=== PATIENT | female | born 1985 | race Hispanic/Latino ===

== ENCOUNTER 2017-07-26 15:32 | Emergency (ER) | payer OTHER ==
[2017-07-26 17:04] LABS: Urine Blood NEGATIVE (NEG); Urine Glucose NEGATIVE (NEG); Urine Protein NEGATIVE (NEG); Urine Specific Gravity 1.025 (1.005-1.030)
--- NOTE | 2017-07-26 18:16 | RAD REPORT ---
EXAM DESCRIPTION: US - Transvaginal OB - 07/26/2017 6:09 pm CLINICAL HISTORY: Pelvic pain, cramping. COMPARISON: 07/23/2017 FINDINGS: A single gestational sac is seen within the uterus. Within the sac is a single pole with crown-rump length measuring 4 mm corresponding to 6 weeks 1 day gestational age. GLORIA 03/20/2018 Cardiac activity is normal measuring 96 BPM. No unexpected findings. Normal Doppler flow is seen to both ovaries. IMPRESSION: Single live early intrauterine gestation as detailed above.
[2017-07-26 18:27] LABS: Absolute Lymphocytes (CBC) 2.6 K/uL (0.7-4.9); Absolute Monocytes 0.7 K/uL (0.1-1.3); Absolute Neutrophil 8.4 K/uL (1.8-8.0); Basophils % 0.3 % (0-1.3); Eosinophils % 1.4 % (0-4.4); Hematocrit 41.3 % (36.0-45.0); Lymphocytes % 21.8 % (15.3-44.8); MCV 91.1 fL (80-100); MPV 10.5 fL (7.6-11.3); Monocytes % 6.1 % (3.3-12.3); RBC Red Blood Cell Count 4.53 M/uL (3.86-4.86)
[2017-07-26 18:40] LABS: Bicarbonate 24 mEq/L (21-31); Glucose Level 96 mg/dL (65-120); Potassium 3.5 mEq/L (3.6-5.0); Sodium Level 132 mEq/L (135-145)
[2017-07-26 18:41] LABS: BUN Blood Urea Nitrogen 8 mg/dL (6-20)
--- NOTE | 2017-07-26 18:59 | EDPHYS ---
Physician Documentation [facility] Name: Snow Argueta Age: 31 yrs Sex: Female : 1985 Arrival Date: 07/26/2017 Time: 15:33 Bed 16 Private MD: Martín Crane B ED Physician Matthew Ramirez HPI: 07/26 20:14 This 31 yrs old Female presents to ER via Ambulatory with complaints of Pelvic snw Pain - 6 Wks Preg, Nausea/Vomiting. 20:14 The patient presents with + , + lower abdominal cramping. Onset: The snw symptoms/episode began/occurred gradually, 2 day(s) ago, and became persistent. Modifying factors: the symptoms are aggravated by nausea. Associated signs and symptoms: Pertinent positives: cramping, nausea. Severity of symptoms: At their worst the symptoms were moderate, severe. The patient has experienced a previous episode. The patient has been recently seen by a physician: Dr. Crane with different complaint(s). 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 - Social history:: Smoking status: Patient/guardian denies using tobacco. ROS: 20:13 Constitutional: Negative for fever, chills, and weight loss, Eyes: Negative for injury, snw pain, redness, and discharge, ENT: Negative for injury, pain, and discharge, Neck: Negative for injury, pain, and swelling, Cardiovascular: Negative for chest pain, palpitations, and edema, Respiratory: Negative for shortness of breath, cough, wheezing, and pleuritic chest pain, Back: Negative for injury and pain, : Negative for injury, bleeding, discharge, and swelling, MS/Extremity: Negative for injury and deformity, Skin: Negative for injury, rash, and discoloration, Neuro: Negative for headache, weakness, numbness, tingling, and seizure. 20:13 Abdomen/GI: Positive for nausea, abdominal cramps. Exam: 20:13 Constitutional: This is a well developed, well nourished patient who is awake, alert, snw and in no acute distress. Head/Face: Normocephalic, atraumatic. Eyes: Pupils equal round and reactive to light, extra-ocular motions intact. Lids and lashes normal. Conjunctiva and sclera are non-icteric and not injected. Cornea within normal limits. Periorbital areas with no swelling, redness, or edema. ENT: Nares patent. No nasal discharge, no septal abnormalities noted. Tympanic membranes are normal and external auditory canals are clear. Oropharynx with no redness, swelling, or masses, exudates, or evidence of obstruction, uvula midline. Mucous membranes moist. Neck: Trachea midline, no thyromegaly or masses palpated, and no cervical lymphadenopathy. Supple, full range of motion without nuchal rigidity, or vertebral point tenderness. No Meningismus. Chest/axilla: Normal chest wall appearance and motion. Nontender with no deformity. No lesions are appreciated. Cardiovascular: Regular rate and rhythm with a normal S1 and S2. No gallops, murmurs, or rubs. Normal PMI, no JVD. No pulse deficits. Respiratory: Lungs have equal breath sounds bilaterally, clear to auscultation and percussion. No rales, rhonchi or wheezes noted. No increased work of breathing, no retractions or nasal flaring. 20:13 Back: No spinal tenderness. No costovertebral tenderness. Full range of motion. Skin: Warm, dry with normal turgor. Normal color with no rashes, no lesions, and no evidence of cellulitis. MS/ Extremity: Pulses equal, no cyanosis. Neurovascular intact. Full, normal range of motion. Neuro: Awake and alert, GCS 15, oriented to person, place, time, and situation. Cranial nerves II-XII grossly intact. Motor strength 5/5 in all extremities. Sensory grossly intact. Cerebellar exam normal. Normal gait. 20:13 Abdomen/GI: Inspection: abdomen appears normal, Bowel sounds: normal, Palpation: abdomen is soft and non-tender. Vital Signs: 15:55 BP 154 / 87; Pulse 90; Resp 16; Temp 98.1; Pulse Ox 100% on R/A; Weight 96.16 kg; hb Height 5 ft. 6 in. (167.64 cm); Pain 7/10; 17:27 BP 138 / 82; Pulse 86; Resp 16; Pulse Ox 99% on R/A; rb1 18:53 BP 119 / 61; Pulse 83; Resp 17; Pulse Ox 100% ; rb1 15:55 Body Mass Index 34.22 (96.16 kg, 167.64 cm) hb MDM: 16:30 Patient medically screened. snw 17:35 ED course: to US via w/c. snw 20:13 Data reviewed: vital signs, nurses notes. Data interpreted: Pulse oximetry: on room air snw is 100 %. Interpretation: normal. 07/26 16:00 Order name: Urine Culture snw 07/26 16:00 Order name: Urine Microscopic Only; Complete Time: 19:19 snw 07/26 16:53 Order name: Urine Dipstick--Ancillary (enter results); Complete Time: 17:06 bd 07/26 16:53 Order name: Urine --Ancillary (enter results); Complete Time: 17:06 bd 07/26 17:13 Order name: Quantitative Hcg; Complete Time: 19:19 snw 07/26 17:13 Order name: Abo/rh Typing; Complete Time: 19:02 snw 07/26 16:00 Order name: Urine Test (obtain specimen); Complete Time: 16:53 snw 07/26 16:00 Order name: Urine Dipstick-Ancillary (obtain specimen); Complete Time: 16:53 snw 07/26 17:13 Order name: Basic Metabolic Panel; Complete Time: 19:19 snw 07/26 17:13 Order name: CBC with Diff; Complete Time: 18:35 snw 07/26 17:13 Order name: IV Saline Lock; Complete Time: 18:39 snw 07/26 17:13 Order name: US Transvaginal Ob; Complete Time: 18:21 snw 07/26 17:13 Order name: Labs collected and sent; Complete Time: 18:39 snw 07/26 17:13 Order name: NPO; Complete Time: 17:33 snw Administered Medications: 18:52 Drug: Phenergan 12.5 mg Route: IVP; Site: left antecubital; rb1 19:24 Follow up: Response: No adverse reaction; Medication administered at discharge. tl2 18:52 Drug: NS 0.9% 250 ml Route: IV; Rate: bolus; Site: left antecubital; rb1 19:24 Follow up: IV Status: Completed infusion tl2 Disposition: 07/27 07:04 Co-signature as Attending Physician, Matthew Ramirez MD. rn Disposition: 07/26/17 18:59 Discharged to Home. Impression: Nausea and vomiting, related conditions, unspecified. - Condition is Stable. - Discharge Instructions: Nausea and Vomiting, First Trimester of . - Prescriptions for promethazine 25 mg Oral Tablet - take 1 tablet by ORAL route every 6 hours As needed; 20 tablet. - Medication Reconciliation Form, Thank You Letter, Antibiotic Education, Prescription Opioid Use form. - Follow up: Martín Crane MD; When: 5 - 6 days; Reason: Recheck today's complaints, Continuance of care, Re-evaluation by your physician. Follow up: Emergency Department; When: As needed; Reason: Worsening of condition. Signatures: Dispatcher [employer] EDMO Carolina Farnsworth, DENTAL INSURANCE BILLER-C DENTAL INSURANCE BILLER-Csnw Matthew Ramirez MD MD rn Barber, Rebecca, RN RN rb1 Cyndi Ritchie RN RN Kathy Wilson RN RN tl2
--- NOTE | 2017-07-26 18:59 | ER ---
Nurse's Notes [facility] Name: Snow Argueta Age: 31 yrs Sex: Female : 1985 Arrival Date: 07/26/2017 Time: 15:33 Bed 16 Private MD: Martín Crane B Diagnosis: Nausea and vomiting; related conditions, unspecified Presentation: 07/26 15:51 Presenting complaint: Patient states: Lower abdominal cramping and N/V since yesterday. hb Denies vaginal bleeding/fever. Pt reports she is 6 weeks , had US done last week, possible miscarriage, due to have HCG level rechecked Friday. Transition of care: patient was not received from another setting of care. Onset of symptoms was July 25, 2017. Care prior to arrival: None. 15:51 Method Of Arrival: Ambulatory hb 15:51 Acuity: LEONEL 3 hb Triage Assessment: 16:30 GI: Reports cramping. 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 - Social history:: Smoking status: Patient/guardian denies using tobacco. Screenin:30 Abuse screen: Denies threats or abuse. Nutritional screening: No deficits noted. rb1 Tuberculosis screening: No symptoms or risk factors identified. Fall Risk None identified. Assessment: 16:30 General: Appears in no apparent distress. comfortable, Behavior is calm, cooperative, rb1 Denies fever. Pain: Complains of pain in suprapubic area Pain currently is 5 out of 10 on a pain scale. Quality of pain is described as crampy, Pain began 1 day ago. Neuro: Level of Consciousness is awake, alert, obeys commands, Oriented to person, place, time, situation. Cardiovascular: Capillary refill < 3 seconds is brisk in bilateral fingers. Respiratory: Airway is patent Respiratory effort is even, unlabored, Respiratory pattern is regular, symmetrical. GI: Abdomen is non-distended. : No signs and/or symptoms were reported regarding the genitourinary system. Derm: Skin is pink, warm \T\ dry. Musculoskeletal: Range of motion: intact in all extremities. 17:25 Reassessment: Patient appears in no apparent distress at this time. No changes from rb1 previously documented assessment. Pt. went to US. 19:09 Reassessment: Patient appears in no apparent distress at this time. Patient and/or tl2 family updated on plan of care and expected duration. Pain level reassessed. Patient is alert, oriented x 3, equal unlabored respirations, skin warm/dry/pink. Awaiting phenergan infusion to complete before discharge. Pt verbalized understanding of discharge instructions, need for follow up and prescription usage. Vital Signs: 15:55 BP 154 / 87; Pulse 90; Resp 16; Temp 98.1; Pulse Ox 100% on R/A; Weight 96.16 kg; hb Height 5 ft. 6 in. (167.64 cm); Pain 7/10; 17:27 BP 138 / 82; Pulse 86; Resp 16; Pulse Ox 99% on R/A; rb1 18:53 BP 119 / 61; Pulse 83; Resp 17; Pulse Ox 100% ; rb1 15:55 Body Mass Index 34.22 (96.16 kg, 167.64 cm) hb ED Course: 15:33 Patient arrived in ED. as 15:33 Martín Crane MD is Private Physician. as 15:51 Arm band placed on right wrist. hb 15:54 Triage completed. hb 16:30 Carolina Farnsworth FNP-C [facility]. snw 16:30 Matthew Ramirez MD is Attending Physician. snw 16:30 Patient has correct armband on for positive identification. Bed in low position. Call rb1 light in reach. Side rails up X 1. Pulse ox on. NIBP on. 16:42 Irlanda Canchola, RN is Primary Nurse. rb1 17:49 Ultrasound completed. Patient tolerated well. Notified PROCESS TECH/GERARD conley. sg3 17:54 Urine Microscopic Only Sent. rb1 17:57 Urine Culture Sent. rb1 18:58 Martín Crane MD is Referral Physician. snw 19:09 No provider procedures requiring assistance completed. IV is patent, is intact, with tl2 fluids infusing freely, 22 g L AC placed during previous shift. 19:24 IV discontinued, intact, bleeding controlled, No redness/swelling at site. Pressure tl2 dressing applied. Administered Medications: 18:52 Drug: Phenergan 12.5 mg Route: IVP; Site: left antecubital; rb1 19:24 Follow up: Response: No adverse reaction; Medication administered at discharge. tl2 18:52 Drug: NS 0.9% 250 ml Route: IV; Rate: bolus; Site: left antecubital; rb1 19:24 Follow up: IV Status: Completed infusion tl2 Outcome: 18:59 Discharge ordered by MD. szymanski 19:09 Discharged to home ambulatory, with family. tl2 19:09 Condition: stable 19:09 Discharge instructions given to patient, family, Instructed on discharge instructions, follow up and referral plans. medication usage, Demonstrated understanding of instructions, follow-up care, medications, Prescriptions given X 1. 19:24 Patient left the ED. tl2 Signatures: Dispatcher [employer] EDTX Carolina Farnsworth, PAYMENT ANALYST-C PAYMENT ANALYST-CsnDee Dee Sánchez Rebecca, RN RN rb1 Cyndi Ritchie, EBONIE RN Kathy Wilson RN RN tl2 Sabrina Tyler sg3 Corrections: (The following items were deleted from the chart) 18:25 18:09 In radiology for Transvaginal Ob+US.EMELI. PRANAYTX sg3
[2017-07-26 19:05] LABS: Urine Bacteria <20 /HPF (<20); Urine Culture Reflex Order NOT NEEDED; Urine Mucus NS /HPF (NONE SEEN); Urine RBC <5 /HPF (NONE SEEN)
[2017-07-26] MEDS ORDERED: PROMETHAZINE 25 MG/ML VIAL ONE (19:05)
[2017-07-26] MEDS ORDERED: NA CHLORIDE 0.9% 250 ML ONE (19:05)
[2017-07-26 19:28] VITALS: TEMP 98.1
[2017-07-26 19:30] VITALS: BP 119/61; O2SAT 100
== END 2017-07-26 19:24 | disposition home or self-care (01) ==
LOC: ER 15:32
DX: O21.9 Vomiting of pregnancy, unspecified (principal); Z3A.01 Less than 8 weeks gestation of pregnancy; Z88.1 Allergy status to other antibiotic agents; Z91.040 Latex allergy status; Z91.041 Radiographic dye allergy status; Z91.048 Other nonmedicinal substance allergy status
CPT/HCPCS: 36415; 76817; 80048; 81003; 81015; 81025; 84702; 85025; 86900; 86901; 87086; 87088; 96361; 96365; 96374; 96375; 99284; J2550

== ENCOUNTER 2017-08-17 22:36 | Emergency (ER) | payer OTHER ==
[2017-08-17] MEDS ORDERED: ACETAMINOPHEN 325 MG TABLET ONE (23:01)
[2017-08-17] MEDS ORDERED: NA CHLORIDE 0.9% 1,000 ML ONE (23:01)
[2017-08-17 23:18] LABS: Urine Blood NEGATIVE (NEG); Urine Glucose NEGATIVE (NEG); Urine Protein NEGATIVE (NEG); Urine Specific Gravity 1.015 (1.005-1.030)
[2017-08-17 23:41] LABS: Absolute Lymphocytes (CBC) 2.5 K/uL (0.7-4.9); Absolute Monocytes 0.7 K/uL (0.1-1.3); Basophils % 0.2 % (0-1.3); Hematocrit 38.5 % (36.0-45.0); MCH 30.6 pg (27.0-35.0); MCV 90.4 fL (80-100); MPV 10.9 fL (7.6-11.3); Monocytes % 5.9 % (3.3-12.3); RBC Red Blood Cell Count 4.26 M/uL (3.86-4.86)
[2017-08-17 23:52] LABS: Bicarbonate 23 mEq/L (21-31); Glucose Level 106 mg/dL (65-120); Potassium 3.4 mEq/L (3.6-5.0); Sodium Level 134 mEq/L (135-145)
[2017-08-17 23:53] LABS: BUN Blood Urea Nitrogen 11 mg/dL (6-20)
[2017-08-18] MEDS ORDERED: PROMETHAZINE 25 MG/ML VIAL ONE (00:29)
[2017-08-18] MEDS ORDERED: NA CHLORIDE 0.9% 500 ML ONE (00:29)
--- NOTE | 2017-08-18 01:10 | EDPHYS ---
Physician Documentation [facility] Name: Snow Argueta Age: 31 yrs Sex: Female : 1985 Arrival Date: 08/17/2017 Time: 22:36 Bed 14 Private MD: ED Physician Matthew Ramirez HPI: 08/18 01:06 This 31 yrs old Female presents to ER via Ambulatory with complaints of snw Headache. 01:06 The patient complains of pain to the left side of the back of head and left occipital snw area. The patient describes the headache as unrelenting, sudden. Onset: The symptoms/episode began/occurred suddenly. Associated signs and symptoms: Pertinent positives: dizziness. Severity of symptoms: At its worst the pain was severe, 2100. Headache History: The patient has had previous headaches and this one is different than previous episodes. The symptoms are alleviated by nothing. The patient has not experienced similar symptoms in the past. The patient has been recently seen by a physician: with different complaint(s), In November pt's Leukemia will be in remission for 5 yrs. Had oncology check up last week. 9 wks , N/V for 1 month. 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 Crane Historical: - Allergies: 22:51 Cephalexin; ak1 22:51 CONTRAST DYE; ak1 22:51 Latex, Natural Rubber; ak1 - Home Meds: 22:51 Nexium Oral [Active]; ak1 - PMHx: 22:51 GERD; Leukemia; Endometrosis; ak1 - PSHx: 22:51 laproscopic surgery for endometriosis; D \T\ C; Appendectomy; ak1 - Immunization history:: Adult Immunizations unknown. - Social history:: Smoking status: Patient/guardian denies using tobacco. ROS: 08/18 01:06 Constitutional: Negative for fever, chills, and weight loss, Eyes: Negative for injury, snw pain, redness, and discharge, ENT: Negative for injury, pain, and discharge, Neck: Negative for injury, pain, and swelling, Cardiovascular: Negative for chest pain, palpitations, and edema, Respiratory: Negative for shortness of breath, cough, wheezing, and pleuritic chest pain, Abdomen/GI: Negative for abdominal pain, nausea, vomiting, diarrhea, and constipation, Back: Negative for injury and pain, : Negative for injury, bleeding, discharge, and swelling, MS/Extremity: Negative for injury and deformity, Skin: Negative for injury, rash, and discoloration. Neuro: Positive for headache. Exam: 01:06 Constitutional: This is a well developed, well nourished patient who is awake, alert, snw and in no acute distress. Head/Face: Normocephalic, atraumatic. Eyes: Pupils equal round and reactive to light, extra-ocular motions intact. Lids and lashes normal. Conjunctiva and sclera are non-icteric and not injected. Cornea within normal limits. Periorbital areas with no swelling, redness, or edema. ENT: Nares patent. No nasal discharge, no septal abnormalities noted. Tympanic membranes are normal and external auditory canals are clear. Oropharynx with no redness, swelling, or masses, exudates, or evidence of obstruction, uvula midline. Mucous membranes moist. Neck: Trachea midline, no thyromegaly or masses palpated, and no cervical lymphadenopathy. Supple, full range of motion without nuchal rigidity, or vertebral point tenderness. No Meningismus. Chest/axilla: Normal chest wall appearance and motion. Nontender with no deformity. No lesions are appreciated. Cardiovascular: Regular rate and rhythm with a normal S1 and S2. No gallops, murmurs, or rubs. Normal PMI, no JVD. No pulse deficits. Respiratory: Lungs have equal breath sounds bilaterally, clear to auscultation and percussion. No rales, rhonchi or wheezes noted. No increased work of breathing, no retractions or nasal flaring. Abdomen/GI: Soft, non-tender, with normal bowel sounds. No distension or tympany. No guarding or rebound. No evidence of tenderness throughout. Back: No spinal tenderness. No costovertebral tenderness. Full range of motion. Skin: Warm, dry with normal turgor. Normal color with no rashes, no lesions, and no evidence of cellulitis. MS/ Extremity: Pulses equal, no cyanosis. Neurovascular intact. Full, normal range of motion. Neuro: Awake and alert, GCS 15, oriented to person, place, time, and situation. Cranial nerves II-XII grossly intact. Motor strength 5/5 in all extremities. Sensory grossly intact. Cerebellar exam normal. Normal gait. Vital Signs: 08/17 22:47 BP 131 / 75; Pulse 84; Resp 18; Temp 98.3(O); Pulse Ox 100% on R/A; Weight 97.52 kg ak1 (R); Height 5 ft. 6 in. (167.64 cm) (R); Pain 9/10; 23:51 BP 124 / 72; Pulse 82; Resp 16; Temp 98.3(O); Pulse Ox 100% on R/A; Pain 7/10; ak1 22:47 Body Mass Index 34.70 (97.52 kg, 167.64 cm) ak1 Kameron Coma Score: 08/18 01:06 Eye Response: spontaneous(4). Verbal Response: oriented(5). Motor Response: obeys snw commands(6). Total: 15. MDM: 08/17 22:43 Patient medically screened. snw 08/18 01:06 Data reviewed: vital signs, nurses notes. Data interpreted: Pulse oximetry: on room air snw is 100 %. Interpretation: normal. Counseling: I had a detailed discussion with the patient and/or guardian regarding: the historical points, exam findings, and any diagnostic results supporting the discharge/admit diagnosis, lab results, the need for outpatient follow up, to return to the emergency department if symptoms worsen or persist or if there are any questions or concerns that arise at home. Response to treatment: the patient's symptoms have resolved after treatment, the patient's blood pressure is in an acceptable range, the patient's pain is gone. Special discussion: Based on the history and exam findings, there is no indication for further emergent testing or inpatient evaluation. I discussed with the patient/guardian the need to see the OB Gyne specialist for further evaluation of the symptoms. I discussed with the patient/guardian the need to see the primary care provider for further evaluation of the symptoms. 08/17 22:58 Order name: CBC with Diff; Complete Time: 23:59 snw 08/17 22:58 Order name: Chem 7; Complete Time: 23:59 snw 08/17 22:59 Order name: Urine Dipstick--Ancillary (enter results) rg2 08/17 22:59 Order name: Urine --Ancillary (enter results) rg2 Administered Medications: 08/17 23:12 Drug: NS 0.9% 1000 ml Route: IV; Rate: 1 bolus; Site: right antecubital; ak1 08/18 00:09 Follow up: IV Status: Completed infusion ak1 08/17 23:12 Drug: Tylenol 650 mg Route: PO; ak1 08/18 00:09 Follow up: Response: No adverse reaction; Pain is decreased ak1 00:35 Drug: NS 0.9% 500 ml Route: IV; Rate: bolus; Site: right antecubital; ak1 01:04 Follow up: IV Status: Completed infusion ak1 00:35 Drug: Phenergan 25 mg {Note: placed in 500NS bolus per verbal orders.} Route: IVP; ak1 Site: right antecubital; 01:04 Follow up: Response: No adverse reaction; Pain is decreased ak1 Disposition: 02:39 Co-signature as Attending Physician, Matthew Ramirez MD. rn Disposition: 08/18/17 01:10 Discharged to Home. Impression: Headache. - Condition is Stable. - Discharge Instructions: General Headache Without Cause, Rehydration, Adult. - Prescriptions for promethazine 25 mg Oral Tablet - take 1 tablet by ORAL route every 6 hours As needed; 8 tablet. - Medication Reconciliation Form, Thank You Letter, Antibiotic Education, Prescription Opioid Use form. - Follow up: Private Physician; When: 2 - 3 days; Reason: Recheck today's complaints, Continuance of care, Re-evaluation by your physician. Follow up: Emergency Department; When: As needed; Reason: Worsening of condition. Signatures: Dispatcher [employer] EDCarolina Lim, TIFFANIE-C CRUDE TESTER-Csnw Matthew Ramirez MD MD rn Krenek, Amber, RN RN ak1
--- NOTE | 2017-08-18 01:10 | ER ---
Nurse's Notes [facility] Name: Snow Argueta Age: 31 yrs Sex: Female : 1985 Arrival Date: 08/17/2017 Time: 22:36 Bed 14 Private MD: Diagnosis: Headache Presentation: 08/17 22:48 Presenting complaint: Patient states: headache to back of head since 2100 tonight. pt ak1 c/o increased urination. pt c/o N/V the last month due to being 9 weeks . Transition of care: patient was not received from another setting of care. Onset of symptoms was August 17, 2017. Initial Sepsis Screen: Does the patient meet any 2 criteria? No. Patient's initial sepsis screen is negative. Does the patient have a suspected source of infection? No. Patient's initial sepsis screen is negative. Care prior to arrival: None. 22:48 Method Of Arrival: Ambulatory ak1 22:48 Acuity: LEONEL 4 ak1 Triage Assessment: 22:51 Headache History: Denies prior headaches. General: Appears in no apparent distress. ak1 Behavior is calm, cooperative. Pain: Complains of pain in occipital area Pain currently is 9 out of 10 on a pain scale. Pain began 2 hours ago. Also complains of no other associated symptoms. EENT: No signs and/or symptoms were reported regarding the EENT system. Neuro: Level of Consciousness is awake, alert, obeys commands, Oriented to person, place, time, situation, Inventory Specialist Manager are equal bilaterally Moves all extremities. Gait is steady, Speech is normal, Facial symmetry appears normal. Cardiovascular: No deficits noted. Respiratory: No deficits noted. GI: No signs and/or symptoms were reported involving the gastrointestinal system. : Reports urinary frequency. Derm: No signs and/or symptoms reported regarding the dermatologic system. Musculoskeletal: No signs and/or symptoms reported regarding the musculoskeletal system. 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 Crane Historical: - Allergies: 22:51 Cephalexin; ak1 22:51 CONTRAST DYE; ak1 22:51 Latex, Natural Rubber; ak1 - Home Meds: 22:51 Nexium Oral [Active]; ak1 - PMHx: 22:51 GERD; Leukemia; Endometrosis; ak1 - PSHx: 22:51 laproscopic surgery for endometriosis; D \T\ C; Appendectomy; ak1 - Immunization history:: Adult Immunizations unknown. - Social history:: Smoking status: Patient/guardian denies using tobacco. Screenin:52 Abuse screen: Denies threats or abuse. Denies injuries from another. Nutritional ak1 screening: No deficits noted. Tuberculosis screening: No symptoms or risk factors identified. Fall Risk None identified. Assessment: 23:13 Reassessment: Patient appears in no apparent distress at this time. No changes from ak1 previously documented assessment. Patient is alert, oriented x 3, equal unlabored respirations, skin warm/dry/pink. see triage assessment. 08/18 00:09 Reassessment: Patient appears in no apparent distress at this time. No changes from ak1 previously documented assessment. Patient is alert, oriented x 3, equal unlabored respirations, skin warm/dry/pink. Patient states symptoms have improved. 01:05 Reassessment: Patient appears in no apparent distress at this time. Patient is alert, ak1 oriented x 3, equal unlabored respirations, skin warm/dry/pink. ERP notified pt stated pain has resolved. Patient denies pain at this time. Patient states symptoms have improved. Vital Signs: 08/17 22:47 BP 131 / 75; Pulse 84; Resp 18; Temp 98.3(O); Pulse Ox 100% on R/A; Weight 97.52 kg ak1 (R); Height 5 ft. 6 in. (167.64 cm) (R); Pain 9/10; 23:51 BP 124 / 72; Pulse 82; Resp 16; Temp 98.3(O); Pulse Ox 100% on R/A; Pain 7/10; ak1 22:47 Body Mass Index 34.70 (97.52 kg, 167.64 cm) ak1 Dumas Coma Score: 08/18 01:06 Eye Response: spontaneous(4). Verbal Response: oriented(5). Motor Response: obeys snw commands(6). Total: 15. ED Course: 08/17 22:36 Patient arrived in ED. ds1 22:43 Carolina Farnsworth FNP-C [facility]. snw 22:43 Matthew Ramirez MD is Attending Physician. snw 22:47 Luz Chopra, RN is Primary Nurse. ak1 22:49 Triage completed. ak1 22:52 Patient has correct armband on for positive identification. Bed in low position. Call ak1 light in reach. Side rails up X 1. Pulse ox on. NIBP on. 22:53 Arm band placed on Patient placed in an exam room, on a stretcher, on pulse oximetry, ak1 Patient notified of wait time. 23:13 Inserted saline lock: 20 gauge in right antecubital area, using aseptic technique. ak1 Blood collected. 08/18 00:11 No provider procedures requiring assistance completed. ak1 01:18 IV discontinued, intact, bleeding controlled, No redness/swelling at site. Pressure ak1 dressing applied. Administered Medications: 08/17 23:12 Drug: NS 0.9% 1000 ml Route: IV; Rate: 1 bolus; Site: right antecubital; ak1 08/18 00:09 Follow up: IV Status: Completed infusion ak1 08/17 23:12 Drug: Tylenol 650 mg Route: PO; ak1 08/18 00:09 Follow up: Response: No adverse reaction; Pain is decreased ak1 00:35 Drug: NS 0.9% 500 ml Route: IV; Rate: bolus; Site: right antecubital; ak1 01:04 Follow up: IV Status: Completed infusion ak1 00:35 Drug: Phenergan 25 mg {Note: placed in 500NS bolus per verbal orders.} Route: IVP; ak1 Site: right antecubital; 01:04 Follow up: Response: No adverse reaction; Pain is decreased ak1 Outcome: 01:04 Condition: improved ak1 01:10 Discharge ordered by . snw 01:18 Discharged to home ambulatory, with family. ak1 01:18 Discharge instructions given to patient, family, Instructed on discharge instructions, follow up and referral plans. no drinking with medication, no driving heavy equipment, medication usage, Demonstrated understanding of instructions, follow-up care, medications, Prescriptions given X 1. 01:19 Patient left the ED. ak1 Signatures: Carolina Farnsworth, TELECOMMUNICATIONS CONSULTANT-C TELECOMMUNICATIONS CONSULTANT-Csnw Toya Powers ds1 Luz Chopra, RN RN ak1
[2017-08-18 01:32] VITALS: TEMP 98.3; O2SAT 100
[2017-08-18 01:34] VITALS: BP 124/72
== END 2017-08-18 01:19 | disposition home or self-care (01) ==
LOC: ER 22:36
DX: R51 Headache (principal); Z33.1 Pregnant state, incidental
CPT/HCPCS: 36415; 80048; 81003; 81025; 85025; 96361; 96374; 99284; J2550; J7030

== ENCOUNTER 2017-12-05 20:51 | Emergency (ER) | payer OTHER ==
[2017-12-05 21:47] LABS: Absolute Lymphocytes (CBC) 1.7 K/uL (0.7-4.9); Absolute Monocytes 0.8 K/uL (0.1-1.3); Absolute Neutrophil 9.3 K/uL (1.8-8.0); Basophils % 0.2 % (0-1.3); Eosinophils % 2.1 % (0-4.4); Hematocrit 33.5 % (36.0-45.0); Lymphocytes % 13.7 % (15.3-44.8); MCH 31.6 pg (27.0-35.0); MCV 90.6 fL (80-100); MPV 10.2 fL (7.6-11.3); Monocytes % 6.5 % (3.3-12.3); RBC Red Blood Cell Count 3.69 M/uL (3.86-4.86)
[2017-12-05 21:57] LABS: Urine Blood NEGATIVE (NEG); Urine Glucose NEGATIVE (NEG); Urine Protein NEGATIVE (NEG); Urine pH 6.5 (5.0-7.0)
[2017-12-05 22:10] LABS: ALT/SGPT 15 U/L (12-78); AST/SGOT 12 U/L (15-37); Albumin 2.7 g/dL (3.4-5.0); Alkaline Phosphatase 89 U/L (45-117); BUN Blood Urea Nitrogen 4 mg/dL (7-18); Bicarbonate 25 mmol/L (21-32); Bilirubin Total 0.3 mg/dL (0.2-1.0); Glucose Level 112 mg/dL (74-106); Potassium 3.5 mmol/L (3.5-5.1); Protein, Total 6.3 g/dL (6.4-8.2); Sodium Level 138 mmol/L (136-145)
[2017-12-05] MEDS ORDERED: NA CHLORIDE 0.9% 1,000 ML ONE (22:12)
--- NOTE | 2017-12-05 22:41 | RAD REPORT ---
EXAM DESCRIPTION: RAD - Chest Single View - 12/05/2017 9:42 pm CLINICAL HISTORY: Cough COMPARISON: October 2016 TECHNIQUE: AP portable chest image was obtained 2135 hours . FINDINGS: Lungs are clear. Heart and vasculature are normal. No measurable pleural effusion and no p neumothorax. No gross bony abnormality seen. No acute aortic findings suspected. IMPRESSION: No acute cardiopulmonary process. No significant interval change.
--- NOTE | 2017-12-05 23:03 | ER ---
Nurse's Notes [facility] Name: Snow Argueta Age: 32 yrs Sex: Female : 1985 Arrival Date: 12/05/2017 Time: 20:53 Bed 7 Private MD: Diagnosis: Acute upper respiratory infection, unspecified;Cough; related conditions, unspecified, second trimester; related conditions, unspecified, third trimester Presentation: 12/05 21:00 Presenting complaint: Patient states: fever, cough, congestion since Friday, feeling la1 SOB today. 25 wks , cleared by OB OB SCRUB TECH. Transition of care: patient was not received from another setting of care. Onset of symptoms was December 05, 2017. Risk Assessment: Do you want to hurt yourself or someone else? Patient reports no desire to harm self or others. Initial Sepsis Screen: Does the patient meet any 2 criteria? No. Patient's initial sepsis screen is negative. Does the patient have a suspected source of infection? No. Patient's initial sepsis screen is negative. Care prior to arrival: None. 21:00 Method Of Arrival: Ambulatory la1 21:00 Acuity: LEONEL 3 la1 Historical: - Allergies: 21:01 Cephalexin; la1 21:01 CONTRAST DYE; la1 21:01 Latex, Natural Rubber; la1 - PMHx: 21:01 Endometrosis; GERD; Leukemia; la1 - Immunization history:: Adult Immunizations up to date. - Social history:: Smoking status: Patient/guardian denies using tobacco. - Ebola Screening: : No symptoms or risks identified at this time. - Family history:: pertinent for. Screenin:28 Abuse screen: Denies threats or abuse. Nutritional screening: No deficits noted. tl2 Tuberculosis screening: No symptoms or risk factors identified. Fall Risk None identified. Assessment: 21:15 General: Appears in no apparent distress. uncomfortable, Behavior is calm, cooperative, tl2 appropriate for age. General: Pt reports starting to feel sick 1 hour after glucose test 3 days ago. OB gave her medicine for nausea and vomiting but cough and congestion has continued and she feels like she has the flu. Pain: Denies pain. Neuro: Level of Consciousness is awake, alert, obeys commands, Oriented to person, place, time, situation. Cardiovascular: Denies chest pain, Heart tones S1 S2 present. Respiratory: Reports shortness of breath cough that is hacking, Airway is patent Respiratory effort is even, unlabored, Respiratory pattern is regular, symmetrical, Breath sounds are clear bilaterally. GI: Reports nausea, vomiting. : Denies vaginal bleeding. Derm: Skin is pink, warm \T\ dry. 22:28 Reassessment: Patient appears in no apparent distress at this time. Patient and/or tl2 family updated on plan of care and expected duration. Pain level reassessed. Patient is alert, oriented x 3, equal unlabored respirations, skin warm/dry/pink. Awaiting results. 23:30 Reassessment: Patient appears in no apparent distress at this time. Patient is alert, aa1 oriented x 3, equal unlabored respirations, skin warm/dry/pink. Discussed d/c \T\ f/u instructions with pt; denies questions or concerns at this time. Vital Signs: 21:01 BP 121 / 70; Pulse 93; Resp 16; Temp 97.6(TE); Pulse Ox 99% on R/A; Weight 91.63 kg; la1 Height 5 ft. 6 in. (167.64 cm); 22:24 BP 109 / 59; Pulse 91; Resp 18; Pulse Ox 97% on R/A; tl2 23:30 BP 112 / 72; Pulse 93; Resp 16; Pulse Ox 100% on R/A; aa1 21:01 Body Mass Index 32.60 (91.63 kg, 167.64 cm) la1 Vitals: 22:24 Heart Tones 145. tl2 ED Course: 20:53 Patient arrived in ED. ds1 21:01 Triage completed. la1 21:02 Arm band placed on left wrist. la1 21:15 Rustam Aguirre MD is Attending Physician. lisandra 21:36 Inserted saline lock: 20 gauge in left antecubital area, using aseptic technique. Blood tl2 collected. 21:41 X-ray completed. Portable x-ray completed in exam room. Patient tolerated procedure bb2 well. 21:42 Chest Single View XRAY In Process Unspecified. EDMS 22:24 Kathy Wilson RN is Primary Nurse. tl2 22:28 Patient has correct armband on for positive identification. Bed in low position. Call tl2 light in reach. Side rails up X 1. 23:30 No provider procedures requiring assistance completed. IV discontinued, intact, aa1 bleeding controlled, No redness/swelling at site. Pressure dressing applied. Administered Medications: 22:25 Drug: NS 0.9% 1000 ml Route: IV; Rate: 1 bolus; Site: left antecubital; tl2 23:29 Follow up: IV Status: Completed infusion aa1 23:28 Drug: Zithromax 500 mg Route: PO; aa1 23:28 Follow up: Response: No adverse reaction; Medication administered at discharge. aa1 Outcome: 23:03 Discharge ordered by . lisandra 23:30 Discharged to home ambulatory. aa1 23:30 Condition: good 23:30 Discharge instructions given to patient, Instructed on discharge instructions, follow up and referral plans. medication usage, Demonstrated understanding of instructions, follow-up care, medications, Prescriptions given X 2. 23:32 Patient left the ED. aa1 Signatures: Dispatcher [employer] EDMS Olivia Leon RN RN aa1 Rustam Aguirre MD MD cha Sanford, Demi ds1 Tung Ngo RN RN la1 Kathy Wilson RN RN tl2 Shelley Benavides2
--- NOTE | 2017-12-05 23:04 | EDPHYS ---
Physician Documentation [facility] Name: Snow Argueta Age: 32 yrs Sex: Female : 1985 Arrival Date: 12/05/2017 Time: 20:53 Bed 7 Private MD: ED Physician Rustam Aguirre HPI: 12/05 22:58 This 32 yrs old Female presents to ER via Ambulatory with complaints of Flu lisandra Symptoms - 25 Wks Preg. 22:58 The patient or guardian reports cough. Onset: The symptoms/episode began/occurred 3 lisandra day(s) ago. Modifying factors: The symptoms are alleviated by nothing. the symptoms are aggravated by activity, lying flat. The patient or guardian reports airway noise, flu symptoms, arthralgias, low-grade fever. Onset: The symptoms/episode began/occurred yesterday. Severity of symptoms: At their worst the symptoms were mild, in the emergency department the symptoms are unchanged. Associated signs and symptoms: Pertinent positives: chest pain, sore throat. Modifying factors: The symptoms are alleviated by nothing, the symptoms are aggravated by nothing. Severity of symptoms: At their worst the symptoms were mild in the emergency department the symptoms are unchanged. Associated signs and symptoms: The patient has no apparent associated signs or symptoms. Historical: - Allergies: 21:01 Cephalexin; la1 21:01 CONTRAST DYE; la1 21:01 Latex, Natural Rubber; la1 - PMHx: 21:01 Endometrosis; GERD; Leukemia; la1 - Immunization history:: Adult Immunizations up to date. - Social history:: Smoking status: Patient/guardian denies using tobacco. - Ebola Screening: : No symptoms or risks identified at this time. - Family history:: pertinent for. ROS: 22:58 Constitutional: Negative for fever, chills, and weight loss, Eyes: Negative for injury, lisandra pain, redness, and discharge, ENT: Negative for injury, pain, and discharge, Neck: Negative for injury, pain, and swelling, Cardiovascular: Negative for chest pain, palpitations, and edema, Back: Negative for injury and pain, : Negative for injury, bleeding, discharge, and swelling, MS/Extremity: Negative for injury and deformity, Skin: Negative for injury, rash, and discoloration, Neuro: Negative for headache, weakness, numbness, tingling, and seizure. 22:58 Respiratory: Positive for cough. 22:58 Abdomen/GI: Positive for abdominal distension. Exam: 22:58 Constitutional: This is a well developed, well nourished patient who is awake, alert, lisandra and in no acute distress. Head/Face: Normocephalic, atraumatic. Eyes: Pupils equal round and reactive to light, extra-ocular motions intact. Lids and lashes normal. Conjunctiva and sclera are non-icteric and not injected. Cornea within normal limits. Periorbital areas with no swelling, redness, or edema. ENT: Nares patent. No nasal discharge, no septal abnormalities noted. Tympanic membranes are normal and external auditory canals are clear. Oropharynx with no redness, swelling, or masses, exudates, or evidence of obstruction, uvula midline. Mucous membranes moist. Neck: Trachea midline, no thyromegaly or masses palpated, and no cervical lymphadenopathy. Supple, full range of motion without nuchal rigidity, or vertebral point tenderness. No Meningismus. Chest/axilla: Normal chest wall appearance and motion. Nontender with no deformity. No lesions are appreciated. Cardiovascular: Regular rate and rhythm with a normal S1 and S2. No gallops, murmurs, or rubs. Normal PMI, no JVD. No pulse deficits. Respiratory: Lungs have equal breath sounds bilaterally, clear to auscultation and percussion. No rales, rhonchi or wheezes noted. No increased work of breathing, no retractions or nasal flaring. Back: No spinal tenderness. No costovertebral tenderness. Full range of motion. Skin: Warm, dry with normal turgor. Normal color with no rashes, no lesions, and no evidence of cellulitis. MS/ Extremity: Pulses equal, no cyanosis. Neurovascular intact. Full, normal range of motion. Neuro: Awake and alert, GCS 15, oriented to person, place, time, and situation. Cranial nerves II-XII grossly intact. Motor strength 5/5 in all extremities. Sensory grossly intact. Cerebellar exam normal. Normal gait. Psych: Awake, alert, with orientation to person, place and time. Behavior, mood, and affect are within normal limits. 22:58 Abdomen/GI: Inspection: gravid appearance, is noted, Bowel sounds: normal, Palpation: abdomen is soft and non-tender, Liver: no appreciated palpable abnormalities, Hernia: not appreciated. Vital Signs: 21:01 BP 121 / 70; Pulse 93; Resp 16; Temp 97.6(TE); Pulse Ox 99% on R/A; Weight 91.63 kg; la1 Height 5 ft. 6 in. (167.64 cm); 22:24 BP 109 / 59; Pulse 91; Resp 18; Pulse Ox 97% on R/A; tl2 23:30 BP 112 / 72; Pulse 93; Resp 16; Pulse Ox 100% on R/A; aa1 21:01 Body Mass Index 32.60 (91.63 kg, 167.64 cm) la1 MDM: 21:15 Patient medically screened. [facility] 22:58 Data reviewed: vital signs, nurses notes, lab test result(s), radiologic studies, plain lisandra films. 12/05 21:18 Order name: CBC with Diff; Complete Time: 22:56 [facility] 12/05 21:18 Order name: Comprehensive Metabolic Panel; Complete Time: 22:56 [facility] 12/05 21:18 Order name: Blood Culture Adult (2) [facility] 12/05 21:18 Order name: Urine Culture [facility] 12/05 21:18 Order name: Flu; Complete Time: 22:56 [facility] 12/05 21:43 Order name: Urine Dipstick--Ancillary (enter results); Complete Time: 22:56 rg2 12/05 21:18 Order name: Urine Dipstick-Ancillary (obtain specimen); Complete Time: 21:36 [facility] 12/05 21:18 Order name: Chest Single View XRAY; Complete Time: 22:56 [facility] 12/05 21:18 Order name: FHT's; Complete Time: 22:25 [facility] 12/05 21:43 Order name: Urine --Ancillary (enter results); Complete Time: 22:56 rg2 Administered Medications: 22:25 Drug: NS 0.9% 1000 ml Route: IV; Rate: 1 bolus; Site: left antecubital; tl2 23:29 Follow up: IV Status: Completed infusion aa1 23:28 Drug: Zithromax 500 mg Route: PO; aa1 23:28 Follow up: Response: No adverse reaction; Medication administered at discharge. aa1 Disposition: 12/05/17 23:03 Discharged to Home. Impression: Acute upper respiratory infection, unspecified, Cough, related conditions, unspecified, second trimester, related conditions, unspecified, third trimester. - Condition is Stable. - Discharge Instructions: Upper Respiratory Infection, Adult, Cool Mist Vaporizer, Upper Respiratory Infection, Adult, Kbyg-in-Tesh, Cough, Adult, Jqaa-wm-Oegi, Cough, Adult, Second Trimester of , Qreb-re-Hcqv. - Prescriptions for Zithromax Z- Joby 250 mg Oral Tablet - take 1 tablet by ORAL route as directed for 5 days Day 1 - take two (2) tablets one time. Day 2, 3, 4 , 5 take one (1) tablet once daily.; 6 tablet. - Medication Reconciliation Form, Thank You Letter, Antibiotic Education, Prescription Opioid Use form. - Follow up: Private Physician; When: 2 - 3 days; Reason: Recheck today's complaints, Continuance of care, Re-evaluation by your physician. - Problem is new. - Symptoms have improved. Signatures: Dispatcher [employer] EDMS Olivia Leon RN RN aa1 Rustam Aguirre MD MD cha Attema, Lee RN RN la1 Kathy Wilson RN RN tl2 Corrections: (The following items were deleted from the chart) 23:32 23:03 12/05/2017 23:03 Discharged to Home. Impression: Acute upper respiratory aa1 infection, unspecified; Cough; related conditions, unspecified, second trimester; related conditions, unspecified, third trimester. Condition is Stable. Forms are Medication Reconciliation Form, Thank You Letter, Antibiotic Education, Prescription Opioid Use. Follow up: Private Physician; When: 2 - 3 days; Reason: Recheck today's complaints, Continuance of care, Re-evaluation by your physician. Problem is new. Symptoms have improved. lisandra
[2017-12-05] MEDS ORDERED: AZITHROMYCIN 250 MG TAB ONE (23:25)
[2017-12-05 23:58] VITALS: TEMP 97.6
[2017-12-06 00:16] VITALS: BP 112/72; O2SAT 100
== END 2017-12-05 23:32 | disposition home or self-care (01) ==
LOC: ER 20:51
DX: J06.9 Acute upper respiratory infection, unspecified (principal); Z3A.25 25 weeks gestation of pregnancy; Z85.6 Personal history of leukemia; Z88.1 Allergy status to other antibiotic agents; Z91.040 Latex allergy status; Z91.041 Radiographic dye allergy status; Z91.048 Other nonmedicinal substance allergy status
CPT/HCPCS: 36415; 71045; 80053; 81003; 81025; 85025; 87040; 87086; 87088; 87804; 96360; 99284; J7030

== ENCOUNTER 2018-03-11 04:40 | Inpatient (IN) | payer OTHER ==
[2018-03-11] MEDS ORDERED: METHYLERGONOVINE 0.2MG/ML AMP IM PRN (04:43)
[2018-03-11] MEDS ORDERED: MEPERIDINE HCL 25 MG/0.5 ML IV PRN (04:43)
[2018-03-11] MEDS ORDERED: BUTORPHANOL 1 MG/ML INJ IV PRN (04:43)
[2018-03-11] MEDS ORDERED: Ringers Lactate 1,000 ML IV PRN (04:43)
[2018-03-11] MEDS ORDERED: PENICILLIN 5 MU in NA CHLORIDE 0.9% 100 ML IV ONE (04:43)
[2018-03-11] MEDS ORDERED: PROMETHAZINE 25 MG/ML VIAL IM PRN (04:43)
[2018-03-11] MEDS ORDERED: CARBOPROST TROME 250 MCG/ML IM PRN (04:43)
[2018-03-11] MEDS ORDERED: OXYTOCIN/LR 20 UNIT/1,000 ML BAG IV SCH (05:00)
[2018-03-11] MEDS ORDERED: Ringers Lactate 1,000 ML IV SCH (05:00)
[2018-03-11 05:13] LABS: RPR Titer ND
[2018-03-11 05:17] LABS: Urine Appearance CLOUDY; Urine Blood 2+ (NEG); Urine Color DK YELLOW; Urine Glucose NEGATIVE (NEG); Urine Protein TRACE (NEG)
[2018-03-11 05:18] LABS: Absolute Monocytes 0.8 K/uL (0.1-1.3); Absolute Neutrophil 6.8 K/uL (1.8-8.0); Basophils % 0.2 % (0-1.3); Eosinophils % 0.6 % (0-4.4); Hematocrit 28.8 % (36.0-45.0); Lymphocytes % 20.8 % (15.3-44.8); MCH 27.3 pg (27.0-35.0); MCV 80.8 fL (80-100); MPV 9.6 fL (7.6-11.3); Monocytes % 7.9 % (3.3-12.3); RBC Red Blood Cell Count 3.56 M/uL (3.86-4.86)
[2018-03-11] MEDS ORDERED: PENICILLIN G POT 5 MU/100 ML BAG IV ONE ×2 (05:18→17:27)
[2018-03-11 05:22] LABS: Urine Microscopic Reflex ORDER UMIC
[2018-03-11 05:27] LABS: Urine Bilirubin NEGATIVE (NEG)
[2018-03-11 05:44] VITALS: BMI 34.5
[2018-03-11 06:30] LABS: Calcium Oxalate Crystals- Ur MODERATE (NONE SEEN); Urine Bacteria >50 /HPF (<20); Urine Culture Reflex Order REFLEXED; Urine Mucus 2+ /HPF (NONE SEEN); Urine RBC <5 /HPF (NONE SEEN)
[2018-03-11] MEDS ORDERED: PENICILLIN 2.5 MU in NA CHLORIDE 0.9% 100 ML IV SCH (09:00)
[2018-03-11] MEDS ORDERED: FENTANYL CITR 100 MCG/2 ML IV ONE (09:15)
[2018-03-11] MEDS ORDERED: ROPIVACAINE HCL 100 ML IV PRN (09:15)
[2018-03-11] MEDS ORDERED: ROPIVACAINE HCL 2 MG/ML 100ML IV ONE (09:16)
[2018-03-11] MEDS ORDERED: ROPIVACAINE HCL 20 ML ONE (09:35)
[2018-03-11] MEDS ORDERED: LIDOCAINE 1% MPF 30 ML VIAL ONE (11:16)
--- NOTE | 2018-03-11 11:16 | PREOPHP ---
Date of Admission: 03/11/2018 A 32-year-old, 6, para 3, history of leukemia, now in remission. The patient is by best dipti mates 40 weeks today. She has had numerous ultrasounds, not sure of her dates, but we are estimating that she is at 40 weeks. The patient is 2.5 to 3 cm, vertex, well applied, ivan regularly, r upture of membranes, clear fluid. She has a history of beta strep in the first baby, therefore, peni cillin prophylaxis has already been started. She is Rh positive and immune to Rubella. Full labor t alk given. If the patient delivers expeditiously, we will try to do her tubal today; if not, then to trent morning. The patient will be requesting epidural anesthesia, but we try to get her little bit further along in the labor before that is instituted. Full discussion with the patient. MARISSA/JOSE ELIAS Voice ID: [id number]
[2018-03-11] MEDS ORDERED: LIDOCAINE 2% W/EPI 1:200,000 MPF 20 ML VIAL IM ONE (12:19)
[2018-03-11] MEDS ORDERED: MIDAZOLAM HCL 2 MG/2 ML INJ ONE ×2 (12:46→12:53)
[2018-03-11] MEDS: KETOROLAC 30 MG/ML INJ IV PRN ×2 (15:03→22:58)
--- NOTE | 2018-03-11 18:52 | RAD REPORT ---
EXAM DESCRIPTION: US - Extremity Venous Uni Ltd - 03/11/2018 6:32 pm CLINICAL HISTORY: rule out DVT Leg swelling and edema. COMPARISON: EXT VENOUS UNI LTD dated 10/26/2013 FINDINGS: Left lower extremity venous system was interrogated with Doppler technique. Normal flow, c ompressibility and augmentation was noted. There is no DVT present. IMPRESSION: No evidence of left lower extremity deep venous thrombosis.
[2018-03-11] MEDS ORDERED: ACETAMINOPHEN 500 MG TAB PO PRN (20:50)
[2018-03-11] MEDS ORDERED: IBUPROFEN 200 MG TAB PO PRN (20:50)
[2018-03-11] MEDS ORDERED: DOCUSATE NA/SENNA CONC 1 TAB PO PRN (20:50)
[2018-03-11] MEDS: Oxycodone HCl/Acetaminophen 1 TAB TAB PO PRN (21:06)
--- NOTE | 2018-03-11 22:34 | OP ---
Surgeon: Martín Crane MD This 32-year-old, 6, para 3, 40 weeks' gestation, history of leukemia, now in remission, Rh p ositive, immune to Rubella, positive strep baby with the first , 2.5 to 3 cm on admission, c ontracting regularly, rupture of membranes, clear fluid. The patient received 2 penicillin doses dur ing the labor. After receiving her epidural at 3.5 to 4, went rapidly to complete, second stage of 5 minutes or less. Spontaneous vaginal delivery of an estimated 9-pound male , Apgars 9 and 10. Very loose nuchal cord x1. No episiotomies. No lacerations worthy of suturing. Schultze delivery of the placenta, which was inspected and noted to be intact and normal. Less than 300 cc blood loss . Rh positive and immune to Rubella. Tolerated all procedures well. She is cleared for a tubal. W e will keep her n.p.o. The epidural is working extremely well, and we will use that for anesthetic. Final Diagnoses: Term intrauterine 40 weeks, labor induction, vaginal delivery, beta strep prophylaxis, epidural anesthesia, loose nuchal cord. Sterilization pending. MARISSA/JOSE ELIAS Voice ID: [id number] Report ID: [id number]
[2018-03-11 23:07] LABS: RPR (Rapid Plasma Reagin) NON-REACT (NON-REACT)
--- NOTE | 2018-03-12 00:10 | OP ---
Surgeon: Martín Crane MD A 32-year-old female, now para 4, cleared for tubal sterilization. Full preoperative coun seling concerning procedure and possible complications including infection, blood loss, anesthetic co mplications, injury to bladder, bowel, ureter, postoperative complications, clots in legs, pneumonia, tubal failure, tubal ectopic , difficulty in tubal reversal, and essentially permanence of the procedure. The patient knows fully well these do not constitute all the possible problems that c ould occur during or following surgery. Epidural anesthesia plus supplemented with 3 mg of Versed IV . Description Of Procedure: After prepping and draping and timeout, skin incision was made over the pr evious skin incision site. The incision was carried to the fascia. The fascia was incised and perit oneum entered bluntly. Sutures 0 Vicryl was placed in the anterior and inferior portions of the inci tom and tagged. The left tube was grasped in the midportion, traced out to the fimbriated portion. A knuckle of tube was produced in the midportion of the tube and a freehand tied x3 with 2-0 plain w as placed. Segment of tube was removed. The tubal lumen which were exposed were fulgurated. No fur ther bleeding was seen. The tube was allowed to fall away. A similar procedure was then carried out on the contralateral side without difficulty. At this time, the fascial stay sutures were tied toge ther to reapproximate the fascia and a single [id number] stitch with 0 Vicryl was also placed to reapproximate the fascia. Two sutures of [id number]-[id number] with 2-0 plain were used to close subcutan eous tissue, 4-0 Vicryl was used to close the skin, and then Dermabond. The patient tolerated all pr ocedures well, transferred back to her room in good condition. Final Diagnoses: tubal sterilization, modified [place], epidural anesthesia. MARISSA/JOSE ELIAS Voice ID: [id number] Report ID: [id number]
[2018-03-12] MEDS: Oxycodone HCl/Acetaminophen 1 TAB TAB PO PRN (04:12)
[2018-03-12 15:23] VITALS: BP 137/77; TEMP 97.4
[2018-03-15 03:36] LABS: HBsAG Nonreactive (Nonreactive)
--- NOTE | 2018-03-16 08:36 | DS ---
Date of Discharge: 03/12/2018 Hospital Course: Snow Argueta, 32-year-old, 6, para 3, fourth term at 40 weeks, del ivered an estimated 9-pound male infant, Apgars 9 and 10. Epidural anesthesia. No episiotomy. No l aceration. Schultze delivery of the placenta was inspected and noted to be intact and normal. Less than 300 cc blood loss. Penicillin prophylaxis x2 during the labor. The patient has a history of le ukemia, now in remission. She has had clearance for tubal sterilization. This was performed 2 hours or so post delivery under epidural anesthesia with IV sedation. Minimal blood loss. Went quite wel l. Postoperatively, the patient has done well. She is afebrile. She is ambulating, voiding. Lochi a is normal. No post epidural problems. She has had her Tdap immunizations. She is dismissed with tramadol for analgesia. She is to see me in the office in 6 weeks, sooner if any problems, fever, se joey pain, heavy bleeding, or any other problems. Final Diagnoses: Intrauterine gestation, 40 weeks, vaginal delivery, epidural anesthesia. Penicilli n prophylaxis. Tubal sterilization. History of leukemia, now in remission. MARISSA/REJIL Voice ID: [id number] Report ID: [id number]
== END 2018-03-12 14:00 | disposition home or self-care (01) | DRG 797 ==
LOC: 2ND-WC 04:40
PROVIDERS: ADMIT Specialist; ATTEND Specialist
PROC: 10907ZC Drainage of Amniotic Fluid, Therapeutic from Products of Conception, Via Natural or Artificial Opening (ICD-10-PCS; principal; 2018-03-11)
PROC: 0U570ZZ Destruction of Bilateral Fallopian Tubes, Open Approach (ICD-10-PCS; 2018-03-11)
PROC: 10E0XZZ Delivery of Products of Conception, External Approach (ICD-10-PCS; 2018-03-11)
DX: O69.81X0 Labor and delivery complicated by cord around neck, without compression, not applicable or unspecified (principal); C95.91 Leukemia, unspecified, in remission; Z37.0 Single live birth; O99.824 Streptococcus B carrier state complicating childbirth; Z3A.40 40 weeks gestation of pregnancy; O75.89 Other specified complications of labor and delivery; Z91.040 Latex allergy status
CPT/HCPCS: 36415; 76805; 81003; 81015; 85025; 86592; 86850; 86900; 86901; 87086; 87088; 87340; 88302; 93971; 99218; J0595; J2175; J2210; J2250; J2550; J2590; J2795; J3010

== ENCOUNTER 2018-08-30 23:38 | Emergency (ER) | payer BC, OTHER ==
--- OUTSIDE RECORDS SUMMARY | 2018-08-30 23:41 | XMS REPORT ---
:1985 Author Organization eClinicalWorks Care Team Providers Name Role Phone Savage, Na Provider Role Unavailable Allergies, Adverse Reactions, Alerts Substance Reaction Event Type Cephalexin Info Not Available Drug Allergy Problems Problem Type Condition Code Onset Dates Condition Status Assessment Seasonal allergic rhinitis, J30.2 Active unspecified trigger Problem Hyperlipidemia E78.5 Active Assessment Stressful life events affecting Z63.79 Active family and household Problem 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 Active Assessment Attention deficit hyperactivity F90.2 Active disorder (ADHD), combined type Problem Attention deficit hyperactivity F90.2 Active disorder (ADHD), combined type Problem Incontinence R32 Active Problem Tinnitus H93.19 Active Problem Stressful life events affecting Z63.79 Active family and household Problem Seasonal allergic rhinitis, J30.2 Active unspecified trigger Assessment Depression with anxiety F41.8 Active Problem Right anterior knee pain M25.561 Active Assessment Right anterior knee pain M25.561 Active Problem Depression with anxiety F41.8 Active Problem Rectal bleeding K62.5 Active Problem Stress incontinence N39.3 Active Problem 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 Problem GERD (gastroesophageal reflux K21.9 Active disease) Problem Benign essential HTN I10 Active Problem Hiatal hernia K44.9 Active Problem Gastritis K29.70 Active Problem Palpitations R00.2 Active Problem Allergic rhinitis J30.9 Active Problem Dizziness R42 Active Problem Anxiety F41.9 Active Medications Medication Code Code Instructions Start End Status Dosage System Date Date Nexium [facility] 78125984436 20 MG Orally Active 1 capsule Once a day Singulair [facility] 14446828757 10 MG Orally Active 1 tablet Once a day in the evening Vyvanse [facility] 10030294192 50 MG Orally Active 1 capsule Once a day in the morning Diclofenac ND 28360295903 75 MG Orally June 22, Active 1 tablet Sodium Twice a day prn 2019 with food pain or milk Loestrin [facility] 72763160458 1.5-30 MG-MCG Active 1 tablet .5 () Orally Once a day Biotin [facility] 18462226333 5000 MCG Orally Active 1 tablet Once a day Effexor XR [facility] 59841701859 37.5 MG Orally Active 1 capsule Once a day with food Xanax [facility] 08827936620 0.5 MG Orally Active 1 tablet once a day prn anxiety Flonase [facility] 61383886418 50 MCG/ACT Active 1 spray in Nasally Once a each day nostril ProAir [facility] 55385158093 108 (90 Base) Active 2 puffs as RespiClick MCG/ACT needed Inhalation every 6 hrs Results No Known Results Summary Purpose eClinicalWorks Submission
--- OUTSIDE RECORDS SUMMARY | 2018-08-30 23:41 | XMS REPORT ---
:1985 Author Organization eClinicalWorks Care Team Providers Name Role Phone Savage, Na Provider Role Unavailable Allergies No Known Allergies Problems Problem Type Condition Code Onset Dates Condition Status Problem Attention deficit hyperactivity F90.2 Active disorder (ADHD), combined type Problem Incontinence R32 Active Problem Tinnitus H93.19 Active Problem Stressful life events affecting Z63.79 Active family and household Problem Seasonal allergic rhinitis, J30.2 Active unspecified trigger Problem Right anterior knee pain M25.561 Active Problem Depression with anxiety F41.8 Active Problem Rectal bleeding K62.5 Active Problem Stress incontinence N39.3 Active Problem 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
--- OUTSIDE RECORDS SUMMARY | 2018-08-30 23:41 | XMS REPORT ---
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 Assessment Costochondritis, acute M94.0 Active Problem Depression with anxiety F41.8 Active Assessment Stressful life events affecting Z63.79 Active family and household Assessment Seasonal allergic rhinitis, J30.2 Active unspecified trigger Problem Stress incontinence N39.3 Active Problem Tinnitus H93.19 Active Problem Attention deficit hyperactivity F90.2 Active disorder (ADHD), combined type Problem Rectal bleeding K62.5 Active Problem Incontinence R32 Active Problem Hiatal hernia K44.9 Active Assessment Attention deficit hyperactivity F90.2 Active disorder (ADHD), combined type Assessment Depression with anxiety F41.8 Active Problem Benign essential HTN I10 Active Problem Dizziness R42 Active Problem Gastritis K29.70 Active Problem Anxiety F41.9 Active Problem GERD (gastroesophageal reflux K21.9 Active disease) Problem Palpitations R00.2 Active Medications Medication Code Code Instructions Start End Status Dosage System Date Date Xanax [facility] 02502426699 0.5 MG Orally May 04, Active 1 tablet once a day prn 2019 anxiety Flonase [facility] 22759314709 50 MCG/ACT Active 1 spray in Nasally Once a each day nostril Nexium [facility] 87886227407 20 MG Orally Active 1 capsule Once a day Singulair ND 87555450202 10 MG Orally Active 1 tablet Once a day in the evening Biotin [facility] 93062626095 5000 MCG Orally Active 1 tablet Once a day Effexor XR [facility] 73841748076 37.5 MG Orally Active 1 capsule Once a day with food Vyvanse [facility] 32885018855 50 MG Orally Active 1 capsule Once a day in the morning ProAir [facility] 41556802293 108 (90 Base) Active 2 puffs as RespiClick MCG/ACT needed Inhalation every 6 hrs Loestrin [facility] 97283158898 1.5-30 MG-MCG Active 1 tablet 1.5/30 (21) Orally Once a day Results No Known Results Summary Purpose eClinicalWorks Submission
--- OUTSIDE RECORDS SUMMARY | 2018-08-30 23:41 | XMS REPORT ---
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 Assessment Attention deficit hyperactivity F90.2 Active disorder (ADHD), combined type Problem Depression with anxiety F41.8 Active Problem Stress incontinence N39.3 Active Problem Tinnitus H93.19 Active Problem Attention deficit hyperactivity F90.2 Active disorder (ADHD), combined type Problem Rectal bleeding K62.5 Active Problem Incontinence R32 Active Problem Hiatal hernia K44.9 Active Assessment Seasonal allergic rhinitis, J30.2 Active unspecified trigger Assessment Depression with anxiety F41.8 Active Problem Benign essential HTN I10 Active Problem Dizziness R42 Active Problem Gastritis K29.70 Active Problem Anxiety F41.9 Active Problem GERD (gastroesophageal reflux K21.9 Active disease) Problem Palpitations R00.2 Active Medications Medication Code Code Instructions Start End Status Dosage System Date Date Nexium [facility] 40040370699 20 MG Orally Active 1 capsule Once a day Effexor XR [facility] 14575212790 37.5 MG Orally Active 1 capsule Once a day with food Biotin [facility] 19283382687 5000 MCG Orally Active 1 tablet Once a day Loestrin [facility] 16861886214 1.5-30 MG-MCG Active 1 tablet 1.5/30 (21) Orally Once a day Singulair [facility] 54064544291 10 MG Orally Active 1 tablet Once a day in the evening Vyvanse [facility] 45948984969 50 MG Orally Active 1 capsule Once a day in the morning ProAir [facility] 17618336577 108 (90 Base) Active 2 puffs as RespiClick MCG/ACT needed Inhalation every 6 hrs Flonase [facility] 20385386387 50 MCG/ACT Active 1 spray in Nasally Once a each day nostril Results No Known Results Summary Purpose eClinicalWorks Submission
--- OUTSIDE RECORDS SUMMARY | 2018-08-30 23:41 | XMS REPORT ---
[...] allergic rhinitis, J30.2 Active unspecified trigger Assessment Attention deficit hyperactivity F90.2 Active disorder (ADHD), combined type Problem Right anterior knee pain M25.561 Active [...] F41.9 Active Problem 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 Active Medications Medication Code Code Instructions Start End Status Dosage System Date Date Xanax [facility] 62391425766 0.5 MG Orally Active 1 tablet once a day prn anxiety Singulair [facility] 85797262151 10 MG Orally Active 1 tablet Once a day in the evening Loestrin [facility] 15353595637 1.5-30 MG-MCG Active 1 tablet .5 (21) Orally Once a day Vyvanse [facility] 65126420665 50 MG Orally July 23, Active 1 capsule Once a day 2018 in the morning Flonase [facility] 46345660457 50 MCG/ACT Active 1 spray in Nasally Once a each day nostril Effexor XR [facility] 36314468027 37.5 MG Orally Active 1 capsule Once a day with food Nexium [facility] 89458519716 20 MG Orally Active 1 capsule Once a day Biotin [facility] 29083230811 5000 MCG Orally Active 1 tablet Once a day ProAir [facility] 05042517422 108 (90 Base) Active 2 puffs as RespiClick MCG/ACT needed Inhalation every 6 hrs Diclofenac [facility] 61697193400 75 MG Orally June 22, Active 1 tablet Sodium Twice a day prn 2018 with food pain or milk Results No Known Results Summary Purpose eClinicalWorks Submission
[2018-08-31 00:41] LABS: Urine Blood 2+ (NEG); Urine Glucose NEGATIVE (NEG); Urine Protein NEGATIVE (NEG); Urine Specific Gravity 1.025 (1.005-1.030)
[2018-08-31 00:41] LABS: Urine Bacteria <20 /HPF (<20); Urine Culture Reflex Order NOT NEEDED; Urine Mucus 2+ /HPF (NONE SEEN)
[2018-08-31] MEDS ORDERED: KETOROLAC 30 MG/ML INJ ONE (00:47)
[2018-08-31] MEDS ORDERED: PROMETHAZINE 25 MG/ML VIAL ONE (00:47)
[2018-08-31] MEDS ORDERED: NA CHLORIDE 0.9% 1,000 ML ONE (00:47)
[2018-08-31] MEDS ORDERED: FAMOTIDINE 20 MG/2 ML VIAL IV ONE (00:48)
[2018-08-31 00:50] LABS: Absolute Lymphocytes (CBC) 0.8 K/uL (0.7-4.9); Absolute Monocytes 0.6 K/uL (0.1-1.3); Absolute Neutrophil 8.8 K/uL (1.8-8.0); Basophils % 0.1 % (0-1.3); Eosinophils % 1.5 % (0-4.4); Hematocrit 41.8 % (36.0-45.0); Lymphocytes % 7.5 % (15.3-44.8); MPV 10.9 fL (7.6-11.3)
[2018-08-31 01:13] LABS: Bilirubin Direct 0.1 mg/dL (0-0.2); Bilirubin Total 0.5 mg/dL (0.2-1.0); Potassium 4.1 mmol/L (3.5-5.1); Protein, Total 7.5 g/dL (6.4-8.2)
--- NOTE | 2018-08-31 02:24 | EDPHYS ---
Physician Documentation [facility] Name: Snow Argueta Age: 32 yrs Sex: Female : 1985 Arrival Date: 08/30/2018 Time: 23:40 Bed 13 Private MD: Soco Savage ED Physician Juanito Ralph HPI: 08/31 00:30 This 32 yrs old Female presents to ER via Ambulatory with complaints of cp Nausea/Vomiting, Chest Pain, Back Pain. 00:30 The patient presents to the emergency department with nausea, with "dry heaves", cp vomiting, that is intermittent, abdominal pain, of the epigastric area and right upper quadrant, and radiates to the back. Onset: The symptoms/episode began/occurred today, at 13:00. Possible causes: unknown. Associated signs and symptoms: Pertinent negatives: constipation, diarrhea, dysuria, fever, GI bleeding. Severity of symptoms: in the emergency department the symptoms are unchanged despite home interventions. 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 - Social history:: Smoking status: Patient/guardian denies using tobacco. - Ebola Screening: : No symptoms or risks identified at this time. ROS: 08/31 00:31 Constitutional: Positive for poor PO intake, Negative for body aches, chills, fever. cp ENT: Negative for drainage from ear(s), ear pain, sore throat, difficulty swallowing, difficulty handling secretions. Cardiovascular: Negative for chest pain, palpitations. Respiratory: Negative for cough, shortness of breath, wheezing. Abdomen/GI: Positive for abdominal pain, nausea and vomiting, Negative for diarrhea, constipation, dysphagia, hematemesis, black/tarry stool, rectal bleeding. Back: Positive for radiated pain. MS/extremity: Negative for paresthesias. Skin: Negative for cellulitis, rash. Neuro: Negative for altered mental status, headache, weakness. All other systems are negative. Exam: 00:33 Head/Face: Normocephalic, atraumatic. cp 00:33 Constitutional: The patient appears in no acute distress, alert, awake, non-diaphoretic, non-toxic, well developed, well nourished. 00:33 Eyes: Periorbital structures: appear normal, Conjunctiva: normal, no exudate, no injection, Sclera: no appreciated abnormality, Lids and lashes: appear normal, bilaterally. 00:33 ENT: External ear(s): are unremarkable, Nose: is normal, Mouth: is normal, Posterior pharynx: Airway: no evidence of obstruction, patent. 00:33 Chest/axilla: Inspection: normal, Palpation: is normal, no crepitus, no tenderness. 00:33 Cardiovascular: Rate: tachycardic, Rhythm: regular. 00:33 Respiratory: the patient does not display signs of respiratory distress, Respirations: normal, no use of accessory muscles, no retractions, no splinting, no tachypnea, labored breathing, is not present, Breath sounds: are clear throughout, no decreased breath sounds, no stridor, no wheezing. 00:33 Abdomen/GI: Inspection: abdomen appears normal, Bowel sounds: active, all quadrants, Palpation: soft, in all quadrants, moderate abdominal tenderness, in the epigastric area and right upper quadrant, rebound tenderness, is not appreciated, voluntary guarding, is elicited in the epigastric area and right upper quadrant, involuntary guarding, is not appreciated. 00:33 Back: pain, that is mild, ROM is normal. Vital Signs: 08/30 23:45 BP 150 / 90; Pulse 106; Resp 16; Temp 99.5; Pulse Ox 98% on R/A; Weight 86.18 kg; la1 Height 5 ft. 6 in. (167.64 cm); Pain 9/10; 08/31 01:00 BP 134 / 87; Pulse 88; Resp 16; Pulse Ox 97% on R/A; jb4 02:39 BP 136 / 77; Pulse 88; Resp 16; Pulse Ox 98% on R/A; jb4 08/30 23:45 Body Mass Index 30.67 (86.18 kg, 167.64 cm) la1 MDM: 08/30 23:58 Patient medically screened. 08/31 02:20 Differential diagnosis: Nonspecific abd pain, gastritis, cholecystitis, pancreatitis, cp viral gastroenteritis, gastroenteritis. Data reviewed: vital signs, nurses notes, lab test result(s), radiologic studies, CT scan, I have discussed the patient's presentation/case with the attending Emergency Department Physician; and as a result, I will discharge patient. ED course: Nausea and pain markedly improved, vomiting resolved. Will discharge to home for continued monitoring. 08/31 00:19 Order name: Basic Metabolic Panel; Complete Time: 01:24 08/31 01:24 Interpretation: Normal except: CL 108; GFR 76; CA 7.7. 08/31 00:19 Order name: CBC with Diff; Complete Time: 00:58 08/31 01:25 Interpretation: Normal except: MCV 87.0; HENRRY% 84.9; LYM% 7.5; NEUT A 8.8. 08/31 00:19 Order name: Creatinine for Radiology; Complete Time: 01:24 08/31 00:19 Order name: Hepatic Function; Complete Time: 01:24 08/31 00:19 Order name: Lipase; Complete Time: 01:24 08/31 01:57 Interpretation: LIP 154; Reviewed. 08/31 00:19 Order name: Urine Microscopic Only; Complete Time: 00:58 08/31 00:34 Order name: Urine Dipstick--Ancillary (enter results); Complete Time: 00:58 la 08/31 00:34 Order name: Urine --Ancillary (enter results); Complete Time: 00:58 la 08/31 00:37 Order name: CT Abd/Pelvis - Without Cont: give oral contrast 08/31 00:19 Order name: IV Saline Lock; Complete Time: 00:37 08/31 00:19 Order name: Labs collected and sent; Complete Time: 00:37 08/31 00:19 Order name: Urine Dipstick-Ancillary (obtain specimen); Complete Time: 00:37 08/31 00:19 Order name: Urine Test (obtain specimen); Complete Time: 00:37 08/31 01:58 Order name: PO challenge; Complete Time: 02:14 cp Administered Medications: 00:30 Drug: TORadol - Ketorolac 15 mg Route: IVP; Site: right antecubital; jb4 01:00 Follow up: Response: No adverse reaction; Pain is decreased jb4 00:32 Drug: Pepcid 20 mg Route: IVP; Site: right antecubital; jb4 02:43 Follow up: Response: No adverse reaction jb4 00:36 Not Given (Other Intervention Used): Zofran 4 mg IVP once; over 2 minutes jb4 01:00 Drug: NS 0.9% 1000 ml Route: IV; Rate: 1 bolus; Site: right antecubital; jb4 02:00 Follow up: Response: No adverse reaction; IV Status: Completed infusion; IV Intake: jb4 1000ml 01:00 Drug: Phenergan 25 mg Route: IVP; Site: right antecubital; jb4 01:30 Follow up: Response: No adverse reaction; Nausea is decreased jb4 Disposition: 05:55 Co-signature as Attending Physician, Juanito Ralph MD I agree with the assessment and tw4 plan of care. Disposition: 08/31/18 02:23 Discharged to Home. Impression: Nausea and vomiting, Upper abdominal pain, unspecified. - Condition is Stable. - Discharge Instructions: Abdominal Pain, Adult, Nausea and Vomiting, Adult. - Prescriptions for Protonix 40 mg Oral Tablet, Delayed Release (E.C.) - take 1 tablet by ORAL route once daily As needed; 20 tablet. Phenergan 25 mg Rectal Suppository - insert 1 suppository by RECTAL route every 6 hours As needed; 12 suppository. promethazine 25 mg Oral Tablet - take 1 tablet by ORAL route every 6 hours As needed; 20 tablet. - Medication Reconciliation Form, Thank You Letter, Antibiotic Education, Prescription Opioid Use form. - Follow up: Soco Savage MD; When: 1 - 2 days; Reason: Recheck today's complaints. - Problem is new. - Symptoms have improved. Signatures: Dispatcher [employer] EDMS Tung Ngo RN RN la1 Rustam Eden PA PA cp Bryson, James, RN RN jb4 Juanito Ralph MD MD tw4 Corrections: (The following items were deleted from the chart) 01:24 01:24 Normal except: CL 108; GFR 76. cp cp 02:45 02:23 08/31/2018 02:23 Discharged to Home. Impression: Nausea and vomiting; Upper jb4 abdominal pain, unspecified. Condition is Stable. Forms are Medication Reconciliation Form, Thank You Letter, Antibiotic Education, Prescription Opioid Use. Follow up: Soco Savage; When: 1 - 2 days; Reason: Recheck today's complaints. Problem is new. Symptoms have improved. cp
--- NOTE | 2018-08-31 02:24 | ER ---
Nurse's Notes [facility] Name: Snow Argueta Age: 32 yrs Sex: Female : 1985 Arrival Date: 08/30/2018 Time: 23:40 Bed 13 Private MD: Soco Savage Diagnosis: Nausea and vomiting;Upper abdominal pain, unspecified Presentation: 08/30 23:42 Presenting complaint: Patient states: At about 1300 I started having a lot of nausea, la1 vomiting, pain in the right side and back. Transition of care: patient was not received from another setting of care. Onset of symptoms was August 30, 2018. Risk Assessment: Do you want to hurt yourself or someone else? Patient reports no desire to harm self or others. Initial Sepsis Screen: Does the patient meet any 2 criteria? No. Patient's initial sepsis screen is negative. Does the patient have a suspected source of infection? No. Patient's initial sepsis screen is negative. Care prior to arrival: None. 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 - Social history:: Smoking status: Patient/guardian denies using tobacco. - Ebola Screening: : No symptoms or risks identified at this time. Screenin/13 00:00 Abuse screen: Denies threats or abuse. Nutritional screening: No deficits noted. jb4 Tuberculosis screening: No symptoms or risk factors identified. Fall Risk None identified. Assessment: 00:00 General: Appears in no apparent distress. uncomfortable, Behavior is calm, cooperative, jb4 appropriate for age. Pain: Complains of pain in epigastric area, anterior aspect of right lateral abdomen and right upper quadrant Pain radiates to posterior aspect of right lateral abdomen Pain currently is 8 out of 10 on a pain scale. Quality of pain is described as aching. Neuro: Level of Consciousness is awake, alert, obeys commands, Oriented to person, place, time, situation. Cardiovascular: Patient's skin is warm and dry. Respiratory: Airway is patent Respiratory effort is even, unlabored, Respiratory pattern is regular, symmetrical. GI: Abdomen is non-distended, obese, Reports diarrhea, nausea, vomiting. : No signs and/or symptoms were reported regarding the genitourinary system. EENT: No signs and/or symptoms were reported regarding the EENT system. Derm: Skin is intact, Skin is pink, warm \T\ dry. Musculoskeletal: Circulation, motion, and sensation intact. 01:00 Reassessment: Patient appears in no apparent distress at this time. Patient and/or jb4 family updated on plan of care and expected duration. Pain level reassessed. Patient is alert, oriented x 3, equal unlabored respirations, skin warm/dry/pink. 01:39 Reassessment: Patient appears in no apparent distress at this time. Patient and/or jb4 family updated on plan of care and expected duration. Pain level reassessed. Patient is alert, oriented x 3, equal unlabored respirations, skin warm/dry/pink. Patient states feeling better. 02:39 Reassessment: Patient appears in no apparent distress at this time. Patient and/or jb4 family updated on plan of care and expected duration. Pain level reassessed. Patient is alert, oriented x 3, equal unlabored respirations, skin warm/dry/pink. Patient states feeling better. Vital Signs: 08/30 23:45 BP 150 / 90; Pulse 106; Resp 16; Temp 99.5; Pulse Ox 98% on R/A; Weight 86.18 kg; la1 Height 5 ft. 6 in. (167.64 cm); Pain 12/29; 08/31 01:00 BP 134 / 87; Pulse 88; Resp 16; Pulse Ox 97% on R/A; jb4 02:39 BP 136 / 77; Pulse 88; Resp 16; Pulse Ox 98% on R/A; jb4 08/30 23:45 Body Mass Index 30.67 (86.18 kg, 167.64 cm) la1 ED Course: 08/30 23:40 Patient arrived in ED. do 23:40 Soco Savage MD is Private Physician. do 23:43 Triage completed. la1 23:45 Arm band placed on left wrist. la1 23:51 Bienvenido Delarosa RN is Primary Nurse. jb4 23:58 Rustam Eden PA is PHCP. cp 23:58 Juanito Ralph MD is Attending Physician. cp 08/31 00:00 Patient has correct armband on for positive identification. Placed in gown. Bed in low jb4 position. Call light in reach. Side rails up X 1. Pulse ox on. NIBP on. 00:35 Inserted saline lock: 20 gauge in right antecubital area, using aseptic technique. ag4 Blood collected. 01:18 CT Abd/Pelvis - Without Cont: give oral contrast In Process Unspecified. EDMS 02:22 Soco Savage MD is Referral Physician. cp 02:41 No provider procedures requiring assistance completed. IV discontinued, intact, jb4 bleeding controlled. Administered Medications: 00:30 Drug: TORadol - Ketorolac 15 mg Route: IVP; Site: right antecubital; jb4 01:00 Follow up: Response: No adverse reaction; Pain is decreased jb4 00:32 Drug: Pepcid 20 mg Route: IVP; Site: right antecubital; jb4 02:43 Follow up: Response: No adverse reaction jb4 00:36 Not Given (Other Intervention Used): Zofran 4 mg IVP once; over 2 minutes jb4 01:00 Drug: NS 0.9% 1000 ml Route: IV; Rate: 1 bolus; Site: right antecubital; jb4 02:00 Follow up: Response: No adverse reaction; IV Status: Completed infusion; IV Intake: jb4 1000ml 01:00 Drug: Phenergan 25 mg Route: IVP; Site: right antecubital; jb4 01:30 Follow up: Response: No adverse reaction; Nausea is decreased jb4 Intake: 02:00 IV: 1000ml; Total: 1000ml. jb4 Outcome: 02:23 Discharge ordered by . cp 02:41 Discharged to home ambulatory. jb4 02:41 Condition: stable 02:41 Discharge instructions given to patient, Instructed on discharge instructions, follow up and referral plans. no driving heavy equipment, Demonstrated understanding of instructions, follow-up care, medications, Prescriptions given X 3. 02:45 Patient left the ED. jb4 Signatures: Dispatcher [employer] EDTung Fernandez RN RN la1 Rustam Eden PA PA cp Ogletree, Danielle do Bryson, James, RN RN jb4 Ramírez Conti ag4
[2018-08-31 03:57] VITALS: TEMP 99.5
[2018-08-31 03:58] VITALS: BP 136/77; O2SAT 98
--- NOTE | 2018-08-31 10:01 | RAD REPORT ---
EXAM DESCRIPTION: CT - Abdomen Pelvis Wo Contrast - 08/31/2018 1:18 am CLINICAL HISTORY: The patient is 32 years old and is Female; Abd pain;Nausea / vomiting TECHNIQUE: Axial computed tomography images of the abdomen and pelvis without intravenous contrast. Sagittal and coronal reformatted images were created and reviewed. This CT exam was performed usi ng one or more of the following dose reduction techniques: automated exposure control, adjustment o f the mA and/or kV according to patient size, and/or use of iterative reconstruction technique. COMPARISON: Comparison: CT of the abdomen and pelvis April 08, 2016. FINDINGS: LUNG BASES: Unremarkable. No mass. No consolidation. ABDOMEN: LIVER: Homogeneous without focal mass. GALLBLADDER AND BILE DUCTS: No calcified stones. No ductal dilation. PANCREAS: Suggestion of fullness of the pancreas with mild peripancreatic edema is noted. No d uctal dilation. SPLEEN: Unremarkable. ADRENALS: Unremarkable. No mass. KIDNEYS AND URETERS: No obstructing stones. No hydronephrosis. STOMACH AND BOWEL: The stomach is distended with food contents. The small bowel is normal in conrad iber. Stool is present throughout the colon. There is no mucosal thickening or evidence of bowel obst ruction. PELVIS: APPENDIX: The appendix is surgically absent. BLADDER: Unremarkable. No stones. REPRODUCTIVE: Unremarkable as visualized. ABDOMEN and PELVIS: INTRAPERITONEAL SPACE: Unremarkable. No free air. No significant fluid collection. BONES/JOINTS: No acute fracture. SOFT TISSUES: The soft tissues are normal. VASCULATURE: Unremarkable. No abdominal aortic aneurysm. LYMPH NODES: Unremarkable. No enlarged lymph nodes. IMPRESSION: Findings suggestive of mild acute pancreatitis. Correlation with laboratory values is re commended. Electronically signed by: Pastora Guzman MD 08/31/2018 1:30 AM CDT Due to temporary technical issues with the PACS/Fluency reporting system, reports are being signed by the in house radiologist as a courtesy to ensure prompt reporting. The interpreting radiologist is f fantasmaly responsible for the content of the report.
== END 2018-08-31 02:45 | disposition home or self-care (01) ==
LOC: ER 23:38
DX: R11.2 Nausea with vomiting, unspecified (principal); R10.13 Epigastric pain; R07.9 Chest pain, unspecified; K21.9 Gastro-esophageal reflux disease without esophagitis; C95.90 Leukemia, unspecified not having achieved remission; Z88.1 Allergy status to other antibiotic agents; Z91.041 Radiographic dye allergy status; Z91.040 Latex allergy status
CPT/HCPCS: 36415; 74176; 80048; 80076; 81003; 81015; 81025; 83690; 85025; 96361; 96374; 96375; 99284; J2550; J7030

== ENCOUNTER 2018-08-31 11:26 | Inpatient (IN) | payer BC ==
--- OUTSIDE RECORDS SUMMARY | 2018-08-31 11:28 | XMS REPORT ---
[...] End Status Dosage System Date Date Xanax [facility] 58914740117 0.5 MG Orally May 04, Active 1 tablet once a day prn 2019 anxiety Flonase [facility] 09225900577 50 MCG/ACT Active 1 spray in Nasally Once a each day nostril Nexium [facility] 39830339556 20 MG Orally Active 1 capsule Once a day Singulair ND 04907726237 10 MG Orally Active 1 tablet Once a day in the evening Biotin [facility] 62573745233 5000 MCG Orally Active 1 tablet Once a day Effexor XR [facility] 76688475476 37.5 MG Orally Active 1 capsule Once a day with food Vyvanse [facility] 10538891780 50 MG Orally Active 1 capsule Once a day in the morning ProAir [facility] 31674258578 108 (90 Base) Active 2 puffs as RespiClick MCG/ACT needed Inhalation every 6 hrs Loestrin [facility] 47097417182 1.5-30 MG-MCG Active 1 tablet 1.5/30 (21) Orally Once a day Results No Known Results Summary Purpose eClinicalWorks Submission
--- OUTSIDE RECORDS SUMMARY | 2018-08-31 11:28 | XMS REPORT ---
[...] End Status Dosage System Date Date Nexium [facility] 59372563889 20 MG Orally Active 1 capsule Once a day Effexor XR [facility] 89759513758 37.5 MG Orally Active 1 capsule Once a day with food Biotin [facility] 63378721372 5000 MCG Orally Active 1 tablet Once a day Loestrin [facility] 55164002733 1.5-30 MG-MCG Active 1 tablet 1.5/30 (21) Orally Once a day Singulair [facility] 13598789914 10 MG Orally Active 1 tablet Once a day in the evening Vyvanse [facility] 79144973119 50 MG Orally Active 1 capsule Once a day in the morning ProAir [facility] 55451165598 108 (90 Base) Active 2 puffs as RespiClick MCG/ACT needed Inhalation every 6 hrs Flonase [facility] 24289439226 50 MCG/ACT Active 1 spray in Nasally Once a each day nostril Results No Known Results Summary Purpose eClinicalWorks Submission
--- OUTSIDE RECORDS SUMMARY | 2018-08-31 11:28 | XMS REPORT ---
[...] End Status Dosage System Date Date Nexium [facility] 62593190854 20 MG Orally Active 1 capsule Once a day Singulair [facility] 43457217160 10 MG Orally Active 1 tablet Once a day in the evening Vyvanse [facility] 88049539570 50 MG Orally Active 1 capsule Once a day in the morning Diclofenac ND 84797378390 75 MG Orally June 22, Active 1 tablet Sodium Twice a day prn 2019 with food pain or milk Loestrin [facility] 81077229901 1.5-30 MG-MCG Active 1 tablet .5 () Orally Once a day Biotin [facility] 92294946749 5000 MCG Orally Active 1 tablet Once a day Effexor XR [facility] 35255798939 37.5 MG Orally Active 1 capsule Once a day with food Xanax [facility] 66446939662 0.5 MG Orally Active 1 tablet once a day prn anxiety Flonase [facility] 87338101884 50 MCG/ACT Active 1 spray in Nasally Once a each day nostril ProAir [facility] 21463385847 108 (90 Base) Active 2 puffs as RespiClick MCG/ACT needed Inhalation every 6 hrs Results No Known Results Summary Purpose eClinicalWorks Submission
--- OUTSIDE RECORDS SUMMARY | 2018-08-31 11:29 | XMS REPORT ---
[...] End Status Dosage System Date Date Xanax [facility] 66453490615 0.5 MG Orally Active 1 tablet once a day prn anxiety Singulair [facility] 97220084781 10 MG Orally Active 1 tablet Once a day in the evening Loestrin [facility] 28262354525 1.5-30 MG-MCG Active 1 tablet .5 (21) Orally Once a day Vyvanse [facility] 88556009940 50 MG Orally July 23, Active 1 capsule Once a day 2018 in the morning Flonase [facility] 24096707300 50 MCG/ACT Active 1 spray in Nasally Once a each day nostril Effexor XR [facility] 04895078907 37.5 MG Orally Active 1 capsule Once a day with food Nexium [facility] 36046062434 20 MG Orally Active 1 capsule Once a day Biotin [facility] 69427203107 5000 MCG Orally Active 1 tablet Once a day ProAir [facility] 05689333724 108 (90 Base) Active 2 puffs as RespiClick MCG/ACT needed Inhalation every 6 hrs Diclofenac [facility] 85921955235 75 MG Orally June 22, Active 1 tablet Sodium Twice a day prn 2018 with food pain or milk Results No Known Results Summary Purpose eClinicalWorks Submission
[2018-08-31] MEDS ORDERED: MORPHINE 4 MG/ML SYR ONE ×2 (12:16→14:47)
[2018-08-31] MEDS ORDERED: ONDANSETRON 4 MG/2 ML VIAL ONE (12:16)
[2018-08-31] MEDS ORDERED: NA CHLORIDE 0.9% 1,000 ML ONE (12:16)
[2018-08-31 12:31] LABS: Absolute Lymphocytes (CBC) 0.5 K/uL (0.7-4.9); Absolute Monocytes 0.5 K/uL (0.1-1.3); Basophils % 0.3 % (0-1.3); Eosinophils % 0.3 % (0-4.4); Hematocrit 38.7 % (36.0-45.0); Lymphocytes % 6.6 % (15.3-44.8); MPV 10.4 fL (7.6-11.3); Monocytes % 5.7 % (3.3-12.3); RBC Red Blood Cell Count 4.47 M/uL (3.86-4.86)
[2018-08-31 12:47] LABS: ALT/SGPT 24 U/L (12-78); AST/SGOT 13 U/L (15-37); Albumin 3.6 g/dL (3.4-5.0); Alkaline Phosphatase 71 U/L (45-117); BUN Blood Urea Nitrogen 16 mg/dL (7-18); Bicarbonate 23 mmol/L (21-32); Bilirubin Direct 0.1 mg/dL (0-0.2); Bilirubin Total 0.6 mg/dL (0.2-1.0); Glucose Level 101 mg/dL (74-106); Lipase 113 U/L (73-393); Potassium 3.3 mmol/L (3.5-5.1); Protein, Total 6.7 g/dL (6.4-8.2); Sodium Level 140 mmol/L (136-145)
[2018-08-31 13:09] LABS: Urine Blood 2+ (NEG); Urine Glucose NEGATIVE (NEG); Urine Protein TRACE (NEG); Urine Specific Gravity 1.015 (1.005-1.030); Urine pH 5.5 (5.0-7.0)
[2018-08-31] MEDS ORDERED: PROMETHAZINE 25 MG/ML VIAL ONE (13:15)
--- NOTE | 2018-08-31 13:54 | ER ---
Nurse's Notes [facility] Name: Snow Argueta Age: 32 yrs Sex: Female : 1985 Arrival Date: 08/31/2018 Time: 11:29 Bed 2 Private MD: Soco Savage Diagnosis: Acute pancreatitis, unspecified;Intractable vomiting Presentation: 08/31 11:47 Presenting complaint: Patient states: sent by Dr Savage for admission. Was seen here last sv night for pancreatitis and discharged. c/o RUQ pain, n/v/d/fever Tmax 100.5. Transition of care: patient was not received from another setting of care. Onset of symptoms was August 30, 2018. Initial Sepsis Screen: Does the patient meet any 2 criteria? HR > 90 bpm. No. Patient's initial sepsis screen is negative. Does the patient have a suspected source of infection? No. Patient's initial sepsis screen is negative. Care prior to arrival: None. 11:47 Method Of Arrival: Ambulatory sv 11:47 Acuity: LEONEL 2 sv 13:15 Risk Assessment: Do you want to hurt yourself or someone else? Patient reports no iw desire to harm self or others. Triage Assessment: 13:30 Pain: Complains of pain in abdomen. iw 15:51 General: Appears in no apparent distress. Behavior is calm. GI: Reports nausea, iw vomiting. 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 - Social history:: Smoking status: unknown. - Family history:: not pertinent. - Ebola Screening: : Patient negative for fever greater than or equal to 101.5 degrees Fahrenheit, and additional compatible Ebola Virus Disease symptoms Patient denies exposure to infectious person Patient denies travel to an Ebola-affected area in the 21 days before illness onset No symptoms or risks identified at this time. - Hospitalizations: : No recent hospitalization is reported. Screenin:17 Abuse screen: Denies threats or abuse. Denies injuries from another. Nutritional iw screening: No deficits noted. Tuberculosis screening: No symptoms or risk factors identified. Fall Risk IV access (20 points). Assessment: 13:14 Reassessment: Patient appears in no apparent distress at this time. Patient and/or iw family updated on plan of care and expected duration. Pain level reassessed. Patient is alert, oriented x 3, equal unlabored respirations, skin warm/dry/pink. pain decreased to 7/10, feels like she needs more pain medicine. 13:15 GI: Bowel sounds present X 4 quads. Abd is soft and non tender X 4 quads. iw 14:15 Reassessment: Patient appears in no apparent distress at this time. Patient and/or hb family updated on plan of care and expected duration. Pain level reassessed. Patient is alert, oriented x 3, equal unlabored respirations, skin warm/dry/pink. 15:19 Reassessment: Patient appears in no apparent distress at this time. Patient and/or iw family updated on plan of care and expected duration. Pain level reassessed. Patient is alert, oriented x 3, equal unlabored respirations, skin warm/dry/pink. denies nausea, pain has decreased from 10/10, 7/10, ice chips given per pt request. Vital Signs: 11:48 BP 116 / 91; Pulse 126; Resp 20; Temp 99.5(O); Pulse Ox 97% on R/A; Weight 91.17 kg; sv Height 5 ft. 6 in. (167.64 cm); Pain 10/10; 13:16 Pulse 110; Resp 16; Pulse Ox 98% on R/A; Pain 7/10; iw 13:49 BP 128 / 74; Pulse 105; Resp 16; Pulse Ox 100% on R/A; iw 14:26 BP 138 / 89; Pulse 108; Resp 15; Pulse Ox 100% on R/A; hb 11:48 Body Mass Index 32.44 (91.17 kg, 167.64 cm) sv ED Course: 11:29 Patient arrived in ED. mr 11:29 Soco Savage MD is Private Physician. mr 11:48 Triage completed. sv 11:49 Arm band placed on. sv 11:51 Matthew Ramirez MD is Attending Physician. rn 12:00 Clara Black RN is Primary Nurse. iw 12:25 Initial lab(s) drawn, by ED staff, sent to lab. Inserted saline lock: 20 gauge in left iw antecubital area, using aseptic technique. Blood collected. 13:15 Patient has correct armband on for positive identification. iw 13:53 Eduar Gray DO is Hospitalizing Provider. rn 15:50 No provider procedures requiring assistance completed. Patient admitted, IV remains in iw place. Administered Medications: 12:19 Drug: morphine 4 mg Route: IVP; Site: left antecubital; iw 12:20 Drug: NS 0.9% 1000 ml Route: IV; Rate: 1000 ml; Site: left antecubital; iw 12:30 Not Given (Duplicate Order): Zofran 4 mg IVP once; over 2 minutes rn 13:11 Drug: Phenergan 12.5 mg Route: IVP; Site: left antecubital; iw 14:41 Drug: morphine 4 mg Route: IVP; Site: left antecubital; iw Outcome: 13:53 Decision to Hospitalize by Provider. rn 15:50 Admitted to Med/surg accompanied by tech, family with patient, via stretcher, room 221, iw with chart, Report called to EBONIE Lovell 15:50 Condition: good 15:50 Discharge instructions given to patient, Instructed on the need for admit, Demonstrated understanding of instructions. 15:53 Patient left the ED. iw Signatures: Rebecca Interiano, Love Wasserman RN, EBONIE Elizabeth RN iw Matthew Ramirez MD MD rn Baxter, Heather, RN RN hb
--- NOTE | 2018-08-31 13:55 | EDPHYS ---
Physician Documentation [facility] Name: Snow Argueta Age: 32 yrs Sex: Female : 1985 Arrival Date: 08/31/2018 Time: 11:29 Bed 2 Private MD: Soco Savage ED Physician Matthew Ramirez HPI: 08/31 12:03 This 32 yrs old Female presents to ER via Ambulatory with complaints of rn Abdominal Pain, Fever, Vomiting. 12:03 The patient reports fever, not measured (subjective). Onset: The symptoms/episode rn began/occurred yesterday. Modifying factors: there are no obvious modifying factors. Associated signs and symptoms: Pertinent positives: abdominal pain, nausea, vomiting. Severity of symptoms: At their worst the symptoms were moderate in the emergency department the symptoms are unchanged. The patient has experienced a previous episode. The patient has been recently seen by a physician: The patient has been recently seen at the [facility] Emergency Department. Seen here late last night, diagnosed with pancreatitis, sent home, unable to fill meds, seen by pcp today, febrile and worsening abd pain/vomiting so sent back for admission. Reports has happened 1 other time before but ultimately ruled out pancreatitis, unclear diagnosis afterwards. Reports pain epigastric and radiates to back.. 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 - Social history:: Smoking status: unknown. - Family history:: not pertinent. - Ebola Screening: : Patient negative for fever greater than or equal to 101.5 degrees Fahrenheit, and additional compatible Ebola Virus Disease symptoms Patient denies exposure to infectious person Patient denies travel to an Ebola-affected area in the 21 days before illness onset No symptoms or risks identified at this time. - Hospitalizations: : No recent hospitalization is reported. ROS: 12:03 Constitutional: + fever Eyes: Negative for injury, pain, redness, and discharge, Neck: rn Negative for injury, pain, and swelling, Cardiovascular: Negative for chest pain, palpitations, and edema, Respiratory: Negative for shortness of breath, cough, wheezing, and pleuritic chest pain, Abdomen/GI: + abd pain/nausea/vomiting MS/Extremity: Negative for injury and deformity, Skin: Negative for injury, rash, and discoloration, Neuro: Negative for headache, numbness, tingling, and seizure. 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 Head/Face: Normocephalic, atraumatic. ENT: dry MM Respiratory: mild tachypnea, no retractions Abdomen/GI: sof,t mild epigastric tenderness Skin: Warm, dry MS/ Extremity: Pulses equal, no cyanosis. Neurovascular intact. Full, normal range of motion. Equal circumference. Neuro: Awake and alert, GCS 15, oriented to person, place, time, and situation. Cranial nerves II-XII grossly intact. Motor strength 5/5 in all extremities. Sensory grossly intact. Cerebellar exam normal. Normal gait. 12:30 ECG was reviewed by the Attending Physician. rn Vital Signs: 11:48 BP 116 / 91; Pulse 126; Resp 20; Temp 99.5(O); Pulse Ox 97% on R/A; Weight 91.17 kg; sv Height 5 ft. 6 in. (167.64 cm); Pain 10/10; 13:16 Pulse 110; Resp 16; Pulse Ox 98% on R/A; Pain 7/10; iw 13:49 BP 128 / 74; Pulse 105; Resp 16; Pulse Ox 100% on R/A; iw 14:26 BP 138 / 89; Pulse 108; Resp 15; Pulse Ox 100% on R/A; hb 11:48 Body Mass Index 32.44 (91.17 kg, 167.64 cm) sv MDM: 11:51 Patient medically screened. rn 13:51 Differential diagnosis: viral Infection, bacterial infection, UTI, pancreatitis, rn gastritis. Data reviewed: vital signs, nurses notes. 13:52 Counseling: I had a detailed discussion with the patient and/or guardian regarding: the rn historical points, exam findings, and any diagnostic results supporting the discharge/admit diagnosis, lab results, radiology results, the need for further work-up and treatment in the hospital. Response to treatment: the patient's symptoms have mildly improved after treatment, and as a result, I will admit patient. Admission orders: after a detailed discussion of the patient's condition and case, the admit orders are written by me. ED course: Will admit for milly-pancreatic inflammation and failure outpt therapy. . 08/31 12:00 Order name: Basic Metabolic Panel; Complete Time: 13:13 rn 08/31 12:00 Order name: CBC with Diff rn 08/31 12:00 Order name: Hepatic Function; Complete Time: 13:13 rn 08/31 12:00 Order name: Lipase; Complete Time: 13:13 rn 08/31 12:34 Order name: CBC Smear Scan EDMS 08/31 13:04 Order name: Urine Dipstick--Ancillary (enter results); Complete Time: 13:13 bd 08/31 12:00 Order name: IV Saline Lock; Complete Time: 13:12 rn 08/31 12:00 Order name: Labs collected and sent; Complete Time: 13:12 rn 08/31 13:04 Order name: Urine --Ancillary (enter results); Complete Time: 13:13 bd EC:30 Rate is 66 beats/min. Rhythm is regular. QRS [place] is Normal. IN interval is normal. QRS rn interval is normal. QT interval is normal. No Q waves. T waves are Normal. No ST changes noted. Clinical impression: No evidence of ischemia. Interpreted by me. Reviewed by me. Administered Medications: 12:19 Drug: morphine 4 mg Route: IVP; Site: left antecubital; iw 12:20 Drug: NS 0.9% 1000 ml Route: IV; Rate: 1000 ml; Site: left antecubital; iw 12:30 Not Given (Duplicate Order): Zofran 4 mg IVP once; over 2 minutes rn 13:11 Drug: Phenergan 12.5 mg Route: IVP; Site: left antecubital; iw 14:41 Drug: morphine 4 mg Route: IVP; Site: left antecubital; iw Disposition: 08/31/18 13:53 Hospitalization ordered by Eduar Gray for Observation. Preliminary diagnosis are Acute pancreatitis, unspecified, Intractable vomiting. - Bed requested for Telemetry/MedSurg (observation). - Status is Observation. iw - Condition is Stable. - Problem is new. - Symptoms are unchanged. UTI on Admission? No Signatures: Dispatcher [employer] EDMS Alexandria Dudley Rebecca Schmitz, RN EBONIE sv Clara Black RN RN iw Matthew Ramirez MD MD environmental engineering intern: (The following items were deleted from the chart) 15:18 13:53 Hospitalization Ordered by Eduar Gray DO for Observation. Preliminary bd diagnosis is Acute pancreatitis, unspecified; Intractable vomiting. Bed requested for Telemetry/MedSurg (observation). Status is Observation. Condition is Stable. Problem is new. Symptoms are unchanged. UTI on Admission? No. rn 15:53 15:18 08/31/2018 13:53 Hospitalization Ordered by Eduar Marina HAYNES for Observation. Preliminary diagnosis is Acute pancreatitis, unspecified; Intractable vomiting. Bed requested for Telemetry/MedSurg (observation). Status is Observation. Condition is Stable. Problem is new. Symptoms are unchanged. UTI on Admission? No. bd
--- NOTE | 2018-08-31 15:05 | P.HP ---
Certification for Inpatient Patient admitted to: Inpatient With expected LOS: >2 Midnights Patient will require the following post-hospital care: None Practitioner: I am a practitioner with admitting privileges, knowledge of patient current condition, hospital course, and medical plan of care. Services: Services provided to patient in accordance with Admission requirements found in Title 42 Section 412.3 of the Code of Federal Regulations Patient History Date of Service: 08/31/18 Primary Care Provider: Dr. Savage; GI-Dr. Rhoades Reason for admission: Epigastric abdominal pain History of Present Illness: 32-year-old female presented to the emergency room with epigastric abdominal pain. Patient presented with epigastric abdominal pain. It started yesterday. She rated the pain as intense. She has not been able to eat since yesterday at noontime. She reports increased nausea and vomiting along with fever with this. Patient reports a history of pancreatitis in the distant past. She has seen GI in the past as well. In the ER patient was evaluated. CT showed mild pancreatitis. White count 8.0 , hemoglobin 13. Lipase within normal range. LFTs unremarkable. Sodium 140, potassium 3.3. Patient was sent home. She saw her PCP as the pain worsened. She was sent back for further evaluation. The patient was reassessed and admitted for further treatment. When I saw the patient the ER, pain had improved with medication. Patient currently stable this time. Patient with history of leukemia and GERD. Allergies Latex, Natural Rubber Allergy (Severe, Verified 04/08/16 07:45) Unknown cephalexin Allergy (Mild, Verified 10/15/13 22:41) Hives gadobutrol [From Gadavist] Adverse Reaction (Verified 04/08/16 07:45) Nausea/Vomiting ondansetron [From Zofran (as hydrochloride)] Adverse Reaction (Verified 07:45) Nausea/Vomiting contrast dye Allergy (Uncoded 10/23/16 13:28) Unknown Home medications list reviewed: Yes Home Medications: Pnv Cmb#95/Ferrous Fumarate/FA [ Tablet] 1 tab PO DAILY 10/19/13 Tramadol HCl [Ultram] 50 mg PO Q4HR #35 tablet 03/12/18 - Past Medical/Surgical History Diabetic: No -: Leukemia - Remission -: GERD -: Endometriosis -: Laparotomy for endometriosis -: D and C for molar -: Appendectomy -: Tubal ligation Psychosocial/ Personal History: Patient is single. She has 4 children. 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 - Family History Father -: Hypertension - Social History Smoking Status: Never smoker Alcohol use: Yes CD- Drugs: No Caffeine use: No Place of Residence: Home Review of Systems General: Fever, As per HPI Eyes: Unremarkable ENT: Unremarkable Respiratory: Unremarkable Cardiovascular: Unremarkable Gastrointestinal: Nausea, Vomiting, Abdominal Pain, Diarrhea, Constipation, As per HPI Genitourinary: Unremarkable Musculoskeletal: Back Pain, As per HPI Integumentary: Unremarkable Neurological: Unremarkable Lymphatics: Unremarkable Physical Examination - Physical Exam General: Alert, In no apparent distress, Oriented x3, Cooperative HEENT: Atraumatic, Normocephalic, Other (Dry mucous membranes), EOMI Neck: Supple, No Thyromegaly Respiratory: Clear to auscultation bilaterally, Normal air movement Cardiovascular: Normal pulses, Regular rate/rhythm Gastrointestinal: Normal bowel sounds, Soft and benign, Non-distended, No ascites, No masses, No rebound, Tenderness (Pain to the epigastric region) Musculoskeletal: No erythema, No tenderness, No warmth Integumentary: No tenderness/swelling, No erythema, No warmth, No cyanosis Neurological: Normal speech, Normal strength at 5/5 x4 extr, Normal tone - Studies Laboratory Data (last 24 hrs) 08/31/18 12:05: WBC 8.0 D, Hgb 13.2, Hct 38.7, Plt Count 225 08/31/18 12:05: Sodium 140, Potassium 3.3 L, BUN 16, Creatinine 0.71, Glucose 101, Total Bilirubin 0.6, AST 13 L, ALT 24, Alkaline Phosphatase 71, Lipase 113 Assessment and Plan - Plan Impression: Abdominal pain, nausea and vomiting secondary to Acute mild pancreatitis etiology unknown likely viral GERD History of leukemia, currently in remission Plan: Abdominal pain, nausea and vomiting secondary to Acute mild pancreatitis etiology unknown likely viral: Will continue with aggressive IV fluids. Will keep the patient NPO. Patient with history of pancreatitis in the distant past. Will obtain abdominal ultrasound and monitor electrolytes closely. Will consult GI for further evaluation and recommendation. Will obtain blood cultures. Will continue to reassess. Once pain better controlled will it advance diet. Will continue with DVT prophylaxis-Lovenox. Will provide medication for pain and nausea. Will discuss with GI. GERD: Continue with medication IV. History of leukemia, currently in remission: Overall stable. She follows up at [facility] as an outpatient. Discharge Plan: Home Plan to discharge in: 72 Hours - Advance Directives Does patient have a Living Will: No Does patient have a Durable POA for Healthcare: No - Code Status/Comfort Care Code Status Assessed: Yes (Patient is full code.) Time Spent Managing Pts Care (In Minutes): 55
[2018-08-31 16:18] VITALS: BMI 32.3
[2018-08-31] MEDS: NA CHLORIDE 0.9% 1,000 ML IV SCH ×2 (16:37→23:48)
[2018-08-31] MEDS: HYDROMORPHONE HCL 0.5 MG/0.5 ML INJ IV PRN ×2 (16:39→21:06)
[2018-08-31 18:45] LABS: Blood Morphology Comment NOT SEEN (NOT SEEN); Platelet Estimate ADEQ; Urine White Blood Cell Casts OK
--- NOTE | 2018-08-31 19:05 | RAD REPORT ---
EXAM DESCRIPTION: US - Abdomen Exam Complete - 08/31/2018 6:43 pm CLINICAL HISTORY: Abdominal pain. acute pancreatitis COMPARISON: No comparisons FINDINGS: The liver is normal in size, shape and echotexture. No focal liver lesions or intrahepatic biliary dilatation is seen. Several small stones are present in the gallbladder. Common bile duct is normal in caliber measuring 3 mm. Both kidneys are normal in size, shape and echotexture. No hydronephrosis, focal lesion of concern or perinephric fluid. The spleen is normal in size measuring 11 cm. The pancreas and aorta are obscured by bowel gas. The visualized aspects of the IVC are grossly normal. IMPRESSION: Cholelithiasis.
[2018-08-31 20:10] LABS: Urine Appearance CLEAR; Urine Bilirubin NEGATIVE (NEG); Urine Blood TRACE (NEG); Urine Color YELLOW; Urine Glucose NEGATIVE (NEG); Urine Protein NEGATIVE (NEG); Urine Specific Gravity 1.015 (1.005-1.030); Urine Urobilinogen 0.2 mg/dL (0.2-1.0); Urine pH 5.5 (5.0-7.0)
[2018-08-31 20:24] LABS: Barbiturates NEGATIVE (NEGATIVE); Benzodiazepines NEGATIVE (NEGATIVE); Cocaine NEGATIVE (NEGATIVE); METHAMPHETAM NEGATIVE (NEGATIVE); Methadone NEGATIVE (NEGATIVE); Opiates POSITIVE (NEGATIVE); Phencyclidine NEGATIVE (NEGATIVE); THC Cannibis NEGATIVE (NEGATIVE)
--- NOTE | 2018-08-31 20:26 | RAD REPORT ---
EXAM DESCRIPTION: MRI - Cholangiogram - 08/31/2018 8:17 pm CLINICAL HISTORY: Pancreatitis, Cholelithiasis COMPARISON: Abdomen Exam Complete dated 08/31/2018; Abdomen Pelvis Wo Contrast dated 08/31/2018 FINDINGS: Three-dimensional MRCP was performed using maximum intensity projection reconstruction on the same work station. No intrahepatic biliary tree dilatation is seen. The common bile duct is normal caliber without evide nce of retained stone, stricture or mass. The pancreatic duct is not pathologically dilated. The gallbladder is unremarkable. Gallstones can be occult on MRCP imaging. Limited T2 sequences through the abdomen demonstrates no bulky adenopathy, significant free fluid or abscess. IMPRESSION: Negative MR cholangiogram.
[2018-08-31 20:37] LABS: Urine Microscopic Reflex ORDER UMIC
[2018-08-31] MEDS: Ringers Lactate 1,000 ML IV SCH (21:07)
[2018-08-31 21:14] LABS: Urine Bacteria <20 /HPF (<20); Urine Culture Reflex Order NOT NEEDED; Urine Mucus 1+ /HPF (NONE SEEN); Urine RBC <5 /HPF (NONE SEEN)
[2018-08-31] MEDS: FAMOTIDINE 20 MG/2 ML VIAL IV SCH (21:45)
[2018-08-31] MEDS: PROMETHAZINE 25 MG/ML VIAL IV PRN (21:49)
[2018-09-01] MEDS: Ringers Lactate 1,000 ML IV SCH ×4 (05:30→23:34)
[2018-09-01] MEDS: HYDROMORPHONE HCL 0.5 MG/0.5 ML INJ IV PRN ×4 (05:30→21:40)
[2018-09-01 06:00] LABS: Absolute Monocytes 0.5 K/uL (0.1-1.3); Absolute Neutrophil 2.9 K/uL (1.8-8.0); Basophils % 0.3 % (0-1.3); Eosinophils % 1.7 % (0-4.4); Hematocrit 32.9 % (36.0-45.0); Lymphocytes % 22.1 % (15.3-44.8); MPV 9.7 fL (7.6-11.3); Monocytes % 10.7 % (3.3-12.3); RBC Red Blood Cell Count 3.74 M/uL (3.86-4.86)
[2018-09-01 06:15] LABS: ALT/SGPT 22 U/L (12-78); AST/SGOT 15 U/L (15-37); Alkaline Phosphatase 56 U/L (45-117); BUN Blood Urea Nitrogen 10 mg/dL (7-18); Bicarbonate 23 mmol/L (21-32); Bilirubin Total 0.5 mg/dL (0.2-1.0); Glucose Level 85 mg/dL (74-106); Lipase 104 U/L (73-393); Magnesium 1.8 mg/dL (1.8-2.4); Phosphorus 2.2 mg/dL (2.5-4.9); Potassium 3.1 mmol/L (3.5-5.1); Protein, Total 5.5 g/dL (6.4-8.2); Sodium Level 141 mmol/L (136-145)
[2018-09-01] MEDS: ACETAMINOPHEN 500 MG TAB PO PRN ×3 (06:40→23:37)
[2018-09-01] MEDS ORDERED: MAGNESIUM SULFATE 1 gm IVPB 1 GM/100 ML BAG IV ONE (06:46)
[2018-09-01] MEDS: ENOXAPARIN 40 MG/0.4 ML SQ SCH (09:30)
[2018-09-01] MEDS: FAMOTIDINE 20 MG/2 ML VIAL IV SCH ×2 (09:30→21:37)
[2018-09-01] MEDS: KCL 20 MEQ/100 mL IVPB 20 MEQ/100 ML BAG IV SCH ×2 (09:31→09:34)
--- NOTE | 2018-09-01 11:19 | P.PN ---
Subjective Date of Service: 09/01/18 Primary Care Provider: Dr. Savage; GI-Dr. Rhoades Chief Complaint: Epigastric abdominal pain Subjective: Other (Pain slightly improved. Some nausea this morning) Physical Examination - Vital Signs Temperature: 97.1 F Blood Pressure: 117/71 Pulse: 82 Respirations: 15 Pulse Ox (%): 97 - Physical Exam General: Alert, Cooperative HEENT: Atraumatic Neck: Supple Respiratory: Clear to auscultation bilaterally Cardiovascular: Normal pulses, Regular rate/rhythm Gastrointestinal: Normal bowel sounds, Soft and benign, Non-distended, No masses , No rebound, No guarding, Tenderness (Pain to the epigastric region improved) Musculoskeletal: No erythema, No tenderness, No warmth Integumentary: No tenderness/swelling, No erythema, No warmth, No cyanosis Neurological: Normal speech, Normal strength at 5/5 x4 extr, Normal tone, Normal affect - Studies Laboratory Data (last 24 hrs) 08/31/18 12:05: WBC 8.0 D, Hgb 13.2, Hct 38.7, Plt Count 225 08/31/18 12:05: Sodium 140, Potassium 3.3 L, BUN 16, Creatinine 0.71, Glucose 101, Total Bilirubin 0.6, AST 13 L, ALT 24, Alkaline Phosphatase 71, Lipase 113 Medications List Reviewed: Yes Assessment & Plan Discharge Plan: Home Plan to discharge in: 72 Hours Physician Review Additional Text: Impression: Abdominal pain, nausea and vomiting secondary to Acute mild pancreatitis etiology unknown likely viral GERD History of leukemia, currently in remission Plan: Abdominal pain, nausea and vomiting secondary to Acute mild pancreatitis etiology unknown likely viral: Continue with aggressive IV fluids. Encourage ambulation. Once pain is better controlled then will consider advancement of diet. Will discuss with GI for further recommendation. Lipase within normal range. Will monitor and replace electrolytes. MRCP unremarkable. Abdominal ultrasound shows cholelithiasis without cholecystitis. Will also provide incentive spirometer. Likely discharge within the next 72 hr. GERD: Continue with medication IV. History of leukemia, currently in remission: Overall stable. She follows up at [facility] as an outpatient. Time Spent Managing Pts Care (In Minutes): 55
--- NOTE | 2018-09-02 01:11 | CON ---
Date of Consultation: 09/01/2018 Brief History Of Present Illness: The patient is a 32-year-old female with a history of deuce kemia in current remission, who presents to the hospital with a recurrent episode of pancreatitis. S he states that she has had an episode of epigastric abdominal pain beginning on Friday. She came to the emergency room, had a CT scan, which confirmed a very mild case of pancreatitis. She was dischar gechris from the ER and came back with worsening abdominal pain. She was admitted at that time for pain control and management of her pancreatitis. She was made n.p.o. and given IV fluids. She states abiodun t she has had episodes of pancreatitis in the past. Her last episode was related to chemotherapy. S he is uncertain if it was the causative agent, but it was temporally correlated with this initiation of chemotherapy years ago. She has not had an episode since then. She has a diet very low in fresh fruits and vegetables and eats a greasy diet as her mainstay. She states that she has predominantly epigastric pain with radiation through to her back. It does not localize to the right or left upper quadrants. It is predominantly in the epigastric region. It was associated with nausea and vomiting . She had some light-colored stool as well, similar to previous episodes in the past, but she states that the pain on this occasion is similar to that occasion. Since her admission, it has been signif icantly improved, but still remains evident in the epigastric region. She starts to have resumption of appetite, but is not terribly hungry at this time. Past Medical History: Significant for leukemia, GERD, endometriosis. Past Surgical History: Includes a laparotomy for endometriosis, D and C for molar , appende ctomy, and tubal ligation. Home Medications: Include tramadol and ferrous fumarate/ tablet. Allergies: TO LATEX, CEPHALEXIN, GADAVIST, ZOFRAN, AND IV CONTRAST DYE. Family History: Father had hypertension. 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 She denies smoking. She drinks very rarely and denies recreational drug use. Review of Systems: A 10-point review of systems other than HPI, she currently denies. Physical Examination: Vital Signs: At the time of examination, her BMI is 32.3, her blood pressure 114/67, pulse is 70, re spiratory rate 14, temperature 97.3. General: She is awake, alert, and oriented. Psychiatric: She is appropriate and conversive. HEENT: She is normocephalic. Sclerae anicteric. Mucous membranes moist. Oropharynx clear. Neck: Supple. No JVD. Chest: Normal expansion and excursion. Cardiovascular: Regular rate and rhythm. Pulmonary: Clear to auscultation bilaterally. Abdomen: Soft with mild epigastric tenderness to palpation. Negative Vasques sign. Negative psoas s ign. Negative Reyes Smith and Hansford signs. No rebound. No guarding. Laboratory Data: White blood count of 4.5, hemoglobin 11.2, her hematocrit of 32.9, platelet count i s 164. Her neutrophils are normal at 65%. Her sodium 141, potassium 3.1, chloride 111, carbon dioxi de 23, BUN 10, creatinine 0.6, glucose is 85. Her phosphorus is 2.2, magnesium is 1.8. Total biliru bin 0.5, her direct component was 0.1 on admission. AST is 15, ALT 22, alkaline phosphatase is 56. Her lipase is 104. Her urine test was negative. Her UA showed trace blood only. She had imaging performed. Her life was also checked and was 104 on admission. She additionally had imaging performed, which included an MRCP officially read as negative MR cholangiogram specifically. No int rahepatic biliary ductal dilatation seen. Common bile duct is normal caliber without evidence of ret ained stone, stricture, or mass. Pancreatic duct is not pathologically dilated. Gallbladder is unre markable. Gallstones could be occult. No bulky adenopathy, significant free fluid or abscesses. Chip poon additionally had a CT abdomen and pelvis, officially read as findings suggestive of mild acute panc reatitis, specifically pancreas suggestion of fullness in the pancreas with mild milly pancreatic hien a is noted. The gallbladder and bile ducts, no calcified stones, no ductal dilatation. She had an a bdominal ultrasound performed as well, which is officially read as cholelithiasis. Several small sto preethi are present in the gallbladder. Common bile duct is normal caliber measuring 3 mm. The liver is normal size, shape, echotexture. No focal lesions or intrahepatic biliary ductal dilatation is seen . Assessment And Plan: This is a 32-year-old female who presents with pancreatitis, uncertain etiology . A gallstone pancreatitis is a possibility. We will send lipid panel and continue serial abdominal exams. I recommend continued IV fluid hydration. No need for antibiotic coverage at this time. I will follow along with you. I have discussed the risks, benefits, and alternatives of laparoscopic, possible open cholecystectomy. If indeed this is confirmed as a likely etiology. The risks include, but are not limited to bleeding, infection, damage to surrounding tissues, need for further operatio n, procedure, injury to bile ducts, intestines. The patient agrees to proceed as indicated. Thank you for this interesting consult. I will follow along with you. KAREEM/JOSE ELIAS Voice ID: [id number] Report ID: [id number]
[2018-09-02 03:35] LABS: Absolute Lymphocytes (CBC) 1.4 K/uL (0.7-4.9); Absolute Monocytes 0.5 K/uL (0.1-1.3); Absolute Neutrophil 2.2 K/uL (1.8-8.0); Basophils % 2.2 % (0-1.3); Eosinophils % 4.2 % (0-4.4); Hematocrit 33.5 % (36.0-45.0); Lymphocytes % 31.7 % (15.3-44.8); MPV 9.9 fL (7.6-11.3); Monocytes % 11.4 % (3.3-12.3); RBC Red Blood Cell Count 3.82 M/uL (3.86-4.86)
[2018-09-02 03:54] LABS: ALT/SGPT 23 U/L (12-78); AST/SGOT 15 U/L (15-37); Albumin 3.1 g/dL (3.4-5.0); Alkaline Phosphatase 56 U/L (45-117); BUN Blood Urea Nitrogen 7 mg/dL (7-18); Bicarbonate 26 mmol/L (21-32); Bilirubin Total 0.4 mg/dL (0.2-1.0); Glucose Level 83 mg/dL (74-106); Lipase 112 U/L (73-393); Magnesium 2.1 mg/dL (1.8-2.4); Potassium 3.6 mmol/L (3.5-5.1); Protein, Total 5.9 g/dL (6.4-8.2); Sodium Level 141 mmol/L (136-145)
[2018-09-02] MEDS ORDERED: KCL 20 MEQ/100 mL IVPB 20 MEQ/100 ML BAG IV SCH (06:00)
[2018-09-02] MEDS: Ringers Lactate 1,000 ML IV SCH ×4 (06:25→21:24)
[2018-09-02] MEDS: ENOXAPARIN 40 MG/0.4 ML SQ SCH (09:15)
[2018-09-02] MEDS: ACETAMINOPHEN 500 MG TAB PO PRN (09:15)
[2018-09-02] MEDS: FAMOTIDINE 20 MG/2 ML VIAL IV SCH ×2 (09:16→21:24)
[2018-09-02] MEDS ORDERED: Ringers Lactate 1,000 ML IV ONE ×2 (10:26→12:35)
[2018-09-02] MEDS ORDERED: PIPER/TAZO/NS 3.375gm 3.375 GM/100 ML BAG IVPB ONE (10:27)
[2018-09-02] MEDS ORDERED: BUPIVACA 0.25%/EPI 0.0005%/PF 30 ML VIAL ONE (10:28)
[2018-09-02] MEDS ORDERED: MIDAZOLAM HCL 2 MG/2 ML INJ ONE (10:44)
[2018-09-02] MEDS ORDERED: PROPOFOL 200 MG/20 ML VIAL IV ONE (10:48)
[2018-09-02] MEDS ORDERED: FENTANYL CITR 100 MCG/2 ML ONE (10:48)
[2018-09-02] MEDS ORDERED: LIDOCAINE 2% MPF 5 ML VIAL ONE (10:49)
[2018-09-02] MEDS ORDERED: ONDANSETRON 4 MG/2 ML VIAL ONE (10:50)
[2018-09-02] MEDS ORDERED: ROCURONIUM 50 MG/5 ML VIAL IV ONE (10:50)
[2018-09-02] MEDS ORDERED: DEXAMETHASONE 10 MG/ML VIAL ONE (11:06)
--- NOTE | 2018-09-02 11:43 | P.OP ---
Preoperative diagnosis: Gallstone Pancreatitis Postoperative diagnosis: Gallstone Pancreatitis Primary procedure: Laparoscopic Cholecystectomy Anesthesia: GETA + Local Estimated blood loss: <5cc Specimen: Gallbladder Findings: Distended Gallbladder Complications: None Transferred to: Recovery Room Condition: Good
[2018-09-02] MEDS ORDERED: GLYCOPYRROLATE 0.2 MG/ML SYR ONE (11:44)
[2018-09-02] MEDS ORDERED: NEOSTIGMINE 1 MG/ML -10 ML VIAL ONE (11:45)
[2018-09-02] MEDS: HYDROMORPHONE HCL 1 MG/ML INJ ONE ×4 (12:05→12:34)
--- NOTE | 2018-09-02 12:15 | P.PN ---
Subjective Date of Service: 09/02/18 Primary Care Provider: Dr. Savage; GI-Dr. Rhoades Chief Complaint: Epigastric abdominal pain Subjective: Other (Patient is slightly improved but still with pain.) Physical Examination - Vital Signs Temperature: 97.8 F Blood Pressure: 129/77 Pulse: 79 Respirations: 16 Pulse Ox (%): 97 - Physical Exam General: Alert, In no apparent distress, Oriented x3, Cooperative HEENT: Atraumatic Neck: Supple Respiratory: Clear to auscultation bilaterally, Normal air movement Cardiovascular: Normal pulses, Regular rate/rhythm Gastrointestinal: Tenderness (Improved) Neurological: Normal speech, Normal strength at 5/5 x4 extr, Normal tone, Normal affect - Studies Medications List Reviewed: Yes Assessment & Plan Discharge Plan: Home Plan to discharge in: 24 Hours Physician Review Additional Text: Impression: Abdominal pain, nausea and vomiting secondary to Acute mild pancreatitis likely gallstone related with noted cholelithiasis GERD History of leukemia, currently in remission Plan: Abdominal pain, nausea and vomiting secondary to Acute mild pancreatitis likely gallstone related with noted cholelithiasis: Case discussed with surgery. Laparoscopic cholecystectomy planned for today. Anticipate improvement. Likely discharge in the next 24 hr. GERD: Continue with medication IV. History of leukemia, currently in remission: Overall stable. She follows up at [facility] as an outpatient. Time Spent Managing Pts Care (In Minutes): 55
[2018-09-02] MEDS ORDERED: KETOROLAC 30 MG/ML INJ ONE (12:38)
[2018-09-02] MEDS: PROMETHAZINE 25 MG/ML VIAL IV PRN (15:16)
[2018-09-02] MEDS: HYDROCODONE/APAP 5/325 MG TAB PO PRN ×2 (15:52→22:17)
[2018-09-02] MEDS: HYDROMORPHONE HCL 0.5 MG/0.5 ML INJ IV PRN ×2 (18:15→21:24)
--- NOTE | 2018-09-02 18:23 | EKG ---
Test Date: 2018-09-02 Test Time: 15:29:21 Instructor Hairspring: ASHOK MEASUREMENT RESULTS: Intervals: Rate: 98 MD: 158 QRSD: 80 QT: 378 QTc: 482 [place]: P: 59 MD: 158 QRS: 80 T: 28 INTERPRETIVE STATEMENTS: Normal sinus rhythm Prolonged QT Abnormal ECG Compared to ECG 03/31/2015 09:52:22 Prolonged QT interval now present Electronically Signed On 09-02-18 18:22:44 CDT by Yeison Bowie
--- NOTE | 2018-09-02 20:50 | OP ---
Date of Procedure: 09/02/2018 Surgeon: Jorge L Pruitt MD, Preoperative Diagnosis: Gallstone pancreatitis. Postoperative Diagnosis: Gallstone pancreatitis. Procedure Performed: Laparoscopic cholecystectomy. Anesthesia: General endotracheal plus local with 0.25% Marcaine. Estimated Fluid Loss: 5 cc. Specimen: Gallbladder. Findings: Distended gallbladder. Complications: None. Disposition: Transferred to recovery room in good condition. Procedure In Detail: After informed consent was obtained, the patient was brought to the operating r oom, prepped and draped in the usual sterile fashion after adequate anesthesia was achieved, a suprau mbilical area was anesthetized with 0.25% Marcaine, sharply incised. A 5-mm trocar was introduced in to the abdomen without evidence of complication. Insufflation was obtained to 15 mmHg at this time. There was no injury to vital structures upon entry the abdomen. Additional trocar sites chosen in t he right upper quadrant and epigastrium. These were both similarly anesthetized, sharply incised, an d 5 mm trocars were introduced in the abdomen without evidence of complication. The umbilical trocar was then upsized to a 12 mm under direct visualization without evidence of complication. The hilda t was then positioned head up right-side up position. Ratcheted grasper was used to grasp the hilda saucedo's gallbladder, dissect down to the triangle of Calot. The cystic duct and cystic artery were both encircled and skeletonized to obtain the critical view of safety, which was obtained at this time by clearing the posterior tissues well. After this was obtained, titanium Endo clips were placed, doubl y on the proximal side and singly on the distal side of both the cystic duct and cystic artery, ensur ing only 2 structures were entering the gallbladder. These were both ligated with the Endo Shashank wi thout any leakage from either structure. The gallbladder was then removed from the hepatic fossa wit hout evidence of complication using electrocautery, placed in EndoCatch bag, removed through umbilica l trocar. Re-insufflation was obtained at this time. The area was copiously irrigated multiple time s and suctioned completely dry. There was no additional hemostatic maneuvers required. Inspection o f the gallbladder fossa showed the clips to be in good anatomic position at the end of the procedure. The patient was then positioned in neutral position. Additional suction was performed at this time to clear out the remaining fluid. The umbilical trocar was then removed, and the umbilical trocar s ite was closed using a Morales-Litzy suture passer and 0 Vicryl in interrupted fashion with good ap proximation of tissues. The remaining trocars were then removed after completely desufflating the ab domen without evidence of complication under direct visualization. All skin incisions were copiously irrigated and closed with a 4-0 Monocryl in a running fashion. Dermabond placed over top. The lorrie ent tolerated the procedure well without evidence of complications, transferred to the PACU in good c ondition. All counts were correct at the end of the case. KAREEM/JOSE ELIAS Voice ID: [id number] Report ID: [id number]
[2018-09-02 21:03] VITALS: O2SAT 97
[2018-09-03] MEDS: HYDROMORPHONE HCL 0.5 MG/0.5 ML INJ IV PRN ×2 (03:17→09:31)
[2018-09-03] MEDS: Ringers Lactate 1,000 ML IV SCH (04:52)
[2018-09-03] MEDS: HYDROCODONE/APAP 5/325 MG TAB PO PRN (04:52)
[2018-09-03 05:15] LABS: Absolute Lymphocytes (CBC) 1.1 K/uL (0.7-4.9); Absolute Monocytes 0.7 K/uL (0.1-1.3); Absolute Neutrophil 6.7 K/uL (1.8-8.0); Basophils % 0.2 % (0-1.3); Hematocrit 34.5 % (36.0-45.0); Lymphocytes % 13.2 % (15.3-44.8); MPV 9.5 fL (7.6-11.3); Monocytes % 8.7 % (3.3-12.3); RBC Red Blood Cell Count 4.06 M/uL (3.86-4.86)
[2018-09-03 05:26] LABS: ALT/SGPT 41 U/L (12-78); AST/SGOT 26 U/L (15-37); Albumin 3.5 g/dL (3.4-5.0); Alkaline Phosphatase 58 U/L (45-117); BUN Blood Urea Nitrogen 6 mg/dL (7-18); Bicarbonate 28 mmol/L (21-32); Bilirubin Total 0.4 mg/dL (0.2-1.0); Glucose Level 116 mg/dL (74-106); Lipase 73 U/L (73-393); Magnesium 2.2 mg/dL (1.8-2.4); Protein, Total 6.4 g/dL (6.4-8.2); Sodium Level 139 mmol/L (136-145)
[2018-09-03] MEDS: ENOXAPARIN 40 MG/0.4 ML SQ SCH (07:52)
[2018-09-03] MEDS: FAMOTIDINE 20 MG/2 ML VIAL IV SCH (07:52)
[2018-09-03 08:43] VITALS: BP 116/77; TEMP 97
--- NOTE | 2018-09-03 09:09 | P.DS ---
Admission Date: 08/31/18 Discharge Date: 09/03/18 Primary Care Provider: Dr. Savage; GI-Dr. Rhoades Disposition: ROUTINE DISCHARGE Discharge Condition: GOOD Reason for Admission: Epigastric abdominal pain Consultations: GI-Dr. Rhoades Surgery-Dr. Pruitt Procedures: MRCP: FINDINGS: Three-dimensional MRCP was performed using maximum intensity projection reconstruction on the same work station. No intrahepatic biliary tree dilatation is seen. The common bile duct is normal caliber without evidence of retained stone, stricture or mass. The pancreatic duct is not pathologically dilated. The gallbladder is unremarkable. Gallstones can be occult on MRCP imaging. Limited T2 sequences through the abdomen demonstrates no bulky adenopathy, significant free fluid or abscess. IMPRESSION: Negative MR cholangiogram. ABUS: FINDINGS: The liver is normal in size, shape and echotexture. No focal liver lesions or intrahepatic biliary dilatation is seen. Several small stones are present in the gallbladder. Common bile duct is normal in caliber measuring 3 mm. Both kidneys are normal in size, shape and echotexture. No hydronephrosis, focal lesion of concern or perinephric fluid. The spleen is normal in size measuring 11 cm. The pancreas and aorta are obscured by bowel gas. The visualized aspects of the IVC are grossly normal. IMPRESSION: Cholelithiasis. Surgery: Surgeon-Dr. Pruitt Date: 09.02.18 Preop diagnosis: Gallstone pancreatitis Postop diagnosis: Gallstone pancreatitis Procedure: Lap. Paula Medical Problem List: Abdominal pain, nausea and vomiting secondary to Acute gallstone pancreatitis status post Lap. cholecystectomy GERD History of leukemia, currently in remission Brief History of Present Illness: 32-year-old female presented to the emergency room with epigastric abdominal pain. Patient presented with epigastric abdominal pain. It started yesterday. She rated the pain as intense. She has not been able to eat since yesterday at noontime. She reports increased nausea and vomiting along with fever with this. Patient reports a history of pancreatitis in the distant past. She has seen GI in the past as well. In the ER patient was evaluated. CT showed mild pancreatitis. White count 8.0 , hemoglobin 13. Lipase within normal range. LFTs unremarkable. Sodium 140, potassium 3.3. Patient was sent home. She saw her PCP as the pain worsened. She was sent back for further evaluation. The patient was reassessed and admitted for further treatment. When I saw the patient the ER, pain had improved with medication. Patient currently stable this time. Patient with history of leukemia and GERD. Hospital Course: Patient presented with abdominal pain, nausea and vomiting. Patient found have acute pancreatitis. Abdominal ultrasound showed cholelithiasis. MRCP unremarkable. Gallstone pancreatitis was suspected. Patient seen and evaluated by GI and surgery. Surgery recommended intervention. Patient had laparoscopic cholecystectomy. Patient tolerated procedure well. At discharge patient will continue with bland, soft GI diet. A limited supply of medication- tramadol 50 mg 1 pill twice daily as needed for pain will be provided. Recommendation also includes: No heavy lifting, pushing or pulling. 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 Recommend to follow up with surgery in 1 week to follow up this hospitalization. Patient may follow up with GI in 2-4 weeks to follow up this hospitalization. Patient with history of GERD. At discharge she may continue with Pepcid 20 mg 1 pill twice daily. Recommend to follow up with GI as an outpatient to further address. Lifestyle modification education will be provided. Vital Signs/Physical Exam: Temp Pulse Resp BP Pulse Ox 97 F 77 18 116/77 98 09/03/18 07:50 09/03/18 07:50 09/03/18 07:50 09/03/18 07:50 09/03/18 07:50 General: Alert, In no apparent distress, Oriented x3, Cooperative HEENT: Atraumatic Neck: Supple Respiratory: Clear to auscultation bilaterally, Normal air movement Cardiovascular: Normal pulses, Regular rate/rhythm Gastrointestinal: Normal bowel sounds, Soft and benign, Non-distended, No tenderness, No masses, No rebound, No guarding Musculoskeletal: No erythema, No tenderness, No warmth Integumentary: No tenderness/swelling, No erythema, No warmth, No cyanosis Neurological: Normal speech, Normal strength at 5/5 x4 extr, Normal tone, Normal affect Laboratory Data at Discharge: WBC 8.6 K/uL (4.3-10.9) D 09/03/18 04:46 Hgb 12.1 g/dL (12.0-15.0) 09/03/18 04:46 Hct 34.5 % (36.0-45.0) L 09/03/18 04:46 Plt Count 246 K/uL (152-406) D 09/03/18 04:46 Sodium 139 mmol/L (136-145) 09/03/18 04:46 Potassium 4.0 mmol/L (3.5-5.1) 09/03/18 04:46 BUN 6 mg/dL (7-18) L 09/03/18 04:46 Creatinine 0.63 mg/dL (0.55-1.3) 09/03/18 04:46 Glucose 116 mg/dL (74-106) H 09/03/18 04:46 Phosphorus 2.2 mg/dL (2.5-4.9) L 09/01/18 05:29 Magnesium 2.2 mg/dL (1.8-2.4) 09/03/18 04:46 Total Bilirubin 0.4 mg/dL (0.2-1.0) 09/03/18 04:46 AST 26 U/L (15-37) 09/03/18 04:46 ALT 41 U/L (12-78) 09/03/18 04:46 Alkaline Phosphatase 58 U/L (45-117) 09/03/18 04:46 Triglycerides 67 mg/dL (<150) 09/02/18 03:03 Cholesterol 125 mg/dL (<200) 09/02/18 03:03 HDL Cholesterol 52 mg/dL (40-60) 09/02/18 03:03 Cholesterol/HDL Ratio 2.40 09/02/18 03:03 Lipase 73 U/L (73-393) 09/03/18 04:46 Home Medications: Cetirizine HCl [Zyrtec] 10 mg PO DAILY 08/31/18 Lisdexamfetamine Dimesylate [Vyvanse] 50 mg PO DAILY 08/31/18 Famotidine [Pepcid] 20 mg PO BID #60 tab 09/03/18 Tramadol HCl [Ultram] 50 mg PO BID PRN #10 tablet 09/03/18 New Medications: Famotidine [Pepcid] 20 mg PO BID #60 tab Tramadol HCl [Ultram] 50 mg PO BID PRN #10 tablet PRN Reason: Pain Scale 2-4 (Mild) Patient Discharge Instructions: 1. Recommend a follow up with her PCP in 1 week to follow up hospitalization. 2. Patient presented with abdominal pain, nausea and vomiting. Patient found have acute pancreatitis. Abdominal ultrasound showed cholelithiasis. MRCP unremarkable. Gallstone pancreatitis was suspected. Patient seen and evaluated by GI and surgery. Surgery recommended intervention. Patient had laparoscopic cholecystectomy. Patient tolerated procedure well. At discharge patient will continue with bland, soft GI diet. A limited supply of medication-tramadol 50 mg 1 pill twice daily as needed for pain will be provided. Recommendation also includes: No heavy lifting, pushing or pulling. 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 Recommend to follow up with surgery in 1 week to follow up this hospitalization. Patient may follow up with GI in 2-4 weeks to follow up this hospitalization. 3. Patient with history of GERD. At discharge she may continue with Pepcid 20 mg 1 pill twice daily. Recommend to follow up with GI as an outpatient to further address. Lifestyle modification education will be provided. Diet: [place] Activity: No lifting more than 10 lbs Followup: Jorge L Pruitt MD [ACTIVE - CAN ADMIT] - Time spent managing pt's care (in minutes): 55
[2018-09-03] MEDS: PROMETHAZINE 25 MG/ML VIAL IV PRN (09:37)
== END 2018-09-03 11:40 | disposition home or self-care (01) | DRG 418 ==
LOC: ER 11:26 → ERHOLD 14:37 → 2ND 15:45
PROVIDERS: ADMIT Family Medicine; ATTEND Family Medicine
PROC: 0FT44ZZ Resection of Gallbladder, Percutaneous Endoscopic Approach (ICD-10-PCS; principal; 2018-09-02 11:30)
DX: K85.10 Biliary acute pancreatitis without necrosis or infection (principal); C95.91 Leukemia, unspecified, in remission; K21.9 Gastro-esophageal reflux disease without esophagitis
CPT/HCPCS: 36415; 74176; 74181; 76700; 80048; 80053; 80061; 80076; 80307; 81003; 81015; 81025; 83690; 83735; 84100; 85025; 87040; 87493; 88304; 93005; 96361; 96365; 96367; 96374; 96375; 99284; 99285; J1100; J1170; J1650; J2250; J2405; J2543; J2550; J2704; J2710; J3010; J3475; J7030

== ENCOUNTER 2018-09-26 04:26 | Emergency (ER) | payer BC ==
--- OUTSIDE RECORDS SUMMARY | 2018-09-26 04:29 | XMS REPORT ---
[...] End Status Dosage System Date Date Xanax [facility] 04411371300 0.5 MG Orally Active 1 tablet once a day prn anxiety Singulair [facility] 52746711749 10 MG Orally Active 1 tablet Once a day in the evening Loestrin [facility] 85212694839 1.5-30 MG-MCG Active 1 tablet .5 (21) Orally Once a day Vyvanse [facility] 44613240323 50 MG Orally July 23, Active 1 capsule Once a day 2018 in the morning Flonase [facility] 09137426136 50 MCG/ACT Active 1 spray in Nasally Once a each day nostril Effexor XR [facility] 54697778241 37.5 MG Orally Active 1 capsule Once a day with food Nexium [facility] 45703013694 20 MG Orally Active 1 capsule Once a day Biotin [facility] 46637869037 5000 MCG Orally Active 1 tablet Once a day ProAir [facility] 81543492289 108 (90 Base) Active 2 puffs as RespiClick MCG/ACT needed Inhalation every 6 hrs Diclofenac [facility] 70212294960 75 MG Orally June 22, Active 1 tablet Sodium Twice a day prn 2018 with food pain or milk Results No Known Results Summary Purpose eClinicalWorks Submission
--- OUTSIDE RECORDS SUMMARY | 2018-09-26 04:29 | XMS REPORT ---
[...] End Status Dosage System Date Date Nexium [facility] 59480209697 20 MG Orally Active 1 capsule Once a day Effexor XR [facility] 26385277006 37.5 MG Orally Active 1 capsule Once a day with food Biotin [facility] 65061769593 5000 MCG Orally Active 1 tablet Once a day Loestrin [facility] 60218330337 1.5-30 MG-MCG Active 1 tablet 1.5/30 (21) Orally Once a day Singulair [facility] 01990116237 10 MG Orally Active 1 tablet Once a day in the evening Vyvanse [facility] 41020758248 50 MG Orally Active 1 capsule Once a day in the morning ProAir [facility] 37856534696 108 (90 Base) Active 2 puffs as RespiClick MCG/ACT needed Inhalation every 6 hrs Flonase [facility] 62778731223 50 MCG/ACT Active 1 spray in Nasally Once a each day nostril Results No Known Results Summary Purpose eClinicalWorks Submission
--- OUTSIDE RECORDS SUMMARY | 2018-09-26 04:29 | XMS REPORT ---
[...] Status Dosage System Date Date Nexium [facility] 32699631438 20 MG Orally Active 1 capsule Once a day Singulair [facility] 68687050352 10 MG Orally Active 1 tablet Once a day in the evening Vyvanse [facility] 74906762365 50 MG Orally Active 1 capsule Once a day in the morning Diclofenac [place] 75641326844 75 MG Orally June 22, Active 1 tablet Sodium Twice a day prn 2019 with food pain or milk Loestrin [facility] 06532838224 1.5-30 MG-MCG Active 1 tablet .5 () Orally Once a day Biotin [facility] 30834671428 5000 MCG Orally Active 1 tablet Once a day Effexor XR [facility] 88930171038 37.5 MG Orally Active 1 capsule Once a day with food Xanax [facility] 78869624333 0.5 MG Orally Active 1 tablet once a day prn anxiety Flonase [facility] 85210714240 50 MCG/ACT Active 1 spray in Nasally Once a each day nostril ProAir [facility] 92369998945 108 (90 Base) Active 2 puffs as RespiClick MCG/ACT needed Inhalation every 6 hrs Results No Known Results Summary Purpose eClinicalWorks Submission
--- OUTSIDE RECORDS SUMMARY | 2018-09-26 04:29 | XMS REPORT ---
[...] End Status Dosage System Date Date Xanax [facility] 86233021802 0.5 MG Orally May 04, Active 1 tablet once a day prn [address] [facility] 46454512261 50 MCG/ACT Active 1 spray in Nasally Once a each day nostril Nexium [facility] 21989100915 20 MG Orally Active 1 capsule Once a day Singulair ND 53587325080 10 MG Orally Active 1 tablet Once a day in the evening Biotin [facility] 78899485809 5000 MCG Orally Active 1 tablet Once a day Effexor XR [facility] 27934855041 37.5 MG Orally Active 1 capsule Once a day with food Vyvanse [facility] 74972026167 50 MG Orally Active 1 capsule Once a day in the morning ProAir [facility] 37787961292 108 (90 Base) Active 2 puffs as RespiClick MCG/ACT needed Inhalation every [address] [facility] 65725443980 1.5-30 MG-MCG Active 1 tablet 1.5/30 (21) Orally Once a day Results No Known Results Summary Purpose eClinicalWorks Submission
--- OUTSIDE RECORDS SUMMARY | 2018-09-26 04:29 | XMS REPORT ---
:1985 Author Organization eClinicalWorks Care Team Providers Name Role Phone Savage, Na Provider Role Unavailable Allergies, Adverse Reactions, Alerts Substance Reaction Event Type Cephalexin Info Not Available Drug Allergy Problems Problem Type Condition Code Onset Dates Condition Status Assessment Fever, unspecified fever cause R50.9 Active Problem Hyperlipidemia E78.5 Active Assessment Nausea with vomiting, unspecified R11.2 Active Problem 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 Active Assessment Diarrhea, unspecified R19.7 Active Problem Attention deficit hyperactivity F90.2 Active disorder (ADHD), combined type Problem Incontinence R32 Active Problem Tinnitus H93.19 Active Problem Stressful life events affecting Z63.79 Active family and household Problem Seasonal allergic rhinitis, J30.2 Active unspecified trigger Assessment Acute pancreatitis, unspecified K85.90 Active complication status, unspecified pancreatitis type Problem Right anterior knee pain M25.[address] of the abdomen R93.5 Active Problem Depression with anxiety F41.8 Active [...] Start End Status Dosage System Date Date Loestrin [facility]NOTE 2] 47469016016 1.5-30 MG-MCG Active 1 tablet .530 (21) Orally Once a day Flonase [facility] [place]NOTE 2] 04336024080 50 MCG/ACT Active 1 spray in Nasally Once a each day nostril Xanax [facility]NOTE 2] 35565944078 0.5 MG Orally Active 1 tablet once a day prn anxiety Vyvanse [facility] [place]NOTE 2] 80106270458 50 MG Orally July 23, Active 1 capsule Once a day 2019 in the morning Nexium [facility]NOTE 2] 87572783603 20 MG Orally Active 1 capsule Once a day Singulair [facility] [place]NOTE 2] 93874165007 10 MG Orally Active 1 tablet Once a day in the evening Biotin [facility] [place]NOTE 2] 88248105573 5000 MCG Orally Active 1 tablet Once a day Diclofenac [facility] [place]NOTE 2] 30226839093 75 MG Orally June 22, Active 1 tablet Sodium Twice a day prn 2018 with food pain or milk ProAir [facility] [place]NOTE 2] 08669515993 108 (90 Base) Active 2 puffs as RespiClick MCG/ACT needed Inhalation every 6 hrs Results No Known Results Summary Purpose eClinicalWorks Submission
[2018-09-26 05:31] LABS: MPV 10.4 fL (7.6-11.3)
[2018-09-26] MEDS ORDERED: NA CHLORIDE 0.9% 1,000 ML ONE (05:31)
[2018-09-26] MEDS ORDERED: KETOROLAC 30 MG/ML INJ ONE (05:36)
[2018-09-26 05:39] LABS: Absolute Lymphocytes (CBC) 2.7 K/uL (0.7-4.9); Absolute Monocytes 0.5 K/uL (0.1-1.3); Absolute Neutrophil 4.2 K/uL (1.8-8.0); Basophils % 0.2 % (0-1.3); Eosinophils % 2.9 % (0-4.4); Hematocrit 38.1 % (36.0-45.0); Lymphocytes % 34.8 % (15.3-44.8); Monocytes % 7.2 % (3.3-12.3); RBC Red Blood Cell Count 4.31 M/uL (3.86-4.86)
[2018-09-26 05:46] LABS: Barbiturates NEGATIVE (NEGATIVE); Benzodiazepines NEGATIVE (NEGATIVE); Cocaine NEGATIVE (NEGATIVE); METHAMPHETAM POSITIVE (NEGATIVE); Methadone NEGATIVE (NEGATIVE); Opiates NEGATIVE (NEGATIVE); Phencyclidine NEGATIVE (NEGATIVE); THC Cannibis NEGATIVE (NEGATIVE)
[2018-09-26 05:47] LABS: ALT/SGPT 22 U/L (12-78); AST/SGOT 11 U/L (15-37); Albumin 3.9 g/dL (3.4-5.0); Alkaline Phosphatase 76 U/L (45-117); BUN Blood Urea Nitrogen 17 mg/dL (7-18); Bicarbonate 26 mmol/L (21-32); Bilirubin Direct 0.2 mg/dL (0-0.2); Bilirubin Total 0.7 mg/dL (0.2-1.0); CKMB Creatine Kinase MB < 1.0 ng/mL (0.3-3.6); Creatine Phosphokinase 185 U/L (26-192); Glucose Level 107 mg/dL (74-106); Lipase 114 U/L (73-393); Magnesium 2.2 mg/dL (1.8-2.4); Potassium 3.5 mmol/L (3.5-5.1); Protein, Total 7.1 g/dL (6.4-8.2); Sodium Level 142 mmol/L (136-145); Troponin (Emerg Dept Use Only) < 0.02 ng/mL (0.0-0.045)
[2018-09-26 05:48] LABS: Protime INR 1.02
[2018-09-26 06:24] LABS: Urine Blood 2+ (NEG); Urine Glucose NEGATIVE (NEG); Urine Protein 1+ (NEG); Urine Specific Gravity >1.030 (1.005-1.030); Urine pH 5.5 (5.0-7.0)
--- NOTE | 2018-09-26 06:38 | ER ---
Nurse's Notes [facility] Name: Snow Argueta Age: 32 yrs Sex: Female : 1985 Arrival Date: 09/26/2018 Time: 04:31 Bed 14 Private MD: Diagnosis: Epileptic seizures related to external causes, not intractable, without status epilepticus;Concussion without loss of consciousness Presentation: 09/26 04:52 Presenting complaint: Patient states: that she woke up at 0500 09/25/18 with multiple ak1 bruising and body aches. pt with a hx seizures with her chemo treatments. pt does not take medications for seizures. pt came to ER this morning due to increased body aches and "feeling off". Transition of care: patient was not received from another setting of care. Onset of symptoms was September 25, 2018. Risk Assessment: Do you want to hurt yourself or someone else? Patient reports no desire to harm self or others. Initial Sepsis Screen: Does the patient meet any 2 criteria? No. Patient's initial sepsis screen is negative. Does the patient have a suspected source of infection? No. Patient's initial sepsis screen is negative. Care prior to arrival: None. 04:52 Method Of Arrival: Ambulatory ak1 04:52 Acuity: LEONEL 3 ak1 Triage Assessment: 04:50 General: Appears in no apparent distress. Behavior is calm, cooperative. Pain: ak1 Complains of pain in neck, body aches. EENT: Lesions noted. Neuro: Level of Consciousness is awake, alert, obeys commands, Oriented to person, place, time, situation, Appropriate for age Manager Oracle are equal bilaterally Moves all extremities. Gait is steady, Speech is normal, Facial symmetry appears normal. Cardiovascular: No deficits noted. Respiratory: No deficits noted. GI: No signs and/or symptoms were reported involving the gastrointestinal system. : No signs and/or symptoms were reported regarding the genitourinary system. Derm: Reports bruising to left eye, nasal bridge. right knee, left elbow. Musculoskeletal: Reports body aches and neck pain. MEDICAL DRIVER: 04:48 LMP 09/25/2018 ak1 Historical: - Allergies: 04:50 Cephalexin; ak1 04:50 Gadavist; ak1 04:50 Latex, Natural Rubber; ak1 04:50 Zofran; ak1 - Home Meds: 04:50 Vyvanse 40 mg Oral cap 1 cap once daily [Active]; Nexium Oral [Active]; ak1 - PMHx: 04:50 Endometrosis; GERD; Leukemia; ADD/ADHD; ak1 - PSHx: 04:50 Appendectomy; laproscopic sx for endometriosis; Tubal ligation; Cholecystectomy; ak1 - Immunization history:: Adult Immunizations up to date. - Social history:: Smoking status: Patient/guardian denies using tobacco. - Ebola Screening: : No symptoms or risks identified at this time. Screenin:54 Abuse screen: Denies threats or abuse. Denies injuries from another. Nutritional ak1 screening: No deficits noted. Tuberculosis screening: No symptoms or risk factors identified. Fall Risk None identified. Assessment: 05:18 Reassessment: Patient appears in no apparent distress at this time. No changes from ak1 previously documented assessment. Patient and/or family updated on plan of care and expected duration. Pain level reassessed. Patient is alert, oriented x 3, equal unlabored respirations, skin warm/dry/pink. see triage assessment. 06:25 Reassessment: Patient appears in no apparent distress at this time. No changes from ak1 previously documented assessment. Patient and/or family updated on plan of care and expected duration. Pain level reassessed. Patient is alert, oriented x 3, equal unlabored respirations, skin warm/dry/pink. 06:57 Reassessment: Patient appears in no apparent distress at this time. Patient and/or jd3 family updated on plan of care and expected duration. Pain level reassessed. Patient is alert, oriented x 3, equal unlabored respirations, skin warm/dry/pink. pt reported understanding of discharge instructions. Vital Signs: 04:48 BP 133 / 92; Pulse 87; Resp 18; Temp 97.7(O); Pulse Ox 99% on R/A; Weight 86.18 kg (R); ak1 Height 5 ft. 6 in. (167.64 cm) (R); Pain 7/10; 06:07 BP 121 / 83; Pulse 58; Resp 14; Temp 97.9; Pulse Ox 100% ; ak1 04:48 Body Mass Index 30.67 (86.18 kg, 167.64 cm) ak1 Kameron Coma Score: 04:50 Eye Response: spontaneous(4). Verbal Response: oriented(5). Motor Response: obeys ak1 commands(6). Total: 15. ED Course: 04:31 Patient arrived in ED. ag3 04:48 Luz Chopra RN is Primary Nurse. ak1 04:50 Arm band placed on Patient placed in an exam room, on a stretcher, on pulse oximetry, ak1 Patient notified of wait time. 04:54 Triage completed. ak1 04:54 Patient has correct armband on for positive identification. Bed in low position. Call ak1 light in reach. Side rails up X 1. Pulse ox on. NIBP on. 04:55 Seizure precautions initiated. ak1 05:07 Juanito Ralph MD is Attending Physician. tw4 05:42 CT Head Brain wo Cont In Process Unspecified. EDMS 05:42 Inserted saline lock: 22 gauge in right antecubital area, using aseptic technique. cm6 06:07 No provider procedures requiring assistance completed. ak1 06:35 Mil Jane MD is Referral Physician. tw4 06:57 IV discontinued, intact, bleeding controlled, No redness/swelling at site. Pressure jd3 dressing applied. Administered Medications: 05:36 Drug: TORadol 30 mg Route: IVP; Site: right antecubital; ak1 05:58 Follow up: Response: No adverse reaction ak1 05:37 Drug: NS 0.9% 1000 ml Route: IV; Rate: 1 bolus; Site: right antecubital; ak1 06:56 Follow up: Response: No adverse reaction; IV Status: Completed infusion; IV Intake: jd3 1000ml 06:55 Drug: Dilantin 300 mg Route: PO; jd3 06:56 Follow up: Response: Medication administered at discharge. jd3 Intake: 06:56 IV: 1000ml; Total: 1000ml. jd3 Outcome: 06:25 Condition: stable ak1 06:37 Discharge ordered by . tw4 06:57 Discharged to home ambulatory, with family. jd3 06:57 Discharge instructions given to patient, family, Instructed on discharge instructions, follow up and referral plans. medication usage, Demonstrated understanding of instructions, follow-up care, medications, Prescriptions given X 1. 06:58 Patient left the ED. jd3 Signatures: [facility] Luz Chopra RN RN ak1 Rosas Platt RN RN jd3 Juanito Ralph MD MD tw4 Yuli Bowen ag3 Paloma Krueger cm6
--- NOTE | 2018-09-26 06:38 | EDPHYS ---
Physician Documentation [facility] [place] Name: Snow Argueta Age: 32 yrs Sex: Female : 1985 Arrival Date: 09/26/2018 Time: 04:31 Bed 14 Private MD: ED Physician Juanito Ralph HPI: 09/26 05:42 This 32 yrs old Female presents to ER via Ambulatory with complaints of tw4 Probable Seizure. 05:42 The patient presents after having a possible seizure episode, sore all over and feels tw4 the same when she had seizure previously. Context: occurred at home. Seizure Hx: Cause: unknown. Associated injury: Head/face:. The patient has not experienced similar symptoms in the past. 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 - Social history:: Smoking status: Patient/guardian denies using tobacco. - Ebola Screening: : No symptoms or risks identified at this time. ROS: 05:42 Constitutional: Negative for fever, chills, and weight loss, Eyes: Negative for injury, tw4 pain, redness, and discharge, Cardiovascular: Negative for chest pain, palpitations, and edema, Respiratory: Negative for shortness of breath, cough, wheezing, and pleuritic chest pain, Abdomen/GI: Negative for abdominal pain, nausea, vomiting, diarrhea, and constipation, Back: Negative for injury and pain, MS/Extremity: Negative for injury and deformity. 05:42 Neuro: Positive for seizure activity. Exam: 05:42 Constitutional: This is a well developed, well nourished patient who is awake, alert, tw4 and in no acute distress. Head/Face: Normocephalic, atraumatic. Chest/axilla: Normal chest wall appearance and motion. Nontender with no deformity. No lesions are appreciated. Cardiovascular: Regular rate and rhythm with a normal S1 and S2. No gallops, murmurs, or rubs. Normal PMI, no JVD. No pulse deficits. Respiratory: Lungs have equal breath sounds bilaterally, clear to auscultation and percussion. No rales, rhonchi or wheezes noted. No increased work of breathing, no retractions or nasal flaring. Abdomen/GI: Soft, non-tender, with normal bowel sounds. No distension or tympany. No guarding or rebound. No evidence of tenderness throughout. Vital Signs: 04:48 BP 133 / 92; Pulse 87; Resp 18; Temp 97.7(O); Pulse Ox 99% on R/A; Weight 86.18 kg (R); ak1 Height 5 ft. 6 in. (167.64 cm) (R); Pain 7/10; 06:07 BP 121 / 83; Pulse 58; Resp 14; Temp 97.9; Pulse Ox 100% ; ak1 04:48 Body Mass Index 30.67 (86.18 kg, 167.64 cm) ak1 [place] Coma Score: 04:50 Eye Response: spontaneous(4). Verbal Response: oriented(5). Motor Response: obeys ak1 commands(6). Total: 15. MDM: 05:07 Patient medically screened. tw4 05:42 Data reviewed: vital signs, nurses notes. Counseling: I had a detailed discussion with tw4 the patient and/or guardian regarding: the historical points, exam findings, and any diagnostic results supporting the discharge/admit diagnosis. 06:35 Differential diagnosis: drug overdose, seizure. Data interpreted: Pulse oximetry: tw4 Interpretation: normal. Special discussion: Based on the patient's history, exam and DX evaluation, there is no indication for emergent intervention or inpatient TX. It is understood by the patient/guardian that if the SXs persist or worsen they need to return immediately for re-evaluation. I discussed with the patient/guardian in detail that at this point there is no indication for admission to the hospital. It is understood, however, that if the symptoms persist or worsen the patient needs to return immediately for re-evaluation. 06:41 ED course: CT head negative for acute changes. tw4 09/26 05:00 Order name: UDS; Complete Time: 06:33 09/26 06:33 Interpretation: Normal except: METHAMPHETAMINE POSITIVE. 09/26 05:00 Order name: Basic Metabolic Panel; Complete Time: 06:33 4 09/26 06:33 Interpretation: Normal except: CL 109; GLUC 107; GFR 84. 09/26 05:00 Order name: CBC with Diff; Complete Time: 06:34 09/26 06:34 Interpretation: Normal except: MCV 88.2. 09/26 05:00 Order name: Ckmb; Complete Time: 06:34 4 09/26 06:34 Interpretation: Within normal limits: CKMB < 1.0. 09/26 05:00 Order name: CPK; Complete Time: 06:34 09/26 06:34 Interpretation: Within normal limits: CPK 185. 09/26 05:00 Order name: Hepatic Function; Complete Time: 06:34 09/26 06:34 Interpretation: Within normal limits: AST 11. 09/26 05:00 Order name: CT Head Brain wo Cont 09/26 05:00 Order name: Lipase; Complete Time: 06:34 09/26 06:34 Interpretation: Within normal limits: LIP 114. 09/26 05:00 Order name: Magnesium 09/26 05:00 Order name: Protime (+inr) 09/26 05:00 Order name: Ptt, Activated 09/26 05:00 Order name: Troponin (emerg Dept Use Only) 09/26 05:29 Order name: Urine Dipstick--Ancillary (enter results); Complete Time: 06:34 09/26 06:34 Interpretation: Normal except: UBLD 2+; UPROT 1+. 09/26 05:29 Order name: Urine --Ancillary (enter results) 09/26 05:00 Order name: EKG; Complete Time: 05:02 09/26 05:00 Order name: Cardiac monitoring; Complete Time: 06:07 09/26 05:00 Order name: EKG - Nurse/Tech; Complete Time: 05:36 09/26 05:00 Order name: IV Saline Lock; Complete Time: 05:18 tw4 09/26 05:00 Order name: Labs collected and sent; Complete Time: 05:18 tw4 09/26 05:00 Order name: NPO; Complete Time: 05:17 4 09/26 05:00 Order name: O2 Per Protocol; Complete Time: 05:17 4 09/26 05:00 Order name: O2 Sat Monitoring; Complete Time: 05:18 tw4 09/26 05:00 Order name: Urine Dipstick-Ancillary (obtain specimen); Complete Time: 05:33 tw4 EC:41 Rate is 63 beats/min. Rhythm is regular. QRS [place] is Normal. [place] interval is normal. QRS tw4 interval is normal. QT interval is normal. T waves are Normal. No ST changes noted. Clinical impression: Normal ECG. Interpreted by me. Reviewed by me. Administered Medications: 05:36 Drug: TORadol 30 mg Route: IVP; Site: right antecubital; ak1 05:58 Follow up: Response: No adverse reaction ak1 05:37 Drug: NS 0.9% 1000 ml Route: IV; Rate: 1 bolus; Site: right antecubital; ak1 06:56 Follow up: Response: No adverse reaction; IV Status: Completed infusion; IV Intake: jd3 1000ml 06:55 Drug: Dilantin 300 mg Route: PO; jd3 06:56 Follow up: Response: Medication administered at discharge. jd3 Disposition: 09/26/18 06:37 Discharged to Home. Impression: Epileptic seizures related to external causes, not intractable, without status epilepticus, Concussion without loss of consciousness. - Condition is Stable. - Discharge Instructions: Contusion, Epilepsy, Head Injury, Adult. - Prescriptions for Dilantin K[place] 100 mg Oral Capsule - take 1 capsule by ORAL route every 8 hours; 30 capsule. - Medication Reconciliation Form, Thank You Letter, Antibiotic Education, Prescription Opioid Use form. - Follow up: Mil Jane MD; When: Upon discharge from the Emergency Department; Reason: If symptoms return, Recheck today's complaints, Continuance of care. - Problem is new. - Symptoms have improved. Signatures: Dispatcher [employer] EDMS Luz Chopra RN RN ak1 Rosas Platt RN RN jd3 Juanito Ralph MD MD tw4 Corrections: (The following items were deleted from the chart) 06:58 06:37 09/26/2018 06:37 Discharged to Home. Impression: Epileptic seizures related to jd3 external causes, not intractable, without status epilepticus; Concussion without loss of consciousness. Condition is Stable. Forms are Medication Reconciliation Form, Thank You Letter, Antibiotic Education, Prescription Opioid Use. Follow up: Mil Jane; When: Upon discharge from the Emergency Department; Reason: If symptoms return, Recheck today's complaints, Continuance of care. Problem is new. Symptoms have improved. tw4
[2018-09-26] MEDS ORDERED: PHENYTOIN ER 100 MG CAP PO ONE (06:59)
[2018-09-26 07:13] VITALS: BP 121/83; TEMP 97.9; O2SAT 100
--- NOTE | 2018-09-27 07:57 | EKG ---
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
--- NOTE | 2018-09-28 11:10 | RAD REPORT ---
EXAM DESCRIPTION: CT - Head Brain Wo Cont - 09/26/2018 5:52 am CLINICAL HISTORY: The patient is 32 years old and is Female; SYNCOPE TECHNIQUE: Axial computed tomography images of the head/brain without intravenous contrast. Sagitt al and coronal reformatted images were created and reviewed. This CT exam was performed using one o r more of the following dose reduction techniques: automated exposure control, adjustment of the mA and/or kV according to patient size, and/or use of iterative reconstruction technique. COMPARISON: No relevant prior studies available. FINDINGS: BRAIN: Unremarkable. The chun-white matter differentiation is preserved . No hemorrhag e. No significant white matter disease. No edema. No extra-axial fluid collections. VENTRICLES: Unremarkable. No ventriculomegaly. BONES/JOINTS: No acute fracture. SOFT TISSUES: Unremarkable. SINUSES: Unremarkable as visualized. No acute sinusitis. MASTOID AIR CELLS: Unremarkable as visualized. No mastoid effusion. IMPRESSION: No acute intracranial findings. Electronically signed by: Pastora Guzman MD 09/26/2018 5:47 AM CDT Due to temporary technical issues with the PACS/Fluency reporting system, reports are being signed by the in house radiologist as a courtesy to ensure prompt reporting. The interpreting radiologist is f ully responsible for the content of the report.
== END 2018-09-26 06:58 | disposition home or self-care (01) ==
LOC: ER 04:26
DX: G40.509 Epileptic seizures related to external causes, not intractable, without status epilepticus (principal); S06.0X0A Concussion without loss of consciousness, initial encounter; F90.9 Attention-deficit hyperactivity disorder, unspecified type; K21.9 Gastro-esophageal reflux disease without esophagitis; W18.30XA Fall on same level, unspecified, initial encounter; Y93.9 Activity, unspecified; Y92.9 Unspecified place or not applicable
CPT/HCPCS: 36415; 70450; 80048; 80076; 80307; 81003; 81025; 82550; 82553; 83690; 83735; 84484; 85025; 85610; 85730; 93005; 96361; 96374; 99284; J7030

== ENCOUNTER 2018-09-28 11:42 | Emergency (ER) | payer BC ==
--- OUTSIDE RECORDS SUMMARY | 2018-09-28 11:49 | XMS REPORT ---
[...] End Status Dosage System Date Date Xanax [facility] 99938881406 0.5 MG Orally Active 1 tablet once a day prn anxiety Singulair [facility] 05280469710 10 MG Orally Active 1 tablet Once a day in the evening Loestrin [facility] 24148615351 1.5-30 MG-MCG Active 1 tablet .5 (21) Orally Once a day Vyvanse [facility] 97917710087 50 MG Orally July 23, Active 1 capsule Once a day 2018 in the morning Flonase [facility] 24800459918 50 MCG/ACT Active 1 spray in Nasally Once a each day nostril Effexor XR [facility] 05824333344 37.5 MG Orally Active 1 capsule Once a day with food Nexium [facility] 29199177803 20 MG Orally Active 1 capsule Once a day Biotin [facility] 93422085398 5000 MCG Orally Active 1 tablet Once a day ProAir [facility] 32034612974 108 (90 Base) Active 2 puffs as RespiClick MCG/ACT needed Inhalation every 6 hrs Diclofenac [facility] 08953882566 75 MG Orally June 22, Active 1 tablet Sodium Twice a day prn 2018 with food pain or milk Results No Known Results Summary Purpose eClinicalWorks Submission
--- OUTSIDE RECORDS SUMMARY | 2018-09-28 11:49 | XMS REPORT ---
[...] End Status Dosage System Date Date Xanax [facility] 87907252605 0.5 MG Orally May 04, Active 1 tablet once a day prn 2019 anxiety Flonase [facility] 57625229189 50 MCG/ACT Active 1 spray in Nasally Once a each day nostril Nexium [facility] 83420401298 20 MG Orally Active 1 capsule Once a day Singulair [place] 15902404610 10 MG Orally Active 1 tablet Once a day in the evening Biotin [facility] 61021183731 5000 MCG Orally Active 1 tablet Once a day Effexor XR [facility] 68911886767 37.5 MG Orally Active 1 capsule Once a day with food Vyvanse [facility] 27522604578 50 MG Orally Active 1 capsule Once a day in the morning ProAir [facility] 85607617872 108 (90 Base) Active 2 puffs as RespiClick MCG/ACT needed Inhalation every 6 hrs Loestrin [facility] 05875948100 1.5-30 MG-MCG Active 1 tablet 1.5/30 (21) Orally Once a day Results No Known Results Summary Purpose eClinicalWorks Submission
--- OUTSIDE RECORDS SUMMARY | 2018-09-28 11:49 | XMS REPORT ---
[...] Status Dosage System Date Date Nexium [facility] 62270493042 20 MG Orally Active 1 capsule Once a day Singulair [facility] 32723298856 10 MG Orally Active 1 tablet Once a day in the evening Vyvanse [facility] 54756975812 50 MG Orally Active 1 capsule Once a day in the morning Diclofenac ND 21213713839 75 MG Orally June 22, Active 1 tablet Sodium Twice a day prn 2019 with food pain or milk Loestrin [facility] 01909901409 1.5-30 MG-MCG Active 1 tablet .5 () Orally Once a day Biotin [facility] 44841546761 5000 MCG Orally Active 1 tablet Once a day Effexor XR [facility] 40252556308 37.5 MG Orally Active 1 capsule Once a day with food Xanax [facility] 84538411213 0.5 MG Orally Active 1 tablet once a day prn anxiety Flonase [facility] 78385995863 50 MCG/ACT Active 1 spray in Nasally Once a each day nostril ProAir [facility] 89589361401 108 (90 Base) Active 2 puffs as RespiClick MCG/ACT needed Inhalation every 6 hrs Results No Known Results Summary Purpose eClinicalWorks Submission
--- OUTSIDE RECORDS SUMMARY | 2018-09-28 11:49 | XMS REPORT ---
[...] End Status Dosage System Date Date Nexium [facility] 57617029213 20 MG Orally Active 1 capsule Once a day Effexor XR [facility] 34335324536 37.5 MG Orally Active 1 capsule Once a day with food Biotin [facility] 26885921303 5000 MCG Orally Active 1 tablet Once a day Loestrin [facility] 54965942661 1.5-30 MG-MCG Active 1 tablet 1.5/30 (21) Orally Once a day Singulair [facility] 15085470998 10 MG Orally Active 1 tablet Once a day in the evening Vyvanse [facility] 91916165836 50 MG Orally Active 1 capsule Once a day in the morning ProAir [facility] 37625587103 108 (90 Base) Active 2 puffs as RespiClick MCG/ACT needed Inhalation every 6 hrs Flonase [facility] 78430558647 50 MCG/ACT Active 1 spray in Nasally Once a each day nostril Results No Known Results Summary Purpose eClinicalWorks Submission
--- OUTSIDE RECORDS SUMMARY | 2018-09-28 11:50 | XMS REPORT ---
[...] End Status Dosage System Date Date Loestrin [facility] 57550590574 1.5-30 MG-MCG Active 1 tablet .530 (21) Orally Once a day Flonase [facility] 79500190294 50 MCG/ACT Active 1 spray in Nasally Once a each day nostril Xanax [facility] 44692781309 0.5 MG Orally Active 1 tablet once a day prn anxiety Vyvanse [facility] 23193028210 50 MG Orally July 23, Active 1 capsule Once a day 2019 in the morning Nexium [facility] 02865255382 20 MG Orally Active 1 capsule Once a day Singulair [facility] 04953438019 10 MG Orally Active 1 tablet Once a day in the evening Biotin [facility] 88445768939 5000 MCG Orally Active 1 tablet Once a day Diclofenac [facility] 06608964116 75 MG Orally June 22, Active 1 tablet Sodium Twice a day prn 2018 with food pain or milk ProAir [facility] 87168959372 108 (90 Base) Active 2 puffs as RespiClick MCG/ACT needed Inhalation every 6 hrs Results No Known Results Summary Purpose eClinicalWorks Submission
--- NOTE | 2018-09-28 12:38 | RAD REPORT ---
EXAM DESCRIPTION: CT - Orbits Wo Con W/ Mpr - 09/28/2018 12:16 pm CLINICAL HISTORY: Blurred vision, left eye trauma COMPARISON: CT head September TECHNIQUE: Axial 2 millimeter thick noncontrast images of the orbits and surrounding facial bones ob tained. Sagittal and coronal reformatted images were generated and reviewed. The CT scan was performed using dose optimization techniques as appropriate to a performed exam incl uding one or more of the following: Automated exposure control, adjustment of the mA and/or kV accord ing to patient size (this includes techniques or standardized protocols for targeted exams where dose is matched to indication/reason for exam) and use of iterative reconstruction technique. FINDINGS: Mastoid air cells are clear. No skullbase fracture identified. No air-fluid level in the p aranasal sinuses. Patchy mucosal thickening seen in the left-side frontal sinus. Ethmoid air cells an d sphenoid sinus are clear. Large areas of mucosal thickening or retention cyst formation fills the m ajority of each maxillary sinus. No evidence for an acute or active sinus process. There is evidence for nondisplaced right-sided nasal bone fracture. Correlation is needed with any hi story of nasal bone trauma. No other evidence for facial bone fracture. There is significant left dev iation of the nasal septum likely predating any current event. No globe abnormality identified. Soft tissues overlying the left or but are fractionally more promine nt than the right. No air or foreign body seen. The optic nerve, extraocular muscles and orbital fat have a normal appearance on the left and there is no asymmetry right versus left. No postseptal injur y evident. IMPRESSION: No left globe or orbital content abnormality identifiable. Soft tissues overlying the left orbit are fractionally more prominent than the right but no air or fo reign body seen. Questionable nondisplaced nasal bone fracture. Correlation is needed with any nasal bone trauma.
[2018-09-28] MEDS ORDERED: TETRACAINE HCL 0.5% 4ML OPTH ONE (13:35)
[2018-09-28] MEDS ORDERED: ACETAMINOPHEN 500 MG TAB ONE (13:57)
--- NOTE | 2018-09-28 14:10 | ER ---
Nurse's Notes 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 Care prior to arrival: None. Mechanism of Injury: unknown. Trauma event details: Injury occurred in the [facility], Injury occurred: in a public building. Injury occurred: September 25, 2018. 11:56 Acuity: LEONEL 3 aj 11:56 Method Of Arrival: Ambulatory aj 12:00 Transition of care: patient was not received from another setting of care. Onset of ae4 symptoms was September 25, 2018 at 08:00. Risk Assessment: Do you want to hurt yourself or someone else? Patient reports no desire to harm self or others. Initial Sepsis Screen: Does the patient meet any 2 criteria? No. Patient's initial sepsis screen is negative. Does the patient have a suspected source of infection? No. Patient's initial sepsis screen is negative. 17:28 Onset of symptoms was September 25, 2018 at 08:00. ae4 Trauma Activation: Not Applicable Physician: ED Physician; Name: ; Notified At: ; Arrived At: Physician: General Surgeon; Name: ; Notified At: ; Arrived At: Physician: Radiology; Name: ; Notified At: ; Arrived At: Physician: Respiratory; Name: ; Notified At: ; Arrived At: Physician: Lab; Name: ; Notified At: ; Arrived At: Historical: - Allergies: 17:26 Cephalexin; ae4 17:26 Gadavist; ae4 17:26 Latex, Natural Rubber; ae4 17:26 Zofran; ae4 - Home Meds: 17:26 Nexium Oral [Active]; Vyvanse 40 mg Oral cap 1 cap once daily [Active]; ae4 - PMHx: 17:26 ADD/ADHD; Endometrosis; GERD; Leukemia; ae4 - PSHx: 17:26 None; ae4 - Immunization history: Last tetanus immunization: - up to date. - Social history:: Smoking status: Patient/guardian denies using tobacco. - Ebola Screening: : Patient negative for fever greater than or equal to 101.5 degrees Fahrenheit, and additional compatible Ebola Virus Disease symptoms Patient denies exposure to infectious person Patient denies travel to an Ebola-affected area in the 21 days before illness onset No symptoms or risks identified at this time. Screenin:00 Abuse screen: Denies threats or abuse. Nutritional screening: No deficits noted. ae4 Tuberculosis screening: No symptoms or risk factors identified. Fall Risk None identified. Assessment: 11:56 General: Appears in no apparent distress. comfortable, Behavior is calm, cooperative, aj appropriate for age. Pain: Complains of pain in face and scalp. Neuro: Level of Consciousness is awake, alert, obeys commands, Oriented to person, place, time, situation, Appropriate for age Reports blurred vision in iris of left eye headache. Respiratory: Airway is patent Trachea midline Respiratory effort is even, unlabored, Respiratory pattern is regular, symmetrical. Derm: Skin is intact, is healthy with good turgor, Skin is pink, warm \T\ dry. normal. 14:32 Reassessment: Patient appears in no apparent distress at this time. Patient is alert, ca1 oriented x 3, equal unlabored respirations, skin warm/dry/pink. Vital Signs: 11:56 BP 149 / 82; Pulse 84; Resp 19; Temp 97.9; Pulse Ox 100% on R/A; Weight 86.18 kg; aj Height 5 ft. 6 in. (167.64 cm); 12:37 BP 123 / 85; Pulse 82; Resp 16; Temp 98.5; Pulse Ox 98% ; lt1 13:35 BP 120 / 79; Pulse 72; Resp 18 S; Pulse Ox 99% on R/A; ca1 14:32 BP 145 / 82; Pulse 69; Resp 18 S; Pulse Ox 98% on R/A; ca1 11:56 Body Mass Index 30.67 (86.18 kg, 167.64 cm) aj [place] Coma Score: 11:56 Eye Response: spontaneous(4). Verbal Response: oriented(5). Motor Response: obeys aj commands(6). Total: 15. Trauma Score (Adult): 11:56 Eye Response: spontaneous(1); Verbal Response: oriented(1); Motor Response: obeys aj commands(2); Systolic BP: > 89 mm Hg(4); Respiratory Rate: 10 to 29 per min(4); [place] Score: 15; Trauma Score: 12 ED Course: 11:47 Patient arrived in ED. tw3 11:57 Triage completed. aj 11:59 Arm band placed on right wrist. Patient placed in waiting room. aj 12:00 Call light in reach. Side rails up X 1. Adult w/ patient. Pulse ox on. NIBP on. ae4 12:33 Jag Yoo, RN is Primary Nurse. ae4 12:39 Mich Carrion PA is PHCP. [facility] 12:39 Vincent Beard MD is Attending Physician. [facility] 13:10 Orbits Wo Con W/ Mpr In Process Unspecified. EDMS 13:34 Rustam Aguirre MD is Attending Physician. jmm 14:09 Champ Chahal MD is Referral Physician. [facility] 14:34 No provider procedures requiring assistance completed. Patient did not have IV access ca1 during this emergency room visit. Administered Medications: 13:30 Drug: Tetracaine Solution (0.5 %) 1 application {Note: Administered by Murali Epps ae4 PA.} Route: Topical; Site: affected area; 13:44 Drug: Tylenol 1000 mg Route: PO; ae4 Outcome: 14:09 Discharge ordered by . [facility] 14:34 Discharged to home ambulatory, with family. ca1 14:34 Condition: stable 14:34 Discharge instructions given to patient, Instructed on discharge instructions, follow up and referral plans. Demonstrated understanding of instructions, follow-up care. 14:35 Patient left the ED. ca1 Signatures: Dispatcher [employer] EDMS Maddy Stock, RN Mich Pierre PA PA jmm Wade, Tia tw3 Poornima Zamora RN RN ca1 Childress, Frances lt1 Jag Yoo, EBONIE RN ae4
--- NOTE | 2018-09-28 14:10 | EDPHYS ---
Physician Documentation [facility] Name: Snow Argueta Age: 32 yrs Sex: Female : 1985 Arrival Date: 09/28/2018 Time: 11:47 Bed 26 Private MD: ED Physician Rustam Aguirre HPI: 09/28 12:42 This 32 yrs old Female presents to ER via Ambulatory with complaints of [facility] Blurred Vision. 12:42 The patient is experiencing pain. Onset: The symptoms/episode began/occurred this [facility] morning. Duration: the symptoms are continuous. Aggravated by nothing. Alleviated by nothing. This is a 32 year old female with a history of seizures that presents to the ED with complaints of of blurred vision to her left eye beginning this morning. patient was evaluated by crna whom had concerns of intracranial bleeding. Patient was evaluated this past Friday with negative ct brain after the patient had a presumed seizure. patient is currently taking dilantin. . Historical: - Allergies: 17:26 Cephalexin; ae4 17:26 Gadavist; ae4 17:26 Latex, Natural Rubber; ae4 17:26 Zofran; ae4 - Home Meds: 17:26 Nexium Oral [Active]; Vyvanse 40 mg Oral cap 1 cap once daily [Active]; ae4 - PMHx: 17:26 ADD/ADHD; Endometrosis; GERD; Leukemia; ae4 - PSHx: 17:26 None; ae4 - Immunization history: Last tetanus immunization: - up to date. - Social history:: Smoking status: Patient/guardian denies using tobacco. - Ebola Screening: : Patient negative for fever greater than or equal to 101.5 degrees Fahrenheit, and additional compatible Ebola Virus Disease symptoms Patient denies exposure to infectious person Patient denies travel to an Ebola-affected area in the 21 days before illness onset No symptoms or risks identified at this time. ROS: 12:42 Constitutional: Negative for fever, chills, and weight loss. jmm 12:42 Cardiovascular: Negative for chest pain, palpitations, and edema, Respiratory: Negative for shortness of breath, cough, wheezing, and pleuritic chest pain, Abdomen/GI: Negative for abdominal pain, nausea, vomiting, diarrhea, and constipation. 12:42 Eyes: Positive for blurry vision. 12:42 Neuro: Positive for headache. 12:42 All other systems are negative. Exam: 12:42 Constitutional: This is a well developed, well nourished patient who is awake, alert, jmm and in no acute distress. Head/Face: atraumatic. 12:42 ENT: Moist Mucus Membranes Neck: Trachea midline, Supple Chest/axilla: Normal chest wall appearance and motion. Cardiovascular: Regular rate and rhythm. No edema appreciated Respiratory: Normal respirations, no respiratory distress appreciated Abdomen/GI: Non distended, soft Back: Normal ROM Skin: General appearance color normal MS/ Extremity: Moves all extremities, no obvious deformities appreciated, no edema noted to the lower extremities 12:42 Eyes: Extraocular movements: intact throughout, Conjunctiva: normal, Visual good: are intact, Intraocular pressure: right eye = 19mmHg, left eye = 21mmHg. 12:42 Neuro: Orientation: is normal, Mentation: is normal, Memory: is normal, Motor: is normal, Gait: is steady. 12:42 Psych: Behavior/mood is pleasant, cooperative. Vital Signs: 11:56 BP 149 / 82; Pulse 84; Resp 19; Temp 97.9; Pulse Ox 100% on R/A; Weight 86.18 kg; aj Height 5 ft. 6 in. (167.64 cm); 12:37 BP 123 / 85; Pulse 82; Resp 16; Temp 98.5; Pulse Ox 98% ; lt1 13:35 BP 120 / 79; Pulse 72; Resp 18 S; Pulse Ox 99% on R/A; ca1 14:32 BP 145 / 82; Pulse 69; Resp 18 S; Pulse Ox 98% on R/A; ca1 11:56 Body Mass Index 30.67 (86.18 kg, 167.64 cm) Kameron Coma Score: 11:56 Eye Response: spontaneous(4). Verbal Response: oriented(5). Motor Response: obeys aj commands(6). Total: 15. Trauma Score (Adult): 11:56 Eye Response: spontaneous(1); Verbal Response: oriented(1); Motor Response: obeys aj commands(2); Systolic BP: > 89 mm Hg(4); Respiratory Rate: 10 to 29 per min(4); Kameron Score: 15; Trauma Score: 12 MDM: 12:42 Patient medically screened. [facility] 14:08 Data reviewed: vital signs, nurses notes. Counseling: I had a detailed discussion with [facility] the patient and/or guardian regarding: the historical points, exam findings, and any diagnostic results supporting the discharge/admit diagnosis, radiology results, the need for outpatient follow up, to return to the emergency department if symptoms worsen or persist or if there are any questions or concerns that arise at home. 14:08 ED course: CT orbit negative for an acute process. Patient is advised to follow up with [facility] ophthalmology for further evaluation. patient understood and agrees with the plan of care. . 09/28 12:50 Order name: CT Head Brain wo Cont [facility] 09/28 13:09 Order name: Orbits Wo Con W/ Mpr; Complete Time: 13:21 EDMS Administered Medications: 13:30 Drug: Tetracaine Solution (0.5 %) 1 application {Note: Administered by Murali Epps ae4 PA.} Route: Topical; Site: affected area; 13:44 Drug: Tylenol 1000 mg Route: PO; ae4 Disposition: 09/28/18 14:09 Discharged to Home. Impression: Fracture of nasal bones. - Condition is Stable. - Discharge Instructions: Nasal Fracture. - Medication Reconciliation Form, Thank You Letter, Antibiotic Education, Prescription Opioid Use form. - Follow up: Champ Chahal MD; When: 2 - 3 days; Reason: Recheck today's complaints, Continuance of care, Re-evaluation by your physician. Addendum: 10/05/2018 12:36 Co-signature as Attending Physician, Rustam Aguirre MD I agree with the assessment and c olson plan of care. Signatures: Dispatcher [employer] [facility] Maddy Stock RN RN aj Anderson, Corey, MD MD cha Mickail, Joel, PA PA [facility] Poornima Zamora RN RN ca1 Elliott, Andrea, RN RN ae4 Corrections: (The following items were deleted from the chart) 09/28 13:09 13:09 Orbit Face Wo Cont ordered. [facility] 14:35 14:09 09/28/2018 14:09 Discharged to Home. Impression: Fracture of nasal bones. ca1 Condition is Stable. Forms are Medication Reconciliation Form, Thank You Letter, Antibiotic Education, Prescription Opioid Use. Follow up: Champ Chahal; When: 2 - 3 days; Reason: Recheck today's complaints, Continuance of care, Re-evaluation by your physician. romy
[2018-09-28 20:12] VITALS: TEMP 98.5
[2018-09-28 20:17] VITALS: BP 145/82; O2SAT 98
== END 2018-09-28 14:35 | disposition home or self-care (01) ==
LOC: ER 11:42
DX: S02.2XXA Fracture of nasal bones, initial encounter for closed fracture (principal); K21.9 Gastro-esophageal reflux disease without esophagitis; F90.9 Attention-deficit hyperactivity disorder, unspecified type; X58.XXXA Exposure to other specified factors, initial encounter; Z88.1 Allergy status to other antibiotic agents; Z91.040 Latex allergy status
CPT/HCPCS: 70480; 76377; 99284

== ENCOUNTER 2019-02-04 08:29 | Emergency (ER) | payer OTHER, SELFPAY ==
[2019-02-04] MEDS ORDERED: ALBUTEROL 2.5 MG/3 ML NEB SOL ONE (08:55)
[2019-02-04] MEDS ORDERED: IPRATROPIUM BROM 0.5MG/2.5ML ONE (08:55)
--- NOTE | 2019-02-04 09:40 | RAD REPORT ---
EXAM DESCRIPTION: RAD - Chest Pa And Lat (2 Views) - 02/04/2019 9:27 am CLINICAL HISTORY: Cough;Congestion COMPARISON: November 2017 TECHNIQUE: PA and lateral views of the chest were obtained. FINDINGS: The lungs are clear. Heart size is normal and central vasculature is within normal limit s. No pleural effusion or pneumothorax seen. No acute bony finding noted. No aortic abnormality. IMPRESSION: No acute cardiopulmonary process.
--- NOTE | 2019-02-04 09:47 | ER ---
Nurse's Notes [facility] Name: Snow Argueta Age: 33 yrs Sex: Female : 1985 Arrival Date: 02/04/2019 Time: 08:32 Bed 13 Private MD: Soco Savage Diagnosis: Acute upper respiratory infection, unspecified Presentation: 02/04 08:39 Presenting complaint: Patient states: Productive cough, SOB, sore throat x approx 1 ph week, seen previously at urgent care and given steroid shot and Z pack w/ no improvement, denies fever, N/V/D. Transition of care: patient was not received from another setting of care. Resp Distress? No respiratory distress is noted at this time. Onset of symptoms was February 04, 2019. Risk Assessment: Do you want to hurt yourself or someone else? Patient reports no desire to harm self or others. Initial Sepsis Screen: Does the patient meet any 2 criteria? No. Patient's initial sepsis screen is negative. Does the patient have a suspected source of infection? No. Patient's initial sepsis screen is negative. Care prior to arrival: None. 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 - Social history:: Smoking status: Patient/guardian denies using tobacco. - Ebola Screening: : No symptoms or risks identified at this time. Screenin:44 Abuse screen: Denies threats or abuse. Denies injuries from another. Nutritional ph screening: No deficits noted. Tuberculosis screening: No symptoms or risk factors identified. Fall Risk None identified. Assessment: 09:13 General: Appears in no apparent distress. uncomfortable, well groomed, Behavior is ph calm, cooperative, appropriate for age. Pain: Complains of pain in back and chest. Neuro: Level of Consciousness is awake, alert, obeys commands, Oriented to person, place, time, situation. Cardiovascular: Capillary refill < 3 seconds in bilateral fingers Patient's skin is warm and dry. Respiratory: Reports shortness of breath at rest cough that is productive, pain with cough pain with movement Airway is patent Respiratory effort is even, unlabored, Respiratory pattern is regular, symmetrical, Breath sounds with wheezes in mediastinum. GI: No signs and/or symptoms were reported involving the gastrointestinal system. EENT: Reports pain when swallowing. Derm: Skin is intact, is healthy with good turgor, Skin is pink, warm \T\ dry. Musculoskeletal: Circulation, motion, and sensation intact. Range of motion: intact in all extremities. 09:53 Reassessment: Patient appears in no apparent distress at this time. Patient and/or ph family updated on plan of care and expected duration. Pain level reassessed. Patient is alert, oriented x 3, equal unlabored respirations, skin warm/dry/pink. Pt d/c home. Vital Signs: 08:41 BP 122 / 85; Pulse 80; Resp 18; Temp 97.4; Pulse Ox 99% on R/A; Weight 83.91 kg; Height ph 5 ft. 6 in. (167.64 cm); 09:54 BP 118 / 78; Pulse 76; Resp 18; Temp 97.9; Pulse Ox 99% on R/A; ph 08:41 Body Mass Index 29.86 (83.91 kg, 167.64 cm) ph ED Course: 08:32 Patient arrived in ED. mr 08:32 Soco Savage MD is Private Physician. mr 08:34 [facility]inkle [facility]C [facility] kb 08:34 Jairo Perdomo MD is Attending Physician. kb 08:38 Sierra Hernandez, EBONIE is Primary Nurse. ph 08:41 Triage completed. ph 08:42 Arm band placed on Patient placed in an exam room, on a stretcher. ph 08:44 Patient has correct armband on for positive identification. Bed in low position. Call ph light in reach. Side rails up X 1. Pulse ox on. NIBP on. Door closed. Noise minimized. Warm blanket given. 09:22 X-ray completed. Patient tolerated procedure well. jb2 09:25 Chest Pa And Lat (2 Views) XRAY In Process Unspecified. EDMS 09:53 No provider procedures requiring assistance completed. Patient did not have IV access ph during this emergency room visit. Administered Medications: 09:05 Drug: Albuterol 2.5 mg Route: Inhalation; ph 09:17 Follow up: Response: No adverse reaction ph 09:05 Drug: AtroVENT Aerosol 0.5 mg Route: Inhalation; ph 09:17 Follow up: Response: No adverse reaction ph Outcome: 09:46 Discharge ordered by . alejandra 09:54 Discharged to home ambulatory. ph 09:54 Condition: good 09:54 Discharge instructions given to patient, Instructed on discharge instructions, follow up and referral plans. medication usage, Demonstrated understanding of instructions, follow-up care, medications, Prescriptions given X 1. 09:55 Patient left the ED. ph Signatures: Dispatcher [employer] EDMS Sudha Hinkle, LIVIER GUYP-Love Luz Jesse jb2 Sierra Hernandez, RN RN ph
--- NOTE | 2019-02-04 09:48 | EDPHYS ---
Physician Documentation [facility] Name: Snow Argueta Age: 33 yrs Sex: Female : 1985 Arrival Date: 02/04/2019 Time: 08:32 Bed 13 Private MD: Soco Savage ED Physician Jairo Perdomo HPI: 02/04 09:44 This 33 yrs old Female presents to ER via Ambulatory with complaints of Cough, kb Congestion, Breathing Difficulty. 09:44 The patient or guardian reports cough, that is intermittent, described as mild, with no kb sputum, difficulty breathing, flu symptoms. Onset: The symptoms/episode began/occurred 1 week(s) ago. Severity of symptoms: At their worst the symptoms were moderate, in the emergency department the symptoms are unchanged. Modifying factors: The symptoms are alleviated by nothing, the symptoms are aggravated by nothing. Associated signs and symptoms: Pertinent positives: rhinorrhea, sore throat. The patient has not experienced similar symptoms in the past. The patient has been recently seen by a physician:. Pt reports cough, sore throat, congestion, lost voice and shortness of breath that started a week ago. Reports she was seen at an , tested negative for flu and strep so they gave her steroids and a z-pack. Reports she completed both medications without relief. . 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 - Social history:: Smoking status: Patient/guardian denies using tobacco. - Ebola Screening: : No symptoms or risks identified at this time. ROS: 09:43 Constitutional: Negative for fever, chills, and weight loss, Neck: Negative for injury, kb pain, and swelling, Cardiovascular: Negative for chest pain, palpitations, and edema, Abdomen/GI: Negative for abdominal pain, nausea, vomiting, diarrhea, and constipation, Back: Negative for injury and pain, : Negative for injury, bleeding, discharge, and swelling, MS/Extremity: Negative for injury and deformity, Skin: Negative for injury, rash, and discoloration, Neuro: Negative for headache, weakness, numbness, tingling, and seizure. 09:43 ENT: Positive for hoarseness, rhinorrhea, sinus congestion. 09:43 Respiratory: Positive for cough, shortness of breath. Exam: 09:43 Constitutional: This is a well developed, well nourished patient who is awake, alert, kb and in no acute distress. Head/Face: Normocephalic, atraumatic. ENT: Nares patent. No nasal discharge, no septal abnormalities noted. Tympanic membranes are normal and external auditory canals are clear. Oropharynx with no redness, swelling, or masses, exudates, or evidence of obstruction, uvula midline. Mucous membranes moist. Neck: Trachea midline, no thyromegaly or masses palpated, and no cervical lymphadenopathy. Supple, full range of motion without nuchal rigidity, or vertebral point tenderness. No Meningismus. Chest/axilla: Normal chest wall appearance and motion. Nontender with no deformity. No lesions are appreciated. Cardiovascular: Regular rate and rhythm with a normal S1 and S2. No gallops, murmurs, or rubs. Normal PMI, no JVD. No pulse deficits. Respiratory: Lungs have equal breath sounds bilaterally, clear to auscultation and percussion. No rales, rhonchi or wheezes noted. No increased work of breathing, no retractions or nasal flaring. Abdomen/GI: Soft, non-tender, with normal bowel sounds. No distension or tympany. No guarding or rebound. No evidence of tenderness throughout. Skin: Warm, dry with normal turgor. Normal color with no rashes, no lesions, and no evidence of cellulitis. MS/ Extremity: Pulses equal, no cyanosis. Neurovascular intact. Full, normal range of motion. Neuro: Awake and alert, GCS 15, oriented to person, place, time, and situation. Cranial nerves II-XII grossly intact. Motor strength 5/5 in all extremities. Sensory grossly intact. Cerebellar exam normal. Normal gait. 09:43 ENT: Voice: is hoarse. Vital Signs: 08:41 BP 122 / 85; Pulse 80; Resp 18; Temp 97.4; Pulse Ox 99% on R/A; Weight 83.91 kg; Height ph 5 ft. 6 in. (167.64 cm); 09:54 BP 118 / 78; Pulse 76; Resp 18; Temp 97.9; Pulse Ox 99% on R/A; ph 08:41 Body Mass Index 29.86 (83.91 kg, 167.64 cm) ph MDM: 08:35 Patient medically screened. kb 09:43 Data reviewed: vital signs, nurses notes. Data interpreted: Pulse oximetry: on room air kb is 99 %. Interpretation: normal. Counseling: I had a detailed discussion with the patient and/or guardian regarding: the historical points, exam findings, and any diagnostic results supporting the discharge/admit diagnosis, lab results, radiology results, the need for outpatient follow up, a family practitioner, to return to the emergency department if symptoms worsen or persist or if there are any questions or concerns that arise at home. 02/04 08:50 Order name: Flu; Complete Time: 09:42 kb 02/04 08:50 Order name: Strep; Complete Time: 09:42 kb 02/04 08:50 Order name: [place] Screen Profile; Complete Time: 09:42 kb 02/04 08:50 Order name: Chest Pa And Lat (2 Views) XRAY; Complete Time: 09:42 kb 02/04 09:31 Order name: Throat Culture EDMS Administered Medications: 09:05 Drug: Albuterol 2.5 mg Route: Inhalation; ph 09:17 Follow up: Response: No adverse reaction ph 09:05 Drug: AtroVENT Aerosol 0.5 mg Route: Inhalation; ph 09:17 Follow up: Response: No adverse reaction ph Disposition: 02/04/19 09:46 Discharged to Home. Impression: Acute upper respiratory infection, unspecified. - Condition is Stable. - Discharge Instructions: Upper Respiratory Infection, Adult, [id number], Viral Respiratory Infection, [id number]. - Prescriptions for Albuterol Sulfate 90 mcg/actuation - inhale 1-2 puff by INHALATION route every 4-6 hours; 1 Inhaler. - Medication Reconciliation Form, Thank You Letter, Antibiotic Education, Prescription Opioid Use, Work release form form. - Follow up: Private Physician; When: 2 - 3 days; Reason: Recheck today's complaints, Continuance of care, Re-evaluation by your physician. Follow up: Emergency Department; When: As needed; Reason: Worsening of condition. Addendum: 02/05/2019 15:30 Co-signature as Attending Physician, Jairo Perdomo MD. g s Signatures: Dispatcher [employer] EDMS Sudha Hinkle, TIFFANIE-C TIFFANIE-Sierra Hay RN RN Jairo Perdomo MD MD Corrections: (The following items were deleted from the chart) 02/04 09:55 09:46 02/04/2019 09:46 Discharged to Home. Impression: Acute upper respiratory ph infection, unspecified. Condition is Stable. Forms are Medication Reconciliation Form, Thank You Letter, Antibiotic Education, Prescription Opioid Use. Follow up: Private Physician; When: 2 - 3 days; Reason: Recheck today's complaints, Continuance of care, Re-evaluation by your physician. Follow up: Emergency Department; When: As needed; Reason: Worsening of condition. kb
[2019-02-04 10:15] VITALS: O2SAT 99
[2019-02-04 10:16] VITALS: BP 118/78; TEMP 97.9
== END 2019-02-04 09:55 | disposition home or self-care (01) ==
LOC: ER 08:29
DX: J06.9 Acute upper respiratory infection, unspecified (principal); F90.9 Attention-deficit hyperactivity disorder, unspecified type; Z85.6 Personal history of leukemia; Z88.1 Allergy status to other antibiotic agents; Z88.8 Allergy status to other drugs, medicaments and biological substances; Z91.040 Latex allergy status
CPT/HCPCS: 36415; 71046; 86308; 87070; 87081; 87804; 99284

== ENCOUNTER 2019-02-05 09:19 | Emergency (ER) | payer SELFPAY ==
--- NOTE | 2019-02-05 10:30 | ER ---
Nurse's Notes [facility] Name: Snow Argueta Age: 33 yrs Sex: Female : 1985 Arrival Date: 02/05/2019 Time: 09:21 Bed 7 Private MD: Soco Savage Diagnosis: Acute upper respiratory infection, unspecified Presentation: 02/05 09:30 Presenting complaint: Patient states: Generalized headache, cough, congestion, ss dizziness, R ear pain s 1 week and now sensation that R side of face is swollen. Patient reports that she was given a steroid shot and a Z-pack that she finished Friday, but symptoms did not improve. Patient was seen in ER yesterday and tested for flu, strep and mono which were all negative. Patient is concerned because her symptoms have worsened since yesterday. Transition of care: patient was not received from another setting of care. Onset of symptoms was January 29, 2019. Risk Assessment: Do you want to hurt yourself or someone else? Patient reports no desire to harm self or others. Initial Sepsis Screen: Does the patient meet any 2 criteria? No. Patient's initial sepsis screen is negative. Does the patient have a suspected source of infection? No. Patient's initial sepsis screen is negative. Care prior to arrival: None. 09:30 Acuity: LEONEL 3 ss 09:30 Method Of Arrival: Ambulatory ss Historical: - Allergies: 09:33 Cephalexin; ss 09:33 Gadavist; ss 09:33 Latex, Natural Rubber; ss 09:33 Zofran; ss - PMHx: 09:33 ADD/ADHD; Endometrosis; GERD; Leukemia; epilepsy; ss - PSHx: 09:33 Appendectomy; Cholecystectomy; Tubal ligation; D \\T\\ C; ss - Immunization history:: Adult Immunizations up to date. - Social history:: Smoking status: Patient/guardian denies using tobacco. - Ebola Screening: : Patient denies exposure to infectious person Patient denies travel to an Ebola-affected area in the 21 days before illness onset. Screenin:03 Abuse screen: Denies threats or abuse. Denies injuries from another. Nutritional hb screening: No deficits noted. Tuberculosis screening: No symptoms or risk factors identified. Fall Risk None identified. Assessment: 10:04 General: Appears in no apparent distress. Behavior is calm, cooperative. Pain: Pain hb currently is 10 out of 10 on a pain scale. Neuro: Level of Consciousness is awake, alert, obeys commands, Oriented to person, place, time, situation. Cardiovascular: Capillary refill < 3 seconds Patient's skin is warm and dry. Respiratory: Airway is patent Respiratory effort is even, unlabored, Respiratory pattern is regular, symmetrical, Breath sounds are clear bilaterally. GI: No signs and/or symptoms were reported involving the gastrointestinal system. : No signs and/or symptoms were reported regarding the genitourinary system. EENT: Reports sinus congestion, headache. Derm: Skin is pink, warm \\T\\ dry. Musculoskeletal: No signs and/or symptoms reported regarding the musculoskeletal system. Vital Signs: 09:33 BP 133 / 91; Pulse 96; Resp 16; Pulse Ox 100% on R/A; Weight 88.45 kg; Height 5 ft. 6 ss in. (167.64 cm); Pain 10/10; 10:30 BP 126 / 82; Pulse 88; Resp 15; Pulse Ox 100% on R/A; hb 09:33 Body Mass Index 31.47 (88.45 kg, 167.64 cm) ED Course: 09:21 Patient arrived in ED. as 09:22 Soco Savage MD is Private Physician. as 09:25 Jairo Perdomo MD is Attending Physician. 09:32 Triage completed. ss 09:33 Arm band placed on right wrist. ss 10:03 Patient has correct armband on for positive identification. Bed in low position. Call hb light in reach. Side rails up X 1. 10:06 Sierra Hernandez RN is Primary Nurse. ph 10:42 Cyndi Ritchie RN is Primary Nurse. hb 10:42 No provider procedures requiring assistance completed. Patient did not have IV access hb during this emergency room visit. Administered Medications: No medications were administered Outcome: 10:29 Discharge ordered by MD. gs 10:42 Discharged to home ambulatory, with family. hb 10:42 Condition: stable 10:42 Discharge instructions given to patient, Instructed on discharge instructions, follow up and referral plans. medication usage, Demonstrated understanding of instructions, follow-up care, medications. 10:43 Patient left the ED. hb Signatures: Dee Dee Dodson Shelby, RN RN Sierra Hernandez RN Cyndi Santos ph, RN RN Jairo Montgomery MD MD gs Corrections: (The following items were deleted from the chart) 09:34 09:30 Presenting complaint: Patient states: Generalizes headache, cough, congestion, ss dizziness, R ear pain s 1 week and now sensation that R side of face is swollen. Patient reports that she was put on a Z pack and given a "steroid shot" that she finished Friday, but symptoms did not improve. Patient was seen in ER yesterday and tested for flu, strep and mono which were all negative. Patient is concerned because her symptoms have worsened since yesterday. ss 09:35 09:30 Presenting complaint: Patient states: Generalized headache, cough, congestion, ss dizziness, R ear pain s 1 week and now sensation that R side of face is swollen. Patient reports that she was put on a Z pack and given a "steroid shot" that she finished Friday, but symptoms did not improve. Patient was seen in ER yesterday and tested for flu, strep and mono which were all negative. Patient is concerned because her symptoms have worsened since yesterday. ss
--- NOTE | 2019-02-05 10:30 | EDPHYS ---
Physician Documentation [facility] Name: Snow Argueat Age: 33 yrs Sex: Female : 1985 Arrival Date: 02/05/2019 Time: 09:21 Bed 7 Private MD: Soco Savage ED Physician Jairo Perdomo HPI: 02/05 10:17 This 33 yrs old Female presents to ER via Ambulatory with complaints of Facial gs Swelling, Headache, Ear Pain, Dizziness. 10:17 The patient or guardian reports cough, described as moderate, flu symptoms, gs arthralgias, low-grade fever, myalgias, no appetite. Onset: The symptoms/episode began/occurred gradually. Onset: The symptoms/episode began/occurred 5 day(s) ago. Severity of symptoms: At their worst the symptoms were moderate, in the emergency department the symptoms are unchanged. Modifying factors: The symptoms are alleviated by nothing, the symptoms are aggravated by coughing. Associated signs and symptoms: Pertinent positives: earache. The patient has not experienced similar symptoms in the past. The patient has been recently seen at the [facility], yesterday. Historical: - Allergies: 09:33 Cephalexin; ss 09:33 Gadavist; ss 09:33 Latex, Natural Rubber; ss 09:33 Zofran; ss - PMHx: 09:33 ADD/ADHD; Endometrosis; GERD; Leukemia; epilepsy; ss - PSHx: 09:33 Appendectomy; Cholecystectomy; Tubal ligation; D \T\ C; ss - Immunization history:: Adult Immunizations up to date. - Social history:: Smoking status: Patient/guardian denies using tobacco. - Ebola Screening: : Patient denies exposure to infectious person Patient denies travel to an Ebola-affected area in the 21 days before illness onset. ROS: 10:17 All other systems are negative. gs Exam: 10:17 Head/Face: Normocephalic, atraumatic. Eyes: Pupils equal round and reactive to light, gs extra-ocular motions intact. Lids and lashes normal. Conjunctiva and sclera are non-icteric and not injected. Cornea within normal limits. Periorbital areas with no swelling, redness, or edema. Chest/axilla: Normal chest wall appearance and motion. Nontender with no deformity. No lesions are appreciated. Cardiovascular: Regular rate and rhythm with a normal S1 and S2. No gallops, murmurs, or rubs. Normal PMI, no JVD. No pulse deficits. Respiratory: Lungs have equal breath sounds bilaterally, clear to auscultation and percussion. No rales, rhonchi or wheezes noted. No increased work of breathing, no retractions or nasal flaring. Abdomen/GI: Soft, non-tender, with normal bowel sounds. No distension or tympany. No guarding or rebound. No evidence of tenderness throughout. Back: No spinal tenderness. No costovertebral tenderness. Full range of motion. Skin: Warm, dry with normal turgor. Normal color with no rashes, no lesions, and no evidence of cellulitis. MS/ Extremity: Pulses equal, no cyanosis. Neurovascular intact. Full, normal range of motion. Neuro: Awake and alert, GCS 15, oriented to person, place, time, and situation. Cranial nerves II-XII grossly intact. Motor strength 5/5 in all extremities. Sensory grossly intact. Cerebellar exam normal. Normal gait. 10:17 Constitutional: The patient appears alert, awake. 10:17 Head/face: Exam is negative for deformity, tenderness. 10:17 ENT: TM's: no acute changes, erythema, is not appreciated. 10:17 Neck: External neck: no acute changes, ROM/movement: is normal, is supple, no meningismus. Vital Signs: 09:33 BP 133 / 91; Pulse 96; Resp 16; Pulse Ox 100% on R/A; Weight 88.45 kg; Height 5 ft. 6 ss in. (167.64 cm); Pain 10/10; 10:30 BP 126 / 82; Pulse 88; Resp 15; Pulse Ox 100% on R/A; hb 09:33 Body Mass Index 31.47 (88.45 kg, 167.64 cm) ss MDM: 09:52 Patient medically screened. gs 10:17 Differential Diagnosis: Upper Respiratory Infection Sinusitis Otitis Media. Data gs reviewed: vital signs, nurses notes, old medical records. Counseling: I had a detailed discussion with the patient and/or guardian regarding: the historical points, exam findings, and any diagnostic results supporting the discharge/admit diagnosis, the need for outpatient follow up. Response to treatment: There is no appreciated change of the patient's symptoms at this time. Administered Medications: No medications were administered Disposition: 02/05/19 10:29 Discharged to Home. Impression: Acute upper respiratory infection, unspecified. - Condition is Stable. - Discharge Instructions: Upper Respiratory Infection, Adult. - Work release form, Medication Reconciliation Form, Thank You Letter, Antibiotic Education, Prescription Opioid Use form. - Follow up: Private Physician; When: 2 - 3 days; Reason: Re-evaluation by your physician. Signatures: Ivonne Cai RN RN Cyndi Ritchie RN RN Jairo Perdomo MD MD Corrections: (The following items were deleted from the chart) 10:43 10:29 02/05/2019 10:29 Discharged to Home. Impression: Acute upper respiratory hb infection, unspecified. Condition is Stable. Forms are Medication Reconciliation Form, Thank You Letter, Antibiotic Education, Prescription Opioid Use. Follow up: Private Physician; When: 2 - 3 days; Reason: Re-evaluation by your physician. gs
[2019-02-05 10:47] VITALS: O2SAT 100
[2019-02-05 10:49] VITALS: BP 126/82
== END 2019-02-05 10:43 | disposition home or self-care (01) ==
LOC: ER 09:19
DX: J06.9 Acute upper respiratory infection, unspecified (principal); Z91.040 Latex allergy status; Z88.1 Allergy status to other antibiotic agents
CPT/HCPCS: 99281

== ENCOUNTER 2019-06-13 12:41 | Emergency (ER) | payer SELFPAY ==
--- OUTSIDE RECORDS SUMMARY | 2019-06-13 12:42 | XMS REPORT ---
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 Problem Elevated blood pressure reading R03.0 Active without diagnosis of hypertension Problem Nonintractable epilepsy without G40.909 Active status epilepticus, unspecified epilepsy type Problem Dizziness R42 Active Problem Benign essential HTN I10 Active Problem Complex partial seizures with G40.201 Active impaired consciousness at onset Problem GERD (gastroesophageal reflux K21.9 Active disease) Problem Right anterior knee pain M25.561 Active Problem Stressful life events affecting Z63.79 Active family and household Problem Intractable epilepsy without status G40.919 Active epilepticus, unspecified epilepsy type Problem History of colonic polyps Z86.010 Active Problem Allergic rhinitis J30.9 Active Problem Hyperlipidemia E78.5 Active Problem Anxiety F41.9 Active Problem Palpitations R00.2 Active Problem Tinnitus H93.19 Active Problem Incontinence R32 Active Problem 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 Active Problem Attention deficit hyperactivity F90.2 Active disorder (ADHD), combined type Medications Medication Code System Code Instructions Start End Date Status Dosage Date Singulair [facility] 95108658114 10 MG Orally Active 1 tablet in Once a day the evening Vyvanse [facility] 50694768641 20 MG Orally Dec 31, Active 1 capsule daily 2019 in the morning and 1 capsule at noon Results No Known Results Summary Purpose eClinicalWorks Submission
--- OUTSIDE RECORDS SUMMARY | 2019-06-13 12:43 | XMS REPORT ---
:1985 Author Organization [employer] Care Team Providers Name Role Phone Gaye Aburto Provider Role Unavailable Allergies, Adverse Reactions, Alerts Substance Reaction Event Type Zofran Info Not Available Drug Allergy Cephalexin Info Not Available Drug Allergy Problems Problem Type Condition Code Onset Dates Condition Status Assessment Cough R05 Active Assessment Mild reactive airways disease, J45.909 Active unspecified whether persistent Assessment Viral illness B34.9 Active Problem GERD (gastroesophageal reflux K21.9 Active disease) Problem Benign essential HTN I10 Active Problem Dizziness R42 Active Problem Anxiety F41.9 Active Problem Palpitations R00.2 Active Problem Allergic rhinitis J30.9 Active Problem Seasonal allergic rhinitis, J30.2 Active unspecified trigger Problem Stressful life events affecting Z63.79 Active family and household Problem Hyperlipidemia E78.5 Active Problem History of colonic polyps Z86.010 Active Problem Nonintractable epilepsy without G40.909 Active status epilepticus, unspecified epilepsy type Problem Intractable epilepsy without status G40.919 Active epilepticus, unspecified epilepsy type Problem Laryngitis J04.0 Active Problem Viral illness B34.9 Active Problem Attention deficit hyperactivity F90.2 Active disorder (ADHD), combined type Problem 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 Active Problem Cough R05 Active Problem Gastritis K29.70 Active Problem Complex partial seizures with G40.201 Active impaired consciousness at onset Problem Elevated blood pressure reading R03.0 Active without diagnosis of hypertension Problem Seizure disorder G40.909 Active Problem Adult general medical exam Z00.00 Active Problem Rectal bleeding K62.5 Active Assessment Laryngitis J04.0 Active Problem Depression with anxiety F41.8 Active Problem Tinnitus H93.19 Active Problem Incontinence R32 Active Problem Stress incontinence N39.3 Active Problem Right anterior knee pain M25.561 Active Problem Hiatal hernia K44.9 Active Problem 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 Medications Medication Code Code Instructions Start End Status Dosage System Date Date Trileptal [facility] 71720535451 300 MG Orally Active 1 tablet Twice a day Singulair [facility] 20674696922 10 MG Orally Active 1 tablet Once a day in the evening Trokendi XR NDC 0 100mg By Mouth Active 1 capsule once a day Loestrin [facility] 59952849696 1.5-30 MG-MCG Active 1 tablet 1.5/30 (21) Orally Once a day Flonase [facility] 71192402206 50 MCG/ACT Active 1 spray in Nasally Once a each day nostril Xanax [facility] 91957139566 0.5 MG Orally Active 1 tablet once a day prn anxiety Vyvanse [facility] 38022888064 40 MG Orally Jun 03, Active 1 capsule Once a day 2019 in the morning ProAir [facility] 05125751861 108 (90 Base) Active 2 puffs as RespiClick MCG/ACT needed Inhalation every 6 hrs Amphetamine-De [facility] 17069959509 20 MG Orally Nov 30, Active 1 capsule xtroamphet ER Once a day 2019 in the morning Results Name Result Date Reference Range Unit Abnormality Flag STREP A RAPID ----Result Negative [id number] FLU TEST A/B ----B Negative [id number] ----A Negative [id number] Summary Purpose eClinicalWorks Submission
--- OUTSIDE RECORDS SUMMARY | 2019-06-13 12:43 | XMS REPORT ---
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 Problem Stress incontinence N39.3 Active Problem Dizziness R42 Active Problem Right anterior knee pain M25.561 Active Problem Stressful life events affecting Z63.79 Active family and household Problem Seasonal allergic rhinitis, J30.2 Active unspecified trigger Problem Seizure disorder G40.909 Active Problem Complex partial seizures with G40.201 Active impaired consciousness at onset Problem Allergic rhinitis J30.9 Active Problem Palpitations R00.2 Active Problem Adult general medical exam Z00.00 Active Problem Anxiety F41.9 Active Problem Intractable epilepsy without status G40.919 Active epilepticus, unspecified epilepsy type Problem History of colonic polyps Z86.010 Active Problem Elevated blood pressure reading R03.0 Active without diagnosis of hypertension Problem Nonintractable epilepsy without G40.909 Active status epilepticus, unspecified epilepsy type Problem Attention deficit hyperactivity F90.2 Active disorder (ADHD), combined type Problem Tinnitus H93.19 Active Problem Hyperlipidemia E78.5 Active Problem 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 Active Problem Depression with anxiety F41.8 Active Problem Hiatal hernia K44.9 Active Problem Incontinence R32 Active Problem Rectal bleeding K62.5 Active Medications Medication Code Code Instructions Start End Date Status Dosage System Date Vyvanse NDC 19487258015 20 MG Orally May 28, Inactive 1 capsule 2020 in am and 1 cap at noon Vyvanse NDC 44396022785 40 MG Orally Jun 03, Active 1 capsule Once a day 2020 in the morning Results No Known Results Summary Purpose eClinicalWorks Submission
[2019-06-13] MEDS ORDERED: NA CHLORIDE 0.9% 1,000 ML ONE ×2 (13:20→15:10)
[2019-06-13 13:22] LABS: Absolute Lymphocytes (CBC) 0.8 K/uL (0.7-4.9); Basophils % 0.3 % (0-1.3); Hematocrit 41.2 % (36.0-45.0); Lymphocytes % 13.2 % (15.3-44.8); MPV 10.2 fL (7.6-11.3); RBC Red Blood Cell Count 4.63 M/uL (3.86-4.86)
[2019-06-13 13:36] LABS: Potassium 3.7 mmol/L (3.5-5.1)
--- NOTE | 2019-06-13 13:41 | RAD REPORT ---
EXAM DESCRIPTION: Mariusz Flower (2 Views)06/13/2019 1:30 pm CLINICAL HISTORY: Cough COMPARISON: 2019 FINDINGS: The lungs appear clear of acute infiltrate. The heart is normal size IMPRESSION: No acute abnormalities displayed
--- NOTE | 2019-06-13 14:45 | EDPHYS ---
Physician Documentation [facility] Name: Snow Argueta Age: 33 yrs Sex: Female : 1985 Arrival Date: 06/13/2019 Time: 12:42 Bed 17 Private MD: ED Physician Matthew Ramirez HPI: 06/13 14:39 This 33 yrs old Female presents to ER via Ambulatory with complaints of Chest rn Pain, Dizziness, cough. 14:40 The patient or guardian reports cough, flu symptoms. Onset: The symptoms/episode rn began/occurred 5 day(s) ago. Severity of symptoms: At their worst the symptoms were mild, in the emergency department the symptoms are unchanged. Modifying factors: The symptoms are alleviated by nothing, the symptoms are aggravated by nothing. The patient has not experienced similar symptoms in the past. Reports children diagnosed with flu, then she started with symptoms earlier in week, swabbed but neg for flu, reports feels worse, still coughing and having sharp pains with deep breath and cough. Still having intermittent fever. . 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 - Coronavirus screen:: The patient has NOT traveled to [place] in the past 14 days. The patient has NOT had contact with known/suspected case of Coronavirus?. - Social history:: Smoking status: Patient denies any tobacco usage or history of. - Family history:: not pertinent. - Ebola Screening: : Patient negative for fever greater than or equal to 101.5 degrees Fahrenheit, and additional compatible Ebola Virus Disease symptoms Patient denies exposure to infectious person Patient denies travel to an Ebola-affected area in the 21 days before illness onset No symptoms or risks identified at this time. - Hospitalizations: : No recent hospitalization is reported. ROS: 14:40 Constitutional: + fever Eyes: Negative for injury, pain, redness, and discharge, ENT: + rn congestion Neck: Negative for injury, pain, and swelling, Cardiovascular: + sharp chest pain with cough Respiratory: + cough and pleuritic chest pain Abdomen/GI: Negative for abdominal pain, nausea, vomiting, diarrhea, and constipation, MS/Extremity: Negative for injury and deformity, Skin: Negative for injury, rash, and discoloration, Neuro: Negative for numbness, tingling, and seizure. Exam: 14:40 Constitutional: This is a well developed, well nourished patient who is awake, alert, rn and in no acute distress. Head/Face: Normocephalic, atraumatic. Eyes: Pupils equal round and reactive to light, extra-ocular motions intact. Lids and lashes normal. Conjunctiva and sclera are non-icteric and not injected. Cornea within normal limits. Periorbital areas with no swelling, redness, or edema. ENT: dry MM Cardiovascular: Tachycardic, regular Respiratory: Clear bilateral breath sounds, no wheezing, no retractions Skin: Warm, dry MS/ Extremity: Pulses equal, no cyanosis. Neuro: Awake and alert, GCS 15 Vital Signs: 12:58 Pulse 119; Resp 19 S; Temp 98.8(O); Pulse Ox 100% on R/A; Weight 85.28 kg (M); Height 5 ca1 ft. 0 in. (152.40 cm) (R); 13:03 BP 128 / 76; lt1 12:58 Body Mass Index 36.72 (85.28 kg, 152.40 cm) ca1 MDM: 12:48 Patient medically screened. rn 14:40 Differential Diagnosis: Bronchitis Influenza Upper Respiratory Infection Viral Syndrome rn Pneumonia. Data reviewed: vital signs, nurses notes, lab test result(s), radiologic studies, plain films, and as a result, I will discharge patient. Counseling: I had a detailed discussion with the patient and/or guardian regarding: the historical points, exam findings, and any diagnostic results supporting the discharge/admit diagnosis, lab results, radiology results, the need for outpatient follow up, to return to the emergency department if symptoms worsen or persist or if there are any questions or concerns that arise at home. Special discussion: I discussed with the patient/guardian in detail that at this point there is no indication for admission to the hospital. It is understood, however, that if the symptoms persist or worsen the patient needs to return immediately for re-evaluation. 14:40 ED course: Too late for tamiflu, no oxygen requirement, no evidence of pneumonia. rn 06/13 13:00 Order name: Flu; Complete Time: 14:39 rn 06/13 13:00 Order name: CBC with Diff; Complete Time: 14:39 rn 06/13 13:00 Order name: Basic Metabolic Panel; Complete Time: 14:39 rn 06/13 13:00 Order name: XRAY Chest Pa And Lat (2 Views); Complete Time: 14:39 rn 06/13 13:00 Order name: IV Start; Complete Time: 13:15 rn Administered Medications: 13:18 Drug: NS 0.9% 1000 ml Route: IV; Rate: 1000 ml; Site: right antecubital; rb1 15:05 Drug: NS 0.9% 1000 ml Route: IV; Rate: 1000 ml; Site: right antecubital; ls4 Disposition: 06/13/19 14:44 Discharged to Home. Impression: Pleurisy, Influenza due to other identified influenza virus. - Condition is Stable. - Discharge Instructions: Influenza, Adult, Pleurisy. - Medication Reconciliation Form, Thank You Letter, Antibiotic Education, Prescription Opioid Use, Work release form form. - Follow up: Private Physician; When: As needed; Reason: Recheck today's complaints, Re-evaluation by your physician. - Problem is an ongoing problem. - Symptoms have improved. Signatures: Dispatcher [employer] EDMS Matthew Ramirez MD MD rn Barber, Rebecca, RN RN rb1 Nelly Banks RN RN ls4 Poornima Zamora RN RN ca1 Corrections: (The following items were deleted from the chart) 16:47 14:44 06/13/2019 14:44 Discharged to Home. Impression: Pleurisy; Influenza due to other ls4 identified influenza virus. Condition is Stable. Forms are Medication Reconciliation Form, Thank You Letter, Antibiotic Education, Prescription Opioid Use. Follow up: Private Physician; When: As needed; Reason: Recheck today's complaints, Re-evaluation by your physician. Problem is an ongoing problem. Symptoms have improved. rn
--- NOTE | 2019-06-13 14:45 | ER ---
Nurse's Notes [facility] Name: Snow Argueta Age: 33 yrs Sex: Female : 1985 Arrival Date: 06/13/2019 Time: 12:42 Bed 17 Private MD: Diagnosis: Pleurisy;Influenza due to other identified influenza virus Presentation: 06/13 12:54 Presenting complaint: Patient states: Chest pains since this morning worst when ca1 coughing and deep breathing. Went to the doctor Friday and diagnosed with Laryngitis and was given a steroid shot. Negative for Flu and Strep Friday. 2 kids positive of Flu Friday and . Reports fever since last night. 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 Transition of care: patient was not received from another setting of care. Onset of symptoms was June 13, 2019. Risk Assessment: Do you want to hurt yourself or someone else? Patient reports no desire to harm self or others. Initial Sepsis Screen: Does the patient meet any 2 criteria? No. Patient's initial sepsis screen is negative. Does the patient have a suspected source of infection? No. Patient's initial sepsis screen is negative. Care prior to arrival: None. 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 - Coronavirus screen:: The patient has NOT traveled to [place] in the past 14 days. The patient has NOT had contact with known/suspected case of Coronavirus?. - Social history:: Smoking status: Patient denies any tobacco usage or history of. - Family history:: not pertinent. - Ebola Screening: : Patient negative for fever greater than or equal to 101.5 degrees Fahrenheit, and additional compatible Ebola Virus Disease symptoms Patient denies exposure to infectious person Patient denies travel to an Ebola-affected area in the 21 days before illness onset No symptoms or risks identified at this time. - Hospitalizations: : No recent hospitalization is reported. Screenin:50 Abuse screen: Denies threats or abuse. Nutritional screening: No deficits noted. rb1 Tuberculosis screening: No symptoms or risk factors identified. Fall Risk None identified. Assessment: 12:50 General: Appears in no apparent distress. comfortable, Behavior is calm, cooperative, rb1 Reports fever for since last night Max temp. 101.3. Pain: Complains of pain in chest and ribs Pain does not radiate. Pain currently is 9 out of 10 on a pain scale. Pain began Friday Aggravated by coughing and deep breathing. Neuro: Level of Consciousness is awake, alert, obeys commands, Oriented to person, place, time, situation. Cardiovascular: Capillary refill < 3 seconds is brisk in bilateral fingers. Respiratory: Reports cough that is productive, green sputum Airway is patent Respiratory effort is even, unlabored, Respiratory pattern is regular, symmetrical. GI: Reports nausea. : No signs and/or symptoms were reported regarding the genitourinary system. Derm: Skin is pink, warm \T\ dry. 13:25 Reassessment: Pt. went to X-ray. rb1 15:16 Reassessment: Patient and/or family updated on plan of care and expected duration. Pain ls4 level reassessed. Patient is alert, oriented x 3, equal unlabored respirations, skin warm/dry/pink. IV FLUIDS ORDERED AFTER DISCHARGE INFUSING. DISCHARGE DELAYED. Vital Signs: 12:58 Pulse 119; Resp 19 S; Temp 98.8(O); Pulse Ox 100% on R/A; Weight 85.28 kg (M); Height 5 ca1 ft. 0 in. (152.40 cm) (R); 13:03 BP 128 / 76; lt1 12:58 Body Mass Index 36.72 (85.28 kg, 152.40 cm) ca1 ED Course: 12:42 Patient arrived in ED. as 12:48 Matthew Ramirez MD is Attending Physician. rn 12:50 Patient has correct armband on for positive identification. Placed in gown. Bed in low rb1 position. Call light in reach. Side rails up X 1. beauty consultant on. Pulse ox on. NIBP on. Warm blanket given. 12:50 Patient maintains SpO2 saturation greater than 95% on room air. rb1 12:56 Triage completed. ca1 12:59 Arm band placed on right wrist. ca1 13:11 Initial lab(s) drawn, by me, sent to lab. Flu and/or RSV swab sent to lab. Inserted dh3 saline lock: 20 gauge in right antecubital area, using aseptic technique. Blood collected. 13:13 Irlanda Canchola, RN is Primary Nurse. rb1 13:29 XRAY Chest Pa And Lat (2 Views) In Process Unspecified. EDMS Administered Medications: 13:18 Drug: NS 0.9% 1000 ml Route: IV; Rate: 1000 ml; Site: right antecubital; rb1 15:05 Drug: NS 0.9% 1000 ml Route: IV; Rate: 1000 ml; Site: right antecubital; ls4 Outcome: 14:44 Discharge ordered by . rn 16:47 Patient left the ED. ls4 Signatures: Dispatcher [employer] EDMS Dee Dee Dodson Roman, MD MD rn Barber, Rebecca, RN RN rb1 Kitty Vee 3 Nelly Banks RN RN ls4 Poornima Zamora RN RN ca1 Frances Childress [facility]
[2019-06-13 17:01] VITALS: BP 128/76; TEMP 98.8; O2SAT 100
--- NOTE | 2019-06-14 08:54 | EKG ---
Test Date: 2019-06-13 Test Time: 12:53:04 Fondant Puff Maker: JAYDEN MEASUREMENT RESULTS: Intervals: Rate: 111 VT: 140 QRSD: 80 QT: 336 QTc: 456 [place]: P: 48 VT: 140 QRS: 25 T: 54 INTERPRETIVE STATEMENTS: Sinus tachycardia Otherwise normal ECG Compared to ECG 09/26/2018 05:37:09 Sinus rhythm no longer present Electronically Signed On 06-14-19 08:53:27 IT SENIOR ANALYST by Yeison Bowie
== END 2019-06-13 16:47 | disposition home or self-care (01) ==
LOC: ER 12:41
DX: J10.1 Influenza due to other identified influenza virus with other respiratory manifestations (principal); G40.909 Epilepsy, unspecified, not intractable, without status epilepticus; F90.9 Attention-deficit hyperactivity disorder, unspecified type; Z88.8 Allergy status to other drugs, medicaments and biological substances; Z91.040 Latex allergy status; Z91.048 Other nonmedicinal substance allergy status
CPT/HCPCS: 36415; 71046; 80048; 85025; 87804; 93005; 99285; J7030

== ENCOUNTER 2019-09-07 12:34 | Emergency (ER) | payer BC ==
--- OUTSIDE RECORDS SUMMARY | 2019-09-07 12:36 | XMS REPORT | Continuity of Care Document ---
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[facility] r * leukemia Neuro (context-depe ndent category) Headache Active Problem 05/25/2019 [facility] (finding) Neuro Simple Active Problem 05/25/2019 [facility] obesity Neuro (disorder) Backache Active Problem 05/25/2019 [facility] (finding) Neuro Medications Medication Details Route Status Patient Ordering Order Source Instructions Provider Date oxcarbazepine 300 300 mg = 1 Active Mis doreen MG Oral Tablet tab, PO, 019 Neuro [Trileptal] BID, # 180 tab, 3 Refill(s), Pharmacy: [facility] #[id number] 24 HR topiramate 100 mg = 1 Active Misc her 100 MG Extended cap, PO, 019 Neuro Release Capsule Daily, # 90 [Trokendi] cap, 3 Refill(s), Pharmacy: [facility] #[id number] 24 HR topiramate 100 mg = 1 No Longer Mi matt 100 MG Extended cap, PO, Active 019 Neuro Release Capsule Daily, X 30 [Trokendi] day, # 30 cap, 3 Refill(s), Pharmacy: [facility] [place] oxcarbazepine 300 300 mg = 1 No Longer M ischer MG Oral Tablet tab, PO, Active 019 Neuro [Trileptal] BID, X 30 day, # 60 tab, 3 Refill(s), Pharmacy: [facility] lisdexamfetamine 30 mg = 1 Active Misch er dimesylate 30 MG cap, PO, 019 Neuro Oral Capsule QAM, # 30 [Vyvanse] cap, 0 Refill(s) omeprazole 20 mg 20 mg = 1 Active Misch er oral delayed cap, PO, 019 Neuro release capsule Daily, # 30 cap, 2 Refill(s), Pharmacy: [facility] oxcarbazepine 300 300 mg = 1 Active Mis doreen MG Oral Tablet tab, PO, 019 Neuro [Trileptal] BID, # 60 tab, 2 Refill(s), Pharmacy: [facility] 24 HR topiramate 100 mg = 1 Active Misc her 100 MG Extended cap, PO, 019 Neuro Release Capsule Daily, # 30 [Trokendi] cap, 3 Refill(s), Pharmacy: [facility] topiramate 25 MG 25 mg = 1 Active Misch er Oral Tablet tab, PO, 019 Neuro [Topamax] BID, # 60 tab, 2 Refill(s), Pharmacy: [facility] Phenytoin sodium 200 mg = 2 Active Misc her 100 MG Extended cap, PO, 019 Neuro Release Capsule BID, # 120 [Dilantin] cap, 3 Refill(s), Pharmacy: [facility] Alprazolam 0.5 MG 0.5 mg = 1 Active Mis doreen Oral Tablet tab, PO, 019 Neuro [Xanax] TID, 0 Refill(s) Zyrtec Daily, 0 Active [facility]ischer Refill(s) 019 Neuro Phenytoin sodium 100 mg = 1 Inactive Mis doreen 100 MG Extended cap, PO, 019 Neuro Release Capsule TID, # 90 [Dilantin] cap, 1 Refill(s) Allergies, Adverse Reactions, Alerts Substance Category Reaction Severity Reaction Status Date Comments S ource type Reported cephalexin Assertion Drug Active Mis doreen allergy Neuro Latex Assertion Allergy to Active Mis doreen substance Neuro Gadavist Assertion Drug Active Misch er allergy Neuro Immunizations No Data Provided for This Section Results No Data Provided for This Section Pathology Reports No Data Provided for This Section Diagnostic Reports No Data Provided for This Section Consultation Notes No Data Provided for This Section Discharge Summaries No Data Provided for This Section History and Physicals No Data Provided for This Section Vital Signs Vital Sign Value Date Comments Source Systolic (mm Hg) 120 12/23/2018 [facility] Adrian ro Diastolic (mm Hg) 85 12/23/2018 [facility] 75 [facility] 16 12/23/2018 [facility] Height 167.64 cm 12/23/2018 [facility] Weight 90 12/23/2018 [facility] BMI Calculated 32.02 12/23/2018 [facility] BMI Calculated 32.02 11/27/2018 [facility] Weight 90 11/27/2018 [facility] Height 167.64 cm 11/27/2018 [facility] Heart Rate 74 11/27/2018 [facility] Respitory Rate 16 11/27/2018 [facility] Systolic (mm Hg) 106 11/27/2018 [facility] Adrian ro Diastolic (mm Hg) 79 11/27/2018 [facility] BMI Calculated 33 10/16/2018 [facility] Weight 92.727 10/16/2018 [facility] Height 167.64 cm 10/16/2018 [facility] Heart Rate 78 10/16/2018 [facility] Respitory Rate 16 10/16/2018 [facility] Systolic (mm Hg) 129 10/16/2018 [facility] Adrian ro Diastolic (mm Hg) 87 10/16/2018 [facility] BMI Calculated 32.67 10/01/2018 [facility] Weight 91.818 10[facility]01/2018 [facility] Height 167.64 cm 10/01/2018 [facility] Respitory Rate 16 10/01/2018 [facility] Neuro Heart Rate 83 10/01/2018 [facility] Systolic (mm Hg) 109 10/01/2018 [facility] Adrian ro Diastolic (mm Hg) 80 10/01/2018 [facility] Encounters Location Location Encounter Encounter Reason Attending ADM LA Stat us Source Details Type Number For Provider Date Date Visit Outpatient [id number] David 10/01 Active [facility] Outpatient [id number] David 10/01 10/02 [facility] Neurology [facility] [place] Outpatient [id number] David 10/02 Active [facility] Outpatient [id number] David 10/02 10/03 [facility] Neurology [facility] [place] Outpatient [id number] David 10/16 [facility] Outpatient [id number] David 10/16 10/17 [facility] Neurology [facility] [place] Outpatient [id number] David 11/27 Active [facility] [place] [facility] Outpatient [id number] David 11/27 11/28 [facility] Neurology [facility] [place] Outpatient [id number] David 12/23 Active [facility] Outpatient [id number] David 12/23 12/24 [facility] Neurology [facility] [place] Outpatient [id number] David 04/28 Active [facility] [place] [facility] Ambulatory [id number] David 04/28 04/28 [facility] Neurology Pre-Reg Kre /2019 [facility] [place] [facility] Outside [id number] 05/21 05/23 [facility] Neurology Medical /2019 [facility] [place] Records Procedures Procedure Code Date Perfomer Comments Source Tubal ligation [id number] [facility] Ne u[facility] Assessment and Plan No Data Provided for This Section Plan of Care No Data Provided for This Section Social History Social History Date Source Social History TypeResponse 10/01/2018 [facility] Neur o Employment/School Status: Employed. Smoking Status Never smoker; Exposure to Tobacco Smoke None; Cigarette Smoking Last 365 Days No; Reg Smoking Cessation Counseling No entered on: 12/23/18 Family History No Data Provided for This Section Advance Directives No Data Provided for This Section Functional Status No Data Provided for This Section
--- OUTSIDE RECORDS SUMMARY | 2019-09-07 12:36 | XMS REPORT | Summary of Care ---
:1985 Author Organization [facility] [place] Address [address] [place] [address]- Encounter HQ Alfonso_madelyn(TENISHA) [id number] Date(s): 10/16/18 - 10/16/18 [facility] [address] [place] [address]- [phone] Discharge Disposition: Home or Self Care Attending Physician: David Chung MD Referring Physician: Marck Carlson MD Vital Signs Most recent to oldest [Reference Range]: 1 Height 167.64 cm (10/16/18 9:19 AM) Blood Pressure [90-140/60-90 mmHg] 129/87 mmHg (10/16/18 9:19 AM) Respiratory Rate [14-20 BRMIN] 16 BRMIN (10/16/18 9:19 AM) Peripheral Pulse Rate [60-100 bpm] 78 bpm (10/16/18 9:19 AM) Weight 92.727 kg (10/16/18 9:19 AM) Body Mass Index 33 m2 (10/16/18 9:19 AM) Problem List Condition Effective Dates Status Health Status Informant Complex partial seizures(Confirmed) Active History of leukemia(Confirmed) Active Headache(Confirmed) Active Simple obesity(Confirmed) Active Allergies, Adverse Reactions, Alerts Substance Reaction Severity Status cephalexin Active Latex Active Gadavist Active Medications Trokendi XR 100 mg oral capsule, extended release 100 mg = 1 cap, PO, Daily, # 30 cap, 3 Refill(s), Pharmacy: [facility] [place] Start Date: 10/16/18 Stop Date: 02/13/19 Status: Ordered Results No data available for this section Immunizations No data available for this section Procedures Procedure Date Related Diagnosis Body Site Status Tubal ligation Completed Social History Social History Type Response Employment/School Status: Employed. Smoking Status Never smoker; Exposure to To bacco Smoke None; Cigarette Smoking Last 365 Days No; Reg Smoking Cessation Counseling No entered on: 10/16/18 Assessment and Plan No data available for this section
--- OUTSIDE RECORDS SUMMARY | 2019-09-07 12:36 | XMS REPORT | Summary of Care ---
:1985 Author Organization [facility] Neurology [place] Address [address] [place] [address]- Encounter HQ Encntr_alias(FIN) [id number] Date(s): 04/28/19 - 04/28/19 [facility] [address] [place] [address]- [phone] Attending Physician: David Chung MD Referring Physician: Marck Carlson MD Vital Signs No data available for this section Problem List Condition Effective Dates Status Health Status Informant Back pain(Confirmed) Active Complex partial seizures(Confirmed) Active History of leukemia(Confirmed) Active Headache(Confirmed) Active Simple obesity(Confirmed) Active Allergies, Adverse Reactions, Alerts Substance Reaction Severity Status cephalexin Active Latex Active Gadavist Active Medications Trileptal 300 mg oral tablet 300 mg = 1 tab, PO, BID, # 180 tab, 3 Refill(s), Pharmacy: [facility] #[id number] Start Date: 12/25/18 Stop Date: 12/20/19 Status: OrderedTrokendi XR 100 mg oral capsule, extended release 100 mg = 1 cap, PO, Daily, # 90 cap, 3 Refill(s), Pharmacy: [facility] #[id number] Start Date: 12/25/18 Stop Date: 12/20/19 Status: Ordered Results No data available for this section Immunizations No data available for this section Procedures Procedure Date Related Diagnosis Body Site Status Tubal ligation Completed Social History Social History Type Response Employment/School Status: Employed. Smoking Status Never smoker; Exposure to To bacco Smoke None; Cigarette Smoking Last 365 Days No; Reg Smoking Cessation Counseling No entered on: 12/23/18 Assessment and Plan No data available for this section
--- OUTSIDE RECORDS SUMMARY | 2019-09-07 12:36 | XMS REPORT | Summary of Care ---
:1985 Author Organization [facility] Neurology [place] Address [address] [place] [address]- Encounter HQ Gui(TENISHA) [id number] Date(s): 11/27/18 - 11/27/18 [facility] [address] [place] [address]- [phone] Discharge Disposition: Home or Self Care Attending Physician: David Chung MD Referring Physician: Marck Carlson MD Vital Signs Most recent to oldest [Reference Range]: 1 Height 167.64 cm (11/27/18 10:59 AM) Blood Pressure [90-140/60-90 mmHg] 106/79 mmHg (11/27/18 10:59 AM) Respiratory Rate [14-20 BRMIN] 16 BRMIN (11/27/18 10:59 AM) Peripheral Pulse Rate [60-100 bpm] 74 bpm (11/27/18 10:59 AM) Weight 90 kg (11/27/18 10:59 AM) Body Mass Index 32.02 m2 (11/27/18 10:59 AM) Problem List Condition Effective Dates Status Health Status Informant Back pain(Confirmed) Active Complex partial seizures(Confirmed) Active History of leukemia(Confirmed) Active Headache(Confirmed) Active Simple obesity(Confirmed) Active Allergies, Adverse Reactions, Alerts Substance Reaction Severity Status cephalexin Active Latex Active Gadavist Active Medications omeprazole 20 mg oral delayed release capsule 20 mg = 1 cap, PO, Daily, # 30 cap, 2 Refill(s), Pharmacy: [facility] [place] Start Date: 11/03/18 Stop Date: 02/01/19 Status: OrderedTrileptal 300 mg oral tablet 300 mg = 1 tab, PO, BID, # 60 tab, 2 Refill(s), Pharmacy: [facility] Start Date: 10/21/18 Stop Date: 01/19/19 Status: OrderedVyvanse 30 mg oral capsule 30 mg = 1 cap, PO, QAM, # 30 cap, 0 Refill(s) Start Date: 11/27/18 Status: Ordered Results No data available for this section Immunizations No data available for this section Procedures Procedure Date Related Diagnosis Body Site Status Tubal ligation Completed Social History Social History Type Response Employment/School Status: Employed. Smoking Status Never smoker; Exposure to To bacco Smoke None; Cigarette Smoking Last 365 Days No; Reg Smoking Cessation Counseling No entered on: 11/27/18 Assessment and Plan No data available for this section
--- OUTSIDE RECORDS SUMMARY | 2019-09-07 12:36 | XMS REPORT | Summary of Care ---
:1985 Author Organization [facility] Neurology [place] Address [address] [place] [address]- Encounter HQ Gui(TENISHA) [id number] Date(s): 12/23/18 - 12/23/18 [facility] [address] [place] [address]- [phone] Discharge Disposition: Home or Self Care Attending Physician: David Chung MD Referring Physician: Marck Carlson MD Vital Signs Most recent to oldest [Reference Range]: 1 Height 167.64 cm (12/23/18 1:03 PM) Blood Pressure [90-140/60-90 mmHg] 120/85 mmHg (12/23/18 1:03 PM) Respiratory Rate [14-20 BRMIN] 16 BRMIN (12/23/18 1:03 PM) Peripheral Pulse Rate [60-100 bpm] 75 bpm (12/23/18 1:03 PM) Weight 90 kg (12/23/18 1:03 PM) Body Mass Index 32.02 m2 (12/23/18 1:03 PM) Problem List Condition Effective Dates Status Health Status Informant Back pain(Confirmed) Active Complex partial seizures(Confirmed) Active History of leukemia(Confirmed) Active Headache(Confirmed) Active Simple obesity(Confirmed) Active Allergies, Adverse Reactions, Alerts Substance Reaction Severity Status cephalexin Active Latex Active Gadavist Active Medications Trileptal 300 mg oral tablet 300 mg = 1 tab, PO, BID, X 30 day, # 60 tab, 3 Refill(s), Pharmacy: [facility] [place] Start Date: 12/23/18 Stop Date: 12/25/18 Status: CompletedTrokendi XR 100 mg oral capsule, extended release 100 mg = 1 cap, PO, Daily, X 30 day, # 30 cap, 3 Refill(s), Pharmacy: [facility] [place] Start Date: 12/23/18 Stop Date: 12/25/18 Status: Completed Results No data available for this section [...]
--- OUTSIDE RECORDS SUMMARY | 2019-09-07 12:36 | XMS REPORT | Summary of Care ---
:1985 Author Organization [facility] Neurology [place] Address [address] [place] [address]- phone Encounter HQ Encntr_alias(FIN) [id number] Date(s): 05/21/19 - 05/22/19 [facility] [address] [place] [address]- [phone] Vital Signs No data available for this section Problem List Condition Effective Dates Status Health Status Informant Back pain(Confirmed) Active Complex partial seizures(Confirmed) Active History of leukemia(Confirmed) Active Headache(Confirmed) Active Simple obesity(Confirmed) Active Allergies, Adverse Reactions, Alerts Substance Reaction Severity Status cephalexin Active Latex Active Gadavist Active Medications No data available for this section Results No data available for this section [...]
--- OUTSIDE RECORDS SUMMARY | 2019-09-07 12:37 | XMS REPORT ---
:1985 Author Organization [facility] t Address [address] [place] [address] Care Team Providers Name Role Phone Marck Chung Attending Clinician Problems Condition Condition Condition Status Onset Resolution Last Treating Co mments Source Name Details Category Date Date Treatment Clinician Date Allergic Allergic Problem [facility] Leukemia Leukemia Problem [facility] Hyperlipid Hyperlipid Problem Active [facility] emia emia [facility] Urgency-fr Urgency-fr Problem Active [facility] equency equency [facility] - syndrome syndrome [facility] a l [facility] Attention Attention Problem Active [facility] deficit deficit [facility] 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 Outpat i (ADHD), (ADHD), ent combined combined Clinic s type type Depression Depression Problem Active [facility] with with [facility] anxiety anxiety [facility] Stress Stress Problem Active [facility] incontinen incontinen Ann Marie kes - ce ce [facility] Tinnitus Tinnitus Problem [facility] Rectal Rectal Problem Active [facility] bleeding bleeding [facility] Incontinen Incontinen Problem Active [facility] ce ce [facility] Hiatal Hiatal Problem Active [facility] hernia hernia [facility] Seasonal Seasonal Problem Active [facility] allergic allergic [facility] - rhinitis, rhinitis, Unruly kieran unspecifie unspecifie l d trigger d trigger Outp ati ent Clinics Benign Benign Problem Active [facility] essential essential [facility] s - HTN HTN [facility] Dizziness Dizziness Problem Active [facility] Gastritis Gastritis Problem Active [facility] Anxiety Anxiety Problem Active [facility] GERD GERD Problem Active [facility] (gastroeso (gastroeso Ann Marie kes - phageal phageal Memoria reflux reflux l disease) disease) Outpat i ent Clinics Palpitatio Palpitatio Problem Active [facility] ns ns [facility] Stressful Stressful Problem Active [facility] life life [facility] events events Memoria affecting affecting l family and family and Ou tpati household household ent Clinics Right Right Problem Active [facility] anterior anterior [facility] - knee pain knee pain Unruly kieran l [facility] History of History of Problem Active [facility] colonic colonic [facility] - polyps polyps Memoria l [facility] Elevated Elevated Problem Active [facility] blood blood [facility] - pressure pressure Memori a reading reading l without without Outpati diagnosis diagnosis ent of of Clinics hypertensi hypertensi on on Seizure Seizure Problem Active [facility] disorder disorder [facility] Intractabl Intractabl Problem Active [facility] e epilepsy e epilepsy Ann Marie kes - without without Memoria status status l epilepticu epilepticu Ou tpati s, s, ent unspecifie unspecifie Cl inics d epilepsy d epilepsy type type Complex Complex Problem Active [facility] partial partial [facility] - seizures seizures Memori a with with l impaired impaired Outpat i consciousn consciousn en t ess at ess at Clinics onset onset Adult Adult Problem Active [facility] general general [facility] - medical medical [facility] exam exam l [facility] Cough Cough Problem Active [facility] Viral Viral Problem Active [facility] illness illness [facility] Laryngitis Laryngitis Problem Active [facility] Allergies, Adverse Reactions, Alerts Allergy Allergy Status Severity Reaction(s) Onset Inactive Treating Comm ents Source Name Type Date Date Clinician Cephalex Adverse Active Info Not [facility] in Reaction Available kes - [facility] Zofran Adverse Active Info Not [facility] Reaction Available [facility] - [facility] Medications Ordered Filled Start Stop Current Ordering Indication Dosage Frequency Signature Comments Components Source Medication Medication Date Date Medication? Clinician (SIG) Name Name Azelastine Azelastine Yes Na Savage [address] [facility] [address] HCl HCl 4-24 into [facility] - 00:00: affected Mem[facility] 00 eye l Outpati ent Clinics [facility] Angelconore Yes Na Savage [address] [facility] 4-24 in the [facility] - 00:00: morning [facility] 00 l Outpati ent Clinics Vyvanse yvanse Yes Na Savage [address] [facility] 2-13 in the [facility] - 00:00: morning [facility]oria 00 l Outpati ent Clinics Trileptal Trileptal Yes Na Savage [address] [facility] Clinics Singulair Singulair Yes Na Savage [address] [address] in the [facility] - evening [facility] l Outpati ent Clinics Loestrin Loestrin Yes Na Savage [address] 1.530 (21) 1.530 (21) [facility] - [facility] l Outpati ent Clinics Flonase Flonase Yes Na Savage [address] [facility] [address] [facility] - nostril [facility] l Outpati ent Clinics Xanax Xanax Yes Na Savage [address] [facility] - [facility] l Outpati ent Clinics Trokendi XR Trokendi XR Yes Na Savage not [facility] defined [facility] l Outpati ent Clinics Procedures This patient has no known procedures. Encounters Start End Encounter Admission Attending Care Care Encounter Source Date/Time Date/Time Type Type Clinicians Facility Department ID 2019-08-13 2019-08-13 [facility] [id number] [facility] 10:20:00 10:20:00 [place] [facility] Medicine Outpati ent Clinics 2019-08-12 2019-08-12 [facility] [id number] [address] 09:49:00 09:49:00 [place] [facility] Medicine l Medicine Outpati ent Clinics 2019-06-15 2019-06-15 [facility] [id number] [address] 15:24:00 15:24:00 [place] [facility] Medicine Outpati ent Clinics 2019-06-09 2019-06-09 [facility] [id number] [address] 08:40:00 08:40:[address] [facility] [address] [facility] Medicine Outpati ent Clinics 2019-06-03 2019-06-03 [facility] [id number] [address] 10:52:00 10:52:00 [place] [employer] [facility] - [facility] Medicine Outpati ent Clinics 2019-05-28 2019-05-28 [facility] [id number] 16:20:00 16:20:00 t [place] [email or web address] - [facility] Medicine Outpati ent Clinics 2019-05-21 2019-05-22 Outpatient MHMISCHER MHMISCHER [id number] 14:44:00 23:59:59 00 [facility] 2019-04-28 2019-04-28 Outpatient FAYE ChungMISCHER MHMISCHER [id number] 13:00:00 13:00:00 David 05 [facility] [place] [facility] 2019-01-01 2019-01-01 [facility] [id number] [address] 15:32:00 15:32:00 t [place] [email or web address] - [facility] Medicine Outpati ent Clinics 2018-12-31 2018-12-31 [facility] [id number] 09:55:00 09:55:00 t [place] [email or web address] - [facility] Medicine Outpati ent Clinics 2018-12-30 2018-12-30 [facility] [id number] 13:25:00 13:25:00 t [place] [email or web address] - Drive [facility] Medicine Outpati ent Clinics 2018-12-30 2018-12-30 [facility] [id number] 08:00:00 08:00:00 [place] [email or web address] - [facility] Medicine Outpati ent Clinics 2018-12-29 2018-12-29 [facility] [id number] 09:42:00 09:42:00 [place] [email or web address] - Drive [facility] Medicine Outpati ent Clinics 2018-12-23 2018-12-23 Outpatient FAYE ChungMISCHER MHMISCHER [id number] 13:15:00 23:59:59 David 04 Mislucien alcides [facility] 2018-12-04 2018-12-04 [facility] [id number] 16:20:00 16:20:00 t [place] [facility] 2018-11-30 2018-11-30 [facility] [id number] 10:08:00 10:08:00 t [facility] 2018-11-27 2018-11-27 Outpatient FAYE ChungMISCHER MHMISCHER [id number] 10:45:00 23:59:59 David 03 Mislucien alcides [facility] 2018-11-27 2018-11-27 [facility] [id number] 13:00:00 13:00:00 [place] [facility] 2018-10-29 2018-10-29 [facility] [id number] 10:40:00 10:40:00 t [place] [facility] 2018-10-16 2018-10-16 Outpatient DEDE ChungSCHBINU MHMISCHER [id number] 09:00:00 23:59:59 David 02 Chad [facility] 2018-10-02 2018-10-02 Outpatient DEDE ChungSCHBINU MHMISCHER [id number] 15:00:00 23:59:59 David 01 Chad [facility] 2018-10-01 2018-10-01 Outpatient FAYE ChungMISCHER MHMISCHER [id number] 08:15:00 23:59:59 David 00 Chad [facility] 2018-09-30 2018-09-30 [facility] [id number] 13:00:00 13:00:00 [place] [facility] 2018-08-31 2018-08-31 [facility] [id number] 11:00:00 11:00:00 [place] [email or web address] - [facility] Medicine Outpati ent Clinics 2018-07-27 2018-07-27 [facility] [id number] 13:54:00 13:54:00 [place] [email or web address] - Drive [facility] Medicine Outpati ent Clinics 2018-07-23 2018-07-23 [facility] [id number] 08:53:00 08:53:00 [place] [employer] s - Drive [facility] Medicine Outpati ent Clinics 2018-07-23 2018-07-23 [facility] [id number] 08:15:00 08:15:00 [place] [employer] s - Drive [facility] Medicine Outpati ent Clinics 2018-06-22 2018-06-22 [facility] [id number] 10:30:00 10:30:00 [place] [employer] s - Drive [facility] Medicine Outpati ent Clinics 2018-05-04 2018-05-04 [facility] [id number] 12:00:00 12:00:00 [place] [employer] - [employer] [facility] Medicine Outpati ent Clinics 2018-04-02 2018-04-02 [facility] [id number] 09:00:00 09:00:00 t [place] [employer] - Drive [facility] Medicine Outpati ent Clinics Results This patient has no known results.
--- OUTSIDE RECORDS SUMMARY | 2019-09-07 12:37 | XMS REPORT ---
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919 Active epilepticus, unspecified epilepsy type Problem History of colonic polyps Z86.010 Ac tive Problem Elevated blood pressure reading R03.0 Active without diagnosis of hypertension Problem Nonintractable epilepsy without G40.909 Active status epilepticus, unspecified epilepsy type Problem Attention deficit hyperactivity F90.2 Active disorder (ADHD), combined type Problem Tinnitus H93.19 Active Problem Hyperlipidemia E78.5 Active Problem 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 Active Problem Depression with anxiety F41.8 Acti ve Problem Hiatal hernia K44.9 Active Problem Incontinence R32 Active Problem Rectal bleeding K62.5 Active Medications Medication Code Code Instructions Start End Date Status Dosage System Date Vyvanse NDC 62857980327 20 MG Orally May 28, Inactive 1 caps ule 2020 in am and 1 cap at noon Vyvanse NDC 81752943663 40 MG Orally Jun 03, Active 1 capsu le Once a day 2020 in the morning Results No Known Results Summary Purpose eClinicalWorks Submission
--- OUTSIDE RECORDS SUMMARY | 2019-09-07 12:37 | XMS REPORT ---
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 A ctive Problem Elevated blood pressure reading R03.0 Active without diagnosis of hypertension Problem Nonintractable epilepsy without G40.909 Active status epilepticus, unspecified epilepsy type Problem Dizziness R42 Active Problem Benign essential HTN I10 Active Problem Complex partial seizures with G40.201 Active impaired consciousness at onset Problem GERD (gastroesophageal reflux K21.9 Active disease) Problem Right anterior knee pain M25.561 Act ingris Problem Stressful life events affecting Z63.79 Active family and household Problem Intractable epilepsy without status G40.919 Active epilepticus, unspecified epilepsy type Problem History of colonic polyps Z86.010 Ac tive Problem Allergic rhinitis J30.9 Active Problem Hyperlipidemia E78.5 Active Problem Anxiety F41.9 Active Problem Palpitations R00.2 Active Problem Tinnitus H93.19 Active Problem Incontinence R32 Active Problem 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 Active Problem Attention deficit hyperactivity F90.2 Active disorder (ADHD), combined type Medications Medication Code System Code Instructions Start End Date Status Dos age Date Singulair [facility] 18850480335 10 MG Orally Active 1 tab let in Once a day the evening Vyvanse [facility] 30371907965 20 MG Orally Dec 31, Active 1 caps ule daily 2019 in the morning and 1 capsule at noon Results No Known Results Summary Purpose eClinicalWorks Submission
--- OUTSIDE RECORDS SUMMARY | 2019-09-07 12:38 | XMS REPORT ---
:1985 Author Organization [employer] Care Team Providers Name Role Phone Gaye Aburto Provider Role Unavailable Allergies, Adverse Reactions, Alerts Substance Reaction Event Type Zofran Info Not Available Drug Allergy Cephalexin Info Not Available Drug Allergy Problems Problem Type Condition Code Onset Dates Condition Statu s Assessment Cough R05 Active Assessment Mild reactive [...] Active Problem History of colonic polyps Z86.010 Ac tive Problem Nonintractable epilepsy without G40.909 Active status [...] general medical exam Z00.00 A ctive Problem Rectal bleeding K62.5 Active Assessment Laryngitis J04.0 Active Problem Depression with anxiety F41.8 Acti ve Problem Tinnitus H93.19 Active Problem Incontinence R32 Active Problem Stress incontinence N39.3 Active Problem Right anterior knee pain M25.561 Act ingris Problem Hiatal hernia K44.9 Active Problem 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 A ctive Medications Medication Code Code Instructions Start End Status Dosage System Date Date Trileptal [facility] 15015479011 300 MG Orally Active 1 ta blet Twice a day Singulair [facility] 67480149776 10 MG Orally Active 1 tab let Once a day in the evening Trokendi XR NDC 0 100mg By Mouth Active 1 cap vincent once a day Loestrin [facility] 30434491165 1.5-30 MG-MCG Active 1 tab let 1.09/17 (21) Orally Once a day Flonase [facility] 04879788804 50 MCG/ACT Active 1 spray i n Nasally Once a each day nostril Xanax [facility] 55409820916 0.5 MG Orally Active 1 tabl et once a day prn anxiety Vyvanse [facility] 06660161825 40 MG Orally Jun 03, Active 1 capsu le Once a day 2019 in the morning ProAir [facility] 74773719684 108 (90 Base) Active 2 puff s as RespiClick MCG/ACT needed Inhalation every 6 hrs Amphetamine-De [facility] 67764409248 20 MG Orally Nov 30, Active 1 capsule xtroamphet ER Once a day 2018 in the morning Results Name Result Date Reference Range Unit Abnormali ty Flag STREP A RAPID ----Result Negative [id number] FLU TEST A/B ----B Negative [id number] ----A Negative [id number] Summary Purpose eClinicalWorks Submission
--- OUTSIDE RECORDS SUMMARY | 2019-09-07 12:38 | XMS REPORT ---
:1985 Author Organization eClinicalWorks Care Team Providers Name Role Phone Savage, Na Provider Role Unavailable Allergies, Adverse Reactions, Alerts Substance Reaction Event Type Zofran Info Not Available Drug Allergy Cephalexin Info Not Available Drug Allergy Problems Problem Type Condition Code Onset Dates Condition Statu s Assessment Acute allergic rhinitis J30.9 Acti ve Assessment Seizure disorder G40.909 Active Assessment Attention deficit hyperactivity F90.2 Active disorder (ADHD), combined type Problem GERD (gastroesophageal reflux K21.9 Active disease) [...] A ctive Problem Rectal bleeding K62.5 Active Problem Depression with anxiety F41.8 Acti ve Problem Tinnitus H93.19 Active Problem Incontinence R32 Active Problem Stress incontinence N39.3 Active Problem Right anterior knee pain M25.561 Act nigris Problem Hiatal hernia K44.9 Active Problem 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 A ctive Medications Medication Code Code Instructions Start End Status Dosage System Date Date Flonase [facility] 59317274914 50 MCG/ACT Active 1 spray i n Nasally Once a each day nostril Trokendi XR [facility] 78629846155 100mg By Mouth Active n ot defined Trileptal ND 77524007613 300 MG Orally Active 1 ta blet Twice a day Loestrin [facility] 48472245030 1.5-30 MG-MCG Active 1 tab let .09/17 () Orally Once a day Azelastine HCl [facility] 99417717668 0.05 % July Active 1 kristi p into Ophthalmic twice 2019 affect ed a day prn itchy eye eyes Xanax [facility] 50791839596 0.5 MG Orally Active 1 tabl et once a day prn anxiety Singulair ND 72876013743 10 MG Orally Active 1 tab let in Once a day the evening Vyvanse [facility] 00742857311 40 MG Orally Jun 03, Active 1 capsu le Once a day 2019 in the morning Vyvanse [facility] 69490086198 50 MG Orally July Active 1 capsu le Once a day 2019 in the morning Results No Known Results Summary Purpose eClinicalWorks Submission
--- OUTSIDE RECORDS SUMMARY | 2019-09-07 12:38 | XMS REPORT ---
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
--- OUTSIDE RECORDS SUMMARY | 2019-09-07 12:38 | XMS REPORT ---
:1985 Author Organization eClinicalWorks Care Team Providers Name Role Phone Savage, Na Provider Role Unavailable Allergies, Adverse Reactions, Alerts Substance Reaction Event Type Cephalexin Info Not Available Drug Allergy Problems Problem Type Condition Code Onset Dates Condition Statu s Assessment Attention deficit hyperactivity F90.2 Active disorder (ADHD), combined type Assessment Acute allergic rhinitis J30.9 Acti ve Assessment Adult general medical exam Z00.00 A ctive Problem GERD (gastroesophageal reflux K21.9 Active disease) [...] Adult general medical exam Z00.00 A ctive Assessment Leukemia in remission C95.91 Active Problem Rectal bleeding K62.5 Active Assessment Depression with anxiety F41.8 Acti ve Problem Depression with anxiety F41.8 Acti ve Assessment Seizure disorder G40.909 Active Problem Tinnitus H93.19 Active Assessment History of colonic polyps Z86.010 Ac tive Problem Incontinence R32 Active Problem Stress incontinence N39.3 Active Assessment Therapeutic drug monitoring Z51.81 Active Problem Right anterior knee pain M25.561 Act ingris Problem Hiatal hernia K44.9 Active Problem 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 A ctive Medications Medication Code Code Instructions Start End Status Dosage System Date Date Trokendi XR [facility] 99613906974 100mg By Mouth Active n ot defined Vyvanse [facility] 02608109040 20 MG Orally May 28, Active 1 capsu le 2019 in am and 1 cap at noon Flonase [facility] 18948633707 50 MCG/ACT Active 1 spray i n Nasally Once a each day nostril Trileptal [facility] 88302486051 300 MG Orally Active 1 ta blet Twice a day Amphetamine-De [facility] 91238124507 20 MG Orally Nov 30, Active 1 capsule xtroamphet ER Once a day 2018 in the morning Loestrin [facility] 16773910105 1.5-30 MG-MCG Active 1 tab let 1.5/30 (21) Orally Once a day ProAir [facility] 85297468456 108 (90 Base) Active 2 puff s as RespiClick MCG/ACT needed Inhalation every 6 hrs Xanax [facility] 89211409781 0.5 MG Orally Active 1 tabl et once a day prn anxiety Singulair [facility] 66190800663 10 MG Orally Active 1 tab let Once a day in the evening Results No Known Results Summary Purpose eClinicalWorks Submission
[2019-09-07 13:48] LABS: Absolute Lymphocytes (CBC) 2.4 K/uL (0.7-4.9); Basophils % 0.4 % (0-1.3); Hematocrit 40.7 % (36.0-45.0); Lymphocytes % 23.1 % (15.3-44.8); MPV 10.6 fL (7.6-11.3)
[2019-09-07 13:55] LABS: Protime INR 0.91
[2019-09-07] MEDS ORDERED: LIDOCAINE 1% MPF 5 ML VIAL ONE (14:03)
[2019-09-07] MEDS ORDERED: propofoL 200 MG/20 ML VIAL IV ONE (14:03)
[2019-09-07 14:18] LABS: ALT/SGPT 22 U/L (12-78); AST/SGOT 11 U/L (15-37); Albumin 3.9 g/dL (3.4-5.0); Alkaline Phosphatase 57 U/L (45-117); BUN Blood Urea Nitrogen 16 mg/dL (7-18); Bicarbonate 27 mmol/L (21-32); Bilirubin Direct 0.1 mg/dL (0-0.2); Bilirubin Total 0.3 mg/dL (0.2-1.0); Glucose Level 103 mg/dL (74-106); Magnesium 2.3 mg/dL (1.8-2.4); NT PRO-BNP 26 pg/mL (<125); Potassium 3.9 mmol/L (3.5-5.1); Protein, Total 7.5 g/dL (6.4-8.2); Sodium Level 141 mmol/L (136-145); Troponin (Emerg Dept Use Only) < 0.02 ng/mL (0.0-0.045)
--- NOTE | 2019-09-07 14:28 | RAD REPORT ---
EXAM DESCRIPTION: RAD - Chest Single View - 09/07/2019 2:13 pm CLINICAL HISTORY: CHEST PAIN Chest pain. COMPARISON: Chest Pa And Lat (2 Views) dated 06/13/2019; Chest Pa And Lat (2 Views) dated 02/04/2019; Chest Single View dated 12/05/2017; Chest Pa And Lat (2 Views) dated 10/23/2016 FINDINGS: Portable technique limits examination quality. The lungs are grossly clear. The heart is normal in size. No displaced fractures. IMPRESSION: No acute intrathoracic process suspected.
--- NOTE | 2019-09-07 14:33 | RAD REPORT ---
EXAM DESCRIPTION: CT - Head Brain Wo Cont - 09/07/2019 2:26 pm CLINICAL HISTORY: HEADACHE Headache, drowsiness COMPARISON: Head Brain Wo Cont dated 09/26/2018; HEAD BRAIN W O CONTRAST dated 10/20/2013 TECHNIQUE: All CT scans are performed using dose optimization technique as appropriate and may inclu de automated exposure control or mA/KV adjustment according to patient size. FINDINGS: No intracranial hemorrhage, hydrocephalus or extra-axial fluid collection.No areas of brai n edema or evidence of midline shift. The paranasal sinuses and mastoids are clear. The calvarium is intact. IMPRESSION: No acute intracranial abnormality.
[2019-09-07] MEDS ORDERED: NA CHLORIDE 0.9% 500 ML ONE (14:37)
--- NOTE | 2019-09-07 16:41 | EDPHYS ---
Physician Documentation [facility] Name: Snow Argueta Age: 33 yrs Sex: Female : 1985 Arrival Date: 09/07/2019 Time: 12:35 Bed 13 Private MD: Soco Savage ED Physician Zach Shahid HPI: 09/07 07:37 This 33 yrs old Female presents to ER via Wheelchair with complaints of High kdr Blood Pressure, Chest Tightness. 07:37 The patient has had multiple vague symptoms since Friday including chest pain, kdr occiptal CROFT and rigors. She denies fever or productive cough. She took her BP this morning with a wrist band and it indicated that her BP was significantly elevated. (257 SBP). At triage, her BP is normal. Onset: The symptoms/episode began/occurred gradually, Friday. Severity of symptoms: At their worst the symptoms were very mild mild just prior to arrival, in the emergency department the symptoms are unchanged. Not specifically this constellation - states she feels somewhat panicky. The patient has not recently seen a physician. Historical: - Allergies: 09/06 12:46 Cephalexin; ph 12:46 Gadavist; ph 12:46 Latex, Natural Rubber; ph 12:46 Zofran; ph - Home Meds: 12:46 Trokendi XR Oral [Active]; Trileptal Oral [Active]; ph - PMHx: 12:46 ADD/ADHD; Endometrosis; epilepsy; GERD; Leukemia; ph - PSHx: 12:46 Appendectomy; Cholecystectomy; Tubal ligation; D \T\ C; ph - Immunization history:: Adult Immunizations unknown. - Social history:: Smoking status: Patient denies any tobacco usage or history of. ROS: 09/07 07:37 Constitutional: Negative for fever, chills, and weight loss, Eyes: Negative for injury, kdr pain, redness, and discharge, ENT: Negative for injury, pain, and discharge, Neck: Negative for injury, pain, and swelling, Respiratory: Negative for shortness of breath, cough, wheezing, and pleuritic chest pain, Abdomen/GI: Negative for abdominal pain, nausea, vomiting, diarrhea, and constipation, Back: Negative for injury and pain, : Negative for injury, bleeding, discharge, and swelling, MS/Extremity: Negative for injury and deformity, Skin: Negative for injury, rash, and discoloration, Psych: Negative for depression, anxiety, suicide ideation, homicidal ideation, and hallucinations, Allergy/Immunology: Negative for hives, rash, and allergies, Endocrine: Negative for neck swelling, polydipsia, polyuria, polyphagia, and marked weight changes, Hematologic/Lymphatic: Negative for swollen nodes, abnormal bleeding, and unusual bruising. Cardiovascular: Positive for chest pain, Negative for edema, orthopnea, palpitations, paroxysmal nocturnal dyspnea, acute changes. Neuro: Positive for headache, minor vision changes which were not present at the time of exam. Exam: 07:37 Constitutional: This is a well developed, well nourished patient who is awake, alert, kdr and in no acute distress. Head/Face: Normocephalic, atraumatic. Eyes: Pupils equal round and reactive to light, extra-ocular motions intact. Lids and lashes normal. Conjunctiva and sclera are non-icteric and not injected. Cornea within normal limits. Periorbital areas with no swelling, redness, or edema. Neck: Trachea midline, no thyromegaly or masses palpated, and no cervical lymphadenopathy. Supple, full range of motion without nuchal rigidity, or vertebral point tenderness. No Meningismus. Chest/axilla: Normal chest wall appearance and motion. Nontender with no deformity. No lesions are appreciated. Cardiovascular: Regular rate and rhythm with a normal S1 and S2. No gallops, murmurs, or rubs. Normal PMI, no JVD. No pulse deficits. Respiratory: Lungs have equal breath sounds bilaterally, clear to auscultation and percussion. No rales, rhonchi or wheezes noted. No increased work of breathing, no retractions or nasal flaring. Abdomen/GI: Soft, non-tender, with normal bowel sounds. No distension or tympany. No guarding or rebound. No evidence of tenderness throughout. Back: No spinal tenderness. No costovertebral tenderness. Full range of motion. Skin: Warm, dry with normal turgor. Normal color with no rashes, no lesions, and no evidence of cellulitis. MS/ Extremity: Pulses equal, no cyanosis. Neurovascular intact. Full, normal range of motion. Neuro: Awake and alert, GCS 15, oriented to person, place, time, and situation. Cranial nerves II-XII grossly intact. Motor strength 5/5 in all extremities. Sensory grossly intact. Cerebellar exam normal. Normal gait. Psych: Awake, alert, with orientation to person, place and time. Behavior, mood, and affect are within normal limits. Vital Signs: 09/06 12:41 BP 143 / 83; Pulse 103; Resp 18; Temp 97.8; Pulse Ox 100% on R/A; Weight 88.45 kg; ph Height 5 ft. 6 in. (167.64 cm); 13:53 BP 120 / 76; Pulse 92; Resp 16; Pulse Ox 99% ; ah 14:30 BP 115 / 76; Pulse 92; Resp 18; Pulse Ox 99% ; ah 15:50 BP 125 / 80 LA Supine; ah 15:50 BP 125 / 83 LA Sitting; ah 15:57 BP 130 / 85 LA Standing; ah 12:41 Body Mass Index 31.47 (88.45 kg, 167.64 cm) ph MDM: 16:41 Patient medically screened. kdr 09/07 07:37 Data reviewed: vital signs, nurses notes, lab test result(s), radiologic studies, CT kdr scan. Counseling: I had a detailed discussion with the patient and/or guardian regarding: the historical points, exam findings, and any diagnostic results supporting the discharge/admit diagnosis, lab results, radiology results, the need for outpatient follow up. Special discussion: Based on the patient's history, exam, and Dx evaluation, there is no indication for emergent intervention or inpatient Tx. It is understood by the patient/guardian that if the Sx's persist or worsen they need to return immediately for re-evaluation. I have referred the patient to see his PCP for further evaluation of high blood pressure. I discussed with the patient/guardian in detail that at this point there is no indication for admission to the hospital. It is understood, however, that if the symptoms persist or worsen the patient needs to return immediately for re-evaluation. 09/06 13:10 Order name: Basic Metabolic Panel; Complete Time: 15: kdr 09/06 13:10 Order name: CBC with Diff; Complete Time: : kdr 09/06 13:10 Order name: LFT's; Complete Time: 15: kdr 09/06 13:10 Order name: Magnesium; Complete Time: 15: [facility] 09/06 13:10 Order name: NT PRO-BNP; Complete Time: 15: [facility] 09/06 13:10 Order name: PT-INR; Complete Time: 15: [facility] 09/06 13:10 Order name: Troponin (emerg Dept Use Only); Complete Time: 15: [facility] 09/06 13:10 Order name: XRAY Chest (1 view); Complete Time: 15: [facility] 09/06 13:10 Order name: EKG; Complete Time: 13: [facility] 09/06 13:10 Order name: Cardiac monitoring; Complete Time: 59 [facility] 09/06 13:10 Order name: EKG - Nurse/Tech; Complete Time: 15:58 [facility] 09/06 14:15 Order name: CT Head Brain wo Cont; Complete Time: : [facility] 09/06 13:10 Order name: IV Saline Lock; Complete Time: 59 [facility] 09/06 13:10 Order name: Labs collected and sent; Complete Time: [facility] 09/06 13:10 Order name: O2 Per Protocol; Complete Time: [facility] 09/06 13:10 Order name: O2 Sat Monitoring; Complete Time: [facility] 09/06 14:15 Order name: Orthostatic Blood Pressure; Complete Time: 15:58 [facility] Administered Medications: 09/06 14:25 Drug: NS 0.9% 500 ml Route: IV; Rate: bolus; Site: right antecubital; tw2 17:14 Drug: traMADol 50 mg Route: PO; 22:33 Follow up: Response: Medication administered at discharge. Disposition: 09/07/19 16:41 Discharged to Home. Impression: Chest pain, unspecified, Headache. - Condition is Stable. - Discharge Instructions: General Headache Without Cause, Nonspecific Chest Pain, [id number]. - Medication Reconciliation Form, Thank You Letter form. - Follow up: Soco Savage MD; When: 2 - 3 days; Reason: If symptoms return, Further diagnostic work-up, Recheck today's complaints, Continuance of care, Re-evaluation by your physician. - Problem is new. - Symptoms have improved. Signatures: Dispatcher [employer] EDOR Zach Shahid MD MD [facility] Sierra Hernandez RN RN Ericka Gates RN RN [facility] Kailee Bowie RN RN Corrections: (The following items were deleted from the chart) 17:41 16:41 09/07/2019 16:41 Discharged to Home. Impression: Chest pain, unspecified; ph Headache. Condition is Stable. Forms are Medication Reconciliation Form, Thank You Letter, Antibiotic Education, Prescription Opioid Use. Follow up: Soco Savage; When: 2 - 3 days; Reason: If symptoms return, Further diagnostic work-up, Recheck today's complaints, Continuance of care, Re-evaluation by your physician. Problem is new. Symptoms have improved. kdr
--- NOTE | 2019-09-07 16:41 | ER ---
Nurse's Notes [facility] Name: Snow Argueta Age: 33 yrs Sex: Female : 1985 Arrival Date: 09/07/2019 Time: 12:35 Bed 13 Private MD: Soco Savage Diagnosis: Chest pain, unspecified;Headache Presentation: 09/06 12:41 Chief complaint: Patient states: Pressure ion back of head that started Friday ph thought it was a migraine, worse today so checked BP, was 245/157, called PCP who told pt to come to ED to be evaluated , c/o headache, visual disturbance, and R sided chest pressure , denies fever, cough, SOB, BP in triage normal. Coronavirus screen: Patient denies a cough. Patient denies shortness of breath or difficulty breathing. Patient denies measured and/or subjective temperature greater than 100.4F prior to today's visit. Patient denies travel on a cruise ship or to a country the [facility] currently lists as an affected area. Patient denies contact with known and/or suspected case of COVID-19. Ebola Screen: No symptoms or risks identified at this time. Initial Sepsis Screen: Does the patient meet any 2 criteria? No. Patient's initial sepsis screen is negative. Does the patient have a suspected source of infection? No. Patient's initial sepsis screen is negative. Risk Assessment: Do you want to hurt yourself or someone else? Patient reports no desire to harm self or others. Onset of symptoms was September 07, 2019. 12:41 Method Of Arrival: Wheelchair ph 12:41 Acuity: LEONEL 3 ph Historical: - Allergies: 12:46 Cephalexin; ph 12:46 Gadavist; ph 12:46 Latex, Natural Rubber; ph 12:46 Zofran; ph - Home Meds: 12:46 Trokendi XR Oral [Active]; Trileptal Oral [Active]; ph - PMHx: 12:46 ADD/ADHD; Endometrosis; epilepsy; GERD; Leukemia; ph - PSHx: 12:46 Appendectomy; Cholecystectomy; Tubal ligation; D \T\ C; ph - Immunization history:: Adult Immunizations unknown. - Social history:: Smoking status: Patient denies any tobacco usage or history of. Screenin:00 Abuse screen: Denies threats or abuse. Nutritional screening: No deficits noted. Tuberculosis screening: No symptoms or risk factors identified. Fall Risk None identified. Assessment: 12:58 General: Appears in no apparent distress. Behavior is calm, cooperative. Pain: Denies pain. Neuro: Level of Consciousness is awake, alert, Oriented to person, place, time, situation, Nursing Teacher are equal bilaterally. Cardiovascular: Reports chest tightness Denies chest pain, Heart tones S1 S2 present Capillary refill < 3 seconds Patient's skin is warm and dry. Respiratory: Airway is patent Respiratory effort is even, unlabored, Respiratory pattern is regular, symmetrical. GI: No signs and/or symptoms were reported involving the gastrointestinal system. : No signs and/or symptoms were reported regarding the genitourinary system. EENT: No signs and/or symptoms were reported regarding the EENT system. Derm: No signs and/or symptoms reported regarding the dermatologic system. Musculoskeletal: No signs and/or symptoms reported regarding the musculoskeletal system. 14:26 Reassessment: Pt to radiology for CT scan. 15:45 Reassessment: Orthostatics completed at this time. Pt states that he dizziness is ah better but she still has a headache. No other needs voiced at this time. 17:10 Reassessment: Discharge instructions given and voiced understanding. Vital Signs: 12:41 BP 143 / 83; Pulse 103; Resp 18; Temp 97.8; Pulse Ox 100% on R/A; Weight 88.45 kg; ph Height 5 ft. 6 in. (167.64 cm); 13:53 BP 120 / 76; Pulse 92; Resp 16; Pulse Ox 99% ; ah 14:30 BP 115 / 76; Pulse 92; Resp 18; Pulse Ox 99% ; ah 15:50 BP 125 / 80 LA Supine; ah 15:50 BP 125 / 83 LA Sitting; ah 15:57 BP 130 / 85 LA Standing; ah 12:41 Body Mass Index 31.47 (88.45 kg, 167.64 cm) ED Course: 12:35 Patient arrived in ED. mr 12:36 Zach Shahid MD is Attending Physician. kdr 12:37 Soco Savage MD is Private Physician. mr 12:45 Triage completed. ph 12:46 Arm band placed on Patient placed in an exam room, on a stretcher. ph 12:48 Kailee Bowie, RN is Primary Nurse. 13:01 Patient has correct armband on for positive identification. Bed in low position. Call light in reach. Side rails up X 1. Pulse ox on. NIBP on. 13:38 Initial lab(s) drawn, by nm, sent to lab. X-ray(s) taken. Inserted saline lock: 20 jp3 gauge in right antecubital area, using aseptic technique. Blood collected. 13:56 Placed in gown. Warm blanket given. Verbal reassurance given. jp3 13:56 Patient maintains SpO2 saturation greater than 95% on room air. jp3 14:01 stock order lister on. jp3 14:14 XRAY Chest (1 view) In Process Unspecified. EDMS 14:26 CT Head Brain wo Cont In Process Unspecified. EDKS 16:40 Soco Savage MD is Referral Physician. [facility] 17:15 No provider procedures requiring assistance completed. IV discontinued, intact, bleeding controlled, No redness/swelling at site. Pressure dressing applied. Administered Medications: 14:25 Drug: NS 0.9% 500 ml Route: IV; Rate: bolus; Site: right antecubital; tw2 17:14 Drug: traMADol 50 mg Route: PO; 22:33 Follow up: Response: Medication administered at discharge. Outcome: 16:41 Discharge ordered by . [facility] 17:14 Discharged to home ambulatory. 17:14 Condition: good 17:14 Discharge instructions given to patient, Instructed on discharge instructions, follow up and referral plans. Demonstrated understanding of instructions, follow-up care. 17:41 Patient left the ED. ph Signatures: Dispatcher [employer] EDKS Zach Shahid MD MD kdr Rivera, Mary mr Sierra Hernandez RN RN Ericka Gates RN RN 2 Jair Pate jp3 Kailee Bowie, RN RN
[2019-09-07] MEDS ORDERED: TRAMADOL HCL 50 MG TAB ONE (17:14)
[2019-09-07 18:04] VITALS: TEMP 98
[2019-09-07 18:05] VITALS: O2SAT 100
[2019-09-07 18:07] VITALS: BP 190/77
--- NOTE | 2019-09-07 18:56 | EKG ---
Test Date: 2019-09-07 Test Time: 14:48:56 [employer] Teacher: TONY MEASUREMENT RESULTS: Intervals: Rate: 84 DE: 152 QRSD: 82 QT: 360 QTc: 425 [place]: P: 58 DE: 152 QRS: 62 T: 49 INTERPRETIVE STATEMENTS: Normal sinus rhythm Normal ECG Compared to ECG 06/13/2019 12:53:04 Sinus tachycardia no longer present Electronically Signed On 09-07-19 18:56:06 CDT by Bryant Dickerson
== END 2019-09-07 17:41 | disposition home or self-care (01) ==
LOC: ER 12:34
DX: R51 Headache (principal); G40.909 Epilepsy, unspecified, not intractable, without status epilepticus; F90.9 Attention-deficit hyperactivity disorder, unspecified type; Z88.1 Allergy status to other antibiotic agents; Z88.8 Allergy status to other drugs, medicaments and biological substances; Z91.040 Latex allergy status
CPT/HCPCS: 93005; 85025; 80048; 36415; 83735; 85610; 80076; 84484; 83880; 70450; 71045; 99285; J7040; J2704

== ENCOUNTER 2020-02-09 11:16 | Emergency (ER) | payer BC ==
--- OUTSIDE RECORDS SUMMARY | 2020-02-09 11:25 | XMS REPORT | Clinical Summary ---
:1985 Author Organization [facility] Address [address] [place] [address] Care Team Providers Name Role Phone Asked, No Pcp Primary Care Provider Unavailable Allergies Active Allergy Reactions Severity Noted Date Comments Cephalexin Hives High 02/04/2020 Gadobutrol Other (See Comments) High 02/03/2020 Vomitin g 02/03/20 8:30pm - Per patient denied shortnes s of breath, hives, itchines s. Only nauseous/vomiti ng as a side effect after ad ministration of Gadavist. Latex Hives High 02/04/2020 Ondansetron Hcl Headache High 02/04/2020 Medications Medication Sig Dispensed Refills Start End Status Date Date lisdexamfetamine Take 40 mg by 0 Active (VYVANSE) 40 MG mouth daily. capsule (per patient, stopped taking it last week - unknown reason); (per [place] Prescription Drug Monitoring Program, last filled 12/18/19, quantity: 30, day supply: 30) metoclopramide Take 1 tablet (5 15 tablet 0 Active (Reglan) 5 MG tablet mg total) by 0 020 mouth 3 (three) times a day as needed (nausea, vomiting) for up to 5 days. topiramate (Trokendi Take 1 capsule 0 10/2 0/2 Discontinued XR) 100 mg by mouth daily. 020 (St op Taking at capsule,extended (Patient stopped Discharge) release 24hr taking this medication in the summer because she ran out of it) OXCARBAZEPINE ORAL (Patient stopped 0 2 0/2 Discontinued taking this 020 (Stop Ta neena at medication in Discha rge) the summer because she ran out of it) atropine 1 % Administer 1 0 Disc ontinued ophthalmic solution drop to the 020 (Stop Taking at right eye 2 Discharg e) (two) times a day. (start date: ~3 weeks ago - per patient) Active Problems Problem Noted Date Optic neuritis 02/03/2020 Encounters Date Type Specialty Care Team Description 02/07/2020 Telephone Ophthalmology Gabby García MA 02/03/2020 - Hospital Encounter Neurology Filippochris Kim Optic neuritis (Primary Dx); 02/08/2020 MD Janice Acute intractable headache, unspecified headache type; Aldo Pineda Intractabl e headache, unspecified chronicity pattern, unspecified headache type; Leukocytosis, unspecified type; Maisha Maddox Blurry vision; MD Jamarcus Paresthesia; Weakness 02/03/2020 Telephone Ophthalmology Gabby García MA after 02/08/2019 Immunizations Name Administration Dates Next Due FLUCELVAX QUAD PF 02/06/2020 Surgical History Surgery Date Site/Laterality Comments TUBAL LIGATION Medical History Medical History Date Comments Cancer (HCC) 2013 Epilepsy (HCC) 2019 Optic neuritis Social History Tobacco Use Types Packs/Day Years Used Date Never Smoker Smokeless Tobacco: Never Used Alcohol Use Drinks/Week oz/Week Comments Yes occ drinker Sex Assigned at Date Recorded Not on file Last Filed Vital Signs Vital Sign Reading Time Taken Comments Blood Pressure 130/61 02/08/2020 3:49 PM CDT Pulse 77 02/08/2020 3:49 PM CDT Temperature 36.7 C (98.1 F) 02/08/2020 3:49 PM CDT Respiratory Rate 17 02/08/2020 3:49 PM CDT Oxygen Saturation 95% 02/08/2020 3:49 PM CDT Inhaled Oxygen Concentration - - Weight 99.8 kg (220 lb 1.6 oz) 02/08/2020 4:47 AM CDT Height 167.6 cm (5' 6") 02/04/2020 1:01 AM CDT Body Mass Index 35.53 02/04/2020 1:01 AM CDT Plan of Treatment Health Maintenance Due Date Last Done Comments CERVICAL CANCER SCREENING 02/02/2023 02/03/2020 INFLUENZA VACCINE Completed 02/06/2020, Procedures Procedure Name Priority Date/Time Associated Comments Diagnosis VENIPUNC NEED PHYS Routine 02/08/2020 10:39 Resul ts for this SKILL,DX OR RX AM CDT procedure are in the results section. US DUPLEX VENOUS UPPER STAT 02/07/2020 5:26 R esults for this EXTREMITY RIGHT PM CDT procedure ar e in the results section. VENIPUNC NEED PHYS Routine 02/07/2020 9:18 Resul ts for this SKILL,DX OR RX AM CDT procedure are in the results section. ESTIMATED GFR Routine 02/07/2020 5:00 Results fo r this AM CDT procedure are i n the results section. BASIC METABOLIC PANEL Routine 02/07/2020 5:00 Re sults for this AM CDT procedure are i n the results section. HC COMPLETE BLD COUNT Routine 02/07/2020 5:00 Re sults for this W/AUTO DIFF AM CDT procedure are i n the results section. ESTIMATED GFR Routine 02/06/2020 6:18 Results fo r this AM CDT procedure are i n the results section. BASIC METABOLIC PANEL Routine 02/06/2020 6:18 Re sults for this AM CDT procedure are i n the results section. HC COMPLETE BLD COUNT Routine 02/06/2020 6:18 Re sults for this W/AUTO DIFF AM CDT procedure are i n the results section. XR CHEST 1 VW PORTABLE Routine 02/05/2020 9:27 R esults for this PM CDT procedure are i n the results section. ECG 12-LEAD Routine 02/05/2020 9:12 Results for this PM CDT procedure are i n the results section. HC COMPLETE BLD COUNT Routine 02/05/2020 6:00 Re sults for this W/AUTO DIFF AM CDT procedure are i n the results section. ESTIMATED GFR Routine 02/05/2020 4:00 Results fo r this AM CDT procedure are i n the results section. BASIC METABOLIC PANEL Routine 02/05/2020 4:00 Re sults for this AM CDT procedure are i n the results section. IGG SYNTHESIS RATE Routine 02/04/2020 11:00 Resul ts for this STUDY AM CDT procedure are i n the results section. IR LUMBAR PUNCTURE STAT 02/04/2020 10:00 Resul ts for this AM CDT procedure are i n the results section. MISCELLANEOUS REFERRAL Routine 02/04/2020 9:56 R esults for this TEST AM CDT procedure are i n the results section. OLIGOCLONAL BANDING, Routine 02/04/2020 9:56 Res ults for this CSF AM CDT procedure are i n the results section. FLOW CYTOMETRY Routine 02/04/2020 9:56 Results f or this EVALUATION AM CDT procedure are i n the results section. VARICELLA ZOSTER BY Routine 02/04/2020 9:56 Resu lts for this PCR AM CDT procedure are i n the results section. HERPES SIMPLEX VIRUS Routine 02/04/2020 9:56 Res ults for this BY PCR AM CDT procedure are i n the results section. ENTEROVIRUS BY PCR Routine 02/04/2020 9:56 Resul ts for this AM CDT procedure are i n the results section. ALBERT NOBLE VIRUS Routine 02/04/2020 9:56 Resul ts for this (EBV) BY PCR AM CDT procedure are i n the results section. LYME DISEASE REFLEXIVE Routine 02/04/2020 9:56 R esults for this PANEL, CSF AM CDT procedure are i n the results section. VDRL, CSF SCREEN Routine 02/04/2020 9:56 Results for this AM CDT procedure are i n the results section. IGG SYNTHESIS RATE Routine 02/04/2020 9:56 Resul ts for this STUDY AM CDT procedure are i n the results section. GLUCOSE LEVEL, CSF Routine 02/04/2020 9:56 Resul ts for this AM CDT procedure are i n the results section. CSF CELL COUNT WITH Routine 02/04/2020 9:56 Resu lts for this DIFFERENTIAL AM CDT procedure are i n the results section. GRAM STAIN Routine 02/04/2020 9:56 Results for this AM CDT procedure are i n the results section. CRYPTOCOCCAL ANTIGEN Routine 02/04/2020 9:56 Res ults for this SCREEN AM CDT procedure are i n the results section. AFB CULTURE Routine 02/04/2020 9:56 AM CDT FUNGUS CULTURE Routine 02/04/2020 9:56 AM CDT CSF CULTURE Routine 02/04/2020 9:56 Results for this AM CDT procedure are i n the results section. EEG AWAKE/ASLEEP LESS Routine 02/04/2020 7:19 Re sults for this THAN 41 MIN AM CDT procedure are i n the results section. ECG 12-LEAD STAT 02/04/2020 4:50 Results for this AM CDT procedure are i n the results section. BLOOD CULTURE, AEROBIC Routine 02/04/2020 1:50 R esults for this & ANAEROBIC AM CDT procedure are i n the results section. ESTIMATED GFR Routine 02/04/2020 1:40 Results fo r this AM CDT procedure are i n the results section. BASIC METABOLIC PANEL Routine 02/04/2020 1:40 Re sults for this AM CDT procedure are i n the results section. HC COMPLETE BLD COUNT Routine 02/04/2020 1:40 Re sults for this W/AUTO DIFF AM CDT procedure are i n the results section. BLOOD CULTURE, AEROBIC Routine 02/04/2020 1:40 R esults for this & ANAEROBIC AM CDT procedure are i n the results section. URINE DRUGS OF ABUSE STAT 02/04/2020 12:56 Res ults for this SCREEN AM CDT procedure are i n the results section. URINALYSIS SCREEN AND Routine 02/04/2020 12:56 Re sults for this MICROSCOPY, WITH AM CDT procedure a re in REFLEX TO CULTURE the result s section. URINE CULTURE Routine 02/04/2020 12:56 Results fo r this AM CDT procedure are i n the results section. COVID-19 QUALITATIVE STAT 02/03/2020 11:41 Res ults for this PCR PM CDT procedure are i n the results section. MRI THORACIC SPINE W STAT 02/03/2020 10:12 Res ults for this CONTRAST PM CDT procedure are i n the results section. MRI CERVICAL SPINE W STAT 02/03/2020 10:12 Res ults for this CONTRAST PM CDT procedure are i n the results section. MRI BRAIN & ORBIT W WO STAT 02/03/2020 10:12 R esults for this CONTRAST PM CDT procedure are i n the results section. CYTOLOGY Routine 02/03/2020 8:17 Results for this (NON-GYNECOLOGICAL) PM CDT procedur e are in REQUEST the results section. ESTIMATED GFR STAT 02/03/2020 6:35 Results fo r this PM CDT procedure are i n the results section. COMPREHENSIVE STAT 02/03/2020 6:35 Results fo r this METABOLIC PANEL PM CDT procedure ar e in the results section. B. BURGDORFERI ABS STAT 02/03/2020 6:25 Resul ts for this TOTAL, SERUM PM CDT procedure are i n the results section. VITAMIN D 25 HYDROXY STAT 02/03/2020 6:25 Res ults for this LEVEL PM CDT procedure are i n the results section. HIV AG/AB COMBINATION STAT 02/03/2020 6:25 Re sults for this PM CDT procedure are i n the results section. SYPHILIS TOTAL STAT 02/03/2020 6:25 Results f or this ANTIBODY PM CDT procedure are i n the results section. T3 STAT 02/03/2020 6:25 Results for this PM CDT procedure are i n the results section. T4, FREE STAT 02/03/2020 6:25 Results for this PM CDT procedure are i n the results section. THYROID STIMULATING STAT 02/03/2020 6:25 Resu lts for this HORMONE PM CDT procedure are i n the results section. RHEUMATOID FACTOR STAT 02/03/2020 6:25 Result s for this PM CDT procedure are i n the results section. SEDIMENTATION RATE STAT 02/03/2020 6:25 Resul ts for this PM CDT procedure are i n the results section. CORTISOL LEVEL, RANDOM STAT 02/03/2020 6:25 R esults for this PM CDT procedure are i n the results section. HOMOCYSTINE, PLASMA STAT 02/03/2020 6:25 Resu lts for this PM CDT procedure are i n the results section. C-REACTIVE PROTEIN STAT 02/03/2020 6:25 Resul ts for this PM CDT procedure are i n the results section. VITAMIN B12 LEVEL STAT 02/03/2020 6:25 Result s for this PM CDT procedure are i n the results section. FOLATE LEVEL STAT 02/03/2020 6:25 Results for this PM CDT procedure are i n the results section. ELMER STAT 02/03/2020 6:25 Results for this PM CDT procedure are i n the results section. HC COMPLETE BLD COUNT STAT 02/03/2020 6:25 Re sults for this W/AUTO DIFF PM CDT procedure are i n the results section. CT HEAD WO CONTRAST STAT 02/03/2020 4:14 Resu lts for this PM CDT procedure are i n the results section. HCG QUANTITATIVE, STAT 02/03/2020 2:27 Result s for this SERUM PM CDT procedure are i n the results section. after 02/08/2019 Results VENIPUNC NEED PHYS SKILL,DX OR RX (02/08/2020 10:39 AM CDT) Narrative Performed At Familia Colon RN 02/08/2020 10:40 A M Midline Date/Time: 02/08/2020 10:39 AM Performed by: Familia Colon RN Authorized by: Maisha Maddox MD Consent: Consent obtained: Verbal Consent given by: Patient Risks discussed: Arterial puncture, incorrect shiva cement, nerve damage, infection, bleeding, superficial thrombu s and deep vein thrombus Alternatives discussed: Delayed addie atment and alternative treatment Sanger protocol: Procedure explained and questions ans wered to patient or proxy's satisfaction: yes Relevant documents present and verifi ed: yes Test results available and properly l abeled: yes Imaging studies available: yes Required blood products, implants, de vices, and special equipment available: yes Site/side marked: yes Immediately prior to procedure, a rhonda e out was called: yes Patient identity confirmed: Verbally with patient , hospital-assigned identification number and arm band Pre-procedure details: Hand hygiene: Hand hygiene performed prior to insertion Sterile barrier technique: All elemen ts of maximal sterile technique followed Skin preparation: ChloraPrep Skin preparation agent: Dried prior t o procedure Anesthesia (see MAR for exact dosages): Anesthesia method: Local infiltrati on Local anesthetic: Lidocaine 1% w/o epi Route administered: Subcutaneous MidLine Placement Details (Will create a n LDA): Patient position: Flat Vessel Size (mm): 5 Indication: Known fci IV ther apy Location: Left basilic Device Type: Non-valved Catheter Lumen(s): Single lumen Catheter size: 3 Fr Catheter to vein ratio: 24% MidLine Characteristics: Catheter Brand: SL PROVENA MIDLINE Internal Catheter Length (cm): 12 Total Catheter Length (cm): 12 Catheter Lot Number: [id number] Catheter Expiration Date: 05/21/2021 Procedure details: Landmarks identified: yes Ultrasound guidance: yes Sterile ultrasound techniques: Sterile gel and ster ile probe covers were used Number of attempts: 1 Number of MidLine kits used during pr ocedure: 2 Extra guide wire required?: Yes Purpose of procedure: Midline Place ment Patency/Placement: Flushes without difficulty, flushed with 10 mL normal saline, positive blood return, injection cap pl aced and ultrasound MidLine placed utilizing ultrasound-guided Modified Seldinger Technique: Yes Dressing/Securement: Antimicrobial dressing dry and intact, antimicrobial dressing applied and chato ter securement device Blood Loss Amount: Less than 20 mL Post-procedure details: Post-procedure: Dressing applied Patient tolerance of procedure: Massimo erated well, no immediate complications Us duplex venous upper extremity (02/07/2020 5:26 PM CDT) Specimen Narrative Performed At [facility] Vascular U ltrasound Laboratory Upper Extr emity Venous Report [id number] [facility], [address], [place] [address] Pat.Name: SAPNA ARGUETA.ID: [id number] .Date: 02/07/2020 Refer.MD: MAISHA MADDOX MD Exam Time: 4:33:00 PM Study Type:U E Venous Height: 66in Weight: 220lb BSA: 2.08 m2 Ag e: 1985,34Y Sex: FEMALE Sonogrp hr: Davis Vi, RVT Pat. Stat.:Inpatient Room: [address] Tape Vol: HV, CPT - 4: 59802 Echo Event ID:[id number] Order ID: [id number] Reason for Study:Right arm pain and swel ling. S/P midline removal on 02/07/2020. Procedures: Colorflow, Grayscale/2D, Pul sed wave Doppler Race: D SUMMARY: DUPLEX SCAN OBSERVATIONS Right Left IJ Normal Subclavian Normal Normal Axillary Normal Brachial Normal Basilic Obstructed Cephalic(FA) Normal RIGHT: The upper arm basilic vein is non -compressible with mixed echogenic material within the lumen. Col orflow and Doppler signals are absent. All other remaining veins are pa tetnt. LEFT: There is normal compressibility an d no evidence of echogenic material noted within the lumen of the s ubclavian vein. Colorflow and Doppler signals are normal. PRELIMINARY FINDINGS 1. Obstructed superficial venous thrombo sis of right upper arm basilic vein. 2. No evidence of deep venous thrombosis of the visualized veins. Result given to EBONIE Husain at 17:30 PM on 02/07/2020. PHYSICIAN INTERPRETATION Venous examination of the right upper ex tremity and neck demonstrated no evidence of deep venous thrombosis. Obstructed superficial venous thrombosis of right upper arm basilic vein. FINDINGS: Signed 02/07/2020 10:03 PM Chaz Obrien MD, RPVI Procedure Note Interface, Radiology Results In - 2019 10:03 PM CDT Vascular Ultrasound Laboratory Upper Extremity Veno us Report [id number] [place] [address] Pat.Name: SAPNA ARGUETA Pat.I D: [id number] St.Date: 02/07/2020 Refer .MD: MAISHA MADDOX MD Exam Time: 4:33:00 PM Study Type:UE Venous Height: 66in Weigh t: 220lb BSA: 2.08 m2 Age: 8 1985,34Y Sex: FEMALE Sonog rphr: Ryan Torres RVT Pat. Stat.:Inpatient Room: [address] Tape Vol: , CPT - 4: 32288 Echo Event ID:[id number] Order ID: [id number] Reason for Study:Right arm pain and swel ling. S/P midline removal on 02/07/2020. Procedures: Colorflow, Grayscale/2D, Pul sed wave Doppler Race: D SUMMARY: DUPLEX SCAN OBSERVATIONS Right Left IJ Normal Subclavian Normal Normal Axillary Normal Brachial Normal Basilic Obstructed Cephalic(FA) Normal RIGHT: The upper arm basilic vein is non -compressible with mixed echogenic material within the lumen. Col orflow and Doppler signals are absent. All other remaining veins are pa tetnt. LEFT: There is normal compressibility an d no evidence of echogenic material noted within the lumen of the s ubclavian vein. Colorflow and Doppler signals are normal. PRELIMINARY FINDINGS 1. Obstructed superficial venous thrombo sis of right upper arm basilic vein. 2. No evidence of deep venous thrombosis of the visualized veins. Result given to EBONIE Husain at 17:30 PM on 02/07/2020. PHYSICIAN INTERPRETATION Venous examination of the right upper ex tremity and neck demonstrated no evidence of deep venous thrombosis. Obstructed superficial venous thrombosis of right upper arm basilic vein. FINDINGS: Signed 02/07/2020 10:03 PM Chaz Obrien MD, RPVI Performing Organization Address City/State/ZIP Code [facility] e Number [facility] [address] [place] [address] VENIPUNC NEED PHYS SKILL,DX OR RX (02/07/2020 9:18 AM CDT) Narrative Performed At Javier Kolb RN 02/07/20 9:21 AM Midline Date/Time: 02/07/2020 9:18 AM Performed by: Javier Kolb RN Authorized by: Maisha Maddox MD Consent: Consent obtained: Verbal Consent given by: Patient Risks discussed: Arterial puncture, incorrect shiva cement, nerve damage, bleeding, infection, pneumothorax, super ficial thrombus and deep vein thrombus Alternatives discussed: No treatment, delayed addie atment, alternative treatment, observation and referral [facility] protocol: Procedure explained and questions ans wered to patient or proxy's satisfaction: yes Relevant documents present and verifi ed: yes Test results available and properly l abeled: yes Imaging studies available: yes Required blood products, implants, de vices, and special equipment available: yes Site/side marked: yes Immediately prior to procedure, a rhonda poon out was called: yes Patient identity confirmed: Preston perez and hospital-assigned identification number Pre-procedure details: Hand hygiene: Hand hygiene performed prior to insertion Sterile barrier technique: All elemen ts of maximal sterile technique followed Skin preparation: ChloraPrep Skin preparation agent: Dried prior t o procedure Anesthesia (see MAR for exact dosages): Anesthesia method: Local infiltrati on Local anesthetic: Lidocaine 1% w/o epi Route administered: Subcutaneous MidLine Placement Details (Will create a n LDA): Patient position: Flat Vessel Size (mm): 4 Indication: Poor venous access Location: Right basilic Device Type: Non-valved Catheter Lumen(s): Double lumen Catheter size: 5 Fr Catheter to vein ratio: 41% MidLine Characteristics: Catheter Brand: ANGIODYNAMICS External Catheter Length (cm): 0 Internal Catheter Length (cm): 12 Total Catheter Length (cm): 12 Catheter Lot Number: [id number] Catheter Expiration Date: 01/18/2021 Procedure details: Landmarks identified: yes Ultrasound guidance: yes Sterile ultrasound techniques: Sterile gel and ster ile probe covers were used Number of attempts: 1 Number of MidLine kits used during pr ocedure: 1 Extra guide wire required?: No Purpose of procedure: Midline Place ment Patency/Placement: Flushes without difficulty, flushed with 10 mL normal saline, injection cap placed and positive blood return MidLine placed utilizing ultrasound-guided Modified Seldinger Technique: Yes Dressing/Securement: Dressing dry and intact, ant imicrobial dressing dry and intact, antimicrobial dressing a pplied and catheter securement device Blood Loss Amount: Less than 20 mL Post-procedure details: Post-procedure: Dressing applied Patient tolerance of procedure: Massimo erated well, no immediate complications Estimated GFR (02/07/2020 5:00 AM CDT)Only the most recent of5 resultswithin the time period is included. [facility] Estimated GFR >=90 mL/min/1.73 [facility] Comment: HOSPITAL Catergory Units Interpretation G1 >=90 Normal or high G2 60-89 Mildly decreased G3a 45-59 Mildly to moderately decreas ed G3b 30-44 Moderately to severely decre ased G4 15-29 Severely decreased G5 <15 Kidney failure The eGFR was calculated using the Chronic Kidney Disea se Epidemiology Collaboration (CKD-EPI) equation. Interpretation is based on recommendations of the National Kidney Foundation-Kidney Disease Outcomes Twan lity Initiative (NKF-KDOQI) published in 2014. Specimen Performing Organization Address City/State/ZIP Code Phon e Number [facility] DEPARTMENT OF PATHOLOGY AND [address] [place], [place] [address] GENOMIC MEDICINE [address] [address] CBC with platelet and differential (02/07/2020 5:00 AM CDT)Only the most recent of5 resultswithin the time period is included. Pathologist [facility] WBC 16.70 (H) 4.50 - 11.00 [facility] k/uL HOSPITAL RBC 4.30 4.20 - 5.50 [facility] m/uL HOSPITAL HGB 12.8 12.0 - 16.0 [facility] g/dL HOSPITAL HCT 38.2 37.0 - 47.0 % [facility] MCV 88.8 82.0 - 100.0 [facility] MCH 29.8 27.0 - 34.0 pg [facility] MCHC 33.5 31.0 - 37.0 [facility] g/dL [facility] RDW - SD 40.9 37.0 - 55.0 fL [facility] MPV 12.3 8.8 - 13.2 fL [facility] Platelet count 197 150 - 400 k/uL [facility] Nucleated RBC 0.00 /100 WBC [facility] Neutrophils 74.7 (H) 39.0 - 69.0 % [facility] Lymphocytes 15.6 (L) 25.0 - 45.0 % [facility] Monocytes 6.6 0.0 - 10.0 % [facility] Eosinophils 0.0 0.0 - 5.0 % [facility] Basophils 0.3 0.0 - 1.0 % [facility] Immature granulocytes 2.8 0.0 - 1.0 % [facility] (H)Comment: HOSPITAL "Immature granulocytes" (promyelocytes , myelocytes, metamyelocytes ) Specimen Blood Performing Organization Address City/State/ZIP Code Phon e Number [facility] DEPARTMENT OF PATHOLOGY AND [address] [place] [phone] GENOMIC MEDICINE [address] [address] Basic metabolic panel (02/07/2020 5:00 AM CDT)Only the most recent of4 results within the time period is included. Pathologist Sig nature Sodium 138 135 - 148 mEq/L [facility] L Potassium 3.9 3.5 - 5.0 mEq/L [facility] Chloride 101 98 - 112 mEq/L [facility] CO2 24 24 - 31 mEq/L [facility] Anion gap 13@ANIO 7 - 15 mEq/L [facility] BUN 18 6 - 20 mg/dL [facility] Creatinine 0.70 0.50 - 0.90 mg/dL [facility] AJ Glucose 103 (H) 65 - 99 mg/dL [facility] Calcium 8.4 8.3 - 10.2 mg/dL [facility] AL Specimen Blood Performing Organization Address City/[facility]/ZIP Code Phon e Number [facility] DEPARTMENT OF PATHOLOGY AND [address] [place], [place] [address] GENOMIC MEDICINE [facility] [address] [place] [address] XR Chest 1 Vw Portable (02/05/2020 9:27 PM CDT) Specimen Narrative Performed At EXAMINATION: XR CHEST 1 VW PORTABLE [facility] CLINICAL HISTORY: 34 years Female ches t pressure on exertion COMPARISON: None. IMPRESSION: No acute cardiopulmonary disease. FINDINGS: The cardiomediastinal silhouette, lungs, and regional skeletal structures are within normal limits for age. [id number] Procedure Note Hm Interface, Radiology Results Incoming - 02/05/2020 10:12 PM CDT EXAMINATION: XR CHEST 1 VW PORTABLE CLINICAL HISTORY: 34 years Female chest pressure on exertion COMPARISON: None. IMPRESSION: No acute cardiopulmonary disease. FINDINGS: The cardiomediastinal silhouette, lungs, and regional skeletal structures are within normal limits for age. [id number] Performing Organization Address [facility] Phon e Number [facility] [address] [place] [address] ECG 12 lead (02/05/2020 9:12 PM CDT)Only the most recent of2 resultswithin the time period is included. Pathologist Sig nature Ventricular rate 78 [facility] Atrial rate 78 [facility] MN interval 144 [facility] QRSD interval 84 [facility] QT interval 382 [facility] QTC interval 435 [facility] P axis 1 52 [facility] QRS axis 1 52 [facility] T wave axis 40 [facility] EKG impression Normal sinus [facility] MUSE rhythm-Normal ECG-In automated comparison with ECG of 04-FEB-2020 04:50,-No significant change was found- Specimen Narrative Performed At This result has an attachment that is no t available. Performing Organization Address [facility] Phon e Number [facility] MUSE [address] [place] [address] IgG synthesis rate study (02/04/2020 11:00 AM CDT)Only the most recent of2 resultswithin the time period is included. IgG albumin ratio, SEE 0.00 - 0.23 [facility] CSF COMMENTComment: HOSPITAL Footnote--------- IgG index, CSF SEE 0.01 - 0.63 [facility] COMMENTComment: HOSPITAL Footnote--------- IgG synthetic rate SEE -9.90 - 3.30 [facility] COMMENTComment: mg/day HOSPITAL Footnote--------- Q-albumin ratio, SEE 2.00 - 7.50 [facility] CSF COMMENTComment: HOSPITAL Footnote--------- IgG, CSF SEE 1.00 - 3.00 [facility] COMMENTComment: mg/dL HOSPITAL Footnote--------- Albumin, CSF SEE 10.00 - 30.00 [facility] COMMENTComment: mg/dL HOSPITAL Footnote--------- IgG SEE COMMENT 700 - 1600 [facility] Comment: mg/dL HOSPITAL Footnote--------- Corrected result; previously reported as 852 on 2019 at 12:58 by I/AUT Albumin, S SEE COMMENT 3640.0 - [facility] Comment: 5304.0 mg/dL [facility] Footnote--------- DUPLICATE ORDER. Corrected result; previously reported as 3700.0 on at 12:58 by I/AUT Specimen Serum Performing Organization Address City/State/ZIP Code Phon e Number [facility] DEPARTMENT OF PATHOLOGY AND [address] [place] [phone] GENOMIC MEDICINE [address] [address] IR Lumbar Puncture by Radiology (02/04/2020 10:00 AM CDT) Specimen Narrative Performed At EXAMINATION: IR LUMBAR PUNCTURE [facility] CLINICAL HISTORY: meningitis versus le ukemia versus demyelination COMPARISON: None. Findings: Informed consent was obtained. Lower back was prepped and draped in usual sterile fashion. 1% lidocaine was used for local anesthesia. A 22-gauge 5 inch needle was advanced into spinal rubén l at the L2-3 level under intermittent fluoroscopic gu idance. Opening pressure was 21 cm of water. 12 cc of clear CSF fluid was withdrawn. Patient compla ined of radiculopathy after 12 cc of fluid was w ithdrawn. No complications. Total fluoroscopic time was 0.2 minutes. Total air kerma was 5 mGy. IMPRESSION: Successful fluoroscopic guided lumbar pu ncture. Opening pressure was 21 cm of water. [facility]-[id number] Procedure Note Hm Interface, Radiology Results Incoming - 02/04/2020 10:26 AM CDT EXAMINATION: IR LUMBAR PUNCTURE CLINICAL HISTORY: meningitis versus deuce kemia versus demyelination COMPARISON: None. Findings: Informed consent was obtained. Lower allison k was prepped and draped in usual sterile fashion. 1% lidocaine was used for local anesthesia. A 22-gauge 5 inch needle was advanced in to spinal canal at the L2-3 level under intermittent fluoroscopic guidance. Opening pressure was 21 cm of water. 12 cc of clear CSF fluid was withdrawn. Patient complained of radiculopathy after 12 cc of fluid was withdrawn. No complications. Total fluoroscopic time was 0.2 minutes. Total air kerma was 5 mGy. IMPRESSION: Successful fluoroscopic guided lumbar pu ncture. Opening pressure was 21 cm of water. [facility]-[id number] Performing Organization Address City/[facility]/ZIP Code Phon e Number [facility] [address] [place] [address] Varicella zoster by PCR (02/04/2020 9:56 AM CDT) VZV result Not-Detected Not-Detected [facility] copies/mL [facility] Varicella zoster, See link below [facility] pcr for PDF Lab HOSPITAL ReportComment: Specimen Performing Organization Address City/[facility]/ZIP Code Phon e Number [facility] DEPARTMENT OF PATHOLOGY AND [address] [place] [phone] GENOMIC MEDICINE [address] [address] [facility] Miscellaneous referral test (02/04/2020 9:56 AM CDT) Misc test name JCV QUANT PCR SHOWN ABOVE Misc test result see note SHOWN ABOVE Comment: JCV qPCR (CSF) TEST RESULT UNIT REF RANGE JCV qPCR Not Detected copies/mL Not Detected Assay Range: 72 copies/mL to 1.00E+08 copies/mL The limit of quantitation (LOQ) is 72 copies/mL. BETH vi kosta DNA detected below the LOQ will be reported as Detected:<72 copies/mL. This test was developed and its performance characteri stics determined by [employer]. It has not been cleared or approved by the U.S. Food and Drug Administration. Results should be used in conjunc tion with clinical findings, and should not form the sole basis for a socorro gnosis or treatment decision. Performed at: [employer] [facility] [address] [place], [place] Specimen Performing Organization Address City/[facility] Phon e Number [facility] DEPARTMENT OF PATHOLOGY AND [address] [place] [address] 0 [facility] MEDICINE SHOWN ABOVE Herpes simplex virus by PCR (02/04/2020 9:56 AM CDT) Pathologist [facility] Herpes virus, PCR Not-Detected Not-Detected [facility] Herpes virus, PCR See link below [facility] for PDF Lab HOSPITAL ReportComment: Specimen Performing Organization Address City/[facility] Phon e Number [facility] DEPARTMENT OF PATHOLOGY AND [address] [place] [address] Flow cytometry evaluation (02/04/2020 9:56 AM CDT) [facility] Flow cytometry See link below [facility] evaluation for PDF Lab HOSPITAL Report Specimen Performing Organization Address City/[facility] Phon e Number [facility] DEPARTMENT OF PATHOLOGY AND [address] [place] [address] 0 [facility] Albert Noble Virus (EBV) by PCR (02/04/2020 9:56 AM CDT) Albert Noble virus, Not-Detected Not-Detected [facility] PCR copies/mL [facility] Albert Noble virus, See link below [facility] PCR for PDF Lab HOSPITAL ReportComment: Specimen Performing Organization Address City/[facility] Phon e Number [facility] DEPARTMENT OF PATHOLOGY AND [address] [place], [place] [phone] [address] Lyme disease reflexive panel, CSF (02/04/2020 9:56 AM CDT) B. burgdorferi Abs 0.08 <=0.99 [facility] DARSHANA, CSF Comment: When the Borrelia burgdorferi Abs, Total by DARSHANA resu lt is negative, no further testing is done. INTERPRETIVE INFORMATION: Borrelia burgdorferi Abs, [place], CSF 0.99 REJI or less: ......... Negative - Antibody to B. burgdo rferi not detected. 1.00 - 1.20 REJI ........... Equivocal - Repeat test ing in 10-14 days may be helpful. 1.21 REJI or greater: ...... Positive - Probable pre sence of antibo dy to B. burgdorferi detected. The detection of antibodies to B. burgdorferi in cereb rospinal fluid may indicate central nervous system infection. However, consideration must be given to possible contamination by blood or transfer of serum antibodies across the blood-brain ba rrier. Current CDC recommendations for the serologic diagnosi s of Lyme disease are to screen with a polyvalent DARSHANA test and confirm equivocal and positive results with immunoblot. Both IgM and IgG immunoblots should be performed on samples less than 4 weeks after appearance of erythema migrans. Only IgG immunoblot should be performed on samples greater than 4 weeks after the di sease onset. IgM immunoblot in the chronic stage is not recommende d and does not aid in the diagnosis of neuroborreliosis or chroni c Lyme disease. Please submit requests for appropriate immu noblot testing within 10 days. Test developed and characteristics determined by [facility]. See Compliance Statement B: [employer]/ CS Performed By: [facility] [address] [place] [address] Warm In: Nai Rushing MD Specimen Cerebrospinal fluid Performing Organization Address City/State/ZIP Code Phon e Number [facility] [address] [place] [address] [facility] [address] [place] [address] Cryptococcal antigen, screen (02/04/2020 9:56 AM CDT) Cryptococcal Ag Negative - No Cryptococcus antigen detected. [facility] Comment: HOSPITAL Specimen Information Specimen Source: CSF (Spinal Fluid) Specimen Site: CSF (spinal fluid) Specimen Cerebrospinal fluid - CSF (spinal fluid) Performing Organization Address City/[facility] Phon e Number [facility] DEPARTMENT OF PATHOLOGY AND [address] [place] [address] [phone] [address] Oligoclonal banding, CSF (02/04/2020 9:56 AM CDT) Protein, CSF 24 15 - 45 [place] mg/dL [facility] Prealbumin, CSF 6.4 3.5 - 11.1 % [facility] Albumin, CSF 66.1 40.8 - 66.2 [place] % [facility] Alpha 1, CSF 2.4 2.3 - 6.4 % [facility] Alpha 2, CSF 6.1 6.1 - 12.6 % [facility] Beta, CSF 13.1 11.7 - 24.1 [facility] Gamma, CSF 5.9 5.6 - 12.2 % [facility] CSF extended See [place] interpretation CommentComment: An [facility] normal [facility] CSF protein study. No oligoclonal bands seen. CSF interpretation See [place] CommentComment: [facility] Miguel Boyd, PhD; [facility] Fam Calderón MD Specimen Cerebrospinal fluid Performing Organization Address [facility] Phon e Number [facility] DEPARTMENT OF PATHOLOGY AND [address] [place] [address] [phone] [address] Enterovirus by PCR (02/04/2020 9:56 AM CDT) Pathologist Sig nature Enterovirus PCR Not-Detected Not-Detected [facility] Enterovirus PCR See link below [facility] for PDF Lab HOSPITAL ReportComment: Specimen Performing Organization Address City/[facility] Phon e Number [facility] DEPARTMENT OF PATHOLOGY AND [address] [place] [address] [phone] [address] [facility] Gram stain (02/04/2020 9:56 AM CDT) Gram stain isolate No WBC's or organisms seen. [facility] Comment: HOSPITAL Specimen Information Specimen Source: CSF (Spinal Fluid) Specimen Site: CSF (spinal fluid) Specimen Cerebrospinal fluid - CSF (spinal fluid) Performing Organization Address City/[facility] Phon e Number [facility] DEPARTMENT OF PATHOLOGY AND [address] [place] [address] [phone] [address] CSF culture (02/04/2020 9:56 AM CDT) Pathologist Donald CSF culture No growth after 3 days. [facility] isolate Comment: HOSPITAL Specimen Information Specimen Source: CSF (Spinal Fluid) Specimen Site: CSF (spinal fluid) Specimen Cerebrospinal fluid - CSF (spinal fluid) Performing Organization Address [facility] Phon e Number [facility] DEPARTMENT OF PATHOLOGY AND [address] [place] [address] [phone] [address] CSF cell count with differential (02/04/2020 9:56 AM CDT) Pathologist Donald Color, CSF Colorless [facility] Appearance, CSF Clear [facility] Comment: HOSPITAL Corrected result called to Juan Daniel Mallory/WT18 13:21 Corrected result; previously reported as Slightl y hazy on 02/04/2020 at 11:19 by 2 RBC, CSF 33 (H) 0 - 1 /CMM [facility] WBC, CSF 1 0 - 5 /CMM [facility] CSF mononuclear cell 1/CMM [facility] Specimen Cerebrospinal fluid Performing Organization Address City/[facility] Phon e Number [facility] DEPARTMENT OF PATHOLOGY AND [address] [place] [address] [phone] [address] VDRL, CSF screen (02/04/2020 9:56 AM CDT) Pathologist Sig nature VDRL, CSF screen Non-reactive Non-reactive [facility] Specimen Cerebrospinal fluid Performing Organization Address City/[facility] Phon e Number [facility] DEPARTMENT OF PATHOLOGY AND [address] [place] [address] [phone] [address] Glucose level, CSF (02/04/2020 9:56 AM CDT) Pathologist Sig mary Glucose, CSF 90 (H) 40 - 70 mg/dL [facility] Specimen Cerebrospinal fluid Performing Organization Address City/[facility] Phon e Number [facility] DEPARTMENT OF PATHOLOGY AND [address] [place] [address] [phone] [place] [address] EEG (routine) (02/04/2020 7:19 AM CDT) Narrative Performed At This result has an attachment that is no t available. EEG AWAKE AND ASLEEP Date of Service: 02/04/2020 Awake Recording: The occipital dominant rhythm is 10-1 1 Hz. 18-22 Hz activity is present in all regions. Sleep Recording: No epileptiform activity was record ed. Hyperventilation: No abnormality elicited. Photic Stimulation: No abnormality elicited. Impression The background activity is within the range of normal variation. No lateralized or epileptiform activity was recorded. ICD-10 Code: R569 Blood culture, aerobic & anaerobic (02/04/2020 1:50 AM CDT)Only the most recent of2 resultswithin the time period is included. Blood culture No growth after 5 days of incubation. [facility] isolate Comment: HOSPITAL Specimen Information Specimen Source: Blood Specimen Site: Antecubital, right Specimen Blood - Antecubital, right Performing Organization Address City/State/ZIP Code Phon e Number [facility] DEPARTMENT OF PATHOLOGY AND [address] [place] [phone] [facility] [address] [place] [address] Urinalysis screen and microscopy, with reflex to culture (02/04/2020 12:56 AM CDT) Specimen site Clean catch [facility] Color, UA Yellow [facility] Appearance, UA Clear [facility] Specific gravity, UA 1.036 (H) 1.001 - 1.035 [facility] pH, UA 5.0 5.0 - 8.5 [facility] Protein, UA 1+ (A) Negative [facility] Glucose, UA 1+ (A) Negative [facility] Ketones, UA Negative Negative [facility] Bilirubin, UA Negative Negative [facility] Blood, UA Negative Negative [facility] Nitrite, UA Negative Negative [facility] Urobilinogen, UA <2.0 <2.0 [facility] Leukocyte esterase, Negative Negative [facility] Epithelial cells, UA 2 /HPF [facility] WBC, UA <1 0 - 4 /HPF [facility] RBC, UA None seen 0 - 5 /HPF [facility] Bacteria, UA None seen None seen [facility] Yeast, UA Few (A) [facility] Yeast with None seen [facility] pseudohyphae, UA HOSPITAL Hyaline casts, UA 4 /LPF [facility] Specimen Urine Performing Organization Address City/State/ZIP Code Phon e Number [facility] DEPARTMENT OF PATHOLOGY AND [address] [place] [address] [phone] [address] Urine drugs of abuse screen (02/04/2020 12:56 AM CDT) Amphetamine screen, Negative [place] urine [facility] Barbiturate screen, Negative [place] urine [facility] Benzodiazepine Negative [place] screen, urine [facility] Cocaine screen, urine Negative [facility] Methadone metabolite Negative [place] (EDDP), urine [facility] Opiates screen, urine Positive (A) [facility] Oxycodone screen, Negative [place] urine [facility] Phencyclidine screen, Negative [place] urine [facility] Tricyclic screen, Negative [place] urine [facility] Cannabinoid screen, Negative [place] urine Comment: [facility] Drug screen minimum concentration of detectability HOSPITAL Amphetamines 1000 ng/mL Barbiturates 200 ng/mL Benzodiazepines 300 ng/mL Cocaine 300 ng/mL Methadone 300 ng/mL Opiates 300 ng/mL Oxycodone 300 ng/mL Phencyclidine 25 ng/mL Cannabinoids 50 ng/mL Tricyclics 1000 ng/mL Results are from screening tests and should only be used for medical evaluation. Drug testing for legal purposes requires definitive (or confirmatory) testing methods, which are available upon request. Contact the laboratory if definitive testing is requir ed. Specimen Urine Performing Organization Address City/[facility]/ZIP Code Phon e Number [facility] DEPARTMENT OF PATHOLOGY AND [address] [place] [address] [phone] [address] Urine culture (02/04/2020 12:56 AM CDT) Pathologist Sig nature Urine culture SEE COMMENTComment: [facility] Bacteriuria screen HOSPITAL negative. Specimen Performing Organization Address City/[facility] Phon e Number [facility] DEPARTMENT OF PATHOLOGY AND [address] [place] [address] [phone] [address] COVID-19 qualitative PCR (02/03/2020 11:41 PM CDT) Interpretation Negative results do not prec lude 2019-nCoV infection and should not be used as the sole basis for treatment or other patient management decisions. Negative results must be combined with clinical observations, patient history, and epidemiological [place] information. [facility] COVID-19 qualitative Not-Detected Not-Detecte [place] PCR result d [facility] COVID-19 qualitative See link below for [place] PCR PDF Lab [facility] ReportComment: Case HOSPITAL Number: [id number] Specimen Nasal swab Performing Organization Address [facility] Phon e Number [facility] DEPARTMENT OF PATHOLOGY AND [address] [place], [place] [phone] GENOMIC MEDICINE [facility] [address] [place] [address] [facility] MRI Brain & Orbit W Wo Contrast (02/03/2020 10:12 PM CDT) Specimen Narrative Performed At This result has an attachment that is no t available. EXAMINATION: MRI BRAIN & ORBIT W WO CONTRAST [facility] CLINICAL HISTORY: Vision loss COMPARISON: CT brain dated 02/03/2020. FINDINGS: Pre and postcontrast MRI of the brain and orbits is in terpreted. The optic nerves, optic chiasm, and opti c tracts are normal in size and signal intensity. There is no abnormal enhancement. The brain is normal in morphology and in signal intens ity. There is no abnormal restricted diffusion. No extra-axial collection or mass effect is seen. The major vascular flow-voids are preserved. IMPRESSION: Unremarkable MRI of the brain and orbits. [facility]-[id number] Procedure Note Interface, Radiology Results Incoming - 02/03/2020 10:39 PM CDT EXAMINATION: MRI BRAIN & ORBIT W WO CONTRAST CLINICAL HISTORY: Vision loss COMPARISON: CT brain dated 02/03/2020. FINDINGS: Pre and postcontrast MRI of the brain an d orbits is interpreted. The optic nerves, optic chiasm, and opti c tracts are normal in size and signal intensity. There is no abnormal enhancement. The brain is normal in morphology and in signal intensity. There is no abnormal restricted diffusio n. No extra-axial collection or mass effect is seen. The major vascular flow-voids are preser dago. IMPRESSION: Unremarkable MRI of the brain and orbits . [id number] Performing Organization Address City/[facility] Phon e Number [facility] [address] [facility] [place] [address] MRI Thoracic Spine W Contrast (02/03/2020 10:12 PM CDT) Specimen Narrative Performed At EXAMINATION: MRI THORACIC SPINE W CONTRA ST [facility] CLINICAL HISTORY: demyelinating lesions COMPARISON: None TECHNIQUE: Multiplanar multisequence pre and post cont rast enhanced examination was performed of the thoraci c spine. FINDINGS: ALIGNMENT: Normal. VERTEBRAE: No vertebral fracture. No degenerative krysta ow signal abnormality is present. No suspicious en hancement. PERIVERTEBRAL SOFT TISSUES: Normal. SPINAL CORD : Normal signal. No abnormal enhancement. Mild left paracentral disc protrusion at T8-T9 with no spinal canal or foraminal stenosis. Otherwise no significant posterior disc disease, spinal canal, subarticular zone or neural foraminal st enosis throughout the thoracic spine. There is no mass, adenopathy or aneurysm of the visual ized soft tissues. IMPRESSION: 1. No evidence of thoracic cord abnormal signal to sug gest demyelinating lesions. 2. Small left paracentral disc protrusio n at T8-T9 with no stenosis. [id number] Procedure Note Interface, Radiology Results Incoming - 02/03/2020 10:41 PM CDT EXAMINATION: MRI THORACIC SPINE W CONTRAST CLINICAL HISTORY: demyelinating lesions COMPARISON: None TECHNIQUE: Multiplanar multisequence pre and post contrast enhanced examination was performed of the thoracic spine. FINDINGS: ALIGNMENT: Normal. VERTEBRAE: No vertebral fracture. No deg enerative marrow signal abnormality is present. No suspicious enhancement. PERIVERTEBRAL SOFT TISSUES: Normal. SPINAL CORD : Normal signal. No abnormal enhancement. Mild left paracentral disc protrusion at T8-T9 with no spinal canal or foraminal stenosis. Otherwise no significant posterior disc disease, spinal canal, subarticular zone or neural foraminal stenosis throughout the thoracic spine. There is no mass, adenopathy or aneurysm of the visualized soft tissues. IMPRESSION: 1. No evidence of thoracic cord abnormal signal to suggest demyelinating lesions. 2. Small left paracentral disc protrusio n at T8-T9 with no stenosis. [id number] Performing Organization Address [facility] Phon e Number [facility] [address] [facility] [place] [address] MRI Cervical Spine W Contrast (02/03/2020 10:12 PM CDT) Specimen Narrative Performed At EXAMINATION: MRI CERVICAL SPINE W CONT RAST HM [facility] CLINICAL HISTORY: demyelinating lesion s COMPARISON: None. FINDINGS: Postcontrast MRI of the cervic al spine is interpreted. The cervical cord is normal in volume an d signal intensity. There is no abnormal cervical cord enhan cement. Bone marrow signal is normal. C2-3: Unremarkable. C3-4: Unremarkable. C4-5: Minimal disc degenerative changes. C5-6: Minimal disc degenerative changes. C6-7: Minimal disc degenerative changes. C7-T1: Unremarkable. The paraspinous soft tissues are unremar kable. IMPRESSION: No evidence of cervical cord demyelinati on. [id number] Procedure Note Interface, Radiology Results Incoming - 02/03/2020 10:36 PM CDT EXAMINATION: MRI CERVICAL SPINE W CONTRAST CLINICAL HISTORY: demyelinating lesions COMPARISON: None. FINDINGS: Postcontrast MRI of the cervic al spine is interpreted. The cervical cord is normal in volume an d signal intensity. There is no abnormal cervical cord enhan cement. Bone marrow signal is normal. C2-3: Unremarkable. C3-4: Unremarkable. C4-5: Minimal disc degenerative changes. C5-6: Minimal disc degenerative changes. C6-7: Minimal disc degenerative changes. C7-T1: Unremarkable. The paraspinous soft tissues are unremar kable. IMPRESSION: No evidence of cervical cord demyelinati on. [facility]-[id number] Performing Organization Address City/[facility]/ZIP Code Phon e Number [facility] [address] [place] [phone] Cytology (non-gynecological) request (02/03/2020 8:17 PM CDT) [facility] DEPARTMENT OF PATHOLOGY AND GENOMIC MEDICINE Cytology See link below [facility] DEPARTMENT OF (non-gynecological) for PDF Lab PATHOLOGY AND report Report GENOMIC MEDICINE Result status This is Final [facility] DEPARTMENT OF Report for PATHOLOGY AND [id number] GENOMIC MEDICINE Specimen Performing Organization Address City/[facility]/ZIP Code Phon e Number [facility] DEPARTMENT OF PATHOLOGY AND [address] [place] [phone] GENOMIC MEDICINE Comprehensive metabolic panel (02/03/2020 6:35 PM CDT) Sodium 140 135 - 148 [facility] mEq/L [facility] Potassium 3.8 3.5 - 5.0 [facility] mEq/L [facility] Chloride 104 98 - 112 [facility] mEq/L [facility] CO2 18 (L) 24 - 31 mEq/L [facility] Anion gap 18@ANIO (H) 7 - 15 mEq/L [facility] BUN 16 6 - 20 mg/dL [facility] Creatinine 0.62 0.50 - 0.90 [facility] mg/dL [facility] Glucose 137 (H) 65 - 99 mg/dL [facility] Calcium 9.0 8.3 - 10.2 [facility] mg/dL [facility] Protein 7.2 6.3 - 8.3 [facility] Comment: g/dL HOSPITAL - 4.6-7.0 g/dL 1 week 4.4-7.6 g/dL 7 months-1year 5.1-7.3 g/dL 1-2 years 5.6-7.5 g/dL >3 years 6.0-8.0 g/dL 18-150 6.3-8.3 g/dL Albumin 3.9 3.5 - 5.0 [facility] g/dL HOSPITAL A/G ratio 1.2 0.7 - 3.8 [facility] Alkaline phosphatase 57 35 - 104 U/L [facility] AST 15 10 - 35 U/L [facility] ALT 25 5 - 50 U/L [facility] Total bilirubin 0.3 0.0 - 1.2 [facility] mg/dL HOSPITAL Specimen Blood Performing Organization Address City/[facility]/ZIP [facility] Phon e Number [facility] DEPARTMENT OF PATHOLOGY AND [address] [place] [address] [address] Syphilis total antibody (02/03/2020 6:25 PM CDT) Syphilis total Non-reactiveComment Non-reactive [facility] antibody : No serological HOSPITAL evidence of syphilis infection. Specimen Serum Performing Organization Address City/State/ZIP [facility] Phon e Number [facility] DEPARTMENT OF PATHOLOGY AND [address] [place], [place] [phone] [address] [address] HIV Ag/Ab combination (02/03/2020 6:25 PM CDT) HIV Ag/Ab combination Non-reactive Non-reactive [facility] Specimen Blood Performing Organization Address City/[facility]/ZIP Code Phon e Number [facility] DEPARTMENT OF PATHOLOGY AND [address] [place] [address] [phone] [address] Homocystine, plasma (02/03/2020 6:25 PM CDT) [facility] Homocysteine 6.4 0.0 - 15.0 [facility] Comment: umol/L HOSPITAL The risk for coronary vascular disease increases progr essively with homocysteine concentration. A 3.4 times greater risk is associated with a homocysteine concentration of greate r than 15.8 umol/L as compared to a concentration below 14.1 umol/L. Specimen Blood Performing Organization Address [facility] Phon e Number [facility] DEPARTMENT OF PATHOLOGY AND [address] [place] [address] [address] B. burgdorferi Abs total, serum (02/03/2020 6:25 PM CDT) [facility] B. burgdorferi 0.98 0.00 - 1.20 [facility] antibodies Comment: INTERPRETIVE INFORMATION: Borrelia Burgdorferi Abs,Tot al by DARSHANA 0.99 REJI or Less: ...... Negative: Antibody to B. burgdorferi no t detected. 1.00 - 1.20 REJI......... Equivocal: Repeat testing in 10-14 days may be helpful. 1.21 REJI or Greater: ... Positive: Probable presenc e of antibody to B. burgdorferi detected. Performed By: [facility] [address] [place] [address] Warm In: Nai Rushing MD Specimen Serum Performing Organization Address City/[facility] Code Phon e Number [facility] [address] [place] [address] [facility] [address] [place] [address] Vitamin D 25 hydroxy level (02/03/2020 6:25 PM CDT) [facility] Vitamin D, 48.7 30.0 - 150.0 [facility] 25-hydroxy Comment: ng/mL HOSPITAL This assay reports the sum of 25-hydroxy vitamin D3 an d 25-hydroxy vitamin D2. Reference range: 0-17 years: Deficiency: less than 20ng/mL Optimum level: greater than or equal to 20 ng/mL. 18 years and older: Deficiency: less than 20ng/mL Insufficiency: 20-29 ng/mL Optimum Level: 30-80 ng/mL The assay reportable range is 3.4 155.9 ng/mL. Level s higher than 150 ng/mL may be associated with toxicity. If toxicity is clinically suspected and the reported r esult is >155.9 ng/mL,contact lab for alternative methods to obtain a definitive level. If separate quantitation of 25-hydroxy vitamin D3 and 25-hydroxy vitamin D2 is needed, please contact lab for alternative methods. Specimen Blood Performing Organization Address City/[facility] Phon e Number [facility] DEPARTMENT OF PATHOLOGY AND [address] [place] [address] Sedimentation rate (02/03/2020 6:25 PM CDT) Pathologist Sig nature Sedimentation rate 7 0 - 20 mm/hr [facility] Specimen Blood Performing Organization Address [facility] Phon e Number [facility] DEPARTMENT OF PATHOLOGY AND [address] [place] [address] [address] Rheumatoid factor (02/03/2020 6:25 PM CDT) Pathologist Sig nature Rheumatoid factor <10 0 - 13 IU/mL [facility] Specimen Blood Performing Organization Address [facility] Phon e Number [facility] DEPARTMENT OF PATHOLOGY AND [address] [place] [address] [phone] [address] C-reactive protein (02/03/2020 6:25 PM CDT) Pathologist Sig nature CRP <0.30 0.00 - 0.50 mg/dL [facility] Specimen Blood Performing Organization Address [facility] Phon e Number [facility] DEPARTMENT OF PATHOLOGY AND [address] [place] [address] ELMER (02/03/2020 6:25 PM CDT) ELMER screen Negative Negative [facility] Comment: HOSPITAL Test performed using [employer] RageTanke DAPI ELMER kit (Indirect Immunofluorescence Assay) for Anti-Nuclear Antibody on [employer] QUANTA-Lyser 160 Analyzer. Specimen Blood Performing Organization Address City/[facility]/ZIP Code Phon e Number [facility] DEPARTMENT OF PATHOLOGY AND [address] [place] [address] [phone] [address] T3 (02/03/2020 6:25 PM CDT) Pathologist Sig nature T3 70 (L) 80 - 200 ng/dL [facility] Specimen Blood Performing Organization Address City/[facility]/ZIP Code Phon e Number [facility] DEPARTMENT OF PATHOLOGY AND [address] [place] [address] [phone] [address] Thyroid stimulating hormone (02/03/2020 6:25 PM CDT) Pathologist Sig nature TSH 1.12 0.27 - 4.20 uIU/mL [facility] Specimen Blood Performing Organization Address City/[facility]/ZIP [facility] Phon e Number [facility] DEPARTMENT OF PATHOLOGY AND [address] [place] [address] [phone] [address] T4, free (02/03/2020 6:25 PM CDT) Pathologist Sig nature T4, free 1.0 0.9 - 1.7 ng/dL [facility] Specimen Blood Performing Organization Address [facility] Phon e Number [facility] DEPARTMENT OF PATHOLOGY AND [address] [place] [address] [phone] [address] Folate level (02/03/2020 6:25 PM CDT) Pathologist Sig nature Folate 8.0 4.8 - 24.2 ng/mL [facility] Specimen Serum Performing Organization Address City/[facility]/ZIP Code Phon e Number [facility] DEPARTMENT OF PATHOLOGY AND [address] [place] [phone] [place] [address] Vitamin B12 level (02/03/2020 6:25 PM CDT) Vitamin B12 541 211 - 946 [facility] Comment: pg/mL HOSPITAL Significant overlap exists between normal and deficien cy states. However, most patients with deficiencies will have Ser um B12 <200 pg/mL. Specimen Serum Performing Organization Address City/[facility] Phon e Number [facility] DEPARTMENT OF PATHOLOGY AND [address] [place] [address] [phone] [address] Cortisol level, random (02/03/2020 6:25 PM CDT) Cortisol, random 2 ug/dL [facility] Comment: HOSPITAL Reference Ranges are not established for non-timed Cor tisol levels. Reference Range for Timed Cortisol: 6 - 10 AM 6 - 18 ug/d l 4 - 8 PM 3 - 11 ug/ dl Specimen Blood Performing Organization Address [facility] Phon e Number [facility] DEPARTMENT OF PATHOLOGY AND [address] [place] [address] [address] Head Wo Contrast (02/03/2020 4:14 PM CDT) Specimen Narrative Performed At EXAM: CT HEAD WO CONTRAST [facility] CLINICAL HISTORY: headache loss of vis ion concern for ICP TECHNIQUE: Noncontrast enhanced images of the brain we re obtained from the skull base to the vertex. Both soft tissue and bon e reconstruction algorithms were performed. CT scans are performed using radiation dose reduction techniques (iterative reconstruction and/or automated exposure co ntrol). Technical factors are evaluated and adjusted to ensure appropria te moderation of exposure. Automated dose timber management technician nology is applied to adjust radiation exposure while achievi ng a diagnostic quality image. COMPARISON: None. FINDINGS: The chun-white matter differentiation is preserved and without evidence of acute territorial infarction. There is no evidence for acute intracranial hemorrhage , mass, mass effect, hydrocephalus, or extra-axial fl uid collection. Crowding of the foramen magnum secondary to mild cereb ellar tonsillar ectopia. Orbits are unremarkable. Mild mucosal thickening ident ified in fairly within the right maxillary sinus. Remaining paranasal sinuses are clear. Mastoid air cells are normally pneumatized. Osseou s structures are intact. IMPRESSION: No CT evidence for acute intracranial ab normality. [id number] Procedure Note Hm Interface, Radiology Results Incoming - 02/03/2020 4:20 PM CDT EXAM: CT HEAD WO CONTRAST CLINICAL HISTORY: headache loss of visi on concern for ICP TECHNIQUE: Noncontrast enhanced images o f the brain were obtained from the skull base to the vertex. Both soft tissue and bone reconstruction algorithms were performed. CT scans are performed using radiation d ose reduction techniques (iterative reconstruction and/or automated exposure control). Technical factors are evaluated and adjusted to ensure appropriate moderation of exposure. Automated dose timber management technician nology is applied to adjust radiation exposure while achieving a diagnostic quality image. COMPARISON: None. FINDINGS: The chun-white matter differentiation is preserved and without evidence of acute territorial infarction. There is no evidence for acute intracran ial hemorrhage, mass, mass effect, hydrocephalus, or extra-axial fluid collection. Crowding of the foramen magnum secondary to mild cerebellar tonsillar ectopia. Orbits are unremarkable. Mild mucosal th ickening identified in fairly within the right maxillary sinus. Remaining paranasal sinuses are clear. Mastoid air cells are normally pneumatized. Osseous structures are intact. IMPRESSION: No CT evidence for acute intracranial ab normality. [id number] Performing Organization Address City/[facility] Phon e Number [facility] [address] [place] [address] hCG quantitative, serum (02/03/2020 2:27 PM CDT) hCG quantitative, <1 0 - 5 mIU/mL [facility] serum Comment: HOSPITAL Reference range for HCG Quant applies to males and non - females. Post Menopausal 0.0 - 8.1 mIU/mL Specimen Blood Performing Organization Address 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
--- OUTSIDE RECORDS SUMMARY | 2020-02-09 11:26 | XMS REPORT | Continuity of Care Document ---
:1985 Author Organization [employer] Care Team Providers Name Role Phone [facility] Unavailable Un available Problems Problem Status Onset [...] BID, # 180 tab, 3 Refill(s), Pharmacy: [facility] #[id number] 24 HR topiramate 100 mg = 1 Active Misc her 100 MG Extended cap, PO, 019 Neuro Release Capsule Daily, # 90 [Trokendi] cap, 3 Refill(s), Pharmacy: [facility] #[id number] 24 HR topiramate 100 mg = 1 No Longer Mi matt 100 MG Extended cap, PO, Active 019 Neuro Release Capsule Daily, X 30 [Trokendi] day, # 30 cap, 3 Refill(s), Pharmacy: [facility] oxcarbazepine 300 300 mg = 1 No Longer M ischer MG Oral Tablet tab, PO, Active 019 Neuro [Trileptal] BID, X 30 day, # 60 tab, 3 Refill(s), Pharmacy: [facility] lisdexamfetamine 30 mg = 1 Active Misch er dimesylate 30 MG cap, PO, 019 Neuro Oral Capsule QAM, # 30 [Vyvanse] cap, 0 Refill(s) omeprazole 20 mg 20 mg = 1 Active Misch er oral delayed cap, PO, 019 Neuro release capsule Daily, # 30 cap, 2 Refill(s), Pharmacy: [facility] oxcarbazepine 300 300 mg = 1 Active Mis doreen MG Oral Tablet tab, PO, 019 Neuro [Trileptal] BID, # 60 tab, 2 Refill(s), Pharmacy: [facility] 24 HR topiramate 100 mg = 1 Active Misc her 100 MG Extended cap, PO, 019 Neuro Release Capsule Daily, # 30 [Trokendi] cap, 3 Refill(s), Pharmacy: [facility] topiramate 25 MG 25 mg = 1 Active Misch er Oral Tablet tab, PO, 019 Neuro [Topamax] BID, # 60 tab, 2 Refill(s), Pharmacy: [facility] Phenytoin sodium 200 mg = 2 Active Misc her 100 MG Extended cap, PO, 019 Neuro Release Capsule BID, # 120 [Dilantin] cap, 3 Refill(s), Pharmacy: [facility] Alprazolam 0.5 MG 0.5 mg = 1 [...] [facility] Resp[facility] 16 12/23/2018 [...] [facility] BMI Calculated 32.67 10/01/2018 [facility] Weight 91.818 10/01/2018 [facility] Height 167.64 cm 10/01/2018 [facility] Respitory Rate 16 10/01/2018 [facility] Neuro Heart Rate 83 10/01/2018 [facility] Systolic (mm Hg) 109 10/01/2018 [facility] Diastolic (mm Hg) 80 10/01/2018 [facility] Encounters Location Location Encounter Encounter Reason Attending ADM LA Stat us Source Details Type Number For Provider Date Date Visit Outpatient [id number] David 10/01 Active [facility] [place] [facility] Outpatient [id number] David 10/01 10/02 [facility] [place] [facility] [id number] David 10/02 Active [facility] [place] [facility] Outpatient [id number] David 10/02 10/03 [facility] Neurology [facility] [place] Outpatient [id number] David 10/16 Active [facility] [place] [facility] Outpatient [id number] David 10/16 10/17 [facility] Neurology [facility] [place] Outpatient [id number] David 11/27 Active [facility] MNA Outpatient [id number] David 11/27 11/28 [facility] Neurology [facility] [place] Outpatient [id number] David 12/23 Active [facility] [place] [facility] Outpatient [id number] David 12/23 12/24 [facility] Neurology [facility] [place] Outpatient [id number] David 04/28 Active [facility] [place] [facility] Ambulatory [id number] David 04/28 04/28 [facility] Neurology Pre-Reg Kre /2019 [facility] [place] [facility] Outside [id number] 05/21 05/23 [facility] Neurology Medical /2019 [facility] [place] Records Procedures Procedure Code Date Perfomer Comments Source Tubal ligation [id number] [facility] Ne uro Assessment and Plan No Data Provided for This Section Plan of Care No Data Provided for This Section Social History Social History Date Source Social History TypeResponse 10/01/2018 [facility] Neur o Employment/School Status: Employed. Smoking Status Never smoker; Exposure to Tobacco Smoke None; Cigarette Smoking Last 365 Days No; Reg Smoking Cessation Counseling No entered on: 12/23/18 Family History No Data Provided for This Section Advance Directives No Data Provided for This Section Functional Status No Data Provided for This Section
--- OUTSIDE RECORDS SUMMARY | 2020-02-09 11:28 | XMS REPORT ---
:1985 Author Organization [employer] Care Team Providers Name Role Phone Eulalio Doug Provider Role Unavailable Allergies, Adverse Reactions, Alerts Substance Reaction Event Type Zofran Info Not Available Drug Allergy Cephalexin Info Not Available Drug Allergy Problems Problem Type Condition Code Onset Dates Condition Statu s Assessment Sorethroat J02.9 Active Assessment Chills R68.83 Active Assessment Contact with and (suspected) Z20.818 Active exposure to other bacterial communicable diseases Problem GERD (gastroesophageal reflux K21.9 Active disease) [...] ctive Problem Rectal bleeding K62.5 Active Assessment Cough R05 Active Problem Depression with anxiety F41.8 Acti ve Problem Tinnitus H93.19 Active Problem Incontinence R32 Active Problem Stress incontinence N39.3 Active Problem Right anterior knee pain M25.561 Act ingris Problem Hiatal hernia K44.9 Active Problem 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 A ctive Medications Medication Code Code Instructions Start End Status Dosage System Date Date Trokendi XR NDC 12357605751 100mg By Mouth Active n ot defined Loestrin [facility] 75782216939 1.5-30 MG-MCG Active 1 tab let 1.530 () Orally Once a day Vyvanse [facility] 32972280907 40 MG Orally Jun 03, Active 1 capsu le Once a day 2019 in the morning Singulair [facility] 92957364849 10 MG Orally Active 1 tab let in Once a day the evening Xanax [facility] 36070124293 0.5 MG Orally Active 1 tabl et once a day prn anxiety Flonase [facility] 09743676865 50 MCG/ACT Active 1 spray i n Nasally Once a each day nostril Azelastine HCl [facility] 98324962048 0.05 % July Active 1 kristi p into Ophthalmic twice 2019 affect ed a day prn itchy eye eyes Vyvanse [facility] 64509015574 50 MG Orally October 15, Active 1 caps ule Once a day 2019 in the morning Trileptal [facility] 95974283322 300 MG Orally Active 1 ta blet Twice a day Results No Known Results Summary Purpose [employer]ClinicalWorks Submission
--- OUTSIDE RECORDS SUMMARY | 2020-02-09 11:28 | XMS REPORT | Continuity of Care Document ---
:1985 Author Organization [facility] t Address [address] [place] [address] [place] [address] Care Team Providers Name Role Phone Yari HAMILTON Primary Care Physician Janice Guevara MD Attending Clinician Edwin HAMILTON Attending Clinician Varsha HAMILTON, [facility] Attending Clinician Ricky HOBSON Attending Clinician Unavailable Marck Chung Attending Clinician EDWIN Admitting Clinician Unavailable Payers Payer Name Policy Type Policy Effective Date Expiration Date Sour ce Number [id number] CHOICE [id number] 2019 [place] PPO/FEDERAL 00:00:00 [facility] EMPL [id number] 2019Mary Ann ntPPO Problems Condition Condition Condition Status Onset Resolution Last Treating Co mments Source Name Details Category Date Date Treatment Clinician Date 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 0-15 Method i 00:00: st 00 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, leukemia, 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 (disorder) Active Problem 05/25/2019 [facility] History of Problem Active 2019-05-25 M emoria - * 00:23:15 l leukemia History Rupal nn (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) (context-d ependent category) Active Problem 05/25/2019 [facility] Headache Problem Active 2019-05-25 Mem oria (finding) 00:23:15 l Headache Murray n (finding) Active Problem 05/25/2019 [facility] Simple Problem Active 2019-05-25 Memor ia obesity 00:23:15 l (disorder) Simple Herm zay obesity (disorder) Active Problem 05/25/2019 [facility] Backache Problem Active 2019-05-25 Mem oria (finding) 00:23:15 l Backache Murray n (finding) Active Problem 05/25/2019 [facility] Allergies, Adverse Reactions, Alerts Allergy Allergy Status Severity Reaction(s) Onset Inactive Treating Comm ents Source Name Type Date Date Clinician Cephalex Propensi Active Hives 2019-04 [place] in ty to 0-16 Methodi adverse 00:00: st reaction 00 s to drug Latex Propensi Active Hives 2019-04 [place] ty to 0-16 Methodi adverse 00:00: st reaction 00 s to drug Ondanset Propensi Active Headache 2019-04 [place] mikey Hcl ty to 0-16 Methodi adverse 00:00: st reaction 00 s to drug Gadobutr Propensi Active Other (See 2019-04 Vomiting1 Lynco ol ty to Comments) 0-15 01520 Method i adverse 00:00: 8:30pm- st reaction 00 Per s to patient drug denied shortness of breath, hives, itchiness . Only nauseous/ vomiting as a side effect after administr ation of Gadavist. Cephalex Adverse [facility] Zofran Adverse Active Info Not [facility] Reaction Available [facility] cephalex cephalex Active Memori a in in l Riacrdo Latex Latex Active Memoria l Ricardo Gadavist Gadavist Active Memori a l [place] Family History Family Member Diagnosis Comments Start Date Stop Date Source Paternal grandfather Kidney cancer Victor Manuel Aguirre Social History Social Habit Start Date Stop Date Quantity Comments Source Sex Assigned At [facility] ethodist Tobacco use and 2020-02-05 2020-02-05 Never used [facility] ethodist exposure 00:00:00 00:00:00 Alcohol intake 2020-02-05 2020-02-05 Current drinker Houssheryl on [facility] 00:00:00 00:00:00 of alcohol (finding) Alcohol Comment 2020-02-03 2020-02-03 occ drinker Tompikns [facility] 00:00:00 00:00:00 Social History 2018-10-01 2018-10-01 [facility] 13:53:53 13:53:53 Smoking Status Start Date Stop Date Source Never smoker Lynco Methodis t Medications Ordered Filled Start Stop Current Ordering Indication Dosage Frequency Signature Comments Components Source Medication Medication Date Date Medication? Clinician (SIG) Name Name topiramate 2019-04 2020- No 1{capsu QD Take 1 [place] (Trokendi 0-20 10-20 le} capsule by Met hodi XR) 100 mg 18:40: 00:[address] capsule,ext 28 :00 daily. ended (Patient release stopped 24hr taking this medication in the summer because she ran out of it) OXCARBAZEPI 2019-04- No (Patient [place] NE ORAL 0-20 10-20 stopped Methodi 18:40: 00:[address] 28 :00 this medication in the summer because she ran out of it) atropine 1 2019-04 2020- No 1[drp] Q.5D Administer [place] % 0-20 10-20 1 drop to Methodi ophthalmic 18:40: 00:00 the right s t solution 28 :00 eye 2 (two) times a day. (start date: ~3 weeks ago - per patient) lisdexamfet 2019-04 Yes 40mg QD Take 40 mg [place] amine 0-20 by mouth Methodi (VYVANSE) 18:40: daily. st 40 MG 24 (per capsule patient, stopped taking it last week - unknown reason); (per [place] Prescript[facility] on Drug Monitoring Program, last filled 12/18/19, quantity: 30, day supply: 30) metoclopram 2019-04 2020- Yes 5mg [id number] Take 1 [place] dung 0-20 10-25 [id number] tablet (5 Met hodi (Reglan) 5 00:00: 23:59 3D mg total) s t MG tablet 00 :00 by mouth 3 (three) times a day as needed (nausea, vomiting) for up to 5 days. Vyvanse Vyvanse Yes Na Savage [address] [facility]25 [facility] oxcar[facility] Yes 300 mg = 1 Memoria ne 300 MG 9-06 tab, PO, l Oral Tablet 16:04: BID, # 180 [place] [Trileptal] 19 tab, 3 Refill(s), Pharmacy: [id number] HR Yes 100 mg = 1 Memori a topiramate 9-06 cap, PO, l 100 MG 16:04: Daily, # [place] Extended 10 90 cap, 3 Release Refill(s), Capsule Pharmacy: [[facility]] [id number] HR No 100 mg = 1 Memori a topiramate 9-04 cap, PO, l 100 MG 18:31: Daily, X [place] Extended 05 30 day, # Release 30 cap, 3 Capsule Refill(s), [Troken] Pharmacy: [facility] oxcarbazepi No 300 mg = 1 Memoria ne 300 MG 9-04 tab, PO, l Oral Tablet 18:31: BID, X 30 H ermann [Trileptal] 02 day, # 60 tab, 3 Refill(s), Pharmacy: [facility] lisdexamfet Yes 30 mg = 1 M emoria amine 8-09 cap, PO, l dimesylate 16:20: QAM, # 30 He rmann 30 MG Oral 00 cap, 0 Capsule Refill(s) [Vyvanse] omeprazole Yes 20 mg = 1 Me moria 20 mg oral 7-17 cap, PO, l delayed 00:27: Daily, # Murray n release 00 30 cap, 2 capsule Refill(s), Pharmacy: [facility] oxcarbazepi Yes 300 mg = 1 Memoria ne 300 MG 7-03 tab, PO, l Oral Tablet 18:01: BID, # 60 H ermann [Trileptal] 00 tab, 2 Refill(s), Pharmacy: [facility] 24 HR Yes 100 mg = 1 Memori a topiramate 6-28 cap, PO, l 100 MG 14:50: Daily, # [place] Extended 00 30 cap, 3 Release Refill(s), Capsule Pharmacy: [[facility]] [facility] topiramate Yes 25 mg = 1 Me moria 25 MG Oral 6-14 tab, PO, l Tablet 23:33: BID, # 60 Murray n [Topamax] 00 tab, 2 Refill(s), Pharmacy: [facility] Phenytoin Yes 200 mg = 2 Me moria sodium 100 6-13 cap, PO, l MG Extended 13:57: BID, # 120 Ricardo Release 00 cap, 3 Capsule Refill(s), [Dilantin] Pharmacy: [facility] Alprazolam Yes 0.5 mg = 1 M emoria 0.5 MG Oral 6-13 tab, PO, l Tablet 13:28: TID, 0 [place] [Xanax] 00 Refill(s) Zyrtec 2019 Yes Daily, 0 Memoria 6-13 Refill(s) l 13:28: Ricardo 00 Phenytoin No 100 mg = 1 Me moria sodium 100 6-13 cap, PO, l MG Extended 13:26: TID, # 90 H ermann Release 00 cap, 1 Capsule Refill(s) [Dilantin] VYVANSE 40 Yes 1{tbl} Take 1 MD mg capsule 9-19 tablet by Andrea rosario 00:00: mouth n 00 daily. Immunizations Ordered Immunization Filled Immunization Date Status Commen ts Source Name Name FLUCELVAX QUAD PF 2020-02-06 Completed Lynco 00:00:00 [facility] Influenza Split Completed MD Charles on 00:00:00 Vital Signs Vital Name Observation Time Observation Value Comments Source Systolic blood 2020-02-08 15:49:49 130 mm[Hg] Murray mitchell [facility] pressure Diastolic blood 2020-02-08 15:49:49 61 mm[Hg] Kaylen garcia [facility] pressure Heart rate 2020-02-08 15:49:49 77 /min [place] [facility] Body temperature 2020-02-08 15:49:49 36.72 Staci [place] [facility] Respiratory rate 2020-02-08 15:49:49 17 /min [place] [facility] Oxygen saturation in 2020-02-08 15:49:49 95 /min [place] [facility] Arterial blood by Pulse oximetry Body weight 2020-02-08 04:47:48 99.837 kg Turner [facility] BMI 2020-02-08 04:47:48 35.53 kg/m2 Turner [facility] Body height 2020-02-04 01:01:00 167.6 cm [place] [facility] Systolic (mm Hg) 2018-12-23 18:03:00 Unruly rial [place] Diastolic (mm Hg) 2018-12-23 18:03:00 Mem orial [place] Heart Rate 2018-12-23 18:03:00 Memorial Ricardo Respitory Rate 2018-12-23 18:03:00 Memori al Ricardo Height 2018-12-23 18:03:00 167.64 cm Memorial [place] Weight 2018-12-23 18:03:00 Memorial Ricardo BMI Calculated 2018-12-23 18:03:00 Memori al [place] BMI Calculated 2018-11-27 15:59:00 Memori al [place] Weight 2018-11-27 15:59:00 Memorial Ricardo Height 2018-11-27 15:59:00 167.64 cm Memorial [place] Heart Rate 2018-11-27 15:59:00 Memorial [place] Respitory Rate 2018-11-27 15:59:00 Memori al Ricardo Systolic (mm Hg) 2018-11-27 15:59:00 Unruly rial [place] Diastolic (mm Hg) 2018-11-27 15:59:00 Mem orial [place] BMI Calculated 2018-10-16 14:19:00 Memori al Ricardo Weight 2018-10-16 14:19:00 Memorial Ricardo Height 2018-10-16 14:19:00 167.64 cm Memorial Ricardo Heart Rate 2018-10-16 14:19:00 Memorial Ricardo Respitory Rate 2018-10-16 14:19:00 Memori al [place] Systolic (mm Hg) 2018-10-16 14:19:00 Unruly rial [place] Diastolic (mm Hg) 2018-10-16 14:19:00 Mem orial [place] BMI Calculated 2018-10-01 13:18:00 Avery Garza Weight 2018-10-01 13:18:00 Cassie Ricardo Height 2018-10-01 13:18:00 167.64 cm Memorial Ricardo Respitory Rate 2018-10-01 13:18:00 Avery Garza Heart Rate 2018-10-01 13:18:00 Cassie Lrann Systolic (mm Hg) 2018-10-01 13:18:00 Unruly vang Ricardo Diastolic (mm Hg) 2018-10-01 13:18:00 Mem orial [place] Procedures Procedure Date / Time Performed Performing Clinician Sourc e VENIPUNC NEED PHYS 2020-02-08 10:39:11 Familia Colon ethodist SKILL,DX OR RX US DUPLEX VENOUS UPPER 2020-02-07 17:26:50 Michael Maddox EXTREMITY RIGHT VENIPUNC NEED PHYS 2020-02-07 09:18:07 Javier Kolb SKILL,DX OR RX HC COMPLETE BLD COUNT 2020-02-07 05:00:00 Michael Maddox W/AUTO DIFF BASIC METABOLIC PANEL 2020-02-07 05:00:00 Michael Maddox ESTIMATED GFR 2020-02-07 05:00:00 Michael Maddox HC COMPLETE BLD COUNT 2020-02-06 06:18:00 Michael Maddox W/AUTO DIFF BASIC METABOLIC PANEL 2020-02-06 06:18:00 Michael Maddox ESTIMATED GFR 2020-02-06 06:18:00 Mcihael Maddox XR CHEST 1 VW PORTABLE 2020-02-05 21:27:51 Michael Maddox ECG 12-LEAD 2020-02-05 21:12:53 Michael Maddox HC COMPLETE BLD COUNT 2020-02-05 06:00:00 Michael Maddox W/AUTO DIFF BASIC METABOLIC PANEL 2020-02-05 04:00:00 Michael Maddox ESTIMATED GFR 2020-02-05 04:00:00 Michael Maddxo IGG SYNTHESIS RATE STUDY 2020-02-04 11:00:00 Michael Maddox IR LUMBAR PUNCTURE 2020-02-04 10:00:00 Andressa Givens CSF CULTURE 2020-02-04 09:56:00 Andressa Givens Me thodist FUNGUS CULTURE 2020-02-04 09:56:00 Andressa Givens Me thodist AFB CULTURE 2020-02-04 09:56:00 Andressa Givens Me thodist CRYPTOCOCCAL ANTIGEN 2020-02-04 09:56:00 Andressa Givens [facility] SCREEN GRAM STAIN 2020-02-04 09:56:00 Kim Guevara CSF CELL COUNT WITH 2020-02-04 09:56:00 Andressa Givens n [facility] DIFFERENTIAL GLUCOSE LEVEL, CSF 2020-02-04 09:56:00 Andressa Givens IGG SYNTHESIS RATE STUDY 2020-02-04 09:56:00 Andressa Givens VDRL, CSF SCREEN 2020-02-04 09:56:00 Andressa Givens M ethodist LYME DISEASE REFLEXIVE 2020-02-04 09:56:00 Andressa Givens [facility] PANEL, CSF ENTEROVIRUS BY PCR 2020-02-04 09:56:00 Andressa Givens HERPES SIMPLEX VIRUS BY 2020-02-04 09:56:00 Andressa Givens PCR VARICELLA ZOSTER BY PCR 2020-02-04 09:56:00 Andressa Givens FLOW CYTOMETRY EVALUATION 2020-02-04 09:56:00 Andressa Givens OLIGOCLONAL BANDING, CSF 2020-02-04 09:56:00 Kim Guevara MISCELLANEOUS REFERRAL 2020-02-04 09:56:00 Kim Guevara TEST EEG AWAKE/ASLEEP LESS 2020-02-04 07:19:32 ToshaSunnyruizangela Sheryl murphy [facility] THAN 41 MIN ECG 12-LEAD 2020-02-04 04:50:41 Manan Hernández BLOOD CULTURE, AEROBIC & 2020-02-04 01:50:00 Aldo Pineda ANAEROBIC BLOOD CULTURE, AEROBIC & 2020-02-04 01:40:00 Aldo Pineda ANAEROBIC HC COMPLETE BLD COUNT 2020-02-04 01:40:00 Aldo Pineda on [facility] W/AUTO DIFF BASIC METABOLIC PANEL 2020-02-04 01:40:00 Aldo Pineda on [facility] ESTIMATED GFR 2020-02-04 01:40:00 Kim Guevara URINE CULTURE 2020-02-04 00:56:00 Kim Guevara URINALYSIS SCREEN AND 2020-02-04 00:56:00 Manan Hernández MICROSCOPY, WITH REFLEX TO CULTURE URINE DRUGS OF ABUSE 2020-02-04 00:56:00 Manan Hernández SCREEN COVID-19 QUALITATIVE PCR 2020-02-03 23:41:00 Kim Guevara MRI BRAIN & ORBIT W WO 2020-02-03 22:12:00 Manan Hernández CONTRAST MRI CERVICAL SPINE W 2020-02-03 22:12:00 Manan Hernández CONTRAST MRI THORACIC SPINE W 2020-02-03 22:12:00 Manan Hernández CONTRAST CYTOLOGY 2020-02-03 20:17:00 Michael Maddox (NON-GYNECOLOGICAL) REQUEST COMPREHENSIVE METABOLIC 2020-02-03 18:35:00 Manan Hernández PANEL ESTIMATED GFR 2020-02-03 18:35:00 Kim Guevara HC COMPLETE BLD COUNT 2020-02-03 18:25:00 Manan Hernández W/AUTO DIFF ELMER 2020-02-03 18:25:00 Manan Hernández FOLATE LEVEL 2020-02-03 18:25:00 Manan Hernández VITAMIN B12 LEVEL 2020-02-03 18:25:00 Manan Hernández C-REACTIVE PROTEIN 2020-02-03 18:25:00 Manan Hernández [facility] HOMOCYSTINE, PLASMA 2020-02-03 18:25:00 Manan Hernández [facility] CORTISOL LEVEL, RANDOM 2020-02-03 18:25:00 Manan Hernández SEDIMENTATION RATE 2020-02-03 18:25:00 Manan Hernández [facility] RHEUMATOID FACTOR 2020-02-03 18:25:00 Manan Hernández THYROID STIMULATING 2020-02-03 18:25:00 Manan Hernánedz HORMONE T4, FREE 2020-02-03 18:25:00 Manan Hernández T3 2020-02-03 18:25:00 Manan Hernández SYPHILIS TOTAL ANTIBODY 2020-02-03 18:25:00 Manan Hernández HIV AG/AB COMBINATION 2020-02-03 18:25:00 Manan Hernández VITAMIN D 25 HYDROXY 2020-02-03 18:25:00 Manan Hernández LEVEL B. BURGDORFERI ABS TOTAL, 2020-02-03 18:25:00 Manan Hernández SERUM CT HEAD WO CONTRAST 2020-02-03 16:14:55 Manan Hernández HCG QUANTITATIVE, SERUM 2020-02-03 14:27:00 Manan Hernández Tubal ligation [facility] Plan of Care Planned Activity Planned Date Details Comments Source Future Scheduled 2023-02-02 Screening for [place] Me [facility]odist Test 00:00:00 malignant neoplasm of cervix (procedure) [code = 218798297] Encounters Start End Encounter Admission Attending Care Care Encounter Source Date/Time Date/Time Type Type Clinicians Facility Department ID 2020-02-03 2020-02-08 Inpatient [place], [facility] [id number] [place] 00:00:00 00:00:00 MICHAEL [address] 2020-01-17 2020-01-17 Outpatient STLMLC STLMLC [id number] [facility]00 [facility] Outpat[facility] ent Clinics 2019-12-14 2019-12-14 [facility] [id number] [facility] 10:48:00 10:48:00 t [employer] [facility] l Medicine Outpati ent Clinics 2019-11-23 2019-11-23 [facility] [id number] [facility] 09:00:00 09:00:00 t [employer] [facility] Medicine Outpati ent Clinics 2019-11-23 2019-11-23 [facility] [id number] 08:05:00 08:05:00 t [facility] [employer] [facility] Medicine Outpati ent Clinics 2019-10-15 2019-10-15 [facility] [id number] 08:44:00 08:44:00 t [employer] [facility] Medicine Outpati ent Clinics 2019-09-07 2019-09-07 [facility] [id number] 11:56:00 11:56:00 t [facility] [employer] [place] [employer] [facility] Medicine Outpati ent Clinics 2019-08-13 2019-08-13 [facility] [id number] 10:20:00 10:20:00 t [employer] [facility] Medicine Outpati ent Clinics 2019-08-12 2019-08-12 [facility] [id number] 09:49:00 09:49:00 t [employer] [facility] Medicine Outpati ent Clinics 2019-06-15 2019-06-15 [facility] [id number] 15:24:00 15:24:00 t [employer] [facility] Medicine Outpati ent Clinics 2019-06-09 2019-06-09 [facility] [id number] 08:40:00 08:40:00 t [facility] [employer] [place] [employer] [facility] Medicine Outpati ent Clinics 2019-06-03 2019-06-03 [facility] [id number] 10:52:00 10:52:[address] Luke s - Drive [facility] Medicine Outpati ent Clinics 2019-05-28 2019-05-28 [facility] [id number] 16:20:00 16:20:[address] Luke s - Drive [facility] Medicine Outpati ent Clinics 2019-05-21 2019-05-22 Outpatient MISCHER MISCHER [id number] 14:44:00 23:59:59 00 2019-04-28 2019-04-28 [facility] [id number] 13:00:00 13:00:00 David Rick Marck 2019-01-01 2019-01-01 [facility] [id number] 15:32:00 15:32:[address] Luke s - Drive [facility] Medicine Outpati ent Clinics 2018-12-31 2018-12-31 [facility] [id number] [facility] 09:55:00 09:55:[address] Luke s - Drive [facility] Medicine Outpati ent Clinics 2018-12-30 2018-12-30 [facility] [id number] 13:25:00 13:25:[address] Luke s - Drive [facility] Medicine Outpati ent Clinics 2018-12-30 2018-12-30 [facility] [id number] 08:00:00 08:00:[address] Luke s - Drive [facility] Medicine Outpati ent Clinics 2018-12-29 2018-12-29 [facility] [id number] 09:42:00 09:42:[address] Luke s - Drive [facility] Medicine Outpati ent Clinics 2018-12-23 2018-12-23 Outpatient FAYE ChungMISCHER MISCHER [id number] 13:15:00 23:59:59 David Catrina Marck 2018-12-04 2018-12-04 [facility] [id number] 16:20:00 16:20:[address] Luke s - [facility] Medicine Outpati ent Clinics 2018-11-30 2018-11-30 [facility] [id number] 10:08:00 10:08:00 t [facility]gent [facility] L [facility] - Care [facility] Outpati ent Clinics 2018-11-27 2018-11-27 Outpatient DEDE ChungSCHER MISCHER [id number] 10:45:00 23:59:59 David 03 [facility] 2018-11-27 2018-11-27 [facility] [id number] 13:00:00 13:00:00 t [employer] s - [facility] Outpati ent Clinics 2018-10-29 2018-10-29 [facility] [id number] 10:40:00 10:40:00 t [employer] [facility] - [facility] Outpati ent Clinics 2018-10-16 2018-10-16 Outpatient DEDE ChungSCHER MISCHER [id number] 09:00:00 23:59:59 David 02 [facility] 2018-10-02 2018-10-02 Outpatient FAYE ChungMISCHER MISCHER [id number] 15:00:00 23:59:59 David 01 [facility] 2018-10-01 2018-10-01 Outpatient FAYE ChungMISCHER MHMISCHER [id number] 08:15:00 23:59:59 David 00 [facility] 2018-09-30 2018-09-30 [facility] [id number] 13:00:00 13:00:00 t [employer] [facility] - [facility] Outpati ent Clinics 2018-08-31 2018-08-31 [facility] [id number] 11:00:00 11:00:00 t [place] [facility] - [facility] Medicine Outpati ent Clinics 2018-07-27 2018-07-27 [facility] [id number] 13:54:00 13:54:00 t [employer] s - [facility] Outpati ent Clinics 2018-07-23 2018-07-23 [facility] [id number] 08:53:00 08:53:00 [facility] 2018-07-23 2018-07-23 [facility] [id number] 08:15:00 08:15:00 [facility] 2018-06-22 2018-06-22 [facility] [id number] 10:30:00 10:30:00 [facility] Outpati ent Clinics 2018-05-04 2018-05-04 [facility] [id number] 12:00:00 12:00:00 [facility] 2018-04-02 2018-04-02 [facility] [id number] 09:00:00 09:00:00 [facility] ent [facility] Results Test Description Test Time Test Comments Results Result Comments Source Miscellaneous referral test 2020-02-09 08:48:03 Test Item Value Reference Range Interpretation Comme nts [facility] test name (test code = JCV QUANT PCR 2566) [facility] test result (test code = see note JCV qPCR (CSF) TEST RESULT 1730) UNIT REF RANGE JCV qPCR Not Detecte d copies/mL Not Detected Assay Range: 72 copies/mL to 1.00E+08 copies /mL The limit of quantitation (L OQ) is 72 copies/mL. BETH virus DNA detec leon below the LOQ will be reported as Detected:<72 copies/mL. This test was developed and its performance lisandra racteristics determined by [employer]. It has not been cleared or appr glenn by the U.S. Food and Drug Admini stration. Results should be used in conjunction with clinical findin gs, and should not form the sole basis for a diagnosis or treatment decis ion. Performed at: [employer] [facility] [address] [facility], KATERIN Tompkins [facility] culture, aerobic & [id number] 05:33:06 Test Item Value Reference Range Interpretation Comments Blood culture No growth Specimen isolate (test after 5 days InformationSpe cimen code = 600-7) of Source: BloodS pecimen incubation. Site: [facility], right Lynco MethodistLyme disease reflexive panel, [id number] 23:48:04 Test Item Value Reference Range Interpretation Comments B. burgdorferi Abs 0.08 <=0.99 When the Borrelia DARSHANA, CSF (test code burgdo rferi Abs, Total by = 69545-5) DARSHANA result is negative, no further test ing is done.INTERPRETI VE INFORMATION: Lalit rrelia burgdorferi Abs , DARSHANA, CSF 0.99 REJI or les s: ......... Negat ingris - Antibody to B . burgdorferi not detected. 1.00 - 1.20 REJI ........... Equ ivocal - Repeat testing in 10-14 days may be hel pful. 1.21 REJI or greater: ...... Positive - Prob able presence of a ntibody to B. burgdorferi detected.The de tection of antibodies to B . burgdorferi in cerebrospinal f luid may indicate centra l nervous system infectio n. However, consid eration must be given t o possible contamination b y blood or transfer of ser um antibodies acro ss the blood-brain barrier.Current CDC recommendations for the serologic diagn osis of Lyme disease ar e to screen with a polyvale nt DARSHANA test and confir m equivocal and positive re sults with immunoblot. Lalit th IgM and IgG immunoblots should be performed on sa mples less than [address] appearance of e rythema migrans. Only IgG immunoblot shou ld be performed on sa mples greater than 4 weeks after the disease ons et. IgM immunoblot in t he chronic stage is not re commended and does not ai d in the diagnosis of neuroborreliosi s or chronic Lyme di sease. Please submit r equests for appropriate imm unoblot testing within 10 days. Test developed and characteristics determined by BENITA stone. See Compliance Stat ement B: [employer] erformed By: BENITA khal[address] [place] [id number] or Director: Nai Rushing MD [facility],DX OR [id number] 10:39:11CFamilia hickey RN 02/08/2020 10:40 AMMidline Date/Time: 02/08/2020 10:39 AMPerformed by: Familia Colon, RNAuthorized by: Michael Maddox MD Consent: Consent obtained: Verbal Consent given by: Patient Risks discussed: Arterial puncture, incorrect placement, nerve damage, infection, bleeding, superficial thrombus and deep vein thrombus Alternatives discussed: Delayed treatment and alternative treatmentUniversal protocol: Procedure explained and questions answered to patient or proxy's satisfaction: yes Relevant documents present and verified: yes Test results available and properly labeled: yes Imaging studies available: yes Required blood products, implants, devices, and special equipment available: yes Site/side marked: yes Immediately prior to procedure, a time out was called: yes Patient identity confirmed: Verbally with patient, hospital-assigned identification number and arm bandPre- procedure details: Hand hygiene: Hand hygiene performed prior to insertion Sterile barrier technique: All elements of maximal sterile technique followed Skin preparation: ChloraPrep Skin preparation agent: Dried prior to procedure Anesthesia (see MAR for exactdosages): Anesthesia method: Local infiltration Local anesthetic: Lidocaine 1% w/o epi Route administered: SubcutaneousMidLine Placement Details (Will create an LDA): Patient position: Flat Vessel Size (mm): 5 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 IV therapy Location: Left basilic Device Type:Non-valved Catheter Lumen(s): Single lumen Catheter size: 3 Fr Catheter to vein ratio: 24%MidLine Characteristics: Catheter Brand: SL PROVENA MIDLINE Internal Catheter Length (cm): 12 TotalCatheter Length (cm): 12 Catheter Lot Number: [id number] Catheter Expiration Date: 2Procedure details: Landmarks identified: yes Ultrasound guidance: yes Sterile ultrasound techniques: Sterile gel and sterile probe covers were used Number of attempts: 1 Number of MidLine kits used during procedure: 2 Extra guide wire required?: Yes Purpose of procedure: Midline Placement Patency/Placement: Flushes without difficulty, flushed with 10 mL normal saline, positive blood return, injection cap placed and ultrasound MidLine placed utilizing ultrasound-guided Modified Seldinger Technique: Yes Dressing/Securement: Antimicrobial dressing dry and intact, antimicrobial dress ing applied and catheter securement device Blood Loss Amount: Less than 20 mLPost-procedure details: Post-procedure: Dressing applied Patient tolerance of procedure: Tolerated well, no immediatecomplicationsLynco MethodistVDRL, CSF [id number] 02:23:37 Test Item Value Reference Range Interpretation Comments VDRL, CSF screen (test code = Non-reactive Non-reactive 3046) Lynco Elpidio duplex venous upper [id number] 22:03:00Interface, Radiology Results In - 02/07/2020 10:03 PM CDT Vascular Ultrasound Laboratory Upper Extremity Venous [address] [place] [address] Pat.Name: SAPNA PARRA Pat.ID: [id number] St.Date: 02/07/2020 Refer.MD: MICHAEL MADDOX MD Exam Time: 4:33:00 PM Study Type:UE Venous Height: 66in Weight: 220lb BSA: 2.08 m2 Age: 7 1985,34Y Sex: FEMALE Sonogrphr: Ryan Torres RVT Pat. Stat.:Inpatient Room: [address] Tape Vol: HV, CPT - 4: 33587 Echo Event ID:[id number] Order ID: [id number] Reason for Study:Right arm pain and swelling. S/P midline removal on02/07/2020.Procedures: Colorflow, Grayscale/2D, Pulsed wave DopplerRace: D SUMMARY: DUPLEX SCAN OBSERVATIONS Right LeftIJ NormalSubclavian Normal NormalAxillary Normal Brachial Normal Basilic Obstructed Cephalic(FA) Normal RIGHT: The upper arm basilic vein is non-compressible with mixedechogenic material within the lumen. Colorflow and Doppler signals areabsent. All other remaining veins are patetnt. LEFT: There is normal compressibility and no evidence of echogenicmaterial noted within the lumen of the subclavian vein. Colorflow andDoppler signals are normal. PRELIMINARY FINDINGS1. Obstructed superficial venous thrombosis of right upper arm basilicvein.2. No evidence of deep venous thrombosis of the visualized veins.Result given to EBONIE Husain at 17:30 PM on 02/07/2020.PHYSICIAN INTERPRETATION Venous examination of the right upper extremity and neck demonstratedno evidence of deep venous thrombosis.Obstructed superficial venous thrombosis of right upper arm basilicvein. FINDINGS:-- Signed 02/07/2020 10:03 PMChaz Obrien MD, [facility] MethodistOligoclonal banding, [id number] 15:44:13 Test Item Value Reference Range Interpretation Comments Protein, CSF (test code 24 mg/dL 15-45 = 2880-3) Prealbumin, CSF (test 6.4 % 3.5-11.1 code = 51948-7) Albumin, CSF (test code 66.1 % 40.8-66.2 = 93706-7) Alpha 1, CSF (test code 2.4 % 2.3-6.4 = 44404-8) Alpha 2, CSF (test code 6.1 % 6.1-12.6 = 63860-7) Beta, CSF (test code = 13.1 % 11.7-24.1 50665-7) Gamma, CSF (test code = 5.9 % 5.6-12.2 58714-6) CSF extended See Comment An essentially interpretation (test normal CSF protein code = 61387-2) study. No oligoclonal ban ds seen. CSF interpretation See Comment Miguel Boyd, PhD; (test code = 1163) MD Turner Tafoya MethodistEnterovirus by [id number] 15:38:15 Test Item Value Reference Range Interpretation Comments Enterovirus PCR (test See link below Not-Detected Case Number: code = 22250-3) for PDF Lab [id number] Report Turner WorleyEpstein Bates Virus (EBV) by [id number] 15:13:17 Test Item Value Reference Range Interpretation Comments Albert Bates Not-Detected Not-Detected virus, PCR (test copies/mL code = 5005-4) Albert Bates See link below Case Number: virus, PCR (test for PDF Lab [id number] code = 1340) Report Turner WorleyVaricella zoster by [id number] 14:54:16 Test Item Value Reference Range Interpretation Comments VZV result (test Not-Detected Not-Detected code = 59449-1) copies/mL Varicella zoster, See link below Case Num rupal: pcr (test code = for PDF Lab [id number] 2 124) Report Turner WorleyCSF [id number] 14:08:32 Test Item Value Reference Range Interpretation Comments CSF culture No growth Specimen isolate (test after 3 days. InformationSp ecimen code = 606-4) Source: CSF (S naseem Fluid)Specimen Site: CSF (spinal fluid) Turner WorleyFlow cytometry [id number] 09:52:18 Test Item Value Reference Range Interpretation Comments Case number (test code = [id number]) Flow cytometry evaluation See link below for (test code = 0019678) PDF Lab Report Turner WorleyVENIPUNC NEED PHYS SKILL,DX OR [id number] 09:18:07Javier Kolb RN 02/07/2020 9:21 AMMidline Date/Time: 02/07/2020 9:18 AMPerformed by: Javier Kolb, RNAuthorized by: Michael Maddox MD Consent: Consent obtained: Verbal Consent given by: Patient Risks discussed: Arterial puncture, incorrect placement, nerve damage, bleeding, infection, pneumothorax, superficial thrombus and deep vein thrombus Alternatives discussed: No treatment, delayed treatment, alternative treatment, observation and referralUniversal protocol: Procedure explained and questions answered to patient or proxy's satisfaction: yes Relevantdocuments present and verified: yes Test results available and properly labeled: yes Imaging studies available: yes Required blood products, implants, devices, and special equipment available:yes Site/side marked: yes Immediately prior to procedure, a time out was called: yes Patient identity confirmed: Arm band and hospital-assigned identification numberPre-procedure details: Hand hygiene: Hand hygiene performed prior to insertion Sterile barrier technique: All elements of maximal sterile technique followed Skin preparation: ChloraPrep Skin preparation agent: Dried prior to procedure Anesthesia (see MAR for exact dosages): Anesthesia method: Local infiltration Local anesthetic: Lidocaine 1% w/o epi Route administered: SubcutaneousMidLine Placement Details (Will create an LDA): Patient position: Flat Vessel Size (mm): 4 Indication: Poor venous accessLocation: Right basilic Device Type: Non-valved Catheter Lumen(s): Double lumen Catheter size: 5 Fr Catheter to vein ratio: 41%MidLine Characteristics: Catheter Brand: [employer] External Catheter Length (cm): 0 Internal Catheter Length (cm): 12 Total Catheter Length (cm): 12 Catheter Lot Number: [id number] Catheter Expiration Date: 1Procedure details: Landmarks identified: yes Ultrasound guidance: yes Sterile ultrasound techniques: Sterile gel and sterile probe covers were used Number of attempts: 1 Number of MidLine kits used during procedure: 1 Extra guide wire required?: No Purpose of procedure: Midline Placement Patency/Placement: Flushes without difficulty, flushed with 10 mL normal saline, injection cap placed and positive blood return MidLine placed utilizing ultrasound-guided Modified Seldinger Technique: Yes Dressing/Securement: Dressing dry and intact, antimicrobial dressing dry and intact, antimicrobial dressing applied and catheter securement device Blood Loss Amount: Less than 20 mLPost-procedure details: Post-procedure: Dressing applied Patient tolerance of procedure: Tolerated well, no immediate complicationsLynco MethodistBasic metabolic [id number] 08:30:51 Test Item Value Reference Range Interpretation Comments Sodium (test code = 2951-2) 138 135- 148 mEq/L Potassium (test code = 2823-3) 3.9 3.5- 5.0 mEq/L Chloride (test code = 2075-0) 101 98- 112 mEq/L CO2 (test code = 2027-9) 24 24- 31 mEq/L Anion gap (test code = 59850-7) 13@ANIO 7- 15 mEq/L BUN (test code = 3094-0) 18 mg/dL 6-20 Creatinine (test code = 2160-0) 0.70 mg/dL 0.5-0.9 Glucose (test code = 2345-7) 103 mg/dL 65-99 H Calcium (test code = 79740-0) 8.4 mg/dL 8.3-10.2 Lab Interpretation (test code = Abnormal 86193-7) Turner MethodistEstimated [id number] 08:30:51 Test Item Value Reference Range Interpretation Comments Estimated GFR (test >=90 mL/min/1.73 m2 Hal pulliam Units code = 5488) InterpretationG 1 >=90 Normal or highG2 60-89 Mildly zdtwgycseL0i 45-59 Mildly to mode rately czbqdbcigH5m 30-44 Moderately to severely decreasedG4 15-29 Severely decre asedG5 <15 Kidn ey failureThe eGFR was calculated morena dover the Chronic Kidney Disease Epidemiology Co llaboration (CKD-EPI) equat ion. Interpretation is based on recommendations of the National Kidney Foundation-Kidn ey Disease Outcomes Qualit y Initiative (NKF-KDOQI) pub lished in 2013. [place] MethodistB. burgdorferi Abs total, [id number] 08:01:42 Test Item Value Reference Range Interpretation Comments B. burgdorferi 0.98 0.00-1.20 INTERPRETIVE antibodies (test code = INFO RMATION: Borrelia 5060-9) Burgdorferi Abs ,Total by DARSHANA 0.99 REJI or Less: ...... Negative : Antibody to B. burgdorferi not detected. 1.00 - 1.20 REJI......... Eq uivocal: Repeat testing in 10-14 days may be hel pful. 1.21 REJI or Gre ater: ... Positive: Proba ble presence of an tibody to B. burgdorferi detected.Perfor med By: [facility] [address] [place], [place] [address]Z aboratory Director: Nai Rushing MD [facility]LEX[facility] with platelet and dmmdrqxbeqgs5710-74-52 07:57:58 Test Item Value Reference Range Interpretation Comments WBC (test code = 10385-9) 16.70 4.50- 11.00 k/uL H RBC (test code = 11840-0) 4.30 m/uL 4.2-5.5 HGB (test code = 718-7) 12.8 g/dL 12-16 HCT (test code = 4544-3) 38.2 % 37-47 MCV (test code = 787-2) 88.8 fL 82-100 MCH (test code = 785-6) 29.8 pg 27-34 MCHC (test code = 786-4) 33.5 g/dL 31-37 RDW - SD (test code = 40.9 fL 37-55 53064-8) MPV (test code = 42952-6) 12.3 fL 8.8-13.2 Platelet count (test code 197 150- 400 k/uL = 39382-6) Nucleated RBC (test code 0.00 /100 WBC = 10341-6) Neutrophils (test code = 74.7 % 39-69 H 79094-4) Lymphocytes (test code = 15.6 % 25-45 L 48488-8) Monocytes (test code = 6.6 % 0-10 51401-7) Eosinophils (test code = 0.0 % 0-5 36629-5) Basophils (test code = 0.3 % 0-1 35622-2) Immature granulocytes 2.8 % 0-1 H "Immat ure (test code = 90011-7) granul ocytes" (promyelocytes, myelocytes, metamyelocytes) Lab Interpretation (test Abnormal code = 46667-3) Turner MethodistECG 12 [id number] 12:49:19 Test Item Value Reference Range Interpretation Comments Ventricular rate (test 78 code = 253) Atrial rate (test code 78 = 255) WA interval (test code 144 = 266) QRSD interval (test 84 code = 260) QT interval (test code 382 = 264) QTC interval (test code 435 = 265) P axis 1 (test code = 52 267) QRS axis 1 (test code = 52 268) T wave axis (test code 40 = 270) EKG impression (test Normal sinus code = 273) rhythm-Normal ECG-In automated comparison with ECG of 04-FEB-2020 04:50,-No significant change was found- Lynco MethodistXR Chest 1 [id number] 22:09:52Hm Interface, Radiology Results Incoming - 02/05/2020 10:12 PM CDTEXAMINATION: XR CHEST 1 PORTABLECLINICAL HISTORY: 34 years Female chest pressure on exertionCOMPARISON: None.IMPRESSION:No acute cardiopulmonary disease.FINDINGS:The cardiomediastinal silhouette, lungs, and regional skeletal structures are within normal limits for age. [facility]-[id number] MethodistHerpes simplex virus by [id number] 20:12:15 Test Item Value Reference Range Interpretation Comments Herpes virus, PCR Not-Detected Not-Detected (test code = 01881-8) Herpes virus, PCR See link below Case Num rupal: (test code = 1523) for PDF Lab [id number] Report [place] MethodistCytology (non-gynecological) [id number] 18:15:16 Test Item Value Reference Range Interpretation Comments Case number (test code = [id number]) Cytology See link below for (non-gynecological) PDF Lab Report report (test code = 1178) Result status (test code This is Final Report = [id number]) for [id number] [place] MethodistCryptococcal antigen, [id number] 17:47:33 Test Item Value Reference Interpretation Comments Range Cryptococcal Ag Negative - No Specimen (test code = Cryptococcus InformationSpec imen 9820-2) antigen detected. Source: CS F (Spinal Fluid)Specimen Site: CSF (spinal flu id) Turner WhatleyCoibfjwqsYZW5604-28-04 13:52:17 Test Item Value Reference Range Interpretation Comments ELMER screen (test Negative Negative Test perfor med using NOVA code = 550) Lite DAPI ELMER k it (Indirect Immunofluoresce nce Assay) for Anti-Nuclea r Antibody on [employer] QUANTA-Ly ser 160 Analyzer. [facility] cell count with aayfjlzesupg3715-42-91 13:21:52 Test Item Value Reference Range Interpretation Comments Color, CSF (test code = Colorless 26490-2) Appearance, CSF (test Clear Correc leon result code = 72365-9) called to Maximiliano Mallory/Stefano T18 02/04/2020 13: 21 Corrected resul t; previously repo rted as Slightly haz y on 02/04/2020 at 1 1:19 by DH2 RBC, CSF (test code = 33 0- 1 /CMM H 30316-0) WBC, CSF (test code = 1 0- 5 /CMM 81888-0) CSF mononuclear cell 1/CMM (test code = 99929-9) Lab Interpretation (test Abnormal code = 03205-1) Turner WorleyIgG synthesis rate [id number] 13:09:21 Test Item Value Reference Range Interpretation Comments IgG albumin ratio, SEE COMMENT 0.00-0.23 Footnote- -------- CSF (test code = 1588) IgG index, CSF SEE COMMENT 0.01-0.63 Footnote----- ---- (test code = 83733-1) IgG synthetic rate SEE COMMENT -9.90 - 3.30 mg-day Fo otnote--------- (test code = 45824-9) Q-albumin ratio, SEE COMMENT 2.00-7.50 Footnote--- ------ CSF (test code = 1756-6) IgG, CSF (test code SEE COMMENT 1-3 Footnote --------- = 2464-6) Albumin, CSF (test SEE COMMENT 02-17 Footnote- -------- code = 18091-3) IgG (test code = SEE COMMENT 700-1600 Footnote--- ------Cor 2465-3) rected result; previously repo rted as 852 on 02/03 at 12:58 by I/A CT Albumin, S (test SEE COMMENT [id number] Footnote--- ------DUP code = 54114-3) LICATE ORDER.Corrected result; previou sly reported as 370 0.0 on 02/04/2020 a t 12:58 by I/AUT Turner MethodistGram [id number] 12:47:25 Test Item Value Reference Range Interpretation Comments Gram stain No WBC's or Specimen isolate (test organisms seen. Information Specimen code = 1469) Source: CSF (Sp inal Fluid)Specimen Site: CSF (spinal fluid) Turner WorleyGlucose level, [id number] 11:17:32 Test Item Value Reference Range Interpretation Comments Glucose, CSF (test code = 2342-4) 90 mg/dL 40-70 H Lab Interpretation (test code = Abnormal 01196-0) Turner MethodistEEG (routine)2020-02-04 10:51:25EEG AWAKE AND ASLEEP Date of Service: 02/04/2020 Awake Recording: The occipital dominant rhythm is 10-11 Hz. 18-22 Hz activity is present in all regions. Sleep Recording: No epileptiform activity was recorded. Hyperventilation: No abnormality elicited. Photic Stimulation: No abnormality elicited. Impression The background activity is within the range of normal variation. No lateralized or epileptiform activity was recorded. ICD-10 Code: [id number] MethodistIR Lumbar Puncture by Radiology 2020-02-04 10:23:15Hm Interface, Radiology Results 02/04/2020 10:26 AM CDTEXAMINATION: IR LUMBAR PUNCTURECLINICAL HISTORY: meningitis versus leukemia versus demyelinationCOMPARISON: None.Findings:Informed consent was obtained. Lower back was prepped and draped in usual sterile fashion. 1% lidocaine was used for local anesthesia. A 22-gauge 5 inch needle was advanced into spinal canal at the L2-3 level under intermittent fluoroscopic guidance. Opening pressure was 21 cm of water.12 cc of clear CSF fluid was withdrawn. Patient complained of radiculopathy after 12 cc of fluid was withdrawn.No complications.Total fluoroscopic time was 0.2 minutes. Total air kerma was 5 mGy.IMPRESSION:Successful fluoroscopic guided lumbar puncture.Opening pressure was 21 cm of water.[facility]-[id number] MethodistCOVID-19 qualitative PCR 2020-02-04 05:24:14 Test Item Value Reference Range Interpretation Comments Interpretation (test Negative results do code = 6354814) not preclude 2019-nCoV infection and should not be used as the sole basis for treatment or other patient management decisions. Negative results must be combined with clinical observations, patient history, and epidemiological information. COVID-19 qualitative Not-Detected Not-Detected PCR result (test code = 35782-7) COVID-19 qualitative See link below for C ase Number: PCR (test code = PDF Lab Report [id number]) Lynco MethodistUrinalysis screen and microscopy, with reflex to culture 2020-02-04 05:13:36 Test Item Value Reference Range Interpretation Comments Specimen site (test code = Clean catch 8551429) Color, UA (test code = 5778-6) Yellow Appearance, UA (test code = Clear 5767-9) Specific gravity, UA (test code = 1.036 1.001-1.035 H 5811-5) pH, UA (test code = 5803-2) 5.0 5.0-8.5 Protein, UA (test code = 31622-5) 1+ Negative A Glucose, UA (test code = 10980-1) 1+ Negative A Ketones, UA (test code = 2514-8) Negative Negative Bilirubin, UA (test code = Negative Negative 5770-3) Blood, UA (test code = 5794-3) Negative Negative Nitrite, UA (test code = 5802-4) Negative Negative Urobilinogen, UA (test code = <2.0 <2.0 02214-9) Leukocyte esterase, UA (test code Negative Negative = 5799-2) Epithelial cells, UA (test code = 2 /HPF 5787-7) WBC, UA (test code = 5821-4) <1 0- 4 /HPF RBC, UA (test code = 78726-2) None seen 0- 5 /HPF Bacteria, UA (test code = None seen None seen 93576-2) Yeast, UA (test code = 54245-9) Few A Yeast with pseudohyphae, UA (test None seen code = 40054-1) Hyaline casts, UA (test code = 4 /LPF 5796-8) Lab Interpretation (test code = Abnormal 56701-3) Lyn[facility]ortaJer[facility] drugs of abuse [id number] 03:10:50 Test Item Value Reference Interpretation Comments Range Amphetamine screen, Negative urine (test code = 3349-8) Barbiturate screen, Negative urine (test code = 3377-9) Benzodiazepine Negative screen, urine (test code = 3390-2) Cocaine screen, Negative urine (test code = 3397-7) Methadone Negative metabolite (EDDP), urine (test code = 26379-3) Opiates screen, Positive A urine (test code = 7489-4) Oxycodone screen, Negative urine (test code = 94764-3) Phencyclidine Negative screen, urine (test code = 3936-2) Tricyclic screen, Negative urine (test code = 30491-5) Cannabinoid screen, Negative Drug scr een minimum urine (test code = concentra tion of 3427-2) detectabilityAm phetamines 1000 ng/mLBarbiturat es 200 ng/mLBe nzodiazepines 300 ng/mLCocaine 300 ng/mLMethadone 300 ng/mLOp iates 300 ng/mLOxycodone 300 ng/mLPh encyclidine 25 ng/mLCannabinoi ds 50 ng/mLTr icyclics 1000 ng/mLResults are from screen ing tests and should only be used for medical evaluat ion. Drug testing for leg al purposes requires defini tive (or confirmatory) t esting methods, which are available upon request. C ontact the laboratory if d efinitive testing is requ ired. Lab Interpretation Abnormal (test code = 22119-1) Lynco MoravianUrine [id number] 02:50:08 Test Item Value Reference Range Interpretation Comments Urine culture (test SEE COMMENT Bacteriu kieran screen code = 7262208) negative. [facility] Thoracic Spine W [id number] 22:38:25Hm Interface, Radiology Results 02/03/2020 10:41 PM CDTEXAMINATION: MRI THORACIC SPINE W CONTRASTCLINICAL HISTORY: demyelinating lesionsCOMPARISON: NoneTECHNIQUE: Multiplanar multisequence pre and post contrast enhanced examination was performed of the thoracic spine.FINDINGS:ALIGNMENT: Nor mal.VERTEBRAE: No vertebral fracture. No degenerative marrow signal abnormality is present. No suspicious enhancement. PERIVERTEBRAL SOFT TISSUES: Normal.SPINAL CORD : Normal signal. No abnormal enhancement. Mild left paracentral disc protrusion at T8-T9 with no spinal canal or foraminal stenosis. Otherwise no significant posterior disc disease, spinal canal, subarticular zone or neural foraminal stenosis throughout the thoracic spine.There is no mass, adenopathy or aneurysm of the visualized softtissues. IMPRESSION: 1. No evidence of thoracic cord abnormal signal to suggest demyelinating lesions.2. Small left paracentral disc protrusion at T8-T9 with no stenosis.[id number] Brain & Orbit W Wo [id number] 22:36:27Hm Interface, Radiology Results 02/03/2020 10:39 PM CDTEXAMINATION: MRI BRAIN & ORBIT W WO CONTRASTCLINICAL HISTORY: Vision lossCOMPARISON: CT brain dated 02/03/2020.FINDINGS:Pre and postcontrast MRI of the brain and orbits is interpreted.The optic nerves, optic chiasm, and optic tracts are normal in size and signal intensity. There is no abnormal enhancement.The brain is normal in mo rphology and in signal intensity.There is no abnormal restricted diffusion.No extra-axial collectionor mass effect is seen.The major vascular flow-voids are preserved.IMPRESSION:Unremarkable MRI of the brain and orbits.[facility]-[id number] [facility]BR[facility] Cervical Spine W [id number] 22:33:20Hm Interface, Radiology Results 02/03/2020 10:36 PM CDTEXAMINATION: MRI CERVICAL SPINE WCONTRASTCLINICAL HISTORY: demyelinating lesionsCOMPARISON: None.FINDINGS: Postcontrast MRI of the cervical spine is interpreted.The cervical cord is normal in volume and signal intensity.There is no abnormal cervical cord enhancement.Bone marrow signal is normal.C2-3: Unremarkable.C3-4: Unremarkable.C4-5: Minimal disc degenerative changes.C5-6: Minimal disc degenerative changes.C6-7: Minimal disc degenerative changes.C7-T1: Unremarkable.The paraspinous soft tissues are unremarkable.IMPRESSION:No keagan dence of cervical cord demyelination.[facility]-[id number] MethodistVitamin D 25 hydroxy [id number] 20:37:03 Test Item Value Reference Range Interpretation Comments Vitamin D, 48.7 ng/mL 30-150 This assay repo rts the 25-hydroxy (test sum of 25-h ydroxy code = 1989-) vitamin D3 an d 25-hydroxy gokul min D2. Reference range :0-17 years:Deficienc y: less than 20ng/mLOpt imum level: greater than or equal to 20 ng/ mL.18 years and older:Deficienc y: less than 20ng/mLInsuffic iency: 20-29 ng/mLOpti mum Level: 30-80 ng /mLThe assay reportabl e range is 3.4 155.9 n g/mL. Levels higher t moreno 150 ng/mL may be as sociated with toxicity.I f toxicity is cli nically suspected and t he reported result is >155.9 ng/mL,co ntact lab for alternative methods to obtain a def initive level.If separa te quantitation of 25-hydroxy gokul min D3 and 25-hydroxy vitamin D2 is needed, p alfredito contact lab for alternative met hods. Turner WhatleyistSyphilis total [id number] 20:32:43 Test Item Value Reference Range Interpretation Comments Syphilis total Non-reactive Non-reactive No serologica l antibody (test code evidence of syphilis = 6194) infection. [facility] MethodginetteHIV Ag/Ab [id number] 20:28:37 Test Item Value Reference Range Interpretation Comments HIV Ag/Ab combination (test code Non-reactive Non-reactive = 5299) [facility] MethodginetteVitamin B12 [id number] 19:35:13 Test Item Value Reference Range Interpretation Comments Vitamin B12 (test 541 pg/mL 211-946 Significan t overlap code = 2132-9) exists betwee n normal and deficiency states.However, most patients with deficiencies wi ll have Serum B12 <2 00 pg/mL. [facility] MethodistFolate [id number] 19:35:13 Test Item Value Reference Range Interpretation Comments Folate (test code = 2284-8) 8.0 ng/mL 4.8-24.2 Turner Verdugoedimentation [id number] 19:34:55 Test Item Value Reference Range Interpretation Comments Sedimentation rate (test code = 7 0- 20 mm/hr 09864-7) [facility] ChacortaistT4, [id number] 19:25:51 Test Item Value Reference Range Interpretation Comments T4, free (test code = 3024-7) 1.0 ng/dL 0.9-1.7 [facility] [id number] 19:25:51 Test Item Value Reference Range Interpretation Comments T3 (test code = 3053-6) 70 ng/dL 80-200 L Lab Interpretation (test code = Abnormal 85551-2) [facility] MoravianCortisol level, [id number] 19:25:00 Test Item Value Reference Range Interpretation Comments Cortisol, random 2 ug/dL Reference R anges are not (test code = 2143-6) establi shed for non-timed Cortisol levels .Reference Range for Timed Cortisol: 6 - 10 AM 6 - 18 ug/dl 4 - 8 PM 3 - 11 ug/ dl Turner WorleyThyroid stimulating [id number] 19:25:00 Test Item Value Reference Range Interpretation Comments TSH (test code = 3016-3) 1.12 0.27- 4.20 uIU/mL Turner WorleyComprehensive metabolic [id number] 19:24:36 Test Item Value Reference Range Interpretation Comments Sodium (test code = 140 135- 148 mEq/L 2951-2) Potassium (test code = 3.8 3.5- 5.0 mEq/L 2823-3) Chloride (test code = 104 98- 112 mEq/L 2074-0) CO2 (test code = 2027-) 18 24- 31 mEq/L L Anion gap (test code = 18@ANIO 7- 15 mEq/L H 71439-2) BUN (test code = 3094-0) 16 mg/dL 6-20 Creatinine (test code = 0.62 mg/dL 0.5-0.9 0-0) Glucose (test code = 137 mg/dL 65-99 H 2345-7) Calcium (test code = 9.0 mg/dL 8.3-10.2 31616-8) Protein (test code = 7.2 g/dL 6.3-8.3 -[place] n 2885-2) 4.6-7.0 g/dL1 week 4.4-7 .6 g/dL7 months-1y ear 5.1-7 .3 g/dL1-2 years 5.6-7 .5 g/dL>3 years 6.0-8 .0 g/tE64-409 6.3-8 .3 g/dL Albumin (test code = 3.9 g/dL 3.5-5 1750-7) A/G ratio (test code = 1.2 0.7-3.8 1758-0) Alkaline phosphatase 57 U/L 35-104 (test code = 6768-6) AST (test code = 1920-8) 15 U/L 10-35 ALT (test code = 1742-6) 25 U/L 5-50 Total bilirubin (test 0.3 mg/dL 0-1.2 code = 1974-) Lab Interpretation (test Abnormal code = 94628-7) Turner MethodistC-reactive [id number] 19:21:52 Test Item Value Reference Range Interpretation Comments CRP (test code = 1987-) <0.30 0-0.5 Turner MethodisthCG quantitative, [id number] 19:20:00 Test Item Value Reference Range Interpretation Comments hCG quantitative, <1 0- 5 mIU/mL Reference range for HCG serum (test code = Quant ashutosh lies to males and 31717-0) non-fem ales.Post Menopausal 0.0 - 8.1 mIU/mL [facility] MethodistRheumatoid [id number] 19:14:45 Test Item Value Reference Range Interpretation Comments Rheumatoid factor (test code = 62322-0) <10 0- 13 IU/mL Lynco MethodistHomocystine, [id number] 19:14:45 Test Item Value Reference Range Interpretation Comments Homocysteine (test 6.4 umol/L 0-15 The risk for coronary code = 04101-8) vascular dis ease increases progressively w ith homocysteine concentration. A 3.4 times greater r isk is associated with a homocysteine concentration o f greater than 15.8 umol/L as jt red to a concentration below 14.1 umol/L. Lynco MethodistCT Head Wo [id number] 16:17:18Hm Interface, Radiology Results - 02/03/2020 4:20 PM CDTEXAM: CT HEAD WO CONTRASTCLINICAL H ISTORY: headache loss of vision concern for ICPTECHNIQUE: Noncontrast enhanced images of the brainwere obtained from the skull base to the vertex. Both soft tissue and bone reconstruction algorithmswere performed. CT scans are performed using radiation dose reduction techniques (iterative reconstruction and/or automated exposure control). Technical factors are evaluated and adjusted to ensure appropriate moderation of exposure. Automated dose management technology is applied to adjust radiationexposure while achieving a diagnostic quality image.COMPARISON: None.FINDINGS:The chun-white matterdifferentiation is preserved and without evidence of acute territorial infarction. There is no evidence for acute intracranial hemorrhage, mass, mass effect, hydrocephalus, or extra-axial fluid collection.Crowding of the foramen magnum secondary to mild cerebellar tonsillar ectopia.Orbits are unremarkable. Mild mucosal thickening identified in fairly within the right maxillary sinus. Remaining paranasal sinuses are clear. Mastoid air cells are normally pneumatized. Osseous structures are intact.IMPRESSION:No CT evidence for acute intracranial abnormality.[id number] Worley
--- OUTSIDE RECORDS SUMMARY | 2020-02-09 11:28 | XMS REPORT ---
:[address] [facility] Address [address] [place] [place] [address] Care Team Providers Name Role Phone Savage Unavailable [phone] PROBLEMS Type Condition ICD9-CM BFT22-BN Onset Condition SNOMED Code Notes Code Code Dates Status Problem Benign essential I10 Active 15602329 HTN Problem Anxiety F41.9 Active 44346694 Problem Dizziness R42 Active 919438815 Problem Allergic rhinitis J30.9 Active 43443870 Problem Palpitations R00.2 Active 31057109 Problem Gastritis K29.70 Active 5735328 Problem Hyperlipidemia E78.5 Active 79747999 Problem History of colonic Z86.010 Active 358355977 polyps Problem Stressful life Z63.79 Active events affecting family and household Problem GERD K21.9 Active 838702292 (gastroesophageal reflux disease) Problem Rectal bleeding K62.5 Active 81286649 Problem Incontinence R32 Active 33656474 Problem Hiatal hernia K44.9 Active 10295049 Problem Depression with F41.8 Active 667820827 anxiety Problem Stress N39.3 Active 51236497 incontinence Problem Urgency-frequency N32.81 Active 11753755 syndrome Problem Seasonal allergic J30.2 Active 835878241 rhinitis, unspecified trigger Problem Right anterior M25.561 Active 632821761 knee pain Problem 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 682949359 epilepsy without status epilepticus, unspecified epilepsy type Problem Nonintractable G40.909 Active 66826455 epilepsy without status epilepticus, unspecified epilepsy type Problem Elevated blood R03.0 Active 160499483 pressure reading without diagnosis of hypertension Problem Laryngitis J04.0 Active 61351293 Problem Attention deficit F90.2 Active 24539255 hyperactivity disorder (ADHD), combined type Problem Cough R05 Active 24344483 Problem 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 Active 43950388 Problem Tinnitus H93.19 Active 19569868 Problem 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 Problem Adult general Z00.00 Active 749013880 medical exam Problem Seizure disorder G40.909 Active 680466121 Problem Viral illness B34.9 Active 55013004 ALLERGIES Allergen (clinical drug Drug/Non Drug Allergy Reaction Allergy Type Onset Date Status ingredient) documented on EMR cephalexin Cephalexin([facility] Unknown Drug Allergy Active Code:[address]-94) ondansetron Zofran([facility] Unknown Drug Allergy Active Code:[address]-47) ENCOUNTERS from 1985 to 2020-01-19 Encounter Location Date Provider Diagnosis [facility] [address] [facility] Dec, [place] rry vision, right eye [facility] [address], [address] ; [place] [address] of right eye H 10.021 and Acute conjuncti vitis of right eye, unsp ecified acute conjuncti vitis type H10.31 IMMUNIZATIONS Vaccine Route Administration Date Status Kenalog (Triamcinolone) IM Intramuscular Jun 09, 2019 Adminis tered SOCIAL HISTORY Tobacco Use: Social History Observation Description Date Details (start date - stop date) Never Smoker Sex Assigned At : Social History Observation Description Sex Assigned At Unknown PHQ9 Question Answer Notes Little interest or pleasure in doing things Not at all Feeling down, depressed, or hopeless Several days Trouble falling or staying asleep or sleeping too much Sever al days Feeling tired or having little energy Not at all Poor appetite or overeating Not at all Feeling bad about yourself, or that you are a failure, or No t at all have let yourself or your family down Trouble concentrating on things, such as reading the Several days newspaper or watching television Moving or speaking so slowly that other people could have Se veral days noticed; or the opposite, being so fidgety or restless that you have been moving around a lot more than usual Total Score 4 Interpretation Minimal Depression Thoughts that you would be better off or of hurting Not at all yourself in some way Alcohol Screen Question Answer Notes Did you have a drink containing alcohol in the past Yes year? Points 1 Interpretation Negative How often did you have a drink containing alcohol in Monthly or less (1 point) the past year? Tobacco Use/Smoking Question Answer Notes Are you a never smoker REASON FOR REFERRAL No Information VITAL SIGNS No information MEDICATIONS Medication SIG (Take, Route, Start Date End Date Status Frequency, Duration) Trokendi XR 100mg By Mouth Active Flonase 50 MCG/ACT 1 spray in each nostril Active Nasally Once a day for 90 days Vyvanse 50 MG 1 capsule in the morning Sep, Ac tive Orally Once a day for 30 days Azelastine HCl 0.05 % 1 drop into affected eye Jul, Active Ophthalmic twice a day prn itchy eyes for 30 days Loestrin 1.5/30 (21) 1 tablet Orally Once a day Not-Taking 1.5-30 MG-MCG Singulair 10 MG 1 tablet in the evening A ctive Orally Once a day for 90 days Trileptal 300 MG 1 tablet Orally Twice a Active day Xanax 0.5 MG 1 tablet Orally once a day A ctive prn anxiety for 30 days Vyvanse 40 MG 1 capsule in the morning Nov, Ac tive Orally Once a day for 30 days PROCEDURES No Information RESULTS No Results REASON FOR VISIT possible pink eye, cloudy vision [phone] MEDICAL (GENERAL) HISTORY Type Description Date Medical History Dizziness Medical History Tinnitus Medical History Palpitations Medical History Anxiety Medical History Incontinence Medical History Hyperlipidemia Medical History Benign essential HTN Medical History Allergic rhinitis Medical History Leukemia Medical History Rectal bleeding Medical History Gastritis Medical History GERD (gastroesophageal reflux disease) Medical History Hiatal hernia Surgical History Lap Paula 09/02/2018 Surgical History Lap Appendectomy Surgical History EGD/Colonoscopy Surgical History Tubal Ligation Goals Section No Information Health Concerns No Information MEDICAL EQUIPMENT No Information MENTAL STATUS No Information FUNCTIONAL STATUS No Information ASSESSMENTS Encounter Date Diagnosis Notes Dec, [place] eye disease of right eye (ICD-10 - H10.021) Dec, Blurry vision, right eye (ICD-10 - H53.8 ) Dec, Acute conjunctivitis of right eye, unspe cified acute conjunctivitis type (ICD-10 - H10.31) PLAN OF TREATMENT Treatment Notes Assessment Notes Clinical Notes Blurry vision, right eye Advised to see eye doctor solo, pt will get in to see eye doctor as soon as possible.Recommend to have pressures in eyes checked to make sure no glaucoma or eye disesase. [place] eye disease of right eye could possilby be viral vs bacterial but due to change in vision blury and cloudy recommend to see eye doctor for eye exam. Acute conjunctivitis of right eye, =Patient complains of amandeep n of left unspecified acute conjunctivitis eye that began today 2 days type symptoms pink eye and blurry vision but denies any crustiness, sticking of eye lids, and pain of left eye mostly-Patient allergies do bother patient with nasal drainage, sneezing and watery eyes. Taking antihistamine and nasal spray. Has sinus drainage and allergies daily especially with this season. Next Appt Details prn Reason: Insurance Providers Payer Name Payer Payer Insured Name Patient Coverage Covera ge End Address Phone Relationship to Start Date Henrik e Insured [employer] [phone] Snow Argueta self 2018 and Jere [id number] [address] [place] [phone]
--- OUTSIDE RECORDS SUMMARY | 2020-02-09 11:28 | XMS REPORT ---
[...] syndrome N32.81 A ctive Medications Medication Code System Code Instructions Start End Date Status Dos age Date Linda [facility] [id number] 40 MG Orally Dec 13, Active 1 capsu le Once a day 2019 in the morning Results No Known Results Summary Purpose eClinicalWorks Submission
--- OUTSIDE RECORDS SUMMARY | 2020-02-09 11:28 | XMS REPORT ---
[...] Start End Date Status Dos age Date Azithromycin [facility] [id number] 500 MG Orally Nov 24, Dec 01, Active 1 tablet Once a day 2019 2019 Results No Known Results Summary Purpose eClinicalWorks Submission
[2020-02-09] MEDS ORDERED: KETOROLAC 30 MG/ML INJ ONE (11:55)
--- NOTE | 2020-02-09 12:28 | RAD REPORT ---
EXAM DESCRIPTION: RAD - Chest Single View - 02/09/2020 12:13 pm CLINICAL HISTORY: Chest pain;SOB COMPARISON: AP chest September 07, 2019 TECHNIQUE: AP portable chest image was obtained 02/09/2020 12:13 pm . FINDINGS: Lungs are clear. Heart and vasculature are normal. No measurable pleural effusion and no p neumothorax. No acute bony abnormality seen. No acute aortic findings suspected. IMPRESSION: No acute cardiopulmonary process. No suspicious change from comparison.
[2020-02-09 13:12] LABS: Absolute Lymphocytes (CBC) 3.5 K/uL (0.7-4.9); Basophils % 0.5 % (0-1.3); Hematocrit 41.9 % (36.0-45.0); Lymphocytes % 25.5 % (15.3-44.8); MPV 9.8 fL (7.6-11.3)
--- NOTE | 2020-02-09 13:16 | RAD REPORT ---
EXAM DESCRIPTION: US - UPPER EXTREMITY VENOUS UNILATE - 02/09/2020 12:41 pm CLINICAL HISTORY: Right arm pain and swelling, history of recent right arm thrombus COMPARISON: None available, history indicates recent diagnosis of right basilic vein thrombus. Patie nt is on blood thinners TECHNIQUE: Real-time sonographic evaluation of the right upper extremity deep venous systems was per formed. FINDINGS: Normal compressibility, flow augmentation, phasic flow and spontaneous flow are identified in the right upper extremity deep venous system. No intraluminal filling defect identifiable in the basilic vein OR any the other veins of the right upper extremity superficial and deep venous systems. Internal jugular and subclavian veins are normal as well. IMPRESSION: No DVT in the right upper extremity. No remnant thrombus identified in the right basilic vein.
[2020-02-09] MEDS ORDERED: PANTOPRAZOLE 40 MG INJ ONE (13:17)
[2020-02-09] MEDS ORDERED: PROMETHAZINE INJ 25 MG/ML AMP ONE (13:17)
[2020-02-09 13:22] LABS: Protime INR 0.91
[2020-02-09 13:27] LABS: ALT/SGPT 41 U/L (12-78); AST/SGOT 12 U/L (15-37); Albumin 3.5 g/dL (3.4-5.0); Alkaline Phosphatase 53 U/L (45-117); BUN Blood Urea Nitrogen 16 mg/dL (7-18); Bicarbonate 30 mmol/L (21-32); Bilirubin Direct 0.1 mg/dL (0-0.2); Bilirubin Total 0.4 mg/dL (0.2-1.0); Glucose Level 87 mg/dL (74-106); Magnesium 2.4 mg/dL (1.8-2.4); NT PRO-BNP 11 pg/mL (<125); Potassium 3.9 mmol/L (3.5-5.1); Protein, Total 6.9 g/dL (6.4-8.2); Sodium Level 136 mmol/L (136-145); Troponin (Emerg Dept Use Only) < 0.02 ng/mL (0.0-0.045)
[2020-02-09 13:54] LABS: Blood Morphology Comment NOT SEEN (NOT SEEN); Platelet Estimate ADEQ; White Blood Cell Scan OK (OK)
--- NOTE | 2020-02-09 14:57 | ER ---
Nurse's Notes [facility] Name: Snow Argueta Age: 34 yrs Sex: Female : 1985 Arrival Date: 02/09/2020 Time: 11:17 Bed 16 Private MD: Diagnosis: Other chest pain;Shortness of breath Presentation: 02/08 11:23 Chief complaint: Patient states: Discharged from [facility] last night. They ca1 were suspecting an Autoimmune disease. They found out I have a blood clot on my R arm. Was on blood thinning shots while at hospital but was not prescribed for at discharge. Since yesterday, has a R sided chest pain and R arm pain with SOB. Chest pain radiating to the R arm, dull and achy, constant. Has pain with breathing and dizziness with standing. Denies cough. Denies fever. Coronavirus screen: Client denies travel out of the [place] in the last 14 days. shortness of breath, Client presents with at least one sign or symptom that may indicate coronavirus-19. Standard/surgical mask placed on the client. Provider contacted for isolation considerations. The client reports previous COVID testing was negative. Date of collection: February 03, 2020. Ebola Screen: Patient negative for fever greater than or equal to 101.5 degrees Fahrenheit, and additional compatible Ebola Virus Disease symptoms Patient denies exposure to infectious person. Patient denies travel to an Ebola-affected area in the 21 days before illness onset. No symptoms or risks identified at this time. Initial Sepsis Screen: Does the patient meet any 2 criteria? No. Patient's initial sepsis screen is negative. Does the patient have a suspected source of infection? No. Patient's initial sepsis screen is negative. Risk Assessment: Do you want to hurt yourself or someone else? Patient reports no desire to harm self or others. Onset of symptoms was February 08, 2020. 11:23 Method Of Arrival: Wheelchair ca1 11:23 Acuity: LEONEL 3 ca1 Triage Assessment: 11:38 General: Appears in no apparent distress. comfortable, Behavior is calm, cooperative, ca1 appropriate for age. Pain: Complains of pain in anterior aspect of right upper chest and right arm Pain radiates to right arm Pain currently is 10 out of 10 on a pain scale. Quality of pain is described as aching, dull, Pain began 1 day ago. Is continuous, Also complains of shortness of breath. EENT: No signs and/or symptoms were reported regarding the EENT system. Neuro: Level of Consciousness is awake, alert, obeys commands, Oriented to person, place, time, situation. Cardiovascular: Heart tones S1 S2 present Capillary refill < 3 seconds Patient's skin is warm and dry. Respiratory: Reports shortness of breath Airway is patent Respiratory effort is even, unlabored, Respiratory pattern is regular, symmetrical, Breath sounds are clear bilaterally. Onset: The symptoms/episode began/occurred yesterday, GI: Abdomen is round non-distended, Bowel sounds present X 4 quads. Abd is soft and non tender X 4 quads. : No signs and/or symptoms were reported regarding the genitourinary system. Derm: Skin is intact, is healthy with good turgor, Skin is pink, warm \T\ dry. Musculoskeletal: Circulation, motion, and sensation intact. Capillary refill < 3 seconds. 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 - Social history:: Smoking status: Patient denies any tobacco usage or history of. Screenin:39 Abuse screen: Denies threats or abuse. Denies injuries from another. Nutritional ca1 screening: No deficits noted. Tuberculosis screening: No symptoms or risk factors identified. Fall Risk IV access (20 points). Assessment: 11:39 Reassessment: See triage notes. Cardiovascular: Rhythm is sinus rhythm. ca1 12:45 General: Appears in no apparent distress. uncomfortable, Behavior is calm, cooperative, jd3 appropriate for age. Pain: Complains of pain in chest and right arm Quality of pain is described as aching. Neuro: Level of Consciousness is awake, alert, obeys commands, Oriented to person, place, time, situation. Cardiovascular: Reports chest pain, Capillary refill < 3 seconds Patient's skin is warm and dry. Respiratory: Reports shortness of breath on exertion Airway is patent Respiratory effort is even, unlabored, Respiratory pattern is regular, symmetrical. GI: Reports nausea. : No signs and/or symptoms were reported regarding the genitourinary system. EENT: No signs and/or symptoms were reported regarding the EENT system. Derm: Skin is intact, Skin is dry, Skin is normal, Skin temperature is warm. Musculoskeletal: Circulation, motion, and sensation intact. Range of motion: intact in all extremities. 13:40 Reassessment: Patient appears in no apparent distress at this time. No changes from jd3 previously documented assessment. Patient and/or family updated on plan of care and expected duration. Pain level reassessed. Patient is alert, oriented x 3, equal unlabored respirations, skin warm/dry/pink. 14:30 Reassessment: Patient appears in no apparent distress at this time. Patient and/or jd3 family updated on plan of care and expected duration. Pain level reassessed. Patient is alert, oriented x 3, equal unlabored respirations, skin warm/dry/pink. Patient states feeling better. 15:24 Reassessment: Patient appears in no apparent distress at this time. Patient and/or jd3 family updated on plan of care and expected duration. Pain level reassessed. Patient is alert, oriented x 3, equal unlabored respirations, skin warm/dry/pink. Patient states feeling better. Vital Signs: 11:23 BP 130 / 80; Pulse 88; Resp 16 S; Temp 98.7(O); Pulse Ox 98% on R/A; Weight 99.79 kg ca1 (R); Height 5 ft. 6 in. (167.64 cm) (R); Pain 10/10; 13:23 Pulse 75; Resp 16 S; Pulse Ox 98% on R/A; jd3 13:28 BP 126 / 79 Supine; Pulse 79; jd3 13:28 BP 127 / 79 Sitting; Pulse 87; jd3 13:28 BP 135 / 95 Standing; Pulse 94; jd3 15:24 BP 134 / 89; Pulse 88; Resp 16 S; Pulse Ox 98% on R/A; jd3 11:23 Body Mass Index 35.51 (99.79 kg, 167.64 cm) ca1 ED Course: 11:17 Patient arrived in ED. as 11:24 Poornima Zamora, RN is Primary Nurse. ca1 11:24 Rustam Eden PA is PHCP. cp 11:24 Rustam Aguirre MD is Attending Physician. cp 11:36 Triage completed. ca1 11:38 Arm band placed on right wrist. ca1 11:39 Patient has correct armband on for positive identification. Placed in gown. Bed in low ca1 position. Call light in reach. Side rails up X 1. conveyor monitor on. Pulse ox on. NIBP on. Warm blanket given. 12:13 XRAY Chest (1 view) In Process Unspecified. EDMS 12:41 UPPER EXTREMITY VENOUS UNILATE In Process Unspecified. EDMS 13:00 Inserted saline lock: 20 gauge in left antecubital area, using aseptic technique. Blood jd3 collected. 15:25 No provider procedures requiring assistance completed. IV discontinued, intact, jd3 bleeding controlled, No redness/swelling at site. Pressure dressing applied. Administered Medications: 13:12 Drug: TORadol - Ketorolac 15 mg Route: IVP; Site: left antecubital; jd3 14:10 Follow up: Response: No adverse reaction jd3 13:12 Drug: Phenergan 12.5 mg Route: IVP; Site: left antecubital; jd3 14:10 Follow up: Response: No adverse reaction jd3 13:12 Drug: ProTONIX 40 mg Route: IVP; Site: left antecubital; jd3 14:10 Follow up: Response: No adverse reaction jd3 Outcome: 14:56 Discharge ordered by MD. cp 15:25 Discharged to home via wheelchair, with family. jd3 15:25 Condition: stable 15:25 Discharge instructions given to patient, family, Instructed on discharge instructions, follow up and referral plans. medication usage, Demonstrated understanding of instructions, follow-up care, medications, Prescriptions given X 3. 15:27 Patient left the ED. jd3 Signatures: Dispatcher [employer] EDMS Dee Dee Dodson as Rustam Eden PA PA cp Davies, Jonathon, RN RN jd3 Poornima Zamora RN RN ca1 Corrections: (The following items were deleted from the chart) 15:25 12:50 Inserted saline lock: 20 gauge in left antecubital area, using aseptic technique. jd3 Blood collected. jd3
--- NOTE | 2020-02-09 14:57 | EDPHYS ---
Physician Documentation [facility] Name: Snow Argueta Age: 34 yrs Sex: Female : 1985 Arrival Date: 02/09/2020 Time: 11:17 Bed 16 Private MD: PRANAY Physician Rustam Aguirre HPI: 02/08 11:45 This 34 yrs old Female presents to ER via Wheelchair with complaints of cp Shortness Of Breath, Chest Pain, Dizziness. 11:45 The patient has shortness of breath at rest. cp 11:45 Onset: The symptoms/episode began/occurred gradually, and became worse today. cp 11:45 Duration: The symptoms are continuous, and are steadily getting worse. Associated signs cp and symptoms: Pertinent positives: chest pain, SOB, Pertinent negatives: diaphoresis, fever. Patient reports being discharged from [facility] yesterday after being hospitalized last week with concern for possible stroke. Patient experienced vision loss right eye and weakness of right side that has continued. Patient is in process of being evaluated for autoimmune disorder. Patient reports increasing SOB, that is worse today. MANAGER DIESEL: 15:26 LMP N/A - Irregular menses jd3 Historical: - Allergies: 11:38 Cephalexin; ca1 11:38 Gadavist; ca1 11:38 Latex, Natural Rubber; ca1 11:38 Zofran; ca1 - Home Meds: 11:38 Reglan Oral [Active]; ca1 - PMHx: 11:38 ADD/ADHD; Endometrosis; epilepsy; GERD; Leukemia; Pancreatitis; Blood Clot on R arm; ca1 - PSHx: 11:38 Appendectomy; Cholecystectomy; Tubal ligation; Endometriosis Removal; ca1 - Immunization history:: Adult Immunizations up to date. - Social history:: Smoking status: Patient denies any tobacco usage or history of. ROS: 12:00 Constitutional: Negative for body aches, chills, fever, poor PO intake. cp 12:00 Cardiovascular: Positive for chest pain, swelling of right arm, Negative for cp palpitations. 12:00 Eyes: Negative for injury, pain, redness, and discharge. cp 12:00 Eyes: Positive for visual disturbance, of the right eye. cp 12:00 Respiratory: Positive for dyspnea on exertion, shortness of breath, at rest. 12:00 Abdomen/GI: Negative for abdominal pain, nausea, vomiting, and diarrhea. 12:00 Back: Positive for radiated pain. 12:00 Skin: Negative for cellulitis, rash. 12:00 Neuro: Positive for weakness, of the right leg, Negative for altered mental status, syncope. 12:00 All other systems are negative. Exam: 12:04 Constitutional: The patient appears in no acute distress, alert, awake, cp non-diaphoretic, non-toxic, well developed, well nourished, obese. 12:04 Head/Face: Normocephalic, atraumatic. cp 12:04 Eyes: Periorbital structures: appear normal, Conjunctiva: normal, Sclera: no appreciated abnormality, Lids and lashes: appear normal, bilaterally. 12:04 ENT: External ear(s): are unremarkable, Nose: is normal, Mouth: Lips: moist, Oral mucosa: moist, Posterior pharynx: Airway: no evidence of obstruction, patent. 12:04 Neck: ROM/movement: is normal, no meningismus, no nuchal rigidity. 12:04 Chest/axilla: Inspection: normal, Palpation: is normal, no crepitus, no tenderness. 12:04 Cardiovascular: Rate: normal, Rhythm: regular, Heart sounds: murmur, not appreciated, rub, not appreciated, gallop, not appreciated, Edema: is not appreciated. 12:04 Respiratory: the patient does not display signs of respiratory distress, Respirations: labored breathing, is not present, shallow respirations, that is mild, Breath sounds: are clear throughout, no decreased breath sounds, no stridor, no wheezing. 12:04 Abdomen/GI: Inspection: abdomen appears normal, Palpation: abdomen is soft and non-tender, in all quadrants. 12:04 Back: ROM is normal. 12:04 Skin: no rash present. 12:04 Neuro: Orientation: to person, place \T\ time. Mentation: is normal, Motor: moves all fours. 12:06 ECG was reviewed by the Attending Physician. cp Vital Signs: 11:23 BP 130 / 80; Pulse 88; Resp 16 S; Temp 98.7(O); Pulse Ox 98% on R/A; Weight 99.79 kg ca1 (R); Height 5 ft. 6 in. (167.64 cm) (R); Pain 10/10; 13:23 Pulse 75; Resp 16 S; Pulse Ox 98% on R/A; jd3 13:28 BP 126 / 79 Supine; Pulse 79; jd3 13:28 BP 127 / 79 Sitting; Pulse 87; jd3 13:28 BP 135 / 95 Standing; Pulse 94; jd3 15:24 BP 134 / 89; Pulse 88; Resp 16 S; Pulse Ox 98% on R/A; jd3 11:23 Body Mass Index 35.51 (99.79 kg, 167.64 cm) ca1 MDM: 11:27 Patient medically screened. cp 12:00 Differential diagnosis: asthma, pneumonia, Pulmonary Embolism pleurisy, bronchitis. cp 14:55 Data reviewed: vital signs, nurses notes, lab test result(s), EKG, radiologic studies, cp plain films, and as a result, I will discharge patient. 14:55 Test interpretation: by ED physician or midlevel provider: ECG, chest xray negative for cp infiltrates. Counseling: I had a detailed discussion with the patient and/or guardian regarding: the historical points, exam findings, and any diagnostic results supporting the discharge/admit diagnosis, lab results, radiology results, the need for outpatient follow up, a family practitioner, to return to the emergency department if symptoms worsen or persist or if there are any questions or concerns that arise at home. Special discussion: Based on the patient's history, exam, and Dx evaluation, there is no indication for emergent intervention or inpatient Tx. It is understood by the patient/guardian that if the Sx's persist or worsen they need to return immediately for re-evaluation. 02/08 11:39 Order name: Basic Metabolic Panel; Complete Time: 14:00 cp 02/08 14:01 Interpretation: Normal except: GFR 84; CA 8.2. cp 02/08 11:39 Order name: CBC with Diff; Complete Time: 14:00 cp 02/08 14:00 Interpretation: Normal except: WBC 13.8; MCV 87.4; NEUT A 9.0. cp 02/08 11:39 Order name: LFT's; Complete Time: 14:00 cp 02/08 11:39 Order name: Magnesium; Complete Time: 14:00 cp 02/08 11:39 Order name: NT PRO-BNP; Complete Time: 14:00 cp 02/08 11:39 Order name: PT-INR; Complete Time: 14:00 cp 02/08 11:39 Order name: Troponin (emerg Dept Use Only); Complete Time: 14:00 cp 02/08 11:39 Order name: XRAY Chest (1 view); Complete Time: 14:00 cp 02/08 14:01 Interpretation: Report review. cp 02/08 11:39 Order name: D-Dimer; Complete Time: 14:00 cp 02/08 14:01 Interpretation: D-DIMER 436; Reviewed. cp 02/08 11:43 Order name: UPPER EXTREMITY VENOUS UNILATE; Complete Time: 14:00 EDMS 02/08 13:20 Order name: CBC Smear Scan; Complete Time: 14:00 EDMS 02/08 14:47 Order name: Urine Dipstick--Ancillary (enter results) bd 02/08 14:47 Order name: Urine --Ancillary (enter results) bd 02/08 11:39 Order name: Orthostatics; Complete Time: 13:01 cp 02/08 11:39 Order name: EKG; Complete Time: 11:40 cp 02/08 11:39 Order name: Cardiac monitoring; Complete Time: 12:05 cp 02/08 11:39 Order name: EKG - Nurse/Tech; Complete Time: 12:05 cp 02/08 11:39 Order name: IV Saline Lock; Complete Time: 13:01 cp 02/08 11:39 Order name: Labs collected and sent; Complete Time: 13:01 cp 02/08 11:39 Order name: O2 Per Protocol; Complete Time: 12:05 cp 02/08 11:39 Order name: O2 Sat Monitoring; Complete Time: 12:05 cp 02/08 14:02 Order name: Urine Dipstick-Ancillary (obtain specimen); Complete Time: 15:11 cp 02/08 14:02 Order name: Urine Test (obtain specimen); Complete Time: 15:11 cp EC:06 Rate is 74 beats/min. Rhythm is regular. ID interval is normal. QRS interval is normal. cp QT interval is normal. T waves are Inverted in leads III, aVR. Interpreted by me. Reviewed by me. Administered Medications: 13:12 Drug: TORadol - Ketorolac 15 mg Route: IVP; Site: left antecubital; jd3 14:10 Follow up: Response: No adverse reaction jd3 13:12 Drug: Phenergan 12.5 mg Route: IVP; Site: left antecubital; jd3 14:10 Follow up: Response: No adverse reaction jd3 13:12 Drug: ProTONIX 40 mg Route: IVP; Site: left antecubital; jd3 14:10 Follow up: Response: No adverse reaction jd3 Disposition: 18:20 Co-signature as Attending Physician, Rustam Aguirre MD I agree with the assessment and lisandra plan of care. Disposition: 02/09/20 14:56 Discharged to Home. Impression: Other chest pain, Shortness of breath. - Condition is Stable. - Discharge Instructions: Nonspecific Chest Pain, Pleurisy, Shortness of Breath. - Prescriptions for ketorolac 10 mg Oral tablet - take 1 tablet by ORAL route every 6 hours As needed not to exceed 40 mg in 24hrs; 20 tablet. Albuterol Sulfate 2.5 mg /3 mL (0.083 %) Inhalation Solution for Nebulization - inhale 1 unit by NEBULIZATION route every 8 hours As needed; 1 box. Albuterol Sulfate 90 mcg/actuation - inhale 1-2 puff by INHALATION route every 4-6 hours; 1 Inhaler. - Medication Reconciliation Form, Thank You Letter, Antibiotic Education, Prescription Opioid Use form. - Follow up: Private Physician; When: 2 - 3 days; Reason: Recheck today's complaints. - Problem is new. - Symptoms have improved. Signatures: Dispatcher [employer] Rustam Chew MD MD cha Page, Corey, PA PA cp Davies, Jonathon, RN RN jd3 Acob, Cheryl, RN RN ca1 Corrections: (The following items were deleted from the chart) 11:43 11:40 Extremity Venous Uni Ltd+[id number] ordered. [facility] EDDC 14:00 14:00 Normal except: WBC 13.8; MCV 87.4. cp cp 14:01 14:00 Normal except: GFR 84. cp cp 15:27 14:56 02/09/2020 14:56 Discharged to Home. Impression: Other chest pain; Shortness of jd3 breath. Condition is Stable. Forms are Medication Reconciliation Form, Thank You Letter, Antibiotic Education, Prescription Opioid Use. Follow up: Private Physician; When: 2 - 3 days; Reason: Recheck today's complaints. Problem is new. Symptoms have improved. cp
[2020-02-09 15:41] LABS: Urine Blood NEGATIVE (NEG); Urine Glucose NEGATIVE (NEG); Urine Protein NEGATIVE (NEG); Urine pH 6.5 (5.0-7.0)
[2020-02-09 15:46] VITALS: TEMP 98.7; O2SAT 98
[2020-02-09 15:51] VITALS: BP 134/89
== END 2020-02-09 15:27 | disposition home or self-care (01) ==
LOC: ER 11:16
DX: R07.89 Other chest pain (principal); Z85.6 Personal history of leukemia; Z88.1 Allergy status to other antibiotic agents; Z88.8 Allergy status to other drugs, medicaments and biological substances; Z91.040 Latex allergy status
CPT/HCPCS: 93005; 85025; 80048; 36415; 83735; 81025; 85610; 85379; 80076; 81003; 84484; 83880; 71045; 93971; 96375; 96374; 99284; J2550; C9113

== ENCOUNTER 2020-02-12 00:05 | Emergency (ER) | payer BC ==
--- OUTSIDE RECORDS SUMMARY | 2020-02-12 00:11 | XMS REPORT | Clinical Summary ---
:1985 Author Organization [facility] Address [address] [place] [address] Care Team Providers Name Role Phone Asked, [...] it last week - unknown reason); (per [place] [employer]cription Drug Monitoring Program, last filled 12/18/19, [...] Encounters Date Type Specialty Care Team Description 02/11/2020 Telephone Ophthalmology Isidro Ruby MD 02/07/2020 Telephone Ophthalmology Gabby García MA 02/03/2020 - Hospital Encounter Neurology Kim Guevara Optic neuritis (Primary Dx); 02/08/2020 MD Janice Acute intractable headache, unspecified headache type; Aldo Pineda Intractabl e headache, unspecified chronicity pattern, unspecified headache type; Leukocytosis, unspecified type; Maisha Maddox Blurry vision; MD Jamarcus Paresthesia; Weakness 02/03/2020 Telephone Ophthalmology Gabby García MA after 02/11/2019 Immunizations Name Administration Dates Next Due FLUCELVAX [...] n the results section. IGG SYNTHESIS RATE STUDY Routine 02/04/2020 11:00 Results for this AM CDT procedure are [...] i n the results section. OLIGOCLONAL BANDING, CSF Routine 02/04/2020 9:56 Results for this AM CDT procedure are i n the results section. ANGIOTENSIN CONVERTING Routine 02/04/2020 9:56 R esults for this ENZYME, CSF AM CDT procedure are i n the results section. WEST NILE VIRUS ANTIBODY Routine 02/04/2020 9:56 Results for this PANEL, CSF AM CDT procedure are i n the results section. FLOW CYTOMETRY Routine 02/04/2020 9:56 Results f or this EVALUATION AM CDT procedure are i n the results section. VARICELLA ZOSTER BY PCR Routine 02/04/2020 9:56 Results for this AM CDT procedure are i n the results section. HERPES SIMPLEX VIRUS BY Routine 02/04/2020 9:56 Results for this PCR AM CDT procedure are i n the results section. ENTEROVIRUS BY PCR Routine 02/04/2020 9:56 Resul ts for this AM CDT procedure are i n the results section. ALBERT NOBLE VIRUS (EBV) Routine 02/04/2020 9:56 Results for this BY PCR AM CDT procedure are i n the results section. CYTOMEGALOVIRUS BY PCR Routine 02/04/2020 9:56 R esults for this AM CDT procedure are i n the results section. LYME DISEASE REFLEXIVE Routine 02/04/2020 9:56 R esults for this PANEL, CSF AM CDT procedure are i n the results section. VDRL, CSF SCREEN Routine 02/04/2020 9:56 Results for this AM CDT procedure are i n the results section. IGG SYNTHESIS RATE STUDY Routine 02/04/2020 9:56 Results for this AM [...] n the results section. BLOOD CULTURE, AEROBIC & Routine 02/04/2020 1:50 Results for this ANAEROBIC AM CDT procedure are i n [...] the results section. MISCELLANEOUS REFERRAL Routine 02/04/2020 1:40 R esults for this TEST AM CDT procedure are i n the results section. BLOOD CULTURE, AEROBIC & Routine 02/04/2020 1:40 Results for this ANAEROBIC AM CDT procedure are i n the results section. URINE DRUGS OF ABUSE STAT 02/04/2020 12:56 Res ults for this SCREEN AM CDT procedure are i n the results section. URINALYSIS SCREEN AND Routine 02/04/2020 12:56 Re sults for this MICROSCOPY, WITH REFLEX AM CDT proc edure are in TO CULTURE the results section. URINE CULTURE Routine 02/04/2020 12:56 Results fo r this AM CDT procedure are i n the results section. COVID-19 QUALITATIVE PCR STAT 02/03/2020 11:41 Results for this PM CDT procedure are [...] are i n the results section. COMPREHENSIVE METABOLIC STAT 02/03/2020 6:35 Results for this PANEL PM CDT procedure are i n the results section. B. BURGDORFERI ABS STAT [...] i n the results section. SYPHILIS TOTAL ANTIBODY STAT 02/03/2020 6:25 Results for this PM [...] i n the results section. HCG QUANTITATIVE, SERUM STAT 02/03/2020 2:27 Results for this PM CDT procedure are i n the results section. 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 Location: Left basilic Device Type: Non-valved Catheter Lumen(s): Single lumen Catheter size: 3 Fr Catheter to vein ratio: 24% MidLine Characteristics: Catheter Brand: SL PROVENA MIDLINE Internal Catheter Length (cm): 12 Total Catheter Length (cm): 12 Catheter Lot Number: [id number] Catheter Expiration Date: 05/21/2021 Procedure details: Landmarks [...] 5:26 PM CDT) Specimen Narrative Performed At [facility] Vascular U ltrasound Laboratory Upper Extr emity Venous Report [address] [place] [address] Pat.Name: SAPNA ARGUETA.ID: [id number] St.Date: 02/07/2020 Refer.MD: MAISHA MADDOX MD Exam Time: 4:33:00 PM Study Type:U E Venous Height: 66in Weight: 220lb BSA: 2.08 m2 Ag e: 1985,34Y Sex: FEMALE Sonogrp hr: Davis Vi, RVT Pat. Stat.:Inpatient Room: [address] Tape Vol: HV, CPT - 4: 89998 Echo Event ID:[id number] Order ID: [id number] Reason for Study:Right arm pain and swel [...] Ultrasound Laboratory Upper Extremity Veno us Report [address] [place] [address] Pat.Name: SAPNA ARGUETA Pat.I D: [id number] .Date: 02/07/2020 Refer .MD: MAISHA MADDOX MD Exam Time: 4:33:00 PM Study Type:UE Venous Height: 66in Weigh t: 220lb BSA: 2.08 m2 Age: 8 1985,34Y Sex: FEMALE Sonog rphr: Ryan Torres RVT Pat. Stat.:Inpatient Room: [address] Tape Vol: , CPT - 4: 39396 Echo Event ID:[id number] Order ID: [id number] Reason for Study:Right arm pain and swel [...] the visualized veins. Result given to EBONIE Husani at 17:30 PM on 02/07/2020. PHYSICIAN INTERPRETATION Venous examination of the right upper ex tremity and neck demonstrated no evidence of deep venous thrombosis. Obstructed superficial venous thrombosis of right upper arm basilic vein. FINDINGS: Signed 02/07/2020 10:03 PM Chaz Obrien MD, RPVI Performing Organization Address City/State/ZIP Code [facility] e Number [facility] [address] [place] [address] [facility] NEED PHYS SKILL,DX OR RX (02/07/2020 [...] addie atment, alternative treatment, observation and referral [place] protocol: Procedure explained and questions ans wered [...] vein ratio: 41% MidLine Characteristics: Catheter Brand: [employer] MatchMaker External Catheter Length (cm): 0 Internal Catheter Length (cm): 12 Total Catheter Length (cm): 12 Catheter Lot Number: [id number] Catheter Expiration Date: 01/18/2021 Procedure details: Landmarks [...] of5 resultswithin the time period is included. Estimated GFR >=90 mL/min/1.73 NEUMANN PENTECOSTAL Comment: m2 HOSPITAL Catergory Units Interpretation G1 >=90 Normal [...] published in 2014. Specimen Performing Organization Address [facility] Phon e Number [facility] DEPARTMENT OF PATHOLOGY AND [address] [place], [place] [address] [address] CBC with platelet and differential (02/07/2020 5:00 AM CDT)Only the most recent of5 resultswithin the time period is included. WBC 16.70 (H) 4.50 - 11.00 [facility] k/uL HOSPITAL RBC 4.30 4.20 - 5.50 [facility] m/uL [facility] HGB 12.8 12.0 - 16.0 [facility]/dL [facility] HCT 38.2 37.0 - 47.0 % [facility] MCV 88.8 82.0 - 100.0 [facility] MCH 29.8 27.0 - 34.0 pg [facility] MCHC 33.5 31.0 - 37.0 [facility] RDW - SD 40.9 37.0 - 55.0 fL [facility] MPV 12.3 8.8 - 13.2 fL [facility] Platelet count 197 150 - 400 k/uL [facility] Nucleated RBC 0.00 /100 WBC [facility] Neutrophils 74.7 (H) 39.0 - 69.0 % [facility] Lymphocytes 15.6 (L) 25.0 - 45.0 % [facility] Monocytes 6.6 0.0 - 10.0 % [facility] Eosinophils 0.0 0.0 - 5.0 % [facility] Basophils 0.3 0.0 - 1.0 % [facility] Immature granulocytes 2.8 0.0 - 1.0 % [facility] (H)Comment: HOSPITAL "Immature granulocytes" (promyelocytes , myelocytes, metamyelocytes ) Specimen Blood Performing Organization Address City/[facility] Phon e Number [facility] DEPARTMENT OF PATHOLOGY AND [address] [place], [place] [address] [place] [address] Basic metabolic panel (02/07/2020 5:00 AM CDT)Only the most recent of4 results within the time period is included. Pathologist Sig nature Sodium 138 135 - 148 mEq/L [facility] Potassium 3.9 3.5 - 5.0 mEq/L [facility] Chloride 101 98 - 112 mEq/L [facility] CO2 24 24 - 31 mEq/L [facility] Anion gap 13@ANIO 7 - 15 mEq/L [facility] BUN 18 6 - 20 mg/dL [facility] Creatinine 0.70 0.50 - 0.90 mg/dL [facility] AJ Glucose 103 (H) 65 - 99 mg/dL [facility] Calcium 8.4 8.3 - 10.2 mg/dL [facility] AL Specimen Blood Performing Organization Address [facility]/ZIP Code Phon e Number [facility] DEPARTMENT OF PATHOLOGY AND [address] [place] [phone] [facility] [address]INE [address] [address] XR Chest 1 Vw Portable (02/05/2020 9:27 PM CDT) Specimen Narrative Performed At EXAMINATION: XR CHEST 1 VW PORTABLE [facility] CLINICAL HISTORY: 34 years Female ches t pressure on exertion COMPARISON: None. IMPRESSION: No acute cardiopulmonary disease. FINDINGS: The cardiomediastinal silhouette, lungs, and regional skeletal structures are within normal limits for age. [facility]-[id number] Procedure Note Hm Interface, Radiology Results Incoming - 02/05/2020 10:12 PM CDT EXAMINATION: XR CHEST 1 VW PORTABLE CLINICAL HISTORY: 34 years Female chest pressure on exertion COMPARISON: None. IMPRESSION: No acute cardiopulmonary disease. FINDINGS: The cardiomediastinal silhouette, lungs, and regional skeletal structures are within normal limits for age. [facility]-[id number] Performing Organization Address City/[facility]/ZIP Code Phon e Number [facility] [address] [place] [address] ECG 12 lead (02/05/2020 9:12 PM CDT)Only the most recent of2 resultswithin the time period is included. Pathologist Sig nature Ventricular rate 78 [facility] Atrial rate 78 [facility] OR interval 144 [facility] QRSD interval 84 [facility] QT interval 382 [facility] QTC interval 435 [facility] P axis 1 52 [facility] QRS axis 1 52 [facility] MUSE T wave axis 40 [facility] MUSE EKG impression Normal sinus [facility] MUSE rhythm-Normal ECG-In automated comparison with ECG of 04-FEB-2020 04:50,-No significant change was found- Specimen Narrative Performed At This result has an attachment that is no t available. Performing Organization Address City/[facility] Phon e Number [facility] MUSE [address] [place] [address] IgG synthesis rate study (02/04/2020 11:00 AM CDT)Only the most recent of2 resultswithin the time period is included. IgG albumin ratio, SEE 0.00 - 0.23 N[facility] CSF COMMENTComment: HOSPITAL Footnote--------- IgG index, CSF SEE 0.01 - 0.63 NEL PENTECOSTAL COMMENTComment: HOSPITAL Footnote--------- IgG synthetic rate SEE -9.90 - 3.30 NEL PENT[facility] COMMENTComment: mg/day HOSPITAL Footnote--------- Q-albumin ratio, SEE 2.00 - 7.50 NEUMNAN PENTECOSTAL CSF COMMENTComment: HOSPITAL Footnote--------- IgG, CSF SEE 1.00 - 3.00 NEL PENTECOSTAL COMMENTComment: mg/dL HOSPITAL Footnote--------- Albumin, CSF SEE 10.00 - 30.00 NEL PENTECOSTAL COMMENTComment: mg/dL HOSPITAL Footnote--------- IgG SEE COMMENT 700 - 1600 NEL PENT[facility]OSTAL Comment: mg/dL HOSPITAL Footnote--------- Corrected result; previously reported as 852 on 2019 at 12:58 by I/AUT Albumin, S SEE COMMENT 3640.0 - NEL [facility]Z Comment: 5304.0 mg/dL HOSPITAL Footnote--------- DUPLICATE ORDER. Corrected result; previously reported as 3700.0 on at 12:58 by I/AUT Specimen Serum Performing Organization Address City/State/[facility] Phon e Number [facility] DEPARTMENT OF PATHOLOGY AND [address] [place], [place] [address] GENOMIC MEDICINE [facility] [address] [place] [address] IR Lumbar Puncture by Radiology (02/04/2020 10:00 [...] Opening pressure was 21 cm of water. [facility]-[id number] Procedure Note Interface, Radiology Results Incoming - 02/04/2020 10:26 [...] Opening pressure was 21 cm of water. [facility]-[id number] Performing Organization Address City/State/ZIP Code Phon e Number [facility] [address] [place] [address] West Nile virus antibody panel, CSF (02/04/2020 9:56 AM CDT) West Nile IgG, 0.09 <=1.29 IV [facility] CSF Comment: INTERPRETIVE INFORMATION: West Nile Virus Ab IgG by EL [facility], CSF 1.29 IV or less ....... Negative: No significant level of [place] N ile virus IgG antibody de tected. 1.30 - 1.49 IV ........ Equivocal: Questionable presence of Dale t Nile virus IgG antib chu detected. Repeat testing in 10-14 days may be helpful. 1.50 IV or greater .... Positive: Presence of IgG antibody to Dale t Nile virus detected, sugge stive of current or past infection. This test is intended to be used as a semi-quantitativ e means of detecting West Nile virus-specific IgG in CSF samples in which there is a clinical suspicion of West Nile Virus infec tion. This test should not be used solely for quantitative purpos es, nor should the results be used without correlation to clin ical history or other data. Because other members of the Flavivirid ae family, such as [place] encephalitis virus, show extensive cross-reactivity with West Nile virus, serologic testi ng specific for these species should be considered. The detection of antibodies to West Nile virus in cere brospinal fluid may indicate central nervous system infection. H owever, consideration must be given to possible contamination by blood or transfer of serum antibodies across the blood-brain ba rrier. Test developed and characteristics determined by [facility]. See Compliance Statement B: [email or web address]/ [employer] West Nile IgM, 0.02 <=0.89 IV HM [facility] REF [facility] CSF Comment: INTERPRETIVE INFORMATION: West Nile Virus Ab IgM by EL [facility], CSF 0.89 IV or less ...... Negative - No significant level of West Nile virus I gM antibody detected. 0.90-1.10 IV ......... Equivocal - Questionable presen ce of West Nile virus I gM antibody detected. Repeat nicole ting in 10-14 days may be he lpful. 1.11 IV or greater ... Positive - Presence of IgM antibody to West Nil e virus detected, suggestive of current or recent infection. This test is intended to be used as a semi-quantitativ e means of detecting West Nile virus-specific IgM in CSF samples in which there is a clinical suspicion of West Nile virus infec tion. This test should not be used solely for quantitative purpos es, nor should the results be used without correlation to clin ical history or other data. Because other members of the Flavivirid ae family, such as [place] encephalitis virus, show extensive cross-reactivity with West Nile virus, serologic testi ng specific for these species should be considered. The detection of antibodies to West Nile virus in cere brospinal fluid may indicate central nervous system infection. H owever, consideration must be given to possible contamination by blood or transfer of serum antibodies across the blood-brain ba rrier. Test developed and characteristics determined by [facility]. See Compliance Statement B: [employer]/ CS Performed By: [facility] [address] [place] [address] Charge Machine Operator: Nai Rushing MD Specimen Cerebrospinal fluid Performing Organization Address [facility] Phon e Number [facility] [address] [place] [address] [facility] [address] [place] [address] Cytomegalovirus by PCR (02/04/2020 9:56 AM CDT) [facility] Cytomegalovirus by PCR Not-Detected Not-Detected [facility] IU/mL HOSPITAL Cytomegalovirus by PCR See link [facility] for [facility] HOSPITAL Lab ReportComment : Specimen Performing Organization Address [facility] Phon e Number [facility] DEPARTMENT OF PATHOLOGY AND [address] [place] [address] Varicella zoster by PCR (02/04/2020 9:56 AM CDT) [facility] VZV result Not-Detected Not-Detected [facility] copies/mL [facility] Varicella zoster, See link below [facility] pcr for [facility] Lab HOSPITAL ReportComment: Specimen Performing Organization Address [facility] Phon e Number [facility] DEPARTMENT OF PATHOLOGY AND [address] [place] [address] [phone] Miscellaneous referral test (02/04/2020 9:56 AM CDT)Only the most recent of3 resultswithin the time period is included. [facility] test name JCV QUANT PCR SHOWN ABOVE [...] and its performance characteri stics determined by [employer]. It has not been cleared or approved by the U.S. Food and Drug Administration. Results should be used in conjunc tion with clinical findings, and should not form the sole basis for a socorro gnosis or treatment decision. Performed at: [facility] - [address] [place], [place] Specimen Performing Organization Address City/[facility] Phon e Number [facility] DEPARTMENT OF PATHOLOGY AND [address] [place] [address] 0 [facility] SHOWN ABOVE Herpes simplex virus by PCR (02/04/2020 9:56 AM CDT) Pathologist [facility] Herpes virus, PCR Not-Detected Not-Detected [facility] Herpes virus, PCR See link below [facility] for PDF Lab HOSPITAL ReportComment: Specimen Performing Organization Address City/[facility] Phon e Number [facility] DEPARTMENT OF PATHOLOGY AND [address] [place] [address] [phone] [address] [facility] Flow cytometry evaluation (02/04/2020 9:56 AM CDT) [facility] Flow cytometry See link below [facility] evaluation for PDF Lab HOSPITAL Report Specimen Performing Organization Address City/[facility] Phon e Number [facility] DEPARTMENT OF PATHOLOGY AND [address] [place] [phone] [facility] Albert Noble Virus (EBV) by PCR (02/04/2020 9:56 AM CDT) Albert Noble virus, Not-Detected Not-Detected [facility] PCR copies/mL [facility] Albert Noble virus, See link below [facility] PCR for PDF Lab HOSPITAL ReportComment: Specimen Performing Organization Address City/[facility] Phon e Number [facility] DEPARTMENT OF PATHOLOGY AND [address] [place] [phone] GENOMIC MEDICINE [address] [place] [address] [facility] Lyme disease reflexive panel, CSF (02/04/2020 9:56 AM CDT) B. burgdorferi Abs 0.08 <=0.99 [facility] DARSHANA, CSF Comment: When the [...] days. Test developed and characteristics determined by [facility]. See Compliance Statement B: [email or web address]/ CS Performed By: [facility] [address] [place] [address] Charge Machine Operator: Nai Rushing MD Specimen Cerebrospinal fluid Performing Organization Address City/State/ZIP Code Phon e Number [facility] [address] [place] [address] [facility] RE[facility] [address] [place] [address] Cryptococcal antigen, screen (02/04/2020 9:56 AM CDT) Cryptococcal Ag Negative - No Cryptococcus antigen detected. [facility] Comment: HOSPITAL Specimen Information Specimen Source: CSF (Spinal Fluid) Specimen Site: CSF (spinal fluid) Specimen Cerebrospinal fluid - CSF (spinal fluid) Performing Organization Address City/[facility] Phon e Number [facility] DEPARTMENT OF PATHOLOGY AND [address] [place] [address] [address] Oligoclonal banding, CSF (02/04/2020 9:56 AM CDT) Protein, CSF 24 15 - 45 [place] mg/dL [facility] Prealbumin, CSF (%) 6.4 3.5 - 11.1 % [facility] Albumin, CSF 66.1 40.8 - 66.2 [facility] Alpha 1, CSF (%) 2.4 2.3 - 6.4 % [facility] Alpha 2, CSF (%) 6.1 6.1 - 12.6 % [facility] Beta, CSF (%) 13.1 11.7 - 24.1 [facility] Gamma, CSF (%) 5.9 5.6 - 12.2 % [facility] CSF extended See [place] interpretation CommentComment: An [facility] normal [facility] CSF protein study. No oligoclonal bands seen. CSF interpretation See [place] CommentComment: [facility] Miguel Boyd, PhD; [facility] Fam Calderón MD Specimen Cerebrospinal fluid Performing Organization Address City/[facility] Phon e Number [facility] DEPARTMENT OF PATHOLOGY AND [address] [place] [address] [address] Enterovirus by PCR (02/04/2020 9:56 AM CDT) Pathologist Sig nature Enterovirus PCR Not-Detected Not-Detected [facility] Enterovirus PCR See link below [facility] for PDF Lab HOSPITAL ReportComment: Specimen Performing Organization Address City/[facility] Phon e Number [facility] DEPARTMENT OF PATHOLOGY AND [address] [place] [address] [address] [facility] Gram stain (02/04/2020 9:56 AM CDT) Gram stain isolate No WBC's or organisms seen. [facility] Comment: HOSPITAL Specimen Information Specimen Source: CSF (Spinal Fluid) Specimen Site: CSF (spinal fluid) Specimen Cerebrospinal fluid - CSF (spinal fluid) Performing Organization Address City/[facility] Phon e Number [facility] DEPARTMENT OF PATHOLOGY AND [address] [place] [address] [phone] [address] CSF culture (02/04/2020 9:56 AM CDT) CSF culture No growth after 3 days. [facility] isolate Comment: HOSPITAL Specimen Information Specimen Source: CSF (Spinal Fluid) Specimen Site: CSF (spinal fluid) Specimen Cerebrospinal fluid - CSF (spinal fluid) Performing Organization Address [facility] Phon e Number [facility] DEPARTMENT OF PATHOLOGY AND [address] [place] [address] [phone] [address] CSF cell count with differential (02/04/2020 9:56 AM CDT) Color, CSF Colorless [facility] Appearance, CSF Clear [facility] Comment: HOSPITAL Corrected result called to Juan Daniel Mallory/WT18 13:21 Corrected result; previously reported as Slightl y hazy on 02/04/2020 at 11:19 by DH2 RBC, CSF 33 (H) 0 - 1 /CMM [facility] WBC, CSF 1 0 - 5 /CMM [facility] CSF mononuclear cell 1/CMM [facility] Specimen Cerebrospinal fluid Performing Organization Address [facility] Phon e Number [facility] DEPARTMENT OF PATHOLOGY AND [address] [place] [address] [phone] [address] VDRL, CSF screen (02/04/2020 9:56 AM CDT) Pathologist Sig nature VDRL, CSF screen Non-reactive Non-reactive [facility] Specimen Cerebrospinal fluid Performing Organization Address City/[facility] Phon e Number [facility] DEPARTMENT OF PATHOLOGY AND [address] [place] [address] [phone] [address] Glucose level, CSF (02/04/2020 9:56 AM CDT) Pathologist Sig nature Glucose, CSF 90 (H) 40 - 70 mg/dL [facility] Specimen Cerebrospinal fluid Performing Organization Address [facility] Phon e Number [facility] DEPARTMENT OF PATHOLOGY AND [address] [place] [address] [phone] [address] Angiotensin converting enzyme, CSF (02/04/2020 9:56 AM CDT) Angiotensin 0.6 0.0 - 2.5 [facility] converting enzyme, Comment: U/L CSF This test was developed and its performance characteri stics determined by [facility]. The U.S. Food and Isma g Administration has not approved or cleared this test; however, FDA clearance or approval is not currently required for cl inical use. The results are not intended to be used as the sole me ans for clinical diagnosis or patient management decisions. Performed By: [facility] [address] [place] [address] Charge Machine Operator: Nai Rushing MD Specimen Cerebrospinal fluid Performing Organization Address [facility] Phon e Number [facility] [address] [place] [address] [facility] [address] [place] [phone] EEG (routine) (02/04/2020 7:19 AM CDT) Narrative [...] of2 resultswithin the time period is included. [facility] Blood culture No growth after 5 days of incubation. MALKA CHAVEZ isolate Comment: HOSPITAL Specimen Information Specimen Source: Blood Specimen Site: Antecubital, right Specimen Blood - Antecubital, right Performing Organization Address [facility] Phon e Number [facility] DEPARTMENT OF PATHOLOGY AND [address] [place] [address] [phone] [address] Urinalysis screen and microscopy, with reflex to culture (02/04/2020 12:56 AM CDT) Specimen site Clean catch [facility] Color, UA Yellow [facility] Appearance, UA Clear [facility] Specific gravity, UA 1.036 (H) 1.001 - 1.035 [facility] pH, UA 5.0 5.0 - 8.5 [facility] Protein, UA 1+ (A) Negative [facility] Glucose, UA 1+ (A) Negative [facility] Ketones, UA Negative Negative [facility] Bilirubin, UA Negative Negative [facility] Blood, UA Negative Negative [facility] Nitrite, UA Negative Negative [facility] Urobilinogen, UA <2.0 <2.0 [facility] Leukocyte esterase, Negative Negative [facility] Epithelial cells, UA 2 /HPF [facility] WBC, UA <1 0 - 4 /HPF [facility] RBC, UA None seen 0 - 5 /HPF [facility] Bacteria, UA None seen None seen [facility] Yeast, UA Few (A) [facility] Yeast with None seen [facility] pseudohyphae, [facility] Hyaline casts, UA 4 /LPF [facility] Specimen Urine Performing Organization Address City/State/ZIP Code Phon e Number [facility] DEPARTMENT OF PATHOLOGY AND [address] [place] [phone] [facility] [address] [address] Urine drugs of abuse screen (02/04/2020 12:56 AM CDT) Amphetamine screen, Negative [place] urine [facility] Barbiturate screen, Negative [place] urine [facility] Benzodiazepine Negative [place] screen, urine [facility] Cocaine screen, urine Negative [facility] Methadone metabolite Negative [place] (EDDP), urine [facility] Opiates screen, urine Positive (A) [facility] Oxycodone screen, Negative [place] urine [facility] Phencyclidine screen, Negative [place] urine [facility] Tricyclic screen, Negative [place] urine [facility] Cannabinoid screen, Negative [place] urine Comment: [facility] Drug screen minimum concentration of detectability HOSPITAL [...] requir ed. Specimen Urine Performing Organization Address [facility] Phon e Number [facility] DEPARTMENT OF PATHOLOGY AND [address] [place] [address] Urine culture (02/04/2020 12:56 AM CDT) Pathologist Sig nature Urine culture SEE COMMENTComment: [facility] Bacteriuria screen HOSPITAL negative. Specimen Performing Organization Address [facility] Phon e Number [facility] DEPARTMENT OF PATHOLOGY AND [address] [place] [address] COVID-19 qualitative PCR (02/03/2020 11:41 PM CDT) Interpretation Negative results do not prec lude 2019-nCoV infection and should not be used as the sole basis for treatment or other patient management decisions. Negative results must be combined with clinical observations, patient history, and epidemiological NEUMANN information. [facility] COVID-19 qualitative Not-Detected Not-Detecte [place] PCR result d [facility] qualitative See link below for [place] PCR PDF Lab [facility] ReportComment: Case HOSPITAL Number: [id number] Specimen Nasal swab Performing Organization Address [facility] Phon e Number [facility] DEPARTMENT OF PATHOLOGY AND [address] [place] [address] MRI Brain & Orbit W Wo Contrast (02/03/2020 10:12 PM CDT) Specimen Narrative Performed At This [facility] has an attachment that is no t [...] Unremarkable MRI of the brain and orbits. [facility]-[id number] Procedure Note Interface, Radiology Results - 02/03/2020 10:39 PM CDT EXAMINATION: MRI [...] MRI of the brain and orbits . [facility]-[id number] Performing Organization Address City/State/ZIP Code Phon e Number [facility] [address] [place] [address] MRI Thoracic Spine W Contrast (02/03/2020 10:12 [...] stenosis. [id number] Procedure Note Interface, Radiology Results 02/03/2020 10:41 PM CDT EXAMINATION: MRI THORACIC [...] with no stenosis. [id number] Performing Organization Address City/State/ZIP Code Phon e Number [facility] [address] [place] [address] MRI Cervical Spine W Contrast (02/03/2020 10:12 PM CDT) Specimen Narrative Performed At EXAMINATION: MRI CERVICAL SPINE W CONT [facility] CLINICAL H[facility]: demyelinating lesion s COMPARISON: None. [...] No evidence of cervical cord demyelinati on. [facility]-[id number] Procedure Note Interface, Radiology Results Incoming - [...] No evidence of cervical cord demyelinati on. [facility]-[id number] Performing Organization Address City/[facility]/ZIP Code Phon e Number [facility] [address] [place] [address] Cytology (non-gynecological) request (02/03/2020 8:17 PM CDT) [facility] DEPARTMENT OF PATHOLOGY AND GENOMIC MEDICINE Cytology See link below [facility] DEPARTMENT OF (non-gynecological) for PDF Lab PATHOLOGY AND report Report GENOMIC MEDICINE Result status This is Final [facility] DEPARTMENT OF Report for PATHOLOGY AND [id number] [facility]ICINE Specimen Performing Organization Address City/[facility] Code Phon e Number [facility] DEPARTMENT OF PATHOLOGY AND [address] [place] [phone] GENOMIC MEDICINE Comprehensive metabolic panel (02/03/2020 6:35 PM CDT) Sodium 140 135 - 148 [facility] mEq/L [facility] Potassium 3.8 3.5 - 5.0 [facility] mEq/L [facility] Chloride 104 98 - 112 [facility] mEq/L [facility] CO2 18 (L) 24 - 31 mEq/L [facility] Anion gap 18@ANIO (H) 7 - 15 mEq/L [facility] BUN 16 6 - 20 mg/dL [facility] Creatinine 0.62 0.50 - 0.90 [facility] mg/dL [facility] Glucose 137 (H) 65 - 99 mg/dL [facility] Calcium 9.0 8.3 - 10.2 [facility] mg/dL [facility] Protein 7.2 6.3 - 8.3 [facility] Comment: g/dL [facility] [place] 4.6-7.0 g/dL 1 week 4.4-7.6 g/dL 7 months-1year 5.1-7.3 g/dL 1-2 years 5.6-7.5 g/dL >3 years 6.0-8.0 g/dL 18-150 6.3-8.3 g/dL Albumin 3.9 3.5 - 5.0 [facility] g/dL [facility] A/G ratio 1.2 0.7 - 3.8 [facility] Alkaline phosphatase 57 35 - 104 U/L [facility] AST 15 10 - 35 U/L [facility] ALT 25 5 - 50 U/L [facility] Total bilirubin 0.3 0.0 - 1.2 [facility] mg/dL HOSPITAL Specimen Blood Performing Organization Address City/[facility]/ZIP Code Phon e Number [facility] DEPARTMENT OF PATHOLOGY AND [address] [place] [address] [phone] [address] Syphilis total antibody (02/03/2020 6:25 PM CDT) Pathologist [facility] Syphilis total Non-reactiveComment Non-reactive [facility] antibody : No serological HOSPITAL evidence of syphilis infection. Specimen Serum Performing Organization Address City/[facility] Phon e Number [facility] DEPARTMENT OF PATHOLOGY AND [address] [place] [address] [phone] [address] HIV Ag/Ab combination (02/03/2020 6:25 PM CDT) [facility] HIV Ag/Ab combination Non-reactive Non-reactive [facility] Specimen Blood Performing Organization Address City/[facility] Phon e Number [facility] DEPARTMENT OF PATHOLOGY AND [address] [place] [address] [phone] [address] Homocystine, plasma (02/03/2020 6:25 PM CDT) [facility] Homocysteine 6.4 0.0 - 15.0 [facility] Comment: umol/L HOSPITAL The risk for coronary vascular disease increases progr essively with homocysteine concentration. A 3.4 times greater risk is associated with a homocysteine concentration of greate r than 15.8 umol/L as compared to a concentration below 14.1 umol/L. Specimen Blood Performing Organization Address City/[facility]/ZIP [facility] Phon e Number [facility] DEPARTMENT OF PATHOLOGY AND [address] [place] [address] [phone] [address] B. burgdorferi Abs total, serum (02/03/2020 6:25 PM CDT) [facility] B. burgdorferi 0.98 0.00 - 1.20 [facility] antibodies Comment: INTERPRETIVE INFORMATION: Borrelia Burgdorferi Abs,Tot al by DARSHANA 0.99 REJI or Less: ...... Negative: Antibody to B. burgdorferi no t detected. 1.00 - 1.20 REJI......... Equivocal: Repeat testing in 10-14 days may be helpful. 1.21 REJI or Greater: ... Positive: Probable presenc e of antibody to B. burgdorferi detected. Performed By: [facility] [address] [place] [address] Charge Machine Operator: Nai Rushing MD Specimen Serum Performing Organization Address City/[facility] Phon e Number [facility] [address] [place] [address] [facility] [address] [place] [address] Vitamin D 25 hydroxy level (02/03/2020 6:25 PM CDT) Pathologist Donald Vitamin D, 48.7 30.0 - 150.0 [facility] 25-hydroxy Comment: ng/mL HOSPITAL This assay reports [...] alternative methods. Specimen Blood Performing Organization Address City/[facility]/ZIP Code Phon e Number [facility] DEPARTMENT OF PATHOLOGY AND [address] [place] [address] [phone] [address] Sedimentation rate (02/03/2020 6:25 PM CDT) Pathologist Sig nature Sedimentation rate 7 0 - 20 mm/hr [facility] Specimen Blood Performing Organization Address City/[facility]/ZIP [facility] Phon e Number [facility] DEPARTMENT OF PATHOLOGY AND [address] [place] [address] [phone] [address] Rheumatoid factor (02/03/2020 6:25 PM CDT) Pathologist Sig [facility] Rheumatoid factor <10 0 - 13 IU/mL [facility] Specimen Blood Performing Organization Address City/[facility]/ZIP [facility] Phon e Number [facility] DEPARTMENT OF PATHOLOGY AND [address] [place] [address] [phone] [address] C-reactive protein (02/03/2020 6:25 PM CDT) Pathologist [facility] CRP <0.30 0.00 - 0.50 mg/dL [facility] Specimen Blood Performing Organization Address City/[facility] Phon e Number [facility] DEPARTMENT OF PATHOLOGY AND [address] [place] [address] [place] [phone] ELMER (02/03/2020 6:25 PM CDT) Pathologist [facility] ELMER screen Negative Negative [facility] Comment: HOSPITAL Test performed using [employer] DAPI ELMER kit (Indirect Immunofluorescence Assay) for Anti-Nuclear Antibody on [employer] Media[employer]agge 160 Analyzer. Specimen Blood Performing Organization Address City/[facility] Phon e Number [facility] DEPARTMENT OF PATHOLOGY AND [address] [place] [address] [phone] [address] T3 (02/03/2020 6:25 PM CDT) Pathologist [facility] T3 70 (L) 80 - 200 ng/dL [facility] Specimen Blood Performing Organization Address City/[facility]/ZIP [facility] Phon e Number [facility] DEPARTMENT OF PATHOLOGY AND [address] [place] [address] [phone] [address] Thyroid stimulating hormone (02/03/2020 6:25 PM CDT) Pathologist Sig [facility] TSH 1.12 0.27 - 4.20 uIU/mL [facility] Specimen Blood Performing Organization Address City/[facility] Phon e Number [facility] DEPARTMENT OF PATHOLOGY AND [address] [place] [address] [phone] [address] T4, free (02/03/2020 6:25 PM CDT) Pathologist [facility] T4, free 1.0 0.9 - 1.7 ng/dL [facility] Specimen Blood Performing Organization Address City/[facility] Phon e Number [facility] DEPARTMENT OF PATHOLOGY AND [address] [place] [address] [phone] [address] Folate level (02/03/2020 6:25 PM CDT) Pathologist Sig nature Folate 8.0 4.8 - 24.2 ng/mL [facility] Specimen Serum Performing Organization Address [facility] Phon e Number [facility] DEPARTMENT OF PATHOLOGY AND [address] [place] [address] [phone] [address] Vitamin B12 level (02/03/2020 6:25 PM CDT) Vitamin B12 541 211 - 946 [facility] Comment: pg/mL HOSPITAL Significant overlap exists between normal and deficien cy states. However, most patients with deficiencies will have Ser um B12 <200 pg/mL. Specimen Serum Performing Organization Address [facility] Phon e Number [facility] DEPARTMENT OF PATHOLOGY AND [address] [place] [address] [phone] [address] Cortisol level, random (02/03/2020 6:25 PM CDT) Pathologist Donald Cortisol, random 2 ug/dL [facility] Comment: HOSPITAL Reference Ranges are not established for non-timed Cor tisol levels. Reference Range for Timed Cortisol: 6 - 10 AM 6 - 18 ug/d l 4 - 8 PM 3 - 11 ug/ dl Specimen Blood Performing Organization Address [facility] Phon e Number [facility] DEPARTMENT OF PATHOLOGY AND [address] [place] [phone] [place] [address] [address] Head Wo Contrast (02/03/2020 4:14 PM CDT) Specimen Narrative Performed At EXAM: CT HEAD WO CONTRAST [facility] CLINICAL HISTORY: headache loss of vis [...] appropria te moderation of exposure. Automated dose retail management trainee nology is applied to adjust radiation exposure [...] acute intracranial ab normality. [id number] Procedure Note Interface, Radiology Results Incoming - 02/03/2020 4:20 [...] ensure appropriate moderation of exposure. Automated dose retail management trainee nology is applied to adjust radiation exposure [...] intracranial ab normality. [id number] Performing Organization Address City/State/ZIP Code Phon e Number [facility] [address] [place] [address] hCG quantitative, serum (02/03/2020 2:27 PM CDT) hCG quantitative, <1 0 - 5 mIU/mL [place] [facility] serum Comment: HOSPITAL Reference range for HCG Quant applies to males and non - females. Post Menopausal 0.0 - 8.1 mIU/mL Specimen Blood Performing Organization Address City/State/ZIP Code Phon e Number [facility] DEPARTMENT OF PATHOLOGY AND [address] [place] [phone] GENOMIC MEDICINE [facility] [address] [place] [address] after 02/11/2019 Advance Directives For more information, please contact: [phone] Type Date Recorded Patient International Project Manager Explanati on Advance Directives, Living Will and Medical Power of Cotton Breeder
--- OUTSIDE RECORDS SUMMARY | 2020-02-12 00:12 | XMS REPORT | Continuity of Care Document ---
:1985 Author Organization [employer] Care Team Providers Name Role Phone Edvivo Information SourceLair Unavailable Un available Problems Problem Status Onset [...] BID, # 180 tab, 3 Refill(s), Pharmacy: [email or web address][id number] 24 HR topiramate 100 mg = 1 Active Misc her 100 MG Extended cap, PO, 019 Neuro Release Capsule Daily, # 90 [Trokendi] cap, 3 Refill(s), Pharmacy: [facility] #[id number] 24 HR topiramate 100 mg = 1 No Longer Mi matt 100 MG Extended cap, PO, Active 019 Neuro Release Capsule Daily, X 30 [Trokendi] day, # 30 cap, 3 Refill(s), Pharmacy: [facility] [place] oxcarbazepine 300 300 mg = 1 No Longer M ischer MG Oral Tablet tab, PO, Active 019 Neuro [Trileptal] BID, X 30 day, # 60 tab, 3 Refill(s), Pharmacy: [facility] [place] lisdexamfetamine 30 mg = 1 Active Misch er dimesylate 30 MG cap, PO, 019 Neuro Oral Capsule QAM, # 30 [Vyvanse] cap, 0 Refill(s) omeprazole 20 mg 20 mg = 1 Active Misch er oral delayed cap, PO, 019 Neuro release capsule Daily, # 30 cap, 2 Refill(s), Pharmacy: [facility] oxcarbazepine 300 300 mg = 1 Active Mis doreen MG Oral Tablet tab, PO, 019 Neuro [Trileptal] BID, # 60 tab, 2 Refill(s), Pharmacy: [facility] 24 HR topiramate 100 mg = 1 Active Misc her 100 MG Extended cap, PO, 019 Neuro Release Capsule Daily, # 30 [Trokendi] cap, 3 Refill(s), Pharmacy: [facility] topiramate 25 MG 25 mg = 1 Active Misch er Oral Tablet tab, PO, 019 Neuro [Topamax] BID, # 60 tab, 2 Refill(s), Pharmacy: [facility] Phenytoin sodium 200 mg = 2 Active Misc her 100 MG Extended cap, PO, 019 Neuro Release Capsule BID, # 120 [Dilantin] cap, 3 Refill(s), Pharmacy: [facility] Alprazolam 0.5 MG 0.5 mg [...] uro [facility] Resp[facility] 16 12/23/2018 [facility] Height 167.64 cm 12/23/2018 [facility] Weight 90 12/23/2018 [facility] BMI Calculated 32.02 12/23/2018 [facility] BMI Calculated 32.02 11/27/2018 [facility] Weight 90 11/27/2018 [facility] Height 167.64 cm 11/27/2018 [facility] Heart Rate 74 11/27/2018 [facility] Respitory Rate 16 11/27/2018 [facility] Systolic (mm Hg) 106 11/27/2018 [facility] Diastolic (mm Hg) 79 11/27/2018 [facility] BMI Calculated 33 [facility]/16/2018 [facility] Weight 92.727 10/16/2018 [facility] Height 167.64 cm 10/16/2018 [facility] Heart Rate 78 10/16/2018 [facility] Respitory Rate 16 10/16/2018 [facility] Systolic (mm Hg) 129 10/16/2018 [facility] Diastolic (mm Hg) 87 10/16/2018 [facility] BMI Calculated 32.67 10/01/2018 [facility] Neuro Weight 91.818 10/01/2018 [facility] Height 167.64 cm 10/01/2018 [facility] Neuro Respitory Rate 16 10/01/2018 [facility] Neuro Heart Rate 83 10/01/2018 [facility] Neuro Systolic (mm Hg) 109 10/01/2018 [facility] Diastolic (mm Hg) 80 10/01/2018 [facility] Encounters Location Location Encounter Encounter Reason Attending ADM [place] Stat Source Details Type Number For Provider Date Date Visit Outpatient [id number] David 10/01 Active [facility] Outpatient [id number] David 10/01 10/02 [facility] Neurology [facility] [place] Outpatient [id number] David 10/02 Active [facility] Outpatient [id number] David 10/02 10/03 [facility] Neurology [facility] [place] Outpatient [id number] David 10/16 Active [facility] Outpatient [id number] David 10/16 10/17 [facility] Neurology [facility] [place] Outpatient [id number] David 11/27 Active [facility]NA Outpatient [id number] David 11/27 11/28 [facility] Neurology [facility] [place] Outpatient [id number] David 12/23 Active [facility] Outpatient [id number] David 12/23 12/24 [facility] Neurology [facility] [place] Outpatient [id number] David 04/28 Active [facility] MNA Ambulatory [id number] David 04/28 04/28 [facility] Neurology Pre-Reg Kre /2019 [facility] [place] MNA Outside [id number] 05/21 05/23 [facility] Neurology Medical /2019 Neuro [place] Records Outpatient [id number] David 02/14 [facility] Procedures Procedure Code Date Perfomer Comments Source Tubal ligation [id number] [facility] Ne uro Assessment and Plan No Data Provided for This Section Plan of Care No Data Provided for This Section Social History Social History Date Source Social History TypeResponse 10/01/2018 [facility] Neur o Employment/School Status: Employed. Smoking Status Never smoker; Exposure to Tobacco Smoke None; Cigarette Smoking Last 365 Days No; Reg Smoking Cessation Counseling No entered on: 12/23/18 Family History No Data Provided for This Section Advance Directives No Data Provided for This Section Functional Status No Data Provided for This Section
--- OUTSIDE RECORDS SUMMARY | 2020-02-12 00:16 | XMS REPORT ---
[...] End Date Status Dos age Date Azithromycin [facility] [id number] 500 MG Orally Nov 24, Dec 01, Active 1 tablet Once a day 2019 2019 Results No Known Results Summary Purpose eClinicalWorks Submission
--- OUTSIDE RECORDS SUMMARY | 2020-02-12 00:16 | XMS REPORT | Continuity of Care Document ---
:1985 Author Organization [facility] t Address [address] [place] [address] Care Team Providers Name Role Phone Marck Greenberg MD Primary Care Physician Tung HAMILTON, Isidro Rowe Attending Clinician Janice Guevara MD Attending Clinician Edwin HAMILTON [facility] Ricky HOBSON Attending Clinician Unavailable Marck Chung Attending Clinician EDWIN Admitting Clinician Unavailable Payers Payer Name Policy Type Policy Effective Date Expiration Date Sour ce Number BCBSBCBS CHOICE [id number] 2019 [place] PPO/FEDERAL 00:00:00 Yarsanism EMPL [id number] 2019-Rell ntPPO Problems Condition Condition Condition Status Onset Resolution Last Treating Co mments Source Name Details Category Date Date Treatment Clinician Date 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 [facility] neuritis neuritis 0-15 Method i 00:00: st 00 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 derso tic tic [...] to drug Latex Propensi Active Hives 2019-04 [facility] ty to 0-16 Methodi adverse 00:00: st reaction 00 s to drug Ondanset Propensi Active Headache 2019-04 [place] mikey Hcl ty to 0-16 Methodi adverse 00:00: st reaction 00 s to drug Gadobutr Propensi Active Other (See 2019-04 Vomiting1 [facility] ol ty to Comments) 0-15 020 Method i adverse 00:00: 8:30pm- st reaction [...] cephalex Active Memori a in in [place] Latex Latex Active Memrosa Silva Gadavist Gadavist Active Avery Silva Family History Family Member Diagnosis Comments Start Date Stop Date Source Paternal grandfather Kidney cancer Victor Manuel Shah Timothy Social History Social Habit Start Date Stop Date Quantity Comments Source Sex Assigned At [facility] ethodist Tobacco use and 2020-02-05 2020-02-05 Never used [facility] ethodist exposure 00:00:00 00:00:00 Alcohol intake 2020-02-05 2020-02-05 Current drinker [place] Yarsanism 00:00:00 00:00:00 of alcohol (finding) Alcohol Comment 2020-02-03 2020-02-03 occ drinker [place] Yarsanism 00:00:00 00:00:00 Social History 2018-10-01 2018-10-01 [facility] crystal 13:53:53 13:53:53 Smoking Status Start Date Stop Date Source Never smoker [place] Methodis t Medications Ordered Filled Start Stop Current Ordering Indication Dosage Frequency Signature Comments Components Source Medication Medication Date Date Medication? Clinician (SIG) Name Name topiramate 2019-04- 1{capsu QD Take 1 [place] (Trokendi [...] she ran out of it) atropine 1 2019-04- No 1[drp] Q.5D Administer Tom[place]kins % 0-20 [...] it last week - unknown reason); (per [place] Prescripti on Drug Monitoring Program, last filled 12/18/19, quantity: 30, day supply: 30) metoclopram 2020-1 2020- Yes 5mg Q.[id number] Take 1 [place]kins dung 0-20 - [id number] tablet (5 Met hodi (Reglan) 5 00:00: 23:59 3D mg total) s t MG tablet 00 :00 by mouth 3 (three) times a day as needed (nausea, vomiting) for up to 5 days. Vyvanse Vyvanse Yes Na Savage [address] [facility] = 1 Memoria ne 300 MG 9-06 tab, PO, l Oral Tablet 16:04: BID, # 180 Ricardo [Trileptal] 19 tab, 3 Refill(s), Pharmacy: [id number] HR Yes 100 mg = 1 Memori a topiramate 9-06 cap, PO, l 100 MG 16:04: Daily, # [place] Extended 10 90 cap, 3 Release Refill(s), Capsule Pharmacy: [Trokendi] [facility] #[id number] HR No 100 mg = 1 Memori a topiramate 9-04 cap, PO, l 100 MG 18:31: Daily, X Ricardo Extended 05 30 day, # Release 30 cap, 3 Capsule Refill(s), [[facility]] Pharmacy: [facility] No 300 mg = 1 Memoria ne 300 MG 9-04 tab, PO, l Oral Tablet 18:31: BID, X 30 H ermann [Trileptal] 02 day, # 60 tab, 3 Refill(s), Pharmacy: [facility] lisdexamfet Yes 30 mg = 1 M emoria amine 8-09 cap, PO, l dimesylate 16:20: QAM, # 30 He rmann 30 MG Oral 00 cap, 0 Capsule Refill(s) [Vyvanse] omeprazole Yes 20 mg = 1 Me moria 20 mg oral 7-17 cap, PO, l delayed 00:27: Daily, # Murray n release 00 30 cap, 2 capsule Refill(s), Pharmacy: [facility] Pharmacy [facility] Yes 300 mg = 1 Memoria ne 300 MG 7-03 tab, PO, l Oral Tablet 18:01: BID, # 60 H ermann [Trileptal] 00 tab, 2 Refill(s), Pharmacy: [facility] 24 HR Yes 100 mg = 1 Memori a topiramate 6-28 cap, PO, l 100 MG 14:50: Daily, # [place] Extended 00 30 cap, 3 Release Refill(s), Capsule Pharmacy: [Trokendi] [facility] topiramate Yes 25 mg = 1 Me moria 25 MG Oral 6-14 tab, PO, l Tablet 23:33: BID, # 60 Murray n [Topamax] 00 tab, 2 Refill(s), Pharmacy: [facility] Phenytoin Yes 200 mg = 2 Me moria sodium 100 6-13 cap, PO, l MG Extended 13:57: BID, # 120 Ricardo Release 00 cap, 3 Capsule Refill(s), [Dilantin] Pharmacy: [facility] Alprazolam Yes 0.5 mg = 1 M emoria 0.5 MG Oral 6-13 tab, PO, l Tablet 13:28: TID, 0 [place] [Xanax] 00 Refill(s) Zyrtec Yes Daily, 0 Memoria 6-13 Refill(s) l 13:28: [place] 00 Phenytoin No 100 mg = 1 [...] Name Name FLUCELVAX QUAD PF 2020-02-06 Completed [place] 00:00:00 Yarsanism Influenza Split Completed MD Charles on 00:00:00 Vital Signs Vital Name Observation Time Observation Value Comments Source Systolic blood 2020-02-08 15:49:49 130 mm[Hg] Murray mitchell Yarsanism pressure Diastolic blood 2020-02-08 15:49:49 61 mm[Hg] [place] on Yarsanism pressure Heart rate 2020-02-08 15:49:49 77 /min Turner Yarsanism Body temperature 2020-02-08 15:49:49 36.72 Staci [place] Yarsanism Respiratory rate 2020-02-08 15:49:49 17 /min [place] Yarsanism Oxygen saturation in 2020-02-08 15:49:49 95 /min [place] Yarsanism Arterial blood by Pulse oximetry Body weight 2020-02-08 04:47:48 99.837 kg [place] Yarsanism BMI 2020-02-08 04:47:48 35.53 kg/m2 [place] Yarsanism Body height 2020-02-04 01:01:00 167.6 cm [place] Yarsanism Systolic (mm Hg) 2018-12-23 18:03:00 Unruly rial [place] Diastolic (mm Hg) 2018-12-23 18:03:00 Mem orial [place]ardo Heart Rate 2018-12-23 18:03:00 Memorial [place] Respitory Rate 2018-12-23 18:03:00 Memori al [place] Height 2018-12-23 18:03:00 167.64 cm Memorial [place] Weight 2018-12-23 18:03:00 [facility] [place] BMI Calculated 2018-12-23 18:03:00 Memori al [place] BMI Calculated 2018-11-27 15:59:00 Memori al [place] Weight 2018-11-27 15:59:00 Memorial [place] Height 2018-11-27 15:59:00 167.64 cm Memorial [place] Heart Rate 2018-11-27 15:59:00 Memorial [place] Respitory Rate 2018-11-27 15:59:00 Memori al [place] Systolic (mm Hg) 2018-11-27 15:59:00 Unruly rial [place]ardo Diastolic (mm Hg) 2018-11-27 15:59:00 Mem orial [place] BMI Calculated 2018-10-16 14:19:00 Memori al [place] Weight 2018-10-16 14:19:00 Memorial [place] Height 2018-10-16 14:19:00 167.64 cm [facility] [place] Heart Rate 2018-10-16 14:19:00 Memorial [place] Respitory Rate 2018-10-16 14:19:00 Memori al [place] Systolic (mm Hg) 2018-10-16 14:19:00 Unruly rial [place] Diastolic (mm Hg) 2018-10-16 14:19:00 Mem orial [place] BMI Calculated 2018-10-01 13:18:00 Avery Garza Weight 2018-10-01 13:18:00 Cassie Silva Height 2018-10-01 13:18:00 167.64 cm Cassie Lrann Respitory Rate 2018-10-01 13:18:00 Avery Garza Heart Rate 2018-10-01 13:18:00 Cassie [place] Systolic (mm Hg) 2018-10-01 13:18:00 Unruly vang Ricardo Diastolic (mm Hg) 2018-10-01 13:18:00 Jc orial [place]ardo Procedures Procedure Date / Time Performing Clinician Source Performed VENIPUNC NEED PHYS 2020-02-08 10:39:11 Familia Colon [...] 06:18:00 Michael Maddox ESTIMATED GFR 2020-02-06 06:18:00 Michael Maddox XR CHEST 1 VW PORTABLE 2020-02-05 21:27:51 Michael Maddox ECG 12-LEAD 2020-02-05 21:12:53 Michael Maddox HC COMPLETE BLD COUNT 2020-02-05 06:00:00 Michael Maddoxist W/AUTO DIFF BASIC METABOLIC PANEL 2020-02-05 04:00:00 Michael Maddox ESTIMATED GFR 2020-02-05 04:00:00 Michael Maddox IGG SYNTHESIS RATE STUDY 2020-02-04 11:00:00 Varsha Michael Worley IR LUMBAR PUNCTURE 2020-02-04 10:00:00 Andressa Givens CSF CULTURE 2020-02-04 09:56:00 Andressa Givens Me thodist FUNGUS CULTURE 2020-02-04 09:56:00 Andressa Givens Me thodist AFB CULTURE 2020-02-04 09:56:00 Andressa Givens Me thodist CRYPTOCOCCAL ANTIGEN 2020-02-04 09:56:00 Andressa Givens on Yarsanism SCREEN GRAM STAIN 2020-02-04 09:56:00 Kim Guevara CSF CELL COUNT WITH 2020-02-04 09:56:00 Andressa Givens n Yarsanism DIFFERENTIAL GLUCOSE LEVEL, CSF 2020-02-04 09:56:00 Andressa Givens IGG SYNTHESIS RATE STUDY 2020-02-04 09:56:00 Andressa Givens VDRL, CSF SCREEN 2020-02-04 09:56:00 Andressa Givens ethodist LYME DISEASE REFLEXIVE 2020-02-04 09:56:00 Andressa Givens Yarsanism PANEL, CSF CYTOMEGALOVIRUS BY PCR 2020-02-04 09:56:00 Andressa Givens ENTEROVIRUS BY PCR 2020-02-04 09:56:00 Andressa Givens HERPES SIMPLEX VIRUS BY 2020-02-04 09:56:00 Andressa Givens PCR VARICELLA ZOSTER BY PCR 2020-02-04 09:56:00 Andressa Givens FLOW CYTOMETRY EVALUATION 2020-02-04 09:56:00 Andressa Givens [place] VIRUS ANTIBODY 2020-02-04 09:56:00 Andressa iGvens PANEL, CSF ANGIOTENSIN CONVERTING 2020-02-04 09:56:00 Andressa Givens ENZYME, CSF OLIGOCLONAL BANDING, CSF 2020-02-04 09:56:00 Kim Guevara MISCELLANEOUS REFERRAL 2020-02-04 09:56:00 Kim Guevara TEST EEG AWAKE/ASLEEP LESS THAN 2020-02-04 07:19:32 Andressa Givens 41 MIN ECG 12-LEAD 2020-02-04 04:50:41 Manan Hernández BLOOD CULTURE, AEROBIC & 2020-02-04 01:50:00 Aldo Pineda ANAEROBIC BLOOD CULTURE, AEROBIC & 2020-02-04 01:40:00 Aldo Pineda ANAEROBIC MISCELLANEOUS REFERRAL 2020-02-04 01:40:00 Manan Hernández TEST HC COMPLETE BLD COUNT 2020-02-04 01:40:00 Aldo Pineda on Yarsanism W/AUTO DIFF BASIC METABOLIC PANEL 2020-02-04 01:40:00 Aldo Pineda on Yarsanism ESTIMATED GFR 2020-02-04 01:40:00 Kim Guevara URINE [...] Hernández CONTRAST CYTOLOGY 2020-02-03 20:17:00 Michael Maddox LevyMattyMorris Turner Worley (NON-GYNECOLOGICAL) REQUEST COMPREHENSIVE METABOLIC 2020-02-03 18:35:00 Manan Hernández PANEL ESTIMATED GFR 2020-02-03 18:35:00 Kim Guevara Turner Worley HC COMPLETE BLD COUNT 2020-02-03 18:25:00 Manan Hernández W/AUTO DIFF ELMER 2020-02-03 18:25:00 Manan Hernández FOLATE LEVEL 2020-02-03 18:25:00 Manan Hernández VITAMIN B12 LEVEL 2020-02-03 18:25:00 Manan Hernández C-REACTIVE PROTEIN 2020-02-03 18:25:00 Manan Hernández Yarsanism HOMOCYSTINE, PLASMA 2020-02-03 18:25:00 Manan Hernández Yarsanism CORTISOL LEVEL, RANDOM 2020-02-03 18:25:00 Manan Hernández SEDIMENTATION RATE 2020-02-03 18:25:00 Manan Hernández RHEUMATOID FACTOR 2020-02-03 18:25:00 Manan Hernández THYROID STIMULATING 2020-02-03 18:25:00 Manan Hernández Yarsanism HORMONE T4, FREE 2020-02-03 18:25:00 Manan Hernández T3 2020-02-03 18:25:00 Manan Hernández SYPHILIS TOTAL ANTIBODY 2020-02-03 18:25:00 Manan Hernández HIV AG/AB COMBINATION 2020-02-03 18:25:00 Manan Hernández VITAMIN D 25 HYDROXY LEVEL 2020-02-03 18:25:00 Manan Hernández B. BURGDORFERI ABS TOTAL, 2020-02-03 18:25:00 Manan Hernández SERUM CT HEAD WO CONTRAST 2020-02-03 16:14:55 Manan Hernández Yarsanism HCG QUANTITATIVE, SERUM 2020-02-03 14:27:00 Manan Hernández Yarsanism Tubal ligation [facility] Plan of Care Planned Activity Planned Date Details Comments Source Future Scheduled 2023-02-02 Screening for Turner Me thodist Test 00:00:00 malignant neoplasm of cervix (procedure) [code = 895092211] Encounters Start End Encounter Admission Attending Care Care Encounter Source Date/Time Date/Time Type Type Clinicians Facility Department ID 2020-02-03 2020-02-08 Inpatient [facility], [facility] [id number] [place] 00:00:00 00:00:00 MICHAEL [address] 2020-01-17 2020-01-17 Outpatient [facility] [id number] [facility]00 [facility] Outpat[facility] ent Clinics 2019-12-14 2019-12-14 [facility] [id number] 10:48:00 10:48:00 [employer] Pie[email or web address] [facility] Medicine l Medicine Outpati ent Clinics 2019-11-23 2019-11-23 [facility] [id number] 09:00:00 09:00:00 [email or web address] [facility] Medicine l Medicine Outpati ent Clinics 2019-11-23 2019-11-23 [facility] [id number] 08:05:00 08:05:00 [facility] Medicine Medicine Outpati ent Clinics 2019-10-15 2019-10-15 [facility] [id number] 08:44:00 08:44:00 [employer] [facility] Medicine l Medicine Outpati ent Clinics 2019-09-07 2019-09-07 [facility] [id number] 11:56[facility]00 11[facility]56[facility] Medicine l Medicine Outpati ent Clinics 2019-08-13 2019-08-13 [facility] [id number] 10:20:00 10:20:00 [email or web address] [facility] Medicine l Medicine Outpati ent Clinics 2019-08-12 2019-08-12 [facility] [id number] 09:49:00 09:49:00 t Squires [employer] s - Drive [facility] Medicine Medicine Outpati ent Clinics 2019-06-15 2019-06-15 [facility] [id number] 15:24:00 15:24:00 t Squires [employer]on[employer] s - Drive [facility] Medicine Outpati ent Clinics 2019-06-09 2019-06-09 [facility] [id number] 08:40:00 08:40:[address] [facility] [address] Cupple s - Road [facility] l Medicine Outpati ent Clinics 2019-06-03 2019-06-03 [facility] [id number] 10:52:00 10:52:00 t Ylopo s - Drive [facility] Medicine Outpati ent Clinics 2019-05-28 2019-05-28 [facility] [id number] 16:20:00 16:20:00 t Ylopo s - [email or web address] [facility] Medicine Outpati ent Clinics 2019-05-21 2019-05-22 Outpatient MHMISCHER MHMISCHER [id number] 14:44:00 23:59:59 00 2019-04-28 2019-04-28 Outpatient Juliet [email or web address]SCHER MISCHER [id number] 13:00:00 13:00:00 David Acharya 2019-01-01 2019-01-01 [facility] [id number] 15:32:00 15:32:00 t Squires [employer] s - Drive [facility] Medicine Outpati ent Clinics 2018-12-31 2018-12-31 [facility] [id number] 09:55:00 09:55:00 t Squires [employer] s - Drive [facility] Medicine Outpati ent Clinics 2018-12-30 2018-12-30 [facility] [id number] 13:25:00 13:25:00 t Squires [employer] s - Drive [facility] Medicine Outpati ent Clinics 2018-12-30 2018-12-30 [facility] [id number] 08:00:00 08:00:00 t Squires [employer] s - Drive [facility] Outpati ent Clinics 2018-12-29 2018-12-29 [facility] [id number] 09:42:00 09:42:00 t Squires Squires [email or web address] s - Drive [facility] Outpati ent Clinics 2018-12-23 2018-12-23 Outpatient ASIF ChungSCHBINU [id number] 13:15:00 23:59:59 David 04 [facility] 2018-12-04 2018-12-04 [facility] [id number] 16:20:00 16:20:00 t Squires [employer] s - Drive [facility] Outpati ent Clinics 2018-11-30 2018-11-30 [facility] [id number] 10:08:00 10:08:00 t [facility] Outpati ent Clinics 2018-11-27 2018-11-27 Outpatient ASIF Chung MALISSASCHBINU [id number] 10:45:00 23:59:59 David 03 [facility] 2018-11-27 2018-11-27 [facility] [id number] 13:00:00 13:00:00 t Squires [employer] s - [email or web address] [facility] Outpati ent Clinics 2018-10-29 2018-10-29 [facility] [id number] 10:40:00 10:40:00 t Squires [employer] s - Drive [facility] Outpati ent Clinics 2018-10-16 2018-10-16 Outpatient ASIF Chung MALISSASCHBINU [id number] 09:00:00 23:59:59 David 02 [facility] 2018-10-02 2018-10-02 Outpatient ASIF Chung MALISSASCHBINU [id number] 15:00:00 23:59:59 David 01 [facility] 2018-10-01 2018-10-01 Outpatient DEDE ChungSCHBINU AGUAYOSCHBINU [id number] 08:15:00 23:59:59 David 00 [facility] 2018-09-30 2018-09-30 [facility] [id number] 13:00:00 13:00:00 t Squires Squires [email or web address] Luke s - Drive [facility] Medicine Outpati ent Clinics 2018-08-31 2018-08-31 [facility] [id number] 11:00:00 11:00:00 t Squires Squires [employer] s - Drive [facility] Medicine Outpati ent Clinics 2018-07-27 2018-07-27 [facility] [id number] 13:54:00 13:54:00 t Squires Squires [employer] Luke s - Drive [facility] Medicine Outpati ent Clinics 2018-07-23 2018-07-23 [facility] [id number] 08:53:00 08:53:00 t Squires [employer] s - Drive [facility] Medicine Outpati ent Clinics 2018-07-23 2018-07-23 [facility] [id number] 08:15:00 08:15:00 t Squires [employer] s - Drive [facility] Medicine Outpati ent Clinics 2018-06-22 2018-06-22 [facility] [id number] 10:30:00 10:30:00 t Squires [employer] s - [email or web address] [facility] Medicine Outpati ent Clinics 2018-05-04 2018-05-04 [facility] [id number] 12:00:00 12:00:00 t Squires [employer] s - Drive [facility] Medicine Outpati ent Clinics 2018-04-02 2018-04-02 [facility] [id number] 09:00:00 09:00:00 t Squires [employer]onwriter s - Drive [facility] Medicine Outpati ent Clinics Results Test Description Test Time Test Comments Results Result Comments Source Cytomegalovirus by PCR 2020-02-11 15:29:57 Test Item Value Reference Range Interpretation Comme nts Cytomegalovirus by PCR Not-Detected Not-Detected IU/mL (test code = 5000-5) Cytomegalovirus by PCR See link below for PDF Case Number: (test code = 1089) Lab Report [id number] [place] MethodistAngiotensin converting enzyme, [id number] 19:56:01 Test Item Value Reference Range Interpretation Comments Angiotensin 0.6 U/L 0-2.5 This test was d eveloped converting enzyme, and its p erformance CSF (test code = [facility] 45245-6) determined by A [facility] Meeps. T he U.S. Food and Drug Administration has not approved or kole ared this test; however, FDA clearance or ap proval is not currently r equired for clinical us e. The results are not intended to be used as t he sole means for clini conrad diagnosis or pa tient management decisions.Perfo rmed By: BENITA [address] [place], [place] [address]D aboratory Director: Nai Rushing MD [facility] virus antibody panel, [id number] 17:17:47 Test Item Value Reference Range Interpretation Comments West Nile IgG, CSF 0.09 <=1.29 IV INTERPRET YOLANDA INFORMATION: (test code = [place] [address]-2) DARSHANA, CSF 1.2 9 IV or less ....... Negativ e: No significant level of West Nile virus IgG antibody d etected. 1.30 - 1.49 IV ..... ... Equivocal: Questionable presenc e of West Nile virus IgG antib chu detected. Repeat testing in 10-14 days may be helpful. 1. 50 IV or greater .... Po sitive: Presence of IgG anti body to West Nile virus detected, suggestive of current or past infection.This test is intended to be used as a semi-quantitati ve means of detecting West Nile virus-specific IgG in CSF samples in ic h there is a clinical suspic ion of West Nile Virus infe ction. This test should not be used solely for heladio titative purposes, nor s hould the results be used without correlation to clinical history or othe r data. Because other m embers of the Flaviviridae fa priscila, such as Maribel encep halitis virus, show extensive cross-reactivit y with West Nile virus, ser ologic testing specific for th jean carlos species should be consi dered.The detection of an tibodies to West Nile virus in cerebrospinal f luid may indicate centra l nervous system infectio n. However, consideration m ust be given to possible con tamination by blood or transf er of serum antibodies acro ss the blood-brain bar rier.Test developed and c haracteristics determined by A [facility]. S ee Compliance Statement B: Vigme/ West Nile IgM, CSF 0.02 <=0.89 IV INTERPRET YOLANDA INFORMATION: (test code = [place] [address]-5) DARSHANA, CSF0.89 IV or less ...... Negative - No significant lev el of W est Nile virus IgM antibody detected. 0.90-1.10 IV ......... Equiv ocal - Questionable pr esence of West Nile virus IgM antib chu det ected. Repeat testing in 10-14 days may be helpful.1.11 IV or greater ... Positive - Presence of IgM antibody to Dale t Nile virus detected, suggestive of c urrent o r recent infection.This test is intended to be used as a semi-quantitati ve means of detecting West Nile virus-specific IgM in CSF samples in ic h there is a clinical suspic ion of West Nile virus infe ction. This test should not be used solely for heladio titative purposes, nor s hould the results be used without correlation to clinical history or othe r data. Because other m embers of the Flaviviridae fa [facility], such as Maribel encep halitis virus, show extensive cross-reactivit y with West Nile virus, ser ologic testing specific for th jean carlos species should be consi dered.The detection of an tibodies to West Nile virus in cerebrospinal f luid may indicate centra l nervous system infectio n. However, consideration m ust be given to possible con tamination by blood or transf er of serum antibodies acro ss the blood-brain bar rier.Test developed and c haracteristics determined by A [facility]. S ee Compliance Statement B: Advisity.[employer]/[facility] erformed By: [employer] [address] [place], [place] [address]Uvbeoovsjj Director: MD Turner Milian MethodistMiscellaneous referral [id number] 08:48:03 Test Item Value Reference Range Interpretation Comments [facility] test name JCV QUANT PCR (test code = 2566) Mis test result see note JCV qPCR (C SF) TEST (test code = RESULT UNIT 1743) REF RA NGE JCV qPCR Not De tected copies/mL Not Detected Assay Range: 72 copies/mL to 1.00E+08 copies/mL The limit of quantitation (L OQ) is 72 copies/mL. BETH v irus DNA detected below the LOQ will be reporte d as Detected:<72 co pies/mL. This test was d eveloped and its perform ance characteristics determined by [facility]. It olson s not been cleared or approved by the U.S. Marni d and Drug Administra tion. Results should be used in conjunction with clinical findin gs, and should not form the sole basis for a socorro gnosis or treatment decis ion. Performed at: [facility] - [address] [facility] culture, aerobic & [id number] 05:33:06 Test Item Value Reference Range Interpretation Comments Blood culture No growth Specimen isolate (test after 5 days InformationSpe cimen code = 600-7) of Source: BloodS pecimen incubation. [facility] MethodistLyme disease reflexive panel, [id number] 23:48:04 Test Item Value Reference Range Interpretation Comments B. burgdorferi Abs 0.08 <=0.99 When the Borrelia DARSHANA, CSF (test code burgdo rferi Abs, Total by = [id number]) DARSHANA result is negative, no further test ing is done.INTERPRETI VE INFORMATION: Lalit rrelia burgdorferi Abs , DARSHANA, CSF 0.99 REJI or les s: ......... Negat yolanda - Antibody to B . burgdorferi not [...] BENITA stone. See Compliance Stat ement B: Advisity.Veotag/CSP erformed By: BENITA Wh[email or web address] [place], [place] [address]Wdqbymi ory Director: Nai Rushing MD [facility] NEED PHYS SKILL,DX OR [id number] 10:39:11CFamilia hickey RN 02/08/2020 10:40 AMMidline Date/Time: 02/08/2020 10:39 AMPerformed by: Familia Colon RNAuthorized by: Michael Maddox MD Consent: Consent [...] Flat Vessel Size (mm): 5 Indication: Known alf IV therapy Location: Left basilic Device Type:Non-valved Catheter Lumen(s): Single lumen Catheter size: 3 Fr Catheter to vein ratio: 24%MidLine Characteristics: Catheter Brand: SL PROVENA MIDLINE Internal Catheter Length (cm): 12 TotalCatheter Length (cm): 12 Catheter Lot Number: [id number] Catheter Expiration Date: 2Procedure details: Landmarks identified: [...] Patient tolerance of procedure: Tolerated well, no immediatecomplicationsHaskell MethodistVDRL, CSF eclwnb3942-62-56 02:23:37 Test Item Value Reference Range Interpretation Comments VDRL, CSF screen (test code = Non-reactive Non-reactive 3046) [facility] duplex venous upper tolxtuqgu1018-26-34 22:03:00Interface, Radiology Results In - 02/07/2020 10:03 PM CDT Vascular Ultrasound Laboratory Upper Extremity Venous [address] [place] [address] Pat.Name: SNOW ARGUETA Pat.ID: [id number] .Date: 02/07/2020 Refer.MD: MICHAEL MADDOX MD Exam Time: 4:33:00 PM Study Type:UE Venous Height: 66in Weight: 220lb BSA: 2.08 m2 Age: 7 1985,34Y Sex: FEMALE Sonogrphr: Ryan Torres RVT Pat. Stat.:Inpatient Room: VE61-3064-A Tape Vol: HV, CPT - 4: 99304 Echo Event ID:[id number] Order ID: [id number] Reason for Study:Right arm pain and swelling. [...] upper arm basilicvein. FINDINGS:-- Signed 02/07/2020 10:03 Yessi Obrien MD, [facility] MethodistOligoclonal banding, PJQ3324-27-00 15:44:13 Test Item Value Reference Range Interpretation Comments Protein, CSF (test code 24 mg/dL = 2880-3) Prealbumin, CSF (%) 6.4 % 3.5-11.1 (test code = 96160-8) Albumin, CSF (test code 66.1 % 40.8-66.2 = 74136-6) Alpha 1, CSF (%) (test 2.4 % 2.3-6.4 code = 01844-5) Alpha 2, CSF (%) (test 6.1 % 6.1-12.6 code = 67549-5) Beta, CSF (%) (test 13.1 % 11.7-24.1 code = 35619-8) Gamma, CSF (%) (test 5.9 % 5.6-12.2 code = 78461-7) CSF extended See Comment An essentially interpretation (test normal CSF protein code = 39586-5) study. No oligoclonal ban ds seen. CSF interpretation See Comment Miguel Boyd, PhD; (test code = 1163) Fam nettles MD [facility] MethodistEnterovirus by KDS0677-91-60 15:38:15 Test Item Value Reference Range Interpretation Comments Enterovirus PCR (test See link below Not-Detected Case Number: code = 70875-6) for PDF Lab [id number] Report Turner WorleyEpstein Bates Virus (EBV) by [id number] 15:13:17 Test Item Value Reference Range Interpretation Comments Ablert Bates Not-Detected Not-Detected virus, PCR (test copies/mL code = 5005-4) Albert Bates See link below Case Number: virus, PCR (test for PDF Lab [id number] code = 1340) Report Turner WorleyVaricella zoster by QOQ5487-07-49 14:54:16 Test Item Value Reference Range Interpretation Comments VZV result (test Not-Detected Not-Detected code = 26900-9) copies/mL Varicella zoster, See link below Case Num rupal: pcr (test code = for PDF Lab [id number] 2 124) Report Turner WhatleyistCSF eepeibp8147-71-99 14:08:32 Test Item Value Reference Range Interpretation Comments CSF culture No growth Specimen isolate (test after 3 days. InformationSp ecimen code = 606-4) Source: CSF (S naseem Fluid)Specimen Site: CSF (spinal fluid) Turner MethodistFlow cytometry vlfafjssmu2923-32-41 09:52:18 Test Item Value Reference Range Interpretation Comments Case number (test code = [id number]) Flow cytometry evaluation See link below for (test code = 6680759) PDF Lab Report Turner WorleyVENIPUNC NEED PHYS SKILL,DX OR [id number] 09:18:07Javier Kolb RN 02/07/2020 9:21 AMMidline Date/Time: [...] to vein ratio: 41%MidLine Characteristics: Catheter Brand: ANGIODYNAMICS External Catheter Length (cm): 0 Internal Catheter Length (cm): 12 Total Catheter Length (cm): 12 Catheter Lot Number: [id number] Catheter Expiration Date: 1Procedure details: Landmarks identified: [...] tolerance of procedure: Tolerated well, no immediate complicationsHouston MethodistBasic metabolic dcgoe7350-59-60 08:30:51 Test Item Value Reference Range Interpretation Comments Sodium (test code = 2951-2) 138 135- 148 mEq/L Potassium (test code = 2823-3) 3.9 3.5- 5.0 mEq/L Chloride (test code = 2075-0) 101 98- 112 mEq/L CO2 (test code = 8-9) 24 24- 31 mEq/L Anion gap (test code = 64388-3) 13@ANIO 7- 15 mEq/L BUN (test code = 3094-0) 18 mg/dL 6-20 Creatinine (test code = 2160-0) 0.70 mg/dL 0.5-0.9 Glucose (test code = 2345-7) 103 mg/dL 65-99 H Calcium (test code = 97348-4) 8.4 mg/dL 8.3-10.2 Lab Interpretation (test code = Abnormal 02820-3) [facility] MethodistEstimated [id number] 08:30:51 Test Item Value Reference Range Interpretation Comments Estimated GFR (test >=90 mL/min/1.73 m2 [facility] code = 5488) InterpretationG 1 >=90 Normal or highG2 60-89 Mildly earjnrtquR8g 45-59 Mildly to mode rately yntbcjuepE1q 30-44 Moderately to severely decreasedG4 15-29 Severely decre asedG5 <15 Kidn ey failureThe eGFR was calculated morena g the Chronic Kidney Disease Epidemiology Co llaboration (CKD-EPI) equat ion. Interpretation is based on recommendations of the National Kidney Foundation-Kidn ey Disease Outcomes Qualit y Initiative (NKF-KDOQI) pub lished in 2014. Turner WorleyB. burgdorferi Abs total, cvrwd3811-59-85 08:01:42 Test Item Value Reference Range Interpretation [...] burgdorferi detected.Perfor med By: [facility] [address] [place], [place] [address]R aboratory Director: Nai Rushing MD [facility] with platelet and irevwzrnsvmo0619-74-75 07:57:58 Test Item Value Reference Range Interpretation Comments WBC (test code = 30428-4) 16.70 4.50- 11.00 k/uL H RBC (test code = 67130-1) 4.30 m/uL 4.2-5.5 HGB (test code = 718-7) 12.8 g/dL 12-16 HCT (test code = 4544-3) 38.2 % 37-47 MCV (test code = 787-2) 88.8 fL 82-100 MCH (test code = 785-6) 29.8 pg 27-34 MCHC (test code = 786-4) 33.5 g/dL 31-37 RDW - SD (test code = 40.9 fL 37-55 13710-9) MPV (test code = 42496-0) 12.3 fL 8.8-13.2 Platelet count (test code 197 150- 400 k/uL = 36404-1) Nucleated RBC (test code 0.00 /100 WBC = 44624-1) Neutrophils (test code = 74.7 % 39-69 H 32324-5) Lymphocytes (test code = 15.6 % 25-45 L 35139-7) Monocytes (test code = 6.6 % 0-10 73020-2) Eosinophils (test code = 0.0 % 0-5 91568-8) Basophils (test code = 0.3 % 0-1 24593-6) Immature granulocytes 2.8 % 0-1 H "Immat ure (test code = 26507-0) granul ocytes" (promyelocytes, myelocytes, metamyelocytes) Lab Interpretation (test Abnormal code = 63164-0) [facility] 12 kvog5500-85-53 12:49:19 Test Item Value Reference Range Interpretation Comments Ventricular rate (test 78 code = 253) Atrial rate (test code 78 = 255) MO interval (test code 144 = 266) QRSD [...] of 04-FEB-2020 04:50,-No significant change was found- [facility] MethodistXR Chest 1 Vw Excddely5790-38-08 22:09:52Hm Interface, Radiology Results Incoming - 02/05/2020 10:12 PM CDTEXAMINATION: XR CHEST 1 VW PORTABLECLINICAL HISTORY: 34 years Female chest pressure on exertionCOMPARISON: None.IMPRESSION:No acute cardiopulmonary disease.FINDINGS:The cardiomediastinal silhouette, lungs, and regional skeletal structures are within normal limits for age. [facility]-JK70TZSSDklhqmy MethodistHerpes simplex virus by [id number] 20:12:15 Test Item Value Reference Range Interpretation Comments Herpes virus, PCR Not-Detected Not-Detected (test code = 24747-6) Herpes virus, PCR See link below Case Num rupal: (test code = 1523) for PDF Lab [id number] Report [place] MethodistCytology (non-gynecological) njaqgmv4614-88-76 18:15:16 Test Item Value Reference Range Interpretation Comments Case number (test code = [id number]) Cytology See link below for (non-gynecological) PDF Lab Report report (test code = 1178) Result status (test code This is Final Report = [id number]) for [id number] Turner MethodistCryptococcal antigen, uzcbtk1095-02-05 17:47:33 Test Item Value Reference Interpretation Comments Range Cryptococcal Ag Negative - No Specimen (test code = Cryptococcus InformationSpec imen 9820-2) antigen detected. Source: CS F (Spinal Fluid)Specimen Site: CSF (spinal flu id) Turner MdscxwtjxDPA7461-33-17 13:52:17 Test Item Value Reference Range Interpretation Comments ELMER screen (test Negative Negative Test perfor med using NOVA code = 550) Lite DAPI ELMER k it (Indirect Immunofluoresce nce Assay) for Anti-Nuclea r Antibody on INOVA QUANTA-Ly ser 160 Analyzer. [facility] MethodginettePROMISE [facility] cell count with emejwtcakcic0513-43-91 13:21:52 Test Item Value Reference Range Interpretation Comments Color, CSF (test code = Colorless 50227-3) Appearance, CSF (test Clear Correc leon result code = 83545-1) called to Maximiliano Mallory/Stefano T18 02/04/2020 13: 21 Corrected resul t; previously repo rted as Slightly haz y on 02/04/2020 at 1 1:19 by DH2 RBC, CSF (test code = 33 0- 1 /CMM H 09729-7) WBC, CSF (test code = 1 0- 5 /CMM 06956-2) CSF mononuclear cell 1/CMM (test code = 29504-1) Lab Interpretation (test Abnormal code = 76528-5) Haskell MethodistG synthesis rate kyjmi7600-21-45 13:09:21 Test Item Value Reference Range Interpretation Comments IgG albumin ratio, SEE COMMENT 0.00-0.23 Footnote- -------- CSF (test code = 1588) IgG index, CSF SEE COMMENT 0.01-0.63 Footnote----- ---- (test code = 48955-0) IgG synthetic rate SEE COMMENT -9.90 - 3.30 mg-day Fo otnote--------- (test code = 91793-8) Q-albumin ratio, SEE COMMENT 2.00-7.50 Footnote--- ------ CSF (test code = 1756-6) IgG, CSF (test code SEE COMMENT 1-3 Footnote --------- = 2464-6) Albumin, CSF (test SEE COMMENT 10-30 Footnote- -------- code = 34596-0) IgG (test code = SEE COMMENT 700-1600 Footnote--- ------Cor 2465-3) rected result; previously repo rted as 852 on 02/03 at 12:58 by I/A [place] Albumin, S (test SEE COMMENT 6944-0252 Footnote--- ------DUP code = 09616-8) LICATE ORDER.Corrected result; previou sly reported as 370 0.0 on 02/04/2020 a t 12:58 by I/AUT [facility] MethodistGram llyjo8373-59-41 12:47:25 Test Item Value Reference Range Interpretation Comments Gram stain No WBC's or Specimen isolate (test organisms seen. Information Specimen code = 1469) Source: CSF (Sp inal Fluid)Specimen Site: CSF (spinal fluid) [facility] MethodistGlucose level, SCY2837-97-60 11:17:32 Test Item Value Reference Range Interpretation Comments Glucose, CSF (test code = 2342-4) 90 mg/dL 40-70 H Lab Interpretation (test code = Abnormal 06558-5) [facility] MethodistEEG (routine)2020-02-04 10:51:25EEG AWAKE AND ASLEEP Date of Service: 02/04/2020 Awake Recording: The occipital dominant rhythm is 10-11 Hz. 18-22 Hz activity is present in all regions. Sleep Recording: No epileptiform activity was recorded. Hyperventilation: No abnormality elicited. Photic Stimulation: No abnormality elicited. Impression The background activity is within the range of normal variation. No lateralized or epileptiform activity was recorded. ICD-10 Code: V692Lpmigvu MethodistIR Lumbar Puncture by Radiology 2020-02-04 10:23:15Hm Interface, Radiology Results - 02/04/2020 10:26 AM CDTEXAMINATION: IR LUMBAR PUNCTURECLINICAL [...] lumbar puncture.Opening pressure was 21 cm of water.[facility]-[id number] ChacortaistCOVID-19 qualitative PCR 2020-02-04 05:24:14 Test Item Value Reference Range Interpretation Comments Interpretation (test Negative results do code = 7241835) not preclude 2019-nCoV infection and should not be used as the sole basis for treatment or other patient management decisions. Negative results must be combined with clinical observations, patient history, and epidemiological information. COVID-19 qualitative Not-Detected Not-Detected PCR result (test code = 10518-6) COVID-19 qualitative See link below for C ase Number: PCR (test code = PDF Lab Report [id number]) Haskell MethodistUrinalysis screen and microscopy, with reflex to culture 2020-02-04 05:13:36 Test Item Value Reference Range Interpretation Comments Specimen site (test code = Clean catch 6969759) Color, UA (test code = 5778-6) Yellow Appearance, UA (test code = Clear 5767-9) Specific gravity, UA (test code = 1.036 1.001-1.035 H 5811-5) pH, UA (test code = 5803-2) 5.0 5.0-8.5 Protein, UA (test code = 64601-2) 1+ Negative A Glucose, UA (test code = 05502-2) 1+ Negative A Ketones, UA (test code = 2514-8) Negative Negative Bilirubin, UA (test code = Negative Negative 5770-3) Blood, UA (test code = 5794-3) Negative Negative Nitrite, UA (test code = 5802-4) Negative Negative Urobilinogen, UA (test code = <2.0 <2.0 12333-0) Leukocyte esterase, UA (test code Negative Negative = 5799-2) Epithelial cells, UA (test code = 2 /HPF 5787-7) WBC, UA (test code = 5821-4) <1 0- 4 /HPF RBC, UA (test code = 09069-5) None seen 0- 5 /HPF Bacteria, UA (test code = None seen None seen 35199-6) Yeast, UA (test code = 41801-2) Few A Yeast with pseudohyphae, UA (test None seen code = 99195-4) Hyaline casts, UA (test code = 4 /LPF 5796-8) Lab Interpretation (test code = Abnormal 24053-7) Haskell MethodistUrine drugs of abuse wwempo7496-39-32 03:10:50 Test Item Value Reference Interpretation Comments Range Amphetamine screen, Negative urine (test code = 3349-8) Barbiturate screen, Negative urine (test code = 3377-9) Benzodiazepine Negative screen, urine (test code = 3390-2) Cocaine screen, Negative urine (test code = 3397-7) Methadone Negative metabolite (EDDP), urine (test code = 79430-3) Opiates screen, Positive A urine (test code = 3879-4) Oxycodone screen, Negative urine (test code = 74998-1) Phencyclidine Negative screen, urine (test code = 3936-2) Tricyclic screen, Negative urine (test code = 22589-0) Cannabinoid screen, Negative Drug scr een minimum [...] ired. Lab Interpretation Abnormal (test code = 42506-4) Turner Hinton xrbliyk9904-07-11 02:50:08 Test Item Value Reference Range Interpretation Comments Urine culture (test SEE COMMENT Bacteriu kieran screen code = 3270631) negative. [facility] YarsanismHAWTHORN CENTER Thoracic Spine W Zshxthsi7838-07-43 22:38:25Hm Interface, Radiology Results 02/03/2020 10:41 PM [...] paracentral disc protrusion at T8-T9 with no stenosis.[id number] Brain & Orbit W Wo Ykkcmrbn2990-85-10 22:36:27Hm Interface, Radiology Results 02/03/2020 10:39 PM [...] are preserved.IMPRESSION:Unremarkable MRI of the brain and orbits.[facility]-[id number] [facility] Cervical Spine W Xlvaqbol0966-26-59 22:33:20Hm Interface, Radiology Results 02/03/2020 10:36 PM [...] are unremarkable.IMPRESSION:No keagan dence of cervical cord demyelination.[facility]-[id number] MethodistVitamin D 25 hydroxy mwuux7443-62-42 20:37:03 Test Item Value Reference Range Interpretation Comments Vitamin D, 48.7 ng/mL 30-150 This assay repo rts the 25-hydroxy (test sum of 25-h ydroxy code = 1988-06) vitamin D3 an d 25-hydroxy gokul min [...] contact lab for alternative met hods. Turner Verdugoyphilis total ietdjjfw4782-28-51 20:32:43 Test Item Value Reference Range Interpretation Comments Syphilis total Non-reactive Non-reactive No serologica l antibody (test code evidence of syphilis = 6194) infection. Turner WorleyHIV Ag/Ab uahcxefaykz7340-06-43 20:28:37 Test Item Value Reference Range Interpretation Comments HIV Ag/Ab combination (test code Non-reactive Non-reactive = 5299) Turner WorleyVitamin B12 ppatx3395-49-25 19:35:13 Test Item Value Reference Range Interpretation Comments Vitamin B12 (test 541 pg/mL 211-946 Significan t overlap code = 2132-9) exists betwee n normal and deficiency states.However, most patients with deficiencies wi ll have Serum B12 <2 00 pg/mL. Turner WorleyFolate vftju8731-82-63 19:35:13 Test Item Value Reference Range Interpretation Comments Folate (test code = 2284-8) 8.0 ng/mL 4.8-24.2 Turner Verdugoedimentation bwrs4587-05-04 19:34:55 Test Item Value Reference Range Interpretation Comments Sedimentation rate (test code = 7 0- 20 mm/hr 36026-1) Turner WhatleyistT4, spzz3259-73-40 19:25:51 Test Item Value Reference Range Interpretation Comments T4, free (test code = 3024-7) 1.0 ng/dL 0.9-1.7 Turner WorleyLieqmkqaoP61386-45-17 19:25:51 Test Item Value Reference Range Interpretation Comments T3 (test code = 3053-6) 70 ng/dL 80-200 L Lab Interpretation (test code = Abnormal 70180-2) [facility] MethodistCortisol level, jfeuzl3180-63-27 19:25:00 Test Item Value Reference Range Interpretation Comments Cortisol, random 2 ug/dL Reference R anges are not (test code = 2143-6) establi shed for non-timed Cortisol levels .Reference Range for Timed Cortisol: 6 - 10 AM 6 - 18 ug/dl 4 - 8 PM 3 - 11 ug/ dl Haskell MethodistThyroid stimulating deybhse4428-63-11 19:25:00 Test Item Value Reference Range Interpretation Comments TSH (test code = 3016-3) 1.12 0.27- 4.20 uIU/mL Haskell MethodistComprehensive metabolic qyyft5021-03-59 19:24:36 Test Item Value Reference Range Interpretation Comments Sodium (test code = 140 135- 148 mEq/L 2951-2) Potassium (test code = 3.8 3.5- 5.0 mEq/L 2823-3) Chloride (test code = 104 98- 112 mEq/L 5-0) CO2 (test code = 2027-9) 18 24- 31 mEq/L L Anion gap (test code = 18@ANIO 7- 15 mEq/L H 66596-0) BUN (test code = 3094-0) 16 mg/dL 6-20 Creatinine (test code = 0.62 mg/dL 0.5-0.9 2160-0) Glucose (test code = 137 mg/dL 65-99 H 2345-7) Calcium (test code = 9.0 mg/dL 8.3-10.2 25242-4) Protein (test code = 7.2 g/dL 6.3-8.3 -[place] n 2885-2) 4.6-7.0 g/dL1 week 4.4-7 .6 g/dL7 months-1y ear 5.1-7 .3 g/dL1-2 years 5.6-7 .5 g/dL>3 years 6.0-8 .0 g/jS09-626 6.3-8 .3 g/dL Albumin (test code = 3.9 g/dL 3.5-5 1751-7) A/G ratio (test code = 1.2 0.7-3.8 1759-0) Alkaline phosphatase 57 U/L 35-104 (test code = 6768-6) AST (test code = 1920-8) 15 U/L 10-35 ALT (test code = 1742-6) 25 U/L 5-50 Total bilirubin (test 0.3 mg/dL 0-1.2 code = 1974-2) Lab Interpretation (test Abnormal code = 74629-4) Haskell MethodistC-reactive qozjuzo1834-27-28 19:21:52 Test Item Value Reference Range Interpretation Comments CRP (test code = 1987-) <0.30 0-0.5 [facility] MethodisthCG quantitative, effyy4074-07-60 19:20:00 Test Item Value Reference Range Interpretation Comments hCG quantitative, <1 0- 5 mIU/mL Reference range for HCG serum (test code = Quant ashutosh lies to males and 38691-7) non-fem ales.Post Menopausal 0.0 - 8.1 mIU/mL [facility] MethodistRheumatoid fdkoxn7265-29-12 19:14:45 Test Item Value Reference Range Interpretation Comments Rheumatoid factor (test code = 47718-8) <10 0- 13 IU/mL [facility] MethodistHomocystine, hobolm6178-11-23 19:14:45 Test Item Value Reference Range Interpretation Comments Homocysteine (test 6.4 umol/L 0-15 The risk for coronary code = 13502-0) vascular dis ease increases progressively w ith homocysteine concentration. A 3.4 times greater r isk is associated with a homocysteine concentration o f greater than 15.8 umol/L as jt red to a concentration below 14.1 umol/L. Haskell MethodistCT Head Wo Hwxuutgx4376-05-09 16:17:18Hm Interface, Radiology Results 02/03/2020 4:20 PM CDTEXAM: CT HEAD WO [...] are intact.IMPRESSION:No CT evidence for acute intracranial abnormality.[id number] Yarsanism
--- OUTSIDE RECORDS SUMMARY | 2020-02-12 00:16 | XMS REPORT ---
[...] Dosage System Date Date Trokendi XR NDC [id number] 100mg By Mouth Active n ot defined Loestrin [facility] 53647675819 1.5-30 MG-MCG Active 1 tab let 1.530 () Orally Once a day Vyvanse [facility] 36367311312 40 MG Orally Jun 03, Active 1 capsu le Once a day 2019 in the morning Singulair [facility] 31312335510 10 MG Orally Active 1 tab let in Once a day the evening Xanax [facility] 85443426233 0.5 MG Orally Active 1 tabl et once a day prn anxiety Flonase [facility] 71498258683 50 MCG/ACT Active 1 spray i n Nasally Once a each day nostril Azelastine HCl [facility] 54771691343 0.05 % July Active 1 kristi p into Ophthalmic twice 2019 affect ed a day prn itchy eye eyes Vyvanse [facility] 54278199954 50 MG Orally October 15, Active 1 caps ule Once a day 2019 in the morning Trileptal [facility] 82113007245 300 MG Orally Active 1 ta blet Twice a day Results No Known Results Summary Purpose eClinicalWorks Submission
--- OUTSIDE RECORDS SUMMARY | 2020-02-12 00:17 | XMS REPORT ---
[...] End Date Status Dos age Date [facility] 2001 85360090724 40 MG Orally Dec 13, Active 1 capsu le Once a day 2019 in the morning Results No Known Results Summary Purpose eClinicalWorks Submission
--- OUTSIDE RECORDS SUMMARY | 2020-02-12 00:17 | XMS REPORT ---
:[address] [facility] Address [address] [place] [place] [address] Care Team Providers Name Role Phone Savage Unavailable [phone] PROBLEMS Type Condition ICD9-CM YVU43-MI Onset Condition SNOMED Code Notes Code Code Dates Status Problem Benign essential I10 Active 46530837 HTN Problem Anxiety F41.9 Active 40262893 Problem Dizziness R42 Active 387737701 Problem Allergic rhinitis J30.9 Active 09134667 Problem Palpitations R00.2 Active 65783575 Problem Gastritis K29.70 Active 5971097 Problem Hyperlipidemia E78.5 Active 62935685 Problem History of colonic Z86.010 Active 752406162 polyps Problem Stressful life Z63.79 Active events affecting family and household Problem GERD K21.9 Active 815368535 (gastroesophageal reflux disease) Problem Rectal bleeding K62.5 Active 66264014 Problem Incontinence R32 Active 30305297 Problem Hiatal hernia K44.9 Active 79786539 Problem Depression with F41.8 Active 930536190 anxiety Problem Stress N39.3 Active 80449604 incontinence Problem Urgency-frequency N32.81 Active 14027455 syndrome Problem Seasonal allergic J30.2 Active 381207347 rhinitis, unspecified trigger Problem Right anterior M25.561 Active 026528298 knee pain Problem 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 951151103 epilepsy without status epilepticus, unspecified epilepsy type Problem Nonintractable G40.909 Active 33132388 epilepsy without status epilepticus, unspecified epilepsy type Problem Elevated blood R03.0 Active 790855676 pressure reading without diagnosis of hypertension Problem Laryngitis J04.0 Active 68093127 Problem Attention deficit F90.2 Active 70127240 hyperactivity disorder (ADHD), combined type Problem Cough R05 Active 17312613 Problem 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 Active 21700772 Problem Tinnitus H93.19 Active 79557266 Problem 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 Problem Adult general Z00.00 Active 561840431 medical exam Problem Seizure disorder G40.909 Active 656303255 Problem Viral illness B34.9 Active 36080668 ALLERGIES Allergen (clinical drug Drug/Non Drug Allergy Reaction Allergy Type Onset Date Status ingredient) documented on EMR cephalexin Cephalexin([facility] Unknown Drug Allergy Active Code:[address]-16) ondansetron Zofran([facility] Unknown Drug Allergy Active Code:[address]-89) ENCOUNTERS from 1985 to 2020-01-19 Encounter Location Date Provider Diagnosis [facility] [address] [facility] Dec, [place] rry vision, right eye [facility] [address], [address] ; [place] [address] of right eye H 10.021 and Acute [...] FOR VISIT possible pink eye, cloudy vision [phone] MEDICAL (GENERAL) HISTORY Type Description Date Medical [...] Information ASSESSMENTS Encounter Date Diagnosis Notes Dec, [place] eye disease of right eye (ICD-10 - [...] make sure no glaucoma or eye disesase. [place] eye disease of right eye could possilby [...] [phone] Snow Argueta self 2019 and Jere [id number] [address] [place] [phone]
[2020-02-12] MEDS ORDERED: NA CHLORIDE 0.9% 1,000 ML ONE (01:11)
[2020-02-12] MEDS ORDERED: NA CHLORIDE 0.9% 50 ML IV ONE (01:13)
[2020-02-12] MEDS ORDERED: FOLIC ACID 5 MG/ML VIAL ONE (01:13)
[2020-02-12 01:19] LABS: Absolute Lymphocytes (CBC) 3.3 K/uL (0.7-4.9); Basophils % 0.5 % (0-1.3); Hematocrit 40.9 % (36.0-45.0); Lymphocytes % 29.4 % (15.3-44.8); MPV 10.2 fL (7.6-11.3); RBC Red Blood Cell Count 4.64 M/uL (3.86-4.86)
[2020-02-12 01:22] LABS: Protime INR 0.89
[2020-02-12 01:39] LABS: Urine Blood NEGATIVE (NEG); Urine Glucose NEGATIVE (NEG); Urine Protein NEGATIVE (NEG); Urine Specific Gravity >1.030 (1.005-1.030); Urine pH 5.5 (5.0-7.0)
[2020-02-12] MEDS ORDERED: METOCLOPRAMIDE 10 MG/2mL INJ ONE (01:50)
[2020-02-12 01:53] LABS: ALT/SGPT 32 U/L (12-78); AST/SGOT 7 U/L (15-37); Albumin 3.6 g/dL (3.4-5.0); Alkaline Phosphatase 63 U/L (45-117); BUN Blood Urea Nitrogen 16 mg/dL (7-18); Bicarbonate 27 mmol/L (21-32); Bilirubin Direct < 0.1 mg/dL (0-0.2); Bilirubin Total 0.2 mg/dL (0.2-1.0); C-Reactive Protein 6.69 mg/L (<3.00); Magnesium 2.2 mg/dL (1.8-2.4); NT PRO-BNP 7 pg/mL (<125); Potassium 3.8 mmol/L (3.5-5.1); Protein, Total 7.1 g/dL (6.4-8.2); Sodium Level 137 mmol/L (136-145); Troponin (Emerg Dept Use Only) < 0.02 ng/mL (0.0-0.045)
[2020-02-12 02:07] LABS: Glucose Level 110 mg/dL (74-106)
--- NOTE | 2020-02-12 02:14 | ER ---
Nurse's Notes [facility] Name: Snow Argueta Age: 34 yrs Sex: Female : 1985 Arrival Date: 02/12/2020 Time: 00:07 Bed 5 Private MD: Diagnosis: Weakness;Paresthesia of skin;Cerebral infarction-right side weakness Presentation: 02/11 00:16 Chief complaint: Patient states: i was dc from [facility] last 02/03/2020 and they said I mg2 have autoimmune disease. we are still waiting for the result of lumbar puncture. 3 days ago I was here for Shortness of breath/pleurisy and blood clot in my right arm. today, I'm here because of numbness in my right knee down to my foot. it feels cool. yesterday lunch time i was feeling this sharp pain in my leg. Coronavirus screen: Client denies travel out of the [place] in the last 14 days. At this time, the client does not indicate any symptoms associated with coronavirus-19. Ebola Screen: No symptoms or risks identified at this time. Initial Sepsis Screen: Does the patient meet any 2 criteria? No. Patient's initial sepsis screen is negative. Does the patient have a suspected source of infection? No. Patient's initial sepsis screen is negative. Risk Assessment: Do you want to hurt yourself or someone else? Patient reports no desire to harm self or others. Onset of symptoms was February 11, 2020 at 22:30. 00:16 Method Of Arrival: Wheelchair mg2 00:16 Acuity: LEONEL 3 mg2 Triage Assessment: 00:22 General: Appears in no apparent distress. comfortable, Behavior is calm, cooperative. mg2 Pain: Denies pain. EENT: No signs and/or symptoms were reported regarding the EENT system. Neuro: Level of Consciousness is awake, alert, obeys commands, Oriented to person, place, time, situation. Cardiovascular: Capillary refill < 3 seconds Patient's skin is warm and dry. Respiratory: Airway is patent Respiratory effort is even, unlabored, Respiratory pattern is regular, symmetrical. GI: No signs and/or symptoms were reported involving the gastrointestinal system. : No signs and/or symptoms were reported regarding the genitourinary system. Musculoskeletal: Circulation, motion, and sensation intact. Capillary refill < 3 seconds, Reports numbness in right leg. 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 - Social history:: Smoking status: Patient denies any tobacco usage or history of. Patient uses alcohol, occasionally. Patient/guardian denies using street drugs, IV drugs. - Family history:: not pertinent. Screenin:23 Abuse screen: Denies threats or abuse. Denies injuries from another. Nutritional mg2 screening: No deficits noted. Tuberculosis screening: No symptoms or risk factors identified. Fall Risk Ambulatory Aid- None/Bed Rest/Nurse Assist (0 pts). 02:50 Patient has been NPO before screening. The patient is alert, able to follow commands. mg2 The patient does not exhibit slurred or garbled speech The patient is not exhibiting difficulty speaking. The patient does not exhibit difficulty understanding words. The patient is able to swallow own secretions with no drooling or need for suction. Patient tolerated one teaspoon of water. No drooling, immediate coughing, gurgling, or clearing of the throat was noted. The patient tolerated 90mL of water. No drooling, immediate coughing, gurgling, or clearing of the throat was noted. The patient passed the bedside swallow screening. Oral medications may be given as ordered. Contact Physician for further diet orders. Provider notified of bedside swallow screening results: Rustam Aguirre MD. Assessment: 00:23 General: see triage note. mg2 01:44 Reassessment: sent to CT via stretcher. mg2 02:52 Reassessment: patient informed about the plan for transfer. mg2 03:54 Reassessment: provider informed the patient about the transfer. mg2 04:26 Reassessment: Patient appears in no apparent distress at this time. Patient and/or mg2 family updated on plan of care and expected duration. Pain level reassessed. Patient is alert, oriented x 3, equal unlabored respirations, skin warm/dry/pink. 05:26 Reassessment: report given to EBONIE Sanchez of [address] mg2 06:24 Reassessment: report given to EMS. patient in good condition. IV intact. mg2 Vital Signs: 00:16 BP 119 / 77; Pulse 88; Resp 18; Temp 98; Pulse Ox 98% on R/A; Weight 99.79 kg; Height 5 mg2 ft. 6 in. (167.64 cm); 02:53 BP 126 / 66; Pulse 88; Resp 18; Pulse Ox 98% on R/A; mg2 03:53 BP 115 / 68; Pulse 83; Resp 18; Temp 98; Pulse Ox 96% on R/A; mg2 04:27 BP 117 / 72; Pulse 78; Resp 18; Temp 98; Pulse Ox 100% on R/A; mg2 05:30 BP 125 / 78; Pulse 80; Resp 18; Temp 98; Pulse Ox 100% on R/A; mg2 06:20 BP 118 / 70; Pulse 79; Resp 18; Temp 98.1; Pulse Ox 100% on R/A; mg2 00:16 Body Mass Index 35.51 (99.79 kg, 167.64 cm) mg2 NIH Stroke Scale Scores: 00:53 NIHSS Score: 6 lisandra 02:50 NIHSS Score: 7 mg2 ED Course: 00:07 Patient arrived in ED. bg2 00:09 Solomon Smith, RN is Primary Nurse. mg2 00:21 Triage completed. mg2 00:22 Arm band placed on. mg2 00:23 Patient has correct armband on for positive identification. mg2 00:23 No provider procedures requiring assistance completed. mg2 00:28 Rustam Aguirre MD is Attending Physician. lisandra 01:00 Inserted saline lock: 20 gauge in left antecubital area, using aseptic technique. Blood mg2 collected. 01:08 XRAY Chest (1 view) In Process Unspecified. EDMS 02:04 CT Head Brain wo Cont In Process Unspecified. EDMS 02:04 CT Chest For PE Angio In Process Unspecified. EDMS 02:31 Initiated transfer at [facility] with Alcira Birch. Informed her on pt's recent dc. Alcira burris3 said she would work on the case and call back. 02:42 Alcira called back with Dr. Tsai to speak with Dr. Aguirre. tt3 03:58 Followed up with Alcira at [facility]. She stated they are still working on trying to get tt3 in touch with the pts previous physicians from when admitted at [facility]. Stated that is all we are waiting on at this point in the transfer process. 04:47 Alcira called back to speak with Dr. Aguirre. tt3 04:55 Alcira Birch gave admin approval at [phone]. The accepting physician is Rani Blair Face tt3 sheet faxed to . Alcira stated once she received face sheet she would call back with the number for nurse report and to give bed assignment. The pt is going to [facility]. 05:07 Alcira called back with the bed assignment. The pt is going to [facility]. tt3 Nurse to call report to [phone]. 05:18 [facility] will transfer the pt. tt3 06:24 Patient transferred, IV remains in place. mg2 Administered Medications: 01:12 Drug: foLIC Acid 1 mg Route: IVPB; Site: left antecubital; mg2 03:01 Follow up: Response: No adverse reaction; IV Status: Completed infusion mg2 01:12 Drug: NS 0.9% 1000 ml Route: IV; Rate: 1 bolus; Site: left antecubital; mg2 02:52 Follow up: Response: No adverse reaction; IV Status: Completed infusion; IV Intake: mg2 1000ml 01:38 Drug: Reglan 10 mg Route: IVP; Site: left antecubital; mg2 02:49 Follow up: Response: No adverse reaction mg2 02:52 Drug: Aspirin 162 mg Route: PO; mg2 03:01 Follow up: Response: No adverse reaction mg2 Intake: 02:52 IV: 1000ml; Total: 1000ml. mg2 Outcome: 02:13 ER care complete, transfer ordered by . lisandra 06:24 Transferred by ground EMS to [facility], Transfer form completed. mg2 06:24 Condition: stable 06:24 Instructed on the need for transfer, Demonstrated understanding of instructions. 06:25 Patient left the ED. mg2 NIH Stroke Scale - NIH Stroke Score Date: 02/12/2020 Time: 00:53 Total Score = 6 1a. Level of Consciousness (LOC) - 0(Alert) 1b. Level of Consciousness (LOC) (Year \T\ Age) - 0(Both) 1c. LOC Commands (Open \T\ Closes Eyes/Community Health Advocate) - 0(Both) 2. Best Gaze (Lateral Gaze Paresis) - 0(Normal) 3. Visual Field Loss - 0(No visual loss) 4. Facial Palsy - 0(Normal) 5a. Left Arm: Motor (10-second hold) - 0(No drift) 5b. Right Arm: Motor (10-second hold) - 1(Drift) 6a. Left Leg: Motor (5-second hold - always test supine) - 0(No drift) 6b. Right Leg: Motor (5-second hold - always test supine) - 1(Drift) 7. Limb Ataxia (finger/nose \T\ heel/bajwa - test with eyes open) - 2(Present in two limbs) 8. Sensory Loss (pinprick arms/legs/face) - 1(Mild to moderate loss) 9. Best Language: Aphasia (description/naming/reading) - 0(No aphasia) 10. Dysarthria (speech clarity - read or repeat words) - 0(Normal) 11. Extinction and Inattention (visual/tactile/auditory/spatial/personal) - 1(Present) Initials: [facility] NIH Stroke Scale - NIH Stroke Score Date: 02/12/2020 Time: 02:50 Total Score = 7 1a. Level of Consciousness (LOC) - 0(Alert) 1b. Level of Consciousness (LOC) (Year \T\ Age) - 0(Both) 1c. LOC Commands (Open \T\ Closes Eyes/Community Health Advocate) - 0(Both) 2. Best Gaze (Lateral Gaze Paresis) - 0(Normal) 3. Visual Field Loss - 2(Complete hemianopia) 4. Facial Palsy - 0(Normal) 5a. Left Arm: Motor (10-second hold) - 0(No drift) 5b. Right Arm: Motor (10-second hold) - 0(No drift) 6a. Left Leg: Motor (5-second hold - always test supine) - 0(No drift) 6b. Right Leg: Motor (5-second hold - always test supine) - 3(No effort against gravity) 7. Limb Ataxia (finger/nose \T\ heel/bajwa - test with eyes open) - 1(Present in one limb) 8. Sensory Loss (pinprick arms/legs/face) - 1(Mild to moderate loss) 9. Best Language: Aphasia (description/naming/reading) - 0(No aphasia) 10. Dysarthria (speech clarity - read or repeat words) - 0(Normal) 11. Extinction and Inattention (visual/tactile/auditory/spatial/personal) - 0(No abnormality) Initials: mg2 Signatures: Dispatcher [employer] EDRustam Chew MD MD cha Glass, Brittany bg2 Solomon Smith, EBONIE RN mg2 Michael Jo tt3
--- NOTE | 2020-02-12 02:14 | EDPHYS ---
Physician Documentation [facility] Name: Snow Argueta Age: 34 yrs Sex: Female : 1985 Arrival Date: 02/12/2020 Time: 00:07 Bed 5 Private MD: PRANAY Physician Rustam Aguirre HPI: 02/11 00:53 This 34 yrs old Female presents to ER via Wheelchair with complaints of right lisandra leg weak, numb, chest pain and sob. 00:53 The patient has shortness of breath at rest, with light activity. Onset: The lisandra symptoms/episode began/occurred 2 day(s) ago. Duration: The symptoms are continuous, and are steadily getting worse. The patient's shortness of breath is aggravated by nothing, is alleviated by nothing. The patient or guardian reports chest pain that is located primarily in the anterior chest wall, right. The patient's problem is reported as paresthesias, in right upper extremity, in right lower extremity. Onset: The symptoms/episode began/occurred yesterday. The symptoms are alleviated by nothing. The symptoms are aggravated by nothing. 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 - Social history:: Smoking status: Patient denies any tobacco usage or history of. Patient uses alcohol, occasionally. Patient/guardian denies using street drugs, IV drugs. - Family history:: not pertinent. ROS: 00:53 Constitutional: Negative for fever, chills, and weight loss, ENT: Negative for injury, lisandra pain, and discharge, Neck: Negative for injury, pain, and swelling, Abdomen/GI: Negative for abdominal pain, nausea, vomiting, diarrhea, and constipation, Back: Negative for injury and pain, : Negative for injury, bleeding, discharge, and swelling, MS/Extremity: Negative for injury and deformity, Skin: Negative for injury, rash, and discoloration, Psych: Negative for depression, anxiety, suicide ideation, homicidal ideation, and hallucinations, Allergy/Immunology: Negative for hives, rash, and allergies, Endocrine: Negative for neck swelling, polydipsia, polyuria, polyphagia, and marked weight changes. 00:53 Eyes: Positive for vision loss, of the iris of right eye. 00:53 Respiratory: Positive for shortness of breath, at rest. 00:53 MS/extremity: Positive for decreased range of motion, paresthesias, of the right arm and right leg. Exam: 00:53 Constitutional: This is a well developed, well nourished patient who is awake, alert, lisandra and in no acute distress. Head/Face: Normocephalic, atraumatic. Eyes: Pupils equal round and reactive to light, extra-ocular motions intact. Lids and lashes normal. Conjunctiva and sclera are non-icteric and not injected. Cornea within normal limits. Periorbital areas with no swelling, redness, or edema. ENT: Nares patent. No nasal discharge, no septal abnormalities noted. Tympanic membranes are normal and external auditory canals are clear. Oropharynx with no redness, swelling, or masses, exudates, or evidence of obstruction, uvula midline. Mucous membranes moist. Neck: Trachea midline, no thyromegaly or masses palpated, and no cervical lymphadenopathy. Supple, full range of motion without nuchal rigidity, or vertebral point tenderness. No Meningismus. Chest/axilla: Normal chest wall appearance and motion. Nontender with no deformity. No lesions are appreciated. Cardiovascular: Regular rate and rhythm with a normal S1 and S2. No gallops, murmurs, or rubs. Normal PMI, no JVD. No pulse deficits. Respiratory: Lungs have equal breath sounds bilaterally, clear to auscultation and percussion. No rales, rhonchi or wheezes noted. No increased work of breathing, no retractions or nasal flaring. Abdomen/GI: Soft, non-tender, with normal bowel sounds. No distension or tympany. No guarding or rebound. No evidence of tenderness throughout. Back: No spinal tenderness. No costovertebral tenderness. Full range of motion. Female : Normal external genitalia. Skin: Warm, dry with normal turgor. Normal color with no rashes, no lesions, and no evidence of cellulitis. MS/ Extremity: Pulses equal, no cyanosis. Neurovascular intact. Full, normal range of motion. Psych: Awake, alert, with orientation to person, place and time. Behavior, mood, and affect are within normal limits. 00:53 Neuro: Orientation: is normal, appropriate for stated age, no acute changes, Mentation: is normal, appropriate for stated age, no acute changes, Memory: is normal, appropriate for stated age, no acute changes, Cranial nerves: grossly normal, is grossly normal based on the patient's age, no acute changes, Cerebellar function: is grossly normal, is grossly normal based on the patient's age, no acute changes, Motor: moves all fours, strength is 4/5 in the right arm and right leg, Sensation: numbness, that is mild, of the right arm and right leg, Gait: not tested. Deep tendon reflexes are 1 (trace) + in the right patellar and left patellar, seizure activity, is not displayed by the patient, Abnormal movements: there are no abnormal movements. 01:04 Radiologist reports: negative [facility] 01:05 ECG was reviewed by the Attending Physician. [facility] Vital Signs: 00:16 BP 119 / 77; Pulse 88; Resp 18; Temp 98; Pulse Ox 98% on R/A; Weight 99.79 kg; Height 5 mg2 ft. 6 in. (167.64 cm); 02:53 BP 126 / 66; Pulse 88; Resp 18; Pulse Ox 98% on R/A; mg2 03:53 BP 115 / 68; Pulse 83; Resp 18; Temp 98; Pulse Ox 96% on R/A; mg2 04:27 BP 117 / 72; Pulse 78; Resp 18; Temp 98; Pulse Ox 100% on R/A; mg2 05:30 BP 125 / 78; Pulse 80; Resp 18; Temp 98; Pulse Ox 100% on R/A; mg2 06:20 BP 118 / 70; Pulse 79; Resp 18; Temp 98.1; Pulse Ox 100% on R/A; mg2 00:16 Body Mass Index 35.51 (99.79 kg, 167.64 cm) mg2 NIH Stroke Scale Scores: 00:53 NIHSS Score: 6 lisandra 02:50 NIHSS Score: 7 mg2 MDM: 00:28 Patient medically screened. lisandra 01:02 Differential diagnosis: Anxiety Reaction abnormal EKG, anxiety, CVA, TIA, paralysis, lisandra unstable angina, Psychogenic pulmonary edema, Pulmonary Embolism. Antibiotic administration: Not indicated. HEART Score: History: Slightly Suspicious (0), ECG: Normal (0), Age: < or = 45 years (0), Risk Factors: No Risk Factors Known (0), Troponin: < or = 1 x Normal Limit (0), Total Score = 0. The patient's Wells Deep Vein Thrombosis Score was calculated as follows: Total Score: 0. This patient was found to be at low risk for a deep vein thrombosis by using the Well's assessment criteria Total Score: 0-2 Pts- Low Risk. The patient's pulmonary embolism risk score was calculated as follows: Total Score: 0-2 points. This patient was found to be at low risk for a pulmonary embolism by using the Well's assessment criteria Total Score: 0-2 points. This patient was found to be at low risk for a pulmonary embolism by using the Well's assessment criteria. ANUPAMA Risk Score: TOTAL SCORE = 0. Immunization status:. Data reviewed: vital signs, nurses notes, lab test result(s), EKG, radiologic studies, CT scan, plain films. Data interpreted: vehicle monitor technician: rate is 88 beats/min, rhythm is regular, Pulse oximetry: on room air is 98 %. Test interpretation: by ED physician or midlevel provider: ECG, plain radiologic studies. 04:55 ED course: not a tpa candidate, ongoing problem over 1 week, autoimmune driven, lisandra numbness is bandlike, not following any neurologic pathway. 02/11 00:52 Order name: Basic Metabolic Panel; Complete Time: 02: [facility] 02/11 00:52 Order name: CBC with Diff; Complete Time: 02: [facility] 02/11 00:52 Order name: LFT's; Complete Time: 02: lisandra 02/11 00:52 Order name: Magnesium; Complete Time: 02: [facility] 02/11 00:52 Order name: NT PRO-BNP; Complete Time: 02: [facility] 02/11 00:52 Order name: PT-INR; Complete Time: 02: [facility] 02/11 00:52 Order name: Troponin (emerg Dept Use Only); Complete Time: 02: [facility] 02/11 00:52 Order name: XRAY Chest (1 view) [facility] 02/11 00:52 Order name: Sed Rate; Complete Time: 02:02 [facility] 02/11 00:52 Order name: CRP; Complete Time: 02:11 [facility] 02/11 00:52 Order name: CT Head Brain wo Cont lisandra 02/11 01:29 Order name: Urine --Ancillary (enter results); Complete Time: 02:02 tt3 02/11 01:29 Order name: Urine Dipstick--Ancillary (enter results); Complete Time: 02:02 tt3 02/11 01:39 Order name: CREATININE WHOLE BLOOD; Complete Time: 02:02 EDMS 02/11 00:52 Order name: EKG; Complete Time: 00:54 [facility] 02/11 00:52 Order name: Cardiac monitoring; Complete Time: 01: [facility] 02/11 00:52 Order name: EKG - Nurse/Tech; Complete Time: 01: [facility] 02/11 00:52 Order name: IV Saline Lock; Complete Time: 01: [facility] 02/11 00:52 Order name: Labs collected and sent; Complete Time: 01: [facility] 02/11 00:52 Order name: O2 Per Protocol; Complete Time: 01: [facility] 02/11 00:52 Order name: O2 Sat Monitoring; Complete Time: 01: [facility] 02/11 00:52 Order name: Urine Test (obtain specimen); Complete Time: 01: [facility] 02/11 00:52 Order name: Urine Dipstick-Ancillary (obtain specimen); Complete Time: 01: [facility] 02/11 00:52 Order name: CT Chest For PE Angio [facility] EC:05 Rate is 88 beats/min. Rhythm is regular. QRS [place] is Normal. CO interval is normal. QRS lisandra interval is normal. QT interval is normal. No Q waves. T waves are Normal. No ST changes noted. Clinical impression: Normal ECG and No evidence of ischemia. Interpreted by me. Reviewed by me. Administered Medications: 01:12 Drug: foLIC Acid 1 mg Route: IVPB; Site: left antecubital; mg2 03:01 Follow up: Response: No adverse reaction; IV Status: Completed infusion mg2 01:12 Drug: NS 0.9% 1000 ml Route: IV; Rate: 1 bolus; Site: left antecubital; mg2 02:52 Follow up: Response: No adverse reaction; IV Status: Completed infusion; IV Intake: mg2 1000ml 01:38 Drug: Reglan 10 mg Route: IVP; Site: left antecubital; mg2 02:49 Follow up: Response: No adverse reaction mg2 02:52 Drug: Aspirin 162 mg Route: PO; mg2 03:01 Follow up: Response: No adverse reaction mg2 Disposition: 02/12/20 02:13 Transfer ordered to [facility]. Diagnosis are Weakness, Paresthesia of skin, Cerebral infarction - right side weakness. - Reason for transfer: Higher level of care. - Accepting physician is to gnosticism. - Condition is Stable. - Problem is new. - Symptoms have improved. NIH Stroke Scale - NIH Stroke Score Date: 02/12/2020 Time: 00:53 Total Score = 6 1a. Level of Consciousness (LOC) - 0(Alert) 1b. Level of Consciousness (LOC) (Year \T\ Age) - 0(Both) 1c. LOC Commands (Open \T\ Closes Eyes/Ink Printer) - 0(Both) 2. Best Gaze (Lateral Gaze Paresis) - 0(Normal) 3. Visual Field Loss - 0(No visual loss) 4. Facial Palsy - 0(Normal) 5a. Left Arm: Motor (10-second hold) - 0(No drift) 5b. Right Arm: Motor (10-second hold) - 1(Drift) 6a. Left Leg: Motor (5-second hold - always test supine) - 0(No drift) 6b. Right Leg: Motor (5-second hold - always test supine) - 1(Drift) 7. Limb Ataxia (finger/nose \T\ heel/bajwa - test with eyes open) - 2(Present in two limbs) 8. Sensory Loss (pinprick arms/legs/face) - 1(Mild to moderate loss) 9. Best Language: Aphasia (description/naming/reading) - 0(No aphasia) 10. Dysarthria (speech clarity - read or repeat words) - 0(Normal) 11. Extinction and Inattention (visual/tactile/auditory/spatial/personal) - 1(Present) Initials: lisandra NIH Stroke Scale - NIH Stroke Score Date: 02/12/2020 Time: 02:50 Total Score = 7 1a. Level of Consciousness (LOC) - 0(Alert) 1b. Level of Consciousness (LOC) (Year \T\ Age) - 0(Both) 1c. LOC Commands (Open \T\ Closes Eyes/Ink Printer) - 0(Both) 2. Best Gaze (Lateral Gaze Paresis) - 0(Normal) 3. Visual Field Loss - 2(Complete hemianopia) 4. Facial Palsy - 0(Normal) 5a. Left Arm: Motor (10-second hold) - 0(No drift) 5b. Right Arm: Motor (10-second hold) - 0(No drift) 6a. Left Leg: Motor (5-second hold - always test supine) - 0(No drift) 6b. Right Leg: Motor (5-second hold - always test supine) - 3(No effort against gravity) 7. Limb Ataxia (finger/nose \T\ heel/bajwa - test with eyes open) - 1(Present in one limb) 8. Sensory Loss (pinprick arms/legs/face) - 1(Mild to moderate loss) 9. Best Language: Aphasia (description/naming/reading) - 0(No aphasia) 10. Dysarthria (speech clarity - read or repeat words) - 0(Normal) 11. Extinction and Inattention (visual/tactile/auditory/spatial/personal) - 0(No abnormality) Initials: mg2 Signatures: Dispatcher [employer] EDMS Rustam Aguirre MD MD cha Gardose, Michele, RN RN mg2 Corrections: (The following items were deleted from the chart) 04:57 04:51 ED course: noGrazyna fry cha 06:25 02:13 02/12/2020 02:13 Transfer ordered to [facility]. Diagnosis is mg2 Weakness; Paresthesia of skin; Cerebral infarction - right side weakness. Reason for transfer: Higher level of care. Accepting physician is to gnosticism. Condition is Stable. Problem is new. Symptoms have improved. lisandra
[2020-02-12] MEDS ORDERED: ASPIRIN EC 81 MG TAB PO ONE (03:03)
[2020-02-12 06:39] VITALS: O2SAT 100
[2020-02-12 06:42] VITALS: BP 118/70; TEMP 98.1
--- NOTE | 2020-02-12 09:31 | EKG ---
Test Date: 2020-02-12 Test Time: 01:02:39 [employer]: LILLIE MEASUREMENT RESULTS: Intervals: Rate: 88 DC: 138 QRSD: 80 QT: 368 QTc: 445 [place]: P: 47 DC: 138 QRS: 35 T: 39 INTERPRETIVE STATEMENTS: Normal sinus rhythm Normal ECG Compared to ECG 02/09/2020 12:05:11 No significant changes Electronically Signed On 02-12-20 09:30:49 CDT by Bryant Dickerson
--- NOTE | 2020-02-12 11:47 | RAD REPORT ---
EXAM DESCRIPTION: RAD - Chest Single View - 02/12/2020 1:09 am CLINICAL HISTORY: COUGH Chest pain. COMPARISON: Chest Single View dated 02/09/2020; Chest Single View dated 09/07/2019; Chest Pa And Lat (2 Views) dated 06/13/2019; Chest Pa And Lat (2 Views) dated 02/04/2019 FINDINGS: Portable technique limits examination quality. The lungs are grossly clear. The heart is normal in size. No displaced fractures. IMPRESSION: No acute intrathoracic process suspected.
--- NOTE | 2020-02-14 12:00 | RAD REPORT ---
EXAM DESCRIPTION: CT Head Without Intravenous Contrast CLINICAL HISTORY: The patient is 34 years old and is Female; Dizziness;Numbness;TIA TECHNIQUE: Axial computed tomography images of the head/brain without intravenous contrast. Sagitt al and coronal reformatted images were created and reviewed. This CT exam was performed using one o r more of the following dose reduction techniques: automated exposure control, adjustment of the mA and/or kV according to patient size, and/or use of iterative reconstruction technique. COMPARISON: CT of the head September 07, 2019 FINDINGS: BRAIN: Unremarkable. The chun-white matter differentiation is preserved . No hemorrhag e. No significant white matter disease. No edema. No extra-axial fluid collections. VENTRICLES: Unremarkable. No ventriculomegaly. BONES/JOINTS: No acute fracture. SOFT TISSUES: Unremarkable. SINUSES: Unremarkable as visualized. No acute sinusitis. MASTOID AIR CELLS: Unremarkable as visualized. No mastoid effusion. ORBITS: Unremarkable as visualized. IMPRESSION: No acute intracranial findings. Electronically signed by: Pastora Guzman MD 02/12/2020 2:11 AM CDT Due to temporary technical issues with the PACS/Fluency reporting system, reports are being signed by the in house radiologist without review as a courtesy to ensure prompt reporting. The interpreting r adiologist is fully responsible for the content of the report.
--- NOTE | 2020-02-14 12:03 | RAD REPORT ---
EXAM DESCRIPTION: CT Angiography Chest With Intravenous Contrast CLINICAL HISTORY: The patient is 34 years old and is Female; Dyspnea;Chest pain TECHNIQUE: Axial computed tomographic angiography images of the chest with intravenous contrast. S agittal and coronal reformatted images were created and reviewed. This CT exam was performed using one or more of the following dose reduction techniques: automated exposure control, adjustment of t he mA and/or kV according to patient size, and/or use of iterative reconstruction technique. MIP reconstructed images were created and reviewed. COMPARISON: No relevant prior studies available. FINDINGS: PULMONARY ARTERIES: There are no obvious filling defects identified within the pulmonary arteries to suggest pulmonary embolism. AORTA: No acute findings. No thoracic aortic aneurysm. LUNGS: Unremarkable. No mass. No consolidation. PLEURAL SPACE: Unremarkable. No significant effusion. No pneumothorax. HEART: Unremarkable. No cardiomegaly. No significant pericardial effusion. No evidence of RV dysfunction. BONES/JOINTS: No acute fracture. No dislocation. SOFT TISSUES: Unremarkable. LYMPH NODES: Unremarkable. No enlarged lymph nodes. LIVER: The liver is mildly fatty. IMPRESSION: No evidence of pulmonary embolism. Electronically signed by: Pastora Guzman MD 02/12/2020 2:15 AM CDT Due to temporary technical issues with the PACS/Fluency reporting system, reports are being signed by the in house radiologist without review as a courtesy to ensure prompt reporting. The interpreting r adiologist is fully responsible for the content of the report.
== END 2020-02-12 06:25 | disposition short-term general hospital (02) ==
LOC: ER 00:05
DX: I63.9 Cerebral infarction, unspecified (principal); G81.91 Hemiplegia, unspecified affecting right dominant side; R29.707 NIHSS score 7; R53.1 Weakness; Z85.6 Personal history of leukemia; Z88.3 Allergy status to other anti-infective agents; Z88.8 Allergy status to other drugs, medicaments and biological substances; Z91.040 Latex allergy status; Z91.048 Other nonmedicinal substance allergy status
CPT/HCPCS: 96365; 93005; 85025; 80048; 36415; 83735; 81025; 85610; 82565; 80076; 85652; 81003; 84484; 83880; 86140; 70450; 71275; 71045; 96375; 99285; 96366; Q9967; J2765; J7030

== ENCOUNTER 2020-03-20 06:45 | Emergency (ER) | payer BC ==
--- OUTSIDE RECORDS SUMMARY | 2020-03-20 06:48 | XMS REPORT | Clinical Summary ---
:1985 Author Organization [facility] Address [address] [place] [address] Care Team Providers Name Role Phone Soco Savage Primary Care Provider Allergies Active Allergy Reactions Severity Noted Date [...] Dispensed Refills Start End Status Date Date metoclopramide HCl Take 1 tablet by 0 Active (REGLAN ORAL) mouth as needed. 0 acetaminophen Take 500 mg by 0 A ctive (Tylenol Extra mouth every 6 Strength) 500 MG (six) hours as tablet needed for mild pain. lisdexamfetamine Take 40 mg by 0 Discontinued (VYVANSE) 40 MG mouth daily. 020 ( Med List capsule (per patient, Bobu p) stopped taking it last week - unknown reason); (per [place] Prescription Drug Monitoring Program, last filled 12/18/19, quantity: 30, day supply: 30) topiramate (Trokendi Take 1 capsule 0 10/2 0/2 Discontinued XR) 100 mg by mouth daily. 020 (St op Taking at capsule,extended (Patient stopped Discharge) release 24hr taking this medication in the summer because she ran out of it) OXCARBAZEPINE ORAL (Patient stopped 0 10/2 0/2 Discontinued taking this 020 (Stop Ta neena at medication in Discha rge) the summer because she ran out of it) atropine 1 % Administer 1 0 Disc ontinued ophthalmic solution drop to the 020 (Stop Taking at right eye 2 Discharg e) (two) times a day. (start date: ~3 weeks ago - per patient) metoclopramide Take 1 tablet (5 15 tablet 0 Discontinued (Reglan) 5 MG tablet mg total) by 0 020 mouth 3 (three) times a day as needed (nausea, vomiting) for up to 5 days. metoclopramide Take 1 tablet (5 15 tablet 0 (Reglan) 5 MG tablet mg total) by 0 020 mouth 3 (three) times a day as needed (nausea, vomiting) for up to 5 days. omeprazole OTC Take 1 tablet 30 tablet 0 E xpired (PriLOSEC OTC) 20 MG (20 mg total) by 0 02 0 EC tablet mouth daily for 30 days. Active Problems Problem Noted Date Lower extremity weakness 02/16/2020 Debility 02/14/2020 Weakness 02/12/2020 Neurological dysfunction 02/12/2020 Optic neuritis 02/03/2020 Encounters Date Type Specialty Care Team Description 03/08/2020 Office Visit Ophthalmology Isidro Ruby MD Function al vision problem (Primary Dx); Unspecified vis ual field defects 03/08/2020 Travel 02/15/2020 Telephone Ophthalmology Isidro Ruby MD 02/13/2020 Orders Only Radiology Diogo Blandon 02/12/2020 - Hospital Encounter Neurosurgery America Benedict MD Weakness (Primary Dx); 02/16/2020 Yesi Maldonado Debility MD Toni 02/11/2020 Telephone Ophthalmology Isidro Ruby MD 02/07/2020 Telephone Ophthalmology Gabby García MA 02/03/2020 - Hospital Encounter Neurology Kim Guevara Optic neuritis (Primary Dx); 02/08/2020 MD Janice Acute intractable headache, unspecified headache type; Aldo Pineda, Ricardotabl e headache, unspecified chronicity pattern, unspecified headache type; Leukocytosis, unspecified type; Maisha Maddox Blurry vision; MD Jamarcus Paresthesia; Weakness 02/03/2020 Telephone Ophthalmology Gabby García MA after 03/20/2019 Immunizations Name Administration Dates Next Due FLUCELVAX QUAD PF 02/06/2020 Surgical History Surgery Date Site/Laterality Comments TUBAL LIGATION Medical History Medical History Date Comments Cancer (HCC) 2013 Epilepsy (HCC) 2019 Optic neuritis Social History Tobacco Use Types Packs/Day Years Used Date Never Smoker Smokeless Tobacco: Never Used Alcohol Use Drinks/Week oz/Week Comments Yes occ drinker Sex Assigned at Date Recorded Not on file COVID-19 Exposure Response Date Recorded In the last month, have you been in contact with No / Unsure 03/08/2020 12:31 PM [employer] someone who was confirmed or suspected to have Coronavirus / COVID-19? Last Filed Vital Signs Vital Sign Reading Time Taken Comments Blood Pressure 128/72 02/16/2020 8:37 AM CDT Pulse 87 02/16/2020 8:37 AM CDT Temperature 36.8 C (98.2 F) 02/16/2020 8:37 AM CDT Respiratory Rate 18 02/16/2020 8:37 AM CDT Oxygen Saturation 95% 02/16/2020 8:37 AM CDT Inhaled Oxygen Concentration - - Weight 99.8 kg (220 lb) 03/08/2020 12:47 PM [employer] Height 167.6 cm (5' 6") 03/08/2020 12:47 PM [employer] Body Mass Index 35.51 03/08/2020 12:47 PM [employer] Plan of Treatment Health Maintenance Due Date Last Done Comments CERVICAL CANCER SCREENING 02/02/2023 02/03/2020 INFLUENZA VACCINE Completed 02/06/2020, Procedures Procedure Name Priority Date/Time Associated Comments Diagnosis DURABLE MEDICAL Routine 02/16/2020 10:31 Results for this EQUIPMENT AM CDT procedure are i n the results section. ESTIMATED GFR Routine 02/16/2020 5:10 Results fo r this AM CDT procedure are i n the results section. BASIC METABOLIC PANEL Routine 02/16/2020 5:10 Re sults for this AM CDT procedure are i n the results section. DURABLE MEDICAL Routine 02/15/2020 3:56 Results for this EQUIPMENT PM CDT procedure are i n the results section. EMG Routine 02/15/2020 12:46 Results for this PM CDT procedure are i n the results section. ESTIMATED GFR Routine 02/15/2020 5:00 Results fo r this AM CDT procedure are i n the results section. BASIC METABOLIC PANEL Routine 02/15/2020 5:00 Re sults for this AM CDT procedure are i n the results section. HC COMPLETE BLD COUNT Routine 02/15/2020 5:00 Re sults for this W/AUTO DIFF AM CDT procedure are i n the results section. VISUAL EVOKED POTENTIALS Routine 02/14/2020 11:52 Results for this (VEP) AM CDT procedure are i n the results section. ESTIMATED GFR Routine 02/14/2020 4:15 Results fo r this AM CDT procedure are i n the results section. BASIC METABOLIC PANEL Routine 02/14/2020 4:15 Re sults for this AM CDT procedure are i n the results section. HC COMPLETE BLD COUNT Routine 02/14/2020 4:15 Re sults for this W/AUTO DIFF AM CDT procedure are i n the results section. MRI LUMBAR SPINE W WO Routine 02/13/2020 10:28 Re sults for this CONTRAST AM CDT procedure are i n the results section. MRI BRAIN VENOGRAM Routine 02/13/2020 9:47 Resul ts for this AM CDT procedure are i n the results section. HC COMPLETE BLD COUNT Routine 02/13/2020 4:05 Re sults for this W/AUTO DIFF AM CDT procedure are i n the results section. ESTIMATED GFR Routine 02/13/2020 4:00 Results fo r this AM CDT procedure are i n the results section. BASIC METABOLIC PANEL Routine 02/13/2020 4:00 Re sults for this AM CDT procedure are i n the results section. HC COMPLETE BLD COUNT Routine 02/12/2020 10:18 Re sults for this W/AUTO DIFF AM CDT procedure are i n the results section. ESTIMATED GFR Routine 02/12/2020 8:00 Results fo r this AM CDT procedure are i n the results section. BASIC METABOLIC PANEL Routine 02/12/2020 8:00 Re sults for this AM CDT procedure are i n the results section. VENIPUNC NEED PHYS Routine 02/08/2020 10:39 Resul [...] the results section. AFB CULTURE Routine 02/04/2020 10:56 Results for this AM CDT procedure are i n the results section. FUNGUS CULTURE Routine 02/04/2020 10:56 Results f or this AM CDT procedure are i n [...] are i n the results section. CSF CULTURE Routine 02/04/2020 9:56 Results for [...] are i n the results section. after 03/20/2019 Results 3 in 1 Commode (02/16/2020 10:31 AM CDT)Only the most recent of2 resultswithin the time period is included. SUPPLIER NAME [employer] and [facility] Medical HEALTH SUPPLIER PHONE [phone] [facility] ORDER STATUS Delivery Successful [facility] DELIVERY NOTE [facility] REQUESTED DELIVEY 02/16/2020 [place] DATE HEALTH ITEM DESCRIPTION 3 in 1 [facility] CommodeComment: HEALTH Qty: 1 ACTUAL DELIVERY DATE 02/16/2020 [facility] ITEM DESCRIPTION 3 in 1 [facility] CommodeComment: HEALTH Qty: 1 Specimen Performing Organization Address City/[facility]/ZIP [facility] Phon e Number [facility] Estimated GFR (02/16/2020 5:10 AM CDT)Only the most recent of10 resultswithin the time period is included. Estimated GFR >=90 mL/min/1.73 [facility] Comment: m2 HOSPITAL Catergory Units Interpretation G1 [...] lity Initiative (NKF-KDOQI) published in 2014. Specimen Plasma Performing Organization Address City/State/ZIP Code Phon e Number [facility] DEPARTMENT OF PATHOLOGY AND [address], [place] [address] GENOMIC MEDICINE [address] [address] Basic metabolic panel (02/16/2020 5:10 AM CDT)Only the most recent of9 results within the time period is included. Pathologist Sig nature Sodium 138 135 - 148 mEq/L [facility] L Potassium 4.1 3.5 - 5.0 mEq/L [facility] L Chloride 103 98 - 112 mEq/L [facility] CO2 21 (L) 24 - 31 mEq/L [facility] Anion gap 14@ANIO 7 - 15 mEq/L [facility] BUN 14 6 - 20 mg/dL [facility] Creatinine 0.81 0.50 - 0.90 mg/dL [facility] AJ Glucose 110 (H) 65 - 99 mg/dL [facility] Calcium 8.6 8.3 - 10.2 mg/dL [facility] AL Specimen Plasma Performing Organization Address City/State/ZIP Code Phon e Number [facility] DEPARTMENT OF PATHOLOGY AND [address], [place] [address] GENOMIC MEDICINE [facility] [address] [place] [address] EMG General Request (02/15/2020 12:46 PM CDT) Narrative Performed At This result has an attachment that is no t available. Electromyogram and NCS Report [facility] Neurological [place] [address],[place], [place] T: F: Patient: Sapna Argueta Physician: Nicolasa Walters MD Age: 34 Test Date: 02/15/20 Sex: Female Height: 66 inches Weight: 220 lbs Ref. M.D.: Fior Batista MD : 86 History/Comments: The patient is a 34 YO female who was referred to the EMG lab for right arm and leg numbness and weakness. Temp- RLE: 28.2 LLE: 30.1 RUE: 35.4 Motor Nerve Study Right Median Nerve Rec Site: APB Lat (ms) Amp (mV) Area (mVms) Dist (mm ) C.V. (m/s) Stim Site Wrist 3.6 10.4 30.1 Elbow 7.5 9.7 29.1 213 54.4 Motor Nerve Study Right Ulnar Nerve Rec Site: ADM Lat (ms) Amp (mV) Area (mVms) Dist (mm ) C.V. (m/s) Stim Site Wrist 2.3 9.3 17.5 B.Elbow 4.7 8.1 19.4 140 60.0 A.Elbow 7.3 7.8 18.7 138 51.8 Motor Nerve Study Left Peroneal Nerve Rec Site: EDB Lat (ms) Amp (mV) Area (mVms) Dist (mm ) C.V. (m/s) Stim Site Ankle 3.8 5.3 14.1 Fib.Head 11.8 5.0 14.4 354 44.3 Pop.Fos. 13.7 4.9 14.1 80 41.7 Motor Nerve Study Right Peroneal Nerve Rec Site: EDB Lat (ms) Amp (mV) Area (mVms) Dist (mm ) C.V. (m/s) Stim Site Ankle 5.2 5.7 18.1 Fib.Head 13.8 5.2 17.3 355 41.4 Pop.Fos. 15.3 5.2 16.9 70 46.7 Motor Nerve Study Left Tibial Nerve Rec Site: AH Lat (ms) Amp (mV) Area (mVms) Dist (mm) C.V. (m/s) Stim Site Ankle 4.4 13.8 31.1 Pop.Fos. 13.5 11.5 30.8 370 40.7 Motor Nerve Study Right Tibial Nerve Rec Site: AH Lat (ms) Amp (mV) Area (mVms) Dist (mm) C.V. (m/s) Stim Site Ankle 5.1 8.6 30.7 Pop.Fos. 14.9 7.7 31.9 375 41.2 Sensory Nerve Study Right Median Nerve Rec Site: Wrist Pk Lat (ms) Amp (uV) Stim Site Thumb 2.8 26.0 Sensory Nerve Study Right Ulnar Nerve Rec Site: Wrist Pk Lat (ms) Amp (uV) Stim Site 5th dig 2.5 21.0 Sensory Nerve Study Right Radial Nerve Rec Site: Wrist Pk Lat (ms) Amp (uV) Stim Site Index 2.1 24.0 Sensory Nerve Study Left Sural Nerve Rec Site: Ankle Pk Lat (ms) Amp (uV) Stim Site mid calf 5.0 12.3 Sensory Nerve Study Right Sural Nerve Rec Site: Ankle Pk Lat (ms) Amp (uV) Stim Site mid calf 5.3 5.2 Sensory Nerve Study Right Superperon Nerve Rec Site: Pk Lat (ms) Amp (uV) Stim Site 4.3 7.3 F-Wave Study Right Median Nerve Rec Site: APB Latency Stim Site: Wrist ms F wave 27.83 F-M NR F-Wave Study Right Ulnar Nerve Rec Site: ADM Latency Stim Site: Wrist ms F wave 27.33 F-M NR F-Wave Study Left Peroneal Nerve Rec Site: EDB Latency Stim Site: Ankle ms F wave 49.50 F-M NR F-Wave Study Right Peroneal Nerve Rec Site: EDB Latency Stim Site: Ankle ms F wave NR F-M NR F-Wave Study Left Tibial Nerve Rec Site: AH Latency Stim Site: Ankle ms F wave 50.17 F-M NR F-Wave Study Right Tibial Nerve Rec Site: AH Latency Stim Site: Ankle ms F wave 55.67 F-M NR H Reflex Study Left Tibial Nerve Rec Site: Soleus Latency Stim Site: Pop.Fos. ms M wave 6.83 H wave 31.00 H Reflex Study Right Tibial Nerve Rec Site: Soleus Latency Stim Site: Pop.Fos. ms M wave 7.33 H wave 33.83 EMG Study Significantly limited due to patient's poor-none effor ts in muscle activation. Name Ins Act Fibs PSW Fascics Polyph MU Amp MU Dur Config Pattern Recruit R. Tibialis Ant. norm none none no ne Notes: POOR EFFORTS R. Gastroc.Med.H. norm none none None Notes: N O EFFORTS R. Vastus Med. norm none none none Notes: NO EFFORTS R. Dors.Int.1 norm none none none none norm norm norm norm norm R. Biceps Brachi. norm none none none none norm norm n orm norm norm R. Triceps norm non e none none none norm norm norm norm norm R. Pronator Ter. norm none none none Notes: NO EFFORTS R. Deltoid norm none none none No nicole: POOR EFFORTS R. Gluteus Med. norm none none none none norm norm nor m norm norm R. Peroneus Ln. norm none none none Notes: NO EFFORTS Conclusion: There is no electrophysiologic evidence of neuropathy or myopathy. Right Median Nerve Right Ulnar Nerve Left Peroneal Nerve Right Peroneal Nerve Left Tibial Nerve Right Tibial Nerve Right Median Nerve Right Ulnar Nerve Right Radial Nerve Left Sural Nerve Right Sural Nerve Right Superperon Nerve Right Median Nerve Right Ulnar Nerve Left Peroneal Nerve Right Peroneal Nerve Left Tibial Nerve Right Tibial Nerve Left Tibial Nerve Right Tibial Nerve CBC with platelet and differential (02/15/2020 5:00 AM CDT)Only the most recent of9 resultswithin the time period is included. WBC 8.53 4.50 - 11.00 [facility] k/uL HOSPITAL RBC 4.05 (L) 4.20 - 5.50 [facility] m/uL HOSPITAL HGB 12.0 12.0 - 16.0 [facility] g/dL [facility] HCT 36.1 (L) 37.0 - 47.0 % [facility] MCV 89.1 82.0 - 100.0 [facility] MCH 29.6 27.0 - 34.0 pg [facility] MCHC 33.2 31.0 - 37.0 [facility] g/dL [facility] RDW - SD 40.5 37.0 - 55.0 fL [facility] MPV 11.9 8.8 - 13.2 fL [facility] Platelet count 171 150 - 400 k/uL [facility] Nucleated RBC 0.00 /100 WBC [facility] Neutrophils 64.6 39.0 - 69.0 % [facility] Lymphocytes 26.0 25.0 - 45.0 % [facility] Monocytes 6.1 0.0 - 10.0 % [facility] Eosinophils 1.8 0.0 - 5.0 % [facility] Basophils 0.4 0.0 - 1.0 % [facility] Immature granulocytes 1.1 0.0 - 1.0 % [facility] (H)Comment: HOSPITAL "Immature granulocytes" (promyelocytes , myelocytes, metamyelocytes ) Specimen Plasma Performing Organization Address City/State/ZIP Code Phon e Number [facility] DEPARTMENT OF PATHOLOGY AND [address], [place] [address] GENOMIC MEDICINE [facility] [address] [place] [phone] Visual evoked potentials (02/14/2020 11:52 AM CDT) Narrative Performed At This result has an attachment that is no t available. PATTERN REVERSAL VISUAL EVOKED POTENTIAL REPORT Patient Name: Sapna Argueta Date of : 1985 Gender: female Date of Procedure: 02/14/2020 Indication Vision loss Findings Pattern reversal visual evoked potentials were obtaine d following independent left and right full field monocular stimul ation. [id number] absolute latencies were 99.8 msec and 102.6 msec follo wing independent left and right eye stimulation. All interpeak latencie s and waveform morphologies were normal. Impression This is a normal study. ICD10 Code/Diagnosis: G35 MRI Lumbar Spine W Wo Contrast (02/13/2020 10:28 AM CDT) Specimen Narrative Performed At EXAMINATION: MRI LUMBAR SPINE W WO CONTR AST HM [facility] CLINICAL HISTORY: New lower extremity we akness COMPARISON: None TECHNIQUE: Multiplanar multisequence nonenhanced and c ontrast enhanced MRI examination was performed of the lum bar spine. FINDINGS: There are 5 non-rib bearing lumbar type vertebrae, the lowest labeled L5 in this report as identified by the lumbosacral angle and iliolumbar ligaments. The alignment of the lumbar spine is within normal limits. No subluxation. No abnormal marrow edema or enhancement identified. No suspicious osseous lesio ns. No degenerative marrow signal abnormality is present. Eyad tebral body and intervertebral disc heights are preserve d. Conus medullaris terminates appropriately at the level level. No abnormal T2 hyperintense intramedullary signal or enha ncement identified. The cauda equina nerve roots are symmetric and normal in appearance. No abnormal thickening, clum ping or enhancement identified. Evaluation of the visualized soft tissues demonstrates no mass, adenopathy or aneurysm. Axial images through the disc spaces dem onstrate the following: L1-L2: No significant posterior disc disease, spinal c anal, subarticular zone, or neural foraminal stenosis. L2-L3: No significant posterior disc disease, spinal c anal, subarticular zone, or neural foraminal stenosis. L3-L4: No significant posterior disc disease, spinal c anal, subarticular zone, or neural foraminal stenosis. Mild facet arthros is is noted bilaterally. L4-L5: Mild right neural foraminal stenosis secondary to foraminal disc protrusion measuring 3 x 9 mm in axial dimensions. The re is questionable contact of the exiting L4 nerve root on the right, cuauhtemoc ge 11 of series 6. No significant posterior disc disease, spinal canal, subarticular zone, or left neur al foraminal stenosis. Mild to moderate facet arthros is is noted bilaterally. L5-S1: No significant posterior disc disease, spinal c anal, subarticular zone, or neural foraminal stenosis. Moderate facet art hrosis is noted bilaterally. Evaluation of other visualized levels demonstrates no significant posterior disc disease, spinal canal, subarticular zon e, or neural foraminal stenosis. IMPRESSION: Mild right neural foraminal stenosis at L4-L5 secondar y to foraminal disc protrusion, including questionable contact of the exiting L4 nerve root on the right. Recommend correlation to radiculopathy distribution. [facility]-[id number] Procedure Note Hm Interface, Radiology Results 02/13/2020 11:20 AM CDT EXAMINATION: MRI LUMBAR SPINE W WO CONTRAST CLINICAL HISTORY: New lower extremity we akness COMPARISON: None TECHNIQUE: Multiplanar multisequence non enhanced and contrast enhanced MRI examination was performed of the lumbar spine. FINDINGS: There are 5 non-rib bearing lumbar type vertebrae, the lowest labeled L5 in this report as identified by the lumbosacral angle and iliolumbar ligaments. The alignment of the lumbar spine is within normal limits. No subluxation. No abnormal marrow edema or enhancement identified. No suspicious osseous lesions. No degenerative marrow signal abnormality is present. Vertebral body and intervertebral disc heights are preserved. Conus medullaris terminates appropriatel y at the level level. No abnormal T2 hyperintense intramedullary signal or enhancement identified. The cauda equina nerve roots are symmetric and normal in appearance. No abnormal thickening, clumping or enhancement identified. Evaluation of the visualized soft tissue s demonstrates no mass, adenopathy or aneurysm. Axial images through the disc spaces dem onstrate the following: L1-L2: No significant posterior disc dis ease, spinal canal, subarticular zone, or neural foraminal stenosis. L2-L3: No significant posterior disc dis ease, spinal canal, subarticular zone, or neural foraminal stenosis. L3-L4: No significant posterior disc dis ease, spinal canal, subarticular zone, or neural foraminal stenosis. Mild facet arthrosis is noted bilaterally. L4-L5: Mild right neural foraminal steno sis secondary to foraminal disc protrusion measuring 3 x 9 mm in axial dimensions. There is questionable contact of the exiting L4 nerve root on the right, image 11 of series 6. No significant posterior disc disease, spinal canal, subarticular zone , or left neural foraminal stenosis. Mild to moderate facet arthrosis is noted bilaterally. L5-S1: No significant posterior disc dis ease, spinal canal, subarticular zone, or neural foraminal stenosis. Moderate facet arthrosis is noted bilaterally. Evaluation of other visualized levels de monstrates no significant posterior disc disease, spinal canal, subarticular zone, or neural foraminal stenosis. IMPRESSION: Mild right neural foraminal stenosis at L4-L5 secondary to foraminal disc protrusion, including questionable contact of the exiting L4 nerve root on the right. Recommend correlation to radiculopathy distribution. [facility]-[id number] Performing Organization Address [facility] Phon e Number [facility] [address] [place] [address] MRI Brain Venogram (02/13/2020 9:47 AM CDT) Specimen Narrative Performed At This result has an attachment that is no t available. EXAM: [facility] CL[facility]: Headache chronic normal neuro exam TECHNIQUE: Head MR venogram using 2D rhonda e-of-flight technique with multi-planar MIP and 3D reconstruction. COMPARISON: MRI brain, 02/03/2020 FINDINGS: The superior sagittal sinus, transverse and sigmoid sinuses as well as the straight sinus are all patent with no evidence of dural venous sinus thrombosis. The visualized internal cerebral veins, basal veins of Harmeet and the vein of [place] are all patent. The major cortical veins are patent. IMPRESSION: 1.Unremarkable head MR venogram with no definite evidence of dural sinus venous thrombosis. [id number] Procedure Note Interface, Radiology Results Incoming - 02/13/2020 10:00 AM CDT EXAM: MRI BRAIN VENOGRAM CLINICAL HISTORY: Headache chronic no rmal neuro exam TECHNIQUE: Head MR venogram using 2D rhonda e-of-flight technique with multi-planar MIP and 3D reconstruction. COMPARISON: MRI brain, 02/03/2020 FINDINGS: The superior sagittal sinus, transverse and sigmoid sinuses as well as the straight sinus are all patent with no evidence of dural venous sinus thrombosis. The visualized internal cerebral veins, basal veins of Harmeet and the vein of [place] are all patent. The major cortical veins are pat ent. IMPRESSION: 1.Unremarkable head MR venogram with no definite evidence of dural sinus venous thrombosis. [id number] Performing Organization Address [facility] Phon e Number [facility] [address] [place] [address] VENIPUNC NEED PHYS SKILL,DX OR RX (02/08/2020 [...] discussed: Delayed addie atment and alternative treatment [place] protocol: Procedure explained and questions ans wered [...] Flat Vessel Size (mm): 5 Indication: Known group home IV ther apy Location: Left basilic Device Type: Non-valved Catheter Lumen(s): Single lumen Catheter size: 3 Fr Catheter to vein ratio: 24% MidLine Characteristics: Catheter Brand: SL PROVENA MIDLINE Internal Catheter Length (cm): 12 Total Catheter Length (cm): 12 Catheter Lot Number: [id number] Catheter Expiration Date: 05/21/2021 Procedure details: Landmarks [...] 5:26 PM CDT) Specimen Narrative Performed At [facility] Vascular U ltrasound Laboratory Upper Extr emity Venous Report [id number] [address] Pat.Name: SAPNA ARGUETA Pat.ID: [id number] .Date: 02/07/2020 Refer.MD: MAISHA MADDOX MD Exam Time: 4:33:00 PM Study Type:U E Venous Height: 66in Weight: 220lb BSA: 2.08 m2 Ag e: 1985,34Y Sex: FEMALE Sonogrp hr: Davis Vi, RVT Pat. Stat.:Inpatient Room: [address] Tape Vol: HV, CPT - 4: 86372 Echo Event ID:[id number] Order ID: [id number] Reason for Study:Right arm pain and swel [...] Ultrasound Laboratory Upper Extremity Veno us Report [id number] [address] Pat.Name: SAPNA ARGUETA Pat.I D: [id number] .Date: 02/07/2020 Refer .MD: MAISHA MADDOX MD Exam Time: 4:33:00 PM Study Type:UE Venous Height: 66in Weigh t: 220lb BSA: 2.08 m2 Age: 7 1985,34Y Sex: FEMALE Sonog rphr: Ryan Torres RVT Pat. Stat.:Inpatient Room: [address] Tape Vol: HV, CPT - 4: 84746 Echo Event ID:[id number] Order ID: [id number] Reason for Study:Right arm pain and swel [...] MD, RPVI Performing Organization Address City/State/ZIP Code Phon e Number CUPID [address] [place] [address] [facility] NEED PHYS SKILL,DX OR RX (02/07/2020 [...] addie atment, alternative treatment, observation and referral [place] protocol: Procedure explained and questions ans wered [...] Catheter Length (cm): 12 Catheter Lot Number: [id number] Catheter Expiration Date: 01/18/2021 Procedure details: Landmarks [...] procedure: Massimo erated well, no immediate complications XR Chest 1 Vw Portable (02/05/2020 9:27 PM CDT) Specimen Narrative Performed At EXAMINATION: XR CHEST 1 VW PORTABLE [facility] CLINICAL HISTORY: 34 years Female ches t pressure on exertion COMPARISON: None. IMPRESSION: No acute cardiopulmonary disease. FINDINGS: The cardiomediastinal silhouette, lungs, and regional skeletal structures are within normal limits for age. [facility]-[id number] Procedure Note Hm Interface, Radiology Results Incoming - 02/05/2020 10:12 PM CDT EXAMINATION: XR CHEST 1 VW PORTABLE CLINICAL HISTORY: 34 years Female chest pressure on exertion COMPARISON: None. IMPRESSION: No acute cardiopulmonary disease. FINDINGS: The cardiomediastinal silhouette, lungs, and regional skeletal structures are within normal limits for age. [facility]-[id number] Performing Organization Address City/State/ZIP Code Phon e Number [facility] [address] [place] [address] ECG 12 lead (02/05/2020 9:12 PM CDT)Only the most recent of2 resultswithin the time period is included. Pathologist Sig nature Ventricular rate 78 [facility] Atrial rate 78 [facility] SD interval 144 [facility] QRSD interval 84 [facility] QT interval 382 [facility] QTC interval 435 [facility] P axis 1 52 [facility] QRS axis 1 52 [facility] MUSE T wave axis 40 [facility] MUSE EKG impression Normal sinus [facility] MUSE rhythm-Normal ECG-In automated comparison with ECG of 04-FEB-2020 04:50,-No significant change was found- Specimen Narrative Performed At This result has an attachment that is no t available. Performing Organization Address [facility] Phon e Number [facility] MUSE [address] [place] [address] IgG synthesis rate study (02/04/2020 11:00 AM CDT)Only the most recent of2 resultswithin the time period is included. IgG albumin ratio, SEE 0.00 - 0.23 NEL [facility] CSF COMMENTComment: HOSPITAL Footnote--------- IgG index, CSF SEE 0.01 - 0.63 [facility] COMMENTComment: HOSPITAL Footnote--------- IgG synthetic rate SEE -9.90 - 3.30 [facility] COMMENTComment: mg/day HOSPITAL Footnote--------- Q-albumin ratio, SEE 2.00 - 7.50 TOMPKINS [facility] CSF COMMENTComment: HOSPITAL Footnote--------- IgG, CSF SEE 1.00 - 3.00 [facility] COMMENTComment: mg/dL HOSPITAL Footnote--------- Albumin, CSF SEE 10.00 - 30.00 [facility] COMMENTComment: mg/dL HOSPITAL Footnote--------- IgG SEE COMMENT 700 - 1600 N[facility] Comment: mg/dL HOSPITAL Footnote--------- Corrected result; previously reported as 852 on 2019 at 12:58 by I/AUT Albumin, S SEE COMMENT 3640.0 - NEL [facility] Comment: 5304.0 mg/dL [facility] Footnote--------- DUPLICATE ORDER. Corrected result; previously reported as 3700.0 on at 12:58 by I/AUT Specimen Serum Performing Organization Address City/[facility] Phon e Number [facility] DEPARTMENT OF PATHOLOGY AND [phone] [address] AFB culture (02/04/2020 10:56 AM CDT) AFB culture No growth after 6 weeks of incubation. MALKA CHAVEZ isolate Comment: HOSPITAL Specimen Information Specimen Source: CSF (Spinal Fluid) Specimen Site: CSF (spinal fluid) Specimen Cerebrospinal fluid - CSF (spinal fluid) Performing Organization Address [facility] Phon e Number [facility] DEPARTMENT OF PATHOLOGY AND [address] [place] [address] Fungus culture (02/04/2020 10:56 AM CDT) Fungus culture No growth after 4 weeks of incubation. [facility] isolate Comment: HOSPITAL Specimen Information Specimen Source: CSF (Spinal Fluid) Specimen Site: CSF (spinal fluid) Specimen Cerebrospinal fluid - CSF (spinal fluid) Performing Organization Address [facility] Phon e Number [facility] DEPARTMENT OF PATHOLOGY AND [address] [place] [address] IR Lumbar Puncture by Radiology (02/04/2020 10:00 AM CDT) Specimen Narrative Performed At EXAMINATION: IR LUMBAR PUNCTURE HM [facility] CLINICAL HISTORY: meningitis versus le ukemia [...] Opening pressure was 21 cm of water. [facility]-[id number] Procedure Note Hm Interface, Radiology Results Incoming [...] Opening pressure was 21 cm of water. [facility]-[id number] Performing Organization Address City/State/ZIP Code Phon e Number [facility] [address] [place] [address] West Nile virus antibody panel, CSF (02/04/2020 9:56 AM CDT) West Nile IgG, 0.09 <=1.29 IV [facility] REF LAB CSF Comment: INTERPRETIVE INFORMATION: West Nile Virus Ab IgG by JEANNIE MCKENNA, CSF 1.29 IV or less ....... Negative: [...] of the Flavivirid ae family, such as Anderson encephalitis virus, show extensive cross-reactivity with West [...] rrier. Test developed and characteristics determined by [employer]. See Compliance Statement B: [facility]/ CS West Nile IgM, 0.02 <=0.89 IV [facility] REF LAB CSF Comment: INTERPRETIVE INFORMATION: West Nile Virus Ab IgM by JEANNIE MCKENNA, CSF 0.89 IV or less ...... Negative [...] of the Flavivirid ae family, such as Anderson encephalitis virus, show extensive cross-reactivity with West [...] rrier. Test developed and characteristics determined by [employer]. See Compliance Statement B: [facility]/ CS Performed By: [facility] [address] [place] [address] Travel Cota: Nai Rushing MD Specimen Cerebrospinal fluid Performing Organization Address City/[facility] Phon e Number [facility] [address] [place] [address] [facility] REF LAB [address] [place] [address] Cytomegalovirus by PCR (02/04/2020 9:56 AM CDT) Cytomegalovirus by PCR Not-Detected Not-Detected NEL [facility]Z IU/mL HOSPITAL Cytomegalovirus by PCR See link NEL CHAVEZ below for PDF HOSPITAL Lab ReportComment : Specimen Performing Organization Address City/[facility]/ZIP [facility] Phon e Number [facility] DEPARTMENT OF PATHOLOGY AND [address] [place] [address] [id number] [place] [address] Varicella zoster by PCR (02/04/2020 9:56 AM CDT) Pathologist [facility] VZV result Not-Detected Not-Detected [facility] copies/mL HOSPITAL Varicella zoster, See link below [facility] pcr for PDF Lab HOSPITAL ReportComment: Specimen Performing Organization Address City/[facility] Phon e Number [facility] DEPARTMENT OF PATHOLOGY AND [address] [place] [address] Miscellaneous referral test (02/04/2020 9:56 AM CDT)Only the most recent of3 resultswithin the time period is included. Pathologist [facility] Misc test name JCV QUANT PCR SHOWN [...] and its performance characteri stics determined by [employer]. It has not been cleared or approved by the U.S. Food and Drug Administration. Results should be used in conjunc tion with clinical findings, and should not form the sole basis for a socorro gnosis or treatment decision. Performed at: [facility] [address] [place], [place] Specimen Performing Organization Address City/[facility] Phon e Number [facility] DEPARTMENT OF PATHOLOGY AND [address] [place] [address] 0 [facility] SHOWN ABOVE Herpes simplex virus by PCR (02/04/2020 9:56 AM CDT) Pathologist [facility] Herpes virus, PCR Not-Detected Not-Detected [facility] Herpes virus, PCR See link below [facility] for PDF Lab HOSPITAL ReportComment: Specimen Performing Organization Address City/[facility] Phon e Number [facility] DEPARTMENT OF PATHOLOGY AND [address] [place] Flow cytometry evaluation (02/04/2020 9:56 AM CDT) [facility] Flow cytometry See link below [facility] evaluation for PDF Lab HOSPITAL Report Specimen Performing Organization Address City/[facility] Phon e Number [facility] DEPARTMENT OF PATHOLOGY AND [address] [place] [address] Albert Noble Virus (EBV) by PCR (02/04/2020 9:56 AM CDT) Albert Noble virus, Not-Detected Not-Detected [facility] PCR copies/mL [facility] Albert Noble virus, See link below [facility] PCR for PDF Lab HOSPITAL ReportComment: Specimen Performing Organization Address City/[facility] Phon e Number [facility] DEPARTMENT OF PATHOLOGY AND [address] [place] [address] Lyme disease reflexive panel, CSF (02/04/2020 9:56 AM CDT) B. burgdorferi Abs 0.08 <=0.99 [facility] DARSHANA, CSF Comment: When the [...] days. Test developed and characteristics determined by [employer]. See Compliance Statement B: [facility]/ CS Performed By: [facility] [address] [place] [address] Travel Cota: Nai Rushing MD Specimen Cerebrospinal fluid Performing Organization Address [facility] Phon e Number [facility] [address] [place] [address] [facility] REF [facility] [address] [place] [address] Cryptococcal antigen, screen (02/04/2020 9:56 AM CDT) [facility] Cryptococcal Ag Negative - No Cryptococcus antigen detected. [facility] Comment: HOSPITAL Specimen Information Specimen Source: CSF (Spinal Fluid) Specimen Site: CSF (spinal fluid) Specimen Cerebrospinal fluid - CSF (spinal fluid) Performing Organization Address [facility] Phon e Number [facility] DEPARTMENT OF PATHOLOGY AND [address] [place] [phone] GENOMIC MEDICINE [address] [address] Oligoclonal banding, CSF (02/04/2020 9:56 AM CDT) [facility] Protein, CSF 24 15 - 45 [facility] mg/dL [facility] Prealbumin, CSF (%) 6.4 3.5 - 11.1 % [facility] Albumin, CSF 66.1 40.8 - 66.2 [facility] Alpha 1, CSF (%) 2.4 2.3 - 6.4 % [facility] Alpha 2, CSF (%) 6.1 6.1 - 12.6 % [facility] Beta, CSF (%) 13.1 11.7 - 24.1 [facility] Gamma, CSF (%) 5.9 5.6 - 12.2 % [facility] CSF extended See [facility] interpretation CommentComment: An [facility] normal [facility] CSF protein study. No oligoclonal bands seen. CSF interpretation See [facility] CommentComment: [facility] Miguel Boyd, PhD; HOSPITAL Fam Calderón MD Specimen Cerebrospinal fluid Performing Organization Address [facility] Phon e Number [facility] DEPARTMENT OF PATHOLOGY AND [address] [place] [address] [phone] [address] Enterovirus by PCR (02/04/2020 9:56 AM CDT) Pathologist Sig nature Enterovirus PCR Not-Detected Not-Detected [facility] Enterovirus PCR See link below [facility] for PDF Lab HOSPITAL ReportComment: Specimen Performing Organization Address [facility] Phon e Number [facility] DEPARTMENT OF PATHOLOGY AND [address] [place] [address] [phone] [address] [facility] Gram stain (02/04/2020 9:56 AM CDT) Pathologist [facility] Gram stain isolate No WBC's or organisms seen. [facility] Comment: HOSPITAL Specimen Information Specimen Source: CSF (Spinal Fluid) Specimen Site: CSF (spinal fluid) Specimen Cerebrospinal fluid - CSF (spinal fluid) Performing Organization Address [facility] Phon e Number [facility] DEPARTMENT OF PATHOLOGY AND [address] [place] [address] [phone] [address] CSF culture (02/04/2020 9:56 AM CDT) Pathologist [facility] CSF culture No growth after 3 days. [facility] isolate Comment: HOSPITAL Specimen Information Specimen Source: CSF (Spinal Fluid) Specimen Site: CSF (spinal fluid) Specimen Cerebrospinal fluid - CSF (spinal fluid) Performing Organization Address [facility] Phon e Number [facility] DEPARTMENT OF PATHOLOGY AND [address] [place] [address] [phone] [address] CSF cell count with differential (02/04/2020 9:56 AM CDT) Color, CSF Colorless [facility] Appearance, CSF Clear [facility] Comment: HOSPITAL Corrected result called to Juan Daniel Mallory/WT18 13:21 Corrected result; previously reported as Slightl y hazy on 02/04/2020 at 11:19 by DH2 RBC, CSF 33 (H) 0 - 1 /CMM [facility] WBC, CSF 1 0 - 5 /CMM [facility] CSF mononuclear cell 1/CMM [facility] Specimen Cerebrospinal fluid Performing Organization Address City/[facility] Phon e Number [facility] DEPARTMENT OF PATHOLOGY AND [address] [place] [address] [phone] [address] VDRL, CSF screen (02/04/2020 9:56 AM CDT) Pathologist Sig nature VDRL, CSF screen Non-reactive Non-reactive [facility] Specimen Cerebrospinal fluid Performing Organization Address City/[facility] Phon e Number [facility] DEPARTMENT OF PATHOLOGY AND [address] [place] [address] [phone] [address] Glucose level, CSF (02/04/2020 9:56 AM CDT) Pathologist Sig nature Glucose, CSF 90 (H) 40 - 70 mg/dL [facility] Specimen Cerebrospinal fluid Performing Organization Address [facility] Phon e Number [facility] DEPARTMENT OF PATHOLOGY AND [address] [place] [address] [phone] [address] Angiotensin converting enzyme, CSF (02/04/2020 9:56 AM CDT) Angiotensin 0.6 0.0 - 2.5 [facility] converting enzyme, Comment: U/L CSF This test was developed and its performance characteri stics determined by [employer]. The U.S. Food and Isma g Administration has not approved or cleared this test; however, FDA clearance or approval is not currently required for cl inical use. The results are not intended to be used as the sole me ans for clinical diagnosis or patient management decisions. Performed By: [facility] [address] [place] [address] Travel Cota: Nai Rushing MD Specimen Cerebrospinal fluid Performing Organization Address City/[facility] Phon e Number [facility] [address] [place] [address] [facility] [address] [place] [address] EEG (routine) (02/04/2020 7:19 AM CDT) Narrative [...] No growth after 5 days of incubation. HO ADDISON [facility] isolate Comment: HOSPITAL Specimen Information Specimen Source: Blood Specimen Site: Antecubital, right Specimen Blood - Antecubital, right Performing Organization Address City/State/ZIP Code Phon e Number [facility] DEPARTMENT OF PATHOLOGY AND [address] [place], [place] [address] GENOMIC MEDICINE [facility] [address] [place] [address] Urinalysis screen and microscopy, with reflex to culture (02/04/2020 12:56 AM CDT) Specimen site Clean catch [facility] Color, UA Yellow [facility] Appearance, UA Clear [facility] Specific gravity, UA 1.036 (H) 1.001 - 1.035 [facility] pH, UA 5.0 5.0 - 8.5 [facility] Protein, UA 1+ (A) Negative [facility] Glucose, UA 1+ (A) Negative [facility] Ketones, UA Negative Negative [facility] Bilirubin, UA Negative Negative [facility] Blood, UA Negative Negative [facility] Nitrite, UA Negative Negative [facility] Urobilinogen, UA <2.0 <2.0 [facility] Leukocyte esterase, Negative Negative [facility] Epithelial cells, UA 2 /HPF [facility] WBC, UA <1 0 - 4 /HPF [facility] RBC, UA None seen 0 - 5 /HPF [facility] Bacteria, UA None seen None seen [facility] Yeast, UA Few (A) [facility] Yeast with None seen [facility] pseudohyphae, [facility] Hyaline casts, UA 4 /LPF [facility] Specimen Urine Performing Organization Address City/[facility] Phon e Number [facility] DEPARTMENT OF PATHOLOGY AND [address] [place] [address] [phone] [address] Urine drugs of abuse screen (02/04/2020 12:56 AM CDT) Amphetamine screen, Negative [facility] urine [facility] Barbiturate screen, Negative [facility] urine [facility] Benzodiazepine Negative [facility] screen, urine [facility] Cocaine screen, urine Negative [facility] Methadone metabolite Negative [facility] (EDDP), urine [facility] Opiates screen, urine Positive (A) [facility] Oxycodone screen, Negative [facility] urine [facility] Phencyclidine screen, Negative [facility] urine [facility] Tricyclic screen, Negative [facility] urine [facility] Cannabinoid screen, Negative [facility] urine Comment: [facility] Drug screen minimum concentration of detectability [facility] Amphetamines 1000 ng/mL Barbiturates 200 ng/mL Benzodiazepines [...] requir ed. Specimen Urine Performing Organization Address [facility] Phon e Number [facility] DEPARTMENT OF PATHOLOGY AND [address] [place] [address] [phone] [address] Urine culture (02/04/2020 12:56 AM CDT) Pathologist Sig nature Urine culture SEE COMMENTComment: [facility] Bacteriuria screen HOSPITAL negative. Specimen Performing Organization Address City/[facility] Phon e Number [facility] DEPARTMENT OF PATHOLOGY AND [address] [place] [address] [phone] [address] COVID-19 qualitative PCR (02/03/2020 11:41 PM CDT) Interpretation Negative results do not prec lude 2019-nCoV infection and should not be used as the sole basis for treatment or other patient management decisions. Negative results must be combined with clinical observations, patient history, and epidemiological [facility] information. [facility] COVID-19 qualitative Not-Detected Not-Detecte [facility] PCR result d [facility] COVID-19 qualitative See link below for [facility] PCR PDF Lab [facility] ReportComment: Case HOSPITAL Number: [id number] Specimen Nasal swab Performing Organization Address [facility] Phon e Number [facility] DEPARTMENT OF PATHOLOGY AND [address] [place], [place] [address] GENOMIC MEDICINE [facility] [address] [place] [address] [facility] MRI Brain & Orbit W Wo Contrast [...] Unremarkable MRI of the brain and orbits. [facility]-[id number] Procedure Note Interface, Radiology Results Incoming - [...] MRI of the brain and orbits . [facility]-[id number] Performing Organization Address [facility] Phon e Number [facility] [address] [place] [address] MRI Thoracic Spine W Contrast (02/03/2020 10:12 PM CDT) Specimen Narrative Performed At EXAMINATION: MRI THORACIC SPINE W CONTRA ST [facility] CLINICAL HISTORY: demyelinating lesions COMPARISON: None [...] City/State/ZIP Code Phon e Number [facility] [address] [place] [address] MRI Cervical Spine W Contrast (02/03/2020 10:12 PM CDT) Specimen Narrative Performed At EXAMINATION: MRI CERVICAL SPINE W CONT RAST [facility] CLINICAL HISTORY: demyelinating lesion s COMPARISON: [...] No evidence of cervical cord demyelinati on. [facility]-[id number] Procedure Note Hm Interface, Radiology Results 02/03/2020 10:36 PM CDT EXAMINATION: MRI CERVICAL [...] No evidence of cervical cord demyelinati on. [facility]-[id number] Performing Organization Address City/[facility]/ZIP [facility] Phon e Number [facility] [address] [place] [address] Cytology (non-gynecological) request (02/03/2020 8:17 PM CDT) [facility] DEPARTMENT OF PATHOLOGY AND GENOMIC MEDICINE Cytology See link below [facility] DEPARTMENT OF (non-gynecological) for PDF Lab PATHOLOGY AND report Report GENOMIC MEDICINE Result status This is Final [facility] DEPARTMENT OF Report for PATHOLOGY AND [id number] GENOMIC MEDICINE Specimen Performing Organization Address City/[facility]/ZIP [facility] Phon e Number [facility] DEPARTMENT OF PATHOLOGY AND [address] [place] [phone] GENOMIC MEDICINE Comprehensive metabolic panel (02/03/2020 6:35 PM CDT) Sodium 140 135 - 148 [facility] mEq/L [facility] Potassium 3.8 3.5 - 5.0 [facility] mEq/L [facility] Chloride 104 98 - 112 [facility] mEq/L [facility] CO2 18 (L) 24 - 31 mEq/L [facility] Anion gap 18@ANIO (H) 7 - 15 mEq/L [facility] BUN 16 6 - 20 mg/dL [facility] Creatinine 0.62 0.50 - 0.90 [facility] mg/dL HOSPITAL Glucose 137 (H) 65 - 99 mg/dL [facility] Calcium 9.0 8.3 - 10.2 [facility] mg/dL [facility] Protein 7.2 6.3 - 8.3 [facility] Comment: g/dL [facility] [place] 4.6-7.0 g/dL 1 week 4.4-7.6 g/dL 7 months-1year 5.1-7.3 g/dL 1-2 years 5.6-7.5 g/dL >3 years 6.0-8.0 g/dL 18-150 6.3-8.3 g/dL Albumin 3.9 3.5 - 5.0 [facility] g/dL [facility] A/G ratio 1.2 0.7 - 3.8 [facility] Alkaline phosphatase 57 35 - 104 U/L [facility] AST 15 10 - 35 U/L [facility] ALT 25 5 - 50 U/L [facility] Total bilirubin 0.3 0.0 - 1.2 [facility] mg/dL HOSPITAL Specimen Blood Performing Organization Address City/[facility] Phon e Number [facility] DEPARTMENT OF PATHOLOGY AND [address] [place] [address] [address] Syphilis total antibody (02/03/2020 6:25 PM CDT) Syphilis total Non-reactiveComment Non-reactive [facility] antibody : No serological HOSPITAL evidence of syphilis infection. Specimen Serum Performing Organization Address City/[facility]/ZIP [facility] Phon e Number [facility] DEPARTMENT OF PATHOLOGY AND [address] [place] [address] [phone] [address] HIV Ag/Ab combination (02/03/2020 6:25 PM CDT) HIV Ag/Ab combination Non-reactive Non-reactive [facility] Specimen Blood Performing Organization Address City/[facility]/ZIP [facility] Phon e Number [facility] DEPARTMENT OF PATHOLOGY AND [address] [place] [address] [phone] [address] Homocystine, plasma (02/03/2020 6:25 PM CDT) [facility] Homocysteine 6.4 0.0 - 15.0 [facility] Comment: umol/L HOSPITAL The risk for coronary vascular disease increases progr essively with homocysteine concentration. A 3.4 times greater risk is associated with a homocysteine concentration of greate r than 15.8 umol/L as compared to a concentration below 14.1 umol/L. Specimen Blood Performing Organization Address [facility] Phon e Number [facility] DEPARTMENT OF PATHOLOGY AND [address] [place], [place] [phone] GENOMIC MEDICINE [facility] [address] [place] [address] B. burgdorferi Abs total, serum (02/03/2020 6:25 PM CDT) [facility] B. burgdorferi 0.98 0.00 - 1.20 [facility] antibodies Comment: INTERPRETIVE INFORMATION: Borrelia Burgdorferi Abs,Tot al by DARSHANA 0.99 REJI or Less: ...... Negative: Antibody to B. burgdorferi no t detected. 1.00 - 1.20 REJI......... Equivocal: Repeat testing in 10-14 days may be helpful. 1.21 REJI or Greater: ... Positive: Probable presenc e of antibody to B. burgdorferi detected. Performed By: [facility] [address] [place] [address] [employer]: Nai Rushing MD Specimen Serum Performing Organization Address City/[facility] Phon e Number [facility] [address] [place] [address] [facility] [address] [place] [address] Vitamin D 25 hydroxy level (02/03/2020 6:25 PM CDT) [facility] Vitamin D, 48.7 30.0 - 150.0 [facility] 25-hydroxy Comment: ng/mL [facility] This assay reports the sum of 25-hydroxy [...] alternative methods. Specimen Blood Performing Organization Address City/[facility] Phon e Number [facility] DEPARTMENT OF PATHOLOGY AND [address] [place] [address] [address] Sedimentation rate (02/03/2020 6:25 PM CDT) Pathologist Sig nature Sedimentation rate 7 0 - 20 mm/hr [facility] Specimen Blood Performing Organization Address [facility] Phon e Number [facility] DEPARTMENT OF PATHOLOGY AND [address] [place] [address] Rheumatoid factor (02/03/2020 6:25 PM CDT) Pathologist Sig nature Rheumatoid factor <10 0 - 13 IU/mL [facility] Specimen Blood Performing Organization Address [facility] Phon e Number [facility] DEPARTMENT OF PATHOLOGY AND [address] [place] [address] [address] C-reactive protein (02/03/2020 6:25 PM CDT) Pathologist Sig nature CRP <0.30 0.00 - 0.50 mg/dL [facility] Specimen Blood Performing Organization Address [facility] Phon e Number [facility] DEPARTMENT OF PATHOLOGY AND [address] [place] [address] [address] ELMER (02/03/2020 6:25 PM CDT) [place] screen Negative Negative [facility] Comment: HOSPITAL Test performed using NOVA Lite DAPI ELMER kit (Indirect Immunofluorescence Assay) for Anti-Nuclear Antibody on ApseA-Lyser 160 Analyzer. Specimen Blood Performing Organization Address [facility] Phon e Number [facility] DEPARTMENT OF PATHOLOGY AND [address] [place] [address] [place] [address] T3 (02/03/2020 6:25 PM CDT) Pathologist Sig nature T3 70 (L) 80 - 200 ng/dL [facility] Specimen Blood Performing Organization Address City/[facility]/ZIP [facility] Phon e Number [facility] DEPARTMENT OF PATHOLOGY AND [address] [place] [address] [phone] [address] Thyroid stimulating hormone (02/03/2020 6:25 PM CDT) Pathologist Sig nature TSH 1.12 0.27 - 4.20 uIU/mL [facility] ITAL Specimen Blood Performing Organization Address City/[facility]/ZIP [facility] Phon e Number [facility] DEPARTMENT OF PATHOLOGY AND [address] [place] [address] [phone] [address] T4, free (02/03/2020 6:25 PM CDT) Pathologist Sig [facility] T4, free 1.0 0.9 - 1.7 ng/dL [facility] Specimen Blood Performing Organization Address [facility] Phon e Number [facility] DEPARTMENT OF PATHOLOGY AND [address] [place] [address] [phone] [address] Folate level (02/03/2020 6:25 PM CDT) Pathologist Sig [facility] Folate 8.0 4.8 - 24.2 ng/mL [facility] Specimen Serum Performing Organization Address City/[facility]/ZIP [facility] Phon e Number [facility] DEPARTMENT OF PATHOLOGY AND [address] [place] [address] [phone] [address] Vitamin B12 level (02/03/2020 6:25 PM CDT) Vitamin B12 [phone] [facility] Comment: pg/mL HOSPITAL Significant overlap exists between normal and deficien cy states. However, most patients with deficiencies will have Ser um B12 <200 pg/mL. Specimen Serum Performing Organization Address City/[facility]/ZIP Code Phon e Number [facility] DEPARTMENT OF PATHOLOGY AND [address] [place] [address] [phone] [address] Cortisol level, random (02/03/2020 6:25 PM CDT) Cortisol, random 2 ug/dL [facility] Comment: HOSPITAL Reference Ranges are not established for non-timed Cor tisol levels. Reference Range for Timed Cortisol: 6 - 10 AM 6 - 18 ug/d l 4 - 8 PM 3 - 11 ug/ dl Specimen Blood Performing Organization Address City/State/ZIP Code Phon e Number [facility] DEPARTMENT OF PATHOLOGY AND [address] [place], [place] [address] GENOMIC MEDICINE [facility] [address] [place] [address] CT Head Wo Contrast (02/03/2020 4:14 PM [...] appropria te moderation of exposure. Automated dose professor of sport management nology is applied to adjust radiation exposure [...] ensure appropriate moderation of exposure. Automated dose professor of sport management nology is applied to adjust radiation exposure [...] intracranial ab normality. [id number] Performing Organization Address [facility] Phon e Number [facility] [address] [place] [address] hCG quantitative, serum (02/03/2020 2:27 PM CDT) hCG quantitative, <1 0 - 5 mIU/mL [facility] serum Comment: HOSPITAL Reference range for HCG Quant applies to males and non - females. 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
--- OUTSIDE RECORDS SUMMARY | 2020-03-20 06:48 | XMS REPORT | Continuity of Care Document ---
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) Headache Active Problem 03/03/2020 [facility] (finding) Neuro Simple obesity Active Problem 03/03/2020 Misc her (disorder) Neuro Backache Active Problem 03/03/2020 [facility] (finding) Neuro Hemiplegia Active Problem 03/03/2020 [facility] (disorder) Neuro Visual Active Problem 03/03/2020 [facility] disturbance Neuro (disorder) Medications Medication Details Route Status Patient Ordering Order Source Instructions Provider Date Reglan 0 Refill(s) Active [facility] 020 Neuro oxcarbazepine 300 300 mg = 1 Active Mis doreen MG Oral Tablet tab, PO, 019 Neuro [Trileptal] BID, # 180 tab, 3 Refill(s), [id number] 24 HR topiramate 100 mg = 1 Active Misc her 100 MG Extended cap, PO, 019 Neuro Release Capsule Daily, # 90 [Trokendi] cap, 3 Refill(s), Pharmacy: [facility] Command Information #[id number] 24 HR topiramate 100 mg = 1 No Longer Mi matt 100 MG Extended cap, PO, Active 019 Neuro Release Capsule Daily, X 30 [Trokendi] day, # 30 cap, 3 Refill(s), Pharmacy: [facility] oxcarbazepine 300 300 mg = 1 No Longer M ischer MG Oral Tablet tab, PO, Active 019 Neuro [Trileptal] BID, X 30 day, # 60 tab, 3 Refill(s), Pharmacy: [facility] lisdexamfetamine 30 mg = 1 Active Misch er dimesylate 30 MG cap, PO, 019 Neuro Oral Capsule QAM, # 30 [Vyvanse] cap, 0 Refill(s) omeprazole 20 mg 20 mg = 1 Active Misch er oral delayed cap, PO, 019 Neuro release capsule Daily, # 30 cap, 2 Refill(s), Pharmacy: [facility] oxcarbazepine 300 300 mg = 1 Active Mis doreen MG Oral Tablet tab, PO, 019 Neuro [Trileptal] BID, # 60 tab, 2 Refill(s), Pharmacy: [facility] 24 HR topiramate 100 mg = 1 Active Misc her 100 MG Extended cap, PO, 019 Neuro Release Capsule Daily, # 30 [Trokendi] cap, 3 Refill(s), Pharmacy: [facility] topiramate 25 MG 25 mg = 1 Active Misch er Oral Tablet tab, PO, 019 Neuro [Topamax] BID, # 60 tab, 2 Refill(s), Pharmacy: [facility] Phenytoin sodium 200 mg = 2 Active Misc her 100 MG Extended cap, PO, 019 Neuro Release Capsule BID, # 120 [Dilantin] cap, 3 Refill(s), Pharmacy: [facility] Alprazolam 0.5 MG 0.5 mg = 1 [...] Value Date Comments Source Systolic (mm Hg) 112 02/29/2020 [facility] ro Diastolic (mm Hg) 72 02/29/2020 [facility] Heart Rate 88 02/29/2020 [facility] Respitory Rate 16 02/29/2020 [facility] Height 167.64 cm 02/29/2020 [facility] Weight 100 02/29/2020 [facility] BMI Calculated 35.58 02/29/2020 [facility] Systolic (mm Hg) 120 12/23/2018 [facility] Adrian ro Diastolic (mm Hg) 85 12/23/2018 [facility] 75 [facility] 16 12/23/2018 [facility] Height 167.64 cm 12/23/2018 [facility] Weight 90 12/23/2018 [facility] BMI Calculated 32.02 12/23/2018 [facility] BMI Calculated 32.02 11/27/2018 [facility] Weight 90 11/27/2018 [facility] Height 167.64 cm 11/27/2018 [facility] Heart Rate 74 11/27/2018 [facility] Respitory Rate 16 11/27/2018 [facility] Systolic (mm Hg) 106 11/27/2018 [facility] Adrian ro Diastolic (mm Hg) 79 11/27/2018 [facility] BMI Calculated 33 10/16/2018 [facility] Weight 92.727 10/16/2018 [facility] Height 167.64 cm 10/16/2018 [facility] Heart Rate 78 10/16/2018 [facility] Respitory Rate 16 10/16/2018 [facility] Systolic (mm Hg) 129 10/16/2018 [facility] Adrian ro Diastolic (mm Hg) 87 10/16/2018 [facility] BMI Calculated 32.67 10/01/2018 [facility] Weight 91.818 10/01/2018 [facility] Height 167.64 cm 10/01/2018 [facility] Respitory Rate 16 10/01/2018 [facility] Heart Rate 83 10/01/2018 [facility] Systolic (mm Hg) 109 10/01/2018 [facility] Adrian ro Diastolic (mm Hg) 80 10/01/2018 [facility] Encounters Location Location Encounter Encounter Reason Attending ADM DC Stat us Source Details Type Number For Provider Date Date Visit Outpatient [id number] David 10/01 [facility] Ricardo MNA Outpatient [id number] David 10/01 10/02 [facility] [place] Out[facility] [id number] David 10/02 Active [facility] Ricardo MNA Outpatient [id number] David 10/02 10/03 [facility] [place] Outpatient [id number] David 10/16 Active [facility] [place] MNA Outpatient [id number] David 10/16 10/17 [facility] /2018 [facility] [place] Outpatient [id number] David 11/27 Active [facility] [place] MNA Outpatient [id number] David 11/27 11[facility]28 [facility] [place] [facility] [id number] David 12/23 Active [facility] Ric[place] MNA Outpatient [id number] David 12/23 12/24 [facility] [place] [facility] [id number] David 04/28 Active [facility] [place] MNA Ambulatory [id number] David 04/28 04/28 [facility] [place] /2019 [facility] [place] MNA Outside [id number] 05/21 05/23 Mis doreen Neurology Medical /2019 [facility] [place] Records Outpatient [id number] David 02/14 Active [facility] [place] MNA Ambulatory [id number] Marck 02/14 02/14 [facility] /2019 [facility] [place] Outpatient [id number] David 02/28 Active [facility] Ric[place] MNA Outpatient [id number] David 02/28 03/01 [facility] [facility]2019 [facility] [place] Outpatient [id number] David 04/11 Active [facility] Ricardo Procedures Procedure Code Date Perfomer Comments Source [place]al [place] [id number] [facility] [place] and Plan No Data Provided for This Section Plan of Care No Data Provided for This Section Social History Social History Date Source Social History TypeResponse 10/01/2018 [facility] Employment/School Status: Employed. Smoking Status Never smoker; Exposure to Tobacco Smoke None; Cigarette Smoking Last 365 Days No; Reg Smoking Cessation Counseling No entered on: 02/29/20 Family History No Data Provided for This Section Advance Directives No Data Provided for This Section Functional Status No Data Provided for This Section
--- OUTSIDE RECORDS SUMMARY | 2020-03-20 06:51 | XMS REPORT | Continuity of Care Document ---
:1985 Author Organization [facility] t Address [address] [place] [address] Care Team Providers Name Role Phone Yari HAMILTON Primary Care Physician Tung HAMILTON, Jae Attending Clinician Marck Chung Attending Clinician Marichuy HAMILTON Attending Clinician Toni Maldonado MD Attending Clinician Barber Attending Clinician Unavailable Janice Guevara MD Attending Clinician Edwin HAMILTON Attending Clinician Varsha HAMILTON, [facility] Attending Clinician Ricky HOBSON Attending Clinician Unavailable MARICHUY Admitting Clinician Unavailable EDWIN Admitting Clinician Unavailable Payers Payer Name Policy Type Policy Effective Date Expiration Date Sour ce Number BCBSBCBS CHOICE [id number] 2019 [place] PPO/FEDERAL 00:00:00 Alevism EMPL [id number] 2019Mary Ann ntPPO Problems Condition Condition Condition Status Onset Resolution Last Treating Co mments Source Name Details Category Date Date Treatment Clinician Date Lower Lower Disease Active 2019-04 [place] extremity extremity 0-28 Meth tanvi weakness weakness 00:00: st 00 Debility Debility Disease Active 2019-04 [place] 0-26 Methodi 00:00: st 00 Weakness Weakness Disease Active 2019-04 [place] 0-24 Methodi 00:00: st 00 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 [place] al 0-24 [facility]i dysfunctio dysfunctio 00:00: st n n 00 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 [place] neuritis neuritis 0-15 Method i 00:00: st 00 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, leukemia, 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 (disorder) Active Problem 03/03/2020 [facility] History of Problem Active 2020-03-03 M emoria - * 02:01:09 l leukemia History Rupal nn (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) (context-d ependent category) Active Problem 03/03/2020 [facility] Headache Problem Active 2020-03-03 Mem oria (finding) 02:01:09 l Headache Murray n (finding) Active Problem 03/03/2020 [facility] Simple Problem Active 2020-03-03 Memor ia obesity 02:01:09 l (disorder) Simple Herm zay obesity (disorder) Active Problem 03/03/2020 [facility] Backache Problem Active 2020-03-03 Mem oria (finding) 02:01:09 l Backache Murray n (finding) Active Problem 03/03/2020 [facility] Hemiplegia Problem Active 2020-03-03 M emoria (disorder) 02:01:09 l [place] Hemiplegia (disorder) Active Problem 03/03/2020 [facility] Visual Problem Active 2020-03-03 Memor ia disturbanc 02:01:09 l e Visual [place] (disorder) disturbanc e (disorder) Active Problem 03/03/2020 [facility] Allergies, Adverse Reactions, Alerts Allergy Allergy Status Severity Reaction(s) Onset Inactive Treating Comm ents Source Name Type Date Date Clinician Cephalex Propensi Active Hives 2019-04 [place] in ty to 0-16 Methodi adverse 00:00: st reaction 00 s to drug Latex Propensi Active Hives 2019-04 [place] ty to 0-16 Methodi adverse 00:00: st reaction 00 s to drug Ondanset Propensi Active Headache 2019-04 [place] mikey Hcl ty to 0-16 Methodi adverse 00:00: st reaction 00 s to drug Gadobutr Propensi Active Other (See 2019-04 Vomiting1 [place] ol ty to Comments) 0-15 Method i adverse 00:00: 8:30pm- st reaction 00 Per s to patient drug denied shortness of breath, hives, itchiness . Only nauseous/ vomiting as a side effect after administr ation of Gadavist. Cephalex Adverse [facility] Not [facility] Reaction Available [facility] Zofran Adverse Active Info Not [facility] Reaction Available [facility] cephalex cephalex Active Memori a in in l [place] Latex Latex Active Memoria matt Silva Gadavist Gadavist Active Memori a l Ricardo Family History Family Member Diagnosis Comments Start Date Stop Date Source Paternal grandfather Kidney cancer M [facility] Social History Social Habit Start Date Stop Date Quantity Comments Source Sex Assigned At [facility] ethodist Exposure to Not sure [place] Metho dist SARS-CoV-2 (event) Tobacco use and 2020-03-08 2020-03-[address] [facility] ethodist exposure 00:00:00 00:00:00 Alcohol intake 2020-03-08 2020-03-08 Current drinker Kaylen Alevism 00:00:00 00:00:00 of alcohol (finding) Alcohol Comment 2020-02-03 2020-02-03 occ drinker [facility] 00:00:00 00:00:00 Social History 2018-10-01 2018-10-01 [facility] 13:53:53 13:53:53 Smoking Status Start Date Stop Date Source Never smoker [facility] Medications Ordered Filled Start Stop Current Ordering Indication Dosage Frequency Signature Comments Components Source Medication Medication Date Date Medication? Clinician (SIG) Name Name acetaminoph 2019-04 Yes 500mg Q6H Take 500 [place] (Tylenol 1-18 mg by Methodi Extra 12:47: mouth st Strength) 43 every 6 500 MG (six) tablet hours as needed for mild pain. Reglan 2019-04 Yes 0 Memoria 1-10 Refill(s) l 18:04: Ricardo 00 metoclopram 2019-04 Yes 1{tbl} Take 1 [place] dung HCl 1-10 tablet by Methodi (REGLAN 00:00: mouth as st ORAL) 00 needed. omeprazole 2019-04- No 20mg QD Take 1 [place] OTC 0-28 11-27 tablet (20 Methodi (PriLOSEC 00:00: 23:59 mg total) st OTC) 20 MG 00 :00 by mouth EC tablet daily for 30 days. metoclopram 2019-04- No 5mg [id number] Take 1 [place] dung 0-28 11-02 [id number] tablet (5 Met hodi (Reglan) 5 00:00: 23:59 3D mg total) s t MG tablet 00 :00 by mouth 3 (three) times a day as needed (nausea, vomiting) for up to 5 days. lisdexamfet 2019-04 No 40mg QD Take 40 mg [place] amine 0-26 10-26 by mouth Methodi (VYVANSE) 13:16: 00:[address] 40 MG 29 :00 (per capsule patient, stopped taking it last week - unknown reason); (per [facility] on Drug Monitoring Program, last filled 12/18/19, quantity: 30, day supply: 30) topiramate 2019-04- No 1{capsu QD Take 1 [place] [...] date: ~3 weeks ago - per patient) metoclopram 2019-04 2020- No 5mg Q.[id number] Take 1 [place] dung 0-20 - [id number] tablet (5 Met hodi (Reglan) 5 00:00: 00:00 3D mg total) s t MG tablet 00 :00 by mouth 3 (three) times a day as needed (nausea, vomiting) for up to 5 days. Vyvanse Vyvanse Yes Na Savage [address] [facility] 00[facility]: morning Memoria 00 l [facility] oxcarbazepi Yes 300 mg = 1 Memoria ne 300 MG 9-06 tab, PO, l Oral Tablet 16:04: BID, # 180 Ricardo [Trileptal] 19 tab, 3 Refill(s), Pharmacy: [id number] 24 HR Yes 100 mg = 1 Memori a topiramate 9-06 cap, PO, l 100 MG 16:04: Daily, # [place] Extended 10 90 cap, 3 Release Refill(s), Capsule Pharmacy: [Trokendi] [id number] 24 HR No 100 mg = 1 Memori a topiramate 9-04 cap, PO, l 100 MG 18:31: Daily, X Ricardo Extended 05 30 day, # Release 30 cap, 3 Capsule Refill(s), [Troken] Pharmacy: [facility] [place] oxcarbazepi No 300 mg = 1 Memoria ne 300 MG 9-04 tab, PO, l Oral Tablet 18:31: BID, X 30 H [place] [Trileptal] 02 day, # 60 tab, 3 Refill(s), Pharmacy: [facility] lisdexamfet 2018- Yes 30 mg = 1 M emoria amine 8-09 cap, PO, l dimesylate 16:20: QAM, # 30 He rmann 30 MG Oral 00 cap, 0 Capsule Refill(s) [Vyvanse] omeprazole Yes 20 mg = 1 Me moria 20 mg oral 7-17 cap, PO, l delayed 00:27: Daily, # Murray n release 00 30 cap, 2 capsule Refill(s), Pharmacy: [facility] oxcarbazepi Yes 300 mg = 1 Memoria ne 300 MG 7-03 tab, PO, l Oral Tablet 18:01: BID, # 60 H ermann [Trileptal] 00 tab, 2 Refill(s), Pharmacy: [facility] 24 HR Yes 100 mg = 1 Memori a topiramate 6-28 cap, PO, l 100 MG 14:50: Daily, # Ricardo Extended 00 30 cap, 3 Release Refill(s), Capsule Pharmacy: [Trokendi] [facility] topiramate Yes 25 mg = 1 Me moria 25 MG Oral 6-14 tab, PO, l Tablet 23:33: BID, # 60 Murray n [Topamax] 00 tab, 2 Refill(s), Pharmacy: [facility] Phenytoin Yes 200 mg = 2 Me moria sodium 100 6-13 cap, PO, l MG Extended 13:57: BID, # 120 [place] Release 00 cap, 3 Capsule Refill(s), [Dilantin] Pharmacy: [facility] Alprazolam Yes 0.5 mg = 1 M emoria 0.5 MG Oral 6-13 tab, PO, l Tablet 13:28: TID, 0 Ricardo [Xanax] 00 Refill(s) Zyrtec 0 Yes Daily, 0 Memoria 6-13 Refill(s) l [...] Date Status Commen ts Source Name Name FLUCSNEHA EVERETT PF 2020-02-06 Armando [place] 00:00:00 Alevism Influenza Split Completed MD Charles on 00:00:00 Vital Signs Vital Name Observation Time Observation Value Comments Source Body height 2020-03-08 12:47:00 167.6 cm [place] Alevism Body weight 2020-03-08 12:47:00 99.791 kg [place] Alevism BMI 2020-03-08 12:47:00 35.51 kg/m2 [place] Alevism Systolic (mm Hg) 2020-02-29 17:31:00 Unruly vang [place] Diastolic (mm Hg) 2020-02-29 17:31:00 Mem orial [place] Heart Rate 2020-02-29 17:31:00 Memorial Ricardo Respitory Rate 2020-02-29 17:31:00 Memori al Ricardo Height 2020-02-29 17:31:00 167.64 cm [facility] [place] Weight 2020-02-29 17:31:00 Memorial Ricardo BMI Calculated 2020-02-29 17:31:00 Memori al Ricardo Systolic blood 2020-02-16 08:37:35 128 mm[Hg] Yurito n Alevism pressure Diastolic blood 2020-02-16 08:37:35 72 mm[Hg] Kaylen on Alevism pressure Heart rate 2020-02-16 08:37:35 87 /min [place] Alevism Body temperature 2020-02-16 08:37:35 36.78 Staci [place] Alevism Respiratory rate 2020-02-16 08:37:35 18 /min [place] Alevism Oxygen saturation in 2020-02-16 08:37:35 95 /min [place] Alevism Arterial blood by Pulse oximetry Systolic (mm Hg) 2018-12-23 18:03:00 Unruly rial [place] Diastolic (mm Hg) 2018-12-23 18:03:00 Mem orial [place] Heart Rate 2018-12-23 18:03:00 Memorial Ricardo Respitory Rate 2018-12-23 18:03:00 Memori al Ricardo Height 2018-12-23 18:03:00 167.64 cm Memorial Ricardo Weight 2018-12-23 18:03:00 [facility] [place] BMI Calculated 2018-12-23 18:03:00 Memori al Ricardo BMI Calculated 2018-11-27 15:59:00 Memori al Ricardo Weight 2018-11-27 15:59:00 Memorial [place] Height 2018-11-27 15:59:00 167.64 cm Memorial [place] Heart Rate 2018-11-27 15:59:00 Memorial Ricardo Respitory Rate 2018-11-27 15:59:00 Memori al Ricardo Systolic (mm Hg) 2018-11-27 15:59:00 Unruly rial Ricardo Diastolic (mm Hg) 2018-11-27 15:59:00 Mem orial [place] BMI Calculated 2018-10-16 14:19:00 Memori al Ricardo Weight 2018-10-16 14:19:00 Memorial Ricardo Height 2018-10-16 14:19:00 167.64 cm Memorial [place] Heart Rate 2018-10-16 14:19:00 Memorial Ricardo Respitory Rate 2018-10-16 14:19:00 Memori al Ricardo Systolic (mm Hg) 2018-10-16 14:19:00 Unruly rial [place] Diastolic (mm Hg) 2018-10-16 14:19:00 Mem orial [place] BMI Calculated 2018-10-01 13:18:00 Memori al Ricardo Weight 2018-10-01 13:18:00 Memorial [place] Height 2018-10-01 13:18:00 167.64 cm Memorial Ricardo Respitory Rate 2018-10-01 13:18:00 Memori al [place] Heart Rate 2018-10-01 13:18:00 Memorial Ricardo Systolic (mm Hg) 2018-10-01 13:18:00 Unruly rial Ricardo Diastolic (mm Hg) 2018-10-01 13:18:00 Mem orial Ricardo Procedures Procedure Date / Time Performing Clinician Source Performed DURABLE MEDICAL EQUIPMENT 2020-02-16 10:31:42 Blessing Maldonado Toni BASIC METABOLIC PANEL 2020-02-16 05:10:00 Sharlene Julian on Alevismginette Laurent ESTIMATED GFR 2020-02-16 05:10:00 Blessing Maldonado Ga thodist Toni DURABLE MEDICAL EQUIPMENT 2020-02-15 15:56:49 Caleb Roque Alevism EMG 2020-02-15 12:46:48 [facility] 2020-02-15 05:00:00 Eber Castro W/AUTO DIFF BASIC METABOLIC PANEL 2020-02-15 05:00:00 Eber Castro ESTIMATED GFR 2020-02-15 05:00:00 Shira Benedict Meth odist VISUAL EVOKED POTENTIALS 2020-02-14 11:52:23 Dora Montalvo (VEP) HC COMPLETE BLD COUNT 2020-02-14 04:15:00 Eber Castro W/AUTO DIFF BASIC METABOLIC PANEL 2020-02-14 04:15:00 Eber Castro ESTIMATED GFR 2020-02-14 04:15:00 Shira Benedict Meth odist MRI LUMBAR SPINE W WO 2020-02-13 10:28:12 Eber Castro CONTRAST MRI BRAIN VENOGRAM 2020-02-13 09:47:24 Eber Castro HC COMPLETE BLD COUNT 2020-02-13 04:05:00 Eber Castro W/AUTO DIFF BASIC METABOLIC PANEL 2020-02-13 04:00:00 Eber Castro ESTIMATED GFR 2020-02-13 04:00:00 Shira Benedict Meth odist HC COMPLETE BLD COUNT 2020-02-12 10:18:00 Eber Castro W/AUTO DIFF BASIC METABOLIC PANEL 2020-02-12 08:00:00 Eber Castro ESTIMATED GFR 2020-02-12 08:00:00 Shira Benedict Meth odist VENIPUNC NEED PHYS 2020-02-08 10:39:11 Familia Colon [...] W/AUTO DIFF BASIC METABOLIC PANEL 2020-02-06 06:18:00 Varsha Michael Worley ESTIMATED GFR 2020-02-06 06:18:00 Varsha Michael Worley XR CHEST 1 VW PORTABLE 2020-02-05 21:27:51 Varsha Michael Worley ECG 12-LEAD 2020-02-05 21:12:53 Varsha Michael Worley HC COMPLETE BLD COUNT 2020-02-05 06:00:00 Varsha Michael Worley W/AUTO DIFF BASIC METABOLIC PANEL 2020-02-05 04:00:00 Varsha Michael Worley ESTIMATED GFR 2020-02-05 04:00:00 Michael Maddox IGG SYNTHESIS RATE STUDY 2020-02-04 11:00:00 Michael Maddox FUNGUS CULTURE 2020-02-04 10:56:00 Andressa Givens Me thodist AFB CULTURE 2020-02-04 10:56:00 Andressa Givens Me thodist IR LUMBAR PUNCTURE 2020-02-04 10:00:00 Andressa Givens CSF CULTURE 2020-02-04 09:56:00 Andressa Givens Me thodist CRYPTOCOCCAL ANTIGEN 2020-02-04 09:56:00 Andressa Givens on Alevism SCREEN GRAM STAIN 2020-02-04 09:56:00 Kim Guevara CSF CELL COUNT WITH 2020-02-04 09:56:00 Andressa Givens n Alevism DIFFERENTIAL GLUCOSE LEVEL, CSF 2020-02-04 09:56:00 Andressa Givens IGG SYNTHESIS RATE STUDY 2020-02-04 09:56:00 Andressa Givens VDRL, CSF SCREEN 2020-02-04 09:56:00 Andressa Givens M ethodist LYME DISEASE REFLEXIVE 2020-02-04 09:56:00 Andressa Givens PANEL, CSF CYTOMEGALOVIRUS BY PCR 2020-02-04 09:56:00 Andressa Givens ENTEROVIRUS BY PCR 2020-02-04 09:56:00 Andressa Givens HERPES SIMPLEX VIRUS BY 2020-02-04 09:56:00 Andressa Givens PCR FLOW CYTOMETRY EVALUATION 2020-02-04 09:56:00 Andressa Givens [place] VIRUS ANTIBODY 2020-02-04 09:56:00 Andressa Givens PANEL, CSF ANGIOTENSIN CONVERTING 2020-02-04 09:56:00 Andressa Givens ENZYME, CSF OLIGOCLONAL BANDING, CSF 2020-02-04 09:56:00 Kim Guevara MISCELLANEOUS REFERRAL 2020-02-04 09:56:00 Kim Guevara TEST MISCELLANEOUS REFERRAL 2020-02-04 09:56:00 Kim Guevara TEST EEG AWAKE/ASLEEP LESS THAN 2020-02-04 07:19:32 Andressa Givens 41 MIN ECG 12-LEAD 2020-02-04 04:50:41 Manan Hernández BLOOD CULTURE, AEROBIC & 2020-02-04 01:50:00 Aldo Pineda ANAEROBIC BLOOD CULTURE, AEROBIC & 2020-02-04 01:40:00 Aldo Pineda ANAEROBIC MISCELLANEOUS REFERRAL 2020-02-04 01:40:00 Manan Hernández TEST HC COMPLETE BLD COUNT 2020-02-04 01:40:00 Aldo Pineda on Alevism W/AUTO DIFF BASIC METABOLIC PANEL 2020-02-04 01:40:00 Aldo Pineda on Alevism ESTIMATED GFR 2020-02-04 01:40:00 Kim Guevara URINE [...] Hernández C-REACTIVE PROTEIN 2020-02-03 18:25:00 Manan Hernández HOMOCYSTINE, PLASMA 2020-02-03 18:25:00 Manan Hernández CORTISOL LEVEL, RANDOM 2020-02-03 18:25:00 Manan Hernández SEDIMENTATION RATE 2020-02-03 18:25:00 Manan Hernández RHEUMATOID FACTOR 2020-02-03 18:25:00 Manan Hernández THYROID STIMULATING 2020-02-03 18:25:00 Manan Hernández HORMONE T4, FREE 2020-02-03 18:25:00 Manan Hernández T3 2020-02-03 18:25:00 Manan Hernández SYPHILIS TOTAL ANTIBODY 2020-02-03 18:25:00 Manan Hernández HIV AG/AB COMBINATION 2020-02-03 18:25:00 Manan Hernández VITAMIN D 25 HYDROXY LEVEL 2020-02-03 18:25:00 Manan Hernández B. BURGDORFERI ABS TOTAL, 2020-02-03 18:25:00 Manan Hernández SERUM CT HEAD WO CONTRAST 2020-02-03 16:14:55 Manan Hernández katherine Alevism HCG QUANTITATIVE, SERUM 2020-02-03 14:27:00 Manan Hernández Tubal ligation [facility] Plan of Care Planned Activity Planned Date Details Comments Source Future Scheduled 2023-02-02 Screening for [place] Me thodist Test 00:00:00 malignant neoplasm of cervix (procedure) [code = [id number]] Encounters Start End Encounter Admission Attending Care Care Encounter Source Date/Time Date/Time Type Type Clinicians Facility Department ID 2020-03-08 2020-03-08 Outpatient TUNG CHAVO [facility] [id number] [place] 00:00:00 00:00:[address] 2020-03-07 2020-03-07 [id number] 2020-02-29 2020-02-29 Outpatient ASIF ChungSCHBINU [id number] 11:15:00 23:59:59 David Acharya 2020-02-21 2020-02-21 Outpatient [facility] [id number] [facility] 2020-02-17 2020-02-17 [facility] [id number] [facility] 2020-02-12 2020-02-16 Inpatient [facility] [id number] [place] 00:00:00 00:00:00 BLESSING [address] 2020-02-15 2020-02-15 Outpatient ASIF Chung [facility] [id number] 09:15:00 09:15:00 David Acharya 2020-02-09 2020-02-09 [facility] [id number] [facility] 2020-02-03 2020-02-08 Inpatient [place] [id number] [place] 00:00:00 00:00:00 MICHAEL Santacruz [facility] 2020-01-17 2020-01-17 [facility] [id number] [facility] 2019-12-14 2019-12-14 [facility] [id number] 10:48:00 10:48:00 t [employer] [facility] Medicine Outpati ent Clinics 2019-11-23 2019-11-23 [facility] [id number] [facility] 09:00:00 09:00:00 t [employer] [facility] Medicine Outpati ent Clinics 2019-11-23 2019-11-23 [facility] [id number] 08:05:00 08:05:00 t [facility] Medicine Outpati ent Clinics 2019-10-15 2019-10-15 [facility] [id number] 08:44:00 08:44:00 t [employer] [facility] Medicine Medicine Outpati ent Clinics 2019-09-07 2019-09-07 [facility] [id number] 11:56:00 11:56:00 t [facility] [employer] That{img} [employer] [facility] Medicine Outpati ent Clinics 2019-08-13 2019-08-13 [facility] [id number] 10:20:00 10:20:00 t [employer] [facility] Medicine Outpati ent Clinics 2019-08-12 2019-08-12 [facility] [id number] 09:49:00 09:49:00 t [employer] [facility] Medicine Outpati ent Clinics 2019-06-15 2019-06-15 [facility] [id number] 15:24:00 15:24:00 [address] [place] [address] [place] [address] [place] [address] - Drive [facility] Medicine Medicine Outpati ent Clinics 2019-06-09 2019-06-09 [facility] [id number] 08:40:00 08:40:00 t [facility] [address] Luke s - Road [facility] Medicine Outpati ent Clinics 2019-06-03 2019-06-03 [facility] [id number] 10:52:00 10:52:00 t [place] [employer] - Drive [facility] Medicine Outpati ent Clinics 2019-05-28 2019-05-28 [facility] [id number] 16:20:00 16:20:00 t [place] [employer] - Drive [facility] Medicine Outpati ent Clinics 2019-05-21 2019-05-22 Outpatient MHMISCHER MHMISCHER [id number] 14:44:00 23:59:59 00 2019-04-28 2019-04-28 [id number] 13:00:00 13:00:00 David Acharya 2019-01-01 2019-01-01 [facility] [id number] 15:32:00 15:32:00 t [place] [employer] - Drive [facility] Medicine Outpati ent Clinics 2018-12-31 2018-12-31 [facility] [id number] 09:55:00 09:55:00 t [place] [employer] - Drive [facility] Medicine Outpati ent Clinics 2018-12-30 2018-12-30 [facility] [id number] 13:25:00 13:25:00 t [place] [employer] - Drive [facility] Medicine Outpati ent Clinics 2018-12-30 2018-12-30 [facility] [id number] 08:00:00 08:00:00 t [place] [employer] - Drive [facility] Medicine Outpati ent Clinics 2018-12-29 2018-12-29 [facility] [id number] 09:42:00 09:42:00 t [employer] [facility] Outpati ent Clinics 2018-12-23 2018-12-23 Outpatient DEDE ChungSCHBINU MALISS[facility]CH[facility] [id number] 13:15:00 23:59:59 David 04 [facility] 2018-12-04 2018-12-04 [facility] [id number] 16:20:00 16:20:00 t [employer] [facility] Outpati ent Clinics 2018-11-30 2018-11-30 [facility] [id number] 10:08:00 10:08:00 t Urgent Ur[facility] 2018-11-27 2018-11-27 Outpatient DEDE ChungSCHBINU [facility]ER [id number] 10:45:00 23:59:59 David 03 [facility] 2018-11-27 2018-11-27 [facility] [id number] 13:00:00 13:00:00 t [employer] [facility] Outpati ent Clinics 2018-10-29 2018-10-29 [facility] [id number] 10:40:00 10:40:00 t [employer] [facility] Outpati ent Clinics 2018-10-16 2018-10-16 Outpatient DEDE ChungSCHBINU MALISSASCHBINU [id number] 09:00:00 23:59:59 David 02 [facility] 2018-10-02 2018-10-02 Outpatient DEDE ChungSCHBINU [facility] [id number] 15:00:00 23:59:59 David [facility] 2018-10-01 2018-10-01 Outpatient [facility]BIN[id number] 08:15:00 23:59:59 David 00 [facility] 2018-09-30 2018-09-30 [facility] [id number] 13:00:00 13:00:00 t [employer] [facility] Outpati ent Clinics 2018-08-31 2018-08-31 [facility] [id number] 11:00:00 11:00:00 t [employer] [facility] Medicine Outpati ent Clinics 2018-07-27 2018-07-27 [facility] [id number] 13:54:00 13:54:00 t [employer] [facility] Medicine Outpati ent Clinics 2018-07-23 2018-07-23 [facility] [id number] 08:53:00 08:53:00 t [employer] [facility] Medicine Outpati ent Clinics 2018-07-23 2018-07-23 [facility] [id number] 08:15:00 08:15:00 t [employer] [facility] Medicine Outpati ent Clinics 2018-06-22 2018-06-22 [facility] [id number] 10:30:00 10:30:00 [employer] [facility] Medicine Outpati ent Clinics 2018-05-04 2018-05-04 [facility] [id number] 12:00:00 12:00:00 [employer] [facility] Medicine Outpati ent Clinics 2018-04-02 2018-04-02 [facility] [id number] 09:00:00 09:00:00 [employer] [facility] Outpati ent Clinics Results Test Description Test Time Test Comments Results Result Comments Source AFB culture 2020-03-17 12:13:05 Test Item Value Reference Range Interpretation Comme nts AFB culture isolate No growth after 6 weeks of Specimen InformationSpecimen (test code = 543-9) incubation. Source: CSF (Spinal Fluid)Specimen Site: CSF (spinal fluid) Turner WorleyFungus [id number] 12:15:08 Test Item Value Reference Range Interpretation Comments Fungus culture No growth Specimen isolate (test after 4 weeks InformationSp ecimen code = 1441) of Source: CSF (Sp inal incubation. Fluid)Specimen Site: CSF (spinal fluid) Turner Worley3 in 1 [id number] 11:07:52 Test Item Value Reference Range Interpretation Comments SUPPLIER NAME (test XMED Oxygen and code = 6415) Medical SUPPLIER PHONE (test [phone] code = 6416) ORDER STATUS (test code Delivery Successful = 6417) DELIVERY NOTE (test code = 6419) REQUESTED DELIVEY DATE 02/16/2020 (test code = 6420) ITEM DESCRIPTION (test 3 in 1 Commode Qty : 1 code = 6423) ACTUAL DELIVERY DATE 02/16/2020 (test code = 6422) [facility] MethodistBasic metabolic [id number] 06:42:23 Test Item Value Reference Range Interpretation Comments Sodium (test code = 2951-2) 138 135- 148 mEq/L Potassium (test code = 2823-3) 4.1 3.5- 5.0 mEq/L Chloride (test code = 2075-0) 103 98- 112 mEq/L CO2 (test code = 2027-9) 21 24- 31 mEq/L L Anion gap (test code = 77811-8) 14@ANIO 7- 15 mEq/L BUN (test code = 3094-0) 14 mg/dL 6-20 Creatinine (test code = 2160-0) 0.81 mg/dL 0.5-0.9 Glucose (test code = 2345-7) 110 mg/dL 65-99 H Calcium (test code = 15128-9) 8.6 mg/dL 8.3-10.2 Lab Interpretation (test code = Abnormal 69251-8) [facility] MethodistEstimated [id number] 06:42:23 Test Item Value Reference Range Interpretation Comments Estimated GFR (test >=90 mL/min/1.73 m2 Caterg ory Units code = 5488) InterpretationG 1 >=90 Normal or highG2 60-89 Mildly sgcbpqivsS5s 45-59 Mildly to mode rately efspnkolmX0o 30-44 Moderately to severely decreasedG4 15-29 Severely decre asedG5 <15 Kidn ey failureThe eGFR was calculated morena dover the Chronic Kidney Disease Epidemiology Co llaboration (CKD-EPI) equat ion. Interpretation is based on recommendations of the National Kidney Foundation-Kidn ey Disease Outcomes Qualit y Initiative (NKF-KDOQI) pub lished in 2013. [facility] MethodistEMG General Dljhtie3414-64-11 13:23:11Electromyogram and NCS ReportCRITICAL ACCESS [facility]PITAL Neurological Nuyhcycsr4598Bcqw,WP11,[place],OB57965G: F : Patient: ArguetaSnow box Physician: Nicolasa Walters MDAge: 34 Test Date: 02/15/20ex: FemaleHeight: 66 inchesWeight: 220 lbsRef. M.D.: Fior Batista, MDDob: 86 History/Comments:Thepatient is a 34 YO female who was referred to the EMG lab for right arm and leg numbness and weakness. Temp-RLE: 28.2 LLE: 30.1RUE: 35.4Motor Nerve Study Right Median NerveRec Site: APB Lat (ms) Amp(mV) Area (mVms) Dist (mm) C.V. (m/s)Stim SiteWrist 3.6 10.4 30.1 Elbow 7.5 9.7 29.1 213 54.4 Motor Nerve Study Right Ulnar NerveRec Site: ADM Lat (ms) Amp (mV) Area (mVms) Dist (mm) C.V.(m/s)Stim SiteWrist 2.3 9.3 17.5 B.Elbow 4.7 8.1 19.4 140 60.0 A.Elbow 7.3 7.8 18.7 138 51.8 Motor Nerve Study Left Peroneal NerveRec Site: EDB Lat (ms) Amp (mV) Area (mVms) Dist (mm) C.V. (m/s)Stim SiteAnkle 3.8 5.3 14.1 Fib.Head 11.8 5.0 14.4 354 44.3 Pop.Fos. 13.7 4.9 14.1 80 41.7 Motor Nerve Study Right Peroneal NerveRec Site: EDB Lat (ms) Amp (mV) Area (mVms) Dist (mm) C.V. (m/s)Stim SiteAnkle 5.2 5.7 18.1 Fib.Head 13.8 5.2 17.3 355 41.4 Pop.Fos. 15.3 5.2 16.9 70 46.7 Motor Nerve Study Left Tibial NerveRec Site: AH Lat (ms) Amp (mV) Area (mVms) Dist (mm) C.V. (m/s)Stim SiteAnkle 4.4 13.8 31.1 Pop.Fos. 13.5 11.5 30.8 370 40.7 Motor Nerve Study Right Tibial NerveRec Site: AH Lat (ms) Amp (mV) Area (mVms) Dist (mm) C.V. (m/s)Stim Si teAnkle 5.1 8.6 30.7 Pop.Fos. 14.9 7.7 31.9 375 41.2 Sensory Nerve Study Right Median NerveRec Site: Wrist Pk Lat (ms) Amp (uV)Stim SiteThumb 2.8 26.0 Sensory Nerve Study Right Ulnar NerveRec Site: Wrist Pk Lat (ms) Amp (uV)Stim Bvat2me dig 2.5 21.0 Sensory Nerve Study Right Radial NerveRec Site: Wrist Pk Lat (ms) Amp (uV)Stim SiteIndex 2.1 24.0 Sensory Nerve Study Left Sural NerveRec Site: Ankle Pk Lat (ms) Amp (uV)Stim Sitemid calf 5.0 12.3 Sensory Nerve Study Right Sural NerveRec Site: Ankle Pk Lat (ms) Amp (uV)Stim Sitemid calf 5.3 5.2 Sensory Nerve Study Right Superperon NerveRec Site: Pk Lat (ms) Amp (uV)Stim Site 4.3 7.3 F-Wave Study Right Median NerveRec Site: APB LatencyStim Site: Wrist ms F wave 27.83F-M NRF-Wave Study Right Ulnar NerveRec Site: ADM LatencyStim Site: Wrist ms F wave 27.33F-M NRF-Wave Study Left Peroneal NerveRec Site: EDB LatencyStim Site: Ankle ms F wave 49.50F-M NRF- Wave Study Right Peroneal NerveRec Site: EDB LatencyStim Site: Ankle ms F wave NRF-M NRF-Wave Study Left Tibial NerveRec Site: AH LatencyStim Site: Ankle ms F wave 50.17F-M NRF-Wave Study Right Tibial NerveRec Site: AH LatencyStim Site: Ankle ms F wave 55.67F-M NRH Reflex Study Left Tibial NerveRec Site: Soleus LatencyStim Site: Pop.Fos. ms M wave 6.83H wave 31.00 H Reflex Study Right Tibial NerveRec Site: Soleus LatencyStim Site: Pop.Fos. ms M wave 7.33H wave 3 3.83 EMG StudySignificantly limited due to patient's poor-none efforts in muscle activation. NameIns Act Fibs PSW Fascics Polyph MU Amp MU Dur Config Pattern RecruitR. Tibialis Ant. norm none none none Notes: POOR EFFORTSR. Gastroc.Med.H. norm none none None Notes: NO EFFORTSR. Vastus Med. norm none none none Notes: NO EFFORTSR. Dors.Int.1 norm none none none none norm norm norm norm normR. Biceps Brachi. norm none none none none norm norm norm norm normR. Triceps norm none none none none norm norm norm norm normR. Pronator Ter. norm none none none Notes: NO EFFORTSR. Deltoid norm none none none Notes: POOR EFFORTSR. Gluteus Med. norm none none none none norm norm norm norm normR. Peroneus Ln. norm none none none Notes: NO EFFORTS Conclusion:There is no electrophysiologic evidence of neuropathy or myopathy. Right Median NerveRight Ulnar Nerve Left Peroneal Nerve Right Peroneal Nerve Left Tibial Nerve Right Tibial NerveRight Median Nerve Right Ulnar Nerve Right Radial Nerve Left Sural Nerve Right Sural Nerve Right Superperon Nerve Right Median Nerve Right Ulnar Nerve Left Peroneal Nerve Right Peroneal Nerve Left Tibial Nerve Right Tibial Nerve Left Tibial Nerve Right Tibial NervePayson MethodistVisual evoked potentials 2020-02-15 10:07:24 PATTERN REVERSAL VISUAL EVOKED POTENTIAL REPORT Patient Name: Snow Argueta Date of : 1985 Gender: female Date of Procedure: 02/14/2020 IndicationVision loss FindingsPattern reversal visual evoked potentials were obtained following independent left and right full field monocularstimulation. QctA396 absolute latencies were 99.8 msec and 102.6 msec following independent left andright eye stimulation. All interpeak latencies and waveform morphologies were normal. ImpressionThisis a normal study. ICD10 Code/Diagnosis: P71Imcbuvl MethodistCBC with platelet and rlhsbievicgy0465-66-55 05:36:22 Test Item Value Reference Range Interpretation Comments WBC (test code = 91253-8) 8.53 4.50- 11.00 k/uL RBC (test code = 79488-1) 4.05 m/uL 4.2-5.5 L HGB (test code = 718-7) 12.0 g/dL 12-16 HCT (test code = 4544-3) 36.1 % 37-47 L MCV (test code = 787-2) 89.1 fL 82-100 MCH (test code = 785-6) 29.6 pg 27-34 MCHC (test code = 786-4) 33.2 g/dL 31-37 RDW - SD (test code = 40.5 fL 37-55 49342-0) MPV (test code = 20888-8) 11.9 fL 8.8-13.2 Platelet count (test code 171 150- 400 k/uL = 99379-3) Nucleated RBC (test code 0.00 /100 WBC = 32944-3) Neutrophils (test code = 64.6 % 39-69 17313-2) Lymphocytes (test code = 26.0 % 25-45 14794-4) Monocytes (test code = 6.1 % 0-10 24501-9) Eosinophils (test code = 1.8 % 0-5 67096-8) Basophils (test code = 0.4 % 0-1 55144-5) Immature granulocytes 1.1 % 0-1 H "Immat ure (test code = 15574-0) granul ocytes" (promyelocytes, myelocytes, metamyelocytes) Lab Interpretation (test Abnormal code = 39770-8) [facility] Lumbar Spine W Wo Jkdxrnfr1441-92-95 11:16:59Hm Interface, Radiology Results 02/13/2020 11:20 AM CDTEXAMINATION: MRI LUMBAR SPINE W WOCONTRASTCLINICAL HISTORY: New lower extremity weaknessCOMPARISON: NoneTECHNIQUE: Multiplanar multisequence nonenhanced and contrast enhanced MRI examination was performed of the lumbar spine.FINDINGS:There are 5 non-rib bearing lumbar type vertebrae, the lowest labeled L5 in this report as identifiedby the lumbosacral angle and iliolumbar ligaments. The alignment of the lumbar spine is within normal limits. No subluxation. No abnormal marrow edema or enhancement identified. No suspicious osseous lesions. No degenerative marrow signal abnormality is present. Vertebral body and intervertebral disc h eights are preserved.Conus medullaris terminates appropriately at the level level. No abnormal T2 hyperintense intramedullary signal or enhancement identified. The cauda equina nerve roots are symmetric and normal in appearance. No abnormal thickening, clumping or enhancement identified.Evaluation of the visualized soft tissues demonstrates no mass, adenopathy or aneurysm. Axial images through the disc spaces demonstrate the following:L1-L2: No significant posterior disc disease, spinal canal, subarticular zone, or neural foraminal stenosis.L2-L3: No significant posterior disc disease, spinal canal, subarticular zone, or neural foraminal stenosis.L3-L4: No significant posterior disc disease, spinal canal, subarticular zone, or neural foraminal stenosis. Mild facet arthrosis is noted bilaterally.L4-L5: Mild right neural foraminal stenosis secondary to foraminal disc protrusion measuring 3 x 9 mm in axial dimensions. There is questionable contact of the exiting L4 nerve root on the right, image 11 of series 6. No significant posterior disc disease, spinal canal, subarticular zone, or left neuralforaminal stenosis. Mild to moderate facet arthrosis is noted bilaterally.L5-S1: No significant posterior disc disease, spinal canal, subarticular zone, or neural foraminal stenosis. Moderate facet arthrosis is noted bilaterally.Evaluation of other visualized levels demonstrates no significant posterior disc disease, spinal canal, subarticular zone, or neural foraminal stenosis.IMPRESSION: Mild rightneural foraminal stenosis at L4-L5 secondary to foraminal disc protrusion, including questionable contact of the exiting L4 nerve root on the right. Recommend correlation to radiculopathy distribution.[facility]-[id number] MethodMesilla Valley HospitalI Brain Venogram 2020-02-13 09:57:03Hm Interface, Radiology Results 02/13/2020 10:00 AM CDTEXAM: MRI BRAIN VENOGRAMCLINICAL HISTORY: Headache chronic normal neuro examTECHNIQUE: Head MR venogram using 2D vrrw-ht-jvbmum technique with multi-planar MIP and 3D reconstruction.COMPARISON: MRI brain, 02/03/2020FINDINGS:The superior sagittal sinus, transverse and sigmoid sinuses as well as the straight sinus are all patent with no evidence of dural venous sinus thrombosis. The visualized internal cerebral veins, basal veins of Harmeet and the vein of [place]illy are all patent. The major cortical veins are patent.IMPRESSION:1.Unremarkable head MR venogram with no definite evidence of dural sinus venous thrombosis.[id number] MethodistCytomegalovirus by PCR 2020-02-11 15:29:57 Test Item Value Reference Range Interpretation Comments Cytomegalovirus by PCR Not-Detected Not-Detected (test code = 5000-5) IU/mL Cytomegalovirus by PCR See link below Delta e Number: (test code = 1089) for PDF Lab [id number] Report Turner MethodistAngiotensin converting enzyme, [id number] 19:56:01 Test Item Value Reference Range Interpretation Comments Angiotensin 0.6 U/L 0-2.5 This test was d eveloped converting enzyme, and its p erformance CSF (test code = characteris tics 03524-1) determined by A [facility] [employer]. T he U.S. Food and Drug Administration has not approved or kole ared this test; however, FDA clearance or ap proval is not currently r equired for clinical us e. The results are not intended to be used as t he sole means for clini conrad diagnosis or pa tient management decisions.Perfo rmed By: BENITA [facility] [address] [place] [id number] aboratory Director: Nai Rushing MD [place] AlevismWest Nile virus antibody panel, [id number] 17:17:47 Test Item Value Reference Range Interpretation Comments West Nile IgG, CSF 0.09 <=1.29 IV INTERPRET YOLANDA INFORMATION: (test code = [place] [address]-0) DARSHANA, CSF 1.2 9 IV or less [...] Nile virus-specific IgG in CSF samples in [facility] h there is a clinical suspic ion of West Nile Virus infe ction. This test should not be used solely for heladio titative purposes, nor s hould the results be used without correlation to clinical history or othe r data. Because other m embers of the Flaviviridae fa priscila, such as [place] encep halitis virus, show extensive cross-reactivit y [...] developed and c haracteristics determined by A [facility]. S ee Compliance Statement B: [employer]/ West Nile IgM, CSF 0.02 <=0.89 IV INTERPRET YOLANDA INFORMATION: (test code = [place] [address]-8) DARSHANA, CSF0.89 IV or less ...... Negative [...] of the Flaviviridae fa priscila, such as [place] encep halitis virus, show extensive cross-reactivit y [...] developed and c haracteristics determined by A [facility]. S ee Compliance Statement B: [employer]/[facility] erformed By: [facility] [address] [place], [place] [address]Lazyecyamn Director: Nai Rushing MD [place] MethodistMiscellaneous referral [id number] 08:48:03 Test Item Value Reference Range Interpretation Comments [facility] test name JCV QUANT PCR (test code = 2566) [facility] test result see note JCV qPCR (C SF) TEST (test code = RESULT UNIT 1730) REF RA NGE JCV qPCR Not De tected copies/mL Not Detected Assay Range: 72 copies/mL to 1.00E+08 copies/mL The limit of quantitation (L OQ) is 72 copies/mL. BETH v irus DNA detected below the LOQ will be reporte d as Detected:<72 co pies/mL. This test was d eveloped and its perform ance characteristics determined by [facility]. It olson s not been cleared or approved by the U.S. Marni d and Drug Administra tion. Results should be used in conjunction with clinical findin gs, and should not form the sole basis for a socorro gnosis or treatment decis ion. Performed at: [facility] - [address] [facility] culture, aerobic & alxjuclit2380-61-04 05:33:06 Test Item Value Reference Range Interpretation Comments Blood culture No growth Specimen isolate (test after 5 days InformationSpe cimen code = 600-7) of Source: BloodS pecimen incubation. Site: [facility], right [place] MethodistLyme disease reflexive panel, [id number] 23:48:04 Test Item Value Reference Range Interpretation Comments B. burgdorferi Abs 0.08 <=0.99 When the Borrelia DARSHANA, CSF (test code burgdo rferi Abs, Total by = 51575-2) DARSHANA result is negative, no further test [...] BENITA stone. 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 Location: Left basilic Device Type:Non-valved Catheter Lumen(s): Single lumen Catheter size: 3 Fr Catheter to vein ratio: 24%MidLine Characteristics: Catheter Brand: SL PROVENA MIDLINE Internal Catheter Length (cm): 12 TotalCatheter Length (cm): 12 Catheter Lot Number: [id number] Catheter Expiration Date: 2Procedure details: Landmarks identified: [...] Patient tolerance of procedure: Tolerated well, no immediatecomplicationsPayson MethodistVDRL, CSF zyjmvx0314-45-29 02:23:37 Test Item Value Reference Range Interpretation Comments VDRL, CSF screen (test code = Non-reactive Non-reactive 3046) [facility] duplex venous upper svncyrlqz3747-23-30 22:03:00Interface, Radiology Results In - 02/07/2020 10:03 PM CDT Vascular Ultrasound Laboratory Upper Extremity Venous [address] [place] [address] Pat.Name: SNOW ARGUETA Namrata.ID: [id number] .Date: 02/07/2020 Refer.MD: MICHAEL MADDOX MD Exam Time: 4:33:00 PM Study Type:UE Venous Height: 66in Weight: 220lb BSA: 2.08 m2 Age: 7 1985,34Y Sex: FEMALE Sonogrphr: Ryan Torres, RVT Pat. Stat.:Inpatient Room: YQ28-7846-X Tape Vol: , [facility] - 4: 26810 Echo Event ID:[id number] Order ID: [id number] Reason for Study:Right arm pain and swelling. [...] FINDINGS:-- Signed 02/07/2020 10:03 Yessi Obrien MD, [facility] MethodistOligoclonal banding, [id number] 15:44:13 Test Item Value Reference Range Interpretation Comments Protein, CSF (test code 24 mg/dL = 2880-3) Prealbumin, CSF (%) 6.4 % 3.5-11.1 (test code = 31717-5) Albumin, CSF (test code 66.1 % 40.8-66.2 = 36683-1) Alpha 1, CSF (%) (test 2.4 % 2.3-6.4 code = 73883-7) Alpha 2, CSF (%) (test 6.1 % 6.1-12.6 code = 53042-2) Beta, CSF (%) (test 13.1 % 11.7-24.1 code = 03969-4) Gamma, CSF (%) (test 5.9 % 5.6-12.2 code = 54980-7) CSF extended See Comment An essentially interpretation (test normal CSF protein code = 11669-5) study. No oligoclonal ban ds seen. CSF interpretation See Comment Miguel Boyd, PhD; (test code = 1163) MD Turner Tafoya MethodistEnterovirus by [id number] 15:38:15 Test Item Value Reference Range Interpretation Comments Enterovirus PCR (test See link below Not-Detected Case Number: code = 94737-4) for PDF Lab [id number] Report Turner MethodistEpstein Bates Virus (EBV) by [id number] 15:13:17 Test Item Value Reference Range Interpretation Comments Albert Bates Not-Detected Not-Detected virus, PCR (test copies/mL code = 5005-4) Albert Bates See link below Case Number: virus, PCR (test for PDF Lab [id number] code = 1340) Report Turner MethodistVaricella zoster by [id number] 14:54:16 Test Item Value Reference Range Interpretation Comments VZV result (test Not-Detected Not-Detected code = 53330-9) copies/mL Varicella zoster, See link below Case Num rupal: pcr (test code = for PDF Lab [id number] 2 124) Report Turner WhatleyistCSF [id number] 14:08:32 Test Item Value Reference Range Interpretation Comments CSF culture No growth Specimen isolate (test after 3 days. InformationSp ecimen code = 606-4) Source: CSF (S naseem Fluid)Specimen Site: CSF (spinal fluid) [place] MethodistFlow cytometry hlwwbpxbyz9830-94-40 09:52:18 Test Item Value Reference Range Interpretation Comments Case number (test code = [id number]) Flow cytometry evaluation See link below for (test code = 5929039) PDF Lab Report Turner Irving NEED PHYS SKILL,DX OR [id number] 09:18:07Javier Kolb RN 02/07/2020 9:21 AMMidline Date/Time: [...] to vein ratio: 41%MidLine Characteristics: Catheter Brand: ANGI[employer] External Catheter Length (cm): 0 Internal Catheter Length (cm): 12 Total Catheter Length (cm): 12 Catheter Lot Number: [id number] Catheter Expiration Date: 1Procedure details: Landmarks identified: [...] tolerance of procedure: Tolerated well, no immediate complicationsPayson ChacortaistB. burgdorferi Abs total, wlyij8663-19-30 08:01:42 Test Item Value Reference Range Interpretation [...] tibody to B. burgdorferi detected.Perfor med By: [facility] [address] [place], [place] [address]L aboratory Director: Nai Rushing MD [place] MethodistEC 12 oifr5490-06-78 12:49:19 Test Item Value Reference Range Interpretation Comments Ventricular rate (test 78 code = 253) Atrial rate (test code 78 = 255) MD interval (test code 144 = 266) QRSD [...] of 04-FEB-2020 04:50,-No significant change was found- [place] MethodistXR Chest 1 Vw Vtdbfnfp4258-16-59 22:09:52Hm Interface, Radiology Results Incoming - 02/05/2020 10:12 PM CDTEXAMINATION: XR CHEST 1 VW PORTABLECLINICAL HISTORY: 34 years Female chest pressure on exertionCOMPARISON: None.IMPRESSION:No acute cardiopulmonary disease.FINDINGS:The cardiomediastinal silhouette, lungs, and regional skeletal structures are within normal limits for age. [facility]-[id number] MethodistHerpes simplex virus by [id number] 20:12:15 Test Item Value Reference Range Interpretation Comments Herpes virus, PCR Not-Detected Not-Detected (test code = 17983-5) Herpes virus, PCR See link below Case Num rupal: (test code = 1523) for PDF Lab [id number] Report [place] MethodistCytology (non-gynecological) ohwozri1149-12-46 18:15:16 Test Item Value Reference Range Interpretation Comments Case number (test code = [id number]) Cytology See link below for (non-gynecological) PDF Lab Report report (test code = 1178) Result status (test code This is Final Report = [id number]) for [id number] [place] MethodistCryptococcal antigen, [id number] 17:47:33 Test Item Value Reference Interpretation Comments Range Cryptococcal Ag Negative - No Specimen (test code = Cryptococcus InformationSpec imen 9820-2) antigen detected. Source: CS F (Spinal Fluid)Specimen Site: CSF (spinal flu id) Turner WhatleyDhiouosnwEIQ0429-85-50 13:52:17 Test Item Value Reference Range Interpretation Comments ELMER screen (test Negative Negative Test perfor med using NOVA code = 550) Lite DAPI ELMER k it (Indirect Immunofluoresce nce Assay) for Anti-Nuclea r Antibody on [employer] QUANTA-Ly ser 160 Analyzer. [facility] count with jtfhrskerhcy2976-30-92 13:21:52 Test Item Value Reference Range Interpretation Comments Color, CSF (test code = Colorless 10159-5) Appearance, CSF (test Clear Correc leon result code = 32301-6) called to Maximiliano Mallory/Stefano T18 02/04/2020 13: 21 Corrected resul t; previously repo rted as Slightly haz y on 02/04/2020 at 1 1:19 by DH2 RBC, CSF (test code = 33 0- 1 /CMM H 32792-1) WBC, CSF (test code = 1 0- 5 /CMM 08713-2) CSF mononuclear cell 1/CMM (test code = 65599-7) Lab Interpretation (test Abnormal code = 30984-4) Turner Toscano synthesis rate [id number] 13:09:21 Test Item Value Reference Range Interpretation Comments IgG albumin ratio, SEE COMMENT 0.00-0.23 Footnote- -------- CSF (test code = 1588) IgG index, CSF SEE COMMENT 0.01-0.63 Footnote----- ---- (test code = 18614-2) IgG synthetic rate SEE COMMENT -9.90 - 3.30 mg-day Fo otnote--------- (test code = 82885-4) Q-albumin ratio, SEE COMMENT 2.00-7.50 Footnote--- ------ CSF (test code = 1756-6) IgG, CSF (test code SEE COMMENT 1-3 Footnote --------- = 2464-6) Albumin, CSF (test SEE COMMENT 10-30 Footnote- -------- code = 79274-5) IgG (test code = SEE COMMENT 700-1600 Footnote--- ------Cor 2465-3) rected result; previously repo rted as 852 on 02/03 at 12:58 by I/A TX Albumin, S (test SEE COMMENT 2639-1851 Footnote--- ------DUP code = 10240-1) LICATE ORDER.Corrected result; previou sly reported as 370 0.0 on 02/04/2020 a t 12:58 by I/AUT Turner MethodistGram [id number] 12:47:25 Test Item Value Reference Range Interpretation Comments Gram stain No WBC's or Specimen isolate (test organisms seen. Information Specimen code = 1469) Source: CSF (Sp inal Fluid)Specimen Site: CSF (spinal fluid) Turner WorleyGlucose level, [id number] 11:17:32 Test Item Value Reference Range Interpretation Comments Glucose, CSF (test code = 2342-4) 90 mg/dL 40-70 H Lab Interpretation (test code = Abnormal 31065-7) Turner Diaz (routine)2020-02-04 10:51:25EEG AWAKE AND ASLEEP Date of Service: 02/04/2020 Awake Recording: The occipital dominant rhythm is 10-11 Hz. 18-22 Hz activity is present in all regions. Sleep Recording: No epileptiform activity was recorded. Hyperventilation: No abnormality elicited. Photic Stimulation: No abnormality elicited. Impression The background activity is within the range of normal variation. No lateralized or epileptiform activity was recorded. ICD-10 Code: L385Trmkpwv MethodistIR Lumbar Puncture by Radiology 2020-02-04 10:23:15Hm [...] lumbar puncture.Opening pressure was 21 cm of water.[facility]-[id number] MethodistCOVID-19 qualitative PCR 2020-02-04 05:24:14 Test Item Value Reference Range Interpretation Comments Interpretation (test Negative results do code = 7864387) not preclude 2019-nCoV infection and should not be used as the sole basis for treatment or other patient management decisions. Negative results must be combined with clinical observations, patient history, and epidemiological information. COVID-19 qualitative Not-Detected Not-Detected PCR result (test code = 96882-9) COVID-19 qualitative See link below for C ase Number: PCR (test code = PDF Lab Report [id number]) [place] MethodistUrinalysis screen and microscopy, with reflex to culture 2020-02-04 05:13:36 Test Item Value Reference Range Interpretation Comments Specimen site (test code = Clean catch 2462298) Color, UA (test code = 5778-6) Yellow Appearance, UA (test code = Clear 5767-9) Specific gravity, UA (test code = 1.036 1.001-1.035 H 5811-5) pH, UA (test code = 5803-2) 5.0 5.0-8.5 Protein, UA (test code = 33006-9) 1+ Negative A Glucose, UA (test code = 18634-6) 1+ Negative A Ketones, UA (test code = 2514-8) Negative Negative Bilirubin, UA (test code = Negative Negative 5770-3) Blood, UA (test code = 5794-3) Negative Negative Nitrite, UA (test code = 5802-4) Negative Negative Urobilinogen, UA (test code = <2.0 <2.0 88586-5) Leukocyte esterase, UA (test code Negative Negative = 5799-2) Epithelial cells, UA (test code = 2 /HPF 5787-7) WBC, UA (test code = 5821-4) <1 0- 4 /HPF RBC, UA (test code = 49560-3) None seen 0- 5 /HPF Bacteria, UA (test code = None seen None seen 00513-0) Yeast, UA (test code = 63916-1) Few A Yeast with pseudohyphae, UA (test None seen code = 67986-3) Hyaline casts, UA (test code = 4 /LPF 5796-8) Lab Interpretation (test code = Abnormal 79716-1) [facility] drugs of abuse [id number] 03:10:50 Test Item Value Reference Interpretation Comments Range Amphetamine screen, Negative urine (test code = 3349-8) Barbiturate screen, Negative urine (test code = 3377-9) Benzodiazepine Negative screen, urine (test code = 3390-2) Cocaine screen, Negative urine (test code = 3397-7) Methadone Negative metabolite (EDDP), urine (test code = 30173-8) Opiates screen, Positive A urine (test code = 7079-4) Oxycodone screen, Negative urine (test code = 44259-1) Phencyclidine Negative screen, urine (test code = 1306-2) Tricyclic screen, Negative urine (test code = 93868-7) Cannabinoid screen, Negative Drug scr een minimum [...] ired. Lab Interpretation Abnormal (test code = 74120-3) [place] AlevismUrine [id number] 02:50:08 Test Item Value Reference Range Interpretation Comments Urine culture (test SEE COMMENT Bacteriu kieran screen code = 7778209) negative. [facility] Thoracic Spine W [id number] 22:38:25Hm Interface, Radiology Results 02/03/2020 10:41 PM [...] disc protrusion at T8-T9 with no stenosis.[id number] Brain & Orbit W Wo [id number] 22:36:27Hm Interface, Radiology Results 02/03/2020 10:39 PM [...] are preserved.IMPRESSION:Unremarkable MRI of the brain and orbits.[facility]-[id number] [facility] Cervical Spine W [id number] 22:33:20Hm Interface, Radiology Results 02/03/2020 10:36 PM [...] are unremarkable.IMPRESSION:No keagan dence of cervical cord demyelination.[facility]-[id number] MethodistVitamin D 25 hydroxy [id number] 20:37:03 Test Item Value Reference Range Interpretation Comments Vitamin D, 48.7 ng/mL 30-150 This assay repo rts the 25-hydroxy (test sum of 25-h ydroxy code = 1989-3) vitamin D3 an d 25-hydroxy gokul min [...] alfredito contact lab for alternative met hods. [facility] MethodistSyphilis total [id number] 20:32:43 Test Item Value Reference Range Interpretation Comments Syphilis total Non-reactive Non-reactive No serologica l antibody (test code evidence of syphilis = 6194) infection. [place] MethodginetteHIV Ag/Ab [id number] 20:28:37 Test Item Value Reference Range Interpretation Comments HIV Ag/Ab combination (test code Non-reactive Non-reactive = 5299) [facility] MethodistVitamin B12 [id number] 19:35:13 Test Item Value Reference Range Interpretation Comments Vitamin B12 (test 541 pg/mL 211-946 Significan t overlap code = 2132-9) exists betwee n normal and deficiency states.However, most patients with deficiencies wi ll have Serum B12 <2 00 pg/mL. [facility] MethodistFolate [id number] 19:35:13 Test Item Value Reference Range Interpretation Comments Folate (test code = 2284-8) 8.0 ng/mL 4.8-24.2 [place] MethodistSedimentation [id number] 19:34:55 Test Item Value Reference Range Interpretation Comments Sedimentation rate (test code = 7 0- 20 mm/hr 68540-0) [facility] MethodistT4, [id number] 19:25:51 Test Item Value Reference Range Interpretation Comments T4, free (test code = 3024-7) 1.0 ng/dL 0.9-1.7 [facility] [id number] 19:25:51 Test Item Value Reference Range Interpretation Comments T3 (test code = 3053-6) 70 ng/dL 80-200 L Lab Interpretation (test code = Abnormal 62703-6) [place] AlevismCortisol level, [id number] 19:25:00 Test Item Value Reference Range Interpretation Comments Cortisol, random 2 ug/dL Reference R anges are not (test code = 2143-6) establi shed for non-timed Cortisol levels .Reference Range for Timed Cortisol: 6 - 10 AM 6 - 18 ug/dl 4 - 8 PM 3 - 11 ug/ dl [facility] MethodistThyroid stimulating [id number] 19:25:00 Test Item Value Reference Range Interpretation Comments TSH (test code = 3016-3) 1.12 0.27- 4.20 uIU/mL [facility] MethodistComprehensive metabolic [id number] 19:24:36 Test Item Value Reference Range Interpretation Comments Sodium (test code = 140 135- 148 mEq/L 2951-2) Potassium (test code = 3.8 3.5- 5.0 mEq/L 2823-3) Chloride (test code = 104 98- 112 mEq/L 2074-0) CO2 (test code = 2027-9) 18 24- 31 mEq/L L Anion gap (test code = 18@ANIO 7- 15 mEq/L H 79829-1) BUN (test code = 3094-0) 16 mg/dL 6-20 Creatinine (test code = 0.62 mg/dL 0.5-0.9 0-0) Glucose (test code = 137 mg/dL 65-99 H 2345-7) Calcium (test code = 9.0 mg/dL 8.3-10.2 96166-9) Protein (test code = 7.2 g/dL 6.3-8.3 -[place] n 2885-2) 4.6-7.0 g/dL1 week 4.4-7 .6 g/dL7 months-1y ear 5.1-7 .3 g/dL1-2 years 5.6-7 .5 g/dL>3 years 6.0-8 .0 g/pU43-900 6.3-8 .3 g/dL Albumin (test code = 3.9 g/dL 3.5-5 175-7) A/G ratio (test code = 1.2 0.7-3.8 1759-0) Alkaline phosphatase 57 U/L 35-104 (test code = 6768-6) AST (test code = 1920-8) 15 U/L 10-35 ALT (test code = 1742-6) 25 U/L 5-50 Total bilirubin (test 0.3 mg/dL 0-1.2 code = 1974-) Lab Interpretation (test Abnormal code = 51691-5) [facility] MethodistC-reactive [id number] 19:21:52 Test Item Value Reference Range Interpretation Comments CRP (test code = 1987-) <0.30 0-0.5 [facility] MethodisthCG quantitative, [id number] 19:20:00 Test Item Value Reference Range Interpretation Comments hCG quantitative, <1 0- 5 mIU/mL Reference range for HCG serum (test code = Quant ashutosh lies to males and 86512-8) non-fem ales.Post Menopausal 0.0 - 8.1 mIU/mL [facility] MethodistRheumatoid [id number] 19:14:45 Test Item Value Reference Range Interpretation Comments Rheumatoid factor (test code = 61013-0) <10 0- 13 IU/mL [place] MethodistHomocystine, [id number] 19:14:45 Test Item Value Reference Range Interpretation Comments Homocysteine (test 6.4 umol/L 0-15 The risk for coronary code = 39645-1) vascular dis ease increases progressively w ith homocysteine concentration. A 3.4 times greater r isk is associated with a homocysteine concentration o f greater than 15.8 umol/L as jt red to a concentration below 14.1 umol/L. [facility] MethodistCT Head Wo [id number] 16:17:18Hm Interface, Radiology Results Incoming - 02/03/2020 4:20 PM CDTEXAM: CT HEAD [...] are intact.IMPRESSION:No CT evidence for acute intracranial abnormality.[id number] Alevism
[2020-03-20] MEDS ORDERED: PROMETHAZINE INJ 25 MG/ML AMP ONE (07:40)
[2020-03-20] MEDS ORDERED: MEPERIDINE HCL 25 MG/ML SYR ONE (07:41)
[2020-03-20] MEDS ORDERED: NA CHLORIDE 0.9% 500 ML ONE (07:41)
[2020-03-20 07:56] LABS: Absolute Lymphocytes (CBC) 1.8 K/uL (0.7-4.9); Basophils % 0.3 % (0-1.3); Hematocrit 39.7 % (36.0-45.0); Lymphocytes % 20.6 % (15.3-44.8); MPV 10.2 fL (7.6-11.3); RBC Red Blood Cell Count 4.52 M/uL (3.86-4.86)
[2020-03-20 08:16] LABS: ALT/SGPT 47 U/L (12-78); AST/SGOT 26 U/L (15-37); Albumin 3.7 g/dL (3.4-5.0); Alkaline Phosphatase 60 U/L (45-117); BUN Blood Urea Nitrogen 13 mg/dL (7-18); Bicarbonate 26 mmol/L (21-32); Bilirubin Direct < 0.1 mg/dL (0-0.2); Bilirubin Total 0.5 mg/dL (0.2-1.0); Glucose Level 108 mg/dL (74-106); Lipase 113 U/L (73-393); Potassium 4.1 mmol/L (3.5-5.1); Sodium Level 138 mmol/L (136-145)
--- NOTE | 2020-03-20 08:46 | RAD REPORT ---
EXAM DESCRIPTION: CT - Abdomen Pelvis W Contrast - 03/20/2020 8:29 am CLINICAL HISTORY: ABD PAIN COMPARISON: Abdomen Pelvis W Contrast dated 04/08/2016; Chest For Pe Angio dated 02/12/2020 TECHNIQUE: Biphasic, helical CT imaging of the abdomen and pelvis was performed following 100 ml non -ionic IV contrast. No oral contrast administered. All CT scans are performed using dose optimization technique as appropriate and may include automated exposure control or mA/KV adjustment according to patient size. FINDINGS: No suspicious findings in the lung bases. Normal size liver shows mild fatty infiltration pattern with no focal lesion. No portal vein abnormal ity. Spleen and pancreas show no suspicious findings. Cholecystectomy clips are present. No biliary t ree abnormality. Symmetric renal function is seen with no hydronephrosis or suspicious renal mass. No pyelonephritis o r acute parenchymal process. A small sub centimeter cyst is present anterior lower pole left kidney. No adrenal abnormalities. Partially contracted urinary bladder shows no gross abnormality. Bulky uterus is seen with some heter ogeneity of the myometrium. Patient likely has 1 or more small fibroids. Uterus is not clearly differ ent from 2016 and the uterine finding is not of acute clinical significance. Left ovary contains a 14 millimeter cyst or follicle. No suspicious ovarian or adnexal process. No dilated bowel loops or bowel wall thickening. Appendectomy clips are present. No acute GI process evident. Phelan of the proximal stomach are accentuated due to absence of intraluminal content. Appear ance is not grossly different from 2016. No free air, free fluid or inflammatory stranding. No herni a, mass or bulky lymphadenopathy. No suspicious bony findings. IMPRESSION: Contrast enhanced CT abdomen and pelvis showing no acute or emergent finding. Phelan of the proximal stomach appears thickened. This is believed to be artifact of lack of intralumi nal content. True gastric wall abnormality is unlikely. Mild fatty infiltration of a normal size liver. No focal liver lesion. No acute pancreatic process.
[2020-03-20] MEDS ORDERED: FAMOTIDINE 20 MG/2 ML VIAL IV ONE (09:13)
[2020-03-20] MEDS ORDERED: MAGNES/ALUMIN/SIMET 30ML UCUP ONE (09:15)
--- NOTE | 2020-03-20 09:19 | EDPHYS ---
Physician Documentation [facility] Name: Snow Argueta Age: 34 yrs Sex: Female : 1985 Arrival Date: 03/20/2020 Time: 06:48 Bed 6 Private MD: ED Physician Matthew Ramirez HPI: 03/20 07:48 This 34 yrs old Female presents to ER via Ambulatory with complaints of rn Abdominal Pain. 07:48 The patient presents with abdominal pain in the epigastric area. Onset: The rn symptoms/episode began/occurred yesterday. The symptoms radiate to back. Associated signs and symptoms: Pertinent positives: nausea, Pertinent negatives: blood in stools, constipation, diarrhea, dysuria, fever, shortness of breath. The symptoms are described as achy, crampy, sharp. Modifying factors: The symptoms are alleviated by nothing, the symptoms are aggravated by touching the area. Severity of pain: At its worst the pain was moderate in the emergency department the pain is unchanged. The patient has experienced a previous episode. The patient has been recently seen by a physician:. Reports prolonged admission recently at [facility], told might have early MS, given a lot of steroids, no current medication other than antacid, reports pain similar to previous pancreatitis in past. + nausea, no vomiting. No blood in stool. Has had gallbladder and appendix removed. . 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 - Social history:: Smoking status: Patient denies any tobacco usage or history of. - Family history:: not pertinent. - Hospitalizations: : Patient was recently seen at. ROS: 07:48 Constitutional: Negative for fever, chills, and weight loss, Eyes: Negative for injury, rn pain, redness, and discharge, Neck: Negative for injury, pain, and swelling, Cardiovascular: Negative for chest pain, palpitations, and edema, Respiratory: Negative for shortness of breath, cough, wheezing, and pleuritic chest pain, Abdomen/GI: + abd pain, + nausea Back: + mid back pain MS/Extremity: Negative for injury and deformity, Skin: Negative for injury, rash, and discoloration, Neuro: Negative for headache, weakness, numbness, tingling, and seizure. Exam: 07:48 Constitutional: This is a well developed, well nourished patient who is awake, alert, rn and in no acute distress. Head/Face: Normocephalic, atraumatic. Cardiovascular: Regular rate and rhythm. No pulse deficits. Respiratory: No increased work of breathing, no retractions or nasal flaring. Abdomen/GI: soft, + epigastric tenderness, no rebound, no peritoneal signs Skin: Warm, dry MS/ Extremity: Pulses equal, no cyanosis. Neurovascular intact. Full, normal range of motion. Equal circumference. Neuro: Awake and alert, GCS 15 Vital Signs: 07:01 BP 117 / 81; Pulse 78; Resp 15; Temp 97.2(TE); Pulse Ox 97% on R/A; Weight 99.79 kg; ss Height 5 ft. 6 in. (167.64 cm); Pain 10/10; 08:00 BP 120 / 81; Pulse 72; Resp 16; Pulse Ox 98% on R/A; sv 09:31 BP 114 / 71; Pulse 65; Resp 16; Pulse Ox 100% ; sv 07:01 Body Mass Index 35.51 (99.79 kg, 167.64 cm) ss MDM: 07:12 Patient medically screened. rn 09:16 Differential diagnosis: gastritis, gastroesophageal reflux disease, non-specific abd rn pain, pancreatitis, Peptic Ulcer Disease. Data reviewed: vital signs, nurses notes, lab test result(s), radiologic studies, CT scan, and as a result, I will discharge patient. Counseling: I had a detailed discussion with the patient and/or guardian regarding: the historical points, exam findings, and any diagnostic results supporting the discharge/admit diagnosis, lab results, radiology results, the need for outpatient follow up, to return to the emergency department if symptoms worsen or persist or if there are any questions or concerns that arise at home. Response to treatment: the patient's symptoms have markedly improved after treatment, and as a result, I will discharge patient. Special discussion: Based on the patient's Hx, exam, and Dx evaluation, there is no indication for emergent surgery or inpatient Tx. It is understood by the patient/guardian that if the Sx's persist or worsen they need to return immediately for re-evaluation. I discussed with the patient/guardian in detail that at this point there is no indication for admission to the hospital. It is understood, however, that if the symptoms persist or worsen the patient needs to return immediately for re-evaluation. ED course: CT no acute findings, story and imaging consistent with gastritis, likely from recent admission and high-dose steroids, will dc home as feels better, to continue antacids and return precautions given. . 03/20 07:23 Order name: Basic Metabolic Panel; Complete Time: 08:23 rn 03/20 07:23 Order name: CBC with Diff; Complete Time: 08:23 rn 03/20 07:23 Order name: Hepatic Function; Complete Time: 08:23 rn 03/20 07:23 Order name: Lipase; Complete Time: 08:23 rn 03/20 07:23 Order name: CT Abd/Pelvis - IV Contrast Only; Complete Time: 08:53 rn 03/20 07:23 Order name: IV Saline Lock; Complete Time: 07:48 rn 03/20 07:23 Order name: Labs collected and sent; Complete Time: 07:48 rn Administered Medications: 07:41 Drug: Phenergan 12.5 mg Route: IVP; Site: left antecubital; sv 08:30 Follow up: Response: No adverse reaction sv 07:41 Drug: NS 0.9% 500 ml Route: IV; Rate: bolus; Site: left antecubital; sv 08:30 Follow up: Response: No adverse reaction; IV Status: Completed infusion; IV Intake: sv 500ml 07:43 Drug: Demerol 25 mg {Note: rass1.} Route: IVP; Site: left antecubital; sv 08:30 Follow up: Response: No adverse reaction; RASS: Alert and Calm (0) sv 09:06 Drug: Pepcid 20 mg Route: IVP; Site: left antecubital; sv 09:39 Follow up: Response: No adverse reaction sv 09:06 Drug: GI Cocktail without - (Maalox Suspension 30 ml, Lidocaine Liquid 2 % 15 sv ml) Route: PO; 09:39 Follow up: Response: No adverse reaction sv Disposition: 03/20/20 09:18 Discharged to Home. Impression: Gastritis, unspecified. - Condition is Stable. - Discharge Instructions: Gastritis, Adult. - Medication Reconciliation Form, Thank You Letter, Antibiotic Education, Prescription Opioid Use form. - Follow up: Private Physician; When: As needed; Reason: Recheck today's complaints, Re-evaluation by your physician. - Problem is new. - Symptoms have improved. Signatures: Dispatcher [employer] EDOH Rebecca Interiano RN RN Matthew Hicks MD MD rn Smirch, Shelby, RN RN ss Corrections: (The following items were deleted from the chart) 09:39 09:18 03/20/2020 09:18 Discharged to Home. Impression: Gastritis, unspecified. sv Condition is Stable. Forms are Medication Reconciliation Form, Thank You Letter, Antibiotic Education, Prescription Opioid Use. Follow up: Private Physician; When: As needed; Reason: Recheck today's complaints, Re-evaluation by your physician. Problem is new. Symptoms have improved. rn
--- NOTE | 2020-03-20 09:19 | ER ---
Nurse's Notes [facility] Name: Snow Argueta Age: 34 yrs Sex: Female : 1985 Arrival Date: 03/20/2020 Time: 06:48 Bed 6 Private MD: Diagnosis: Gastritis, unspecified Presentation: 03/20 07:01 Chief complaint: Patient states: bloating x a few days and epigastric pain that ss radiates towards back that began yesterday. Pt reports it feels similar to when she had pancreatitis. Coronavirus screen: Client denies travel out of the [place] in the last 14 days. Ebola Screen: Patient denies exposure to infectious person. Patient denies travel to an Ebola-affected area in the 21 days before illness onset. Initial Sepsis Screen: Does the patient meet any 2 criteria? No. Patient's initial sepsis screen is negative. Does the patient have a suspected source of infection? No. Patient's initial sepsis screen is negative. Risk Assessment: Do you want to hurt yourself or someone else? Patient reports no desire to harm self or others. Onset of symptoms was February 2020. 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 - Social history:: Smoking status: Patient denies any tobacco usage or history of. - Family history:: not pertinent. - Hospitalizations: : Patient was recently seen at. Screenin:18 Abuse screen: Denies threats or abuse. Denies injuries from another. Nutritional sv screening: No deficits noted. Tuberculosis screening: No symptoms or risk factors identified. Fall Risk None identified. Assessment: 07:35 General: Appears in no apparent distress. uncomfortable, well developed, Behavior is sv calm, cooperative, appropriate for age. Pain: Complains of pain in epigastric area Pain currently is 10 out of 10 on a pain scale. Quality of pain is described as bloating Is intermittent. Neuro: Level of Consciousness is awake, alert, obeys commands, Oriented to person, place, time, situation, Moves all extremities. Full function. Respiratory: Airway is patent Respiratory effort is even, unlabored, Respiratory pattern is regular, symmetrical. GI: Abdomen is flat, Abd is soft X 4 quads Abdomen is tender to palpation in epigastric area Reports epigastric pain. Derm: Skin is intact, Skin is pink, warm \T\ dry. 08:34 Reassessment: Patient appears in no apparent distress at this time. No changes from previously documented assessment. Patient and/or family updated on plan of care and expected duration. Pain level reassessed. Patient is alert, oriented x 3, equal unlabored respirations, skin warm/dry/pink. 09:38 Reassessment: Patient appears in no apparent distress at this time. Patient and/or sv family updated on plan of care and expected duration. Pain level reassessed. Patient is alert, oriented x 3, equal unlabored respirations, skin warm/dry/pink. Patient states symptoms have improved. Vital Signs: 07:01 BP 117 / 81; Pulse 78; Resp 15; Temp 97.2(TE); Pulse Ox 97% on R/A; Weight 99.79 kg; ss Height 5 ft. 6 in. (167.64 cm); Pain 10/10; 08:00 BP 120 / 81; Pulse 72; Resp 16; Pulse Ox 98% on R/A; sv 09:31 BP 114 / 71; Pulse 65; Resp 16; Pulse Ox 100% ; sv 07:01 Body Mass Index 35.51 (99.79 kg, 167.64 cm) ED Course: 06:48 Patient arrived in ED. bp1 07:03 Triage completed. ss 07:04 Arm band placed on right wrist. ss 07:12 Matthew Ramirez MD is Attending Physician. rn 07:14 Rebecca Interiano RN is Primary Nurse. sv 07:18 ED physician to see patient. sv 07:18 Patient has correct armband on for positive identification. Placed in gown. Bed in low sv position. Call light in reach. Pulse ox on. NIBP on. Door closed. Head of bed elevated. 07:40 Inserted saline lock: 20 gauge in left antecubital area, using aseptic technique. Blood sv collected. Flushed left antecubital with 5 ml normal saline. 07:[address] Scan. sv 08:[address] Scan. sv 08:29 CT Abd/Pelvis - IV Contrast Only In Process Unspecified. EDMS 08:[address] from [address]. sv 09:38 No provider procedures requiring assistance completed. IV discontinued, intact, sv bleeding controlled, No redness/swelling at site. Pressure dressing applied. Administered Medications: 07:41 Drug: Phenergan 12.5 mg Route: IVP; Site: left antecubital; sv 08:30 Follow up: Response: No adverse reaction sv 07:41 Drug: NS 0.9% 500 ml Route: IV; Rate: bolus; Site: left antecubital; sv 08:30 Follow up: Response: No adverse reaction; IV Status: Completed infusion; IV Intake: sv 500ml 07:43 Drug: Demerol 25 mg {Note: rass1.} Route: IVP; Site: left antecubital; sv 08:30 Follow up: Response: No adverse reaction; RASS: Alert and Calm (0) sv 09:06 Drug: Pepcid 20 mg Route: IVP; Site: left antecubital; sv 09:39 Follow up: Response: No adverse reaction sv 09:06 Drug: GI Cocktail without - (Maalox Suspension 30 ml, Lidocaine Liquid 2 % 15 sv ml) Route: PO; 09:39 Follow up: Response: No adverse reaction sv Intake: 08:30 IV: 500ml; Total: 500ml. sv Outcome: 09:18 Discharge ordered by . rn 09:38 Discharged to home ambulatory. sv 09:38 Condition: stable 09:38 Discharge instructions given to patient, Instructed on discharge instructions, follow up and referral plans. food and drinks to avoid Demonstrated understanding of instructions, follow-up care. 09:39 Patient left the ED. sv Signatures: Dispatcher [employer] EDRebecca Williamson, RN RN Matthew Hicks MD MD rn Smirch, Shelby, RN RN Shelley Villaseñor
[2020-03-20 09:59] VITALS: TEMP 97.2
[2020-03-20 10:02] VITALS: BP 114/71; O2SAT 100
== END 2020-03-20 09:39 | disposition home or self-care (01) ==
LOC: ER 06:45
DX: K29.70 Gastritis, unspecified, without bleeding (principal); K21.9 Gastro-esophageal reflux disease without esophagitis; Z85.6 Personal history of leukemia; Z88.1 Allergy status to other antibiotic agents; Z91.040 Latex allergy status; Z91.048 Other nonmedicinal substance allergy status
CPT/HCPCS: 96361; 85025; 80048; 36415; 80076; 83690; 74177; 96375; 96374; 99284; Q9967; J2550; J2175; J7040

== ENCOUNTER 2020-04-18 10:21 | Emergency (ER) | payer BC ==
--- OUTSIDE RECORDS SUMMARY | 2020-04-18 10:28 | XMS REPORT | Clinical Summary ---
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 ELEMR STAT 02/03/2020 6:25 Results for this PM [...] are i n the results section. after 04/18/2019 Results 3 in 1 [employer] (02/16/2020 10:31 AM CDT)Only the most recent of2 resultswithin the time period is included. SUPPLIER NAME [employer] and [facility] HEALTH SUPPLIER PHONE [phone] [facility] ORDER STATUS Delivery Successful [facility] DELIVERY NOTE [facility] REQUESTED DELIVEY 02/16/2020 [place] DATE HEALTH ITEM DESCRIPTION 3 in 1 [facility] CommodeComment: HEALTH Qty: 1 ACTUAL DELIVERY DATE 02/16/2020 [facility] ITEM DESCRIPTION 3 in 1 [facility] CommodeComment: HEALTH Qty: 1 Specimen Performing Organization Address City/[facility] Phon e Number [facility] Estimated GFR (02/16/2020 5:10 AM CDT)Only the most recent of10 resultswithin the time period is included. Estimated GFR >=90 mL/min/1.73 [facility] Comment: m2 HOSPITAL Catergory Units Interpretation G1 [...] 2014. Specimen Plasma Performing Organization Address City/State/ZIP [facility] Phon e Number [facility] DEPARTMENT OF PATHOLOGY AND [address] [place], [place] [address] GEN[address] [address] Basic metabolic panel (02/16/2020 5:10 AM CDT)Only the most recent of9 results within the time period is included. Pathologist Sig nature Sodium 138 135 - 148 mEq/L [facility] L Potassium 4.1 3.5 - 5.0 mEq/L [facility] Chloride 103 98 - 112 mEq/L [facility] CO2 21 (L) 24 - 31 mEq/L [facility] Anion gap 14@ANIO 7 - 15 mEq/L [facility] BUN 14 6 - 20 mg/dL [facility] Creatinine 0.81 0.50 - 0.90 mg/dL [facility] AJ Glucose 110 (H) 65 - 99 mg/dL [facility] Calcium 8.6 8.3 - 10.2 mg/dL [facility] AL Specimen Plasma Performing Organization Address City/State/ZIP Code Phon e Number [facility] DEPARTMENT OF PATHOLOGY AND [address] [place], [place] [address] GENOMIC MEDICINE [facility] [address] [place] [address] EMG General Request (02/15/2020 12:46 PM CDT) Narrative Performed At This result has an attachment that is no t available. Electromyogram and NCS Report [facility] Neurological [employer] [address],[place], [place] T: F: Patient: Sapna Argueta Physician: [...] is included. WBC 8.53 4.50 - 11.00 [facility] RBC 4.05 (L) 4.20 - 5.50 [facility] m/uL HOSPITAL HGB 12.0 12.0 - 16.0 [facility] g/dL [facility] HCT 36.1 (L) 37.0 - 47.0 % [facility] MCV 89.1 82.0 - 100.0 [facility] MCH 29.6 27.0 - 34.0 pg [facility] MCHC 33.2 31.0 - 37.0 [facility] g/dL [facility] RDW - SD 40.5 37.0 - 55.0 [facility] MPV 11.9 8.8 - 13.2 [facility] Platelet count 171 150 - 400 k/uL [facility] Nucleated RBC 0.00 /100 WBC [facility] Neutrophils 64.6 39.0 - 69.0 % [facility] Lymphocytes 26.0 25.0 - 45.0 % [facility] Monocytes 6.1 0.0 - 10.0 % [facility] Eosinophils 1.8 0.0 - 5.0 % [facility] Basophils 0.4 0.0 - 1.0 % [facility] Immature granulocytes 1.1 0.0 - 1.0 % [facility] (H)Comment: HOSPITAL "Immature granulocytes" (promyelocytes , myelocytes, metamyelocytes ) Specimen Plasma Performing Organization Address City/State/ZIP Code Phon e Number [facility] DEPARTMENT OF PATHOLOGY AND [address] [place] [phone] GENOMIC MED[address] [address] Visual evoked potentials (02/14/2020 11:52 AM CDT) Narrative Performed At This result has an attachment that is no t available. PATTERN REVERSAL VISUAL EVOKED POTENTIAL REPORT Patient Name: Sapna Argueta Date of : 1985 Gender: female Date of Procedure: 02/14/2020 Indication Vision loss Findings Pattern reversal visual evoked potentials were obtaine d following independent left and right full field monocular stimul ation. [id number] absolute latencies were 99.8 msec and 102.6 [...] the right. Recommend correlation to radiculopathy distribution. [facility]-[id number] Procedure Note Hm Interface, Radiology Results 02/12/2020 11:20 AM CDT EXAMINATION: MRI LUMBAR SPINE [...] the right. Recommend correlation to radiculopathy distribution. [facility]-[id number] Performing Organization Address City/State/[facility] Phon e Number [facility] [address] [place] [address] MRI Brain Venogram (02/13/2020 9:47 AM CDT) Specimen Narrative Performed At This result has an attachment that is no t available. EXAM: MRI BRAIN VENOGRAM [facility] CLINICAL HISTORY: Headache chronic normal neuro exam [...] sinus venous thrombosis. 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 Location: Left basilic Device Type: Non-valved Catheter Lumen(s): Single lumen Catheter size: 3 Fr Catheter to vein ratio: 24% MidLine Characteristics: Catheter Brand: InferX MIDLINE Internal Catheter Length (cm): 12 Total Catheter Length (cm): 12 Catheter Lot Number: [id number] Catheter Expiration Date: 05/21/2021 Procedure details: Landmarks [...] 5:26 PM CDT) Specimen Narrative Performed At [facility] Vascular U ltrasound Laboratory Upper Extr emity Venous Report [address] [facility], [address] [address] Pat.Name: AIDA SAPNAKRISTAL Ott.ID: [id number] .Date: 02/07/2020 Refer.MD: MAISHA MADDOX MD Exam Time: 4:33:00 PM Study Type:U E Venous Height: 66in Weight: 220lb BSA: 2.08 m2 Ag e: 1985,34Y Sex: FEMALE Sonogrp hr: Ryan Torres, RVT Pat. Stat.:Inpatient Room: [address] Tape Vol: HV, CPT - 4: 94238 Echo Event ID:[id number] Order ID: [id number] Reason for Study:Right arm pain and swel [...] Ultrasound Laboratory Upper Extremity Veno us Report [address] [address] Pat.Name: SAPNA ARGUETA D: [id number] St.Date: 02/07/2020 Refer .MD: MAISHA MADDOX MD Exam Time: 4:33:00 PM Study Type:UE Venous Height: 66in Weigh t: 220lb BSA: 2.08 m2 Age: 8 1985,34Y Sex: FEMALE Sonog rphr: Davis Vi, RVT Pat. Stat.:Inpatient Room: [address] Vol: , CPT - 4: 03115 Echo Event ID:[id number] Order ID: [id number] Reason for Study:Right arm pain and swel [...] MD, RPVI Performing Organization Address City/State/ZIP Code [facility] e Number [facility] [address] [place] [address] [facility] NEED PHYS SKILL,DX OR RX (02/07/2020 [...] addie atment, alternative treatment, observation and referral [place] protocol: Procedure explained and questions ans wered [...] Catheter Length (cm): 12 Catheter Lot Number: [id number] Catheter Expiration Date: 01/18/2021 Procedure details: Landmarks [...] At EXAMINATION: XR CHEST 1 [facility] CLINICAL HISTORY: 34 years Female ches t pressure on exertion COMPARISON: None. IMPRESSION: No acute cardiopulmonary disease. FINDINGS: The cardiomediastinal silhouette, lungs, and regional skeletal structures are within normal limits for age. [facility]-[id number] Procedure Note Hm Interface, Radiology Results Incoming - 02/05/2020 10:12 PM CDT EXAMINATION: XR CHEST 1 VW PORTABLE CLINICAL HISTORY: 34 years Female chest pressure on exertion COMPARISON: None. IMPRESSION: No acute cardiopulmonary disease. FINDINGS: The cardiomediastinal silhouette, lungs, and regional skeletal structures are within normal limits for age. [id number] Performing Organization Address City/State/ZIP Code Phon e Number [facility] [address] [place] [address] ECG 12 lead (02/05/2020 9:12 PM CDT)Only the most recent of2 resultswithin the time period is included. Pathologist Sig nature Ventricular rate 78 [facility]USE Atrial rate 78 [facility] GA interval 144 [facility] QRSD interval 84 [facility] QT interval 382 [facility] QTC interval 435 [facility] P axis 1 52 [facility] QRS axis 1 52 [facility] T wave axis 40 [facility] EKG impression Normal sinus HM MUSE rhythm-Normal ECG-In automated comparison with ECG of 16-OCT-2020 04:50,-No significant change was found- Specimen Narrative Performed At This result has an attachment that is no t available. Performing Organization Address City/[facility] Phon e Number [facility] [address] [place] [address] IgG synthesis rate study (02/04/2020 11:00 AM CDT)Only the most recent of2 resultswithin the time period is included. IgG albumin ratio, SEE 0.00 - 0.23 [facility] CSF COMMENTComment: HOSPITAL Footnote--------- IgG index, CSF SEE 0.01 - 0.63 [facility] COMMENTComment: HOSPITAL Footnote--------- IgG synthetic rate SEE -9.90 - 3.30 [facility] COMMENTComment: mg/day HOSPITAL Footnote--------- Q-albumin ratio, SEE 2.00 - 7.50 [facility] CSF COMMENTComment: HOSPITAL Footnote--------- IgG, CSF SEE 1.00 - 3.00 [facility] COMMENTComment: mg/dL HOSPITAL Footnote--------- Albumin, CSF SEE 10.00 - 30.00 [facility] COMMENTComment: mg/dL HOSPITAL Footnote--------- IgG SEE COMMENT 700 - 1600 [facility] Comment: mg/dL HOSPITAL Footnote--------- Corrected result; previously reported as 852 on 2019 at 12:58 by I/AUT Albumin, S SEE COMMENT 3640.0 - [facility] Comment: 5304.0 mg/dL [facility] Footnote--------- DUPLICATE ORDER. Corrected result; previously reported as 3700.0 on at 12:58 by I/AUT Specimen Serum Performing Organization Address [facility] Phon e Number [facility] DEPARTMENT OF PATHOLOGY AND [address] [place], [place] [address] GENOMIC MEDICINE [place] [id number] [place] [address] AFB culture (02/04/2020 10:56 AM CDT) AFB culture No growth after 6 weeks of incubation. [facility] isolate Comment: HOSPITAL Specimen Information Specimen Source: CSF (Spinal Fluid) Specimen Site: CSF (spinal fluid) Specimen Cerebrospinal fluid - CSF (spinal fluid) Performing Organization Address [facility] Phon e Number [facility] DEPARTMENT OF PATHOLOGY AND [address] [place] [address] [address] Fungus culture (02/04/2020 10:56 AM CDT) Fungus culture No growth after 4 weeks of incubation. [facility] isolate Comment: HOSPITAL Specimen Information Specimen Source: CSF (Spinal Fluid) Specimen Site: CSF (spinal fluid) Specimen Cerebrospinal fluid - CSF (spinal fluid) Performing Organization Address [facility] Phon e Number [facility] DEPARTMENT OF PATHOLOGY AND [address] [place] [address] [address] IR Lumbar Puncture by Radiology (02/04/2020 10:00 [...] Opening pressure was 21 cm of water. [facility]-[id number] Procedure Note Interface, Radiology Results Incoming - [...] Opening pressure was 21 cm of water. [facility]-[id number] Performing Organization Address City/State/ZIP Code Phon e Number [facility] [address] [place] [address] West Nile virus antibody panel, CSF (02/04/2020 9:56 AM CDT) West Nile IgG, 0.09 <=1.29 IV [facility] RE[facility] LAB CSF Comment: INTERPRETIVE [...] of the Flavivirid ae family, such as [place] encephalitis virus, show extensive cross-reactivity with West [...] rrier. Test developed and characteristics determined by [facility]. See Compliance Statement B: [employer]/ [employer] West Nile IgM, 0.02 <=0.89 IV AR REF LAB CSF Comment: INTERPRETIVE INFORMATION: West Nile Virus Ab IgM by JEANNIE BALA, CSF 0.89 IV or less ...... [...] of the Flavivirid ae family, such as [place] encephalitis virus, show extensive cross-reactivity with West [...] rrier. Test developed and characteristics determined by [facility]. See Compliance Statement B: [employer]/ CS Performed By: [facility] [address] [place] [id number] [employer] Machine Operator: Nai Rushing MD Specimen Cerebrospinal fluid Performing Organization Address City/[facility]/ZIP Code Phon e Number [facility] [address] [place] [address] [facility] [address] [place] [address] Cytomegalovirus by PCR (02/04/2020 9:56 AM CDT) Cytomegalovirus by PCR Not-Detected Not-Detected [facility] IU/mL HOSPITAL Cytomegalovirus by PCR See link [facility] below for PDF HOSPITAL Lab ReportComment : Specimen Performing Organization Address City/[facility] Phon e Number [facility] DEPARTMENT OF PATHOLOGY AND [address] [place], [place] [address] GENOMIC MEDICINE [facility] [address] [place] [address] [facility] Varicella zoster by PCR (02/04/2020 9:56 AM CDT) VZV result Not-Detected Not-Detected [facility] copies/mL HOSPITAL Varicella zoster, See link below [facility] pcr for PDF Lab HOSPITAL ReportComment: Specimen Performing Organization Address City/[facility] Phon e Number [facility] DEPARTMENT OF PATHOLOGY AND [address] [place] [phone] GEN[phone] [place] [address] Miscellaneous referral test (02/04/2020 9:56 AM CDT)Only the most recent of3 resultswithin the time period is included. Pathologist [facility] Misc test name JCV QUANT PCR SHOWN [...] and its performance characteri stics determined by [facility]. It has not been cleared or approved by the U.S. Food and Drug Administration. Results should be used in conjunc tion with clinical findings, and should not form the sole basis for a socorro gnosis or treatment decision. Performed at: [facility] [address] [place], [place] Specimen Performing Organization Address City/[facility] Phon e Number [facility] DEPARTMENT OF PATHOLOGY AND [address] [place] [phone] [facility] MEDICINE SHOWN ABOVE Herpes simplex virus by PCR (02/04/2020 9:56 AM CDT) [facility] Herpes virus, PCR Not-Detected Not-Detected [facility] Herpes virus, PCR See link below [facility] for PDF Lab HOSPITAL ReportComment: Specimen Performing Organization Address City/[facility] Phon e Number [facility] DEPARTMENT OF PATHOLOGY AND [address] [place] [phone] GENOMIC MEDICINE [address] [address] [facility] Flow cytometry evaluation (02/04/2020 9:56 AM CDT) [facility] Flow cytometry See link below [facility] evaluation for PDF Lab HOSPITAL Report Specimen Performing Organization Address City/[facility] Phon e Number [facility] DEPARTMENT OF PATHOLOGY AND [address] [place] [address] Albert Noble Virus (EBV) by PCR (02/04/2020 9:56 AM CDT) Pathologist [facility] Albert Noble virus, Not-Detected Not-Detected [facility] PCR copies/mL HOSPITAL Albert Noble virus, See link below [facility] PCR for PDF Lab HOSPITAL ReportComment: Specimen Performing Organization Address City/[facility] Phon e Number [facility] DEPARTMENT OF PATHOLOGY AND [address] [place] [phone] [place] [address] Lyme disease reflexive panel, CSF (02/04/2020 9:56 AM CDT) Pathologist [facility] B. burgdorferi Abs 0.08 <=0.99 [facility] RE[facility] [...] days. Test developed and characteristics determined by [facility]. See Compliance Statement B: [employer]/ CS Performed By: [facility] [address] [place] [address] [employer] Machine Operator: Nai Rushing MD Specimen Cerebrospinal fluid Performing Organization Address [facility] Phon e Number [facility] [address] [place] [address] [facility] [address] [place] [address] Cryptococcal antigen, screen (02/04/2020 9:56 AM CDT) Cryptococcal Ag Negative - No Cryptococcus antigen detected. [facility] Comment: HOSPITAL Specimen Information Specimen Source: CSF (Spinal Fluid) Specimen Site: CSF (spinal fluid) Specimen Cerebrospinal fluid - CSF (spinal fluid) Performing Organization Address [facility] Phon e Number [facility] DEPARTMENT OF PATHOLOGY AND [address] [place] [phone] GENOM[address] [address] Oligoclonal banding, CSF (02/04/2020 9:56 AM CDT) Protein, CSF 24 15 - 45 [facility] mg/dL [facility] Prealbumin, CSF (%) 6.4 3.5 - 11.1 % [facility] Albumin, CSF 66.1 40.8 - 66.2 [facility] Alpha 1, CSF (%) 2.4 2.3 - 6.4 % [facility] Alpha 2, CSF (%) 6.1 6.1 - 12.6 % [facility] Beta, CSF (%) 13.1 11.7 - 24.1 [facility] Gamma, CSF (%) 5.9 5.6 - 12.2 % [facility] CSF extended See [facility] interpretation CommentComment: An [facility] normal [facility] CSF protein study. No oligoclonal bands seen. CSF interpretation See [facility] CommentComment: FAITH Miguel Boyd, PhD; [facility] Fam Calderón MD Specimen Cerebrospinal fluid Performing Organization Address [facility] Phon e Number [facility] DEPARTMENT OF PATHOLOGY AND [address] [place] [address] [phone] [address] Enterovirus by PCR (02/04/2020 9:56 AM CDT) Pathologist Sig nature Enterovirus PCR Not-Detected Not-Detected [facility] Enterovirus PCR See link below [facility] for PDF Lab HOSPITAL ReportComment: Specimen Performing Organization Address [facility] Phon e Number [facility] DEPARTMENT OF PATHOLOGY AND [address] [place] [address] [address] [facility] Gram stain (02/04/2020 9:56 AM CDT) Gram stain isolate No WBC's or organisms seen. [facility] Comment: HOSPITAL Specimen Information Specimen Source: CSF (Spinal Fluid) Specimen Site: CSF (spinal fluid) Specimen Cerebrospinal fluid - CSF (spinal fluid) Performing Organization Address [facility] Phon e Number [facility] DEPARTMENT OF PATHOLOGY AND [address] [place] [address] [address] CSF culture (02/04/2020 9:56 AM CDT) CSF culture No growth after 3 days. [facility] isolate Comment: HOSPITAL Specimen Information Specimen Source: CSF (Spinal Fluid) Specimen Site: CSF (spinal fluid) Specimen Cerebrospinal fluid - CSF (spinal fluid) Performing Organization Address [facility] Phon e Number [facility] DEPARTMENT OF PATHOLOGY AND [address] [place] [address] [address] CSF cell count with differential (02/04/2020 9:56 AM CDT) Color, CSF Colorless [facility] Appearance, CSF Clear [facility] Comment: HOSPITAL Corrected result called to Juan Daniel Mallory/WT18 13:21 Corrected result; previously reported as Slightl y hazy on 02/04/2020 at 11:19 by DH2 RBC, CSF 33 (H) 0 - 1 /CMM [facility] WBC, CSF 1 0 - 5 /CMM [facility] CSF mononuclear cell 1/CMM [facility] Specimen Cerebrospinal fluid Performing Organization Address City/[facility] Phon e Number [facility] DEPARTMENT OF PATHOLOGY AND [address] [place] [address] [phone] [address] VDRL, CSF screen (02/04/2020 9:56 AM CDT) Pathologist Sig nature VDRL, CSF screen Non-reactive Non-reactive [facility] Specimen Cerebrospinal fluid Performing Organization Address City/[facility] Phon e Number [facility] DEPARTMENT OF PATHOLOGY AND [address] [place] [address] [phone] [address] Glucose level, CSF (02/04/2020 9:56 AM CDT) Pathologist Sig nature Glucose, CSF 90 (H) 40 - 70 mg/dL [facility] Specimen Cerebrospinal fluid Performing Organization Address [facility] Phon e Number [facility] DEPARTMENT OF PATHOLOGY AND [address] [place] [address] [phone] [address] Angiotensin converting enzyme, CSF (02/04/2020 9:56 AM CDT) Angiotensin 0.6 0.0 - 2.5 [facility] converting enzyme, Comment: U/L CSF This test was developed and its performance characteri stics determined by [facility]. The U.S. Food and Isma g Administration has not approved or cleared this test; however, FDA clearance or approval is not currently required for cl inical use. The results are not intended to be used as the sole me ans for clinical diagnosis or patient management decisions. Performed By: [facility] [address] [place] [address] [employer] Operator: Nai Rushing MD Specimen Cerebrospinal fluid Performing Organization Address [facility] Phon e Number [facility] [address] [place] [address] [facility] [address] [place] [address] EEG (routine) (02/04/2020 7:19 AM CDT) Narrative [...] after 5 days of incubation. [facility] isolate Comment: HOSPITAL Specimen Information Specimen Source: Blood Specimen Site: Antecubital, right Specimen Blood - Antecubital, right Performing Organization Address [facility] Phon e Number [facility] DEPARTMENT OF PATHOLOGY AND [address] [place], [place] [phone] [address] [address] Urinalysis screen and microscopy, with reflex to culture (02/04/2020 12:56 AM CDT) Specimen site Clean catch [facility] Color, UA Yellow [facility] Appearance, UA Clear [facility] Specific gravity, UA 1.036 (H) 1.001 - 1.035 [facility] pH, UA 5.0 5.0 - 8.5 [facility] Protein, UA 1+ (A) Negative [facility] Glucose, UA 1+ (A) Negative [facility] Ketones, UA Negative Negative [facility] Bilirubin, UA Negative Negative [facility] Blood, UA Negative Negative [facility] Nitrite, UA Negative Negative [facility] Urobilinogen, UA <2.0 <2.0 [facility] Leukocyte esterase, Negative Negative [facility] Epithelial cells, UA 2 /HPF [facility] WBC, UA <1 0 - 4 /HPF [facility] RBC, UA None seen 0 - 5 /HPF [facility] Bacteria, UA None seen None seen [facility] Yeast, UA Few (A) [facility] Yeast with None seen [facility] pseudohyphae, HOSPITAL Hyaline casts, UA 4 /LPF [facility] Specimen Urine Performing Organization Address City/[facility] Phon e Number [facility] DEPARTMENT OF PATHOLOGY AND [address] [place] [address] [phone] [address] Urine drugs of abuse screen (02/04/2020 12:56 AM CDT) Amphetamine screen, Negative [place] urine [facility] Barbiturate screen, Negative [place] urine [facility] Benzodiazepine Negative [place] screen, urine [facility] Cocaine screen, urine Negative [facility] Methadone metabolite Negative [place] (EDDP), urine [facility] Opiates screen, urine Positive (A) [facility] Oxycodone screen, Negative [place] urine [facility] Phencyclidine screen, Negative [place] urine [facility] Tricyclic screen, Negative [place] urine [facility] Cannabinoid screen, Negative [place] urine Comment: [facility] Drug screen minimum concentration of detectability HOSPITAL [...] requir ed. Specimen Urine Performing Organization Address City/[facility] Phon e Number [facility] DEPARTMENT OF PATHOLOGY AND [address] [place] [phone] Urine culture (02/04/2020 12:56 AM CDT) Pathologist Sig nature Urine culture SEE COMMENTComment: [facility] Bacteriuria screen HOSPITAL negative. Specimen Performing Organization Address City/[facility] Phon e Number [facility] DEPARTMENT OF PATHOLOGY AND [address] [place] [address] [address] COVID-19 qualitative PCR (02/03/2020 11:41 PM CDT) Interpretation Negative results do not prec lude 2019-nCoV infection and should not be used as the sole basis for treatment or other patient management decisions. Negative results must be combined with clinical observations, patient history, and epidemiological NEUMANN information. [facility] COVID-19 qualitative Not-Detected Not-Detecte [place] PCR result d [facility] COVID-19 qualitative See link below for [place] PCR PDF Lab [facility] ReportComment: Case HOSPITAL Number: [id number] Specimen Nasal swab Performing Organization Address City/[facility]/ZIP Code Phon e Number [facility] DEPARTMENT OF PATHOLOGY AND [address] [place], [place] [address] GENOMIC MEDICINE [facility] [address] [place] [address] [facility] MRI Brain & Orbit W Wo Contrast [...] Unremarkable MRI of the brain and orbits. [id number] Procedure Note Interface, Radiology Results Incoming - [...] MRI of the brain and orbits . [facility]-[id number] Performing Organization Address City/[facility]/ZIP Code Phon e Number [facility] [address] [place] [address] MRI Thoracic Spine W Contrast (02/03/2020 10:12 [...] City/State/ZIP Code Phon e Number [facility] [address] [place] [address] MRI Cervical Spine W Contrast (02/03/2020 10:12 [...] No evidence of cervical cord demyelinati on. [facility]-[id number] Procedure Note Hm Interface, Radiology Results Incoming - 02/03/2020 10:36 [...] No evidence of cervical cord demyelinati on. [facility]-[id number] Performing Organization Address City/[facility] Code Phon e Number [facility] [address] [place] [address] Cytology (non-gynecological) request (02/03/2020 8:17 PM CDT) [facility] DEPARTMENT OF PATHOLOGY AND GENOMIC MEDICINE Cytology See link below [facility] DEPARTMENT OF (non-gynecological) for PDF Lab PATHOLOGY AND report Report GENOMIC MEDICINE Result status This is Final [facility] DEPARTMENT OF Report for PATHOLOGY AND [id number] GENOMIC MEDICINE Specimen Performing Organization Address [facility] Phon e Number [facility] DEPARTMENT OF PATHOLOGY AND [address] [place] [phone] GENOMIC MEDICINE Comprehensive metabolic panel (02/03/2020 6:35 PM CDT) Sodium 140 135 - 148 [facility] mEq/L [facility] Potassium 3.8 3.5 - 5.0 [facility] mEq/L [facility] Chloride 104 98 - 112 [facility] mEq/L [facility] CO2 18 (L) 24 - 31 mEq/L [facility] Anion gap 18@ANIO (H) 7 - 15 mEq/L [facility] BUN 16 6 - 20 mg/dL [facility] Creatinine 0.62 0.50 - 0.90 [facility] mg/dL HOSPITAL Glucose 137 (H) 65 - 99 mg/dL [facility] Calcium 9.0 8.3 - 10.2 [facility] mg/dL [facility] Protein 7.2 6.3 - 8.3 [facility] Comment: g/dL [facility] [place] 4.6-7.0 g/dL 1 week 4.4-7.6 g/dL 7 months-1year 5.1-7.3 g/dL 1-2 years 5.6-7.5 g/dL >3 years 6.0-8.0 g/dL 18-150 6.3-8.3 g/dL Albumin 3.9 3.5 - 5.0 [facility] g/dL [facility] A/G ratio 1.2 0.7 - 3.8 [facility] Alkaline phosphatase 57 35 - 104 U/L [facility] AST 15 10 - 35 U/L [facility] ALT 25 5 - 50 U/L [facility] Total bilirubin 0.3 0.0 - 1.2 [facility] mg/dL HOSPITAL Specimen Blood Performing Organization Address City/[facility] Phon e Number [facility] DEPARTMENT OF PATHOLOGY AND [address] [place] [phone] Syphilis total antibody (02/03/2020 6:25 PM CDT) [facility] Syphilis total Non-reactiveComment Non-reactive [facility] antibody : No serological HOSPITAL evidence of syphilis infection. Specimen Serum Performing Organization Address City/[facility]/ZIP [facility] Phon e Number [facility] DEPARTMENT OF PATHOLOGY AND [address] [place] [address] [address] HIV Ag/Ab combination (02/03/2020 6:25 PM CDT) [facility] HIV Ag/Ab combination Non-reactive Non-reactive [facility] Specimen Blood Performing Organization Address City/[facility]/ZIP [facility] Phon e Number [facility] DEPARTMENT OF PATHOLOGY AND [address] [place] [address] [address] Homocystine, plasma (02/03/2020 6:25 PM CDT) Pathologist [facility] Homocysteine 6.4 0.0 - 15.0 [facility] Comment: umol/L HOSPITAL The risk for coronary vascular disease increases progr essively with homocysteine concentration. A 3.4 times greater risk is associated with a homocysteine concentration of greate r than 15.8 umol/L as compared to a concentration below 14.1 umol/L. Specimen Blood Performing Organization Address City/[facility]/ZIP Code Phon e Number [facility] DEPARTMENT OF PATHOLOGY AND [address] [place], [place] [address] GENOMIC MEDICINE [facility] [address] [place] [address] B. burgdorferi Abs total, serum (02/03/2020 6:25 PM CDT) Pathologist [facility] B. burgdorferi 0.98 0.00 - 1.20 [facility] antibodies Comment: INTERPRETIVE INFORMATION: Borrelia Burgdorferi Abs,Tot al by DARSHANA 0.99 REJI or Less: ...... Negative: Antibody to B. burgdorferi no t detected. 1.00 - 1.20 REJI......... Equivocal: Repeat testing in 10-14 days may be helpful. 1.21 REJI or Greater: ... Positive: Probable presenc e of antibody to B. burgdorferi detected. Performed By: [facility] [address] [place] [address] Notch Machine Operator: Nai Rushing MD Specimen Serum Performing Organization Address City/[facility] Code Phon e Number [facility] [address] [place] [address] [facility] [address] [place] [address] Vitamin D 25 hydroxy level (02/03/2020 6:25 PM CDT) Pathologist [facility] Vitamin D, 48.7 30.0 - 150.0 [facility] 25-hydroxy Comment: ng/mL HOSPITAL This [...] alternative methods. Specimen Blood Performing Organization Address City/[facility]/ZIP Code Phon e Number [facility] DEPARTMENT OF PATHOLOGY AND [address] [place] [address] Sedimentation rate (02/03/2020 6:25 PM CDT) Pathologist Sig nature Sedimentation rate 7 0 - 20 mm/hr [facility] Specimen Blood Performing Organization Address [facility] Phon e Number [facility] DEPARTMENT OF PATHOLOGY AND [address] [place] [address] Rheumatoid factor (02/03/2020 6:25 PM CDT) Pathologist [facility] Rheumatoid factor <10 0 - 13 IU/mL [facility] Specimen Blood Performing Organization Address [facility] Phon e Number [facility] DEPARTMENT OF PATHOLOGY AND [address] [place] [address] C-reactive protein (02/03/2020 6:25 PM CDT) Pathologist [facility] CRP <0.30 0.00 - 0.50 mg/dL [facility] Specimen Blood Performing Organization Address [facility] Phon e Number [facility] DEPARTMENT OF PATHOLOGY AND [address] [place] [address] EL[place] (02/03/2020 6:25 PM CDT) [place] screen Negative Negative [facility] Comment: HOSPITAL Test performed using [employer] Signaturee DAPI ELMER kit (Indirect Immunofluorescence Assay) for Anti-Nuclear Antibody on [employer] 160 Analyzer. Specimen Blood Performing Organization Address City/[facility]/ZIP [facility] Phon e Number [facility] DEPARTMENT OF PATHOLOGY AND [address] [place] [address] T3 (02/03/2020 6:25 PM CDT) Pathologist Sig nature T3 70 (L) 80 - 200 ng/dL [facility] Specimen Blood Performing Organization Address [facility] Phon e Number [facility] DEPARTMENT OF PATHOLOGY AND [address] [place] [address] [place] [address] Thyroid stimulating hormone (02/03/2020 6:25 PM CDT) Pathologist Sig nature TSH 1.12 0.27 - 4.20 uIU/mL [facility] ITAL Specimen Blood Performing Organization Address City/[facility] Phon e Number [facility] DEPARTMENT OF PATHOLOGY AND [address] [place] [address] [phone] [address] T4, free (02/03/2020 6:25 PM CDT) Pathologist Sig nature T4, free 1.0 0.9 - 1.7 ng/dL [facility] Specimen Blood Performing Organization Address [facility] Phon e Number [facility] DEPARTMENT OF PATHOLOGY AND [address] [place] [phone] Folate level (02/03/2020 6:25 PM CDT) Pathologist Sig [facility] Folate 8.0 4.8 - 24.2 ng/mL [facility] [place] Specimen Serum Performing Organization Address [facility] Phon e Number [facility] DEPARTMENT OF PATHOLOGY AND [address] [place] [phone] [place] [address] Vitamin B12 level (02/03/2020 6:25 PM CDT) Vitamin B12 [phone] [facility] Comment: pg/mL HOSPITAL Significant overlap exists between normal and deficien cy states. However, most patients with deficiencies will have Ser um B12 <200 pg/mL. Specimen Serum Performing Organization Address [facility] Phon e Number [facility] DEPARTMENT OF PATHOLOGY AND [address] [place] [address] Cortisol level, random (02/03/2020 6:25 PM CDT) Cortisol, random 2 ug/dL [facility] Comment: HOSPITAL Reference Ranges are not established for non-timed Cor tisol levels. Reference Range for Timed Cortisol: 6 - 10 AM 6 - 18 ug/d l 4 - 8 PM 3 - 11 ug/ dl Specimen Blood Performing Organization Address City/State/ZIP Code Phon e Number [facility] DEPARTMENT OF PATHOLOGY AND [address] [place], [place] [address] GENOMIC MEDICINE [facility] [address] [place] [address] CT Head Wo Contrast (02/03/2020 4:14 PM [...] appropria te moderation of exposure. Automated dose vendor management consultant nology is applied to adjust radiation exposure [...] ensure appropriate moderation of exposure. Automated dose vendor management consultant nology is applied to adjust radiation exposure [...] intracranial ab normality. [id number] Performing Organization Address [facility] [address] [place] [address] hCG quantitative, serum (02/03/2020 2:27 PM CDT) hCG quantitative, <1 0 - 5 mIU/mL [facility] serum Comment: HOSPITAL Reference range for HCG Quant applies to males and non - females. 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
--- OUTSIDE RECORDS SUMMARY | 2020-04-18 10:29 | XMS REPORT | Summary of Care ---
:1985 Author Organization [facility] [place] Address [address] [place] [address]- phone Encounter HQ Encntr_madelyn(FIN) [id number] Date(s): 04/11/20 - 04/11/20 [facility] [address] [place] [address]- [phone] Discharge Disposition: Home or Self Care Attending Physician: David Chung MD Referring Physician: David Chung MD Vital Signs No data available for this section Problem List Condition Effective Dates Status Health Status Informant Back pain(Confirmed) Active Complex partial seizures(Confirmed) Active Disorientation(Confirmed) Active History of leukemia(Confirmed) Active Headache(Confirmed) Active Hemiplegia(Confirmed) Active Generalized seizure Active disorder(Confirmed) Simple obesity(Confirmed) Active Visual disturbance(Confirmed) Active Allergies, Adverse Reactions, Alerts Substance Reaction [...] Reg Smoking Cessation Counseling No entered on: 03/29/20 Assessment and Plan No data available for this section
--- OUTSIDE RECORDS SUMMARY | 2020-04-18 10:29 | XMS REPORT | Continuity of Care Document ---
:1985 Author Organization [employer] Care Team Providers Name Role Phone [employer] Unavailable Un available Problems Problem Status Onset Classification Date Comments Sourc e Date Reported Complex partial Active Problem 04/14/2020 Mis doreen epileptic seizure Ne uro (disorder) History of - * Active Problem 04/14/2020 M[facility] her leukemia Neuro (context-dependen t category) Headache Active Problem 04/14/2020 [facility] (finding) Neuro Simple obesity Active Problem 04/14/2020 [facility] her (disorder) Neuro Backache Active Problem 04/14/2020 [facility] (finding) Neuro Hemiplegia Active Problem 04/14/2020 [facility] (disorder) Neuro Visual Active Problem 04/14/2020 [facility] disturbance Neuro (disorder) Disorientated Active Problem 04/14/2020 [facility] (finding) Neuro Seizure disorder Active Problem 04/14/2020 Mi matt (disorder) Neuro Medications Medication Details Route Status Patient Ordering Order Source Instructions Provider Date Reglan 0 Refill(s) Active [facility] 020 Neuro oxcarbazepine 300 300 mg = 1 Active Mis doreen MG Oral Tablet tab, PO, 019 Neuro [Trileptal] BID, # 180 tab, 3 Refill(s), [facility]acy: [facility] #[id number] 24 HR topiramate 100 mg = 1 Active Misc her 100 MG Extended cap, PO, 019 Neuro Release Capsule Daily, # 90 [Trokendi] cap, 3 Refill(s), Pharmacy: [facility] #[id number] 24 HR topiramate 100 mg = 1 No Longer Mi matt 100 MG Extended cap, PO, Active 019 Neuro Release Capsule Daily, X 30 [Trokendi] day, # 30 cap, 3 Refill(s), Pharmacy: [facility] oxcarbazepine 300 300 mg = 1 No Longer M ischer MG Oral Tablet tab, PO, Active 019 Neuro [Trileptal] BID, X 30 day, # 60 tab, 3 Refill(s), Pharmacy: [facility] lisdexamfetamine 30 mg = 1 Active Misch er dimesylate 30 MG cap, PO, 019 Neuro Oral Capsule QAM, # 30 [Vyvanse] cap, 0 Refill(s) omeprazole 20 mg 20 mg = 1 Active Misch er oral delayed cap, PO, 019 Neuro release capsule Daily, # 30 cap, 2 Refill(s), Pharmacy: [facility] oxcarbazepine 300 300 mg = 1 Active Mis doreen MG Oral Tablet tab, PO, 019 Neuro [Trileptal] BID, # 60 tab, 2 Refill(s), Pharmacy: [facility] 24 HR topiramate 100 mg = 1 Active Misc her 100 MG Extended cap, PO, 019 Neuro Release Capsule Daily, # 30 [Trokendi] cap, 3 Refill(s), Pharmacy: [facility] topiramate 25 MG 25 mg = 1 Active Misch er Oral Tablet tab, PO, 019 Neuro [Topamax] BID, # 60 tab, 2 Refill(s), Pharmacy: [facility] Phenytoin sodium 200 mg = 2 Active Misc her 100 MG Extended cap, PO, 019 Neuro Release Capsule BID, # 120 [Dilantin] cap, 3 Refill(s), Pharmacy: [facility] Alprazolam 0.5 MG 0.5 mg = 1 [...] Value Date Comments Source Systolic (mm Hg) 125 03/29/2020 [facility] [place] ro Diastolic (mm Hg) 84 03/29/2020 [facility] Ne u[facility] Heart Rate 88 03/29/2020 [facility] Respitory Rate 16 03/29/2020 [facility] Height 167.64 cm 03/29/2020 [facility] Weight 106.364 03/29/2020 [facility] BMI Calculated 37.85 03/29/2020 [facility] Systolic (mm Hg) 112 02/29/2020 [facility] [place] ro Diastolic (mm Hg) 72 02/29/2020 [facility] Heart Rate 88 02/29/2020 [facility] Respitory Rate 16 02/29/2020 [facility] Neuro Height 167.64 cm 02/29/2020 [facility] Neuro Weight 100 02/29/2020 [facility] BMI Calculated 35.58 02/29/2020 [facility] Systolic (mm Hg) 120 12/23/2018 [facility] [place] ro Diastolic (mm Hg) 85 12/23/2018 [facility] Ne uro Heart Rate 75 12/23/2018 [facility] Neuro Respitory Rate 16 12/23/2018 [facility] Neuro Height 167.64 cm 12/23/2018 [facility] Neuro Weight 90 12/23/2018 [facility] BMI Calculated 32.02 12/23/2018 [facility] Neuro BMI Calculated 32.02 11/27/2018 [facility] Neuro Weight 90 11/27/2018 [facility] Neuro Height 167.64 cm 11/27/2018 [facility] [...] [facility] Ne uro BMI Calculated 32.67 10/01/2018 [facility] Neuro Weight 91.818 10/01/2018 [facility] Neuro Height 167.64 cm 10/01/2018 [facility] Neuro Respitory Rate 16 10/01/2018 [facility] Neuro Heart Rate 83 10/01/2018 [facility] Neuro Systolic (mm Hg) 109 10/01/2018 [facility] Adrian ro Diastolic (mm Hg) 80 10/01/2018 [facility] Ne uro Encounters Location Location Encounter Encounter Reason Attending ADM DC Stat us Source Details Type Number For Provider Date Date Visit Outpatient [id number] David 10/01 [facility] [place] [facility] Outpatient [id number] David 10/01 10/02 [facility] Neurology [facility] [place] Outpatient [id number] David 10/02 [facility] [place] MNA Outpatient [id number] David 10/02 10/03 [facility] Neurology [facility] Neuro [place] Outpatient [id number] David 10/16 [facility] [place] [facility] Outpatient [id number] David 10/16 10/17 [facility] Neurology [facility] Neuro [place] Outpatient [id number] David 11/27 [facility] [place] M[place] Outpatient [id number] David 11/27 11/28 [facility] Neurology [facility] Neuro [place] Outpatient [id number] David 12/23 [facility] [place] MNA Outpatient [id number] David 12/23 12/24 [facility] Neurology [facility] Neuro [place] Outpatient [id number] David 04/28 Active [facility] [place] MNA Ambulatory [id number] David 04/28 04/28 [facility] Neurology Pre-Reg Krell /2019 Neuro [place] MNA Outside [id number] 05/21 05/23 [facility] Neurology Medical /2019 Neuro [place] Records Outpatient [id number] David 02/14 Active [facility] [place] MNA Ambulatory [id number] Marck 02/14 02/14 [facility] Neurology Pre-Reg Robyn /2019 Neuro [place] Outpatient [id number] David 02/28 Active [facility] [place] M[place] Outpatient [id number] David 02/28 03/01 [facility] Neurology Kre /2019 Neuro [place] Outpatient [id number] David 03/29 Active [facility] [place] [facility] Outpatient [id number] David 03/29 03/30 [facility] Kre /2019 Neuro [place] Outpatient [id number] David 04/11 Active [facility] /2019 [place] MNA Outpatient [id number] David 04/11 04/12 [facility] Neurology Kre /2019 Neuro [place] Outpatient [id number] David 04/19 Active [facility] /2019 [place] Procedures Procedure Code Date Perfomer Comments Source Tubal ligation [id number] [facility] Assessment and Plan No Data Provided for This Section Plan of Care No Data Provided for This Section Social History Social History Date Source Social History TypeResponse 10/01/2018 [facility] Ne[facility] Employment/School Status: Employed. Smoking Status Never smoker; Exposure to Tobacco Smoke None; Cigarette Smoking Last 365 Days No; Reg Smoking Cessation Counseling No entered on: 03/29/20 Family History No Data Provided for This Section Advance Directives No Data Provided for This Section Functional Status No Data Provided for This Section
--- OUTSIDE RECORDS SUMMARY | 2020-04-18 10:31 | XMS REPORT | Continuity of Care Document ---
:1985 Author Organization [facility] t Address [address] [place] [address] Care Team Providers Name Role Phone Yari HAMILTON Primary Care Physician Marck Chung Attending Clinician Tung HAMILTON, Jae Attending Clinician Marichuy HAMILTON Attending Clinician Toni Maldonado MD Attending Clinician Barber Attending Clinician Unavailable Janice Guevara MD Attending Clinician Edwin HAMILTON Attending Clinician Varsha HAMILTON, [facility] Attending Clinician Ricky HOBSON Attending Clinician Unavailable MARICHUY Admitting Clinician Unavailable EDWIN Admitting Clinician Unavailable Payers Payer Name Policy Type Policy Effective Date Expiration Date Sour ce Number BCBSBCBS CHOICE [id number] 2019 [place] PPO/FEDERAL 00:00:00 Rastafarian EMPL [id number] 2019Mary Ann ntPPO Problems Condition Condition Condition Status Onset Resolution Last Treating Co mments Source Name Details Category Date Date Treatment Clinician Date Lower Lower Disease Active 2019-04 [place] extremity extremity 0-28 Meth tanvi weakness weakness 00:00: st 00 Debility Debility Disease Active 2019-04 [place] 0-26 Methodi 00:00: st 00 Weakness Weakness Disease Active 2019-04 [place] 0-24 Methodi 00:00: st 00 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 [place] al al 0-24 Methodi dysfunctio dysfunctio 00:00: st n n 00 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 [place] neuritis neuritis 0-15 Method i 00:00: st 00 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, leukemia, 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 (disorder) Active Problem 04/14/2020 [facility] History of Problem Active 2020-04-14 M emoria - * 01:39:45 l leukemia History Rupal nn (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) (context-d ependent category) Active Problem 04/14/2020 [facility] Headache Problem Active 2020-04-14 Mem oria (finding) 01:39:45 l Headache Murray n (finding) Active Problem 04/14/2020 [facility] Simple Problem Active 2020-04-14 Memor ia obesity 01:39:45 l (disorder) Simple Herm zay obesity (disorder) Active Problem 04/14/2020 [facility] Backache Problem Active 2020-04-14 Mem oria (finding) 01:39:45 l Backache Murray n (finding) Active Problem 04/14/2020 [facility] Hemiplegia Problem Active 2020-04-14 M emoria (disorder) 01:39:45 l [place] Hemiplegia (disorder) Active Problem 04/14/2020 [facility] Visual Problem Active 2020-04-14 Memor ia disturbanc 01:39:45 l e Visual [place] (disorder) disturbanc e (disorder) Active Problem 04/14/2020 [facility] Disorienta Problem Active 2020-04-14 M emoria leon 01:39:45 l (finding) Ricardo Disorienta leon (finding) Active Problem 04/14/2020 [facility] Seizure Problem Active 2020-04-14 Unruly kieran disorder 01:39:45 l (disorder) Seizure Her sesay disorder (disorder) Active Problem 04/14/2020 [facility] Allergies, Adverse Reactions, Alerts Allergy Allergy Status Severity Reaction(s) Onset Inactive Treating Comm ents Source Name Type Date Date Clinician Cephalex [place]i Active Hives 2019-04 [place] in ty to 0-16 Methodi adverse 00:00: st reaction 00 s to drug Latex Propensi Active Hives 2019-04 [place] ty to 0-16 Methodi adverse 00:00: st reaction 00 s to drug Ondanset [place] Active Headache 2019-04 [place] mikey Hcl ty to 0-16 Methodi adverse 00:00: st reaction 00 s to drug Gadobutr Propensi Active Other (See 2019-04 Vomiting1 [place] ol ty to Comments) 0-15 Method i adverse 00:00: 8:30pm- st reaction 00 Per s to patient drug denied shortness of breath, hives, itchiness . Only nauseous/ vomiting as a side effect after administr ation of Gadavist. Cephalex Adverse Active Info Not [facility] Reaction [facility] Zofran Adverse Active Info Not [facility] Reaction Available [facility] cephalex cephalex Active Memori a in in l [place] Latex Latex Active Memoria l [place] Gadavist Gadavist Active Memori a l Ricardo Family History Family Member Diagnosis Comments Start Date Stop Date Source Paternal grandfather Kidney cancer Victor Manuel Shah Timothy Social History Social Habit Start Date Stop Date Quantity Comments Source Sex Assigned At [facility] ethodist Tobacco use and 2020-03-08 2020-03-08 Never used [facility] ethodist exposure 00:00:00 00:00:00 Alcohol intake 2020-03-08 2020-03-08 Current drinker Kaylen Rastafarian 00:00:00 00:00:00 of alcohol (finding) Alcohol Comment 2020-02-03 2020-02-03 occ drinker [facility] 00:00:00 00:00:00 Social History 2018-10-01 2018-10-01 [facility] 13:53:53 13:53:53 Smoking Status Start Date Stop Date Source [facility] Ordered Filled Start Stop Current [...] Yes 0 Memoria 1-10 Refill(s) l 18:04: [place] 00 metoclopram 2019-04 Yes 1{tbl} Take 1 [place] dung HCl 1-10 tablet by Methodi (REGLAN 00:00: mouth as st ORAL) 00 needed. omeprazole 2019-04- No 20mg QD Take 1 [place] OTC 0-28 11-27 tablet (20 Methodi (PriLOSEC 00:00: 23:59 mg total) st OTC) 20 MG 00 :00 by mouth EC tablet daily for 30 days. metoclopram 2019-04- No 5mg [id number] Take 1 [place] dung 0-28 11-02 [id number] tablet (5 Met hodi (Reglan) 5 00:00: [...] it last week - unknown reason); [facility] 12[facility]18/19, [...] ~3 weeks ago - per patient) metoclopram 2019-04- No 5mg [id number] Take 1 [place] dung 0-20 - [id number] tablet (5 Met hodi (Reglan) 5 00:00: 00:00 3D mg total) s t MG tablet 00 :00 by mouth 3 (three) times a day as needed (nausea, vomiting) for up to 5 days. Vyvanse Vyvanse Yes Na Savage [address] [facility] [facility] 12[facility] 00:[facility]: morning Memoria 00 l [facility] oxcarbazepi Yes 300 mg = 1 Memoria ne 300 MG 9-06 tab, PO, l Oral Tablet 16:04: BID, # 180 [place] [Trileptal] 19 tab, 3 Refill(s), Pharmacy: [facility] #[id number] Yes 100 mg = 1 Memori a topiramate 9-06 cap, PO, l 100 MG 16:04: Daily, # Ricardo Extended 10 90 cap, 3 Release Refill(s), Capsule Pharmacy: [Trokendi] [facility] #[id number] 24 HR No 100 mg = 1 Memori a topiramate 9-04 cap, PO, l 100 MG 18:31: Daily, X [place] Extended 05 30 day, # Release 30 cap, 3 Capsule Refill(s), [Trokendi] Pharmacy: [facility] oxcarbazepi No 300 mg = 1 Memoria ne 300 MG 9-04 tab, PO, l Oral Tablet 18:31: BID, X 30 H ermann [Trileptal] 02 day, # 60 tab, 3 Refill(s), Pharmacy: [facility] lisdexamfet Yes 30 mg = 1 M emoria amine 8-09 cap, PO, l dimesylate 16:20: QAM, # 30 He rmann 30 MG Oral 00 cap, 0 Capsule Refill(s) [Vyvanse] omeprazole Yes 20 mg = 1 Me moria 20 mg oral 7-17 cap, PO, l delayed 00:27: Daily, # Murray n release 00 30 cap, 2 capsule Refill(s), Pharmacy: [facility] oxcarbazepi Yes 300 mg = 1 Memoria ne 300 MG 7-03 tab, PO, l Oral Tablet 18:01: BID, # 60 H ermann [Trileptal] 00 tab, 2 Refill(s), Pharmacy: [facility] 24 HR Yes 100 mg = 1 Memori a topiramate 6-28 cap, PO, l 100 MG 14:50: Daily, # [place] Extended 00 30 cap, 3 Release Refill(s), Capsule Pharmacy: [Trokendi] [facility] topiramate Yes 25 mg = 1 Me moria 25 MG Oral 6-14 tab, PO, l Tablet 23:33: BID, # 60 Murray n [Topamax] 00 tab, 2 Refill(s), Pharmacy: [facility] Phenytoin Yes 200 mg = 2 Me moria sodium 100 6-13 cap, PO, l MG Extended 13:57: BID, # 120 Ricardo Release 00 cap, 3 Capsule Refill(s), [Dilantin] Pharmacy: [facility] Alprazolam Yes 0.5 mg = 1 M emoria 0.5 MG Oral 6-13 tab, PO, l Tablet 13:28: TID, 0 [place] [Xanax] 00 Refill(s) Zyrtec Yes Daily, 0 Memoria 6-13 Refill(s) l 13:28: [place] 00 Phenytoin No 100 mg = 1 Me moria sodium 100 6-13 cap, PO, l MG Extended 13:26: TID, # 90 H ermann Release 00 cap, 1 Capsule Refill(s) [Dilantin] VYVANSE 40 Yes 1{tbl} Take 1 MD mg capsule 9-19 tablet by Andrea rso 00:00: mouth n 00 daily. Immunizations Ordered Immunization Filled Immunization Date Status Commen ts Source Name Name FLUCELVAX QUAD PF 2020-02-06 Completed [place] 00:00:00 Rastafarian Influenza Split Completed MD Charles on 00:00:00 Vital Signs Vital Name Observation Time Observation Value Comments Source Systolic (mm Hg) 2020-03-29 20:19:00 Unruly rial [place] Diastolic (mm Hg) 2020-03-29 20:19:00 Mem orial Ricardo Heart Rate 2020-03-29 20:19:00 Memorial Ricardo Respitory Rate 2020-03-29 20:19:00 Memori al Ricardo Height 2020-03-29 20:19:00 167.64 cm Memorial Ricardo Weight 2020-03-29 20:19:00 [facility] [place] BMI Calculated 2020-03-29 20:19:00 Memori al Ricardo Body height 2020-03-08 12:47:00 167.6 cm [place] Rastafarian Body weight 2020-03-08 12:47:00 99.791 kg [place] Rastafarian BMI 2020-03-08 12:47:00 35.51 kg/m2 [place] Rastafarian Systolic (mm Hg) 2020-02-29 17:31:00 Unruly rial Ricardo Diastolic (mm Hg) 2020-02-29 17:31:00 Mem orial Ricardo Heart Rate 2020-02-29 17:31:00 Memorial Ricardo Respitory Rate 2020-02-29 17:31:00 Memori al Ricardo Height 2020-02-29 17:31:00 167.64 cm Memorial Ricardo Weight 2020-02-29 17:31:00 [facility] [place] BMI Calculated 2020-02-29 17:31:00 Memori al Ricardo Systolic blood 2020-02-16 08:37:35 128 mm[Hg] [place] Rastafarian pressure Diastolic blood 2020-02-16 08:37:35 72 mm[Hg] Yurit on Rastafarian pressure Heart rate 2020-02-16 08:37:35 87 /min [place] Rastafarian Body temperature 2020-02-16 08:37:35 36.78 Staci [place] Rastafarian Respiratory rate 2020-02-16 08:37:35 18 /min [place] Rastafarian Oxygen saturation in 2020-02-16 08:37:35 95 /min [place] Rastafarian Arterial blood by Pulse oximetry Systolic (mm Hg) 2018-12-23 18:03:00 Unruly rial [place] Diastolic (mm Hg) 2018-12-23 18:03:00 Mem orial [place] Heart Rate 2018-12-23 18:03:00 [facility] [place] Respitory Rate 2018-12-23 18:03:00 Memori al Ricardo Height 2018-12-23 18:03:00 167.64 cm Memorial Ricardo Weight 2018-12-23 18:03:00 Memorial Ricardo BMI Calculated 2018-12-23 18:03:00 Memori al [place] BMI Calculated 2018-11-27 15:59:00 Memori al [place] Weight 2018-11-27 15:59:00 [facility] [place] Height 2018-11-27 15:59:00 167.64 cm Memorial Ricardo Heart Rate 2018-11-27 15:59:00 [facility] [place] Respitory Rate 2018-11-27 15:59:00 Memori al Ricardo Systolic (mm Hg) 2018-11-27 15:59:00 Unruly rial Ricardo Diastolic (mm Hg) 2018-11-27 15:59:00 Mem orial Ricardo BMI Calculated 2018-10-16 14:19:00 Memori al [place] Weight 2018-10-16 14:19:00 [facility] [place] Height 2018-10-16 14:19:00 167.64 cm [facility] [place] Heart Rate 2018-10-16 14:19:00 Memorial Ricardo Respitory Rate 2018-10-16 14:19:00 Memori al Ricardo Systolic (mm Hg) 2018-10-16 14:19:00 Unruly rial [place] Diastolic (mm Hg) 2018-10-16 14:19:00 Mem orial Ricardo BMI Calculated 2018-10-01 13:18:00 Memori al [place] Weight 2018-10-01 13:18:00 Memorial Ricardo Height 2018-10-01 13:18:00 167.64 cm Memorial Ricardo Respitory Rate 2018-10-01 13:18:00 Memori al Ricardo Heart Rate 2018-10-01 13:18:00 Memorial Ricardo Systolic (mm Hg) 2018-10-01 13:18:00 Unruly rial Ricardo Diastolic (mm Hg) 2018-10-01 13:18:00 Mem orial Ricardo Procedures Procedure Date / Time Performing Clinician Source Performed DURABLE MEDICAL EQUIPMENT 2020-02-16 10:31:42 Blessing Maldonado METABOLIC PANEL 2020-02-16 05:10:00 Sharlene Julian on Rastafarian Mehran ESTIMATED GFR 2020-02-16 05:10:00 [facility]QUIP[facility] 2020-02-15 15:56:49 Jude Caleb FrancesGrazyna buchanan Rastafarian EMG 2020-02-15 12:46:48 Fior Batista Dc thodist [place] [facility] COMPLETE BLD COUNT 2020-02-15 05:00:00 Eber Castro [...] 04:00:00 Eber Castro ESTIMATED GFR 2020-02-13 04:00:00 OnvarunuShira Meth odist HC COMPLETE BLD COUNT 2020-02-12 10:18:00 Eber Castro W/AUTO DIFF BASIC METABOLIC PANEL 2020-02-12 08:00:00 Eber Castro ESTIMATED GFR 2020-02-12 08:00:00 OnvarunuShira Meth odist VENIPUNC NEED PHYS 2020-02-08 10:39:11 Familia Colon SKILL,DX OR RX US DUPLEX VENOUS UPPER [...] Givens CSF CULTURE 2020-02-04 09:56:00 Andressa Givens thodist CRYPTOCOCCAL ANTIGEN 2020-02-04 09:56:00 Andressa Givens on Rastafarian SCREEN GRAM STAIN 2020-02-04 09:56:00 Kim Guevara CSF CELL COUNT WITH 2020-02-04 09:56:00 Andressa Givens n Rastafarian DIFFERENTIAL GLUCOSE LEVEL, CSF 2020-02-04 09:56:00 Andressa Givens IGG SYNTHESIS RATE STUDY 2020-02-04 09:56:00 Andressa Givens VDRL, CSF SCREEN 2020-02-04 09:56:00 Andressa Givens ethodi LYME DISEASE REFLEXIVE 2020-02-04 09:56:00 Andressa Givens Rastafarian PANEL, CSF CYTOMEGALOVIRUS BY PCR 2020-02-04 09:56:00 [...] BLD COUNT 2020-02-04 01:40:00 Aldo Pineda on Rastafarian W/AUTO DIFF BASIC METABOLIC PANEL 2020-02-04 01:40:00 Aldo Pineda Rastafarian ESTIMATED GFR 2020-02-04 01:40:00 Kim Guevara URINE [...] CORTISOL LEVEL, RANDOM 2020-02-03 18:25:00 Manan Hernández [place] Rastafarian SEDIMENTATION RATE 2020-02-03 18:25:00 Manan Hernández RHEUMATOID FACTOR 2020-02-03 18:25:00 Manan Hernández THYROID STIMULATING 2020-02-03 18:25:00 Manan Hernández HORMONE T4, FREE 2020-02-03 18:25:00 Manan Hernández T3 2020-02-03 18:25:00 Manan Hernández SYPHILIS TOTAL ANTIBODY 2020-02-03 18:25:00 Manan Hernández HIV AG/AB COMBINATION 2020-02-03 18:25:00 Manan Hernández [place] Rastafarian VITAMIN D 25 HYDROXY LEVEL 2020-02-03 18:25:00 Manan Hernández B. BURGDORFERI ABS TOTAL, 2020-02-03 18:25:00 Manan Hernández SERUM CT HEAD WO CONTRAST 2020-02-03 16:14:55 Manan Hernández HCG QUANTITATIVE, SERUM 2020-02-03 14:27:00 Manan Hernández Tubal ligation [facility] Plan of Care Planned Activity Planned Date Details Comments Source Future Scheduled 2023-02-02 Screening for [facility] Dc thodist Test 00:00:00 malignant neoplasm of cervix (procedure) [code = 284066590] Future Scheduled 2002 COVID-19 VACCINE [facility]kins Rastafarian Test 00:00:00 (#1) [code = COVID-19 VACCINE (#1)] Encounters Start End Encounter Admission Attending Care Care Encounter Source Date/Time Date/Time Type Type Clinicians Facility Department ID 2020-04-11 2020-04-11 Outpatient ASIF Chung MABEL [id number] 10:00:00 23:59:59 David Acharya 2020-03-29 2020-03-29 Outpatient Juliet, FAYEMISCHER MISCHER [id number] 14:00:00 23:59:59 David 08 Marck 2020-03-22 2020-03-22 Outpatient [facility]LMLC [facility] [id number] [facility] 2020-03-16 2020-03-16 Outpatient STLMLC STLMLC [id number] [facility] 2020-03-08 2020-03-08 Outpatient CHAVO BULL [facility] [id number] [place] 00:00:00 00:00:[address] 2020-03-07 2020-03-07 Outpatient STLMLC STLMLC [id number] [facility] 2020-02-29 2020-02-29 [id number] 11:15:00 23:59:59 David 07 Marck 2020-02-21 2020-02-21 Outpatient STLMLC STLMLC [id number] [facility] 2020-02-17 2020-02-17 Outpatient STLMLC [facility]LMLC [id number] [facility] 2020-02-12 2020-02-16 Inpatient KEVIN [facility] [id number] [place] 00:00:00 00:00:00 BLESSING [address] 2020-02-15 2020-02-15 Outpatient Juliet, MISCHER MISCHER [id number] 09:15:00 09:15:00 David 06 [facility] 2020-02-09 2020-02-09 Outpatient STLMLC STLMLC [id number] [facility] 2020-02-03 2020-02-08 Inpatient VARSHA, [facility] [id number] [place] 00:00:00 00:00:00 MICHAEL [address] 2020-01-17 2020-01-17 Outpatient STLMLC STLMLC [id number] [facility]00 [facility] 2019-12-14 2019-12-14 [facility] [id number] [facility] 10:48:00 10:48:00 t [facility] 2019-11-23 2019-11-23 [facility] [id number] 09:00:00 09:00:00 t [facility] 2019-11-23 2019-11-23 [facility] [id number] 08:05:00 08:05:00 t [facility] [employer] [facility] 2019-10-15 2019-10-15 [facility] [id number] 08:44:00 08:44:00 t [facility] 2019-09-07 2019-09-07 [facility] [id number] 11:56:00 11:56:00 t [facility] 80/20 [employer] Bagel Nash [facility] 2019-08-13 2019-08-13 [facility] [id number] 10:20:00 10:20:00 t [facility] 2019-08-12 2019-08-12 [facility] [id number] 09:49:00 09:49:00 t [facility] 2019-06-15 2019-06-15 [facility] [id number] 15:24:00 15:24:00 t [facility] 2019-06-09 2019-06-09 [facility] [id number] 08:40:00 08:40:00 t [facility] Bagel Nash mGaadi Bagel Nash [facility] 2019-06-03 2019-06-03 [facility] [id number] 10:52:00 10:52:[address] Luke s - Drive [facility] 2019-05-28 2019-05-28 [facility] [id number] 16:20:00 16:20:[address] Luke s - Drive [facility] 2019-05-21 2019-05-22 Outpatient MISCHER MISCHER [id number] 14:44:00 23:59:59 00 2019-04-28 2019-04-28 [id number] 13:00:00 13:00:00 David Rick Marck 2019-01-01 2019-01-01 [facility] [id number] 15:32:00 15:32:00 t [place] [employer] Luke s - Drive [facility] 2018-12-31 2018-12-31 [facility] [id number] 09:55:00 09:55:00 [address] [place] [address] Luke s - Drive [facility] 2018-12-30 2018-12-30 [facility] [id number] 13:25:00 13:25:00 t [place] [employer] Luke s - Drive [facility] 2018-12-30 2018-12-30 [facility] [id number] 08:00:00 08:00:00 [address] [place] [address] Luke s - Drive [facility] 2018-12-29 2018-12-29 [facility] [id number] 09:42:00 09:42:00 [address] Luke s - Drive [facility] 2018-12-23 2018-12-23 Outpatient DEDE ChungSCHBINU MISCHER [id number] 13:15:00 23:59:59 David Catrnia Acharya 2018-12-04 2018-12-04 [facility] [id number] 16:20:00 16:20:[address] Luke s - Drive [facility] Out[facility] ent Clinics 2018-11-30 2018-11-30 [facility] [id number] 10:08:00 10:08:00 t [facility] Outpati ent Clinics 2018-11-27 2018-11-27 Outpatient DEDE ChungSCHER MISCHER [id number] 10:45:00 23:59:59 David 03 [facility] 2018-11-27 2018-11-27 [facility] [id number] 13:00:00 13:00:00 t [facility] Out[facility] ent Clinics 2018-10-29 2018-10-29 [facility] [id number] 10:40:00 10:40:00 t [facility] Clin[facility] 2018-10-16 2018-10-16 Outpatient DEDE ChungSCHER MISCHER [id number] 09:00:00 23:59:59 David 02 [facility] 2018-10-02 2018-10-02 Outpatient DEDE ChungSCHER MISCHER [id number] 15:00:00 23:59:59 David 01 [facility] 2018-10-01 2018-10-01 Outpatient DEDE ChungSCHER MISCHER [id number] 08:15:00 23:59:59 David 00 Marck 2018-09-30 2018-09-30 [facility] [id number] 13:00:00 13:00:00 t [facility] Outpat[facility] ent Clinics 2018-08-31 2018-08-31 [facility] [id number] 11:00:00 11:00:00 t [facility] 2018-07-27 2018-07-27 [facility] [id number] 13:54:00 13:54:00 t [facility] 2018-07-23 2018-07-23 [facility] [id number] 08:53:00 08:53:00 [facility] Outpat[facility] Clinics 2018-07-23 2018-07-23 [facility] [id number] [facility] 08:15:00 08:15:00 [facility] Clinics 2018-06-22 2018-06-22 [facility] [id number] [facility] 10:30:00 10:30:00 [facility] Out[facility] Clinics 2018-05-04 2018-05-04 [facility] [id number] 12:00:00 12:00:00 [facility] 2018-04-02 2018-04-02 [facility] [id number] [facility] 09:00:00 09:00:00 [facility] Results Test Description Test Time Test Comments Results Result Comments Source AFB culture 2020-03-17 12:13:05 Test Item Value Reference Range Interpretation Comme nts AFB culture isolate No growth after 6 weeks of Specimen InformationSpecimen (test code = 543-9) incubation. Source: CSF (Spinal Fluid)Specimen Site: CSF (spinal fluid) Turner Hurtngus [id number] 12:15:08 Test Item Value Reference Range Interpretation Comments Fungus culture No growth Specimen isolate (test after 4 weeks InformationSp ecimen code = 1441) of Source: CSF (Sp inal incubation. Fluid)Specimen Site: CSF (spinal fluid) Turner Whatleyist3 in 1 [id number] 11:07:52 Test Item Value Reference Range Interpretation Comments SUPPLIER NAME (test XMED Oxygen and code = 6415) Medical SUPPLIER PHONE (test [phone] code = 6416) ORDER STATUS (test code Delivery Successful = 6417) DELIVERY NOTE (test code = 6419) REQUESTED DELIVEY DATE 02/16/2020 (test code = 6420) ITEM DESCRIPTION (test 3 in 1 Commode Qty : 1 code = 6423) ACTUAL DELIVERY DATE 02/16/2020 (test code = 6422) [place] [facility] [id number] 06:42:23 Test Item Value Reference Range Interpretation Comments Sodium (test code = 2951-2) 138 135- 148 mEq/L Potassium (test code = 2823-3) 4.1 3.5- 5.0 mEq/L Chloride (test code = 2075-0) 103 98- 112 mEq/L CO2 (test code = 8-9) 21 24- 31 mEq/L L Anion gap (test code = 59256-7) 14@ANIO 7- 15 mEq/L BUN (test code = 3094-0) 14 mg/dL 6-20 Creatinine (test code = 2160-0) 0.81 mg/dL 0.5-0.9 Glucose (test code = 2345-7) 110 mg/dL 65-99 H Calcium (test code = 76102-1) 8.6 mg/dL 8.3-10.2 Lab Interpretation (test code = Abnormal 99888-0) [facility] MethodistEstimated [id number] 06:42:23 Test Item Value Reference Range Interpretation Comments Estimated GFR (test >=90 mL/min/1.73 m2 Caterg ory Units code = 5488) InterpretationG 1 >=90 Normal or highG2 60-89 Mildly iqawffmvyM5s 45-59 Mildly to mode rately olraauidbB9g 30-44 Moderately to severely decreasedG4 15-29 Severely decre asedG5 <15 Kidn ey failureThe eGFR was calculated usin g the Chronic Kidney Disease Epidemiology Co llaboration (CKD-EPI) equat ion. Interpretation is based on recommendations of the National Kidney Foundation-Kidn ey Disease Outcomes Qualit y Initiative (NKF-KDOQI) pub lished in 2014. [facility] MethodistEMG General Vytgtxu3693-42-43 13:23:11Electromyogram and NCS ReportN[facility] Neurological Xzqqsajyk4726Kupk,WP11,Turner,[id number]: F : Patient: Snow Argueta Physician: Nicolasa Walters MDAge: 34 Test Date: [...] Site: Wrist Pk Lat (ms) Amp (uV)Stim Lhzy3yi dig 2.5 21.0 Sensory Nerve Study Right [...] Tibial Nerve Left Tibial Nerve Right Tibial NerveHouston MethodistVisual evoked potentials 2020-02-15 10:07:24 PATTERN REVERSAL VISUAL EVOKED POTENTIAL REPORT Patient Name: Snow Argueta Date of : 1985 Gender: female Date of Procedure: 02/14/2020 IndicationVision loss FindingsPattern reversal visual evoked potentials were obtained following independent left and right full field monocularstimulation. XseH699 absolute latencies were 99.8 msec and 102.6 msec following independent left andright eye stimulation. All interpeak latencies and waveform morphologies were normal. ImpressionThisis a normal study. ICD10 Code/Diagnosis: N98Qeujgdy MethodistCBC with platelet and cvlbukovgoua9131-17-58 05:36:22 Test Item Value Reference Range Interpretation Comments WBC (test code = 12014-5) 8.53 4.50- 11.00 k/uL RBC (test code = 21223-5) 4.05 m/uL 4.2-5.5 L HGB (test code = 718-7) 12.0 g/dL 12-16 HCT (test code = 4544-3) 36.1 % 37-47 L MCV (test code = 787-2) 89.1 fL 82-100 MCH (test code = 785-6) 29.6 pg 27-34 MCHC (test code = 786-4) 33.2 g/dL 31-37 RDW - SD (test code = 40.5 fL 37-55 91053-1) MPV (test code = 19432-0) 11.9 fL 8.8-13.2 Platelet count (test code 171 150- 400 k/uL = 02710-5) Nucleated RBC (test code 0.00 /100 WBC = 44137-6) Neutrophils (test code = 64.6 % 39-69 62420-5) Lymphocytes (test code = 26.0 % 25-45 23360-2) Monocytes (test code = 6.1 % 0-10 26494-8) Eosinophils (test code = 1.8 % 0-5 08152-2) Basophils (test code = 0.4 % 0-1 76627-3) Immature granulocytes 1.1 % 0-1 H "Immat ure (test code = 69788-8) granul ocytes" (promyelocytes, myelocytes, metamyelocytes) Lab Interpretation (test Abnormal code = 24293-3) [facility] Lumbar Spine W Wo Reggkuag3231-44-32 11:16:59Hm Interface, Radiology Results 02/13/2020 11:20 AM [...] on the right. Recommend correlation to radiculopathy distribution.[facility]-[id number] MethodistMRI Brain Venogram 2020-02-13 09:57:03Hm Interface, Radiology Results - 02/13/2020 10:00 AM CDTEXAM: MRI BRAIN VENOGRAMCLINICAL HISTORY: Headache chronic normal neuro examTECHNIQUE: Head MR venogram using 2D pwyz-dr-kzdxpf technique with multi-planar MIP and 3D reconstruction.COMPARISON: [...] no definite evidence of dural sinus venous thrombosis.[id number] MethodistCytomegalovirus by PCR 2020-02-11 15:29:57 Test Item Value Reference Range Interpretation Comments Cytomegalovirus by PCR Not-Detected Not-Detected (test code = 5000-5) IU/mL Cytomegalovirus by PCR See link below Delta e Number: (test code = 1089) for [facility] Lab [id number] Report Argyle MethodistAngiotensin converting enzyme, [id number] 19:56:01 Test Item Value Reference Range Interpretation Comments Angiotensin 0.6 U/L 0-2.5 This test was d eveloped converting enzyme, and its p erformance CSF (test code = characteris tics 94723-5) determined by [facility]. T he U.S. Food and Drug Administration has not approved or kole ared this test; however, FDA clearance or ap proval is not currently r equired for clinical us e. The results are not intended to be used as t he sole means for clini conrad diagnosis or pa tient management decisions.Perfo rmed By: BENITA [address] [place] [id number] aboratory Director: Nai Rushing MD [facility]landWest Nile virus antibody panel, [id number] 17:17:47 Test Item Value Reference Range Interpretation Comments West Nile IgG, CSF 0.09 <=1.29 IV INTERPRET YOLANDA INFORMATION: (test code = [place] [address]-0) DARSHANA, CSF 1.2 9 IV or less [...] of the Flaviviridae fa priscila, such as [place] encep halitis virus, show extensive cross-reactivit y [...] developed and c haracteristics determined by [facility]. S ee Compliance Statement B: ResiModel/ West Nile IgM, CSF 0.02 <=0.89 IV INTERPRET YOLANDA INFORMATION: (test code = [place] [address]-3) DARSHANA, CSF0.89 IV or less ...... Negative [...] of the Flaviviridae fa priscila, such as [place] encep halitis virus, show extensive cross-reactivit y [...] developed and c haracteristics determined by A [facility]. S ee Compliance Statement B: [employer] erformed By: [facility] [address] [place], [place] [address]Dirqbmkxqi Director: Nai Rushing MD [facility] MethodistPrscellaneous referral iuij3188-98-45 08:48:03 Test Item Value Reference Range Interpretation Comments [facility] test name JCV QUANT PCR (test code = 2566) [facility] test result see note JCV qPCR (C SF) TEST (test code = RESULT UNIT 2336) REF RA NGE JCV qPCR Not De tected copies/mL Not Detected Assay Range: 72 copies/mL to 1.00E+08 copies/mL The limit of quantitation (L OQ) is 72 copies/mL. BETH jamin bernardo DNA detected below the LOQ will be reporte d as Detected:<72 co pies/mL. This test was d camryn and its perform ance characteristics determined by [employer] [facility]. It olson s not been cleared or approved by the U.S. Marni d and Drug Administra tion. Results should be used in conjunction with clinical findin gs, and should not form the sole basis for a socorro gnosis or treatment decis ion. Performed at: [facility] - [address] [place], [facility], aerobic & yvbojfojg8750-09-05 05:33:06 Test Item Value Reference Range Interpretation Comments Blood culture No growth Specimen isolate (test after 5 days InformationSpe cimen code = 600-7) of Source: BloodS pecimen incubation. Site: Antecubit al, right Argyle MethodistLyme disease reflexive panel, [id number] 23:48:04 Test Item Value Reference Range Interpretation Comments B. burgdorferi Abs 0.08 <=0.99 When the Borrelia DARSHANA, CSF (test code burgdo rferi Abs, Total by = 33533-7) DARSHANA result is negative, no further test [...] days. Test developed and characteristics determined by [employer]ARETT zulilyalen stone. See Compliance Stat ement B: [employer]/[facility] erformed By: BENITA [address] [place], [place] [address]Goftmpu ory Director: Nai Rushing MD [place] MethodistVENIPUNC NEED PHYS SKILL,DX OR [id number] 10:39:11CFamilia hickey RN 02/08/2020 10:40 AMMidline Date/Time: [...] (mm): 5 Indication: Known group home IV therapy Location: Left basilic Device Type:Non-valved Catheter Lumen(s): Single lumen Catheter size: 3 Fr Catheter to vein ratio: 24%MidLine Characteristics: Catheter Brand: SL PROVENA MIDLINE Internal Catheter Length (cm): 12 TotalCatheter Length (cm): 12 Catheter Lot Number: [id number] Catheter Expiration Date: 2Procedure details: Landmarks identified: [...] Patient tolerance of procedure: Tolerated well, no immediatecomplicationsArgyle MethodistVDRL, CSF qllcvj0968-79-04 02:23:37 Test Item Value Reference Range Interpretation Comments VDRL, CSF screen (test code = Non-reactive Non-reactive 3046) [facility] duplex venous upper yzdenqreg4509-35-28 22:03:00Interface, Radiology Results In - 02/07/2020 10:03 PM CDT Vascular Ultrasound Laboratory Upper Extremity Venous [address] [place] [address] Pat.Name: SNOW ARGUETA Pat.ID: [id number] St.Date: 02/07/2020 Refer.MD: MICHAEL MADDOX MD Exam Time: 4:33:00 PM Study Type:UE Venous Height: 66in Weight: 220lb BSA: 2.08 m2 Age: 7 1985,34Y Sex: FEMALE Sonogrphr: Olson Vi, RVT Pat. Stat.:Inpatient Room: [address] Tape Vol: HV, CPT - 4: 75852 Echo Event ID:[id number] Order ID: [id number] Reason for Study:Right arm pain and swelling. [...] FINDINGS:-- Signed 02/07/2020 10:03 Yessi Obrien MD, [facility] MethodistOligoclonal banding, [id number] 15:44:13 Test Item Value Reference Range Interpretation Comments Protein, CSF (test code 24 mg/dL = 2880-3) Prealbumin, CSF (%) 6.4 % 3.5-11.1 (test code = 42246-1) Albumin, CSF (test code 66.1 % 40.8-66.2 = 59906-4) Alpha 1, CSF (%) (test 2.4 % 2.3-6.4 code = 43518-0) Alpha 2, CSF (%) (test 6.1 % 6.1-12.6 code = 43716-6) Beta, CSF (%) (test 13.1 % 11.7-24.1 code = 74991-6) Gamma, CSF (%) (test 5.9 % 5.6-12.2 code = 26488-3) CSF extended See Comment An essentially interpretation (test normal CSF protein code = 29134-1) study. No oligoclonal ban ds seen. CSF interpretation See Comment Miguel Boyd, PhD; (test code = 1163) Fam nettles MD [facility] MethodistEnterovirus by [id number] 15:38:15 Test Item Value Reference Range Interpretation Comments Enterovirus PCR (test See link below Not-Detected Case Number: code = 68764-0) for PDF Lab [id number] Report Turner WorleyEpstein Bates Virus (EBV) by [id number] 15:13:17 Test Item Value Reference Range Interpretation Comments Albert Bates Not-Detected Not-Detected virus, PCR (test copies/mL code = 5005-4) Albert Bates See link below Case Number: virus, PCR (test for PDF Lab [id number] code = 1340) Report Turner WhatleyistVaricella zoster by [id number] 14:54:16 Test Item Value Reference Range Interpretation Comments VZV result (test Not-Detected Not-Detected code = 90410-8) copies/mL Varicella zoster, See link below Case Num rupal: pcr (test code = for PDF Lab [id number] 2 124) Report Turner WhatleyistCSF gfchvvt7541-26-59 14:08:32 Test Item Value Reference Range Interpretation Comments CSF culture No growth Specimen isolate (test after 3 days. InformationSp ecimen code = 606-4) Source: CSF (S naseem Fluid)Specimen Site: CSF (spinal fluid) Turner MethodistFlow cytometry lodzftegok9752-79-62 09:52:18 Test Item Value Reference Range Interpretation Comments Case number (test code = [id number]) Flow cytometry evaluation See link below for (test code = 5301990) PDF Lab Report Turner MethodginetteVENIPUNC NEED PHYS SKILL,DX OR [id number] 09:18:07Javier Kolb RN 02/07/2020 9:21 AMMidline Date/Time: [...] to vein ratio: 41%MidLine Characteristics: Catheter Brand: ANGIOTillster External Catheter Length (cm): 0 Internal Catheter Length (cm): 12 Total Catheter Length (cm): 12 Catheter Lot Number: [id number] Catheter Expiration Date: 01/18/2021rocedure details: Landmarks identified: yes Ultrasound guidance: yes [...] tolerance of procedure: Tolerated well, no immediate complicationsHouwestborough state hospital MethodistB. burgdorferi Abs total, puzlb5511-29-19 08:01:42 Test Item Value Reference Range Interpretation [...] tibody to B. burgdorferi detected.Perfor med By: [facility] [address] [place], [place] [address]U aboratory Director: MD Turner Milian MethodistECG 12 djgq8758-66-65 12:49:19 Test Item Value Reference Range Interpretation Comments Ventricular rate (test 78 code = 253) Atrial rate (test code 78 = 255) AK interval (test code 144 = 266) QRSD [...] of 04-FEB-2020 04:50,-No significant change was found- [facility] MethodistXR Chest 1 Vw Luzarmse9092-84-64 22:09:52Hm Interface, Radiology Results Incoming - 02/05/2020 10:12 PM CDTEXAMINATION: XR CHEST 1 VW PORTABLECLINICAL HISTORY: 34 years Female chest pressure on exertionCOMPARISON: None.IMPRESSION:No acute cardiopulmonary disease.FINDINGS:The cardiomediastinal silhouette, lungs, and regional skeletal structures are within normal limits for age. [facility]-RX58EGOAFvzehrx MethodistHerpes simplex virus by [id number] 20:12:15 Test Item Value Reference Range Interpretation Comments Herpes virus, PCR Not-Detected Not-Detected (test code = 96759-9) Herpes virus, PCR See link below Case Num rupal: (test code = 1523) for PDF Lab [id number] Report [place] MethodistCytology (non-gynecological) xfbpayp5903-29-44 18:15:16 Test Item Value Reference Range Interpretation Comments Case number (test code = [id number]) Cytology See link below for (non-gynecological) PDF Lab Report report (test code = 1178) Result status (test code This is Final Report = [id number]) for [id number] [place] MethodistCryptococcal antigen, wsyfhh5575-12-14 17:47:33 Test Item Value Reference Interpretation Comments Range Cryptococcal Ag Negative - No Specimen (test code = Cryptococcus InformationSpec imen 9820-2) antigen detected. Source: CS F (Spinal Fluid)Specimen Site: CSF (spinal flu id) [place] VbugcrvusMBA0988-11-60 13:52:17 Test Item Value Reference Range Interpretation Comments ELMER screen (test Negative Negative Test perfor med using NOVA code = 550) Lite DAPI ELMER k it (Indirect Immunofluoresce nce Assay) for Anti-Nuclea r Antibody on [employer] QUANTA-Ly ser 160 Analyzer. [place] MethodginetteCSF cell count with firqdyudixeu9508-70-84 13:21:52 Test Item Value Reference Range Interpretation Comments Color, CSF (test code = Colorless 66008-3) Appearance, CSF (test Clear Correc leon result code = 80703-7) called to Maximiliano Mallory/Stefano T18 02/04/2020 13: 21 Corrected resul t; previously repo rted as Slightly haz y on 02/04/2020 at 1 1:19 by DH2 RBC, CSF (test code = 33 0- 1 /CMM H 19995-7) WBC, CSF (test code = 1 0- 5 /CMM 07267-4) CSF mononuclear cell 1/CMM (test code = 54635-2) Lab Interpretation (test Abnormal code = 82466-8) Turner WorleyIgG synthesis rate mjgzc3121-88-30 13:09:21 Test Item Value Reference Range Interpretation Comments IgG albumin ratio, SEE COMMENT 0.00-0.23 Footnote- -------- CSF (test code = 1588) IgG index, CSF SEE COMMENT 0.01-0.63 Footnote----- ---- (test code = 72731-0) IgG synthetic rate SEE COMMENT -9.90 - 3.30 mg-day Fo otnote--------- (test code = 21707-8) Q-albumin ratio, SEE COMMENT 2.00-7.50 Footnote--- ------ CSF (test code = 1756-6) IgG, CSF (test code SEE COMMENT 1-3 Footnote --------- = 2464-6) Albumin, CSF (test SEE COMMENT 10 Footnote- -------- code = 96784-3) IgG (test code = SEE COMMENT 700-1600 Footnote--- ------Cor 2465-3) rected result; previously repo rted as 852 on 02/03 at 12:58 by I/A PR Albumin, S (test SEE COMMENT 2202-5591 Footnote--- ------DUP code = 50598-9) LICATE ORDER.Corrected result; previou sly reported as 370 0.0 on 02/04/2020 a t 12:58 by I/AUT Turner MethodistGram nskpr7269-98-20 12:47:25 Test Item Value Reference Range Interpretation Comments Gram stain No WBC's or Specimen isolate (test organisms seen. Information Specimen code = 1469) Source: CSF (Sp inal Fluid)Specimen Site: CSF (spinal fluid) Argyle ChacortaistGlucose level, IPR9542-66-30 11:17:32 Test Item Value Reference Range Interpretation Comments Glucose, CSF (test code = 2342-4) 90 mg/dL 40-70 H Lab Interpretation (test code = Abnormal 74259-6) [facility] MethodistEEG (routine)2020-02-04 10:51:25EEG AWAKE AND ASLEEP Date of Service: 02/04/2020 Awake Recording: The occipital dominant rhythm is 10-11 Hz. 18-22 Hz activity is present in all regions. Sleep Recording: No epileptiform activity was recorded. Hyperventilation: No abnormality elicited. Photic Stimulation: No abnormality elicited. Impression The background activity is within the range of normal variation. No lateralized or epileptiform activity was recorded. ICD-10 Code: X951Gppvncx MethodistIR Lumbar Puncture by Radiology 2020-02-04 10:23:15Hm [...] lumbar puncture.Opening pressure was 21 cm of water.[facility]-[id number] MethodistCOVID-19 qualitative PCR 2020-02-04 05:24:14 Test Item Value Reference Range Interpretation Comments Interpretation (test Negative results do code = 8498143) not preclude 2019-nCoV infection and should not be used as the sole basis for treatment or other patient management decisions. Negative results must be combined with clinical observations, patient history, and epidemiological information. COVID-19 qualitative Not-Detected Not-Detected PCR result (test code = 20379-9) COVID-19 qualitative See link below for C ase Number: PCR (test code = PDF Lab Report [id number] 7070) [facility] MethodistUrinalysis screen and microscopy, with reflex to culture 2020-02-04 05:13:36 Test Item Value Reference Range Interpretation Comments Specimen site (test code = Clean catch 2721819) Color, UA (test code = 5778-6) Yellow Appearance, UA (test code = Clear 5767-9) Specific gravity, UA (test code = 1.036 1.001-1.035 H 5811-5) pH, UA (test code = 5803-2) 5.0 5.0-8.5 Protein, UA (test code = 32025-8) 1+ Negative A Glucose, UA (test code = 94236-6) 1+ Negative A Ketones, UA (test code = 2514-8) Negative Negative Bilirubin, UA (test code = Negative Negative 5770-3) Blood, UA (test code = 5794-3) Negative Negative Nitrite, UA (test code = 5802-4) Negative Negative Urobilinogen, UA (test code = <2.0 <2.0 00067-3) Leukocyte esterase, UA (test code Negative Negative = 5799-2) Epithelial cells, UA (test code = 2 /HPF 5787-7) WBC, UA (test code = 5821-4) <1 0- 4 /HPF RBC, UA (test code = 52452-0) None seen 0- 5 /HPF Bacteria, UA (test code = None seen None seen 84770-4) Yeast, UA (test code = 29975-9) Few A Yeast with pseudohyphae, UA (test None seen code = 48967-9) Hyaline casts, UA (test code = 4 /LPF 5796-8) Lab Interpretation (test code = Abnormal 23009-1) Turner Hinton drugs of abuse dvcild7809-07-31 03:10:50 Test Item Value Reference Interpretation Comments Range Amphetamine screen, Negative urine (test code = 3349-8) Barbiturate screen, Negative urine (test code = 3377-9) Benzodiazepine Negative screen, urine (test code = 3390-2) Cocaine screen, Negative urine (test code = 3397-7) Methadone Negative metabolite (EDDP), urine (test code = 28326-3) Opiates screen, Positive A urine (test code = 3879-4) Oxycodone screen, Negative urine (test code = 34014-4) Phencyclidine Negative screen, urine (test code = 3936-2) Tricyclic screen, Negative urine (test code = 25388-8) Cannabinoid screen, Negative Drug scr een minimum [...] ired. Lab Interpretation Abnormal (test code = 94304-9) Turner Hinton kpamnvr8099-01-46 02:50:08 Test Item Value Reference Range Interpretation Comments Urine culture (test SEE COMMENT Bacteriu kieran screen code = 0066275) negative. [facility] Thoracic Spine W Rjatehqr8430-79-29 22:38:25Hm Interface, Radiology Results 02/03/2020 10:41 PM [...] paracentral disc protrusion at T8-T9 with no stenosis.[id number]_PS01[facility] Brain & Orbit W Wo Hstoejyc7622-29-85 22:36:27Hm Interface, Radiology Results 02/03/2020 10:39 PM [...] are preserved.IMPRESSION:Unremarkable MRI of the brain and orbits.[facility]-[id number] [facility] Cervical Spine W Qqybbohl5505-89-82 22:33:20Hm Interface, Radiology Results 02/03/2020 10:36 PM [...] are unremarkable.IMPRESSION:No keagan dence of cervical cord demyelination.[facility]-[id number] MethodistVitamin D 25 hydroxy zmokc5413-44-18 20:37:03 Test Item Value Reference Range Interpretation [...] contact lab for alternative met hods. Turner MethodistSyphilis total ezzxdvfj1948-86-03 20:32:43 Test Item Value Reference Range Interpretation Comments Syphilis total Non-reactive Non-reactive No serologica l antibody (test code evidence of syphilis = 6194) infection. Turner WorleyHIV Ag/Ab smsntzxumdh6857-77-63 20:28:37 Test Item Value Reference Range Interpretation Comments HIV Ag/Ab combination (test code Non-reactive Non-reactive = 5299) [place] MethodginetteVitamin B12 lfxfd3263-84-20 19:35:13 Test Item Value Reference Range Interpretation Comments Vitamin B12 (test 541 pg/mL 211-946 Significan t overlap code = 2132-9) exists betwee n normal and deficiency states.However, most patients with deficiencies wi ll have Serum B12 <2 00 pg/mL. [place] MethodistFolate hyzte6882-19-75 19:35:13 Test Item Value Reference Range Interpretation Comments Folate (test code = 2284-8) 8.0 ng/mL 4.8-24.2 [place] MethodistSedimentation gfwa5499-89-00 19:34:55 Test Item Value Reference Range Interpretation Comments Sedimentation rate (test code = 7 0- 20 mm/hr 37826-2) [place] MethodistT4, nyxb2245-05-10 19:25:51 Test Item Value Reference Range Interpretation Comments T4, free (test code = 3024-7) 1.0 ng/dL 0.9-1.7 [place] FrowwloeyE36406-25-79 19:25:51 Test Item Value Reference Range Interpretation Comments T3 (test code = 3053-6) 70 ng/dL 80-200 L Lab Interpretation (test code = Abnormal 98114-4) [place] RastafarianCortisol level, clzfvf8536-17-38 19:25:00 Test Item Value Reference Range Interpretation Comments Cortisol, random 2 ug/dL Reference R anges are not (test code = 2143-6) establi shed for non-timed Cortisol levels .Reference Range for Timed Cortisol: 6 - 10 AM 6 - 18 ug/dl 4 - 8 PM 3 - 11 ug/ dl [place] RastafarianThyroid stimulating tkvwqlb7914-31-55 19:25:00 Test Item Value Reference Range Interpretation Comments TSH (test code = 3016-3) 1.12 0.27- 4.20 uIU/mL [place] RastafarianComprehensive metabolic jwiew2885-19-48 19:24:36 Test Item Value Reference Range Interpretation Comments Sodium (test code = 140 135- 148 mEq/L 2951-2) Potassium (test code = 3.8 3.5- 5.0 mEq/L 3-3) Chloride (test code = 104 98- 112 mEq/L 2074-0) CO2 (test code = 2027-9) 18 24- 31 mEq/L L Anion gap (test code = 18@ANIO 7- 15 mEq/L H 86529-5) BUN (test code = 3094-0) 16 mg/dL 6-20 Creatinine (test code = 0.62 mg/dL 0.5-0.9 2160-0) Glucose (test code = 137 mg/dL 65-99 H 2345-7) Calcium (test code = 9.0 mg/dL 8.3-10.2 26643-1) Protein (test code = 7.2 g/dL 6.3-8.3 -[place] n 2885-2) 4.6-7.0 g/dL1 week 4.4-7 .6 g/dL7 months-1y ear 5.1-7 .3 g/dL1-2 years 5.6-7 .5 g/dL>3 years 6.0-8 .0 g/yG03-924 6.3-8 .3 g/dL Albumin (test code = 3.9 g/dL 3.5-5 175-7) A/G ratio (test code = 1.2 0.7-3.8 175-0) Alkaline phosphatase 57 U/L 35-104 (test code = 6768-6) AST (test code = 1919-8) 15 U/L 10-35 ALT (test code = 1742-6) 25 U/L 5-50 Total bilirubin (test 0.3 mg/dL 0-1.2 code = 1974-) Lab Interpretation (test Abnormal code = 74466-6) Turner MethodistC-reactive msgdomh5479-78-62 19:21:52 Test Item Value Reference Range Interpretation Comments CRP (test code = 1987-08) <0.30 0-0.5 Turner MethodisthCG quantitative, goxhq5757-64-09 19:20:00 Test Item Value Reference Range Interpretation Comments hCG quantitative, <1 0- 5 mIU/mL Reference range for HCG serum (test code = Quant ashutosh lies to males and 88272-8) non-fem ales.Post Menopausal 0.0 - 8.1 mIU/mL Turner MethodistRheumatoid vhhtif3462-38-83 19:14:45 Test Item Value Reference Range Interpretation Comments Rheumatoid factor (test code = 77288-7) <10 0- 13 IU/mL Turner MethodistHomocystine, lxadkw5646-36-53 19:14:45 Test Item Value Reference Range Interpretation Comments Homocysteine (test 6.4 umol/L 0-15 The risk for coronary code = 31073-4) vascular dis ease increases progressively w ith homocysteine concentration. A 3.4 times greater r isk is associated with a homocysteine concentration o f greater than 15.8 umol/L as jt red to a concentration below 14.1 umol/L. [facility] MethodistCT Head Wo Domjdqbo3443-56-55 16:17:18Hm Interface, Radiology Results - 02/03/2020 4:20 [...] are intact.IMPRESSION:No CT evidence for acute intracranial abnormality.[id number]_PS01[facility] Rastafarian
--- NOTE | 2020-04-18 11:33 | RAD REPORT ---
EXAM DESCRIPTION: US - UPPER EXTREMITY VENOUS UNILATE - 04/18/2020 11:20 am CLINICAL HISTORY: Right arm pain and swelling COMPARISON: None. TECHNIQUE: Real-time sonographic evaluation of the right upper extremity deep venous systems was per formed. FINDINGS: Normal compressibility, flow augmentation, phasic flow and spontaneous flow are identified in the right upper extremity deep venous system. No intraluminal filling defects seen. Internal jugu lar and subclavian veins are normal as well. IMPRESSION: No DVT in the right upper extremity.
--- NOTE | 2020-04-18 11:43 | ER ---
Nurse's Notes [facility] Name: Snow Argueta Age: 34 yrs Sex: Female : 1985 Arrival Date: 04/18/2020 Time: 10:23 Bed 16 Private MD: Diagnosis: Radiculopathy, cervical region Presentation: 04/18 10:31 Chief complaint: Patient states: Awoke today with R arm pain, tingling to hand area. ll1 States it feels similar to when she had a clot to that arm. Coronavirus screen: Client denies travel out of the [place] in the last 14 days. At this time, the client does not indicate any symptoms associated with coronavirus-19. Ebola Screen: Patient denies travel to an Ebola-affected area in the 21 days before illness onset. Initial Sepsis Screen: Does the patient meet any 2 criteria? No. Patient's initial sepsis screen is negative. Does the patient have a suspected source of infection? No. Patient's initial sepsis screen is negative. Risk Assessment: Do you want to hurt yourself or someone else? Patient reports no desire to harm self or others. Onset of symptoms was April 18, 2020. 10:31 Method Of Arrival: Ambulatory ll1 10:31 Acuity: LEONEL 3 ll1 Historical: - Allergies: 10:31 Cephalexin; ll1 10:31 Gadavist; ll1 10:31 Latex, Natural Rubber; ll1 10:31 Zofran; ll1 - PMHx: 10:31 ADD/ADHD; Blood Clot on R arm; Endometrosis; epilepsy; GERD; Leukemia; Pancreatitis; ll1 - PSHx: 10:31 Appendectomy; Cholecystectomy; Tubal ligation; D\T\C; ll1 - Immunization history:: Adult Immunizations up to date. - Social history:: Smoking status: Patient denies any tobacco usage or history of. Screenin:32 Abuse screen: Denies threats or abuse. Nutritional screening: No deficits noted. ll1 Tuberculosis screening: No symptoms or risk factors identified. 11:00 Fall Risk None identified. jl7 Assessment: 11:00 General: Appears in no apparent distress. uncomfortable, Behavior is calm, cooperative, jl7 appropriate for age. Neuro: Level of Consciousness is awake, alert, obeys commands, Oriented to person, place, time, situation. Cardiovascular: Patient's skin is warm and dry. Respiratory: Airway is patent Respiratory effort is even, unlabored, Respiratory pattern is regular, symmetrical. Derm: Skin is pink, warm \T\ dry. Vital Signs: 10:31 BP 148 / 87; Pulse 88; Resp 17; Temp 98.4; Pulse Ox 97% on R/A; ll1 11:00 BP 138 / 80; Pulse 81; Resp 17; Pulse Ox 97% ; jl7 ED Course: 10:23 Patient arrived in ED. rg4 10:24 Mich Carrion PA is PHCP. romy 10:24 Matthew Ramirez MD is Attending Physician. romy 10:29 Mehran Ramsey, RN is Primary Nurse. jl7 10:31 Arm band placed on Patient placed in an exam room, on a stretcher. ll1 10:32 Triage completed. ll1 10:32 Patient has correct armband on for positive identification. Bed in low position. Call ll1 light in reach. Side rails up X 1. Pulse ox on. NIBP on. 11:20 UPPER EXTREMITY VENOUS UNILATE In Process Unspecified. EDMS 12:07 No provider procedures requiring assistance completed. Patient did not have IV access jl7 during this emergency room visit. Administered Medications: No medications were administered Outcome: 11:41 Discharge ordered by MD. bruce 12:07 Discharged to home ambulatory. jl7 12:07 Condition: stable 12:07 Discharge instructions given to patient, Instructed on discharge instructions, follow up and referral plans. medication usage, Demonstrated understanding of instructions, follow-up care, medications, Prescriptions given X 1. 12:08 Patient left the ED. jl7 Signatures: Dispatcher [employer] EDMS Mich Carrion PA PA jmm Garcia, Rubi rg4 Mehran Ramsey, RN RN jl7 Duy Bautista RN RN ll1
--- NOTE | 2020-04-18 11:43 | EDPHYS ---
Physician Documentation [facility] Name: Snow Argueta Age: 34 yrs Sex: Female : 1985 Arrival Date: 04/18/2020 Time: 10:23 Bed 16 Private MD: ED Physician Matthew Ramirez HPI: 04/18 10:37 This 34 yrs old Female presents to ER via Ambulatory with complaints of Arm jmm Pain, Numbness Of Arm. 10:37 The patient or guardian complains of pain. Onset: The symptoms/episode began/occurred jmm gradually, 1 day(s) ago. Modifying factors: The symptoms are alleviated by nothing. the symptoms are aggravated by nothing. This is a 34 year old female with a history of epilepsy that presents to the ED with complaints of right arm pain. Patient had a similar episode of pain when previously diagnosed with a clot in the basilic vein. Patient is not on anticoagulants. . Historical: - Allergies: 10:31 Cephalexin; ll1 10:31 Gadavist; ll1 10:31 Latex, Natural Rubber; ll1 10:31 Zofran; ll1 - PMHx: 10:31 ADD/ADHD; Blood Clot on R arm; Endometrosis; epilepsy; GERD; Leukemia; Pancreatitis; ll1 - PSHx: 10:31 Appendectomy; Cholecystectomy; Tubal ligation; D\T\C; ll1 - Immunization history:: Adult Immunizations up to date. - Social history:: Smoking status: Patient denies any tobacco usage or history of. ROS: 10:37 Constitutional: Negative for fever, chills, and weight loss, Cardiovascular: Negative jmm for chest pain, palpitations, and edema, Respiratory: Negative for shortness of breath, cough, wheezing, and pleuritic chest pain. 10:37 MS/extremity: Positive for pain. 10:37 All other systems are negative. Exam: 10:37 Constitutional: This is a well developed, well nourished patient who is awake, alert, jmm and in no acute distress. Head/Face: atraumatic. Eyes: EOMI, no conjunctival erythema appreciated ENT: Moist Mucus Membranes Neck: Trachea midline, Supple Chest/axilla: Normal chest wall appearance and motion. Cardiovascular: Regular rate and rhythm. No edema appreciated Respiratory: Normal respirations, no respiratory distress appreciated Abdomen/GI: Non distended, soft Back: Normal ROM Skin: General appearance color normal 10:37 Neuro: Awake and alert, normal gait Psych: Behavior is normal, Mood is normal, Patient is cooperative and pleasant 10:37 Musculoskeletal/extremity: full pot tender strength, full radial pulse, compartments are soft, negative tinnels, NVI. Vital Signs: 10:31 BP 148 / 87; Pulse 88; Resp 17; Temp 98.4; Pulse Ox 97% on R/A; ll1 11:00 BP 138 / 80; Pulse 81; Resp 17; Pulse Ox 97% ; jl7 MDM: 10:[address] [facility] 11:36 Data reviewed: vital signs, nurses notes. Counseling: I had a detailed discussion with juan the patient and/or guardian regarding: the historical points, exam findings, and any diagnostic results supporting the discharge/admit diagnosis, the need for outpatient follow up, to return to the emergency department if symptoms worsen or persist or if there are any questions or concerns that arise at home. ED course: Patient is alert and non toxic in the ED. Advised to follow up with pcp and otherwise given strict return precautions. PE findings consistent with radicular pain. Patient will follow up with neuro for further evaluation. Patient understood and agrees with the plan of care. . 04/18 11:20 Order name: UPPER EXTREMITY VENOUS UNILATE; Complete Time: 11:34 EDMS Administered Medications: No medications were administered Disposition: 12:10 Co-signature as Attending Physician, Matthew Ramirez MD. rn Disposition: 04/18/20 11:41 Discharged to Home. Impression: Radiculopathy, cervical region. - Condition is Stable. - Discharge Instructions: Cervical Radiculopathy. - Prescriptions for Tylenol- Codeine #3 300-30 mg Oral Tablet - take 1 tablet by ORAL route every 6 hours As needed; 12 tablet. - Medication Reconciliation Form, Thank You Letter, Antibiotic Education, Prescription Opioid Use form. - Follow up: Private Physician; When: 2 - 3 days; Reason: Recheck today's complaints, Continuance of care, Re-evaluation by your physician. Signatures: Dispatcher [employer] EDMS Mich Carrion PA PA Matthew Wheatley MD MD rn Leal, Jahala, RN RN jl7 Duy Bautista RN RN ll1 Corrections: (The following items were deleted from the chart) 11:20 10:35 Extremity Venous Uni [id number] ordered. EDAL EDMS 12:08 11:41 04/18/2020 11:41 Discharged to Home. Impression: Radiculopathy, cervical region. jl7 Condition is Stable. Forms are Medication Reconciliation Form, Thank You Letter, Antibiotic Education, Prescription Opioid Use. Follow up: Private Physician; When: 2 - 3 days; Reason: Recheck today's complaints, Continuance of care, Re-evaluation by your physician. romy
[2020-04-18 12:15] VITALS: TEMP 98.4; O2SAT 97
[2020-04-18 12:21] VITALS: BP 138/80
== END 2020-04-18 12:08 | disposition home or self-care (01) ==
LOC: ER 10:21
DX: M54.12 Radiculopathy, cervical region (principal); Z88.1 Allergy status to other antibiotic agents; Z88.5 Allergy status to narcotic agent; Z88.8 Allergy status to other drugs, medicaments and biological substances; Z91.040 Latex allergy status; Z91.048 Other nonmedicinal substance allergy status
CPT/HCPCS: 93971; 99283

== ENCOUNTER 2020-06-03 19:34 | Emergency (ER) | payer BC, OTHER ==
--- NOTE | 2020-06-03 19:58 | RAD REPORT ---
EXAM DESCRIPTION: CT - Ct Stroke Brain Wo Cont - 06/03/2020 7:52 pm CLINICAL HISTORY: HEADACHE CVA symptomology COMPARISON: Head Brain Wo Cont dated 02/12/2020; Head Brain Wo Cont dated 09/07/2019 TECHNIQUE: All CT scans are performed using dose optimization technique as appropriate and may inclu de automated exposure control or mA/KV adjustment according to patient size. FINDINGS: No intracranial hemorrhage, hydrocephalus or extra-axial fluid collection.No areas of brai n edema or evidence of midline shift. The paranasal sinuses and mastoids are clear. The calvarium is intact. IMPRESSION: No acute intracranial abnormality. The findings were discussed with Dr. Aguirre in the ER On 06-03-20 at 7:41 pm by telephone.
--- NOTE | 2020-06-03 20:08 | RAD REPORT ---
EXAM DESCRIPTION: RAD - Chest Single View - 06/03/2020 8:01 pm CLINICAL HISTORY: stroke protocol Chest pain. COMPARISON: Chest Single View dated 02/12/2020; Chest Single View dated 02/09/2020; Chest Single Vie w dated 09/07/2019; Chest Pa And Lat (2 Views) dated 06/13/2019 FINDINGS: Portable technique limits examination quality. The lungs are grossly clear. The heart is normal in size. No displaced fractures. IMPRESSION: No acute intrathoracic process suspected.
[2020-06-03 20:13] LABS: Absolute Lymphocytes (CBC) 1.7 K/uL (0.7-4.9); Basophils % 0.3 % (0-1.3); Lymphocytes % 31.9 % (15.3-44.8); MPV 10.1 fL (7.6-11.3); RBC Red Blood Cell Count 4.55 M/uL (3.86-4.86)
[2020-06-03 20:16] LABS: Protime INR 0.95
[2020-06-03 20:27] LABS: BUN Blood Urea Nitrogen 11 mg/dL (7-18); Bicarbonate 25 mmol/L (21-32); Glucose Level 97 mg/dL (74-106); Magnesium 2.3 mg/dL (1.8-2.4); Potassium 3.5 mmol/L (3.5-5.1); Sodium Level 143 mmol/L (136-145)
[2020-06-03 20:31] LABS: Troponin (Emerg Dept Use Only) < 0.02 ng/mL (0.0-0.045)
[2020-06-03] MEDS ORDERED: ACETAMINOPHEN 500 MG TAB ONE (20:56)
--- NOTE | 2020-06-03 21:15 | RAD REPORT ---
EXAM DESCRIPTION: CT - Head angio - 06/03/2020 9:00 pm CLINICAL HISTORY: WEAKNESS Headache, drowsiness, CVA symptomology COMPARISON: Ct Stroke Brain Wo Cont dated 06/03/2020; Head Brain Wo Cont dated 02/12/2020 TECHNIQUE: CT angiography of the head was performed with MIPs. All CT scans are performed using dose optimization technique as appropriate and may include automated exposure control or mA/KV adjustment according to patient size. FINDINGS: No evidence of aneurysm is detected. No flow-limiting stenosis or vascular malformation id entified. Antegrade flow is seen in the vertebral arteries. The vertebral arteries are codominant. The visualized dural venous sinuses are patent. IMPRESSION: No significant flow abnormality is detected.
--- NOTE | 2020-06-03 21:18 | RAD REPORT ---
EXAM DESCRIPTION: CT - Neck Angio - 06/03/2020 9:05 pm CLINICAL HISTORY: weakness Headache, drowsiness, CVA symptomology COMPARISON: [id number] dated 03/15/2012 TECHNIQUE: CT angiography of the neck vessels was performed with MIPs. All CT scans are performed using dose optimization technique as appropriate and may include automated exposure control or mA/KV adjustment according to patient size. FINDINGS: A left aortic arch is identified with normal three vessel configuration of the great vesse ls. No significant flow abnormality is seen of the common carotid bilaterally. No significant stenosis is identified involving the cervical segments of both internal carotid arteri es. Normal flow is seen within both vertebral arteries. IMPRESSION: No significant flow abnormality of the neck vessels is identified.
[2020-06-03 22:05] LABS: Urine Blood NEGATIVE (NEG); Urine Glucose NEGATIVE (NEG); Urine Protein NEGATIVE (NEG); Urine Specific Gravity 1.025 (1.005-1.030)
--- NOTE | 2020-06-03 22:14 | ER ---
Nurse's Notes [facility] Name: Snow Argueta Age: 34 yrs Sex: Female : 1985 Arrival Date: 06/03/2020 Time: 19:38 Bed 3 Private MD: Diagnosis: Right Sided Weakness;Paresthesia Presentation: 06/03 19:35 Chief complaint: EMS states: was toned for right sided weakness and numbness. Pt states wh Hx of same symptoms last January but was negative for stroke. Pt stated she felt same symptom yesterday but went away. Stared feeling weakness and tingling around 6:30 pm while shopping at [employer] and was having headache around 1:00 pm. Coronavirus screen: Client denies travel out of the [place] in the last 14 days. At this time, the client does not indicate any symptoms associated with coronavirus-19. Ebola Screen: Patient negative for fever greater than or equal to 101.5 degrees Fahrenheit, and additional compatible Ebola Virus Disease symptoms Patient denies exposure to infectious person. Risk Assessment: Do you want to hurt yourself or someone else? Patient reports no desire to harm self or others. Onset of symptoms was June 03, 2020. 19:35 Method Of Arrival: EMS: [facility] 19:35 Acuity: LEONEL 2 20:05 Initial Sepsis Screen: Does the patient meet any 2 criteria? No. Patient's initial sepsis screen is negative. Does the patient have a suspected source of infection? No. Patient's initial sepsis screen is negative. 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 - Social history:: Smoking status: Patient/guardian denies using. Screenin:30 Abuse screen: Denies threats or abuse. Denies injuries from another. Nutritional wh screening: No deficits noted. Tuberculosis screening: No symptoms or risk factors identified. VAN Screening: Arm Drift: Minor drift. Visual Disturbance: No visual disturbance noted. Aphasia: No aphasia noted. Neglect: No neglect noted. Fall Risk Secondary diagnosis (15 points) seizures, impaired mobility. 20:21 Patient has been NPO before screening. The patient is alert, able to follow commands. wh The patient does not exhibit slurred or garbled speech The patient is not exhibiting difficulty speaking. The patient does not exhibit difficulty understanding words. The patient is able to swallow own secretions with no drooling or need for suction. Patient tolerated one teaspoon of water. No drooling, immediate coughing, gurgling, or clearing of the throat was noted. The patient tolerated 90mL of water. No drooling, immediate coughing, gurgling, or clearing of the throat was noted. The patient passed the bedside swallow screening. Oral medications may be given as ordered. Contact Physician for further diet orders. Assessment: 19:30 Reassessment: Pt was assessed and moved to CT for imaging. 19:45 General: Appears in no apparent distress. Behavior is calm, cooperative, appropriate wh for age. Pain: Complains of pain in headache. Neuro: Level of Consciousness is awake, alert, obeys commands, Oriented to person, place, time, situation, Appropriate for age [employer] are weak on right Weakness in right arm(s) leg(s) Speech is normal, Facial droop on left, Pupils are PERRLA, Reports headache occipital area. Cardiovascular: Heart tones S1 S2. Respiratory: Airway is patent Respiratory effort is even, unlabored, Respiratory pattern is regular, symmetrical, Breath sounds are clear bilaterally. GI: Abdomen is round non-distended. : No signs and/or symptoms were reported regarding the genitourinary system. EENT: No signs and/or symptoms were reported regarding the EENT system. Derm: Skin is intact, is healthy with good turgor, Skin is pink, warm \\T\\ dry. normal. Musculoskeletal: Range of motion: limited in right arm and right leg. 21:00 Reassessment: Patient appears in no apparent distress at this time. No changes from wh previously documented assessment. Patient and/or family updated on plan of care and expected duration. Pain level reassessed. Patient is alert, oriented x 3, equal unlabored respirations, skin warm/dry/pink. 22:00 Reassessment: Patient appears in no apparent distress at this time. Patient and/or wh family updated on plan of care and expected duration. Pain level reassessed. Patient is alert, oriented x 3, equal unlabored respirations, skin warm/dry/pink. Updated on POC need for transfer. 23:00 Reassessment: Patient appears in no apparent distress at this time. Patient and/or wh family updated on plan of care and expected duration. Pain level reassessed. Patient is alert, oriented x 3, equal unlabored respirations, skin warm/dry/pink. Report given to Alicia Burdick RN. Vital Signs: 20:05 BP 141 / 91; Pulse 75; Resp 18; Temp 97.8; Pulse Ox 98% ; Weight 95.71 kg; Height 5 ft. wh 6 in. (167.64 cm); Pain 9/10; 21:00 BP 129 / 83; Pulse 93; Resp 18; Pulse Ox 99% on R/A; wh 22:13 BP 138 / 89; Pulse 94; Resp 18; Pulse Ox 98% on R/A; mg2 23:30 BP 130 / 81; Pulse 85; Resp 18; Pulse Ox 100% on R/A; wh 20:05 Body Mass Index 34.06 (95.71 kg, 167.64 cm) NIH Stroke Scale Scores: 19:30 NIHSS Score: 7 wh 20:11 NIHSS Score: 8 7 ED Course: 19:38 Patient arrived in ED. mw2 19:43 Darion Anthony MD is Attending Physician. 7 19:45 Katelyn Jimenez, EBONIE is Primary Nurse. 19:45 Maintain EMS IV. Dressing intact. Good blood return noted. Site clean \\T\\ dry. wh 19:51 CT Stroke Brain w/o Contrast In Process Unspecified. EDMS 19:56 Triage completed. wh 19:59 Stroke CXR 1 View In Process Unspecified. EDMS 20:13 Patient has correct armband on for positive identification. Placed in gown. Bed in low wh position. Call light in reach. Side rails up X 1. phototypesetting equipment monitor on. Pulse ox on. NIBP on. 20:13 Arm band placed on right wrist. 20:37 initiated a transfer with Mary Grace from [facility]. She stated "we are mw2 going to need the covid results before continuing, and I'll call back with a bed status.". 20:59 CT Head Angio In Process Unspecified. EDMS 21:05 CT Neck Angio In Process Unspecified. EDMS 22:08 administrative approval given by Mary Grace Benito/ patient has been accepted to [address] pending bed assignment/ Dr. Umana has accepted the patient in transfer. 22:32 bed assignment at [address] bed 827A/ report to be called to [phone]. [facility] 23:55 No provider procedures requiring assistance completed. IV discontinued, intact, bleeding controlled, No redness/swelling at site. Administered Medications: 20:42 Drug: Tylenol 1000 mg Route: PO; 22:12 Follow up: Response: No adverse reaction [facility] 21:45 Drug: morphine 2 mg {Note: RASS 0.} Route: IVP; Site: right antecubital; 23:55 Follow up: Response: No adverse reaction; Pain is decreased; RASS: Alert and Calm (0) 22:13 Drug: Aspirin Chewable Tablet 162 mg Route: PO; 23:55 Follow up: Response: No adverse reaction Outcome: 22:14 ER care complete, transfer ordered by MD. malloy 23:56 Transferred by ground EMS to [facility], Transfer form completed. X-rays sent w/ patient. Note: Report given to [facility] 23:56 Condition: stable 23:56 Instructed on the need for transfer. 23:56 Patient left the ED. NIH Stroke Scale - NIH Stroke Score Date: 06/03/2020 Time: 19:30 Total Score = 7 1a. Level of Consciousness (LOC) - 0(Alert) 1b. Level of Consciousness (LOC) (Year \\T\\ Age) - 0(Both) 1c. LOC Commands (Open \\T\\ Closes Eyes/Tandem Operator) - 0(Both) 2. Best Gaze (Lateral Gaze Paresis) - 0(Normal) 3. Visual Field Loss - 0(No visual loss) 4. Facial Palsy - 1(Minor Paralysis) 5a. Left Arm: Motor (10-second hold) - 0(No drift) 5b. Right Arm: Motor (10-second hold) - 2(Drift, some effort against gravity) 6a. Left Leg: Motor (5-second hold - always test supine) - 0(No drift) 6b. Right Leg: Motor (5-second hold - always test supine) - 2(Drift, some effort against gravity) 7. Limb Ataxia (finger/nose \\T\\ heel/bajwa - test with eyes open) - 1(Present in one limb) 8. Sensory Loss (pinprick arms/legs/face) - 1(Mild to moderate loss) 9. Best Language: Aphasia (description/naming/reading) - 0(No aphasia) 10. Dysarthria (speech clarity - read or repeat words) - 0(Normal) 11. Extinction and Inattention (visual/tactile/auditory/spatial/personal) - 0(No abnormality) Initials: NIH Stroke Scale - NIH Stroke Score Date: 06/03/2020 Time: 20:11 Total Score = 8 1a. Level of Consciousness (LOC) - 0(Alert) 1b. Level of Consciousness (LOC) (Year \\T\\ Age) - 0(Both) 1c. LOC Commands (Open \\T\\ Closes Eyes/Tandem Operator) - 0(Both) 2. Best Gaze (Lateral Gaze Paresis) - 0(Normal) 3. Visual Field Loss - 0(No visual loss) 4. Facial Palsy - 1(Minor Paralysis) 5a. Left Arm: Motor (10-second hold) - 0(No drift) 5b. Right Arm: Motor (10-second hold) - 2(Drift, some effort against gravity) 6a. Left Leg: Motor (5-second hold - always test supine) - 0(No drift) 6b. Right Leg: Motor (5-second hold - always test supine) - 2(Drift, some effort against gravity) 7. Limb Ataxia (finger/nose \\T\\ heel/bajwa - test with eyes open) - 2(Present in two limbs) 8. Sensory Loss (pinprick arms/legs/face) - 1(Mild to moderate loss) 9. Best Language: Aphasia (description/naming/reading) - 0(No aphasia) 10. Dysarthria (speech clarity - read or repeat words) - 0(Normal) 11. Extinction and Inattention (visual/tactile/auditory/spatial/personal) - 0(No abnormality) Initials: [facility] Signatures: Dispatcher [employer] EDMS Katelyn Jimneez RN RN Joni Alanis [facility] Solomon Smith RN RN [facility] Darion Anthony MD MD 7 Corrections: (The following items were deleted from the chart) 20:06 19:35 Chief complaint: EMS states: was toned for right sided weakness and wh numbness. Pt states Hx of same symptoms last January but was negative for stroke. Pt stated she felt same symptom yesterday but went away. Stared feeling weakness and tingling around 6:30 pm while shopping at [employer] 22:33 22:08 administrative approval given by Mary Grace Benito/ patient has been mw2 accepted to [facility] pending bed assignment/ Dr. Umana has accepted the patient in transfer. mw2
--- NOTE | 2020-06-03 22:15 | EDPHYS ---
Physician Documentation [facility] Name: Snow Argueta Age: 34 yrs Sex: Female : 1985 Arrival Date: 06/03/2020 Time: 19:38 Bed 3 Private MD: ED Physician Darion Anthony HPI: 06/03 20:11 This 34 yrs old Female presents to ER via EMS with complaints of Right Sided mh7 Weakness. Numbness.. 20:11 The patient presents to the emergency department with weakness of the right upper mh7 extremity, that is moderate, right lower extremity, that is moderate, left side of the face, that is mild. Onset: The symptoms/episode began/occurred today, at 18:00, Reports dizziness and numbness of extremities that started yesterday then resolved.. Context: occurred at a store, occurred while the patient was standing. Associated signs and symptoms: Pertinent positives: altered mental status, dizziness, headache, paresthesias, weakness, Pertinent negatives: chills, fever, nausea, neck stiffness, seizure, syncope, near-syncope, blurred vision, double vision, visual field changes, loss of vision. Severity of symptoms: At their worst the symptoms were moderate today, in the emergency department the symptoms are unchanged. Patient's baseline: Neuro: alert and fully oriented, Motor: no deficits, Ambulation: walks without assistance, Speech: normal, The patient has a previous history of seizure disorder, possible MS, Leukemia. Current symptoms: paralysis or paresis, of the right arm and right leg, that is moderate. The patient has experienced similar episodes in the past, a few times. The patient has been recently seen by a physician: Dr. Chung-Neurology. 22:14 Patient reports having similar symptoms yesterday except for weakness and laid down for mh7 several hors with symptom resolution. She also reports having similar symptoms including extremity weakness about 4 months ago and had multiple tests done at [facility]. She states that she was told symptoms may be due to multiple sclerosis and was put on steroids and eventually regained normal function.. 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 - Social history:: Smoking status: Patient/guardian denies using. ROS: 20:11 Constitutional: Negative for fever, chills, and weight loss, Eyes: Negative for injury, mh7 pain, redness, and discharge. 20:11 Neck: Negative for injury, pain, and swelling, Cardiovascular: Negative for chest pain, palpitations, and edema, Respiratory: Negative for shortness of breath, cough, wheezing, and pleuritic chest pain, Abdomen/GI: Negative for abdominal pain, nausea, vomiting, diarrhea, and constipation, Back: Negative for injury and pain, : Negative for injury, bleeding, discharge, and swelling, Skin: Negative for injury, rash, and discoloration, Psych: Negative for depression, anxiety, suicide ideation, homicidal ideation, and hallucinations, Allergy/Immunology: Negative for hives, rash, and allergies, Endocrine: Negative for neck swelling, polydipsia, polyuria, polyphagia, and marked weight changes, Hematologic/Lymphatic: Negative for swollen nodes, abnormal bleeding, and unusual bruising. 20:11 ENT: Positive for sinus congestion. Exam: 20:11 Constitutional: This is a well developed, well nourished patient who is awake, alert, mh7 and in no acute distress. 20:11 Head/Face: Normocephalic, atraumatic. Eyes: Pupils equal round and reactive to light, extra-ocular motions intact. Lids and lashes normal. Conjunctiva and sclera are non-icteric and not injected. Cornea within normal limits. Periorbital areas with no swelling, redness, or edema. Neck: Trachea midline, no thyromegaly or masses palpated, and no cervical lymphadenopathy. Supple, full range of motion without nuchal rigidity, or vertebral point tenderness. No Meningismus. Chest/axilla: Normal chest wall appearance and motion. Nontender with no deformity. No lesions are appreciated. Cardiovascular: Regular rate and rhythm with a normal S1 and S2. No gallops, murmurs, or rubs. Normal PMI, no JVD. No pulse deficits. Respiratory: Lungs have equal breath sounds bilaterally, clear to auscultation and percussion. No rales, rhonchi or wheezes noted. No increased work of breathing, no retractions or nasal flaring. Abdomen/GI: Soft, non-tender, with normal bowel sounds. No distension or tympany. No guarding or rebound. No evidence of tenderness throughout. Back: No spinal tenderness. No costovertebral tenderness. Full range of motion. Skin: Warm, dry with normal turgor. Normal color with no rashes, no lesions, and no evidence of cellulitis. 20:11 Psych: Awake, alert, with orientation to person, place and time. Behavior, mood, and affect are within normal limits. 20:11 Head/face: 20:11 Musculoskeletal/extremity: Extremities: noted in the right arm and right leg: decreased ROM, ROM: limited active range of motion, in the right arm, no ROM right lower extremity, Circulation is intact in all extremities. Pulses: are normal with no appreciated deficits, Perfusion: the patient is normally perfused throughout, Perfusion: the extremity is normally perfused throughout, Calf tenderness, is absent, Edema, is not appreciated, Tingling of extremity. numbness, decreased sensation, right face, right upper extremity, right lower extremity Weight bearing: is unable to bear weight, DVT Exam: no pain, no swelling, no tenderness, negative Homans' sign noted on exam, no appreciated bluish discoloration, no erythema, no increased warmth, Calves: are non-tender, have equal circumference. 20:11 Neuro: Orientation: is normal, Mentation: is normal, Memory: is normal, immediate memory is intact, recent memory is intact, remote memory is intact, Cranial nerves: facial droop noted on left, with forehead involved. Cerebellar function: Romberg testing dysmetria is noted on the right, the patient is unable to track right heel to left bajwa, unable to perform alternating rapid hand movements with right hand, Motor: strength is 5/5 in the left arm and left leg, Strength is 3/5 in the right arm, Strength is 2/5 in the right leg, Sensation: numbness, that is moderate, of the right arm and right leg and right face, Gait: not tested. seizure activity, is not displayed by the patient, Abnormal movements: there are no abnormal movements. Vital Signs: 20:05 BP 141 / 91; Pulse 75; Resp 18; Temp 97.8; Pulse Ox 98% ; Weight 95.71 kg; Height 5 ft. wh 6 in. (167.64 cm); Pain 9/10; 21:00 BP 129 / 83; Pulse 93; Resp 18; Pulse Ox 99% on R/A; wh 22:13 BP 138 / 89; Pulse 94; Resp 18; Pulse Ox 98% on R/A; mg2 23:30 BP 130 / 81; Pulse 85; Resp 18; Pulse Ox 100% on R/A; wh 20:05 Body Mass Index 34.06 (95.71 kg, 167.64 cm) NIH Stroke Scale Scores: 19:30 NIHSS Score: 7 wh 20:11 NIHSS Score: 8 7 MDM: 22:08 Data reviewed: vital signs, nurses notes, EMS record, old medical records, lab test [facility] result(s), CBC, electrolytes, urinalysis, EKG, radiologic studies, CT scan, plain films. Data interpreted: Pulse oximetry: on room air is 98 %. Interpretation: normal. Counseling: I had a detailed discussion with the patient and/or guardian regarding: the historical points, exam findings, and any diagnostic results supporting the discharge/admit diagnosis, the presence of at least one elevated blood pressure reading (>120/80) during this emergency department visit, lab results, radiology results, the need to transfer to another facility, for higher level of care, Prior work up done at outside facility, not able to get MRI done on weekend.. 22:11 Response to treatment: There is no appreciated change of the patient's symptoms at this [facility] time. Physician consultation: Mil aJne MD was contacted at 20:20, regarding patient's condition, after a discussion of the case, a recommendation for transfer for higher level of care is made. 22:14 Patient medically screened. 7 06/04 04:17 ED course: Discussed with Dr. Jane for neurology consultation after no response mh from Dr. Chung. Patient not a candidate for thrombolytics due to symptoms starting one day prior to coming to the ED with waxing and waning nature. He recommended transfer possibly to [facility] given recent work up there for similar episode and inability to get MRI Brain here for next 2 days.. 06/03 19:42 Order name: UDS 2 06/03 19:42 Order name: Magnesium [facility] 06/03 19:42 Order name: Troponin (emerg Dept Use Only) [facility] 06/03 19:42 Order name: Basic Metabolic Panel [facility] 06/03 19:42 Order name: CBC with Diff; Complete Time: 20:24 [facility] 06/03 19:42 Order name: Protime (+inr); Complete Time: 20:24 [facility] 06/03 19:42 Order name: Ptt, Activated; Complete Time: 20:24 [facility] 06/03 19:43 Order name: Magnesium; Complete Time: 20:34 EDMS 06/03 19:43 Order name: Troponin (Emerg Dept Use Only); Complete Time: 20:34 EDMS 06/03 19:43 Order name: Basic Metabolic Panel; Complete Time: 20:34 EDMS 06/03 20:03 Order name: Glucose, Ancillary Testing; Complete Time: 20:10 [facility] 06/03 20:39 Order name: COVID-19 : Document "Date of Symptom Onset" if Symptomatic. [facility] 06/03 19:42 Order name: CT Stroke Brain w/o Contrast; Complete Time: 20:10 [facility] 06/03 19:42 Order name: Stroke CXR 1 View; Complete Time: 20:10 [facility] 06/03 19:42 Order name: EKG; Complete Time: 19:43 [facility] 06/03 19:42 Order name: Accucheck; Complete Time: 20:16 [facility] 06/03 19:42 Order name: Cardiac monitoring; Complete Time: 20:16 [facility] 06/03 19:42 Order name: EKG - Nurse/Tech; Complete Time: 20:16 [facility] 06/03 19:42 Order name: IV Saline Lock; Complete Time: 20:16 [facility] 06/03 19:42 Order name: Labs collected and sent; Complete Time: 20:16 [facility] 06/03 20:31 Order name: CT Head Angio; Complete Time: 21:25 7 06/03 20:31 Order name: CT Neck Angio; Complete Time: 21:25 [facility] 06/03 21:56 Order name: SARS-COV-2 RT PCR; Complete Time: 21:57 EDMS 06/03 21:56 Order name: Urine Dipstick--Ancillary (enter results); Complete Time: 22:08 [facility] 06/03 21:56 Order name: Urine --Ancillary (enter results); Complete Time: 22:08 mw2 06/03 19:42 Order name: NPO; Complete Time: 20:16 mw2 06/03 19:42 Order name: O2 Per Protocol; Complete Time: 20:16 mw2 06/03 19:42 Order name: O2 Sat Monitoring; Complete Time: 20:16 mw2 06/03 19:42 Order name: Stroke Swallow Screen; Complete Time: 20:16 mw2 06/03 19:43 Order name: Urine Dipstick-Ancillary (obtain specimen); Complete Time: 22:08 mw2 06/03 19:43 Order name: Urine Test (obtain specimen); Complete Time: 22:07 mw2 Administered Medications: 06/03 20:42 Drug: Tylenol 1000 mg Route: PO; 22:12 Follow up: Response: [place] adverse [place] [facility] [place] Drug: morphine 2 mg {Note: RASS 0.} Route: IVP; Site: right antecubital; 23:55 Follow up: Response: No adverse reaction; Pain is decreased; RASS: Alert and Calm (0) 22:13 Drug: Aspirin Chewable Tablet 162 mg Route: PO; 23:55 Follow up: Response: No adverse reaction Disposition: 06/03/20 22:14 Transfer ordered to [facility]. Diagnosis are Right Sided Weakness, Paresthesia. - Reason for transfer: Higher level of care. - Accepting physician is Dr. Sequeira. - Condition is Stable. - Problem is an acute exacerbation. - Symptoms are unchanged. NIH Stroke Scale - NIH Stroke Score Date: 06/03/2020 Time: 19:30 Total Score = 7 1a. Level of Consciousness (LOC) - 0(Alert) 1b. Level of Consciousness (LOC) (Year \\T\\ Age) - 0(Both) 1c. LOC Commands (Open \\T\\ Closes Eyes/Flux Tube Attendant) - 0(Both) 2. Best Gaze (Lateral Gaze Paresis) - 0(Normal) 3. Visual Field Loss - 0(No visual loss) 4. Facial Palsy - 1(Minor Paralysis) 5a. Left Arm: Motor (10-second hold) - 0(No drift) 5b. Right Arm: Motor (10-second hold) - 2(Drift, some effort against gravity) 6a. Left Leg: Motor (5-second hold - always test supine) - 0(No drift) 6b. Right Leg: Motor (5-second hold - always test supine) - 2(Drift, some effort against gravity) 7. Limb Ataxia (finger/nose \\T\\ heel/bajwa - test with eyes open) - 1(Present in one limb) 8. Sensory Loss (pinprick arms/legs/face) - 1(Mild to moderate loss) 9. Best Language: Aphasia (description/naming/reading) - 0(No aphasia) 10. Dysarthria (speech clarity - read or repeat words) - 0(Normal) 11. Extinction and Inattention (visual/tactile/auditory/spatial/personal) - 0(No abnormality) Initials: NIH Stroke Scale - NIH Stroke Score Date: 06/03/2020 Time: 20:11 Total Score = 8 1a. Level of Consciousness (LOC) - 0(Alert) 1b. Level of Consciousness (LOC) (Year \\T\\ Age) - 0(Both) 1c. LOC Commands (Open \\T\\ Closes Eyes/Flux Tube Attendant) - 0(Both) 2. Best Gaze (Lateral Gaze Paresis) - 0(Normal) 3. Visual Field Loss - 0(No visual loss) 4. Facial Palsy - 1(Minor Paralysis) 5a. Left Arm: Motor (10-second hold) - 0(No drift) 5b. Right Arm: Motor (10-second hold) - 2(Drift, some effort against gravity) 6a. Left Leg: Motor (5-second hold - always test supine) - 0(No drift) 6b. Right Leg: Motor (5-second hold - always test supine) - 2(Drift, some effort against gravity) 7. Limb Ataxia (finger/nose \\T\\ heel/bajwa - test with eyes open) - 2(Present in two limbs) 8. Sensory Loss (pinprick arms/legs/face) - 1(Mild to moderate loss) 9. Best Language: Aphasia (description/naming/reading) - 0(No aphasia) 10. Dysarthria (speech clarity - read or repeat words) - 0(Normal) 11. Extinction and Inattention (visual/tactile/auditory/spatial/personal) - 0(No abnormality) Initials: 7 Signatures: Dispatcher [employer] EDKatelyn Wheeler RN RN Joni Alanis 2 Darion Anthony MD MD 7 Solomon Smith RN mg2 Corrections: (The following items were deleted from the chart) 20:56 20:40 CORONAVIRUS ordered. EDMS EDMS 23:56 22:14 06/03/2020 22:14 Transfer ordered to [facility]. Diagnosis is Right wh Sided Weakness; Paresthesia. Reason for transfer: Higher level of care. Accepting physician is Dr. Sequeira. Condition is Stable. Problem is an acute exacerbation. Symptoms are unchanged. mh7
[2020-06-03] MEDS ORDERED: ASPIRIN 81 MG CHEWABLE TABLET ONE (22:26)
[2020-06-03] MEDS ORDERED: MORPHINE 2 MG/ML SYR ONE (23:50)
[2020-06-03] MEDS ORDERED: ONDANSETRON 4 MG/2 ML VIAL ONE (23:50)
[2020-06-04 00:23] VITALS: TEMP 97.8
[2020-06-04 00:26] VITALS: BP 130/81; O2SAT 100
--- NOTE | 2020-06-05 13:16 | EKG ---
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
== END 2020-06-03 23:56 | disposition short-term general hospital (02) ==
LOC: ER 19:34
DX: U07.1 COVID-19 (principal); R53.1 Weakness; R20.2 Paresthesia of skin; R29.708 NIHSS score 8; Z88.1 Allergy status to other antibiotic agents; Z88.8 Allergy status to other drugs, medicaments and biological substances; Z91.040 Latex allergy status; Z91.048 Other nonmedicinal substance allergy status
CPT/HCPCS: 93005; 85025; 80048; 36415; 83735; 81025; 85610; 82947; 85730; 81003; 84484; 70496; 70498; 70450; 71045; 96374; 99285; U0003; Q9967; J2270; J2405

== ENCOUNTER 2020-06-09 17:33 | Emergency (ER) | payer BC, OTHER ==
--- OUTSIDE RECORDS SUMMARY | 2020-06-09 17:37 | XMS REPORT | Continuity of Care Document ---
:1985 Author Organization [facility] Care Team Providers Name Role Phone [facility] Unavailable Un available Problems Problem Status Onset Classification Date Comments Sourc e Date Reported Complex partial Active Problem 06/03/2020 Mis doreen epileptic seizure Ne uro (disorder) History of - * Active Problem 06/03/2020 Misc her leukemia Neuro (context-dependen t category) Headache Active Problem 06/03/2020 [facility] (finding) Neuro Simple obesity Active Problem 06/03/2020 Misc her (disorder) Neuro Backache Active Problem 06/03/2020 [facility] (finding) Neuro Hemiplegia Active Problem 06/03/2020 [facility] (disorder) Neuro Visual Active Problem 06/03/2020 [facility] disturbance Neuro (disorder) Disorientated Active Problem 06/03/2020 Misch er (finding) Neuro Seizure disorder Active Problem 06/03/2020 Mi matt (disorder) Neuro Cervical Active Problem 06/03/2020 [facility] radiculopathy Neuro (disorder) Medications Medication Details Route Status Patient Ordering Order Source Instructions Provider Date 24 HR topiramate 100 mg = 1 Active Misc her 100 MG Extended cap, PO, 020 Neuro Release Capsule Bedtime, # [Trokendi] 90 cap, 2 Refill(s), Pharmacy: [facility] #[id number], 167.64, cm, 04/19/20 14:37:00 [employer], Height, 104.545, kg, 04/19/20 14:37:00 [employer], Weight Famotidine 40 mg, PO, Active Mischer Daily, # 60 020 Neuro tab, 0 Refill(s) Nulev 0.125 mg, Active Mischer PO, QID, 0 020 Neuro Refill(s) Reglan 0 Refill(s) Active [facility]ischer 020 Neuro oxcarbazepine 300 300 mg = 1 Active Mis doreen MG Oral Tablet tab, PO, 019 Neuro [Trileptal] BID, # 180 tab, 3 Refill(s), Pharmacy: [id number] 24 HR topiramate 100 mg = 1 Active Misc her 100 MG Extended cap, PO, 019 Neuro Release Capsule Daily, # 90 [Trokendi] cap, 3 Refill(s), Pharmacy: [id number] 24 HR topiramate 100 mg = 1 No Longer Mi matt 100 MG Extended cap, PO, Active 019 Neuro Release Capsule Daily, X 30 [Trokendi] day, # 30 cap, 3 Refill(s), Pharmacy: [facility] oxcarbazepine 300 300 mg = 1 No Longer M ischer MG Oral Tablet tab, PO, Active 019 Neuro [Trileptal] BID, X 30 day, # 60 tab, 3 Refill(s), Pharmacy: [facility] lisdexamfetamine 30 mg = 1 Active Misch er dimesylate 30 MG cap, PO, 019 Neuro Oral Capsule QAM, # 30 [Vyvanse] cap, 0 Refill(s) omeprazole 20 mg 20 mg = 1 Active Misch er oral delayed cap, PO, 019 Neuro release capsule Daily, # 30 cap, 2 Refill(s), Pharmacy: [facility] oxcarbazepine 300 300 mg = 1 Active Mis doreen MG Oral Tablet tab, PO, 019 Neuro [Trileptal] BID, # 60 tab, 2 Refill(s), Pharmacy: [facility] 24 HR topiramate 100 mg = 1 Active Misc her 100 MG Extended cap, PO, 019 Neuro Release Capsule Daily, # 30 [Trokendi] cap, 3 Refill(s), Pharmacy: [facility] topiramate 25 MG 25 mg = 1 Active Misch er Oral Tablet tab, PO, 019 Neuro [Topamax] BID, # 60 tab, 2 Refill(s), Pharmacy: [facility] Phenytoin sodium 200 mg = 2 Active Misc her 100 MG Extended cap, PO, 019 Neuro Release Capsule BID, # 120 [Dilantin] cap, 3 Refill(s), Pharmacy: [facility] Pharm[facility] [place] Alprazolam 0.5 MG 0.5 mg = 1 Active Mis doreen Oral Tablet tab, PO, 019 Neuro [Xanax] TID, 0 Refill(s) [facility], [facility] Phenytoin sodium 100 mg [...] Value Date Comments Source Systolic (mm Hg) 110 04/19/2020 [facility] Adrian ro Diastolic (mm Hg) 83 04/19/2020 [facility] Ne uro Heart Rate 84 04/19/2020 [facility] Respitory Rate 16 04/19/2020 [facility] Height 167.64 cm 04/19/2020 [facility] Weight 104.545 04/19/2020 [facility] BMI Calculated 37.2 04/19/2020 [facility] Systolic (mm Hg) 125 03/29/2020 [facility] Adrian ro Diastolic (mm Hg) 84 03/29/2020 [facility] Heart Rate 88 03/29/2020 [facility] Respitory Rate 16 03/29/2020 [facility] Height 167.64 cm 03/29/2020 [facility] Weight 106.364 03/29/2020 [facility] Neuro BMI Calculated 37.85 03/29/2020 [facility] Neuro Systolic (mm Hg) 112 02/29/2020 [facility] Adrian ro Diastolic (mm Hg) 72 02/29/2020 [facility] Ne uro Heart Rate 88 02/29/2020 [facility] Respitory Rate 16 02/29/2020 [facility] Height 167.64 cm 02/29/2020 [facility] Neuro Weight 100 02/29/2020 [facility] Neuro BMI Calculated 35.58 02/29/2020 [facility] Neuro Systolic (mm Hg) 120 12/23/2018 [facility] Adrian ro Diastolic (mm Hg) 85 12/23/2018 [facility] Ne uro Heart Rate 75 12/23/2018 [facility] Respitory Rate 16 12/23/2018 [facility] Neuro Height 167.64 cm 12/23/2018 [facility] Neuro Weight 90 12/23/2018 [facility] Neuro BMI Calculated 32.02 12/23/2018 [facility] Neuro BMI Calculated 32.02 11/27/2018 [facility] Neuro Weight 90 11/27/2018 [facility] Neuro Height 167.64 cm 11/27/2018 [facility] Heart Rate 74 11/27/2018 [facility] Respitory Rate 16 11/27/2018 [facility] Neuro Systolic (mm Hg) 106 11/27/2018 [facility] Adrian ro Diastolic (mm Hg) 79 11/27/2018 [facility] Ne [facility]ro BMI Calculated 33 10/16/2018 [facility] Weight 92.727 10/16/2018 [facility] Height 167.64 cm 10/16/2018 [facility] Neuro Heart Rate 78 10/16/2018 [facility] Respitory Rate 16 10/16/2018 [facility] Neuro Systolic (mm Hg) 129 10/16/2018 [facility] Adrian ro Diastolic (mm Hg) 87 10/16/2018 [facility] Ne uro BMI Calculated 32.67 10/01/2018 [facility] [place] [facility] Neuro Weight 91.818 10/01/2018 [facility] Height 167.64 cm 10/01/2018 [facility] Respitory Rate 16 10/01/2018 [facility] Neuro Heart Rate 83 10/01/2018 [facility] Systolic (mm Hg) 109 10/01/2018 [facility] Adrian ro Diastolic (mm Hg) 80 10/01/2018 [facility] Ne uro Encounters Location Location Encounter Encounter Reason Attending ADM DC Stat us Source Details Type Number For Provider Date Date Visit Outpatient [id number] David 10/01 [facility] MNA Outpatient [id number] David 10/01 10/02 [facility] [place] Neurology [facility] [place] Outpatient [id number] David 10/02 Active [facility] MNA Outpatient [id number] David 10/02 10/03 [facility] Neurology [facility] [place] Outpatient [id number] David 10/16 [facility] M[facility] [id number] David 10/16 10/17 [facility] [place] /2018 [facility] [place] Outpatient [id number] David 11/27 [facility] [place] M[facility] Outpatient [id number] David 11/27 11/28 [facility] [place] /2018 [facility] [place] Outpatient [id number] David 12/23 [facility] Outpatient [id number] David 12/23 12/24 [facility] [place] /2018 [facility] [place] Outpatient [id number] David 04/28 [facility] [place] [facility] [id number] David 04/28 04/28 [facility] Pre-Reg [place] /2019 [facility] [place] MNA Outside [id number] 05/21 05/23 Mis doreen Neurology Medical /2019 [facility] [place] Records Outpatient [id number] David 02/14 [facility] [place] [facility] Amb[facility] [id number] Marck 02/14 02/14 [facility] Pre-Reg [place] /2019 [facility] [place] Outpatient [id number] David 02/28 [facility] [place] [facility] Outpatient [id number] David 02/28 03/01 [facility] [place] /2019 [facility] [place] Outpatient [id number] David 03/29 [facility] Outpatient [id number] David 03/29 03/30 [facility] [place] /2019 [facility] [place] Outpatient [id number] David 04/11 [facility] [place] [facility] Outpatient [id number] David 04/11 04/12 [facility] [place] /2019 [facility] [place] Outpatient [id number] David 04/19 [facility] [place] [facility] Outpatient [id number] David 04/19 04/20 [facility] [place] /2019 [facility] [place] Outpatient [id number] David 05/31 [facility] [place] Outpatient [id number] David 05/31 [facility] [place] [facility] Outpatient [id number] David 05/31 06/01 [facility] [place] /2021 /2021 [facility] [place] MNA Ambulatory [id number] David 05/31 05/31 [facility] [place] Outpatient [id number] David 08/29 Active [facility] Ricardo Procedures Procedure Code Date Perfomer Comments Source Tubal ligation [id number] Natalia Ne uro Assessment and Plan No Data Provided for This Section Plan of Care No Data Provided for This Section Social History Social History Date Source Social History TypeResponse 10/01/2018 [facility] Employment/School Status: Employed. Smoking Status Never smoker; Exposure to Tobacco Smoke None; Cigarette Smoking Last 365 Days No; Reg Smoking Cessation Counseling No entered on: 05/31/20 Family History No Data Provided for This Section Advance Directives No Data Provided for This Section Functional Status No Data Provided for This Section
--- OUTSIDE RECORDS SUMMARY | 2020-06-09 17:37 | XMS REPORT | Clinical Summary ---
:1985 Author Organization [facility] Address [address] [place] [address] Care Team Providers Name Role Phone Soco Savage DO Primary Care Provider Allergies Active Allergy Reactions Severity Noted Date Comments Cephalexin Hives High 02/04/2020 Gadobutrol Other (See Comments) High 02/03/2020 Vomitin g 02/03/20 8:30pm - Per patient denied shortnes s of breath, hives, itchines s. Only nauseous/vomiti ng as a side effect after ad ministration of Gadavist. 06/06/20: Patien t Premedicated wi th IV Promethazine fo r Nausea prior to MRI. Patient reporte d Nausea but no Vomiting not ed after MRI Contrast given. Latex Hives High 02/04/2020 Ondansetron Hcl Headache High 02/04/2020 Medications Medication Sig Dispensed Refills Start End Status Date Date acetaminophen Take 500 mg by 0 A ctive (Tylenol Extra mouth every 6 Strength) 500 MG (six) hours as tablet needed for mild pain. topiramate (Trokendi Take 100 mg by 0 Active XR) 100 mg mouth nightly. capsule,extended release 24hr lisdexamfetamine Take 50 mg by 0 Active (Vyvanse) 50 MG mouth every capsule morning. famotidine (PEPCID) Take 20 mg by 0 Active 20 MG tablet mouth daily. montelukast Take 10 mg by 0 Acti ve (SINGULAIR) 10 mg mouth daily. tablet lisdexamfetamine Take 40 mg by 0 Discontinued (VYVANSE) 40 MG mouth daily. 020 ( Med List capsule (per patient, Cleanu p) stopped taking it last week - unknown reason); (per [place] [employer]cription [facility] Monitoring Program, last filled 12/18/19, quantity: 30, day supply: 30) topiramate (Trokendi Take 1 capsule 0 01/20 0 Discontinued XR) 100 mg by mouth daily. 020 (St op Taking at capsule,extended (Patient stopped Discharge) release 24hr taking this medication in the summer because she ran out of it) OXCARBAZEPINE ORAL (Patient stopped 0 01/20 0/ Discontinued taking this 020 (Stop Ta neena [...] EC tablet mouth daily for 30 days. metoclopramide HCl Take 1 tablet by 0 05/22 Discontinued (REGLAN ORAL) mouth as needed. 0 021 (Med List Cleanup) Active Problems Problem Noted Date Weakness of right arm 06/04/2020 COVID-19 virus detected 06/04/2020 Lower extremity weakness 02/16/2020 Debility 02/14/2020 Weakness 02/12/2020 Neurological dysfunction 02/12/2020 Optic neuritis 02/03/2020 Encounters Date Type Specialty Care Team Description 06/04/2020 - Hospital General Internal Lyndsay, Caleb, Weakness of right 06/07/2020 Encounter Medicine arm (Primary Dx) Kanchan Downey MD Patel, Amitkumar Natvarlal, MD 03/08/2020 Office Visit Ophthalmology Isidro Ruby, Functional vision problem (Primary Dx); Unspecified vis ual field defects 03/08/2020 Travel 02/15/2020 Telephone Ophthalmology Isidro Ruby MD 02/13/2020 Orders Only Radiology Lion Blandono 02/12/2020 - Hospital Neurosurgery Onaiwu, Silva, Weakness (Pr imary Dx); 02/16/2020 Encounter Yesi Bergeron MD 02/11/2020 Telephone Ophthalmology Isidro Ruby MD 02/07/2020 Telephone Ophthalmology Gabby García MA 02/03/2020 - Hospital Neurology Kim Guevara Optic neurit is (Primary Dx); 02/08/2020 Encounter MD Janice Acute intractable headache, unspecified headache type; Aldo Pineda, Intractabl e headache, unspecified chronicity pattern, unspecified headache type; Leukocytosis, unspecified type; Maisha Maddox Blurry vision; MD Jamarcus Paresthesia; Weakness 02/03/2020 Telephone Ophthalmology Gabby García MA after 06/09/2019 Immunizations Name Administration Dates Next Due FLUCELVAX QUAD PF 02/06/2020 Surgical History Surgery Date Site/Laterality Comments TUBAL LIGATION APPENDECTOMY CHOLECYSTECTOMY Medical History Medical History Date Comments Cancer (HCC) 2013 Epilepsy (HCC) 2019 Optic neuritis Cholelithiasis Depression Social History Tobacco Use Types Packs/Day Years Used Date Never Smoker Smokeless Tobacco: Never Used Alcohol Use Drinks/Week oz/Week Comments Yes occ drinker Sex Assigned at Date Recorded Not on file Last Filed Vital Signs Vital Sign Reading Time Taken Comments Blood Pressure 116/69 06/07/2020 11:18 AM LAUNCH OPERATOR Pulse 77 06/07/2020 11:18 AM LAUNCH OPERATOR Temperature 36.1 C (97 F) 06/07/2020 11:18 AM LAUNCH OPERATOR Respiratory Rate 18 06/07/2020 11:18 AM LAUNCH OPERATOR Oxygen Saturation 96% 06/07/2020 11:18 AM LAUNCH OPERATOR Inhaled Oxygen Concentration - - Weight 95.3 kg (210 lb) 06/06/2020 2:36 PM LAUNCH OPERATOR Height 167.6 cm (5' 6") 03/08/2020 12:47 PM LAUNCH OPERATOR Body Mass Index 33.89 03/08/2020 12:47 PM LAUNCH OPERATOR Plan of Treatment Health Maintenance Due Date Last Done Comments COVID-19 VACCINE (1 of 2) 2002 HEPATITIS C SCREENING 2004 CERVICAL CANCER SCREENING 02/02/2023 02/03/2020 INFLUENZA VACCINE Completed 02/06/2020, Procedures Procedure Name Priority Date/Time Associated Comments Diagnosis MRI CERVICAL SPINE W Routine 06/06/2020 4:01 Res ults for this CONTRAST PM LAUNCH OPERATOR procedure are i n the results section. MRI THORACIC SPINE W Routine 06/06/2020 4:01 Res ults for this CONTRAST PM LAUNCH OPERATOR procedure are i n the results section. MRI BRAIN W WO Routine 06/06/2020 4:00 Results f or this CONTRAST PM LAUNCH OPERATOR procedure are i n the results section. FIBRINOGEN Routine 06/06/2020 12:12 Results for this PM LAUNCH OPERATOR procedure are i n the results section. LDH Routine 06/06/2020 12:12 Results for this PM LAUNCH OPERATOR procedure are i n the results section. D-DIMER Routine 06/06/2020 12:12 Results for this PM LAUNCH OPERATOR procedure are i n the results section. FERRITIN LEVEL Routine 06/06/2020 12:12 Results f or this PM LAUNCH OPERATOR procedure are i n the results section. INTERLEUKIN 6 Routine 06/06/2020 12:12 Results fo r this PM LAUNCH OPERATOR procedure are i n the results section. C-REACTIVE PROTEIN Routine 06/06/2020 12:12 Resul ts for this PM LAUNCH OPERATOR procedure are i n the results section. CT CHEST WO CONTRAST Routine 06/06/2020 12:03 Res ults for this PM LAUNCH OPERATOR procedure are i n the results section. HCG QUALITATIVE, URINE STAT 06/04/2020 7:58 R esults for this SCREEN AM LAUNCH OPERATOR procedure are i n the results section. URINALYSIS SCREEN AND Routine 06/04/2020 7:58 Re sults for this MICROSCOPY, WITH AM LAUNCH OPERATOR procedure a re in REFLEX TO CULTURE the result s section. URINE CULTURE Routine 06/04/2020 7:58 Results fo r this AM LAUNCH OPERATOR procedure are i n the results section. COVID-19 QUALITATIVE Routine 06/04/2020 7:45 Res ults for this PCR AM LAUNCH OPERATOR procedure are i n the results section. HC COMPLETE BLD COUNT Routine 06/04/2020 2:45 Re sults for this W/AUTO DIFF AM LAUNCH OPERATOR procedure are i n the results section. ESTIMATED GFR Routine 06/04/2020 1:56 Results fo r this AM LAUNCH OPERATOR procedure are i n the results section. COMPREHENSIVE Routine 06/04/2020 1:56 Results fo r this METABOLIC PANEL AM LAUNCH OPERATOR procedure ar e in the results section. OCT, OPTIC NERVE - OU Routine 03/08/2020 1:34 Unspecified vis ual - BOTH EYES PM LAUNCH OPERATOR field defects Procedure Note - Isidro Ruby MD - 05/24/2020 5:54 PM LAUNCH OPERATOR AUTOMATED VISUAL FIELD, Routine 03/08/2020 1:34 PM LAUNCH OPERATOR Unspecified visual field EXTENDED - OU - BOTH EYES defects Procedure Note - Isidro Ruby MD - 05/24/2020 5:54 PM LAUNCH OPERATOR DURABLE MEDICAL EQUIPMENT Routine 02/16/2020 10:31 AM CDT Results for this procedure are i n the results section . ESTIMATED GFR Routine 02/16/2020 5:10 AM CDT Res ults for this procedure are i n the results section . BASIC METABOLIC PANEL Routine 02/16/2020 5:10 AM CDT Results for this procedure are i n the results section . DURABLE MEDICAL EQUIPMENT Routine 02/15/2020 3:56 PM CDT Results for this procedure are i n the results section . EMG Routine 02/15/2020 12:46 PM CDT Resu lts for this procedure are i n the results section . ESTIMATED GFR Routine 02/15/2020 5:00 AM CDT Res ults for this procedure are i n the results section . BASIC METABOLIC PANEL Routine 02/15/2020 5:00 AM CDT Results for this procedure are i n the results section . HC COMPLETE BLD COUNT W/AUTO Routine 02/15/2020 5:00 AM CDT Results for this DIFF procedure are i n the results section . VISUAL EVOKED POTENTIALS Routine 02/14/2020 11:52 AM CDT Results for this (VEP) procedure are i n the results section . ESTIMATED GFR Routine 02/14/2020 4:15 AM CDT Res ults for this procedure are i n the results section . BASIC METABOLIC PANEL Routine 02/14/2020 4:15 AM CDT Results for this procedure are i n the results section . HC COMPLETE BLD COUNT W/AUTO Routine 02/14/2020 4:15 AM CDT Results for this DIFF procedure are i n the results section . MRI LUMBAR SPINE W WO Routine 02/13/2020 10:28 AM CDT Results for this CONTRAST procedure are i n the results section . MRI BRAIN VENOGRAM Routine 02/13/2020 9:47 AM CDT Results for this procedure are i n the results section . HC COMPLETE BLD COUNT W/AUTO Routine 02/13/2020 4:05 AM CDT Results for this DIFF procedure are i n the results section . ESTIMATED GFR Routine 02/13/2020 4:00 AM CDT Res ults for this procedure are i n the results section . BASIC METABOLIC PANEL Routine 02/13/2020 4:00 AM CDT Results for this procedure are i n the results section . HC COMPLETE BLD COUNT W/AUTO Routine 02/12/2020 10:18 AM CDT Results for this DIFF procedure are i n the results section . ESTIMATED GFR Routine 02/12/2020 8:00 AM CDT Res ults for this procedure are i n the results section . BASIC METABOLIC PANEL Routine 02/12/2020 8:00 AM CDT Results for this procedure are i n the results section . VENIPUNC NEED PHYS SKILL,DX Routine 02/08/2020 10:39 AM CDT Results for this OR RX procedure are i n the results section . MISCELLANEOUS REFERRAL TEST Routine 02/08/2020 9:00 AM CDT Results for this procedure are i n the results section . US DUPLEX VENOUS UPPER STAT 02/07/2020 5:26 PM CDT Results for this EXTREMITY RIGHT procedure ar e in the results section . VENIPUNC NEED PHYS SKILL,DX Routine 02/07/2020 9:18 AM CDT Results for this OR RX procedure are i n the results section . ESTIMATED GFR Routine 02/07/2020 5:00 AM CDT Res ults for this procedure are i n the results section . BASIC METABOLIC PANEL Routine 02/07/2020 5:00 AM CDT Results for this procedure are i n the results section . HC COMPLETE BLD COUNT W/AUTO Routine 02/07/2020 5:00 AM CDT Results for this DIFF procedure are i n the results section . ESTIMATED GFR Routine 02/06/2020 6:18 AM CDT Res ults for this procedure are i n the results section . BASIC METABOLIC PANEL Routine 02/06/2020 6:18 AM CDT Results for this procedure are i n the results section . HC COMPLETE BLD COUNT W/AUTO Routine 02/06/2020 6:18 AM CDT Results for this DIFF procedure are i n the results section . XR CHEST 1 VW PORTABLE Routine 02/05/2020 9:27 PM CDT Results for this procedure are i n the results section . ECG 12-LEAD Routine 02/05/2020 9:12 PM CDT Resu lts for this procedure are i n the results section . HC COMPLETE BLD COUNT W/AUTO Routine 02/05/2020 6:00 AM CDT Results for this DIFF procedure are i n the results section . ESTIMATED GFR Routine 02/05/2020 4:00 AM CDT Res ults for this procedure are i n the results section . BASIC METABOLIC PANEL Routine 02/05/2020 4:00 AM CDT Results for this procedure are i n the results section . IGG SYNTHESIS RATE STUDY Routine 02/04/2020 11:00 AM CDT Results for this procedure are i n the results section . AFB CULTURE Routine 02/04/2020 10:56 AM CDT Resu lts for this procedure are i n the results section . FUNGUS CULTURE Routine 02/04/2020 10:56 AM CDT Re sults for this procedure are i n the results section . IR LUMBAR PUNCTURE STAT 02/04/2020 10:00 AM CDT Results for this procedure are i n the results section . MISCELLANEOUS REFERRAL TEST Routine 02/04/2020 9:56 AM CDT Results for this procedure are i n the results section . MISCELLANEOUS REFERRAL TEST Routine 02/04/2020 9:56 AM CDT Results for this procedure are i n the results section . OLIGOCLONAL BANDING, CSF Routine 02/04/2020 9:56 AM CDT Results for this procedure are i n the results section . ANGIOTENSIN CONVERTING Routine 02/04/2020 9:56 AM CDT Results for this ENZYME, CSF procedure are i n the results section . WEST NILE VIRUS ANTIBODY Routine 02/04/2020 9:56 AM CDT Results for this PANEL, CSF procedure are i n the results section . FLOW CYTOMETRY EVALUATION Routine 02/04/2020 9:56 AM CDT Results for this procedure are i n the results section . VARICELLA ZOSTER BY PCR Routine 02/04/2020 9:56 AM CDT Results for this procedure are i n the results section . HERPES SIMPLEX VIRUS BY PCR Routine 02/04/2020 9:56 AM CDT Results for this procedure are i n the results section . ENTEROVIRUS BY PCR Routine 02/04/2020 9:56 AM CDT Results for this procedure are i n the results section . ALBERT NOBLE VIRUS (EBV) BY Routine 02/04/2020 9:56 AM CDT Results for this PCR procedure are i n the results section . CYTOMEGALOVIRUS BY PCR Routine 02/04/2020 9:56 AM CDT Results for this procedure are i n the results section . LYME DISEASE REFLEXIVE PANEL, Routine 02/04/2020 9:56 AM CDT Results for this CSF procedure are i n the results section . VDRL, CSF SCREEN Routine 02/04/2020 9:56 AM CDT Results for this procedure are i n the results section . IGG SYNTHESIS RATE STUDY Routine 02/04/2020 9:56 AM CDT Results for this procedure are i n the results section . GLUCOSE LEVEL, CSF Routine 02/04/2020 9:56 AM CDT Results for this procedure are i n the results section . CSF CELL COUNT WITH Routine 02/04/2020 9:56 AM CDT Results for this DIFFERENTIAL procedure are i n the results section . GRAM STAIN Routine 02/04/2020 9:56 AM CDT Resu lts for this procedure are i n the results section . CRYPTOCOCCAL ANTIGEN SCREEN Routine 02/04/2020 9:56 AM CDT Results for this procedure are i n the results section . CSF CULTURE Routine 02/04/2020 9:56 AM CDT Resu lts for this procedure are i n the results section . EEG AWAKE/ASLEEP LESS THAN 41 Routine 02/04/2020 7:19 AM CDT Results for this MIN procedure are i n the results section . ECG 12-LEAD STAT 02/04/2020 4:50 AM CDT Resu lts for this procedure are i n the results section . BLOOD CULTURE, AEROBIC & Routine 02/04/2020 1:50 AM CDT Results for this ANAEROBIC procedure are i n the results section . ESTIMATED GFR Routine 02/04/2020 1:40 AM CDT Res ults for this procedure are i n the results section . BASIC METABOLIC PANEL Routine 02/04/2020 1:40 AM CDT Results for this procedure are i n the results section . HC COMPLETE BLD COUNT W/AUTO Routine 02/04/2020 1:40 AM CDT Results for this DIFF procedure are i n the results section . MISCELLANEOUS REFERRAL TEST Routine 02/04/2020 1:40 AM CDT Results for this procedure are i n the results section . BLOOD CULTURE, AEROBIC & Routine 02/04/2020 1:40 AM CDT Results for this ANAEROBIC procedure are i n the results section . URINE DRUGS OF ABUSE SCREEN STAT 02/04/2020 12:56 AM CDT Results for this procedure are i n the results section . URINALYSIS SCREEN AND Routine 02/04/2020 12:56 AM CDT Results for this MICROSCOPY, WITH REFLEX TO p rocedure are in the CULTURE results section . URINE CULTURE Routine 02/04/2020 12:56 AM CDT Res ults for this procedure are i n the results section . COVID-19 QUALITATIVE PCR STAT 02/03/2020 11:41 PM CDT Results for this procedure are i n the results section . MRI THORACIC SPINE W CONTRAST STAT 02/03/2020 10:12 PM CDT Results for this procedure are i n the results section . MRI CERVICAL SPINE W CONTRAST STAT 02/03/2020 10:12 PM CDT Results for this procedure are i n the results section . MRI BRAIN & ORBIT W WO STAT 02/03/2020 10:12 PM CDT Results for this CONTRAST procedure are i n the results section . CYTOLOGY (NON-GYNECOLOGICAL) Routine 02/03/2020 8:17 PM CDT Results for this REQUEST procedure are i n the results section . ESTIMATED GFR STAT 02/03/2020 6:35 PM CDT Res ults for this procedure are i n the results section . COMPREHENSIVE METABOLIC PANEL STAT 02/03/2020 6:35 PM CDT Results for this procedure are i n the results section . B. BURGDORFERI ABS TOTAL, STAT 02/03/2020 6:25 PM CDT Results for this SERUM procedure are i n the results section . VITAMIN D 25 HYDROXY LEVEL STAT 02/03/2020 6:25 PM CDT Results for this procedure are i n the results section . HIV AG/AB COMBINATION STAT 02/03/2020 6:25 PM CDT Results for this procedure are i n the results section . SYPHILIS TOTAL ANTIBODY STAT 02/03/2020 6:25 PM CDT Results for this procedure are i n the results section . T3 STAT 02/03/2020 6:25 PM CDT Resu lts for this procedure are i n the results section . T4, FREE STAT 02/03/2020 6:25 PM CDT Resu lts for this procedure are i n the results section . THYROID STIMULATING HORMONE STAT 02/03/2020 6:25 PM CDT Results for this procedure are i n the results section . RHEUMATOID FACTOR STAT 02/03/2020 6:25 PM CDT Results for this procedure are i n the results section . SEDIMENTATION RATE STAT 02/03/2020 6:25 PM CDT Results for this procedure are i n the results section . CORTISOL LEVEL, RANDOM STAT 02/03/2020 6:25 PM CDT Results for this procedure are i n the results section . HOMOCYSTINE, PLASMA STAT 02/03/2020 6:25 PM CDT Results for this procedure are i n the results section . C-REACTIVE PROTEIN STAT 02/03/2020 6:25 PM CDT Results for this procedure are i n the results section . VITAMIN B12 LEVEL STAT 02/03/2020 6:25 PM CDT Results for this procedure are i n the results section . FOLATE LEVEL STAT 02/03/2020 6:25 PM CDT Resu lts for this procedure are i n the results section . ELMER STAT 02/03/2020 6:25 PM CDT Resu lts for this procedure are i n the results section . HC COMPLETE BLD COUNT W/AUTO STAT 02/03/2020 6:25 PM CDT Results for this DIFF procedure are i n the results section . CT HEAD WO CONTRAST STAT 02/03/2020 4:14 PM CDT Results for this procedure are i n the results section . HCG QUANTITATIVE, SERUM STAT 02/03/2020 2:27 PM CDT Results for this procedure are i n the results section . after 06/09/2019 Results MRI Thoracic Spine W Contrast (06/06/2020 4:01 PM LAUNCH OPERATOR)Only the most recent of2 resultswithin the time period is included. Specimen Narrative Performed At EXAMINATION: MRI THORACIC SPINE W CONT RAST [facility] CLINICAL HISTORY: Evaluation of right sided hemipare sis hemisensory loss COMPARISON: Thoracic spinal MRI on 02/03/2020, concu rrent cervical and lumbar spinal MRIs on 06/06/2020. TECHNIQUE: Postcontrast thoracic spine MRI after intra venous contrast administration, MS protocol. FINDINGS: The spinal cord is normal in signal with no abnormal enhancement. Normal thoracic kyphosis and alignment. Vertebral body heights are preserved. Bone marrow sign al is unremarkable with no evidence of acute fracture or suspicious marro w-replacing lesion. T8-9: Again noted is chronic Schmorl's node along T8 i nferior endplate, moderate disc height loss, and shallow broad-based lef t paracentral disc protrusion without significant spinal ca nal stenosis. No significant neural foraminal stenosis . Visualized paraspinal soft tissues are u nremarkable. IMPRESSION: Stable thoracic spinal MRI with unremarkable spinal co rd, no evidence of demyelinating lesion. Stable mild spondylosis at T8-9 without significant spinal canal or neural jad inal stenosis. [id number] Procedure Note Hm Interface, Radiology Results Incoming - 06/06/2020 5:16 PM LAUNCH OPERATOR EXAMINATION: MRI THORACIC SPINE W CONTRAST CLINICAL HISTORY: Evaluation of right s ided hemiparesis hemisensory loss COMPARISON: Thoracic spinal MRI on 01/19, concurrent cervical and lumbar spinal MRIs on 06/06/2020. TECHNIQUE: Postcontrast thoracic spine M RI after intravenous contrast administration, MS protocol. FINDINGS: The spinal cord is normal in signal with no abnormal enhancement. Normal thoracic kyphosis and alignment. Vertebral body heights are preserved. Lalit ne marrow signal is unremarkable with no evidence of acute fracture or suspicious marrow-replacing lesion. T8-9: Again noted is chronic Schmorl's n ode along T8 inferior endplate, moderate disc height loss, and shallow broad-based left paracentral disc protrusion without significant spinal canal stenosis. No significant neural foraminal stenosis . Visualized paraspinal soft tissues are u nremarkable. IMPRESSION: Stable thoracic spinal MRI with unremark able spinal cord, no evidence of demyelinating lesion. Stable mild spondylosis at T8-9 without significant spinal canal or neural foraminal stenosis. [id number] Performing Organization Address City/State/ZIP Code Phon e Number [facility] [id number] [place] [address] MRI Cervical Spine W Contrast (06/06/2020 4:01 PM LAUNCH OPERATOR)Only the most recent of2 resultswithin the time period is included. Specimen Narrative Performed At EXAMINATION: MRI CERVICAL SPINE W CONTRA [facility] CLINICAL HISTORY: Right sided hemiparesi s hemisensory loss COMPARISON: None TECHNIQUE: Multiplanar multisequence pre and post cont rast enhanced examination was performed of the cervica l spine. FINDINGS: Vertebral body heights are maintained. The cervicomed ullary junction is unremarkable. No cord signal abnormality identified. N o focal marrow lesions. No masses are present in the visualized preve rtebral soft tissues. No enhancing lesion identified on the postcontrast images. Cervical alignment is preserved with normal lordosis. There is no significant spondylolisthesis. Axial images through the disc spaces dem onstrate the following: C1-C2: The atlantoaxial interval is intact with no sig nificant disease or stenosis. C2-C3: No significant posterior disc disease, spinal c anal or neural foraminal stenosis. C3-C4: No significant posterior disc disease, spinal c anal or neural foraminal stenosis. C4-C5: No significant posterior disc disease, spinal c anal or neural foraminal stenosis. C5-C6: No significant posterior disc disease, spinal c anal or neural foraminal stenosis. C6-C7: No significant posterior disc disease, spinal c anal or neural foraminal stenosis. C7-T1: No significant posterior disc disease, spinal c anal or neural foraminal stenosis. No significant posterior disc disease, spinal canal or neural foraminal stenosis at other visualized levels. IMPRESSION: No significant cervical spine abnormality identified. No enhancing lesion identified. [id number] Procedure Note Hm Interface, Radiology Results Incoming - 06/06/2020 5:11 PM LAUNCH OPERATOR EXAMINATION: MRI CERVICAL SPINE W CONTRAST CLINICAL HISTORY: Right sided hemiparesi s hemisensory loss COMPARISON: None TECHNIQUE: Multiplanar multisequence pre and post contrast enhanced examination was performed of the cervical spine. FINDINGS: Vertebral body heights are maintained. The cervicomedullary junction is unremarkable. No cord signal abnormality identified. No focal marrow lesions. No masses are present in the visualized prevertebral soft tissues. No enhancing lesion identified on the postcontrast images. Cervical alignment is preserved with nor mal lordosis. There is no significant spondylolisthesis. Axial images through the disc spaces dem onstrate the following: C1-C2: The atlantoaxial interval is inta ct with no significant disease or stenosis. C2-C3: No significant posterior disc dis ease, spinal canal or neural foraminal stenosis. C3-C4: No significant posterior disc dis ease, spinal canal or neural foraminal stenosis. C4-C5: No significant posterior disc dis ease, spinal canal or neural foraminal stenosis. C5-C6: No significant posterior disc dis ease, spinal canal or neural foraminal stenosis. C6-C7: No significant posterior disc dis ease, spinal canal or neural foraminal stenosis. C7-T1: No significant posterior disc dis ease, spinal canal or neural foraminal stenosis. No significant posterior disc disease, s naseem canal or neural foraminal stenosis at other visualized levels. IMPRESSION: No significant cervical spine abnormalit y identified. No enhancing lesion identified. [id number] Performing Organization Address City/State/ZIP Code Phon e Number [facility] [id number] [place] [address] MRI Brain W Wo Contrast (06/06/2020 4:00 PM LAUNCH OPERATOR) Specimen Narrative Performed At This result has an attachment that is no t available. EXAMINATION: MRI BRAIN W WO [facility]AST [facility] CLINICAL H[facility]: RIght sided hemiparesis hemisens ory loss COMPARISON: Orbit and brain MRI on 02/03/2020. TECHNIQUE: Brain MRI without and with in travenous gadolinium contrast, MS protocol. FINDINGS: The brain appears stable, normal in sign al and configuration with no evidence of acute infarction, hemorrhage, mass lesion, or abnormal enhancement. Ventricles, sulci, and cisterns are stab le and normal in size and configuration. No extra-axial fluid collection. Flow voids of the major intracranial vessels are intact. Mucous retention cysts are again noted a long the floor of the right maxillary sinus. Mastoid air cells are clear. Bones, orbits, and soft tissues are unremarkable. IMPRESSION: Unremarkable brain MRI with no evidence of demyelinating lesion or other acute intracranial abnormality. 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 TECHNIQUE: Brain MRI without and with in travenous gadolinium contrast, MS protocol. FINDINGS: The brain appears stable, normal in sign al and configuration with no evidence of acute infarction, hemorrhage, mass lesion, or abnormal enhancement. Ventricles, sulci, and cisterns are stab le and normal in size and configuration. No extra-axial fluid collection. Flow voids of the major intracranial vessels are intact. Mucous retention cysts are again noted a long the floor of the right maxillary sinus. Mastoid air cells are clear. Bones, orbits, and soft tissues are unremarkable. IMPRESSION: Unremarkable brain MRI with no evidence of demyelinating lesion or other acute intracranial abnormality. [id number] Performing Organization Address City/State/ZIP Code Phon e Number RADIANT [address] [place] [address] Interleukin 6 (06/06/2020 12:12 PM LAUNCH OPERATOR) [facility] Interleukin 6 <2.5 0.0 - 10.5 NEL CHAVEZ Comment: pg/mL HOSPITAL This test has not been FDA cleared or approved. This test has been authorized by FDA under an EUA for use by authorized laboratories. This test has been authorized only to assist in identi fying severe inflammatory response, when used as an aid in determin ing the risk of intubation with mechanical ventilation in confirmed CO VID-19 patients. This test is only authorized for the duration of the d eclaration that circumstances exist justifying the authorization of em ergency use of medical devices under Sectio n 564(b)(1) of the Act, 21 U.S.C. 360bbb-3(b)(1), unless the authorization is terminated or revoked sooner. Specimen Blood Performing Organization Address City/[facility]/ZIP Code Phon e Number [facility] DEPARTMENT OF PATHOLOGY AND [address] [place] [address] [phone] [address] Fibrinogen (06/06/2020 12:12 PM LAUNCH OPERATOR) [facility] Fibrinogen 293 200 - 450 mg/dL [facility] L Specimen Blood Performing Organization Address City/[facility]/ZIP [facility] Phon e Number [facility] DEPARTMENT OF PATHOLOGY AND [address] [place] [address] [phone] [address] D-dimer (06/06/2020 12:12 PM LAUNCH OPERATOR) Pathologist [facility] [place] D-dimer 0.35 0.00 - 0.40 NEL CHAVEZ Comment: ug/mL FEU HOSPITAL Units are ug/ml Fibrinogen Equivalent Unit. When combined with low clinical probability, D-dimer r esults of less than 0.5 ug/ml FEU have a good negative pred ictive value in excluding PE or DVT. For D-dimer results greater than 0.5 ug/ml FEU furth er testing is indicated if PE or DVT is suspected clini abdulaziz. Elevated D-dimer results have been reported in DVT, PE , and DIC cases and may indicate the presence of a clot. D-dimer results may be elevated due to old age, pregna ncy, inflammatory diseases, trauma, post-operative states, sepsis, and malignancies. Specimen Blood Performing Organization Address City/[facility]/ZIP [facility] Phon e Number [facility] DEPARTMENT OF PATHOLOGY AND [address] [place] [phone] C-reactive protein (06/06/2020 12:12 PM LAUNCH OPERATOR)Only the most recent of2 results within the time period is included. Pathologist Sig nature CRP <0.30 0.00 - 0.50 mg/dL [facility] Specimen Blood Performing Organization Address [facility] Phon e Number [facility] DEPARTMENT OF PATHOLOGY AND [address] [place] [phone] LDH (06/06/2020 12:12 PM LAUNCH OPERATOR) Pathologist [facility] LDH 136 87 - 225 U/L [facility] Specimen Blood Performing Organization Address City/[facility] Phon e Number [facility] DEPARTMENT OF PATHOLOGY AND [address] [place] [address] Ferritin level (06/06/2020 12:12 PM LAUNCH OPERATOR) Pathologist Sig [facility] Ferritin level <13 (A) 13 - 150 ng/mL [facility] Specimen Blood Performing Organization Address [facility] Phon e Number [facility] DEPARTMENT OF PATHOLOGY AND [address] [place] [address] Chest Wo Contrast (06/06/2020 12:03 PM LAUNCH OPERATOR) Specimen Narrative Performed At EXAMINATION: CT CHEST WO CONTRAST HM [facility] HISTORY: COVID-19 positive with chest ti ghtness TECHNIQUE: CT examination of the chest was performed w ithout intravenous contrast. Radiation dose-reduction techniques were use d, whereby technical factors are evaluated and adjusted to ensure appropriate moderation of exposure. Automated dose m anagement technology is applied to adjust radiation exposure wh ile achieving a diagnostic quality image. COMPARISON: No prior CT available. FINDINGS: Devices: None. Pulmonary: Minimal nodular groundglass opacity along t he periphery of the right upper lobe, as well as base. No consolidativ e pulmonary opacity. No suspicious pulmonary nodule. Pleural: No effusion or pneumothorax. Cardiovascular: Heart size normal. No pericardial effu tom. No appreciable calcific coronary artery dis ease. Mediastinum/Nodes: No thoracic lymphaden opathy. Musculoskeletal: No acute or aggressive- appearing osseous lesion. Upper abdomen: Cholecystectomy clips. Up per limit of normal-size spleen. IMPRESSION: 1.Few faint peripheral groundglass opacities in both l ower lobes. Together with the positive lab findings, this is jt tible with mild Covid pneumonia. [facility]-[id number] Procedure Note Interface, Radiology Results Incoming - 06/06/2020 12:11 PM LAUNCH OPERATOR EXAMINATION: CT CHEST WO CONTRAST HISTORY: COVID-19 positive with chest ti ghtness TECHNIQUE: CT examination of the chest w as performed without intravenous contrast. Radiation dose-reduction techniques were used, whereby technical factors are evaluated and adjusted to ensure appropriate moderation of exposure. Automated dose management technology is applied to adjust radiati on exposure while achieving a diagnostic quality image. COMPARISON: No prior CT available. FINDINGS: Devices: None. Pulmonary: Minimal nodular groundglass o pacity along the periphery of the right upper lobe, as well as base. No consolidative pulmonary opacity. No suspicious pulmonary nodule. Pleural: No effusion or pneumothorax. Cardiovascular: Heart size normal. No pe ricardial effusion. No appreciable calcific coronary artery disease. Mediastinum/Nodes: No thoracic lymphaden opathy. Musculoskeletal: No acute or aggressive- appearing osseous lesion. Upper abdomen: Cholecystectomy clips. Up per limit of normal-size spleen. IMPRESSION: 1.Few faint peripheral groundglass opaci ties in both lower lobes. Together with the positive lab findings, this is compatible with mild Covid pneumonia. [facility]-[id number] Performing Organization Address City/State/ZIP Code Phon e Number [facility] [address] [place] [address] Urinalysis screen and microscopy, with reflex to culture (06/04/2020 7:58 AM LAUNCH OPERATOR)Only the most recent of2 resultswithin the time period is included. Specimen site Clean catch [facility] Color, UA Yellow [facility] Appearance, UA Clear [facility] Specific gravity, >1.060 1.001 - 1.035 [facility] UA (H)Comment: HOSPITAL Results double checked. pH, UA 6.0 5.0 - 8.5 [facility] Protein, UA Negative Negative [facility] Glucose, UA Negative Negative [facility] Ketones, UA Negative Negative [facility] Bilirubin, UA Negative Negative [facility] Blood, UA Negative Negative [facility] Nitrite, UA Negative Negative [facility] Urobilinogen, UA <2.0 <2.0 [facility] Leukocyte esterase, Negative Negative [facility] Epithelial cells, 10 /HPF [facility] WBC, UA 2 0 - 4 /HPF [facility] RBC, UA 2 0 - 5 /HPF [facility] Bacteria, UA None seen None seen [facility] Yeast, UA None seen [facility] Yeast with None seen [facility] pseudohyphae, [facility] Specimen Urine Performing Organization Address City/[facility] Phon e Number [facility] DEPARTMENT OF PATHOLOGY AND [address] [place] [phone] hCG qualitative, urine screen (06/04/2020 7:58 AM LAUNCH OPERATOR) Pathologist [facility] [place] hCG qualitative, NegativeComment: [facility] urine Sensitivity of [facility] test: 25 mIU/mL Specimen Urine Performing Organization Address City/[facility] Phon e Number [facility] DEPARTMENT OF PATHOLOGY AND [address] [place] [address] [address] Urine culture (06/04/2020 7:58 AM LAUNCH OPERATOR)Only the most recent of2 resultswithin the time period is included. Pathologist Sig nature Urine culture SEE COMMENTComment: [facility] Bacteriuria screen HOSPITAL negative. Specimen Performing Organization Address City/[facility] Phon e Number [facility] DEPARTMENT OF PATHOLOGY AND [address] [place] [address] 0 [place] [phone] COVID-19 qualitative PCR (06/04/2020 7:45 AM LAUNCH OPERATOR)Only the most recent of2 resultswithin the time period is included. Interpretation Positive results [facility] are indicative of EPISCOPALIAN active infection HOSPITAL with 2019-nCoV but do not rule out bacterial infection or coinfection with other viruses. The agent detected may not be the definite cause of disease. COVID-19 qualitative Detected (A) Not-Detected [facility] PCR result [facility] COVID-19 qualitative See link below for [facility] PCR PDF Lab EPISCOPALIAN ReportComment: HOSPITAL Specimen Nasopharyngeal swab Performing Organization Address [facility] Phon e Number [facility] DEPARTMENT OF PATHOLOGY AND [address] [place] [address] [phone] CBC with platelet and differential (06/04/2020 2:45 AM LAUNCH OPERATOR)Only the most recent of10 resultswithin the time period is included. WBC 4.53 4.50 - 11.00 [facility]/uL [facility] RBC 4.45 4.20 - 5.50 [facility] HGB 12.6 12.0 - 16.0 [facility] HCT 38.5 37.0 - 47.0 % [facility] MCV 86.5 82.0 - 100.0 [facility] MCH 28.3 27.0 - 34.0 pg [facility] MCHC 32.7 31.0 - 37.0 [facility] RDW - SD 39.6 37.0 - 55.0 fL [facility] MPV 11.8 8.8 - 13.2 fL [facility] Platelet count 194 150 - 400 k/uL [facility] Nucleated RBC 0.00 /100 WBC [facility] Neutrophils 49.9 39.0 - 69.0 % [facility] Lymphocytes 39.1 25.0 - 45.0 % [facility] Monocytes 9.9 0.0 - 10.0 % [facility] Eosinophils 0.7 0.0 - 5.0 % [facility] Basophils 0.2 0.0 - 1.0 % [facility] Immature granulocytes 0.2Comment: 0.0 - 1.0 % [facility] "Immature [facility] granulocytes" (promyelocytes , myelocytes, metamyelocytes ) Specimen Blood Performing Organization Address [facility] Phon e Number [facility] DEPARTMENT OF PATHOLOGY AND [address] [place] [address] [phone] [address] Estimated GFR (06/04/2020 1:56 AM LAUNCH OPERATOR)Only the most recent of11 resultswithin the time period is included. Pathologist [facility] [place] Estimated GFR 88 mL/min/1.73 [facility] Comment: m2 HOSPITAL Catergory Units Interpretation G1 [...] Organization Address City/State/ZIP Code Phon e Number [facility] DEPARTMENT OF PATHOLOGY AND [address] [place], [place] [address] GENOMIC MEDICINE [facility] [address] [place] [address] Comprehensive metabolic panel (06/04/2020 1:56 AM LAUNCH OPERATOR)Only the most recent of2 resultswithin the time period is included. Pathologist [facility] [place] Sodium 137 135 - 148 [facility] mEq/L [facility] Potassium 3.3 (L) 3.5 - 5.0 [facility] mEq/L [facility] Chloride 106 98 - 112 [facility] mEq/L HOSPITAL CO2 21 (L) 24 - 31 mEq/L [facility] Anion gap 10@ANIO 7 - 15 mEq/L [facility] BUN 11 6 - 20 mg/dL [facility] Creatinine 0.86 0.50 - 0.90 [facility] mg/dL HOSPITAL Glucose 113 (H) 65 - 99 mg/dL [facility] Calcium 8.1 (L) 8.3 - 10.2 [facility] mg/dL HOSPITAL Protein 6.7 6.3 - 8.3 [facility] Comment: g/dL [facility] [place] 4.6-7.0 g/dL 1 week 4.4-7.6 g/dL 7 months-1year 5.1-7.3 g/dL 1-2 years 5.6-7.5 g/dL >3 years 6.0-8.0 g/dL 18-150 6.3-8.3 g/dL Albumin 3.9 3.5 - 5.0 [facility] g/dL HOSPITAL A/G ratio 1.4 0.7 - 3.8 [facility] Alkaline phosphatase 69 35 - 104 U/L [facility] AST 21 10 - 35 U/L [facility] ALT 35 5 - 50 U/L [facility] Total bilirubin 0.3 0.0 - 1.2 [facility] mg/dL HOSPITAL Specimen Blood Performing Organization Address [facility]/ZIP Code Phon e Number [facility] DEPARTMENT OF PATHOLOGY AND [address] [place] [phone] GENOMIC MEDICINE [facility] [address] [place] [phone] OCT, Optic Nerve - OU (03/08/2020 1:34 PM LAUNCH OPERATOR) Specimen Procedure Note Isidro Ruby MD - 05/24/2020 5:54 PM LAUNCH OPERATOR Automated Visual Field, Extended - OU (03/08/2020 1:34 PM LAUNCH OPERATOR) Specimen Procedure Note Isidro Ruby MD - 05/24/2020 5:54 PM LAUNCH OPERATOR 3 in 1 [employer] (02/16/2020 10:31 AM CDT)Only the most recent of2 resultswithin the time period is included. SUPPLIER NAME [employer] HEALTH SUPPLIER PHONE [phone] [facility] HEALTH ORDER STATUS Delivery Successful [facility] HEALTH DELIVERY NOTE [facility] HEALTH REQUESTED DELIVEY 02/16/2020 [place] DATE HEALTH ITEM DESCRIPTION 3 in 1 [facility] CommodeComment: HEALTH Qty: 1 ACTUAL DELIVERY DATE 02/16/2020 [facility] HEALTH ITEM DESCRIPTION 3 in 1 [facility] CommodeComment: HEALTH Qty: 1 Specimen Performing Organization Address City/[facility] Phon e Number [facility] Exaptive Basic metabolic panel (02/16/2020 5:10 AM CDT)Only the most recent of9 results within the time period is included. Pathologist Sig nature Sodium 138 135 - 148 mEq/L [facility] L Potassium 4.1 3.5 - 5.0 mEq/L [facility] Chloride 103 98 - 112 mEq/L [facility] CO2 21 (L) 24 - 31 mEq/L [facility] Anion gap 14@ANIO 7 - 15 mEq/L [facility] BUN 14 6 - 20 mg/dL [facility] Creatinine 0.81 0.50 - 0.90 mg/dL [facility] HOSPI AJ Glucose 110 (H) 65 - 99 mg/dL [facility] Calcium 8.6 8.3 - 10.2 mg/dL [facility] Specimen Plasma Performing Organization Address City/State/ZIP Code Phon e Number [facility] DEPARTMENT OF PATHOLOGY AND [address] [place], [place] [address] GENOMIC MEDICINE [facility] [address] [place] [address] EMG General Request (02/15/2020 12:46 PM CDT) Narrative Performed At This result has an attachment that is no t available. Electromyogram and NCS Report [facility] [place] [address],[place], [place] T: F: Patient: ArguetaJovanni boxley Physician: Nicolasa Walters MD Age: 34 Test [...] Nerve Left Tibial Nerve Right Tibial Nerve Visual evoked potentials (02/14/2020 11:52 AM CDT) Narrative Performed At This result has an attachment that is no t available. PATTERN REVERSAL VISUAL EVOKED POTENTIAL REPORT Patient Name: Sapna Argueta Date of : 1985 Gender: female Date of Procedure: 02/14/2020 Indication Vision loss Findings Pattern reversal visual evoked potentials were obtaine d following independent left and right full field monocular stimul ation. [id number] absolute latencies were 99.8 msec and 102.6 [...] the right. Recommend correlation to radiculopathy distribution. [facility]-[id number] Procedure Note Hm Interface, Radiology Results 02/13/2020 [...] the right. Recommend correlation to radiculopathy distribution. [facility]-[id number] Performing Organization Address [facility] Phon e Number RADIANT [address] [place] [address] MRI Brain Venogram (02/13/2020 9:47 AM CDT) [...] sinus venous thrombosis. [id number] Performing Organization Address [facility] Phon e Number RADI[facility] [address] [place] [address] [facility] NEED PHYS SKILL,DX OR RX (02/08/2020 [...] discussed: Delayed addie atment and alternative treatment [place] protocol: Procedure explained and questions ans wered [...] Flat Vessel Size (mm): 5 Indication: Known intermediate IV ther apy Location: Left basilic Device Type: Non-valved Catheter Lumen(s): Single lumen Catheter size: 3 Fr Catheter to vein ratio: 24% MidLine Characteristics: Catheter Brand: SL PROVENA MIDLINE Internal Catheter Length (cm): 12 Total Catheter Length (cm): 12 Catheter Lot Number: [id number] Catheter Expiration Date: 05/21/2021 Procedure details: Landmarks [...] procedure: Massimo erated well, no immediate complications Miscellaneous referral test (02/08/2020 9:00 AM CDT)Only the most recent of4 resultswithin the time period is included. Misc test name ?NMO IgG SHOWN ABOVE Misc test result see note SHOWN ABOVE Comment: Report Status: FINAL ====== NMO/AQP4 FACS, S ====== Negative Reference Value: Negative Recommend repeat testing in 6 months if clinical suspi cion is high. Negative result can occur in the setting of immunosuppression. - - - - - - - - - - - - - - - - - - - - - - - - - - - - - - Laboratory Notes: This test was developed and its performance characteristics determined by [facility] in a manner consistent with CLIA requirements. This test has not b een cleared or approved by the U.S. Food and Drug Administration. + -----+ : PERFORMING S ITE LEGEND : + -----+ : : [facility] [place] : : : [address] [place] [address] : + -----+ Specimen Performing Organization Address City/State/ZIP Code Phon e Number [facility] DEPARTMENT OF PATHOLOGY AND [address] [facility]. [place] [phone] GENOMIC MEDICINE SHOWN ABOVE Us duplex venous upper extremity (02/07/2020 5:26 PM CDT) Specimen Narrative Performed At [facility] l[facility] Upper Extr emity Venous Report [address] [facility], [place] [address] Pat.Name: SAPNA ARGUETA Pat.ID: [id number] St.Date: 02/07/2020 Refer.MD: MAISHA MADDOX MD Exam Time: 4:33:00 PM Study Type:U E Venous Height: 66in Weight: 220lb BSA: 2.08 m2 Ag e: 1985,34Y Sex: FEMALE Sonogrp hr: Davis Vi, RVT Pat. Stat.:Inpatient Room: [address] Tape Vol: HV, CPT - 4: 62176 Echo Event ID:[id number] Order ID: [id number] Reason for Study:Right arm pain and swel [...] Ultrasound Laboratory Upper Extremity Veno us Report [address] [place] [address] Pat.Name: SAPNA ARGUETA Pat.I D: [id number] St.Date: 02/07/2020 Refer .MD: MAISHA MADDOX MD Exam Time: 4:33:00 PM Study Type:UE Venous Height: 66in Weigh t: 220lb BSA: 2.08 m2 Age: 8 1985,34Y Sex: FEMALE Sonog rphr: Ryan Torres RVT Pat. Stat.:Inpatient Room: [address] Tape Vol: , CPT - 4: 14491 Echo Event ID:[id number] Order ID: [id number] Reason for Study:Right arm pain and swel [...] MD, RPVI Performing Organization Address City/State/ZIP Code [facility] e Number [facility] [address] [place] [address] [facility] NEED PHYS SKILL,DX OR RX (02/07/2020 [...] addie atment, alternative treatment, observation and referral [place] protocol: Procedure explained and questions ans wered [...] vein ratio: 41% MidLine Characteristics: Catheter Brand: ANGIOEqalix External Catheter Length (cm): 0 Internal Catheter Length (cm): 12 Total Catheter Length (cm): 12 Catheter Lot Number: [id number] Catheter Expiration Date: 01/18/2021 Procedure details: Landmarks [...] structures are within normal limits for age. [facility]-[id number] Procedure Note Hm Interface, Radiology Results Incoming - 02/05/2020 10:12 PM CDT EXAMINATION: XR CHEST 1 VW PORTABLE CLINICAL HISTORY: 34 years Female chest pressure on exertion COMPARISON: None. IMPRESSION: No acute cardiopulmonary disease. FINDINGS: The cardiomediastinal silhouette, lungs, and regional skeletal structures are within normal limits for age. [facility]-[id number] Performing Organization Address City/State/[facility] Phon e Number [facility] [address] [place] [address] ECG 12 lead (02/05/2020 9:12 PM CDT)Only the most recent of2 resultswithin the time period is included. Pathologist Sig nature Ventricular rate 78 [facility] Atrial rate 78 [facility] NM interval 144 [facility] QRSD interval 84 [facility] QT interval 382 [facility] QTC interval 435 [facility] P axis 1 52 [facility] QRS axis 1 52 [facility] T wave axis 40 [facility] EKG impression Normal sinus [facility] rhythm-Normal ECG-In automated comparison with ECG of 04-FEB-2020 04:50,-No significant change was found- Specimen Narrative Performed At This result has an attachment that is no t available. Performing Organization Address [facility] Phon e Number [facility] MUSE [address] [place] [address] IgG synthesis rate study (02/04/2020 11:00 AM CDT)Only the most recent of2 resultswithin the time period is included. IgG albumin ratio, SEE 0.00 - 0.23 NEUMANN EPISCOPALIAN CSF COMMENTComment: HOSPITAL Footnote--------- IgG index, CSF SEE 0.01 - 0.63 NEUMANN EPISCOPALIAN COMMENTComment: HOSPITAL Footnote--------- IgG synthetic rate SEE -9.90 - 3.30 NEUMANN EPISCOPALIAN COMMENTComment: mg/day HOSPITAL Footnote--------- Q-albumin ratio, SEE 2.00 - 7.50 NEUMANN EPISCOPALIAN CSF COMMENTComment: HOSPITAL Footnote--------- IgG, CSF SEE 1.00 - 3.00 NEUMANN EPISCOPALIAN COMMENTComment: mg/dL HOSPITAL Footnote--------- Albumin, CSF SEE 10.00 - 30.00 NEUMANN EPISCOPALIAN COMMENTComment: mg/dL HOSPITAL Footnote--------- IgG SEE COMMENT 700 - 1600 NEUMANN EPISCOPALIAN Comment: mg/dL HOSPITAL Footnote--------- Corrected result; previously reported as 852 on 2019 at 12:58 by I/AUT Albumin, S SEE COMMENT 3640.0 - [facility] Comment: 5304.0 mg/dL HOSPITAL Footnote--------- DUPLICATE ORDER. Corrected result; previously reported as 3700.0 on at 12:58 by I/AUT Specimen Serum Performing Organization Address [facility] Phon e Number [facility] DEPARTMENT OF PATHOLOGY AND [address] [place] [address] [address] AFB culture (02/04/2020 10:56 AM CDT) AFB culture No growth after 6 weeks of incubation. MALKA JAIME EPISCOPALIAN isolate Comment: HOSPITAL Specimen Information Specimen Source: CSF (Spinal Fluid) Specimen Site: CSF (spinal fluid) Specimen Cerebrospinal fluid - CSF (spinal fluid) Performing Organization Address [facility] Phon e Number [facility] DEPARTMENT OF PATHOLOGY AND [address] [place], [place] [phone] [address] [address] Fungus culture (02/04/2020 10:56 AM CDT) Fungus culture No growth after 4 weeks of incubation. [facility] isolate Comment: HOSPITAL Specimen Information Specimen Source: CSF (Spinal Fluid) Specimen Site: CSF (spinal fluid) Specimen Cerebrospinal fluid - CSF (spinal fluid) Performing Organization Address [facility] Phon e Number [facility] DEPARTMENT OF PATHOLOGY AND [address] [place], [place] [phone] [address] [address] IR Lumbar Puncture by Radiology (02/04/2020 10:00 [...] Opening pressure was 21 cm of water. [facility]-[id number] Procedure Note Interface, Radiology Results Incoming - 02/04/2020 10:26 AM CDT EXAMINATION: IR LUMBAR PUNCTURE CLINICAL HISTORY: meningitis versus deuce kemia versus demyelination COMPARISON: None. Findings: Informed consent was obtained. [facility] k was prepped and draped in usual [...] Opening pressure was 21 cm of water. [facility]-[id number] Performing Organization Address City/State/ZIP Code Phon e Number [facility] [address] [place] [address] West Nile virus antibody panel, CSF (02/04/2020 9:56 AM CDT) West Nile IgG, 0.09 <=1.29 IV [facility] CSF Comment: INTERPRETIVE INFORMATION: [...] of the Flavivirid ae family, such as Hobart encephalitis virus, show extensive cross-reactivity with West [...] rrier. Test developed and characteristics determined by [facility]. See Compliance Statement B: Divide/ CS West Nile IgM, 0.02 <=0.89 IV [facility] CSF Comment: INTERPRETIVE INFORMATION: West Nile Virus Ab IgM by JEANNIE BALA, CSF 0.89 IV or less ...... Negative - No significant level of West Nile virus I gM antibody detected. 0.90-1.10 IV ......... Equivocal - Questionable presen ce of West Nile virus I gM antibody detected. Repeat nicloe ting in 10-14 days may be he [...] of the Flavivirid ae family, such as Hobart encephalitis virus, show extensive cross-reactivity with West [...] rrier. Test developed and characteristics determined by [facility]. See Compliance Statement B: Divide/ Performed By: [facility] [address] [place] [address] Black Topper: Nai Rushing MD Specimen Cerebrospinal fluid Performing Organization Address City/State/ZIP Code Phon e Number [facility] [address] [place] [address] [facility] [address] [place] [address] Cytomegalovirus by PCR (02/04/2020 9:56 AM CDT) Cytomegalovirus by PCR Not-Detected Not-Detected [facility] IU/mL [facility] Cytomegalovirus by PCR See link [facility] below for PDF HOSPITAL Lab ReportComment : Specimen Performing Organization Address City/[facility] Phon e Number [facility] DEPARTMENT OF PATHOLOGY AND [address] [place] [address] Varicella zoster by PCR (02/04/2020 9:56 AM CDT) VZV result Not-Detected Not-Detected [facility] copies/mL [facility] Varicella zoster, See link below [facility] pcr for PDF Lab HOSPITAL ReportComment: Specimen Performing Organization Address City/[facility] Phon e Number [facility] DEPARTMENT OF PATHOLOGY AND [address] [place] [address] Herpes simplex virus by PCR (02/04/2020 9:56 AM CDT) Pathologist [facility] Herpes virus, PCR Not-Detected Not-Detected [facility] Herpes virus, PCR See link below [facility] for PDF Lab HOSPITAL ReportComment: Specimen Performing Organization Address City/[facility] Phon e Number [facility] DEPARTMENT OF PATHOLOGY AND [address] [place] [address] Flow cytometry evaluation (02/04/2020 9:56 AM CDT) [facility] Flow cytometry See link below [facility] evaluation for PDF Lab HOSPITAL Report Specimen Performing Organization Address City/[facility] Phon e Number [facility] DEPARTMENT OF PATHOLOGY AND [address] [place] [address] Albert Noble Virus (EBV) by PCR (02/04/2020 9:56 AM CDT) Albert Noble virus, Not-Detected Not-Detected [facility] PCR copies/mL [facility] Albert Noble virus, See link below [facility] PCR for PDF Lab HOSPITAL ReportComment: Specimen Performing Organization Address City/[facility] Code Phon e Number [facility] DEPARTMENT OF PATHOLOGY AND [address] [place] [address] GENOMIC MEDICINE [facility] [address] [place] [address] [facility] Lyme disease reflexive panel, CSF (02/04/2020 9:56 [...] days. Test developed and characteristics determined by [facility]. See Compliance Statement B: Calix[employer]/ CS Performed By: [facility] [address] [place] [address] Black Topper: Nai Rushing MD Specimen Cerebrospinal fluid Performing Organization Address City/[facility]/ZIP Code Phon e Number [facility] [address] [place] [address] [facility] [address] [place] [address] Cryptococcal antigen, screen (02/04/2020 9:56 AM CDT) Pathologist [facility] [place] Cryptococcal Ag Negative - No Cryptococcus antigen detected. NEL CHAVEZ Comment: HOSPITAL Specimen Information Specimen Source: CSF (Spinal Fluid) Specimen Site: CSF (spinal fluid) Specimen Cerebrospinal fluid - CSF (spinal fluid) Performing Organization Address City/[facility] Phon e Number [facility] DEPARTMENT OF PATHOLOGY AND [address] [place] [address] [phone] [address] Oligoclonal banding, CSF (02/04/2020 9:56 AM CDT) Pathologist [facility] [place] Protein, CSF 24 15 - 45 [facility] mg/dL [facility] Prealbumin, CSF (%) 6.4 3.5 - 11.1 % [facility] Albumin, CSF 66.1 40.8 - 66.2 [facility] [place] 1, CSF (%) 2.4 2.3 - 6.4 % [facility] Alpha 2, CSF (%) 6.1 6.1 - 12.6 % [facility] Beta, CSF (%) 13.1 11.7 - 24.1 [facility] Gamma, CSF (%) 5.9 5.6 - 12.2 % [facility] CSF extended See [facility] interpretation CommentComment: An [facility] normal [facility] CSF protein study. No oligoclonal bands seen. CSF interpretation See [facility] CommentComment: EPISCOPALIAN Miguel Boyd, PhD; HOSPITAL Fam Calderón MD Specimen Cerebrospinal fluid Performing Organization Address City/[facility] Phon e Number [facility] DEPARTMENT OF PATHOLOGY AND [address] [place] [address] [address] [address] Enterovirus by PCR (02/04/2020 9:56 AM CDT) Pathologist Sig nature Enterovirus PCR Not-Detected Not-Detected [facility] Enterovirus PCR See link below [facility] for PDF Lab HOSPITAL ReportComment: Specimen Performing Organization Address City/[facility] Phon e Number [facility] DEPARTMENT OF PATHOLOGY AND [address] [place] [address] [address] [address] [facility] Gram stain (02/04/2020 9:56 AM CDT) Gram stain isolate No WBC's or organisms seen. [facility] Comment: HOSPITAL Specimen Information Specimen Source: CSF (Spinal Fluid) Specimen Site: CSF (spinal fluid) Specimen Cerebrospinal fluid - CSF (spinal fluid) Performing Organization Address [facility] Phon e Number [facility] DEPARTMENT OF PATHOLOGY AND [address] [place] [address] [phone] [address] CSF culture (02/04/2020 9:56 AM CDT) CSF culture No growth after 3 days. [facility] isolate Comment: HOSPITAL Specimen Information Specimen Source: CSF (Spinal Fluid) Specimen Site: CSF (spinal fluid) Specimen Cerebrospinal fluid - CSF (spinal fluid) Performing Organization Address [facility] Phon e Number [facility] DEPARTMENT OF PATHOLOGY AND [address] [place] [address] [phone] [address] CSF cell count with differential (02/04/2020 9:56 AM CDT) Pathologist Donald Color, CSF Colorless [facility] Appearance, CSF Clear [facility] Comment: HOSPITAL Corrected result called to Juan Daniel Mallory/WT18 13:21 Corrected result; previously reported as Slightl y hazy on 02/04/2020 at 11:19 by DH2 RBC, CSF 33 (H) 0 - 1 /CMM [facility] WBC, CSF 1 0 - 5 /CMM [facility] CSF mononuclear cell 1/CMM [facility] Specimen Cerebrospinal fluid Performing Organization Address City/[facility] Phon e Number [facility] DEPARTMENT OF PATHOLOGY AND [address] [place] [address] [phone] [address] VDRL, CSF screen (02/04/2020 9:56 AM CDT) Pathologist Sig nature VDRL, CSF screen Non-reactive Non-reactive [facility] Specimen Cerebrospinal fluid Performing Organization Address City/[facility] Phon e Number [facility] DEPARTMENT OF PATHOLOGY AND [address] [place] [phone] [facility] [address] [place] [address] Glucose level, CSF (02/04/2020 9:56 AM CDT) Pathologist Rick hernandez Glucose, CSF 90 (H) 40 - 70 mg/dL [facility] Specimen Cerebrospinal fluid Performing Organization Address City/[facility] Phon e Number [facility] DEPARTMENT OF PATHOLOGY AND [address] [place] [phone] [facility] [address] [place] [address] Angiotensin converting enzyme, CSF (02/04/2020 9:56 AM CDT) Pathologist [facility] [place] Angiotensin 0.6 0.0 - 2.5 [facility] converting enzyme, Comment: U/L CSF This test was developed and its performance characteri stics determined by [facility]. The U.S. Food and Isma g Administration has not approved or cleared this test; however, FDA clearance or approval is not currently required for cl inical use. The results are not intended to be used as the sole me ans for clinical diagnosis or patient management decisions. Performed By: [facility] [address] [place] [address] Black Topper: Nai Rushing MD Specimen Cerebrospinal fluid Performing Organization Address City/[facility] Phon e Number [facility] [address] [place] [address] [facility] RE[facility] LAB [address] [place] [address] EEG (routine) (02/04/2020 7:19 AM CDT) Narrative [...] resultswithin the time period is included. Pathologist Donald Blood culture No growth after 5 days of incubation. MALKA CHAVEZ isolate Comment: HOSPITAL Specimen Information Specimen Source: Blood Specimen Site: Antecubital, right Specimen Blood - Antecubital, right Performing Organization Address [facility]/ZIP [facility] Phon e Number [facility] DEPARTMENT OF PATHOLOGY AND [address] [place] [address] [phone] [address] Urine drugs of abuse screen (02/04/2020 12:56 AM CDT) Pathologist [facility] [place] Amphetamine screen, Negative [facility] urine [facility] Barbiturate screen, Negative [facility] urine [facility] Benzodiazepine Negative [facility] screen, urine [facility] Cocaine screen, urine Negative [facility] Methadone metabolite Negative [facility] (EDDP), urine [facility] Opiates screen, urine Positive (A) [facility] Oxycodone screen, Negative [facility] urine [facility] Phencyclidine screen, Negative [facility] urine [facility] Tricyclic screen, Negative [facility] urine [facility] Cannabinoid screen, Negative [facility] urine Comment: EPISCOPALIAN Drug screen minimum concentration of detectability HOSPITAL [...] requir ed. Specimen Urine Performing Organization Address [facility] Phon e Number [facility] DEPARTMENT OF PATHOLOGY AND [address] [place] [address] [phone] [address] MRI Brain & Orbit W Wo Contrast [...] Unremarkable MRI of the brain and orbits. [facility]-[id number] Procedure Note Interface, Radiology Results Incoming - [...] MRI of the brain and orbits . [facility]-[id number] Performing Organization Address [facility] Phon e Number [facility] [address] [place], [place] [phone] Cytology (non-gynecological) request (02/03/2020 8:17 PM CDT) [facility] DEPARTMENT OF PATHOLOGY AND GENOMIC MEDICINE Cytology See link below [facility] DEPARTMENT OF (non-gynecological) for PDF Lab PATHOLOGY AND report Report GENOMIC MEDICINE Result status This is Final [facility] DEPARTMENT OF Report for PATHOLOGY AND [id number] GENOMIC MEDICINE Specimen Performing Organization Address [facility] Phon e Number [facility] DEPARTMENT OF PATHOLOGY AND [address] [place] [phone] [facility] Syphilis total antibody (02/03/2020 6:25 PM CDT) Syphilis total Non-reactiveComment Non-reactive [facility] antibody : No serological HOSPITAL evidence of syphilis infection. Specimen Serum Performing Organization Address City/[facility]/ZIP [facility] Phon e Number [facility] DEPARTMENT OF PATHOLOGY AND [address] [place] [address] [phone] [address] HIV Ag/Ab combination (02/03/2020 6:25 PM CDT) HIV Ag/Ab combination Non-reactive Non-reactive [facility] Specimen Blood Performing Organization Address City/[facility]/ZIP Code Phon e Number [facility] DEPARTMENT OF PATHOLOGY AND [address] [place] [address] [facility] [address] [place] [address] Homocystine, plasma (02/03/2020 6:25 PM CDT) [facility] Homocysteine 6.4 0.0 - 15.0 [facility] Comment: umol/L HOSPITAL The risk for coronary vascular disease increases progr essively with homocysteine concentration. A 3.4 times greater risk is associated with a homocysteine concentration of greate r than 15.8 umol/L as compared to a concentration below 14.1 umol/L. Specimen Blood Performing Organization Address [facility] Phon e Number [facility] DEPARTMENT OF PATHOLOGY AND [address] [place] [address] [address] B. burgdorferi Abs total, serum (02/03/2020 6:25 PM CDT) [facility] B. burgdorferi 0.98 0.00 - 1.20 [facility] antibodies Comment: INTERPRETIVE INFORMATION: Borrelia Burgdorferi Abs,Tot al by DARSHANA 0.99 REJI or Less: ...... Negative: Antibody to B. burgdorferi no t detected. 1.00 - 1.20 REJI......... Equivocal: Repeat testing in 10-14 days may be helpful. 1.21 REJI or Greater: ... Positive: Probable presenc e of antibody to B. burgdorferi detected. Performed By: [facility] [address] [place] [address] Black Topper: Nai Rushing MD Specimen Serum Performing Organization Address City/[facility] Phon e Number [facility] [address] [place] [address] [facility] [address] [place] [address] Vitamin D 25 hydroxy level (02/03/2020 6:25 PM CDT) [facility] Vitamin D, 48.7 30.0 - 150.0 [facility] 25-hydroxy Comment: ng/mL [facility] This assay reports the sum of 25-hydroxy [...] alternative methods. Specimen Blood Performing Organization Address City/[facility] Phon e Number [facility] DEPARTMENT OF PATHOLOGY AND [address] [place] [address] [address] Sedimentation rate (02/03/2020 6:25 PM CDT) Pathologist Sig nature Sedimentation rate 7 0 - 20 mm/hr [facility] Specimen Blood Performing Organization Address [facility] Phon e Number [facility] DEPARTMENT OF PATHOLOGY AND [address] [place] [address] Rheumatoid factor (02/03/2020 6:25 PM CDT) Pathologist [facility] nature Rheumatoid factor <10 0 - 13 IU/mL [facility] Specimen Blood Performing Organization Address [facility] Phon e Number [facility] DEPARTMENT OF PATHOLOGY AND [address] [place] [address] ELMER (02/03/2020 6:25 PM CDT) ELMER screen Negative Negative [facility] Comment: HOSPITAL Test performed using NOVA Lite DAPI ELMER kit (Indirect Immunofluorescence Assay) for Anti-Nuclear Antibody on [employer] 160 Analyzer. Specimen Blood Performing Organization Address [facility] Phon e Number [facility] DEPARTMENT OF PATHOLOGY AND [address] [place] [address] T3 (02/03/2020 6:25 PM CDT) Pathologist Sig nature T3 70 (L) 80 - 200 ng/dL [facility] Specimen Blood Performing Organization Address City/State/ZIP Code Phon e Number [facility] DEPARTMENT OF PATHOLOGY AND [address] [place] [address] [address] [address] Thyroid stimulating hormone (02/03/2020 6:25 PM CDT) Pathologist Sig nature TSH 1.12 0.27 - 4.20 uIU/mL [facility] ITAL Specimen Blood Performing Organization Address City/[facility]/ZIP [facility] Phon e Number [facility] DEPARTMENT OF PATHOLOGY AND [address] [place] [address] [phone] [address] T4, free (02/03/2020 6:25 PM CDT) Pathologist Sig nature T4, free 1.0 0.9 - 1.7 ng/dL [facility] L Specimen Blood Performing Organization Address City/[facility] Phon e Number [facility] DEPARTMENT OF PATHOLOGY AND [address] [place] [address] [phone] [address] Folate level (02/03/2020 6:25 PM CDT) Pathologist Sig nature Folate 8.0 4.8 - 24.2 ng/mL [facility] AL Specimen Serum Performing Organization Address City/[facility]/ZIP [facility] Phon e Number [facility] DEPARTMENT OF PATHOLOGY AND [address] [place] [address] [address] [address] Vitamin B12 level (02/03/2020 6:25 PM CDT) Vitamin B12 [phone] [facility] Comment: pg/mL HOSPITAL Significant overlap exists between normal and deficien cy states. However, most patients with deficiencies will have Ser um B12 <200 pg/mL. Specimen Serum Performing Organization Address City/[facility]/ZIP [facility] Phon e Number [facility] DEPARTMENT OF PATHOLOGY AND [address] [place] [address] Cortisol level, random (02/03/2020 6:25 PM CDT) Cortisol, random 2 ug/dL [facility] Comment: HOSPITAL Reference Ranges are not established for non-timed Cor tisol levels. Reference Range for Timed Cortisol: 6 - 10 AM 6 - 18 ug/d l 4 - 8 PM 3 - 11 ug/ dl Specimen Blood Performing Organization Address City/State/ZIP Code Phon e Number [facility] DEPARTMENT OF PATHOLOGY AND [address] [place] [address] GENOMIC MEDICINE [facility] [address] [place] [address] CT Head Wo Contrast (02/03/2020 4:14 PM [...] appropria te moderation of exposure. Automated dose risk management analyst nology is applied to adjust radiation exposure [...] ensure appropriate moderation of exposure. Automated dose risk management analyst nology is applied to adjust radiation exposure [...] intracranial ab normality. [id number] Performing Organization Address City/[facility]/ZIP Code Phon e Number [facility] [address] [place] [address] hCG quantitative, serum (02/03/2020 2:27 PM CDT) hCG quantitative, <1 0 - 5 mIU/mL [facility] serum Comment: HOSPITAL Reference range for HCG Quant applies to males and non - females. 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
--- OUTSIDE RECORDS SUMMARY | 2020-06-09 17:40 | XMS REPORT | Continuity of Care Document ---
:1985 Author Organization [facility] t Address [address] [place] [address] Care Team Providers Name Role Phone Yari HAMILTON Primary Care Physician Lyndsay HAMILTON Attending Clinician Nasreen HAMILTON Attending Clinician Ashok Tsai MD Attending Clinician Marck Chung Attending Clinician Tung HAMILTON, Jae Attending Clinician Marichuy HAMILTON Attending Clinician Toni Maldonado MD Attending Clinician Barber Attending Clinician Unavailable Janice Guevara MD Attending Clinician Edwin HAMILTON Attending Clinician Varsha HAMILTON, [facility] Attending Clinician Ricky HOBSON Attending Clinician Unavailable NASREEN Admitting Clinician Unavailable MARICHUY Admitting Clinician Unavailable EDWIN Admitting Clinician Unavailable Payers Payer Name Policy Type Policy Effective Date Expiration Date Sour ce Number CIGNACIGNA OPEN [id number] 2020 [place] ACCESS/NETWORKxx 00:00:00 Methodis t [id number] Problems Condition Condition Condition Status Onset Resolution Last Treating Co mments Source Name Details Category Date Date Treatment Clinician Date Weakness Weakness Disease Active [place] of right of right 2-14 Method i arm arm 00:00: st 00 COVID-19 COVID-19 Disease Active [place] virus virus 2-14 Method[facility] detected detected 00:00: st 00 Lower Lower Disease Active 2019-04 [place] extremity extremity 0-28 Meth tanvi weakness weakness 00:00: st 00 Debility Debility Disease Active 2019-04 [place] 0-26 Methodi 00:00: st 00 Weakness Weakness Disease Active 2019-04 [place] 0-24 Methodi 00:00: st 00 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 [place] al al 0-24 Method[facility] dysfunctio dysfunctio 00:00: st n n 00 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 0-15 Method i 00:00: st 00 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, leukemia, 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 seizure (disorder) Active Problem 06/03/2020 [facility] History of Problem Active 2020-06-03 M emoria - * 01:44:50 l leukemia History Rupal nn (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) (context-d ependent category) Active Problem 06/03/2020 [facility] Headache Problem Active 2020-06-03 Mem oria (finding) 01:44:50 l Headache Murray n (finding) Active Problem 06/03/2020 [facility] Simple Problem Active 2020-06-03 Memor ia obesity 01:44:50 l (disorder) Simple Herm zay obesity (disorder) Active Problem 06/03/2020 [facility] Backache Problem Active 2020-06-03 Mem oria (finding) 01:44:50 l Backache Murray n (finding) Active Problem 06/03/2020 [facility] Hemiplegia Problem Active 2020-06-03 M emoria (disorder) 01:44:50 l Ricardo Hemiplegia (disorder) Active Problem 06/03/2020 [facility] Visual Problem Active 2020-06-03 Memor ia disturbanc 01:44:50 l e Visual [place] (disorder) disturbanc e (disorder) Active Problem 06/03/2020 [facility] Disorienta Problem Active 2020-06-03 M emoria leon 01:44:50 l (finding) [place] Disorienta leon (finding) Active Problem 06/03/2020 [facility] Seizure Problem Active 2020-06-03 Unruly kieran disorder 01:44:50 l (disorder) Seizure Her sesay disorder (disorder) Active Problem 06/03/2020 [facility] Cervical Problem Active 2020-06-03 Mem oria radiculopa 01:44:50 l thy Cervical Murray n (disorder) radiculopa thy (disorder) Active Problem 06/03/2020 [facility] Allergies, Adverse Reactions, Alerts Allergy Allergy Status Severity Reaction(s) Onset Inactive Treating Comm ents Source Name Type Date Date Clinician Cephalex Propensi Active Hives 2019-04 [place] in ty to 0-16 Methodi adverse 00:00: st reaction 00 s to drug Latex Propensi Active Hives 2019-04 [place] ty to 0-16 Methodi adverse 00:00: st reaction 00 s to drug Ondanset Propensi Active Headache 2019-04 [place] mikey Hcl ty to 0-16 Methodi adverse 00:00: st reaction 00 s to drug Gadobutr Propensi Active Other (See 2019-04 Vomiting [facility] ty to Comments) 0-15 Method i adverse 00:00: 8:30pm- st reaction 00 Per s to patient drug denied shortness of breath, hives, itchiness . Only nauseous/ vomiting as a side effect after administr ation of Gadavist. 06/06/20: Patient Premedica leon with IV Promethaz ine for Nausea prior to MRI.Patie nt reported Nausea but no Vomiting noted after MRI Contrast given. cephalex cephalex Active Memori a in in l [place] Latex Latex Active Memoria l [place] Gadavist Gadavist Active Memori a l [place]ardo Cephalex Adverse [facility] Reaction Available [facility] Zofran Adverse Active Info Not [facility] Reaction Available [facility] Family History Family Member Diagnosis Comments Start Date Stop Date Source Paternal grandfather Kidney cancer Victor Manuel Aguirre Social History Social Habit Start Date Stop Date Quantity Comments Source Sex Assigned At MD [place] Tobacco use and 2020-06-06 2020-06-06 Never used [facility] ethodist exposure 00:00:00 00:00:00 Alcohol intake 2020-06-06 2020-06-06 Current drinker [place] 00:00:00 00:00:00 of alcohol (finding) Alcohol Comment 2020-02-03 2020-02-03 occ drinker [place] 00:00:00 00:00:00 Social History 2018-10-01 2018-10-01 Cassie rojas 13:53:53 13:53:53 Smoking Status Start Date Stop Date Source Never smoker [place] Methodis t Medications Ordered Filled Start Stop Current Ordering Indication Dosage Frequency Signature Comments Components Source Medication Medication Date Date Medication? Clinician (SIG) Name Name acetaminoph Yes 500mg Q6H Take 500 [place] (Tylenol 2-17 mg by Methodi Extra 14:31: mouth st Strength) 03 every 6 500 MG (six) tablet hours as needed for mild pain. topiramate Yes 100mg QD Take 100 [place] (Trokendi 2-17 mg by Methodi XR) 100 mg 14:31: mouth st capsule,ext 03 nightly. ended release 24hr lisdexamfet Yes 50mg QD Take 50 mg [place] amine 2-17 by mouth Methodi (Vyvanse) 14:31: every st 50 MG 03 morning. capsule famotidine Yes 20mg QD Take 20 mg [place] (PEPCID) 20 2-17 by mouth Meth tanvi MG tablet 14:31: daily. st 03 montelukast Yes 10mg QD Take 10 mg [place] (SINGULAIR) 2-17 by mouth Meth tanvi 10 mg 14:31: daily. st tablet 03 24 HR 2019-04 Yes 100 mg = 1 Memori a topiramate 2-30 cap, PO, l 100 MG 21:09: Bedtime, # Rupal nn Extended 00 90 cap, 2 Release Refill(s), Capsule Pharmacy: [[facility]] [id number], 167.64, cm, 04/19/20 14:37:00 AVAYA ENGINEER, Height, 104.545, kg, 04/19/20 14:37:00 AVAYA ENGINEER, Weight Famotidine 2019-04 Yes 40 mg, PO, M emoria 2-30 Daily, # l 20:40: 60 tab, 0 Refill(s) Nulev 2019-04 Yes 0.125 mg, Memoria 2-30 PO, QID, 0 l 20:40: Refill(s) Reglan 2019-04 Yes 0 Memoria 1-10 Refill(s) l 18:04: metoclopram 2019-04 No 1{tbl} Take 1 [place] dung HCl 1-10 02-14 tablet by Method i (REGLAN 00:00: 00:[address] ORAL) 00 :00 needed. omeprazole 2019-04 No 20mg QD Take 1 [place] OTC 0-28 11-27 tablet (20 Methodi (PriLOSEC 00:00: 23:59 mg total) st OTC) 20 MG 00 :00 by mouth EC tablet daily for 30 days. metoclopram 2019-04 No 5mg [id number] Take 1 [place] dung 0-28 11-02 [id number] tablet (5 Met hodi (Reglan) 5 00:00: [...] it last week - unknown reason); ([facility], last filled 12/18/19, quantity: 30, day supply: 30) topiramate 2019-04- No 1{capsu QD Take 1 [place] (Trokendi 0-20 10-20 le} capsule by Met hodi XR) 100 mg 18:40: 00:[address] capsule,ext 28 :00 daily. ended (Patient release stopped 24hr taking this medication in the summer because she ran out of it) OXCARBAZEPI 2019-04 (Patient Andres GLASGOW ORAL 0-20 10-20 stopped Methodi 18:40: 00:[address] 28 :00 this medication in the summer because she ran out of it) atropine 1 2019-04- 1[drp] Q.5D Administer Tom[place]kins % 0-20 10-20 1 drop to Methodi ophthalmic 18:40: 00:00 the right s t solution 28 :00 eye 2 (two) times a day. (start date: ~3 weeks ago - per patient) metoclopram 2019-04 5mg Q.[id number] Take 1 [place] dung 0-20 - [id number] tablet (5 Met hodi (Reglan) 5 00:00: 00:00 3D mg total) s t MG tablet 00 :00 by mouth 3 (three) times a day as needed (nausea, vomiting) for up to 5 days. Vyvanse Vyvanse Yes Na Savage [address] [facility] [facility] 00[facility] Memoria 00 l [facility] oxcarbazepi Yes 300 mg = 1 Memoria ne 300 MG 9-06 tab, PO, l Oral Tablet 16:04: BID, # 180 Ricardo [Trileptal] 19 tab, 3 Refill(s), Pharmacy: [facility] #[id number] HR Yes 100 mg = 1 Memori a topiramate 9-06 cap, PO, l 100 MG 16:04: Daily, # Ricardo Extended 10 90 cap, 3 Release Refill(s), Capsule Pharmacy: [[facility]] [facility] #[id number] 24 HR No 100 mg = 1 Memori a topiramate 9-04 cap, PO, l 100 MG 18:31: Daily, X Ricardo Extended 05 30 day, # Release 30 cap, 3 Capsule Refill(s), [Trokendi] Pharmacy: [facility] [place] oxcarbazepi No 300 mg = 1 Memoria ne 300 MG 9-04 tab, PO, l Oral Tablet 18:31: BID, X 30 H [place] [Trileptal] 02 day, # 60 tab, 3 Refill(s), Pharmacy: [facility] lisdexamfet Yes 30 mg = 1 M emoria amine 8-09 cap, PO, l dimesylate 16:20: QAM, # 30 He rmann 30 MG Oral 00 cap, 0 Capsule Refill(s) [Vyvanse] omeprazole Yes 20 mg = 1 Me moria 20 mg oral 7-17 cap, PO, l delayed 00:27: Daily, # Murray n release 00 30 cap, 2 capsule Refill(s), Pharmacy: [facility] oxcarbazepi Yes 300 mg = 1 Memoria ne 300 MG 7-03 tab, PO, l Oral Tablet 18:01: BID, # 60 H [place] [Trileptal] 00 tab, 2 Refill(s), Pharmacy: [facility] 24 HR Yes 100 mg = 1 Memori a topiramate 6-28 cap, PO, l 100 MG 14:50: Daily, # Ricardo Extended 00 30 cap, 3 Release Refill(s), Capsule Pharmacy: [[facility]] [facility] topiramate Yes 25 mg = 1 Me moria 25 MG Oral 6-14 tab, PO, l Tablet 23:33: BID, # 60 Murray n [Topamax] 00 tab, 2 Refill(s), Pharmacy: [facility] Phenytoin Yes 200 mg = 2 Me moria sodium 100 6-13 cap, PO, l MG Extended 13:57: BID, # 120 [place] Release 00 cap, 3 Capsule Refill(s), [Dilantin] Pharmacy: [facility] Alprazolam Yes 0.5 mg = 1 M emoria 0.5 MG Oral 6-13 tab, PO, l Tablet 13:28: TID, 0 Ricardo [Xanax] 00 Refill(s) Zyrtec 2018-0 Yes Daily, 0 Memoria 6-13 Refill(s) l 13:28: Ricardo 00 Phenytoin No 100 mg = 1 Me moria sodium 100 6-13 cap, PO, l MG Extended 13:26: TID, # 90 H [place] Release 00 cap, 1 Capsule Refill(s) [Dilantin] VYVANSE 40 2017-0 Yes 1{tbl} Take 1 MD mg capsule 9-19 tablet by Andreacleve rosario 00:00: mouth n 00 daily. Immunizations Ordered Immunization Filled Immunization Date Status Commen ts Source Name Name FLUCELVAX QUAD PF 2020-02-06 Completed [place] 00:00:00 [place] Influenza Split Completed MD [place] on 00:00:00 Vital Signs Vital Name Observation Time Observation Value Comments Source Systolic blood 2020-06-07 11:18:00 116 mm[Hg] Yurito n [place] pressure Diastolic blood 2020-06-07 11:18:00 69 mm[Hg] Kaylen on [place] pressure Heart rate 2020-06-07 11:18:00 77 /min [facility] Body temperature 2020-06-07 11:18:00 36.11 Staci [facility] ton [place] Respiratory rate 2020-06-07 11:18:00 18 /min [facility] ton [place] Oxygen saturation in 2020-06-07 11:18:00 96 /min [facility] Arterial blood by Pulse oximetry Body weight 2020-06-06 14:36:00 95.255 kg [facility] BMI 2020-06-06 14:36:00 33.89 kg/m2 [facility] Systolic (mm Hg) 2020-04-19 20:08:00 Unruly vang Ricardo Diastolic (mm Hg) 2020-04-19 20:08:00 [facility] orial Ricardo Heart Rate 2020-04-19 20:08:00 [facility] [place] Respitory Rate 2020-04-19 20:08:00 Avery al Ricardo Height 2020-04-19 20:08:00 167.64 cm [facility] Weight 2020-04-19 20:08:00 [facility] BMI Calculated 2020-04-19 20:08:00 Memaviva al [place] Systolic (mm Hg) 2020-03-29 20:19:00 Unruly rial Ricardo Diastolic (mm Hg) 2020-03-29 20:19:00 [facility] orial [place] Heart Rate 2020-03-29 20:19:00 [facility] [place] Respitory Rate 2020-03-29 20:19:00 Memori al Ricardo Height 2020-03-29 20:19:00 167.64 cm [facility] Ricardo Weight 2020-03-29 20:19:00 [facility] [place] BMI Calculated 2020-03-29 20:19:00 Memori al [place] Body height 2020-03-08 12:47:00 167.6 cm [place] Systolic (mm Hg) 2020-02-29 17:31:00 Unruly rial Ricardo Diastolic (mm Hg) 2020-02-29 17:31:00 Mem orial [place] Heart Rate 2020-02-29 17:31:00 [facility] [place]ardo Respitory Rate 2020-02-29 17:31:00 Memori al Ricardo Height 2020-02-29 17:31:00 167.64 cm [facility] [place] Weight 2020-02-29 17:31:00 [facility] Ricardo BMI Calculated 2020-02-29 17:31:00 Memori al Ricardo Systolic (mm Hg) 2018-12-23 18:03:00 Unruly rial [place] Diastolic (mm Hg) 2018-12-23 18:03:00 Mem orial Ricardo Heart Rate 2018-12-23 18:03:00 [facility] [place] Respitory Rate 2018-12-23 18:03:00 Memori al Ricardo Height 2018-12-23 18:03:00 167.64 cm [facility] Ricardo Weight 2018-12-23 18:03:00 [facility] Ricardo BMI Calculated 2018-12-23 18:03:00 Memori al [place] BMI Calculated 2018-11-27 15:59:00 Memori al [place] Weight 2018-11-27 15:59:00 [facility] Ricardo Height 2018-11-27 15:59:00 167.64 cm [facility] Ricardo Heart Rate 2018-11-27 15:59:00 [facility] [place] Respitory Rate 2018-11-27 15:59:00 Memori al [place] Systolic (mm Hg) 2018-11-27 15:59:00 Unruly rial Ricardo Diastolic (mm Hg) 2018-11-27 15:59:00 Mem orial [place] Respitory Rate 2018-10-16 14:19:00 Memori al Ricardo Systolic (mm Hg) 2018-10-16 14:19:00 Unruly rial [place] Diastolic (mm Hg) 2018-10-16 14:19:00 Mem orial Ricardo BMI Calculated 2018-10-16 14:19:00 Memori al [place] Weight 2018-10-16 14:19:00 [facility] Ricardo Height 2018-10-16 14:19:00 167.64 cm [facility] Ricardo Heart Rate 2018-10-16 14:19:00 [facility] Ricardo BMI Calculated 2018-10-01 13:18:00 Memori al Ricardo Weight 2018-10-01 13:18:00 [facility] Ricardo Height 2018-10-01 13:18:00 167.64 cm [facility] [place] Respitory Rate 2018-10-01 13:18:00 Memori al Ricardo Heart Rate 2018-10-01 13:18:00 [facility] Ricardo Systolic (mm Hg) 2018-10-01 13:18:00 Unruly riamatt [place] Diastolic (mm Hg) 2018-10-01 13:18:00 Mem orial [place] Procedures Procedure Date / Time Performing Clinician Source Performed MRI THORACIC SPINE W 2020-06-06 16:01:00 Caleb Kent [place] CONTRAST MRI CERVICAL SPINE W 2020-06-06 16:01:00 Caleb Kent [place] CONTRAST MRI BRAIN W WO CONTRAST 2020-06-06 16:00:00 Caleb Kent ton [place] C-REACTIVE PROTEIN 2020-06-06 12:12:00 Jen Tsai [place] Natvarlal INTERLEUKIN 6 2020-06-06 12:12:00 Jen Tsai Met hodist Natvarlal FERRITIN LEVEL 2020-06-06 12:12:00 Jen Tsai [facility] Natvarlal D-DIMER 2020-06-06 12:12:00 Jen Tsai [facility] Natvarlal LDH 2020-06-06 12:12:00 Jen Tsai [facility] Natvarlal FIBRINOGEN 2020-06-06 12:12:00 Jen Tsai Met hodist Natvarlal CT CHEST WO CONTRAST 2020-06-06 12:03:12 Eloise Dorsey on [place] URINE CULTURE 2020-06-04 07:58:00 Kanchan Downey Meth odist URINALYSIS SCREEN AND 2020-06-04 07:58:00 Eloise Dorsey MICROSCOPY, WITH REFLEX TO CULTURE HCG QUALITATIVE, URINE 2020-06-04 07:58:00 Eloise Dorsey SCREEN COVID-19 QUALITATIVE PCR 2020-06-04 07:45:00 Eloise Dorsey HC COMPLETE BLD COUNT 2020-06-04 02:45:00 Jose Gomez W/AUTO DIFF Imarendenewe COMPREHENSIVE METABOLIC 2020-06-04 01:56:00 Jose Gomez PANEL Imarendenewe ESTIMATED GFR 2020-06-04 01:56:00 Jose Gomez ethodist Imarendenejose e OCT, OPTIC NERVE - OU - 2020-03-08 13:34:42 Chavo Bull BOTH EYES AUTOMATED VISUAL FIELD, 2020-03-08 13:34:38 Chavo Bull EXTENDED - OU - BOTH EYES DURABLE MEDICAL EQUIPMENT 2020-02-16 10:31:42 Erica Blessing [place] Toni BASIC METABOLIC PANEL 2020-02-16 05:10:00 Sharlene Julian on [place] Mehran ESTIMATED GFR 2020-02-16 05:10:00 Blessing Maldonado Me thodist Toni DURABLE MEDICAL EQUIPMENT 2020-02-15 15:56:49 Caleb Roque [place] EMG 2020-02-15 12:46:48 Fior Batista Me thodist med HC COMPLETE BLD COUNT 2020-02-15 05:00:00 Eber Castro W/AUTO DIFF BASIC METABOLIC PANEL 2020-02-15 05:00:00 Eber Castro ESTIMATED GFR 2020-02-15 05:00:00 Shira Benedict Meth odist VISUAL EVOKED POTENTIALS 2020-02-14 11:52:23 Dora Montalvo (VEP) HC COMPLETE BLD COUNT 2020-02-14 04:15:00 Castro, Eber Jorge [place] W/AUTO DIFF BASIC METABOLIC PANEL 2020-02-14 04:15:00 Eber Castro ESTIMATED GFR 2020-02-14 04:15:00 Shira Benedict odist MRI LUMBAR SPINE W WO 2020-02-13 [...] Castro ESTIMATED GFR 2020-02-12 08:00:00 Shira Benedict odist VENIPUNC NEED PHYS 2020-02-08 10:39:11 Familia Colon ethodist SKILL,DX OR RX MISCELLANEOUS REFERRAL 2020-02-08 09:00:00 Evens Horne TEST Marck US DUPLEX VENOUS UPPER 2020-02-07 17:26:50 Michael [...] 06:18:00 Michael Maddox ESTIMATED GFR 2020-02-06 06:18:00 Varsha Michael Worley XR CHEST 1 VW PORTABLE 2020-02-05 21:27:51 Varsha Michael Worley ECG 12-LEAD 2020-02-05 21:12:53 Varsha Michael Worley HC COMPLETE BLD COUNT 2020-02-05 06:00:00 Michael [...] CRYPTOCOCCAL ANTIGEN 2020-02-04 09:56:00 Andressa Givens on [place] SCREEN GRAM STAIN 2020-02-04 09:56:00 Kim Guevara CSF CELL COUNT WITH 2020-02-04 09:56:00 Andressa Givens n [place] DIFFERENTIAL GLUCOSE LEVEL, CSF 2020-02-04 09:56:00 Andressa Givens IGG SYNTHESIS RATE STUDY 2020-02-04 09:56:00 Andressa Givens VDRL, CSF SCREEN 2020-02-04 09:56:00 Andressa Givens ethodist LYME DISEASE REFLEXIVE 2020-02-04 09:56:00 Andressa Givens [place] PANEL, CSF CYTOMEGALOVIRUS BY PCR 2020-02-04 09:56:00 Andressa Givens ALBERT NOBLE VIRUS (EBV) 2020-02-04 09:56:00 Andressa Givens BY PCR ENTEROVIRUS BY PCR 2020-02-04 09:56:00 Andressa Givens [...] BLD COUNT 2020-02-04 01:40:00 Aldo Pineda on [place] W/AUTO DIFF BASIC METABOLIC PANEL 2020-02-04 01:40:00 Aldo Pineda on [place] ESTIMATED GFR 2020-02-04 01:40:00 Kim Guevara URINE [...] HIV AG/AB COMBINATION 2020-02-03 18:25:00 Manan Hernández [place] VITAMIN D 25 HYDROXY LEVEL 2020-02-03 18:25:00 Manan Hernández B. BURGDORFERI ABS TOTAL, 2020-02-03 18:25:00 Manan Hernández SERUM CT HEAD WO CONTRAST 2020-02-03 16:14:55 Manan Hernández [place] HCG QUANTITATIVE, SERUM 2020-02-03 14:27:00 Manan Hernández Tubal ligation [facility] Plan of Care Planned Activity Planned Date Details Comments Source Future Scheduled 2023-02-02 Screening for [facility]odist Test 00:00:00 malignant neoplasm of cervix (procedure) [code = 117098362] Future Scheduled 2004 Hepatitis C [facility] Met hodist Test 00:00:00 screening (procedure) [code = 178407160] Future Scheduled 2002 COVID-19 VACCINE (1 [place] Test 00:00:00 of 2) [code = COVID-19 VACCINE (1 of 2)] Encounters Start End Encounter Admission Attending Care Care Encounter Source Date/Time Date/Time Type Type Clinicians Facility Department ID 2020-06-04 2020-06-07 Inpatient [facility] [id number] [place] 00:00:00 00:00:00 JEN [address] 2020-05-31 2020-05-31 Outpatient ASIF Chung [id number] 11:30:00 23:59:59 David 12 Marck 2020-05-31 2020-05-31 Outpatient ASIF Chung [id number] 15:30:00 15:30:00 David 11 Marck 2020-04-19 2020-04-19 Outpatient ASIF Chung [id number] 14:00:00 23:59:59 David 10 Marck 2020-04-18 2020-04-18 Outpatient STLMLC STL[facility]C [id number] [facility] 00:00:00 00:00:00 Ayanna Hernandez ent Clinics 2020-04-11 2020-04-11 Outpatient Krell, MHMISCHER MHMISCHER [id number] 10:00:00 23:59:59 David 09 Marck 2020-03-29 2020-03-29 Outpatient Juliet, FAYEMISCHER MHMISCHER [id number] 14:00:00 23:59:59 David 08 Marck 2020-03-22 2020-03-22 Outpatient [facility] [id number] [facility] 2020-03-16 2020-03-16 Outpatient [facility]MLC [facility] [id number] [facility] 2020-03-08 2020-03-08 Outpatient [facility] [id number] [place] 00:00:00 00:00:[address] 2020-03-07 2020-03-07 Outpatient [facility]MLC [facility] [id number] [facility] 2020-02-29 2020-02-29 Outpatient Juliet, FAYEMISCHER MISCHER [id number] 11:15:00 23:59:59 David 07 Marck 2020-02-21 2020-02-21 Outpatient [facility]LMLC [facility] [id number] [facility] 2020-02-17 2020-02-17 Outpatient [facility]MLC [facility] [id number] [facility] 2020-02-12 2020-02-16 Inpatient ERICA [facility] [id number] [place] 00:00:00 00:00:00 BLESSING [address] 2020-02-15 2020-02-15 Outpatient Juliet, MHMISCHER MHMISCHER [id number] 09:15:00 09:15:00 David 06 [facility] 2020-02-09 2020-02-09 Outpatient [facility]MLC [facility] [id number] [facility] 2020-02-03 2020-02-08 Inpatient VARSHA, [facility] [id number] [place] 00:00:00 00:00:00 MICHAEL [address] 2020-01-17 2020[facility]01-17 [id number] [facility] [place] [facility] 2019-12-14 2019-12-14 [facility] [id number] 10:48:00 10:48:00 t Stat s - Drive [facility] l Medicine Outpati ent Clinics 2019-11-23 2019-11-23 [facility] [id number] 09:00:00 09:00:00 t Stat s - [facility]'s [facility] Medicine Outpati ent Clinics 2019-11-23 2019-11-23 [facility] [id number] 08:05:00 08:05:00 [facility] Medicine Outpati ent Clinics 2019-10-15 2019-10-15 [facility] [id number] 08:44:00 08:44:00 t Stat s - [place]'s [facility] Medicine Outpati ent Clinics 2019-09-07 2019-09-07 [facility] [id number] 11:56:00 11:56:00 [facility] Medicine Outpati ent Clinics 2019-08-13 2019-08-13 [facility] [id number] 10:20:00 10:20:00 t Stat s - Drive [facility] Medicine Outpati ent Clinics 2019-08-12 2019-08-12 [facility] [id number] 09:49:00 09:49:00 t Stat s - Drive [facility] Medicine Outpati ent Clinics 2019-06-15 2019-06-15 [facility] [id number] 15:24:00 15:24:00 t Stat s - Drive [facility] Medicine Outpati ent Clinics 2019-06-09 2019-06-09 [facility] [id number] 08:40:00 08:40:00 [address] [facility] [address] [facility] Medicine Outpati ent Clinics 2019-06-03 2019-06-03 [facility] [id number] 10:52:00 10:52:00 t [place] [employer] Luke s - Drive [facility] Medicine Outpati ent Clinics 2019-05-28 2019-05-28 [facility] [id number] 16:20:00 16:20:00 t [place] [employer] Lumakemoji s - Drive [facility] Medicine Outpati ent Clinics 2019-05-21 2019-05-22 Outpatient MHMISCHER MISCHER [id number] 14:44:00 23:59:59 00 2019-04-28 2019-04-28 [id number] 13:00:00 13:00:00 David 05 Marck 2019-01-01 2019-01-01 [facility] [id number] [facility] 15:32:00 15:32:00 [place] makemoji s - Drive [facility] Medicine Outpati ent Clinics 2018-12-31 2018-12-31 [facility] [id number] 09:55:00 09:55:00 [place] [employer]ak[employer] s - Drive [facility] Medicine Outpati ent Clinics 2018-12-30 2018-12-30 [facility] [id number] 13:25:00 13:25:00 [place] Lumak[employer]ji s - Drive [facility] Medicine Outpati ent Clinics 2018-12-30 2018-12-30 [facility] [id number] 08:00:00 08:00:00 [place] Luke s - Drive [facility] Medicine Outpati ent Clinics 2018-12-29 2018-12-29 [facility] [id number] 09:42:00 09:42:00 [place] [employer] - Drive [facility] Out[facility] Clinics 2018-12-23 2018-12-23 Outpatient DEDE ChungSCHBINU MISCHER [id number] 13:15:00 23:59:[address] [place] [address] 2018-12-04 2018-12-04 [facility] [id number] 16:20:00 16:20:00 [place] [facility] [place] [facility] - Drive [facility] Outpati ent Clinics 2018-11-30 2018-11-30 [facility] [id number] 10:08:00 10:08:00 t Urgent [facility] L [facility] Outpati ent Clinics 2018-11-27 2018-11-27 Outpatient DEDE ChungSCHER MISCHER [id number] 10:45:00 23:59:59 David 03 [facility] 2018-11-27 2018-11-27 [facility] [id number] 13:00:00 13:00:00 t [place] [employer] - Drive [facility] Clin[facility] 2018-10-29 2018-10-29 [facility] [id number] 10:40:00 10:40:00 t [place] [employer] - Drive [facility] Outpati ent Clinics 2018-10-16 2018-10-16 Outpatient DEDE ChungSCHER MISCHER [id number] 09:00:00 23:59:59 David 02 [facility] 2018-10-02 2018-10-02 Outpatient DEDE ChungSCHBINU MCKINNEYMISCHER [id number] 15:00:00 23:59:59 David 01 [facility] 2018-10-01 2018-10-01 Outpatient DEDE ChungSCHER MHMISCHER [id number] 08:15:00 23:59:59 David 00 [facility] 2018-09-30 2018-09-30 [facility] [id number] 13:00:00 13:00:00 t [place] [employer] [place] - Drive [facility] Outpati ent Clinics 2018-08-31 2018-08-31 [facility] [id number] 11:00:00 11:00:00 t [place] [employer] - Drive [facility] Outpati ent Clinics 2018-07-27 2018-07-27 [facility] [id number] 13:54:00 13:54:00 [place] [address] Luke [place] - Drive [facility] Medicine Outpati ent Clinics 2018-07-23 2018-07-23 [facility] [id number] 08:53:00 08:53:00 t [place] xiao qu wu youke s - Drive [facility] Medicine Outpati ent Clinics 2018-07-23 2018-07-23 [facility] [id number] 08:15:00 08:15:00 t [place] [employer] [place] - Drive [facility] Medicine Outpati ent Clinics 2018-06-22 2018-06-22 [facility] [id number] 10:30:00 10:30:00 t [place] [employer] [place] [facility] - Drive [facility] Medicine Outpati ent Clinics 2018-05-04 2018-05-04 [facility] [id number] 12:00:00 12:00:00 [place] [employer] makemoji s - Drive [facility] Medicine Outpati ent Clinics 2018-04-02 2018-04-02 [facility] [id number] 09:00:00 09:00:00 [place] [employer] makemoji s Drive [facility] Clinics Results Test Description Test Time Test Comments Results Result [facility] e Comments MRI Thoracic 2020-05-22 [facility] Spine W Contrast 6 Radiology Results M ethodist 17:13:41 Incoming - 06/06/2020 5:16 PM CSTEXAMINATION: MRI THORACIC SPINE W CONTRASTCLINICAL HISTORY: Evaluation of right sided hemiparesis hemisensory lossCOMPARISON: Thoracic spinal MRI on 02/03/2020, concurrent cervical and lumbar spinal MRIs on 06/06/2020.TECHNIQUE: Postcontrast thoracic spine MRI after intravenous contrast administration, MS protocol.FINDINGS:The spinal cord is normal in signal with no abnormal enhancement.Normal thoracic kyphosis and alignment. Vertebral body heights are preserved. Bone marrow signal is unremarkable with no evidence of acute fracture or suspicious marrow-replacing lesion. T8-9: Again noted is chronic Schmorl's node along T8 inferior endplate, moderate disc height loss, and shallow broad-based left paracentral disc protrusion without significant spinal canal stenosis.No significant neural foraminal stenosis.Visualized paraspinal soft tissues are unremarkable.IMPRESSI ON:Stable thoracic spinal MRI with unremarkable spinal cord, no evidence of demyelinating lesion. Stable mild spondylosis at T8-9 without significant spinal canal or neural foraminal stenosis.[id number] MRI Cervical 2020-05-22 [facility] Spine W Contrast 6 Radiology Results M ethodist 17:08:17 Incoming - 06/06/2020 5:11 PM CSTEXAMINATION: MRI CERVICAL SPINE W CONTRASTCLINICAL HISTORY: Right sided hemiparesis hemisensory lossCOMPARISON: NoneTECHNIQUE: Multiplanar multisequence pre and post contrast enhanced examination was performed of the cervical spine.FINDINGS: Vertebral body heights are maintained. The cervicomedullary junction is unremarkable. No cord signal abnormality identified. No focal marrow lesions. No masses are present in the visualized prevertebral soft tissues. No enhancing lesion identified on the postcontrast images.Cervical alignment is preserved with normal lordosis. There is no significant spondylolisthesis. Axial images through the disc spaces demonstrate the following:C1-C2: The atlantoaxial interval is intact with no significant disease or stenosis.C2-C3: No significant posterior disc disease, spinal canal or neural foraminal stenosis.C3-C4: No significant posterior disc disease, spinal canal or neural foraminal stenosis.C4-C5: No significant posterior disc disease, spinal canal or neural foraminal stenosis.C5-C6: No significant posterior disc disease, spinal canal or neural foraminal stenosis.C6-C7: No significant posterior disc disease, spinal canal or neural foraminal stenosis.C7-T1: No significant posterior disc disease, spinal canal or neural foraminal stenosis.No significant posterior disc disease, spinal canal or neural foraminal stenosis at other visualized levels.IMPRESSION: No significant cervical spine abnormality identified. No enhancing lesion identified.[id number] MRI Brain W Wo 2020-05-22 [facility] Contrast [address] 16:41:58 - 06/06/2020 4:45 PM CSTEXAMINATION: MRI BRAIN W WO CONTRASTCLINICAL HISTORY: RIght sided hemiparesis hemisensory lossCOMPARISON: Orbit and brain MRI on 02/03/2020.TECHNIQUE: Brain MRI without and with intravenous gadolinium contrast, MS protocol.FINDINGS:The brain appears stable, normal in signal and configuration with no evidence of acute infarction, hemorrhage, mass lesion, or abnormal enhancement.Ventricle s, sulci, and cisterns are stable and normal in size and configuration. No extra-axial fluid collection. Flow voids of the major intracranial vessels are intact.Mucous retention cysts are again noted along the floor of the right maxillary sinus. Mastoid air cells are clear. Bones, orbits, and soft tissues are unremarkable.IMPRESSI ON:Unremarkable brain MRI with no evidence of demyelinating lesion or other acute intracranial abnormality.[id number]_PS 02 Ferritin level 2020-06-06 13:04:33 Test Item Value Reference Range Interpretation Comme nts Ferritin level (test code = 2276-4) <13 13-150 A Lab Interpretation (test code = 15208-3) Abnormal [place] ChacortaistInterleukin 13:04:33 Test Item Value Reference Range Interpretation Comments Interleukin 6 (test <2.5 0-10.5 This nicole t has not been code = 39438-2) FDA cleared or approved. This test has b een authorized by F DA under an EUA for use by authorized labo ratories. This test has b een authorized only to assist in identifying severe inflammatory re sponse, when used as an aid in determining the risk of intubation with mechanical vent ilation in confirmed COVID -19 patients. This test is only authorized for the duration of the declaration abiodun t circumstances e xist justifying the authorization o f emergency use o f medical devices under S ection 564(b)(1) of th e Act, 21 U.S.C. 360bbb-3(b)(1 ), unless the authorizati on is terminated or r evoked sooner. Turner WorleyC-reactive ktoxhfi2413-82-38 12:57:24 Test Item Value Reference Range Interpretation Comments CRP (test code = 1988-) <0.30 0-0.5 Turner WorleyBtugcnkgsFOW2342-32-77 12:57:23 Test Item Value Reference Range Interpretation Comments LDH (test code = 55315-5) 136 U/L 87-225 Turner WorleyOmziepuwvB-rgzzk5370-49-16 12:47:11 Test Item Value Reference Range Interpretation Comments D-dimer (test code = 0.35 See_Comment Units a re ug/ml Fibrinogen 13009-3) Equivalent Unit .When combined with l ow clinical probability, D- dimer results of less than 0. 5 ug/ml FEU have a good neg ative predictive valu e in excluding PE or DVT. For D-dimer results greater than 0.5 ug/ml FEU further testing is bess cated if PE or DVT is suspe cted clinically.Elev ated D-dimer results have be en reported in DVT, PE, and DIC cases and may indicat e the presence of a c lot. D-dimer results may be elevated due to old age, pre gnancy, inflammatory di seases, trauma, post-op erative states, sepsis, and malignancies. [Automated message] The [employer] stem which generated this result transmitted ref erence range: 0.00 - 0.40 ug/ mL FEU. The reference range was not used to interpret th is result as normal/abnormal . [place] SiewvmxunFxorrmzmyq3601-31-32 12:44:31 Test Item Value Reference Range Interpretation Comments Fibrinogen (test code = 42800-1) 293 mg/dL 200-450 [place] MethodistCT Chest Wo [id number] 12:08:03Hm Interface, Radiology Results Incoming - 06/06/2020 12:11 PM CSTEXAMINATION: CT CHEST WO CONTRASTHI STORY: COVID-19 positive with chest tightnessTECHNIQUE: CT examination of the chest was performed without intravenous contrast. Radiation dose-reduction techniques were used, whereby technical factors are evaluated and adjusted to ensure appropriate moderation of exposure. Automated dose management technology is applied to adjust radiation exposure while achieving a diagnostic quality image.COMPARISON: No prior CT available.FINDINGS: Devices: None.Pulmonary: Minimal nodular groundglass opacity along the periphery of the right upper lobe, as well as base. No consolidative pulmonary opacity. No suspicious pulmonary nodule.Pleural: No effusion or pneumothorax.Cardiovascular: Heart size normal. No pericardial effusion. No appreciable calcific coronary artery disease.Mediastinum/Nodes: No thoracic lymphadenopathy. Musculoskeletal: No acute or aggressive-appearing osseous lesion. Upper abdomen: Cholecystectomy clips. Upper limit of normal-size spleen.IMPRESSION:1.Few faint peripheral groundglass opacities in both lower lobes. Together with the positive lab findings, this is compatible with mild Covid pneumonia.[id number] MethodistCOVID-19 qualitative [id number] 18:32:38 Test Item Value Reference Range Interpretation Comments Interpretation (test Positive results code = 6098952) are indicative of active infection with 2019-nCoV but do not rule out bacterial infection or coinfection with other viruses. The agent detected may not be the definite cause of disease. COVID-19 qualitative Detected Not-Detected A PCR result (test code = 38898-6) COVID-19 qualitative See link below for C ase Number: PCR (test code = PDF Lab Report [id number]) Lab Interpretation Abnormal (test code = 41562-0) [place] MethodistUrinalysis screen and microscopy, with reflex to culture 2020-06-04 12:57:58 Test Item Value Reference Range Interpretation Comments Specimen site (test Clean catch code = 9868187) Color, UA (test code = Yellow 5778-6) Appearance, UA (test Clear code = 5767-9) Specific gravity, UA >1.060 1.001-1.035 H Results double (test code = 5811-5) checked . pH, UA (test code = 6.0 5.0-8.5 5803-2) Protein, UA (test code Negative Negative = 14016-3) Glucose, UA (test code Negative Negative = 74870-4) Ketones, UA (test code Negative Negative = 2514-8) Bilirubin, UA (test Negative Negative code = 5770-3) Blood, UA (test code = Negative Negative 5794-3) Nitrite, UA (test code Negative Negative = 5802-4) Urobilinogen, UA (test <2.0 <2.0 code = 31479-3) Leukocyte esterase, UA Negative Negative (test code = 5799-2) Epithelial cells, UA 10 See_Comment [Autom ated (test code = 5787-7) message ] The system which generated this result transmitted reference range : /HPF. The refer ence range was not u sed to interpret th is result as normal/abnormal . WBC, UA (test code = 2 See_Comment [Autom ated 5821-4) message] The sy stem which generated this result transmitted reference range : 0 - 4 /HPF. The reference range was not used to interpret this result as normal/abnormal . RBC, UA (test code = 2 See_Comment [Autom ated 12025-9) message] The sy stem which generated this result transmitted reference range : 0 - 5 /HPF. The reference range was not used to interpret this result as normal/abnormal . Bacteria, UA (test code None seen None seen = 66425-2) Yeast, UA (test code = None seen 24494-3) Yeast with None seen pseudohyphae, UA (test code = 29581-4) Lab Interpretation Abnormal (test code = 13824-2) Turner WorleyUrine jtmyxon4582-08-93 12:51:05 Test Item Value Reference Range Interpretation Comments Urine culture (test SEE COMMENT Bacteriu kieran screen code = 8501779) negative. [place] MethodginettehCG qualitative, urine fyqqbc5040-32-78 12:48:01 Test Item Value Reference Range Interpretation Comments hCG qualitative, Negative Sensitivity of HCG test: urine (test code = 25 mIU/mL 2105-3) [place] UatsdinComprehensive metabolic mhzei3815-18-22 03:34:16 Test Item Value Reference Range Interpretation Comments Sodium (test code = 137 See_Comment [Automa leon message] 2061-2) The system [employer] generated this result transmit leon reference range : 135 - 148 mEq/L. Th e reference range was not used to interpret this result as normal/abnormal . Potassium (test code = 3.3 See_Comment L [Aut omated message] 8013-3) The system [employer] generated this result transmit leon reference range : 3.5 - 5.0 mEq/L. Th e reference range was not used to interpret this result as normal/abnormal . Chloride (test code = 106 See_Comment [Auto mated message] 5-0) The system [employer] generated this result transmit leon reference range : 98 - 112 mEq/L. Th e reference range was not used to interpret this result as normal/abnormal . CO2 (test code = 21 See_Comment L [Automated message] 2027-9) The system [employer] generated this result transmit leon reference range : 24 - 31 mEq/L. The reference range was not used to interpret this result as normal/abnormal . Anion gap (test code = 10@ANIO See_Comment [Aut omated message] 85583-1) The system [employer] generated this result transmit leon reference range : 7 - 15 mEq/L. The reference range was not used to interpret this result as normal/abnormal . BUN (test code = 11 mg/dL 6-20 3094-0) Creatinine (test code = 0.86 mg/dL 0.5-0.9 2160-0) Glucose (test code = 113 mg/dL 65-99 H 2345-7) Calcium (test code = 8.1 mg/dL 8.3-10.2 L 59797-1) Protein (test code = 6.7 g/dL 6.3-8.3 -[place] n 2885-2) 4.6-7.0 g/ dL1 week 4.4-7.6 g/dL7 months-1year 5.1-7.3 g/dL1 -2 years 5.6-7.5 g/dL>3 years 6.0-8.0 g/dL18- 150 6.3-8.3 g/dL Albumin (test code = 3.9 g/dL 3.5-5 1751-7) A/G ratio (test code = 1.4 0.7-3.8 1759-0) Alkaline phosphatase 69 U/L 35-104 (test code = 6768-6) AST (test code = 21 U/L 10-35 1920-8) ALT (test code = 35 U/L 5-50 1742-6) Total bilirubin (test 0.3 mg/dL 0-1.2 code = 1974-) Lab Interpretation Abnormal (test code = 41857-2) [place] MethodistEstimated [id number] 03:34:14 Test Item Value Reference Range Interpretation Comments Estimated GFR (test 88 mL/min/1.73 m2 Caterg ory Units code = 5488) InterpretationG 1 >=90 Normal or highG2 60-89 Mildly qvcxltjynT6c 45-59 Mildly to mode rately acpfsbrvaZ5e 30-44 Moderately to severely decreasedG4 15-29 Severely decre asedG5 <15 Kidn ey failureThe eGFR was calculated morena dover the Chronic Kidney Disease Epidemiology Co llaboration (CKD-EPI) equat ion. Interpretation is based on recommendations of the National Kidney Foundation-Kidn ey Disease Outcomes Qualit y Initiative (NKF-KDOQI) pub lished in 2014. [place] MethodistCBC with platelet and speksmcdicpv7810-62-06 03:08:29 Test Item Value Reference Range Interpretation Comments WBC (test code = 4.53 See_Comment [Automated message] 98198-2) The system [employer] generated this result transmitted ref erence range: 4.50 - 1 1.00 k/uL. The refer ence range was not u sed to interpret this result as normal/abnor mal. RBC (test code = 4.45 m/uL 4.2-5.5 30649-8) HGB (test code = 718-7) 12.6 g/dL 12-16 HCT (test code = 38.5 % 37-47 4544-3) MCV (test code = 787-2) 86.5 fL 82-100 MCH (test code = 785-6) 28.3 pg 27-34 MCHC (test code = 32.7 g/dL 31-37 786-4) RDW - SD (test code = 39.6 fL 37-55 20800-2) MPV (test code = 11.8 fL 8.8-13.2 25214-3) Platelet count (test 194 See_Comment [Autom ated message] code = 77179-2) The system [employer] generated this result transmitted ref erence range: 150 - 40 0 k/uL. The refer ence range was not u sed to interpret this result as normal/abnor mal. Nucleated RBC (test 0.00 See_Comment [Automa leon message] code = 37688-4) The system [employer] generated this result transmitted ref erence range: /100 WBC . The reference range was not used to int erpret this result as normal/abnormal . Neutrophils (test code 49.9 % 39-69 = 70337-0) Lymphocytes (test code 39.1 % 25-45 = 28819-0) Monocytes (test code = 9.9 % 0-10 81164-4) Eosinophils (test code 0.7 % 0-5 = 54206-4) Basophils (test code = 0.2 % 0-1 67949-9) Immature granulocytes 0.2 % 0-1 "Immat ure (test code = 70495-6) granul ocytes" (promyelocytes, myelocytes, metamyelocytes) [facility] MethodistMiscellaneous referral dimy5972-66-59 10:53:54 Test Item Value Reference Range Interpretation Comments Misc test ?NMO IgG name (test code = 2566) Misc test see note Report Status: FINAL result (test code = 1730) NMO/ AQP4 FACS, S Negative Reference Value : Negative Recommend repea t testing in 6 months if clini conrad suspicion is high. Negative result can occur in the setting of immunosuppressi on. - - - - - - - - - - - - - - - - - - - - - - - - - - - - - - L aboratory Notes:This test was developed and its performancechar acteristics determined by [facility] in a mannerconsisten t with CLIA requirements. T his test has not beencleared or approved by the U.S. Food and DrugAdministrat ion. + +: P ERFORMING SITE LEGEND :+ +: : [facility] :: : [address], [place] [address] :+ + Turner Mckeon ilezrhm5646-15-27 12:13:05 Test Item Value Reference Range Interpretation Comments AFB culture No growth Specimen isolate (test after 6 weeks InformationSp ecimen code = 543-9) of Source: CSF (S naseem incubation. Fluid)Specimen Site: CSF (spinal fluid) Turner WorleyOCT, Optic Nerve - [id number] 13:34:42Chavo Bull MD - 05/24/2020 5:54 PM [facility] MethodistAutomated Visual Field, Extended - OU 2020-03-08 13:34:39Chavo Bull MD - 05/24/2020 5:54 PM [facility] Uatsdin Fungus yddwrqw1131-07-62 12:15:08 Test Item Value Reference Range Interpretation Comments Fungus culture No growth Specimen isolate (test after 4 weeks InformationSp ecimen code = 1441) of Source: CSF (Sp inal incubation. Fluid)Specimen Site: CSF (spinal fluid) Turner Worley3 in 1 Sejoocm0864-29-81 11:07:52 Test Item Value Reference Range Interpretation Comments SUPPLIER NAME (test XMED Oxygen and code = 6415) Medical SUPPLIER PHONE (test [phone] code = 6416) ORDER STATUS (test code Delivery Successful = 6417) DELIVERY NOTE (test code = 6419) REQUESTED DELIVEY DATE 02/16/2020 (test code = 6420) ITEM DESCRIPTION (test 3 in 1 Commode Qty : 1 code = 6423) ACTUAL DELIVERY DATE 02/16/2020 (test code = 6422) Turner WorleyBasic metabolic rymwj2330-47-13 06:42:23 Test Item Value Reference Range Interpretation Comments Sodium (test code = 138 See_Comment [Automa leon message] 0641-2) The system [employer] generated this result transmit leon reference range : 135 - 148 mEq/L. Th e reference range was not used to interpret this result as normal/abnormal . Potassium (test code = 4.1 See_Comment [Aut omated message] 2982-3) The system [employer] generated this result transmit leon reference range : 3.5 - 5.0 mEq/L. Th e reference range was not used to interpret this result as normal/abnormal . Chloride (test code = 103 See_Comment [Auto mated message] 4649-0) The system [employer] generated this result transmit leon reference range : 98 - 112 mEq/L. Th e reference range was not used to interpret this result as normal/abnormal . CO2 (test code = 21 See_Comment L [Automated message] 2027-12) The system [employer] generated this result transmit leon reference range : 24 - 31 mEq/L. The reference range was not used to interpret this result as normal/abnormal . Anion gap (test code = 14@ANIO See_Comment [Aut omated message] 09372-0) The system [employer] generated this result transmit leon reference range : 7 - 15 mEq/L. The reference range was not used to interpret this result as normal/abnormal . BUN (test code = 14 mg/dL 6-20 3094-0) Creatinine (test code = 0.81 mg/dL 0.5-0.9 2160-0) Glucose (test code = 110 mg/dL 65-99 H 2345-7) Calcium (test code = 8.6 mg/dL 8.3-10.2 44068-6) Lab Interpretation Abnormal (test code = 58181-8) [facility] General Vjydqzl0961-90-65 13:23:11Electromyogram and NCS ReportL[facility]BR[facility] Neurological Hbetoeuki6546Jfmg,WP11,[place],[id number]: F : Patient: Snow Argueta Physician: Nicolasa [...] Site: Wrist Pk Lat (ms) Amp (uV)Stim Jhjj0fo dig 2.5 21.0 Sensory Nerve Study Right [...] independent left and right full field monocularstimulation. GwqM952 absolute latencies were 99.8 msec and 102.6 msec following independent left andright eye stimulation. All interpeak latencies and waveform morphologies were normal. ImpressionThisis a normal study. ICD10 Code/Diagnosis: R99Emjtjqy MethodistMRI Lumbar Spine W Wo Vephrmur0896-43-71 11:16:59Hm Interface, Radiology Results 02/13/2020 11:20 AM [...] Vertebral body and intervertebral disc heights are preserved.Conus medullaris terminates appropriately at the level level. No abnormal T2 hyperintense intramedullary signal or enhancement identified. The cauda equina nerve roots are symmetric and normal in appearance. No abnormal thickening, clumping or enhancement identified.Evaluation of the visualized soft tissues demonstrates no mass, adenopathy or aneurysm. Axial images through the disc spaces demonstrate the following:L1-L2: No significant posterior disc disease, spinal canal, subart icular zone, or neural foraminal stenosis.L2-L3: No significant [...] on the right. Recommend correlation to radiculopathy distribution.[id number] St. [facility] Brain Ceqykztg5131-65-95 09:57:03Hm Interface, Radiology Results 02/13/2020 10:00 AM CDTEXAM: MRI BRAIN VENOGRAMCLINICAL HISTORY: Headache chronic normal neuro examTECHNIQUE: Head MR venogram using 2D kxvo-cq-julzat technique with multi-planar MIP and 3D reconstruction.COMPARISON: [...] no definite evidence of dural sinus venous thrombosis.[id number] MethodistCytomegalovirus by PCR 2020-02-11 15:29:57 Test Item Value Reference Range Interpretation Comments Cytomegalovirus by PCR Not-Detected Not-Detected (test code = 5000-5) IU/mL Cytomegalovirus by PCR See link below Delta e Number: (test code = 1089) for [facility] Lab [id number] Report [place] MethodistAngiotensin converting enzyme, [id number] 19:56:01 Test Item Value Reference Range Interpretation Comments Angiotensin 0.6 U/L 0-2.5 This test was d eveloped converting enzyme, and its p erformance CSF (test code = characteris tics 11851-0) determined by [facility]. T he U.S. Food and Drug Administration has not approved or kole ared this test; however, FDA clearance or ap proval is not currently r equired for clinical us e. The results are not intended to be used as t he sole means for clini conrad diagnosis or pa tient management decisions.Perfo rmed By: [facility] [address] [place], [place] [address]T aboratory Director: Nai Rushing MD [facility]West Nile virus antibody panel, [id number] 17:17:47 Test Item Value Reference Range Interpretation Comments West Nile IgG, CSF 0.09 See_Comment INTERPRET YOLANDA INFORMATION: (test code = [place] [address]-4) DARSHANA, CSF 1.2 9 IV or less [...] other m embers of the Flaviviridae fa [facility], such as [place] encep halitis virus, show extensive cross-reactivit y [...] developed and c haracteristics determined by [facility]. S ee Compliance Statement B: ar Hightower/Masala [Automated mess age] The system which ge nerated this result transmit leon reference range: <=1.29 I V. The reference range was not used to interpret th is result as normal/abnormal . West Nile IgM, CSF 0.02 See_Comment INTERPRET YOLANDA INFORMATION: (test code = [place] [address]-5) DARSHANA, CSF0.89 IV or less ...... Negative [...] of the Flaviviridae fa priscila, such as [place] encep halitis virus, show extensive cross-reactivit y [...] developed and c haracteristics determined by [facility]. S ee Compliance Statement B: Natera/CSP erformed By: [facility] [address] [place], [place] [address]Yvncwnhybo Director: Nai Rushing MD [Automated mess age] The system which ge nerated this result transmit leon reference range: <=0.89 I V. The reference range was not used to interpret th is result as normal/abnormal . [facility] MethodistBlood culture, aerobic & eugggpnpm1920-64-32 05:33:06 Test Item Value Reference Range Interpretation Comments Blood culture No growth Specimen isolate (test after 5 days InformationSpe [facility] hospitalen code = 600-7) of Source: BloodS pecimen incubation. Site: Antecubit al, right [facility] MethodistLyme disease reflexive panel, [id number] 23:48:04 Test Item Value Reference Range Interpretation Comments B. burgdorferi Abs 0.08 See_Comment When the Borrelia DARSHANA, CSF (test code burgdo rferi Abs, Total by = 60836-5) DARSHANA result is negative, no further test [...] BENITA stone. See Compliance Stat ement B: Sensorion.com/CSP erformed By: BENITA [address] [place], [place] [address]Eda[facility] Director: Nai Rushing MD [Automated m essage] The system which ge nerated this result tra nsmitted reference range : <=0.99. The reference r gee was not used to int erpret this result as crow l/abnormal. [place] MethodistVENIPUNC NEED PHYS SKILL,DX OR [id number] 10:39:11CFamilia hickey RN 02/08/2020 10:40 AMMidline Date/Time: [...] Flat Vessel Size (mm): 5 Indication: Known machine long goods helper IV therapy Location: Left basilic Device Type:Non-valved Catheter Lumen(s): Single lumen Catheter size: 3 Fr Catheter to vein ratio: 24%MidLine Characteristics: Catheter Brand: SL PROVENA MIDLINE Internal Catheter Length (cm): 12 TotalCatheter Length (cm): 12 Catheter Lot Number: [id number] Catheter Expiration Date: 2Procedure details: Landmarks identified: [...] Patient tolerance of procedure: Tolerated well, no immediatecomplicationsMontrose MethodistVDRL, CSF zdkaic1257-67-12 02:23:37 Test Item Value Reference Range Interpretation Comments VDRL, CSF screen (test code = Non-reactive Non-reactive 3046) [facility] duplex venous upper mdieqgvqd5858-64-61 22:03:00Interface, Radiology Results In - 02/07/2020 10:03 PM CDT Vascular Ultrasound Laboratory Upper Extremity Venous [address] [place] [address] Pat.Name: SNOW ARGUETA Pat.ID: [id number] .Date: 02/07/2020 Refer.MD: MICHAEL MADDOX MD Exam Time: 4:33:00 PM Study Type:UE Venous Height: 66in Weight: 220lb BSA: 2.08 m2 Age: 7 1985,34Y Sex: FEMALE Sonogrphr: Ryan Torres RVT Pat. Stat.:Inpatient Room: [address] Vol: HV, CPT - 4: 06681 Echo Event ID:[id number] Order ID: [id number] Reason for Study:Right arm pain and swelling. [...] of the visualized veins.Result given to EBONIE Husani at 17:30 PM on 02/07/2020.PHYSICIAN INTERPRETATION Venous examination of the right upper extremity and neck demonstratedno evidence of deep venous thrombosis.Obstructed superficial venous thrombosis of right upper arm basilicvein. FINDINGS:-- Signed 02/07/2020 10:03 PMChaz Obrien MD, RPVIMontrose MethodistOligoclonal banding, [id number] 15:44:13 Test Item Value Reference Range Interpretation Comments Protein, CSF (test code 24 mg/dL = 2880-3) Prealbumin, CSF (%) 6.4 % 3.5-11.1 (test code = 45505-7) Albumin, CSF (test code 66.1 % 40.8-66.2 = 16575-2) Alpha 1, CSF (%) (test 2.4 % 2.3-6.4 code = 62076-7) Alpha 2, CSF (%) (test 6.1 % 6.1-12.6 code = 34547-3) Beta, CSF (%) (test 13.1 % 11.7-24.1 code = 85939-9) Gamma, CSF (%) (test 5.9 % 5.6-12.2 code = 92611-1) CSF extended See Comment An essentially interpretation (test normal CSF protein code = 77816-2) study. No oligoclonal ban ds seen. CSF interpretation See Comment Miguel Boyd, PhD; (test code = 1163) MD Turner Tafoya MethodistEnterovirus by [id number] 15:38:15 Test Item Value Reference Range Interpretation Comments Enterovirus PCR (test See link below Not-Detected Case Number: code = 41698-8) for PDF Lab [id number] Report Turner WorleyEpstein Noble Virus (EBV) by [id number] 15:13:17 Test Item Value Reference Range Interpretation Comments Albert Noble Not-Detected Not-Detected virus, PCR (test copies/mL code = 5005-4) Albert Noble See link below Case Number: virus, PCR (test for PDF Lab [id number] code = 1340) Report Turner WorleyVaricella zoster by [id number] 14:54:16 Test Item Value Reference Range Interpretation Comments VZV result (test Not-Detected Not-Detected code = 46047-2) copies/mL Varicella zoster, See link below Case Num rupal: pcr (test code = for PDF Lab [id number] 124) Report Turner WorleyCSF [id number] 14:08:32 Test Item Value Reference Range Interpretation Comments CSF culture No growth Specimen isolate (test after 3 days. InformationSp ecimen code = 606-4) Source: CSF (S naseem Fluid)Specimen Site: CSF (spinal fluid) Turner MethodistFlow cytometry hmeaetomrd0753-05-99 09:52:18 Test Item Value Reference Range Interpretation Comments Case number (test code = [id number]) Flow cytometry evaluation See link below for (test code = 4686788) PDF Lab Report Turner WorleyVENIPUNC NEED PHYS SKILL,DX OR [id number] 09:18:07Javier Kolb RN 02/07/2020 9:21 AMMidline Date/Time: [...] to vein ratio: 41%MidLine Characteristics: Catheter Brand: [employer] External Catheter Length (cm): 0 Internal Catheter Length (cm): 12 Total Catheter Length (cm): 12 Catheter Lot Number: [id number] Catheter Expiration Date: 1Procedure details: Landmarks identified: [...] tolerance of procedure: Tolerated well, no immediate complicationsMontrose UatsdinB. burgdorferi Abs total, vafnz1272-97-30 08:01:42 Test Item Value Reference Range Interpretation [...] tibody to B. burgdorferi detected.Perfor med By: [facility] [address] [place], [place] [address]L aboratory Director: Nai Rushing MD [facility] MethodistECG 12 [id number] 12:49:19 Test Item Value Reference Range Interpretation Comments Ventricular rate (test 78 code = 253) Atrial rate (test code 78 = 255) GA interval (test code 144 = 266) QRSD [...] was found- [facility] MethodistXR Chest 1 Vw Gkoesrzr6997-69-37 22:09:52Hm Interface, Radiology Results Incoming - 02/05/2020 10:12 PM CDTEXAMINATION: XR CHEST 1 VW PORTABLECLINICAL HISTORY: 34 years Female chest pressure on exertionCOMPARISON: None.IMPRESSION:No acute cardiopulmonary disease.FINDINGS:The cardiomediastinal silhouette, lungs, and regional skeletal structures are within normal limits for age. [facility]-PL58BIDRMovyofe MethodistHerpes simplex virus by [id number] 20:12:15 Test Item Value Reference Range Interpretation Comments Herpes virus, PCR Not-Detected Not-Detected (test code = 37303-1) Herpes virus, PCR See link below Case Num rupal: (test code = 1523) for PDF Lab [id number] Report [facility] MethodistCytology (non-gynecological) [id number] 18:15:16 Test Item Value Reference Range Interpretation Comments Case number (test code = [id number]) Cytology See link below for (non-gynecological) PDF Lab Report report (test code = 1178) Result status (test code This is Final Report = [id number]) for [id number] [facility] MethodistCryptococcal antigen, ivyvfv8421-38-00 17:47:33 Test Item Value Reference Interpretation Comments Range Cryptococcal Ag Negative - No Specimen (test code = Cryptococcus InformationSpec en 9820-2) antigen detected. Source: CS F (Spinal Fluid)Specimen Site: CSF (spinal flu id) Turner RvgcycbagLUV4417-43-02 13:52:17 Test Item Value Reference Range Interpretation Comments ELMER screen (test Negative Negative Test perfor med using NOVA code = 550) Lite DAPI ELMER k it (Indirect Immunofluoresce nce Assay) for Anti-Nuclea r Antibody on [employer] QUANTA-Ly ser 160 Analyzer. [facility] MethodistCSF cell count with ncktriordwyz5343-91-72 13:21:52 Test Item Value Reference Range Interpretation Comments Color, CSF (test code = Colorless 84817-7) Appearance, CSF (test Clear Correc leon result code = 40002-9) called to Maximiliano Mallory/Stefano T18 02/04/2020 13: 21 Corrected resul t; previously repo rted as Slightly haz y on 02/04/2020 at 1 1:19 by DH2 RBC, CSF (test code = 33 See_Comment H [Auto mated message] 12427-3) The system [employer] generated this result transmit leon reference range : 0 - 1 /CMM. The reference range was not used to interpret this result as normal/abnormal . WBC, CSF (test code = 1 See_Comment [Auto mated message] 31984-5) The system [employer] generated this result transmit leon reference range : 0 - 5 /CMM. The reference range was not used to interpret this result as normal/abnormal . CSF mononuclear cell 1/CMM (test code = 86394-5) Lab Interpretation (test Abnormal code = 65298-2) [facility] MethodistIgG synthesis rate [id number] 13:09:21 Test Item Value Reference Range Interpretation Comments IgG albumin ratio, SEE COMMENT 0.00-0.23 Footnote- -------- CSF (test code = 1588) IgG index, CSF (test SEE COMMENT 0.01-0.63 Footnot e--------- code = 93046-4) IgG synthetic rate SEE COMMENT See_Comment Footnote- -------- (test code = [Automated mess age] 78892-9) The system [employer] generated this result transmitted ref erence range: -9.90 - 3.30 mg/day. The ref erence range was not u sed to interpret this result as normal/abnor mal. Q-albumin ratio, CSF SEE COMMENT 2.00-7.50 Footnot e--------- (test code = 1756-6) IgG, CSF (test code SEE COMMENT 1-3 Footnote --------- = 2464-6) Albumin, CSF (test SEE COMMENT 1030 Footnote- -------- code = 80233-3) IgG (test code = SEE COMMENT 700-1600 Footnote--- ------Corre 2465-3) cted result; previously repo rted as 852 on 02/04/20 20 at 12:58 by I/AUT Albumin, S (test SEE COMMENT 6784-6628 Footnote--- ------DUPLI code = 25564-2) DRU ORDER.C orrected result; previou sly reported as 370 0.0 on 02/04/2020 at 1 2:58 by I/AUT Turner MethodistGram [id number] 12:47:25 Test Item Value Reference Range Interpretation Comments Gram stain No WBC's or Specimen isolate (test organisms seen. Information Specimen code = 1469) Source: CSF (Sp inal Fluid)Specimen Site: CSF (spinal fluid) Turner WorleyGlucose level, [id number] 11:17:32 Test Item Value Reference Range Interpretation Comments Glucose, CSF (test code = 2342-4) 90 mg/dL 40-70 H Lab Interpretation (test code = Abnormal 86141-3) Turner MethodistEEG (routine)2020-02-04 10:51:25EEG AWAKE AND ASLEEP [...] or epileptiform activity was recorded. ICD-10 Code: Y539Gstoujw MethodistIR Lumbar Puncture by Radiology 2020-02-04 10:23:15Hm Interface, Radiology Results Incoming - 02/04/2020 10:26 AM CDTEXAMINATION: IR LUMBAR [...] lumbar puncture.Opening pressure was 21 cm of water.[facility]-[id number] [facility] drugs of abuse screen 2020-02-04 03:10:50 Test Item Value Reference Interpretation Comments Range Amphetamine screen, Negative urine (test code = 3349-8) Barbiturate screen, Negative urine (test code = 3377-9) Benzodiazepine Negative screen, urine (test code = 3390-2) Cocaine screen, Negative urine (test code = 3397-7) Methadone Negative metabolite (EDDP), urine (test code = 82352-1) Opiates screen, Positive A urine (test code = 3879-4) Oxycodone screen, Negative urine (test code = 09647-6) Phencyclidine Negative screen, urine (test code = 3936-2) Tricyclic screen, Negative urine (test code = 06975-8) Cannabinoid screen, Negative Drug scr een minimum [...] ired. Lab Interpretation Abnormal (test code = 93624-4) [facility] Brain & Orbit W Wo Ljtwfqed4298-91-92 22:36:27Hm Interface, Radiology Results - 02/03/2020 10:39 PM CDTEXAMINATION: MRI BRAIN & ORBIT W WO CONTRASTCLINICAL HISTORY: Vision lossCOMPARISON: CT brain dated 02/03/2020.FINDINGS:Pre and postcontrast MRI of the brain and orbits is interpreted.The optic nerves, optic chiasm, and optic tracts are normal in size and signal intensity. There is no abnormal enhancement.The brain is normal in morphology and in signal intensity.There is no abnormal restricted diffusion.No extra-axial collectionor mass effect is seen.The major vascular flow-voids are preserved.IMPRESSION:Unremarkable MRI of the brain and orbits.[facility]-[id number] MethodistVitamin D 25 hydroxy phvak1091-37-34 20:37:03 Test Item Value Reference Range Interpretation [...] for alternative met hods. Turner Verdugoyphilis total nkqfiybn1110-83-55 20:32:43 Test Item Value Reference Range Interpretation Comments Syphilis total Non-reactive Non-reactive No serologica l antibody (test code evidence of syphilis = 6194) infection. Turner WorleyHIV Ag/Ab jahalejxsav6227-36-88 20:28:37 Test Item Value Reference Range Interpretation Comments HIV Ag/Ab combination (test code Non-reactive Non-reactive = 5299) Turner WorleyVitamin B12 rrnyj8605-89-56 19:35:13 Test Item Value Reference Range Interpretation Comments Vitamin B12 (test 541 pg/mL 211-946 Significan t overlap code = 2132-9) exists betwee n normal and deficiency states.However, most patients with deficiencies wi ll have Serum B12 <2 00 pg/mL. Turner WorleyFolate wrpmu7140-88-51 19:35:13 Test Item Value Reference Range Interpretation Comments Folate (test code = 2284-8) 8.0 ng/mL 4.8-24.2 [facility] MethodistSedimentation nfwp3217-13-16 19:34:55 Test Item Value Reference Range Interpretation Comments Sedimentation rate (test 7 See_Comment [A utomated message] code = 14969-7) The system w En[employer] generated this result transmitted ref erence range: 0 - 20 m m/hr. The reference r gee was not used to int erpret this result as normal/abnormal . [facility] MethodistT4, [id number] 19:25:51 Test Item Value Reference Range Interpretation Comments T4, free (test code = 3024-7) 1.0 ng/dL 0.9-1.7 Turner RdhdscnksH16642-61-18 19:25:51 Test Item Value Reference Range Interpretation Comments T3 (test code = 3053-6) 70 ng/dL 80-200 L Lab Interpretation (test code = Abnormal 77104-3) Turner WorleyCortisol level, vqqfyx2866-69-44 19:25:00 Test Item Value Reference Range Interpretation Comments Cortisol, random 2 ug/dL Reference R anges are not (test code = 2143-6) establi shed for non-timed Cortisol levels .Reference Range for Timed Cortisol: 6 - 10 AM 6 - 18 ug/dl 4 - 8 PM 3 - 11 ug/ dl Turner WorleyThyroid stimulating ctuiotf2132-30-60 19:25:00 Test Item Value Reference Range Interpretation Comments TSH (test code = 1.12 See_Comment [Automated message] The 3016-3) system which ge nerated this result transmit leon reference range : 0.27 - 4.20 uIU/mL. Th e reference range was not u sed to interpret this result as normal/abnormal . [facility] MethodisthCG quantitative, [id number] 19:20:00 Test Item Value Reference Range Interpretation Comments hCG quantitative, <1 See_Comment Reference range for HCG serum (test code = Quant ashutosh lies to males and 58920-3) non-fem ales.Post Menopausal 0.0 - 8.1 mIU/mL [Automated mes forest] The system which ge nerated this result transmit leon reference range : 0 - 5 mIU/mL. The ref erence range was not used to interpret this result as normal/abnormal . [facility] MethodistRheumatoid [id number] 19:14:45 Test Item Value Reference Range Interpretation Comments Rheumatoid factor (test <10 See_Comment [Au tomated message] The code = 63632-7) system which generated this result tra nsmitted reference range : 0 - 13 IU/mL. The refe rence range was not u sed to interpret this result as normal/abnormal . [facility] MethodistHomocystine, ohince5808-91-45 19:14:45 Test Item Value Reference Range Interpretation Comments Homocysteine (test 6.4 umol/L 0-15 The risk for coronary code = 49868-8) vascular dis ease increases progressively w ith homocysteine concentration. A 3.4 times greater r isk is associated with a homocysteine concentration o f greater than 15.8 umol/L as jt red to a concentration below 14.1 umol/L. [facility] MethodistCT Head Wo Vfcjgdin6982-50-85 16:17:18Hm Interface, Radiology Results 02/03/2020 4:20 PM [...] are intact.IMPRESSION:No CT evidence for acute intracranial abnormality.[id number] Uatsdin
--- NOTE | 2020-06-09 20:50 | RAD REPORT ---
EXAM DESCRIPTION: Mariusz Single View06/09/2020 8:39 pm CLINICAL HISTORY: Cough COMPARISON: June 03, 2020 FINDINGS: The lungs appear clear of acute infiltrate. The heart is normal size IMPRESSION: No acute abnormalities displayed
[2020-06-09 21:05] LABS: Absolute Lymphocytes (CBC) 2.6 K/uL (0.7-4.9); Basophils % 0.5 % (0-1.3); Hematocrit 39.7 % (36.0-45.0); Lymphocytes % 30.7 % (15.3-44.8); RBC Red Blood Cell Count 4.68 M/uL (3.86-4.86)
[2020-06-09 21:18] LABS: Albumin 4.2 g/dL (3.4-5.0); Bilirubin Direct 0.1 mg/dL (0-0.2); Bilirubin Total 0.4 mg/dL (0.2-1.0); Magnesium 2.2 mg/dL (1.8-2.4); Potassium 3.2 mmol/L (3.5-5.1); Protein, Total 7.6 g/dL (6.4-8.2)
[2020-06-09] MEDS ORDERED: PROMETHAZINE INJ 25 MG/ML AMP ONE (21:19)
[2020-06-09] MEDS ORDERED: NA CHLORIDE 0.9% 1,000 ML ONE (21:20)
[2020-06-09] MEDS ORDERED: FAMOTIDINE 20 MG/2 ML VIAL IV ONE (21:20)
[2020-06-09 21:21] LABS: Urine Amorphous Sediment 2+ /HPF (NONE SEEN); Urine Bacteria >50 /HPF (<20); Urine Mucus 2+ /HPF (NONE SEEN); Urine RBC <5 /HPF (NONE SEEN); Urine Yeast FEW (NONE SEEN)
--- NOTE | 2020-06-09 21:45 | ER ---
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 Coronavirus screen: Client presents with at least one sign or symptom that may indicate coronavirus-19. Standard/surgical mask placed on the client. Provider contacted for isolation considerations. Client reports previous positive COVID test result. Ebola Screen: Patient negative for fever greater than or equal to 101.5 degrees Fahrenheit, and additional compatible Ebola Virus Disease symptoms Patient denies exposure to infectious person. Patient denies travel to an Ebola-affected area in the 21 days before illness onset. No symptoms or risks identified at this time. Initial Sepsis Screen: Does the patient meet any 2 criteria? No. Patient's initial sepsis screen is negative. Does the patient have a suspected source of infection? No. Patient's initial sepsis screen is negative. Risk Assessment: Do you want to hurt yourself or someone else? Patient reports no desire to harm self or others. Onset of symptoms was June 09, 2020. 18:13 Method Of Arrival: Ambulatory iw 18:13 Acuity: LEONEL 3 iw Historical: - Allergies: 18:16 Cephalexin; iw 18:16 Gadavist; iw 18:16 Latex, Natural Rubber; iw 18:16 Zofran; iw - Home Meds: 18:16 Vyvanse oral oral [Active]; Trokendi XR oral oral [Active]; Pepcid Oral [Active]; iw - PMHx: 18:16 ADD/ADHD; Blood Clot on R arm; Endometrosis; epilepsy; GERD; Leukemia; Pancreatitis; iw - PSHx: 18:16 Cholecystectomy; Appendectomy; iw Screenin:30 Abuse screen: Denies threats or abuse. Denies injuries from another. Nutritional sf screening: No deficits noted. Tuberculosis screening: No symptoms or risk factors identified. Never had TB. Possible symptoms: None Risk factors: None. Fall Risk None identified. No fall in past 12 months (0 pts). No secondary diagnosis (0 pts). IV access (20 points). Ambulatory Aid- None/Bed Rest/Nurse Assist (0 pts). Gait- Normal/Bed Rest/Wheelchair (0 pts) Mental Status- Oriented to own ability (0 pts). Total Ar[place]aga Fall Scale indicates No Risk (0-24 pts). Assessment: 19:28 Reassessment: PT remains in ER Lobby. Updated on current room availability. informed jb4 that she would be brought back as soon as possible. respirations are even and unlabored with no s/s of distress noted. 20:30 General: Appears in no apparent distress. comfortable, Behavior is calm, cooperative, sf appropriate for age. Pain: Denies pain. Neuro: No deficits noted. Level of Consciousness is awake, alert, obeys commands, Oriented to person, place, time, situation, Appropriate for age. Cardiovascular: No deficits noted. Patient's skin is warm and dry. Rhythm is sinus rhythm. Respiratory: No deficits noted. Airway is patent Respiratory effort is even, unlabored, Respiratory pattern is regular, symmetrical. GI: Abdomen is non-distended, Reports nausea, vomiting. Vital Signs: 18:13 BP 126 / 91; Pulse 85; Resp 16; Temp 98.7; Pulse Ox 100% on R/A; Weight 95.25 kg; iw Height 5 ft. 6 in. (167.64 cm); 19:36 BP 139 / 100; Pulse 89; Resp 18; Temp 97.6(TE); Pulse Ox 99% on R/A; jb4 20:39 BP 118 / 81; Pulse 84; Resp 16; Pulse Ox 100% ; sf 21:00 BP 124 / 86; Pulse 88; Resp 16; Pulse Ox 100% ; sf 22:00 BP 117 / 73; Pulse 64; Resp 16; Pulse Ox 99% ; sf 22:30 BP 107 / 61; Pulse 96; Resp 16; Pulse Ox 99% ; Pain 8/10; sf 18:13 Body Mass Index 33.89 (95.25 kg, 167.64 cm) iw Vitals: 22:00 Cardiac Rhythm Assessment Sinus rhythm. sf ED Course: 17:35 Patient arrived in ED. ag5 18:16 Triage completed. iw 20:03 Rustam Eden PA is PHCP. cp 20:03 Darion Anthony MD is Attending Physician. cp 20:04 Pedro Luis Deal, EBONIE is Primary Nurse. sf 20:30 Patient has correct armband on for positive identification. Placed in gown. Bed in low sf position. Call light in reach. Side rails up X2. patient monitor on. Pulse ox on. NIBP on. Door closed. Noise minimized. Lights dimmed. Warm blanket given. Verbal reassurance given. 20:31 XRAY Chest (1 view) Sent. sf 20:38 XRAY Chest (1 view) In Process Unspecified. EDMS 20:40 Urine collected: clean catch specimen, clear. sf 20:45 Initial lab(s) drawn, by az, sent to lab. Inserted saline lock: 20 gauge in left sf antecubital area, using aseptic technique. Blood collected. 21:12 Basic Metabolic Panel Sent. sf 22:44 IV discontinued, intact, bleeding controlled, No redness/swelling at site. Pressure sf dressing applied. 22:45 No provider procedures requiring assistance completed. sf Administered Medications: 21:06 Drug: Phenergan 12.5 mg Route: IVP; Site: left antecubital; sf 22:38 Follow up: Response: No adverse reaction sf 21:06 Drug: Pepcid 20 mg Route: IVP; Site: left antecubital; sf 22:38 Follow up: Response: No adverse reaction sf 21:06 Drug: NS 0.9% 1000 ml Route: IV; Rate: 1 bolus; Site: left antecubital; sf 22:38 Follow up: IV Status: Completed infusion; IV Intake: 1000ml sf 22:30 Drug: Potassium Effervescent Tablet 50 mEq Route: PO; sf 22:38 Follow up: Response: Medication administered at discharge. sf 22:30 Drug: Tylenol 1000 mg Route: PO; sf 22:38 Follow up: Response: Medication administered at discharge. sf Intake: 22:38 IV: 1000ml; Total: 1000ml. sf Outcome: 21:44 Discharge ordered by MD. cp 22:45 Discharged to home ambulatory. sf 22:45 Condition: stable 22:45 Discharge instructions given to patient, Instructed on discharge instructions, follow up and referral plans. medication usage, Demonstrated understanding of instructions, follow-up care, medications, Prescriptions given X 1. 22:45 Patient left the ED. sf Addendum: 06/12/2020 16:38 Addendum: Culture Results: Positive urine culture. Patient was not prescribed a a5 antibiotics at discharge. Report given to SAMIRA for further evaluation and then to autism motor specialist for follow up with patient. Prescription called-in to pharmacy of choice. to [facility] in [place], [place]. Called-in Bactrim DS PO BID x 10 days per Michael Whitt NP. Signatures: Dispatcher [employer] EDMS Clara Black, RN RN Laurita Rothman, RN RN aa5 Rustam Eden PA PA cp Bryson, James, RN RN jb4 Evelyne Bellamy ag5 Pedro Luis Deal RN RN sf
--- NOTE | 2020-06-09 21:46 | EDPHYS ---
Physician Documentation [facility] Name: Snow Argueta Age: 34 yrs Sex: Female : 1985 Arrival Date: 06/09/2020 Time: 17:35 Bed 25 Private MD: ED Physician Darion Anthony HPI: 06/09 20:20 This 34 yrs old Female presents to ER via Ambulatory with complaints of cp COVID+, Nausea/Vomiting/Diarrhea, Weakness. 20:20 The patient presents to the emergency department with nausea, that is moderate, cp vomiting, that is intermittent, diarrhea, that is intermittent. 20:20 Onset: The symptoms/episode began/occurred today. Possible causes: Diagnosed with cp COVID-19 last week while hospitalized at [facility] for weakness and low potassium. Associated signs and symptoms: Pertinent positives: weakness, right low back pain, Pertinent negatives: constipation, dysuria, fever. Historical: - Allergies: 18:16 Cephalexin; iw 18:16 Gadavist; iw 18:16 Latex, Natural Rubber; iw 18:16 Zofran; iw - Home Meds: 18:16 Vyvanse oral oral [Active]; Trokendi XR oral oral [Active]; Pepcid Oral [Active]; iw - PMHx: 18:16 ADD/ADHD; Blood Clot on R arm; Endometrosis; epilepsy; GERD; Leukemia; Pancreatitis; iw - PSHx: 18:16 Cholecystectomy; Appendectomy; iw ROS: 20:30 Constitutional: Negative for body aches, chills, fever. cp 20:30 Eyes: Negative for injury, pain, redness, and discharge. cp 20:30 Cardiovascular: Positive for palpitations, Negative for chest pain, edema. 20:30 Respiratory: Positive for cough, with no reported sputum, Negative for shortness of breath, wheezing. 20:30 Abdomen/GI: Positive for nausea, vomiting, and diarrhea, Negative for constipation. 20:30 Back: Positive for flank pain, on the right. 20:30 : Negative for urinary symptoms. 20:30 Neuro: Positive for headache, weakness, Negative for altered mental status, syncope. 20:30 All other systems are negative. Exam: 19:50 ECG was reviewed by the Attending Physician. cp 20:25 Constitutional: The patient appears in no acute distress, alert, awake, cp non-diaphoretic, non-toxic, well developed, well nourished. 20:25 Head/Face: Normocephalic, atraumatic. cp 20:25 Eyes: Periorbital structures: appear normal, Pupils: equal, round, and reactive to light and accomodation, Extraocular movements: intact throughout, Conjunctiva: normal, no exudate, no injection, Sclera: no appreciated abnormality, Lids and lashes: appear normal, bilaterally. 20:25 ENT: External ear(s): are unremarkable, Nose: is normal, Mouth: Lips: moist, Oral mucosa: moist, Posterior pharynx: Airway: no evidence of obstruction, patent. 20:25 Neck: ROM/movement: is normal, is supple, without pain, no range of motions limitations. 20:25 Chest/axilla: Inspection: normal, Palpation: is normal, no crepitus, no tenderness. 20:25 Cardiovascular: Rate: normal, Rhythm: regular, Edema: is not appreciated, JVD: is not appreciated. 20:25 Respiratory: the patient does not display signs of respiratory distress, Respirations: normal, no use of accessory muscles, no retractions, labored breathing, is not present, Breath sounds: are clear throughout, no decreased breath sounds, no stridor, no wheezing. 20:25 Abdomen/GI: Inspection: abdomen appears normal, Bowel sounds: active, all quadrants, Palpation: abdomen is soft and non-tender, in all quadrants, rebound tenderness, is not appreciated, voluntary guarding, is not appreciated, involuntary guarding, is not appreciated. 20:25 Back: pain, that is very mild, of the right mid back, ROM is normal. 20:25 Neuro: Orientation: to person, place \T\ time. Mentation: is normal, Motor: moves all fours, strength is normal. Vital Signs: 18:13 BP 126 / 91; Pulse 85; Resp 16; Temp 98.7; Pulse Ox 100% on R/A; Weight 95.25 kg; iw Height 5 ft. 6 in. (167.64 cm); 19:36 BP 139 / 100; Pulse 89; Resp 18; Temp 97.6(TE); Pulse Ox 99% on R/A; jb4 20:39 BP 118 / 81; Pulse 84; Resp 16; Pulse Ox 100% ; sf 21:00 BP 124 / 86; Pulse 88; Resp 16; Pulse Ox 100% ; sf 22:00 BP 117 / 73; Pulse 64; Resp 16; Pulse Ox 99% ; sf 22:30 BP 107 / 61; Pulse 96; Resp 16; Pulse Ox 99% ; Pain 8/10; sf 18:13 Body Mass Index 33.89 (95.25 kg, 167.64 cm) iw MDM: 20:17 Patient medically screened. cp 21:00 Differential diagnosis: gastritis, viral gastroenteritis, gastroenteritis, electrolyte cp abnormality, cardiac arrythmia, dehydration. 21:43 Data reviewed: vital signs, nurses notes, lab test result(s), EKG, radiologic studies, cp plain films. 21:43 Test interpretation: by ED physician or midlevel provider: ECG, plain radiologic cp studies. Counseling: I had a detailed discussion with the patient and/or guardian regarding: the historical points, exam findings, and any diagnostic results supporting the discharge/admit diagnosis, lab results, radiology results, to return to the emergency department if symptoms worsen or persist or if there are any questions or concerns that arise at home. Response to treatment: patient is well hydrated. VSS. Nausea markedly improved. No vomiting observed while monitoring patient. Will discharge to home for continued monitoring. 06/09 20:17 Order name: Basic Metabolic Panel cp 06/09 20: Order name: CBC with Diff; Complete Time: : cp 06/09 21:22 Interpretation: Normal except: WBC 8.40; PLT 240. cp 06/09 20:17 Order name: Hepatic Function; Complete Time: : cp 06/09 20:17 Order name: Lipase; Complete Time: 21:22 cp 06/09 20:17 Order name: Urine Microscopic Only; Complete Time: 21:22 cp 06/09 21:22 Interpretation: Normal except: UBACT >50; SQEPI 5-10; AMORPH 2+. cp 06/09 20:17 Order name: Magnesium; Complete Time: 21:22 cp 06/09 20: Order name: XRAY Chest (1 view); Complete Time: 21:22 cp 06/09 20:17 Order name: Basic Metabolic Panel; Complete Time: 21:22 EDMS 06/09 21:23 Interpretation: Normal except: K 3.2; CL 110; GFR 85; CA 8.3. cp 06/09 21:02 Order name: Urine --Ancillary (enter results) tt3 06/09 21:02 Order name: Urine Dipstick--Ancillary (enter results) tt3 06/09 21:21 Order name: Urine Culture EDCO 06/09 20:17 Order name: IV Saline Lock; Complete Time: 20:51 cp 06/09 20:17 Order name: Labs collected and sent; Complete Time: 20:51 cp 06/09 20:17 Order name: Urine Dipstick-Ancillary (obtain specimen); Complete Time: 20:51 cp 06/09 20:17 Order name: Urine Test (obtain specimen); Complete Time: 20:51 cp 06/09 20:17 Order name: EKG; Complete Time: 20:18 cp 06/09 20:17 Order name: EKG - Nurse/Tech; Complete Time: 20:31 cp EC:50 Rate is 83 beats/min. Rhythm is regular. ME interval is normal. QRS interval is normal. cp QT interval is normal. T waves are Inverted in lead aVR. Interpreted by me. Reviewed by me. Administered Medications: 21:06 Drug: Phenergan 12.5 mg Route: IVP; Site: left antecubital; sf 22:38 Follow up: Response: No adverse reaction sf 21:06 Drug: Pepcid 20 mg Route: IVP; Site: left antecubital; sf 22:38 Follow up: Response: No adverse reaction sf 21:06 Drug: NS 0.9% 1000 ml Route: IV; Rate: 1 bolus; Site: left antecubital; sf 22:38 Follow up: IV Status: Completed infusion; IV Intake: 1000ml sf 22:30 Drug: Potassium Effervescent Tablet 50 mEq Route: PO; sf 22:38 Follow up: Response: Medication administered at discharge. sf 22:30 Drug: Tylenol 1000 mg Route: PO; sf 22:38 Follow up: Response: Medication administered at discharge. sf Disposition: 06/10 04:15 Co-signature as Attending Physician, Darion Anthony MD. [email or web address] Disposition: 06/09/20 21:44 Discharged to Home. Impression: Nausea and vomiting, Diarrhea, unspecified, Coronavirus infection, unspecified. - Condition is Stable. - Discharge Instructions: Diarrhea, Adult, Nausea and Vomiting, Adult, Hypokalemia, COVID-19. - Prescriptions for promethazine 25 mg Oral Tablet - take 1 tablet by ORAL route every 6 hours As needed; 20 tablet. - Medication Reconciliation Form, Thank You Letter, Antibiotic Education, Prescription Opioid Use form. - Follow up: Private Physician; When: 2 - 3 days; Reason: Worsening of condition. - Problem is new. - Symptoms have improved. Signatures: Dispatcher [employer] EDClara Deleon RN RN iw Rustam Eden PA PA cp Darion Anthony MD MD 7 Pedro Luis Deal RN RN sf Corrections: (The following items were deleted from the chart) 06/09 21:23 21:23 Normal except: K 3.2; CL 110; GFR 85. cp cp 22:45 21:44 06/09/2020 21:44 Discharged to Home. Impression: Nausea and vomiting; Diarrhea, sf unspecified; Coronavirus infection, unspecified. Condition is Stable. Forms are Medication Reconciliation Form, Thank You Letter, Antibiotic Education, Prescription Opioid Use. Follow up: Private Physician; When: 2 - 3 days; Reason: Worsening of condition. Problem is new. Symptoms have improved. cp 06/10 14:21 06/09 20:20 Associated signs and symptoms: Pertinent positives: weakness, , cp cp
[2020-06-09 22:19] LABS: Urine Blood NEGATIVE (NEG); Urine Glucose NEGATIVE (NEG); Urine Protein NEGATIVE (NEG); Urine Specific Gravity >1.030 (1.005-1.030)
[2020-06-09] MEDS ORDERED: ACETAMINOPHEN 500 MG TAB ONE (22:37)
[2020-06-09] MEDS ORDERED: POTASSIUM 25 MEQ EFFERV TAB ONE (22:37)
[2020-06-09 23:11] VITALS: TEMP 97.6
[2020-06-09 23:15] VITALS: O2SAT 99
[2020-06-09 23:16] VITALS: BP 107/61
== END 2020-06-09 22:45 | disposition home or self-care (01) ==
LOC: ER 17:33
DX: U07.1 COVID-19 (principal); R19.7 Diarrhea, unspecified; R11.2 Nausea with vomiting, unspecified
CPT/HCPCS: 96361; 87088; 85025; 87086; 80048; 36415; 83735; 81025; 80076; 87077; 87186; 83690; 71045; 96375; 96374; 99284; J2550; J7030; 81003; 81015

== ENCOUNTER 2020-06-14 17:59 | Emergency (ER) | payer OTHER ==
--- OUTSIDE RECORDS SUMMARY | 2020-06-14 18:06 | XMS REPORT | Continuity of Care Document ---
:1985 Author Organization [facility] t Address [address] [place] [id number] Care Team Providers Name Role Phone Yari HAMILTON Primary Care Physician Yamil Mane MD Attending Clinician Anival [facility] Attending Clinician Unavailable Lyndsay HAMILTON Attending Clinician Nasreen HAMILTON Attending Clinician Ashok Tsai MD Attending Clinician Marck Chung Attending Clinician Jae Bull MD Attending Clinician Marichuy HAMILTON Attending Clinician Toni Maldonado MD Attending Clinician Barber Attending Clinician Unavailable Jnaice Guevara MD Attending Clinician Edwin HAMILTON Attending Clinician Varsha HAMILTON, [facility] Attending Clinician Ricky HOBSON Attending Clinician Unavailable NASREEN Admitting Clinician Unavailable MARICHUY Admitting Clinician Unavailable EDWIN Admitting Clinician Unavailable Payers Payer Name Policy Type Policy Effective Date Expiration Date Sour ce Number CIGNACIGNA OPEN [id number] 2020 [place] ACCESS/NETWORKxx 00:00:00 Methodis t [id number] Problems Condition Condition Condition Status Onset Resolution Last Treating Co mments Source Name Details Category Date Date Treatment Clinician Date Weakness Weakness Disease Active [place] of right of right 2-14 Method i arm arm 00:00: st 00 COVID-19 COVID-19 Disease Active [place] virus virus 2-14 Methodi detected detected 00:00: st 00 Lower Lower Disease Active 2019-04 [place] extremity extremity 0-28 Meth tanvi weakness weakness 00:00: st 00 Debility Debility Disease Active 2019-04 [place] 0-26 Methodi 00:00: st 00 Weakness Weakness Disease Active 2019-04 [place] 0-24 Methodi 00:00: st 00 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 [place] al al 0-24 Methodi dysfunctio dysfunctio 00:00: st n n 00 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 0-15 Method i 00:00: st [...] Active 2020-06-03 M emoria (disorder) 01:44:50 l [place] Hemiplegia (disorder) Active Problem 06/03/2020 [facility] Visual Problem Active 2020-06-03 Memor ia disturbanc 01:44:50 l e Visual [place] (disorder) disturbanc e (disorder) Active Problem 06/03/2020 [facility] Disorienta Problem Active 2020-06-03 M emoria leon 01:44:50 l (finding) [place] Disorienta leon (finding) Active Problem 06/03/2020 [facility] [...] to drug Latex Propensi Active Hives 2019-04 [place] ty to 0-16 Methodi adverse 00:00: st reaction 00 s to drug Ondanset Propensi Active Headache 2019-04 [place] mikey Hcl ty to 0-16 Methodi adverse 00:00: st reaction 00 s to drug Gadobutr Propensi Active Other (See 2019-04 Vomiting [facility] ty to Comments) 0-15 Method i [...] cephalex Active Memori a in in l [place] Latex Latex Active [facility] matt [place] Gadavist Gadavist Active Memori a l [place] Cephalex Adverse [facility] Reaction Available [facility] Zofran Adverse Active Info Not [facility] Reaction Available [facility] Family History Family Member Diagnosis Comments Start Date Stop Date Source Paternal grandfather Kidney cancer [facility] Social History Social Habit Start Date Stop Date Quantity Comments Source Sex Assigned At [facility] ethodist Exposure to Yes [place] Metho dist SARS-CoV-2 (event) Tobacco use and 2020-06-10 2020-06-10 Never used [facility] ethodist exposure 00:00:00 00:00:00 Alcohol intake 2020-06-10 2020-06-10 Current drinker [place] 00:00:00 00:00:00 of alcohol (finding) Alcohol Comment 2020-02-03 2020-02-03 occ drinker [place] 00:00:00 00:00:00 Social History 2018-10-01 2018-10-01 [facility] 13:53:53 13:53:53 Smoking Status Start Date Stop Date Source Never smoker [place] Methodis t Medications Ordered Filled Start Stop Current Ordering Indication Dosage Frequency Signature Comments Components Source Medication Medication Date Date Medication? Clinician (SIG) Name Name acetaminoph Yes 500mg Q6H Take 500 [place] (Tylenol 2-20 mg by Methodi Extra 12:53: mouth st Strength) 53 every 6 500 MG (six) tablet hours as needed for mild pain. topiramate Yes 100mg QD Take 100 [place] (Trokendi 2-20 mg by Methodi XR) 100 mg 12:53: mouth st capsule,ext 53 nightly. ended release 24hr lisdexamfet Yes 50mg QD Take 50 mg [place]kins amine 2-20 by mouth Methodi (Vyvanse) 12:53: every st 50 MG 53 morning. capsule famotidine Yes 20mg QD Take 20 mg [place] (PEPCID) 20 2-20 by mouth Meth tanvi MG tablet 12:53: daily. st 53 montelukast Yes 10mg QD Take 10 mg [place] (SINGULAIR) 2-20 by mouth Meth tanvi 10 mg 12:53: daily. 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 metoclopram 2019-04 No 5mg [id number] Take 1 [place] dung 0-28 11- [id number] tablet (5 Met hodi (Reglan) 5 00:00: [...] it last week - unknown reason); [facility] last [facility] 08/29/20, quantity: 30, day supply: 30) topiramate 2019-04- No 1{capsu QD Take 1 H oufrances (Trokendi 0-20 10-20 le} capsule by Met hodi XR) 100 mg 18:40: 00:[address] capsule,ext 28 :00 daily. ended (Patient release stopped 24hr taking this medication in the summer because she ran out of it) OXCARBAZEPI 2019-04- No (Patient H oufrances NE ORAL 0-20 10-20 stopped Methodi 18:40: [...] - per patient) metoclopram 2019-04- No 5mg [id number] Take 1 [place] dung 0-20 - [id number] tablet (5 Met hodi (Reglan) 5 00:00: 00:00 3D mg total) s t MG tablet 00 :00 by mouth 3 (three) times a day as needed (nausea, vomiting) for up to 5 days. Vyvanse Vyvanse Yes Na Savage [address] [facility] 8-25 [facility] the [facility] - 00:00: morning Memoria 00 l Outpati ent Clinics oxcarbazepi Yes 300 mg = 1 Memoria ne 300 MG 9-06 tab, PO, l Oral Tablet 16:04: BID, # 180 [place] [Trileptal] 19 tab, 3 Refill(s), Pharmacy: [facility] #[id number] 24 HR 2018- Yes 100 mg = 1 Memori a topiramate 9-06 cap, PO, l 100 MG 16:04: Daily, # [place] Extended 10 90 cap, 3 Release Refill(s), Capsule Pharmacy: [[facility]] [id number] 24 HR 2018- No 100 mg = 1 Memori a topiramate 9-04 cap, PO, l 100 MG 18:31: Daily, X Ricardo Extended 05 30 day, # Release 30 cap, 3 Capsule Refill(s), [Trokendi] Pharmacy: [facility] oxcarbazepi No 300 mg = 1 Memoria ne 300 MG 9-04 tab, PO, l Oral Tablet 18:31: BID, X 30 H [place] [Trileptal] 02 day, # 60 tab, 3 Refill(s), Pharmacy: [facility] lisdexamfet Yes 30 mg = 1 M emoria amine 8-09 cap, PO, l dimesylate 16:20: QAM, # 30 He rmann 30 MG Oral 00 cap, 0 Capsule Refill(s) [Vyvanse] omeprazole Yes 20 mg = 1 Me moria 20 mg oral 7-17 cap, PO, l delayed 00:27: Daily, # Murray n release 00 30 cap, 2 capsule Refill(s), Pharmacy: [facility] oxcarbazepi Yes 300 mg = 1 Memoria ne 300 MG 7-03 tab, PO, l Oral Tablet 18:01: BID, # 60 H [place] [Trileptal] 00 tab, 2 Refill(s), Pharmacy: [facility] 24 HR Yes 100 mg = 1 Memori a topiramate 6-28 cap, PO, l 100 MG 14:50: Daily, # [place] Extended 00 30 cap, 3 Release Refill(s), Capsule Pharmacy: [[facility]] [facility] topiramate Yes 25 mg = 1 Me moria 25 MG Oral 6-14 tab, PO, l Tablet 23:33: BID, # 60 Murray n [Topamax] 00 tab, 2 Refill(s), Pharmacy: [facility] Phenytoin Yes 200 mg = 2 Me moria sodium 100 6-13 cap, PO, l MG Extended 13:57: BID, # 120 [place] Release 00 cap, 3 Capsule Refill(s), [Dilantin] Pharmacy: [facility] Alprazolam Yes 0.5 mg = 1 M emoria 0.5 MG Oral 6-13 tab, PO, l Tablet 13:28: TID, 0 Ricardo [Xanax] 00 Refill(s) Zyrtec Yes Daily, 0 Memoria 6-13 Refill(s) l 13:28: Ricardo 00 Phenytoin 2018-0 No 100 mg = 1 Me moria sodium 100 6-13 cap, PO, l MG Extended 13:26: TID, # 90 H ermann Release 00 cap, 1 Capsule Refill(s) [Dilantin] VYVANSE 40 2016-0 Yes 1{tbl} Take 1 MD mg capsule 9-19 tablet by Andrea rso 00:00: mouth n 00 daily. Immunizations Ordered Immunization Filled Immunization Date Status Commen ts Source Name Name Bamrebeccaivimab 2020-06-10 Completed [place] 00:00:00 [place] FLUCELVAX QUAD PF 2020-02-06 Completed [place] 00:00:00 [place] Influenza Split Completed MD [place] on 00:00:00 Vital Signs Vital Name Observation Time Observation Value Comments Source Systolic blood 2020-06-10 14:17:19 128 mm[Hg] Yurito n [place] pressure Diastolic blood 2020-06-10 14:17:19 68 mm[Hg] Kaylen on [place] pressure Heart rate 2020-06-10 14:17:19 88 /min [place] Body temperature 2020-06-10 14:17:19 36.11 Staci [place] Respiratory rate 2020-06-10 14:17:19 16 /min [place] Oxygen saturation in 2020-06-10 14:17:19 98 /min [place] Arterial blood by Pulse oximetry Body height 2020-06-10 12:48:00 167.6 cm [place] Body weight 2020-06-10 12:48:00 94.802 kg [place] BMI 2020-06-10 12:48:00 33.73 kg/m2 [place] Systolic (mm Hg) 2020-04-19 20:08:00 Unruly rial [place]ardo Diastolic (mm Hg) 2020-04-19 20:08:[address] [facility] orial Ricardo Heart Rate 2020-04-19 20:08:00 [facility] Respitory Rate 2020-04-19 20:08:00 Avery al [place] Height 2020-04-19 20:08:00 167.64 cm [facility] Weight 2020-04-19 20:08:00 [facility] [place] BMI Calculated 2020-04-19 20:08:00 Memori al [place] Systolic (mm Hg) 2020-03-29 20:19:00 Unruly rial Ricardo Diastolic (mm Hg) 2020-03-29 20:19:00 Mem orial Ricardo Heart Rate 2020-03-29 20:19:00 Memorial Ricardo Respitory Rate 2020-03-29 20:19:00 Memori al Ricardo Height 2020-03-29 20:19:00 167.64 cm [facility] [place] Weight 2020-03-29 20:19:00 [facility] Ricardo BMI Calculated 2020-03-29 20:19:00 Memori al [place]ardo Systolic (mm Hg) 2020-02-29 17:31:00 Unruly rial [place] Diastolic (mm Hg) 2020-02-29 17:31:00 Mem orial [place] Heart Rate 2020-02-29 17:31:00 [facility] [place] Respitory Rate 2020-02-29 17:31:00 Memori al Ricardo Height 2020-02-29 17:31:00 167.64 cm [facility] [place] Weight 2020-02-29 17:31:00 [facility] [place] BMI Calculated 2020-02-29 17:31:00 Memori al [place] Systolic (mm Hg) 2018-12-23 18:03:00 Unruly rial [place] Diastolic (mm Hg) 2018-12-23 18:03:00 Mem orial Ricardo Heart Rate 2018-12-23 18:03:00 [facility] [place] Respitory Rate 2018-12-23 18:03:00 Memori al Ricardo Height 2018-12-23 18:03:00 167.64 cm [facility] [place] Weight 2018-12-23 18:03:00 [facility] [place]ardo BMI Calculated 2018-12-23 18:03:00 Memori al [place] BMI Calculated 2018-11-27 15:59:00 Memori al [place] Weight 2018-11-27 15:59:00 [facility] [place] Height 2018-11-27 15:59:00 167.64 cm Memorial Ricardo Heart Rate 2018-11-27 15:59:00 [facility] [place] Respitory Rate 2018-11-27 15:59:00 Memori al Ricardo Systolic (mm Hg) 2018-11-27 15:59:00 Unruly rial Ricardo Diastolic (mm Hg) 2018-11-27 15:59:00 Mem orial Ricardo Respitory Rate 2018-10-16 14:19:00 Memori al Ricardo Systolic (mm Hg) 2018-10-16 14:19:00 Unruly rial [place] Diastolic (mm Hg) 2018-10-16 14:19:00 Mem orial [place] BMI Calculated 2018-10-16 14:19:00 Memori al Ricardo Weight 2018-10-16 14:19:00 Memorial Ricardo Height 2018-10-16 14:19:00 167.64 cm Memorial Ricardo Heart Rate 2018-10-16 14:19:00 [facility] [place] BMI Calculated 2018-10-01 13:18:00 Memori al Ricardo Weight 2018-10-01 13:18:00 [facility] [place]ardo Height 2018-10-01 13:18:00 167.64 cm Memorial Ricardo Respitory Rate 2018-10-01 13:18:00 Memori al [place] Heart Rate 2018-10-01 13:18:00 [facility] [place] Systolic (mm Hg) 2018-10-01 13:18:00 Unruly rial Ricardo Diastolic (mm Hg) 2018-10-01 13:18:00 Mem orial [place] Procedures Procedure Date / Time Performing Clinician Source Performed MRI THORACIC SPINE W 2020-06-06 16:01:00 Caleb Kent [place] CONTRAST MRI CERVICAL SPINE W 2020-06-06 16:01:00 Caleb Kent [place] CONTRAST MRI BRAIN W WO CONTRAST 2020-06-06 16:00:00 Caleb Kent [facility] C-REACTIVE PROTEIN 2020-06-06 12:12:00 Jen Tsai [place] Natvarlal INTERLEUKIN 6 2020-06-06 12:12:00 Jen Tsai [facility] Natvarlal FERRITIN LEVEL 2020-06-06 12:12:00 Jen Tsai [facility] Natvarlal D-DIMER 2020-06-06 12:12:00 Jen Tsai [facility] Natvarlal LDH 2020-06-06 12:12:00 Jen Tsai [facility] Natvarlal FIBRINOGEN 2020-06-06 12:12:00 Jen Tsai [facility] Natvarlal CT CHEST WO CONTRAST 2020-06-06 12:03:12 Eloise Dorsey on [place] URINE CULTURE 2020-06-04 07:58:00 Kanchan Downey [place] Meth odist URINALYSIS SCREEN AND 2020-06-04 07:58:00 Eloise Dorsey [place] MICROSCOPY, WITH REFLEX TO CULTURE HCG QUALITATIVE, URINE 2020-06-04 07:58:00 Eloise Dorsey SCREEN COVID-19 QUALITATIVE PCR 2020-06-04 07:45:00 Eloise Dorsey HC COMPLETE BLD COUNT 2020-06-04 02:45:00 Jose Gomez W/AUTO DIFF Imarendenewe COMPREHENSIVE METABOLIC 2020-06-04 01:56:00 Jose Gomez [place] PANEL Imarendenewe ESTIMATED GFR 2020-06-04 01:56:00 Jose Gomez ethodist Imarendenejose e OCT, OPTIC NERVE - OU - 2020-03-08 13:34:42 Chavo Bull [place] BOTH EYES AUTOMATED VISUAL FIELD, 2020-03-08 13:34:38 Chavo Bull [place] EXTENDED - OU - BOTH EYES DURABLE MEDICAL EQUIPMENT 2020-02-16 10:31:42 Blessing Maldonado [place] Toni BASIC METABOLIC PANEL 2020-02-16 05:10:00 Sharlene Julian on [place] Chiazocarroll ESTIMATED GFR 2020-02-16 05:10:00 Erica Blessing Tompkins In thodist Toni DURABLE MEDICAL EQUIPMENT 2020-02-15 15:56:49 Caleb Roque [place] EMG 2020-02-15 12:46:48 Fior Batista Me thodist Fior HC COMPLETE BLD COUNT 2020-02-15 05:00:00 Eber [...] VENIPUNC NEED PHYS 2020-02-08 10:39:11 Familia Colon ethodi SKILL,DX OR RX MISCELLANEOUS REFERRAL 2020-02-08 09:00:00 Evens Horne TEST Marck US DUPLEX VENOUS UPPER 2020-02-07 17:26:50 Michael Maddox EXTREMITY RIGHT VENIPUNC NEED PHYS 2020-02-07 09:18:07 Javier Kolb SKILL,DX OR RX HC COMPLETE BLD COUNT 2020-02-07 05:00:00 Michael Maddox W/AUTO DIFF BASIC METABOLIC PANEL 2020-02-07 05:00:00 Michael Maddox ESTIMATED GFR 2020-02-07 05:00:00 Michael MaddoxMorris Turner Worley HC COMPLETE BLD COUNT 2020-02-06 06:18:00 Michael Maddox LevyHenrique Reynoso mane Whatleyist W/AUTO DIFF BASIC METABOLIC PANEL 2020-02-06 06:18:00 Michael Maddox LevyHenrique Reynoso mane Worley ESTIMATED GFR 2020-02-06 06:18:00 Michael Maddox LevyMattyMorris Worley XR CHEST 1 VW PORTABLE 2020-02-05 21:27:51 Michael Maddox Turner [place] ECG 12-LEAD 2020-02-05 21:12:53 Michael Maddox Turner [place] HC COMPLETE BLD COUNT 2020-02-05 06:00:00 Michael Maddox LevyHenrique Reynoso mane [place]ley W/AUTO DIFF BASIC METABOLIC PANEL 2020-02-05 04:00:00 Michael Maddox Andres [place] ESTIMATED GFR 2020-02-05 04:00:00 Varsha Michael JonasMorrisandres Worley IGG SYNTHESIS RATE STUDY 2020-02-04 11:00:00 Michael MaddoxBaldomero reynoso Turner [place] FUNGUS CULTURE 2020-02-04 10:56:00 Andressa Givens Me thodist AFB CULTURE 2020-02-04 10:56:00 Andressa Givens Me thodist IR LUMBAR PUNCTURE 2020-02-04 10:00:00 Andressa Givens CSF CULTURE 2020-02-04 09:56:00 Andressa Givens Me thodist CRYPTOCOCCAL ANTIGEN 2020-02-04 09:56:00 Andressa Givens on [place] SCREEN GRAM STAIN 2020-02-04 09:56:00 Kim Guevara CSF CELL COUNT WITH 2020-02-04 09:56:00 Andressa Givens n [place] DIFFERENTIAL GLUCOSE LEVEL, CSF 2020-02-04 09:56:00 Andressa Givens IGG SYNTHESIS RATE STUDY 2020-02-04 09:56:00 Andressa Givens [place] VDRL, CSF SCREEN 2020-02-04 09:56:00 Andressa Givens [...] BLD COUNT 2020-02-04 01:40:00 Aldo Pineda on [place] W/AUTO DIFF BASIC METABOLIC PANEL 2020-02-04 01:40:00 Aldo Pineda on [place] ESTIMATED GFR 2020-02-04 01:40:00 Kim Guevara URINE [...] Manan Hernández C-REACTIVE PROTEIN 2020-02-03 18:25:00 Manan Hernándezist HOMOCYSTINE, PLASMA 2020-02-03 18:25:00 Manan Hernández CORTISOL LEVEL, RANDOM 2020-02-03 18:25:00 Manan Hernández SEDIMENTATION RATE 2020-02-03 18:25:00 Manan Hernándezist RHEUMATOID FACTOR 2020-02-03 18:25:00 Manan Hernández THYROID STIMULATING 2020-02-03 18:25:00 Manan Hernández HORMONE T4, FREE 2020-02-03 18:25:00 Manan Hernández T3 2020-02-03 18:25:00 Manan Hernández SYPHILIS TOTAL ANTIBODY 2020-02-03 18:25:00 Manan Hernández HIV AG/AB COMBINATION 2020-02-03 18:25:00 Maann Hernández [place] VITAMIN D 25 HYDROXY LEVEL 2020-02-03 18:25:00 Manan Hernández B. BURGDORFERI ABS TOTAL, 2020-02-03 18:25:00 Manan Hernández SERUM CT HEAD WO CONTRAST 2020-02-03 16:14:55 Manan Hernández HCG QUANTITATIVE, SERUM 2020-02-03 14:27:00 Manan Hernández Tubal ligation [facility] Plan of Care Planned Activity Planned Date Details Comments Source Future Scheduled 2023-02-02 Screening for Turner Me thodist Test 00:00:00 malignant neoplasm of cervix (procedure) [code = 146907295] Future Scheduled 2004 Hepatitis C Turnre Met hodist Test 00:00:00 screening (procedure) [code = 427425879] Future Scheduled 2002 COVID-19 VACCINE (1 [place] Test 00:00:00 of 2) [code = COVID-19 VACCINE (1 of 2)] Encounters Start End Encounter Admission Attending Care Care Encounter Source Date/Time Date/Time Type Type Clinicians Facility Department ID 2020-06-12 2020-06-12 Outpatient [facility] [id number] 00:[facility] 2020-06-10 2020-06-10 Outpatient [facility] [id number] [place] 00:00:00 00:00:00 SHANT Bateman [facility] 2020-06-09 2020-06-09 Outpatient [facility] [id number] [facility] [facility] 00[facility]00[facility]00 00[facility]00[facility] 2020-06-09 2020-06-09 Outpatient [facility] [id number] [facility] 00[facility]00[facility]00 00[facility]00[facility] 2020-06-04 2020-06-07 [id number] [place] 00:00:00 00:00:[address] 2020-05-31 2020-05-31 Outpatient Kremaxime, MHMISCHER MHMISCHER [id number] 11:30:00 23:59:59 David 12 [place] 2020-05-31 2020-05-31 Outpatient Juliet, MHMISCHER MHMISCHER [id number] 15:30:00 15:30:00 David 11 Marck 2020-04-19 2020-04-19 Outpatient Juliet, MHMISCHER MHMISCHER [id number] 14:00:00 23:59:59 David 10 Marck 2020-04-18 2020-04-18 Outpatient [facility] [id number] [facility] 2020-04-11 2020-04-11 Outpatient Juliet, MHMISCHER MHMISCHER [id number] 10:00:00 23:59:59 David 09 [place] 2020-03-29 2020-03-29 Outpatient Juliet, MHMISCHER MHMISCHER [id number] 14:00:00 23:59:59 David 08 [facility] 2020-03-22 2020-03-22 Outpatient [facility] [id number] [facility] 2020-03-16 2020-03-16 Outpatient [facility] [id number] [facility] 2020-03-08 2020-03-08 [facility] [id number] [place] 00:00:00 00:00:[address] 2020-03-07 2020-03-07 Outpatient [facility]MLC [facility] [id number] [facility] 2020-02-29 2020-02-29 Outpatient Annettemaxime, MHMISCHER MHMISCHER [id number] 11:15:00 23:59:59 David 07 [facility] 2020-02-21 2020-02-21 Outpatient [facility]LMLC [facility] [id number] [facility] 2020-02-17 2020-02-17 Outpatient [facility]ML[facility] [id number] [facility] 2020-02-12 2020-02-16 Inpatient ERICA [facility] [id number] [place] 00:00:00 00:00:00 BLESSING [address] 2020-02-15 2020-02-15 [id number] 09:15:00 09:15:00 David Natanael Acharya 2020-02-09 2020-02-09 Outpatient [facility] [id number] [facility] 2020-02-03 2020-02-08 Inpatient VARSHA [facility] [id number] [place] 00:00:00 00:00:00 MICHAEL Santacruz [facility] 2020-01-17 2020-01-17 Outpatient [facility]MLC [facility] [id number] [facility] 2019-12-14 2019-12-14 [facility] [id number] [facility] 10:48:00 10:48:00 t [employer] s - [place] [employer] [facility] l Medicine Outpati ent Clinics 2019-11-23 2019-11-23 [facility] [id number] 09:00:00 09:00:00 t [employer] s - Drive [facility] Medicine l Medicine Outpati ent Clinics 2019-11-23 2019-11-23 [facility] [id number] 08:05:00 08:05:00 t [facility] [employer] s [address] [facility] Medicine l Medicine Outpati ent Clinics 2019-10-15 2019-10-15 [facility] [id number] 08:44:00 08:44:00 t [employer] s - Drive [facility] Medicine l Medicine Outpati ent Clinics 2019-09-07 2019-09-07 [facility] [id number] 11:56:00 11:56:00 t [facility] [employer] [facility] Medicine Outpati ent Clinics 2019-08-13 2019-08-13 [facility] [id number] 10:20:00 10:20:00 t [employer] s - [employer] [facility] Medicine Outpati ent Clinics 2019-08-12 2019-08-12 [facility] [id number] 09:49:00 09:49:00 t [employer] s - [employer] [facility] Medicine Outpati ent Clinics 2019-06-15 2019-06-15 [facility] [id number] 15:24:00 15:24:00 t [employer] s - [employer] [facility] Medicine Outpati ent Clinics 2019-06-09 2019-06-09 [facility] [id number] 08:40:00 08:40:00 [facility] [employer] [facility] Medicine Outpati ent Clinics 2019-06-03 2019-06-03 [facility] [id number] 10:52:00 10:52:00 t [employer] s - [employer] [facility] Medicine Outpati ent Clinics 2019-05-28 2019-05-28 [facility] [id number] 16:20:00 16:20:00 t [employer] s - [employer] [facility] Medicine Outpati ent Clinics 2019-05-21 2019-05-22 Outpatient MISCHER MISCHER [id number] 14:44:00 23:59:59 00 2019-04-28 2019-04-28 [id number] 13:00:00 13:00:00 David Acharya 2019-01-01 2019-01-01 [facility] [id number] 15:32:00 15:32:00 t [employer] s - [employer] [facility] Medicine Outpati ent Clinics 2018-12-31 2018-12-31 [facility] [id number] 09:55:00 09:55:[address] Luke s - Drive [facility] Medicine Outpati ent Clinics 2018-12-30 2018-12-30 [facility] [id number] 13:25:00 13:25:[address] Luke s - Drive [facility] Medicine Outpati ent Clinics 2018-12-30 2018-12-30 [facility] [id number] 08:00:00 08:00:[address] Luke s - Drive [facility] Medicine Outpati ent Clinics 2018-12-29 2018-12-29 [facility] [id number] 09:42:00 09:42:00 t [place] [employer] s - Drive [facility] Medicine Outpati ent Clinics 2018-12-23 2018-12-23 Outpatient ASIF Chung MABEL [id number] 13:15:00 23:59:59 David 04 Mar[place] 2018-12-04 2018-12-04 [facility] [id number] 16:20:00 16:20:00 t [place] [employer] Luke s - Drive [facility] Medicine Outpati ent Clinics 2018-11-30 2018-11-30 [facility] [id number] 10:08:00 10:08:00 t Urgent Urgent Care L [facility] Outpati ent Clinics 2018-11-27 2018-11-27 Outpatient ASIF Chung ANITHA [id number] 10:45:00 23:59:59 David 03 [facility] 2018-11-27 2018-11-27 [facility] [id number] 13:00:00 13:00:[address] [employer] s - Drive [facility] Medicine Outpati ent Clinics 2018-10-29 2018-10-29 [facility] [id number] 10:40:00 10:40:[address] [employer] s - Drive [facility] Medicine Outpati ent Clinics 2018-10-16 2018-10-16 Outpatient ASIF Chung [facility] [id number] 09:00:00 23:59:59 David 02 Mar[place] 2018-10-02 2018-10-02 [id number] 15:00:00 23:59:59 David 01 [place] 2018-10-01 2018-10-01 [facility] [id number] 08:15:00 23:59:59 David 00 [place] 2018-09-30 2018-09-30 [facility] [id number] 13:00:00 13:00:00 t [place] [employer] s - [employer]ray [employer] [facility] Medicine Medicine Outpati ent Clinics 2018-08-31 2018-08-31 [facility] [id number] 11:00:00 11:00:00 t [place] Cocodot [employer] s - [employer] [facility] l Medicine Outpati ent Clinics 2018-07-27 2018-07-27 [facility] [id number] 13:54:00 13:54:00 t [place] [employer]of[employer] s - [employer] [facility] Medicine Medicine Outpati ent Clinics 2018-07-23 2018-07-23 [facility] [id number] 08:53:00 08:53:00 t [place] Cocodot [employer] s - [employer] [facility] Medicine Medicine Outpati ent Clinics 2018-07-23 2018-07-23 [facility] [id number] 08:15:00 08:15:00 t [place] Cocodot [employer] s - [employer] [facility] Medicine l Medicine Outpati ent Clinics 2018-06-22 2018-06-22 [facility] [id number] 10:30:00 10:30:00 t [place] Cocodot [employer] s - [employer] [facility] Medicine Medicine Outpati ent Clinics 2018-05-04 2018-05-04 [facility] [id number] 12:00:00 12:00:00 t [place] [employer] s - [employer] [facility] Medicine Outpati ent Clinics 2018-04-02 2018-04-02 [facility] [id number] 09:00:00 09:00:00 t [place] Videoflow s - [employer] [facility] Medicine Outpati ent Clinics Results Test Description Test Time Test Comments Results Result [facility] e Comments MRI Thoracic 2020-05-22 Interface, [place] Spine W Contrast 6 Radiology Results Victor Manuel bridges 17:13:41 Incoming - 06/06/2020 5:16 PM CSTEXAMINATION: [...] or neural foraminal stenosis.[id number] MRI Cervical 2020-05-22 Interface, [place] Spine W Contrast 6 Radiology Results Victor Manuel bridges 17:08:17 Incoming - 06/06/2020 5:11 PM CSTEXAMINATION: [...] identified.[id number] 21H2W MRI Brain W Wo 2020-05-22 Interface, [place] Contrast [address] 16:41:58 Incoming - 06/06/2020 4:45 PM CSTEXAMINATION: MRI BRAIN [...] 13-150 A Lab Interpretation (test code = 78531-7) Abnormal [place] MethodistInterleukin 13:04:33 Test Item Value Reference Range Interpretation Comments Interleukin 6 (test <2.5 0-10.5 This nicole t has not been code = 91076-8) FDA cleared or approved. This test has b een authorized by Jany PEDRAZA under an EUA for use by authorized [...] medical devices under S ection 564(b)(1) of e Act, 21 U.S.C. 360bbb-3(b)(1 ), unless the authorizati on is terminated or r evoked sooner. [place] MethodistC-reactive yojkqms0788-26-65 12:57:24 Test Item Value Reference Range Interpretation Comments CRP (test code = 1988-5) <0.30 0-0.5 [place] CguollnpoQVD4951-19-45 12:57:23 Test Item Value Reference Range Interpretation Comments LDH (test code = 66362-8) 136 U/L 87-225 [place] ZajyokuxnQ-zzwsf8796-74-16 12:47:11 Test Item Value Reference Range Interpretation Comments D-dimer (test code = 0.35 See_Comment Units a re ug/ml Fibrinogen 83073-1) Equivalent Unit .When combined with l ow [...] states, sepsis, and malignancies. [Automated message] The Ikanos stem which generated this result transmitted ref erence range: 0.00 - 0.40 ug/ mL FEU. The reference range was not used to interpret is result as normal/abnormal . [place] CeidrfjdaOmhqurlcwf2581-38-21 12:44:31 Test Item Value Reference Range Interpretation Comments Fibrinogen (test code = 97994-0) 293 mg/dL 200-450 [place] MethodistCT Chest Wo Xiqfdncm0394-57-18 12:08:03Hm Interface, Radiology Results - 06/06/2020 12:11 PM CSTEXAMINATION: CT CHEST [...] findings, this is compatible with mild Covid pneumonia.[facility]-[id number] MethodistCOVID-19 qualitative [id number] 18:32:38 Test Item Value Reference Range Interpretation Comments Interpretation (test Positive results code = 6576783) are indicative of active infection with 2019-nCoV but do not rule out bacterial infection or coinfection with other viruses. The agent detected may not be the definite cause of disease. COVID-19 qualitative Detected Not-Detected A PCR result (test code = 56485-3) COVID-19 qualitative See link below for C ase Number: PCR (test code = PDF Lab Report [id number]) Lab Interpretation Abnormal (test code = 17551-4) [place] MethodistUrinalysis screen and microscopy, with reflex to culture 2020-06-04 12:57:58 Test Item Value Reference Range Interpretation Comments Specimen site (test Clean catch code = 8473962) Color, UA (test code = Yellow 5778-6) Appearance, UA (test Clear code = 5767-9) Specific gravity, UA >1.060 1.001-1.035 H Results double (test code = 5811-5) checked . pH, UA (test code = 6.0 5.0-8.5 5803-2) Protein, UA (test code Negative Negative = 59126-0) Glucose, UA (test code Negative Negative = 81193-8) Ketones, UA (test code Negative Negative = 2514-8) Bilirubin, UA (test Negative Negative code = 5770-3) Blood, UA (test code = Negative Negative 5794-3) Nitrite, UA (test code Negative Negative = 5802-4) Urobilinogen, UA (test <2.0 <2.0 code = 27724-6) Leukocyte esterase, UA Negative Negative (test code [...] (test code = 2 See_Comment [Autom ated 08402-6) message] The sy stem which generated this result transmitted reference range : 0 - 5 /HPF. The reference range was not used to interpret this result as normal/abnormal . Bacteria, UA (test code None seen None seen = 24777-7) Yeast, UA (test code = None seen 29193-4) Yeast with None seen pseudohyphae, UA (test code = 47835-1) Lab Interpretation Abnormal (test code = 80192-3) [place] WorleyUrine cgswipq2034-80-48 12:51:05 Test Item Value Reference Range Interpretation Comments Urine culture (test SEE COMMENT Bacteriu kieran screen code = 5415946) negative. [place] MethodginettehCG qualitative, urine mnamul5202-88-78 12:48:01 Test Item Value Reference Range Interpretation Comments hCG qualitative, Negative Sensitivity of HCG test: urine (test code = 25 mIU/mL 6-3) [place] WorleyComprehensive metabolic vwgxq8340-77-97 03:34:16 Test Item Value Reference Range Interpretation Comments Sodium (test code = 137 See_Comment [Automa leon message] 2951-2) The system whic h generated this result transmit leon reference range : 135 - 148 mEq/L. Th e reference range was not used to interpret this result as normal/abnormal . Potassium (test code = 3.3 See_Comment L [Aut omated message] 2823-3) The system [employer] generated this result transmit leon reference range : 3.5 - 5.0 mEq/L. Th e reference range was not used to interpret this result as normal/abnormal . Chloride (test code = 106 See_Comment [Auto mated message] 0) The system [employer] generated this result transmit leon reference range : 98 - 112 mEq/L. Th e reference range was not used to interpret this result as normal/abnormal . CO2 (test code = 21 See_Comment L [Automated message] 2027-12) The system [employer] generated this result transmit leon reference range : 24 - 31 mEq/L. The reference range was not used to interpret this result as normal/abnormal . Anion gap (test code = 10@ANIO See_Comment [Aut omated message] 04416-7) The system [employer] generated this result transmit leon reference range : 7 - 15 mEq/L. The reference range was not used to interpret this result as normal/abnormal . BUN (test code = 11 mg/dL 6-20 3094-0) Creatinine (test code = 0.86 mg/dL 0.5-0.9 0-0) Glucose (test code = 113 mg/dL 65-99 H 2345-7) Calcium (test code = 8.1 mg/dL 8.3-10.2 L 12165-7) Protein (test code = 6.7 g/dL 6.3-8.3 [...] ALT (test code = 35 U/L 5-50 2-6) Total bilirubin (test 0.3 mg/dL 0-1.2 code = 1975-2) Lab Interpretation Abnormal (test code = 91742-2) [place] MethodistEstimated [id number] 03:34:14 Test Item Value Reference Range Interpretation Comments Estimated GFR (test 88 mL/min/1.73 m2 Hal pulliam Units code = 5488) InterpretationG 1 >=90 Normal or highG2 60-89 Mildly wxccmxbdkG2i 45-59 Mildly to mode rately jiqfbidwjL2s 30-44 Moderately to severely decreasedG4 15-29 Severely decre asedG5 <15 Kidn ey failureThe eGFR was calculated morena dover the Chronic Kidney Disease Epidemiology Co llaboration (CKD-EPI) equat ion. Interpretation is based on recommendations of the National Kidney Foundation-Kidn ey Disease Outcomes Qualit y Initiative (NKF-KDOQI) pub lished in 2013. [place] MethodistCBC with platelet and gtxsvnducaqj5906-93-92 03:08:29 Test Item Value Reference Range Interpretation Comments WBC (test code = 4.53 See_Comment [Automated message] 88862-4) The system [employer] generated this result transmitted ref erence range: 4.50 - 1 1.00 k/uL. The refer ence range was not u sed to interpret this result as normal/abnor mal. RBC (test code = 4.45 m/uL 4.2-5.5 64619-9) HGB (test code = 718-7) 12.6 g/dL 12-16 HCT (test code = 38.5 % 37-47 4544-3) MCV (test code = 787-2) 86.5 fL 82-100 MCH (test code = 785-6) 28.3 pg 27-34 MCHC (test code = 32.7 g/dL 31-37 786-4) RDW - SD (test code = 39.6 fL 37-55 93308-2) MPV (test code = 11.8 fL 8.8-13.2 67960-4) Platelet count (test 194 See_Comment [Autom ated message] code = 08327-7) The system w [facility] generated this result transmitted ref erence range: 150 - 40 0 k/uL. The refer ence range was not u sed to interpret this result as normal/abnor mal. Nucleated RBC (test 0.00 See_Comment [Automa leon message] code = 68182-8) The system [employer] generated this result transmitted ref erence range: /100 WBC . The reference range was not used to int erpret this result as normal/abnormal . Neutrophils (test code 49.9 % 39-69 = 22818-1) Lymphocytes (test code 39.1 % 25-45 = 04516-3) Monocytes (test code = 9.9 % 0-10 83643-6) Eosinophils (test code 0.7 % 0-5 = 73400-6) Basophils (test code = 0.2 % 0-1 73033-4) Immature granulocytes 0.2 % 0-1 "Immat ure (test code = 76508-6) granul ocytes" (promyelocytes, myelocytes, metamyelocytes) [place] MethodistMiscellaneous referral qqgi4610-06-26 10:53:54 Test Item Value Reference Range Interpretation [...] developed and its performancechar acteristics determined by [facility] Pang in a mannerconsisten t with CLIA requirements. T his test has not beencleared or approved by the U.S. Food and DrugAdministrat ion. + +: P ERFORMING SITE LEGEND :+ +: : [facility] [place] :: : [address], [place] [address] :+ + [place] MethodistAFB sblktjc6662-29-65 12:13:05 Test Item Value Reference Range Interpretation Comments AFB culture No growth Specimen isolate (test after 6 weeks InformationSp ecimen code = 543-9) of Source: CSF (S naseem incubation. Fluid)Specimen Site: CSF (spinal fluid) [place] WorleyOCT, Optic Nerve - [id number] 13:34:42Chavo Bull MD - 05/24/2020 5:54 PM Ramiro WhatleyistAutomated Visual Field, Extended - OU 2020-03-08 13:34:39Chavo Bull MD - 05/24/2020 5:54 PM Ramiro Worley Fungus oyjuiyc8086-33-28 12:15:08 Test Item Value Reference Range Interpretation Comments Fungus culture No growth Specimen isolate (test after 4 weeks InformationSp ecimen code = 1441) of Source: CSF (Sp inal incubation. Fluid)Specimen Site: CSF (spinal fluid) [place] Worley3 in 1 Ymdikbo6357-33-71 11:07:52 Test Item Value Reference Range Interpretation Comments SUPPLIER NAME (test XMED Oxygen and code = 6415) Medical SUPPLIER PHONE (test [phone] code = 6416) ORDER STATUS (test code Delivery Successful = 6417) DELIVERY NOTE (test code = 6419) REQUESTED DELIVEY DATE 02/16/2020 (test code = 6420) ITEM DESCRIPTION (test 3 in 1 Commode Qty : 1 code = 6423) ACTUAL DELIVERY DATE 02/16/2020 (test code = 6422) [place] MethodistBasic metabolic xntwq4315-24-84 06:42:23 Test Item Value Reference Range Interpretation Comments Sodium (test code = 138 See_Comment [Automa leon message] 6901-2) The system [employer] generated this result transmit leon reference range : 135 - 148 mEq/L. Th e reference range was not used to interpret this result as normal/abnormal . Potassium (test code = 4.1 See_Comment [Aut omated message] 0213-3) The system [employer] generated this result transmit leon reference range : 3.5 - 5.0 mEq/L. Th e reference range was not used to interpret this result as normal/abnormal . Chloride (test code = 103 See_Comment [Auto mated message] 2074-0) The system [employer] generated this result transmit leon reference range : 98 - 112 mEq/L. Th e reference range was not used to interpret this result as normal/abnormal . CO2 (test code = 21 See_Comment L [Automated message] 2027-12) The system [employer] generated this result transmit leon reference range : 24 - 31 mEq/L. The reference range was not used to interpret this result as normal/abnormal . Anion gap (test code = 14@ANIO See_Comment [Aut omated message] 25456-3) The system [employer] generated this result transmit leon reference range : 7 - 15 mEq/L. The reference range was not used to interpret this result as normal/abnormal . BUN (test code = 14 mg/dL 6-20 3094-0) Creatinine (test code = 0.81 mg/dL 0.5-0.9 2160-0) Glucose (test code = 110 mg/dL 65-99 H 2345-7) Calcium (test code = 8.6 mg/dL 8.3-10.2 84561-2) Lab Interpretation Abnormal (test code = 33156-3) [place] MethodistEM General Bwanbiy7413-01-41 13:23:11Electromyogram and NCS ReportATRIUM HEALTH UNION WEST Neurological Xnitmecyp3807Camm,WP11,[place]N43471K: F : Patient: Snow Argueta Physician: Nicolasa Walters MDAge: 34 Test Date: 02/15/20ex: FemaleHeight: 66 inchesWeight: 220 lbsRef. M.D.: Lester Kolbycarolina Santana, MDDob: 86 History/Comments:Thepatient is a 34 YO [...] Site: Wrist Pk Lat (ms) Amp (uV)Stim Rxlj0ey dig 2.5 21.0 Sensory Nerve Study Right [...] independent left and right full field monocularstimulation. PvaZ502 absolute latencies were 99.8 msec and 102.6 msec following independent left andright eye stimulation. All interpeak latencies and waveform morphologies were normal. ImpressionThisis a normal study. ICD10 Code/Diagnosis: A01Vjsyrdm MethodistMRI Lumbar Spine W Wo Pxftvnqc0969-45-63 11:16:59Hm Interface, Radiology Results 02/13/2020 11:20 AM [...] on the right. Recommend correlation to radiculopathy distribution.[facility]-9QW79710O4Zezyuxs MethodK[facility] Brain Eoakcfux6140-88-87 09:57:03Hm Interface, Radiology Results - 02/13/2020 10:00 AM CDTEXAM: MRI BRAIN VENOGRAMCLINICAL HISTORY: Headache chronic normal neuro examTECHNIQUE: Head MR venogram using 2D nptp-gi-uthafs technique with multi-planar MIP and 3D reconstruction.COMPARISON: [...] no definite evidence of dural sinus venous thrombosis.[id number]_PS01[place] MethodistCytomegalovirus by PCR 2020-02-11 15:29:57 Test Item Value Reference Range Interpretation Comments Cytomegalovirus by PCR Not-Detected Not-Detected (test code = 5000-5) IU/mL Cytomegalovirus by PCR See link below Delta e Number: (test code = 1089) for PDF Lab [id number] Report [place] MethodistAngiotensin converting enzyme, [id number] 19:56:01 Test Item Value Reference Range Interpretation Comments Angiotensin 0.6 U/L 0-2.5 This test was d eveloped converting enzyme, and its p erformance CSF (test code = characteris tics 32252-5) determined by [facility]. T he U.S. Food and Drug Administration has not approved or kole ared this test; however, FDA clearance or ap proval is not currently r equired for clinical us e. The results are not intended to be used as t he sole means for clini conrad diagnosis or pa tient management decisions.Perfo rmed By: BENITA [address] [place], [place] [address]X aboratory Director: Nai Rushing MD [facility] Nile virus antibody panel, [id number] 17:17:47 Test Item Value Reference Range Interpretation Comments West Nile IgG, CSF 0.09 See_Comment INTERPRET YOLANDA INFORMATION: (test code = [place] [address]-2) DARSHANA, CSF 1.2 9 IV or less [...] Nile virus-specific IgG in CSF samples in [facility] there is a clinical suspic ion of West Nile Virus infe ction. This test should not be used solely for heladio titative purposes, nor s hould the results be used without correlation to clinical history or othe r data. Because other m embers of the Flaviviridae fa priscila, such as Mohave encep halitis virus, show extensive cross-reactivit y [...] developed and c haracteristics determined by [facility]. S ee Compliance Statement B: [employer] [Automated mess age] The system which ge nerated this result transmit leon reference range: <=1.29 I V. The reference range was not used to interpret th is result as normal/abnormal . West Nile IgM, CSF 0.02 See_Comment INTERPRET YOLANDA INFORMATION: (test code = [place] [address]-7) DARSHANA, CSF0.89 IV or less ...... Negative [...] Nile virus-specific IgM in CSF samples in [facility] there is a clinical suspic ion of West Nile virus infe ction. This test should not be used solely for heladio titative purposes, nor s hould the results be used without correlation to clinical history or othe r data. Because other m embers of the Flaviviridae fa priscila, such as Mohave encep halitis virus, show extensive cross-reactivit y [...] developed and c haracteristics determined by [facility]. S Compliance Statement B: [email or web address]/CSP erformed By: [employer] [facility] [address] [place], [place] [address]Raytkaozyt Director: Nai Rushing MD [Automated mess age] The system which ge nerated this result transmit leon reference range: <=0.89 I V. The reference range was not used to interpret th is result as normal/abnormal . [place] MethodistBlood culture, aerobic & dfoagmger6471-74-17 05:33:06 Test Item Value Reference Range Interpretation Comments Blood culture No growth Specimen isolate (test after 5 days InformationSpe cimen code = 600-7) of Source: BloodS pecimen incubation. Site: Antecubit al, right [place] MethodistLyme disease reflexive panel, [id number] 23:48:04 Test Item Value Reference Range Interpretation Comments B. burgdorferi Abs 0.08 See_Comment When the Borrelia DARSHANA, CSF (test code burgdo rferi Abs, Total by = 25521-7) DARSHANA result is negative, no further test [...] BENITA stone. See Compliance Stat ement B: [email or web address]/CSP erformed By: BENITA br[address]ies[address] [place] [id number] [facility] Director: Nai Rushing MD [Automated m essage] The system which ge nerated this result tra nsmitted reference range : <=0.99. The reference r gee was not used to int erpret this result as crow l/abnormal. [place] MethodistVENIPUNC NEED PHYS SKILL,DX OR [id number] 10:39:11CFamilia hickey RN 02/08/2020 10:40 AMMidline Date/Time: [...] Flat Vessel Size (mm): 5 Indication: Known mcc IV therapy Location: Left basilic Device Type:Non-valved Catheter Lumen(s): Single lumen Catheter size: 3 Fr Catheter to vein ratio: 24%MidLine Characteristics: Catheter Brand: SL PROVENA MIDLINE Internal Catheter Length (cm): 12 TotalCatheter Length (cm): 12 Catheter Lot Number: [id number] Catheter Expiration Date: 2Procedure details: Landmarks identified: [...] Patient tolerance of procedure: Tolerated well, no immediatecomplicationsKingston MethodistVDRL, CSF nxtycc3303-17-93 02:23:37 Test Item Value Reference Range Interpretation Comments VDRL, CSF screen (test code = Non-reactive Non-reactive 3046) [facility] duplex venous upper wzxsoszjx0542-74-06 22:03:00Interface, Radiology Results In - 02/07/2020 10:03 PM CDT Vascular Ultrasound Laboratory Upper Extremity Venous [address] [place] [address] Pat.Name: SNOW ARGUETA Pat.ID: [id number] St.Date: 02/07/2020 Refer.MD: MICHAEL MADDOX MD Exam Time: 4:33:00 PM Study Type:UE Venous Height: 66in Weight: 220lb BSA: 2.08 m2 Age: 7 1985,34Y Sex: FEMALE Sonogrphr: Ryan Torres, RVT Pat. Stat.:Inpatient Room: [address] Tape Vol: HV, CPT - 4: 34404 Echo Event ID:[id number] Order ID: [id number] Reason for Study:Right arm pain and swelling. [...] FINDINGS:-- Signed 02/07/2020 10:03 Yessi Obrien MD, [facility] MethodistOligoclonal banding, [id number] 15:44:13 Test Item Value Reference Range Interpretation Comments Protein, CSF (test code 24 mg/dL = 2880-3) Prealbumin, CSF (%) 6.4 % 3.5-11.1 (test code = 13664-9) Albumin, CSF (test code 66.1 % 40.8-66.2 = 54449-0) Alpha 1, CSF (%) (test 2.4 % 2.3-6.4 code = 24334-4) Alpha 2, CSF (%) (test 6.1 % 6.1-12.6 code = 64758-3) Beta, CSF (%) (test 13.1 % 11.7-24.1 code = 21355-6) Gamma, CSF (%) (test 5.9 % 5.6-12.2 code = 91857-5) CSF extended See Comment An essentially interpretation (test normal CSF protein code = 35298-4) study. No oligoclonal ban ds seen. CSF interpretation See Comment Miguel Boyd, PhD; (test code = 1163) Fam nettles MD [place] MethodistEnterovirus by [id number] 15:38:15 Test Item Value Reference Range Interpretation Comments Enterovirus PCR (test See link below Not-Detected Case Number: code = 07210-1) for PDF Lab [id number] Report [place] WorleyEpstein Noble Virus (EBV) by [id number] 15:13:17 Test Item Value Reference Range Interpretation Comments Albert Noble Not-Detected Not-Detected virus, PCR (test copies/mL code = 5005-4) Albert Noble See link below Case Number: virus, PCR (test for PDF Lab [id number] code = 1340) Report [place] WhatleyistVaricella zoster by [id number] 14:54:16 Test Item Value Reference Range Interpretation Comments VZV result (test Not-Detected Not-Detected code = 49556-0) copies/mL Varicella zoster, See link below Case Num rupal: pcr (test code = for PDF Lab [id number] 2 124) Report [place] MethodistCSF [id number] 14:08:32 Test Item Value Reference Range Interpretation Comments CSF culture No growth Specimen isolate (test after 3 days. InformationSp ecimen code = 606-4) Source: CSF (S naseem Fluid)Specimen Site: CSF (spinal fluid) [place] MethodistFlow cytometry [id number] 09:52:18 Test Item Value Reference Range Interpretation Comments Case number (test code = [id number]) Flow cytometry evaluation See link below for (test code = 8948847) PDF Lab Report [place] NEED PHYS SKILL,DX OR [id number] 09:18:07Javier Kolb RN 02/07/2020 9:21 AMMidline Date/Time: [...] to vein ratio: 41%MidLine Characteristics: Catheter Brand: ANGIODYMass Roots External Catheter Length (cm): 0 Internal Catheter Length (cm): 12 Total Catheter Length (cm): 12 Catheter Lot Number: [id number] Catheter Expiration Date: 1Procedure details: Landmarks identified: [...] tolerance of procedure: Tolerated well, no immediate complicationsTurner WorleyB. burgdorferi Abs total, [id number] 08:01:42 Test Item Value Reference Range Interpretation [...] burgdorferi detected.Perfor med By: BENITA [address] [place], [place] [address]C aboratory Director: MD Truner MilianistECG [id number] 12:49:19 Test Item Value Reference Range Interpretation Comments Ventricular rate (test 78 code = 253) Atrial rate (test code 78 = 255) ID interval (test code 144 = 266) QRSD [...] of 04-FEB-2020 04:50,-No significant change was found- [facility]XR Chest 1 Vw [id number] 22:09:52Hm Interface, Radiology Results Incoming - 02/05/2020 10:12 PM CDTEXAMINATION: XR CHEST 1 VW PORTABLECLINICAL HISTORY: 34 years Female chest pressure on exertionCOMPARISON: None.IMPRESSION:No acute cardiopulmonary disease.FINDINGS:The cardiomediastinal silhouette, lungs, and regional skeletal structures are within normal limits for age. [facility]-CE36WBMGPplmgcl MethodistHerpes simplex virus by [id number] 20:12:15 Test Item Value Reference Range Interpretation Comments Herpes virus, PCR Not-Detected Not-Detected (test code = 13713-9) Herpes virus, PCR See link below Case Num rupal: (test code = 1523) for PDF Lab [id number] Report [place] MethodistCytology (non-gynecological) [id number] 18:15:16 Test Item Value Reference Range Interpretation Comments Case number (test code = [id number]) Cytology See link below for (non-gynecological) PDF Lab Report report (test code = 1178) Result status (test code This is Final Report = [id number]) for [id number] [facility] MethodistCryptococcal antigen, [id number] 17:47:33 Test Item Value Reference Interpretation Comments Range Cryptococcal Ag Negative - No Specimen (test code = Cryptococcus InformationSpec en 9820-2) antigen detected. Source: CS F (Spinal Fluid)Specimen Site: CSF (spinal flu id) [place] [id number] 13:52:17 Test Item Value Reference Range Interpretation Comments ELMER screen (test Negative Negative Test perfor med using NOVA code = 550) Lite DAPI ELMER k it (Indirect Immunofluoresce nce Assay) for Anti-Nuclea r Antibody on [employer] QUANTA-Ly ser 160 Analyzer. [facility]ist[facility] cell count with secalergdtvj6604-96-23 13:21:52 Test Item Value Reference Range Interpretation Comments Color, CSF (test code = Colorless 91617-0) Appearance, CSF (test Clear Correc leon result code = 66633-4) called to Maximiliano Mallory/Stefano T18 02/04/2020 13: 21 Corrected resul t; previously repo rted as Slightly haz y on 02/04/2020 at 1 1:19 by DH2 RBC, CSF (test code = 33 See_Comment H [Auto mated message] 91253-1) The system [employer] generated this result transmit leon reference range : 0 - 1 /CMM. The reference range was not used to interpret this result as normal/abnormal . WBC, CSF (test code = 1 See_Comment [Auto mated message] 72247-9) The system [employer] generated this result transmit leon reference range : 0 - 5 /CMM. The reference range was not used to interpret this result as normal/abnormal . CSF mononuclear cell 1/CMM (test code = 57579-5) Lab Interpretation (test Abnormal code = 99648-8) [facility] MethodistIgG synthesis rate [id number] 13:09:21 Test Item Value Reference Range Interpretation Comments IgG albumin ratio, SEE COMMENT 0.00-0.23 Footnote- -------- CSF (test code = 1588) IgG index, CSF (test SEE COMMENT 0.01-0.63 Footnot e--------- code = 08967-7) IgG synthetic rate SEE COMMENT See_Comment Footnote- -------- (test code = [Automated mess age] 21354-2) The system [employer] generated this result transmitted ref erence range: -9.90 - 3.30 mg/day. The ref erence range was not u sed to interpret this result as normal/abnor mal. Q-albumin ratio, CSF SEE COMMENT 2.00-7.50 Footnot e--------- (test code = 1756-6) IgG, CSF (test code SEE COMMENT 1-3 Footnote --------- = 2464-6) Albumin, CSF (test SEE COMMENT 1030 Footnote- -------- code = 58436-3) IgG (test code = SEE COMMENT 700-1600 Footnote--- ------Corre 2465-3) cted result; previously repo rted as 852 on 02/04/20 20 at 12:58 by I/AUT Albumin, S (test SEE COMMENT 1217-8670 Footnote--- ------DUPLI code = 21139-3) DRU ORDER.C orrected result; previou sly reported as 370 0.0 on 02/04/2020 at 1 2:58 by I/AUT [facility] MethodistGram [id number] 12:47:25 Test Item Value Reference Range Interpretation Comments Gram stain No WBC's or Specimen isolate (test organisms seen. Information Specimen code = 1469) Source: CSF (Sp inal Fluid)Specimen Site: CSF (spinal fluid) [facility] WorleyGlucose level, [id number] 11:17:32 Test Item Value Reference Range Interpretation Comments Glucose, CSF (test code = 2342-4) 90 mg/dL 40-70 H Lab Interpretation (test code = Abnormal 37681-8) [facility] MethodistEEG (routine)2020-02-04 10:51:25EEG AWAKE AND ASLEEP [...] or epileptiform activity was recorded. ICD-10 Code: Z827Waibnbp MethodistIR Lumbar Puncture by Radiology 2020-02-04 10:23:15Hm [...] lumbar puncture.Opening pressure was 21 cm of water.[facility]-[id number] MethodistUrine drugs of abuse screen 2020-02-04 03:10:50 Test Item Value Reference Interpretation Comments Range Amphetamine screen, Negative urine (test code = 3349-8) Barbiturate screen, Negative urine (test code = 3377-9) Benzodiazepine Negative screen, urine (test code = 3390-2) Cocaine screen, Negative urine (test code = 3397-7) Methadone Negative metabolite (EDDP), urine (test code = 32010-4) Opiates screen, Positive A urine (test code = 3879-4) Oxycodone screen, Negative urine (test code = 89682-4) Phencyclidine Negative screen, urine (test code = 3936-2) Tricyclic screen, Negative urine (test code = 89309-0) Cannabinoid screen, Negative Drug scr een minimum [...] ired. Lab Interpretation Abnormal (test code = 13302-4) [place] [facility] Orbit W Wo [id number] 22:36:27Hm Interface, Radiology Results - 02/03/2020 10:39 [...] are preserved.IMPRESSION:Unremarkable MRI of the brain and orbits.[facility]-[id number] MethodistVitamin D 25 hydroxy [id number] 20:37:03 Test Item Value Reference Range Interpretation [...] and 25-hydroxy vitamin D2 is needed, p satishase contact lab for alternative met hods. [facility] Verdugoyphilis total djevhiyg0098-08-93 20:32:43 Test Item Value Reference Range Interpretation Comments Syphilis total Non-reactive Non-reactive No serologica l antibody (test code evidence of syphilis = 6194) infection. [facility] WorleyHIV Ag/Ab ecbtwxoceus6108-45-21 20:28:37 Test Item Value Reference Range Interpretation Comments HIV Ag/Ab combination (test code Non-reactive Non-reactive = 5299) [facility] WorleyVitamin B12 [id number] 19:35:13 Test Item Value Reference Range Interpretation Comments Vitamin B12 (test 541 pg/mL 211-946 Significan t overlap code = 2132-9) exists betwee n normal and deficiency states.However, most patients with deficiencies wi ll have Serum B12 <2 00 pg/mL. [facility] WorleyFolate brdao4272-05-07 19:35:13 Test Item Value Reference Range Interpretation Comments Folate (test code = 2284-8) 8.0 ng/mL 4.8-24.2 [facility] MethodistSedimentation [id number] 19:34:55 Test Item Value Reference Range Interpretation Comments Sedimentation rate (test 7 See_Comment [A utomated message] code = 57448-9) The system [employer] generated this result transmitted ref erence range: 0 - 20 m m/hr. The reference r gee was not used to int erpret this result as normal/abnormal . [facility] WorleyT4, [id number] 19:25:51 Test Item Value Reference Range Interpretation Comments T4, free (test code = 3024-7) 1.0 ng/dL 0.9-1.7 [facility] [id number] 19:25:51 Test Item Value Reference Range Interpretation Comments T3 (test code = 3053-6) 70 ng/dL 80-200 L Lab Interpretation (test code = Abnormal 17613-4) [facility] MethodistCortisol level, [id number] 19:25:00 Test Item Value Reference Range Interpretation Comments Cortisol, random 2 ug/dL Reference R anges are not (test code = 2143-6) establi shed for non-timed Cortisol levels .Reference Range for Timed Cortisol: 6 - 10 AM 6 - 18 ug/dl 4 - 8 PM 3 - 11 ug/ dl [place] MethodistThyroid stimulating qtwlvnk6286-05-89 19:25:00 Test Item Value Reference Range Interpretation Comments TSH (test code = 1.12 See_Comment [Automated message] The 3016-3) system which ge nerated this result transmit leon reference range : 0.27 - 4.20 uIU/mL. Th e reference range was not u sed to interpret this result as normal/abnormal . [place] MethodisthCG quantitative, [id number] 19:20:00 Test Item Value Reference Range Interpretation Comments hCG quantitative, <1 See_Comment Reference range for HCG serum (test code = Quant ashutosh lies to males and 77188-4) non-fem ales.Post Menopausal 0.0 - 8.1 mIU/mL [Automated mes forest] The system which ge nerated this result transmit leon reference range : 0 - 5 mIU/mL. The ref erence range was not used to interpret this result as normal/abnormal . [place] MethodistHomocystine, [id number] 19:14:45 Test Item Value Reference Range Interpretation Comments Homocysteine (test 6.4 umol/L 0-15 The risk for coronary code = 86251-1) vascular dis ease increases progressively w ith homocysteine concentration. A 3.4 times greater r isk is associated with a homocysteine concentration o f greater than 15.8 umol/L as jt red to a concentration below 14.1 umol/L. [place] MethodistRheumatoid [id number] 19:14:45 Test Item Value Reference Range Interpretation Comments Rheumatoid factor (test <10 See_Comment [Au tomated message] The code = 41069-4) system which generated this result tra nsmitted reference range : 0 - 13 IU/mL. The refe rence range was not u sed to interpret this result as normal/abnormal . [facility] MethodistCT Head Wo [id number] 16:17:18Hm Interface, Radiology Results - 02/03/2020 4:20 [...]
--- NOTE | 2020-06-14 20:35 | ER ---
Nurse's Notes [facility] Name: Snow Argueta Age: 34 yrs Sex: Female : 1985 Arrival Date: 06/14/2020 Time: 18:02 Bed 18 Private MD: Diagnosis: Acute embolism and thrombosis of deep veins of left upper extremity Presentation: 06/14 18:41 Chief complaint: Patient states: L arm tender to touch, swelling started yesterday. HX ca1 of blood clot on R arm. Had ultrasound done today at the [facility] urgent care and was told to come to the ER to start treatments for DVT on L arm. Coronavirus screen: Client denies travel out of the [place] in the last 14 days. At this time, the client does not indicate any symptoms associated with coronavirus-19. The client reports previous COVID testing was negative. Date of collection: June 14, 2020. Ebola Screen: Patient negative for fever greater than or equal to 101.5 degrees Fahrenheit, and additional compatible Ebola Virus Disease symptoms Patient denies exposure to infectious person. Patient denies travel to an Ebola-affected area in the 21 days before illness onset. No symptoms or risks identified at this time. Initial Sepsis Screen: Does the patient meet any 2 criteria? No. Patient's initial sepsis screen is negative. Does the patient have a suspected source of infection? No. Patient's initial sepsis screen is negative. Risk Assessment: Do you want to hurt yourself or someone else? Patient reports no desire to harm self or others. Onset of symptoms was June 14, 2020. 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 - Social history:: Smoking status: Patient denies any tobacco usage or history of. - Family history:: not pertinent. Vital Signs: 18:41 BP 123 / 81; Pulse 83; Resp 16 S; Temp 97.8(TE); Pulse Ox 100% on R/A; Weight 94.35 kg ca1 (R); Height 5 ft. 6 in. (167.64 cm) (R); Pain 8/10; 18:41 Body Mass Index 33.57 (94.35 kg, 167.64 cm) ca1 ED Course: 18:02 Patient arrived in ED. as 18:45 Triage completed. ca1 18:46 Arm band placed on right wrist. ca1 19:53 Rustam Aguirre MD is Attending Physician. lisandra 20:13 Mercy Vazquez, EBONIE is Primary Nurse. ll2 20:33 Bryant Dickerson MD is Referral Physician. lisandra Administered Medications: 20:58 Drug: Eliquis 10 mg Route: PO; ll2 20:58 Follow up: Response: Medication administered at discharge. ll2 Outcome: 20:35 Discharge ordered by . lisandra 20:58 Patient left the ED. ll2 Signatures: Rustam Aguirre MD MD cha Martinez, Amelia as Acob, Cheryl, RN RN [facility] Mercy Vazquez, EBONIE RN ll2 Corrections: (The following items were deleted from the chart) 18:46 18:41 Coronavirus screen: Client denies travel out of the [place] in the last 14 days. At ca1 this time, the client does not indicate any symptoms associated with coronavirus-19. ca1 18:46 18:41 Pulse 83bpm; Resp 16bpm; Spontaneous; Pulse Ox 100% RA; Temp 97.8F Temporal; ca1 94.35 kg Reported; Height 5 ft. 6 in. Reported; BMI: 33.5; Pain 8/10; ca1 18:47 18:41 Coronavirus screen: Client denies travel out of the [place] in the last 14 days. At ca1 this time, the client does not indicate any symptoms associated with coronavirus-19. The client reports previous COVID testing was negative. Date of collection: June 14, 2020 ca1
--- NOTE | 2020-06-14 20:36 | EDPHYS ---
Physician Documentation [facility] Name: Snow Argueta Age: 34 yrs Sex: Female : 1985 Arrival Date: 06/14/2020 Time: 18:02 Bed 18 Private MD: ED Physician Rustam Aguirre HPI: 06/14 20:28 This 34 yrs old Female presents to ER via Wheelchair with complaints of dvt. lisandra 20:28 The patient or guardian complains of pain, that is acute. The complaints affect the lisandra dorsal aspect of left forearm and palmar aspect of left forearm. Context: The problem was sustained at the hospital. Onset: The symptoms/episode began/occurred 1 week(s) ago. Treatment prior to arrival includes: no previous treatment. Modifying factors: The symptoms are alleviated by heat, remaining still, the symptoms are aggravated by movement. Associated signs and symptoms: The patient has no apparent associated signs or symptoms. The patient has experienced a previous episode, last year. 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 - Social history:: Smoking status: Patient denies any tobacco usage or history of. - Family history:: not pertinent. ROS: 20:28 Constitutional: Negative for fever, chills, and weight loss, Eyes: Negative for injury, lisandra pain, redness, and discharge, ENT: Negative for injury, pain, and discharge, Neck: Negative for injury, pain, and swelling, Cardiovascular: Negative for chest pain, palpitations, and edema, Respiratory: Negative for shortness of breath, cough, wheezing, and pleuritic chest pain, Abdomen/GI: Negative for abdominal pain, nausea, vomiting, diarrhea, and constipation, Back: Negative for injury and pain, : Negative for injury, bleeding, discharge, and swelling, Skin: Negative for injury, rash, and discoloration, Neuro: Negative for headache, weakness, numbness, tingling, and seizure, Psych: Negative for depression, anxiety, suicide ideation, homicidal ideation, and hallucinations, Allergy/Immunology: Negative for hives, rash, and allergies, Endocrine: Negative for neck swelling, polydipsia, polyuria, polyphagia, and marked weight changes, Hematologic/Lymphatic: Negative for swollen nodes, abnormal bleeding, and unusual bruising. 20:28 MS/extremity: Positive for tenderness, of the left arm. Exam: 20:28 Constitutional: This is a well developed, well nourished patient who is awake, alert, lisandra and in no acute distress. Head/Face: Normocephalic, atraumatic. Eyes: Pupils equal round and reactive to light, extra-ocular motions intact. Lids and lashes normal. Conjunctiva and sclera are non-icteric and not injected. Cornea within normal limits. Periorbital areas with no swelling, redness, or edema. ENT: Nares patent. No nasal discharge, no septal abnormalities noted. Tympanic membranes are normal and external auditory canals are clear. Oropharynx with no redness, swelling, or masses, exudates, or evidence of obstruction, uvula midline. Mucous membranes moist. Neck: Trachea midline, no thyromegaly or masses palpated, and no cervical lymphadenopathy. Supple, full range of motion without nuchal rigidity, or vertebral point tenderness. No Meningismus. Chest/axilla: Normal chest wall appearance and motion. Nontender with no deformity. No lesions are appreciated. Cardiovascular: Regular rate and rhythm with a normal S1 and S2. No gallops, murmurs, or rubs. Normal PMI, no JVD. No pulse deficits. Respiratory: Lungs have equal breath sounds bilaterally, clear to auscultation and percussion. No rales, rhonchi or wheezes noted. No increased work of breathing, no retractions or nasal flaring. Abdomen/GI: Soft, non-tender, with normal bowel sounds. No distension or tympany. No guarding or rebound. No evidence of tenderness throughout. Back: No spinal tenderness. No costovertebral tenderness. Full range of motion. Skin: Warm, dry with normal turgor. Normal color with no rashes, no lesions, and no evidence of cellulitis. Neuro: Awake and alert, GCS 15, oriented to person, place, time, and situation. Cranial nerves II-XII grossly intact. Motor strength 5/5 in all extremities. Sensory grossly intact. Cerebellar exam normal. Normal gait. Psych: Awake, alert, with orientation to person, place and time. Behavior, mood, and affect are within normal limits. 20:28 Musculoskeletal/extremity: Extremities: all appear grossly normal, with no appreciated pain with palpation, ROM: intact in all extremities, full active range of motion, Circulation is intact in all extremities. Sensation intact. Compartment Syndrome exam of affected extremity: is normal. DVT Exam: negative Homans' sign noted on exam, no appreciated bluish discoloration, no erythema, no increased warmth, pain, swelling, tenderness. Vital Signs: 18:41 BP 123 / 81; Pulse 83; Resp 16 S; Temp 97.8(TE); Pulse Ox 100% on R/A; Weight 94.35 kg ca1 (R); Height 5 ft. 6 in. (167.64 cm) (R); Pain 8/10; 18:41 Body Mass Index 33.57 (94.35 kg, 167.64 cm) ca1 MDM: 19:53 Patient medically screened. lisandra 20:31 Differential diagnosis: contusion, tendonitis. Data reviewed: vital signs, nurses lisandra notes, lab test result(s). 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 Test interpretation: by ED physician or midlevel provider: ECG, plain radiologic studies. 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 Administered Medications: 20:58 Drug: Eliquis 10 mg Route: PO; ll2 20:58 Follow up: Response: Medication administered at discharge. ll2 Disposition: 06/14/20 20:35 Discharged to Home. Impression: Acute embolism and thrombosis of deep veins of left upper extremity. - Condition is Stable. - Discharge Instructions: Deep Vein Thrombosis, Venous Thromboembolism. - Prescriptions for Eliquis 5 mg Oral tablet - take 1 tablet by ORAL route 2 times per day; 60 tablet. Eliquis 5 mg Oral tablet - take 2 tablet by ORAL route 2 times per day for 7 days take for the first week, then 5 mg po q 12 for 3 months; 26 tablet. Pepcid 20 mg Oral Tablet - take 1 tablet by ORAL route every 12 hours for 10 days; 60 tablet. - Medication Reconciliation Form, Thank You Letter, Antibiotic Education, Prescription Opioid Use form. - Follow up: Private Physician; When: 2 - 3 days; Reason: Recheck today's complaints, Continuance of care, Re-evaluation by your physician. Follow up: Bryant Dickerson MD; When: 2 - 3 days; Reason: Recheck today's complaints, Re-evaluation by your physician. - Problem is new. - Symptoms have improved. Signatures: Rustam Aguirre MD MD cha Acob, Cheryl, RN RN ca1 Mercy Vazquez RN RN ll2 Corrections: (The following items were deleted from the chart) 20:58 20:35 06/14/2020 20:35 Discharged to Home. Impression: Acute embolism and thrombosis of ll2 deep veins of left upper extremity. Condition is Stable. Forms are Medication Reconciliation Form, Thank You Letter, Antibiotic Education, Prescription Opioid Use. Follow up: Private Physician; When: 2 - 3 days; Reason: Recheck today's complaints, Continuance of care, Re-evaluation by your physician. Follow up: Bryant Dickerson; When: 2 - 3 days; Reason: Recheck today's complaints, Re-evaluation by your physician. Problem is new. Symptoms have improved. lisandra
[2020-06-14] MEDS ORDERED: APIXABAN 5 MG TABLET ONE (21:05)
[2020-06-14 22:46] VITALS: BP 123/81; TEMP 97.8; O2SAT 100
== END 2020-06-14 20:58 | disposition home or self-care (01) ==
LOC: ER 17:59
DX: I82.622 Acute embolism and thrombosis of deep veins of left upper extremity (principal); F90.9 Attention-deficit hyperactivity disorder, unspecified type; K21.9 Gastro-esophageal reflux disease without esophagitis; G40.909 Epilepsy, unspecified, not intractable, without status epilepticus; Z85.6 Personal history of leukemia; Z86.718 Personal history of other venous thrombosis and embolism
CPT/HCPCS: 99282

== ENCOUNTER 2020-06-15 13:52 | Emergency (ER) | payer OTHER ==
--- OUTSIDE RECORDS SUMMARY | 2020-06-15 13:59 | XMS REPORT | Continuity of Care Document ---
:1985 Author Organization [facility] t Address [address] [place] [address] Care Team Providers Name Role Phone Yari HAMILTON Primary Care Physician Yamil Mane MD Attending Clinician [facility] Attending Clinician Unavailable Lyndsay HAMILTON Attending Clinician Nasreen HAMILTON Attending Clinician Ashok Tsai MD Attending Clinician Marck Chung Attending Clinician Jae Bull MD Attending Clinician Marichuy HAMILTON Attending Clinician Toni Maldonado MD Attending Clinician Barber Attending Clinician Unavailable Janice Guevara MD Attending Clinician Edwin HAMILTON Attending Clinician Varsha HAMILTON, [facility] Attending Clinician Ricky HOBSON Attending Clinician Unavailable NASREEN Admitting Clinician Unavailable MARICHUY Admitting Clinician Unavailable EDWIN Admitting Clinician Unavailable Payers Payer Name Policy Type Policy Effective Date Expiration Date Sour ce Number CIGNACIGNA OPEN [id number] 2020 [place] ACCESS/NETWORKxx 00:00:00 Methodis t [id number] Problems Condition Condition Condition Status Onset Resolution Last Treating Co mments Source Name Details Category Date Date Treatment Clinician Date Weakness Weakness Disease Active [place] of right of right 2-14 Method i arm arm 00:00: st 00 COVID-19 COVID-19 Disease Active [place] virus virus 2-14 Methodi detected detected 00:00: st 00 Lower Lower Disease Active 2019-04 [place] extremity extremity 0-28 Meth tanvi weakness weakness 00:00: st 00 Debility Debility Disease Active 2019-04 [place] 0-26 Methodi 00:00: st 00 Weakness Weakness Disease Active 2019-04 [place] 0-24 Methodi 00:00: st 00 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 [place] al al 0-24 Methodi dysfunctio dysfunctio 00:00: st n n 00 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 0-15 Method i 00:00: st [...] Active 2020-06-03 M emoria (disorder) 01:44:50 l [place] Hemiplegia (disorder) Active Problem 06/03/2020 [facility] Visual Problem Active 2020-06-03 Memor ia disturbanc 01:44:50 l e Visual [place] (disorder) disturbanc e (disorder) Active Problem 06/03/2020 [facility] Disorienta Problem Active 2020-06-03 M emoria leon 01:44:50 l (finding) [place] Disorienta leon (finding) Active Problem 06/03/2020 [facility] [...] to drug Latex Propensi Active Hives 2019-04 [place] ty to 0-16 Methodi adverse 00:00: st reaction 00 s to drug Ondanset Propensi Active Headache 2019-04 [place] mikey Hcl ty to 0-16 Methodi adverse 00:00: st reaction 00 s to drug Gadobutr Propensi Active Other (See 2019-04 Vomiting [facility] ty to Comments) 0-15 Method i [...] cephalex Active Memori a in in l [place] Latex Latex Active [facility] matt [place] Gadavist Gadavist Active Memori a l Ricardo Cephalex Adverse Active [facility] Not [facility] Reaction Available [facility] Zofran Adverse Active Info Not [facility] Reaction Available [facility] Family History Family Member Diagnosis Comments Start Date Stop Date Source Paternal grandfather Kidney cancer [facility] Social History Social Habit Start Date Stop Date Quantity Comments Source Sex Assigned At [facility] ethodist Exposure to Yes [place] Metho dist SARS-CoV-2 (event) Tobacco use and 2020-06-10 2020-06-10 Never used [facility] ethodist exposure 00:00:00 00:00:00 Alcohol intake 2020-06-10 2020-06-10 Current drinker [place] Caodaism 00:00:00 00:00:00 of alcohol (finding) Alcohol Comment 2020-02-03 2020-02-03 occ drinker [place] Caodaism 00:00:00 00:00:00 Social History 2018-10-01 2018-10-01 [facility] 13:53:53 13:53:53 Smoking Status Start Date Stop Date Source Never smoker [place] Methodis t Medications Ordered Filled Start Stop [...] 90 cap, 2 Release Refill(s), Capsule Pharmacy: [[facility]] [id number], 167.64, cm, 04/19/20 14:37:00 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 metoclopram 2019-04 No 5mg [id number] Take 1 [place] dung 0-28 11- [id number] tablet (5 Met hodi (Reglan) 5 00:00: [...] it last week - unknown reason); [facility] 08/29/20, [...] - per patient) metoclopram 2019-04- No 5mg [id number] Take 1 [place] 0-20 - [id number] tablet (5 Met hodi (Reglan) 5 00:00: 00:00 3D mg total) s t MG tablet 00 :00 by mouth 3 (three) times a day as needed (nausea, vomiting) for up to 5 days. Vyvanse Vyvanse Yes Na Savage [address] [facility]-[address] [facility] - 00:00: morning Memoria 00 l Outpati ent Clinics oxcarbazepi Yes 300 mg = 1 Memoria ne 300 MG 9-06 tab, PO, l Oral Tablet 16:04: BID, # 180 [place]ardo [Trileptal] 19 tab, 3 Refill(s), Pharmacy: [facility] #[id number] 24 HR 2018- Yes 100 mg = 1 Memori a topiramate 9-06 cap, PO, l 100 MG 16:04: Daily, # Ricardo Extended 10 90 cap, 3 Release Refill(s), Capsule Pharmacy: [[facility]] [id number] 24 HR 2018- No 100 mg = 1 Memori a topiramate 9-04 cap, PO, l 100 MG 18:31: Daily, X Ricardo Extended 05 30 day, # Release 30 cap, 3 Capsule Refill(s), [[facility]] Pharmacy: [facility] oxcarbazepi No 300 mg = 1 Memoria ne 300 MG 9-04 tab, PO, l Oral Tablet 18:31: BID, X 30 H ermann [Trileptal] 02 day, # 60 tab, 3 Refill(s), Pharmacy: [facility] lisdexamfet Yes 30 mg = 1 M emoria amine 8-09 cap, PO, l dimesylate 16:20: QAM, # 30 He rmann 30 MG Oral 00 cap, 0 Capsule Refill(s) [Vyvanse] omeprazole Yes 20 mg = 1 Me moria 20 mg oral 7-17 cap, PO, l delayed 00:27: Daily, # Murray n release 00 30 cap, 2 capsule Refill(s), Pharmacy: [facility] oxcarbazepi Yes 300 mg = 1 Memoria ne 300 MG 7-03 tab, PO, l Oral Tablet 18:01: BID, # 60 H ermann [Trileptal] 00 tab, 2 Refill(s), Pharmacy: [facility] 24 HR Yes 100 mg = 1 Memori a topiramate 6-28 cap, PO, l 100 MG 14:50: Daily, # [place] Extended 00 30 cap, 3 Release Refill(s), Capsule Pharmacy: [[facility]] [facility] topiramate Yes 25 mg = 1 Me moria 25 MG Oral 6-14 tab, PO, l Tablet 23:33: BID, # 60 Murray n [Topamax] 00 tab, 2 Refill(s), Pharmacy: [facility] Phenytoin Yes 200 mg = 2 Me moria sodium 100 6-13 cap, PO, l MG Extended 13:57: BID, # 120 [place] Release 00 cap, 3 Capsule Refill(s), [Dilantin] Pharmacy: [facility] Alprazolam Yes 0.5 mg = [...] ts Source Name Name Bamrebeccaivimab 2020-06-10 Completed [place] 00:00:00 Caodaism FLUCELVAX QUAD PF 2020-02-06 Completed [place] 00:00:00 Caodaism Influenza Split Completed MD Charles on 00:00:00 Vital Signs Vital Name Observation Time Observation Value Comments Source Systolic blood 2020-06-10 14:17:19 128 mm[Hg] Yurito n Caodaism pressure Diastolic blood 2020-06-10 14:17:19 68 mm[Hg] Kaylen on Caodaism pressure Heart rate 2020-06-10 14:17:19 88 /min [place] Caodaism Body temperature 2020-06-10 14:17:19 36.11 Staci [place] Ca[facility] Respiratory rate 2020-06-10 14:17:19 16 /min [place] ton Caodaism Oxygen saturation in 2020-06-10 14:17:19 98 /min [place] Caodaism Arterial blood by Pulse oximetry Body height 2020-06-10 12:48:00 167.6 cm [place] Caodaism Body weight 2020-06-10 12:48:00 94.802 kg [place] Caodaism BMI 2020-06-10 12:48:00 33.73 kg/m2 [place] Caodaism Systolic (mm Hg) 2020-04-19 20:08:00 Unruly rial Ricardo Diastolic (mm Hg) 2020-04-19 20:08:00 [facility] orial Ricardo Heart Rate 2020-04-19 20:08:00 [facility] Respitory Rate 2020-04-19 20:08:00 Avery al Ricardo Height 2020-04-19 20:08:00 167.64 cm [facility] Weight 2020-04-19 20:08:00 [facility] Ricardo BMI Calculated 2020-04-19 20:08:00 Memori al Ricardo Systolic (mm Hg) 2020-03-29 20:19:00 Unruly rial Ricardo Diastolic (mm Hg) 2020-03-29 20:19:00 Mem orial Ricardo Heart Rate 2020-03-29 20:19:00 [facility] Ricardo Respitory Rate 2020-03-29 20:19:00 Memori al Ricardo Height 2020-03-29 20:19:00 167.64 cm [facility] [place] Weight 2020-03-29 20:19:00 [facility] Ricardo BMI Calculated 2020-03-29 20:19:00 Memori al Ricardo Systolic (mm Hg) 2020-02-29 17:31:00 Unruly rial [place] Diastolic (mm Hg) 2020-02-29 17:31:00 Mem orial [place] Heart Rate 2020-02-29 17:31:00 [facility] [place] Respitory Rate 2020-02-29 17:31:00 Memori al Ricardo Height 2020-02-29 17:31:00 167.64 cm [facility] [place] Weight 2020-02-29 17:31:00 [facility] [place] BMI Calculated 2020-02-29 17:31:00 Memori al [place] Systolic (mm Hg) 2018-12-23 18:03:00 Unruly rial [place] Diastolic (mm Hg) 2018-12-23 18:03:00 Mem orial Ricardo Heart Rate 2018-12-23 18:03:00 [facility] [place] Respitory Rate 2018-12-23 18:03:00 Memori al Ricardo Height 2018-12-23 18:03:00 167.64 cm [facility] [place] Weight 2018-12-23 18:03:00 [facility] [place]ardo BMI Calculated 2018-12-23 18:03:00 Memori al Ricardo BMI Calculated 2018-11-27 15:59:00 Memori al [place] Weight 2018-11-27 15:59:00 [facility] [place] Height 2018-11-27 15:59:00 167.64 cm [facility] Ricardo Heart Rate 2018-11-27 15:59:00 [facility] [place] Respitory Rate 2018-11-27 15:59:00 Memori al Ricardo Systolic (mm Hg) 2018-11-27 15:59:00 Unruly rial Ricardo Diastolic (mm Hg) 2018-11-27 15:59:00 Mem orial Ricardo Respitory Rate 2018-10-16 14:19:00 Memori al [place]ardo Systolic (mm Hg) 2018-10-16 14:19:00 Unruly rial [place] Diastolic (mm Hg) 2018-10-16 14:19:00 Mem orial [place] BMI Calculated 2018-10-16 14:19:00 Memori al Ricardo Weight 2018-10-16 14:19:00 [facility] [place]ardo Height 2018-10-16 14:19:00 167.64 cm [facility] [place] Heart Rate 2018-10-16 14:19:00 [facility] [place] BMI Calculated 2018-10-01 13:18:00 Memori al Ricardo Weight 2018-10-01 13:18:00 [facility] [place] Height 2018-10-01 13:18:00 167.64 cm [facility] [place] Respitory Rate 2018-10-01 13:18:00 Memori al [place] Heart Rate 2018-10-01 13:18:00 [facility] [place] Systolic (mm Hg) 2018-10-01 13:18:00 Unruly rial Ricardo Diastolic (mm Hg) 2018-10-01 13:18:00 Mem orial [place] Procedures Procedure Date / Time Performing Clinician Source Performed MRI THORACIC SPINE W 2020-06-06 16:01:00 Caleb Kent [facility] CONTRAST MRI CERVICAL SPINE W 2020-06-06 16:01:00 Caleb Kent [facility] CONTRAST MRI BRAIN W WO CONTRAST 2020-06-06 16:00:00 Caleb Kent [facility] Caodaism C-REACTIVE PROTEIN 2020-06-06 12:12:00 Jen Tsai Caodaism Natvarlal INTERLEUKIN 6 2020-06-06 12:12:00 Jen Tsai Met hodist Natvarlal FERRITIN LEVEL 2020-06-06 12:12:00 Jen Tsai [facility] hodist Natvarlal D-DIMER 2020-06-06 12:12:00 Jen Tsai [facility] hodist Natvarlal LDH 2020-06-06 12:12:00 Jen Tsai Met hodist Natvarlal FIBRINOGEN 2020-06-06 12:12:00 Jen Tsai Met hodist Natvarlal CT CHEST WO CONTRAST 2020-06-06 12:03:12 Eloise Dorsey on Caodaism URINE CULTURE 2020-06-04 07:58:00 Kanchan Downey [place] Meth odist URINALYSIS SCREEN AND 2020-06-04 07:58:00 Eloise Dorsey Caodaism MICROSCOPY, WITH REFLEX TO CULTURE HCG QUALITATIVE, URINE 2020-06-04 07:58:00 Eloise Dorsey SCREEN COVID-19 QUALITATIVE PCR 2020-06-04 07:45:00 Eloise Dorsey HC COMPLETE BLD COUNT 2020-06-04 02:45:00 Jose Gomez W/AUTO DIFF Imarendenewe COMPREHENSIVE METABOLIC 2020-06-04 01:56:00 Jose Gomez Caodaism PANEL Imarendenewe ESTIMATED GFR 2020-06-04 01:56:00 Jose Gomez ethodist Imarendenejose e OCT, OPTIC NERVE - OU - 2020-03-08 13:34:42 Chavo Bull Caodaism BOTH EYES AUTOMATED VISUAL FIELD, 2020-03-08 13:34:38 Chavo Bull Caodaism EXTENDED - OU - BOTH EYES DURABLE MEDICAL EQUIPMENT 2020-02-16 10:31:42 Blessing Maldonado Caodaism Toni BASIC METABOLIC PANEL 2020-02-16 05:10:00 Sharlene Julian on Caodaism Chiazocarroll ESTIMATED GFR 2020-02-16 05:10:00 Erica Blessing [place] Md thodist Toni DURABLE MEDICAL EQUIPMENT 2020-02-15 15:56:49 Caleb Roque Caodaism EMG 2020-02-15 12:46:48 Fior Batista Me thodist [...] CRYPTOCOCCAL ANTIGEN 2020-02-04 09:56:00 Andressa Givens on Caodaism SCREEN GRAM STAIN 2020-02-04 09:56:00 Kim Guevara CSF CELL COUNT WITH 2020-02-04 09:56:00 Andressa Givens n Caodaism DIFFERENTIAL GLUCOSE LEVEL, CSF 2020-02-04 09:56:00 Andressa Givens IGG SYNTHESIS RATE STUDY 2020-02-04 09:56:00 Andressa Givens Caodaism VDRL, CSF SCREEN 2020-02-04 09:56:00 Andressa Givens [...] BLD COUNT 2020-02-04 01:40:00 Aldo Pineda on Caodaism W/AUTO DIFF BASIC METABOLIC PANEL 2020-02-04 01:40:00 Aldo Pineda on Caodaism ESTIMATED GFR 2020-02-04 01:40:00 Kim Guevara URINE [...] AG/AB COMBINATION 2020-02-03 18:25:00 Manan Hernández uston Caodaism VITAMIN D 25 HYDROXY LEVEL 2020-02-03 18:25:00 Manan Hernández B. BURGDORFERI ABS TOTAL, 2020-02-03 18:25:00 Manan Hernández SERUM CT HEAD WO CONTRAST 2020-02-03 16:14:55 Manan Hernández HCG QUANTITATIVE, SERUM 2020-02-03 14:27:00 Manan Hernández Tubal ligation [facility] Plan of Care Planned Activity Planned Date Details Comments Source Future Scheduled 2023-02-02 Screening for Turner Me thodist Test 00:00:00 malignant neoplasm of cervix (procedure) [code = 658956896] Future Scheduled 2004 Hepatitis C Turner Met hodist Test 00:00:00 screening (procedure) [code = 302132159] Future Scheduled 2002 COVID-19 VACCINE (1 [place] Caodaism Test 00:00:00 of 2) [code = COVID-19 VACCINE (1 of 2)] Encounters Start End Encounter Admission Attending Care Care Encounter Source Date/Time Date/Time Type Type Clinicians Facility Department ID 2020-06-12 2020-06-12 [id number] [facility] 2020-06-12 2020-06-12 [facility] [id number] [facility] [facility] 00[facility]00[facility]00 00[facility]00[facility]00 [facility] 2020-06-10 2020-06-10 Outpatient FEDE [facility] [id number] [place] 00:00:00 00:00:[address] 2020-06-09 2020-06-09 [facility] [id number] [facility] 2020-06-09 2020-06-09 Outpatient [facility] [id number] [facility] 2020-06-04 2020-06-07 [id number] [place] 00:00:00 00:00:00 DAKOTATKRODRIGO [address] 2020-05-31 2020-05-31 Outpatient Krell, MHMISCHER MHMISCHER [id number] 11:30:00 23:59:59 David 12 [place] 2020-05-31 2020-05-31 Outpatient Kremaxime, MHMISCHER MHMISCHER [id number] 15:30:00 15:30:00 David 11 [facility] 2020-04-19 2020-04-19 Outpatient Kremaxime, MHMISCHER MHMISCHER [id number] 14:00:00 23:59:59 David 10 [facility] 2020-04-18 2020-04-18 Outpatient [facility] [id number] [facility] 2020-04-11 2020-04-11 Outpatient Juliet, MHMISCHER MHMISCHER [id number] 10:00:00 23:59:59 David 09 [facility] 2020-03-29 2020-03-29 Outpatient Juliet, MHMISCHER MHMISCHER [id number] 14:00:00 23:59:59 David 08 [facility] 2020-03-22 2020-03-22 Outpatient [facility] [id number] [facility] 2020-03-16 2020-03-16 Outpatient [facility] [id number] [facility] 2020-03-08 2020-03-08 Outpatient CHAVO BULL [facility] [id number] [place] 00:00:00 00:00:[address] 2020-03-07 2020-03-07 Outpatient [facility] [id number] [facility] 2020-02-29 2020-02-29 Outpatient Juliet, DEDESCHER MISCH [id number] 11:15:00 23:59:59 David Ema Acharya 2020-02-21 2020-02-21 [facility] [id number] [facility] 2020-02-17 2020-02-17 [facility] [id number] [facility] 2020-02-12 2020-02-16 Inpatient ERICA, [facility] [id number] [place] 00:00:00 00:00:00 BLESSING Ceballos[address] [facility] 2020-02-15 2020-02-15 Outpatient Juliet, FAYEMISCHER MISCHER [id number] 09:15:00 09:15:00 David Natanael Acharya 2020-02-09 2020-02-09 [facility] [id number] [facility] 2020-02-03 2020-02-08 Inpatient VARSHA, [facility] [id number] [place] 00:00:00 00:00:00 MICHAEL Santacruz [facility] 2020-01-17 2020-01-17 [facility] [id number] [facility] 2019-12-14 2019-12-14 [facility] [id number] 10:48:00 10:48:00 t [employer] s - Drive [facility] Clin[facility] 2019-11-23 2019-11-23 [facility] [id number] 09:00:00 09:00:00 t [employer] s - Drive [facility] 2019-11-23 2019-11-23 [facility] [id number] 08:05:00 08:05:[address] [facility] [address] [employer] [address] [facility] 2019-10-15 2019-10-15 [facility] [id number] 08:44:00 08:44:00 t [employer] s - [employer] [facility] Clin[facility] 2019-09-07 2019-09-07 [facility] [id number] 11:56:00 11:56:00 [facility] Outpati ent Clinics 2019-08-13 2019-08-13 [facility] [id number] 10:20:00 10:20:00 t [employer] s - [employer]Asset [facility] Clin[facility] 2019-08-12 2019-08-12 [facility] [id number] 09:49:00 09:49:00 t [employer] s - [employer] [facility] 2019-06-15 2019-06-15 [facility] [id number] 15:24:00 15:24:00 t [employer] s - [employer] [facility] 2019-06-09 2019-06-09 [facility] [id number] 08:40:00 08:40:00 [facility] Outpat[facility] ent Clinics 2019-06-03 2019-06-03 [facility] [id number] 10:52:00 10:52:00 t [employer] s - [employer] [facility] Clin[facility] 2019-05-28 2019-05-28 [facility] [id number] 16:20:00 16:20:00 t [employer] s netomat [facility] 2019-05-21 2019-05-22 Outpatient MISCHER MHMISCHER [id number] 14:44:00 23:59:59 00 2019-04-28 2019-04-28 Outpatient FAYE ChungDESCHBINU MISCHER [id number] 13:00:00 13:00:00 David Acharya 2019-01-01 2019-01-01 [facility] [id number] 15:32:00 15:32:00 [place] [employer] Luke s - Drive [facility] Outpati ent Clinics 2018-12-31 2018-12-31 [facility] [id number] 09:55:00 09:55:00 [place] [employer] Luke s - Drive [facility] Outpati ent Clinics 2018-12-30 2018-12-30 [facility] [id number] 13:25:00 13:25:00 [place] [employer] s - Drive [facility] Outpati ent Clinics 2018-12-30 2018-12-30 [facility] [id number] 08:00:00 08:00:00 [place] [employer] s - Drive [facility] Outpati ent Clinics 2018-12-29 2018-12-29 [facility] [id number] 09:42:00 09:42:00 t [place] [employer]tron[employer] s - Drive [facility] Outpati ent Clinics 2018-12-23 2018-12-23 Outpatient ASIF Chung [facility] [id number] 13:15:00 23:59:59 David 04 [place] 2018-12-04 2018-12-04 [facility] [id number] 16:20:00 16:20:00 t [place] [employer] - [employer] [facility] Outpati ent Clinics 2018-11-30 2018-11-30 [facility] [id number] 10:08:00 10:08:00 t [facility] Out[facility] ent Clinics 2018-11-27 2018-11-27 Outpatient ASIF Chung [facility] [id number] 10:45:00 23:59:59 David 03 [place] 2018-11-27 2018-11-27 [facility] [id number] 13:00:00 13:00:00 t [place] [employer] [address] [facility] Outpati ent Clinics 2018-10-29 2018-10-29 [facility] [id number] 10:40:00 10:40:00 t [place] [employer] netomat [facility] Out[facility] Clinics 2018-10-16 2018-10-16 Outpatient ASIF Chung MALISSASCHER [id number] 09:00:00 23:59:59 David 02 [place] 2018-10-02 2018-10-02 Outpatient ASIF ChungSCHER [id number] 15:00:00 23:59:59 David Marck 2018-10-01 2018-10-01 Outpatient ASIF ChungSCHER [id number] 08:15:00 23:59:59 David 00 Mar[place] 2018-09-30 2018-09-30 [facility] [id number] 13:00:00 13:00:00 t [place] [employer] s - [employer] [facility] Out[facility] Clinics 2018-08-31 2018-08-31 [facility] [id number] 11:00:00 11:00:00 t [place] [employer] s - Drive [facility] Outpat[facility] ent Clinics 2018-07-27 2018-07-27 [facility] [id number] 13:54:00 13:54:00 t [place] [employer] s - Drive [facility] Out[facility] Clinics 2018-07-23 2018-07-23 [facility] [id number] 08:53:00 08:53:00 t [place] [employer] s - Drive [facility] Out[facility] Clinics 2018-07-23 2018-07-23 [facility] [id number] 08:15:00 08:15:00 t [place] [employer] s - Drive [facility] Out[facility] Clinics 2018-06-22 2018-06-22 [facility] [id number] 10:30:00 10:30:00 t [place] [employer] s - Drive [facility] Out[facility] Clin[facility] 2018-05-04 2018-05-04 [facility] [id number] 12:00:00 12:00:00 t [place] [employer] s - Drive [facility] Clin[facility] 2018-04-02 2018-04-02 [facility] [id number] 09:00:00 09:00:00 [facility] Results Test Description Test Time Test Comments Results Result [facility] e Comments MRI Thoracic 2020-05-22 [facility] [place] Spine W Contrast 6 Radiology Results [facility] 17:13:41 Incoming - 06/06/2020 5:16 PM CSTEXAMINATION: [...] or neural foraminal stenosis.[id number] MRI Cervical 2020-05-22 [facility] [place] Spine W Contrast [address] [facility] 17:08:17 Incoming - 06/06/2020 5:11 PM CSTEXAMINATION: [...] 21H2W MRI Brain W Wo 2020-05-22 Interface, [place] Contrast [address] 16:41:58 [...] 13-150 A Lab Interpretation (test code = 98998-9) Abnormal [place] [facility] 13:04:33 Test Item Value Reference Range Interpretation Comments Interleukin 6 (test <2.5 0-10.5 This nicole t has not been code = 67677-6) FDA cleared or approved. This test has [...] on is terminated or r evoked sooner. [place] MethodistC-reactive [id number] 12:57:24 Test Item Value Reference Range Interpretation Comments CRP (test code = 1988-) <0.30 0-0.5 [place] [id number] 12:57:23 Test Item Value Reference Range Interpretation Comments LDH (test code = 00238-0) 136 U/L 87-225 [place] BuutqvjybZ-tjufa1884-47-16 12:47:11 Test Item Value Reference Range Interpretation Comments D-dimer (test code = 0.35 See_Comment Units a re ug/ml Fibrinogen 93261-8) Equivalent Unit .When combined with l ow [...] states, sepsis, and malignancies. [Automated message] The sy stem which generated this result transmitted ref erence range: 0.00 - 0.40 ug/ mL FEU. The reference range was not used to interpret is result as normal/abnormal . [place] JkgabklipAamwdlqaru4099-75-10 12:44:31 Test Item Value Reference Range Interpretation Comments Fibrinogen (test code = 60371-9) 293 mg/dL 200-450 [place] MethodistCT Chest Wo Rmmbssbk4873-12-45 12:08:03Hm Interface, Radiology Results Incoming - 06/06/2020 [...] findings, this is compatible with mild Covid pneumonia.[facility]-[id number] MethodistCOVID-19 qualitative [id number] 18:32:38 Test Item Value Reference Range Interpretation Comments Interpretation (test Positive results code = 8039586) are indicative of active infection with 2019-nCoV but do not rule out bacterial infection or coinfection with other viruses. The agent detected may not be the definite cause of disease. COVID-19 qualitative Detected Not-Detected A PCR result (test code = 81937-6) COVID-19 qualitative See link below for C ase Number: PCR (test code = PDF Lab Report [id number] 7070) Lab Interpretation Abnormal (test code = 43198-4) [place] MethodistUrinalysis screen and microscopy, with reflex to culture 2020-06-04 12:57:58 Test Item Value Reference Range Interpretation Comments Specimen site (test Clean catch code = 2930407) Color, UA (test code = Yellow 5778-6) Appearance, UA (test Clear code = 5767-9) Specific gravity, UA >1.060 1.001-1.035 H Results double (test code = 5811-5) checked . pH, UA (test code = 6.0 5.0-8.5 5803-2) Protein, UA (test code Negative Negative = 05738-0) Glucose, UA (test code Negative Negative = 34486-9) Ketones, UA (test code Negative Negative = 2514-8) Bilirubin, UA (test Negative Negative code = 5770-3) Blood, UA (test code = Negative Negative 5794-3) Nitrite, UA (test code Negative Negative = 5802-4) Urobilinogen, UA (test <2.0 <2.0 code = 54801-4) Leukocyte esterase, UA Negative Negative (test code [...] (test code = 2 See_Comment [Autom ated 86704-1) message] The sy stem which generated this result transmitted reference range : 0 - 5 /HPF. The reference range was not used to interpret this result as normal/abnormal . Bacteria, UA (test code None seen None seen = 23156-0) Yeast, UA (test code = None seen 95109-5) Yeast with None seen pseudohyphae, UA (test code = 96419-1) Lab Interpretation Abnormal (test code = 19733-8) [place] WorleyUrine wpuxfzk8193-64-15 12:51:05 Test Item Value Reference Range Interpretation Comments Urine culture (test SEE COMMENT Bacteriu kieran screen code = 0937218) negative. [place] MethodisthCG qualitative, urine ddboma2656-56-83 12:48:01 Test Item Value Reference Range Interpretation Comments hCG qualitative, Negative Sensitivity of HCG test: urine (test code = 25 mIU/mL 6-3) [facility] WorleyComprehensive metabolic zcpeb5751-14-68 03:34:16 Test Item Value Reference Range Interpretation Comments Sodium (test code = 137 See_Comment [Automa leon message] 7301-2) The system whic h generated this result transmit leon reference range : 135 - 148 mEq/L. Th e reference range was not used to interpret this result as normal/abnormal . Potassium (test code = 3.3 See_Comment L [Aut omated message] 2823-3) The system [employer] generated this result transmit leon reference range : 3.5 - 5.0 mEq/L. Th e reference range was not used to interpret this result as normal/abnormal . Chloride (test code = 106 See_Comment [Auto mated message] 2074-0) The system [employer] generated this result transmit leon reference range : 98 - 112 mEq/L. Th e reference range was not used to interpret this result as normal/abnormal . CO2 (test code = 21 See_Comment L [Automated message] 2027-12) The system [employer] generated this result transmit leon reference range : 24 - 31 mEq/L. The reference range was not used to interpret this result as normal/abnormal . Anion gap (test code = 10@ANIO See_Comment [Aut omated message] 53593-1) The system [employer] generated this result transmit leon reference range : 7 - 15 mEq/L. The reference range was not used to interpret this result as normal/abnormal . BUN (test code = 11 mg/dL 6-20 3094-0) Creatinine (test code = 0.86 mg/dL 0.5-0.9 2160-0) Glucose (test code = 113 mg/dL 65-99 H 2345-7) Calcium (test code = 8.1 mg/dL 8.3-10.2 L 66623-6) Protein (test code = 6.7 g/dL 6.3-8.3 [...] 1975-2) Lab Interpretation Abnormal (test code = 13832-3) [place] MethodistEstimated [id number] 03:34:14 Test Item Value Reference Range Interpretation Comments Estimated GFR (test 88 mL/min/1.73 m2 [facility] or Units code = 5488) InterpretationG 1 >=90 Normal or highG2 60-89 Mildly pkzicadrzO4w 45-59 Mildly to mode rately bhmryfcqpO0d 30-44 Moderately to severely decreasedG4 15-29 Severely decre asedG5 <15 Kidn ey failureThe eGFR was calculated morena dover the Chronic Kidney Disease Epidemiology Co llaboration (CKD-EPI) equat ion. Interpretation is based on recommendations of the National Kidney Foundation-Kidn ey Disease Outcomes Qualit y Initiative (NKF-KDOQI) pub lished in 2013. [place] MethodistCBC with platelet and mxljtcrauflm1832-77-01 03:08:29 Test Item Value Reference Range Interpretation Comments WBC (test code = 4.53 See_Comment [Automated message] 68675-9) The system [employer] generated this result transmitted ref erence range: 4.50 - 1 1.00 k/uL. The refer ence range was not u sed to interpret this result as normal/abnor mal. RBC (test code = 4.45 m/uL 4.2-5.5 62805-6) HGB (test code = 718-7) 12.6 g/dL 12-16 HCT (test code = 38.5 % 37-47 4544-3) MCV (test code = 787-2) 86.5 fL 82-100 MCH (test code = 785-6) 28.3 pg 27-34 MCHC (test code = 32.7 g/dL 31-37 786-4) RDW - SD (test code = 39.6 fL 37-55 52118-1) MPV (test code = 11.8 fL 8.8-13.2 32339-5) Platelet count (test 194 See_Comment [Autom ated message] code = 14666-1) The system w hich generated this result transmitted ref erence range: 150 - 40 0 k/uL. The refer ence range was not u sed to interpret this result as normal/abnor mal. Nucleated RBC (test 0.00 See_Comment [Automa leon message] code = 16928-3) The system [employer] generated this result transmitted ref erence range: /100 WBC . The reference range was not used to int erpret this result as normal/abnormal . Neutrophils (test code 49.9 % 39-69 = 81202-5) Lymphocytes (test code 39.1 % 25-45 = 24744-2) Monocytes (test code = 9.9 % 0-10 33267-6) Eosinophils (test code 0.7 % 0-5 = 97815-2) Basophils (test code = 0.2 % 0-1 38931-4) Immature granulocytes 0.2 % 0-1 "Immat ure (test code = 13773-8) granul ocytes" (promyelocytes, myelocytes, metamyelocytes) [place] MethodistMiscellaneous referral fpvd5046-31-32 10:53:54 Test Item Value Reference Range Interpretation [...] developed and its performancechar acteristics determined by [facility] in a mannerconsisten t with CLIA requirements. T his test has not beencleared or approved by the U.S. Food and DrugAdministrat ion. + +: P ERFORMING SITE LEGEND :+ +: : [facility] :: : [address] , [place] [address] :+ + [place] MethodistAFB ednwznv7863-76-38 12:13:05 Test Item Value Reference Range Interpretation Comments AFB culture No growth Specimen isolate (test after 6 weeks InformationSp ecimen code = 543-9) of Source: CSF (S naseem incubation. Fluid)Specimen Site: CSF (spinal fluid) [place] WorleyOCT, Optic Nerve - [id number] 13:34:42Chavo Bull MD - 05/24/2020 5:54 PM Ramiro MethodistAutomated Visual Field, Extended - OU 2020-03-08 13:34:39Chavo Bull MD - 05/24/2020 5:54 PM Ramiro Worley Fungus qufhgoc6546-88-01 12:15:08 Test Item Value Reference Range Interpretation Comments Fungus culture No growth Specimen isolate (test after 4 weeks InformationSp ecimen code = 1441) of Source: CSF (Sp inal incubation. Fluid)Specimen Site: CSF (spinal fluid) [place] Whatleyist3 in 1 Bjidcey2230-97-91 11:07:52 Test Item Value Reference Range Interpretation Comments SUPPLIER NAME (test XMED Oxygen and code = 6415) Medical SUPPLIER PHONE (test [phone] code = 6416) ORDER STATUS (test code Delivery Successful = 6417) DELIVERY NOTE (test code = 6419) REQUESTED DELIVEY DATE 02/16/2020 (test code = 6420) ITEM DESCRIPTION (test 3 in 1 Commode Qty : 1 code = 6423) ACTUAL DELIVERY DATE 02/16/2020 (test code = 6422) [facility] metabolic qqwsn2540-32-30 06:42:23 Test Item Value Reference Range Interpretation Comments Sodium (test code = 138 See_Comment [Automa leon message] 6511-2) The system [employer] generated this result transmit leon reference range : 135 - 148 mEq/L. Th e reference range was not used to interpret this result as normal/abnormal . Potassium (test code = 4.1 See_Comment [Aut omated message] 2063-3) The system [employer] generated this result transmit leon reference range : 3.5 - 5.0 mEq/L. Th e reference range was not used to interpret this result as normal/abnormal . Chloride (test code = 103 See_Comment [Auto mated message] 0) The system [employer] generated this result transmit leon reference range : 98 - 112 mEq/L. Th e reference range was not used to interpret this result as normal/abnormal . CO2 (test code = 21 See_Comment L [Automated message] 2027-12) The system [employer] generated this result transmit leon reference range : 24 - 31 mEq/L. The reference range was not used to interpret this result as normal/abnormal . Anion gap (test code = 14@ANIO See_Comment [Aut omated message] 68242-7) The system [employer] generated this result transmit leon reference range : 7 - 15 mEq/L. The reference range was not used to interpret this result as normal/abnormal . BUN (test code = 14 mg/dL 6-20 3094-0) Creatinine (test code = 0.81 mg/dL 0.5-0.9 2160-0) Glucose (test code = 110 mg/dL 65-99 H 2345-7) Calcium (test code = 8.6 mg/dL 8.3-10.2 00924-6) Lab Interpretation Abnormal (test code = 52556-3) [facility] Iixjhwc3803-43-99 13:23:11Electromyogram and NCS ReportNOV[facility] Neurological Vjowbrrzr9924Thkj,11,Turner,OE41836D: F : Patient: Jovanni Arguetaley Physician: Nicolasa Walters MDAge: 34 Test Date: [...] Site: Wrist Pk Lat (ms) Amp (uV)Stim Ymop9ge dig 2.5 21.0 Sensory Nerve Study Right [...] independent left and right full field monocularstimulation. LnwS153 absolute latencies were 99.8 msec and 102.6 msec following independent left andright eye stimulation. All interpeak latencies and waveform morphologies were normal. ImpressionThisis a normal study. ICD10 Code/Diagnosis: X34Mgaougj MethodistMRI Lumbar Spine W Wo Xifvgsbo8826-51-79 11:16:59Hm Interface, Radiology Results 02/13/2020 11:20 AM [...] on the right. Recommend correlation to radiculopathy distribution.[facility]-[id number] Country Memorial HospitalI Brain Mfmngvhm9344-75-05 09:57:03Hm Interface, Radiology Results 02/13/2020 10:00 AM CDTEXAM: MRI BRAIN VENOGRAMCLINICAL HISTORY: Headache chronic normal neuro examTECHNIQUE: Head MR venogram using 2D vtfc-ef-elhamn technique with multi-planar MIP and 3D reconstruction.COMPARISON: [...] (test code = 1089) for PDF Lab [id number] Report [place] MethodistAngiotensin converting enzyme, KZG5080-05-21 19:56:01 Test Item Value Reference Range Interpretation Comments Angiotensin 0.6 U/L 0-2.5 This test was d eveloped converting enzyme, and its p erformance CSF (test code = characteris tics 02253-0) determined by A [facility] Communication Science. T he U.S. Food and Drug Administration has not approved or kole ared this test; however, FDA clearance or ap proval is not currently r equired for clinical us e. The results are not intended to be used as t he sole means for clini conrad diagnosis or pa tient management decisions.Perfo rmed By: BENITA [address] [place], [place] [address]Z aboratory Director: Nai Rushing MD [place] Chacortasanta ana health centerWest Nile virus antibody panel, [id number] 17:17:47 Test Item Value Reference Range Interpretation Comments West Nile IgG, CSF 0.09 See_Comment INTERPRET YOLANDA INFORMATION: (test code = [place] [address]-4) DARSHANA, CSF 1.2 9 IV or less [...] Nile virus-specific IgG in CSF samples in [facility] there is a clinical suspic ion of West Nile Virus infe ction. This test should not be used solely for heladio titative purposes, nor la rojas the results be used without correlation to clinical history or othe r data. Because other m embers of the Flaviviridae fa priscila, such as [place] encep halitis virus, show extensive cross-reactivit y [...] developed and c haracteristics determined by A [facility]. S ee Compliance Statement B: ar E-Diversify Yourself/Zuffle [Automated mess age] The system which ge nerated this result transmit leon reference range: <=1.29 I V. The reference range was not used to interpret th is result as normal/abnormal . West Nile IgM, CSF 0.02 See_Comment INTERPRET YOLANDA INFORMATION: (test code = [place] [address]-2) DARSHANA, CSF0.89 IV or less ...... Negative [...] Nile virus-specific IgM in CSF samples in [facility] there is a clinical suspic ion of West Nile virus infe ction. This test should not be used solely for heladio titative purposes, nor s bob the results be used without correlation to clinical history or othe r data. Because other m embers of the Flaviviridae fa priscila, such as [place] encep halitis virus, show extensive cross-reactivit y [...] developed and c haracteristics determined by A [facility]. S ee Compliance Statement B: [email or web address]/Cuedd erformed By: [employer] [address] [place], [place] [address]Webspurbrt Director: Nai Rushing MD [Automated mess age] The system which ge nerated this result transmit leon reference range: <=0.89 I V. The reference range was not used to interpret th is result as normal/abnormal . [place] [facility] culture, aerobic & yfptcrxaz2852-92-70 05:33:06 Test Item Value Reference Range Interpretation Comments Blood culture No growth Specimen isolate (test after 5 days InformationSpe danvers state hospitalen code = 600-7) of Source: BloodS pecimen incubation. Site: Antecubit al, right [place] MethodistLyme disease reflexive panel, [id number] 23:48:04 Test Item Value Reference Range Interpretation Comments B. burgdorferi Abs 0.08 See_Comment When the Borrelia DARSHANA, CSF (test code burgdo rferi Abs, Total by = 78709-3) DARSHANA result is negative, no further test [...] BENITA stone. See Compliance Stat ement B: [email or web address]/CSP erformed By: BENITA Whitten [address] [place] [address]Qyuoywp ory Director: Nai Rushing MD [Automated m essage] The system which ge nerated this result tra nsmitted reference range : <=0.99. The reference r gee was not used to int erpret this result as crow l/abnormal. 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 IV therapy Location: Left basilic Device Type:Non-valved Catheter Lumen(s): Single lumen Catheter size: 3 Fr Catheter to vein ratio: 24%MidLine Characteristics: Catheter Brand: SL PROVENA MIDLINE Internal Catheter Length (cm): 12 TotalCatheter Length (cm): 12 Catheter Lot Number: [id number] Catheter Expiration Date: 2Procedure details: Landmarks identified: [...] Patient tolerance of procedure: Tolerated well, no immediatecomplicationsNew [place] MethodistVDRL, CSF axgnif4185-96-04 02:23:37 Test Item Value Reference Range Interpretation Comments VDRL, CSF screen (test code = Non-reactive Non-reactive 3046) [facility] duplex venous upper snvbplryu1881-78-83 22:03:00Interface, Radiology Results In - 02/07/2020 10:03 PM CDT Vascular Ultrasound Laboratory Upper Extremity Venous [address] [address] Pat.Name: SNOW ARGUETA.ID: [id number] .Date: 02/07/2020 Refer.MD: MICHAEL MADDOX MD Exam Time: 4:33:00 PM Study Type:UE Venous Height: 66in Weight: 220lb BSA: 2.08 m2 Age: 7 1985,34Y Sex: FEMALE Sonogrphr: Ryan TorresANGELIQUE Pat. Stat.:Inpatient Room: CA58-2882-V Tape Vol: GELY, [facility] - 4: 59790 Echo Event ID:[id number] Order ID: [id number] Reason for Study:Right arm pain and swelling. [...] FINDINGS:-- Signed 02/07/2020 10:03 PMChaz Obrien MD, [facility] MethodistOligoclonal banding, CZQ4922-68-23 15:44:13 Test Item Value Reference Range Interpretation Comments Protein, CSF (test code 24 mg/dL 15-45 = 2880-3) Prealbumin, CSF (%) 6.4 % 3.5-11.1 (test code = 21324-9) Albumin, CSF (test code 66.1 % 40.8-66.2 = 59247-6) Alpha 1, CSF (%) (test 2.4 % 2.3-6.4 code = 00459-8) Alpha 2, CSF (%) (test 6.1 % 6.1-12.6 code = 71998-7) Beta, CSF (%) (test 13.1 % 11.7-24.1 code = 14557-6) Gamma, CSF (%) (test 5.9 % 5.6-12.2 code = 21192-5) CSF extended See Comment An essentially interpretation (test normal CSF protein code = 97781-9) study. No oligoclonal ban ds seen. CSF interpretation See Comment Miguel Boyd, PhD; (test code = 1163) MD [place] Tafoya MethodistEnterovirus by IOZ0622-54-44 15:38:15 Test Item Value Reference Range Interpretation Comments Enterovirus PCR (test See link below Not-Detected Case Number: code = 62856-8) for PDF Lab [id number] Report [place] MethodistEpstein Noble Virus (EBV) by [id number] 15:13:17 Test Item Value Reference Range Interpretation Comments Albert Noble Not-Detected Not-Detected virus, PCR (test copies/mL code = 5005-4) Albert Noble See link below Case Number: virus, PCR (test for PDF Lab [id number] code = 1340) Report [place] MethodistVaricella zoster by [id number] 14:54:16 Test Item Value Reference Range Interpretation Comments VZV result (test Not-Detected Not-Detected code = 78259-5) copies/mL Varicella zoster, See link below Case Num rupal: pcr (test code = for PDF Lab [id number] 2 124) Report [place] ChacortaistCSF [id number] 14:08:32 Test Item Value Reference Range Interpretation Comments CSF culture No growth Specimen isolate (test after 3 days. InformationSp ecimen code = 606-4) Source: CSF (S naseem Fluid)Specimen Site: CSF (spinal fluid) [place] MethodistFlow cytometry datactfwze5739-52-88 09:52:18 Test Item Value Reference Range Interpretation Comments Case number (test code = [id number]) Flow cytometry evaluation See link below for (test code = 7357076) PDF Lab Report [place] NEED PHYS SKILL,DX OR [id number] 09:18:07Javier Kolb RN 02/07/2020 9:21 AMMidline Date/Time: [...] Catheter Length (cm): 12 Catheter Lot Number: [id number] Catheter Expiration Date: 1Procedure details: Landmarks identified: [...] tolerance of procedure: Tolerated well, no immediate complicationsNew [place] ChacortaistB. burgdorferi Abs total, nryhv1548-08-67 08:01:42 Test Item Value Reference Range Interpretation [...] tibody to B. burgdorferi detected.Perfor med By: [facility] [place], [place] [address]Y aboratory Director: MD [place] MilianECG 12 hdau6109-64-38 12:49:19 Test Item Value Reference Range Interpretation Comments Ventricular rate (test 78 code = 253) Atrial rate (test code 78 = 255) NC interval (test code 144 = 266) QRSD [...] of 04-FEB-2020 04:50,-No significant change was found- [place] WorleyXR Chest 1 Vw Ynvrlxtx1577-69-40 22:09:52Hm Interface, Radiology Results Incoming - 02/05/2020 10:12 PM CDTEXAMINATION: XR CHEST 1 VW PORTABLECLINICAL HISTORY: 34 years Female chest pressure on exertionCOMPARISON: None.IMPRESSION:No acute cardiopulmonary disease.FINDINGS:The cardiomediastinal silhouette, lungs, and regional skeletal structures are within normal limits for age. [facility]-ZY32IPECEjgeits MethodistHerpes simplex virus by UXW6061-11-87 20:12:15 Test Item Value Reference Range Interpretation Comments Herpes virus, PCR Not-Detected Not-Detected (test code = 78770-7) Herpes virus, PCR See link below Case Num rupal: (test code = 1523) for PDF Lab [id number] Report [place] MethodistCytology (non-gynecological) tqxvfny5738-59-81 18:15:16 Test Item Value Reference Range Interpretation Comments Case number (test code = [id number]) Cytology See link below for (non-gynecological) PDF Lab Report report (test code = 1178) Result status (test code This is Final Report = [id number]) for [id number] [place] MethodistCryptococcal antigen, qmwodb3546-54-73 17:47:33 Test Item Value Reference Interpretation Comments Range Cryptococcal Ag Negative - No Specimen (test code = Cryptococcus InformationSpec imen 9820-2) antigen detected. Source: CS F (Spinal Fluid)Specimen Site: CSF (spinal flu id) [place] WhatleyHcodosjufFRG9774-97-59 13:52:17 Test Item Value Reference Range Interpretation Comments ELMER screen (test Negative Negative Test perfor med using NOVA code = 550) Lite DAPI ELMER k it (Indirect Immunofluoresce nce Assay) for Anti-Nuclea r Antibody on [employer] QUANTA-Ly ser 160 Analyzer. [place] WhatleyginetteCSF cell count with gdfxsiccfzkb0753-64-99 13:21:52 Test Item Value Reference Range Interpretation Comments Color, CSF (test code = Colorless 87212-4) Appearance, CSF (test Clear Correc leon result code = 04267-6) called to Maximiliano Mallory/Stefano T18 02/04/2020 13: 21 Corrected resul t; previously repo rted as Slightly haz y on 02/04/2020 at 1 1:19 by DH2 RBC, CSF (test code = 33 See_Comment H [Auto mated message] 64210-3) The system [employer] generated this result transmit leon reference range : 0 - 1 /CMM. The reference range was not used to interpret this result as normal/abnormal . WBC, CSF (test code = 1 See_Comment [Auto mated message] 70788-1) The system [employer] generated this result transmit leon reference range : 0 - 5 /CMM. The reference range was not used to interpret this result as normal/abnormal . CSF mononuclear cell 1/CMM (test code = 59375-7) Lab Interpretation (test Abnormal code = 43271-7) [facility] synthesis rate vsxdi7630-13-34 13:09:21 Test Item Value Reference Range Interpretation Comments IgG albumin ratio, SEE COMMENT 0.00-0.23 Footnote- -------- CSF (test code = 1588) IgG index, CSF (test SEE COMMENT 0.01-0.63 Footnot e--------- code = 92141-9) IgG synthetic rate SEE COMMENT See_Comment Footnote- -------- (test code = [Automated mess age] 58399-0) The system [employer] generated this result transmitted ref erence range: -9.90 - 3.30 mg/day. The ref erence range was not u sed to interpret this result as normal/abnor mal. Q-albumin ratio, CSF SEE COMMENT 2.00-7.50 Footnot e--------- (test code = 1756-6) IgG, CSF (test code SEE COMMENT 1-3 Footnote --------- = 2464-6) Albumin, CSF (test SEE COMMENT 1030 Footnote- -------- code = 35398-0) IgG (test code = SEE COMMENT 700-1600 Footnote--- ------Corre 2465-3) cted result; previously repo rted as 852 on 02/04/20 20 at 12:58 by I/AUT Albumin, S (test SEE COMMENT 4869-1532 Footnote--- ------DUPLI code = 09587-1) DRU ORDER.C orrected result; previou sly reported as 370 0.0 on 02/04/2020 at 1 2:58 by I/AUT [place] MethodistGram fjryo6199-78-92 12:47:25 Test Item Value Reference Range Interpretation Comments Gram stain No WBC's or Specimen isolate (test organisms seen. Information Specimen code = 1469) Source: CSF (Sp inal Fluid)Specimen Site: CSF (spinal fluid) Turner WorleyGlucose level, [id number] 11:17:32 Test Item Value Reference Range Interpretation Comments Glucose, CSF (test code = 2342-4) 90 mg/dL 40-70 H Lab Interpretation (test code = Abnormal 22275-6) [place] MethodistEEG (routine)2020-02-04 10:51:25EEG AWAKE AND ASLEEP [...] or epileptiform activity was recorded. ICD-10 Code: V426Hlwhftn MethodistIR Lumbar Puncture by Radiology 2020-02-04 10:23:15Hm [...] lumbar puncture.Opening pressure was 21 cm of water.[facility]-[id number] MethodistUrine drugs of abuse screen 2020-02-04 03:10:50 Test Item Value Reference Interpretation Comments Range Amphetamine screen, Negative urine (test code = 3349-8) Barbiturate screen, Negative urine (test code = 3377-9) Benzodiazepine Negative screen, urine (test code = 3390-2) Cocaine screen, Negative urine (test code = 3397-7) Methadone Negative metabolite (EDDP), urine (test code = 98087-6) Opiates screen, Positive A urine (test code = 3879-4) Oxycodone screen, Negative urine (test code = 44794-4) Phencyclidine Negative screen, urine (test code = 3936-2) Tricyclic screen, Negative urine (test code = 70541-1) Cannabinoid screen, Negative Drug scr een minimum [...] ired. Lab Interpretation Abnormal (test code = 22405-0) [place] [facility] W Wo [id number] 22:36:27Hm Interface, Radiology Results - 02/03/2020 10:39 [...] are preserved.IMPRESSION:Unremarkable MRI of the brain and orbits.[facility]-[id number] CaodaismVitamin D 25 hydroxy [id number] 20:37:03 Test Item Value Reference Range Interpretation Comments Vitamin D, 48.7 ng/mL 30-150 This assay repo rts the 25-hydroxy (test sum of 25-h ydroxy code = 1988-) vitamin D3 an d 25-hydroxy gokul min [...] alfredito contact lab for alternative met hods. [place] MethodistSyphilis total [id number] 20:32:43 Test Item Value Reference Range Interpretation Comments Syphilis total Non-reactive Non-reactive No serologica l antibody (test code evidence of syphilis = 6194) infection. [place] MethodginetteHIV Ag/Ab [id number] 20:28:37 Test Item Value Reference Range Interpretation Comments HIV Ag/Ab combination (test code Non-reactive Non-reactive = 5299) [place] MethodistVitamin B12 [id number] 19:35:13 Test Item Value Reference Range Interpretation Comments Vitamin B12 (test 541 pg/mL 211-946 Significan t overlap code = 2132-9) exists betwee n normal and deficiency states.However, most patients with deficiencies wi ll have Serum B12 <2 00 pg/mL. [place] MethodistFolate [id number] 19:35:13 Test Item Value Reference Range Interpretation Comments Folate (test code = 2284-8) 8.0 ng/mL 4.8-24.2 [place] MethodistSedimentation [id number] 19:34:55 Test Item Value Reference Range Interpretation Comments Sedimentation rate (test 7 See_Comment [A utomated message] code = 68158-3) The system w [employer] generated this result transmitted ref erence range: 0 - 20 m m/hr. The reference r gee was not used to int erpret this result as normal/abnormal . [place] MethodistT4, [id number] 19:25:51 Test Item Value Reference Range Interpretation Comments T4, free (test code = 3024-7) 1.0 ng/dL 0.9-1.7 [place] [id number] 19:25:51 Test Item Value Reference Range Interpretation Comments T3 (test code = 3053-6) 70 ng/dL 80-200 L Lab Interpretation (test code = Abnormal 17318-1) [place] MethodistCortisol level, [id number] 19:25:00 Test Item Value Reference Range Interpretation Comments Cortisol, random 2 ug/dL Reference R anges are not (test code = 2143-6) establi shed for non-timed Cortisol levels .Reference Range for Timed Cortisol: 6 - 10 AM 6 - 18 ug/dl 4 - 8 PM 3 - 11 ug/ dl [facility] MethodistThyroid stimulating [id number] 19:25:00 Test Item Value Reference Range Interpretation Comments TSH (test code = 1.12 See_Comment [Automated message] The 3016-3) system which [employer] nerated this result transmit leon reference range : 0.27 - 4.20 uIU/mL. Th e reference range was not u sed to interpret this result as normal/abnormal . [place] MethodisthCG quantitative, [id number] 19:20:00 Test Item Value Reference Range Interpretation Comments hCG quantitative, <1 See_Comment Reference range for HCG serum (test code = Quant ashutosh lies to males and 50708-5) non-fem ales.Post Menopausal 0.0 - 8.1 mIU/mL [Automated mes forest] The system which [employer] nerated this result transmit leon reference range : 0 - 5 mIU/mL. The ref erence range was not used to interpret this result as normal/abnormal . [place] MethodistHomocystine, [id number] 19:14:45 Test Item Value Reference Range Interpretation Comments Homocysteine (test 6.4 umol/L 0-15 The risk for coronary code = 29060-4) vascular dis ease increases progressively w ith homocysteine concentration. A 3.4 times greater r isk is associated with a homocysteine concentration o f greater than 15.8 umol/L as jt red to a concentration below 14.1 umol/L. [place] MethodistRheumatoid [id number] 19:14:45 Test Item Value Reference Range Interpretation Comments Rheumatoid factor (test <10 See_Comment [Au tomated message] The code = 06679-1) system which generated this result tra nsmitted reference range : 0 - 13 IU/mL. The refe rence range was not u sed to interpret this result as normal/abnormal . [place] MethodistCT Head Wo [id number] 16:17:18Hm Interface, Radiology Results 02/03/2020 4:20 PM [...] are intact.IMPRESSION:No CT evidence for acute intracranial abnormality.[id number] Caodaism
[2020-06-15 15:09] LABS: Absolute Lymphocytes (CBC) 2.2 K/uL (0.7-4.9); Basophils % 0.6 % (0-1.3); Hematocrit 39.7 % (36.0-45.0); Lymphocytes % 25.9 % (15.3-44.8); MPV 10.8 fL (7.6-11.3); RBC Red Blood Cell Count 4.63 M/uL (3.86-4.86)
[2020-06-15 15:10] LABS: Protime INR 1.21
--- NOTE | 2020-06-15 15:21 | RAD REPORT ---
EXAM DESCRIPTION: CT - Chest For Pe Angio - 06/15/2020 2:55 pm CLINICAL HISTORY: Chest pain COMPARISON: 2019 TECHNIQUE: Dynamically enhanced axial 3 mm thick images of the chest were obtained during administra tion of <100> mL Isovue 370 IV contrast. Coronal and oblique reconstruction images were generated and reviewed. Exam utilizes a protocol for optimal evaluation of pulmonary arterial tree. Maximum intensity projections 3D imaging was utilized All CT scans are performed using dose optimization technique as appropriate and may include automated exposure control or mA/KV adjustment according to patient size. FINDINGS: A pulmonary embolus is not seen. A thoracic aortic aneurysm is not noted. A pleural effusion is not seen. A pericardial effusion is not seen. A lung consolidation is not present. Fatty liver IMPRESSION: Negative for a pulmonary embolism.
[2020-06-15 15:30] LABS: ALT/SGPT 45 U/L (12-78); AST/SGOT 19 U/L (15-37); Albumin 4.1 g/dL (3.4-5.0); Alkaline Phosphatase 64 U/L (45-117); BUN Blood Urea Nitrogen 14 mg/dL (7-18); Bicarbonate 21 mmol/L (21-32); Bilirubin Direct 0.1 mg/dL (0-0.2); Bilirubin Total 0.4 mg/dL (0.2-1.0); Glucose Level 93 mg/dL (74-106); Magnesium 2.3 mg/dL (1.8-2.4); NT PRO-BNP 11 pg/mL (<125); Potassium 3.7 mmol/L (3.5-5.1); Protein, Total 7.4 g/dL (6.4-8.2); Sodium Level 139 mmol/L (136-145); Troponin (Emerg Dept Use Only) < 0.02 ng/mL (0.0-0.045)
[2020-06-15] MEDS ORDERED: MORPHINE 4 MG/ML SYR ONE (15:45)
--- NOTE | 2020-06-15 15:50 | RAD REPORT ---
EXAM DESCRIPTION: Mariusz Single View06/15/2020 2:32 pm CLINICAL HISTORY: Chest pain COMPARISON: June 09, 2020 FINDINGS: The lungs appear clear of acute infiltrate. The heart is normal size IMPRESSION: No acute abnormalities displayed
--- NOTE | 2020-06-15 16:05 | ER ---
Nurse's Notes [facility] Name: Snow Argueta Age: 34 yrs Sex: Female : 1985 Arrival Date: 06/15/2020 Time: 13:59 Bed 30 Private MD: Diagnosis: Chest pain, unspecified Presentation: 06/15 13:59 Chief complaint: EMS states: pt coming from home c/o chest pain that radiates to the zb right side , shortness of breathe, and difficulty breathing x1 day. patient has history of blood clots, patient was here last night for blood clot in the right arm. currently not on blood thinners. Coronavirus screen: At this time, the client does not indicate any symptoms associated with coronavirus-19. Ebola Screen: No symptoms or risks identified at this time. Initial Sepsis Screen: Does the patient meet any 2 criteria? No. Patient's initial sepsis screen is negative. Does the patient have a suspected source of infection? No. Patient's initial sepsis screen is negative. Risk Assessment: Do you want to hurt yourself or someone else? Patient reports no desire to harm self or others. Onset of symptoms was June 14, 2020. 13:59 Acuity: LEONEL 3 zb 13:59 Method Of Arrival: EMS: [facility] zb Triage Assessment: 14:08 General: Appears in no apparent distress. uncomfortable, Behavior is cooperative, zb anxious. Pain: Complains of pain in chest Pain radiates to anterior aspect of right upper chest and right breast Pain currently is 10 out of 10 on a pain scale. Quality of pain is described as heavy, pressure, tightness Pain began 1 day ago. Is continuous, Alleviated by nothing. Also complains of nausea. EENT: No signs and/or symptoms were reported regarding the EENT system. Neuro: Level of Consciousness is awake, alert, obeys commands, Oriented to person, place, time, situation, Reports dizziness. Cardiovascular: Capillary refill is > 3 seconds in bilateral Patient's skin is warm and dry. Respiratory: Reports shortness of breath pain with respiration Airway is patent Respiratory effort is even, unlabored, Respiratory pattern is regular, symmetrical, Breath sounds are diminished bilaterally. Onset: The symptoms/episode began/occurred yesterday, the patient has mild shortness of breath. GI: Abdomen is round non-distended, Bowel sounds present X 4 quads. Abd is soft and non tender X 4 quads. Reports nausea. : No signs and/or symptoms were reported regarding the genitourinary system. Derm: Skin is intact, is healthy with good turgor, Skin is dry, Skin is normal, Skin temperature is warm. Musculoskeletal: Range of motion: intact in all extremities. Historical: - Allergies: 14:07 Cephalexin; zb 14:07 Gadavist; zb 14:07 Latex, Natural Rubber; zb 14:07 Zofran; zb - Home Meds: 14:07 Pepcid Oral [Active]; Trokendi XR Oral [Active]; Vyvanse Oral [Active]; zb - PMHx: 14:07 ADD/ADHD; Blood Clot on R arm; Endometrosis; epilepsy; GERD; Leukemia; Pancreatitis; zb - PSHx: 14:07 Cholecystectomy; Appendectomy; zb - Immunization history:: Adult Immunizations up to date. - Social history:: Smoking status: Patient denies any tobacco usage or history of. Screenin:11 Abuse screen: Denies threats or abuse. Denies injuries from another. Nutritional zb screening: No deficits noted. Tuberculosis screening: No symptoms or risk factors identified. Fall Risk None identified. Assessment: 14:07 Reassessment: See the triage note. zb 14:14 Reassessment: ECP at bedside. zb 15:00 Reassessment: Patient appears in no apparent distress at this time. Patient and/or zb family updated on plan of care and expected duration. Pain level reassessed. Patient is alert, oriented x 3, equal unlabored respirations, skin warm/dry/pink. pt c/o of right side chest pain .ECP notified. 15:56 Reassessment: ECP at bedside. zb 15:59 Reassessment: 1L of nc placed per patient request. zb Vital Signs: 13:59 BP 109 / 80; Pulse 83; Resp 16; Temp 97.6; Pulse Ox 99% on R/A; Weight 92.53 kg; Height zb 5 ft. 6 in. (167.64 cm); Pain 10/10; 14:30 BP 103 / 89; Pulse 83; Resp 18; Pulse Ox 100% on R/A; zb 15:30 BP 109 / 74; Pulse 88; Resp 20; Pulse Ox 98% on 1 lpm NC; zb 13:59 Body Mass Index 32.93 (92.53 kg, 167.64 cm) zb ED Course: 13:59 Patient arrived in ED. zb 13:59 Mich Carrion PA is PHCP. m 13:59 Zach Shahid MD is Attending Physician. jmm 14:06 Triage completed. zb 14:11 Fall risk band placed. Placed in gown. Bed in low position. Call light in reach. Side zb rails up X 1. court recording monitor on. Pulse ox on. NIBP on. Door closed. Noise minimized. 14:11 Arm band placed on. zb 14:19 Christin Birch, EBONIE is Primary Nurse. zb 14:33 XRAY Chest (1 view) In Process Unspecified. EDMS 14:46 Basic Metabolic Panel Sent. zb 14:55 CT Chest For PE Angio In Process Unspecified. EDMS 16:38 No provider procedures requiring assistance completed. IV discontinued, intact, zb bleeding controlled, No redness/swelling at site. Pressure dressing applied, IV from EMS. Administered Medications: 15:30 Drug: morphine 4 mg Route: IVP; Site: right antecubital; zb 16:25 Follow up: Response: No adverse reaction; Marked relief of symptoms; RASS: Alert and zb Calm (0) 16:21 Drug: Ketorolac 30 mg Route: IVP; Site: right antecubital; zb 16:26 Follow up: Response: No adverse reaction; Marked relief of symptoms; RASS: Alert and zb Calm (0) Outcome: 16:04 Discharge ordered by . romy 16:38 Discharged to home ambulatory. zb 16:38 Condition: stable 16:38 Discharge instructions given to patient, family, Instructed on discharge instructions, follow up and referral plans. Demonstrated understanding of instructions, follow-up care. 16:39 Patient left the ED. zb Signatures: Dispatcher [employer] EDMS Mich Carrion PA PA jmm Brown, Zipporah, RN RN zb Corrections: (The following items were deleted from the chart) 16:25 16:24 Response: No adverse reaction; Marked relief of symptoms zb zb
--- NOTE | 2020-06-15 16:06 | EDPHYS ---
Physician Documentation [facility] Name: Snow Argueta Age: 34 yrs Sex: Female : 1985 Arrival Date: 06/15/2020 Time: 13:59 Bed 30 Private MD: ED Physician Zach Shahid HPI: 06/15 14:25 This 34 yrs old Female presents to ER via EMS with complaints of chest pain. m 14:25 The patient or guardian reports chest pain that is located primarily in the substernal [facility] area. The pain radiates to the right arm. Associated signs and symptoms: Pertinent positives: shortness of breath. The chest pain is described as aching, a pressure. Duration: The patient or guardian reports a single episode, that is still ongoing. Modifying factors: The symptoms are alleviated by nothing. the symptoms are aggravated by nothing. This is a 34 year old female with a history of DVT that presents to the ED with complaints of chest pain, shortness of breath beginning today. Patient diagnosed with DVT of the left arm yesterday and prescribed eliquis. Patient states the medication is not covered by her insurance. . Historical: - Allergies: 14:07 Cephalexin; zb 14:07 Gadavist; zb 14:07 Latex, Natural Rubber; zb 14:07 Zofran; zb - Home Meds: 14:07 Pepcid Oral [Active]; Trokendi XR Oral [Active]; Vyvanse Oral [Active]; zb - PMHx: 14:07 ADD/ADHD; Blood Clot on R arm; Endometrosis; epilepsy; GERD; Leukemia; Pancreatitis; zb - PSHx: 14:07 Cholecystectomy; Appendectomy; zb - Immunization history:: Adult Immunizations up to date. - Social history:: Smoking status: Patient denies any tobacco usage or history of. ROS: 14:25 Constitutional: Negative for fever, chills, and weight loss, Respiratory: Negative for jmm shortness of breath, cough, wheezing, and pleuritic chest pain. 14:25 Cardiovascular: Positive for chest pain. 14:25 All other systems are negative. Exam: 14:25 Constitutional: This is a well developed, well nourished patient who is awake, alert, jmm and in no acute distress. Head/Face: atraumatic. Eyes: EOMI, no conjunctival erythema appreciated ENT: Moist Mucus Membranes Neck: Trachea midline, Supple Chest/axilla: Normal chest wall appearance and motion. Cardiovascular: Regular rate and rhythm. No edema appreciated Respiratory: Normal respirations, no respiratory distress appreciated Abdomen/GI: Non distended, soft Back: Normal ROM Skin: General appearance color normal MS/ Extremity: Moves all extremities, no obvious deformities appreciated, no edema noted to the lower extremities Neuro: Awake and alert, normal gait Psych: Behavior is normal, Mood is normal, Patient is cooperative and pleasant Vital Signs: 13:59 BP 109 / 80; Pulse 83; Resp 16; Temp 97.6; Pulse Ox 99% on R/A; Weight 92.53 kg; Height zb 5 ft. 6 in. (167.64 cm); Pain 10/10; 14:30 BP 103 / 89; Pulse 83; Resp 18; Pulse Ox 100% on R/A; zb 15:30 BP 109 / 74; Pulse 88; Resp 20; Pulse Ox 98% on 1 lpm NC; zb 13:59 Body Mass Index 32.93 (92.53 kg, 167.64 cm) zb MDM: 14:13 Patient medically screened. [facility] 15:58 Data reviewed: vital signs, nurses notes. Counseling: I had a detailed discussion with romy the patient and/or guardian regarding: the historical points, exam findings, and any diagnostic results supporting the discharge/admit diagnosis, lab results, radiology results, the need for outpatient follow up, to return to the emergency department if symptoms worsen or persist or if there are any questions or concerns that arise at home. ED course: Labs unremarkable. EKG NSR, CTA negative. Social work provided the patient with a voucher for [employer]. Patient is advised to follow up with pcp and otherwise given strict return precautions. Patient understood and agrees with the plan of care. . 06/15 14:19 Order name: Basic Metabolic Panel [facility] 06/15 14:19 Order name: CBC with Diff; Complete Time: 15:22 [facility] 06/15 14:19 Order name: LFT's; Complete Time: 15:31 [facility] 06/15 14:19 Order name: Magnesium; Complete Time: 15:31 [facility] 06/15 14:19 Order name: NT PRO-BNP; Complete Time: 15:31 [facility] 06/15 14:19 Order name: PT-INR; Complete Time: 15:31 [facility] 06/15 14:19 Order name: Troponin (emerg Dept Use Only); Complete Time: 15:31 [facility] 06/15 14:19 Order name: XRAY Chest (1 view); Complete Time: 15:53 [facility] 06/15 14:19 Order name: EKG; Complete Time: 14:20 [facility] 06/15 14:19 Order name: Cardiac monitoring; Complete Time: 14:23 [facility] 06/15 14:19 Order name: Basic Metabolic Panel; Complete Time: 15:31 [facility] 06/15 14:21 Order name: CT Chest For PE Angio; Complete Time: 15:22 [facility] 06/15 14:19 Order name: EKG - Nurse/Tech; Complete Time: 14:23 [facility] 06/15 14:19 Order name: IV Saline Lock; Complete Time: 14:47 [facility] 06/15 14:19 Order name: Labs collected and sent; Complete Time: 14:46 [facility] 06/15 14:19 Order name: O2 Per Protocol; Complete Time: 14:46 [facility] 06/15 14:19 Order name: O2 Sat Monitoring; Complete Time: 14:46 jm Administered Medications: 15:30 Drug: morphine 4 mg Route: IVP; Site: right antecubital; zb 16:25 Follow up: Response: No adverse reaction; Marked relief of symptoms; RASS: Alert and zb Calm (0) 16:21 Drug: Ketorolac 30 mg Route: IVP; Site: right antecubital; zb 16:26 Follow up: Response: No adverse reaction; Marked relief of symptoms; RASS: Alert and zb Calm (0) Disposition: 06/15/20 16:04 Discharged to Home. Impression: Chest pain, unspecified. - Condition is Stable. - Discharge Instructions: Nonspecific Chest Pain. - Medication Reconciliation Form, Thank You Letter, Antibiotic Education, Prescription Opioid Use form. - Follow up: Private Physician; When: 2 - 3 days; Reason: Recheck today's complaints, Continuance of care, Re-evaluation by your physician. Addendum: 06/19/2020 05:52 Co-signature as Attending Physician, Zach Shahid MD I agree with the assessment and k dr plan of care. Signatures: Dispatcher [employer] [facility] Zach Shahid MD MD kdr Mickail, Joel, PA PA [facility] Christin Birch RN RN zb Corrections: (The following items were deleted from the chart) 06/15 14:47 14:21 Chest For PE Angio+CT.RAD.BRZ ordered. [facility] 16:03 15:58 ED course: Labs unremarkable. EKG NSR, CTA negative. I discussed. [facility] 16:39 16:04 06/15/2020 16:04 Discharged to Home. Impression: Chest pain, unspecified. zb Condition is Stable. Forms are Medication Reconciliation Form, Thank You Letter, Antibiotic Education, Prescription Opioid Use. Follow up: Private Physician; When: 2 - 3 days; Reason: Recheck today's complaints, Continuance of care, Re-evaluation by your physician. romy
[2020-06-15] MEDS ORDERED: KETOROLAC 30 MG/ML INJ ONE (16:31)
[2020-06-15 17:44] VITALS: TEMP 97.6
[2020-06-15 17:46] VITALS: BP 109/74; O2SAT 98
--- NOTE | 2020-06-16 14:12 | EKG ---
Test Date: 2020-06-15 Test Time: 14:09:29 Weight Inspector: MANUEL MEASUREMENT RESULTS: Intervals: Rate: 82 MT: 146 QRSD: 78 QT: 384 QTc: 448 [place]: P: 9 MT: 146 QRS: 23 T: 20 INTERPRETIVE STATEMENTS: Normal sinus rhythm Normal ECG Compared to ECG 06/09/2020 19:43:53 No significant changes Electronically Signed On 06-16-20 14:09:12 SHIFT NURSE MANAGER by Bryant Dickerson
== END 2020-06-15 16:39 | disposition home or self-care (01) ==
LOC: ER 13:52
DX: R07.9 Chest pain, unspecified (principal); Z86.718 Personal history of other venous thrombosis and embolism; Z79.01 Long term (current) use of anticoagulants; Z85.6 Personal history of leukemia; Z88.8 Allergy status to other drugs, medicaments and biological substances; Z91.040 Latex allergy status; Z91.048 Other nonmedicinal substance allergy status
CPT/HCPCS: 93005; 85025; 80048; 36415; 83735; 85610; 80076; 84484; 83880; 71275; 71045; 96375; 96374; 99284; Q9967

== ENCOUNTER 2020-06-19 18:29 | Emergency (ER) | payer OTHER ==
--- OUTSIDE RECORDS SUMMARY | 2020-06-19 18:33 | XMS REPORT | Continuity of Care Document ---
:1985 Author Organization [facility] t Address 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, leukemia, 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) epileptic seizure (disorder) Active Problem 06/18/2020 [facility] History of Problem Active 2020-06-18 M emoria - * 01:57:48 l leukemia History Rupal nn (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) (context-d ependent category) Active Problem 06/18/2020 [facility] Headache Problem Active 2020-06-18 Mem oria (finding) 01:57:48 l Headache Murray n (finding) Active Problem 06/18/2020 [facility] Simple Problem Active 2020-06-18 Memor ia obesity 01:57:48 l (disorder) Simple Herm zay obesity (disorder) Active Problem 06/18/2020 [facility] Backache Problem Active 2020-06-18 Mem oria (finding) 01:57:48 l Backache Murray n (finding) Active Problem 06/18/2020 [facility] Hemiplegia Problem Active 2020-06-18 M emoria (disorder) 01:57:48 l [place] Hemiplegia (disorder) Active Problem 06/18/2020 [facility] Visual Problem Active 2020-06-18 Memor ia disturbanc 01:57:48 l e Visual Ricardo (disorder) disturbanc e (disorder) Active Problem 06/18/2020 [facility] Disorienta Problem Active 2020-06-18 M emoria leon 01:57:48 l (finding) Ricardo Disorienta leon (finding) Active Problem 06/18/2020 [facility] Seizure Problem Active 2020-06-18 Unruly kieran disorder 01:57:48 l (disorder) Seizure Her sesay disorder (disorder) Active Problem 06/18/2020 [facility] Cervical Problem Active 2020-06-18 Mem oria radiculopa 01:57:48 l thy Cervical Murray n (disorder) radiculopa thy (disorder) Active Problem 06/18/2020 [facility] Allergies, Adverse Reactions, Alerts Allergy Allergy Status Severity Reaction(s) Onset Inactive Treating Comm ents Source Name Type Date Date Clinician cephalex cephalex Active Memori a in in l Ricardo Latex Latex Active Memoria l Ricardo Gadavist Gadavist Active Memori a l Ricardo Cephalex Adverse Active Info [facility] Zofran Adverse Active Info Not [facility] Reaction Available [facility] Family History Family Member Diagnosis Comments Start Date Stop Date Source Paternal grandfather Kidney cancer Victor Manuel Aguirre Social History Social Habit Start Date Stop Date Quantity Comments Source Sex Assigned At MD Charles on Social History 2018-10-01 2018-10-01 Cassie rojas 13:53:53 13:53:53 Medications Ordered Filled Start Stop Current Ordering Indication Dosage Frequency Signature Comments Components Source Medication Medication Date Date Medication? Clinician (SIG) Name Name 2019-04 Yes 100 mg = 1 Memori a topiramate 2-30 cap, PO, l 100 MG 21:09: Bedtime, # Rupal nn Extended 00 90 cap, 2 Release Refill(s), [id number], 167.64, cm, 04/19/20 14:37:00 [employer], Height, 104.545, kg, 04/19/20 14:37:00 [employer], Weight Famotidine 2019-04 Yes 40 mg, PO, M emoria 2-30 Daily, # l 20:40: 60 tab, 0 Clinton 00 Refill(s) Nulev 2019-04 Yes 0.125 mg, Memoria 2-30 PO, QID, 0 l 20:40: Refill(s) Clinton 00 Reglan 2019-04 Yes 0 Memoria 1-10 Refill(s) l 18:04: Ricardo 00 Vyvanse Vyvanse Yes Na Savage [address] [facility] 00[facility] oxcarbazepi Yes 300 mg = 1 Memoria ne 300 MG 9-06 tab, PO, l Oral Tablet 16:04: BID, # 180 Clinton [Trileptal] 19 tab, 3 Refill(s), [id number] Yes 100 mg = 1 Memori a topiramate 9-06 cap, PO, l 100 MG 16:04: Daily, # Ricardo Extended 10 90 cap, 3 Release Refill(s), Capsule Pharmacy: [[facility]] [id number] No 100 mg = 1 Memori a topiramate 9-04 cap, PO, l 100 MG 18:31: Daily, X Ricardo Extended 05 30 day, # Release 30 cap, 3 Capsule Refill(s), [[facility]] Pharmacy: [facility] [place] oxcarbazepi No 300 mg = 1 Memoria ne 300 MG 9-04 tab, PO, l Oral Tablet 18:31: BID, X 30 H ermann [Trileptal] 02 day, # 60 tab, 3 Refill(s), Pharmacy: [facility] lisdexamfet Yes 30 mg = 1 M emoria amine 8-09 cap, PO, l dimesylate 16:20: QAM, # 30 He rmann 30 MG Oral 00 cap, 0 Capsule Refill(s) [Vyvanse] omeprazole Yes 20 mg = 1 Me moria 20 mg oral 7-17 cap, PO, l delayed 00:27: Daily, # Murray n release 00 30 cap, 2 capsule Refill(s), Pharmacy: [facility] oxcarbazepi Yes 300 mg = 1 Memoria ne 300 MG 7-03 tab, PO, l Oral Tablet 18:01: BID, # 60 H ermann [Trileptal] 00 tab, 2 Refill(s), Pharmacy: [facility] 24 HR Yes 100 mg = 1 Memori a topiramate 6-28 cap, PO, l 100 MG 14:50: Daily, # Ricardo Extended 00 30 cap, 3 Release Refill(s), Capsule Pharmacy: [[facility]] [facility] topiramate Yes 25 mg = 1 Me moria 25 MG Oral 6-14 tab, PO, l Tablet 23:33: BID, # 60 Murray n [Topamax] 00 tab, 2 Refill(s), Pharmacy: [facility] Phenytoin Yes 200 mg = 2 Me moria sodium 100 6-13 cap, PO, l MG Extended 13:57: BID, # 120 Clinton Release 00 cap, 3 Capsule Refill(s), [Dilantin] Pharmacy: [facility] Alprazolam Yes 0.5 mg = [...] cap, 1 Capsule Refill(s) [Dilantin] VYVANSE 40 2016- Yes 1{tbl} Take 1 MD mg capsule 9-19 tablet by Andrea rosario 00:00: mouth n 00 daily. Immunizations Ordered Immunization Filled Immunization Date Status Commen ts Source Name Name Influenza Split Completed MD Charles on 00:00:00 Vital Signs Vital Name Observation Time Observation Value Comments Source Systolic (mm Hg) 2020-04-19 20:08:00 Unruly rial Ricardo Diastolic (mm Hg) 2020-04-19 20:08:00 Mem orial Ricardo Heart Rate 2020-04-19 20:08:00 [facility] [place] Respitory Rate 2020-04-19 20:08:00 Memori al Ricardo Height 2020-04-19 20:08:00 167.64 cm [facility] Ricardo Weight 2020-04-19 20:08:00 [facility] [place] BMI Calculated 2020-04-19 20:08:00 Memori al Ricardo Systolic (mm Hg) 2020-03-29 20:19:00 Unruly rial Clinton Diastolic (mm Hg) 2020-03-29 20:19:00 Mem orial [place] Heart Rate 2020-03-29 20:19:00 [facility] Ricardo Respitory Rate 2020-03-29 20:19:00 Memori al [place] Height 2020-03-29 20:19:00 167.64 cm [facility] Ricardo Weight 2020-03-29 20:19:00 [facility] [place] BMI Calculated 2020-03-29 20:19:00 Memori al Ricardo Systolic (mm Hg) 2020-02-29 17:31:00 Unruly rial Ricardo Diastolic (mm Hg) 2020-02-29 17:31:00 Mem orial [place] Heart Rate 2020-02-29 17:31:00 [facility] Ricardo Respitory Rate 2020-02-29 17:31:00 Memori al Ricardo Height 2020-02-29 17:31:00 167.64 cm [facility] Ricardo Weight 2020-02-29 17:31:00 [facility] Ricardo BMI Calculated 2020-02-29 17:31:00 Memori al Ricardo Systolic (mm Hg) 2018-12-23 18:03:00 Unruly rial Clinton Diastolic (mm Hg) 2018-12-23 18:03:00 Mem orial [place] Heart Rate 2018-12-23 18:03:00 [facility] Ricardo Respitory Rate 2018-12-23 18:03:00 Memori al Ricardo Height 2018-12-23 18:03:00 167.64 cm [facility] [place] Weight 2018-12-23 18:03:00 [facility] [place] BMI Calculated 2018-12-23 18:03:00 Memori al [place] BMI Calculated 2018-11-27 15:59:00 Memori al Ricardo Weight 2018-11-27 15:59:00 [facility] Ricardo Height 2018-11-27 15:59:00 167.64 cm [facility] Ricardo Heart Rate 2018-11-27 15:59:00 [facility] Ricardo Respitory Rate 2018-11-27 15:59:00 Memori al [place] Systolic (mm Hg) 2018-11-27 15:59:00 Unruly rial [place] Diastolic (mm Hg) 2018-11-27 15:59:00 Mem orial Ricardo Heart Rate 2018-10-16 14:19:00 [facility] [place] Respitory Rate 2018-10-16 14:19:00 Memori al Ricardo Systolic (mm Hg) 2018-10-16 14:19:00 Unruly rial Clinton Diastolic (mm Hg) 2018-10-16 14:19:00 Mem orial Ricardo BMI Calculated 2018-10-16 14:19:00 Memori al [place] Weight 2018-10-16 14:19:00 [facility] Ricardo Height 2018-10-16 14:19:00 167.64 cm [facility] Ricardo BMI Calculated 2018-10-01 13:18:00 Memori al Ricardo Weight 2018-10-01 13:18:00 [facility] [place] Height 2018-10-01 13:18:00 167.64 cm [facility] [place] Respitory Rate 2018-10-01 13:18:00 Memori al [place] Heart Rate 2018-10-01 13:18:00 [facility] [place] Systolic (mm Hg) 2018-10-01 13:18:00 Unruly rial Ricardo Diastolic (mm Hg) 2018-10-01 13:18:00 Mem orial Ricardo Procedures Procedure Date / Time Performed Performing Clinician Sourc e Tubal ligation [facility] [place] Encounters Start End Encounter Admission Attending Care Care Encounter Source Date/Time Date/Time Type Type Clinicians Facility Department ID 2020-06-14 2020-06-15 Outpatient MHMISCHER MHMISCHER [id number] 15:54:19 23:59:59 2020-06-12 2020-06-12 Outpatient [facility] [id number] [facility] 2020-06-12 2020-06-12 Outpatient [facility] [id number] [facility] 2020-06-10 2020-06-10 Outpatient FEDE, [facility] [id number] [place] 00:00:00 00:00:00 SHANT [address] 2020-06-09 2020-06-09 Outpatient [facility] [id number] [facility] 2020-06-09 2020-06-09 Outpatient [facility] [id number] [facility] 2020-06-04 2020-06-07 Inpatient LILY, [place] [id number] [place] 00:00:00 00:00:00 AMITKUMAR [address] 2020-05-31 2020-05-31 Outpatient Juliet, MHMISCHER MHMISCHER [id number] 11:30:00 23:59:59 David 12 Marck 2020-05-31 2020-05-31 Outpatient Juliet, MHMISCHER MHMISCHER [id number] 15:30:00 15:30:00 David 11 Marck 2020-04-19 2020-04-19 Outpatient Juliet, MHMISCHER MHMISCHER [id number] 14:00:00 23:59:59 David 10 Marck 2020-04-18 2020-04-18 Outpatient [facility] [id number] [facility] 2020-04-11 2020-04-11 Outpatient Juliet, MHMISCHER MHMISCHER [id number] 10:00:00 23:59:59 David 09 Marck 2020-03-29 2020-03-29 Outpatient Juliet, MHMISCHER MISCHER [id number] 14:00:00 23:59:59 David 08 Marck 2020-03-22 2020-03-22 Outpatient [facility] [id number] [facility] 2020-03-16 2020-03-16 Outpatient [facility] [id number] [facility] 2020-03-08 2020-03-08 Outpatient CHAVO BULL [facility] [id number] [place] 00:00:00 00:00:[address] 2020-03-07 2020-03-07 Outpatient [facility] [id number] [facility] 2020-02-29 2020-02-29 [facility] [id number] 11:15:00 23:59:59 David 07 Marck 2020-02-21 2020-02-21 Outpatient [facility] [id number] [facility] 2020-02-17 2020-02-17 Outpatient [facility] [id number] [facility] 2020-02-12 2020-02-16 Inpatient KEVIN [facility] [id number] [place] 00:00:00 00:00:00 BLESSING [address] 2020-02-15 2020-02-15 Outpatient Juliet, MISCHER MISCHER [id number] 09:15:00 09:15:00 David 06 Marck 2020-02-09 2020-02-09 Outpatient [facility] [id number] [facility] 2020-02-03 2020-02-08 Inpatient JUDY, [facility] [id number] [place] 00:00:00 00:00:00 MICHAEL [address] 2020-01-17 2020-01-17 Outpatient [facility] [id number] [facility]00 [facility] Clin[facility] 2019-12-14 2019-12-14 [facility] [id number] [facility] 10:48:00 10:48:00 t Travel Desiya s - [employer] [facility] Medicine Outpati ent Clinics 2019-11-23 2019-11-23 [facility] [id number] 09:00:00 09:00:00 t Travel Desiya s [employer] [facility] Clinics 2019-11-23 2019-11-23 [facility] [id number] [facility] 08:05:00 08:05:00 t [facility] Pay with a [employer] [facility] Clin[facility] 2019-10-15 2019-10-15 [facility] [id number] 08:44:00 08:44:00 t [employer]de[employer] [facility] 2019-09-07 2019-09-07 [facility] [id number] [facility] 11:56:00 11:56:00 t [facility] Pay with a [employer] [facility] Clinics 2019-08-13 2019-08-13 [facility] [id number] [facility] 10:20:00 10:20:00 t Endeca [facility] Clinics 2019-08-12 2019-08-12 [facility] [id number] 09:49:00 09:49:00 t Travel Desiya s [employer] [facility] Clinics 2019-06-15 2019-06-15 [facility] [id number] [facility] 15:24:00 15:24:00 t Endeca [facility] Clin[facility] 2019-06-09 2019-06-09 [facility] [id number] [facility] 08:40:00 08:40:00 t [facility] Pay with a Tweet [facility] Clinics 2019-06-03 2019-06-03 [facility] [id number] [facility] 10:52:00 10:52:[address] Luke s - Drive [facility] l Medicine Outpati ent Clinics 2019-05-28 2019-05-28 [facility] [id number] [facility] 16:20:00 16:20:[address] Luke s - Drive [facility] Medicine Outpat[facility] ent Clinics 2019-05-21 2019-05-22 Outpatient MISCHER MISCH [id number] 14:44:00 23:59:59 00 2019-04-28 2019-04-28 Outpatient Juliet [facility] [id number] 13:00:00 13:00:00 David Rick Acharya 2019-01-01 2019-01-01 [facility] [id number] [facility] 15:32:00 15:32:00 t Geff [employer] Luke s - Drive [facility] Out[facility] Clinics 2018-12-31 2018-12-31 [facility] [id number] 09:55:00 09:55:[address] Luke s - Drive [facility] Medicine l Medicine Outpati ent Clinics 2018-12-30 2018-12-30 [facility] [id number] [facility] 13:25:00 13:25:[address] Luke s - Drive [facility] Medicine l Medicine Outpati ent Clinics 2018-12-30 2018-12-30 [facility] [id number] [facility] 08:00:00 08:00:[address] Luke s - Drive [facility] Outpati [facility] Clinics 2018-12-29 2018-12-29 [facility] [id number] [facility] 09:42:00 09:42:[address] Luke s - Drive [facility] Outpati ent Clinics 2018-12-23 2018-12-23 Outpatient DEDE ChungSCHER MISCHER [id number] 13:15:00 23:59:59 David Catrina Acharya 2018-12-04 2018-12-04 [facility] [id number] [facility] 16:20:00 16:20:[address] Luke s - Drive [facility] Outpati ent Clinics 2018-11-30 2018-11-30 [facility] [id number] [facility] 10:08:00 10:08:00 t [facility] Outpati ent Clinics 2018-11-27 2018-11-27 Outpatient DEDE ChungSCHER MISCHER [id number] 10:45:00 23:59:59 David 03 [facility] 2018-11-27 2018-11-27 [facility] [id number] [facility] 13:00:00 13:00:00 t Ge[employer] s - Drive [facility] Outpati ent Clinics 2018-10-29 2018-10-29 [facility] [id number] [facility] 10:40:00 10:40:00 t [employer] s - Drive [facility] Out[facility] Clinics 2018-10-16 2018-10-16 Outpatient DEDE ChungSCHER MISCHER [id number] 09:00:00 23:59:59 David 02 [facility] 2018-10-02 2018-10-02 Outpatient DEDE ChungSCHER MISCHER [id number] 15:00:00 23:59:59 David 01 [facility] 2018-10-01 2018-10-01 Outpatient DEDE ChungSCHER MISCHER [id number] 08:15:00 23:59:59 David 00 [facility] 2018-09-30 2018-09-30 [facility] [id number] [facility] 13:00:00 13:00:00 t [employer] s - Drive [facility] Outpat[facility] Clinics 2018-08-31 2018-08-31 [facility] [id number] 11:00:00 11:00:00 t Geff [employer] s - Drive [facility] Out[facility] ent Clinics 2018-07-27 2018-07-27 [facility] [id number] 13:54:00 13:54:00 t Geff [employer] s - Drive [facility] Outpati ent Clinics 2018-07-23 2018-07-23 [facility] [id number] 08:53:00 08:53:00 t Travel Desiya s - [employer] [facility] Medicine Outpati ent Clinics 2018-07-23 2018-07-23 [facility] [id number] [facility] 08:15:00 08:15:00 t Travel Desiya s [employer] [facility] Outpati ent Clinics 2018-06-22 2018-06-22 [facility] [id number] [facility] 10:30:00 10:30:00 t Endeca [facility] Outpat[facility] Clinics 2018-05-04 2018-05-04 [facility] [id number] [facility] 12:00:00 12:00:00 t Endeca [facility] Clinics 2018-04-02 2018-04-02 [facility] [id number] [facility] 09:00:00 09:00:00 t Endeca [facility] Clinics Results This patient has no known results.
[2020-06-19 19:25] LABS: Absolute Lymphocytes (CBC) 2.3 K/uL (0.7-4.9); Basophils % 0.5 % (0-1.3); Hematocrit 39.8 % (36.0-45.0); Lymphocytes % 36.5 % (15.3-44.8); MPV 10.9 fL (7.6-11.3)
[2020-06-19] MEDS ORDERED: dexAMETHasone 10 MG/ML VIAL ONE (19:27)
[2020-06-19 19:40] LABS: BUN Blood Urea Nitrogen 11 mg/dL (7-18); Bicarbonate 24 mmol/L (21-32); Glucose Level 110 mg/dL (74-106); Potassium 3.5 mmol/L (3.5-5.1); Sodium Level 140 mmol/L (136-145); Troponin (Emerg Dept Use Only) < 0.02 ng/mL (0.0-0.045)
--- NOTE | 2020-06-19 19:59 | ER ---
Nurse's Notes [facility] Name: Snow Argueta Age: 34 yrs Sex: Female : 1985 Arrival Date: 06/19/2020 Time: 18:30 Bed 25 Private MD: Diagnosis: Chest pain on breathing Presentation: 06/19 18:44 Chief complaint: Patient states: Chest pain since last week. Was here last week and did ca1 not just get better. Chest pain radiates to neck and R arm. SOB with deep breathing and exertion. Has blood clot on L arm at this time and currently on Loveox. Coronavirus screen: Client denies travel out of the [place] in the last 14 days. shortness of breath, Client presents with at least one sign or symptom that may indicate coronavirus-19. Standard/surgical mask placed on the client. Provider contacted for isolation considerations. Ebola Screen: Patient negative for fever greater than or equal to 101.5 degrees Fahrenheit, and additional compatible Ebola Virus Disease symptoms Patient denies exposure to infectious person. Patient denies travel to an Ebola-affected area in the 21 days before illness onset. No symptoms or risks identified at this time. Initial Sepsis Screen: Does the patient meet any 2 criteria? No. Patient's initial sepsis screen is negative. Does the patient have a suspected source of infection? No. Patient's initial sepsis screen is negative. Risk Assessment: Do you want to hurt yourself or someone else? Patient reports no desire to harm self or others. Onset of symptoms was June 19, 2020. 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 - Social history:: Smoking status: Patient denies any tobacco usage or history of. Screenin:22 Abuse screen: Denies threats or abuse. Denies injuries from another. Nutritional zb screening: No deficits noted. Tuberculosis screening: No symptoms or risk factors identified. Fall Risk None identified. Assessment: 18:57 Reassessment: ECP at bedside. zb 19:00 General: Appears in no apparent distress. comfortable, Behavior is calm, cooperative, zb appropriate for age. Pain: Complains of pain in anterior aspect of right upper chest Pain does not radiate. Pain began 2-3 days ago. Neuro: Level of Consciousness is awake, alert, obeys commands, Oriented to person, place, time, situation, Reports dizziness, since the weekend. Cardiovascular: Heart tones S1 S2 present Capillary refill < 3 seconds Patient's skin is warm and dry. Respiratory: Airway is patent Respiratory effort is even, unlabored, Respiratory pattern is regular, symmetrical. GI: Abdomen is round Reports nausea. : No signs and/or symptoms were reported regarding the genitourinary system. EENT: No signs and/or symptoms were reported regarding the EENT system. Derm: Skin is intact, is healthy with good turgor, is fragile, Skin is dry, Skin is normal, Skin temperature is warm. Musculoskeletal: Circulation, motion, and sensation intact. Range of motion: intact in all extremities. 19:54 Reassessment: Patient appears in no apparent distress at this time. Patient and/or zb family updated on plan of care and expected duration. Pain level reassessed. Patient is alert, oriented x 3, equal unlabored respirations, skin warm/dry/pink. ECP at bedside. Vital Signs: 18:44 BP 112 / 80; Pulse 86; Resp 18 S; Temp 97.6(TE); Pulse Ox 100% on R/A; Weight 92.99 kg ca1 (R); Height 5 ft. 6 in. (167.64 cm) (R); Pain 10/10; 19:54 BP 110 / 77; Pulse 85; Resp 16; Pulse Ox 100% on R/A; zb 20:22 BP 116 / 78; Pulse 78; Resp 16; Pulse Ox 100% on R/A; zb 18:44 Body Mass Index 33.09 (92.99 kg, 167.64 cm) ca1 ED Course: 18:30 Patient arrived in ED. as 18:47 Triage completed. ca1 18:47 Arm band placed on right wrist. ca1 18:52 Sudha Hinkle FNP-C [facility]. kb 18:52 Matthew Ramirez MD is Attending Physician. kb 18:57 Christin Birch RN is Primary Nurse. zb 19:10 Initial lab(s) drawn, by ca, sent to lab. Inserted saline lock: 20 gauge in right sf antecubital area, using aseptic technique. Blood collected. 19:17 CBC with Diff Sent. sf 19:22 Patient has correct armband on for positive identification. classroom monitor on. Pulse zb ox on. NIBP on. 19:22 Patient maintains SpO2 saturation greater than 95% on room air. zb 19:30 EKG done, by ED staff, reviewed by Sudha MAIER. zb 19:57 Chest Single View XRAY In Process Unspecified. EDMS 20:21 No provider procedures requiring assistance completed. IV discontinued, intact, zb bleeding controlled, No redness/swelling at site. Pressure dressing applied. Administered Medications: 17:15 Drug: Decadron - Dexamethasone 10 mg Route: IVP; Site: right antecubital; zb 20:04 Follow up: Response: No adverse reaction zb 20:10 Drug: morphine 2 mg Route: IVP; Site: right antecubital; zb 20:20 Follow up: Response: Medication administered at discharge.; RASS: Alert and Calm (0) zb 20:10 Drug: Phenergan 6.25 mg Route: IVP; Site: right antecubital; zb 20:20 Follow up: Response: No adverse reaction zb Outcome: 19:58 Discharge ordered by . kb 20:21 Discharged to home ambulatory. zb 20:21 Condition: stable 20:21 Discharge instructions given to patient, Instructed on discharge instructions, follow up and referral plans. medication usage, Demonstrated understanding of instructions, follow-up care, medications, Prescriptions given X 1. 20:22 Patient left the ED. zb Signatures: Dispatcher [employer] EDMS Sudha Hinkle FNP-C FNP-Ckb Martinez, Amelia as Acob, Cheryl, RN RN ca1 Christin Birch RN RN zPedro Luis Barrientos, RN RN sf
--- NOTE | 2020-06-19 19:59 | EDPHYS ---
Physician Documentation [facility] Name: Snow Argueta Age: 34 yrs Sex: Female : 1985 Arrival Date: 06/19/2020 Time: 18:30 Bed 25 Private MD: ED Physician Matthew Ramirez HPI: 06/19 19:20 This 34 yrs old Female presents to ER via Ambulatory with complaints of Chest kb Pain. 19:23 The patient or guardian reports chest pain that is located primarily in the anterior kb chest wall, right. The pain radiates to the right shoulder. Associated signs and symptoms: The patient has no apparent associated signs or symptoms. The chest pain is described as aching. Duration: The patient or guardian reports a single episode, that is still ongoing. Modifying factors: The symptoms are alleviated by nothing. the symptoms are aggravated by deep breath, palpation of area. Severity of pain: At its worst the pain was moderate in the emergency department the pain is unchanged. The patient has not experienced similar symptoms in the past. The patient has been recently seen at the [facility] Emergency Department, last week, for similar complaints labs were performed, X-rays were performed, CT scan was performed. Pt reports right sided chest pain that started last week. Pain worse with deep inspiration and palpation. Pt was seen here 5 days ago and had normal blood work, chest xray and CT PE. Pain has been the same since leaving. Pt called PCP and was advised to come back to the ER because she cannot take antiinflammatories. Pt is on lovenox for current blood clot in left arm. 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 - Social history:: Smoking status: Patient denies any tobacco usage or history of. ROS: 19:20 Constitutional: Negative for fever, chills, and weight loss, Respiratory: Negative for kb shortness of breath, cough, wheezing, and pleuritic chest pain, Abdomen/GI: Negative for abdominal pain, nausea, vomiting, diarrhea, and constipation, MS/Extremity: Negative for injury and deformity, Skin: Negative for injury, rash, and discoloration, Neuro: Negative for headache, weakness, numbness, tingling, and seizure. 19:20 Cardiovascular: Positive for chest pain, Negative for edema, orthopnea, palpitations, paroxysmal nocturnal dyspnea. Exam: 19:17 Constitutional: This is a well developed, well nourished patient who is awake, alert, kb and in no acute distress. Head/Face: Normocephalic, atraumatic. Cardiovascular: Regular rate and rhythm with a normal S1 and S2. No gallops, murmurs, or rubs. Normal PMI, no JVD. No pulse deficits. Respiratory: Lungs have equal breath sounds bilaterally, clear to auscultation and percussion. No rales, rhonchi or wheezes noted. No increased work of breathing, no retractions or nasal flaring. Abdomen/GI: Soft, non-tender, with normal bowel sounds. No distension or tympany. No guarding or rebound. No evidence of tenderness throughout. Skin: Warm, dry with normal turgor. Normal color with no rashes, no lesions, and no evidence of cellulitis. MS/ Extremity: Pulses equal, no cyanosis. Neurovascular intact. Full, normal range of motion. Neuro: Awake and alert, GCS 15, oriented to person, place, time, and situation. Cranial nerves II-XII grossly intact. Motor strength 5/5 in all extremities. Sensory grossly intact. Cerebellar exam normal. Normal gait. 19:17 Chest/axilla: Inspection: normal, Palpation: tenderness, that is mild, of the anterior aspect of right upper chest, that partially reproduces the patient's complaints. 19:17 ECG was reviewed by the Attending Physician. Vital Signs: 18:44 BP 112 / 80; Pulse 86; Resp 18 S; Temp 97.6(TE); Pulse Ox 100% on R/A; Weight 92.99 kg ca1 (R); Height 5 ft. 6 in. (167.64 cm) (R); Pain 10/10; 19:54 BP 110 / 77; Pulse 85; Resp 16; Pulse Ox 100% on R/A; zb 20:22 BP 116 / 78; Pulse 78; Resp 16; Pulse Ox 100% on R/A; zb 18:44 Body Mass Index 33.09 (92.99 kg, 167.64 cm) ca1 MDM: 18:52 Patient medically screened. kb 19:20 Data reviewed: vital signs, nurses notes. Data interpreted: Pulse oximetry: on room air kb is 100 %. Interpretation: normal. 19:57 Counseling: I had a detailed discussion with the patient and/or guardian regarding: the kb historical points, exam findings, and any diagnostic results supporting the discharge/admit diagnosis, lab results, radiology results, the need for outpatient follow up, a family practitioner, to return to the emergency department if symptoms worsen or persist or if there are any questions or concerns that arise at home. ED course: Pt has appt with care transition coordinator on . 03 19:01 Order name: CBC with Diff kb 06/19 19:01 Order name: Basic Metabolic Panel; Complete Time: 19:46 kb 03 19:01 Order name: Troponin (emerg Dept Use Only); Complete Time: 19:46 kb 06/19 19:01 Order name: Chest Single View XRAY; Complete Time: 20:24 kb 03 19:02 Order name: CBC with Automated Diff; Complete Time: 19:27 EDMS 03 19:01 Order name: IV Start; Complete Time: 19:17 kb 06/19 19: Order name: EKG; Complete Time: 19:02 kb 03 19:01 Order name: EKG - Nurse/Tech; Complete Time: 19:08 kb EC:17 Rate is 72 beats/min. Rhythm is regular. QRS Jay is Normal. [place] interval is normal at kb 140 msec. QRS interval is normal at 84 msec. QT interval is normal at 384 msec. Administered Medications: 17:15 Drug: Decadron - Dexamethasone 10 mg Route: IVP; Site: right antecubital; zb 20:04 Follow up: Response: No adverse reaction zb 20:10 Drug: morphine 2 mg Route: IVP; Site: right antecubital; zb 20:20 Follow up: Response: Medication administered at discharge.; RASS: Alert and Calm (0) zb 20:10 Drug: Phenergan 6.25 mg Route: IVP; Site: right antecubital; zb 20:20 Follow up: Response: No adverse reaction zb Disposition: 06/20 07:02 Co-signature as Attending Physician, Matthew Ramirez MD. rn Disposition: 06/19/20 19:58 Discharged to Home. Impression: Chest pain on breathing. - Condition is Stable. - Discharge Instructions: Chest Wall Pain, [id number], Pleurisy, [id number]. - Prescriptions for Medrol (Joby) 4 mg Oral Tablets, Dose Pack - take 1 tablet by ORAL route as directed - follow package instructions; 1 packet. - Medication Reconciliation Form, Thank You Letter, Antibiotic Education, Prescription Opioid Use form. - Follow up: Emergency Department; When: As needed; Reason: Worsening of condition. Follow up: Private Physician; When: 2 - 3 days; Reason: Recheck today's complaints, Continuance of care, Re-evaluation by your physician. Signatures: Dispatcher [employer] EDMS Sudha Hinkle, FLUID PUMP OPERATOR-C FLUID PUMP OPERATOR-Ckb Matthew Ramirez MD MD rn Noah, EBONIE Noguera RN, Zipporah, RN RN zb Corrections: (The following items were deleted from the chart) 06/19 20:22 19:58 06/19/2020 19:58 Discharged to Home. Impression: Chest pain on breathing. zb Condition is Stable. Forms are Medication Reconciliation Form, Thank You Letter, Antibiotic Education, Prescription Opioid Use. Follow up: Emergency Department; When: As needed; Reason: Worsening of condition. Follow up: Private Physician; When: 2 - 3 days; Reason: Recheck today's complaints, Continuance of care, Re-evaluation by your physician. kb
--- NOTE | 2020-06-19 20:04 | RAD REPORT ---
EXAM DESCRIPTION: RAD - Chest Single View - 06/19/2020 7:57 pm CLINICAL HISTORY: CHEST PAIN Chest pain. COMPARISON: Chest Single View dated 06/15/2020; Chest Single View dated 06/09/2020; Chest Single View dated 06/03/2020; Chest Single View dated 02/12/2020 FINDINGS: Portable technique limits examination quality. The lungs are grossly clear. The heart is normal in size. No displaced fractures. IMPRESSION: No acute intrathoracic process suspected.
[2020-06-19] MEDS ORDERED: PROMETHAZINE INJ 25 MG/ML AMP ONE (20:24)
[2020-06-19] MEDS ORDERED: MORPHINE 2 MG/ML SYR ONE (20:25)
[2020-06-19 21:11] VITALS: TEMP 97.6; O2SAT 100
[2020-06-19 21:13] VITALS: BP 116/78
--- NOTE | 2020-06-20 06:22 | EKG ---
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
== END 2020-06-19 20:22 | disposition home or self-care (01) ==
LOC: ER 18:29
DX: R07.1 Chest pain on breathing (principal); Z85.6 Personal history of leukemia; Z88.1 Allergy status to other antibiotic agents; Z88.8 Allergy status to other drugs, medicaments and biological substances; Z86.718 Personal history of other venous thrombosis and embolism; Z91.040 Latex allergy status; Z91.048 Other nonmedicinal substance allergy status
CPT/HCPCS: 93005; 85025; 80048; 36415; 84484; 71045; 96375; 96374; 99285; J2550; J1100; J2270

== ENCOUNTER 2020-07-05 17:42 | Emergency (ER) | payer OTHER ==
--- OUTSIDE RECORDS SUMMARY | 2020-07-05 17:47 | XMS REPORT | Continuity of Care Document ---
:1985 Author Organization [facility] t Address [address] [place] [address] Care Team Providers Name Role Phone Yari [...] kieran partial 01:57:48 l epileptic Complex Herm zay seizure partial [...] Active 2020-06-18 M emoria (disorder) 01:57:48 l Ricardo Hemiplegia (disorder) Active Problem 06/18/2020 [facility] Visual Problem Active 2020-06-18 Memor ia disturbanc 01:57:48 l e Visual [place] (disorder) disturbanc e (disorder) Active Problem 06/18/2020 [facility] Disorienta Problem Active 2020-06-18 M emoria leon 01:57:48 l (finding) [place] Disorienta leon (finding) Active Problem 06/18/2020 Mischer [...] l Ricardo Latex Latex Active Memoria l [place] Gadavist Gadavist Active Memori a l [place] Cephalex Adverse Active Info Not [facility] [...] 90 cap, 2 Release Refill(s), [id number], 167.64, cm, 04/19/20 14:37:00 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, Height, 104.545, kg, 04/19/20 14:37:00 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, Weight Famotidine 2019-04 Yes 40 mg, PO, M emoria 2-30 Daily, # l 20:40: 60 tab, 0 Ricardo 00 Refill(s) Nulev 2019-04 Yes 0.125 mg, Memoria 2-30 PO, QID, 0 l 20:40: Refill(s) [place] 00 Reglan 2019-04 Yes 0 Memoria 1-10 Refill(s) l 18:04: Ricardo 00 Vyvanse Vyvanse Yes Na Savage [address] [facility] oxcarbazepi Yes 300 mg = 1 Memoria ne 300 MG 9-06 tab, PO, l Oral Tablet 16:04: BID, # 180 Ricardo [Trileptal] 19 tab, 3 Refill(s), [id number] Yes 100 mg = 1 Memori a topiramate 9-06 cap, PO, l 100 MG 16:04: Daily, # Ricardo Extended 10 90 cap, 3 Release Refill(s), Capsule Pharmacy: [[facility]] [id number] No 100 mg = 1 Memori a topiramate 9-04 cap, PO, l 100 MG 18:31: Daily, X [place] Extended 05 30 day, # Release 30 cap, 3 Capsule Refill(s), [[facility]] Pharmacy: [facility] [place] oxcarbazepi No 300 mg = 1 Memoria ne 300 MG 9-04 tab, PO, l Oral Tablet 18:31: BID, X 30 H ermann [Trileptal] 02 day, # 60 tab, 3 Refill(s), Pharmacy: [facility] lisdexamfet Yes 30 mg = 1 M emoria amine 8-09 cap, PO, l dimesylate 16:20: QAM, # 30 He rmann 30 MG Oral 00 cap, 0 Capsule Refill(s) [Vyvanse] omeprazole Yes 20 mg = 1 Me moria 20 mg oral 7-17 cap, PO, l delayed 00:27: Daily, # Murray n release 00 30 cap, 2 capsule Refill(s), Pharmacy: [facility] oxcarbazepi Yes 300 mg = 1 Memoria ne 300 MG 7-03 tab, PO, l Oral Tablet 18:01: BID, # 60 H ermann [Trileptal] 00 tab, 2 Refill(s), Pharmacy: [facility] 24 HR Yes 100 mg = 1 Memori a topiramate 6-28 cap, PO, l 100 MG 14:50: Daily, # Ricardo Extended 00 30 cap, 3 Release Refill(s), Capsule Pharmacy: [[facility]] [facility] topiramate Yes 25 mg = 1 Me moria 25 MG Oral 6-14 tab, PO, l Tablet 23:33: BID, # 60 Murray n [Topamax] 00 tab, 2 Refill(s), Pharmacy: [facility] Phenytoin Yes 200 mg = 2 Me moria sodium 100 6-13 cap, PO, l MG Extended 13:57: BID, # 120 Ricardo Release 00 cap, 3 Capsule Refill(s), [Dilantin] Pharmacy: [facility] Alprazolam Yes 0.5 mg = 1 M emoria 0.5 MG Oral 6-13 tab, PO, l Tablet 13:28: TID, 0 [place] [Xanax] 00 Refill(s) Zyrtec 2018-0 Yes Daily, [...] Systolic (mm Hg) 2020-04-19 20:08:00 Unruly rial [place] Diastolic (mm Hg) 2020-04-19 20:08:00 Mem orial [place] Heart Rate 2020-04-19 20:08:00 [facility] [place] Respitory Rate 2020-04-19 20:08:00 Memori al [place] Height 2020-04-19 20:08:00 167.64 cm Memorial Ricardo Weight 2020-04-19 20:08:00 [facility] Ricardo BMI Calculated 2020-04-19 20:08:00 Memori al [place] Systolic (mm Hg) 2020-03-29 20:19:00 Unruly rial Ricardo Diastolic (mm Hg) 2020-03-29 20:19:00 Mem orial Ricardo Heart Rate 2020-03-29 20:19:00 [facility] Ricardo Respitory Rate 2020-03-29 20:19:00 Memori al Ricardo Height 2020-03-29 20:19:00 167.64 cm [facility] Ricardo Weight 2020-03-29 20:19:00 [facility] [place] BMI Calculated 2020-03-29 20:19:00 Memori al [place] Systolic (mm Hg) 2020-02-29 17:31:00 Unruly rial [place] Diastolic (mm Hg) 2020-02-29 17:31:00 Mem orial Ricardo Heart Rate 2020-02-29 17:31:00 [facility] Ricardo Respitory Rate 2020-02-29 17:31:00 Memori al Ricardo Height 2020-02-29 17:31:00 167.64 cm [facility] Ricardo Weight 2020-02-29 17:31:00 [facility] [place] BMI Calculated 2020-02-29 17:31:00 Memori al Ricardo Systolic (mm Hg) 2018-12-23 18:03:00 Unruly rial [place] Diastolic (mm Hg) 2018-12-23 18:03:00 Mem orial Ricardo Heart Rate 2018-12-23 18:03:00 [facility] [place] Respitory Rate 2018-12-23 18:03:00 Memori al Ricardo Height 2018-12-23 18:03:00 167.64 cm [facility] Ricardo Weight 2018-12-23 18:03:00 [facility] [place] BMI Calculated 2018-12-23 18:03:00 Memori al [place] BMI Calculated 2018-11-27 15:59:00 Memori al Ricardo Weight 2018-11-27 15:59:00 [facility] [place] Height 2018-11-27 15:59:00 167.64 cm [facility] Ricardo Heart Rate 2018-11-27 15:59:00 [facility] Ricardo Respitory Rate 2018-11-27 15:59:00 Memori al [place] Systolic (mm Hg) 2018-11-27 15:59:00 Unruly rial Ricardo Diastolic (mm Hg) 2018-11-27 15:59:00 Mem orial Ricardo Heart Rate 2018-10-16 14:19:00 [facility] [place] Respitory Rate 2018-10-16 14:19:00 Memori al [place] Systolic (mm Hg) 2018-10-16 14:19:00 Unruly rial Ricardo Diastolic (mm Hg) 2018-10-16 14:19:00 Mem orial Ricardo BMI Calculated 2018-10-16 14:19:00 Memori al [place] Weight 2018-10-16 14:19:00 [facility] Ricardo Height 2018-10-16 14:19:00 167.64 cm [facility] [place] BMI Calculated 2018-10-01 13:18:00 Memori al [place] Weight 2018-10-01 13:18:00 [facility] [place] Height 2018-10-01 13:18:00 167.64 cm [facility] [place] Respitory Rate 2018-10-01 13:18:00 Memori al Ricardo Heart Rate 2018-10-01 13:18:00 [facility] [place] Systolic (mm Hg) 2018-10-01 13:18:00 Unruly rial Ricardo Diastolic (mm Hg) 2018-10-01 13:18:00 Mem orial [place] Procedures Procedure Date / Time Performed Performing Clinician Sourc e Tubal ligation [facility] [place] Encounters Start End Encounter Admission Attending Care Care Encounter Source Date/Time Date/Time Type Type Clinicians Facility Department ID 2020-06-30 2020-06-30 Outpatient [facility] [id number] [facility] 2020-06-27 2020-06-27 Outpatient [facility]ML[facility] [id number] [facility] 2020-06-20 2020-06-20 Outpatient [facility] [id number] [facility] 2020-06-19 2020-06-19 Outpatient [facility] [id number] [facility] 2020-06-14 2020-06-15 Outpatient MISCHER MHMISCHER [id number] 15:54:19 23:59:59 01 2020-06-12 2020-06-12 Outpatient [facility]LMLC [facility] [id number] [facility] 2020-06-12 2020-06-12 Outpatient [facility]ML[facility] [id number] [facility] 2020-06-10 2020-06-10 Outpatient [facility] [id number] [place] 00:00:00 00:00:[address] 2020-06-09 2020-06-09 Outpatient [facility]C [facility] [id number] [facility] 2020-06-09 2020-06-09 Outpatient [facility] [id number] [facility] 2020-06-04 2020-06-07 Inpatient LILY [facility] [id number] [place] 00:00:00 00:00:00 FATOUMATA [address] 2020-05-31 2020-05-31 [id number] 11:30:00 23:59:[address] 2020-05-31 2020-05-31 Outpatient Juliet, MHMISCHER MHMISCHER [id number] 15:30:00 15:30:00 David 11 Mar[address] 2020-04-19 2020-04-19 Outpatient FAYE ChungMISCHER MHMISCHER [id number] 14:00:00 23:59:59 David 10 Marck 2020-04-18 2020-04-18 Outpatient [facility]MLC [facility] [id number] [facility] 2020-04-11 2020-04-11 Outpatient Juliet MHMISCHER MHMISCHER [id number] 10:00:00 23:59:59 David 09 Marck 2020-03-29 2020-03-29 Outpatient Juliet, MHMISCHER MHMISCHER [id number] 14:00:00 23:59:59 David 08 Marck 2020-03-22 2020-03-22 Outpatient [facility] [id number] [facility] 2020-03-16 2020-03-16 Outpatient [facility]MLC [facility] [id number] [facility] 2020-03-08 2020-03-08 Outpatient CHAVO [facility] [id number] [place] 00:00:00 00:00:[address] 2020-03-07 2020-03-07 Outpatient [facility]LMLC [facility] [id number] [facility] 2020-02-29 2020-02-29 Outpatient Juliet, MHMISCHER MHMISCHER [id number] 11:15:00 23:59:59 David 07 Marck 2020-02-21 2020-02-21 Outpatient [facility]MLC [facility] [id number] [facility] 2020-02-17 2020-02-17 Outpatient [facility]MLC [facility] [id number] [facility] 2020-02-12 2020-02-16 Inpatient KEVIN [facility] [id number] [place] 00:00:00 00:00:00 BLESSING [address] [facility] 2020-02-15 2020-02-15 [facility] [id number] 09:15:00 09:15:00 David Acharya 2020-02-09 2020-02-09 Outpatient [facility]LMLC STLC [id number] [facility] 2020-02-03 2020-02-08 Inpatient JUDY [facility] [id number] [place] 00:00:00 00:00:00 MICHAEL Santacruz [facility] 2020-01-17 2020-01-17 [facility] [id number] [facility] 2019-12-14 2019-12-14 [facility] [id number] [facility] 10:48:00 10:48:00 t [place] [employer] s - Drive [facility] Medicine l Medicine Outpati ent Clinics 2019-11-23 2019-11-23 [facility] [id number] [facility] 09:00:00 09:00:00 t [employer] [facility] Medicine l Medicine Outpati ent Clinics 2019-11-23 2019-11-23 [facility] [id number] 08:05:00 08:05:00 [facility] Medicine l Medicine Outpati ent Clinics 2019-10-15 2019-10-15 [facility] [id number] 08:44:00 08:44:00 t [employer] s - Drive [facility] Medicine l Medicine Outpati ent Clinics 2019-09-07 2019-09-07 [facility] [id number] 11:56:00 11:56:00 t [facility] [employer] MIKA [address] s [address] [facility] Medicine l Medicine Outpati ent Clinics 2019-08-13 2019-08-13 [facility] [id number] [facility] 10:20:00 10:20:00 t [employer] s - Drive [facility] Medicine Outpati ent Clinics 2019-08-12 2019-08-12 [facility] [id number] 09:49:00 09:49:00 t [place] [employer] s - Drive [facility] Medicine Outpati ent Clinics 2019-06-15 2019-06-15 [facility] [id number] 15:24:00 15:24:00 t [place] [employer] s - Drive [facility] Medicine Outpati ent Clinics 2019-06-09 2019-06-09 [facility] [id number] 08:40:00 08:40:[address] [facility] [address] [employer] s - Road [facility] Medicine Outpati ent Clinics 2019-06-03 2019-06-03 [facility] [id number] [address] 10:52:00 10:52:00 t [employer] s - Drive [facility] Medicine Outpati ent Clinics 2019-05-28 2019-05-28 [facility] [id number] 16:20:00 16:20:00 t [place] [employer] [facility] Medicine Outpati ent Clinics 2019-05-21 2019-05-22 Outpatient MHMISCHER MHMISCHER [id number] 14:44:00 23:59:59 00 2019-04-28 2019-04-28 Outpatient Juliet MISCHER MHMISCHER [id number] 13:00:00 13:00:00 David Acharya 2019-01-01 2019-01-01 [facility] [id number] 15:32:00 15:32:00 t [place] [employer] s - Drive [facility] Medicine Outpati ent Clinics 2018-12-31 2018-12-31 [facility] [id number] 09:55:00 09:55:00 t [place] [employer] s - Drive [facility] Medicine Outpati ent Clinics 2018-12-30 2018-12-30 [facility] [id number] 13:25:00 13:25:00 t [place] [employer] s - Drive [facility] Medicine Outpati ent Clinics 2018-12-30 2018-12-30 [facility] [id number] 08:00:00 08:00:00 t [place] [employer] Luke s - Drive [facility] 2018-12-29 2018-12-29 [facility] [id number] 09:42:00 09:42:[address] Luke s - Drive [facility] 2018-12-23 2018-12-23 Outpatient ASIF ChungSCHER [id number] 13:15:00 23:59:59 David [facility] 2018-12-04 2018-12-04 [facility] [id number] [facility] 16:20:00 16:20:00 [place] [employer] s - Drive [facility] 2018-11-30 2018-11-30 [facility] [id number] 10:08:00 10:08:00 t [facility] ent [facility] 2018-11-27 2018-11-27 Outpatient DEDE ChungSCHBINU AGUAYOSCHER [id number] 10:45:00 23:59:59 David [facility] 2018-11-27 2018-11-27 [facility] [id number] 13:00:00 13:00:00 t [place] [employer] s - Drive [facility] 2018-10-29 2018-10-29 [facility] [id number] 10:40:00 10:40:00 t [place] [employer] s - Drive [facility] Outpati ent Clinics 2018-10-16 2018-10-16 Outpatient DEDE ChungSCHBINU AGUAYOSCHBINU [id number] 09:00:00 23:59:59 David [facility] 2018-10-02 2018-10-02 Outpatient DEDE ChungSCHBINU AGUAYOSCHBINU [id number] 15:00:00 23:59:59 David Marck 2018-10-01 2018-10-01 Outpatient ASIF ChungSCHBINU [id number] 08:15:00 23:59:59 David 00 [facility] 2018-09-30 2018-09-30 [facility] [id number] 13:00:00 13:00:[address] Luke [address] - Drive [facility] Medicine Outpati ent Clinics 2018-08-31 2018-08-31 [facility] [id number] 11:00:00 11:00:00 [place] [employer] Luke s - Drive [facility] Medicine Outpati ent Clinics 2018-07-27 2018-07-27 [facility] [id number] 13:54:00 13:54:00 t [place] [employer] s - Drive [facility] Medicine Medicine Outpati ent Clinics 2018-07-23 2018-07-23 [facility] [id number] 08:53:00 08:53:00 [place] [employer] s - Drive [facility] Medicine Outpati ent Clinics 2018-07-23 2018-07-23 [facility] [id number] 08:15:00 08:15:00 [place] [employer] s - Drive [facility] Medicine Outpati ent Clinics 2018-06-22 2018-06-22 [facility] [id number] 10:30:00 10:30:00 t [place] [employer] s - Drive [facility] Medicine Outpati ent Clinics 2018-05-04 2018-05-04 [facility] [id number] 12:00:00 12:00:00 [place] [employer] s - Drive [facility] Medicine Outpati ent Clinics 2018-04-02 2018-04-02 [facility] [id number] 09:00:00 09:00:00 [place] [employer] - Drive [facility] Medicine Outpati ent Clinics Results This patient has no known results.
[2020-07-05 19:30] LABS: Absolute Lymphocytes (CBC) 2.5 K/uL (0.7-4.9); Basophils % 0.5 % (0-1.3); Hematocrit 36.3 % (36.0-45.0); Lymphocytes % 36.2 % (15.3-44.8); MPV 10.5 fL (7.6-11.3); RBC Red Blood Cell Count 4.19 M/uL (3.86-4.86)
[2020-07-05] MEDS ORDERED: NA CHLORIDE 0.9% 1,000 ML ONE (19:34)
[2020-07-05] MEDS ORDERED: ONDANSETRON 4 MG/2 ML VIAL ONE (19:34)
[2020-07-05] MEDS ORDERED: MORPHINE 2 MG/ML SYR ONE ×2 (19:34→21:29)
[2020-07-05 20:05] LABS: AST/SGOT 18 U/L (15-37); BUN Blood Urea Nitrogen 12 mg/dL (7-18); Bicarbonate 25 mmol/L (21-32); Bilirubin Direct 0.1 mg/dL (0-0.2); Glucose Level 96 mg/dL (74-106); Lipase 97 U/L (73-393); Potassium 3.6 mmol/L (3.5-5.1); Sodium Level 142 mmol/L (136-145)
[2020-07-05 20:09] LABS: Bilirubin Total 0.3 mg/dL (0.2-1.0); Protein, Total 7.1 g/dL (6.4-8.2)
[2020-07-05 20:13] LABS: Urine Blood NEGATIVE (NEG); Urine Glucose NEGATIVE (NEG); Urine Protein NEGATIVE (NEG); Urine Specific Gravity >1.030 (1.005-1.030); Urine pH 5.5 (5.0-7.0)
[2020-07-05 21:05] LABS: ALT/SGPT 76 U/L (12-78)
[2020-07-05 21:07] LABS: Alkaline Phosphatase ND U/L (45-117)
--- NOTE | 2020-07-05 21:07 | RAD REPORT ---
EXAM DESCRIPTION: CT - Abdomen Pelvis W Contrast - 07/05/2020 8:22 pm CLINICAL HISTORY: ABD PAIN COMPARISON: Abdomen Pelvis W Contrast dated 03/20/2020 TECHNIQUE: Biphasic, helical CT imaging of the abdomen and pelvis was performed following 100 ml non -ionic IV contrast. No oral contrast administered. All CT scans are performed using dose optimization technique as appropriate and may include automated exposure control or mA/KV adjustment according to patient size. FINDINGS: No suspicious findings in the lung bases. The liver, spleen, and pancreas show no suspicious findings. Liver is fatty infiltrated. Gallbladder is absent. Biliary tree within normal limits. Symmetric renal function is seen with no hydronephrosis or suspicious renal mass. No pyelonephritis o r acute parenchymal process. No adrenal abnormalities. Urinary bladder is fully contracted precluding assessment. Uterus and ovaries show no suspicious findings for age. Physiologic quantity of free flu id seen in the cul de sac. No dilated bowel loops or bowel wall thickening. No evidence for appendicitis or other acute GI proce ss. Appendix is surgically absent by history. No abnormal free fluid. No free air or pneumatosis. No mass or bulky lymphadenopathy. A very small 10 mm supraumbilical abdominal wall hernia is seen conta ining only fat. No suspicious bony findings. Facet degenerative changes are present in the lower lumbar spine greater than typically seen at this age. Several punctate air densities are present in the left abdomen subcutaneous fat. These are presumed t o be from medication injection. Patient also has several soft tissue density masses in the subcutaneo us fatty tissues up to 2.6 cm in size. These are most likely hematomas in the subcutaneous fat from p rior injections. No abscess or worrisome finding. Deeper subcutaneous fat and abdominal wall are unin volved. IMPRESSION: Multiple soft tissue density masses are present in the superficial subcutaneous fat prabhu g with several areas of air density in the fat. Soft tissue densities are believed to be small hemato mas associated with injection sites. No abscess or worrisome finding in the subcutaneous fat. Deeper subcutaneous fat and anterior abdomin al wall are uninvolved. No intraperitoneal or retroperitoneal acute or worrisome finding. Liver is fatty infiltrated.
--- NOTE | 2020-07-05 21:11 | ER ---
Nurse's Notes [facility] Name: Snow Argueta Age: 34 yrs Sex: Female : 1985 Arrival Date: 07/05/2020 Time: 17:47 Bed 2 Private MD: Diagnosis: Other abdominal pain-abdominal wall hematoma;Nontraumatic hematoma of soft tissue Presentation: 07/05 18:25 Chief complaint: Patient states: Bruising to upper abdomen since Friday. On lovenox ll1 shots BID. States the bruising has doubled in size, and hard knots are present now. Sent in by PCP. No trauma or falls recently. Coronavirus screen: Client denies travel out of the [place] in the last 14 days. At this time, the client does not indicate any symptoms associated with coronavirus-19. Ebola Screen: Patient denies travel to an Ebola-affected area in the 21 days before illness onset. Initial Sepsis Screen: Does the patient meet any 2 criteria? No. Patient's initial sepsis screen is negative. Does the patient have a suspected source of infection? Yes: Acute abdominal pain. Risk Assessment: Do you want to hurt yourself or someone else? Patient reports no desire to harm self or others. Onset of symptoms was July 02, 2020. 18:25 Method Of Arrival: Ambulatory ll1 18:25 Acuity: LEONEL 3 ll1 Historical: - Allergies: 18:29 Cephalexin; ll1 18:29 Gadavist; ll1 18:29 Latex, Natural Rubber; ll1 18:29 Zofran; ll1 - PMHx: 18:29 ADD/ADHD; Blood Clot on R arm; Endometrosis; epilepsy; GERD; Leukemia; Pancreatitis; ll1 epilepsy; - PSHx: 18:29 Cholecystectomy; Appendectomy; ll1 - Immunization history:: Pneumococcal vaccine is up to date, Flu vaccine is up to date. - Social history:: Smoking status: Patient denies any tobacco usage or history of. - Family history:: not pertinent. Screenin:30 Abuse screen: Denies threats or abuse. Denies injuries from another. rv 19:30 Nutritional screening: No deficits noted. Tuberculosis screening: No symptoms or risk rv factors identified. Fall Risk None identified. Assessment: 19:30 General: Appears comfortable, Behavior is calm, cooperative. rv 19:30 Pain: Complains of pain in abdomen. Neuro: Level of Consciousness is awake, alert, rv obeys commands, Oriented to person, place, time, situation. Cardiovascular: Patient's skin is warm and dry. Respiratory: Airway is patent. GI: Bowel sounds present X 4 quads. Abd is soft and non tender X 4 quads. Patient currently denies nausea. Derm: Skin is intact. Vital Signs: 18:25 BP 127 / 87; Pulse 85; Resp 17; Temp 98.0; Pulse Ox 99% ; Weight 90.26 kg; Height 5 ft. ll1 6 in. (167.64 cm); Pain 8/10; 21:15 BP 127 / 85; Pulse 84; Resp 16; Temp 98.2(O); Pulse Ox 100% on R/A; rv 18:25 Body Mass Index 32.12 (90.26 kg, 167.64 cm) ll1 ED Course: 17:47 Patient arrived in ED. ds1 18:28 Triage completed. ll1 18:29 Arm band placed on. ll1 18:33 Rustam Aguirre MD is Attending Physician. lisandra 19:06 Robin Sun, EBONIE is Primary Nurse. rv 19:12 Inserted saline lock: 20 gauge in right antecubital area, using aseptic technique. rv Blood collected. 19:12 Initial lab(s) drawn, by me, sent to lab. rv 19:30 Patient has correct armband on for positive identification. Pulse ox on. NIBP on. rv 19:30 No provider procedures requiring assistance completed. rv 20:22 CT Abd/Pelvis - IV Contrast Only In Process Unspecified. EDMS 21:27 IV discontinued, intact, bleeding controlled, No redness/swelling at site. Pressure rv dressing applied. Administered Medications: 19:20 Drug: NS 0.9% 1000 ml Route: IV; Rate: 1 bolus; Site: right antecubital; rv 21:17 Follow up: IV Status: Completed infusion; IV Intake: 1000ml rv 19:20 Drug: morphine 2 mg Route: IVP; Site: right antecubital; rv 21:16 Drug: morphine 2 mg Route: IVP; Site: right antecubital; rv 21:16 Follow up: Response: No adverse reaction; Pain is unchanged, physician notified; RASS: rv Alert and Calm (0) 21:17 Follow up: Response: Medication administered at discharge.; RASS: Alert and Calm (0) rv 21:17 Not Given (Patient Refused): Phenergan 12.5 mg IVP once rv Intake: 21:17 IV: 1000ml; Total: 1000ml. rv Outcome: 21:10 Discharge ordered by . lisandra 21:26 Discharged to home ambulatory. rv 21:26 Condition: good 21:26 Discharge instructions given to patient, Instructed on discharge instructions, follow up and referral plans. Demonstrated understanding of instructions, follow-up care. 21:27 Patient left the ED. rv Signatures: Dispatcher [employer] EDAL Rustam Aguirre MD MD cha Sanford, Demi ds1 Robin Sun RN RN rv Lewis, Lynsay, RN RN ll1 Corrections: (The following items were deleted from the chart) 18:30 18:25 Chief complaint: Patient states: Bruising to upper abdomen since Friday. On ll1 lovenox shots BID. States the bruising has doubled in size, and hard knots are present now. Sent in by PCP. ll1
--- NOTE | 2020-07-05 21:11 | EDPHYS ---
Physician Documentation [facility] – [place], [place] Name: Snow Argueta Age: 34 yrs Sex: Female : 1985 Arrival Date: 07/05/2020 Time: 17:47 Bed 2 Private MD: ED Physician Rustam Aguirre HPI: 07/05 18:58 This 34 yrs old Female presents to ER via Ambulatory with complaints of lisandra Abdominal Pain. 18:58 The patient presents with abdominal pain in the upper abdomen, in the lower abdomen. lisandra Onset: The symptoms/episode began/occurred 1 day(s) ago. The symptoms do not radiate. Associated signs and symptoms: none. The symptoms are described as burning, crampy. Modifying factors: The symptoms are alleviated by nothing, the symptoms are aggravated by movement, pressure. Severity of pain: At its worst the pain was mild moderate in the emergency department the pain is unchanged. The patient has not experienced similar symptoms in the past. Historical: - Allergies: 18:29 Cephalexin; ll1 18:29 Gadavist; ll1 18:29 Latex, Natural Rubber; ll1 18:29 Zofran; ll1 - PMHx: 18:29 ADD/ADHD; Blood Clot on R arm; Endometrosis; epilepsy; GERD; Leukemia; Pancreatitis; ll1 epilepsy; - PSHx: 18:29 Cholecystectomy; Appendectomy; ll1 - Immunization history:: Pneumococcal vaccine is up to date, Flu vaccine is up to date. - Social history:: Smoking status: Patient denies any tobacco usage or history of. - Family history:: not pertinent. ROS: 18:58 Constitutional: Negative for fever, chills, and weight loss, Eyes: Negative for injury, lisandra pain, redness, and discharge, ENT: Negative for injury, pain, and discharge, Neck: Negative for injury, pain, and swelling, Cardiovascular: Negative for chest pain, palpitations, and edema, Respiratory: Negative for shortness of breath, cough, wheezing, and pleuritic chest pain, Back: Negative for injury and pain, : Negative for injury, bleeding, discharge, and swelling, MS/Extremity: Negative for injury and deformity, Skin: Negative for injury, rash, and discoloration, Neuro: Negative for headache, weakness, numbness, tingling, and seizure. 18:58 Abdomen/GI: Positive for abdominal pain, of the umbilical area, right upper quadrant and left upper quadrant. Exam: 18:58 Constitutional: This is a well developed, well nourished patient who is awake, alert, lisandra and in no acute distress. Head/Face: Normocephalic, atraumatic. Eyes: Pupils equal round and reactive to light, extra-ocular motions intact. Lids and lashes normal. Conjunctiva and sclera are non-icteric and not injected. Cornea within normal limits. Periorbital areas with no swelling, redness, or edema. ENT: Nares patent. No nasal discharge, no septal abnormalities noted. Tympanic membranes are normal and external auditory canals are clear. Oropharynx with no redness, swelling, or masses, exudates, or evidence of obstruction, uvula midline. Mucous membranes moist. Neck: Trachea midline, no thyromegaly or masses palpated, and no cervical lymphadenopathy. Supple, full range of motion without nuchal rigidity, or vertebral point tenderness. No Meningismus. Chest/axilla: Normal chest wall appearance and motion. Nontender with no deformity. No lesions are appreciated. Cardiovascular: Regular rate and rhythm with a normal S1 and S2. No gallops, murmurs, or rubs. Normal PMI, no JVD. No pulse deficits. Respiratory: Lungs have equal breath sounds bilaterally, clear to auscultation and percussion. No rales, rhonchi or wheezes noted. No increased work of breathing, no retractions or nasal flaring. Back: No spinal tenderness. No costovertebral tenderness. Full range of motion. MS/ Extremity: Pulses equal, no cyanosis. Neurovascular intact. Full, normal range of motion. Neuro: Awake and alert, GCS 15, oriented to person, place, time, and situation. Cranial nerves II-XII grossly intact. Motor strength 5/5 in all extremities. Sensory grossly intact. Cerebellar exam normal. Normal gait. Psych: Awake, alert, with orientation to person, place and time. Behavior, mood, and affect are within normal limits. 18:58 Abdomen/GI: Inspection: bruising, umbilical area, right upper quadrant and left upper quadrant. Vital Signs: 18:25 BP 127 / 87; Pulse 85; Resp 17; Temp 98.0; Pulse Ox 99% ; Weight 90.26 kg; Height 5 ft. ll1 6 in. (167.64 cm); Pain 8/10; 21:15 BP 127 / 85; Pulse 84; Resp 16; Temp 98.2(O); Pulse Ox 100% on R/A; rv 18:25 Body Mass Index 32.12 (90.26 kg, 167.64 cm) ll1 MDM: 18:34 Patient medically screened. lisandra 19:04 Differential diagnosis: non-specific abd pain. Data reviewed: vital signs, nurses [facility] notes, lab test result(s), radiologic studies, CT scan. Data interpreted: athletic monitor: rate is 85 beats/min, rhythm is regular, Pulse oximetry: on room air is 99 %. Counseling: I had a detailed discussion with the patient and/or guardian regarding: the historical points, exam findings, and any diagnostic results supporting the discharge/admit diagnosis, lab results, radiology results, the need for outpatient follow up, for definitive care, a family practitioner. 07/05 18:57 Order name: Basic Metabolic Panel [facility] 07/05 18:57 Order name: CBC with Diff; Complete Time: 20:15 [facility] 07/05 18:57 Order name: Hepatic Function; Complete Time: 21:09 [facility] 07/05 18:57 Order name: Lipase; Complete Time: 21:09 [facility] 07/05 18:57 Order name: Basic Metabolic Panel; Complete Time: 21:09 [facility] 07/05 20:08 Order name: Urine Dipstick--Ancillary (enter results); Complete Time: 20:15 [facility] 07/05 18:57 Order name: IV Saline Lock; Complete Time: 19:40 [facility] 07/05 18:57 Order name: Labs collected and sent; Complete Time: 19:40 [facility] 07/05 18:57 Order name: Urine Dipstick-Ancillary (obtain specimen); Complete Time: 21:16 [facility] 07/05 18:57 Order name: CT Abd/Pelvis - IV Contrast Only; Complete Time: 21:09 [facility] 07/05 20:08 Order name: Urine --Ancillary (enter results); Complete Time: 20:15 [facility] 07/05 18:57 Order name: Urine Test (obtain specimen); Complete Time: 21:16 [facility] Administered Medications: 19:20 Drug: NS 0.9% 1000 ml Route: IV; Rate: 1 bolus; Site: right antecubital; rv 21:17 Follow up: IV Status: Completed infusion; IV Intake: 1000ml rv 19:20 Drug: morphine 2 mg Route: IVP; Site: right antecubital; rv 21:16 Drug: morphine 2 mg Route: IVP; Site: right antecubital; rv 21:16 Follow up: Response: No adverse reaction; Pain is unchanged, physician notified; RASS: rv Alert and Calm (0) 21:17 Follow up: Response: Medication administered at discharge.; RASS: Alert and Calm (0) rv 21:17 Not Given (Patient Refused): Phenergan 12.5 mg IVP once rv Disposition: 07/05/20 21:10 Discharged to Home. Impression: Other abdominal pain - abdominal wall hematoma, Nontraumatic hematoma of soft tissue. - Condition is Stable. - Discharge Instructions: Abdominal Pain, Adult, Hematoma, Hematoma, [id number]. - Medication Reconciliation Form, Thank You Letter, Antibiotic Education, Prescription Opioid Use form. - Follow up: Private Physician; When: 2 - 3 days; Reason: Recheck today's complaints, Continuance of care, Re-evaluation by your physician. - Problem is new. - Symptoms have improved. Signatures: Dispatcher [employer] EDMS Rustam Aguirre MD MD cha Vicente, Ronaldo, RN RN Duy Bautista RN RN ll1 Corrections: (The following items were deleted from the chart) 21:27 21:10 07/05/2020 21:10 Discharged to Home. Impression: Other abdominal pain - abdominal rv wall hematoma; Nontraumatic hematoma of soft tissue. Condition is Stable. Discharge Instructions: Abdominal Pain, Adult, Hematoma, Hematoma, [id number]. Forms are Medication Reconciliation Form, Thank You Letter, Antibiotic Education, Prescription Opioid Use. Follow up: Private Physician; When: 2 - 3 days; Reason: Recheck today's complaints, Continuance of care, Re-evaluation by your physician. Problem is new. Symptoms have improved. lisandra
[2020-07-05 21:42] VITALS: BP 127/85; TEMP 98.2; O2SAT 100
== END 2020-07-05 21:27 | disposition home or self-care (01) ==
LOC: ER 17:42
DX: M79.81 Nontraumatic hematoma of soft tissue (principal); R10.9 Unspecified abdominal pain; F90.9 Attention-deficit hyperactivity disorder, unspecified type; Z86.718 Personal history of other venous thrombosis and embolism; G40.909 Epilepsy, unspecified, not intractable, without status epilepticus; K21.9 Gastro-esophageal reflux disease without esophagitis; C95.90 Leukemia, unspecified not having achieved remission
CPT/HCPCS: 96361; 85025; 80048; 36415; 81025; 80076; 81003; 83690; 74177; 96374; 99284; Q9967; J2270 ×2; J7030; J2405

== ENCOUNTER 2020-08-15 10:55 | Emergency (ER) | payer OTHER ==
--- OUTSIDE RECORDS SUMMARY | 2020-08-15 11:04 | XMS REPORT | Continuity of Care Document ---
:1985 Author Organization [facility] t Address [address] [place] [address] Care Team Providers Name Role Phone Yari HAMILTON Primary Care Physician Nisa HAMILTON Attending Clinician Yamil Mane MD Attending Clinician Anival [facility] Attending Clinician Unavailable Lyndsay HAMILTON Attending Clinician Nasreen HAMILTON Attending Clinician Ashok Tsai MD Attending Clinician Marck Chung Attending Clinician Jae Bull MD Attending Clinician Marichuy HAMILTON Attending Clinician Toni Maldonado MD Attending Clinician Barber Attending Clinician Unavailable Janice Guevara MD Attending Clinician Edwin HAMILTON Attending Clinician Varsha HAMILTON, [facility] Attending Clinician Ricky HOBSON Attending Clinician Unavailable JOGLEKAR Admitting Clinician Unavailable ONAIWU Admitting Clinician Unavailable EDWIN Admitting Clinician Unavailable Payers Payer Name Policy Type Policy Effective Date Expiration Date Sour ce Number ANNAMARIE DE LUNA [id number] 2018 MD Andrea [place] 00:00:00 PPO [id number] PO CIGNACIGNA OPEN [id number] 2020 [place] ACCESS/NETWORKxx 00:00:00 Methodis t [id number] Problems Condition Condition Condition Status Onset Resolution Last Treating Co mments Source Name Details Category Date Date Treatment Clinician Date Weakness Weakness Disease Active [place] of right of right 2-14 Method i arm arm 00:00: st 00 COVID-19 COVID-19 Disease Active [place] virus virus 2-14 [facility] detected detected 00:00: st 00 Lower Lower Disease Active 2019-04 [place] extremity extremity 0-28 Meth tanvi weakness weakness 00:00: st 00 Debility Debility Disease Active 2019-04 [place] 0-26 [facility]i 00:00: st 00 Weakness Weakness Disease Active 2019-04 [place] 0-24 Methodi 00:00: st 00 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 [place] al al 0-24 [facility] dysfunctio dysfunctio 00:00: st n n 00 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 0-15 Method i 00:00: st [...] Memor ia disturbanc 01:57:48 l e Visual [place] (disorder) disturbanc e (disorder) Active Problem 06/18/2020 [facility] Neuro Disorienta Problem Active 2020-06-18 M emoria leon 01:57:48 l (finding) [place] Disorienta leon (finding) Active Problem 06/18/2020 [facility] [...] to drug Latex Propensi Active Hives 2019-04 [place] ty to 0-16 Methodi adverse 00:00: st reaction 00 s to drug Ondanset Propensi Active Headache 2019-04 [place] mikey Hcl ty to 0-16 Methodi adverse 00:00: st reaction 00 s to drug Gadobutr Propensi Active Other (See 2019-04 Vomiting [facility] ty to Comments) 0-15 0 Method i adverse 00:00: 8:30pm- st reaction [...] cephalex Active Memori a in in l [place] Latex Latex Active Memoria l Ricardo Gadavist Gadavist Active Memori a l Ricardo Cephalex Adverse Active [facility] Not [facility] Reaction Available [facility] Zofran Adverse Active Info Not [facility] Reaction Available [facility] Family History Family Member Diagnosis Comments Start Date Stop Date Source Paternal grandfather Kidney cancer [facility] Social History Social Habit Start Date Stop Date Quantity Comments Source Tobacco use and 2020-06-10 2020-06-10 Never used Turner Rush ethodist exposure 00:00:00 00:00:00 Alcohol intake 2020-06-10 2020-06-10 Current drinker Yurit [facility] 00:00:00 00:00:00 of alcohol (finding) Alcohol Comment 2020-02-03 2020-02-03 occ drinker [place] [facility] 00:00:00 00:00:00 Social History 2018-10-01 2018-10-01 [facility] Andres [facility] 13:53:53 13:53:53 Sex [birth year] At [birth year] Turner gilodi 00:00:00 00:00:00 Smoking Status Start Date Stop Date Source Never smoker [place] Ch[place]ais Medications Ordered Filled Start Stop Current Ordering [...] cap, 2 Release Refill(s), Capsule Pharmacy: [[facility]] [id number], 167.64, cm, 04/19/20 14:37:00 CLOTH SANDER, Height, 104.545, kg, 04/19/20 14:37:00 CLOTH SANDER, Weight Famotidine 2019-04 Yes 40 mg, PO, M emoria 2-30 Daily, # l 20:40: 60 tab, 0 [place] 00 Refill(s) Nulev 2019-04 Yes 0.125 mg, Memoria 2-30 PO, QID, 0 l 20:40: Refill(s) [place] 00 Reglan 2019-04 Yes 0 Memoria 1-10 Refill(s) l 18:04: [place] 00 metoclopram 2019-04 1{tbl} Take 1 [place] dung HCl 1-10 -14 tablet by Method i (REGLAN 00:00: 00:[address] ORAL) 00 :00 needed. omeprazole 2019-04 No 20mg QD Take 1 [place] OTC - tablet (20 Methodi (PriLOSEC 00:00: 23:59 mg total) st OTC) 20 MG 00 :00 by mouth EC tablet daily for 30 days. metoclopram 2019-04- No 5mg [id number] Take 1 [place] dung 0-28 - [id number] tablet (5 Met hodi (Reglan) 5 00:00: 23:59 3D mg total) s t MG tablet 00 :00 by mouth 3 (three) times a day as needed (nausea, vomiting) for up to 5 days. lisdexamfet 2019-04- No 40mg QD Take 40 mg [place] amine 0-26 10-26 by mouth Methodi (VYVANSE) 13:16: 00:[address] 40 MG 29 :00 (per capsule patient, stopped taking it last week - unknown reason); (per [place] Prescripti on Drug Monitoring Program, last filled 12/18/19, quantity: 30, day supply: 30) topiramate 2019-04 2020- No 1{capsu QD Take [...] atropine 1 2019-04- No 1[drp] Q.5D Administer [place] % 0-20 10-20 1 drop to Methodi ophthalmic 18:40: 00:00 the right s t solution 28 :00 eye 2 (two) times a day. (start date: ~3 weeks ago - per patient) metoclopram 2019-04- No 5mg [id number] Take 1 [place] dung 0-20 - [id number] tablet (5 Met hodi (Reglan) 5 00:00: 00:00 3D mg total) s t MG tablet 00 :00 by mouth 3 (three) times a day as needed (nausea, vomiting) for up to 5 days. Vyvanse Vyvanse Yes Na Savage [address] 8-25 in the kes - 00:00: morning Memoria 00 l Outpati ent Clinics oxcarbazepi Yes 300 mg = 1 Memoria ne 300 MG 9-06 tab, PO, l Oral Tablet 16:04: BID, # 180 Ricardo [Trileptal] 19 tab, 3 Refill(s), Pharmacy: [id number] 24 HR 2018- Yes 100 mg = 1 Memori a topiramate 9-06 cap, PO, l 100 MG 16:04: Daily, # Ricardo Extended 10 90 cap, 3 Release Refill(s), Capsule Pharmacy: [[facility]] [id number] 24 No 100 mg = 1 Memori a topiramate 9-04 cap, PO, l 100 MG 18:31: Daily, X Ricardo Extended 05 30 day, # Release 30 cap, 3 Capsule Refill(s), [[facility]] Pharmacy: [facility] oxcarbazepi No 300 mg = 1 Memoria ne 300 MG 9-04 tab, PO, l Oral Tablet 18:31: BID, X 30 H ermann [Trileptal] 02 day, # 60 tab, 3 Refill(s), Pharmacy: [facility] lisdexamfet Yes 30 mg = 1 M emoria amine 8-09 cap, PO, l dimesylate 16:20: QAM, # 30 He rmann 30 MG Oral 00 cap, 0 Capsule Refill(s) [Vyvanse] omeprazole Yes 20 mg = 1 Me moria 20 mg oral 7-17 cap, PO, l delayed 00:27: Daily, # Murray n release 00 30 cap, 2 capsule Refill(s), Pharmacy: [facility] oxcarbazepi Yes 300 mg = 1 Memoria ne 300 MG 7-03 tab, PO, l Oral Tablet 18:01: BID, # 60 H ermann [Trileptal] 00 tab, 2 Refill(s), Pharmacy: [facility] 24 Yes 100 mg = 1 Memori a topiramate 6-28 cap, PO, l 100 MG 14:50: Daily, # Ricardo Extended 00 30 cap, 3 Release Refill(s), Capsule Pharmacy: [[facility]] [facility] topiramate Yes 25 mg = 1 Me moria 25 MG Oral 6-14 tab, PO, l Tablet 23:33: BID, # 60 Murray n [Topamax] 00 tab, 2 Refill(s), Pharmacy: [facility] Phenytoin Yes 200 mg = 2 Me moria sodium 100 6-13 cap, PO, l MG Extended 13:57: BID, # 120 [place] Release 00 cap, 3 Capsule Refill(s), [Dilantin] Pharmacy: [facility] [place] Alprazolam 2018- Yes 0.5 mg = 1 M emoria 0.5 MG Oral 6-13 tab, PO, l Tablet 13:28: TID, 0 [place] [Xanax] 00 Refill(s) Zyrtec 2018-0 Yes Daily, 0 Memoria 6-13 Refill(s) l 13:28: [place] 00 Phenytoin 0 No 100 mg = 1 Me moria sodium 100 6-13 cap, PO, l MG Extended 13:26: TID, # 90 H ermann Release 00 cap, 1 Capsule Refill(s) [Dilantin] VYVANSE 40 Yes 1{tbl} Take 1 MD mg capsule 9-19 tablet by Andrea rosario 00:00: mouth n 00 daily. Immunizations Ordered Immunization Filled Immunization Date Status Commen ts Source Name Name Bamlanivimab 2020-06-10 Completed [place] 00:00:00 [facility] FLUCELVAX QUAD PF 2020-02-06 Completed [place] 00:00:00 [facility] Influenza Split Completed MD [place] on 00:00:00 Vital Signs Vital Name Observation Time Observation Value Comments Source Systolic blood 2020-06-10 14:17:19 128 mm[Hg] Yurito n [facility] pressure Diastolic blood 2020-06-10 14:17:19 68 mm[Hg] Kaylen on [facility] pressure Heart rate 2020-06-10 14:17:19 88 /min [place] [facility] Body temperature 2020-06-10 14:17:19 36.11 Staci Yuri ton [facility] Respiratory rate 2020-06-10 14:17:19 16 /min Yuri Worley Oxygen saturation in 2020-06-10 14:17:19 98 /min Turner Worley Arterial blood by Pulse oximetry Body height 2020-06-10 12:48:00 167.6 cm Turner Worley Body weight 2020-06-10 12:48:00 94.802 kg Turner [place] BMI 2020-06-10 12:48:00 33.73 kg/m2 [place]ley Systolic (mm Hg) 2020-04-19 20:08:00 Unruly rial Ricardo Diastolic (mm Hg) 2020-04-19 20:08:00 Mem orial Ricardo Heart Rate 2020-04-19 20:08:00 [facility] [place] Respitory Rate 2020-04-19 20:08:00 Memori al Ricardo Height 2020-04-19 20:08:00 167.64 cm Memorial Ricardo Weight 2020-04-19 20:08:00 [facility] [place] BMI Calculated 2020-04-19 20:08:00 Memori al [place] Systolic (mm Hg) 2020-03-29 20:19:00 Unruly rial Ricardo Diastolic (mm Hg) 2020-03-29 20:19:00 Mem orial [place] Heart Rate 2020-03-29 20:19:00 Memorial Ricardo Respitory Rate 2020-03-29 20:19:00 Memori al [place] Height 2020-03-29 20:19:00 167.64 cm Memorial [place] Weight 2020-03-29 20:19:00 [facility] [place] BMI Calculated 2020-03-29 20:19:00 Memori al Ricardo Systolic (mm Hg) 2020-02-29 17:31:00 Unruly rial [place] Diastolic (mm Hg) 2020-02-29 17:31:00 Mem orial Ricardo Heart Rate 2020-02-29 17:31:00 Memorial [place] Respitory Rate 2020-02-29 17:31:00 Memori al Ricardo Height 2020-02-29 17:31:00 167.64 cm Memorial [place] Weight 2020-02-29 17:31:00 Memorial Ricardo BMI Calculated 2020-02-29 17:31:00 Memori al Ricardo Systolic (mm Hg) 2018-12-23 18:03:00 Unruly rial [place] Diastolic (mm Hg) 2018-12-23 18:03:00 Mem orial [place] Heart Rate 2018-12-23 18:03:00 Memorial Ricardo Respitory Rate 2018-12-23 18:03:00 Memori al [place] Height 2018-12-23 18:03:00 167.64 cm Memorial Ricardo Weight 2018-12-23 18:03:00 Memorial [facility] BMI Calculated 2018-12-23 18:03:00 Memori al Ricardo BMI Calculated 2018-11-27 15:59:00 Memori al [place] Weight 2018-11-27 15:59:00 Memorial Ricardo Height 2018-11-27 15:59:00 167.64 cm Memorial Ricardo Heart Rate 2018-11-27 15:59:00 Memorial Ricardo Respitory Rate 2018-11-27 15:59:00 Memori al [place] Systolic (mm Hg) 2018-11-27 15:59:00 Unruly rial Ricardo Diastolic (mm Hg) 2018-11-27 15:59:00 Mem orial Ricardo Heart Rate 2018-10-16 14:19:00 Memorial Ricardo Respitory Rate 2018-10-16 14:19:00 Memori al [place] Systolic (mm Hg) 2018-10-16 14:19:00 Unruly rial [place] Diastolic (mm Hg) 2018-10-16 14:19:00 Mem orial Ricardo BMI Calculated 2018-10-16 14:19:00 Memori al Ricardo Weight 2018-10-16 14:19:00 Memorial Ricardo Height 2018-10-16 14:19:00 167.64 cm Memorial [place] BMI Calculated 2018-10-01 13:18:00 Memori al [place] Weight 2018-10-01 13:18:00 [facility] [place] Height 2018-10-01 13:18:00 167.64 cm Memorial Ricardo Respitory Rate 2018-10-01 13:18:00 Memori al Ricardo Heart Rate 2018-10-01 13:18:00 Memorial Ricardo Systolic (mm Hg) 2018-10-01 13:18:00 Unruly rial Ricardo Diastolic (mm Hg) 2018-10-01 13:18:00 Mem orial [place] Procedures Procedure Date / Time Performing Clinician Source Performed MRI THORACIC SPINE W 2020-06-06 16:01:00 Caleb Kent [facility] CONTRAST MRI CERVICAL SPINE W 2020-06-06 16:01:00 Caleb Kent [facility] CONTRAST MRI BRAIN W WO CONTRAST 2020-06-06 16:00:00 Caleb Kent [facility] C-REACTIVE PROTEIN 2020-06-06 12:12:00 Jen Tsai Natvarlamatt INTERLEUKIN 6 2020-06-06 12:12:00 Jen sTai Met hodist Natvarlal FERRITIN LEVEL 2020-06-06 12:12:00 Jen Tsai Met hodist Natvarlal D-DIMER 2020-06-06 12:12:00 Jen Tsai Met hodist Natvarlal LDH 2020-06-06 12:12:00 Jen Tsai Met hodist Natvarlal FIBRINOGEN 2020-06-06 12:12:00 Jen Tsai Met hodist Natvarlal CT CHEST WO CONTRAST 2020-06-06 12:03:12 Eloise Dorsey on [facility] URINE CULTURE 2020-06-04 07:58:00 TrinydoroteoGilmaKanchan Turner Meth odist URINALYSIS SCREEN AND 2020-06-04 07:58:00 Eloise Dorsey [facility] MICROSCOPY, WITH REFLEX TO CULTURE HCG QUALITATIVE, URINE 2020-06-04 07:58:00 Eloise Dorsey [facility] SCREEN COVID-19 QUALITATIVE PCR 2020-06-04 07:45:00 Eloise Dorsey HC COMPLETE BLD COUNT 2020-06-04 02:45:00 Jose Gomez [facility] W/AUTO DIFF Imarendenewe COMPREHENSIVE METABOLIC 2020-06-04 01:56:00 Jose Gomez PANEL Imarendenewe ESTIMATED GFR 2020-06-04 01:56:00 Jose Gomez M ethodist Imarendenejose e OCT, OPTIC NERVE - OU - 2020-03-08 13:34:42 Chavo Bull BOTH EYES AUTOMATED VISUAL FIELD, 2020-03-08 13:34:38 Chavo Bull [facility] EXTENDED - OU - BOTH EYES DURABLE MEDICAL EQUIPMENT 2020-02-16 10:31:42 Blessing Maldonado [facility] Toni BASIC METABOLIC PANEL 2020-02-16 05:10:00 Sharlene Julian on Congregational [place] ESTIMATED GFR 2020-02-16 05:10:00 Abbyhumaira Blessingcharu [place] thodist Toni DURABLE MEDICAL EQUIPMENT 2020-02-15 15:56:49 Caleb Roque [facility] EMG 2020-02-15 12:46:48 Fior Batista [facility] thodist Childress HC COMPLETE BLD COUNT 2020-02-15 05:00:00 Eber Castro W/AUTO DIFF BASIC METABOLIC PANEL 2020-02-15 05:00:00 Eber Castro ESTIMATED GFR 2020-02-15 05:00:00 Shira Benedict Meth odginette VISUAL EVOKED POTENTIALS 2020-02-14 11:52:23 Dora Montalvo [...] CRYPTOCOCCAL ANTIGEN 2020-02-04 09:56:00 Andressa Givens on [facility] SCREEN GRAM STAIN 2020-02-04 09:56:00 Kim Guevara CSF CELL COUNT WITH 2020-02-04 09:56:00 Andressa Givens n [facility] DIFFERENTIAL GLUCOSE LEVEL, CSF 2020-02-04 09:56:00 Andressa Givens IGG SYNTHESIS RATE STUDY 2020-02-04 09:56:00 Andressa Givens VDRL, CSF SCREEN 2020-02-04 09:56:00 Andressa Givens ethodist LYME DISEASE REFLEXIVE 2020-02-04 09:56:00 Andressa Givens PANEL, CSF CYTOMEGALOVIRUS BY PCR 2020-02-04 09:56:00 Andressa Givens KAIDEN NOBLE VIRUS (EBV) 2020-02-04 09:56:00 Andressa Givens [...] HC COMPLETE BLD COUNT 2020-02-04 01:40:00 Aldo Pinedaist W/AUTO DIFF BASIC METABOLIC PANEL 2020-02-04 01:40:00 Aldo Pineda [facility] ESTIMATED GFR 2020-02-04 01:40:00 Kim Guevara URINE [...] Hernández SEDIMENTATION RATE 2020-02-03 18:25:00 Manan Hernández on [facility] RHEUMATOID FACTOR 2020-02-03 18:25:00 Manan Hernández THYROID [...] 14:27:00 Manan Hernández Tubal ligation [facility] Plan of Care Planned Activity Planned Date Details Comments Source Future Scheduled 2023-02-02 Screening for Turner Santoyo thodist Test 00:00:00 malignant neoplasm of cervix (procedure) [code = 935393171] Future Scheduled 2020-11-19 INFLUENZA VACCINE Murray mitchell [facility] Test 00:00:00 [code = INFLUENZA VACCINE] Future Scheduled 2004 Hepatitis C Turner hodist Test 00:00:00 screening (procedure) [code = 239311632] Future Scheduled 2002 COVID-19 VACCINE (1) Juan daniels [facility] Test 00:00:00 [code = COVID-19 VACCINE (1)] Encounters Start End Encounter Admission Attending Care Care Encounter Source Date/Time Date/Time Type Type Clinicians Facility Department ID 2020-08-08 2020-08-08 [id number]00 yadiel [facility] Outpat[facility] Clinics 2020-08-08 2020-08-08 [id number] 2020-08-07 2020-08-07 Outpatient [facility] [id number] [facility] 2020-07-26 2020-07-26 Outpatient [facility] [id number] [facility] 2020-07-20 2020-07-20 Outpatient [facility] [id number] [facility] 2020-07-10 2020-07-10 Outpatient [facility] [id number] [facility] 2020-07-10 2020-07-10 Outpatient [facility] [id number] [facility] 2020-07-06 2020-07-06 Outpatient [facility] [id number] [facility] 2020-07-04 2020-07-04 Outpatient [facility] [id number] [facility] 2020-06-30 2020-06-30 Outpatient [facility] [id number] [facility] 2020-06-27 2020-06-27 Outpatient [facility] [id number] [facility] 2020-06-20 2020-06-20 Outpatient [facility] [id number] [facility] 2020-06-19 2020-06-19 Outpatient [facility] [id number] [facility] 2020-06-14 2020-06-15 Outpatient MHMISCHER MHMISCHER [id number] 15:54:19 23:59:59 2020-06-12 2020-06-12 Outpatient [facility] [id number] [facility] 2020-06-12 2020-06-12 Outpatient [facility] [id number] [facility] 2020-06-10 2020-06-10 Outpatient FEDE [facility] [id number] [place] 00:00:00 00:00:[address] 2020-06-09 2020-06-09 Outpatient [facility] [id number] [facility] 2020-06-09 2020-06-09 Outpatient STLC STLC [id number] [facility] St 00:00:00 00:00:00 [facility] 2020-06-04 2020-06-07 [id number] 47 [place] 00:00:00 00:00:00 JEN Leighton Meth tanvi st 2020-05-31 2020-05-31 Outpatient Juliet, MHMISCHER MHMISCHER [id number] 11:30:00 23:59:59 David 12 Marck 2020-05-31 2020-05-31 Outpatient Juliet, MHMISCHER MHMISCHER [id number] 15:30:00 15:30:00 David 11 Marck 2020-04-19 2020-04-19 Outpatient Juliet, MHMISCHER MHMISCHER [id number] 14:00:00 23:59:59 David 10 Marck 2020-04-18 2020-04-18 Outpatient [facility] [id number] [facility] 2020-04-11 2020-04-11 Outpatient Juliet, MHMISCHER MHMISCHER [id number] 10:00:00 23:59:59 David 09 [place] 2020-03-29 2020-03-29 Outpatient Annettemaxime, [facility] [id number] 14:00:00 23:59:59 David 08 [place] 2020-03-22 2020-03-22 Outpatient [facility] [id number] [facility] 2020-03-16 2020-03-16 Outpatient [facility] [id number] [facility] 2020-03-08 2020-03-08 Outpatient CHAVO BULL [facility] [id number] [place] 00:00:00 00:00:[address] 2020-03-07 2020-03-07 Outpatient [facility] [id number] [facility] 2020-02-29 2020-02-29 Outpatient FAYE ChungTNSCHER MISCHER [id number] 11:15:00 23:59:59 David 07 Marck 2020-02-21 2020-02-21 Outpatient [facility] [id number] [facility] 2020-02-17 2020-02-17 Outpatient [facility] [id number] [facility] 2020-02-12 2020-02-16 Inpatient KEVIN [facility] [id number] [place] 00:00:00 00:00:00 BLESSING [address] 2020-02-15 2020-02-15 Outpatient Juliet, FAYEMISCHER MISCHER [id number] 09:15:00 09:15:00 David 06 [facility] 2020-02-09 2020-02-09 Outpatient [facility] [id number] [facility] 2020-02-03 2020-02-08 Inpatient VARSHA, [facility] [id number] 55 [place] 00:00:00 00:00:00 MICHAEL [address] 2020-01-17 2020-01-17 Outpatient [facility]ML[facility] [id number] [facility]00 [facility] Outpati ent Clinics 2019-12-14 2019-12-14 [facility] [id number] [facility] 10:48:00 10:48:00 t Over 41 Females [facility] Medicine l Medicine Outpati ent Clinics 2019-11-23 2019-11-23 [facility] [id number] [facility] 09:00:00 09:00:00 t Over 41 Females [facility] Medicine l Medicine Outpati ent Clinics 2019-11-23 2019-11-23 [facility] [id number] 08:05:00 08:05:00 t [facility] [employer] [facility] Medicine Outpati ent Clinics 2019-10-15 2019-10-15 [facility] [id number] 08:44:00 08:44:00 t Over 41 Females [facility] Medicine Outpati ent Clinics 2019-09-07 2019-09-07 [facility] [id number] 11:56[facility]00 11[facility]56[facility]00 [facility] [employer] [facility] Medicine Outpat[facility] Clin[facility] 2019-08-13 2019-08-13 [facility] [id number] 10:20:00 10:20:00 t Over 41 Females [facility] l Medicine Outpati ent Clinics 2019-08-12 2019-08-12 [facility] [id number] 09:49:00 09:49:00 t Over 41 Females [facility] l Medicine Outpati ent Clinics 2019-06-15 2019-06-15 [facility] [id number] [facility] 15:24:00 15:24:00 t Over 41 Females [facility] Medicine Outpati ent Clinics 2019-06-09 2019-06-09 [facility] [id number] 08:40:00 08:40:00 t [facility] [employer] [facility] l Medicine Outpati ent Clinics 2019-06-03 2019-06-03 [facility] [id number] 10:52:00 10:52:[address] Luke s - Drive [facility] Medicine Outpati ent Clinics 2019-05-28 2019-05-28 [facility] [id number] 16:20:00 16:20:[address] Luke s - Drive [facility] Medicine Outpati ent Clinics 2019-05-21 2019-05-22 Outpatient MISCHER MISCHER [id number] 14:44:00 23:59:59 00 2019-04-28 2019-04-28 Outpatient [facility] [id number] 13:00:00 13:00:00 Davidgrayson Acharya 2019-01-01 2019-01-01 [facility] [id number] 15:32:00 15:32:00 t Baisden Baisden [employer] Luke s - Drive [facility] Medicine Outpati ent Clinics 2018-12-31 2018-12-31 [facility] [id number] 09:55:00 09:55:00 t Baisden Bais[place] [employer] Luke s - Drive [facility] Medicine Outpati ent Clinics 2018-12-30 2018-12-30 [facility] [id number] 13:25:00 13:25:00 t Baisden Baisden [employer] Luke s - Drive [facility] Medicine Outpati ent Clinics 2018-12-30 2018-12-30 [facility] [id number] 08:00:00 08:00:00 t Baisden Baisden [employer] Luke s - Drive [facility] Medicine Outpati ent Clinics 2018-12-29 2018-12-29 [facility] [id number] 09:42:00 09:42:[address] Luke s - Drive [facility] Medicine Outpati ent Clinics 2018-12-23 2018-12-23 Outpatient Juliet MISCHER MISCHER [id number] 13:15:00 23:59:59 David Catrina Marck 2018-12-04 2018-12-04 [facility] [id number] [facility] 16:20:00 16:20:[address] Luke s - [employer] [facility] Medicine Outpati ent Clinics 2018-11-30 2018-11-30 [facility] [id number] 10:08:00 10:08:00 t Urgent Urgent Care L [facility] Outpati ent Clinics 2018-11-27 2018-11-27 Outpatient FAYE ChungMISCHER MISCHER [id number] 10:45:00 23:59:59 David 03 [facility] 2018-11-27 2018-11-27 [facility] [id number] [address] 13:00:00 13:00:00 [facility] [employer] [facility] Out[facility] Clin[facility] 2018-10-29 2018-10-29 [facility] [id number] 10:40:00 10:40:00 [facility] [employer] [facility] [employer] [facility] Out[facility] Clinics 2018-10-16 2018-10-16 Outpatient FAYE ChungMISCHER MISCHER [id number] 09:00:00 23:59:59 David 02 [facility] 2018-10-02 2018-10-02 Outpatient FAYE ChungMISCHER MHMISCHER [id number] 15:00:00 23:59:59 David 01 [facility] 2018-10-01 2018-10-01 Outpatient FAYE ChungMISCHER MHMISCHER [id number] 08:15:00 23:59:59 David 00 [facility] 2018-09-30 2018-09-30 [facility] [id number] 13:00:00 13:00:00 [facility] [employer] [facility] [employer] [facility] Out[facility] ent Clinics 2018-08-31 2018-08-31 [facility] [id number] 11:00:00 11:00:00 [facility] [employer] [facility] [employer] [facility] Outpati ent Clinics 2018-07-27 2018-07-27 [facility] [id number] 13:54:00 13:54:00 [facility] [employer] - Drive [facility] Medicine Outpati ent Clinics 2018-07-23 2018-07-23 [facility] [id number] 08:53:00 08:53:00 [facility] 2018-07-23 2018-07-23 [facility] [id number] 08:15:00 08:15:00 [facility] s Drive [facility] Outpati ent Clinics 2018-06-22 2018-06-22 [facility] [id number] 10:30:00 10:30:00 [facility] Outpati ent Clinics 2018-05-04 2018-05-04 [facility] [id number] 12:00:00 12:00:00 [facility] 2018-04-02 2018-04-02 [facility] [id number] 09:00:00 09:00:00 [facility] Results Test Description Test Time Test Comments Results Result [facility] e Comments MRI Thoracic 2020-05-22 [facility] Spine W Contrast 6 Radiology Results M ethodist 17:13:41 Incoming - 06/06/2020 5:16 PM CST EXAMINATION: MRI THORACIC SPINE W CONTRASTCLINICAL HISTORY: Evaluation [...] or neural foraminal stenosis.[id number]_PS02 MRI Cervical 2020-05-22 [facility] Spine W Contrast 6 Radiology Results M ethodist 17:08:17 Incoming - 06/06/2020 5:11 PM CST EXAMINATION: MRI CERVICAL SPINE W CONTRASTCLINICAL HISTORY: Right [...] identified.[id number] MRI Brain W Wo 2020-05-22 [facility] Contrast [address] 16:41:58 Incoming - 06/06/2020 4:45 PM CST EXAMINATION: MRI BRAIN W WO CONTRASTCLINICAL HISTORY: RIght [...] lesion or other acute intracranial abnormality.1M2RAD_PS 02 CT Chest Wo 2020-05-22 [facility] Contrast [address] 12:08:03 Incoming - 06/06/2020 12:11 PM CST EXAMINATION: CT CHEST WO CONTRASTHISTORY: COVID-19 positive with chest tightnessTECHNIQUE: CT examination [...] No suspicious pulmonary nodule.Pleural: No effusion or pneumothorax.Cardiova scular: Heart size normal. No pericardial effusion. No appreciable calcific coronary artery disease.Mediastinum/N odes: No thoracic lymphadenopathy. Musculoskeletal: No acute or aggressive-appearing osseous lesion. Upper abdomen: Cholecystectomy clips. Upper limit of normal-size spleen.IMPRESSION:1.F ew faint peripheral groundglass opacities in both lower lobes. Together with the positive lab findings, this is compatible with mild Covid pneumonia.[facility]-[id number] Urine culture 2020-06-04 12:51:05 Test Item Value Reference Range Interpretation Comme nts Urine culture (test code = 0220078) SEE COMMENT Bacteriuria screen negative. Turner WhatleyistOCT, Optic Nerve - [id number] 13:34:42Chavo Bull MD - 05/24/2020 5:54 PM CSTFormatting of this note might be different from the origi nal.Turner WhatleyistAutomated Visual Field, Extended - [id number] 13:34:39 Chavo Bull MD - 05/24/2020 5:54 PM CST Turner Whatleyist3 in 1 [id number] 11:07:52 Test Item Value Reference Range Interpretation Comments SUPPLIER NAME (test XMED Oxygen and code = 6415) Medical SUPPLIER PHONE (test [phone] code = 6416) ORDER STATUS (test code Delivery Successful = 6417) DELIVERY NOTE (test code = 6419) REQUESTED DELIVEY DATE 02/16/2020 (test code = 6420) ITEM DESCRIPTION (test 3 in 1 Commode Qty : 1 code = 6423) ACTUAL DELIVERY DATE 02/16/2020 (test code = 6422) Turner WhatleyistEMG General [id number] 13:23:11Electromyogram and NCS ReportCAROLINAEAST MEDICAL [facility]ENTER Neurological Jhndnbptm0918Fvzo,WP11,Turner,WN93908Q: F : Patient: Snow Argueta Physician: Nicolasa [...] Site: Wrist Pk Lat (ms) Amp (uV)Stim Qolz9mx dig 2.5 21.0 Sensory Nerve Study Right [...] Tibial Nerve Left Tibial Nerve Right Tibial NerveEnglewood MethodistVisual evoked potentials 2020-02-15 10:07:24 PATTERN REVERSAL VISUAL EVOKED POTENTIAL REPORT Patient Name: Snow Argueta Date of : 1985 Gender: female Date of Procedure: 02/14/2020 IndicationVision loss FindingsPattern reversal visual evoked potentials were obtained following independent left and right full field monocularstimulation. ZlaH345 absolute latencies were 99.8 msec and 102.6 msec following independent left andright eye stimulation. All interpeak latencies and waveform morphologies were normal. ImpressionThisis a normal study. ICD10 Code/Diagnosis: P60Twgkgey MethodistMRI Lumbar Spine W Wo [id number] 11:16:59Hm Interface, Radiology Results 02/13/2020 11:20 AM CDT EXAMINATION: MRI LUMBAR SPINE W WO CONTRASTCLINICAL HISTORY: New lower extremity weaknessCOMPARISON: NoneTECHNIQUE: Multiplanar [...] enhancement identified.Evaluation of the visualized soft tissues demonstratesno mass, adenopathy or aneurysm. Axial images through the disc spaces demonstrate the following:L1-L2: No significant posterior disc disease, spinal canal, subarticular zone, or neural foraminal stenosis.L2-L3: No significant posterior disc disease, spinal canal, subarticular zone, or neural foraminalstenosis.L3- L4: No significant posterior disc disease, spinal canal, [...] disease, spinal canal, subarticular zone, or left neural foraminal stenosis. Mild to moderate facet arthrosis is noted bilaterally.L5-S1: No significant posterior disc disease, spinal canal, subarticular zone, or neural foraminal stenosis. Moderate facet arthrosis is noted bilaterally.Evaluation of other visualized levels demonstrates no significant posterior disc disease, spinal canal, subarticular zone, or neural foraminal stenosis.IMPRESSION: Mild right neural foraminal stenosis at L4-L5 secondary to foraminal disc protrusion, including questionable contact of the exiting L4 nerve root on the right. Recommend correlation to radiculopathy distribution.[facility]-[id number] MethodInscription House Health CenterI Brain [id number] 09:57:03Hm Interface, Radiology Results Incoming - 02/13/2020 10:00 AM CDT EXAM: MRI BRAIN VENOGRAMCLINICAL HISTORY: Headache chronic normal neuro examTECHNIQUE: Head MR venogram using 2D dbpf-wb-icljjz technique with multi-planar MIP and 3D reconstruction.COMPARISON: [...] no definite evidence of dural sinus venous thrombosis.[id number]_PS01[place] MethodistVENIPUNC NEED PHYS SKILL,DX OR [id number] 10:39:11CFamilia hickey RN 02/08/2020 10:40 AMMidline Date/Time: [...] Patient identity confirmed: Verbally with patient, hospital-assigned identif ication number and arm bandPre-procedure details: Hand hygiene: Hand hygiene performed prior to insertion Sterile barrier technique: All elements of maximal sterile technique followed Skin preparation: ChloraPrep Skin preparation agent: Dried prior to procedure Anesthesia (see MAR for exact dosages): Anesthesia method: Local infiltration Local anesthetic: Lidocaine 1% w/o epi Route administered: SubcutaneousMidLine Placement Details (Will create an LDA): Patient position: Flat Vessel Size (mm): 5 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 Location: Left basilic Device Type:Non-valved Catheter Lumen(s): Single lumen Catheter size: 3 Fr Catheter to vein ratio: 24%MidLine Characteristics: Catheter Brand: SL PROVENA MIDLINE Internal Catheter Length (cm): 12 TotalCatheter Length (cm): 12 Catheter Lot Number: [id number] Catheter Expiration Date: 2Procedure details: Landmarks identified: [...] tolerance of procedure: Tolerated well, no immediate complicationsEnglewood Congregational duplex venous upper [id number] 22:03:00Interface, Radiology Results In - 02/07/2020 10:03 PM CDT Vascular Ultrasound Laboratory Upper Extremity Venous Report [id number] [place] [address] Pat.Name: SNOW ARGUETA Namrata.ID: [id number] .Date: 02/07/2020 Refer.MD: MICHAEL MADDOX MD Exam Time: 4:33:00PM Study Type:UE Venous Height: 66in Weight: 220lb BSA: 2.08 m2 Age: 7 1985,34Y Sex: FEMALE Sonogrphr: Davis Vi, RVT Pat. Stat.:Inpatient Room: VU11-9550-A Tape Vol: , [facility] - 4: [id number] Echo Event ID:[id number] Order ID: [id number] Reason for Study:Right arm pain and swelling. S/P midline removal on02/07/2020.Procedures: Colorflow, Grayscale/2D, Pulsed wave DopplerRace: D SUMMARY: DUPLEX SCAN OBSERVATIONS Right LeftIJ Normal Subclavian Normal NormalAxillary Normal Brachial Normal Basilic Obstructed [...] given to EBONIE Husain at 17:30 PM on02/07/2020.PHYSICIAN INTERPRETATION Venous examination of the right upper extremity and neck demonstratedno evidence of deep venous thrombosis.Obstructed superficial venous thrombosis of right upper arm basilicvein. FINDINGS: Signed 02/07/2020 10:03 Yessi Obrien MD, [facility] Congregational Flow cytometry [id number] 09:52:18 Test Item Value Reference Range Interpretation Comments Case number (test code = [id number]) Flow cytometry evaluation See link below for (test code = [id number]) PDF Lab Report [place] NEED PHYS SKILL,DX OR [id number] 09:18:07Javier Kolb RN 02/07/2020 9:21 AMMidline Date/Time: [...] to vein ratio: 41%MidLine Characteristics: Catheter Brand: ANGIOMarblar External Catheter Length (cm): 0 Internal Catheter Length (cm): 12 Total Catheter Length (cm): 12 Catheter Lot Number: [id number] Catheter Expiration Date: 1Procedure details: Landmarks identified: [...] tolerance of procedure: Tolerated well, no immediate complicationsEnglewood MethodistECG 12 [id number] 12:49:19 Test Item Value Reference Range Interpretation Comments Ventricular rate (test 78 code = 253) Atrial rate (test code 78 = 255) WI interval (test code 144 = 266) QRSD [...] of 04-FEB-2020 04:50,-No significant change was found- [place]le[place] MethodistXR Chest 1 Vw [id number] 22:09:52Hm Interface, Radiology Results - 02/05/2020 10:12 PM CDT EXAMINATION: XR CHEST 1 VW PORTABLECLINICAL HISTORY: 34 years Female chest pressure on exertionCOMPARISON: None.IMPRESSION:No acute cardiopulmonary disease.FINDINGS:The cardiomediastinal silhouette, lungs, and regional skeletal structures are within normal limits for age.[facility]-OT69SXNHTppngbo MethodistCytology (non-gynecological) [id number] 18:15:16 Test Item Value Reference Range Interpretation Comments Case number (test code = [id number]) Cytology See link below for (non-gynecological) PDF Lab Report report (test code = 1178) Result status (test code This is Final Report = [id number]) for [id number] [place] MethodistEEG (routine)2020-02-04 10:51:25EEG AWAKE AND ASLEEP [...] or epileptiform activity was recorded. ICD-10 Code: K780Esoorjb MethodistIR Lumbar Puncture by Radiology 2020-02-04 10:23:15Hm Interface, Radiology Results 02/04/2020 10:26 AM CDT EXAMINATION: IR LUMBAR PUNCTURECLINICAL HISTORY: meningitis versus leukemia [...] CSF fluid was withdrawn. Patient complained of radic ulopathy after 12 cc of fluid was withdrawn.No complications.Total fluoroscopic time was 0.2 minutes. Total air kerma was 5 mGy.IMPRESSION:Successful fluoroscopic guided lumbar puncture.Opening pressure was 21 cm of water.[facility]-[id number] MethodistMRI Brain & Orbit W Wo Contrast 2020-02-03 22:36:27Hm Interface, Radiology Results 02/03/2020 10:39 PM CDT EXAMINATION: MRI BRAIN & ORBIT W WO CONTRASTCLINICAL HISTORY: VisionlossCOMPARISON: CT brain dated 02/03/2020.FINDINGS:Pre and postcontrast MRI of the brain and orbits is interpreted.The optic nerves, optic chiasm, and optic tracts are normal in size and signal intensity. There is no abnormal enhancement.The brain is normal in morphology and in signal intensity.There is no abnormal restricted diffusion.No extra-axial collection or mass effect is seen.The major vascular flow-voids are preserved.IMPRESSION:Unremarkable MRI of the brain and orbits.[facility]-[id number] MethodistCT Head Wo [id number] 16:17:18Hm Interface, Radiology Results 02/03/2020 4:20 PM CDT EXAM: CT HEAD WO CONTRASTCLINICAL HISTORY: headache loss of vision concern for ICPTECHNIQUE: Noncontrast enhanced images of the brain were obtained from the skull base to the vertex. Both soft tissue and bone reconstruction algorithms were performed. CT scans are performedusing radiation dose reduction techniques (iterative reconstruction and/or automated exposure control). Technical factors are evaluated and adjusted to ensure appropriate moderation of exposure. Automated dose management technology is applied to adjust radiation exposure while achieving a diagnostic quality image.COMPARISON: None.FINDINGS:The chun-white matter differentiation is preserved and without evidence of acute territorial infarction. There is no evidence for acute intracranial hemorrhage, mass, mass effect, hydrocephalus, or extra-axial fluid collection.Crowding of the foramen magnum secondary to mild cerebellar tonsillar ectopia.Orbits are unremarkable. Mild mucosal thickening identifiedin fairly within the right maxillary sinus. Remaining paranasal sinuses are clear. Mastoid air cells are normally pneumatized. Osseous structures are intact.IMPRESSION:No CT evidence for acute intracranial abnormality.1M2RAD_PS01[place] [facility]
[2020-08-15 13:02] LABS: Bilirubin Direct 0.1 mg/dL (0-0.2); Bilirubin Total 0.4 mg/dL (0.2-1.0); Potassium 3.5 mmol/L (3.5-5.1); Protein, Total 7.1 g/dL (6.4-8.2)
[2020-08-15 13:04] LABS: Absolute Lymphocytes (CBC) 1.6 K/uL (0.7-4.9); Basophils % 0.3 % (0-1.3); Hematocrit 37.1 % (36.0-45.0); Lymphocytes % 21.7 % (15.3-44.8); MPV 10.9 fL (7.6-11.3); RBC Red Blood Cell Count 4.14 M/uL (3.86-4.86)
--- NOTE | 2020-08-15 13:05 | RAD REPORT ---
EXAM DESCRIPTION: CT - Abdomen Pelvis W Contrast - 08/15/2020 12:36 pm CLINICAL HISTORY: Abdominal pain COMPARISON: June 2020 TECHNIQUE: Computed axial tomography of the abdomen pelvis was obtained. 100 cc Isovue-300 was admin istered intravenously. Oral contrast was not requested which limits evaluation of bowel. All CT scans are performed using dose optimization technique as appropriate and may include automated exposure control or mA/KV adjustment according to patient size. FINDINGS: Mild fatty liver. Cholecystectomy Spleen, pancreas, adrenal and kidneys appear unremarkable. There is no evidence of diverticulitis. Appendectomy. Uterus is retroverted. No adnexal mass A tampon within the vagina IMPRESSION: No acute abnormality is displayed.
[2020-08-15] MEDS ORDERED: PROMETHAZINE INJ 25 MG/ML AMP ONE (13:22)
[2020-08-15] MEDS ORDERED: MAGNESIUM CITRATE 300 ML BOT ONE (13:23)
--- NOTE | 2020-08-15 14:02 | EDPHYS ---
Physician Documentation [facility] Name: Snow Argueta Age: 34 yrs Sex: Female : 1985 Arrival Date: 08/15/2020 Time: 10:59 Bed 28 Private MD: Soco Savage ED Physician Juanito Ralph HPI: 08/15 13:11 This 34 yrs old Female presents to ER via Ambulatory with complaints of m Abdominal Pain, Rectal Bleeding. 13:11 The patient presents with abdominal pain. Onset: The symptoms/episode began/occurred jmm gradually, 3 week(s) ago. The symptoms do not radiate. Associated signs and symptoms: Pertinent positives: rectal bleeding. Modifying factors: The symptoms are alleviated by nothing, the symptoms are aggravated by nothing. The patient has not experienced similar symptoms in the past. 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 - Social history:: Smoking status: Patient denies any tobacco usage or history of. ROS: 13:11 Constitutional: Negative for fever, chills, and weight loss, Cardiovascular: Negative jmm for chest pain, palpitations, and edema, Respiratory: Negative for shortness of breath, cough, wheezing, and pleuritic chest pain. 13:11 Abdomen/GI: Positive for abdominal pain, constipation. 13:11 All other systems are negative. Exam: 12:51 ECG was reviewed by the Attending Physician. jmm 13:11 Constitutional: This is a well developed, well nourished patient who is awake, alert, jmm and in no acute distress. Head/Face: atraumatic. Eyes: EOMI, no conjunctival erythema appreciated ENT: Moist Mucus Membranes Neck: Trachea midline, Supple Chest/axilla: Normal chest wall appearance and motion. Cardiovascular: Regular rate and rhythm. No edema appreciated Respiratory: Normal respirations, no respiratory distress appreciated Abdomen/GI: Non distended, soft Back: Normal ROM Skin: General appearance color normal MS/ Extremity: Moves all extremities, no obvious deformities appreciated, no edema noted to the lower extremities Neuro: Awake and alert, normal gait Psych: Behavior is normal, Mood is normal, Patient is cooperative and pleasant Vital Signs: 11:51 BP 142 / 92; Pulse 89; Resp 18; Temp 98.6(O); Pulse Ox 100% on R/A; Weight 88 kg; em Height 5 ft. 6 in. (167.64 cm); Pain 10/10; 12:53 BP 126 / 80; Pulse 83; Resp 16; Pulse Ox 100% on R/A; zb 13:50 BP 117 / 75; Pulse 80; Resp 16; Pulse Ox 100% on R/A; zb 11:51 Body Mass Index 31.31 (88.00 kg, 167.64 cm) em MDM: 12:21 Patient medically screened. [facility] 14:00 Data reviewed: vital signs, nurses notes. Counseling: I had a detailed discussion with [facility] the patient and/or guardian regarding: the historical points, exam findings, and any diagnostic results supporting the discharge/admit diagnosis, lab results, radiology results, the need for outpatient follow up, to return to the emergency department if symptoms worsen or persist or if there are any questions or concerns that arise at home. ED course: Imaging studies negative. Patient is advised to follow up with gi and otherwise given strict return precautions. patient understood and agrees with the plan of care. . 08/15 12:04 Order name: Basic Metabolic Panel; Complete Time: 13:09 [facility] 08/15 12:04 Order name: CBC with Diff; Complete Time: 13: [facility] 08/15 12:04 Order name: Hepatic Function; Complete Time: 13: [facility] 08/15 12:04 Order name: Lipase; Complete Time: 13: [facility] 08/15 12:26 Order name: Type And Screen [facility] 08/15 12:27 Order name: Troponin (emerg Dept Use Only); Complete Time: 13:40 [facility] 08/15 12:04 Order name: IV Saline Lock; Complete Time: 12:39 [facility] 08/15 12:04 Order name: Labs collected and sent; Complete Time: 12:41 [facility] 08/15 12:27 Order name: CT Abd/Pelvis - IV Contrast Only; Complete Time: 13:09 [facility] 08/15 12:27 Order name: EKG - Nurse/Tech; Complete Time: 12:52 jmm EC:51 Rate is 75 beats/min. Rhythm is regular. QRS [place] is Normal. [place] interval is normal. QRS jmm interval is normal. QT interval is normal. No Q waves. T waves are Normal. No ST changes noted. Reviewed by me. Administered Medications: 13:00 Drug: Magnesium Citrate Liquid 300 ml Route: PO; zb 13:59 Follow up: Response: No adverse reaction; Marked relief of symptoms zb 13:00 Drug: Promethazine 12.5 mg Route: IVP; Site: left antecubital; zb 13:59 Follow up: Response: No adverse reaction; Nausea is decreased zb Disposition: 08/15/20 14:01 Discharged to Home. Impression: Unspecified abdominal pain. - Condition is Stable. - Discharge Instructions: Abdominal Pain, Adult. - Medication Reconciliation Form, Thank You Letter, Antibiotic Education, Prescription Opioid Use form. - Follow up: Private Physician; When: 2 - 3 days; Reason: Recheck today's complaints, Continuance of care, Re-evaluation by your physician. Addendum: 08/17/2020 06:32 Co-signature as Attending Physician, Juanito Ralph MD I agree with the assessment and t w4 plan of care. Signatures: Dispatcher [employer] EDMich Bullock PA PA jmm Munoz, Edgar, RN RN Juanito Hampton MD MD tw4 Christin Birch RN RN zb Corrections: (The following items were deleted from the chart) 08/15 14:15 14:01 08/15/2020 14:01 Discharged to Home. Impression: Unspecified abdominal pain. zb Condition is Stable. Forms are Medication Reconciliation Form, Thank You Letter, Antibiotic Education, Prescription Opioid Use. Follow up: Private Physician; When: 2 - 3 days; Reason: Recheck today's complaints, Continuance of care, Re-evaluation by your physician. juan
--- NOTE | 2020-08-15 14:02 | ER ---
Nurse's Notes [facility] Name: Snow Argueta Age: 34 yrs Sex: Female : 1985 Arrival Date: 08/15/2020 Time: 10:59 Bed 28 Private MD: Soco Savage Diagnosis: Unspecified abdominal pain Presentation: 08/15 11:51 Chief complaint: Patient states: lower abdominal pain with nauseda for 3 weeks with em constipation/bloating, also reports parkinson red blood last night, reports taking blood thinners for DVT's in May. Coronavirus screen: Client denies travel out of the [place] in the last 14 days. Ebola Screen: Patient negative for fever greater than or equal to 101.5 degrees Fahrenheit, and additional compatible Ebola Virus Disease symptoms Patient denies exposure to infectious person. Patient denies travel to an Ebola-affected area in the 21 days before illness onset. No symptoms or risks identified at this time. Initial Sepsis Screen: Does the patient meet any 2 criteria? No. Patient's initial sepsis screen is negative. Does the patient have a suspected source of infection? No. Patient's initial sepsis screen is negative. Risk Assessment: Do you want to hurt yourself or someone else? Patient reports no desire to harm self or others. Onset of symptoms was August 15, 2020. 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 - Social history:: Smoking status: Patient denies any tobacco usage or history of. Screenin:37 Abuse screen: Denies threats or abuse. Denies injuries from another. Nutritional zb screening: No deficits noted. Tuberculosis screening: No symptoms or risk factors identified. Fall Risk None identified. Assessment: 12:34 General: Appears in no apparent distress. uncomfortable, Behavior is calm, cooperative, zb appropriate for age, Reports feeling ill for > 3 days. Pain: Complains of pain in suprapubic area, right lower quadrant and left lower quadrant, left side chest pain Pain does not radiate. Pain currently is 8 out of 10 on a pain scale. Quality of pain is described as aching, crampy, dull, pressure. Neuro: Level of Consciousness is awake, alert, obeys commands, Oriented to person, place, time, situation, Moves all extremities. Full function. Cardiovascular: Capillary refill < 3 seconds Patient's skin is warm and dry. Respiratory: Airway is patent Respiratory effort is even, unlabored, Respiratory pattern is regular, symmetrical, the patient has mild shortness of breath. GI: Abdomen is round Bowel sounds present X 4 quads. Abdomen is tender to palpation in suprapubic area, right lower quadrant and left lower quadrant Reports lower abdominal pain, constipation, cramping, rectal bleeding, Patient currently denies nausea, vomiting. Derm: Skin is intact, is healthy with good turgor, Skin is dry, Skin is normal, Skin temperature is warm. Musculoskeletal: Circulation, motion, and sensation intact. Range of motion: intact in all extremities. 12:35 Reassessment: notified ecp of patient c/o of left side chest pain. EKG and trop ordered.zb 12:38 Reassessment: pt currently in CT. zb 13:59 Reassessment: ecp at bedside. zb 14:11 Reassessment: Patient appears in no apparent distress at this time. Patient and/or zb family updated on plan of care and expected duration. Pain level reassessed. Patient is alert, oriented x 3, equal unlabored respirations, skin warm/dry/pink. nausea decrease. d/c instructions given. patient able to ambulated out. Vital Signs: 11:51 BP 142 / 92; Pulse 89; Resp 18; Temp 98.6(O); Pulse Ox 100% on R/A; Weight 88 kg; em Height 5 ft. 6 in. (167.64 cm); Pain 10/10; 12:53 BP 126 / 80; Pulse 83; Resp 16; Pulse Ox 100% on R/A; zb 13:50 BP 117 / 75; Pulse 80; Resp 16; Pulse Ox 100% on R/A; zb 11:51 Body Mass Index 31.31 (88.00 kg, 167.64 cm) ED Course: 10:59 Patient arrived in ED. am2 10:59 Soco Savage MD is Private Physician. am2 11:54 Triage completed. em 11:56 Arm band placed on. em 12:02 Mich Carrion PA is PHCP. jmm 12:02 Juanito Ralph MD is Attending Physician. m 12:10 Christin Birch, EBONIE is Primary Nurse. zb 12:36 CT Abd/Pelvis - IV Contrast Only In Process Unspecified. EDMS 12:37 Inserted saline lock: 20 gauge in left antecubital area, using aseptic technique. zb 12:38 Patient has correct armband on for positive identification. Bed in low position. Call zb light in reach. Side rails up X 1. Pulse ox on. NIBP on. Door closed. Noise minimized. 12:52 EKG done, by ED staff, reviewed by Mich GEE. zb 14:11 No provider procedures requiring assistance completed. IV discontinued, intact, zb bleeding controlled, No redness/swelling at site. Pressure dressing applied. Administered Medications: 13:00 Drug: Magnesium Citrate Liquid 300 ml Route: PO; zb 13:59 Follow up: Response: No adverse reaction; Marked relief of symptoms zb 13:00 Drug: Promethazine 12.5 mg Route: IVP; Site: left antecubital; zb 13:59 Follow up: Response: No adverse reaction; Nausea is decreased zb Outcome: 14:01 Discharge ordered by . jmjuan 14:11 Discharged to home ambulatory. zb 14:11 Condition: stable 14:11 Condition: stable 14:11 Discharge instructions given to patient, Instructed on discharge instructions, follow up and referral plans. Demonstrated understanding of instructions, follow-up care. 14:15 Patient left the ED. zb Signatures: Dispatcher [employer] EDMS Mich Carrion PA PA jmm Munoz, Edgar, RN RN Maddy Cadena am2 Brown, Christin, RN RN zb Corrections: (The following items were deleted from the chart) 13:25 13:00 Promethazine 12.5 mg IVP in right antecubital anirudh oleary
[2020-08-15 14:48] VITALS: TEMP 98.6; O2SAT 100
[2020-08-15 14:51] VITALS: BP 117/75
--- NOTE | 2020-08-16 12:53 | EKG ---
Test Date: 2020-08-15 Test Time: 12:47:28 Director Of Intelligence: ROSALES MEASUREMENT RESULTS: Intervals: Rate: 75 RI: 158 QRSD: 86 QT: 392 QTc: 437 [place]: P: 51 RI: 158 QRS: 46 T: 42 INTERPRETIVE STATEMENTS: Normal sinus rhythm Normal ECG Compared to ECG 06/19/2020 19:05:42 No significant changes Electronically Signed On 08-16-20 12:52:09 CDT by Bryant Dickerson
== END 2020-08-15 14:15 | disposition home or self-care (01) ==
LOC: ER 10:55
DX: R10.9 Unspecified abdominal pain (principal); K62.5 Hemorrhage of anus and rectum; F90.9 Attention-deficit hyperactivity disorder, unspecified type; Z86.73 Personal history of transient ischemic attack (TIA), and cerebral infarction without residual deficits; G40.909 Epilepsy, unspecified, not intractable, without status epilepticus; K21.9 Gastro-esophageal reflux disease without esophagitis; Z85.6 Personal history of leukemia; E03.9 Hypothyroidism, unspecified
CPT/HCPCS: 85025; 80048; 36415; 86900; 86850; 86901; 80076; 84484; 83690; 74177; Q9967; J2550; 93005; 96374; 99284

== ENCOUNTER 2020-10-10 17:39 | Emergency (ER) | payer OTHER ==
--- OUTSIDE RECORDS SUMMARY | 2020-10-10 17:43 | XMS REPORT | Continuity of Care Document ---
:[address] [facility] t Address [address] [place] [address] Care Team Providers Name Role Phone Yari HAMILTON Primary Care Physician Suresh Walters MD Attending Clinician Marck Chung Attending Clinician Nisa HAMILTON Attending Clinician Fede HAMILTON, J. Attending Clinician Anival [facility] Attending Clinician Unavailable Lyndsay HAMILTON Attending Clinician Nasreen HAMILTON Attending Clinician Ashok Tsai MD Attending Clinician MD Jennifer DOWNEY Attending Clinician Unavailable Jae Bull MD Attending Clinician Marichuy HAMILTON Attending Clinician Toni Maldonado MD Attending Clinician Barber Attending Clinician Unavailable Janice Guevara MD Attending Clinician Edwin HAMILTON Attending Clinician Varsha HAMILTON, [facility] Attending Clinician Ricky HOBSON Attending Clinician Unavailable MD EDWIN Attending Clinician Unavailable NASREEN Admitting Clinician Unavailable MD Jennifer DOWNEY Admitting Clinician Unavailable ONWU Admitting Clinician Unavailable EDWIN Admitting Clinician Unavailable MD EDWIN Admitting Clinician Unavailable Payers Payer Name Policy Type Policy Effective Date Expiration Date Sour ce Number BLUE CROSS BLUE [id number] 2018 [place] Andrea [place] 00:00:00 PPO [id number] PO CIGNACIGNA OPEN [id number] 2020 [place] ACCESS/NETWORKxx 00:00:00 Methodis t [id number] Problems Condition Condition Condition Status Onset Resolution Last Treating Co mments Source Name Details Category Date Date Treatment Clinician Date Weakness Weakness Disease Active [place] of right of right 2-14 Method i arm arm 00:00: st 00 COVID-19 COVID-19 Disease Active [place] virus virus 2-14 [facility] detected detected 00:00: st 00 Lower Lower Disease Active 2019-04 [place] extremity extremity 0-28 Meth tanvi weakness weakness 00:00: st 00 Debility Debility Disease Active 2019-04 [place] 0-26 Methodi 00:00: st 00 Weakness Weakness Disease Active 2019-04 [place] 0-24 Methodi 00:00: st 00 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 [place] al al 0-24 [facility] dysfunctio dysfunctio 00:00: st n n 00 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 0-15 Method i 00:00: st 00 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, leukemia, 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) Active Problem 09/01/2020 [facility] History of Problem Active 2020-09-01 M emoria - * 01:48:18 l leukemia History Rupal nn (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) (context-d ependent category) Active Problem 09/01/2020 [facility] Headache Problem Active 2020-09-01 Mem oria (finding) 01:48:18 l Headache Murray n (finding) Active Problem 09/01/2020 [facility] Simple Problem Active 2020-09-01 Memor ia obesity 01:48:18 l (disorder) Simple Herm zay obesity (disorder) Active Problem 09/01/2020 [facility] Backache Problem Active 2020-09-01 Mem oria (finding) 01:48:18 l Backache Murray n (finding) Active Problem 09/01/2020 [facility] Cervical Problem Active 2020-09-01 Mem oria radiculopa 01:48:18 l thy Cervical Murray n (disorder) radiculopa thy (disorder) Active Problem 09/01/2020 [facility] Disorienta Problem Active 2020-09-01 M emoria leon 01:48:18 l (finding) Ricardo Disorienta leon (finding) Active Problem 09/01/2020 [facility] Hemiplegia Problem Active 2020-09-01 M emoria (disorder) 01:48:18 l [place] Hemiplegia (disorder) Active Problem 09/01/2020 [facility] Seizure Problem Active 2020-09-01 Unruly kieran disorder 01:48:18 l (disorder) Seizure Her sesay disorder (disorder) Active Problem 09/01/2020 [facility] Visual Problem Active 2020-09-01 Memor ia disturbanc 01:48:18 l e Visual Ricardo (disorder) disturbanc e (disorder) Active Problem 09/01/2020 [facility] Disease Problem Active 2020-09-01 Unruly kieran caused by 01:48:18 l 2019-nCoV Disease Herm zay caused by 2019-nCoV Active Problem 09/01/2020 [facility] Allergies, Adverse Reactions, Alerts Allergy Allergy Status Severity Reaction(s) Onset Inactive Treating Comm ents Source Name Type Date Date Clinician Cephalex Propensi Active Hiv2019-04 [place] in ty to 0-16 Methodi adverse 00:00: st reaction 00 s to drug Latex Propensi Active Hives 2019-04 [place] ty to 0-16 Methodi adverse 00:00: st reaction 00 s to drug Ondanset Propensi Active Headache 2019-04 [place] mikey Hcl ty to Methodi adverse 00:00: st reaction 00 s to drug Gadobutr Propensi Active Other (See 2019-04 Vomiting1 [place] ol ty to Comments) Method i adverse 00:00: 8:30pm- st reaction [...] cephalex Active Memori a in in l [place] Latex Latex Active Memoria [facility] [place] Gadavist Gadavist Active Memori a l Ricardo Cephalex Adverse Active Info Not [facility] Reaction Available kes [facility] Zofran Adverse Active Info Not [facility] Reaction [facility] Family History Family Member Diagnosis Comments Start Date Stop Date Source Paternal grandfather Kidney cancer [facility] Social History Social Habit Start Date Stop Date Quantity Comments Source Tobacco use and 2020-06-10 2020-06-10 Never used Turner gilodist exposure 00:00:00 00:00:00 Alcohol intake 2020-06-10 2020-06-10 Current drinker Kaylen garcia Religious 00:00:00 00:00:00 of alcohol (finding) Alcohol Comment 2020-02-03 2020-02-03 occ drinker [place] Religious 00:00:00 00:00:00 Social History 2018-10-01 2018-10-01 [facility] 13:53:53 13:53:53 Sex [birth year] At [birth year] Turner gilodi 00:00:00 00:00:00 Smoking Status Start Date Stop Date Source Never smoker [place] t Medications Ordered Filled Start Stop Current Ordering Indication Dosage Frequency Signature Comments Components Source Medication Medication Date Date Medication? Clinician (SIG) Name Name 24 HR Yes 200 mg = 1 Memori a topiramate 5-11 cap, PO, l 200 MG 21:45: Daily, # [place] Extended 00 90 cap, 2 Release Refill(s), Capsule Pharmacy: [[facility]] [facility], 167.64, cm, 04/19/20 14:37:00 BLOCK HAND, Height, 87.273, kg, 08/29/20 16:36:00 CDT, Weight apixaban 5 2020-0 Yes 5 mg, PO, Me moria MG Oral 5-11 Q12H, # 60 l Tablet 21:43: tab, 0 [place] [Eliquis] 00 Refill(s), Pharmacy: [facility], 167.64, cm, 04/19/20 14:37:00 BLOCK HAND, Height, 87.273, kg, 08/29/20 16:36:00 CDT, Weight levothyroxi 2020-0 Yes 50 Memori a ne 50 mcg 5-11 microgram l (0.05 mg) 21:41: = 1 tab, Herm zay oral tablet 00 PO, Daily, # 30 tab, 0 Refill(s) acetaminoph 2020-0 Yes 500mg Q6H Take 500 [place] (Tylenol 2-20 mg by Methodi Extra 12:53: mouth st Strength) 53 every 6 500 MG (six) tablet hours as needed for mild pain. topiramate 2020-0 Yes 100mg QD Take 100 [place] (Trokendi 2-20 mg by Methodi XR) 100 mg 12:53: mouth st capsule,ext 53 nightly. ended release 24hr lisdexamfet 2020-0 Yes 50mg QD Take 50 mg [place] amine 2-20 by mouth Methodi (Vyvanse) 12:53: every st 50 MG 53 morning. capsule famotidine 0 Yes 20mg QD Take 20 mg [place] (PEPCID) 20 2-20 by mouth Meth tanvi MG tablet 12:53: daily. st 53 montelukast 2020-0 Yes 10mg QD Take 10 mg [place] (SINGULAIR) 2-20 by mouth Meth tanvi 10 mg 12:53: daily. st tablet 53 24 HR 2019-04 Yes 100 mg = 1 Memori a topiramate 2-30 cap, PO, l 100 MG 21:09: Bedtime, # Rupal nn Extended 00 90 cap, 2 Release Refill(s), Capsule Pharmacy: [[facility]] [id number], 167.64, cm, 04/19/20 14:37:00 BLOCK HAND, Height, 104.545, kg, 04/19/20 14:37:00 BLOCK HAND, Weight Famotidine 2019-04 Yes 40 mg, PO, M emoria 2-30 Daily, # l 20:40: 60 tab, 0 00 Refill(s) Nulev 2019-04 Yes 0.125 mg, Memoria 2-30 PO, QID, 0 l 20:40: Refill(s) Ricardo 00 Reglan 2019-04 Yes 0 Memoria 1-10 Refill(s) l 18:04: Ricardo 00 metoclopram 2019-04- No 1{tbl} Take 1 [place] dung HCl 1-10 02-14 tablet by Method i (REGLAN 00:00: 00:[address] ORAL) 00 :00 needed. omeprazole 2019-04 No 20mg QD Take 1 [place] OTC 0-28 11-27 tablet (20 Methodi (PriLOSEC 00:00: 23:59 mg total) st OTC) 20 MG 00 :00 by mouth EC tablet daily for 30 days. metoclopram 2019-04- No 5mg [id number] Take 1 [place] dung 0-28 11-02 [id number] tablet (5 Met hodi (Reglan) 5 00:00: [...] it last week - unknown reason); (per [place] Prescripti on Drug Monitoring Program, last filled 12/18/19, quantity: 30, day supply: 30) topiramate 2019-04- No 1{capsu QD Take 1 [place] (Trokendi 0-20 10-20 le} capsule by Met hodi XR) 100 mg 18:40: 00:[address] capsule,ext 28 :00 daily. ended (Patient release stopped 24hr taking this medication in the summer because she ran out of it) OXCARBAZEPI 2019-04- No (Patient Andres gilliam NE ORAL 0-20 10-20 stopped Methodi 18:40: [...] - per patient) metoclopram 2019-04- No 5mg [id number] Take 1 [place] dung 0-20 - [id number] tablet (5 Met hodi (Reglan) 5 00:00: 00:00 3D mg total) s t MG tablet 00 :00 by mouth 3 (three) times a day as needed (nausea, vomiting) for up to 5 days. Vyvanse Vyvanse Yes Na Savage [address] 12-13 in the kes - 00:00: morning Memoria 00 l [facility] oxcarbazepi Yes 300 mg = 1 Memoria ne 300 MG 9-06 tab, PO, l Oral Tablet 16:04: BID, # 180 [place] [Trileptal] 19 tab, 3 Refill(s), [id number] Yes 100 mg = 1 Memori a topiramate 9-06 cap, PO, l 100 MG 16:04: Daily, # Ricardo Extended 10 90 cap, 3 Release Refill(s), Capsule Pharmacy: [[facility]] [facility] #[id number] No 100 mg = 1 Memori a topiramate 9-04 cap, PO, l 100 MG 18:31: Daily, X Ricardo Extended 05 30 day, # Release 30 cap, 3 Capsule Refill(s), [Trokendi] Pharmacy: [facility] oxcarbazepi No 300 mg = 1 Memoria ne 300 MG 9-04 tab, PO, l Oral Tablet 18:31: BID, X 30 [place] [Trileptal] 02 day, # 60 tab, 3 Refill(s), Pharmacy: [facility] lisdexamfet Yes 30 mg = 1 M emoria amine 8-09 cap, PO, l dimesylate 16:20: QAM, # 30 He rmann 30 MG Oral 00 cap, 0 Capsule Refill(s) [Vyvanse] omeprazole Yes 20 mg = 1 Me moria 20 mg oral 7-17 cap, PO, l delayed 00:27: Daily, # Murray n release 00 30 cap, 2 capsule Refill(s), Pharmacy: [facility] oxcarbazepi Yes 300 mg = 1 Memoria ne 300 MG 7-03 tab, PO, l Oral Tablet 18:01: BID, # 60 [place] [Trileptal] 00 tab, 2 Refill(s), Pharmacy: [facility] 24 HR Yes 100 mg = 1 Memori a topiramate 6-28 cap, PO, l 100 MG 14:50: Daily, # Ricardo Extended 00 30 cap, 3 Release Refill(s), Capsule Pharmacy: [[facility]] [facility] topiramate Yes 25 mg = 1 Me moria 25 MG Oral 6-14 tab, PO, l Tablet 23:33: BID, # 60 Murray n [Topamax] 00 tab, 2 Refill(s), Pharmacy: [facility] Phenytoin Yes 200 mg = 2 Me moria sodium 100 6-13 cap, PO, l MG Extended 13:57: BID, # 120 [place] Release 00 cap, 3 Capsule Refill(s), [Dilantin] Pharmacy: [facility] Alprazolam Yes 0.5 mg = 1 M emoria 0.5 MG Oral 6-13 tab, PO, l Tablet 13:28: TID, 0 [place] [Xanax] 00 Refill(s) Zyrtec 0 Yes Daily, [...] Date Status Commen ts Source Name Name Fozia 2020-06-10 Completed [place] 00:00:00 Religious FLUCELVAX QUAD PF 2020-02-06 Completed [place] 00:00:00 Religious Influenza Split Completed MD Charles on 00:00:00 Vital Signs Vital Name Observation Time Observation Value Comments Source Weight 2020-08-29 21:36:00 [facility] Systolic blood 2020-06-10 14:17:19 128 mm[Hg] Yurito n Religious pressure Diastolic blood 2020-06-10 14:17:19 68 mm[Hg] Yurit on Religious pressure Heart rate 2020-06-10 14:17:19 88 /min [place] Religious Body temperature 2020-06-10 14:17:19 36.11 Staci [place] Religious Respiratory rate 2020-06-10 14:17:19 16 /min [place] Religious Oxygen saturation in 2020-06-10 14:17:19 98 /min [place] Religious Arterial blood by Pulse oximetry Body height 2020-06-10 12:48:00 167.6 cm [place] Religious Body weight 2020-06-10 12:48:00 94.802 kg [place] Religious BMI 2020-06-10 12:48:00 33.73 kg/m2 [place] Religious Systolic (mm Hg) 2020-04-19 20:08:00 Unruly rial Ricardo Diastolic (mm Hg) 2020-04-19 20:08:00 Mem orial [place] Heart Rate 2020-04-19 20:08:00 [facility] Ricardo Respitory Rate 2020-04-19 20:08:00 Memori al Ricardo Height 2020-04-19 20:08:00 167.64 cm [facility] 2020-04-19 20:08:00 [facility] BMI Calculated 2020-04-19 20:08:00 Memori al Ricardo Systolic (mm Hg) 2020-03-29 20:19:00 Unruly rial Ricardo Diastolic (mm Hg) 2020-03-29 20:19:00 Mem orial [place] Heart Rate 2020-03-29 20:19:00 [facility] Ricardo Respitory Rate 2020-03-29 20:19:00 Memori al [place] Height 2020-03-29 20:19:00 167.64 cm [facility] Ricardo Weight 2020-03-29 20:19:00 [facility] Ricardo BMI Calculated 2020-03-29 20:19:00 Memori al [place] Systolic (mm Hg) 2020-02-29 17:31:00 Unruly rial [place] Diastolic (mm Hg) 2020-02-29 17:31:00 Mem orial [place] Heart Rate 2020-02-29 17:31:00 [facility] Ricardo Respitory Rate 2020-02-29 17:31:00 Memori al Ricardo Height 2020-02-29 17:31:00 167.64 cm [facility] [place] Weight 2020-02-29 17:31:00 [facility] Ricardo BMI Calculated 2020-02-29 17:31:00 Memori al [place] Systolic (mm Hg) 2018-12-23 18:03:00 Unruly rial Ricardo Diastolic (mm Hg) 2018-12-23 18:03:00 Mem orial [place] Heart Rate 2018-12-23 18:03:00 [facility] [place] Respitory Rate 2018-12-23 18:03:00 Memori al Ricardo Height 2018-12-23 18:03:00 167.64 cm [facility] [place] Weight 2018-12-23 18:03:00 [facility] Ricardo BMI Calculated 2018-12-23 18:03:00 Memori al Ricardo Heart Rate 2018-11-27 15:59:00 [facility] [place] Respitory Rate 2018-11-27 15:59:00 Memori al Ricardo Systolic (mm Hg) 2018-11-27 15:59:00 Unruly rial [place] Diastolic (mm Hg) 2018-11-27 15:59:00 Mem orial Ricardo BMI Calculated 2018-11-27 15:59:00 Memori al Ricardo Weight 2018-11-27 15:59:00 [facility] Ricardo Height 2018-11-27 15:59:00 167.64 cm Memorial Ricardo BMI Calculated 2018-10-16 14:19:00 Memori al [place] Weight 2018-10-16 14:19:00 [facility] [place] Height 2018-10-16 14:19:00 167.64 cm [facility] Ricardo Heart Rate 2018-10-16 14:19:00 [facility] Ricardo Respitory Rate 2018-10-16 14:19:00 Memaviva al [place] Systolic (mm Hg) 2018-10-16 14:19:00 Unruly taj Ricardo Diastolic (mm Hg) 2018-10-16 14:19:00 Mem orial [place] BMI Calculated 2018-10-01 13:18:00 Avery hdz [place] Weight 2018-10-01 13:18:00 [facility] Ricardo Height 2018-10-01 13:18:00 167.64 cm [facility] [place] Respitory Rate 2018-10-01 13:18:00 Avery al Ricardo Heart Rate 2018-10-01 13:18:00 [facility] [place] Systolic (mm Hg) 2018-10-01 13:18:00 Unrulyroseline vang Ricardo Diastolic (mm Hg) 2018-10-01 13:18:00 Mem orial Ricardo Procedures Procedure Date / Time Performing Clinician Source Performed MRI THORACIC SPINE W 2020-06-06 16:01:00 Caleb Kent Religious CONTRAST MRI CERVICAL SPINE W 2020-06-06 16:01:00 Caleb Kent Religious CONTRAST MRI BRAIN W WO CONTRAST 2020-06-06 16:00:00 Caleb Kent ton Religious C-REACTIVE PROTEIN 2020-06-06 12:12:00 Jen Tsai Religious Natvarlal INTERLEUKIN 6 2020-06-06 12:12:00 Jen Tsai Met hodist Natvarlal FERRITIN LEVEL 2020-06-06 12:12:00 Jen Tsai Met hodist Natvarlal D-DIMER 2020-06-06 12:12:00 Jen Tsai Met [facility]odist Natvarlal LDH 2020-06-06 12:12:00 Jen Tsai [facility]ist Natvarlal FIBRINOGEN 2020-06-06 12:12:00 Jen Tsai Met hodist Natvarlal CT CHEST WO CONTRAST 2020-06-06 12:03:12 Eloise Dorsey on Religious URINE CULTURE 2020-06-04 07:58:00 Kanchan Downey Meth odist URINALYSIS SCREEN AND 2020-06-04 07:58:00 Eloise Dorsey MICROSCOPY, WITH REFLEX TO CULTURE HCG QUALITATIVE, URINE 2020-06-04 07:58:00 Eloise Dorsey SCREEN COVID-19 QUALITATIVE PCR 2020-06-04 07:45:00 Eloise Dorsey HC COMPLETE BLD COUNT 2020-06-04 02:45:00 Jose Gomez W/AUTO DIFF Imarendenejose e COMPREHENSIVE METABOLIC 2020-06-04 01:56:00 Jose Gomez PANEL Imarendenewe ESTIMATED GFR 2020-06-04 01:56:00 Jose Gomez M ethodist Imarendenejose e OCT, OPTIC NERVE - OU - 2020-03-08 13:34:42 Chavo Bull BOTH EYES AUTOMATED VISUAL FIELD, 2020-03-08 13:34:38 Chavo Bull EXTENDED - OU - BOTH EYES DURABLE MEDICAL EQUIPMENT 2020-02-16 10:31:42 Blessing Maldonado Religious Toni BASIC METABOLIC PANEL 2020-02-16 05:10:00 Sharlene Julian on Religious Mehran ESTIMATED GFR 2020-02-16 05:10:00 Erica Blessing [place] Me thodist Toni DURABLE MEDICAL EQUIPMENT 2020-02-15 15:56:49 Caleb Roque Religious EMG 2020-02-15 12:46:48 Fior Batista Me thodist Ahmed HC COMPLETE BLD COUNT 2020-02-15 05:00:00 Eber Castro W/AUTO DIFF BASIC METABOLIC PANEL 2020-02-15 05:00:00 Eber Castro ESTIMATED GFR 2020-02-15 05:00:00 Shira Benedict Meth odist VISUAL EVOKED POTENTIALS 2020-02-14 11:52:23 Dora Montalvo (VEP) HC COMPLETE BLD COUNT 2020-02-14 04:15:00 Eebr Castro W/AUTO DIFF BASIC METABOLIC PANEL 2020-02-14 [...] DIFF BASIC METABOLIC PANEL 2020-02-06 06:18:00 Michael Maddoxston Religious ESTIMATED GFR 2020-02-06 06:18:00 Michael Maddox XR [...] CRYPTOCOCCAL ANTIGEN 2020-02-04 09:56:00 Andressa Givens on Religious SCREEN GRAM STAIN 2020-02-04 09:56:00 Kim Guevara CSF CELL COUNT WITH 2020-02-04 09:56:00 Andressa Givens n Religious DIFFERENTIAL GLUCOSE LEVEL, CSF 2020-02-04 09:56:00 Andressa Givens IGG SYNTHESIS RATE STUDY 2020-02-04 09:56:00 Andressa Givens Religious VDRL, CSF 2020-02-04 09:56:00 Andressa Givens Me thodist LYME DISEASE REFLEXIVE 2020-02-04 09:56:00 Andressa Givensn Religious PANEL, CSF CYTOMEGALOVIRUS BY PCR 2020-02-04 09:56:00 [...] BLD COUNT 2020-02-04 01:40:00 Aldo Pineda on Religious W/AUTO DIFF BASIC METABOLIC PANEL 2020-02-04 01:40:00 Aldo Pineda on Religious ESTIMATED GFR 2020-02-04 01:40:00 Kim Guevara URINE CULTURE 2020-02-04 00:56:00 Kim Guevara URINALYSIS SCREEN AND 2020-02-04 00:56:00 Manan Hernández MICROSCOPY, WITH REFLEX TO CULTURE URINE DRUGS OF ABUSE 2020-02-04 00:56:00 Manan Hernández Religious SCREEN COVID-19 QUALITATIVE PCR 2020-02-03 23:41:00 Kim Guevara MRI BRAIN & ORBIT W WO 2020-02-03 22:12:00 Manan Hernández CONTRAST MRI CERVICAL SPINE W 2020-02-03 22:12:00 Manan Hernández CONTRAST MRI THORACIC SPINE W 2020-02-03 22:12:00 Manan Hernández Religious CONTRAST CYTOLOGY 2020-02-03 20:17:00 Michael Maddoxh Turner Religious (NON-GYNECOLOGICAL) REQUEST COMPREHENSIVE METABOLIC 2020-02-03 18:35:00 Manan Hernández PANEL ESTIMATED GFR 2020-02-03 18:35:00 Kim Guevara HC COMPLETE BLD COUNT 2020-02-03 18:25:00 Manan Hernández W/AUTO DIFF ELMER 2020-02-03 18:25:00 Manan Hernández FOLATE LEVEL 2020-02-03 18:25:00 Manan Hernández VITAMIN B12 LEVEL 2020-02-03 18:25:00 Manan Hernández C-REACTIVE PROTEIN 2020-02-03 18:25:00 Manan Hernández Religious HOMOCYSTINE, PLASMA 2020-02-03 18:25:00 Manan Hernández CORTISOL LEVEL, RANDOM 2020-02-03 18:25:00 Manan Hernández SEDIMENTATION RATE 2020-02-03 18:25:00 Manan Hernándezist RHEUMATOID FACTOR 2020-02-03 18:25:00 Manan Hernández THYROID STIMULATING 2020-02-03 18:25:00 Manan Hernández HORMONE T4, FREE 2020-02-03 18:25:00 Manan Hernández T3 2020-02-03 18:25:00 Manan Hernández SYPHILIS TREPONEMA SCREEN 2020-02-03 18:25:00 Manan Hernández WITH RPR CONFIRMATION (REVERSE ALGORITHM) HIV AG/AB COMBINATION 2020-02-03 18:25:00 Manan Hernández chanel Religious VITAMIN D 25 HYDROXY LEVEL 2020-02-03 18:25:00 Manan Hernández B. BURGDORFERI ABS TOTAL, 2020-02-03 18:25:00 Manan Hernández SERUM CT HEAD WO CONTRAST 2020-02-03 16:14:55 Manan Hernández HCG QUANTITATIVE, SERUM 2020-02-03 14:27:00 Manan Hernández Tubal ligation [facility] Plan of Care Planned Activity Planned Date Details Comments Source Future Scheduled 2023-02-02 Screening for Turner Me thodist Test 00:00:00 malignant neoplasm of cervix (procedure) [code = 905798657] Future Scheduled 2020-11-19 INFLUENZA VACCINE Yurito n Religious Test 00:00:00 [code = INFLUENZA VACCINE] Future Scheduled 2004 Hepatitis C Turner Perdomo hodist Test 00:00:00 screening (procedure) [code = 979059735] Future Scheduled 1998 COVID-19 VACCINE (1) Juan daniels Religious Test 00:00:00 [code = COVID-19 VACCINE (1)] Encounters Start End Encounter Admission Attending Care Care Encounter Source Date/Time Date/Time Type Type Clinicians Facility Department ID 2020-09-08 2020-09-08 Office ROMULO Walters [id number] 10:12:53 13:09:00 Visit Chika AMBULATOR [id number] Suresh Y [id number] 2020-09-08 2020-09-[address] [facility] [id number] 2020-09-07 2020-09-[address] [facility] [id number] 2020-09-01 2020-09-[address] [facility] [id number] [facility] 2020-08-29 2020[facility]08-29 [id number] 15:45:00 23:59:59 David Acharya 2020-08-28 2020-08-28 Outpatient [facility] [id number] [facility] 2020-08-15 2020-08-15 Outpatient [facility] [id number] [facility] 2020-08-08 2020-08-08 Outpatient [facility] [id number] [facility] 2020-08-08 2020-08-08 Out[facility] [id number] [facility] 2020-08-07 2020-08-07 Out[facility] [id number] [facility] 2020-07-26 2020-07-26 Outpatient [facility] [id number] [facility] 2020-07-20 2020-07-20 Out[facility] [id number] [facility] 2020-07-10 2020-07-10 Outpatient [facility] [id number] [facility] 2020-07-10 2020-07-10 Outpatient [facility] [id number] [facility] 2020-07-06 2020-07-06 Out[facility] [id number] [facility] 2020-07-04 2020-07-04 Out[facility] [id number] [facility] 2020-06-30 2020-06-30 Outpatient [facility] [id number] [facility] 2020-06-27 2020-06-27 Outpatient [facility] [id number] [facility] 2020-06-20 2020-06-20 Outpatient [facility] [id number] [facility] 2020-06-19 2020-06-19 Outpatient [facility] [id number] [facility] 2020-06-14 2020-06-15 Outpatient MHMISCHER MHMISCHER 002 [id number] 15:54:19 23:59:59 01 2020-06-12 2020-06-12 Outpatient [facility] [id number] [facility] 2020-06-12 2020-06-12 Outpatient [facility] [id number] [facility] 2020-06-10 2020-06-10 Outpatient [facility] [id number] 486 [place] 00:00:00 00:00:[address] 2020-06-09 2020-06-09 Outpatient [facility] [id number] [facility] 2020-06-09 2020-06-09 Outpatient [facility] [id number] [facility] 2020-06-04 2020-06-07 Inpatient [place] [id number] [place] 00:00:00 00:00:00 JEN [address] 2020-05-31 2020-05-31 Outpatient Juliet, MHMISCHER MHMISCHER [id number] 11:30:00 23:59:59 David 12 Marck 2020-05-31 2020-05-31 Outpatient Juliet, MHMISCHER MHMISCHER [id number] 15:30:00 15:30:00 David 11 Marck 2020-04-19 2020-04-19 Outpatient Juliet, MHMISCHER MHMISCHER [id number] 14:00:00 23:59:59 David 10 Marck 2020-04-18 2020-04-18 Outpatient STLMLC STLMLC [id number] [facility] 2020-04-11 2020-04-11 Outpatient Juliet, MHMISCHER MHMISCHER [id number] 10:00:00 23:59:59 David 09 Marck 2020-03-29 2020-03-29 Outpatient Juliet, MHMISCHER MHMISCHER [id number] 14:00:00 23:59:59 David 08 Marck 2020-03-22 2020-03-22 Outpatient STLMLC STLMLC [id number] [facility] 2020-03-16 2020-03-16 Outpatient STLMLC STLMLC [id number] [facility] 2020-03-08 2020-03-08 Outpatient CHAVO BULL [facility] [id number] [place] 00:00:00 00:00:[address] 2020-03-07 2020-03-07 Outpatient STLMLC STLMLC [id number] [facility] 2020-02-29 2020-02-29 Outpatient Juliet, MHMISCHER MHMISCHER [id number] 11:15:00 23:59:59 David 07 [facility] 2020-02-21 2020-02-21 Outpatient STLMLC STLMLC [id number] [facility] 2020-02-17 2020-02-17 Outpatient STLMLC STLMLC [id number] [facility] 2020-02-12 2020-02-16 Inpatient ERICA [facility] [id number] [place] 00:00:00 00:00:00 BLESSING [address] 2020-02-15 2020-02-15 [facility] [id number] 09:15:00 09:15:00 David Acharya 2020-02-09 2020-02-09 Outpatient STLMLC STLMLC [id number] [facility] 2020-02-03 2020-02-08 Inpatient VARSHA [facility] [id number] [place] 00:00:00 00:00:00 MICHAEL Santacruz [facility] 2020-01-17 2020-01-17 Outpatient STLMLC STLC [id number] [facility] 2019-12-14 2019-12-14 [facility] [id number] [facility] 10:48:00 10:48:00 t Diet TV s - Verdiem [facility] Medicine l Medicine Outpati ent Clinics 2019-11-23 2019-11-23 [facility] [id number] 09:00:00 09:00:00 t Diet TV s - Drive [facility] Medicine l Medicine Outpati ent Clinics 2019-11-23 2019-11-23 [facility] [id number] 08:05:00 08:05:00 t [employer] [facility] Medicine l Medicine Outpati ent Clinics 2019-10-15 2019-10-15 [facility] [id number] 08:44:00 08:44:00 t Diet TV s Rezzcard [facility] Medicine l Medicine Outpati ent Clinics 2019-09-07 2019-09-07 [facility] [id number] 11:56:00 11:56:00 t [employer] [facility] Medicine Outpati ent Clinics 2019-08-13 2019-08-13 [facility] [id number] 10:20:00 10:20:00 [place] [address] [place] - Drive [facility] Medicine Outpati ent Clinics 2019-08-12 2019-08-12 [facility] [id number] 09:49:00 09:49:00 [place] - Drive [facility] Medicine Outpati ent Clinics 2019-06-15 2019-06-15 [facility] [id number] 15:24:00 15:24:00 [place] E Ink [place] - Drive [facility] Medicine Outpati ent Clinics 2019-06-09 2019-06-09 [facility] [id number] 08:40:00 08:40:[address] [facility] [address] [facility] Medicine Outpati ent Clinics 2019-06-03 2019-06-03 [facility] [id number] [facility] 10:52:00 10:52:00 [place] [employer] s - Drive [facility] Medicine Outpati ent Clinics 2019-05-28 2019-05-28 [facility] [id number] [facility] 16:20:00 16:20:00 [place] [employer] s - Drive [facility] Medicine Outpati ent Clinics 2019-05-21 2019-05-22 Outpatient MISCHER MISCHER [id number] 14:44:00 23:59:59 00 2019-04-28 2019-04-28 [id number] 13:00:00 13:00:00 aDvid Acharya 2019-01-01 2019-01-01 [facility] [id number] 15:32:00 15:32:00 [place] [employer] [place] - Drive [facility] Medicine Outpati ent Clinics 2018-12-31 2018-12-31 [facility] [id number] 09:55:00 09:55:00 [place] E [place]k [employer] s - Drive [facility] Medicine Outpati ent Clinics 2018-12-30 2018-12-30 [facility] [id number] 13:25:00 13:25:00 [place] [address] [place] - Drive [facility] Outpati ent Clinics 2018-12-30 2018-12-30 [facility] [id number] 08:00:00 08:00:00 [place] [address] [place] - Drive [facility] Outpati ent Clinics 2018-12-29 2018-12-29 [facility] [id number] 09:42:00 09:42:00 [place] [address] [place] - Drive [facility] Outpati ent Clinics 2018-12-23 2018-12-23 [id number] 13:15:00 23:59:59 David 04 Marck 2018-12-04 2018-12-04 [facility] [id number] [facility] 16:20:00 16:20:00 [place] [address] [place] - Drive [facility] Outpati ent Clinics 2018-11-30 2018-11-30 [facility] [id number] 10:08:00 10:08:00 t [facility]gent [facility] 2018-11-27 2018-11-27 Outpatient ASIF Chung MALISSASCHBINU [id number] 10:45:00 23:59:59 David 03 Marck 2018-11-27 2018-11-27 [facility] [id number] 13:00:00 13:00:00 [place] [address] [place] - Drive [facility] Outpati ent Clinics 2018-10-29 2018-10-29 [facility] [id number] 10:40:00 10:40:00 [place] [address] [place] - Drive [facility] Outpati ent Clinics 2018-10-16 2018-10-16 Outpatient ASIF Chung [id number] 09:00:00 23:59:59 David 02 Marck 2018-10-02 2018-10-02 Outpatient ASIF Chung MALISSASCHBINU [id number] 15:00:00 23:59:59 David 01 Marck 2018-10-01 2018-10-01 [id number] 08:15:00 23:59:59 David 00 Mar[place] 2018-09-30 2018-09-30 [facility] [id number] 13:00:00 13:00:00 [place] [employer] [place] - Drive [facility] Medicine Outpati ent Clinics 2018-08-31 2018-08-31 [facility] [id number] 11:00:00 11:00:00 [place] [employer] s - Drive [facility] Medicine Medicine Outpati ent Clinics 2018-07-27 2018-07-27 [facility] [id number] 13:54:00 13:54:00 [place] [employer] s - Drive [facility] Medicine Medicine Outpati ent Clinics 2018-07-23 2018-07-23 [facility] [id number] 08:53:00 08:53:00 [place] [employer] s - Drive [facility] Medicine Medicine Outpati ent Clinics 2018-07-23 2018-07-23 [facility] [id number] 08:15:00 08:15:00 [place] [employer] - Drive [facility] Medicine Outpati ent Clinics 2018-06-22 2018-06-22 [facility] [id number] [facility] 10:30:00 10:30:00 [place] E Ink [employer] - Drive [facility] Medicine Outpati ent Clinics 2018-05-04 2018-05-04 [facility] [id number] 12:00:00 12:00:00 [place] [employer] s - Drive [facility] Medicine Outpati ent Clinics 2018-04-02 2018-04-02 [facility] [id number] 09:00:00 09:00:00 [place] [employer] s - Drive [facility] Medicine Outpati ent Clinics Results Test Description Test Time Test Comments Results Result Sourc e Comments MRI Thoracic 2020-05-22 [facility] [place] Spine W Contrast 6 Radiology Results M ethodist 17:13:41 2021 5:16 PM CST EXAMINATION: MRI THORACIC SPINE [...] or neural foraminal stenosis.[id number] MRI Cervical 2020-05-22 [facility] Spine W Contrast 6 Radiology Results M [...] identified.[id number] MRI Brain W Wo 2020-05-22 [facility] Contrast 6 Rad[facility] 16:41:58 Incoming - 06/06/2020 4:45 PM CST [...] intracranial abnormality.1M2RAD_PS 02 CT Chest Wo 2020-05-22 [facility] Contrast [address] 12:08:03 [...] findings, this is compatible with mild Covid pneumonia.[facility]-[id number] 0LD SARS-CoV-2 (COVID-19) RNA [Presence] in Respiratory sp ecimen by 2020-06-04 18:31:32 SARI with probe detection Test Item Value Reference Range Interpretation Comme nts SARS-CoV-2 (COVID-19) RNA [Presence] in Respiratory Detected No t-Detected specimen by SARI with probe detection (test code = 33574-2) Urine [id number] 12:51:05 Test Item Value Reference Range Interpretation Comments Urine culture (test SEE COMMENT Bacteriu kieran screen code = 1884162) negative. Turner WorleyOCT, Optic Nerve - [id number] 13:34:42Chavo Bull MD - 05/24/2020 5:54 PM CSTFormatting of this note might be different from the origi nal.Turner MethodistAutomated Visual Field, Extended - [id number] 13:34:39 Chavo Bull MD - 05/24/2020 5:54 PM CST Turner Worley3 in 1 [id number] 11:07:52 Test Item Value Reference Range Interpretation Comments SUPPLIER NAME (test XMED Oxygen and code = 6415) Medical SUPPLIER PHONE (test [phone] code = 6416) ORDER STATUS (test code Delivery Successful = 6417) DELIVERY NOTE (test code = 6419) REQUESTED DELIVEY DATE 02/16/2020 (test code = 6420) ITEM DESCRIPTION (test 3 in 1 Commode Qty : 1 code = 6423) ACTUAL DELIVERY DATE 02/16/2020 (test code = 6422) Turner WorleyEMG General [id number] 13:23:11Electromyogram and NCS ReportFORMERLY [facility] Neurological Nyznqxikq6785Ncxf,WP11,[facility]IE41422K: F : Patient: Snow Argueta Physician: Nicolasa [...] Site: Wrist Pk Lat (ms) Amp (uV)Stim Rqtb9hf dig 2.5 21.0 Sensory Nerve Study Right [...] independent left and right full field monocularstimulation. ZkyS312 absolute latencies were 99.8 msec and 102.6 msec following independent left andright eye stimulation. All interpeak latencies and waveform morphologies were normal. ImpressionThisis a normal study. ICD10 Code/Diagnosis: S90Lskpnet MethodistMRI Lumbar Spine W Wo [id number] 11:16:59Hm Interface, Radiology Results 02/13/2020 11:20 AM [...] on the right. Recommend correlation to radiculopathy distribution.[facility]-[id number] Brain [id number] 09:57:03Hm Interface, Radiology Results 02/13/2020 10:00 AM CDT EXAM: MRI BRAIN VENOGRAMCLINICAL HISTORY: Headache chronic normal neuro examTECHNIQUE: Head MR venogram using 2D cspf-zr-mgpwmn technique with multi-planar MIP and 3D recon struction.COMPARISON: MRI brain, 02/03/2020FINDINGS:The superior sagittal sinus, transverse and sigmoid sinuses as well as the straight sinus are all patent with no evidence of dural venous sinus thrombosis. The visualized internal cerebral veins, basal veins of [place] and the vein of [place] are all patent. 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 Location: Left basilic Device Type:Non-valved Catheter Lumen(s): Single lumen Catheter size: 3 Fr Catheter to vein ratio: 24%MidLine Characteristics: Catheter Brand: SL PROVENA MIDLINE Internal Catheter Length (cm): 12 Total Catheter Length (cm): 12 Catheter Lot Number: [id number] Catheter Expiration Date: 2Procedure details: Landmarks identified: [...] Patient tolerance of procedure: Tolerated well, no immediatecomplicationsKenmore MethodistUs duplex venous upper [id number] 22:03:00Interface, Radiology Results In - 02/07/2020 10:03 PM CDT Vascular Ultrasound Laboratory Upper Extremity Venous Report [address] [place] [address] Pat.Name: SNOW ARGUETA Namrata.ID: [id number] .Date: 02/07/2020 Refer.MD: MICHAEL MADDOX MD Exam Time: 4:33:00PM Study Type:UE Venous Height: 66in Weight: 220lb BSA: 2.08 m2 Age: 7 1985,34Y Sex:FEMALE Sonogrphr: Ryan Torres RVT Pat. Stat.:Inpatient Room: [address] Tape Vol: HV, CPT - 4: 75521 Echo Event ID:[id number] Order ID: [id number] Reason for Study:Right arm pain and swelling. [...] upper arm basilicvein. FINDINGS: Signed 02/07/2020 10:03 PMChaz Obrien MD, RPVIKenmore Religious Flow cytometry [id number] 09:52:18 Test Item Value Reference Range Interpretation Comments Case number (test code = [id number]) Flow cytometry evaluation See link below for (test code = [id number]) PDF Lab Report Turner WorleyROSA NEED PHYS SKILL,DX OR [id number] 09:18:07Javier Kolb RN 02/07/2020 9:21 AMMidline Date/Time: [...] to vein ratio: 41%MidLine Characteristics: Catheter Brand: Netlist External Catheter Length (cm): 0 Internal Catheter Length (cm): 12 Total Catheter Length (cm): 12 Catheter Lot Number: [id number] Catheter Expiration Date: 1Procedure details: Landmarks identified: [...] tolerance of procedure: Tolerated well, no [facility] 12 [id number] 12:49:19 Test Item Value Reference Range Interpretation Comments Ventricular rate (test 78 code = 253) Atrial rate (test code 78 = 255) NV interval (test code 144 = 266) QRSD [...] 04-FEB-2020 04:50,-No significant change was found- Turner MethodistXR Chest 1 Vw [id number] 22:09:52Hm Interface, Radiology Results Incoming - 02/05/2020 10:12 PM CDT EXAMINATION: XR CHEST 1 VW PORTABLECLINICAL HISTORY: 34 years Female chest pressure on exertionCOMPARISON: None.IMPRESSION:No acute cardiopulmonary disease.FINDINGS:The card iomediastinal silhouette, lungs, and regional skeletal structures are within normal limits for age.[facility]-OT44XYMTIsxxnqa MethodistCytology (non-gynecological) [id number] 18:15:16 Test Item Value Reference Range Interpretation Comments Case number (test code = [id number]) Cytology See link below for (non-gynecological) PDF Lab Report report (test code = 1178) Result status (test code This is Final Report = [id number]) for [id number] [place] MethodistEEG (routine)2020-02-04 10:51:25EEG AWAKE AND ASLEEP [...] or epileptiform activity was recorded. ICD-10 Code: A756Xhhhbgd MethodistIR Lumbar Puncture by Radiology 2020-02-04 10:23:15Hm [...] pressure was 21 cm of water.[facility]-[id number] JpcrxjvopHYTR-GsR-1 (COVID-19) RNA [Presence] in Respiratory specimen by SARI with probe [id number] 05:23:12 Test Item Value Reference Range Interpretation Comments SARS-CoV-2 (COVID-19) RNA Not detected Not-Detected [Presence] in Respiratory specimen by SARI with probe detection (test code = 13061-1) MRI Brain & Orbit W Wo [id number] 22:36:27Hm Interface, Radiology Results 02/03/2020 10:39 PM CDTFormatting of this note might be di fferent from the original.EXAMINATION: MRI BRAIN & ORBIT W WO CONTRASTCLINICAL [...] MRI of the brain and orbits.[facility]-[id number] [facility] Head Wo [id number] 16:17:18Hm Interface, Radiology Results 02/03/2020 4:20 PM CDTFormatting of this note might be di fferent from the original.EXAM: CT HEAD WO CONTRASTCLINICAL HISTORY: headache loss [...] intact.IMPRESSION:No CT evidence for acute intracranial abnormality.[id number]_PS01[place] [facility]
[2020-10-10 18:19] LABS: Absolute Lymphocytes (CBC) 0.7 K/uL (0.7-4.9); Basophils % 0.1 % (0-1.3); Hematocrit 35.8 % (36.0-45.0); Lymphocytes % 6.9 % (15.3-44.8); MPV 10.5 fL (7.6-11.3)
[2020-10-10 18:27] LABS: ALT/SGPT 26 U/L (12-78); AST/SGOT 10 U/L (15-37); Alkaline Phosphatase 72 U/L (45-117); BUN Blood Urea Nitrogen 10 mg/dL (7-18); Bicarbonate 24 mmol/L (21-32); Bilirubin Direct 0.1 mg/dL (0-0.2); Bilirubin Total 0.6 mg/dL (0.2-1.0); Glucose Level 104 mg/dL (74-106); Potassium 3.7 mmol/L (3.5-5.1); Sodium Level 140 mmol/L (136-145)
[2020-10-10] MEDS ORDERED: NA CHLORIDE 0.9% 1,000 ML ONE (18:35)
[2020-10-10 18:58] LABS: Blood Morphology Comment NOT SEEN (NOT SEEN); Platelet Estimate ADEQ; White Blood Cell Scan OK (OK)
[2020-10-10] MEDS ORDERED: DIPHENHYDRAMINE 50 MG/ML VIAL ONE (19:36)
[2020-10-10] MEDS ORDERED: METOCLOPRAMIDE 10 MG/2mL INJ ONE (19:36)
--- NOTE | 2020-10-10 20:38 | ER ---
Nurse's Notes [facility] Name: Snow rAgueta Age: 34 yrs Sex: Female : 1985 Arrival Date: 10/10/2020 Time: 17:40 Bed 17 Private MD: Diagnosis: Adverse effect of iron and its compounds Presentation: 10/10 17:40 Chief complaint: EMS states: was receiving an iron infusion at the cancer center about iw an hour ago, started to feel dizzy, SOB, staff gave 50 Benadryl, 10 Decadron, EMS gave A\\T\\A breathing treatment and fluids, pt symptoms improving but not fully resolved. Coronavirus screen: At this time, the client does not indicate any symptoms associated with coronavirus-19. Ebola Screen: Patient negative for fever greater than or equal to 101.5 degrees Fahrenheit, and additional compatible Ebola Virus Disease symptoms Patient denies exposure to infectious person. Patient denies travel to an Ebola-affected area in the 21 days before illness onset. No symptoms or risks identified at this time. Initial Sepsis Screen: Does the patient meet any 2 criteria? No. Patient's initial sepsis screen is negative. Does the patient have a suspected source of infection? No. Patient's initial sepsis screen is negative. Risk Assessment: Do you want to hurt yourself or someone else? Patient reports no desire to harm self or others. Onset of symptoms was October 10, 2020. 17:40 Method Of Arrival: EMS: [facility] iw 17:40 Acuity: LEONEL 3 iw 17:41 Chief complaint:. kg 17:41 Acuity: LEONEL 3 kg Triage Assessment: 17:43 General: Appears in no apparent distress. Behavior is calm, cooperative, appropriate kg for age, quiet. 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 kg Historical: - Allergies: 17:44 Cephalexin; iw 17:44 Gadavist; iw 17:44 Latex, Natural Rubber; iw 17:44 Zofran; iw - Home Meds: 17:53 Lovenox 90 mg Sub-Q every 12 hours [Active]; Trokendi XR 100 mg oral cp24 1 cap once iw daily [Active]; omeprazole 40 mg Oral cpDR 1 cap once daily [Active]; Vyvanse 40 mg oral cap 1 cap once daily [Active]; famotidine 40 mg Oral tab 1 tab once daily [Active]; Singulair 10 mg Oral tab 1 tab once daily [Active]; fluticasone 50 mcg/actuation nasal spsn 1 spray 2 times per day [Active]; azelastine 0.05 % ophthalmic drop 1 drop 2 times per day [Active]; albuterol sulfate 90 mcg/actuation Inhl HFAA as needed [Active]; Integra 125-40-3 mg oral cap 1 cap once daily [Active]; 18:37 Linzess 145 mcg oral cap 1 cap once daily [Active]; kg - PMHx: 17:44 ADD/ADHD; Blood Clot on R arm; Endometrosis; epilepsy; GERD; Leukemia; Pancreatitis; iw Hypothyroidism; - Immunization history:: Adult Immunizations up to date. - Social history:: Smoking status: unknown. Screenin:41 Abuse screen: Denies threats or abuse. Denies injuries from another. Nutritional kg screening: No deficits noted. Tuberculosis screening: No symptoms or risk factors identified. Fall Risk None identified. No fall in past 12 months (0 pts). No secondary diagnosis (0 pts). IV access (20 points). Ambulatory Aid- None/Bed Rest/Nurse Assist (0 pts). Gait- Normal/Bed Rest/Wheelchair (0 pts) Mental Status- Oriented to own ability (0 pts). Total Arteaga Fall Scale indicates No Risk (0-24 pts). Assessment: 18:19 General: Appears in no apparent distress. Behavior is calm, cooperative, appropriate kg for age, quiet. Pain: Complains of pain in face and scalp Pain currently is 10 out of 10 on a pain scale. at worst was 10 out of 10 on a pain scale. level that patient reports is acceptable is 6 out of 10 on a pain scale. Quality of pain is described as aching, sharp, stabbing, throbbing, Pain began suddenly. Neuro: Level of Consciousness is awake, alert, obeys commands, Oriented to person, place, time, situation, Appropriate for age Reports "I feel like my tongue is swelling and tingling. and the left side of my face on my cheek and back of my head.". Cardiovascular: No deficits noted. Respiratory: No deficits noted. GI: No deficits noted. : No deficits noted. EENT: No deficits noted. Derm: No deficits noted. Vital Signs: 17:49 BP 140 / 91; Resp 20; Temp 97.5(TE); Pulse Ox 99% on 2 lpm NC; kg 20:01 BP 124 / 76; Pulse 89; Resp 18; Pulse Ox 99% on R/A; ap3 ED Course: 17:25 Inserted saline lock: 20 gauge in right antecubital area, using aseptic technique. kg 17:40 Patient arrived in ED. iw 17:40 Rosey Atr, RN is Primary Nurse. kg 17:40 Maintain EMS IV. Dressing intact. Good blood return noted. Site clean \\T\\ dry. Gauge \\T\\ kg site: 20 G right AC. 17:42 Triage completed. kg 17:42 Arm band placed on right wrist. kg 17:43 Tigre Carpenter PA is PHCP. jr8 17:43 Zach Shahid MD is Attending Physician. jr8 17:48 Basic Metabolic Panel Sent. kg 17:48 CBC with Diff Sent. kg 17:48 Hepatic Function Sent. kg 18:22 IV discontinued, intact, bleeding controlled, No redness/swelling at site. Pressure kg dressing applied, D/C'd I've the L AC from EMS. Pt complained of pain. 19:12 Primary Nurse role handed off by Rosey Art RN ap3 19:12 Maddy Diaz, EBONIE is Primary Nurse. ap3 20:18 Patient has correct armband on for positive identification. Bed in low position. Call ap3 light in reach. Side rails up X 1. Pulse ox on. NIBP on. Door closed. Noise minimized. 20:23 Nurse Practitioner and/or Physician Manager Rfid to see patient. ap3 20:40 No provider procedures requiring assistance completed. ap3 20:47 IV discontinued, intact, bleeding controlled, No redness/swelling at site. Pressure ap3 dressing applied. Administered Medications: 18:05 Drug: NS 0.9% 1000 ml Route: IV; Rate: 125 ml/hr; Site: right antecubital; kg 19:20 Follow up: Response: No adverse reaction kg 20:48 Follow up: IV Status: Completed infusion ap3 19:20 Drug: Reglan (metoCLOPramide) 10 mg Route: IVP; Site: right antecubital; kg 20:48 Follow up: Response: No adverse reaction ap3 19:20 Drug: Benadryl (diphenhydrAMINE) 25 mg Route: IVP; Site: right antecubital; kg 20:48 Follow up: Response: No adverse reaction ap3 Outcome: 20:38 Discharge ordered by MD. bates 20:47 Discharged to home ambulatory. ap3 20:47 Condition: good 20:47 Discharge instructions given to patient, Instructed on discharge instructions, follow up and referral plans. Demonstrated understanding of instructions, follow-up care. 20:47 Patient left the ED. ap3 Signatures: Clara Black RN RN Tigre Mayorga PA PA jr8 Prokisch, Amanda, RN RN ap3 Rosey Art RN RN kg
--- NOTE | 2020-10-10 20:38 | EDPHYS ---
Physician Documentation [facility] Name: Snow Argueta Age: 34 yrs Sex: Female : 1985 Arrival Date: 10/10/2020 Time: 17:40 Bed 17 Private MD: ED Physician Zach Shahid HPI: 10/10 19:59 This 34 yrs old Female presents to ER via EMS with complaints of Infusion jr8 Reaction. 19:59 The patient presents with chest pain, dizziness. Onset: The symptoms/episode jr8 began/occurred acutely, today. Severity of symptoms: At their worst the symptoms were moderate in the emergency department the symptoms have improved mildly. The patient has not experienced similar symptoms in the past. The patient has been recently seen by a physician:. Patient started on iron infusion today at [facility] for anemia. Patient stated that after she started the infusion she started to get dizziness, headache, chest tightness, and shortness of breath. Patient given benadryl and decadron at facility with mild improvement . 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 kg Historical: - Allergies: 17:44 Cephalexin; iw 17:44 Gadavist; iw 17:44 Latex, Natural Rubber; iw 17:44 Zofran; iw - Home Meds: 17:53 Lovenox 90 mg Sub-Q every 12 hours [Active]; Trokendi XR 100 mg oral cp24 1 cap once iw daily [Active]; omeprazole 40 mg Oral cpDR 1 cap once daily [Active]; Vyvanse 40 mg oral cap 1 cap once daily [Active]; famotidine 40 mg Oral tab 1 tab once daily [Active]; Singulair 10 mg Oral tab 1 tab once daily [Active]; fluticasone 50 mcg/actuation nasal spsn 1 spray 2 times per day [Active]; azelastine 0.05 % ophthalmic drop 1 drop 2 times per day [Active]; albuterol sulfate 90 mcg/actuation Inhl HFAA as needed [Active]; Integra 125-40-3 mg oral cap 1 cap once daily [Active]; 18:37 Linzess 145 mcg oral cap 1 cap once daily [Active]; kg - PMHx: 17:44 ADD/ADHD; Blood Clot on R arm; Endometrosis; epilepsy; GERD; Leukemia; Pancreatitis; iw Hypothyroidism; - Immunization history:: Adult Immunizations up to date. - Social history:: Smoking status: unknown. ROS: 20:05 Eyes: Negative for injury, pain, redness, and discharge, ENT: Negative for injury, jr8 pain, and discharge, Neck: Negative for injury, pain, and swelling, Abdomen/GI: Negative for abdominal pain, nausea, vomiting, diarrhea, and constipation, Back: Negative for injury and pain, MS/Extremity: Negative for injury and deformity, Skin: Negative for injury, rash, and discoloration. 20:05 Cardiovascular: Positive for chest pain, Negative for edema, orthopnea, palpitations, paroxysmal nocturnal dyspnea. 20:05 Respiratory: Positive for shortness of breath, Negative for cough, sputum production, wheezing. 20:05 Neuro: Positive for dizziness, headache. Exam: 20:05 Eyes: Pupils equal round and reactive to light, extra-ocular motions intact. Lids and jr8 lashes normal. Conjunctiva and sclera are non-icteric and not injected. Cornea within normal limits. Periorbital areas with no swelling, redness, or edema. ENT: Nares patent. No nasal discharge, no septal abnormalities noted. Tympanic membranes are normal and external auditory canals are clear. Oropharynx with no redness, swelling, or masses, exudates, or evidence of obstruction, uvula midline. Mucous membranes moist. Neck: Trachea midline, no thyromegaly or masses palpated, and no cervical lymphadenopathy. Supple, full range of motion without nuchal rigidity, or vertebral point tenderness. No Meningismus. Cardiovascular: Regular rate and rhythm with a normal S1 and S2. No gallops, murmurs, or rubs. Normal PMI, no JVD. No pulse deficits. Respiratory: Lungs have equal breath sounds bilaterally, clear to auscultation and percussion. No rales, rhonchi or wheezes noted. No increased work of breathing, no retractions or nasal flaring. Abdomen/GI: Soft, non-tender, with normal bowel sounds. No distension or tympany. No guarding or rebound. No evidence of tenderness throughout. Back: No spinal tenderness. No costovertebral tenderness. Full range of motion. Skin: Warm, dry with normal turgor. Normal color with no rashes, no lesions, and no evidence of cellulitis. MS/ Extremity: Pulses equal, no cyanosis. Neurovascular intact. Full, normal range of motion. Neuro: Awake and alert, GCS 15, oriented to person, place, time, and situation. Motor strength 5/5 in all extremities. Sensory grossly intact. Vital Signs: 17:49 BP 140 / 91; Resp 20; Temp 97.5(TE); Pulse Ox 99% on 2 lpm NC; kg 20:01 BP 124 / 76; Pulse 89; Resp 18; Pulse Ox 99% on R/A; ap3 MDM: 17:44 Patient medically screened. [facility] 20:23 Data reviewed: vital signs, nurses notes, lab test result(s). Data interpreted: Pulse 8 oximetry: on room air is 99 %. Interpretation: normal. Counseling: I had a detailed discussion with the patient and/or guardian regarding: the historical points, exam findings, and any diagnostic results supporting the discharge/admit diagnosis, lab results, the need for outpatient follow up, a family practitioner, to return to the emergency department if symptoms worsen or persist or if there are any questions or concerns that arise at home. Response to treatment: the patient's symptoms have markedly improved after treatment, patient is well hydrated. 10/10 17:46 Order name: Basic Metabolic Panel [facility] 10/10 17:46 Order name: CBC with Diff [facility] 10/10 17:46 Order name: Hepatic Function [facility] 10/10 18:23 Order name: CBC with Automated Diff; Complete Time: 19:14 EDMS 10/10 18:27 Order name: Basic Metabolic Panel; Complete Time: 18:37 EDMS 10/10 18:28 Order name: Liver (Hepatic) Function; Complete Time: 18:37 EDMS 10/10 17:46 Order name: IV Saline Lock; Complete Time: 17:48 [facility] 10/10 17:46 Order name: Labs collected and sent; Complete Time: 17:48 [facility] 10/10 18:58 Order name: CBC Smear Scan; Complete Time: 19:14 EDMS Administered Medications: 18:05 Drug: NS 0.9% 1000 ml Route: IV; Rate: 125 ml/hr; Site: right antecubital; kg 19:20 Follow up: Response: No adverse reaction kg 20:48 Follow up: IV Status: Completed infusion ap3 19:20 Drug: Reglan (metoCLOPramide) 10 mg Route: IVP; Site: right antecubital; kg 20:48 Follow up: Response: No adverse reaction ap3 19:20 Drug: Benadryl (diphenhydrAMINE) 25 mg Route: IVP; Site: right antecubital; kg 20:48 Follow up: Response: No adverse reaction ap3 Disposition: 10/11 06:14 Co-signature as Attending Physician, Zach Shahid MD I agree with the assessment and kdr plan of care. Disposition: 10/10/20 20:38 Discharged to Home. Impression: Adverse effect of iron and its compounds. - Condition is Stable. - Discharge Instructions: Anaphylactic Reaction, Adult. - Medication Reconciliation Form, Thank You Letter, Antibiotic Education, Prescription Opioid Use form. - Follow up: Private Physician; When: 2 - 3 days; Reason: Recheck today's complaints, Continuance of care, Re-evaluation by your physician. - Problem is new. - Symptoms have improved. Signatures: Dispatcher [employer] EDMS Zach Shahid MD MD kdr Clara Black RN RN Tigre Carpenter PA PA jr8 Maddy Diaz RN RN ap3 Rosey Art RN RN kg Corrections: (The following items were deleted from the chart) 10/10 20:05 19:59 Patient started on iron infusion today at [facility] for anemia. Patient jr8 stated that after she started the infusion she started to get dizziness, headache, chest tightness. Patient given benadryl and decadron at facility with mild improvement . jr8 20:47 20:38 10/10/2020 20:38 Discharged to Home. Impression: Adverse effect of iron and its ap3 compounds. Condition is Stable. Forms are Medication Reconciliation Form, Thank You Letter, Antibiotic Education, Prescription Opioid Use. Follow up: Private Physician; When: 2 - 3 days; Reason: Recheck today's complaints, Continuance of care, Re-evaluation by your physician. Problem is new. Symptoms have improved. jr8
[2020-10-10 21:04] VITALS: TEMP 97.5; O2SAT 99
[2020-10-10 21:05] VITALS: BP 124/76
== END 2020-10-10 20:47 | disposition home or self-care (01) ==
LOC: ER 17:39
DX: R07.9 Chest pain, unspecified (principal); T45.4X5A Adverse effect of iron and its compounds, initial encounter; Y92.59 Other trade areas as the place of occurrence of the external cause; C95.90 Leukemia, unspecified not having achieved remission
CPT/HCPCS: 85025; 80048; 36415; 80076; J2765; J1200; J7030; 96361; 96374; 96375; 99284

== ENCOUNTER 2020-10-11 13:14 | Emergency (ER) | payer OTHER ==
--- OUTSIDE RECORDS SUMMARY | 2020-10-11 13:19 | XMS REPORT | Continuity of Care Document ---
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 Interpretation Comme nts SARS-CoV-2 (COVID-19) RNA [Presence] in Respiratory Detected No t-Detected specimen by SARI with probe detection (test code = 68971-9) Urine [id number] 12:51:05 Test Item Value Reference Range Interpretation Comments Urine culture (test SEE COMMENT Bacteriu kieran screen code = 2889610) negative. Turner WorleyOCT, Optic Nerve - [id number] 13:34:42Chavo Bull MD - 05/24/2020 5:54 PM CSTFormatting of this note might be different from the origi nal.Turner MethodistAutomated Visual Field, Extended - [id number] 13:34:39 Chavo Bull MD - 05/24/2020 5:54 PM CST Turner Worley3 in 1 [id number] 11:07:52 Test Item Value Reference Range Interpretation Comments SUPPLIER NAME (test XMED Oxygen and code = 6415) Medical SUPPLIER PHONE (test [phone] code = 6416) ORDER STATUS (test code Delivery Successful = 6417) DELIVERY NOTE (test code = 6419) REQUESTED DELIVEY DATE 02/16/2020 (test code = 6420) ITEM DESCRIPTION (test 3 in 1 Commode Qty : 1 code = 6423) ACTUAL DELIVERY DATE 02/16/2020 (test code = 6422) Turner WorleyEMG General [id number] 13:23:11Electromyogram and NCS ReportFORMERLY [facility] Neurological Nuikvbnel1378Burl,WP11,[place],TM95325P: F : Patient: Snow Argueta Physician: Nicolasa [...] Site: Wrist Pk Lat (ms) Amp (uV)Stim Jeii1zr dig 2.5 21.0 Sensory Nerve Study Right [...] independent left and right full field monocularstimulation. BaoH320 absolute latencies were 99.8 msec and 102.6 msec following independent left andright eye stimulation. All interpeak latencies and waveform morphologies were normal. ImpressionThisis a normal study. ICD10 Code/Diagnosis: O51Zzhemle MethodistMRI Lumbar Spine W Wo [id number] 11:16:59Hm Interface, Radiology Results 02/13/2020 11:20 AM [...] on the right. 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.1M2RAD_PS01 [place] MethodistVENIPUNC NEED PHYS SKILL,DX OR [id number] 10:39:11CFamilia hickey RN 02/08/2020 10:40 AMMidline Date/Time: [...] Flat Vessel Size (mm): 5 Indication: Known fpc IV therapy Location: Left basilic Device Type:Non-valved Catheter Lumen(s): Single lumen Catheter size: 3 Fr Catheter to vein ratio: 24%MidLine Characteristics: Catheter Brand: SL PROVENA MIDLINE Internal Catheter Length (cm): 12 Total Catheter Length (cm): 12 Catheter Lot Number: [id number] Catheter Expiration Date: 2Procedure details: Landmarks identified: [...] Patient tolerance of procedure: Tolerated well, no immediatecomplicationsTexas Health Harris Methodist Hospital CleburneistUs duplex venous upper [id number] 22:03:00Interface, Radiology Results In - 02/07/2020 10:03 PM CDT Vascular Ultrasound Laboratory Upper Extremity Venous Report [address] [place] [address] Pat.Name: SNOW ARGUETA Namrata.ID: [id number] .Date: 02/07/2020 Refer.MD: MICHAEL MADDOX MD Exam Time: 4:33:00PM Study Type:UE Venous Height: 66in Weight: 220lb BSA: 2.08 m2 Age: 7 1985,34Y Sex:FEMALE Sonogrphr: Ryan Torres RVT Pat. Stat.:Inpatient Room: [address] Tape Vol: HV, CPT - 4: 38597 Echo Event ID:[id number] Order ID: [id number] Reason for Study:Right arm pain and swelling. [...] FINDINGS: Signed 02/07/2020 10:03 PMChaz Obrien MD, RPVIWilkinson Synagogue Flow cytometry [id number] 09:52:18 Test Item Value Reference Range Interpretation Comments Case number (test code = [id number]) Flow cytometry evaluation See link below for (test code = 8652096) PDF Lab Report Turner WhatleyIlda NEED PHYS SKILL,DX OR [id number] 09:18:07Javier Kolb RN 02/07/2020 9:21 AMMidline Date/Time: [...] to vein ratio: 41%MidLine Characteristics: Catheter Brand: ANGIOSavage IO External Catheter Length (cm): 0 Internal Catheter Length (cm): 12 Total Catheter Length (cm): 12 Catheter Lot Number: [id number] Catheter Expiration Date: 1Procedure details: Landmarks identified: [...] tolerance of procedure: Tolerated well, no immediate complicationsWilliam [place] [address] [id number] 12:49:19 Test Item Value Reference Range Interpretation Comments Ventricular rate (test 78 code = 253) Atrial rate (test code 78 = 255) CO interval (test code 144 = 266) QRSD [...] was found- Turner MethodistXR Chest 1 Vw [id number] 22:09:52Hm Interface, Radiology Results Incoming - 02/05/2020 10:12 PM CDT EXAMINATION: XR CHEST 1 VW PORTABLECLINICAL HISTORY: 34 years Female chest pressure on exertionCOMPARISON: None.IMPRESSION:No acute cardiopulmonary disease.FINDINGS:The card iomediastinal silhouette, lungs, and regional skeletal structures are within normal limits for age.[facility]-[id number] MethodistCytology (non-gynecological) [id number] 18:15:16 Test Item Value Reference Range Interpretation Comments Case number (test code = [id number]) Cytology See link below for (non-gynecological) PDF Lab Report report (test code = 1178) Result status (test code This is Final Report = [id number]) for [id number] [place] MethodistEEG (routine)2020-02-04 10:51:25EEG AWAKE AND ASLEEP [...] or epileptiform activity was recorded. ICD-10 Code: N181Pfyiwuu MethodistIR Lumbar Puncture by Radiology 2020-02-04 10:23:15Hm [...] lumbar puncture.Opening pressure was 21 cm of water.[facility]-[id number] KmizskwufEHXP-QhA-4 (COVID-19) RNA [Presence] in Respiratory specimen by SARI with probe [id number] 05:23:12 Test Item Value Reference Range Interpretation Comments SARS-CoV-2 (COVID-19) RNA Not detected Not-Detected [Presence] in Respiratory specimen by SARI with probe detection (test code = 07977-9) MRI Brain & Orbit W Wo [id number] 22:36:27Hm Interface, Radiology Results 02/03/2020 10:39 PM [...] are preserved.IMPRESSION:Unremarkable MRI of the brain and orbits.[facility]-[id number] [facility] Head Wo [id number] 16:17:18Hm Interface, Radiology Results 02/03/2020 4:20 PM [...] intact.IMPRESSION:No CT evidence for acute intracranial abnormality.1M2RAD_PS01[place] [facility]
[2020-10-11 14:24] LABS: Absolute Lymphocytes (CBC) 2.2 K/uL (0.7-4.9); Basophils % 0.2 % (0-1.3); Hematocrit 36.3 % (36.0-45.0); Lymphocytes % 15.8 % (15.3-44.8); MPV 10.2 fL (7.6-11.3); RBC Red Blood Cell Count 4.16 M/uL (3.86-4.86)
[2020-10-11 14:35] LABS: Urine Blood Negative (Negative); Urine Glucose Negative (Negative); Urine Protein Negative (Negative); Urine Specific Gravity 1.025 (1.005-1.030); Urine pH 5.5 (5.0-7.0)
[2020-10-11 14:44] LABS: ALT/SGPT 23 U/L (12-78); AST/SGOT 7 U/L (15-37); Albumin 4.1 g/dL (3.4-5.0); Alkaline Phosphatase 69 U/L (45-117); BUN Blood Urea Nitrogen 6 mg/dL (7-18); Bicarbonate 23 mmol/L (21-32); Bilirubin Direct 0.1 mg/dL (0-0.2); Bilirubin Total 0.3 mg/dL (0.2-1.0); Glucose Level 111 mg/dL (74-106); Lipase 96 U/L (73-393); Potassium 3.1 mmol/L (3.5-5.1); Protein, Total 7.4 g/dL (6.4-8.2); Sodium Level 139 mmol/L (136-145)
--- NOTE | 2020-10-11 15:02 | RAD REPORT ---
EXAM DESCRIPTION: CT - Chest For Pe Angio - 10/11/2020 2:51 pm CLINICAL HISTORY: Chest pain COMPARISON: May 2020 TECHNIQUE: Dynamically enhanced axial 3 mm thick images of the chest were obtained during administra tion of <100> mL Isovue 370 IV contrast. Coronal and oblique reconstruction images were generated and reviewed. Exam utilizes a protocol for optimal evaluation of pulmonary arterial tree. Maximum intensity projections 3D imaging was utilized All CT scans are performed using dose optimization technique as appropriate and may include automated exposure control or mA/KV adjustment according to patient size. FINDINGS: A pulmonary embolus is not seen. A thoracic aortic aneurysm is not noted. A pleural effusion is not seen. A pericardial effusion is not seen. A lung consolidation is not present. IMPRESSION: Negative for a pulmonary embolism.
--- NOTE | 2020-10-11 15:09 | RAD REPORT ---
EXAM DESCRIPTION: CT - Abdomen Pelvis W Contrast - 10/11/2020 2:50 pm CLINICAL HISTORY: Abdominal pain/diarrhea COMPARISON: July 2020 TECHNIQUE: Computed axial tomography of the abdomen pelvis was obtained. 100 cc Isovue-300 was admin istered intravenously. Oral contrast was not requested which limits evaluation of bowel and appendix. All CT scans are performed using dose optimization technique as appropriate and may include automated exposure control or mA/KV adjustment according to patient size. FINDINGS: The liver, pancreas, adrenal and kidneys appear unremarkable. Small enhancing lesion with in the spleen unchanged likely benign There is no evidence of diverticulitis. No adnexal mass seen. Uterus is retroverted. A tampon is present within vagina IMPRESSION: No acute abnormality is displayed.
[2020-10-11] MEDS ORDERED: MORPHINE 4 MG/ML SYR ONE (15:31)
[2020-10-11 15:36] LABS: Urine Bacteria <20 /HPF (<20); Urine RBC <5 /HPF (NONE SEEN)
--- NOTE | 2020-10-11 16:38 | EDPHYS ---
Physician Documentation [facility] Name: Snow Argueta Age: 34 yrs Sex: Female : 1985 Arrival Date: 10/11/2020 Time: 13:17 Bed 23 Private MD: Soco Savage ED Physician Mathtew Ramriez HPI: 10/11 15:09 This 34 yrs old Female presents to ER via Wheelchair with complaints of Chest rn Pain, Abdominal Pain, Nausea. 15:09 The patient presents with abdominal pain in the epigastric area. Onset: The rn symptoms/episode began/occurred yesterday. The symptoms do not radiate. Associated signs and symptoms: Pertinent positives: chest pain, constipation, diarrhea, nausea, Pertinent negatives: blood in stools, shortness of breath. The symptoms are described as achy, crampy. Modifying factors: The symptoms are alleviated by nothing, the symptoms are aggravated by nothing. Severity of pain: At its worst the pain was moderate in the emergency department the pain is unchanged. The patient has not experienced similar symptoms in the past. The patient has been recently seen by a physician:. Reports iron infusion yesterday, had what she thought was a bad reaction to infusion, brought here, discharged, states didn't feel much better, today worsening and addition of chest pain/abd pain/nausea/diarrhea/cramping/fatigue. No fever. No rash. Has lupus and in workup for possible other autoimmune disorder. . Historical: - Allergies: 13:39 Cephalexin; tw2 13:39 Gadavist; tw2 13:39 Latex, Natural Rubber; tw2 13:39 Zofran; tw2 - PMHx: 13:39 ADD/ADHD; epilepsy; Endometrosis; GERD; Blood Clot on R arm; Hypothyroidism; Leukemia; tw2 Pancreatitis; - Immunization history:: Adult Immunizations. - Social history:: Smoking status: . - Family history:: not pertinent. - Hospitalizations: : No recent hospitalization is reported. ROS: 15:09 Constitutional: Negative for fever, chills, and weight loss, Eyes: Negative for injury, rn pain, redness, and discharge, Neck: Negative for injury, pain, and swelling, Cardiovascular: + chest pain Respiratory: Negative for sob/cough Abdomen/GI: + abd pain/nausea/diarrhea : Negative for injury, bleeding, discharge, and swelling, MS/Extremity: Negative for injury and deformity, Skin: Negative for injury, rash, and discoloration, Neuro: Negative for headache, weakness, numbness, tingling, and seizure. Exam: 15:09 Constitutional: This is a well developed, well nourished patient who is awake, alert, rn and in no acute distress. Seems anxious. Head/Face: Normocephalic, atraumatic. Eyes: Periorbital areas with no swelling, redness, or edema. Cardiovascular: Regular rate and rhythm. No pulse deficits. Respiratory: No increased work of breathing, no retractions or nasal flaring. Abdomen/GI: soft, + mild epigastric tenderness, no rebound Skin: Warm, dry MS/ Extremity: Pulses equal, no cyanosis. Neuro: Awake and alert, GCS 15, oriented to person, place, time, and situation. Cranial nerves II-XII grossly intact. Motor strength 5/5 in all extremities. Sensory grossly intact. Cerebellar exam normal. Vital Signs: 13:36 BP 120 / 80; Pulse 88; Resp 17; Temp 97.9(TE); Pulse Ox 100% on R/A; Weight 83.91 kg tw2 (R); Height 5 ft. 6 in. (167.64 cm); 13:59 BP 132 / 95; Pulse 78; Resp 12; Pulse Ox 100% ; vg1 15:13 BP 123 / 78; Pulse 90; Resp 14; Pulse Ox 100% on R/A; vg1 16:00 BP 134 / 98; Pulse 70; Resp 16; Pulse Ox 98% on R/A; vg1 13:36 Body Mass Index 29.86 (83.91 kg, 167.64 cm) tw2 MDM: 13:41 Patient medically screened. rn 16:34 Differential diagnosis: appendicitis, cholecystitis, Cholelithiasis, diverticulitis, rn gastritis, gastroesophageal reflux disease, non-specific abd pain, pancreatitis, Peptic Ulcer Disease, Pyelonephritis, Ureterolithiasis, urinary tract infection. Data reviewed: vital signs, nurses notes, lab test result(s), radiologic studies, CT scan, and as a result, I will discharge patient. Counseling: I had a detailed discussion with the patient and/or guardian regarding: the historical points, exam findings, and any diagnostic results supporting the discharge/admit diagnosis, lab results, radiology results, the need for outpatient follow up, to return to the emergency department if symptoms worsen or persist or if there are any questions or concerns that arise at home. Response to treatment: the patient's symptoms have mildly improved after treatment, and as a result, I will discharge patient. Special discussion: Based on the patient's history, exam, and Dx evaluation, there is no indication for emergent intervention or inpatient Tx. It is understood by the patient/guardian that if the Sx's persist or worsen they need to return immediately for re-evaluation. Based on the patient's Hx, exam, and Dx evaluation, there is no indication for emergent surgery or inpatient Tx. It is understood by the patient/guardian that if the Sx's persist or worsen they need to return immediately for re-evaluation. I discussed with the patient/guardian in detail that at this point there is no indication for admission to the hospital. It is understood, however, that if the symptoms persist or worsen the patient needs to return immediately for re-evaluation. Based on the history and exam findings, there is no indication for further emergent testing or inpatient evaluation. I discussed with the patient/guardian the need to see the lens blank gauger for further evaluation of the symptoms. ED course: No acute findings in blood or CT chest/abdomen. Hemoglobin normal and normal MCV, did not perform iron studies here. Will dc home with pcp and rheumatology f/u as needed given no acute findings for chest or abd pain found today or last visit. Does not appear to be allergic reaction, could be adverse reaction to iron infusion but now > 24 hours out of infusion and still symptomatic. . 10/11 13:52 Order name: Basic Metabolic Panel rn 10/11 13:52 Order name: CBC with Diff rn 10/11 13:52 Order name: Hepatic Function rn 10/11 13:52 Order name: Lipase rn 10/11 13:52 Order name: Urine Microscopic Only rn 10/11 14:25 Order name: CBC with Automated Diff; Complete Time: 15:08 EDNH 10/11 13:52 Order name: CT Abd/Pelvis - IV Contrast Only rn 10/11 13:52 Order name: CT Chest For PE Angio rn 10/11 14:35 Order name: Urine Dipstick-Ancillary; Complete Time: 15:08 EDNH 10/11 14:44 Order name: Basic Metabolic Panel; Complete Time: 15:08 EDMS 10/11 14:44 Order name: Liver (Hepatic) Function; Complete Time: 15:08 [facility] 10/11 14:44 Order name: Lipase; Complete Time: 15:08 [facility] 10/11 14:51 Order name: Urine --Ancillary (enter results) 10/11 15:37 Order name: Urine Microscopic Only; Complete Time: 16:03 EDNH 10/11 13:52 Order name: IV Saline Lock; Complete Time: 14:18 10/11 13:52 Order name: Labs collected and sent; Complete Time: 14:18 10/11 13:52 Order name: Urine Test (obtain specimen); Complete Time: 14:35 rn 10/11 13:52 Order name: Urine Dipstick-Ancillary (obtain specimen); Complete Time: 14:35 10/11 13:52 Order name: EKG; Complete Time: 13:53 10/11 13:52 Order name: EKG - Nurse/Tech; Complete Time: 14:02 10/11 15:03 Order name: CT; Complete Time: 15:08 [facility] 10/11 15:10 Order name: CT; Complete Time: 15:22 EDMS Administered Medications: 15:13 Drug: morphine 4 mg Route: IVP; Site: right antecubital; vg1 16:17 Follow up: Response: No adverse reaction; Pain is decreased vg1 Disposition: 10/11/20 16:38 Discharged to Home. Impression: Chest pain, unspecified, Unspecified abdominal pain. - Condition is Stable. - Discharge Instructions: Abdominal Pain, Adult, Nonspecific Chest Pain, Pain Without a Known Cause. - Medication Reconciliation Form, Thank You Letter, Antibiotic Education, Prescription Opioid Use form. - Follow up: Private Physician; When: As needed; Reason: Recheck today's complaints, Re-evaluation by your physician. - Problem is new. - Symptoms have improved. Signatures: Dispatcher [employer] EDNH Matthew Ramirez MD MD rn Attema, Lee, TIRE AND LUBE TECHNICIAN-C TIRE AND LUBE TECHNICIAN-Cla1 Ericka Gates RN RN tw2 Marie Bo, RN RN vg1 Corrections: (The following items were deleted from the chart) 16:57 16:38 10/11/2020 16:38 Discharged to Home. Impression: Chest pain, unspecified; vg1 Unspecified abdominal pain. Condition is Stable. Forms are Medication Reconciliation Form, Thank You Letter, Antibiotic Education, Prescription Opioid Use. Follow up: Private Physician; When: As needed; Reason: Recheck today's complaints, Re-evaluation by your physician. Problem is new. Symptoms have improved. rn
--- NOTE | 2020-10-11 16:38 | ER ---
Nurse's Notes [facility] Name: Snow Argueta Age: 34 yrs Sex: Female : 1985 Arrival Date: 10/11/2020 Time: 13:17 Bed 23 Private MD: Soco Savage Diagnosis: Chest pain, unspecified;Unspecified abdominal pain Presentation: 10/11 13:36 Chief complaint: Patient states: they brought me by ambulance from the cancer treatment tw2 for a bad reaction to an iron infusion. i feel like i am having a rebound attack from that. i am feeling nauseous, i vomited, i am very dizzy. and tightness in my chest. Chief complaint: Patient states: i have had diarrhea all morning too and i keep getting flush in my face too and i feel short of breath. Chief complaint: Patient states: i also feel like it is hard to swallow my saliva again. Coronavirus screen: At this time, the client does not indicate any symptoms associated with coronavirus-19. Ebola Screen: Patient denies travel to an Ebola-affected area in the 21 days before illness onset. Initial Sepsis Screen: Does the patient meet any 2 criteria? No. Patient's initial sepsis screen is negative. Does the patient have a suspected source of infection? No. Patient's initial sepsis screen is negative. Risk Assessment: Do you want to hurt yourself or someone else? Patient reports no desire to harm self or others. Onset of symptoms was October 11, 2020. 13:36 Method Of Arrival: Wheelchair tw2 13:36 Acuity: LEONEL 2 tw2 Triage Assessment: 13:39 General: Appears in no apparent distress. well groomed, Behavior is calm, cooperative, tw2 appropriate for age. Pain: Complains of pain in chest. Neuro: Reports headache numbness and i feel like i am getting the same aura i get with seizures this time too. Cardiovascular: Reports shortness of breath. Historical: - Allergies: 13:39 Cephalexin; tw2 13:39 Gadavist; tw2 13:39 Latex, Natural Rubber; tw2 13:39 Zofran; tw2 - PMHx: 13:39 ADD/ADHD; epilepsy; Endometrosis; GERD; Blood Clot on R arm; Hypothyroidism; Leukemia; tw2 Pancreatitis; - Immunization history:: Adult Immunizations. - Social history:: Smoking status: . - Family history:: not pertinent. - Hospitalizations: : No recent hospitalization is reported. Screenin:00 Abuse screen: Denies threats or abuse. Nutritional screening: No deficits noted. vg1 Tuberculosis screening: No symptoms or risk factors identified. Fall Risk No fall in past 12 months (0 pts). No secondary diagnosis (0 pts). IV access (20 points). Ambulatory Aid- None/Bed Rest/Nurse Assist (0 pts). Gait- Normal/Bed Rest/Wheelchair (0 pts) Mental Status- Oriented to own ability (0 pts). Total Arteaga Fall Scale indicates No Risk (0-24 pts). Assessment: 13:58 General: Appears in no apparent distress. comfortable, Behavior is calm, cooperative. vg1 Pain: Complains of pain in abdomen and chest Pain does not radiate. Pain currently is 10 out of 10 on a pain scale. Pain began 1 hour ago. Noted to be grimacing, guarding. Neuro: Level of Consciousness is awake, alert, obeys commands, Oriented to person, place, time, situation, Reports headache. Cardiovascular: Patient's skin is warm and dry. Respiratory: Airway is patent Respiratory effort is even, unlabored. GI: Reports lower abdominal pain, diarrhea, epigastric pain, nausea, vomiting. : No signs and/or symptoms were reported regarding the genitourinary system. EENT: No signs and/or symptoms were reported regarding the EENT system. Derm: Skin is intact, is healthy with good turgor. Musculoskeletal: Circulation, motion, and sensation intact. 15:13 Reassessment: Patient appears in no apparent distress at this time. No changes from vg1 previously documented assessment. Patient and/or family updated on plan of care and expected duration. Pain level reassessed. Patient is alert, oriented x 3, equal unlabored respirations, skin warm/dry/pink. 16:16 Reassessment: Patient appears in no apparent distress at this time. No changes from vg1 previously documented assessment. Patient and/or family updated on plan of care and expected duration. Pain level reassessed. Patient is alert, oriented x 3, equal unlabored respirations, skin warm/dry/pink. Vital Signs: 13:36 BP 120 / 80; Pulse 88; Resp 17; Temp 97.9(TE); Pulse Ox 100% on R/A; Weight 83.91 kg tw2 (R); Height 5 ft. 6 in. (167.64 cm); 13:59 BP 132 / 95; Pulse 78; Resp 12; Pulse Ox 100% ; vg1 15:13 BP 123 / 78; Pulse 90; Resp 14; Pulse Ox 100% on R/A; vg1 16:00 BP 134 / 98; Pulse 70; Resp 16; Pulse Ox 98% on R/A; vg1 13:36 Body Mass Index 29.86 (83.91 kg, 167.64 cm) tw2 ED Course: 13:17 Patient arrived in ED. mr 13:17 Soco Savage MD is Private Physician. mr 13:38 Triage completed. tw2 13:38 Arm band placed on. tw2 13:41 Matthew Ramirez MD is Attending Physician. rn 13:42 Marie Bo RN is Primary Nurse. vg1 14:00 monitor car operator on. Pulse ox on. NIBP on. vg1 14:00 Patient has correct armband on for positive identification. Placed in gown. Bed in low vg1 position. Call light in reach. Side rails up X2. 14:00 Patient maintains SpO2 saturation greater than 95% on room air. vg1 14:18 Initial lab(s) drawn, by me, sent to lab. Inserted saline lock: 20 gauge in right vg1 antecubital area, using aseptic technique. Blood collected. 16:57 No provider procedures requiring assistance completed. IV discontinued, intact, vg1 bleeding controlled, No redness/swelling at site. Pressure dressing applied. Administered Medications: 15:13 Drug: morphine 4 mg Route: IVP; Site: right antecubital; vg1 16:17 Follow up: Response: No adverse reaction; Pain is decreased vg1 Outcome: 16:38 Discharge ordered by . rn 16:57 Discharged to home ambulatory. vg1 16:57 Condition: stable 16:57 Discharge instructions given to patient, Instructed on discharge instructions, follow up and referral plans. Demonstrated understanding of instructions, follow-up care. 16:57 Patient left the ED. vg1 Signatures: Love [place] mr Matthew Ramirez MD MD rn Wise, Tara, RN RN tw2 Marie Bo RN RN vg1 Corrections: (The following items were deleted from the chart) 14:03 13:58 GI: Reports diarrhea, nausea, vomiting, vg1 vg1
[2020-10-11 17:19] VITALS: TEMP 97.9
[2020-10-11 17:23] VITALS: BP 134/98; O2SAT 98
--- NOTE | 2020-10-12 10:34 | EKG ---
Test Date: 2020-10-11 Test Time: 13:53:47 Jointer [employer]: SHERYL MEASUREMENT RESULTS: Intervals: Rate: 79 ID: [id number] QRSD: 88 QT: 398 QTc: 456 Harper: P: 56 ID: [id number] QRS: 58 T: 54 INTERPRETIVE STATEMENTS: Normal sinus rhythm Normal ECG Compared to ECG 08/15/2020 12:47:28 No significant changes Electronically Signed On 10-12-20 10:31:54 CDT by Bryant Dickerson
== END 2020-10-11 16:57 | disposition home or self-care (01) ==
LOC: ER 13:14
DX: R07.9 Chest pain, unspecified (principal); Z85.6 Personal history of leukemia; Z88.8 Allergy status to other drugs, medicaments and biological substances; Z91.040 Latex allergy status; Z91.048 Other nonmedicinal substance allergy status
CPT/HCPCS: 85025; 80048; 36415; 80076; 83690; 71275; 74177; Q9967; 81003; 81015; 93005; 96374; 99285

== ENCOUNTER 2020-12-25 10:39 | Emergency (ER) | payer OTHER ==
--- OUTSIDE RECORDS SUMMARY | 2020-12-25 10:41 | XMS REPORT | Clinical Summary ---
:1985 Author Organization [facility] MD [facility], [place] Address [address] [place] [address] Care Team Providers Name Role Phone MD Yari Primary Care Provider MD Brayan Unavailable MD Karmen Unavailable Rose Marie Yancey MD Unavailable MD Becky Unavailable MD Cassius Unavailable Unavailable MD Mary Unavailable Unavailable Yuri Dunlap Unavailable GERARD Etienne Unavailable TIFFANIE Johnson Unavailable John Allison Unavailable MD Lionel Unavailable Anna Winchester NP Unavailable Unavailable MD Susana Unavailable XOCHITL Milligan Unavailable MD Maura Unavailable So Alfaro MD Unavailable MD Yari Unavailable Christopher Graham NP Unavailable Holger, BRICK YARD HAND Unavailable Gabriela, PA Unavailable Severiano, BRICK YARD HAND Unavailable Yamil Chaidez MD Unavailable Waijuan Mike PA Unavailable Jennifer Jung PA Unavailable [facility] BRICK [facility] HAND Unavailable Marcela Damico MD Unavailable Anna Damico MD Unavailable Milana Florez MD Unavailable MD Hilario Unavailable MD Shirley Unavailable MD Lyle Unavailable MD Kehinde Unavailable MD Evan Unavailable Doug Stack MD Unavailable Allergies Active Allergy Reactions Severity Noted Date Comments Cefpodoxime Hives Medium 06/12/2015 Cephalexin Hives High 01/31/2016 Gadobutrol Other (See Comments) 06/12/2015 Nausea / Vomiting-iodine prior to MRI Latex Dermatitis 06/12/2015 Medications Medication Sig Dispensed Refills Start Date End Date Status VYVANSE 40 mg capsule Take 1 tablet by 0 01/07/2017 Active mouth daily. 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 Encounters Date Type Specialty Care Team Description 07/29/2020 Orders Only Infectious Diseases Geo Paula MD S ARS-CoV-2 vaccination after 12/26/2019 Immunizations Name Administration Dates Next Due Influenza Split Surgical History Surgery Date Site/Laterality Comments APPENDECTOMY 03/21/2017 - 04/20/2017 CHOLECYSTECTOMY 09/02/2018 TUBAL LIGATION 03/11/2018 Medical History Medical History Date Comments Screening colonoscopy 01/2016 found benign polyp s in the sigmoid colon that were removed Acute pancreatitis 08/2018 Family History Medical History Relation Name Comments Kidney cancer Paternal Grandfather Pastora Relation Name Status Comments Paternal Grandfather Pastora Alive Social History Tobacco Use Types Packs/Day Years Used Date Never Assessed Sex Assigned at Date Recorded Not on file Last Filed Vital Signs Not on file Plan of Treatment Health Maintenance Due Date Last Done Comments COVID-19 Vaccination (1) 1998 Results Not on fileafter 12/26/2019 Insurance Payer Benefit Plan / Subscriber ID Effective Dates Phone Addre ss Type Group BLUE [employer] [place] POS [id number] 2018-Present PPO [place], [place] (Work) [id number] Snow Argueta Personal/Family Self 1985 [address] ([place]) [address] [id number] [place] (Work) [id number] Snow Argueta Personal/Family Self 1985 [address] ([place]) [address] [id number] [place] [address]
--- OUTSIDE RECORDS SUMMARY | 2020-12-25 10:44 | XMS REPORT | Continuity of Care Document ---
:1985 Author Organization [facility] t Address [address] [place] [address] Care Team Providers Name Role Phone Yari HAMLITON Primary Care Physician Harsh Attending Clinician Unavailable Lesley Savage DO Attending Clinician Marck Chung Attending Clinician ALFONZO Attending Clinician Unavailable Alfonzo HAMILTON Attending Clinician Nisa HAMILTON Attending Clinician Jennifer Mistry MD. Attending Clinician Anival [facility] Attending Clinician Unavailable Lyndsay HAMILTON Attending Clinician Nasreen HAMILTON Attending Clinician Ashok Tsai MD Attending Clinician MD Jennifer DOWNEY Attending Clinician Unavailable Jae Bull MD Attending Clinician Marichuy HAMILTON Attending Clinician Toni Maldonado MD Attending Clinician Barber Attending Clinician Unavailable Janice Guevara MD Attending Clinician Edwin HAMILTON Attending Clinician Varsha HAMILTON, [facility] Attending Clinician Ricky HOBSON Attending Clinician Unavailable MD EDWIN Attending Clinician Unavailable NASREEN Admitting Clinician Unavailable MD Jennifer DOWNEY Admitting Clinician Unavailable ONW Admitting Clinician Unavailable EDWIN Admitting Clinician Unavailable MD EDWIN Admitting Clinician Unavailable Payers Payer Name Policy Type Policy Number Effective Date Expiration Date S ource OUT OF STATE [facility] [id number] - PPO - [facility] OPEN ACCESS PLUS [id number] - [employer] BLUE CROSS BLUE [id number] 2018 MD Andrea benito [facility] PPO 00:00:00 [id number] Problems Condition Condition Condition Status Onset Resolution Last Treating Co mments Source Name Details Category Date Date Treatment Clinician Date Weakness Weakness Disease Active Metho di of right of right 2-14 st arm arm 00:00: Hospita 00 l COVID-19 COVID-19 Disease Active Metho di virus virus 2-14 st detected detected 00:00: Hospit a 00 l Lower Lower Disease Active 2019-04 Methodi extremity extremity 0-28 st weakness weakness 00:00: Hospit a 00 l Debility Debility Disease Active 2019-04 Metho di 0-26 st 00:00: Hospita 00 l Weakness Weakness Disease Active 2019-04 Metho di 0-24 st 00:00: Hospita 00 l 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 M ethodi al al 0-24 st dysfunctio dysfunctio 00:00: Ho spita n n 00 l 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 Methodi neuritis neuritis 0-15 st 00:00: Hospita 00 l 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, leukemia, 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 Backache Problem Active 2020-12-03 Mem oria (finding) 21:41:00 l Backache Murray n (finding) Active Problem 12/03/2020 [facility] 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) Active Problem 09/01/2020 [facility] History of Problem Active 2020-12-03 M emoria - * 21:41:00 l leukemia History Rupal nn (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) (context-d ependent category) Active Problem 12/03/2020 [facility] Headache Problem Active 2020-12-03 Mem oria (finding) 21:41:00 l Headache Murray n (finding) Active Problem 12/03/2020 [facility] Simple Problem Active 2020-12-03 Memor ia obesity 21:41:00 l (disorder) Simple Herm zay obesity (disorder) Active Problem 12/03/2020 [facility] Cervical Problem Active 2020-12-03 Mem oria radiculopa 21:41:00 l thy Cervical Murray n (disorder) radiculopa thy (disorder) Active Problem 12/03/2020 [facility] Disease Problem Active 2020-12-03 Unruly kieran caused by 21:41:00 l 2019-nCoV Disease Herm zay caused by 2019-nCoV Active Problem 12/03/2020 [facility] Disorienta Problem Active 2020-12-03 M emoria leon 21:41:00 l (finding) Ricardo Disorienta leon (finding) Active Problem 12/03/2020 [facility] Hemiplegia Problem Active 2020-12-03 M emoria (disorder) 21:41:00 l Ricardo Hemiplegia (disorder) Active Problem 12/03/2020 [facility] Hypothyroi Problem Active 2020-12-03 M emoria dism 21:41:00 l (disorder) Murray n Hypothyroi dism (disorder) Active Problem 12/03/2020 [facility] Seizure Problem Active 2020-12-03 Unruly kieran disorder 21:41:00 l (disorder) Seizure Her sesay disorder (disorder) Active Problem 12/03/2020 [facility] Visual Problem Active 2020-12-03 Memor ia disturbanc 21:41:00 l e Visual [place] (disorder) disturbanc e (disorder) Active Problem 12/03/2020 [facility] Allergies, Adverse Reactions, Alerts Allergy Allergy Status Severity Reaction(s) Onset Inactive Treating Comm ents Source Name Type Date Date Clinician Cephalex Propensi Active Hives 2019-04 Method i in ty to 0-16 st adverse 00:00: Hospita reaction 00 l s to drug Latex Propensi Active Hives 2019-04 Methodi ty to 0-16 st adverse 00:00: Hospita reaction 00 l s to drug Ondanset Propensi Active Headache 2019-04 Meth tanvi mikey Hcl ty to 0-16 st adverse 00:00: Hospita reaction 00 l s to drug Gadobutr Propensi Active Other (See 2019-04 Vomiting1 Methodi ol ty to Comments) st adverse 00:00: 8:30pm- Hospita reaction 00 Per l s to patient drug denied shortness of breath, hives, itchiness . Only nauseous/ vomiting as a side effect after administr ation of Gadavist. 06/06/20: Patient Premedica leon with IV Promethaz ine for Nausea prior to MRI.Patie nt reported Nausea but no Vomiting noted after MRI Contrast given. Cephalex Adverse Active Info Not [facility] Zofran Adverse Active Info Not [facility] Reaction Available [facility] cephalex cephalex Active Memori a in in l Ricardo Latex Latex Active Memoria matt Silva Gadavist Gadavist Active Memori a l Ricardo Zofran Zofran Active Memoria l [place] Feraheme Feraheme Active Memori a l [place] Family History Family Member Diagnosis Comments Start Date Stop Date Source Paternal grandfather Kidney cancer [facility] Social History Social Habit Start Date Stop Date Quantity Comments Source Tobacco use and 2020-06-10 2020-06-10 Never used [facility] 00:00:00 00:00:00 Hospital Alcohol intake 2020-06-10 2020-06-10 Current drinker Metho dist 00:00:00 00:00:00 of [facility] (finding) Alcohol Comment 2020-02-03 2020-02-03 occ drinker Methodis t 00:00:00 00:00:00 Hospital Social History 2018-10-01 2018-10-01 [facility] 13:53:53 13:53:53 Sex Ass[birth year] At [birth year] [facility] 00:00:00 00:00:00 Hospital Smoking Status Start Date Stop Date Source Never smoker [facility] Medications Ordered Filled Start Stop Current Ordering Indication Dosage Frequency Signature Comments Components Source Medication Medication Date Date Medication? Clinician (SIG) Name Name Hydroxychlo Yes 200 mg = 1 Memoria roquine 6-24 tab, PO, l Sulfate 200 20:11: Daily, 0 He rmann MG Oral 00 Refill(s) Tablet Hydroxychlo 2020-0 Yes 200 mg = 1 Memoria roquine 6-24 tab, PO, l Sulfate 200 20:11: Daily, 0 He rmann MG Oral 00 Refill(s) Tablet Hydroxychlo 2020-0 Yes 200 mg = 1 Memoria roquine 6-24 tab, PO, l Sulfate 200 20:11: Daily, 0 He rmann MG Oral 00 Refill(s) Tablet Hydroxychlo 2020-0 Yes 200 mg = 1 Memoria roquine 6-24 tab, PO, l Sulfate 200 20:11: Daily, 0 He rmann MG Oral 00 Refill(s) Tablet 24 HR Yes 400 mg = 2 Memori a topiramate 6-24 cap, PO, l 200 MG 20:06: Bedtime, # Rupal nn Extended 00 180 cap, 2 Release Refill(s), [id number], 167.64, cm, 10/12/20 14:33:00 CDT, Height, 86.818, kg, 10/12/20 14:33:00 CDT, Weight 24 HR Yes 400 mg = 2 Memori a topiramate 6-24 cap, PO, l 200 MG 20:06: Bedtime, # Rupal nn Extended 00 180 cap, 2 Release Refill(s), [id number], 167.64, cm, 10/12/20 14:33:00 CDT, Height, 86.818, kg, 10/12/20 14:33:00 CDT, Weight 24 HR Yes 400 mg = 2 Memori a topiramate 6-24 cap, PO, l 200 MG 20:06: Bedtime, # Rupal nn Extended 00 180 cap, 2 Release Refill(s), Capsule Pharmacy: [[facility] #[id number], 167.64, cm, 10/12/20 14:33:00 CDT, Height, 86.818, kg, 10/12/20 14:33:00 CDT, Weight 24 HR 0 Yes 400 mg = 2 Memori a topiramate 6-24 cap, PO, l 200 MG 20:06: Bedtime, # Rupal nn Extended 00 180 cap, 2 Release Refill(s), Capsule Pharmacy: [[facility] #[id number], 167.64, cm, 10/12/20 14:33:00 CDT, Height, 86.818, kg, 10/12/20 14:33:00 CDT, Weight omeprazole 2020-0 Yes TAKE ONE Mem oria 40 mg oral 6-24 CAPSULE BY l delayed 19:42: MOUTH [place] release 00 EVERY capsule MORNING mesalamine 0 Yes TAKE 2 Memor ia 500 MG 6-24 CAPSULES l Extended 19:42: BY MOUTH Rupal nn Release 00 TWICE Capsule DAILY [Pentasa] omeprazole 0 Yes TAKE ONE Mem oria 40 mg oral 6-24 CAPSULE BY l delayed 19:42: MOUTH [place] release 00 EVERY capsule MORNING mesalamine 2020-0 Yes TAKE 2 Memor ia 500 MG 6-24 CAPSULES l Extended 19:42: BY MOUTH Rupal nn Release 00 TWICE Capsule DAILY [Pentasa] omeprazole 2020-0 Yes TAKE ONE Mem oria 40 mg oral 6-24 CAPSULE BY l delayed 19:42: MOUTH Ricardo release 00 EVERY capsule MORNING mesalamine 2020-0 Yes TAKE 2 Memor ia 500 MG 6-24 CAPSULES l Extended 19:42: BY MOUTH Rupal nn Release 00 TWICE Capsule DAILY [Pentasa] omeprazole 2020-0 Yes TAKE ONE Mem oria 40 mg oral 6-24 CAPSULE BY l delayed 19:42: MOUTH Ricardo release 00 EVERY capsule MORNING mesalamine 2020-0 Yes TAKE 2 Memor ia 500 MG 6-24 CAPSULES l Extended 19:42: BY MOUTH Rupal nn Release 00 TWICE Capsule DAILY [Pentasa] Famotidine 2020-0 No 0 Memoria 40 MG Oral 6-24 Refill(s) l Tablet 19:41: [place] 00 linaclotide 2021-0 Yes 145 Memori a 0.145 MG 6-24 microgram l Oral 19:41: = 1 cap, Ricardo Capsule 00 PO, Daily, [Linzess] 30 minutes prior to the first meal of the day, # 30 cap, 0 Refill(s) Famotidine No 0 Memoria 40 MG Oral 6-24 Refill(s) l Tablet 19:41: linaclotide Yes 145 Memori a 0.145 MG 6-24 microgram l Oral 19:41: = 1 cap, Ricardo Capsule 00 PO, Daily, [Linzess] 30 minutes prior to the first meal of the day, # 30 cap, 0 Refill(s) Famotidine No 0 Memoria 40 MG Oral 6-24 Refill(s) l Tablet 19:41: linaclotide Yes 145 Memori a 0.145 MG 6-24 microgram l Oral 19:41: = 1 cap, [place] Capsule 00 PO, Daily, [Linzess] 30 minutes prior to the first meal of the day, # 30 cap, 0 Refill(s) Famotidine No 0 Memoria 40 MG Oral 6-24 Refill(s) l Tablet 19:: linaclotide Yes 145 Memori a 0.145 MG 6-24 microgram l Oral 19:41: = 1 cap, Ricardo Capsule 00 PO, Daily, [Linzess] 30 minutes prior to the first meal of the day, # 30 cap, 0 Refill(s) 24 HR Yes 200 mg = 1 Memori a topiramate 5-11 cap, PO, l 200 MG 21:45: Daily, # [place] Extended 00 90 cap, 2 Release Refill(s), Capsule Pharmacy: [[facility], 167.64, cm, 04/19/20 14:37:00 [employer], Height, 87.273, kg, 08/29/20 16:36:00 CDT, Weight 24 HR Yes 200 mg = 1 Memori a topiramate 5-11 cap, PO, l 200 MG 21:45: Daily, # Ricardo Extended 00 90 cap, 2 Release Refill(s), Capsule Pharmacy: [[facility]] [facility], 167.64, cm, 04/19/20 14:37:00 [employer], Height, 87.273, kg, 08/29/20 16:36:00 CDT, Weight 24 HR 2020-0 Yes 200 mg = 1 Memori a topiramate 5-11 cap, PO, l 200 MG 21:45: Daily, # Ricardo Extended 00 90 cap, 2 Release Refill(s), Capsule Pharmacy: [[facility]] [facility], 167.64, cm, 04/19/20 14:37:00 [employer], Height, 87.273, kg, 08/29/20 16:36:00 CDT, Weight 24 HR 2020-0 Yes 200 mg = 1 Memori a topiramate 5-11 cap, PO, l 200 MG 21:45: Daily, # Ricardo Extended 00 90 cap, 2 Release Refill(s), Capsule Pharmacy: [[facility]] [facility], 167.64, cm, 04/19/20 14:37:00 [employer], Height, 87.273, kg, 08/29/20 16:36:00 CDT, Weight apixaban 5 2020-0 Yes 5 mg, PO, Me moria MG Oral 5-11 Q12H, # 60 l Tablet 21:43: tab, 0 Ricardo [Eliquis] 00 Refill(s), Pharmacy: [facility], 167.64, cm, 04/19/20 14:37:00 [employer], Height, 87.273, kg, 08/29/20 16:36:00 CDT, Weight apixaban 5 1-0 Yes 5 mg, PO, Me moria MG Oral 5-11 Q12H, # 60 l Tablet 21:43: tab, 0 Ricardo [Eliquis] 00 Refill(s), Pharmacy: [facility], 167.64, cm, 04/19/20 14:37:00 [employer], Height, 87.273, kg, 08/29/20 16:36:00 CDT, Weight apixaban 5 1-0 Yes 5 mg, PO, Me moria MG Oral 5-11 Q12H, # 60 l Tablet 21:43: tab, 0 Ricardo [Eliquis] 00 Refill(s), Pharmacy: [facility], 167.64, cm, 04/19/20 14:37:00 [employer], Height, 87.273, kg, 08/29/20 16:36:00 CDT, Weight apixaban 5 2020-0 Yes 5 mg, PO, Me moria MG Oral 5-11 Q12H, # 60 l Tablet 21:43: tab, 0 [place] [Eliquis] 00 Refill(s), Pharmacy: [facility], 167.64, cm, 04/19/20 14:37:00 [employer], Height, 87.273, kg, 08/29/20 16:36:00 CDT, Weight levothyroxi 2020-0 Yes 50 Memori a ne 50 mcg 5-11 microgram l (0.05 mg) 21:41: = 1 tab, Herm zay oral tablet 00 PO, Daily, # 30 tab, 0 Refill(s) levothyroxi 2020-0 Yes 50 Memori a ne 50 mcg 5-11 microgram l (0.05 mg) 21:41: = 1 tab, Herm zay oral tablet 00 PO, Daily, # 30 tab, 0 Refill(s) levothyroxi 2020-0 Yes 50 Memori a ne 50 mcg 5-11 microgram l (0.05 mg) 21:41: = 1 tab, Herm zay oral tablet 00 PO, Daily, # 30 tab, 0 Refill(s) levothyroxi 2020-0 Yes 50 Memori a ne 50 mcg 5-11 microgram l (0.05 mg) 21:41: = 1 tab, Herm zay oral tablet 00 PO, Daily, # 30 tab, 0 Refill(s) acetaminoph 2020-0 Yes 500mg Q6H Take 500 M ethodi en (Tylenol 2-[address] Extra 18:53: mouth Hospita Strength) 53 every 6 l 500 MG (six) tablet hours as needed for mild pain. topiramate 2020-0 Yes 100mg QD Take 100 Me thodi (Trokendi 2-[address] XR) 100 mg 18:53: mouth Hospit a capsule,ext 53 nightly. l ended release 24hr lisdexamfet 2020-0 Yes 50mg QD Take 50 mg Methodi amine 2-[address] (Vyvanse) 18:53: every Hospita 50 MG 53 morning. l capsule famotidine Yes 20mg QD Take 20 mg M ethodi (PEPCID) 20 2-[address] MG tablet 18:53: daily. Hospit a 53 l montelukast Yes 10mg QD Take 10 mg Methodi (SINGULAIR) 2-[address] 10 mg 18:53: daily. Hospita tablet 53 l 24 HR 2019-04 Yes 100 mg = 1 Memori a topiramate 2-30 cap, PO, l 100 MG 21:09: Bedtime, # Rupal nn Extended 00 90 cap, 2 Release Refill(s), Capsule Pharmacy: [[facility] #[id number], 167.64, cm, 04/19/20 14:37:00 [employer], Height, 104.545, kg, 04/19/20 14:37:00 [employer], Weight 24 HR 2019-04 Yes 100 mg = 1 Memori a topiramate 2-30 cap, PO, l 100 MG 21:09: Bedtime, # Rupal nn Extended 00 90 cap, 2 Release Refill(s), Capsule Pharmacy: [[facility] #[id number], 167.64, cm, 04/19/20 14:37:00 [employer], Height, 104.545, kg, 04/19/20 14:37:00 [employer], Weight 24 HR 2019-04 Yes 100 mg = 1 Memori a topiramate 2-30 cap, PO, l 100 MG 21:09: Bedtime, # Rupal nn Extended 00 90 cap, 2 Release Refill(s), Capsule Pharmacy: [[facility] #[id number], 167.64, cm, 04/19/20 14:37:00 [employer], Height, 104.545, kg, 04/19/20 14:37:00 [employer], Weight 24 HR 2019-04 Yes 100 mg = 1 Memori a topiramate 2-30 cap, PO, l 100 MG 21:09: Bedtime, # Rupal nn Extended 00 90 cap, 2 Release Refill(s), Capsule Pharmacy: [[facility] #[id number], 167.64, cm, 04/19/20 14:37:00 [employer], Height, 104.545, kg, 04/19/20 14:37:00 [employer], Weight Famotidine 2019-04 Yes 40 mg, PO, M emoria 2-30 Daily, # l 20:40: 60 tab, 0 Refill(s) Nulev 2019-04 Yes 0.125 mg, Memoria 2-30 PO, QID, 0 l 20:40: Refill(s) Famotidine 2019-04 Yes 40 mg, PO, M emoria 2-30 Daily, # l 20:40: 60 tab, 0 Refill(s) Nulev 2019-04 Yes 0.125 mg, Memoria 2-30 PO, QID, 0 l 20:40: Refill(s) Famotidine 2019-04 Yes 40 mg, PO, M emoria 2-30 Daily, # l 20:40: 60 tab, 0 Refill(s) Nulev 2019-04 Yes 0.125 mg, Memoria 2-30 PO, QID, 0 l 20:40: Refill(s) Famotidine 2019-04 Yes 40 mg, PO, M emoria 2-30 Daily, # l 20:40: 60 tab, 0 Refill(s) Nulev 2019-04 Yes 0.125 mg, Memoria 2-30 PO, QID, 0 l 20:40: Refill(s) Reglan 2019-04 Yes 0 Memoria 1-10 Refill(s) l 18:04: Reglan 2019-04 Yes 0 Memoria 1-10 Refill(s) l 18:04: Reglan 2019-04 Yes 0 Memoria 1-10 Refill(s) l 18:04: Reglan 2019-04 Yes 0 Memoria 1-10 Refill(s) l 18:04: metoclopram 2019-04 1{tbl} Take 1 M ethodi dung HCl [address] (REGLAN 00:00: 00:00 mouth as Hospi ta ORAL) 00 :00 needed. l omeprazole 2019-04 20mg QD Take 1 Meth tanvi OTC 03-18 tablet (20 st (PriLOSEC 00:00: 05:59 mg total) Ho spita OTC) 20 MG 00 :00 by mouth l EC tablet daily for 30 days. metoclopram 2019-04 No 5mg [id number] Take 1 Methodi dung 0-28 02-21 [id number] tablet (5 st (Reglan) 5 00:00: 05:59 3D mg total) H ospita MG tablet 00 :00 by mouth 3 l (three) times a day as needed (nausea, vomiting) for up to 5 days. lisdexamfet 2019-04 40mg QD Take 40 mg Methodi amine 0-26 -[address] (VYVANSE) 18:16: 00:00 daily. Hospi ta 40 MG 29 :00 (per l capsule patient, stopped taking it last week - unknown reason); [facility] 12[facility]18[facility]19, quantity: 30, day supply: 30) topiramate 2019-04 No 1{capsu QD Take 1 M ethodi (Trokendi 0-20 10-20 le} capsule by st XR) 100 mg 23:40: 00:00 mouth Hospi ta capsule,ext 28 :00 daily. l ended (Patient release stopped 24hr taking this medication in the summer because she ran out of it) OXCARBAZEPI 2019-04 (Patient M ethodi NE ORAL 0-20 10-[address] 23:40: 00:00 taking Hospita 28 :00 this l medication in the summer because she ran out of it) atropine 1 2019-04 1[drp] Q.5D Administer Methodi % 0-20 10-[address] ophthalmic 23:40: 00:00 the right H ospita solution 28 :00 eye 2 l (two) times a day. (start date: ~3 weeks ago - per patient) metoclopram 2019-04 No 5mg [id number] Take 1 Methodi dung 0-20 02-15 [id number] tablet (5 st (Reglan) 5 00:00: 00:00 3D mg total) H ospita MG tablet 00 :00 by mouth 3 l (three) times a day as needed (nausea, vomiting) for up to 5 days. Vyvanse Vyvanse 2019-0 Yes Na Savage [address] [facility] Yes 300 mg = 1 Memoria ne 300 MG 9-06 tab, PO, l Oral Tablet 16:04: BID, # 180 [place] [Trileptal] 19 tab, 3 Refill(s), Pharmacy: [facility] #[id number] oxcarbazepi Yes 300 mg = 1 Memoria ne 300 MG 9-06 tab, PO, l Oral Tablet 16:04: BID, # 180 [place] [Trileptal] 19 tab, 3 Refill(s), Pharmacy: [facility] #[id number] oxcarbazepi Yes 300 mg = 1 Memoria ne 300 MG 9-06 tab, PO, l Oral Tablet 16:04: BID, # 180 Ricardo [Trileptal] 19 tab, 3 Refill(s), Pharmacy: [facility] #[id number] oxcarbazepi Yes 300 mg = 1 Memoria ne 300 MG 9-06 tab, PO, l Oral Tablet 16:04: BID, # 180 Ricardo [Trileptal] 19 tab, 3 Refill(s), Pharmacy: [facility] [employer] [facility] #[id number] Yes 100 mg = 1 Memori a topiramate 9-06 cap, PO, l 100 MG 16:04: Daily, # [place] Extended 10 90 cap, 3 Release Refill(s), Capsule Pharmacy: [[facility] [employer] [facility] #[id number] HR Yes 100 mg = 1 Memori a topiramate 9-06 cap, PO, l 100 MG 16:04: Daily, # [place] Extended 10 90 cap, 3 Release Refill(s), Capsule Pharmacy: [[facility] #[id number] HR Yes 100 mg = 1 Memori a topiramate 9-06 cap, PO, l 100 MG 16:04: Daily, # Ricardo Extended 10 90 cap, 3 Release Refill(s), Capsule Pharmacy: [[facility] #[id number] Yes 100 mg = 1 Memori a topiramate 9-06 cap, PO, l 100 MG 16:04: Daily, # [place] Extended 10 90 cap, 3 Release Refill(s), Capsule Pharmacy: [[facility]] [facility] #[id number] No 100 mg = 1 Memori a topiramate 9-04 cap, PO, l 100 MG 18:31: Daily, X [place] Extended 30 day, # Release 30 cap, 3 Capsule Refill(s), [Tro[facility]endi] Pharmacy: [facility] No 100 mg = 1 Memori a topiramate 9-04 cap, PO, l 100 MG 18:31: Daily, X Ricardo Extended 30 day, # Release 30 cap, 3 Capsule Refill(s), [Trokendi] Pharmacy: [facility] No 100 mg = 1 Memori a topiramate 9-04 cap, PO, l 100 MG 18:31: Daily, X [place] Extended 30 day, # Release 30 cap, 3 Capsule Refill(s), [[facility]ro[facility]] Pharmacy: [facility] No 100 mg = 1 Memori a topiramate 9-04 cap, PO, l 100 MG 18:31: Daily, X [place] Extended 30 day, # Release 30 cap, 3 Capsule Refill(s), [[facility]ro[facility]endi] Pharmacy: [facility] oxcarbazepi No 300 mg = 1 Memoria ne 300 MG 9-04 tab, PO, l Oral Tablet 18:31: BID, X 30 H ermann [Trileptal] 02 day, # 60 tab, 3 Refill(s), Pharmacy: [facility] oxcarbazepi No 300 mg = 1 Memoria ne 300 MG 9-04 tab, PO, l Oral Tablet 18:31: BID, X 30 H ermann [Trileptal] 02 day, # 60 tab, 3 Refill(s), [facility] mg = 1 Memoria ne 300 MG 9-04 tab, PO, l Oral Tablet 18:31: BID, X 30 H ermann [Trileptal] 02 day, # 60 tab, 3 Refill(s), Pharmacy: [facility] oxcarbazepi No 300 mg = 1 Memoria ne 300 MG 9-04 tab, PO, l Oral Tablet 18:31: BID, X 30 H ermann [Trileptal] 02 day, # 60 tab, 3 Refill(s), Pharmacy: [facility] lisdexamfet Yes 30 mg = 1 M emoria amine 8-09 cap, PO, l dimesylate 16:20: QAM, # 30 He rmann 30 MG Oral 00 cap, 0 Capsule Refill(s) [Vyvanse] lisdexamfet Yes 30 mg = 1 M emoria amine 8-09 cap, PO, l dimesylate 16:20: QAM, # 30 He rmann 30 MG Oral 00 cap, 0 Capsule Refill(s) [Vyvanse] lisdexamfet Yes 30 mg = 1 M emoria amine 8-09 cap, PO, l dimesylate 16:20: QAM, # 30 He rmann 30 MG Oral 00 cap, 0 Capsule Refill(s) [Vyvanse] lisdexamfet Yes 30 mg = 1 M emoria amine 8-09 cap, PO, l dimesylate 16:20: QAM, # 30 He rmann 30 MG Oral 00 cap, 0 Capsule Refill(s) [Vyvanse] omeprazole Yes 20 mg = 1 Me moria 20 mg oral 7-17 cap, PO, l delayed 00:27: Daily, # Murray n release 00 30 cap, 2 capsule Refill(s), Pharmacy: [facility] omeprazole Yes 20 mg = 1 Me moria 20 mg oral 7-17 cap, PO, l delayed 00:27: Daily, # Murray n release 00 30 cap, 2 capsule Refill(s), Pharmacy: [facility] omeprazole Yes 20 mg = 1 Me moria 20 mg oral 7-17 cap, PO, l delayed 00:27: Daily, # Murray n release 00 30 cap, 2 capsule Refill(s), Pharmacy: [facility] omeprazole Yes 20 mg = 1 Me moria 20 mg oral 7-17 cap, PO, l delayed 00:27: Daily, # Murray n release 00 30 cap, 2 capsule Refill(s), [facility] Yes 300 mg = 1 Memoria ne 300 MG 7-03 tab, PO, l Oral Tablet 18:01: BID, # 60 H ermann [Trileptal] 00 tab, 2 Refill(s), [facility] mg = 1 Memoria ne 300 MG 7-03 tab, PO, l Oral Tablet 18:01: BID, # 60 H ermann [Trileptal] 00 tab, 2 Refill(s), [facility] Yes 300 mg = 1 Memoria ne 300 MG 7-03 tab, PO, l Oral Tablet 18:01: BID, # 60 H ermann [Trileptal] 00 tab, 2 Refill(s), [facility] Yes 300 mg = 1 Memoria ne 300 MG 7-03 tab, PO, l Oral Tablet 18:01: BID, # 60 H ermann [Trileptal] 00 tab, 2 Refill(s), Pharmacy: [facility] Yes 100 mg = 1 Memori a topiramate 6-28 cap, PO, l 100 MG 14:50: Daily, # [place] Extended 00 30 cap, 3 Release Refill(s), Capsule Pharmacy: [[facility]] [facility] Yes 100 mg = 1 Memori a topiramate 6-28 cap, PO, l 100 MG 14:50: Daily, # Ricardo Extended 00 30 cap, 3 Release Refill(s), Capsule Pharmacy: [[facility]] [facility] Yes 100 mg = 1 Memori a topiramate 6-28 cap, PO, l 100 MG 14:50: Daily, # [place] Extended 00 30 cap, 3 Release Refill(s), Capsule Pharmacy: [[facility]] [facility] Yes 100 mg = 1 Memori a topiramate 6-28 cap, PO, l 100 MG 14:50: Daily, # Ricardo Extended 00 30 cap, 3 Release Refill(s), Capsule Pharmacy: [[facility]] [facility] topiramate Yes 25 mg = 1 Me moria 25 MG Oral 6-14 tab, PO, l Tablet 23:33: BID, # 60 Murray n [Topamax] 00 tab, 2 Refill(s), Pharmacy: [facility] topiramate Yes 25 mg = 1 Me moria 25 MG Oral 6-14 tab, PO, l Tablet 23:33: BID, # 60 Murray n [Topamax] 00 tab, 2 Refill(s), Pharmacy: [facility] topiramate Yes 25 mg = 1 Me moria 25 MG Oral 6-14 tab, PO, l Tablet 23:33: BID, # 60 Murray n [Topamax] 00 tab, 2 Refill(s), Pharmacy: [facility] topiramate Yes 25 mg = 1 Me moria 25 MG Oral 6-14 tab, PO, l Tablet 23:33: BID, # 60 Murray n [Topamax] 00 tab, 2 Refill(s), Pharmacy: [facility] Phenytoin Yes 200 mg = 2 Me moria sodium 100 6-13 cap, PO, l MG Extended 13:57: BID, # 120 [place] Release 00 cap, 3 Capsule Refill(s), [Dilantin] Pharmacy: [facility] Phenytoin Yes 200 mg = 2 Me moria sodium 100 6-13 cap, PO, l MG Extended 13:57: BID, # 120 [place] Release 00 cap, 3 Capsule Refill(s), [Dilantin] Pharmacy: [facility] Phenytoin Yes 200 mg = 2 Me moria sodium 100 6-13 cap, PO, l MG Extended 13:57: BID, # 120 Ricardo Release 00 cap, 3 Capsule Refill(s), [Dilantin] Pharmacy: [facility] Phenytoin Yes 200 mg = 2 Me moria sodium 100 6-13 cap, PO, l MG Extended 13:57: BID, # 120 [place] Release 00 cap, 3 Capsule Refill(s), [Dilantin] Pharmacy: [facility] [place] Alprazolam 2019-0 Yes 0.5 mg = 1 M emoria 0.5 MG Oral 6-13 tab, PO, l Tablet 13:28: TID, 0 Ricardo [Xanax] 00 Refill(s) Zyrtec 2019-0 Yes Daily, 0 Memoria 6-13 Refill(s) l 13:28: Ricardo 00 Alprazolam 2019-0 Yes 0.5 mg = 1 M emoria 0.5 MG Oral 6-13 tab, PO, l Tablet 13:28: TID, 0 [place] [Xanax] 00 Refill(s) Zyrtec 2019-0 Yes Daily, 0 Memoria 6-13 Refill(s) l 13:28: [place] 00 Alprazolam 2019-0 Yes 0.5 mg = 1 M emoria 0.5 MG Oral 6-13 tab, PO, l Tablet 13:28: TID, 0 Ricardo [Xanax] 00 Refill(s) Zyrtec 2019-0 Yes Daily, 0 Memoria 6-13 Refill(s) l 13:28: Ricardo 00 Alprazolam 2019-0 Yes 0.5 mg = 1 M emoria 0.5 MG Oral 6-13 tab, PO, l Tablet 13:28: TID, 0 [place] [Xanax] 00 Refill(s) Zyrtec 2019-0 Yes Daily, 0 Memoria 6-13 Refill(s) l 13:28: Ricardo 00 Phenytoin 20190 No 100 mg = 1 Me moria sodium 100 6-13 cap, PO, l MG Extended 13:26: TID, # 90 H [place] Release 00 cap, 1 Capsule Refill(s) [Dilantin] Phenytoin 0 No 100 mg = 1 Me moria sodium 100 6-13 cap, PO, l MG Extended 13:26: TID, # 90 H ermann Release 00 cap, 1 Capsule Refill(s) [Dilantin] Phenytoin 0 No 100 mg = 1 Me moria sodium 100 6-13 cap, PO, l MG Extended 13:26: TID, # 90 H ermann Release 00 cap, 1 Capsule Refill(s) [Dilantin] Phenytoin No 100 mg = 1 Me moria sodium 100 6-13 cap, PO, l MG Extended 13:26: TID, # 90 H ermann Release 00 cap, 1 Capsule Refill(s) [Dilantin] VYVANSE 40 Yes 1{tbl} Take 1 MD mg capsule 9-19 tablet by Nadrea rso 00:00: mouth n 00 daily. Immunizations Ordered Immunization Filled Immunization Date Status Commen ts Source Name Name Fozia 2020-06-10 Completed Sikh 00:00:00 [facility] FLUCELVAX QUAD PF 2020-02-[address] 00:00:00 [facility] Influenza Split Completed MD Charles on 00:00:00 Vital Signs Vital Name Observation Time Observation Value Comments Source Height 2020-10-12 19:27:00 167.64 cm [facility] Weight 2020-10-12 19:27:00 [facility] BMI Calculated 2020-10-12 [facility]:27[facility] [place] Systolic (mm Hg) 2020-10-12 19:27:00 Unruly rial [place] Diastolic (mm Hg) 2020-10-12 19:27:00 [facility] orial [place] Heart Rate 2020-10-12 19:27:00 [facility] Respitory Rate 2020-10-12 19:27:00 [facility] [place] Weight 2020-08-29 21:36:00 [facility] Oxygen saturation in 2020-06-10 20:17:19 98 /min [facility] Arterial blood by Pulse oximetry Systolic blood 2020-06-10 20:17:19 128 mm[Hg] [facility] pressure Diastolic blood 2020-06-10 20:17:19 68 mm[Hg] [facility] pressure Heart rate 2020-06-10 20:17:19 88 /min [facility] Body temperature 2020-06-10 20:17:19 36.11 Staci [facility] Respiratory rate 2020-06-10 20:17:19 16 /min [facility] Body height 2020-06-10 18:48:00 167.6 cm [facility] Body weight 2020-06-10 18:48:00 94.802 kg [facility] BMI 2020-06-10 18:48:00 33.73 kg/m2 [facility] Systolic (mm Hg) 2020-04-19 20:08:00 Unruly rial Ricardo Diastolic (mm Hg) 2020-04-19 20:08:00 Mem orial [place] Heart Rate 2020-04-19 20:08:00 [facility] [place] Respitory Rate 2020-04-19 20:08:00 Memori al Ricardo Height 2020-04-19 20:08:00 167.64 cm [facility] Ricardo Weight 2020-04-19 20:08:00 [facility] [place] BMI Calculated 2020-04-19 20:08:00 Memori al [place] Systolic (mm Hg) 2020-03-29 20:19:00 Unruly rial Ricardo Diastolic (mm Hg) 2020-03-29 20:19:00 Mem orial Ricardo Heart Rate 2020-03-29 20:19:00 [facility] Ricardo Respitory Rate 2020-03-29 20:19:00 Memori al [place] Height 2020-03-29 20:19:00 167.64 cm [facility] Ricardo Weight 2020-03-29 20:19:00 [facility] [place] BMI Calculated 2020-03-29 20:19:00 Memori al [place] Systolic (mm Hg) 2020-02-29 17:31:00 Unruly rial [place] Diastolic (mm Hg) 2020-02-29 17:31:00 Mem orial Ricardo Heart Rate 2020-02-29 17:31:00 [facility] [place] Respitory Rate 2020-02-29 17:31:00 Memori al [place]ardo Height 2020-02-29 17:31:00 167.64 cm [facility] [place] Weight 2020-02-29 17:31:00 [facility] [place] BMI Calculated 2020-02-29 17:31:00 Memori al [place]ardo Systolic (mm Hg) 2018-12-23 18:03:00 Unruly rial [place] Diastolic (mm Hg) 2018-12-23 18:03:00 Mem orial Ricardo Heart Rate 2018-12-23 18:03:00 [facility] [place] Respitory Rate 2018-12-23 18:03:00 Memori al [place] Height 2018-12-23 18:03:00 167.64 cm [facility] [place] Weight 2018-12-23 18:03:00 [facility] [place]ardo BMI Calculated 2018-12-23 18:03:00 Memori al [place] BMI Calculated 2018-11-27 15:59:00 Memori al [place] Weight 2018-11-27 15:59:00 [facility] Ricardo Height 2018-11-27 15:59:00 167.64 cm [facility] [place] Heart Rate 2018-11-27 15:59:00 [facility] Ricardo Respitory Rate 2018-11-27 15:59:00 Memori al [place] Systolic (mm Hg) 2018-11-27 15:59:00 Unruly rial Ricardo Diastolic (mm Hg) 2018-11-27 15:59:00 Mem orial Ricardo BMI Calculated 2018-10-16 14:19:00 Memori al [place]ardo Weight 2018-10-16 14:19:00 [facility] Ricardo Height 2018-10-16 14:19:00 167.64 cm [facility] [place] Heart Rate 2018-10-16 14:19:00 [facility] Ricardo Respitory Rate 2018-10-16 14:19:00 Memori al [place] Systolic (mm Hg) 2018-10-16 14:19:00 Unruly rial Ricardo Diastolic (mm Hg) 2018-10-16 14:19:00 Mem orial Ricardo BMI Calculated 2018-10-01 13:18:00 Memori al [place] Weight 2018-10-01 13:18:00 [facility] Ricardo Height 2018-10-01 13:18:00 167.64 cm [facility] Ricardo Respitory Rate 2018-10-01 13:18:00 Memori al Ricardo Heart Rate 2018-10-01 13:18:00 [facility] [place] Systolic (mm Hg) 2018-10-01 13:18:00 Unruly rial [place] Diastolic (mm Hg) 2018-10-01 13:18:00 Mem orial [place] Procedures Procedure Date / Time Performing Clinician Source Performed MRI THORACIC SPINE W 2020-06-06 22:01:00 Caleb Kent [facility] CONTRAST MRI CERVICAL SPINE W 2020-06-06 22:01:00 Caleb Kent [facility] CONTRAST MRI BRAIN W WO CONTRAST 2020-06-06 22:00:00 Caleb Kent [facility] C-REACTIVE PROTEIN 2020-06-06 18:12:00 Jen Tsai [facility] Natvarlal INTERLEUKIN 6 2020-06-06 18:12:00 [facility] Nat[facility]lal FERRITIN LEVEL 2020-06-06 18:12:00 [facility] Natvarlal D-DIMER 2020-06-06 18:12:00 Eulalio [facility] ospital Natvarlal LDH 2020-06-06 18:12:00 [facility]ital Natvarlal FIBRINOGEN 2020-06-06 18:12:00 [facility] ospital Natvarlal CT CHEST WO CONTRAST 2020-06-06 18:03:12 [facility] URINE CULTURE 2020-06-04 13:58:00 Kanchan Downey [facility] spital URINALYSIS SCREEN AND 2020-06-04 13:58:00 [facility] MICROSCOPY, WITH REFLEX TO CULTURE HCG QUALITATIVE, URINE 2020-06-04 13:58:00 [facility] SCREEN COVID-19 QUALITATIVE 2020-06-04 13:45:00 [facility] RT-PCR HC COMPLETE BLD COUNT 2020-06-04 08:45:00 [facility] W/AUTO DIFF Imarendene COMPREHENSIVE METABOLIC 2020-06-04 07:56:00 [facility] PANEL Imarendenewe ESTIMATED GFR 2020-06-04 07:56:00 [facility] OCT, OPTIC NERVE - OU - 2020-03-08 19:34:42 Tung [facility] BOTH EYES AUTOMATED VISUAL FIELD, 2020-03-08 19:34:38 Tung [facility] EXTENDED - OU - BOTH EYES DURABLE MEDICAL EQUIPMENT 2020-02-16 15:31:42 [facility] BASIC METABOLIC PANEL 2020-02-16 10:10:[address] [facility] [place] ESTIMATED GFR 2020-02-16 10:10:00 AbbyBlessing [facility] Toni DURABLE MEDICAL EQUIPMENT 2020-02-15 20:56:49 Caleb Roque [facility] EMG 2020-02-15 17:46:48 Lester [facility] Ahmed HC COMPLETE BLD COUNT 2020-02-15 10:00:[facility] BASIC METABOLIC PANEL 2020-02-15 10:00:00 [facility] ESTIM[facility] GFR 2020-02-15 10:00:00 Shira Benedict Ho spital VISUAL EVOKED POTENTIALS 2020-02-14 16:52:23 Dora Montalvo [facility] (VEP) HC COMPLETE BLD COUNT 2020-02-14 09:15:00 [facility] W/AUTO DIFF BASIC METABOLIC PANEL 2020-02-14 09:15:00 [facility] ESTIM[facility]FR 2020-02-14 09:15:00 Shira Benedict Ho spital MRI LUMBAR SPINE W WO 2020-02-13 15:28:12 [facility] BRAIN VENOGRAM 2020-02-13 14:47:24 [facility] COMPLETE [facility]LD COUNT 2020-02-13 09:05:00 [facility] W/AUTO DIFF BASIC METABOLIC PANEL 2020-02-13 09:00:00 [facility] ESTIMATED GFR 2020-02-13 09:00:00 Shira Benedict [facility] spital HC COMPLETE BLD COUNT 2020-02-12 15:18:00 [facility] W/AUTO DIFF BASIC METABOLIC PANEL 2020-02-12 13:00:00 [facility] ESTIMATED GFR 2020-02-12 13:00:00 OnShira smith Ho spital VENIPUNC NEED PHYS 2020-02-08 15:39:11 Familia Colon [facility] SKILL,DX OR RX MISCELLANEOUS REFERRAL 2020-02-08 14:00:00 Evens Horne [facility] TEST Marck US DUPLEX VENOUS UPPER 2020-02-07 22:26:50 Varsha [facility] EXTREMITY RIGHT VENIPUNC NEED PHYS 2020-02-07 14:18:07 Javier Kolb [facility] SKILL,DX OR RX HC COMPLETE BLD COUNT 2020-02-07 10:00:00 Varsha [facility] W/AUTO DIFF BASIC METABOLIC PANEL 2020-02-07 10:00:00 Varsha, [facility] ESTIMATED GFR 2020-02-07 10:00:00 [facility] HC COMPLETE BLD COUNT 2020-02-06 11:18:00 [facility] W/AUTO DIFF BASIC METABOLIC PANEL 2020-02-06 11:18:00 Varsha [facility] ESTIMATED GFR 2020-02-06 11:18:00 Varsha [facility] XR CHEST 1 VW PORTABLE 2020-02-06 02:27:51 Varsha [facility] ECG 12-LEAD 2020-02-06 02:12:53 [facility] HC COMPLETE BLD COUNT 2020-02-05 11:00:00 [facility] W/AUTO DIFF BASIC METABOLIC PANEL 2020-02-05 09:00:00 [facility] ESTIMATED GFR 2020-02-05 09:00:00 [facility] IGG SYNTHESIS RATE STUDY 2020-02-04 16:00:00 [facility] FUNGUS CULTURE 2020-02-04 15:56:00 [facility] AFB CULTURE 2020-02-04 15:56:00 [facility] IR LUMBAR PUNCTURE 2020-02-04 15:00:00 [facility] CSF CULTURE 2020-02-04 14:56:00 [facility] CRYPTOCOCCAL ANTIGEN 2020-02-04 14:56:00 [facility] SCREEN GRAM STAIN 2020-02-04 14:56:00 [facility] CSF CELL COUNT WITH 2020-02-04 14:56:00 [facility] DIFFERENTIAL GLUCOSE LEVEL, CSF 2020-02-04 14:56:00 [facility] IGG SYNTHESIS RATE STUDY 2020-02-04 14:56:00 [facility] VDRL, CSF 2020-02-04 14:56:00 [facility] LYME DISEASE REFLEXIVE 2020-02-04 14:56:00 [facility] PANEL, CSF CYTOMEGALOVIRUS BY PCR 2020-02-04 14:56:00 [facility] KAIDEN NOBLE VIRUS (EBV) 2020-02-04 14:56:00 [facility] BY PCR ENTEROVIRUS BY PCR 2020-02-04 14:56:00 [facility] HERPES SIMPLEX VIRUS BY 2020-02-04 14:56:00 [facility] PCR FLOW CYTOMETRY EVALUATION 2020-02-04 14:56:00 [facility] [place] VIRUS ANTIBODY 2020-02-04 14:56:00 [facility] PANEL, CSF ANGIOTENSIN CONVERTING 2020-02-04 14:56:00 [facility] ENZYME, CSF OLIGOCLONAL BANDING, CSF 2020-02-04 14:56:00 Paola [facility] MISCELLANEOUS REFERRAL 2020-02-04 14:56:00 [facility] TEST EEG AWAKE/ASLEEP LESS 2020-02-04 12:19:32 [facility] THAN 41 MIN ECG 12-LEAD 2020-02-04 09:50:41 Manan Hernández [facility] BLOOD CULTURE, AEROBIC & 2020-02-04 06:50:00 [facility], AEROBIC & 2020-02-04 06:40:00 [facility] ANAEROBIC MISCELLANEOUS REFERRAL 2020-02-04 06:40:00 Manan Hern[facility]dez [facility] TEST HC COMPLETE BLD COUNT 2020-02-04 06:40:00 [facility] W/AUTO DIFF BASIC METABOLIC PANEL 2020-02-04 06:40:00 [facility] ESTIMATED GFR 2020-02-04 06:40:00 [facility] URINE CULTURE 2020-02-04 05:56:00 [facility] URINALYSIS SCREEN AND 2020-02-04 05:56:00 Manan Hernández [facility] MICROSCOPY, WITH REFLEX TO CULTURE URINE DRUGS OF ABUSE 2020-02-04 05:56:00 Manan Hernández [facility] SCREEN COVID-19 QUALITATIVE 2020-02-04 04:41:00 Kim Guevara [facility] RT-PCR MRI BRAIN & ORBIT W WO 2020-02-04 03:12:00 Manan Hernández [facility] CONTRAST MRI CERVICAL SPINE W 2020-02-04 03:12:00 Manan Hernández Met [facility] CONTRAST MRI THORACIC SPINE W 2020-02-04 03:12:00 Manan Hernández [facility] CONTRAST CYTOLOGY 2020-02-04 01:17:00 [facility] REQUEST COMPREHENSIVE METABOLIC 2020-02-03 23:35:00 [place] [facility] PANEL ESTIMATED GFR 2020-02-03 23:35:00 Kim Guevara [facility] HC COMPLETE BLD COUNT 2020-02-03 23:25:00 Manan Hernández [facility] W/AUTO DIFF ELMER 2020-02-03 23:25:00 [place] Manan [facility] FOLATE LEVEL 2020-02-03 23:25:00 [place] [facility] VITAMIN B12 LEVEL 2020-02-03 23:25:00 [facility] C-REACTIVE PROTEIN 2020-02-03 23:25:00 [facility] HOMOCYSTINE, PLASMA 2020-02-03 23:25:00 [facility] CORTISOL LEVEL, RANDOM 2020-02-03 23:25:00 [facility] SEDIMENTATION RATE 2020-02-03 23:25:00 [facility] RHEUMATOID FACTOR 2020-02-03 23:25:00 [facility] THYROID STIMULATING 2020-02-03 23:25:00 [facility] HORMONE T4, FREE 2020-02-03 23:25:00 [facility] T3 2020-02-03 23:25:00 [facility] SYPHILIS TREPONEMA SCREEN 2020-02-03 23:25:00 [facility] WITH RPR CONFIRMATION (REVERSE ALGORITHM) HIV AG/AB COMBINATION 2020-02-03 23:25:00 [place] [facility] VITAMIN D 25 HYDROXY 2020-02-03 23:25:00 [place] [facility] LEVEL B. BURGDORFERI ABS TOTAL, 2020-02-03 23:25:00 [facility] SERUM CT HEAD WO CONTRAST 2020-02-03 21:14:55 [facility] HCG QUANTITATIVE, SERUM 2020-02-03 19:27:00 [facility] Tubal ligation [facility] Plan of Care Planned Activity Planned Date Details Comments Source Future Scheduled 1998 COVID-19 Vaccination MD Aguirre Test 00:00:00 (1) [code = COVID-19 Vaccination (1)] Future Scheduled COVID-19 VACCINE (1) Met [facility] Test [code = COVID-19 VACCINE (1)] Future Scheduled Hepatitis C screening [facility] Test (procedure) [code = 124218407] Future Scheduled INFLUENZA VACCINE [facility] Test [code = INFLUENZA VACCINE] Future Scheduled Screening for [facility] Test malignant neoplasm of cervix (procedure) [code = 713545765] Encounters Start End Encounter Admission Attending Care Care Encounter Source Date/Time Date/Time Type Type Clinicians Facility Department ID 2020-12-08 2020-12-08 Telephone Harsh, [id number] Methodi 00:00:00 00:00:[id number] 3.430.2.7 Hospit a .3.243162 l .8 2020-12-07 2020-12-07 Orders Soco Savage 1.2.840.1 [id number] Methodi 00:00:00 00:00:[address] 3.430.2.7 Hospit a .[id number] l .8 2020-12-04 2020-12-04 Outpatient STLMLC STLC [id number] [facility]00 Ayanna gutierrez [facility] ent [facility] 2020-12-01 2020-12-01 Ambulatory nullFlavo MNA [id number] Memoria 16:30:00 16:30:00 Pre-Reg r Neurology 16 l Ean Silva 2020-12-01 2020-12-01 Ambulatory nullFlavo MNA [id number] Memoria 16:30:00 16:30:00 Pre-Reg r Neurology 16 l Ean Silva 2020-12-01 2020-12-01 Outpatient GILDA VO [id number] [facility] 11:30:00 11:30:00 16 l Ricardo 2020-12-01 2020-12-01 Outpatient FAY[facility]BINU [id number] 11:30:00 11:30:00 David Acharya 2020-10-27 2020-10-27 Outpatient ROMULO [facility]A [facility] [id number] [facility] 11:43:47 12:34:19 REGINA poon of Medicin e 2020-10-27 2020-10-27 Office ROMULO Mejía [id number] 11:43:47 12:34:19 Visit Regina AMBULATOR 350.1.13.21 Y [id number] [id number] 2020-10-18 2020-10-18 Outpatient [facility]MLC STLC [id number] [facility] 2020-10-13 2020-10-13 Outpatient MHIE MHIE [id number] Memoria 10:30:00 10:30:00 14 matt [place] 2020-10-13 2020-10-13 Outpatient MHIE MHIE [id number] Memoria 10:30:00 10:30:00 14 matt [place] 2020-10-12 2020-10-13 Outpatient nullFlavo MNA [id number] Memoria 19:15:00 04:59:59 r Neurology 15 l Ean [place] 2020-10-12 2020-10-13 Outpatient nullFlavo MNA [id number] Memoria 19:15:00 04:59:59 r Neurology 15 l Ean [place] 2020-10-12 2020-10-12 Outpatient Juliet MHMISCHER MHMISCHER [id number] 14:15:00 23:59:59 David Arsenio Marck 2020-10-12 2020-10-12 Outpatient MHIE MHIE [id number] Memoria 14:15:00 14:15:00 15 matt [place] 2020-10-11 2020-10-11 Ambulatory nullFlavo MNA [id number] Memoria 18:30:00 18:30:00 Pre-Reg r Neurology 14 l Ean [place] 2020-10-11 2020-10-11 Outpatient Juliet MHMISCHER MHMISCHER [id number] 13:30:00 13:30:00 Davidgrayson Acharya 2020-10-11 2020-10-11 Outpatient STLMLC STLMLC [id number] [facility] 2020-09-08 2020-09-08 Office Alfonzo, BCM [id number] 10:12:53 13:09:00 Visit Regina AMBULATOR 350.1.13.21 Suresh Y [id number] [id number] 2020-09-08 2020-09-08 Outpatient STLMLC STLMLC [id number] [facility] 2020-09-07 2020-09-07 Outpatient STLMLC STLMLC [id number] [facility] 2020-09-01 2020-09-01 Outpatient [facility]LMLC STLC [id number] [facility] 2020-08-29 2020-08-30 Outpatient nullFlavo MNA [id number] Memoria 20:45:00 04:59:59 r Neurology 13 l [place] 2020-08-29 2020-08-30 Outpatient nullFlavo MNA [id number] Memoria 20:45:00 04:59:59 r Neurology 13 l [place] 2020-08-29 2020-08-29 Outpatient FAYE ChungMISCHER MISCHER [id number] 15:45:00 23:59:59 David 13 Marck 2020-08-29 2020-08-29 Outpatient MHIE LAURENCE [id number] Memoria 15:45:00 15:45:00 13 l Ricardo 2020-08-28 2020-08-28 Outpatient [facility] [id number] [facility] 2020-08-15 2020-08-15 Outpatient [facility] STLC [id number] [facility] 2020-08-08 2020-08-08 Outpatient [facility] STLC [id number] [facility] 2020-08-08 2020-08-08 Outpatient [facility]LC [id number] [facility] 2020-08-07 2020-08-07 Outpatient [facility]LC [id number] [facility] 2020-07-26 2020-07-26 Outpatient [facility] [id number] [facility] 2020-07-20 2020-07-20 Outpatient STLMLC STLMLC [id number] [facility] 2020-07-10 2020-07-10 Outpatient STLMLC STLMLC [id number] [facility] 2020-07-10 2020-07-10 Outpatient STLMLC STLMLC [id number] [facility] 2020-07-06 2020-07-06 Outpatient STLMLC STLMLC [id number] [facility] 2020-07-04 2020-07-04 Outpatient STLMLC STLMLC [id number] [facility] 2020-06-30 2020-06-30 Outpatient STLMLC STLMLC [id number] [facility] 2020-06-27 2020-06-27 Outpatient STLMLC STLMLC [id number] [facility] 2020-06-20 2020-06-20 Outpatient STLMLC STLMLC [id number] [facility] 2020-06-19 2020-06-19 Outpatient STLMLC STLMLC [id number] [facility] 2020-06-14 2020-06-16 Outside nullFlavo MNA [id number] [facility]oria 21:54:19 05:59:59 Medical r Neurology 01 l Records [place] 2020-06-14 2020-06-16 Outside nullFlavo MNA [id number] [facility] 21:54:19 05:59:59 Medical r Neurology 01 l Records [place] 2020-06-14 2020-06-15 [id number] 15:54:19 23:59:59 2020-06-12 2020-06-12 Outpatient [facility] [id number] [facility]00 [facility] 2020-06-12 2020-06-12 [facility] [id number]00 [facility] 2020-06-10 2020-06-10 Infusion Alhaji, [id number] Methodi 11:41:17 14:59:06 Marques Lobo 52984.1.[address] 3.430.2.7 Hospit a .3.370528 l .8 2020-06-10 2020-06-10 [facility] [id number] [place] [address] 00:00:00 00:00:00 MARQUES Bateman Method i st 2020-06-10 2020-06-10 Travel 1.2.840.1 1.2.346.268 [id number] Methodi 00:00:00 00:00:[address] 3.430.2.7 0.2.7.3.698 Ho spita .3.627766 084.8 l .8 2020-06-10 2020-06-10 Valentina Florian 1.2.840.1 [id number] Methodi 00:00:00 00:00:00 Only Sue 76103.1.[address] 3.430.2.7 Hospit a .3.262372 l .8 2020-06-10 2020-06-10 Chandrakant Florian 1.2.840.1 [id number] Methodi 00:00:00 00:00:[address] 3.430.2.7 Hospit a .3.355300 l .8 2020-06-10 2020-06-10 Valentina Florian 1.2.840.1 [id number] 5152 Methodi 00:00:00 00:00:00 Only Sue 99663.1.1 241 3.430.2.7 Hospit a .3.998673 l .8 2020-06-09 2020-06-09 [id number] 2020-06-09 2020-06-09 Outpatient [facility] [id number] [facility] 2020-06-04 2020-[facility]-07 [facility] 1.2.840.1 [id number] Methodi 00:56:00 14:30:00 Encounter Kanchan Downey 28187.1.1 47 3 [facility] [place], Jen Natvarlal 3.430.2.7 Hospita .3.214015 l .8 2020-06-04 2020-06-07 Inpatient [facility] [id number] [place] [address] 00:00:00 00:00:00 AMITKUMAR 473 Meth taniv 2020-05-31 2020-06-01 Outpatient nullFlavo MNA [id number] Memoria 17:30:00 05:59:59 r Neurology 12 matt [place] 2020-05-31 2020-06-01 Outpatient nullFlavo MNA [id number] Memoria 17:30:00 05:59:59 r Neurology 12 l [place] 2020-05-31 2020-05-31 [facility] [id number] 11:30:00 23:59:59 David Sharan Acharya 2020-05-31 2020-05-31 Ambulatory nullFlavo MNA [id number] Memoria 21:30:00 21:30:00 Pre-Reg r Neurology 11 matt [place] 2020-05-31 2020-05-31 Ambulatory nullFlavo MNA [id number] Memoria 21:30:00 21:30:00 Pre-Reg r Neurology 11 l [place] 2020-05-31 2020-05-31 Outpatient MHIE MHIE [id number] Memoria 15:30:00 15:30:00 11 l Ricardo 2020-05-31 2020-05-31 Outpatient Juliet MHMISCHER MISCHER [id number] 15:30:00 15:30:00 David 11 Marck 2020-05-31 2020-05-31 Outpatient MHIE MHIE [id number] Memoria 11:30:00 11:30:00 12 l Ricardo 2020-04-19 2020-04-20 Outpatient nullFlavo MNA [id number] Memoria 20:00:00 05:59:59 r Neurology 10 l [place] 2020-04-19 2020-04-20 Outpatient nullFlavo MNA [id number] Memoria 20:00:00 05:59:59 r Neurology 10 l [place] 2020-04-19 2020-04-19 Outpatient Juliet MISCHER MISCHER [id number] 14:00:00 23:59:59 David 10 Marck 2020-04-19 2020-04-19 Outpatient MHIE IE [id number] Memoria 14:00:00 14:00:00 10 l [place] 2020-04-18 2020-04-18 Outpatient [facility]ML[facility] [id number] [facility] 2020-04-12 Outpatient nullFlavo MNA [id number] Memoria 16:00:00 05:59:59 r Neurology 09 l [place] 2020-04-11 2020-04-12 Outpatient nullFlavo MNA [id number] [facility] 16:00:00 05:59:59 r Neurology 09 l [place] 2020-04-11 2020-04-11 Outpatient Juliet MHMISCHER MHMISCHER [id number] 10:00:00 23:59:59 David 09 [facility] 2020-04-11 2020-04-11 Outpatient MHIE MHIE [id number] Memoria 10:00:00 10:00:00 09 l Ricardo 2020-03-29 2020-03-30 Outpatient nullFlavo MNA [id number] Memoria 20:00:00 05:59:59 r Neurology 08 l [place] 2020-03-29 2020-03-30 Outpatient nullFlavo MNA [id number] Memoria 20:00:00 05:59:59 r Neurology 08 l Ean Silva 2020-03-29 2020-03-29 Outpatient DEDE [facility] [id number] 14:00:00 23:59:59 David Tammy Acharya 2020-03-29 2020-03-29 Outpatient FAYEIE LAURENCE [id number] Memoria 14:00:00 14:00:00 08 l Ricardo 2020-03-22 2020-03-22 Outpatient [facility] [id number] [facility] 2020-03-16 2020-03-16 [facility] [id number] [facility] 2020-03-08 2020-03-08 Office Chavo Bull 1.2.840.1 [id number] Methodi 12:36:03 16:19:47 Visit Go 22108.1.[address] 3.430.2.7 Hospit a .3.842662 l .8 2020-03-08 2020-03-08 Outpatient CHAVO [facility]ULL [facility] [id number] [place] 00:00:00 00:00:[address] 2020-03-08 2020-03-08 Travel 1.2.840.1 1.2.564.122 [id number] Methodi 00:00:00 00:00:[address] 3.430.2.7 0.2.7.3.698 spita .3.588259 084.8 l .8 2020-03-07 2020-03-07 Outpatient [facility] [id number] [facility] 2020-02-29 2020-03-01 Outpatient nullFlavo MNA [id number] [facility]oria 17:15:00 05:59:59 r Neurology 07 l [place] 2020-02-29 2020-03-01 Outpatient nullFlavo MNA [id number] [facility] 17:15:00 05:59:59 r Neurology 07 l Ean Silva 2020-02-29 2020-02-29 Outpatient FAYE ChungMISCHER MISCHER [id number] 11:15:00 23:59:59 David 07 Marck 2020-02-29 2020-02-29 Outpatient MHIE MHIE [id number] [facility]oria 11:15:00 11:15:00 07 l Ricardo 2020-02-21 2020-02-21 Outpatient [facility] [id number] [facility] 2020-02-17 2020-02-17 Outpatient [facility] [id number] [facility] 00[facility]00 [facility] 2020-02-12 2020-02-16 [facility] 1.2.840.1 [id number] Methodi 07:45:00 12:40:00 Encounter Erica Blessingheidi Muñoz 72485.1.[address] 3.430.2.7 Hospit a .3.338163 l .8 2020-02-12 2020-02-16 Inpatient ERICA [facility] [id number] [place] 00:00:00 00:00:00 BLESSING [address] 2020-02-15 2020-02-15 Ambulatory nullFlavo MNA [id number] Memoria 14:15:00 14:15:00 Pre-Reg r Neurology 06 l Ean Leakey 2020-02-15 2020-02-15 Ambulatory nullFlavo MNA [id number] [facility]oria 14:15:00 14:15:00 Pre-Reg r Neurology 06 l Ean Silva 2020-02-15 2020-02-15 Outpatient MHIE MHIE [id number] Memoria 09:15:00 09:15:00 06 matt Silva 2020-02-15 2020-02-15 Outpatient FAYE ChungMISCHER MHMISCHER [id number] 09:15:00 09:15:00 David 06 Marck 2020-02-15 2020-02-15 Telephone Chavo Bull 1.2.840.1 [id number] Methodi 00:00:00 00:00:[address] 3.430.2.7 Hospit a .3.361775 l .8 2020-02-13 2020-02-13 Orders Diogo Blandon 1.2.840.1 [id number] Methodi 00:00:00 00:00:[address] 3.430.2.7 Hospit a .3.206894 l .8 2020-02-11 2020-02-11 Telephone Chavo Bull 1.2.840.1 [id number] Methodi 00:00:00 00:00:[address] 3.430.2.7 Hospit a .3.057029 l .8 2020-02-09 2020-02-09 Outpatient [facility] [id number] [facility] 00[facility]00 [facility] ent Clinics 2020-02-03 2020-02-08 [facility] 1.2.840.1 [id number] Methodi 14:30:00 18:40:00 Encounter Aldo Pineda 15259.1.[address] Lock, Michael [facility] 3.430.2.7 Hospita .3.284596 l .8 2020-02-03 2020-02-08 Inpatient LOCK, [facility] [id number] [place] 00:00:00 00:00:00 MICHAEL [address] 2020-02-07 2020-02-07 Telephone Ricky 1.2.840.1 [id number] Methodi 00:00:00 00:00:[address] 3.430.2.7 Hospit a .3.280872 l .8 2020-02-03 2020-02-03 Telephone Ricky 1.2.840.1 [id number] Methodi 00:00:00 00:00:[address] 3.430.2.7 Hospit a .3.710516 l .8 2020-01-17 2020-01-17 Outpatient [facility] [id number] [facility] 00:00:00 [facility] Outpati ent Clinics 2019-12-14 2019-12-14 [facility] [id number] 10:48:00 10:48:00 t [employer] [facility] l Medicine Outpati ent Clinics 2019-11-23 2019-11-23 [facility] [id number] 09:00:00 09:00:00 t [employer] [facility] Medicine l Medicine Outpati ent Clinics 2019-11-23 2019-11-23 [facility] [id number] 08:05:00 08:05:00 t [facility] [employer] [facility] Medicine Outpati ent Clinics 2019-10-15 2019-10-15 [facility] [id number] 08:44:00 08:44:00 t [employer] [facility] Medicine Outpati ent Clinics 2019-09-07 2019-09-07 [facility] [id number] 11:56:00 11:56:00 [facility] [employer] [employer] [facility] Medicine Outpati ent Clinics 2019-08-13 2019-08-13 [facility] [id number] 10:20:00 10:20:00 t [employer] [facility] Medicine Outpati ent Clinics 2019-08-12 2019-08-12 [facility] [id number] 09:49:00 09:49:00 t [employer] [facility] Medicine Outpati ent Clinics 2019-06-15 2019-06-15 [facility] [id number] 15:24:00 15:24:00 t [employer] [facility] l Medicine Outpati ent Clinics 2019-06-09 2019-06-09 [facility] [id number] 08:40:00 08:40:00 t [facility] [employer] [facility] Medicine Outpati ent Clinics 2019-06-03 2019-06-03 [facility] [id number] 10:52:00 10:52:00 t [employer] [facility] Medicine Outpati ent Clinics 2019-05-28 2019-05-28 [facility] [id number] 16:20:00 16:20:00 t [employer] [facility] Medicine Outpati ent [facility] 2019-05-21 2019-05-23 Outside nullFlavo MNA [id number] Memoria 20:44:00 05:59:59 Medical r Neurology 00 l Records Ean Leakey 2019-05-21 2019-05-23 Outside nullFlavo MNA [id number] [facility]oria 20:44:00 05:59:59 Medical r Neurology 00 l Records Ean Leakey 2019-05-21 2019-05-22 Outpatient MHMISCHER MHMISCHER [id number] 14:44:00 23:59:59 00 2019-04-28 2019-04-28 Ambulatory nullFlavo MNA [id number] Memoria 19:00:00 19:00:00 Pre-Reg r Neurology 05 l Ean Leakey 2019-04-28 2019-04-28 Ambulatory nullFlavo MNA [id number] Memoria 19:00:00 19:00:00 Pre-Reg r Neurology 05 l [place] 2019-04-28 2019-04-28 Outpatient MHIE MHIE [id number] Memoria 13:00:00 13:00:00 05 l Leakey 2019-04-28 2019-04-28 [facility] [id number] 13:00:00 13:00:00 David Acharya 2019-01-01 2019-01-01 [facility] [id number] 15:32:00 15:32:00 t [employer] [facility] Medicine Outpati ent Clinics 2018-12-31 2018-12-31 [facility] [id number] 09:55:00 09:55:00 t [employer] [facility] Medicine Outpati ent [facility] 2018-12-30 2018-12-30 [facility] [id number] 13:25:00 13:25:00 t Clymer [employer] [facility] Medicine Outpati ent Clinics 2018-12-30 2018-12-30 [facility] [id number] 08:00:00 08:00:00 t Clymer [employer] [facility] Outpati ent Clinics 2018-12-29 2018-12-29 [facility] [id number] 09:42:00 09:42:00 t [employer] [facility] Outpati ent Clinics 2018-12-23 2018-12-24 Outpatient nullFlavo MNA [id number] Memoria 18:15:00 04:59:59 r Neurology 04 l Ean Lrann 2018-12-23 2018-12-24 Outpatient nullFlavo MNA [id number] Memoria 18:15:00 04:59:59 r Neurology 04 l Ean Silva 2018-12-23 2018-12-23 Outpatient [facility]IF [facility] [id number] 13:15:00 23:59:59 David Catrina Marck 2018-12-23 2018-12-23 Outpatient MHIE MHIE [id number] Memoria 13:15:00 13:15:00 04 matt Silva 2018-12-04 2018-12-04 [facility] [id number] 16:20:00 16:20:[address] [facility] Outpati ent Clinics 2018-11-30 2018-11-30 [facility] [id number] 10:08:00 10:08:00 t [facility]gent [facility] Outpati ent Clinics 2018-11-27 2018-11-28 Outpatient nullFlavo MNA [id number] Memoria 15:45:00 04:59:59 r Neurology 03 l Ean Lrann 2018-11-27 2018-11-28 Outpatient nullFlavo MNA [id number] Memoria 15:45:00 04:59:59 r Neurology 03 l Ean Silva 2018-11-27 2018-11-27 Outpatient [facility] [id number] 10:45:00 23:59:59 David 03 Marck 2018-11-27 2018-11-27 [facility] [id number] 13:00:00 13:00:00 t [employer] [facility] 2018-11-27 2018-11-27 Outpatient MHIE MHIE [id number] Memoria 10:45:00 10:45:00 03 matt Ricardo 2018-10-29 2018-10-29 [facility] [id number] 10:40:00 10:40:00 t [employer] [facility] 2018-10-16 2018-10-17 Outpatient nullFlavo MNA [id number] Memoria 14:00:00 04:59:59 r Neurology 02 matt Silva 2018-10-16 2018-10-17 Outpatient nullFlavo MNA [id number] Memoria 14:00:00 04:59:59 r Neurology 02 matt Silva 2018-10-16 2018-10-16 Outpatient Juliet MHMISCHER MHMISCHER [id number] 09:00:00 23:59:59 David 02 Marck 2018-10-16 2018-10-16 Outpatient MHIE MHIE [id number] Memoria 09:00:00 09:00:00 02 matt Ricardo 2018-10-02 2018-10-03 Outpatient nullFlavo MNA [id number] Memoria 20:00:00 04:59:59 r Neurology 01 matt Silva 2018-10-02 2018-10-03 Outpatient nullFlavo MNA [id number] Memoria 20:00:00 04:59:59 r Neurology 01 mtat Silva 2018-10-02 2018-10-02 Outpatient FAYE ChungMISCHER MHMISCHER [id number] 15:00:00 23:59:59 David 01 Marck 2018-10-02 2018-10-02 Outpatient MHIE MHIE [id number] Memoria 15:00:00 15:00:00 01 matt Silva 2018-10-01 2018-10-02 Outpatient nullFlavo MNA [id number] Memoria 13:15:00 04:59:59 r Neurology 00 l Ean Silva 2018-10-01 2018-10-02 Outpatient nullFlavo MNA [id number] Memoria 13:15:00 04:59:59 r Neurology 00 l Ean Silva 2018-10-01 2018-10-01 Outpatient ASIF ChungSCHBINU [id number] 08:15:00 23:59:59 David 00 Marck 2018-10-01 2018-10-01 Outpatient FAYEIE GILDA [id number] [facility] 08:15:00 08:15:00 00 matt Ricardo 2018-09-30 2018-09-30 [facility] [id number] 13:00:00 13:00:00 t Clymer [employer] [address] [facility] Medicine l Medicine Outpati ent Clinics 2018-08-31 2018-08-31 [facility] [id number] 11:00:00 11:00:00 t Clymer [employer] [address] [facility] l Medicine Outpati ent Clinics 2018-07-27 2018-07-27 [facility] [id number] 13:54:00 13:54:00 t Clymer [employer] [address] [facility] l Medicine Outpati ent Clinics 2018-07-23 2018-07-23 [facility] [id number] 08:53:00 08:53:00 t Clymer [employer] [address] [facility] Medicine l Medicine Outpati ent Clinics 2018-07-23 2018-07-23 [facility] [id number] 08:15:00 08:15:00 t Clymer [employer] [address] [facility] Medicine l Medicine Outpati ent Clinics 2018-06-22 2018-06-22 [facility] [id number] 10:30:00 10:30:00 t Clymer [employer] [address] [facility] Medicine l Medicine Outpati ent Clinics 2018-05-04 2018-05-04 [facility] [id number] 12:00:00 12:00:00 t Clymer [employer] [address] [facility] Medicine l Medicine Outpati ent Clinics 2018-04-02 2018-04-02 [facility] [id number] 09:00:00 09:00:00 t [employer] Bradshaw [employer] [facility] Clinics Results Test Description Test Time Test Comments Results Result Sourc e Comments MRI Thoracic 2020-05-22 EXAMINATION: MRI Metho dist Spine W Contrast 6 THORACIC SPINE W Ho spital 23:13:41 CONTRAST CLINICAL HISTORY: Evaluation of right sided hemiparesis hemisensory loss COMPARISON: Thoracic spinal MRI on 02/03/2020, concurrent cervical and lumbar spinal MRIs on 06/06/2020. TECHNIQUE: Postcontrast thoracic spine MRI after intravenous contrast administration, MS protocol. FINDINGS: [...] spinal canal stenosis. No significant neural foraminal stenosis. Visualized paraspinal soft tissues are unremarkable. IMPRESSION: Stable thoracic spinal MRI with unremarkable spinal cord, no evidence of demyelinating lesion. Stable mild spondylosis at T8-9 without significant spinal canal or neural foraminal stenosis. [id number] Interface, Radiology Results 06/06/2020 5:16 PM CST EXAMINATION: MRI THORACIC [...] or neural foraminal stenosis.[id number] MRI Cervical 2020-05-22 EXAMINATION: MRI Method ist Spine W Contrast 6 CERVICAL SPINE W Ho spital 23:08:17 CONTRAST CLINICAL HISTORY: Right sided hemiparesis hemisensory loss COMPARISON: None TECHNIQUE: Multiplanar multisequence [...] images through the disc spaces demonstrate the following: C1-C2: The atlantoaxial interval is intact with no significant disease or stenosis. C2-C3: No significant posterior disc disease, spinal canal or neural foraminal stenosis. C3-C4: No significant posterior disc disease, spinal canal or neural foraminal stenosis. C4-C5: No significant posterior disc disease, spinal canal or neural foraminal stenosis. C5-C6: No significant posterior disc disease, spinal canal or neural foraminal stenosis. C6-C7: No significant posterior disc disease, spinal canal or neural foraminal stenosis. C7-T1: No significant posterior disc disease, spinal canal or neural foraminal stenosis. No significant posterior disc disease, spinal canal or neural foraminal stenosis at other visualized levels. IMPRESSION: No significant cervical spine abnormality identified. No enhancing lesion identified. [id number] Interface, Radiology Results - 06/06/2020 5:11 PM CST EXAMINATION: MRI [...] identified.[id number] MRI Brain W Wo 2020-05-22 EXAMINATION: MRI Met [facility] tomb[facility]ist Contrast 6 BRAIN W WO CONTRAST [facility] 22:41:58 CLINICAL HISTORY: RIght sided hemiparesis hemisensory loss COMPARISON: Orbit and brain MRI on 02/03/2020. TECHNIQUE: Brain MRI without and with intravenous gadolinium contrast, MS protocol. FINDINGS: The brain appears stable, normal in signal and configuration with no evidence of acute infarction, hemorrhage, mass lesion, or abnormal enhancement. Ventricles, sulci, and cisterns are stable and normal in size and configuration. No extra-axial fluid collection. Flow voids of the major intracranial vessels are intact. Mucous retention cysts are again noted along the floor of the right maxillary sinus. Mastoid air cells are clear. Bones, orbits, and soft tissues are unremarkable. IMPRESSION: Unremarkable brain MRI with no evidence of demyelinating lesion or other acute intracranial abnormality. [id number] Interface, Radiology Results - 06/06/2020 4:45 PM CST EXAMINATION: MRI [...] intracranial abnormality.[id number]_PS 02 CT Chest Wo 2020-05-22 EXAMINATION: CT CHEST Me thodist Contrast 6 WO CONTRAST HISTORY: Hosp ital 18:08:03 COVID-19 positive with chest tightness TECHNIQUE: CT examination of the chest was performed without intravenous contrast. Radiation dose-reduction techniques were used, whereby technical factors are evaluated and adjusted to ensure appropriate moderation of exposure. Automated dose management technology is applied to adjust radiation exposure while achieving a diagnostic quality image. COMPARISON: No prior CT available. FINDINGS: Devices: None. Pulmonary: Minimal nodular groundglass opacity along the periphery of the right upper lobe, as well as base. No consolidative pulmonary opacity. No suspicious pulmonary nodule. Pleural: No effusion or pneumothorax. Cardiovascular: Heart size normal. No pericardial effusion. No appreciable calcific coronary artery disease. Mediastinum/Nodes: No thoracic lymphadenopathy. Musculoskeletal: No acute or aggressive-appearing osseous lesion. Upper abdomen: Cholecystectomy clips. Upper limit of normal-size spleen. IMPRESSION: 1.Few faint peripheral groundglass opacities in both lower lobes. Together with the positive lab findings, this is compatible with mild Covid pneumonia. [facility]-[id number] Interface, Radiology Results [facility] - 06/06/2020 12:11 PM CST EXAMINATION: CT [...] findings, this is compatible with mild Covid pneumonia.[facility]-[id number] Urine culture 2020-06-04 18:51:05 Test Item Value Reference Range Interpretation Comme nts Urine culture (test code = 6666599) SEE COMMENT Bacteriuria screen negative. [facility] RNA [Presence] in Respiratory specimen by SARI with probe [id number] 18:31:32 Test Item Value Reference Range Interpretation Comments SARS-CoV-2 (COVID-19) RNA [Presence] Detected Not-Detected in Respiratory specimen by SARI with probe detection (test code = 75407-3) OCT, Optic Nerve - [id number] 19:34:42Chavo Bull MD - 05/24/2020 5:54 PM CST [facility], Extended - [id number] 19:34:39Chavo Bull MD - 05/24/2020 5:54 PM CST [facility] in 1 [id number] 16:07:52 Test Item Value Reference Range Interpretation Comments SUPPLIER NAME (test XMED Oxygen and code = 6415) Medical SUPPLIER PHONE (test [phone] code = 6416) ORDER STATUS (test code Delivery Successful = 6417) DELIVERY NOTE (test code = 6419) REQUESTED DELIVEY DATE 02/16/2020 (test code = 6420) ITEM DESCRIPTION (test 3 in 1 Commode Qty : 1 code = 6423) ACTUAL DELIVERY DATE 02/16/2020 (test code = 6422) [facility] [id number] 18:23:11Electromyogram and NCS ReportATRIUM HEALTH [facility]OLIN[facility] Neurological Denlhbvsb7444Zeoi,WP11,[place],[id number]: F : Patient: Snow Argueta Physician: Nicolasa Romeo, MDAge: 34 Test Date: 02/15/20ex: FemaleHeight: 66 inchesWeight: 220 lbsRef. MGrazynaD.: Fior Batista, MDDob: 87 History/Comments:Thepatient is a [...] Site: Wrist Pk Lat (ms) Amp (uV)Stim Gwbj8lh dig 2.5 21.0 Sensory Nerve Study Right [...] Tibial Nerve Left Tibial Nerve Right Tibial NerveSikh HospitalVisual evoked potentials 2020-02-15 15:07:24 PATTERN REVERSAL VISUAL EVOKED POTENTIAL REPORT Patient Name: Snow Argueta Date of : 1985 Gender: female Date of Procedure: 02/14/2020 IndicationVision loss FindingsPattern reversal visual evoked potentials were obtained following independent left and right full field monocularstimulation. OctL376 absolute latencies were 99.8 msec and 102.6 msec following independent left andright eye stimulation. All interpeak latencies and waveform morphologies were normal. ImpressionThisis a normal study. ICD10 Code/Diagnosis: [id number] [facility] Lumbar Spine W Wo [id number] 16:16:59EXAMINATION: MRI LUMBAR SPINE W WO CONTRAST CLINICAL HISTORY: New lower extremity weakness COMPARISON: None TECHNIQUE: Multiplanar multisequence nonenhanced and contrast enhanced MRI [...] disc heights are preserved. Conus medullaris terminates appropriately at the level level. No abnormal T2 hyperintense intramedullary signal or enhancement identified.The cauda equina nerve roots are symmetric and normal in appearance. No abnormal thickening, clumping or enhancement identified. Evaluation of the visualized soft tissues demonstrates no mass, adenopathy or aneurysm. Axial images through the disc spaces demonstrate the following: L1-L2: No significant posterior disc disease, spinal canal, subarticular zone, or neural foraminal stenosis. L2-L3: No significant posterior disc disease, spinal canal, subarticular zone, or neural foraminal stenosis. L3-L4: No significant posterior disc disease, spinal canal, subarticular zone, or neural foraminal stenosis. Mild facet arthrosis is noted bilaterally. L4-L5: Mild right neural foraminal stenosis secondary to foraminal disc protrusion measuring 3 x 9 mm in axial dimensions. There is questionable contact ofthe exiting L4 nerve root on the right, image 11 of series 6. No significant posterior disc disease,spinal canal, subarticular zone, or left neural foraminal stenosis. Mild to moderate facet arthrosisis noted bilaterally. L5-S1: No significant posterior disc disease, spinal canal, subarticular zone,or neural foraminal stenosis. Moderate facet arthrosis is noted bilaterally. Evaluation of other visualized levels demonstrates no significant posterior disc disease, spinal canal, subarticular zone, or neural foraminal stenosis. IMPRESSION: Mild right neural foraminal stenosis at L4-L5 secondary toforaminal disc protrusion, including questionable contact of the exiting L4 nerve root on the right.Recommend correlation to radiculopathy distribution. [facility]-[id number] Interface, Radiology Results - 02/13/2020 11:20 AM CDT EXAMINATION: MRI LUMBAR SPINE W WO CONTRASTCLINICAL HISTORY: New lower extremity weaknessCOMPARISON: None TECHNIQUE: Multiplanar multisequence nonenhanced and contrast enhanced MRI examination was performedof the lumbar spine.FINDINGS:There are 5 non-rib bearing lumbar type vertebrae, the lowest labeled L5 in this report as identified by the lumbosacral angle and iliolumbar ligaments. The alignment of the lumbar spine is within normal limits. No subluxation. No abnormal marrow edema or enhancement identified. No suspicious osseous lesions. No degenerative marrow signal abnormality is present. Vertebralbody and intervertebral disc heights are preserved.Conus medullaris [...] subarticular zone, or neural foraminal stenosis.L3-L4: No significantposterior disc disease, spinal canal, subarticular zone, or [...] on the right. Recommend correlation to radiculopathy distribution.[facility]-[id number] [facility] 2020-02-13 14:57:03EXAM: MRI BRAIN VENOGRAM CLINICAL HISTORY: Headache chronic normal neuro exam TECHNIQUE: Head MRvenogram using 2D lwdp-dv-epbsmw technique with multi-planar MIP and 3D reconstruction. COMPARISON:MRI brain, 02/03/2020 FINDINGS: The superior sagittal sinus, transverse and sigmoid sinuses as wellas the straight sinus are all patent with no evidence of dural venous sinus thrombosis. The visualized internal cerebral veins, basal veins of Harmeet and the vein of [place] are all patent. The major cortical veins are patent. IMPRESSION: 1.Unremarkable head MR venogram with no definite evidence of dural sinus venous thrombosis. [id number] Interface, Radiology Results Incoming - 02/13/2020 10:00 AM CDT EXAM: MRI BRAIN VENOGRAMCLINICAL HISTORY: Headache chronic normal neuro examTECHNIQUE: Head MR venogram using 2D sdma-hs-frclwi technique with multi-planar MIP and 3D reconstruction.COMPARISON: MRI brain, 02/03/2020FINDINGS:The superior sagittal sinus, transverse and sigmoid sinuses as well as the straight sinus are all patent with no evidence of dural venous sinus thrombosis. The visualized internal cerebral veins, basal veinsof Harmeet and the vein of [place] are all patent. The major cortical veins are patent.IMPRESSION:1.Unremarkable head MR venogram with no definite evidence of dural sinus venous thrombosis.[id number],DX OR [id number] 15:39:11CFamilia hickey RN 02/08/2020 10:40 AMMidline Date/Time: 02/08/2020 [...] TotalCatheter Length (cm): 12 Catheter Lot Number: [id number] Catheter Expiration Date: 2Procedure details: Landmarks identified: [...] tolerance of procedure: Tolerated well, no immediate complicationsMethodist [facility] upper [id number] 03:03:00 Vascular Ultrasound Laboratory Upper Extremity Venous Report [address] [place] [address] Pat.Name: SNOW ARGUETA Pat.ID: [id number] St.Date: 02/07/2020 Refer.MD: MICHAEL MADDOX MD Exam Time: 4:33:00 PM Frances betancur Type:UE Venous Height: 66in Weight: 220lb BSA: 2.08 m2 Age: 7 1985,34Y Sex: FEMALE Sonogrphr: Ryan Torres RVT Pat. Stat.:Inpatient Room: [address] Tape Vol: HV, CPT - 4: 44610 Echo Event ID:[id number] Order ID: [id number] Reason for Study:Right arm pain and swelling. S/P m idline removal on02/07/2020.Procedures: Colorflow, Grayscale/2D, Pulsed wave DopplerRace: D SUMMARY: DUPLEX SCAN OBSERVATIONS Right LeftIJ Normal Subclavian Normal NormalAxillary Normal Brachial Normal Basilic Obstructed Cephalic(FA) Normal RIGHT: The upper arm basilic vein is non-compressible withmixedechogenic material within the lumen. Colorflow and Doppler [...] superficial venous thrombosis of right upper arm basilicvein.--- FINDINGS: Si gned 02/07/2020 10:03 PMZsolt Camille MD, RPVIInterce, Radiology Results In - 02/07/2020 10:03 PM CDTFormatting of thisnote might be different from the original. Vascular Ultrasound Laboratory Upper Extremity Venous Report [address] [place] [address] Pat.Name: SNOW ARGUETA Pat.ID: [id number] .Date: 02/07/2020 Refer.MD: MICHAEL MADDOX MD Exam Time: 4:33:00 PM Study Type:UE Venous Height: 66in Weight: 220lb BSA: 2.08 m2 Age: 7 1985,34Y Sex: FEMALE Sonogrphr: Ryan Torres RVT Pat. Stat.:Inpatient Room: [address] Tape Vol: , CPT - 4: 96898 Echo Event ID:[id number] Order ID: [id number] Reason for Study:Right arm pain and swelling. S/P midline removal on02/07/2020.Procedures: Colorflow, Grayscale/2D, Pulsed wave DopplerRace: D [facility] RY: DUPLEX SCAN OBSERVATIONS Right LeftIJ Normal Subclavian Normal NormalAxillary Normal Brachial Normal Basilic Obstructed Cephalic(FA) Normal RIGHT: The upperarm basilic vein is non- compressible with mixedechogenic material within the lumen. Colorflow and Dop pler signals areabsent. All other remaining veins are patetnt. LEFT: There is normal compressibilityand no evidence of echogenicmaterial noted within the [...] FINDINGS: Signed 02/07/2020 10:03 Yessi Obrien MD, KAMRYNVISikh HospitalFlow cytometry [id number] 14:52:18 Test Item Value Reference Range Interpretation Comments Case number (test code = [id number]) Flow cytometry evaluation See link below for (test code = 4780407) PDF Lab Report [facility],DX OR [id number] 14:18:07Javier Borjas RN 02/07/2020 9:21 AMMidline Date/Time: 02/07/2020 9:18 [...] to vein ratio: 41%MidLine Characteristics: Catheter Brand: ANGIOFlash Auto Detailing External Catheter Length (cm): 0 Internal Catheter Length (cm): 12 Total Catheter Length (cm): 12 Catheter Lot Number: [id number] Catheter Expiration Date: 01/18/2021rocedure details: Landmarks identified: [...] tolerance of procedure: Tolerated well, no immediate complicationsFaith [facility] Hospital 12 [id number] 17:49:19 Test Item Value Reference Range Interpretation Comments Ventricular rate (test code = 253) Atrial rate (test code = 255) IA interval (test code = 266) QRSD interval (test code = 260) QT interval (test code = 264) QTC interval (test code = 265) P axis 1 (test code = 267) QRS axis 1 (test code = 268) T wave axis (test code = 270) EKG impression (test Normal sinus code = 273) rhythm-Normal ECG-In automated comparison with ECG of 04-FEB-2020 04:50,-No significant change was found- [facility]XR [facility] 1 Vw [id number] 03:09:52EXAMINATION: XR CHEST 1 VW PORTABLE CLINICAL HISTORY: 34 years Female chest pressure on exertion COMPARISON: None. IMPRESSION: No acute cardiopulmonary disease. FINDINGS: The cardiomediastinal silhouette, lungs, and regional skeletal structures are within normal limits for age. [id number] Interface, Radiology Results - 02/05/2020 10:12 PM CDT EXAMINATION: XR CHEST 1 VW PORTABLECLINICAL HISTORY: 34 years Female chest pressure on exertionCOMPARISON: None.IMPRESSION:No acute cardiopulmonary disease.FINDINGS:The cardiomedia stinal silhouette, lungs, and regional skeletal structures are within normal limits for age. [facility]-[id number] HospitalCytology (non-gynecological) [id number] 23:15:16 Test Item Value Reference Range Interpretation Comments Case number (test code = [id number]) Cytology See link below for (non-gynecological) PDF Lab Report report (test code = 1178) Result status (test code This is Final Report = [id number]) for [id number] [facility]EE (routine)2020-02-04 15:51:25EEG AWAKE AND ASLEEP Date of Service: 02/04/2020 Awake Recording: The occipital dominant rhythm is 10-11 Hz. 18-22 Hz activity is present in all regions. Sleep Recording: No epileptiform activity was recorded. Hyperventilation: No abnormality elicited. Photic Stimulation: No abnormality elicited. Impression The background activity is within the range of normal variation. No lateralized or epileptiform activity was recorded. ICD-10 Code: A112Ihtbqwkra HospitalIR Lumbar Puncture by Radiology 2020-02-04 15:23:15EXAMINATION: IR LUMBAR PUNCTURE CLINICAL HISTORY: meningitis versus leukemia versus demyelination COMPARISON: None. Findings: Informed consent was obtained. Lower back was prepped and draped in usual sterile fashion. 1% lidocaine was used for local anesthesia. A 22-gauge 5 inch needle was advancedinto spinal canal at the L2-3 level under intermittent fluoroscopic guidance. Opening pressure was 21 cm of water. 12 cc of clear CSF fluid was withdrawn. Patient complained of radiculopathy after 12 cc of fluid was withdrawn. No complications. Total fluoroscopic time was 0.2 minutes. Total air kerma was 5 mGy. IMPRESSION: Successful fluoroscopic guided lumbar puncture. Opening pressure was 21 cm of water. [id number] [facility], Radiology Results 02/04/2020 10:26 AM CDT EXAMINATION: IR LUMBAR PUNCTURECLINICAL HISTORY: meningitis versus leukemia versus demyelinationCOMPARISON: None.Findings:Informed consent was obtained. Lower back was prepped and draped in usual sterile fashion. 1% lidocaine was used for local anesthesia. A 22-gauge 5 inch needle was advanced into spinal canal at the L2-3 level under intermittentfluoroscopic guidance. Opening pressure was 21 cm of water.12 cc of clear CSF fluid was withdrawn. Patient complained of radiculopathy after 12 cc of fluid was withdrawn.No complications.Total fluoroscopic time was 0.2 minutes. Total air kerma was 5 mGy.IMPRESSION:Successful fluoroscopic guided lumbar puncture.Opening pressure was 21 cm of water.[id number] Hospital SARS-CoV-2 (COVID-19) RNA [Presence] in Respiratory specimen by SARI with probe [id number] 05:23:12 Test Item Value Reference Range Interpretation Comments SARS-CoV-2 (COVID-19) RNA Not detected Not-Detected [Presence] in Respiratory specimen by SARI with probe detection (test code = 12149-8) MRI Brain & Orbit W Wo [id number] 03:36:27EXAMINATION: MRI BRAIN & ORBIT W WO CONTRAST CLINICAL HISTORY: Vision loss COMPARISON: CT brain dated 02/03/2020. FINDINGS: Pre and postcontrast MRI of the brain and orbits is interpreted. The optic nerves, optic chiasm, and optic tracts are normal in size and signal intensity. There is no abnormal enhancement. The brain is normal in morphology and in signal intensity. There is no abnormal restricted diffusion. No extra-axial collection or mass effect is seen. The major vascular flow-voids are preserved. IMPRESSION: Unremarkable MRI of the brain and orbits. [facility] [id number] Interface, Radiology Results 02/03/2020 10:39 PM CDT EXAMINATION: MRI BRAIN & ORBIT W WO CONTRASTCLINICAL HISTORY: Vision lossCOMPARISON: CT brain dated 02/03/2020.FINDINGS:Pre and postcontrast MRI of the brain and orbits is interpreted.Theoptic nerves, optic chiasm, and optic tracts are normal in size and signal intensity. There is no abnormal enhancement.The brain is normal in morphology and in signal intensity.There is no abnormal restricted diffusion.No extra-axial collection or mass effect is seen.The major vascular flow-voids are preserved.IMPRESSION:Unremarkable MRI of the brain and orbits.[facility]-[id number] Hospitals of [facility] Campus Head Wo [id number] 21:17:18 EXAM: CT HEAD WO CONTRAST CLINICAL HISTORY: headache loss of vision concern for ICP TECHNIQUE: Noncontrast enhanced images of the brain were obtained from the skull base to the vertex. Both soft tissue and bone reconstruction algorithms were performed. CT scans are performed using radiation dose re duction techniques (iterative reconstruction and/or automated exposure control). [...] ectopia. Orbits are unremarkable. Mild mucosal thickening identified in fairly withinthe right maxillary sinus. Remaining paranasal sinuses are clear. Mastoid air cells are normally pneumatized. Osseous structures are intact. IMPRESSION: No CT evidence for acute intracranial abnormality. [id number] Interface, Radiology Results Incoming - 02/03/2020 4:20 PM CDT EXAM: CT HEAD WO CONTRASTCLINICAL HISTORY: headache lossof vision concern for ICPTECHNIQUE: Noncontrast enhanced images of the brain were obtained from theskull base to the vertex. Both soft tissue and bone reconstruction algorithms were performed. CT scans are performed using radiation dose reduction techniques (iterative reconstruction and/or automated exposure control). Technical factors are evaluated and adjusted to ensure appropriate moderation ofexposure. Automated dose management technology is applied to [...] right maxillary sinus. Remaining paranasal sinuses are clear.Mastoid air cells are normally pneumatized. Osseous structures are intact.IMPRESSION:No CT evidencefor acute intracranial abnormality.[id number]
--- NOTE | 2020-12-25 12:27 | RAD REPORT ---
EXAM DESCRIPTION: RAD - Tib Fib Left - 12/25/2020 12:19 pm CLINICAL HISTORY: PAIN COMPARISON: No comparisons FINDINGS: No acute fracture or dislocation seen.
--- NOTE | 2020-12-25 12:27 | RAD REPORT ---
EXAM DESCRIPTION: RAD - Tib Fib Right - 12/25/2020 12:19 pm CLINICAL HISTORY: PAIN COMPARISON: No comparisons FINDINGS: No acute fracture or dislocation is seen.
--- NOTE | 2020-12-25 12:28 | RAD REPORT ---
EXAM DESCRIPTION: RAD - Hand Right 3 View - 12/25/2020 12:19 pm CLINICAL HISTORY: PAIN COMPARISON: No comparisons FINDINGS: No acute fracture or dislocation is evident.
--- NOTE | 2020-12-25 12:31 | RAD REPORT ---
EXAM DESCRIPTION: RAD - Hand Left 3 View - 12/25/2020 12:19 pm CLINICAL HISTORY: PAIN FINDINGS: No acute fracture or dislocation is seen.
--- NOTE | 2020-12-25 13:19 | ER ---
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 Both hands, both ll1 knees, both shins, L ankle pain and swelling. No LOC. Eliquis twice daily. Care prior to arrival: None. Mechanism of Injury: Fall. Trauma event details: Injury occurred in the [facility]. 11:07 Acuity: LEONEL 3 ll1 11:07 Method Of Arrival: Wheelchair ll1 11:09 Coronavirus screen: Vaccine status: Patient reports being unvaccinated. At this time, ll1 the client does not indicate any symptoms associated with coronavirus-19. Ebola Screen: Patient denies travel to an Ebola-affected area in the 21 days before illness onset. Initial Sepsis Screen: Does the patient meet any 2 criteria? No. Patient's initial sepsis screen is negative. Does the patient have a suspected source of infection? Yes: Skin breakdown/wound. Risk Assessment: Do you want to hurt yourself or someone else? Patient reports no desire to harm self or others. Onset of symptoms was December 25, 2020. Trauma Activation: Not Applicable Physician: ED Physician; Name: ; Notified At: ; Arrived At: Physician: General Surgeon; Name: ; Notified At: ; Arrived At: Physician: Radiology; Name: ; Notified At: ; Arrived At: Physician: Respiratory; Name: ; Notified At: ; Arrived At: Physician: Lab; Name: ; Notified At: ; Arrived At: Historical: - Allergies: 11:10 Cephalexin; ll1 11:10 Gadavist; ll1 11:10 Latex, Natural Rubber; ll1 11:10 Zofran; ll1 - PMHx: 11:10 ADD/ADHD; Blood Clot on R arm; Endometrosis; GERD; Hypothyroidism; Leukemia; epilepsy; ll1 Pancreatitis; - PSHx: 11:10 None; ll1 - Immunization history:: Client reports having NOT received the Covid vaccine. Pneumococcal vaccine is up to date, Flu vaccine is up to date. - Social history:: Smoking status: Reported history of juuling and/or vaping. Patient denies any tobacco usage or history of. Screenin:25 Abuse screen: Denies threats or abuse. Denies injuries from another. Nutritional ss screening: No deficits noted. Tuberculosis screening: Never had TB. Fall Risk None identified. Assessment: 13:25 General: Appears in no apparent distress. Behavior is calm, cooperative. Pain: ss Complains of pain in right knee and anterior aspect of left ankle and left knee and right middle finger and heel of left hand Pain currently is 10 out of 10 on a pain scale. Neuro: Level of Consciousness is awake, alert. Cardiovascular: Capillary refill < 3 seconds is brisk in bilateral fingers Patient's skin is warm and dry. Respiratory: Airway is patent Respiratory effort is even, unlabored, Respiratory pattern is regular, symmetrical. GI: No signs and/or symptoms were reported involving the gastrointestinal system. EENT: Oral mucosa is moist. Derm: Skin is intact, is healthy with good turgor, Skin is dry, Skin is pink, warm \T\ dry. normal. Musculoskeletal: Swelling absent. Injury Description: Abrasion sustained to left knee. Vital Signs: 11:09 Weight 78.02 kg; Height 5 ft. 6 in. (167.64 cm); Pain 10/10; ll1 11:11 BP 112 / 87; Pulse 90; Resp 16; Temp 97.4; Pulse Ox 100% ; ll1 11:09 Body Mass Index 27.76 (78.02 kg, 167.64 cm) ll1 ED Course: 10:41 Patient arrived in ED. ds1 11:09 Triage completed. ll1 11:10 Sudha Hinkle FNP-C [facility]. kb 11:10 Rustam Aguirre MD is Attending Physician. kb 11:11 Arm band placed on. ll1 12:19 Hand Left 3 View XRAY In Process Unspecified. EDMS 12:19 Hand Right 3 View XRAY In Process Unspecified. EDMS 12:19 Tib Fib Left XRAY In Process Unspecified. EDMS 12:19 Tib Fib Right XRAY In Process Unspecified. EDMS 13:20 Ivonne Cai, RN is Primary Nurse. ss 13:25 Patient has correct armband on for positive identification. Bed in low position. Call ss light in reach. 13:27 No provider procedures requiring assistance completed. Patient did not have IV access ss during this emergency room visit. Wound care: to abrasion, located on left knee was cleaned with soap and water, Patient tolerated well. Administered Medications: 13:25 Drug: Tetanus-Diphtheria Toxoid Adult 0.5 ml {Bridge Tender: [employer]. Exp: ss 07/20/2022. Lot #: [id number]. } Route: IM; Site: right deltoid; 13:32 Follow up: Response: No adverse reaction; Medication administered at discharge. ss Outcome: 13:18 Discharge ordered by . kb 13:32 Discharged to home ambulatory. ss 13:32 Condition: good 13:32 Discharge instructions given to patient, Instructed on discharge instructions, follow up and referral plans. medication usage, Demonstrated understanding of instructions, follow-up care, medications, Prescriptions given X 2. 13:32 Patient left the ED. ss Signatures: Dispatcher [employer] EDNH Sudha Hinkle, POWER SHOVEL ENGINEER-C POWER SHOVEL ENGINEER-Ckb Toya Powers ds1 Ivonne Cai, RN RN Duy Saba RN RN ll1
--- NOTE | 2020-12-25 13:19 | EDPHYS ---
Physician Documentation [facility] Name: Snow Argueta Age: 35 yrs Sex: Female : 1985 Arrival Date: 12/25/2020 Time: 10:41 Bed DX3 Private MD: ED Physician Rustam Aguirre HPI: 12/25 12:10 This 35 yrs old Female presents to ER via Wheelchair with complaints of Fall kb Injury. 12:10 Details of fall: The patient fell from an upright position, while walking. Onset: The kb symptoms/episode began/occurred just prior to arrival. Associated injuries: The patient sustained anterior aspect of left ankle and left bajwa and left knee, painful injury, swelling, right bajwa and right knee, painful injury, swelling, right middle finger, decreased range of motion, painful injury, heel of left hand, painful injury, swelling. Severity of symptoms: At their worst the symptoms were moderate, in the emergency department the symptoms are unchanged. The patient has not experienced similar symptoms in the past. The patient has not recently seen a physician. Pt reports she is in the middle of moving and tripped over a box that she didn't know what behind her. Reports pain to both knees and shins, left ankle, right middle finger and heel of left hand. Abrasions and avulsions to left knee. Historical: - Allergies: 11:10 Cephalexin; ll1 11:10 Gadavist; ll1 11:10 Latex, Natural Rubber; ll1 11:10 Zofran; ll1 - PMHx: 11:10 ADD/ADHD; Blood Clot on R arm; Endometrosis; GERD; Hypothyroidism; Leukemia; epilepsy; ll1 Pancreatitis; - PSHx: 11:10 None; ll1 - Immunization history:: Client reports having NOT received the Covid vaccine. Pneumococcal vaccine is up to date, Flu vaccine is up to date. - Social history:: Smoking status: Reported history of juuling and/or vaping. Patient denies any tobacco usage or history of. ROS: 12:07 Constitutional: Negative for fever, chills, and weight loss. kb 12:07 MS/extremity: Positive for pain, swelling, of the right middle finger, heel of left hand, right knee, right bajwa, left knee, left bajwa and anterior aspect of left ankle. 12:07 Skin: Positive for abrasion(s), avulsion, of the left knee. 12:07 All other systems are negative. Exam: 12:07 Constitutional: This is a well developed, well nourished patient who is awake, alert, kb and in no acute distress. Head/Face: Normocephalic, atraumatic. ENT: Moist Mucous membranes Respiratory: Respirations even and unlabored. No increased work of breathing, no retractions or nasal flaring. Neuro: Awake and alert, GCS 15, oriented to person, place, time, and situation. Moves all extremities. Normal gait. Psych: Awake, alert, with orientation to person, place and time. Behavior, mood, and affect are within normal limits. 12:07 Musculoskeletal/extremity: Extremities: grossly normal except: noted in the right bajwa and right knee: pain, swelling, noted in the anterior aspect of left ankle and left bajwa and left knee: abrasion, pain, swelling, noted in the heel of left hand: pain, swelling, Noted in right middle finger: decreased ROM, pain, ROM: intact in all extremities, Circulation is intact in all extremities. Sensation intact. 12:07 Skin: injury, abrasion(s), small abrasion noted, of the left knee, avulsion(s), a small of the left knee. Vital Signs: 11:09 Weight 78.02 kg; Height 5 ft. 6 in. (167.64 cm); Pain 10/10; ll1 11:11 BP 112 / 87; Pulse 90; Resp 16; Temp 97.4; Pulse Ox 100% ; ll1 11:09 Body Mass Index 27.76 (78.02 kg, 167.64 cm) ll1 MDM: 11:11 Patient medically screened. kb 12:09 Data reviewed: vital signs, nurses notes. Data interpreted: Pulse oximetry: on room air kb is 100 %. Interpretation: normal. Counseling: I had a detailed discussion with the patient and/or guardian regarding: the historical points, exam findings, and any diagnostic results supporting the discharge/admit diagnosis, radiology results, the need for outpatient follow up, a family practitioner, to return to the emergency department if symptoms worsen or persist or if there are any questions or concerns that arise at home. 12/25 11:11 Order name: Hand Left 3 View XRAY; Complete Time: 12:44 kb 12/25 11:11 Order name: Hand Right 3 View XRAY; Complete Time: 12:30 kb 12/25 11:11 Order name: Wound Care: clean and dress left knee; Complete Time: 13:10 kb 12/25 11:11 Order name: Tib Fib Left XRAY; Complete Time: 12:28 kb 12/25 11:11 Order name: Tib Fib Right XRAY; Complete Time: 12:28 kb Administered Medications: 13:25 Drug: Tetanus-Diphtheria Toxoid Adult 0.5 ml {Electrostatic Powder Coating Technician: [employer]. Exp: ss 07/20/2022. Lot #: [id number]. } Route: IM; Site: right deltoid; 13:32 Follow up: Response: No adverse reaction; Medication administered at discharge. Disposition: 15:14 Co-signature as Attending Physician, Rustam Aguirre MD I agree with the assessment and lisandra plan of care. Disposition Summary: 12/25/20 13:18 Discharge Ordered Location: Home kb Condition: Stable kb Diagnosis - Fall on same level from slipping, tripping and stumbling without subsequent kb striking against object - Abrasion of lower leg - left knee kb - Pain in left ankle and joints of left foot kb - Pain in left lower leg kb - Pain in right lower leg kb - Pain in left hand kb - Pain in right hand kb Followup: kb - With: Emergency Department - When: As needed - Reason: Worsening of condition Followup: kb - With: Private Physician - When: 2 - 3 days - Reason: Recheck today's complaints, Continuance of care, Re-evaluation by your physician Discharge Instructions: - Discharge Summary Sheet kb - Musculoskeletal Pain kb - Contusion, [id number] kb Forms: - Medication Reconciliation Form kb - Thank You Letter kb - Antibiotic Education kb - Prescription Opioid Use kb Prescriptions: - Cyclobenzaprine 10 mg Oral Tablet - take 1 tablet by ORAL route every 8 hours As needed; 21 tablet; Refills: 0, kb Product Selection Permitted - Diclofenac Sodium 75 mg Oral tablet,delayed release (DR/EC) - take 1 tablet by ORAL route 2 times per day As needed; 30 tablet; Refills: 0, kb Product Selection Permitted Signatures: Dispatcher [employer] Sudha Duggan, LIVIER MORENO-Rustam Marin MD MD cha Smirch, Shelby, RN RN ss Michele, Lynsay, RN RN ll1
[2020-12-25 13:46] VITALS: BP 112/87; TEMP 97.4; O2SAT 100
[2020-12-25] MEDS ORDERED: TETANUS & DIPHTHERIA TOX,ADULT 0.5 ML VIAL ONE (13:46)
== END 2020-12-25 13:32 | disposition home or self-care (01) ==
LOC: ER 10:39
DX: S80.212A Abrasion, left knee, initial encounter (principal); M25.572 Pain in left ankle and joints of left foot; M79.661 Pain in right lower leg; M79.642 Pain in left hand; M79.641 Pain in right hand; W01.0XXA Fall on same level from slipping, tripping and stumbling without subsequent striking against object, initial encounter; Z23 Encounter for immunization; Z88.8 Allergy status to other drugs, medicaments and biological substances; Z91.040 Latex allergy status; Z91.048 Other nonmedicinal substance allergy status
CPT/HCPCS: 90471; 90714; 99284

== ENCOUNTER 2020-12-27 18:22 | Emergency (ER) | payer OTHER ==
--- OUTSIDE RECORDS SUMMARY | 2020-12-27 18:25 | XMS REPORT | Clinical Summary ---
:1985 Author Organization [facility] MD [facility] Address [address] [place] [address] Care Team Providers Name Role Phone MD Yari Primary Care Provider MD Brayan Unavailable MD Karmen Unavailable Rose Marie Yancey MD Unavailable MD Becky Unavailable MD Cassius Unavailable Unavailable MD Mary Unavailable Unavailable Yuri Dunlap Unavailable GERARD Etienne Unavailable TIFFANIE Johnson Unavailable John Allison Unavailable MD Lionel Unavailable nAna Winchester NP Unavailable Unavailable MD Susana Unavailable XOCHITL Milligan Unavailable MD Maura Unavailable So Alfaro MD Unavailable MD Yari Unavailable Christopher Graham NP Unavailable Holger, BARREL POLISHER Unavailable Gabriela, PA Unavailable Severiano, BARREL POLISHER Unavailable Yamil Chaidez MD Unavailable Waijuan Mike PA Unavailable Jennifer Jung PA Unavailable [facility]REL POLISH[facility] Unavailable Marcela Damico MD Unavailable Anna Damico [...] Geo Paula MD S ARS-CoV-2 vaccination after 12/28/2019 Immunizations Name Administration Dates Next Due Influenza [...] Vaccination (1) 1998 Results Not on fileafter 12/28/2019 Insurance Payer Benefit Plan / Subscriber ID Effective Dates Phone Addre ss Type Group [employer]UE [employer] [place] POS [id number] 2018-Present PPO [place] [place], [place] (Work) [id number] Snow Argueta Personal/Family Self 1985 [address] [id number] [place], [place] ([place]) [phone] Snow Argueta Personal/Family Self 1985 [address] [id number] [place] [address]
--- OUTSIDE RECORDS SUMMARY | 2020-12-27 18:28 | XMS REPORT | Continuity of Care Document ---
:1985 Author Organization [facility] t Address [address] [place] [address] Care Team Providers Name Role Phone Lesley Savage DO Primary Care Physician Harsh Attending Clinician Unavailable Lesley Savage DO Attending Clinician Marck Chung Attending Clinician ALFONZO Attending Clinician Unavailable Alfonzo HAMILTON Attending Clinician Nisa HAMILTON Attending Clinician Jennifer Mane MD. Attending Clinician Anival [facility] Attending Clinician Unavailable Lyndsay HAMILTON Attending Clinician Nasreen HAMILTON Attending Clinician Ashok Tsai MD Attending Clinician Jae Ruby MD Attending Clinician Marichuy HAMILTON Attending Clinician Toni Maldonado MD Attending Clinician Barber Attending Clinician Unavailable Janice Guevara MD Attending Clinician Edwin HAMILTON Attending Clinician Varsha HAMILTON, [facility] Attending Clinician Ricky HOBSON Attending Clinician Unavailable NASREEN Admitting Clinician Unavailable MARICHUY Admitting Clinician Unavailable EDWIN Admitting Clinician Unavailable Payers Payer Name Policy Type Policy Number Effective Date Expiration Date S ource [facility] [id number] - [facility] OPEN ACCESS PLUS [id number] - [employer] BLUE CROSS BLUE [id number] 2018 [facility] 00:[place]:00 [id number] Problems Condition Condition Condition Status Onset Resolution [...] Memor ia disturbanc 21:41:00 l e Visual [place] (disorder) disturbanc e (disorder) Active Problem 12/03/2020 [...] 2019-04 Vomiting1 Methodi ol ty to Comments) 015 st adverse 00:00: 8:30pm- Hospita reaction 00 [...] Not [facility] in Reaction Available [facility] ent [facility] Zofran Adverse Active Info Not [facility] Reaction Available [facility] ent [facility] cephalex cephalex Active Memori a in in l [place] Latex Latex Active Memoria matt Silva Gadavist Gadavist Active Memori a l [place] Zofran Zofran Active Memoria l [place] Feraheme Feraheme Active Memori a l Ricardo Family History Family Member Diagnosis Comments Start Date Stop Date Source Paternal grandfather Kidney cancer Victor Manuel Aguirre Social History Social Habit Start Date Stop Date Quantity Comments Source Tobacco use and 2020-06-10 2020-06-10 Never used [facility] 00:[facility]00 00:00:00 Hospital Alcohol intake 2020-06-10 2020-06-10 Current drinker [facility] dist 00:00:00 00:00:00 of alcohol Hospital (finding) Alcohol Comment 2020-02-03 2020-02-03 occ drinker Methodis t 00:00:00 00:00:00 Hospital Social History 2018-10-01 2018-10-01 [facility] crystal 13:53:53 13:53:53 Sex Ass[birth year] At [birth year] [facility] 00:[facility] 00:[facility]00 Hospital Smoking Status Start Date Stop Date Source Never smoker [facility] Medications Ordered Filled Start Stop Current Ordering Indication Dosage Frequency Signature Comments Components Source Medication Medication Date Date Medication? Clinician (SIG) Name Name Hydroxychlo 1-0 Yes 200 mg = 1 Memoria roquine 6-24 tab, PO, l Sulfate 200 20:11: Daily, 0 He rmann MG Oral 00 Refill(s) Tablet Hydroxychlo 2020-0 Yes 200 mg = 1 Memoria roquine 6-24 tab, PO, l Sulfate 200 20:11: Daily, 0 He rmann MG Oral 00 Refill(s) Tablet Hydroxychlo 1-0 Yes 200 mg = 1 Memoria roquine 6-24 tab, PO, l Sulfate 200 20:11: Daily, 0 He rmann MG Oral 00 Refill(s) Tablet Hydroxychlo 2020-0 Yes 200 mg = 1 Memoria roquine 6-24 tab, PO, l Sulfate 200 20:11: Daily, 0 He rmann MG Oral 00 Refill(s) Tablet Hydroxychlo 1-0 Yes 200 mg = 1 Memoria roquine 6-24 tab, PO, l Sulfate 200 20:11: Daily, 0 He rmann MG Oral 00 Refill(s) Tablet 24 HR Yes 400 mg = 2 Memori a topiramate 6-24 cap, PO, l 200 MG 20:06: Bedtime, # Rupal nn Extended 00 180 cap, 2 Release Refill(s), [id number] 167.64, cm, 10/12/20 14:33:00 CDT, Height, 86.818, kg, 10/12/20 14:33:00 CDT, Weight 24 HR Yes 400 mg = 2 Memori a topiramate 6-24 cap, PO, l 200 MG 20:06: Bedtime, # Rupal nn Extended 00 180 cap, 2 Release Refill(s), Capsule Pharmacy: [[facility] #[id number], 167.64, cm, 10/12/20 14:33:00 CDT, Height, 86.818, kg, 10/12/20 14:33:00 CDT, Weight 24 HR Yes 400 mg = 2 Memori a topiramate 6-24 cap, PO, l 200 MG 20:06: Bedtime, # Rupal nn Extended 00 180 cap, 2 Release Refill(s), [id number], 167.64, cm, 10/12/20 14:33:00 CDT, Height, 86.818, kg, 10/12/20 14:33:00 CDT, Weight 24 HR Yes 400 mg = 2 Memori a topiramate 6-24 cap, PO, l 200 MG 20:06: Bedtime, # Rupal nn Extended 00 180 cap, 2 Release Refill(s), [id number], 167.64, cm, 10/12/20 14:33:00 CDT, Height, 86.818, kg, 10/12/20 14:33:00 CDT, Weight 24 HR Yes 400 mg = 2 Memori a topiramate 6-24 cap, PO, l 200 MG 20:06: Bedtime, # Rupal nn Extended 00 180 cap, 2 Release Refill(s), Capsule Pharmacy: [[facility] STORE #[id number], 167.64, cm, 10/12/20 14:33:00 CDT, Height, 86.818, kg, 10/12/20 14:33:00 CDT, Weight omeprazole 2020-0 Yes TAKE ONE Mem oria 40 mg oral 6-24 CAPSULE BY l delayed 19:42: MOUTH [place] release 00 EVERY capsule MORNING mesalamine 0 Yes TAKE 2 Memor ia 500 MG 6-24 CAPSULES l Extended 19:42: BY MOUTH Rupal nn Release 00 TWICE Capsule DAILY [[facility]] omeprazole 0 Yes TAKE ONE Mem oria 40 mg oral 6-24 CAPSULE BY l delayed 19:42: MOUTH [place] release 00 EVERY capsule MORNING mesalamine 2020-0 [...] 6-24 CAPSULE BY l delayed 19:42: MOUTH [place] release 00 EVERY capsule MORNING mesalamine 2020-0 Yes TAKE 2 Memor ia 500 MG 6-24 CAPSULES l Extended 19:42: BY MOUTH Rupal nn Release 00 TWICE Capsule DAILY [Pentasa] Famotidine 2020-0 No 0 Memoria 40 MG Oral 6-24 Refill(s) l Tablet 19:41: Ricardo 00 linaclotide 2020-0 Yes 145 Memori a 0.145 MG 6-24 microgram l Oral 19:41: = 1 cap, Ricardo Capsule 00 PO, Daily, [Linzess] 30 minutes prior to the first meal of the day, # 30 cap, 0 Refill(s) Famotidine 2020-0 No 0 Memoria 40 MG Oral 6-24 Refill(s) l Tablet 19:41: Ricardo linaclotide 2020-0 Yes 145 Memori a 0.145 MG 6-24 microgram l Oral 19:41: = 1 cap, [place] Capsule 00 PO, Daily, [Linzess] 30 minutes prior to the first meal of the day, # 30 cap, 0 Refill(s) Famotidine 2020-0 No 0 Memoria 40 MG Oral 6-24 Refill(s) l Tablet 19:41: [place] 00 linaclotide 2020-0 Yes 145 Memori a 0.145 MG 6-24 microgram l Oral 19:41: = 1 cap, Ricardo Capsule 00 PO, Daily, [Linzess] 30 minutes prior to the first meal of the day, # 30 cap, 0 Refill(s) Famotidine 2020-0 No 0 Memoria 40 MG Oral 6-24 Refill(s) l Tablet 19:41: Ricardo 00 linaclotide 2020-0 Yes 145 Memori a 0.145 MG 6-24 microgram l Oral 19:41: = 1 cap, [place] Capsule 00 PO, Daily, [Linzess] 30 minutes prior to the first meal of the day, # 30 cap, 0 Refill(s) Famotidine No 0 Memoria 40 MG Oral 6-24 Refill(s) l Tablet 19:41: [place] 00 linaclotide Yes 145 Memori a 0.145 MG 6-24 microgram l Oral 19:41: = 1 cap, Ricardo Capsule 00 PO, Daily, [Linzess] 30 minutes prior to the first meal of the day, # 30 cap, 0 Refill(s) 24 HR Yes 200 mg = 1 Memori a topiramate 5-11 cap, PO, l 200 MG 21:45: Daily, # [place] Extended 00 90 cap, 2 Release Refill(s), Capsule Pharmacy: [[facility], 167.64, cm, 04/19/20 14:37: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, Height, 87.273, kg, 08/29/20 16:36:00 CDT, Weight 24 HR Yes 200 mg = 1 Memori a topiramate 5-11 cap, PO, l 200 MG 21:45: Daily, # [place] Extended 00 90 cap, 2 Release Refill(s), Capsule Pharmacy: [[facility]] [facility], 167.64, cm, 04/19/20 14:37: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, Height, 87.273, kg, 08/29/20 16:36:00 CDT, Weight 24 HR Yes 200 mg = 1 Memori a topiramate 5-11 cap, PO, l 200 MG 21:45: Daily, # [place] Extended 00 90 cap, 2 Release Refill(s), Capsule Pharmacy: [[facility]] [facility], 167.64, cm, 04/19/20 14:37: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, Height, 87.273, kg, 08/29/20 16:36:00 CDT, Weight 24 HR Yes 200 mg = 1 Memori a topiramate 5-11 cap, PO, l 200 MG 21:45: Daily, # Ricardo Extended 00 90 cap, 2 Release Refill(s), Capsule Pharmacy: [[facility]] [facility], 167.64, cm, 04/19/20 14:37: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, Height, 87.273, kg, 08/29/20 16:36:00 CDT, Weight 24 HR 2020-0 Yes 200 mg = 1 Memori a topiramate 5-11 cap, PO, l 200 MG 21:45: Daily, # [place] Extended 00 90 cap, 2 Release Refill(s), Capsule Pharmacy: [[facility]] [facility], 167.64, cm, 04/19/20 14:37: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, Height, 87.273, kg, 08/29/20 16:36:00 CDT, Weight apixaban 5 2020-0 Yes 5 mg, PO, Me moria MG Oral 5-11 Q12H, # 60 l Tablet 21:43: tab, 0 [place] [Eliquis] 00 Refill(s), Pharmacy: [facility], 167.64, cm, 04/19/20 14:37: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, Height, 87.273, kg, 08/29/20 16:36:00 CDT, Weight apixaban 5 2020-0 Yes 5 mg, PO, Me moria MG Oral 5-11 Q12H, # 60 l Tablet 21:43: tab, 0 [place] [Eliquis] 00 Refill(s), Pharmacy: [facility], 167.64, cm, 04/19/20 14:37: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, Height, 87.273, kg, 08/29/20 16:36:00 CDT, Weight apixaban 5 2020-0 Yes 5 mg, PO, Me moria MG Oral 5-11 Q12H, # 60 l Tablet 21:43: tab, 0 [place] [Eliquis] 00 Refill(s), Pharmacy: [facility], 167.64, cm, 04/19/20 14:37: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, Height, 87.273, kg, 08/29/20 16:36:00 CDT, Weight apixaban 5 2020-0 Yes 5 mg, PO, Me moria MG Oral 5-11 Q12H, # 60 l Tablet 21:43: tab, 0 Ricardo [Eliquis] 00 Refill(s), Pharmacy: [facility], 167.64, cm, 04/19/20 14:37: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 l ended release 24hr lisdexamfet 2021-0 Yes 50mg QD Take 50 mg Methodi amine 2-[address] (Vyvanse) 18:53: every Hospita 50 MG 53 morning. l capsule famotidine 1-0 Yes 20mg QD Take 20 mg M ethodi (PEPCID) 20 2-[address] MG tablet 18:53: daily. Hospit a 53 l montelukast 1-0 Yes 10mg QD Take 10 mg Methodi (SINGULAIR) 2-[address] 10 mg 18:53: daily. Hospita tablet 53 l acetaminoph 1-0 Yes 500mg Q6H Take 500 M ethodi en (Tylenol 2-[address] Extra 18:53: mouth Hospita Strength) 53 every 6 l 500 MG (six) tablet hours as needed for mild pain. topiramate 1-0 Yes 100mg QD Take 100 Me thodi (Trokendi 2-[address] XR) 100 mg 18:53: mouth Hospit a capsule,ext 53 nightly. l ended release 24hr lisdexamfet 2020-0 Yes 50mg QD Take 50 mg Methodi amine 2-[address] (Vyvanse) 18:53: every Hospita 50 MG 53 morning. l capsule famotidine 2020-0 Yes 20mg QD Take 20 mg M ethodi (PEPCID) 20 2-[address] MG tablet 18:53: daily. Hospit a 53 l montelukast 1-0 Yes 10mg QD Take 10 mg Methodi (SINGULAIR) 2-[address] 10 mg 18:53: daily. Hospita tablet 53 l 24 HR 2019-04 Yes 100 mg = 1 Memori a topiramate 2-30 cap, PO, l 100 MG 21:09: Bedtime, # Rupal nn Extended 00 90 cap, 2 Release Refill(s), Capsule Pharmacy: [[facility]] [facility] #[id number], 167.64, cm, 04/19/20 14:37: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, Height, 104.545, kg, 04/19/20 14:37: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, Weight 24 HR 2019-04 Yes 100 mg = 1 Memori a topiramate 2-30 cap, PO, l 100 MG 21:09: Bedtime, # Rupal nn Extended 00 90 cap, 2 Release Refill(s), [id number], 167.64, cm, 04/19/20 14:37: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, Height, 104.545, kg, 04/19/20 14:37: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, Weight 24 HR 2019-04 Yes 100 mg = 1 Memori a topiramate 2-30 cap, PO, l 100 MG 21:09: Bedtime, # Rupal nn Extended 00 90 cap, 2 Release Refill(s), [id number], 167.64, cm, 04/19/20 14:37: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, Height, 104.545, kg, 04/19/20 14:37: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, Weight 24 HR 2019-04 Yes 100 mg = 1 Memori a topiramate 2-30 cap, PO, l 100 MG 21:09: Bedtime, # Rupal nn Extended 00 90 cap, 2 Release Refill(s), [facility][id number], 167.64, cm, 04/19/20 14:37: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, Height, 104.545, kg, 04/19/20 14:37: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, Weight 24 HR 2019-04 Yes 100 mg = 1 Memori a topiramate 2-30 cap, PO, l 100 MG 21:09: Bedtime, # Rupal nn Extended 00 90 cap, 2 Release Refill(s), [id number], 167.64, cm, 04/19/20 14:37: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, Height, 104.545, kg, 04/19/20 14:37: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, Weight Famotidine 2019-04 Yes 40 mg, PO, M emoria 2-30 Daily, # l 20:40: 60 tab, 0 Ricardo 00 Refill(s) Nulev 2019-04 Yes 0.125 mg, Memoria 2-30 PO, QID, 0 l 20:40: Refill(s) Ricardo 00 Famotidine 2019-04 Yes 40 mg, PO, M [...] 0 Memoria 1-10 Refill(s) l 18:04: metoclopram 2019-04- No 1{tbl} Take 1 M ethodi dung HCl 1-06-[address] (REGLAN 00:00: 00:00 mouth as Hospi ta ORAL) 00 :00 needed. l metoclopram 2019-04- No 1{tbl} Take 1 M ethodi dung HCl 1-10 06-[address] (REGLAN 00:00: 00:00 mouth as Hospi ta ORAL) 00 :00 needed. l omeprazole 2019-04- No 20mg QD Take 1 Meth tanvi OTC 0-28 11-28 tablet (20 st (PriLOSEC 00:00: 05:59 mg total) Ho spita OTC) 20 MG 00 :00 by mouth l EC tablet daily for 30 days. omeprazole 2019-04- No 20mg QD Take 1 Meth tanvi OTC 0-28 11-28 tablet (20 st (PriLOSEC 00:00: 05:59 mg total) Ho spita OTC) 20 MG 00 :00 by mouth l EC tablet daily for 30 days. metoclopram 2019- 2020- No 5mg [id number] Take 1 Methodi dung 0-28 11-03 [id number] tablet (5 st (Reglan) 5 00:00: 05:59 3D mg total) H ospita MG tablet 00 :00 by mouth 3 l (three) times a day as needed (nausea, vomiting) for up to 5 days. metoclopram 2019-2019- No 5mg Q.[id number] Take 1 Methodi dung 0-28 11-03 [id number] tablet (5 st (Reglan) 5 00:00: 05:59 3D mg total) H ospita MG tablet 00 :00 by mouth 3 l (three) times a day as needed (nausea, vomiting) for up to 5 days. lisdexamfet 2019-2019- No 40mg QD Take 40 mg Methodi amine 0-26 10-[address] (VYVANSE) 18:16: 00:00 daily. Hospi ta 40 MG 29 :00 (per l capsule patient, stopped taking it last week - unknown reason); (per [place] [facility], last filled 12/18/19, quantity: 30, day supply: 30) lisdexamfet 2019- 2020- No 40mg QD Take 40 mg Methodi amine 0-26 10-[address] (VYVANSE) 18:16: 00:00 daily. Hospi ta 40 MG 29 :00 (per l capsule patient, stopped taking it last week - unknown reason); (per [place] [facility], last filled 12/18/19, quantity: 30, day supply: 30) topiramate 2019-04- No 1{capsu QD Take 1 M ethodi (Trokendi 0-20 10-20 le} capsule by st XR) 100 mg 23:40: 00:00 mouth Hospi ta capsule,ext 28 :00 daily. l ended (Patient release stopped 24hr taking this medication in the summer because she ran out of it) OXCARBAZEPI 2019-04- No (Patient M ethodi NE ORAL 0-20 10-[address] 23:40: 00:00 taking Hospita 28 :00 this l medication in the summer because she ran out of it) atropine 1 2019-04- No 1[drp] Q.5D Administer Methodi % 0-20 10-[address] ophthalmic 23:40: 00:00 the right H ospita solution 28 :00 eye 2 l (two) times a day. (start date: ~3 weeks ago - per patient) topiramate 2019-04- No 1{capsu QD Take 1 M ethodi (Trokendi 0-20 10-20 le} capsule by st XR) 100 mg 23:40: 00:00 mouth Hospi ta capsule,ext 28 :00 daily. l ended (Patient release stopped 24hr taking this medication in the summer because she ran out of it) OXCARBAZEPI 2019-04- No (Patient M ethodi NE ORAL 0-20 10-[address] 23:40: 00:00 taking Hospita 28 :00 this l medication in the summer because she ran out of it) atropine 1 2019-04- No 1[drp] Q.5D Administer Methodi % 0-20 10-[address] ophthalmic 23:40: 00:00 the right H ospita solution 28 :00 eye 2 l (two) times a day. (start date: ~3 weeks ago - per patient) metoclopram 2019-04- No 5mg [id number] Take 1 Methodi dung 0-20 02-15 [id number] tablet (5 st (Reglan) 5 00:00: 00:00 3D mg total) H ospita MG tablet 00 :00 by mouth 3 l (three) times a day as needed (nausea, vomiting) for up to 5 days. metoclopram 2020-1 2020- No 5mg Q.[id number] Take 1 Methodi dung 0-20 10-28 [id number] tablet (5 st (Reglan) 5 00:00: 00:00 3D mg total) H ospita MG tablet 00 :00 by mouth 3 l (three) times a day as needed (nausea, vomiting) for up to 5 days. Vyvanse Vyvanse 2019-0 Yes Na Savage [address] [facility]- Yes 300 mg = 1 Memoria ne 300 MG 9-06 tab, PO, l Oral Tablet 16:04: BID, # 180 Ricardo [Trileptal] 19 tab, 3 Refill(s), Pharmacy: [facility] #[id number] oxcarbazepi 2018- Yes 300 mg = 1 Memoria ne 300 MG 9-06 tab, PO, l Oral Tablet 16:04: BID, # 180 Ricardo [Trileptal] 19 tab, 3 Refill(s), [id number] oxcarbazepi Yes 300 mg = 1 Memoria ne 300 MG 9-06 tab, PO, l Oral Tablet 16:04: BID, # 180 [place] [Trileptal] 19 tab, 3 Refill(s), Pharmacy: [facility] #[id number] oxcarbazepi Yes 300 mg = 1 Memoria ne 300 MG 9-06 tab, PO, l Oral Tablet 16:04: BID, # 180 [place] [Trileptal] 19 tab, 3 Refill(s), [id number] oxcarbazepi 2018- Yes 300 mg = 1 Memoria ne 300 MG 9-06 tab, PO, l Oral Tablet 16:04: BID, # 180 Ricardo [Trileptal] 19 tab, 3 Refill(s), [id number] 24 HR Yes 100 mg = 1 Memori a topiramate 9-06 cap, PO, l 100 MG 16:04: Daily, # Ricardo Extended 10 90 cap, 3 Release Refill(s), Capsule Pharmacy: [[facility]ro[facility]] [facility] #[id number] 24 HR 2018-0 Yes 100 mg = 1 Memori a topiramate 9-06 cap, PO, l 100 MG 16:04: Daily, # [place] Extended 10 90 cap, 3 Release Refill(s), Capsule Pharmacy: [[facility] #[id number] 24 HR 0 Yes 100 mg = 1 Memori a topiramate 9-06 cap, PO, l 100 MG 16:04: Daily, # [place] Extended 10 90 cap, 3 Release Refill(s), Capsule Pharmacy: [[facility] #[id number] 24 HR 0 Yes 100 mg = 1 Memori a topiramate 9-06 cap, PO, l 100 MG 16:04: Daily, # [place] Extended 10 90 cap, 3 Release Refill(s), Capsule Pharmacy: [[facility] #[id number] 24 HR 0 Yes 100 mg = 1 Memori a topiramate 9-06 cap, PO, l 100 MG 16:04: Daily, # Ricardo Extended 10 90 cap, 3 Release Refill(s), Capsule Pharmacy: [[facility] #[id number] 24 HR 2019-0 No 100 mg = 1 Memori a topiramate 9-04 cap, PO, l 100 MG 18:31: Daily, X [place] Extended 30 day, # Release 30 cap, 3 Capsule Refill(s), [Trokendi] Pharmacy: [facility] 24 HR 2019-0 No 100 mg = 1 Memori a topiramate 9-04 cap, PO, l 100 MG 18:31: Daily, X Ricardo Extended 30 day, # Release 30 cap, 3 Capsule Refill(s), [Trokendi] Pharmacy: [facility] 24 HR 2019-0 No 100 mg = 1 Memori a topiramate 9-04 cap, PO, l 100 MG 18:31: Daily, X [place] Extended 30 day, # Release 30 cap, 3 Capsule Refill(s), [[facility]ro[facility]endi] Pharmacy: [facility] 24 HR 2019-0 No 100 mg = 1 Memori a topiramate 9-04 cap, PO, l 100 MG 18:31: Daily, X [place] Extended 05 30 day, # Release 30 cap, 3 Capsule Refill(s), [[facility]ro[facility]endi] Pharmacy: [facility] 24 HR No 100 mg = 1 Memori a topiramate 9-04 cap, PO, l 100 MG 18:31: Daily, X [place] Extended 05 30 day, # Release 30 cap, 3 Capsule Refill(s), [[facility]ro[facility]] Pharmacy: [facility] No 300 mg = 1 Memoria ne 300 MG 9-04 tab, PO, l Oral Tablet 18:31: BID, X 30 H ermann [Trileptal] 02 day, # 60 tab, 3 Refill(s), Pharmacy: [facility] No 300 mg = 1 Memoria ne 300 MG 9-04 tab, PO, l Oral Tablet 18:31: BID, X 30 H ermann [Trileptal] 02 day, # 60 tab, 3 Refill(s), Pharmacy: [facility] No 300 mg = 1 Memoria ne 300 MG 9-04 tab, PO, l Oral Tablet 18:31: BID, X 30 H ermann [Trileptal] 02 day, # 60 tab, 3 Refill(s), Pharmacy: [facility] No 300 mg = 1 Memoria ne 300 MG 9-04 tab, PO, l Oral Tablet 18:31: BID, X 30 H ermann [Trileptal] 02 day, # 60 tab, 3 Refill(s), Pharmacy: [facility] No 300 mg = 1 Memoria ne 300 MG 9-04 tab, PO, l Oral Tablet 18:31: BID, X 30 H ermann [Trileptal] 02 day, # 60 tab, 3 Refill(s), Pharmacy: [facility] lisdexamfet Yes 30 mg = 1 [...] 00 30 cap, 2 capsule Refill(s), Pharmacy: [facility] omeprazole Yes 20 mg = 1 Me moria 20 mg oral 7-17 cap, PO, l delayed 00:27: Daily, # Murray n release 00 30 cap, 2 capsule Refill(s), Pharmacy: [facility] omeprazole Yes 20 mg = 1 Me moria 20 mg oral 7-17 cap, PO, l delayed 00:27: Daily, # Murray n release 00 30 cap, 2 capsule Refill(s), Pharmacy: [facility] [place] omeprazole Yes 20 mg = 1 Me moria 20 mg oral 7-17 cap, PO, l delayed 00:27: Daily, # Murray n release 00 30 cap, 2 capsule Refill(s), Pharmacy: [facility] omeprazole Yes 20 mg = 1 Me moria 20 mg oral 7-17 cap, PO, l delayed 00:27: Daily, # Murray n release 00 30 cap, 2 capsule Refill(s), [facility] 300 mg = 1 Memoria ne 300 MG 7-03 tab, PO, l Oral Tablet 18:01: BID, # 60 H ermann [Trileptal] 00 tab, 2 Refill(s), Pharmacy: [facility] Yes 300 mg = 1 Memoria ne 300 MG 7-03 tab, PO, l Oral Tablet 18:01: BID, # 60 H ermann [Trileptal] 00 tab, 2 Refill(s), Pharmacy: [facility] Yes 300 mg = 1 Memoria ne 300 MG 7-03 tab, PO, l Oral Tablet 18:01: BID, # 60 H ermann [Trileptal] 00 tab, 2 Refill(s), Pharmacy: [facility] Yes 300 mg = 1 Memoria ne 300 MG 7-03 tab, PO, l Oral Tablet 18:01: BID, # 60 H ermann [Trileptal] 00 tab, 2 Refill(s), Pharmacy: [facility] Yes 300 mg = 1 Memoria ne 300 MG 7-03 tab, PO, l Oral Tablet 18:01: BID, # 60 H ermann [Trileptal] 00 tab, 2 Refill(s), Pharmacy: [facility] Yes 100 mg = 1 Memori a topiramate 6-28 cap, PO, l 100 MG 14:50: Daily, # [place] Extended 00 30 cap, 3 Release Refill(s), Capsule Pharmacy: [[facility]] [facility] Yes 100 mg = 1 Memori a topiramate 6-28 cap, PO, l 100 MG 14:50: Daily, # Rciardo Extended 00 30 cap, 3 Release Refill(s), Capsule Pharmacy: [[facility]] [facility] Yes 100 mg = 1 Memori a topiramate 6-28 cap, PO, l 100 MG 14:50: Daily, # [place] Extended 00 30 cap, 3 Release Refill(s), Capsule Pharmacy: [[facility]] [facility] 24 HR 2019-0 Yes 100 mg = 1 Memori a topiramate 6-28 cap, PO, l 100 MG 14:50: Daily, # [place] Extended 00 30 cap, 3 Release Refill(s), Capsule Pharmacy: [[facility]] [facility] 24 HR Yes 100 mg = 1 Memori a topiramate 6-28 cap, PO, l 100 MG 14:50: Daily, # [place] Extended 00 30 cap, 3 Release Refill(s), [facility] Me moria 25 MG Oral 6-14 tab, PO, l Tablet 23:33: BID, # 60 [place] n [Topamax] 00 tab, 2 Refill(s), [facility] = 1 Me moria 25 MG Oral 6-14 tab, PO, l Tablet 23:33: BID, # 60 Murray n [Topamax] 00 tab, 2 Refill(s), Pharmacy: [facility] topiramate Yes 25 mg = 1 Me moria 25 MG Oral 6-14 tab, PO, l Tablet 23:33: BID, # 60 Murray n [Topamax] 00 tab, 2 Refill(s), [facility] 1 Me moria 25 MG Oral 6-14 tab, PO, l Tablet 23:33: BID, # 60 Murray n [Topamax] 00 tab, 2 Refill(s), [facility] = 1 Me moria 25 MG Oral 6-14 tab, PO, l Tablet 23:33: BID, # 60 Murray n [Topamax] 00 tab, 2 Refill(s), Pharmacy: [facility] Phenytoin Yes 200 mg = 2 Me moria sodium 100 6-13 cap, PO, l MG Extended 13:57: BID, # 120 [place] Release 00 cap, 3 Capsule Refill(s), [Dilantin] Pharmacy: [facility] Phenytoin Yes 200 mg = 2 Me moria sodium 100 6-13 cap, PO, l MG Extended 13:57: BID, # 120 [place] Release 00 cap, 3 Capsule Refill(s), [Dilantin] Pharmacy: [facility] Phenytoin Yes 200 mg = 2 Me moria sodium 100 6-13 cap, PO, l MG Extended 13:57: BID, # 120 [place] Release 00 cap, 3 Capsule Refill(s), [Dilantin] Pharmacy: [facility] Phenytoin Yes 200 mg = 2 Me moria sodium 100 6-13 cap, PO, l MG Extended 13:57: BID, # 120 [place] Release 00 cap, 3 Capsule Refill(s), [Dilantin] Pharmacy: [facility] Phenytoin Yes 200 mg = 2 Me moria sodium 100 6-13 cap, PO, l MG Extended 13:57: BID, # 120 [place] Release 00 cap, 3 Capsule Refill(s), [Dilantin] Pharmacy: [facility] Alprazolam 2018- Yes 0.5 mg = 1 M emoria 0.5 MG Oral 6-13 tab, PO, l Tablet 13:28: TID, 0 Ricardo [Xanax] 00 Refill(s) Zyrtec 2019-0 Yes Daily, 0 Memoria 6-13 Refill(s) l 13:28: Ricardo Alprazolam 2019-0 Yes 0.5 mg = 1 M emoria 0.5 MG Oral 6-13 tab, PO, l Tablet 13:28: TID, 0 [place]ardo [Xanax] 00 Refill(s) Zyrtec 2019-0 Yes Daily, 0 Memoria 6-13 Refill(s) l 13:28: [place]ardo Alprazolam 2019-0 Yes 0.5 mg = 1 M emoria 0.5 MG Oral 6-13 tab, PO, l Tablet 13:28: TID, 0 [place] [Xanax] 00 Refill(s) Zyrtec 2019-0 Yes Daily, 0 Memoria 6-13 Refill(s) l 13:28: [place] Alprazolam 2019-0 Yes 0.5 mg = 1 M emoria 0.5 MG Oral 6-13 tab, PO, l Tablet 13:28: TID, 0 [place]ardo [Xanax] 00 Refill(s) Zyrtec Yes Daily, 0 Memoria 6-13 Refill(s) l 13:28: [place] 00 Alprazolam Yes 0.5 mg = 1 M emoria 0.5 MG Oral 6-13 tab, PO, l Tablet 13:28: TID, 0 [place] [Xanax] 00 Refill(s) Zyrtec Yes Daily, 0 [...] ts Source Name Name Fozia 2020-06-10 [facility] 00[facility]00 [facility] FLUCELVAX QUAD PF 2020-02-[address] 00:00:00 [facility] FLUCELVAX QUAD PF 2020-02-[address] 00:[facility]:00 Hospital Influenza Split Completed MD Charles on 00:00:00 Vital Signs Vital Name Observation Time Observation Value Comments Source Height 2020-10-12 19:27:00 167.64 cm [facility] [place] Weight 2020-10-12 19:27:00 [facility] [place] BMI Calculated 2020-10-12 19:27:00 [facility] [place] Systolic (mm Hg) 2020-10-12 19:27:00 Unruly rial [place] Diastolic (mm Hg) 2020-10-12 19:27:00 Mem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 .3.435356 l .8 2020-02-03 2020-02-03 Telephone García, 1.2.840.1 [id number] [id number] Method 00:00:00 00:00:00 Gabby 21089.1.1 [facility] st 3.430.2.7 Hospit a .3.315664 l .8 2020-01-17 2020-01-17 [id number]00 [facility] l Outpati ent Clinics 2019-12-14 2019-12-14 [facility] [id number] 10:48:00 10:48:[address] [facility] Medicine l Medicine Outpati ent Clinics 2019-11-23 2019-11-23 [facility] [id number] 09:00:00 09:00:[address] [facility] Medicine l Medicine Outpati ent Clinics 2019-11-23 2019-11-23 [facility] [id number] 08:05:00 08:05[facility]00 [facility] from[facility]to[facility] Medicine Outpati ent Clinics 2019-10-15 2019-10-15 [facility] [id number] 08:44:00 08:44:00 t [employer] [facility] Medicine Outpati ent Clinics 2019-09-07 2019-09-07 [facility] [id number] 11:56:00 11:56:00 t [facility] Medicine Outpati ent Clinics 2019-08-13 2019-08-13 [facility] [id number] 10:20:00 10:20:00 t [employer] [facility] Medicine Outpati ent Clinics 2019-08-12 2019-08-12 [facility] [id number] 09:49:00 09:49:00 t [employer] [facility] l Medicine Outpati ent Clinics 2019-06-15 2019-06-15 [facility] [id number] 15:24:00 15:24:00 t [employer] [facility] Medicine Outpati ent Clinics 2019-06-09 2019-06-09 [facility] [id number] 08:40:00 08:40:[address] [facility] [facility] [address] [place] [address] [facility] Medicine Outpati ent Clinics 2019-06-03 2019-06-03 [facility] [id number] 10:52:00 10:52:00 t [employer] s - Drive [facility] Medicine Outpati ent Clinics 2019-05-28 2019-05-28 [facility] [id number] 16:20:00 16:20:00 t [employer] - Numerous [facility] Medicine Outpati ent Clinics 2019-05-21 2019-05-23 Outside nullFlavo MNA [id number] Memoria 20:44:00 05:59:59 Medical r Neurology 00 l Records Ean Lrann 2019-05-21 2019-05-23 Outside nullFlavo MNA [id number] Memoria 20:44:00 05:59:59 Medical r Neurology 00 l Records Ean Silva 2019-05-21 2019-05-22 Outpatient MHMISCHER MHMISCHER [id number] 14:44:00 23:59:59 00 2019-04-28 2019-04-28 Ambulatory nullFlavo MNA [id number] Memoria 19:00:00 19:00:00 Pre-Reg r Neurology 05 l Ean Silva 2019-04-28 2019-04-28 Ambulatory nullFlavo MNA [id number] Memoria 19:00:00 19:00:00 Pre-Reg r Neurology 05 l Ean Silva 2019-04-28 2019-04-28 Outpatient MHIE MHIE [id number] Memoria 13:00:00 13:00:00 05 l [place] 2019-04-28 2019-04-28 Outpatient Juliet MISCHER MHMISCHER [id number] 13:00:00 13:00:00 David Rick Marck 2019-01-01 2019-01-01 [facility] [id number] 15:32:00 15:32:00 [employer] [facility] Medicine Outpati ent Clinics 2018-12-31 2018-12-31 [facility] [id number] 09:55:00 09:55:00 t [place] [employer] s - Drive [facility] Medicine Outpati ent Clinics 2018-12-30 2018-12-30 [facility] [id number] 13:25:00 13:25:00 t [place] [employer] s - Drive [facility] Medicine Outpati ent Clinics 2018-12-30 2018-12-30 [facility] [id number] 08:00:00 08:00:00 t [place] [employer] s - Drive [facility] Medicine Outpati ent Clinics 2018-12-29 2018-12-29 [facility] [id number] 09:42:00 09:42:00 t [place] [employer] s - Drive [facility] Medicine Outpati ent Clinics 2018-12-23 2018-12-24 Outpatient nullFlavo MNA [id number] Memoria 18:15:00 04:59:59 r Neurology 04 l Ean Silva 2018-12-23 2018-12-24 Outpatient nullFlavo MNA [id number] Memoria 18:15:00 04:59:59 r Neurology 04 l Ean Silva 2018-12-23 2018-12-23 Outpatient DEDE ChungSCHBINU MISCHER [id number] 13:15:00 23:59:59 David Catrina Acharya 2018-12-23 2018-12-23 Outpatient MHIE IE [id number] [facility] 13:15:00 13:15:00 Catrina Silva 2018-12-04 2018-12-04 [facility] [id number] 16:20:00 16:20:00 t [place] [employer] s - Drive [facility] Medicine Outpati ent Clinics 2018-11-30 2018-11-30 [facility] [id number] 10:08:00 10:08:00 t [facility] Outpati ent Clinics 2018-11-27 2018-11-28 Outpatient nullFlavo MNA [id number] Memoria 15:45:00 04:59:59 r Neurology 03 l Ean Silva 2018-11-27 2018-11-28 Outpatient nullFlavo MNA [id number] Memoria 15:45:00 04:59:59 r Neurology 03 matt Silva 2018-11-27 2018-11-27 Outpatient DEDE ChungSCHER MISCHER [id number] 10:45:00 23:59:59 David 03 [place] 2018-11-27 2018-11-27 [facility] [id number] 13:00:00 13:00:00 [employer] [facility] ent [facility] 2018-11-27 2018-11-27 Outpatient MHIE MHIE [id number] Memoria 10:45:00 10:45:00 03 matt [place] 2018-10-29 2018-10-29 [facility] [id number] 10:40:00 10:40:00 [employer] [facility] ent [facility] 2018-10-16 2018-10-17 Outpatient nullFlavo MNA [id number] Memoria 14:00:00 04:59:59 r Neurology 02 l Ean [place] 2018-10-16 2018-10-17 Outpatient nullFlavo MNA [id number] Memoria 14:00:00 04:59:59 r Neurology 02 l Ean [place] 2018-10-16 2018-10-16 Outpatient DEDE ChungSCHER MISCHER [id number] 09:00:00 23:59:59 David 02 [place] 2018-10-16 2018-10-16 Outpatient MHIE MHIE [id number] Memoria 09:00:00 09:00:00 02 matt [place] 2018-10-02 2018-10-03 Outpatient nullFlavo MNA [id number] Memoria 20:00:00 04:59:59 r Neurology 01 matt [place] 2018-10-02 2018-10-03 Outpatient nullFlavo MNA [id number] Memoria 20:00:00 04:59:59 r Neurology 01 matt [place] 2018-10-02 2018-10-02 Outpatient DEDE ChungSCHER MHMISCHER [id number] 15:00:00 23:59:59 David Marck 2018-10-02 2018-10-02 Outpatient MHIE MHIE [id number] Memoria 15:00:00 15:00:00 01 l [place] 2018-10-01 2018-10-02 Outpatient nullFlavo MNA [id number] Memoria 13:15:00 04:59:59 r Neurology 00 l Ean Lrann 2018-10-01 2018-10-02 Outpatient nullFlavo MNA [id number] Memoria 13:15:00 04:59:59 r Neurology 00 l [place] 2018-10-01 2018-10-01 Outpatient ASIF Chung [facility] [id number] 08:15:00 23:59:59 David Jessica Acharya 2018-10-01 2018-10-01 Outpatient MHIE MHIE [id number] Memoria 08:15:00 08:15:00 00 matt [place] 2018-09-30 2018-09-30 [facility] [id number] 13:00:00 13:00:00 [place] [employer] [place] s - Drive [facility] Medicine Medicine Outpati ent Clinics 2018-08-31 2018-08-31 [facility] [id number] 11:00:00 11:00:00 t [place] [employer] [place] s - Drive [facility] Medicine l Medicine Outpati ent Clinics 2018-07-27 2018-07-27 [facility] [id number] 13:54:00 13:54:00 t [place] [employer] [place] s - Drive [facility] Medicine l Medicine Outpati ent Clinics 2018-07-23 2018-07-23 [facility] [id number] 08:53:00 08:53:00 [place] [address] Luke s - Drive [facility] Medicine l Medicine Outpati ent Clinics 2018-07-23 2018-07-23 [facility] [id number] 08:15:00 08:15:00 [place] [address] Luke s - Drive [facility] Medicine l Medicine Outpati ent Clinics 2018-06-22 2018-06-22 [facility] [id number] [facility] 10:30:00 10:30:00 t [place] [employer] [place] s - Drive [facility] Medicine l Medicine Outpati ent Clinics 2018-05-04 2018-05-04 [facility] [id number] 12:00:00 12:00:00 [facility] ent [facility] 2018-04-02 2018-04-02 Outpatient Nicholas Stringer [id number] 09:00:00 09:00:00 [facility] Results Test Description Test Time Test [...] spinal canal or neural foraminal stenosis.[id number] MRI Thoracic 2020-05-22 EXAMINATION: MRI Metho dist [...] spinal canal or neural foraminal stenosis. [id number] Interface, Radiology Results 06/06/2020 5:16 PM CST [...] spine abnormality identified. No enhancing lesion identified. [id number] Interface, Radiology Results - 06/06/2020 5:11 PM [...] cervical spine abnormality identified. No enhancing lesion identified.[id number] MRI Cervical 2020-05-22 EXAMINATION: MRI Method ist [...] spine abnormality identified. No enhancing lesion identified. [id number] Interface, Radiology Results - 06/06/2020 5:11 PM [...] Brain W Wo 2020-05-22 EXAMINATION: MRI Met hodist Contrast 6 BRAIN W WO CONTRAST Hospi gladys 22:41:58 CLINICAL HISTORY: RIght sided hemiparesis hemisensory [...] acute intracranial abnormality. [id number]_PS02Hm Interface, Radiology Results Incoming 06/06/2020 4:45 PM CST EXAMINATION: MRI BRAIN [...] lesion or other acute intracranial abnormality.1M2RAD_PS 02 MRI Brain W Wo 2020-05-22 EXAMINATION: MRI Met hodist Contrast 6 BRAIN W WO CONTRAST Hospi gladys 22:41:58 CLINICAL HISTORY: RIght sided hemiparesis hemisensory [...] acute intracranial abnormality. [id number]_PS02Hm Interface, Radiology Results Incoming 06/06/2020 4:45 PM CST EXAMINATION: MRI BRAIN [...] this is compatible with mild Covid pneumonia. [facility]-[id number] Interface, Radiology Results - 06/06/2020 12:11 PM CST EXAMINATION: CT [...] findings, this is compatible with mild Covid pneumonia.[facility]-[id number] 0LD CT Chest Wo 2020-05-22 EXAMINATION: CT CHEST [...] this is compatible with mild Covid pneumonia. [facility]-[id number] Interface, Radiology Results 06/06/2020 12:11 PM CST EXAMINATION: CT CHEST [...] findings, this is compatible with mild Covid pneumonia.[facility]-[id number] 0LD Urine culture 2020-06-04 18:51:05 Test Item Value Reference Range Interpretation Comme nts Urine culture (test code = [id number]) SEE COMMENT [facility]uria screen negative. [facility] [id number] 18:51:05 Test Item Value Reference Range Interpretation Comments Urine culture (test SEE COMMENT Bacteriu kieran screen code = [id number]) negative. [facility] Optic Nerve - [id number] 19:34:42Isidro Ruby MD - 05/24/2020 5:54 PM CSTFormatting of this note might be different from the origi nal.[facility] Optic Nerve - [id number] 19:34:42Isidro Ruby MD - 05/24/2020 5:54 PM CST [facility] Visual Field, Extended - [id number] 19:34:39Isidro Ruby MD - 05/24/2020 5:54 PM CST [facility], Extended - [id number] 19:34:39Isidro Ruby MD - 05/24/2020 5:54 PM CST [place] [address] in 1 [id number] 16:07:52 Test Item Value Reference Range Interpretation Comments SUPPLIER NAME (test XMED Oxygen and code = 6415) Medical SUPPLIER PHONE (test [phone] code = 6416) ORDER STATUS (test code Delivery Successful = 6417) DELIVERY NOTE (test code = 6419) REQUESTED DELIVEY DATE 02/16/2020 (test code = 6420) ITEM DESCRIPTION (test 3 in 1 Commode Qty : 1 code = 6423) ACTUAL DELIVERY DATE 02/16/2020 (test code = 6422) [facility] in 1 [id number] 16:07:52 Test Item Value Reference Range Interpretation Comments SUPPLIER NAME (test [employer]MED Oxygen and code = 6415) Medical SUPPLIER PHONE (test [phone] code = 6416) ORDER STATUS (test code Delivery Successful = 6417) DELIVERY NOTE (test code = 6419) REQUESTED DELIVEY DATE 02/16/2020 (test code = 6420) ITEM DESCRIPTION (test 3 in 1 Commode Qty : 1 code = 6423) ACTUAL DELIVERY DATE 02/16/2020 (test code = 6422) [facility] [id number] 18:23:11[facility] and [facility] Neurological [address],[place], [place]: F : Patient: Snow Argueta Physician: Nicolasa [...] Site: Wrist Pk Lat (ms) Amp (uV)Stim Ckzr8of dig 2.5 21.0 Sensory Nerve Study Right [...] Tibial Nerve Left Tibial Nerve Right Tibial [facility]erveTexas [facility] [id number] 18:23:11Electromyogram and NCS [facility] Neurological [address]hxv[address]Sc[address],[id number]: F: Patient: Snow Argueta Physician: Nicolasa Walters MDAge: 34 Test Date: 02/15/20ex: Female Height: 66 inchesWeight: 220 lbsRef. M.D.: Fior Batista, [...] Area (mVms) Dist (mm) C.V. (m/s)Stim SiteAnkle 5.1 8.6 30.7 Pop.Fos. 14.9 7.7 31.9 375 41.2 Sensory Nerve Study Right Median NerveRec Site: Wrist Pk Lat (ms) Amp (uV)Stim SiteThumb 2.8 26.0 Sensory Nerve Study Right Ulnar NerveRec Site: Wrist Pk Lat (ms) Amp (uV)Stim Qfft4wq dig 2.5 21.0 Sensory Nerve Study Right Radial NerveRec Site: Wrist Pk Lat (ms) Amp (uV)Stim SiteIndex 2.1 24.0 Sensory Nerve Study Left Sural NerveRec Site: Ankle Pk Lat (ms) Amp (uV)Stim Sitemid calf 5.0 12.3 Sensory Nerve Study Right Sural Ne rveRec Site: Ankle Pk Lat (ms) Amp (uV)Stim [...] LatencyStim Site: Ankle ms F wave 49.50F-M NRF-Wave Study Right Peroneal NerveRec Site: EDB LatencyStim [...] Site: Pop.Fos. ms M wave 7.33H wave 33.83 EMG StudySignificantly limited due to patient's poor-none [...] Tibial Nerve Left Tibial Nerve [facility] evoked [id number] 15:07:24 PATTERN REVERSAL VISUAL EVOKED POTENTIAL REPORT Patient Name: Snow Argueta Date of : 1985 Gender: female Date of Procedure: 02/14/2020 IndicationVision loss FindingsPattern reversal visual evoked potentials were obtained following independent left and right full field monocularstimulation. [id number] absolute latencies were 99.8 msec and 102.6 msec following independent left andright eye stimulation. All interpeak latencies and waveform morphologies were normal. ImpressionThisis a normal study. ICD10 Code/Diagnosis: [id number] [place] Visual evoked [id number] 15:07:24 PATTERN REVERSAL VISUAL EVOKED POTENTIAL REPORT Patient Name: Snow Argueta Date of : 1985 Gender: female Date of Procedure: 02/14/2020 IndicationVision loss FindingsPattern reversal visual evoked potentials were obtained following independent left and right full field monocularstimulation. [id number] absolute latencies were 99.8 msec and 102.6 msec following independent left andright eye stimulation. All interpeak latencies and waveform morphologies were normal. ImpressionThisis a normal study. ICD10 Code/Diagnosis: [id number] [facility] Lumbar Spine W Wo [id number] 16:16:59EXAMINATION: MRI LUMBAR SPINE W WO CONTRAST [...] on the right.Recommend correlation to radiculopathy distribution. [facility]-[id number] Interface, Radiology Results 02/13/2020 11:20 AM CDT [...] Mild to moderate facet arthrosis is noted bilateral ly.L5-S1: No significant posterior disc disease, spinal canal, subarticular zone, or neural foraminal stenosis. Moderate facet arthrosis is noted bilaterally.Evaluation of other visualized levels demonstrates no significant posterior disc disease, spinal canal, subarticular zone, or neural foraminal st enosis.IMPRESSION: Mild right neural foraminal stenosis at L4-L5 secondary to foraminal disc protrusion, including questionable contact of the exiting L4 nerve root on the right. Recommend correlation to radiculopathy distribution.[facility]-[id number] [facility] Medical Center Lumbar Spine W Wo Contrast 2020-02-13 16:16:59EXAMINATION: MRI LUMBAR SPINE W WO CONTRAST [...] zone, or neural foraminal stenosis. L2-L3: No sig nificant posterior disc disease, spinal canal, subarticular zone, [...] on the right.Recommend correlation to radiculopathy distribution. [facility]- [id number] Interface, Radiology Results - 02/13/2020 11:20 AM [...] spinal canal, subarticular zone, or neural foraminal stenosis.L3- L4: No significantposterior disc disease, spinal canal, subarticular [...] on the right. Recommend correlation to radiculopathy distribution.[facility]-[id number] Regional Medical Center Brain [id number] 14:57:03EXAM: MRI BRAIN VENOGRAM CLINICAL HISTORY: Headache chronic normal neuro exam TECHNIQUE: Head MRvenogram using 2D rtgk-gj-ybfznq technique with multi-planar MIP and 3D reconstruction. [...] evidence of dural sinus venous thrombosis. [id number] Interface, Radiology Results 02/13/2020 10:00 AM CDT EXAM: MRI BRAIN VENOGRAMCLINICAL HISTORY: Headache chronic normal neuro examTECHNIQUE: Head MR venogram using 2D wsvf-ub-eaecuu technique with multi-planar MIP and 3D reconstruction.COMPARISON: [...] no definite evidence of dural sinus venous thrombosis.[id number]_PS01[facility] Brain Venogram 2020-02-13 14:57:03EXAM: MRI BRAIN VENOGRAM CLINICAL HISTORY: Headache chronic normal neuro exam TECHNIQUE: Head MRvenogram using 2D cewv-fc-uiajoj technique with multi-planar MIP and 3D reconstruction. [...] neuro examTECHNIQUE: Head MR venogram using 2D rmsd-dt-fooyod technique with multi-planar MIP and 3D reconstruction.COMPARISON: [...] evidence of dural sinus venous thrombosis.[id number],DX [place] [id number] 15:39:11CFamilia hickey RN 02/08/2020 10:40 AMMidline Date/Time: [...] TotalCatheter Length (cm): 12 Catheter Lot Number: [id number] Catheter Expiration Date: 2Procedure details: Landmarks identified: [...] of procedure: Tolerated well, no immediate complicationsMethodist HospitalVENIPUNC NEED PHYS SKILL,DX OR [id number] 15:39:11CFamilia hickey RN 02/08/2020 10:40 AMMidline Date/Time: [...] and verified: yes Test results available and prop erly labeled: yes Imaging studies available: yes Required blood products, implants, devices, and special equipment available: yes Site/side marked: yes Immediately prior to procedure, a time out was called: yes Patient identity confirmed: Verbally with patient, hospital-assigned identification number and arm bandPre-procedure details: Hand hygiene: Hand hygiene performed prior to insertion Sterile barrier technique: All elements of maximal sterile technique followed Skin preparation: ChloraPrep Skin preparation agent: Dried prior to procedure Anesthesia (see MAR for exactdosages): Anesthesia method: Local infiltration Local anesthetic: Lidocaine 1% w/o epi Route ad ministered: SubcutaneousMidLine Placement Details (Will create an LDA): Patient position: Flat Vessel Size (mm): 5 Indication: Known fpc IV therapy Location: Left basilic Device Type:Non-valved Catheter Lumen(s): Single lumen Catheter size: 3 Fr Catheter to vein ratio: 24%MidLine Characteristics: Catheter Brand: SL PROVENA MIDLINE Internal Catheter Length (cm): 12 TotalCatheter Length (cm): 12 Catheter Lot Number: [id number] Catheter Expiration Date: 2Procedure details: Landmarks identified: [...] of procedure: Tolerated well, no immediate complicationsMethodist HospitalUs duplex venous upper [id number] 03:03:00 Vascular Ultrasound Laboratory Upper Extremity Venous Report [address] [place] [address] Pat.Name: SNOW ARGUETA Pat.ID: [id number] .Date: 02/07/2020 Refer.MD: MICHAEL MADDOX MD Exam Time: 4:33:00 PM Frances betancur Type:UE Venous Height: 66in Weight: 220lb BSA: 2.08 m2 Age: 7 1985,34Y Sex: FEMALE Sonogrphr: Ryan Torres RVT Pat. Stat.:Inpatient Room: SL32-4601-G Tape Vol: HV, CPT - 4: 49372 Echo Event ID:[id number] Order ID: [id number] Reason for Study:Right arm pain and swelling. [...] arm basilicvein.--- FINDINGS: Si gned 02/07/2020 10:03 PMChaz Obrien MD, RPVIInterface, Radiology Results In - 02/07/2020 10:03 PM CDTFormatting of thisnote might be different from the original. [facility] Upper Extremity Venous Report [address] [address], [place] [address] Pat.Name: SNOW ARGUETA.ID: [id number] .Date: 02/07/2020 Refer.MD: MICHAEL MADDOX MD Exam Time: 4:33:00 PM Study Type:UE Venous Height: 66in Weight: 220lb BSA: 2.08 m2 Age: 7 1985,34Y Sex: FEMALE Sonogrphr: Ryan Torres, RVT Pat. Stat.:Inpatient Room: XC21-0722-Y Tape Vol: , [facility] - 4: 22046 Echo Event ID:[id number] Order ID: [id number] Reason for Study:Right arm pain and swelling. [...] FINDINGS: Signed 02/07/2020 10:03 PMChaz Obrien MD, RPVIMethharry [facility] duplex venous upper [id number] 03:03:00 Vascular Ultrasound Laboratory Upper Extremity Venous Report [address] [address] Pat.Name: SNOW ARGUETA Pat.ID: [id number] .Date: 02/07/2020 Refer.MD: MICHAEL MADDOX MD Exam Time: 4:33:00 PM Study Type:UE Venous Height: 66in Weight: 220lb BSA: 2.08 m2 Age: 7 1985,34Y Sex: FEMALE Sonogrphr: Ryan Torres RVT Pat. Stat.:Inpatient Room: [address] Tape Vol: HV, CPT - 4: 21677 Echo Event ID:[id number] Order ID: [id number] Reason for Study:Right arm pain and swelling. [...] arm basilicvein.--- FINDINGS: Si gned 02/07/2020 10:03 PMEstrellasolt Camille MD, RPVIInterface, Radiology Results In - 02/07/2020 10:03 PM CDTFormatting of thisnote might be different from the original. [facility]ound Laboratory Upper Extremity Venous Report [address] [place] [address] Pat.Name: SNOW ARGUETA Pat.ID: [id number] .Date: 02/07/2020 Refer.MD: MICHAEL MADDOX MD Exam Time: 4:33:00 PM Study Type:UE Venous Height: 66in Weight: 220lb BSA: 2.08 m2 Age: 7 1985,34Y Sex: FEMALE Sonogrphr: ANGELIQUE Tracy. Stat.:Inpatient Room: [address] Vol: HV, CPT - 4: 16418 Echo Event ID:[id number] Order ID: [id number] Reason for Study:Right arm pain and swelling. [...] FINDINGS: Signed 02/07/2020 10:03 Yessi Obrien MD, RPVIMethmemorial [facility] HospitalFlow cytometry [id number] 14:52:18 Test Item Value Reference Range Interpretation Comments Case number (test code = [id number]) Flow cytometry evaluation See link below for (test code = 9247744) PDF [facility] Report [facility]Flow cytometry [id number] 14:52:18 Test Item Value Reference Range Interpretation Comments Case number (test code = [id number]) Flow cytometry evaluation See link below for (test code = 6507317) PDF Lab Report [facility]VEN[facility],DX [place] [id number] 14:18:07Javier Borjas RN 02/07/2020 9:21 AMMidline Date/Time: [...] to vein ratio: 41%MidLine Characteristics: Catheter Brand: [employer] External Catheter Length (cm): 0 Internal Catheter Length (cm): 12 Total Catheter Length (cm): 12 Catheter Lot Number: [id number] Catheter Expiration Date: 1Procedure details: Landmarks identified: [...] of procedure: Tolerated well, no immediate complicationsMethodist HospitalVENIPUNC [facility]ILL,DX [place] [id number] 14:18:07Javier Kolb RN 02/07/2020 9:21 AMMidline Date/Time: 02/07/2020 [...] to vein ratio: 41%MidLine Characteristics: Catheter Brand: [employer] External Catheter Length (cm): 0 Internal Catheter Length (cm): 12 Total Catheter Length (cm): 12 Catheter Lot Number: [id number] Catheter Expiration Date: 1Procedure details: Landmarks identified: [...] of procedure: Tolerated well, no immediate complicationsMethod[facility] [id number] 17:49:19 Test Item Value Reference Range Interpretation Comments Ventricular rate (test code = 253) Atrial rate (test code = 255) TN interval (test code = 266) QRSD interval [...] of 04-FEB-2020 04:50,-No significant change was found- [facility] AustinEC 12 [id number] 17:49:19 Test Item Value Reference Range Interpretation Comments Ventricular rate (test code = 253) Atrial rate (test code = 255) TN interval (test code = 266) QRSD interval [...] of 04-FEB-2020 04:50,-No significant change was found- [facility] Chest 1 [id number] 03:09:52EXAMINATION: XR CHEST 1 PORTABLE CLINICAL HISTORY: 34 years Female chest pressure on exertion COMPARISON: None. IMPRESSION: No acute cardiopulmonary disease. FINDINGS: The cardiomediastinal silhouette, lungs, and regional skeletal structures are within normal limits for age. [facility]-[id number] Interface, Radiology Results Incoming - 02/05/2020 10:12 PM CDT EXAMINATION: XR CHEST 1 VW PORTABLECLINICAL HISTORY: 34 years Female chest pressure on exertionCOMPARISON: None.IMPRESSION:No acute cardiopulmonary disease.FINDINGS:The cardiomediastinal silhouette, lungs, and regional skeletal structures are within normal limits for age. [facility]-[id number] Health Harris [facility] Chest 1 [id number] 03:09:52 EXAMINATION: XR CHEST 1 VW PORTABLE CLINICAL HISTORY: 34 years Female chest pressure on exertion COMPARISON: None. IMPRESSION: No acute cardiopulmonary disease. FINDINGS: The cardiomediastinal silhouette, lungs, and regional skeletal structures are within normal limits for age. [facility]-[id number] Inte rface, Radiology Results Incoming 02/05/2020 10:12 PM CDT EXAMINATION: XR CHEST 1 VW PORTABLECLINICAL HISTORY: 34 years Female chest pressure on exertionCOMPARISON: None.IMPRESSION:No acute cardiopulmonary disease.FINDINGS:The cardiomediastinal silhouette, lungs, and regional skeletal structures are within normal limits for age. [facility]-[id number] HospitalCytology (non-gynecological) request 2020-02-04 23:15:16 Test Item Value Reference Range Interpretation Comments Case number (test code = [id number]) Cytology See link below for (non-gynecological) PDF Lab Report report (test code = 1178) Result status (test code This is Final Report = [id number]) for [id number] [facility] AustinCytology (non-gynecological) [id number] 23:15:16 Test Item Value Reference Range Interpretation Comments Case number (test code = [id number]) Cytology See link below for (non-gynecological) PDF Lab Report report (test code = 1178) Result status (test code This is Final Report = [id number]) for [id number] [facility] AustinEEG (routine)2020-02-04 15:51:25EEG AWAKE AND ASLEEP Date of Service: 02/04/2020 Awake Recording: The occipital dominant rhythm is 10-11 Hz. 18-22 Hz activity is present in all regions. Sleep Recording: No epileptiform activity was recorded. Hyperventilation: No abnormality elicited. Photic Stimulation: No abnormality elicited. Impression The background activity is within the range of normal variation. No lateralized or epileptiform activity was recorded. ICD-10 Code: D098Npxzemmhl [facility] CenterEEG (routine)2020-02-04 15:51:25EEG AWAKE AND ASLEEP Date of Service: 02/04/2020 Awake Recording: The occipital dominant rhythm is 10-11 Hz. 18-22 Hz activity is present in all regions. Sleep Recording: No epileptiform activity was recorded. Hyperventilation: No abnormality elicited. Photic Stimulation: No abnormality elicited. Impression The background activity is within the range of normal variation. No lateralized or epileptiform activity was recorded. ICD-10 Code: M864Zcmpbxxpm HospitalIR Lumbar Puncture by [id number] 15:23:15 EXAMINATION: IR LUMBAR PUNCTURE CLINICAL HISTORY: meningitis [...] pressure was 21 cm of water. [facility]-[id number] Interface, Radiology Results Incoming 02/04/2020 10:26 AM CDT EXAMINATION: IR LUMBAR [...] cc of clear CSF fluid was withdrawn. Helder soraida complained of radiculopathy after 12 cc of fluid was withdrawn.No complications.Total fluoroscopic time was 0.2 minutes. Total air kerma was 5 mGy.IMPRESSION:Successful fluoroscopic guided lumbarpuncture.Opening pressure was 21 cm [address].[facility]-[id number] [facility] Lumbar Puncture by [id number] 15:23:15EXAMINATION: IR LUMBAR PUNCTURE CLINICAL HISTORY: meningitis [...] pressure was 21 cm of water. [facility]-[id number] Interface, Radiology Results Incoming 02/04/2020 10:26 AM CDT EXAMINATION: IR LUMBAR [...] lumbar puncture.Opening pressure was 21 cm of water.[facility]-[id number] [facility] Center Brain & Orbit W Wo [id number] 03:36:27EXAMINATION: MRI BRAIN & ORBIT W WO [...] MRI of the brain and orbits. [facility]- [id number] Interface, Radiology Results [facility] 02/03/2020 10:39 PM CDT EXAMINATION: MRI BRAIN [...] are preserved.IMPRESSION:Unremarkable MRI of the brain and orbits.[facility]-[id number] HospitalMRI Brain & Orbit W Wo Contrast 2020-02-04 03:36:27EXAMINATION: MRI BRAIN & ORBIT W WO [...] MRI of the brain and orbits. [facility]-[id number] Interface, Radi ology Results 02/03/2020 10:39 PM CDT EXAMINATION: MRI [...] are preserved.IMPRESSION:Unremarkable MRI of the brain and orbits.[facility]-[id number] [facility] Head Wo [id number] 21:17:18EXAM: CT HEAD WO CONTRAST CLINICAL HISTORY: headache [...] diagnostic quality image. COMPARISON: None. FINDINGS: The chun- white matter differentiation is preserved and without evidence of acute t erritorial infarction. There is no evidence for acute [...] No CT evidence for acute intracranial abnormality. [id number]_PS01Hm Interface, Radiology Results 02/03/2020 4:20 PM CDT [...] while achieving a diagnostic quality image.COMPARISON: None.FINDINGS:The cuhn-white matter differentiation is pres erved and without evidence of acute territorial infarction. There is no evidence for acute intracranial hemorrhage, mass, mass effect, hydrocephalus, or extra- axial fluid collection.Crowding of the foramen magnum secondary to mild cerebellar tonsillar ectopia.Orbits are unremarkable. Mild mucosal thickening identified in fairly within the right maxillary sinus. Remaining paranasal sinuses are clear.Mastoid air cells are normally pneumatized. Osseous structures are intact.IMPRESSION:No CT evidencefor acute intracranial abnormality.[id number]_PS01[facility] HospitalCT Head Wo [id number] 21:17:18 EXAM: CT HEAD WO CONTRAST CLINICAL [...] structures are intact.IMPRESSION:No CT evidencefor acute intracranial abnormality.[id number]_PS01[facility]
--- NOTE | 2020-12-27 21:00 | EDPHYS ---
Physician Documentation [facility] Name: Snow Argueta Age: 35 yrs Sex: Female : 1985 Arrival Date: 12/27/2020 Time: 18:22 Bed 14 Private MD: Soco Savage ED Physician Matthew Ramirez HPI: 12/27 21:44 This 35 yrs old Female presents to ER via Ambulatory with complaints of Knee jr8 Pain, Wound Infection. 21:44 This is a 35-year-old female patient that presented to the emergency room for follow-up jr8 for a wound on her left leg and increased pain to her right leg. Stated that she had sustained a fall and was evaluated here. Came back because she was worried that her left knee was starting to become infected and that she had increased pain to the right lower leg. Patient is on Eliquis for blood clots in the past and wanted to make sure the bruising was not getting worse. Historical: - Allergies: 18:44 Cephalexin; tw2 18:44 Gadavist; tw2 18:44 Latex, Natural Rubber; tw2 18:44 Zofran; tw2 18:44 Feraheme (Anaphylaxis); tw2 - Home Meds: 18:44 Vyvanse 40 mg Oral cap 1 cap once daily [Active]; albuterol sulfate 90 mcg/actuation tw2 Inhl HFAA as needed [Active]; azelastine 0.05 % ophthalmic drop 1 drop 2 times per day [Active]; famotidine 40 mg Oral tab 1 tab once daily [Active]; Trokendi XR Oral [Active]; Trokendi XR 100 mg Oral cp24 1 cap once daily [Active]; Singulair 10 mg Oral tab 1 tab once daily [Active]; Pepcid Oral [Active]; omeprazole 40 mg Oral cpDR 1 cap once daily [Active]; Lovenox 90 mg Sub-Q every 12 hours [Active]; Linzess 145 mcg Oral cap 1 cap once daily [Active]; Integra 125-40-3 mg Oral cap 1 cap once daily [Active]; fluticasone 50 mcg/actuation nasal spsn 1 spray 2 times per day [Active]; - PMHx: 18:44 ADD/ADHD; Blood Clot on R arm; Endometrosis; Leukemia; Hypothyroidism; GERD; epilepsy; tw2 Pancreatitis; Lupus erythematosus; - Immunization history:: Adult Immunizations Client reports having NOT received the Covid vaccine. - Social history:: Smoking status: Patient denies any tobacco usage or history of. ROS: 21:44 Eyes: Negative for injury, pain, redness, and discharge, ENT: Negative for injury, jr8 pain, and discharge, Neck: Negative for injury, pain, and swelling, Cardiovascular: Negative for chest pain, palpitations, and edema, Respiratory: Negative for shortness of breath, cough, wheezing, and pleuritic chest pain, Abdomen/GI: Negative for abdominal pain, nausea, vomiting, diarrhea, and constipation, Back: Negative for injury and pain, Neuro: Negative for headache, weakness, numbness, tingling, and seizure. 21:44 MS/extremity: Positive for ecchymosis, pain, of the right leg. 21:44 Skin: Positive for abrasion(s), of the left knee. Exam: 21:44 Constitutional: This is a well developed, well nourished patient who is awake, alert, jr8 and in no acute distress. Cardiovascular: Regular rate and rhythm with a normal S1 and S2. No gallops, murmurs, or rubs. Normal PMI, no JVD. No pulse deficits. Respiratory: Lungs have equal breath sounds bilaterally, clear to auscultation and percussion. No rales, rhonchi or wheezes noted. No increased work of breathing, no retractions or nasal flaring. Neuro: Awake and alert, GCS 15, oriented to person, place, time, and situation. Cranial nerves II-XII grossly intact. Motor strength 5/5 in all extremities. Sensory grossly intact. Cerebellar exam normal. Normal gait. 21:44 Musculoskeletal/extremity: Extremities: grossly normal except: noted in the left leg: Patient has ecchymosis to the right lower extremity. There is no circumferential difference between the right and left leg. Calf and surrounding anterior soft tissues are soft and pliable and without any pain. No pain with dorsiflexion or plantar flexion. No decreased sensation and normal pulses present 2+ in the dorsal podalic's and posterior tibial arteries of the right leg.. 21:44 Skin: Patient has 2 small abrasions to the left knee. Minimal erythema surrounds these abrasions. Serous fluid noted to the wounds without pustulous material. Mild pain to palpation. Wounds appear clean otherwise. Vital Signs: 18:42 BP 120 / 95; Pulse 92; Resp 18; Temp 98.3(TE); Pulse Ox 100% on R/A; Weight 77.11 kg tw2 (R); Height 5 ft. 6 in. (167.64 cm); Pain 10/10; 18:42 Body Mass Index 27.44 (77.11 kg, 167.64 cm) tw2 MDM: 20:38 Patient medically screened. jr8 20:58 Data reviewed: vital signs, nurses notes, and as a result, I will discharge patient. jr8 Data interpreted: Pulse oximetry: on room air is 100 %. Interpretation: normal. Counseling: I had a detailed discussion with the patient and/or guardian regarding: the historical points, exam findings, and any diagnostic results supporting the discharge/admit diagnosis, the need for outpatient follow up, a family practitioner, to return to the emergency department if symptoms worsen or persist or if there are any questions or concerns that arise at home. ED course: Discussed with patient that there is no signs of infection to the left knee. That the 2 abrasive robles that she has is healing well at this time. No discharge or significant erythema/cellulitis. As far as her bruising of the right leg her calf and surrounding tissues are soft and very pliable. There is no tenseness or circumferential differentiation between the right and left calf. No extreme pain with plantar or dorsiflexion and no numbness or tingling. No signs of compartment syndrome at this time. Just recommended close follow-up with PCP. Signs and symptoms given to patient about compartment syndrome and infection if she were to note any of those immediately come back to the emergency room for follow-up. Patient good with plan at this time.. Administered Medications: No medications were administered Disposition: 22:25 Co-signature as Attending Physician, Matthew Ramirez MD I agree with the assessment and rn plan of care. Attestation: The patient's history, exam findings, diagnostics, and a summary of any interventions or procedures was reviewed in detail with Tigre GEE. Disposition Summary: 12/27/20 21:00 Discharge Ordered Location: Home jr Problem: new jr8 Symptoms: have improved jr8 Condition: Stable jr8 Diagnosis - Contusion of right lower leg jr8 - Abrasion, left knee jr8 Followup: jr8 - With: Soco Savage MD - When: 2 - 3 days - Reason: Recheck today's complaints, Continuance of care, Re-evaluation by your physician Discharge Instructions: - Discharge Summary Sheet jr8 - Abrasion jr8 - Contusion jr8 Forms: - Medication Reconciliation Form jr8 - Thank You Letter jr8 - Antibiotic Education jr8 - Prescription Opioid Use jr8 Signatures: Matthew Ramirez MD MD rn Roszak, Josh, PA PA jr8 Ericka Gates RN RN tw2 Corrections: (The following items were deleted from the chart) 18:46 18:44 Home Meds: Vyvanse Oral; tw2 tw2
--- NOTE | 2020-12-27 21:00 | ER ---
Nurse's Notes [facility] Name: Snow Argueta Age: 35 yrs Sex: Female : 1985 Arrival Date: 12/27/2020 Time: 18:22 Bed 14 Private MD: Soco Savage Diagnosis: Contusion of right lower leg;Abrasion, left knee Presentation: 12/27 18:42 Chief complaint: Patient states: Dr. Vigil office said i should come here to get it tw2 checked out. I fell on day and had a really bad fall. I have been having it wrapped but it looks infected. It feels like its on fire. and it андрей hot to the touch. Coronavirus screen: At this time, the client does not indicate any symptoms associated with coronavirus-19. Ebola Screen: Patient denies travel to an Ebola-affected area in the 21 days before illness onset. Initial Sepsis Screen: Does the patient meet any 2 criteria? No. Patient's initial sepsis screen is negative. Does the patient have a suspected source of infection? No. Patient's initial sepsis screen is negative. Risk Assessment: Do you want to hurt yourself or someone else? Patient reports no desire to harm self or others. Onset of symptoms was December 27, 2020. 18:42 Method Of Arrival: Ambulatory tw2 18:42 Acuity: LEONEL 4 tw2 Triage Assessment: 18:46 General: Appears in no apparent distress. well groomed, Behavior is calm, cooperative, tw2 appropriate for age. Pain: Complains of pain in left knee. Derm:. Historical: - Allergies: 18:44 Cephalexin; tw2 18:44 Gadavist; tw2 18:44 Latex, Natural Rubber; tw2 18:44 Zofran; tw2 18:44 Feraheme (Anaphylaxis); tw2 - Home Meds: 18:44 Vyvanse 40 mg Oral cap 1 cap once daily [Active]; albuterol sulfate 90 mcg/actuation tw2 Inhl HFAA as needed [Active]; azelastine 0.05 % ophthalmic drop 1 drop 2 times per day [Active]; famotidine 40 mg Oral tab 1 tab once daily [Active]; Trokendi XR Oral [Active]; Trokendi XR 100 mg Oral cp24 1 cap once daily [Active]; Singulair 10 mg Oral tab 1 tab once daily [Active]; Pepcid Oral [Active]; omeprazole 40 mg Oral cpDR 1 cap once daily [Active]; Lovenox 90 mg Sub-Q every 12 hours [Active]; Linzess 145 mcg Oral cap 1 cap once daily [Active]; Integra 125-40-3 mg Oral cap 1 cap once daily [Active]; fluticasone 50 mcg/actuation nasal spsn 1 spray 2 times per day [Active]; - PMHx: 18:44 ADD/ADHD; Blood Clot on R arm; Endometrosis; Leukemia; Hypothyroidism; GERD; epilepsy; tw2 Pancreatitis; Lupus erythematosus; - Immunization history:: Adult Immunizations Client reports having NOT received the Covid vaccine. - Social history:: Smoking status: Patient denies any tobacco usage or history of. Vital Signs: 18:42 BP 120 / 95; Pulse 92; Resp 18; Temp 98.3(TE); Pulse Ox 100% on R/A; Weight 77.11 kg tw2 (R); Height 5 ft. 6 in. (167.64 cm); Pain 10/10; 18:42 Body Mass Index 27.44 (77.11 kg, 167.64 cm) tw2 ED Course: 18:22 Patient arrived in ED. am2 18:23 Soco Savage MD is Private Physician. am2 18:43 Triage completed. tw2 18:46 Arm band placed on. tw2 20:34 Sapna King RN is Primary Nurse. bs2 20:37 [facility]. jr8 20:37 Matthew Ramirez MD is Attending Physician. jr8 20:59 Soco Savage MD is Referral Physician. jr8 Administered Medications: No medications were administered Outcome: 21:00 Discharge ordered by . jr8 21:28 Patient left the ED. mw2 Signatures: Tigre Carpenter PA PA jr8 Ericka Gates RN RN tw2 Maddy Cadena am2 Joni Alanis mw2 Sapna King, EBONIE RN bs2 Corrections: (The following items were deleted from the chart) 18:46 18:42 Chief complaint: Patient states: Dr. Savage said i should come back here. I fell on tw2 and had a really bad fall. I have been having it wrapped but it looks infected. It feels like its on fire. and it андрей hot to the touch 18:46 18:44 Home Meds: Linda Oral; tw tw
[2020-12-27 21:33] VITALS: BP 120/95; TEMP 98.3; O2SAT 100
== END 2020-12-27 21:28 | disposition home or self-care (01) ==
LOC: ER 18:22
DX: S80.11XA Contusion of right lower leg, initial encounter (principal); S80.212A Abrasion, left knee, initial encounter; W19.XXXA Unspecified fall, initial encounter; Y93.9 Activity, unspecified; Y92.9 Unspecified place or not applicable; Z88.8 Allergy status to other drugs, medicaments and biological substances; Z91.040 Latex allergy status
CPT/HCPCS: 99281

== ENCOUNTER 2021-05-10 22:37 | Emergency (ER) | payer OTHER, SELFPAY ==
--- OUTSIDE RECORDS SUMMARY | 2021-05-10 22:42 | XMS REPORT | Clinical Summary ---
:1985 Author Organization [facility] (formerly [facility]) Address [address] [place] [address] Care Team Providers Name Role Phone MD Yari Primary Care Provider MD Brayan Unavailable MD Karmen Unavailable Rose Marie Yancey MD Unavailable MD Becky Unavailable MD Cassius Unavailable Unavailable MD Mary Unavailable Unavailable Yuri Dunlap Unavailable GERARD Etienne Unavailable TIFFANIE Johnson Unavailable Unavailable John Allison Unavailable MD Lionel Unavailable Anna Winchester NP Unavailable Unavailable MD Susana Unavailable XOCHITL Milligan Unavailable MD Maura Unavailable So Alfaro MD Unavailable MD Yari Unavailable Christopher Graham NP Unavailable XOCHITL Wren Unavailable GERARD Ochoa Unavailable Severiano, XOCHITL Unavailable Yamil Chaidez MD Unavailable Mike Yanez Unavailable Jennifer Jung Unavailable DayanaXOCHITL Kingston Unavailable Marcela Damico MD Unavailable Anna Damico MD Unavailable Milana Florez MD Unavailable MD Hilario Unavailable MD Shirley Unavailable MD Lyle Unavailable MD Kehinde Unavailable MD Evan Unavailable Unavailable Doug Stack MD Unavailable Allergies Active [...] Encounters Date Type Specialty Care Team Description 03/30/2021 Office Visit Leukemia Jori Long, Systemic lupus erythematosus, not otherwise specified (Primary Dx); [employer] Acute promyelocytic leukemia, in remissi on Nicki Staley PA 03/30/2021 Hospital Encounter Lab Jori Long, Acute pro myelocytic [employer] PROF[employer] leukemia, in re mission 03/30/2021 Orders Only Leukemia Rebeka, Acute promyeloc ytic GERARD Caceres leukemia, in r emission (Primary Dx) 03/30/2021 Travel 03/30/2021 Orders Only Leukemia Jori Long, Acute promyeloc ytic [employer] leukemia, in re mission (Primary Dx) 07/29/2020 Orders Only Infectious Diseases Nisa, SARS-CoV -2 vaccination MD Geo after 05/10/2020 Immunizations Name Administration Dates Next Due Influenza [...] Assigned at Date Recorded Not on file Obstetrics History Last Filed Vital Signs Not on file Plan of Treatment Health Maintenance Due Date Last Done Comments COVID-19 Vaccination (1) 1998 Procedures Procedure Name Priority Date/Time Associated Diagnosis Comme nts TMP INTERPRETATION Routine 03/30/2021 11:04 Resul ts for this ANTIBODY SCREEN NEGATIVE AM LEGISLATIVE CORRESPONDENT pro cedure are in the results section. CLOT EXPIRATION DATE Routine 03/30/2021 11:04 Res ults for this AM LEGISLATIVE CORRESPONDENT procedure are i n the results section. HP T(15;17) PML-LEN Routine 03/30/2021 11:04 QUANTITATIVE PCR AM LEGISLATIVE CORRESPONDENT INTERPRETATION AND REPORT .GLOMERULAR FILTRATION Routine 03/30/2021 11:04 Acute promyelo cytic Results for this RATE AM LEGISLATIVE CORRESPONDENT leukemia, in procedure are i n remission the results section. SERUM CREATININE Routine 03/30/2021 11:04 Acute promyelocytic Results for this AM LEGISLATIVE CORRESPONDENT leukemia, in procedure are i n remission the results section. MANUAL DIFFERENTIAL STAT 03/30/2021 11:04 Acute promyelocyt ic Results for this AM LEGISLATIVE CORRESPONDENT leukemia, in procedure are i n remission the results section. Results CBC STAT 03/30/2021 11:04 Acute promyelocytic Resu lts for this AM LEGISLATIVE CORRESPONDENT leukemia, in procedure are i n remission the results section. ANTIBODY SCREEN Routine 03/30/2021 11:04 Acute promyelocytic R esults for this AM LEGISLATIVE CORRESPONDENT leukemia, in procedure are i n remission the results section. ABORH Routine 03/30/2021 11:04 Acute promyelocytic Resu lts for this AM LEGISLATIVE CORRESPONDENT leukemia, in procedure are i n remission the results section. HP T(15;17) PML-LEN Routine 03/30/2021 11:04 Acute promyel ocytic Results for this QUANTITATIVE PCR AM LEGISLATIVE CORRESPONDENT leukemia, in procedure a re in COLLECTION, BLOOD remission the result s section. MAGNESIUM LEVEL Routine 03/30/2021 11:04 Acute promyelocytic R esults for this AM LEGISLATIVE CORRESPONDENT leukemia, in procedure are i n remission the results section. ELECTROLYTE PANEL Routine 03/30/2021 11:04 Acute promyelocytic Results for this AM LEGISLATIVE CORRESPONDENT leukemia, in procedure are i n remission the results section. ALANINE AMINOTRANSFERASE Routine 03/30/2021 11:04 Acute promye locytic Results for this AM LEGISLATIVE CORRESPONDENT leukemia, in procedure are i n remission the results section. LACTATE DEHYDROGENASE Routine 03/30/2021 11:04 Acute promyeloc ytic Results for this AM LEGISLATIVE CORRESPONDENT leukemia, in procedure are i n remission the results section. ALKALINE PHOSPHATASE Routine 03/30/2021 11:04 Acute promyelocy tic Results for this AM LEGISLATIVE CORRESPONDENT leukemia, in procedure are i n remission the results section. FRACTIONATED BILIRUBIN Routine 03/30/2021 11:04 Acute promyelo cytic Results for this AM LEGISLATIVE CORRESPONDENT leukemia, in procedure are i n remission the results section. URIC ACID Routine 03/30/2021 11:04 Acute promyelocytic Resu lts for this AM LEGISLATIVE CORRESPONDENT leukemia, in procedure are i n remission the results section. SERUM CREATININE Routine 03/30/2021 11:04 Acute promyelocytic AM LEGISLATIVE CORRESPONDENT leukemia, in remission BLOOD UREA NITROGEN Routine 03/30/2021 11:04 Acute promyelocyt ic Results for this AM LEGISLATIVE CORRESPONDENT leukemia, in procedure are i n remission the results section. GLUCOSE, RANDOM Routine 03/30/2021 11:04 Acute promyelocytic R esults for this AM LEGISLATIVE CORRESPONDENT leukemia, in procedure are i n remission the results section. PHOSPHORUS LEVEL Routine 03/30/2021 11:04 Acute promyelocytic Results for this AM LEGISLATIVE CORRESPONDENT leukemia, in procedure are i n remission the results section. CALCIUM LEVEL TOTAL Routine 03/30/2021 11:04 Acute promyelocyt ic Results for this AM LEGISLATIVE CORRESPONDENT leukemia, in procedure are i n remission the results section. ALBUMIN LEVEL Routine 03/30/2021 11:04 Acute promyelocytic Res ults for this AM LEGISLATIVE CORRESPONDENT leukemia, in procedure are i n remission the results section. TOTAL PROTEIN Routine 03/30/2021 11:04 Acute promyelocytic Res ults for this AM LEGISLATIVE CORRESPONDENT leukemia, in procedure are i n remission the results section. COMPLETE BLOOD COUNT W/ Routine 03/30/2021 11:04 Acute promyel ocytic DIFFERENTIAL AM LEGISLATIVE CORRESPONDENT leukemia, in remission TYPE AND SCREEN Routine 03/30/2021 11:04 Acute promyelocytic AM LEGISLATIVE CORRESPONDENT leukemia, in remission after 05/10/2020 Results t(15;17) PML-LEN Quantitative PCR Collection, Blood (03/30/2021 11:04 AM LEGISLATIVE CORRESPONDENT) Pathologist Sig nature Molecular Diagnostics Yes [facility] CAN ER (Received) CENTER Specimen Blood Performing Organization Address City/[facility] Code Phon e Number [facility] Unless otherwise noted, [address] all lab tests performed by: Division of Pathology and Laboratory Medicine [address] (ABNORMAL) Glucose, Random (03/30/2021 11:04 AM LEGISLATIVE CORRESPONDENT) Glucose Random 62 (L) 70 - 199 mg/dL [facility] Comment: CANCER CENTER Effective 11/15/15, the gluco se reference intervals have been updated based on [place] Diabetes [employer] guidelines (Standards of Medical Care in Diabetes 2016. Diabetes Care 2016; 39: S13-S22). Fasting blood glucose: Normal: 70-99 mg/dL Impaired fasting glucose (in creased risk for diabetes or pre-diabetes): 100- 125 mg/dL Diabetes mellitus: >/=126 mg/dL Random blood glucose: Normal: 70-199 mg/dL Note: Random glucose >100 mg/dL is assoc iated with increased risk for diabetes Specimen Blood Narrative [facility] - 12:26 PM LEGISLATIVE CORRESPONDENT Schedule in Fast Track Performing Organization Address City/[facility]/ZIP Code Phon e Number [facility] CANCER Unless otherwise noted, [address] all lab tests performed by: Division of Pathology and Laboratory Medicine [address] [employer] .Serum Creatinine (03/30/2021 11:04 AM LEGISLATIVE CORRESPONDENT) Pathologist Sig nature Creatinine 0.95 0.51 - 0.95 mg/dL [facility] CANCER C ENTER Specimen Blood Narrative [facility]NER - 12:26 PM LEGISLATIVE CORRESPONDENT Schedule in Fast Track Performing Organization Address City/State/ZIP Code Phon e Number [facility] CANCER Unless otherwise noted, [place] [address] CENTER all lab tests performed by: Division of Pathology and Laboratory Medicine [address] (ABNORMAL) .CBC (03/30/2021 11:04 AM LEGISLATIVE CORRESPONDENT) WBC 9.4 4.0 - 11.0 [facility] K/uL DIAGNOSTIC CENTER RBC 4.53 4.00 - 5.50 [facility] M/uL DIAGNOSTIC CENTER Hgb 13.0 12.0 - 16.0 [facility] gm/dL DIAGNOSTIC CENTER Hct 40.0 37.0 - 47.0 % [facility] DIAGNOSTIC CALL MCV 88 82 - 98 fL [facility] DIAGNOSTIC CALL MCH 28.7 27.0 - 31.0 [facility] pg DIAGNOSTIC CENTER MCHC 32.5 31.0 - 36.0 [facility] gm/dL DIAGNOSTIC CENTER RDW-SD 40.1 35.1 - 46.3 [facility] fL DIAGNOSTIC CENTER RDW-CV 12.3 12.0 - 15.5 % [facility] Platelet count 252 140 - 440 [facility] K/uL DIAGNOSTIC CENTER MPV 12.2 (H) 4.0 - 10.4 fL [facility] DIAGNOSTIC CALL INRBC 0.0 <=0.0 % [facility] Comment: DIAGNOSTIC CENTER The INRBC (instrument NRBC) value reflects the enumera tion of nucleated red blood cells contained in a 200uL samp le of whole blood analyzed by the instrument. This value may differ from the NRBC value reported in a manual differ ential, which is based on a 100 cell differential. Specimen Blood Narrative [facility] - 03/30 11:28 AM LEGISLATIVE CORRESPONDENT Schedule in Fast Track Performing Organization Address City/State/ZIP Code Phon e Number [facility] DIAGNOSTIC Unless otherwise noted, [place] [address] CENTER all lab tests performed by: Division of Pathology and Laboratory Medicine [address] Lawtoncomliz[address] Sapp Clot Expiration Date (03/30/2021 11:04 AM LEGISLATIVE CORRESPONDENT) Pathologist Sig nature T & S Expiration 04/02/2021 [facility] Specimen Blood Performing Organization Address City/State/ZIP Code Phon e Number [facility] CANCER Unless otherwise noted, [place] [address] CENTER all lab tests performed by: Division of Pathology and Laboratory Medicine [address] Glomerular Filtration Rate (03/30/2021 11:04 AM LEGISLATIVE CORRESPONDENT) eGFR-AA 90 >=60 [facility] Comment: mL/min/1.73 [facility] Normal eGFR: >= 60 mL/min/1.73 m2 sq. m Note: The eGFR is calculated using the CKD-EPI equation. The eGFR declines with age. eGFR <60 mL/min/1.73 m2 is considered as "decreased". This equation should only be used for patients 18 and older. According to the National dney Foundation's Kidney Disease Outcome Quality Initiative (KDOQI) classification and 2012 Kidney Disease Improving Global Outcomes (KDIGO) Clinical Practice Guideline, the stage of CKD should be categorized based on estimated GFR. Stage Description GFR mL/min/1.73 m2 1 Normal or high GFR >=90 2 Mildly decreased GFR 60-89 3a Mildly to moderately decreased GFR 45-59 3b Moderately to severely decreased GFR 30-44 4 Severely decreased GFR 15-29 5 Kidney failure <15 eGFR-SARI 78 >=60 [facility] Comment: mL/min/1.73 [facility] Normal eGFR: >= 60 mL/min/1.73 m2 sq. m Note: The eGFR is calculated using the CKD-EPI equation. The eGFR declines with age. eGFR <60 mL/min/1.73 m2 is considered as "decreased". This equation should only be used for patients 18 and older. According to the National dney Foundation's Kidney Disease Outcome Quality Initiative (KDOQI) classification and 2012 Kidney Disease Improving Global Outcomes (KDIGO) Clinical Practice Guideline, the stage of CKD should be categorized based on estimated GFR. Stage Description GFR mL/min/1.73 m2 1 Normal or high GFR >=90 2 Mildly decreased GFR 60-89 3a Mildly to moderately decreased GFR 45-59 3b Moderately to severely decreased GFR 30-44 4 Severely decreased GFR 15-29 5 Kidney failure <15 Specimen Blood Narrative [facility]ANNER - 12:26 PM LEGISLATIVE CORRESPONDENT Schedule in Fast Track Performing Organization Address City/State/ZIP Code Phon e Number [facility] CANCER Unless otherwise noted, [place], [place] [id number] [place] [address] all lab tests performed by: Division of Pathology and Laboratory Medicine [facility] Fractionated Bilirubin (03/30/2021 11:04 AM LEGISLATIVE CORRESPONDENT) Pathologist [facility] Bili Total 0.4 <=1.2 mg/dL [facility] Comment: [facility] Indocyanine Green (ICG) may cause falsely elevated bilirubin results. Total and direct bilirubin must not be measured from samples containing indocyanine green. False elevation of total bing irubin can be seen in patients with IgG concentrations above 28 g/L. Bili Direct <0.2Comment: <=0.3 mg/dL [facility] Indocyanine Green [facility] (ICG) may cause falsely elevated bilirubin results. Total and direct bilirubin must not be measured from samples containing indocyanine green. Bili Indirect See NoteComment: 0.0 - 0.9 [facility] Unable to calculate mg/dL [facility] Indirect Bilirubin result due to some parameters are outside reportable range Specimen Blood Performing Organization Address [facility] Phon e Number [facility] CANCER Unless otherwise noted, [address] all lab tests performed by: Division of Pathology and Laboratory Medicine Vince saucedo(15;17) PML-LEN Quantitative PCR Interpretation and Report (03/30/2021 11:04 AM LEGISLATIVE CORRESPONDENT) Specimen Narrative This result has an attachment that is no t available. TMP Interpretation Antibody Screen Negative (03/30/2021 11:04 AM LEGISLATIVE CORRESPONDENT) Pathologist [facility] TMP Auto Neg ABSC At the present time, hilda t plasma shows no evidence of RBC alloantibodies. [facility] Interp Comment: [facility] VALERIE FREDERICK, Dictated by: VALERIE FREDERICK, Dictated Date/Time: 03.30.20 20:35 PM LEGISLATIVE CORRESPONDENT Transcribed Date/Time: 03.30.2021 20:35 PM LEGISLATIVE CORRESPONDENT Electronically Signed By: VALERIE FREDERICK, on 03.21 20:35 PM Specimen Blood Performing Organization Address City/[facility] Phon e Number [facility] Unless otherwise noted, [address] all lab tests performed by: Division of Pathology and Laboratory Medicine Vince Van (03/30/2021 11:04 AM LEGISLATIVE CORRESPONDENT) Pathologist Sig nature ABORh. A POS [facility] CANCER CALL Specimen Blood Performing Organization Address City/State/ZIP Code Phon e Number [facility] CANCER Unless otherwise noted, [place] [address] CALL all lab tests performed by: Division of Pathology and Laboratory Medicine [address] (ABNORMAL) Differential (03/30/2021 11:04 AM LEGISLATIVE CORRESPONDENT) Neutrophil % 75.3 (H) 42.0 - 66.0 % [facility] DIAGNOSTIC CALL Lymphocyte % 16.8 (L) 24.0 - 44.0 % [facility] Monocyte % 6.3 2.0 - 7.0 % [facility] Eosinophil % 0.8 (L) 1.0 - 4.0 % [facility] DIAGNOSTIC CALL Basophil % 0.5 0.0 - 1.0 % [facility] IGRE % 0.3Comment: IGRE 0.0 - 0.4 % [facility] % count includes DIAGNOSTIC CENTER Metamyelocytes, Myelocytes, and Promyelocytes. Neutrophil Abs 7.10 1.70 - 7.30 [facility] K/ DIAGNOSTIC CENTER Lymphocyte Abs 1.59 1.00 - 4.80 [facility] K/ DIAGNOSTIC CALL Monocyte Abs 0.59 0.08 - 0.70 [facility] DIAGNOSTIC CALL Eosinophil Abs 0.08 0.04 - 0.40 [facility] DIAGNOSTIC CALL Basophil Abs 0.05 0.00 - 0.10 [facility] DIAGNOSTIC CALL IG Abs 0.03 0.00 - 0.04 [facility] DIAGNOSTIC CALL Specimen Blood Narrative [facility] - 03/30 11:28 AM LEGISLATIVE CORRESPONDENT Schedule in Fast Track Performing Organization Address City/State/ZIP Code Phon e Number [facility] DIAGNOSTIC Unless otherwise noted, [place] [address] CALL all lab tests performed by: Division of Pathology and Laboratory Medicine [address] Antibody Screen (03/30/2021 11:04 AM LEGISLATIVE CORRESPONDENT) Pathologist Sig nature ABSC. Negative ABSC [facility] CANCER CENTE R Specimen Blood Performing Organization Address City/State/ZIP Code Phon e Number [facility] CANCER Unless otherwise noted, [place] all lab tests performed by: Division of Pathology and Laboratory Medicine [address] Uric Acid (03/30/2021 11:04 AM LEGISLATIVE CORRESPONDENT) Pathologist Sig nature Uric Acid 3.4 2.4 - 5.7 mg/dL [facility] TER Specimen Blood Narrative [facility] - 12:26 PM LEGISLATIVE CORRESPONDENT Schedule in Fast Track Performing Organization Address City/[facility]/ZIP [facility] Phon e Number [facility] Unless otherwise noted, [address] all lab tests performed by: Division of Pathology and Laboratory Medicine [address] BUN (03/30/2021 11:04 AM LEGISLATIVE CORRESPONDENT) Pathologist Sig nature BUN 12 6 - 23 mg/dL [facility] Specimen Blood Performing Organization Address [facility] Phon e Number [facility] CANCER Unless otherwise noted, [address] all lab tests performed by: Division of Pathology and Laboratory Medicine [address] Alanine Aminotransferase (03/30/2021 11:04 AM LEGISLATIVE CORRESPONDENT) Pathologist Sig nature ALT 17 <=33 U/L [facility] Specimen Blood Narrative [facility] - 12:26 PM LEGISLATIVE CORRESPONDENT Schedule in Fast Track Performing Organization Address [facility] Phon e Number [facility] CANCER Unless otherwise noted, [address] all lab tests performed by: Division of Pathology and Laboratory Medicine [address] Total Protein (03/30/2021 11:04 AM LEGISLATIVE CORRESPONDENT) Pathologist Sig nature Total Protein 6.8 6.4 - 8.3 g/dL [facility] TER Specimen Blood Narrative BANNER - 12:26 PM LEGISLATIVE CORRESPONDENT Schedule in Fast Track Performing Organization Address City/[facility]/ZIP [facility] Phon e Number [facility] CANCER Unless otherwise noted, [address] all lab tests performed by: Division of Pathology and Laboratory Medicine [address] Phosphorus Level (03/30/2021 11:04 AM LEGISLATIVE CORRESPONDENT) Pathologist Sig nature Phosphorus 3.8 2.5 - 4.5 mg/dL [facility] TER Specimen Blood Narrative BANNER - 12:26 PM LEGISLATIVE CORRESPONDENT Schedule in Fast Track Performing Organization Address City/[facility]/ZIP [facility] Phon e Number [facility] CANCER Unless otherwise noted, [address] all lab tests performed by: Division of Pathology and Laboratory Medicine [address] Alkaline Phosphatase (03/30/2021 11:04 AM LEGISLATIVE CORRESPONDENT) Pathologist Sig nature Alk Phos 69 35 - 104 U/L [facility] Specimen Blood Narrative [facility] - 12:26 PM LEGISLATIVE CORRESPONDENT Schedule in Fast Track Performing Organization Address [facility] Phon e Number [facility] CANCER Unless otherwise noted, [address] all lab tests performed by: Division of Pathology and Laboratory Medicine [address] Magnesium Level (03/30/2021 11:04 AM LEGISLATIVE CORRESPONDENT) Pathologist Sig nature Magnesium 2.2 1.6 - 2.6 mg/dL [facility] TER Specimen Blood Narrative BANNER - 12:26 PM LEGISLATIVE CORRESPONDENT Schedule in Fast Track Performing Organization Address [facility] Phon e Number [facility] CANCER Unless otherwise noted, [address] all lab tests performed by: Division of Pathology and Laboratory Medicine [address] LDH (03/30/2021 11:04 AM LEGISLATIVE CORRESPONDENT) LDH 162Comment: Results 135 - 214 U/L [facility] greater than 1651 U/L [facility] may not be reliable due to matrix effect with extended dilution as it exceeds the general manager s recommended limit. Caution should be exercised when interpreting such values and done in conjunction with clinical context. Specimen Blood Narrative [facility]ANNER - 12:26 PM LEGISLATIVE CORRESPONDENT Schedule in Fast Track Performing Organization Address [facility] Phon e Number [facility] CANCER Unless otherwise noted, [address] all lab tests performed by: Division of Pathology and Laboratory Medicine [address] Calcium Level (03/30/2021 11:04 AM LEGISLATIVE CORRESPONDENT) Pathologist Sig nature Calcium Lvl 8.8 8.4 - 10.2 mg/dL [facility] CE NTER Specimen Blood Narrative [facility]NER - 12/10/202 1 12:26 PM LEGISLATIVE CORRESPONDENT Schedule in Fast Track Performing Organization Address City/[facility]/ZIP Code Phon e Number [facility] CANCER Unless otherwise noted, [address] all lab tests performed by: Division of Pathology and Laboratory Medicine [facility] [place] [address] Albumin Level (03/30/2021 11:04 AM LEGISLATIVE CORRESPONDENT) Pathologist Sig nature Albumin Lvl 4.5 3.5 - 5.2 gm/dL [facility] TER Specimen Blood Narrative [facility] - 1 12:26 PM LEGISLATIVE CORRESPONDENT Schedule in Fast Track Performing Organization Address City/[facility]/ZIP Code Phon e Number [facility] CANCER Unless otherwise noted, [address] all lab tests performed by: Division of Pathology and Laboratory Medicine [address] [place] [address] Col[place] Electrolyte Panel (03/30/2021 11:04 AM LEGISLATIVE CORRESPONDENT) Pathologist Sig nature Sodium Lvl 141 136 - 145 mEq/L [facility] Potassium Lvl 4.0 3.5 - 5.1 mEq/L [facility] Chloride 104 98 - 107 mEq/L [facility] CO2 27 22 - 29 mEq/L [facility] Anion Gap 10 4 - 14 mEq/L [facility] Specimen Blood Narrative [facility] - 1 12:26 PM LEGISLATIVE CORRESPONDENT Schedule in Fast Track Performing Organization Address City/[facility]/ZIP [facility] Phon e Number [facility] CANCER Unless otherwise noted, [address] all lab tests performed by: Division of Pathology and Laboratory Medicine [address] [place] [address] [place] after 05/10/2020 Care Teams Emergency Doctor Relationship Specialty Start Date End Date Marck Greenberg MD PCP - General 06/21/[address] [place] [id number] Jag Schmidt MD Physician 06/28/[address] [place] [id number] Niharika Peraza MD Physician 06/28/[address] [place] [id number] Anita Yancey MD Physician 06/28/15 [address] [place] [address] Fab Pena MD Physician 06/28/15 [address] [place] [address] Juan Hammonds MD Physician 06/28/15 Gurpreet Hernandez MD Physician 06/28/15 Heydi Dunlap PA Physician [employer] 06/28/[address] [place] [id number] Patsy Etienne PA Physician [employer] Merchandiser 06/28/[address] [place] [id number] Topher Johnson FNP Nurse Practitioner 06/28/15 Kori Allison, John [employer] 06/28/[address] [place] [address] [address] [place] [address] Michael Flowers MD Physician 06/28/[address] [place] [id number] Maddy Winchester R[employer]SIAN H[employer]ORY PROFESSOR Nurse Practitioner 06/28/15 Pedro Luis Meza MD Physician 06/28/15 [address] [facility] [address] [place] [address] Yuli Milligan, XOCHITL Nurse Practitioner 06/28/[address] [place] [id number] Kathi Lorenzo MD Physician 06/28/[address] [place] [address] [id number] Adria Alfaro MD Physician 06/28/[address] [place] [address] [id number] Marck Greenberg MD Physician 06/28/[address] [place] [address] [id number] Nina Graham RUSSIAN HISTORY PROFESSOR Nurse Practitioner 06/28/[address] [place] [address] [id number] Rin Wren, XOCHITL Nurse Practitioner 06/28/[address] [place] [id number] Suly Ochoa, GERARD Physician [employer]rain Merchandiser 06/28/[address] [place] [address] [phone] Lee العلي, XOCHITL Nurse Practitioner 06/28/[address] [place] [address] [phone] Christianne Chaidez MD Physician 06/28/[address] [place] [address] [id number] Tommie Yanez PA Physician Grain Merch[employer]iser 06/28/[address] [place] [address]. [place] [address] Marie Jung PA Physician Grain Merchandiser 06/28/[address] [place] [id number] Alexandra Villegas, XOCHITL Nurse Practitioner 06/28/[address] [place] [address] [id number] Graeme Damico MD Physician 06/28/[address] [place] [address] [id number] Chico Damico MD Physician 06/28/[address] [place] [address] [phone] Kristy Florez MD Physician 06/28/[address] [place] [address] [phone] Sony Rich MD Physician 06/28/[address] [place] [address] [id number] Sony Watson MD Physician 06/28/[address] [place] [address] [id number] Santino Alvarenga MD Physician 06/28/[address] [place] [address] [id number] Aurora Busby MD Physician 06/28/[address] [place] [address] [id number] Domenic Gordon MD Physician 06/28/15 Otis Busby MD Physician 06/28/[address] [place] [id number]
--- OUTSIDE RECORDS SUMMARY | 2021-05-10 22:45 | XMS REPORT | Continuity of Care Document ---
:1985 Author Organization [facility] t Address [address] [place] [address] Care Team Providers Name Role Phone [phone] Primary Care Physician Unavailable ETHAN Attending Clinician Unavailable Ethan LEUNG Attending Clinician Rebeka GEE Attending Clinician ZAYRA Attending Clinician Unavailable Zayra MORENO Attending Clinician Mendez HAMILTON Attending Clinician Harsh Attending Clinician Unavailable Lesley Savage DO Attending Clinician Andres MEJIAS Attending Clinician Unavailable Marlon LOOMIS Attending Clinician Unavailable Ester MORENO Attending Clinician Provider, Urgent Care Attending Clinician Unavailable Jennifer Mancuso Attending Clinician Jennifer MENDOZA Attending Clinician Unavailable Selena HAMILTON Attending Clinician Nisa HAMILTON Attending Clinician Alhaji HAMILTON, Yamil Attending Clinician Anival [facility] Attending Clinician Unavailable Lyndsay HAMILTON Attending Clinician Nasreen HAMILTON Attending Clinician Eulalio HAMILTON, Ashok Attending Clinician Tung HAMILTON, Jae Attending Clinician Marichuy HAMILTON Attending Clinician Erica HAMILTON, Toni Attending Clinician Barber Attending Clinician Unavailable Paola HAMILTON, Janice Attending Clinician Edwin HAMILTON Attending Clinician Varsha HAMILTON, [facility] Attending Clinician Ricky HOBSON Attending Clinician Unavailable NASREEN Admitting Clinician Unavailable MARICHUY Admitting Clinician Unavailable EDWIN Admitting Clinician Unavailable Payers Payer Name Policy Type Policy Number Effective Date Expiration Date Frances LARA II [id number] 2020 00:00:00 [place] [id number] 2018 00:00:00 Problems Condition Condition Condition Status Onset Resolution [...] Hospita 00 l Acute Acute Disease Active 2015- promyelocy promyelocy 2-22 An derso tic tic [...] Active 2020-12-03 M emoria (disorder) 21:41:00 l [facility] Hemiplegia (disorder) Active Problem 12/03/2020 [facility] Hypothyroi Problem Active 2020-12-03 M emoria dism 21:41:00 l (disorder) Murray n Hypothyroi dism (disorder) Active Problem 12/03/2020 [facility] Seizure Problem Active 2020-12-03 Unruly kieran disorder 21:41:00 l (disorder) Seizure Her sesay disorder (disorder) Active Problem 12/03/2020 [facility] Visual Problem Active 2020-12-03 Memor ia disturbanc 21:41:00 l e Visual Ricardo (disorder) disturbanc e (disorder) Active Problem 12/03/2020 [facility] No known No known Disease Unive rs active active ity of problems problems [facility] Allergies, Adverse Reactions, Alerts Allergy Allergy Status Severity Reaction(s) Onset Inactive Treating Comm ents Source Name Type Date Date Clinician CEPHALEX DRUG Active High Hives Univers IN INGREDI 8-15 ity of 00:00: 00 Medical Branch ONDANSET DRUG Active High Other-Cmnt Univ ers CLEO HCL INGREDI 8-15 ity of 00:00: [place] 00 Medical Branch Cephalex Drug Active Hives Univers in Allergy 815 ity of 00:00: 00 Medical Branch Ondanset Drug Active Other - See migraines Univers cleo Hcl Allergy comments 815 ity of 00:00: [place] 00 Medical Branch Zofran Propensi Active Other (See Bayl or Odt ty to Comments) 7-09 [place] adverse 00:00: of reaction 00 Medicin s to e drug Ferumoxy Propensi Active Anaphylaxis B aylor gilberto ty to 6-15 [place] adverse 00:00: of reaction 00 Medicin s to e drug FERUMOXY DRUG Active Anaphylaxis Uni vers GILBERTO INGREDI 4-26 ity of 00:00: [place] 00 Medical Branch Ferumoxy Propensi Active Anaphylaxis U nivers gilberto ty to 4-26 ity of adverse 00:00: [place] reaction 00 Medical s Branch Cephalex Propensi Active Hives 2019-04 [facility] i in ty to 0-16 [facility] adverse 00:00: Hospita reaction 00 l s to drug Latex Propensi Active Hives 2019-04 Methodi ty to 0-16 [facility] adverse 00:00: Hospita reaction 00 l s to drug Ondanset Propensi Active Headache 2019-04 Meth tanvi cleo Hcl ty to 0-16 st adverse 00:00: Hospita reaction 00 l s to drug Gadobutr Propensi Active Other (See 2019-04 Vomiting1 Methodi ol ty to Comments) 0 st adverse 00:00: 8:30pm- Hospita reaction 00 Per l s to patient drug denied shortness of breath, hives, itchiness . Only nauseous/ vomiting as a side effect after administr ation of Gadavist. 06/06/20: Patient Premedica leon with IV Promethaz ine for Nausea prior to MRI.Patie nt reported Nausea but no Vomiting noted after MRI Contrast given. Gadobutr Propensi Active Other (See Vomiting1 [facility] ol ty to Comments) 06-12 Colleg e adverse 00:00: 8:30pm- of reaction 00 Per Medicin s to patient e drug denied shortness of breath, hives, itchiness . Only nauseous/ vomiting as a side effect after administr ation of Gadavist. 06/06/20: Patient Premedica leon with IV Promethaz ine for Nausea prior to MRI.Patie nt reported Nausea but no Vomiting noted after MRI Contrast given.Juvenal sea / Vomiting- iodine prior to MRI Latex Propensi Active Swelling [facility] ty to 06-12 [place] adverse 00:00: of reaction 00 Medicin s to e substanc e GADOBUTR DRUG Active High Other-Cmnt Univ ers OL INGREDI 06-12 ity of 00:00: [place] 00 [facility] CEFPODOX DRUG Active Med Hives Univers NANNETTE INGREDI 06-12 ity of 00:00: Medical Branch Cefpodox Drug Active Hives Univers nannette Allergy 06-12 ity of 00:00: [place] 00 [facility] Gadobutr Drug Active Other - See Vomiting1 Univers ol Intolera comments 06-12 ity o f nce 00:00: 8:30pm- [place] 00 Per Medical patient Branch denied shortness of breath, hives, itchiness . Only nauseous/ vomiting as a side effect after administr ation of Gadavist. 06/06/20: Patient Premedica leon with IV Promethaz ine for Nausea prior to MRI.Patie nt reported Nausea but no Vomiting noted after MRI Contrast given.Juvenal sea / Vomiting- iodine prior to MRIVomiti ng/05/06 0 8:30pm- Per patient denied shortness of breath, hives, itchiness . Only nauseous/ vomiting as a side effect after administr ation of Gadavist. 06/06/20: Patient Premedica leon with IV Promethaz ine for Nausea prior to MRI.Patie nt reported Nausea but no Vomiting noted after MRI Contrast given.Juvenal sea / Vomiting- iodine prior to MRI Cephalex Propensi Active Itching 2012-04 [facility] ty to 06-03 College adverse 00:00: of reaction 00 Medicin s to e drug LATEX DRUG Active High Rash Univers INGREDI 3-15 ity of 00:00: [address] Latex Drug Active Swelling Univers Allergy 315 ity of 00:00: [address] Cephalex Adverse Active Info Not [facility] in Reaction Available [facility]ics Zofran Adverse Active Info Not [facility] Reaction Available [facility] ent Clinics NO KNOWN Drug Active Univers ALLERGIE [facility] cephalex cephalex Active Memori a in in l [place]ardo Latex Latex Active Memoria l [place] Gadavist Gadavist Active Memori a l [place] Zofran Zofran Active Memoria l [place] Feraheme Feraheme Active Memori a l [place] Family History Family Member Diagnosis Comments Start Date Stop Date Source Paternal grandfather Kidney cancer M Alyssa Aguirre Social History Social Habit Start Date Stop Date Quantity Comments Source [facility] to Not sure [facility] [place] [facility] [place] [facility] Branch Alcohol intake 2020-10-27 2020-10-27 Current drinker of [facility] of 00:00:00 00:00:00 alcohol (finding) Medicin e Tobacco use and 2020-02-21 2020-02-21 Never used [facility] llege of exposure 00:00:00 00:00:00 Medicine Alcohol Comment 2020-02-21 2020-02-[address] [facility] of 00:00:00 00:00:00 Medicine Social History 2018-10-01 2018-10-01 [facility] crystal 13:53:53 13:53:53 Sex Ass[birth year] At [birth year] MD [place] on 00:00:00 00:00:00 Smoking Status Start Date Stop Date Source Never smoker [facility] Medications Ordered Filled Start Stop Current Ordering Indication Dosage Frequency Signature Comments Components Source Medication Medication Date Date Medication? Clinician (SIG) Name Name brannon 2020-04 Yes [id number] 5mL Take 5 mL Univers mine-pseudo 05-16 by mouth 4 it y of ephedrine-D 00:00: (four[place] (BROMFED 00 times Medical DM) 2-30-10 daily as Bran ch mg/5 mL needed for syrup Congestion /Allergies or Cough. hydrOXYchlo 2020-04 Yes 200mg Take 200 U nivers roQUINE 200 0-12 mg by ity of mg tablet 00:00: mouth 2 (two) Medical times [place] daily. hydrOXYchlo 2020-04 Yes 200mg Take 200 U nivers roQUINE 200 0-12 mg by ity of mg tablet 00:00: mouth 2 (two) [facility] daily. ELIQUIS 5 Yes Univers mg tablet -17 ity of 00:00: 00 Medical Branch ELIQUIS 5 Yes Univers mg tablet 9-17 ity of 00:00: 00 [facility] VYVANSE 50 Yes 50mg Take 50 mg U nivers mg capsule 9-13 by mouth ity o f 00:00: every 00 morning. Medical Branch VYVANSE 50 Yes 50mg Take 50 mg U nivers mg capsule 9-13 by mouth ity o f 00:00: every [place] 00 morning. Medical Branch levothyroxi Yes TAKE 1 Univ ers ne 75 mcg 9-10 TABLET BY ity o f tablet 00:00: MOUTH [place] 00 EVERY DAY Medical IN THE Branch MORNING ON AN EMPTY STOMACH levothyroxi Yes TAKE 1 Univ ers ne 75 mcg 9-10 TABLET BY ity o f tablet 00:00: MOUTH [place] 00 EVERY DAY Medical IN THE Branch MORNING ON AN EMPTY STOMACH morpHINE 2020- No 4mg 4 mg, Slow Un pau injection 4 12-05 IV Push, ity of mg 02:30: 01:45 ONCE, 1 [place] 00 :00 dose, Mon Medical 12/04/20 at [place] 2130, STAT proMETHazin 2020- No 25mg 25 mg, IV Univers e 12-05 Piggyback, ity of (PHENERGAN) 02:30: 02:30 [place] in 00 :00 dose, Mon Medica l NaCl 0.9% 12/04/20 at [facility] ch (NS) 50 mL 2130, 50 piggyback mL NaCl 0.9% 2020- No 500mL at 999 Univ ers (NS) bolus 12-05 mL/hr, 500 it y of infusion 02:30: 04:34 mL, IV [place] 500 mL 00 :00 Piggyback, Medical ONCE, 1 Branch dose, 12/04/20 at 2130, STAT iopamidol 2020- No [id number] 120mL 120 mL, Univers (ISOVUE 12-05 Intravenou ity o f 370-500 mL) 02:02: 02:05 s, ONCE, 1 [place] injection 00 :00 dose, Mon Medic al 120 mL 12/04/20 at [place] 2115, Routine proMETHazin 2020- No [id number] 25mg Univers e 12-04 ity of (PHENERGAN) 01:00: 01:03 [place] injection 00 :00 Medical 25 mg Branch proMETHazin 0 2020- No [id number] 25mg 25 mg, Univers e 12-04 Intramuscu ity of (PHENERGAN) 01:00: 01:03 lar, ONCE, [place] injection 00 :00 1 dose, Medical 25 mg [facility] 12/03/20 at 1999, Routine proMETHazin 2020- No [id number] 25mg Univers e 12-04 ity of (PHENERGAN) 01:00: 01:03 [place] injection 00 :00 Medical 25 mg Branch proMETHazin 2020- No [id number] 25mg 25 mg, Univers e 12-04 Intramuscu ity of (PHENERGAN) 01:00: 01:03 lar, ONCE, [place] injection 00 :00 1 dose, Medical 25 mg [facility] 12/03/20 at 1999, Routine Bacillus Yes [facility] Coagulans-I 7 [facility] 11:49: of (ALIGN 52 Medicin PREBIOTIC-P e ROBIOTIC OR) Hydroxychlo 2021-0 Yes 200 mg = 1 Memoria roquine 6-24 tab, PO, l Sulfate 200 20:11: Daily, 0 He rmann MG Oral 00 Refill(s) Tablet Hydroxychlo 2021-0 Yes 200 mg = 1 Memoria roquine 6-24 tab, PO, l Sulfate 200 20:11: Daily, 0 He rmann MG Oral 00 Refill(s) Tablet Hydroxychlo 2021-0 Yes 200 mg = 1 Memoria roquine 6-24 tab, PO, l Sulfate 200 20:11: Daily, 0 He rmann MG Oral 00 Refill(s) Tablet Hydroxychlo 2021-0 Yes 200 mg = 1 Memoria roquine 6-24 tab, PO, l Sulfate 200 20:11: Daily, 0 He rmann MG Oral 00 Refill(s) Tablet Hydroxychlo 2021-0 Yes 200 mg = 1 Memoria roquine 6-24 tab, PO, l Sulfate 200 20:11: Daily, 0 He rmann MG Oral 00 Refill(s) Tablet 24 HR Yes 400 mg = 2 Memori a topiramate 6-24 cap, PO, l 200 MG 20:06: Bedtime, # Rupal nn Extended 00 180 cap, 2 Release Refill(s), [id number], 167.64, cm, 10/12/20 14:33:00 CDT, Height, 86.818, kg, 10/12/20 14:33:00 CDT, Weight 24 HR Yes 400 mg = 2 Memori a topiramate 6-24 cap, PO, l 200 MG 20:06: Bedtime, # Rupal nn Extended 00 180 cap, 2 Release Refill(s), Capsule Pharmacy: [[facility] #[id number], 167.64, cm, 10/12/20 14:33:00 CDT, Height, 86.818, kg, 10/12/20 14:33:00 CDT, Weight 24 HR Yes 400 mg = 2 Memori a topiramate 6-24 cap, PO, l 200 MG 20:06: Bedtime, # Rupal nn Extended 00 180 cap, 2 Release Refill(s), [id number], 167.64, cm, 10/12/20 14:33:00 CDT, Height, 86.818, kg, 10/12/20 14:33:00 CDT, Weight 24 HR Yes 400 mg = 2 Memori a topiramate 6-24 cap, PO, l 200 MG 20:06: Bedtime, # Rupal nn Extended 00 180 cap, 2 Release Refill(s), [id number], 167.64, cm, 10/12/20 14:33:00 CDT, Height, 86.818, kg, 10/12/20 14:33:00 CDT, Weight 24 HR Yes 400 mg = 2 Memori a topiramate 6-24 cap, PO, l 200 MG 20:06: Bedtime, # Rupal nn Extended 00 180 cap, 2 Release Refill(s), [id number], 167.64, cm, 10/12/20 14:33:00 CDT, Height, 86.818, kg, 10/12/20 14:33:00 CDT, Weight omeprazole 2020-0 Yes TAKE ONE Mem oria 40 mg oral 6-24 CAPSULE BY l delayed 19:42: MOUTH [facility] release 00 EVERY capsule MORNING mesalamine 0 Yes TAKE 2 Memor ia 500 MG 6-24 CAPSULES l Extended 19:42: BY MOUTH Rupal nn Release 00 TWICE Capsule DAILY [[facility]] omeprazole 2020-0 Yes TAKE ONE Mem oria 40 mg oral 6-24 CAPSULE BY l delayed 19:42: MOUTH [facility] release 00 EVERY capsule MORNING mesalamine 2020-0 Yes TAKE 2 Memor ia 500 MG 6-24 CAPSULES l Extended 19:42: BY MOUTH Rupal nn Release 00 TWICE Capsule DAILY [[facility]] omeprazole 2020-0 Yes TAKE ONE Mem oria 40 mg oral 6-24 CAPSULE BY l delayed 19:42: MOUTH [facility] release 00 EVERY capsule MORNING mesalamine 2020-0 Yes TAKE 2 Memor ia 500 MG 6-24 CAPSULES l Extended 19:42: BY MOUTH Rupal nn Release 00 TWICE Capsule DAILY [[facility]] omeprazole 2021-0 Yes TAKE ONE Mem oria 40 mg oral 6-24 CAPSULE BY l delayed 19:42: MOUTH [facility] release 00 EVERY capsule MORNING mesalamine Yes TAKE 2 Memor ia 500 MG 6-24 CAPSULES l Extended 19:42: BY MOUTH Rupal nn Release 00 TWICE Capsule DAILY [[facility]] omeprazole Yes TAKE ONE Mem oria 40 mg oral 6-24 CAPSULE BY l delayed 19:42: MOUTH [facility] release 00 EVERY capsule MORNING mesalamine Yes TAKE 2 Memor ia 500 MG 6-24 CAPSULES l Extended 19:42: BY MOUTH Rupal nn Release 00 TWICE Capsule DAILY [[facility]entasa] Famotidine No 0 Memoria 40 MG Oral 6-24 Refill(s) l Tablet 19:41: [place] 00 linaclotide Yes 145 Memori a 0.145 MG 6-24 microgram l Oral 19:41: = 1 cap, [facility] Capsule 00 PO, Daily, [Linzess] 30 minutes prior to the first meal of the day, # 30 cap, 0 Refill(s) Famotidine 0 No 0 Memoria 40 MG Oral 6-24 Refill(s) l Tablet 19:41: [facility] 00 linaclotide Yes 145 Memori a 0.145 MG 6-24 microgram l Oral 19:41: = 1 cap, [facility] Capsule 00 PO, Daily, [Linzess] 30 minutes prior to the first meal of the day, # 30 cap, 0 Refill(s) Famotidine 0 No 0 Memoria 40 MG Oral 6-24 Refill(s) l Tablet 19:41: [place] 00 linaclotide 2020-0 Yes 145 Memori a 0.145 MG 6-24 microgram l Oral 19:41: = 1 cap, [facility] Capsule 00 PO, Daily, [Linzess] 30 minutes prior to the first meal of the day, # 30 cap, 0 Refill(s) Famotidine 2020-0 No 0 Memoria 40 MG Oral 6-24 Refill(s) l Tablet 19:41: [place] 00 linaclotide 2020-0 Yes 145 Memori a 0.145 MG 6-24 microgram l Oral 19:41: = 1 cap, [facility] Capsule 00 PO, Daily, [Linzess] 30 minutes prior to the first meal of the day, # 30 cap, 0 Refill(s) Famotidine No 0 Memoria 40 MG Oral 6-24 Refill(s) l Tablet 19:41: [place] 00 linaclotide Yes 145 Memori a 0.145 MG 6-24 microgram l Oral 19:41: = 1 cap, Ricardo Capsule 00 PO, Daily, [Linzess] 30 minutes prior to the first meal of the day, # 30 cap, 0 Refill(s) hydroxychlo Yes [id number] 200mg Take 1 [facility] roquine 5-28 Tablet by [place] (PLAQUINIL) 00:00: mouth two o f 200 MG 00 times Medicin tablet daily. e Bacillus Yes [facility] Coagulans-I 5-21 [place] nulin 10:19: of (ALIGN 56 Medicin PREBIOTIC-P e ROBIOTIC OR) predniSONE Yes 15mg Take 3 [facility] (DELTASONE) 5-21 Tablets by Co llege 5 MG tablet 00:00: mouth of 00 daily. Medicin e predniSONE Yes 15mg Take 3 [facility] (DELTASONE) 5-21 Tablets by Co llege 5 MG tablet 00:00: mouth of 00 daily. Medicin e 24 HR Yes 200 mg = 1 Memori a topiramate 5-11 cap, PO, l 200 MG 21:45: Daily, # [facility] Extended 00 90 cap, 2 Release Refill(s), Capsule Pharmacy: [[facility]] [facility], 167.64, cm, 04/19/20 14:37:00 [employer], Height, 87.273, kg, 08/29/20 16:36:00 CDT, Weight 24 HR Yes 200 mg = 1 Memori a topiramate 5-11 cap, PO, l 200 MG 21:45: Daily, # Ricardo Extended 00 90 cap, 2 Release Refill(s), Capsule Pharmacy: [[facility]] [facility], 167.64, cm, 04/19/20 14:37:00 [employer], Height, 87.273, kg, 08/29/20 16:36:00 CDT, Weight 24 HR 2021-0 Yes 200 mg = 1 Memori a topiramate 5-11 cap, PO, l 200 MG 21:45: Daily, # [facility] Extended 00 90 cap, 2 Release Refill(s), Capsule Pharmacy: [[facility]] [facility], 167.64, cm, 04/19/20 14:37:00 [employer], Height, 87.273, kg, 08/29/20 16:36:00 CDT, Weight 24 HR 2020-0 Yes 200 mg = 1 Memori a topiramate 5-11 cap, PO, l 200 MG 21:45: Daily, # [facility] Extended 00 90 cap, 2 Release Refill(s), Capsule Pharmacy: [[facility]] [facility], 167.64, cm, 04/19/20 14:37:00 [employer], Height, 87.273, kg, 08/29/20 16:36:00 CDT, Weight 24 HR 2020-0 Yes 200 mg = 1 Memori a topiramate 5-11 cap, PO, l 200 MG 21:45: Daily, # Ricardo Extended 00 90 cap, 2 Release Refill(s), Capsule Pharmacy: [[facility]] [facility], 167.64, cm, 04/19/20 14:37:00 [employer], Height, 87.273, kg, 08/29/20 16:36:00 CDT, Weight apixaban 5 2020-0 Yes 5 mg, PO, Me moria MG Oral 5-11 Q12H, # 60 l Tablet 21:43: tab, 0 [facility] [Eliquis] 00 Refill(s), Pharmacy: [facility], 167.64, cm, 04/19/20 14:37:00 [employer], Height, 87.273, kg, 08/29/20 16:36:00 CDT, Weight apixaban 5 1-0 Yes 5 mg, PO, Me moria MG Oral 5-11 Q12H, # 60 l Tablet 21:43: tab, 0 Ricardo [Eliquis] 00 Refill(s), Pharmacy: [facility], 167.64, cm, 04/19/20 14:37:00 [employer], Height, 87.273, kg, 08/29/20 16:36:00 CDT, Weight apixaban 5 2021-0 Yes 5 mg, PO, Me moria MG Oral 5-11 Q12H, # 60 l Tablet 21:43: tab, 0 [facility] [Eliquis] 00 Refill(s), Pharmacy: [facility], 167.64, cm, 04/19/20 14:37:00 [employer], Height, 87.273, kg, 08/29/20 16:36:00 CDT, Weight apixaban 5 2020-0 Yes 5 mg, PO, Me moria MG Oral 5-11 Q12H, # 60 l Tablet 21:43: tab, 0 Ricardo [Eliquis] 00 Refill(s), Pharmacy: [facility], 167.64, cm, 04/19/20 14:37:00 [employer], Height, 87.273, kg, 08/29/20 16:36:00 CDT, Weight apixaban 5 2020-0 Yes 5 mg, PO, Me moria MG Oral 5-11 Q12H, # 60 l Tablet 21:43: tab, 0 Ricardo [Eliquis] 00 Refill(s), Pharmacy: [facility], 167.64, cm, 04/19/20 14:37:00 [employer], Height, 87.273, kg, 08/29/20 16:36:00 CDT, Weight [...] PO, Daily, # 30 tab, 0 Refill(s) linaCLOtide 0 Yes [facility] (LINZESS) 4-30 [place] 145 MCG 00:00: of CAPS Medicin e linaCLOtide 2020-0 Yes [facility] (LINZESS) 4-30 [place] 145 MCG 00:00: of CAPS Medicin e Mesalamine 0 Yes [facility] (PENTASA) 4-28 [place] 500 MG CPCR 00:00: of Medicin e Mesalamine 2020-0 Yes [facility] (PENTASA) 4-28 [place] 500 MG CPCR 00:00: of Medicin e ELIQUIS 5 2020-0 Yes [facility] MG TABS 4-22 [place] 00:00: of 00 Medicin e ELIQUIS 5 2020-0 Yes Arya MG TABS 4-22 [place] 00:00: of Medicin e levothyroxi 0 Yes TAKE 1 [facility] or ne 4-07 TABLET BY [place] (SYNTHROID) 00:00: MOUTH of 50 MCG 00 EVERY DAY Medicin tablet IN THE e MORNING ON AN EMPTY STOMACH levothyroxi 2020-0 Yes TAKE 1 [facility]l or ne 4-07 TABLET BY [place] (SYNTHROID) 00:00: MOUTH of 50 MCG 00 EVERY DAY Medicin tablet IN THE e MORNING ON AN EMPTY STOMACH TROKENDI XR 2020-0 Yes 200mg 200 mg. Ba ylor 100 MG 24 3-16 [place] 00:00: of 00 Medicin e TROKENDI XR 2020-0 Yes 400mg 400 mg. Ba ylor 100 MG CP24 3-16 [place] 00:00: of 00 Medicin e topiramate 2020-0 Yes 400mg 400 mg. Uni vers (TROKENDI 3-16 ity of XR) 100 mg 00:00: [place] [address] Medical Branch topiramate 2020-0 Yes 400mg 400 mg. Uni vers (TROKENDI 3-16 ity of XR) 100 mg 00:00: [place] [address] Medical Branch famotidine 2020-0 Yes 40mg 40 mg. [facility] (PEPCID) 20 2-25 College MG tablet 00:00: Medicin e famotidine 0 Yes 40mg 40 mg. [facility] (PEPCID) 20 2-25 College MG tablet 00:00: Medicin e acetaminoph 0 Yes 500mg Q6H Take 500 M ethodi [...] 50 MG 53 morning. l capsule famotidine 0 Yes 20mg QD Take 20 mg M ethodi (PEPCID) 20 2-[address] MG tablet 18:53: daily. Hospit a 53 l montelukast 0 Yes 10mg QD Take 10 mg Methodi (SINGULAIR) 2-[address] 10 mg 18:53: daily. Hospita tablet 53 l 24 HR 2019-04 Yes 100 mg = 1 Memori a topiramate 2-30 cap, PO, l 100 MG 21:09: Bedtime, # Rupal nn Extended 00 90 cap, 2 Release Refill(s), [facility][id number], 167.64, cm, 04/19/20 14:37:00 [employer], Height, 104.545, kg, 04/19/20 14:37:00 [employer]ATE, Weight 24 HR 2019-04 Yes 100 mg = 1 Memori a topiramate 2-30 cap, PO, l 100 MG 21:09: Bedtime, # Rupal nn Extended 00 90 cap, 2 Release Refill(s), Capsule Pharmacy: [[facility] #[id number], 167.64, cm, 04/19/20 14:37:00 [employer] ASSOCIATE, Height, 104.545, kg, 04/19/20 14:37:00 [employer]IATE, Weight 24 HR 2019-04 Yes 100 mg = 1 Memori a topiramate 2-30 cap, PO, l 100 MG 21:09: Bedtime, # Rupal nn Extended 00 90 cap, 2 Release Refill(s), Capsule Pharmacy: [[facility] #[id number], 167.64, cm, 04/19/20 14:37:00 [employer] ASSOCIATE, Height, 104.545, kg, 04/19/20 14:37:00 [employer] ASSOCIATE, Weight 24 HR 2019-04 Yes 100 mg = 1 Memori a topiramate 2-30 cap, PO, l 100 MG 21:09: Bedtime, # Rupal nn Extended 00 90 cap, 2 Release Refill(s), Capsule Pharmacy: [[facility] #[id number], 167.64, cm, 04/19/20 14:37:00 [employer] ASSOCIATE, Height, 104.545, kg, 04/19/20 14:37:00 [employer] ASSOCIATE, Weight 24 HR 2019-04 Yes 100 mg = 1 Memori a topiramate 2-30 cap, PO, l 100 MG 21:09: Bedtime, # Rupal nn Extended 00 90 cap, 2 Release Refill(s), Capsule Pharmacy: [[facility] #[id number], 167.64, cm, 04/19/20 14:37:00 [employer] ASSOCIATE, Height, 104.545, kg, 04/19/20 14:37:00 [employer]ATE, Weight Famotidine 2019-04 Yes 40 mg, PO, M emoria 2-30 Daily, # l 20:40: 60 tab, 0 [facility] 00 Refill(s) Nulev 2019-04 Yes 0.125 mg, Memoria 2-30 PO, QID, 0 l 20:40: Refill(s) Ricardo Famotidine 2019-04 Yes 40 mg, PO, M emoria 2-30 Daily, # l 20:40: 60 tab, 0 Ricardo 00 Refill(s) Nulev 2019-04 Yes 0.125 mg, Memoria 2-30 PO, QID, 0 l 20:40: Refill(s) [facility] 00 Famotidine 2019-04 Yes 40 mg, PO, M emoria 2-30 Daily, # l 20:40: 60 tab, 0 [facility] 00 Refill(s) Nulev 2019-04 Yes 0.125 mg, [...] Take 1 M ethodi dung HCl 1-10 02-[address] (REGLAN 00:00: 00:00 mouth as Hospi ta ORAL) 00 :00 needed. l esomeprazol 2019-04 Yes [facility] e (NEXIUM) 0-30 College 40 MG 00:00: of capsule 00 Medicin e esomeprazol 2019-04 Yes Arya e (NEXIUM) 0-30 College 40 MG 00:00: of capsule 00 Medicin e esomeprazol 2019-04 Yes Univer s e 40 mg 0-30 ity of capsule 00:00: [address] esomeprazol 2019-04 Yes Univer s e 40 mg 0-30 ity of capsule 00:00: [address] omeprazole 2019-04- No 20mg QD Take 1 Meth tanvi OTC 0-28 11-28 tablet (20 st (PriLOSEC 00:00: 05:59 mg total) Ho spita OTC) 20 MG 00 :00 by mouth l EC tablet daily for 30 days. metoclopram 2019-04- No 5mg [id number] Take 1 Methodi dung 0-28 11-03 [id number] tablet (5 st (Reglan) 5 00:00: 05:59 3D mg total) H ospita MG tablet 00 :00 by mouth 3 l (three) times a day as needed (nausea, vomiting) for up to 5 days. lisdexamfet 2019-04- No 40mg QD Take 40 mg Methodi amine 0-26 10-[address] (VYVANSE) 18:16: 00:00 daily. Hospi ta 40 MG 29 :00 (per l capsule patient, stopped taking it last week - unknown reason); (per [place] [facility], last filled 12/18/19, quantity: 30, day supply: 30) pantoprazol 2019-04 Yes TAKE ONE Ba ylor e 0-22 (1) College (PROTONIX) 00:00: TABLET(S) of 40 MG 00 BY MOUTH Medicin tablet ONCE A e DAY. pantoprazol 2019-04 Yes TAKE ONE Ba ylor e 0-22 (1) [employer] (PROTONIX) 00:00: TABLET(S) of 40 MG 00 BY MOUTH Medicin tablet ONCE A e DAY. metoclopram 2019-04 Yes [facility] dung 0-21 College (REGLAN) 10 00:00: of MG tablet 00 Medicin e albuterol 2019-04 Yes INHALE 1-2 Ba ylor 108 (90 0-21 PUFFS PO College base) 00:00: EVERY 4-6 of mcg/act 00 HOURS Medicin inhaler e albuterol 2019-04 Yes INHALE 1-2 Ba ylor 108 (90 0-21 PUFFS PO [employer] base) 00:00: EVERY 4-6 of mcg/act 00 HOURS Medicin inhaler e metoclopram 2019-04 No [facility]ung 0-21 07-09 College (REGLAN) 10 00:00: 00:00 of MG tablet 00 :00 Medicin e topiramate 2019-04- No 1{capsu QD Take 1 [...] - per patient) metoclopram 2019-04- No 5mg [id number] Take 1 Methodi dung 0-20 02-15 [id number] tablet (5 st (Reglan) 5 00:00: 00:00 [...] Ricardo [Trileptal] 19 tab, 3 Refill(s), Pharmacy: [facility] #[id number] oxcarbazepi 2018- Yes 300 mg = 1 Memoria ne 300 MG 9-06 tab, PO, l Oral Tablet 16:04: BID, # 180 [facility] [Trileptal] 19 tab, 3 Refill(s), Pharmacy: [facility] #[id number] oxcarbazepi 2018- Yes 300 mg = 1 Memoria ne 300 MG 9-06 tab, PO, l Oral Tablet 16:04: BID, # 180 Ricardo [Trileptal] 19 tab, 3 Refill(s), Pharmacy: [facility] #[id number] oxcarbazepi 2019-0 Yes 300 mg = 1 Memoria ne 300 MG 9-06 tab, PO, l Oral Tablet 16:04: BID, # 180 Ricardo [Trileptal] 19 tab, 3 Refill(s), Pharmacy: [facility] #[id number] oxcarbazepi 2019-0 Yes 300 mg = 1 Memoria ne 300 MG 9-06 tab, PO, l Oral Tablet 16:04: BID, # 180 Ricardo [Trileptal] 19 tab, 3 Refill(s), Pharmacy: [facility] #[id number] HR 2018-0 Yes 100 mg = 1 Memori a topiramate 9-06 cap, PO, l 100 MG 16:04: Daily, # Ricardo Extended 10 90 cap, 3 Release Refill(s), Capsule Pharmacy: [[facility] #[id number] HR 2018-0 Yes 100 mg = 1 Memori a topiramate 9-06 cap, PO, l 100 MG 16:04: Daily, # Ricardo Extended 10 90 cap, 3 Release Refill(s), Capsule Pharmacy: [[facility] #[id number] HR 2018-0 Yes 100 mg = 1 Memori a topiramate 9-06 cap, PO, l 100 MG 16:04: Daily, # Ricardo Extended 10 90 cap, 3 Release Refill(s), Capsule Pharmacy: [[facility] #[id number] HR 2019-0 Yes 100 mg = 1 Memori a topiramate 9-06 cap, PO, l 100 MG 16:04: Daily, # Ricardo Extended 10 90 cap, 3 Release Refill(s), Capsule Pharmacy: [[facility] #[id number] HR 2018-0 Yes 100 mg = 1 Memori a topiramate 9-06 cap, PO, l 100 MG 16:04: Daily, # [facility] Extended 10 90 cap, 3 Release Refill(s), Capsule Pharmacy: [[facility] #[id number] HR 2018-0 No 100 mg = 1 Memori a topiramate 9-04 cap, PO, l 100 MG 18:31: Daily, X Ricardo Extended 30 day, # Release 30 cap, 3 Capsule Refill(s), [Trokendi] Pharmacy: [facility] No 100 mg = 1 Memori a topiramate 9-04 cap, PO, l 100 MG 18:31: Daily, X Ricardo Extended 30 day, # Release 30 cap, 3 Capsule Refill(s), [Trokendi] Pharmacy: [facility] No 100 mg = 1 Memori a topiramate 9-04 cap, PO, l 100 MG 18:31: Daily, X Ricardo Extended 30 day, # Release 30 cap, 3 Capsule Refill(s), [Trokendi] Pharmacy: [facility] No 100 mg = 1 Memori a topiramate 9-04 cap, PO, l 100 MG 18:31: Daily, X [facility] Extended 30 day, # Release 30 cap, 3 Capsule Refill(s), [Trokendi] Pharmacy: [facility] No 100 mg = 1 Memori a topiramate 9-04 cap, PO, l 100 MG 18:31: Daily, X Ricardo Extended 30 day, # Release 30 cap, 3 Capsule Refill(s), [Trokendi] Pharmacy: [facility] No 300 mg = 1 Memoria ne 300 MG 9-04 tab, PO, l Oral Tablet 18:31: BID, X 30 H ermann [Trileptal] 02 day, # 60 tab, 3 Refill(s), Pharmacy: [facility] No 300 mg = 1 Memoria ne 300 MG 9-04 tab, PO, l Oral Tablet 18:31: BID, X 30 H ermann [Trileptal] 02 day, # 60 tab, 3 Refill(s), Pharmacy: [facility] No 300 mg = 1 Memoria ne 300 MG 9-04 tab, PO, l Oral Tablet 18:31: BID, X 30 H ermann [Trileptal] 02 day, # 60 tab, 3 Refill(s), Pharmacy: [facility] No 300 mg = 1 Memoria ne 300 MG 9-04 tab, PO, l Oral Tablet 18:31: BID, X 30 H ermann [Trileptal] 02 day, # 60 tab, 3 Refill(s), Pharmacy: [facility] oxcarbazepi No 300 mg = 1 Memoria ne 300 MG 9-04 tab, PO, l Oral Tablet 18:31: BID, X 30 H ermann [Trileptal] 02 day, # 60 tab, 3 Refill(s), Pharmacy: [facility] lisdexamfet Yes 30 mg = [...] 00 30 cap, 2 capsule Refill(s), Pharmacy: [facility] Pharm[facility] [place] omeprazole Yes 20 mg = 1 Me moria 20 mg oral 7-17 cap, PO, l delayed 00:27: Daily, # Murray n release 00 30 cap, 2 capsule Refill(s), Pharmacy: [facility] omeprazole Yes 20 mg = 1 Me moria 20 mg oral 7-17 cap, PO, l delayed 00:27: Daily, # Murray n release 00 30 cap, 2 capsule Refill(s), Pharmacy: [facility] omeprazole Yes 20 mg = 1 Me moria 20 mg oral 7-17 cap, PO, l delayed 00:27: Daily, # Murray n release 00 30 cap, 2 capsule Refill(s), Pharmacy: [facility] omeprazole Yes 20 mg = 1 Me moria 20 mg oral 7-17 cap, PO, l delayed 00:27: Daily, # Murray n release 00 30 cap, 2 capsule Refill(s), Pharmacy: [facility] oxcarbazepi Yes 300 mg = 1 Memoria ne 300 MG 7-03 tab, PO, l Oral Tablet 18:01: BID, # 60 H ermann [Trileptal] 00 tab, 2 Refill(s), Pharmacy: [facility] oxcarbazepi Yes 300 mg = 1 Memoria ne 300 MG 7-03 tab, PO, l Oral Tablet 18:01: BID, # 60 H ermann [Trileptal] 00 tab, 2 Refill(s), Pharmacy: [facility] oxcarbazepi Yes 300 mg = 1 Memoria ne 300 MG 7-03 tab, PO, l Oral Tablet 18:01: BID, # 60 H ermann [Trileptal] 00 tab, 2 Refill(s), Pharmacy: [facility] oxcarbazepi Yes 300 mg = 1 Memoria ne 300 MG 7-03 tab, PO, l Oral Tablet 18:01: BID, # 60 H ermann [Trileptal] 00 tab, 2 Refill(s), Pharmacy: [facility] oxcarbazepi Yes 300 mg = 1 Memoria ne 300 MG 7-03 tab, PO, l Oral Tablet 18:01: BID, # 60 H ermann [Trileptal] 00 tab, 2 Refill(s), Pharmacy: [facility] HR Yes 100 mg = 1 Memori a topiramate 6-28 cap, PO, l 100 MG 14:50: Daily, # [facility] Extended 00 30 cap, 3 Release Refill(s), Capsule Pharmacy: [[facility]] [facility] Yes 100 mg = 1 Memori a topiramate 6-28 cap, PO, l 100 MG 14:50: Daily, # Ricardo Extended 00 30 cap, 3 Release Refill(s), Capsule Pharmacy: [[facility]] [facility] Yes 100 mg = 1 Memori a topiramate 6-28 cap, PO, l 100 MG 14:50: Daily, # [facility] Extended 00 30 cap, 3 Release Refill(s), Capsule Pharmacy: [[facility]] [facility] Yes 100 mg = 1 Memori a topiramate 6-28 cap, PO, l 100 MG 14:50: Daily, # Ricardo Extended 00 30 cap, 3 Release Refill(s), Capsule Pharmacy: [[facility]] [facility] Yes 100 mg = 1 Memori a topiramate 6-28 cap, PO, l 100 MG 14:50: Daily, # [facility] Extended 00 30 cap, 3 Release Refill(s), Capsule Pharmacy: [[facility]] [facility] Yes 25 mg = 1 Me moria 25 MG Oral 6-14 tab, PO, l Tablet 23:33: BID, # 60 Murray n [Topamax] 00 tab, 2 Refill(s), Pharmacy: [facility] Yes 25 mg = 1 Me moria 25 MG Oral 6-14 tab, PO, l Tablet 23:33: BID, # 60 Murray n [Topamax] 00 tab, 2 Refill(s), Pharmacy: [facility] Yes 25 mg = 1 Me moria 25 MG Oral 6-14 tab, PO, l Tablet 23:33: BID, # 60 Murray n [Topamax] 00 tab, 2 Refill(s), Pharmacy: [facility] Yes 25 mg = 1 Me moria 25 MG Oral 6-14 tab, PO, l Tablet 23:33: BID, # 60 Murray n [Topamax] 00 tab, 2 Refill(s), Pharmacy: [facility] topiramate Yes 25 mg = 1 Me moria 25 MG Oral 6-14 tab, PO, l Tablet 23:33: BID, # 60 Murray n [Topamax] 00 tab, 2 Refill(s), Pharmacy: [facility] Phenytoin Yes 200 mg = 2 Me moria sodium 100 6-13 cap, PO, l MG Extended 13:57: BID, # 120 [facility] Release 00 cap, 3 Capsule Refill(s), [Dilantin] Pharmacy: [facility] Phenytoin Yes 200 mg = 2 Me moria sodium 100 6-13 cap, PO, l MG Extended 13:57: BID, # 120 [facility] Release 00 cap, 3 Capsule Refill(s), [Dilantin] Pharmacy: [facility] Phenytoin Yes 200 mg = 2 Me moria sodium 100 6-13 cap, PO, l MG Extended 13:57: BID, # 120 [facility] Release 00 cap, 3 Capsule Refill(s), [Dilantin] Pharmacy: [facility] Phenytoin Yes 200 mg = 2 Me moria sodium 100 6-13 cap, PO, l MG Extended 13:57: BID, # 120 Ricardo Release 00 cap, 3 Capsule Refill(s), [Dilantin] Pharmacy: [facility] Phenytoin Yes 200 mg = 2 Me moria sodium 100 6-13 cap, PO, l MG Extended 13:57: BID, # 120 Ricardo Release 00 cap, 3 Capsule Refill(s), [Dilantin] Pharmacy: [facility] Alprazolam Yes 0.5 mg = 1 M emoria 0.5 MG Oral 6-13 tab, PO, l Tablet 13:28: TID, 0 [facility] [Xanax] 00 Refill(s) Zyrtec Yes Daily, 0 Memoria 6-13 Refill(s) l 13:28: [facility] 00 Alprazolam 2019-0 Yes 0.5 mg = 1 M emoria 0.5 MG Oral 6-13 tab, PO, l Tablet 13:28: TID, 0 Ricardo [Xanax] 00 Refill(s) Zyrtec 2019-0 Yes Daily, 0 Memoria 6-13 Refill(s) l 13:28: Alprazolam 2019-0 Yes 0.5 mg = 1 M emoria 0.5 MG Oral 6-13 tab, PO, l Tablet 13:28: TID, 0 [facility] [Xanax] 00 Refill(s) Zyrtec 0 Yes Daily, 0 Memoria 6-13 Refill(s) l 13:28: Alprazolam 20190 Yes 0.5 mg = 1 M emoria 0.5 MG Oral 6-13 tab, PO, l Tablet 13:28: TID, 0 Ricardo [Xanax] 00 Refill(s) Zyrtec 0 Yes Daily, 0 Memoria 6-13 Refill(s) l 13:28: Alprazolam 0 Yes 0.5 mg = 1 M emoria 0.5 MG Oral 6-13 tab, PO, l Tablet 13:28: TID, 0 [facility] [Xanax] 00 Refill(s) Zyrtec 0 Yes Daily, 0 Memoria 6-13 Refill(s) l 13:28: Phenytoin No 100 mg = 1 Me [...] Release 00 cap, 1 Capsule Refill(s) [Dilantin] montelukast Yes 10mg Take 10 mg Univers 10 mg 1-15 by mouth. ity of tablet 00:00: [address] montelukast Yes 10mg Take 10 mg Univers 10 mg 1-15 by mouth. ity of tablet 00:00: [address] VYVANSE 40 Yes 1{tbl} Take 1 MD mg capsule 9-19 tablet by Andrea rso 00:00: mouth n 00 daily. No known No Univers medications [facility] No known No Univers medications [facility] Immunizations Ordered Immunization Filled Immunization Date Status Commen ts Source Name Name Bamitaloimab 2020-06-10 Completed [facility] 00:[facility] FLUCELVAX QUAD PF 2020-02-[address] 00:[facility]00 [facility] Influenza Split Completed MD Charles on 00:00:00 Vital Signs Vital Name Observation Time Observation Value Comments Source Systolic blood 2021-03-16 15:58:00 114 mm[Hg] Univer sity [facility] Diastolic blood 2021-03-16 15:58:00 75 mm[Hg] [facility] 2021-03-16 15:58:00 76 /min [facility] Body temperature 2021-03-16 15:58:00 36.78 Staci [facility] Respiratory rate 2021-03-16 15:58:00 17 /min [facility] Body height 2021-03-16 15:58:00 167.6 cm [facility] Body weight 2021-03-16 15:58:00 78.926 kg [facility] BMI 2021-03-16 15:58:00 28.08 kg/m2 [facility] Oxygen saturation in 2021-03-16 15:58:00 96 /min [facility] of Arterial blood by [facility] Pulse oximetry Branch Systolic blood 2021-02-20 14:14:00 120 mm[Hg] Univer sity of pressure [place] [facility] Diastolic blood 2021-02-20 14:14:00 79 mm[Hg] Unive rsity of pressure [place] [facility] Heart rate 2021-02-20 14:14:00 74 /min [facility] [place] [facility] Body temperature 2021-02-20 14:14:00 36.78 Staci [facility] [place] [facility] Respiratory rate 2021-02-20 14:14:00 16 /min [facility] [place] [facility] Body weight 2021-02-20 14:14:00 79.833 kg [facility] [place] [facility] BMI 2021-02-20 14:14:00 30.21 kg/m2 [facility] [place] [facility] Oxygen saturation in 2021-02-20 14:14:00 99 /min [facility] Arterial blood by [facility] Pulse oximetry Branch Systolic blood 2020-12-05 03:35:00 121 mm[Hg] Univer sity of pressure [place] [facility] Diastolic blood 2020-12-05 03:35:00 83 mm[Hg] Unive rsity of pressure [place] [facility] Heart rate 2020-12-05 03:35:00 79 /min [facility] [place] [facility] Oxygen saturation in 2020-12-05 03:35:00 100 /min [facility] Arterial blood by [facility] Pulse oximetry Branch Body temperature 2020-12-05 01:16:00 37.11 Staci [facility] [place] [facility] Respiratory rate 2020-12-05 01:16:00 18 /min [facility] [place] [facility] Body height 2020-12-05 01:16:00 167.6 cm [facility] [place] [facility] Body weight 2020-12-05 01:16:00 81.647 kg [facility] [place] [facility] BMI 2020-12-05 01:16:00 29.05 kg/m2 [facility] [place] [facility] Systolic blood 2020-12-04 00:19:00 114 mm[Hg] Univer sity of [facility] [place] [facility] Diastolic blood 2020-12-04 00:19:00 79 mm[Hg] [facility] Heart rate 2020-12-04 00:19:00 92 /min [facility] Body temperature 2020-12-04 00:19:00 37.17 Staci [facility] Respiratory rate 2020-12-04 00:19:00 18 /min [facility] Body height 2020-12-04 00:19:00 167.6 cm [facility] Body weight 2020-12-04 00:19:00 81.647 kg [facility] BMI 2020-12-04 00:19:00 29.05 kg/m2 [facility] Oxygen saturation in 2020-12-04 00:19:00 99 /min [facility] Arterial blood by [facility] Pulse oximetry Branch Systolic blood 2020-10-27 16:50:00 125 mm[Hg] [facility] Medicine Diastolic blood 2020-10-27 16:50:00 85 mm[Hg] [facility] Medicine Heart rate 2020-10-27 16:50:00 96 /min [facility] Respiratory rate 2020-10-27 16:50:00 16 /min [facility] Body height 2020-10-27 16:50:00 167.6 cm [facility] Body weight 2020-10-27 16:50:00 86.637 kg [facility] BMI 2020-10-27 16:50:00 30.83 kg/m2 [facility] Oxygen saturation in 2020-10-27 16:50:00 100 /min [facility] Arterial blood by [facility] Pulse oximetry Systolic blood 2020-10-27 16:50:00 125 mm[Hg] [facility] Medicine Diastolic blood 2020-10-27 16:50:00 85 mm[Hg] [facility] Medicine Heart rate 2020-10-27 16:50:00 96 /min [facility] Respiratory rate 2020-10-27 16:50:00 16 /min [facility] Body height 2020-10-27 16:50:00 167.6 cm [facility] of Medicine Body weight 2020-10-27 16:50:00 86.637 kg [facility] BMI 2020-10-27 16:50:00 30.83 kg/m2 [facility] Oxygen saturation in 2020-10-27 16:50:00 100 /min [facility] College of Arterial blood by Medicine Pulse oximetry Systolic blood 2020-09-08 15:15:00 118 mm[Hg] [facility] of pressure Medicine Diastolic blood 2020-09-08 15:15:00 79 mm[Hg] [facility] of pressure Medicine Heart rate 2020-09-08 15:15:00 84 /min [facility] Respiratory rate 2020-09-08 15:15:00 16 /min [facility] Body height 2020-09-08 15:15:00 167.6 cm [facility] of [facility] Body weight 2020-09-08 15:15:00 88.179 kg [facility] BMI 2020-09-08 15:15:00 31.38 kg/m2 [facility] Oxygen saturation in 2020-09-08 15:15:00 99 /min [facility] of Arterial blood by Medicine Pulse oximetry Systolic blood 2020-09-08 15:15:00 118 mm[Hg] [facility] [place] pressure Medicine Diastolic blood 2020-09-08 15:15:00 79 mm[Hg] [facility] Medicine Heart rate 2020-09-08 15:15:00 84 /min [facility] Respiratory rate 2020-09-08 15:15:00 16 /min [facility] Body height 2020-09-08 15:15:00 167.6 cm [facility] Body weight 2020-09-08 15:15:00 88.179 kg [facility] BMI 2020-09-08 15:15:00 31.38 kg/m2 [facility] Oxygen saturation in 2020-09-08 15:15:00 99 /min [facility] of Arterial blood by Medicine Pulse oximetry Height 2020-10-12 19:27:00 167.64 cm [facility] Weight 2020-10-12 19:27:00 [facility] BMI Calculated 2020-10-12 19:27:00 [facility]ardo Systolic (mm Hg) 2020-10-12 19:27:00 Unruly [facility] Diastolic (mm Hg) 2020-10-12 19:27:00 Mem orial Ricardo Heart Rate 2020-10-12 19:27:00 [facility] Respitory Rate 2020-10-12 19:27:00 [facility] Weight 2020-08-29 21:36:00 [facility] Systolic blood 2020-06-10 20:17:19 128 mm[Hg] [facility] pressure Diastolic blood 2020-06-10 20:17:19 68 mm[Hg] [facility] pressure Heart rate 2020-06-10 20:17:19 88 /min [facility] Body temperature 2020-06-10 20:17:19 36.11 Staci [facility] Respiratory rate 2020-06-10 20:17:19 16 /min [facility] Oxygen saturation in 2020-06-10 20:17:19 98 /min [facility] Arterial blood by Pulse oximetry Body height 2020-06-10 18:48:00 167.6 cm [facility] Body weight 2020-06-10 18:48:00 94.802 kg [facility] BMI 2020-06-10 18:48:00 33.73 kg/m2 [facility] Systolic (mm Hg) 2020-04-19 20:08:00 Unruly [facility] Diastolic (mm Hg) 2020-04-19 20:08:00 Mem [facility] Heart Rate 2020-04-19 20:08:00 [facility] Ricardo Respitory Rate 2020-04-19 20:08:00 Memori [facility] Height 2020-04-19 20:08:00 167.64 cm [facility] Weight 2020-04-19 20:08:00 [facility] BMI Calculated 2020-04-19 20:08:00 Mem[facility] Systolic (mm Hg) 2020-03-29 20:19:00 Unruly rial Ricardo Diastolic (mm Hg) 2020-03-29 20:19:00 Mem orial Ricardo Heart Rate 2020-03-29 20:19:00 [facility] Respitory Rate 2020-03-29 20:19:00 Memori al Ricardo Height 2020-03-29 20:19:00 167.64 cm [facility] Weight 2020-03-29 20:19:00 [facility] BMI Calculated 2020-03-29 20:19:00 [facility] Systolic (mm Hg) 2020-02-29 17:31:00 Unruly rial Ricardo Diastolic (mm Hg) 2020-02-29 17:31:00 Mem orial Ricardo Heart Rate 2020-02-29 17:31:00 [facility] Respitory Rate 2020-02-29 17:31:00 Memori al Ricardo Height 2020-02-29 17:31:00 167.64 cm [facility] Weight 2020-02-29 17:31:00 [facility] BMI Calculated 2020-02-29 17:31:00 [facility] Systolic (mm Hg) 2018-12-23 18:03:00 Unruly rial Ricardo Diastolic (mm Hg) 2018-12-23 18:03:00 Mem [facility] Heart Rate 2018-12-23 18:03:00 [facility] Respitory Rate 2018-12-23 18:03:00 Memori al Ricardo Height 2018-12-23 18:03:00 167.64 cm [facility] Weight 2018-12-23 18:03:00 [facility] BMI Calculated 2018-12-23 18:03:00 Memori al Ricardo BMI Calculated 2018-11-27 15:59:00 Memori [facility] Weight 2018-11-27 15:59:00 [facility] Height 2018-11-27 15:59:00 167.64 cm [facility] Heart Rate 2018-11-27 15:59:00 [facility] Respitory Rate 2018-11-27 15:59:00 Memori al Ricardo Systolic (mm Hg) 2018-11-27 15:59:00 Unruly rial Ricardo Diastolic (mm Hg) 2018-11-27 15:59:00 Mem orial [facility] BMI Calculated 2018-10-16 14:19:00 Mem[facility] Weight 2018-10-16 14:19:00 [facility] Height 2018-10-16 14:19:00 167.64 cm [facility] Heart Rate 2018-10-16 14:19:00 [facility] Respitory Rate 2018-10-16 14:19:00 Avery hdz Ricardo Systolic (mm Hg) 2018-10-16 14:19:00 Unruly vang [facility] Diastolic (mm Hg) 2018-10-16 14:19:00 Mem orial Ricardo BMI Calculated 2018-10-01 13:18:00 Avery Alejandreann Weight 2018-10-01 13:18:00 Cassie Ricardo Height 2018-10-01 13:18:00 167.64 cm [facility] Respitory Rate 2018-10-01 13:18:00 Avery hdz Ricardo Heart Rate 2018-10-01 13:18:00 [facility] Systolic (mm Hg) 2018-10-01 13:18:00 Unruly vang Ricardo Diastolic (mm Hg) 2018-10-01 13:18:00 Jc orial Ricardo Procedures Procedure Date / Time Performing Clinician Source Performed TYPE AND SCREEN 2021-03-30 17:04:00 Jori Long MD COMPLETE BLOOD COUNT W/ 2021-03-30 17:04:00 Jori Long MD nderson DIFFERENTIAL TOTAL PROTEIN 2021-03-30 17:04:00 Jori Long MD ALBUMIN LEVEL 2021-03-30 17:04:00 Jori Long MD CALCIUM LEVEL TOTAL 2021-03-30 17:04:00 Jori Long MD Toño son PHOSPHORUS LEVEL 2021-03-30 17:04:00 Jori Long MD GLUCOSE, RANDOM 2021-03-30 17:04:00 Jori Long MD BLOOD UREA NITROGEN 2021-03-30 17:04:00 Jori Long MD Toño son SERUM CREATININE 2021-03-30 17:04:00 Jori Long MD URIC ACID 2021-03-30 17:04:00 Jori Long MD FRACTIONATED BILIRUBIN 2021-03-30 17:04:00 Jori Long MD derson ALKALINE PHOSPHATASE 2021-03-30 17:04:00 Jori Long MD rson LACTATE DEHYDROGENASE 2021-03-30 17:04:00 Jori Long MD And erson ALANINE AMINOTRANSFERASE 2021-03-30 17:04:00 Jori Long MD ELECTROLYTE PANEL 2021-03-30 17:04:00 Jori Long MD Andjudeo n MAGNESIUM LEVEL 2021-03-30 17:04:00 Jori Long MD HP T(15;17) PML-LEN 2021-03-30 17:04:00 Jori Long MDrson QUANTITATIVE PCR COLLECTION, BLOOD ABORH 2021-03-30 17:04:00 Joir Long MD ANTIBODY SCREEN 2021-03-30 17:04:00 Jori Long MD Results CBC 2021-03-30 17:04:00 Jori Long MD MANUAL DIFFERENTIAL 2021-03-30 17:04:00 Jori Long MD Toño son SERUM CREATININE 2021-03-30 17:04:00 Jori Long MD .GLOMERULAR FILTRATION 2021-03-30 17:04:00 Jori Long MD derson RATE HP T(15;17) PML-LEN 2021-03-30 17:04:00 Jori Long MDrson QUANTITATIVE PCR INTERPRETATION AND REPORT CLOT EXPIRATION DATE 2021-03-30 17:04:00 Jori Long MD Andrea rson TMP INTERPRETATION 2021-03-30 17:04:00 Jori Longers on ANTIBODY SCREEN NEGATIVE POCT GRP A STREP 2021-03-16 16:11:00 Zayra [facility]) [facility] XR CHEST 1 VW 2020-12-05 02:15:29 Ester [facility] CT ABDOMEN PELVIS W 2020-12-05 02:09:58 Ester [facility] CONTRAST [facility] POCT TEST 2020-12-05 01:31:00 Ester [facility] LIPASE 2020-12-05 01:29:00 Ester [facility] TROPONIN I 2020-12-05 01:29:00 Ester [facility] COMP. METABOLIC PANEL 2020-12-05 01:29:00 Truong [facility] ([id number]) [facility] CBC WITH DIFF 2020-12-05 01:29:00 Ester [facility] URINALYSIS 2020-12-05 01:29:00 [facility] NOTICE OF PRIVACY 2020-12-05 01:06:38 Doctor Unassigned, No [facility] PRACTICES Name Medical Branch CONSENT/REFUSAL FOR 2020-12-05 01:05:01 [facility]igned, [facility] Name Medical Branch POCT GRP A STREP 2020-12-04 00:42:00 Tessa Mendoza [facility] (MOLECULAR) [facility] MRI THORACIC SPINE W 2020-06-06 22:01:00 [facility] CONTRAST MRI CERVICAL SPINE W 2020-06-06 22:01:00 [facility] [facility] CONTRAST MRI BRAIN W WO CONTRAST 2020-06-06 22:00:00 [facility] C-REACTIVE PROTEIN 2020-06-06 18:12:00 [facility] Natvarla INTERLEUKIN 6 2020-06-06 18:12:00 [facility] Natvarlal FERRITIN LEVEL 2020-06-06 18:12:00 [facility] ospital Natvarlal D-DIMER 2020-06-06 18:12:00 [facility] ospital Natvarlal LDH 2020-06-06 18:12:00 TsaiJen [facility] ospital Natvarlal FIBRINOGEN 2020-06-06 18:12:00 [facility] ospital Natvarlal CT CHEST WO CONTRAST 2020-06-06 18:03:[address] [facility] URINE CULTURE 2020-06-04 13:58:00 Kanchan Downey spital URINALYSIS SCREEN AND 2020-06-04 13:58:00 Eloise Dorsey Gin [facility] MICROSCOPY, WITH REFLEX TO CULTURE HCG QUALITATIVE, URINE 2020-06-04 13:58:00 [facility] SCREEN COVID-19 QUALITATIVE 2020-06-04 13:45:00 [facility] RT-PCR HC COMPLETE BLD COUNT 2020-06-04 08:45:00 [facility] W/AUTO DIFF Imarendenewe COMPREHENSIVE METABOLIC 2020-06-04 07:56:00 [facility] PANEL Imarendenewe ESTIMATED GFR 2020-06-04 07:56:00 [facility] Imarendene OCT, OPTIC NERVE - OU - 2020-03-08 19:34:[facility] AUTOMATED VISUAL FIELD, 2020-03-08 19:34:38 [facility] EXTENDED - OU - BOTH EYES DURABLE MEDICAL EQUIPMENT 2020-02-16 15:31:42 [facility] BASIC METABOLIC PANEL 2020-02-16 10:10:[address] [facility] Chiazoka ESTIMATED GFR 2020-02-16 10:10:00 [facility] DURABLE MEDICAL EQUIPMENT 2020-02-15 20:56:49 Caleb Roque [facility] EMG 2020-02-15 17:46:48 [facility] COMPLETE BLD COUNT 2020-02-15 10:00:00 [facility] W/AUTO DIFF BASIC METABOLIC PANEL 2020-02-15 10:00:00 [facility] ESTIMATED GFR 2020-02-15 10:00:00 Shira Benedict spital VISUAL EVOKED POTENTIALS 2020-02-14 16:52:23 Dora Montalvo [facility] (VEP) HC COMPLETE BLD COUNT 2020-02-14 09:15:00 [facility] W/AUTO DIFF BASIC METABOLIC PANEL 2020-02-14 09:15:00 [facility] ESTIMATED GFR 2020-02-14 09:15:00 Shira Benedict Ho spital MRI LUMBAR SPINE W WO 2020-02-13 15:28:12 [facility] CONTR[facility] MRI BRAIN VENOGRAM 2020-02-13 14:47:24 [facility] HC COMPLETE BLD COUNT 2020-02-13 09:05:00 [facility] W/AUTO DIFF BASIC METABOLIC PANEL 2020-02-13 09:00:00 [facility] ESTIMATED GFR 2020-02-13 09:00:00 Yesiwu Shira Worley Ho spital HC COMPLETE BLD COUNT 2020-02-12 15:18:00 [facility] W/AUTO DIFF BASIC METABOLIC PANEL 2020-02-12 13:00:00 [facility] ESTIMATED GFR 2020-02-12 13:00:00 OnShira smith Ho spital VENIPUNC NEED PHYS 2020-02-08 15:39:11 Familia Colon [facility] SKILL,DX OR RX MISCELLANEOUS REFERRAL 2020-02-08 14:00:00 [facility] TEST Marck US DUPLEX VENOUS UPPER 2020-02-07 22:26:50 [facility] EXTREMITY RIGHT VENIPUNC NEED PHYS 2020-02-07 14:18:07 Javier Kolb [facility] SKILL,DX OR RX HC COMPLETE BLD COUNT 2020-02-07 10:00:00 [facility] W/AUTO DIFF BASIC METABOLIC PANEL 2020-02-07 10:00:00 [facility] ESTIMATED GFR 2020-02-07 10:00:00 [facility] HC COMPLETE BLD COUNT 2020-02-06 11:18:00 [facility] W/AUTO DIFF BASIC METABOLIC PANEL 2020-02-06 11:18:00 [facility] ESTIMATED GFR 2020-02-06 11:18:00 [facility] XR CHEST 1 VW PORTABLE 2020-02-06 02:27:51 Lock, [facility] ECG 12-LEAD 2020-02-06 02:12:53 Varsha [facility] HC COMPLETE BLD COUNT 2020-02-05 11:00:00 Varsha [facility] W/AUTO DIFF BASIC METABOLIC PANEL 2020-02-05 09:00:00 Varsha [facility] ESTIMATED GFR 2020-02-05 09:00:00 Varsha [facility] IGG SYNTHESIS RATE STUDY 2020-02-04 16:00:00 Varsha [facility] FUNGUS CULTURE 2020-02-04 15:56:00 [facility] AFB CULTURE 2020-02-04 15:56:00 [facility] IR LUMBAR PUNCTURE 2020-02-04 15:00:00 [facility] CSF CULTURE 2020-02-04 14:56:00 [facility] CRYPTOCOCCAL ANTIGEN 2020-02-04 14:56:00 [facility] SCREEN GRAM STAIN 2020-02-04 14:56:00 Pa[facility] CSF CELL COUNT WITH 2020-02-04 14:56:00 [facility] DIFFERENTIAL GLUCOSE LEVEL, CSF 2020-02-04 14:56:00 [facility] IGG SYNTHESIS RATE STUDY 2020-02-04 14:56:00 [facility] VDRL, CSF 2020-02-04 14:56:00 [facility] LYME DISEASE REFLEXIVE 2020-02-04 14:56:00 [facility] PANEL, CSF CYTOMEGALOVIRUS BY PCR 2020-02-04 14:56:00 [facility] MISCELLANEOUS REFERRAL 2020-02-04 14:56:00 [facility] TEST ENTEROVIRUS BY PCR 2020-02-04 14:56:00 [facility] HERPES SIMPLEX VIRUS BY 2020-02-04 14:56:00 [facility] PCR FLOW CYTOMETRY EVALUATION 2020-02-04 14:56:00 [facility] [place] VIRUS ANTIBODY 2020-02-04 14:56:00 T[facility]ha [facility] PANEL, CSF ANGIOTENSIN CONVERTING 2020-02-04 14:56:00 Tosha [facility] ENZYME, CSF OLIGOCLONAL BANDING, CSF 2020-02-04 14:56:00 [facility] MISCELLANEOUS REFERRAL 2020-02-04 14:56:00 [facility] TEST EEG AWAKE/ASLEEP LESS THAN 2020-02-04 12:19:32 Tosha [facility] 41 MIN ECG 12-LEAD 2020-02-04 09:50:41 Edgar Manan [facility] BLOOD CULTURE, AEROBIC & 2020-02-04 06:50:00 [facility] ANAEROBIC BLOOD CULTURE, AEROBIC & 2020-02-04 06:40:00 [facility] ANAEROBIC MISCELLANEOUS REFERRAL 2020-02-04 06:40:00 Manan Hernández [facility] TEST HC COMPLETE BLD COUNT 2020-02-04 06:40:00 [facility] W/AUTO DIFF BASIC METABOLIC PANEL 2020-02-04 06:40:00 [facility] ESTIMATED GFR 2020-02-04 06:40:00 Pa[facility] URINE CULTURE 2020-02-04 05:56:00 [facility] URINALYSIS SCREEN AND 2020-02-04 05:56:00 Manan Hernández [facility] MICROSCOPY, WITH REFLEX TO CULTURE URINE DRUGS OF ABUSE 2020-02-04 05:56:00 Manan Hernández [facility] SCREEN COVID-19 QUALITATIVE 2020-02-04 04:41:00 Kim Guevara [facility] RT-PCR MRI BRAIN & ORBIT W WO 2020-02-04 03:12:00 [facility] CERVICAL SPINE W 2020-02-04 03:12:00 Manan Hernández [facility] CONTRAST MRI THORACIC SPINE W 2020-02-04 03:12:00 Manan Hernández [facility] CONTRAST CYTOLOGY 2020-02-04 01:17:00 VarshaMichael [facility] (NON-GYNECOLOGICAL) REQUEST COMPREHENSIVE METABOLIC 2020-02-03 23:35:[address] [facility] PANEL ESTIMATED GFR 2020-02-03 23:35:00 Kim Guevara [facility] HC COMPLETE BLD COUNT 2020-02-03 23:25:00 [facility] W/AUTO DIFF ELMER 2020-02-03 23:25:[address] [facility] FOLATE LEVEL 2020-02-03 23:25:[address] [facility] VITAMIN B12 LEVEL 2020-02-03 23:25:00 B[facility]ton [facility] C-REACTIVE PROTEIN 2020-02-03 23:25:00 [facility] HOMOCYSTINE, PLASMA 2020-02-03 23:25:00 [facility] CORTISOL LEVEL, RANDOM 2020-02-03 23:25:00 [facility] SEDIMENTATION RATE 2020-02-03 23:25:00 [facility] RHEUMATOID FACTOR 2020-02-03 23:25:00 [facility] THYROID STIMULATING 2020-02-03 23:25:00 [facility] HORMONE T4, FREE 2020-02-03 23:25:[address] [facility] T3 2020-02-03 23:25:00 [facility] SYPHILIS TREPONEMA SCREEN 2020-02-03 23:25:00 [facility] WITH RPR CONFIRMATION (REVERSE ALGORITHM) HIV AG/AB COMBINATION 2020-02-03 23:25:00 [facility] VITAMIN D 25 HYDROXY LEVEL 2020-02-03 23:25:00 [facility] B. BURGDORFERI ABS TOTAL, 2020-02-03 23:25:00 [facility] SERUM CT HEAD WO CONTRAST 2020-02-03 21:14:55 [facility] HCG QUANTITATIVE, SERUM 2020-02-03 19:27:00 [facility] Tubal ligation [facility] Plan of Care Planned Activity Planned Date Details Comments Source Future Scheduled 2020-10-27 HAPTOGLOBIN [code = Ordered: [employer] 12:31:11 18360-5] 10/27/2020 of Medicine Future Scheduled 2020-10-27 LACTATE DEHYDROGENASE Ordered: [employer] [facility] 12:31:11 [code = 2532-0] 10/27/2020 of Medicine Future Scheduled 2020-10-27 RETICULOCYTE WITH Ordered: [facility] [employer] Test 12:31:11 ABSOLUTE [code = NOCPT] 10/27/2020 of M edicine Future Scheduled 2020-10-27 PATH REVIEW, SMEAR Ordered: [facility] [employer] Test 12:31:11 [code = 91072-0] 10/27/2020 of Medicine Future Scheduled 2020-10-27 DIRECT ANTIGLOBULIN Ordered: [facility] or [employer] Test 12:31:11 TEST [code = 55812] 10/27/2020 of Medic ine Future Scheduled 2020-10-27 COMPREHENSIVE METABOLIC Ordered: [facility] [employer] Test 12:31:11 PANEL [code = 62855-5] 10/27/2020 of Me dicine Future Scheduled 2020-10-27 CBC W/AUTO DIFF WITH Ordered: [facility] [employer] Test 12:31:11 PLATELETS [code = 10/27/2020 of Medicin e 72987-1] Future Scheduled 2020-10-27 SEDIMENTATION RATE Ordered: [employer] 12:31:11 MODIFIED WESTERGREN 10/27/2020 of Medic ine [code = 4537-7] Future Scheduled 2020-10-27 RANDOM URINE Ordered: [facility] [employer] Test 12:31:11 PROTEIN/CREATININE 10/27/2020 of Medici ne [code = 2890-2] Future Scheduled 2020-10-27 URINALYSIS, COMPLETE Ordered: [employer] 12:31:11 W/REFLEX TO CULTURE 10/27/2020 of Medic ine [code = 07985-3] Future Scheduled 2020-10-27 COMPLEMENT C3 AND C4 Ordered: [facility] [employer] Test 12:31:11 [code = NOCPT] 10/27/2020 of Medicine Future Scheduled 2020-10-27 DNA (DS) ANTIBODY, Ordered: [facility] [employer] Test 12:31:11 CRITHIDIA IFA W/RX 10/27/2020 of Medici ne TITER [code = 6457-6] Future Scheduled 2020-10-27 C-REACTIVE PROTEIN Ordered: [facility] [employer] Test 12:31:11 [code = 1988-5] 10/27/2020 of Medicine Future Scheduled 2020-10-27 COVID-19 Vaccine (1) [employer] [facility] 11:49:19 [code = COVID-19 of Medicine Vaccine (1)] Future Scheduled 2020-10-27 TETANUS SHOT (ADULT) [facility] [employer] Test 11:49:19 [code = TETANUS SHOT of Medi cine (ADULT)] Future Scheduled 2020-10-27 BMI FOLLOW UP PLAN [facility] [employer] Test 11:49:19 [code = BMI FOLLOW UP of Med icine PLAN] Future Scheduled 2020-10-27 Hepatitis C screening [employer] Test 11:49:19 (procedure) [code = of Medic ine 634335293] Future Scheduled 2020-10-27 Human immunodeficiency [facility] [employer] Test 11:49:19 virus screening of Medicine (procedure) [code = 290074298] Future Scheduled 2020-10-27 Screening for malignant [facility] [employer] Test 11:49:19 neoplasm of cervix of Medici ne (procedure) [code = 566052547] Future Scheduled 2020-10-27 FLU VACCINE > 6 MONTHS [facility] 11:49:19 [code = FLU VACCINE > 6 of M edicine MONTHS] Future Scheduled 2020-09-08 COVID-19 Vaccine (1) [employer] [facility] 13:06:03 [code = COVID-19 of Medicine Vaccine (1)] Future Scheduled 2020-09-08 TETANUS SHOT (ADULT) [employer] Test 13:06:03 [code = TETANUS SHOT of Medi cine (ADULT)] Future Scheduled 2020-09-08 BMI FOLLOW UP PLAN [facility] [employer] Test 13:06:03 [code = BMI FOLLOW UP of Med icine PLAN] Future Scheduled 2020-09-08 Hepatitis C screening [employer] Test 13:06:03 (procedure) [code = of Medic ine 230827582] Future Scheduled 2020-09-08 [facility] 13[facility]06[facility]03 virus screening of Medicine (procedure) [code = 348564803] Future Scheduled 2020-09-[address] [facility] Test 13:06:03 neoplasm of cervix of Medici ne (procedure) [code = 322513924] Future Scheduled 2020-09-08 FLU VACCINE > 6 MONTHS B [facility] Test 13:06:03 [code = FLU VACCINE > 6 of M edicine MONTHS] Future Scheduled 1998 COVID-19 Vaccination Timothy Test 00:00:00 (1) [code = COVID-19 Vaccination (1)] Future Scheduled COVID-19 VACCINE (1) [facility] [code = COVID-19 Hospital VACCINE (1)] Future Scheduled Hepatitis C screening [facility] Test (procedure) [code = Hospital 935897279] Future Scheduled INFLUENZA VACCINE [code [facility] = INFLUENZA VACCINE] Hospita l Future Scheduled Screening for malignant [facility] Test neoplasm of cervix Hospital (procedure) [code = 502873925] Encounters Start End Encounter Admission Attending Care Care Encounter Source Date/Time Date/Time Type Type Clinicians Facility Department ID 2021-02-19 Emergency [facility] [id number] Univers 15:57:52 ity [facility] 2021-04-27 2021-04-27 ambulatory [facility] [id number] [facility] gut[facility]rez [facility] 2021-03-30 2021-03-30 Outpatient JORI GREENE MDA, MDA [id number] 07:00:00 23:59:00 Melvin mitchell 2021-03-30 2021-03-30 Outpatient JORI GREENE MDA, MDA [id number] 10:55:42 10:55:42 Melvinjude mitchell 2021-03-16 2021-03-16 Outpatient Rola IVERSON [facility] [id number] Univers 10:20:00 10:27:28 [facility] 2021-03-16 2021-03-16 Urgent Earle Iverson [facility] 1.2.840. 114 [id number] Univers 09:54:29 10:27:28 Care [facility] [id number] ity of [place] 4.2.7.2.686 Raj as NINO?BLEA [id number] [address] MEDICAL OFFICE [facility] 2021-03-16 2021-03-16 Outpatient R [facility] [id number] Univers 10:20:00 10:20:00 [id number] [facility] 2021-03-13 2021-03-13 ambulatory [facility] [id number] [facility] 2021-03-12 2021-03-12 ambulatory [facility] [id number] [facility] 2021-02-20 2021-02-20 Outpatient R [facility] [id number] Univers 09:20:00 09:38:06 [facility] 2021-02-20 2021-02-20 Urgent [facility] 1.2.840.114 [id number] Univers 09:11:11 09:38:06 Care [facility] [id number] i ty cynthia [place] 4.2.7.2.686 Raj as NINO?BLEA [phone] [address] MEDICAL OFFICE [facility] 2021-02-20 2021-02-20 Outpatient R [facility] [id number] Univers 09:20:00 09:20:00 [id number] ity [facility] 2021-01-24 2021-01-24 Outpatient [facility] [id number] [facility] 2021-01-06 2021-01-06 Outpatient [facility] [id number] [facility] 2021-01-05 2021-01-05 [facility] [id number] [facility] 2021-01-05 2021-01-05 Outpatient [facility] [id number] [facility] 2020-12-29 2020-12-29 Outpatient [facility] [id number] [facility] 2020-12-28 2020-12-28 Outpatient [facility] [id number] Univers 17:20:00 17:20:00 [id number] [facility] 2020-12-28 2020-12-28 [facility] [id number] [facility] 2020-12-26 2020-12-26 [facility] [id number] [facility] 2020-12-08 2020-12-08 Telephone Harsh 1.2.840.1 [id number] Methodi 00:00:00 00:00:[address] 3.430.2.7 Hospit a .3.510322 l .8 2020-12-07 2020-12-07 Orders Soco Savage 1.2.840.1 [id number] Methodi 00:00:00 00:00:[address] 3.430.2.7 Hospit a .3.784303 l .8 2020-12-06 2020-12-06 Outpatient R [facility] [id number] Univers 12:30:00 12:30:00 [id number] [facility] 2020-12-06 2020-12-06 Outpatient R MAGALIE, [facility] [id number] Univers 12:30:00 12:30:00 INOCENTE [facility] 2020-12-05 2020-12-05 Telephone NATI Mason 1.2.922.116 [id number] Univers 00:00:00 00:00:00 Shilpa AGUIRRE 350.1.13.10 it y of [facility] 4.2.7.2.686 Raj as [phone] [facility] [address] 2020-12-04 2020-12-04 Emergency [facility] 1.2.840.114 [id number] Univers 20:55:00 23:38:00 Truong Cornelius 350.1.13.10 i ty [facility] 4.2.7.2.686 [facility] [phone] [facility] [address] 2020-12-04 2020-12-04 Outpatient [facility]MLC [facility] [id number] [facility] 00[facility]00 Ayanna gutierrez Outpati ent Clinics 2020-12-03 2020-12-03 Urgent Provider, [facility] Care [facility] 1.2.840.114 [id number] Univers 18:59:54 19:19:54 Care Tessa Mendoza [facility] 350.1.13.10 ity [facility] 4.2.7.2.686 Raj as Professio [phone] [address] Office [address] 2020-12-03 2020-12-03 Outpatient [facility] [id number] Univers 18:40:00 18:40:00 [id number] [facility]y [facility] 2020-12-03 2020-12-03 Outpatient R REJI [facility] [id number] Univers 18:40:00 18:40:00 TESSA [facility] 2020-12-01 2020-12-01 Ambulatory nullFlavo MNA [id number] [facility] 16:30:00 16:30:00 Pre-Reg r Neurology 16 l Ean Silva 2020-10-27 2020-10-27 Office ROMULO Walters 1.2.840.114 [id number] 11:43:47 12:34:19 Visit Chika AMBULATOR 350.1.13.21 Y 0.2.7.2.686 [id number] 370 2020-10-27 2020-10-27 Office ROMULO Walters 1.2.840.[id number] [place] [address] 11:43:47 12:34:19 Visit Chika AMBULATOR 350.1.13.21 College Y 0.2.7.2.686 of [id number] [facility] 370 e 2020-10-18 2020-10-18 Outpatient [facility]MLC [facility] [id number] [facility] 2020-10-13 2020-10-13 Outpatient FAYEIE GILDA [id number] Mem[address] 10:30:00 10:30:00 14 l Ricardo 2020-10-12 2020-10-13 Outpatient nullFlavo MNA [id number] Memoria 19:15:00 04:59:59 r Neurology 15 l Christiana Ricardo 2020-10-11 2020-10-11 Outpatient [facility]ML[facility] STLC [id number] [facility] 2020-09-08 2020-09-08 Office ROMULO Walters 1.2.840.114 [id number] [facility] 10:12:53 13:09:00 Visit Chika AMBULATOR 350.1.13.21 College Suresh Y 0.2.7.2.686 of [id number] [facility] 370 e 2020-09-08 2020-09-08 Office ROMULO Walters 1.2.840.114 [id number] 10:12:53 13:09:00 Visit Chika AMBULATOR 350.1.13.21 Suresh Y 0.2.7.2.686 [id number] 370 2020-09-08 2020-09-08 Outpatient [facility]MLC [facility] [id number] [facility] 2020-09-07 2020-09-07 Outpatient [facility] [id number] [facility] 2020-09-01 2020-09-01 Outpatient [facility] [id number] [facility] 2020-08-29 2020-08-30 Outpatient nullFlavo MNA [id number] Memoria 20:45:00 04:59:59 r Neurology 13 l Christiana Ricardo 2020-08-28 2020-08-28 Outpatient [facility]ML[facility] [id number] [facility] 2020-08-15 2020-08-15 Outpatient [facility]ML[facility] [id number] [facility] 2020-08-08 2020-08-08 Outpatient [facility] [id number] [facility] 2020-08-08 2020-08-08 Outpatient [facility] [id number] [facility] 2020-08-07 2020-08-07 Outpatient [facility] [id number] [facility] 2020-07-26 2020-07-26 Outpatient [facility] [id number] [facility] 2020-07-20 2020-07-20 Outpatient [facility] [id number] [facility] 2020-07-10 2020-07-10 Outpatient [facility] [id number] [facility] 2020-07-10 2020-07-10 Outpatient [facility] [id number] [facility] 2020-07-06 2020-07-06 Outpatient [facility] [id number] [facility] 2020-07-04 2020-07-04 Outpatient [facility] [id number] [facility] 2020-06-30 2020-06-30 [facility] [id number] [facility] 2020-06-27 2020-06-27 [facility] [id number] [facility] 2020-06-20 2020-06-20 [facility] [id number] [facility] 2020-06-19 2020-06-19 [facility] [id number] [facility] 2020-06-14 2020-06-16 Outside nullFlavo MNA [id number] Memoria 21:54:19 05:59:59 Medical r Neurology 01 l Records Christiana Banner 2020-06-12 2020-06-12 [facility] [id number] [facility] 2020-06-12 2020-06-12 [facility] [id number] [facility] 2020-06-10 2020-06-10 Infusion Alhaji, 1.2.840.1 [id number] Methodi 11:41:17 14:59:06 Marques Lobo 47263.1.[address] 3.430.2.7 Hospit a .3.020608 l .8 2020-06-10 2020-06-10 Travel 1.2.840.1 [id number] [id number] Methodi 00:00:00 00:00:[address] 3.430.2.7 0.2.7.3.698 Ho spita .3.018801 084.8 l .8 2020-06-10 2020-06-10 Orders Anival, 1.2.840.1 [id number] 8855 Methodi 00:00:00 00:00:00 Only Sue 30970.1.[address] 3.430.2.7 Hospit a .3.193345 l .8 2020-06-10 2020-06-10 Telephone Anival, 1.2.840.1 [id number] 2100 139442 Methodi 00:00:00 00:00:[address] 3.430.2.7 Hospit a .3.671912 l .8 2020-06-10 2020-06-10 Orders Anival, 1.2.840.1 [id number] 045176 3097 Methodi 00:00:00 00:00:00 Only Sue 61073.1.1 [address] 3.430.2.7 Hospit a .3.019072 l .8 2020-06-09 2020-06-09 Outpatient [facility] [id number] [facility] 2020-06-09 2020-06-09 Outpatient [facility] [id number] [facility] 2020-06-04 2020-06-07 [facility] 1.2.840.1 [id number] Methodi 00:56:00 14:30:00 Kanchan Wilkinson 45770.1.1 47 3 [facility] 3.430.2.7 Hospita .3.366123 l .8 2020-05-31 2020-06-01 Outpatient nullFlavo MNA [id number] [facility] 17:30:00 05:59:59 r Neurology 12 l Ean Silva 2020-05-31 2020-05-31 Ambulatory nullFlavo MNA [id number] [facility] 21:30:00 21:30:00 Pre-Reg r Neurology 11 l Ean Silva 2020-04-19 2020-04-20 Outpatient nullFlavo MNA [id number] [facility] 20:00:00 05:59:59 r Neurology 10 l Christiana Banner 2020-04-18 2020-04-18 Outpatient [facility] [id number] [facility] 2020-04-11 2020-04-12 Outpatient nullFlavo MNA [id number] [facility] 16:00:00 05:59:59 r Neurology 09 l Christiana Banner 2020-03-29 2020-03-30 Outpatient nullFlavo MNA [id number] [facility] 20:00:00 05:59:59 r Neurology 08 l Christiana Banner 2020-03-22 2020-03-22 [facility] [id number] [facility] 2020-03-16 2020-03-16 Outpatient [facility] [id number] [facility] 2020-03-08 2020-03-08 Office Isidro Ruby 1.2.840.1 [id number] Methodi 12:36:03 16:19:47 Visit Go 19992.1.[address] 3.430.2.7 Hospit a .3.947833 l .8 2020-03-08 2020-03-08 Travel 1.2.840.1 1.2.113.901 [id number] Methodi 00:00:00 00:00:[address] 3.430.2.7 0.2.7.3.698 Ho spita .3.758509 084.8 l .8 2020-03-07 2020-03-07 Outpatient [facility]C [facility] [id number] [facility] 2020-02-29 2020-03-01 Outpatient nullFlavo MNA [id number] [facility] 17:15:00 05:59:59 r Neurology 07 l Christiana Ricardo 2020-02-21 2020-02-21 Outpatient [facility] [id number] [facility] 2020-02-17 2020-02-17 Outpatient [facility] [id number] [facility]00 [facility] Out[facility] Clinics 2020-02-12 2020-02-16 [facility] Shira Benedict 1.2.840.1 [id number] Methodi 07:45:00 12:40:00 Encounter Yesi Maldonado 03802.1.[address] 3.430.2.7 Hospit a .3.473642 l .8 2020-02-15 2020-02-15 Ambulatory nullFlavo MNA [id number] [facility] 14:15:00 14:15:00 Pre-Reg r Neurology 06 l Christiana Banner 2020-02-15 2020-02-15 Telephone Isidro Ruby 1.2.840.1 [id number] Methodi 00:00:00 00:00:[address] 3.430.2.7 Hospit a .3.159567 l .8 2020-02-13 2020-02-13 Orders Diogo Blandon 1.2.840.1 [id number] Methodi 00:00:00 00:00:[address] 3.430.2.7 Hospit a .3.330620 l .8 2020-02-11 2020-02-11 Telephone Isidro Ruby 1.2.840.1 [id number] Methodi 00:00:00 00:00:[address] 3.430.2.7 Hospit a .3.772669 l .8 2020-02-09 2020-02-09 Outpatient [facility]C [facility]LC [id number] [facility] 2020-02-03 2020-02-08 [facility] Kim Guevara 1.2.840.1 [id number] Methodi 14:30:00 18:40:00 Encounter Aldo Pineda 32279.1.1 3 15 Michael Maddoxh 3.430.2.7 Hospita .3.211356 l .8 2020-02-07 2020-02-07 Telephone Ricky, 1.2.840.1 [id number] Methodi 00:00:00 00:00:[address] 3.430.2.7 Hospit a .3.989190 l .8 2020-02-03 2020-02-03 Telephone Ricky, 1.2.840.1 [id number] Methodi 00:00:00 00:00:[address] 3.430.2.7 Hospit a .3.371868 l .8 2020-01-17 2020-01-17 [facility] [id number] [facility]00 [facility] Out[facility] ent Clinics 2019-12-14 2019-12-14 [facility] [id number] [address] 10:48:00 10:48:00 t [employer] ([employer]) [facility] Medicine l Medicine Outpati ent Clinics 2019-11-23 2019-11-23 [facility] [id number] 09:00:00 09:00:00 [employer] ([employer]) [facility] Medicine l Medicine Outpati ent Clinics 2019-11-23 2019-11-23 [facility] [id number] 08:05:00 08:05:00 t [facility] [employer] [place] [employer] [facility] Medicine l Medicine Outpati ent Clinics 2019-10-15 2019-10-15 [facility] [id number] 08:44:00 08:44:00 t Exterity [facility] l Medicine Outpati ent Clinics 2019-09-07 2019-09-07 [facility] [id number] 11:56:00 11:56:00 [facility] [employer] [facility] Medicine Outpati ent Clinics 2019-08-13 2019-08-13 [facility] [id number] 10:20:00 10:20:00 t [employer] s - Drive [facility] Medicine Medicine Outpati ent Clinics 2019-08-12 2019-08-12 [facility] [id number] 09:49:00 09:49:00 t [place] [employer] s - Drive [facility] Medicine Outpati ent Clinics 2019-06-15 2019-06-15 [facility] [id number] 15:24:00 15:24:00 t [place] [employer] s - Drive [facility] Medicine Outpati ent Clinics 2019-06-09 2019-06-09 [facility] [id number] 08:40:00 08:40:[address] [facility] [address] [employer] [facility] Medicine Outpati ent Clinics 2019-06-03 2019-06-03 [facility] [id number] 10:52:00 10:52:00 t [place] [employer] - [employer] ([employer]) [facility] Medicine Outpati ent Clinics 2019-05-28 2019-05-28 [facility] [id number] 16:20:00 16:20:00 t Hello [employer] ([employer]) [facility] Medicine Outpati ent Clinics 2019-05-21 2019-05-23 Outside nullFlavo MNA [id number] [facility] 20:44:00 05:59:59 Medical r Neurology 00 l Records Ean Silva 2019-04-28 2019-04-28 Ambulatory nullFlavo MNA [id number] [facility] 19:00:00 19:00:00 Pre-Reg r Neurology 05 l Ean Silva 2019-01-01 2019-01-01 [facility] [id number] 15:32:00 15:32:00 t [place] [employer] - Drive [facility] Medicine Outpati ent Clinics 2018-12-31 2018-12-31 [facility] [id number] 09:55:00 09:55:00 t [place] [employer] s - Drive [facility] Medicine Outpati ent Clinics 2018-12-30 2018-12-30 [facility] [id number] 13:25:00 13:25:00 t [place] [employer] - [employer] ([employer]) [facility] Medicine Outpati ent Clinics 2018-12-30 2018-12-30 [facility] [id number] 08:00:00 08:00:00 t [place] [employer] - [employer] Its [employer] [facility] Medicine Outpati ent Clinics 2018-12-29 2018-12-29 [facility] [id number] 09:42:00 09:42:00 t [place] [employer] - [employer] [facility] Medicine Outpati ent Clinics 2018-12-23 2018-12-24 Outpatient nullFlavo MNA [id number] [facility] 18:15:00 04:59:59 r Neurology 04 l Ean Silva 2018-12-04 2018-12-04 [facility] [id number] 16:20:00 16:20:00 t Exterity [facility] Medicine Outpati ent Clinics 2018-11-30 2018-11-30 [facility] [id number] 10:08:00 10:08:00 t Urgent Urgent Care L [facility] Outpati ent Clinics 2018-11-27 2018-11-28 Outpatient nullFlavo MNA [id number] [facility] 15:45:00 04:59:59 r Neurology 03 l Ean Silva 2018-11-27 2018-11-27 [facility] [id number] 13:00:00 13:00:00 t Exterity [facility] Medicine Outpati ent Clinics 2018-10-29 2018-10-29 [facility] [id number] 10:40:00 10:40:00 t [place] [employer] - [employer] [facility] Medicine Outpati ent Clinics 2018-10-16 2018-10-17 Outpatient nullFlavo MNA [id number] [facility] 14:00:00 04:59:59 r Neurology 02 l Ean Silva 2018-10-02 2018-10-03 Outpatient nullFlavo MNA [id number] [facility] 20:00:00 04:59:59 r Neurology 01 l Ean Silva 2018-10-01 2018-10-02 [place] nullFlavo [place]A [id number] [facility] 13:15[facility] 04:59:59 r Neurology 00 l Christianarosa Lrann 2018-09-30 2018-09-30 [facility] [id number] 13:00:00 13:00:00 t Exterity [facility] Medicine Outpati ent Clinics 2018-08-31 2018-08-31 [facility] [id number] 11:00:00 11:00:00 t Hello Curry s [employer] Fl[employer] [facility] Medicine Outpati ent Clinics 2018-07-27 2018-07-27 [facility] [id number] 13:54:00 13:54:00 t Exterity [facility] Medicine Outpati ent Clinics 2018-07-23 2018-07-23 [facility] [id number] 08:53:00 08:53:00 t Exterity [facility] Medicine Outpati ent Clinics 2018-07-23 2018-07-23 [facility] [id number] 08:15:00 08:15:00 t Hello Curry s [employer] - [employer] Flip [employer] [facility] Medicine Outpati ent Clinics 2018-06-22 2018-06-22 [facility] [id number] 10:30:00 10:30:00 t Exterity [facility] Medicine Outpati ent Clinics 2018-05-04 2018-05-04 [facility] [id number] 12:00:00 12:00:00 t Exterity [facility] Medicine Outpati ent Clinics 2018-04-02 2018-04-02 [facility] [id number] 09:00:00 09:00:00 t Exterity [facility] Medicine Outpati ent Clinics Results Test Description Test Time Test Comments Results Result Comments Source TMP Interpretation Antibody Screen Negative 2021-03-31 02:35 :52 Test Item Value Reference Range Interpretation Comme nts TMP At the present VALERIE Auto time, patient OTONIELRosauraa leon by: VALERIE FREDERICK,Dictated Date/Time: Neg plasma shows no 03.30.2021 2 0:35 PM [employer]IATE Transcribed Date/Time: 03.30.2021 ABSC evidence of RBC 20:35 PM [employer]IATE Electronically Signed By: VALERIE FREDERICK, on Interp alloantibodies. 03.30.2021 2 0:35 PM (test code = 7535) MD AguirreAntibody [id number] 21:46:12 Test Item Value Reference Range Interpretation Comments ABSC. (test code = 890-4) Negative ABSC MD [id number] 21:46:11 Test Item Value Reference Range Interpretation Comments ABORh. (test code = 882-1) A POS MD AguirreClot Expiration [id number] 21:45:59 Test Item Value Reference Range Interpretation Comments T & S Expiration (test code = 04/02/2021 5318) MD AguirreMD t(15;17) PML-LEN Quantitative PCR Collection, [id number] 19:40:53 Test Item Value Reference Range Interpretation Comments Molecular Diagnostics (Received) (test Yes code = 8400) MD AguirreFractionated [id number] 18:26:21 Test Item Value Reference Range Interpretation Comments Bili Total (test 0.4 mg/dL See_Comment Indocyanine Green (ICG) code = 5096) may cause false ly elevated biliru bin results. Total and direct bilirubin must not be measured from s amples containing indo cyanine green. False el evation of total bilirubin can be seen in patient s with IgG concentrations above 28 g/L. [Automate d message] The system [employer] generated this result transmitted ref erence range: <=1.2. T he reference range was not used to interpr et this result as normal/abnormal . Bili Direct (test <0.2 See_Comment Indocyanin e Green (ICG) code = 5094) may cause false ly elevated biliru bin results. Total and direct bilirubin must not be measured from s amples containing indo cyanine green. [Automat ed message] The sy stem which generated this result transmitted ref erence range: <=0.3 mg /dL. The reference range was not used to interpr et this result as normal/abnormal . Bili Indirect (test See Note 0.0-0.9 Unable t o calculate code = 5095) Indirect Biliru bin result due to some par ameters are outside rep ortable range MD AguirreGlucose, [id number] 18:26:19 Test Item Value Reference Range Interpretation Comments Glucose Random (test 62 mg/dL 70-199 L Effecti ve 11/15/15, code = 9360) the glucose reference intervals have been updated ba sed on [place] Diabetes Association guidelines (Standards of Medical Care in Diabetes 2016. Diabetes Care 2016; 39: S13-S22).Fastin g blood glucose:Normal: 70-99 mg/dLImpaired fasting glucose (increased risk for diabetes or pre-diabetes): 100-125 mg/dLDiabetes mellitus: >/=1 26 mg/dL Random bl ood glucose:Normal: 70-199 mg/dLNot e: Random glucose >100 mg/dL is associated with increased risk for diabetes HAL (test code = HAL) Schedule in Fast Track Lab Interpretation Abnormal (test code = 54484-6) MD AguirrePhosphorus [id number] 18:26:17 Test Item Value Reference Range Interpretation Comments Phosphorus (test code = 3.8 mg/dL 2.5-4.5 6817) HAL (test code = HAL) Schedule in Fast Track MD AguirreGlomerular Filtration [id number] 18:26:16 Test Item Value Reference Range Interpretation Comments eGFR-AA (test 90 See_Comment Normal eGFR: >= 60 code = 8062) mL/min/1.73 m2N ote: The eGFR is calcula leon using the CKD-E PI equation. The e GFR declines with a ge. eGFR <60 mL/min/1.73 m2 is considered as "decreased". Th is equation should only be used for patien ts 18 and older. Acco rding to the National Ki dney Foundation's Ki dney Disease Outcome Quality Initiative (KDO QI) classification and 2012 Kidney Disease Improving Globa l Outcomes (KDIGO ) Clinical Practi ce Guideline, the stage of CKD should be categorized bas ed on estimated GFR. Stage Description GFR mL/min/1.73 m21 Normal or high GFR >=902 Mildly de creased GFR 60-893a Mildly to moderately decr eased GFR 45-593b Moderately to s everely decreased GFR 30-444 Severely decreased GFR 15-295 Kidney f ailure <15 [Autom ated message] The sy stem which generated this result transmit leon reference range : >=60 mL/min/1.73 sq. m. The reference range was not used to interpr et this result as normal/abnormal . eGFR-SARI (test 78 See_Comment Normal eGFR: >= 60 code = 8063) mL/min/1.73 m2N ote: The eGFR is calcula leon using the CKD-E PI equation. The e GFR declines with a ge. eGFR <60 mL/min/1.73 m2 is considered as "decreased". Th is equation should only be used for patien ts 18 and older. Acco rding to the National Ki dney Foundation's dney Disease Outcome Quality Initiative (KDO QI) classification and 2012 Kidney Disease Improving Globa l Outcomes (KDIGO ) Clinical Practi ce Guideline, the stage of CKD should be categorized bas ed on estimated GFR. Stage Description GFR mL/min/1.73 m21 Normal or high GFR >=902 Mildly de creased GFR 60-893a Mildly to moderately decr eased GFR 45-593b Moderately to s everely decreased GFR 30-444 Severely decreased GFR 15-295 Kidney f ailure <15 [Autom ated message] The sy stem which generated this result transmit leon reference range : >=60 mL/min/1.73 sq. m. The reference range was not used to interpr et this result as normal/abnormal . AHL (test code Schedule in Fast = HAL) Track MD [id number] 18:26:15 Test Item Value Reference Range Interpretation Comments LDH (test code 162 U/L 135-214 Results great er than = 6111) 1651 U/L may no t be reliable due to matrix effect with ext ended dilution as it exceeds the manufacture r s recommended l imit. Caution should be exercised when interpreting grant ch values and done in conjunction wit h clinical contex t. HAL (test code Schedule in Fast = HAL) Track MD AguirreUric [id number] 18:26:14 Test Item Value Reference Range Interpretation Comments Uric Acid (test code = 3.4 mg/dL 2.4-5.7 7955) HAL (test code = HAL) Schedule in Fast Track MD AguirreCalcium [id number] 18:26:13 Test Item Value Reference Range Interpretation Comments Calcium Lvl (test code 8.8 mg/dL 8.4-10.2 = 5258) HAL (test code = HAL) Schedule in Fast Track MD AguirreTotal [id number] 18:26:12 Test Item Value Reference Range Interpretation Comments Total Protein (test 6.8 g/dL 6.4-8.3 code = 7649) HAL (test code = HAL) Schedule in Fast Track MD AguirreAlbumin [id number] 18:26:11 Test Item Value Reference Range Interpretation Comments Albumin Lvl (test 4.5 See_Comment [Automate d message] code = 4763) The system Rubysophic h generated this result transmit leon reference range : 3.5 - 5.2 gm/dL. Th e reference range was not used to interpret this result as normal/abnormal . HAL (test code = Schedule in Fast HAL) Track MD AguirreMagnesium [id number] 18:26:10 Test Item Value Reference Range Interpretation Comments Magnesium (test code = 2.2 mg/dL 1.6-2.6 6359) HAL (test code = HAL) Schedule in Fast Track MD AguirreElectrolyte [id number] 18:26:09 Test Item Value Reference Range Interpretation Comments Sodium Lvl (test 141 See_Comment [Automated code = 7355) message] The sy stem which generated this result transmitted reference range : 136 - 145 mEq/L . The reference r gee was not used to interpret this result as normal/abnormal . Potassium Lvl 4.0 See_Comment [Automated (test code = 6854) message] The system which generated this result transmitted reference range : 3.5 - 5.1 mEq/L . The reference r gee was not used to interpret this result as normal/abnormal . Chloride (test 104 See_Comment [Automated code = 1849) message] The sy stem which generated this result transmitted reference range : 98 - 107 mEq/L. Th e reference range was not used to interpret this result as normal/abnormal . CO2 (test code = 27 See_Comment [Automated 9512) message] The sy stem which generated this result transmitted reference range : 22 - 29 mEq/L. The reference range was not used to interpret this result as normal/abnormal . Anion Gap (test 10 See_Comment [Automated code = 9325) message] The sy stem which generated this result transmitted reference range : 4 - 14 mEq/L. The reference range was not used to interpret this result as normal/abnormal . HAL (test code = Schedule in Fast HAL) Track MD AguirreAlkaline [id number] 18:26:08 Test Item Value Reference Range Interpretation Comments Alk Phos (test code = 69 U/L 35-104 4768) HAL (test code = HAL) Schedule in Fast Track MD AguirreAlanine [id number] 18:26:07 Test Item Value Reference Range Interpretation Comments ALT (test code 17 U/L See_Comment [Automated m essage] = 1415) The system Rubysophic h generated this result transmitted ref erence range: <=33. Th e reference range was not used to int erpret this result as normal/abnormal . HAL (test code Schedule in Fast = HAL) Track MD Aguirre.Serum [id number] 18:26:06 Test Item Value Reference Range Interpretation Comments Creatinine (test code = 0.95 mg/dL 0.51-0.95 5399) HAL (test code = HAL) Schedule in Fast Track MD [id number] 18:26:04 Test Item Value Reference Range Interpretation Comments BUN (test code = 5055) 12 mg/dL 6-23 MD AguirreRubmfbzaEfgpfmogiaiv0506-49-31 17:28:47 Test Item Value Reference Range Interpretation Comments Neutrophil % (test 75.3 % 42.0-66.0 H code = 61502-7) Lymphocyte % (test 16.8 % 24.0-44.0 L code = 737-7) Monocyte % (test code 6.3 % 2.0-7.0 = 744-3) Eosinophil % (test 0.8 % 1.0-4.0 L code = 713-8) Basophil % (test code 0.5 % 0.0-1.0 = 707-0) IGRE % (test code = 0.3 % 0.0-0.4 IGRE % c ount 96433-0) includes Metamyelocytes, Myelocytes, and Promyelocytes. Neutrophil Abs (test 7.10 K/uL 1.70-7.30 code = 753-4) Lymphocyte Abs (test 1.59 K/uL 1.00-4.80 code = 732-8) Monocyte Abs (test 0.59 K/uL 0.08-0.70 code = 743-5) Eosinophil Abs (test 0.08 K/uL 0.04-0.40 code = 712-0) Basophil Abs (test 0.05 K/uL 0.00-0.10 code = 705-4) IG Abs (test code = 0.03 K/uL 0.00-0.04 56380-4) HAL (test code = HAL) Schedule in Fast Track Lab Interpretation Abnormal (test code = 08759-6) MD Aguirre.[id number] 17:28:40 Test Item Value Reference Range Interpretation Comments WBC (test code = 9.4 K/uL 4.0-11.0 6690-2) RBC (test code = 4.53 See_Comment [Automated 789-8) message] The sy stem which generated this result transmitted reference range : 4.00 - 5.50 M/u L. The reference r gee was not used to interpret this result as normal/abnormal . Hgb (test code = 13.0 See_Comment [Automated 908-7) message] The sy stem which generated this result transmitted reference range : 12.0 - 16.0 gm/ dL. The reference r gee was not used to interpret this result as normal/abnormal . Hct (test code = 40.0 % 37.0-47.0 4544-3) MPV (test code = 12.2 fL 4.0-10.4 H 787-2) MCH (test code = 28.7 pg 27.0-31.0 785-6) MCHC (test code = 32.5 See_Comment [Automate d 786-4) message] The sy stem which generated this result transmitted reference range : 31.0 - 36.0 gm/ dL. The reference r gee was not used to interpret this result as normal/abnormal . RDW-SD (test code = 40.1 fL 35.1-46.3 91180-7) RDW-CV (test code = 12.3 % 12.0-15.5 788-0) Platelet count (test 252 K/uL 140-440 code = 777-3) INRBC (test code = 0.0 % See_Comment The INRBC 5974) (instrument NRB C) value reflects the enumerationof nucleated red b lood cells contained in a 200uL sampleo f whole blood analyzed by the instrument. Thi s value maydiffer from the NRBC v alue reported in a manual differential,wh ich is based on a 1 00 cell differenti al. [Automated mess age] The system [employer] generated this result transmit leon reference range : <=0.0. The reference range was not used to interpret this result as normal/abnormal . HAL (test code = HAL) Schedule in Fast Track Lab Interpretation Abnormal (test code = 82673-0) MD AguirrePOCT GRP A STREP (MOLECULAR)2021-03-16 16:11:00 Test Item Value Reference Range Interpretation Comments POCT GP A STREP (test negative Negative - code = 26862-2) Negative HAL (test code = HAL) accurate development and interpretation of all internal controls Lab Interpretation Normal (test code = 90527-8) [facility] W [id number] 02:55:38 No acute abdominopelvic process. Preliminary Report Dictated by Resident: Maico Bonilla I, Nati Florence MD., have reviewed this study and agree with theabove report.EXAM: CT ABDOMEN AND PELVIS WITH CONTRAST HISTORY: Patient has a history of Lupus, patient children had COVID patientis having chest tightness, dizzy and left lower quad ab pain, diarrhea,Covid positive. No leukocytosis. COMPARISON: None. TECHNIQUE AND FINDINGS: Contiguous axial imaging from the level of the lungbases through the proximal thighs was performed after the administration ofintravenous Omnipaque contrast. Coronal and sagittal reconstructions wereobtained. ?Auto mA and/or iterative reconstruction were used to reduceradiation dose. FINDINGS: LOWER THORAX: The lungs bases are clear. No cardiomegaly. LIVER: No focalhepatic lesions. ?Normal contour. GALLBLADDER AND BILIARY TREE: No biliary ductal dilation. Postcholecystectomy. SPLEEN: No splenomegaly. PANCREAS: No ductal dilation or masses. ADRENAL GLANDS: No adrenal nodules. KIDNEYS: No hydronephrosis, stones. Indeterminate left renalhypoattenuating foci measuring up to 0.9 cm, too small to characterize,likely cysts. PERITONEUM AND RETROPERITONEUM: No free air or fluid. LYMPH NODES: No lymphadenopathy. GI TRACT: No dilation or wall thickening. Surgical suture material is notedabout the cecum and right lower quadrant. The appendix is not visualized,likely surgically absent. PELVIS/BLADDER: The uterus and bilateral ovaries appears unremarkable. Theurinary bladder is nondistended.. VESSELS: Unremarkable. BONES AND SOFT TISSUES: No suspicious lytic or sclerotic bony lesions. [facility], Radiant Results Inft User - 12/04/2020 9:56 PM CDTFormatting of this note mightbe different from the original.EXAM: CT ABDOMEN AND PELVIS WITH CONTRASTHISTORY: Patient has a history of Lupus, patient children had COVID patientis having chest tightness, dizzy and left lower quad ab pain, diarrhea,Covid positive. No leukocytosis.COMPARISON: None.TECHNIQUE AND FINDINGS: Contiguous axial imaging from the level of the lungbases through the proximal thighs was performed after the administration ofintravenous Omnipaque contrast. Coronal and sagittal reconstructions wereobtained. Auto mA and/or iterative reconstruction were used to reduceradiation dose.FINDINGS:LOWER THORAX: The lungs bases are clear. No cardiomegaly. LIVER: No focal hepatic lesions. Normal contour.GALLBLADDER ANDBILIARY TREE: No biliary ductal dilation. Postcholecystectomy.SPLEEN: No splenomegaly.PANCREAS: No ductal dilation or masses.ADRENAL GLANDS: No adrenal nodules.KIDNEYS: No hydronephrosis, stones. Indeterminate left renalhypoattenuating foci measuring up to 0.9 cm, too small to characterize,likely cysts.PERITONEUM AND RETROPERITONEUM: No free air or fluid.LYMPH NODES: No lymphadenopathy.GI TRACT: No dilation or wall thickening. Surgical suture material is notedabout the cecum and right lower quadrant. The appendix is not visualized,likely surgically absent.PELVIS/BLADDER: The uterus and bilateral ovaries appears unremarkable. Theurinary bladder is nondistended..VESSELS: Unremarkable.BONES AND SOFT T ISSUES: No suspicious lytic or sclerotic bony lesions.IMPRESSIONNo acute abdominopelvic process.Preliminary Report Dictated by Resident: Maico Mcintosh, Nati Florence MD., have reviewed this study and agree with theabove report.[facility] 1 [id number] 02:48:05 No radiographic evidence of acute cardiopulmonary process. Preliminary Report Dictated by Resident:Nati Mcbride MD., have reviewed this study and agree with theabove report.EXAM: XR CHEST 1 VW COMPARISON: Same day CT abdomen pelvis HISTORY: chest pain, SOB FINDINGS: Lungs:The lungs are clear. and well-expanded No pleural effusion orpneumothorax is identified. Heart/Mediastinum: The cardiomediastinal silhouette is normal in sizeaccounting for technique. Bones: No osseous lesions are detected. The soft tissues appear normal [facility], Radiant Results Inft User - 12/04/2020 9:49 PM CDT EXAM: XR CHEST 1 VWCOMPARISON: Same day CT abdomen pelvisHISTORY: chest pain, SOB FINDINGS:Lungs: The lungs are clear. and well-expanded No pleural effusion orpneumothorax is identified. Heart/Mediastinum: The cardiomediastinal silhouette is normal in sizeaccounting for technique.Bones: No osseous lesions are detected. The soft tissues appear normalIMPRESSIONNo radiographic evidence of acute cardiopulmonary process.Preliminary Report Dictated by Resident: Maico Mcintosh, Nati Florence MD., have reviewed this study and agree with theabove report.[facility] DentonTROPONIN [id number] 02:05:12 Test Item Value Reference Interpretation Comments Range TROPONIN I (test 0.014 ng/mL See_Comment [Automated code = 2417120757) message] The system which generated this result transmitted reference range : <=0.034. The reference range was not used to interpret this result as normal/abnormal . HAL (test code = Reference (Normal) HAL) Range (defined by the 99th percentile reference limit): <= 0.034 ng/mL Note: Cardiac troponin begins to rise 3-4 hours after the onset of ischemia. Repeat in 4-6 hours if the sample was drawn within 3-4 hours of the onset of the symptom and found normal. Diagnosis of myocardial injury is made with acute changes in cTn concentrations with at least one serial sample above the 99th percentile upper reference limit (URL), taken together with the patient's clinical presentation. Biotin has been reported to cause a negative bias, interpret results relative to patient's use of biotin. Lab Interpretation Normal (test code = 66697-1) [facility]. METABOLIC PANEL (05425)2020-12-05 01:53:53 Test Item Value Reference Range Interpretation Comments NA (test code = 139 mmol/L 135-145 8657127629) K (test code = 3.7 mmol/L 3.5-5.0 1350041469) CL (test code = 109 mmol/L 98-108 H 1030431940) CO2 TOTAL (test code = 22 mmol/L 23-31 L 7530713572) AGAP (test code = 2-16 8594410186) BUN (test code = 17 mg/dL 7-23 8326861209) GLUCOSE (test code = 99 mg/dL 70-110 4910023685) CREATININE (test code = 1.14 mg/dL 0.50-1.04 H 4942821577) TOTAL BILI (test code = 0.3 mg/dL 0.1-1.6 3055706872) CALCIUM (test code = 8.7 mg/dL 8.6-10.6 8536752596) T PROTEIN (test code = 7.4 g/dL 6.3-8.2 0757152767) ALBUMIN (test code = 4.7 g/dL 3.5-5.0 0111330291) ALK PHOS (test code = 62 U/L 34-122 8573227738) ALTv (test code = 16 U/L 5-35 1742-6) AST(SGOT) (test code = 18 U/L 13-40 3132976178) eGFR (test code = mL/min/1.73m2 7724439551) HAL (test code = HAL) Association of Glomerular Filtration Rate (GFR) and Staging of Kidney Disease* + --+ --+ ------+| GFR (mL/min/1.73 m2) ?| With Kidney Damage ?| ?Without Kidney Damage+ --------+ --------+ +| ?>90 ?| ?Stage one ?| ? Normal ?+ ---+ ---+ -------+| ?60-89 ?| ?Stage two ?| ? Decreased GFR ? + --+ --+ ------+| ?30-59 ?| ?Stage three ?| ? Stage three ? + --+ --+ ------+| ?15-29 ?| ?Stage four ? | ? Stage four ?+ ---+ ---+ -------+| ?<15 (or dialysis) ? ?| ?Stage five ? | ? Stage five ?+ ---+ ---+ -------+ *Each stage assumes the associated GFR level has been in effect for at least three months. ?Stages 1 to 5, with or without kidney disease, indicate chronic kidney disease. Notes: Determination of stages one and two (with eGFR >59mL/min/1.73 m2) requires estimation of kidney damage for at least three months as defined by structural or functional abnormalities of the kidney, manifested by either:Pathological abnormalities or Markers of kidney damage (including abnormalities in the composition of the blood or urine or abnormalities in imaging tests). Lab Interpretation Abnormal (test code = 60763-1) [facility]entonLIPASE2021-08-17 01:53:12 Test Item Value Reference Range Interpretation Comments LIPASE (test code = 5912702857) 101 U/L 0-220 Lab Interpretation (test code = Normal 08946-1) [facility]entonURINALYSIS2021-08-17 01:52:17 Test Item Value Reference Range Interpretation Comments APPEARANCE (test code = Cloudy Clear A 9966332603) COLOR (test code = Yellow Yellow 3690882924) PH (test code = 4.8-8.0 4998229647) SP GRAVITY (test code = 1.003-1.030 5670222975) GLU U QUAL (test code = Normal Normal 0003581032) BLOOD (test code = Negative Negative 9403292564) KETONES (test code = Negative Negative 7188588883) PROTEIN (test code = Negative Negative 2887-8) UROBILIN (test code = 4.0 mg/dL Normal A 2928596118) BILIRUBIN (test code = Negative Negative 4282908089) NITRITE (test code = Negative Negative 6124272379) LEUK REKHA (test code = Negative Negative 2606770481) RBC/HPF (test code = See_Comment [Autom ated message] 3452722535) The system [employer] generated this result transmit leon reference range : 0 - 3 HPF. The refe rence range was not u sed to interpret th is result as normal/abnormal . WBC/HPF (test code = <1 See_Comment [Autom ated message] 6236428488) The system whic h generated this result transmit leon reference range : 0 - 5 HPF. The refe rence range was not u sed to interpret th is result as normal/abnormal . BACTERIA (test code = Many Negative A 2959899988) MUCOUS (test code = Slight Negative LPF A 4700906677) AMORPHOUS (test code = Moderate Rare HPF A 6009385473) SQ EPITH (test code = HPF 4946569138) Lab Interpretation (test Abnormal code = 43066-4) [facility] WITH [id number] 01:42:11 Test Item Value Reference Range Interpretation Comments WBC (test code = See_Comment [Automated 6690-2) message] The sy stem which generated this result transmitted reference range : 4.30 - 11.10 10*3/?L. The reference range was not used to interpret this result as normal/abnormal . RBC (test code = See_Comment [Automated 789-8) message] The sy stem which generated this result transmitted reference range : 3.93 - 5.25 10*6/?L. The reference range was not used to interpret this result as normal/abnormal . HGB (test code = 11.8 g/dL 11.6-15.0 718-7) HCT (test code = 35.4 % 35.7-45.2 L 4544-3) MCV (test code = 83.9 fL 80.6-95.5 787-2) MCH (test code = 28.0 pg 25.9-32.8 785-6) MCHC (test code = 33.3 g/dL 31.6-35.1 786-4) RDW-SD (test code = 41.1 fL 39.0-49.9 00805-4) RDW-CV (test code = 13.5 % 12.0-15.5 788-0) PLT (test code = See_Comment [Automated 777-3) message] The sy stem which generated this result transmitted reference range : 166 - 358 10*3/ ?L. The reference r gee was not used to interpret this result as normal/abnormal . MPV (test code = 12.3 fL 9.5-12.9 52137-2) NRBC/100 WBC (test See_Comment [Automat ed code = 5071053584) message] The system which generated this result transmitted reference range : 0.0 - 10.0 /100 WBCs. The refer ence range was not u sed to interpret th is result as normal/abnormal . NRBC x10^3 (test code <0.01 See_Comment [Auto mated = 5625098969) message] The s ystem which generated this result transmitted reference range : 10*3/?L. The reference range was not used to interpret this result as normal/abnormal . GRAN MAT (NEUT) % 54.5 % (test code = 770-8) IMM GRAN % (test code 0.40 % = 0886060221) LYMPH % (test code = 33.6 % 736-9) MONO % (test code = 8.5 % 5905-5) EOS % (test code = 2.4 % 713-8) BASO % (test code = 0.6 % 706-2) GRAN MAT x10^3(ANC) 2.69 10*3/uL 1.88-7.09 (test code = 4787633125) IMM GRAN x10^3 (test <0.03 0.00-0.06 code = 7935372096) LYMPH x10^3 (test code 1.66 10*3/uL 1.32-3.29 = 731-0) MONO x10^3 (test code 0.42 10*3/uL 0.33-0.92 = 742-7) EOS x10^3 (test code = 0.12 10*3/uL 0.03-0.39 711-2) BASO x10^3 (test code 0.03 10*3/uL 0.01-0.07 = 704-7) Lab Interpretation Abnormal (test code = 63103-9) [facility] [id number] 01:31:00 Test Item Value Reference Range Interpretation Comments POCT PREG (test code = 1605) negative On board controls acceptable with present C Line (test code = 3574) POCT PREG LOT # (test code = 3575) [id number] POCT PREG TEST DATE (test 04/20/22 code = 3576) Lab Interpretation (test code = Normal 56673-9) [facility] GRP A STREP (MOLECULAR)2020-12-04 00:43:00 Test Item Value Reference Range Interpretation Comments POCT GP A STREP (test code = Negative Negative - Negative 49736-9) Lab Interpretation (test code = Normal 46037-8) [facility] GRP A STREP (MOLECULAR)2020-12-04 00:43:00 Test Item Value Reference Range Interpretation Comments POCT GP A STREP (test code = Negative Negative - Negative 41291-2) Lab Interpretation (test code = Normal 94904-7) [facility] Thoracic Spine W Yzolwzhu5373-18-78 23:13:41EXAMINATION: MRI THORACIC SPINE W CONTRAST CLINICAL HISTORY: Evaluation of right sided hemiparesishemisensory loss COMPARISON: Thoracic spinal MRI on 02/03/2020, [...] without significant spinal canal stenosis. No significant neuralforaminal stenosis. Visualized paraspinal soft tissues are unremarkable. IMPRESSION: Stable thoracicspinal MRI with unremarkable spinal cord, no evidence of demyelinating lesion. Stable mild spondylosis at T8-9 without significant spinal canal or neural foraminal stenosis. [id number]_PS02Hm Interface, Radiology Results Incoming - 06/06/2020 5:16 PM CSTFormatting of this note might be different from theoriginal.EXAMINATION: MRI THORACIC SPINE W CONTRASTCLINICAL HISTORY: Evaluation of right sided dionisio paresis hemisensory lossCOMPARISON: Thoracic spinal MRI on 02/03/2020, concurrent cervical and lumbar spinal MRIs on 06/06/2020.TECHNIQUE: Postcontrast thoracic spine MRI after intravenous contrast administration, MS protocol.FINDINGS:The spinal cord is normal in signal with no abnormal enhancement.Normal thoracic kyphosis and alignment. Vertebral body heights are preserved. Bone marrow signal is unremarkable with no evidence of acute fracture or suspicious marrow-replacing lesion. T8-9: Again notedis chronic Schmorl's node along T8 inferior endplate, moderate disc height loss, and shallow broad-ba sed left paracentral disc protrusion without significant spinal canal stenosis.No significant neuralforaminal stenosis.Visualized paraspinal soft tissues are unremarkable.IMPRESSION:Stable thoracic spinal MRI with unremarkable spinal cord, no evidence of demyelinating lesion. Stable mild spondylosis at T8- 9 without significant spinal canal or neural foraminal stenosis.1M2RAD_PS02 [facility] Cervical Spine W Wdyuyqrc7319-03-34 23:08:17EXAMINATION: MRI CERVICAL SPINE W CONTRAST CLINICAL HISTORY: Right sided hemiparesis hemisensory [...] No significant posterior disc disease, spinal canal orneural foraminal stenosis. C5-C6: No significant posterior disc disease, spinal canal or neural foraminal stenosis. C6-C7: No significant posterior disc disease, spinal canal or neural foraminal stenosis. C7-T1: No significant posterior disc disease, spinal canal or neural foraminal stenosis. No significant posterior disc disease, spinal canal or neural foraminal stenosis at other visualized levels.IMPRESSION: No significant cervical spine abnormality identified. No enhancing lesion identified. [facility]-[id number] Interface, Radiology Results 06/06/2020 5:11 PM CST EXAMINATION: MRI CERVICAL SPINE W CONTRASTCLINICAL HISTORY: Right sided hemiparesis hemisensory lossCOMPARISON: NoneTECHNIQUE: Multiplanar multisequence pre and post contrast enhanced examination was performed of the cervical spine.FINDINGS: Vertebral body heights are maintained. The cervicomedullary junction is unremarkable. No cord signal abnormality ident ified. No focal marrow lesions. No masses are [...] cervical spine abnormality identified. No enhancing lesion identified.[facility]-[id number] [facility] Brain W Wo Hjkzksoc7114-52-51 22:41:58EXAMINATION: MRI BRAIN W WO CONTRAST CLINICAL HISTORY: RIght sided hemiparesis hemisensory loss [...] intact. Mucous retention cysts are again noted alongthe floor of the right maxillary sinus. Mastoid air cells are clear. Bones, orbits, and soft tissuesare unremarkable. IMPRESSION: Unremarkable brain MRI with no evidence of demyelinating lesion or other acute intracranial abnormality. 1M2RAD_PS02Hm Interface, Radiology Results 06/06/2020 4:45 PM CST EXAMINATION: MRI BRAIN W WO CONTRASTCLINICAL HISTORY: RIght sided hemiparesis hemisensory lossCOMPARISON: Orbit and brain MRI on 02/03/2020.TECHNIQUE: Brain MRI without and with intravenous gadolinium contrast, MS protocol.FINDINGS:The brain appears stable, normal in signal and configuration with no evidence of acute infarction, hemorrhage, mass lesion, or abnormal enhancement.Ventricles, sulci, and cisterns are stable and normal in size and configuration. No extra-axial fluid collection. Flow voids of the major intracranialvessels are intact.Mucous retention cysts are again noted along the floor of the right maxillary sinus. Mastoid air cells are clear. Bones, orbits, and soft tissues are unremarkable.IMPRESSION:Unremarkable brain MRI with no evidence of demyelinating lesion or other acute intracranial abnormality.1M2RAD_PS02[facility] HospitalCT Chest Wo Baiosnet5582-56-91 18:08:03EXAMINATION: CT CHEST WO CONTRAST HISTORY: COVID-19 positive with chest tightness TECHNIQUE: CT examination of the chest was performed without intravenous contrast. Radiation dose-reduction techniques were used, whereby technical factors are evaluated and adjusted to ensure appropriate moderation of exposure. Automated dose management technology is applied to adjust radiation exposure while achievinga diagnostic quality image. COMPARISON: No prior CT available. FINDINGS: Devices: None. Pulmonary:Minimal nodular groundglass opacity along the periphery of the right upper lobe, as well as base. Noconsolidative pulmonary opacity. No suspicious pulmonary nodule. Pleural: [...] this is compatible with mild Covid pneumonia. [facility]-[id number] Interface, Radiology Results - 06/06/2020 12:11 PM CST EXAMINATION: CT CHEST WO CONTRASTHISTORY: COVID-19 positive with chest tightnessTECHNIQUE: CT examination of the chest was performed without intravenous contrast. Radiation dose- reduction techniques were used, whereby technical factors are [...] findings, this is compatible with mild Covid pneumonia.[id number] Health [facility] HospitalUrine mqlzgme0551-49-52 18:51:05 Test Item Value Reference Range Interpretation Comments Urine culture (test SEE COMMENT Bacteriu kieran screen code = 2295799) negative. [facility]fieldOCT, Optic Nerve - [id number] 19:34:42Isidro Ruby MD - 05/24/2020 5:54 PM CSTFormatting of this note might be different from the origi nal.[facility] Hospital MansfieldAutomated Visual Field, Extended - [id number] 19:34:39 Isidro Ruby MD - 05/24/2020 5:54 PM CST [facility]3 in 1 Gezqlns5105-84-83 16:07:52 Test Item Value Reference Range Interpretation Comments SUPPLIER NAME (test XMED Oxygen and code = 6415) Medical SUPPLIER PHONE (test [phone] code = 6416) ORDER STATUS (test code Delivery Successful = 6417) DELIVERY NOTE (test code = 6419) REQUESTED DELIVEY DATE 02/16/2020 (test code = 6420) ITEM DESCRIPTION (test 3 in 1 Commode Qty : 1 code = 6423) ACTUAL DELIVERY DATE 02/16/2020 (test code = 6422) [facility] General Nhhylht7445-05-33 18:23:11Electromyogram and NCS ReportHUGH CHATHAM [facility]OR[facility] Neurological [address],[place], [place]T: F : Patient: Snow Argueta Physician: [...] Site: Wrist Pk Lat (ms) Amp (uV)Stim Rpne1jh dig 2.5 21.0 Sensory Nerve Study Right [...] Tibial Nerve Left Tibial Nerve Right Tibial NerveMethodist HospitalVisual evoked potentials 2020-02-15 15:07:24 PATTERN REVERSAL VISUAL EVOKED POTENTIAL REPORT Patient Name: Snow Argueta Date of : 1985 Gender: female Date of Procedure: 02/14/2020 IndicationVision loss FindingsPattern reversal visual evoked potentials were obtained following independent left and right full field monocularstimulation. JwvM418 absolute latencies were 99.8 msec and 102.6 msec following independent left andright eye stimulation. All interpeak latencies and waveform morphologies were normal. ImpressionThisis a normal study. ICD10 Code/Diagnosis: J16Ibinsnxcm HospitalMRI Lumbar Spine W Wo Rflgadiw0251-22-46 16:16:59EXAMINATION: MRI LUMBAR SPINE W WO CONTRAST [...] on the right.Recommend correlation to radiculopathy distribution. [facility]-[id number] Interface, Radiology Results Incoming - 02/13/2020 11:20 AM CDT EXAMINATION: MRI [...] on the right. Recommend correlation to radiculopathy distribution.[facility]-[id number] Duncan Regional Medical Center Brain Venogram 2020-02-13 14:57:03EXAM: MRI BRAIN VENOGRAM CLINICAL HISTORY: Headache chronic normal neuro exam TECHNIQUE: Head MRvenogram using 2D jcpa-yf-rbxdky technique with multi-planar MIP and 3D reconstruction. 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.1M2RAD_PS01[facility] HospitalVENIPVIDANT PUN[facility] NEED PHYS SKILL,DX OR [id number] 15:39:11CFamilia hickey RN 02/08/2020 10:40 AMMidline Date/Time: [...] Flat Vessel Size (mm): 5 Indication: Known retirement IV therapy Location: Left basilic Device Type:Non-valved Catheter Lumen(s): Single lumen Catheter size: 3 Fr Catheter to vein ratio: 24%MidLine Characteristics: Catheter Brand: THOMAS POST MIDLINE Internal Catheter Length (cm): 12 TotalCatheter Length (cm): 12 Catheter Lot Number: [id number] Catheter Expiration Date: 2Procedure details: Landmarks identified: [...] tolerance of procedure: Tolerated well, no immediate complicationsJewish Maternity HospitalodiSt. George [facility] duplex venous upper zfducqsdu8557-54-36 03:03:00 Vascular Ultrasound Laboratory Upper Extremity Venous Report [address] [place] [address] Pat.Name: SNOW ARGUETA Pat.ID: [id number] .Date: 02/07/2020 Refer.MD: MICHAEL MADDOX MD Exam Time: 4:33:00 PM Frances betancur Type:UE Venous Height: 66in Weight: 220lb BSA: 2.08 m2 Age: 7 1985,34Y Sex: FEMALE Sonogrphr: Ryan Torres, RVT Pat. Stat.:Inpatient Room: TG30-1792-W Tape Vol: HV, CPT - 4: 21227 Echo Event ID:[id number] Order ID: [id number] Reason for Study:Right arm pain and swelling. [...] Si gned 02/07/2020 10:03 PMChaz Obrien MD, RPVIInterst. michaels medical [facility], Radiology Results In - 02/07/2020 10:03 PM CDTFormatting of thisnote might be different from the original. Vascular Ultrasound Laboratory Upper Extremity Venous Report [address] [place] [address] Pat.Name: SNOW ARGUETA Pat.ID: [id number] .Date: 02/07/2020 Refer.MD: MICHAEL MADDOX MD Exam Time: 4:33:00 PM Study Type:UE Venous Height: 66in Weight: 220lb BSA: 2.08 m2 Age: 7 1985,34Y Sex: FEMALE Sonogrphr: Ryan Torres RVT Pat. Stat.:Inpatient Room: [address] Tape Vol: , [facility] - 4: 27675 Echo Event ID:[id number] Order ID: [id number] Reason for Study:Right arm pain and swelling. [...] FINDINGS: Signed 02/07/2020 10:03 Yessi Obrien MD, KAMRYNVIHindu HospitalFlow cytometry [id number] 14:52:18 Test Item Value Reference Range Interpretation Comments Case number (test code = [id number]) Flow cytometry evaluation See link below for (test code = 6821287) PDF Lab Report Hindu HospitalVENIPUNC NEED PHYS SKILL,DX OR [id number] 14:18:07Javier Borjas RN 02/07/2020 9:21 AMMidline Date/Time: [...] Catheter Length (cm): 12 Catheter Lot Number: [id number] Catheter Expiration Date: 1Procedure details: Landmarks identified: [...] tolerance of procedure: Tolerated well, no immediate complicationsTexas Health Hospital MansfieldEC 12 cnao8571-50-20 17:49:19 Test Item Value Reference Range Interpretation Comments Ventricular rate (test code = 253) Atrial rate (test code = 255) NV interval (test code = 266) QRSD interval [...] 04:50,-No significant change was found- [facility] MansfieldXR Chest 1 Vw Mowfbbhv0088-83-08 03:09:52EXAMINATION: XR CHEST 1 VW PORTABLE CLINICAL HISTORY: 34 years Female chest pressure on exertion COMPARISON: None. IMPRESSION: No acute cardiopulmonary disease. FINDINGS: The cardiomediastinal silhouette, lungs, and regional skeletal structures are within normal limits for age. [facility]-[id number] Interface, Radiology Results Incoming - 02/05/2020 10:12 PM CDT EXAMINATION: XR CHEST 1 VW PORTABLECLINICAL HISTORY: 34 years Female chest pressure on exertionCOMPARISON: None.IMPRESSION:No acute cardiopulmonary disease.FINDINGS:The cardiomediastinal silhouette, lungs, and regional skeletal structures are within normal limits for age. [facility]-DU27GJVGDhzuxcbcj HospitalCytology (non-gynecological) request 2020-02-04 23:15:16 Test Item Value Reference Range Interpretation Comments Case number (test code = [id number]) Cytology See link below for (non-gynecological) PDF Lab Report report (test code = 1178) Result status (test code This is Final Report = [id number]) for [id number] [facility] MansfieldEE (routine)2020-02-04 15:51:25EEG AWAKE AND ASLEEP Date of Service: 02/04/2020 Awake Recording: The occipital dominant rhythm is 10-11 Hz. 18-22 Hz activity is present in all regions. Sleep Recording: No epileptiform activity was recorded. Hyperventilation: No abnormality elicited. Photic Stimulation: No abnormality elicited. Impression The background activity is within the range of normal variation. No lateralized or epileptiform activity was recorded. ICD-10 Code: Z003Aisdqxryq HospitalIR Lumbar Puncture by Radiology 2020-02-04 15:23:15EXAMINATION: [...] Opening pressure was 21 cm of water. [facility]-[id number] [facility], Radiology Results - 02/04/2020 10:26 AM CDT EXAMINATION: IR [...] lumbar puncture.Opening pressure was 21 cm of water.[facility]-[id number] [facility] Center Brain & Orbit W Wo Aemwtppb6841-46-22 03:36:27EXAMINATION: MRI BRAIN & ORBIT W WO [...] Unremarkable MRI of the brain and orbits. [facility]- [id number] Interface, Radiology Results 02/03/2020 10:39 PM CDT [...] are preserved.IMPRESSION:Unremarkable MRI of the brain and orbits.[facility]-[id number]. [facility] Head Wo [id number] 21:17:18 EXAM: CT HEAD WO CONTRAST CLINICAL [...] structures are intact.IMPRESSION:No CT evidencefor acute intracranial abnormality.[id number]
[2021-05-10 23:13] LABS: Urine Blood Negative (Negative); Urine Glucose Negative (Negative); Urine Protein Negative (Negative); Urine Specific Gravity >=1.030 (1.005-1.030); Urine pH 6.5 (5.0-7.0)
[2021-05-10] MEDS ORDERED: MORPHINE 4 MG/ML SYR ONE (23:16)
[2021-05-10] MEDS ORDERED: NA CHLORIDE 0.9% 1,000 ML ONE (23:16)
[2021-05-10] MEDS ORDERED: PROMETHAZINE INJ 25 MG/ML AMP ONE (23:17)
[2021-05-10 23:19] LABS: Urine Specific Gravity/Preg >1.030 (1.005-1.030)
[2021-05-10 23:23] LABS: Protime INR 1.03
[2021-05-10 23:24] LABS: Absolute Lymphocytes (CBC) 2.4 K/uL (0.7-4.9); Hematocrit 33.4 % (36.0-45.0); Lymphocytes % 32.8 % (15.3-44.8); RBC Red Blood Cell Count 3.97 M/uL (3.86-4.86)
[2021-05-10 23:31] LABS: Urine Amorphous Sediment 1+ /HPF (NONE SEEN); Urine Bacteria >50 /HPF (<20); Urine Mucus 1+ /HPF (NONE SEEN); Urine RBC <5 /HPF (NONE SEEN)
[2021-05-10 23:32] LABS: Urine Coarse Granular Casts 0-5 /LPF (NONE SEEN)
[2021-05-10 23:40] LABS: ALT/SGPT 22 U/L (12-78); AST/SGOT 6 U/L (15-37); Albumin 3.3 g/dL (3.4-5.0); Alkaline Phosphatase 54 U/L (45-117); BUN Blood Urea Nitrogen 16 mg/dL (7-18); Bicarbonate 24 mmol/L (21-32); Bilirubin Direct < 0.1 mg/dL (0-0.2); Bilirubin Total 0.2 mg/dL (0.2-1.0); Glucose Level 107 mg/dL (74-106); Lipase 165 U/L (73-393); Magnesium 2.1 mg/dL (1.8-2.4); NT PRO-BNP 14 pg/mL (<125); Potassium 3.9 mmol/L (3.5-5.1); Protein, Total 6.5 g/dL (6.4-8.2); Sodium Level 138 mmol/L (136-145)
--- NOTE | 2021-05-11 02:20 | ER ---
Nurse's Notes [facility] Name: Snow Argueta Age: 35 yrs Sex: Female : 1985 Arrival Date: 05/10/2021 Time: 22:38 Bed 23 Private MD: Diagnosis: Abdominal pain, unspecified;Chest pain, unspecified Presentation: 05/10 22:55 Chief complaint: Patient states: pain to left sided rib/LUQ pain, intermittent sternal as6 chest pain, weakness/dizziness, nausea, diarrhea x1. Coronavirus screen: At this time, the client does not indicate any symptoms associated with coronavirus-19. Ebola Screen: No symptoms or risks identified at this time. Initial Sepsis Screen: Does the patient meet any 2 criteria? No. Patient's initial sepsis screen is negative. Does the patient have a suspected source of infection? No. Patient's initial sepsis screen is negative. Risk Assessment: Do you want to hurt yourself or someone else? Patient reports no desire to harm self or others. Onset of symptoms was May 09, 2021. 22:55 Method Of Arrival: Wheelchair as6 22:55 Acuity: LEONEL 3 as6 Triage Assessment: 23:37 General: Appears distressed, uncomfortable, well groomed, well developed, well st1 nourished, Behavior is calm, cooperative. Pain: Complains of pain in abdomen Pain at worst was 10 out of 10 on a pain scale. level that patient reports is acceptable is 2 out of 10 on a pain scale. Quality of pain is described as aching, crampy, Pain began 2-3 days ago. Is intermittent, Alleviated by Aggravated by increased activity, Noted to be grimacing, guarding, Also complains of inability to concentrate, Current management - is no interventions. Goal of pain control is to be pain free, sleep comfortably, stay alert, perform activities of daily living. 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 LMP N/A - tubal as6 Historical: - Allergies: 22:58 Cephalexin; as6 22:58 Feraheme (Anaphylaxis); as6 22:58 Gadavist; as6 22:58 Latex, Natural Rubber; as6 22:58 Zofran; as6 - Home Meds: 22:58 omeprazole 40 mg Oral cpDR 1 cap once daily [Active]; Vyvanse 50 mg oral cap 1 cap once as6 daily [Active]; Trokendi XR 200 mg oral cp24 1 cap twice a day [Active]; Eliquis 5 mg oral tab 1 tab 2 times per day [Active]; hydroxychloroquine 100 mg oral 1 tab 2 times per day [Active]; levothyroxine 75 mcg cap 1 cap once daily [Active]; - PMHx: 22:58 ADD/ADHD; Blood Clot on R arm; Endometrosis; epilepsy; GERD; Hypothyroidism; Leukemia; as6 Lupus erythematosus; Pancreatitis; - PSHx: 22:58 Cholecystectomy; Appendectomy; Ligation of fallopian tube; as6 - Immunization history:: Client reports having NOT received the Covid vaccine. - Social history:: Smoking status: Patient denies any tobacco usage or history of. Screenin:45 Exposure risk/Travel Screening: None identified. st1 23:37 Abuse screen: Denies threats or abuse. Nutritional screening: No deficits noted. st1 Tuberculosis screening: No symptoms or risk factors identified. Fall Risk None identified. No fall in past 12 months (0 pts). No secondary diagnosis (0 pts). IV access (20 points). Ambulatory Aid- None/Bed Rest/Nurse Assist (0 pts). Gait- Normal/Bed Rest/Wheelchair (0 pts) Mental Status- Oriented to own ability (0 pts). Total Arteaga Fall Scale indicates No Risk (0-24 pts). Assessment: 23:35 Also complains of left upper quadrant abdominal pain and nausea. Cardiovascular: No st1 deficits noted. Reports nausea, Denies Rhythm is sinus rhythm. Respiratory: No deficits noted. Musculoskeletal: No deficits noted. Vital Signs: 22:45 BP 116 / 85; Pulse 78; Resp 16; Pulse Ox 99% on R/A; st1 22:55 BP 139 / 91; Pulse 88; Resp 13 S; Temp 98.7(O); Pulse Ox 99% on R/A; Weight 76.2 kg; as6 Height 5 ft. 6 in. (167.64 cm) (R); Pain 10/10; 23:15 Pain 10/10; st1 23:40 BP 102 / 72; Pulse 81; Resp 16; Temp 98.6; Pulse Ox 100% on R/A; Pain 10/10; st1 05/11 01:03 BP 106 / 68; Pulse 72; Resp 18; Pulse Ox 99% on R/A; st1 01:51 BP 103 / 67; Pulse 72; Resp 16; Pulse Ox 99% on R/A; st1 02:39 BP 105 / 68; Pulse 73; Resp 16; Pulse Ox 100% on R/A; Pain 2/10; st1 05/10 22:55 Body Mass Index 27.12 (76.20 kg, 167.64 cm) as6 Kameron Coma Score: 05/10 23:40 Eye Response: spontaneous(4). Verbal Response: oriented(5). Motor Response: obeys st1 commands(6). Total: 15. ED Course: 22:38 Patient arrived in ED. kc5 22:40 Rustam Eden PA is PHCP. cp 22:40 Darion Anthony MD is Attending Physician. cp 22:48 Teresa Lopez, EBONIE is Primary Nurse. st1 22:58 Triage completed. as6 23:03 Arm band placed on. as6 23:04 Placed in gown. Bed in low position. Call light in reach. Side rails up X2. Adult w/ as6 patient. manager monitoring on. Pulse ox on. NIBP on. 23:04 Troponin HS Sent. st1 23:04 PT-INR Sent. st1 23:04 CBC with Diff Sent. st1 23:04 LFT's Sent. st1 23:04 Magnesium Sent. st1 23:04 NT PRO-BNP Sent. st1 23:05 Basic Metabolic Panel Sent. st1 23:05 Basic Metabolic Panel Sent. st1 23:13 Urine Microscopic Only Sent. st1 23:17 XRAY Chest (1 view) In Process Unspecified. EDMS 23:39 Patient maintains SpO2 saturation greater than 95% on room air. st1 23:39 Inserted saline lock: 20 gauge in right antecubital area, using aseptic technique. st1 23:40 Door closed. Lights dimmed. Warm blanket given. Verbal reassurance given. Head of bed st1 elevated. 05/11 00:45 CT Chest For PE Angio Sent. st1 00:45 CT Abd/Pelvis - IV Contrast Only Sent. st1 00:54 CT Chest For PE Angio In Process Unspecified. EDMS 00:54 CT Abd/Pelvis - IV Contrast Only In Process Unspecified. EDMS 02:38 No provider procedures requiring assistance completed. IV discontinued, intact, st1 bleeding controlled, No redness/swelling at site. Pressure dressing applied. Administered Medications: 05/10 23:18 Drug: morphine 4 mg Route: IVP; Site: left antecubital; st1 23:18 Drug: NS 0.9% 1000 ml Route: IV; Rate: 1 bolus; Site: left antecubital; st1 23:18 Drug: Phenergan (promethazine) 12.5 mg Route: IVP; Site: left antecubital; st1 Outcome: 05/11 02:19 Discharge ordered by . giselle 02:38 [address] to st1 02:38 Condition: good 02:38 Discharge instructions given to patient, Instructed on discharge instructions, follow up and referral plans. medication usage, Demonstrated understanding of instructions, follow-up care, medications, Prescriptions given X 3. 02:40 Patient left the ED. st1 Signatures: Dispatcher [employer] EDPR Rustam Eden PA PA cp Slawson, Ashby RN RN as6 Audra Staley kc5 Teresa Lopez, EBONIE RN st1
--- NOTE | 2021-05-11 02:20 | EDPHYS ---
Physician Documentation [facility] Name: Snow Argueta Age: 35 yrs Sex: Female : 1985 Arrival Date: 05/10/2021 Time: 22:38 Bed 23 Private MD: ED Physician Darion Anthony HPI: 05/10 23:10 This 35 yrs old Female presents to ER via Wheelchair with complaints of Chest cp Pain, Abdominal Pain, Dizziness. 23:10 The patient or guardian reports chest pain that is located primarily in the left lower cp lateral chest. The patient presents with abdominal pain left upper lateral abdomen. 23:10 Onset: The symptoms/episode began/occurred yesterday. The symptoms do not radiate. cp Associated signs and symptoms: Pertinent positives: nausea, dizziness, 1 episode of diarrhea, Pertinent negatives: anorexia, constipation, diarrhea, dysuria, fever, hematuria, vaginal discharge, vomiting. Modifying factors: the symptoms are aggravated by breathing deeply, movement, pressure. The chest pain is described as sharp. BANKMAN: 23:03 LMP N/A - tubal as6 Historical: - Allergies: 22:58 Cephalexin; as6 22:58 Feraheme (Anaphylaxis); as6 22:58 Gadavist; as6 22:58 Latex, Natural Rubber; as6 22:58 Zofran; as6 - Home Meds: 22:58 omeprazole 40 mg Oral cpDR 1 cap once daily [Active]; Vyvanse 50 mg oral cap 1 cap once as6 daily [Active]; Trokendi XR 200 mg oral cp24 1 cap twice a day [Active]; Eliquis 5 mg oral tab 1 tab 2 times per day [Active]; hydroxychloroquine 100 mg oral 1 tab 2 times per day [Active]; levothyroxine 75 mcg cap 1 cap once daily [Active]; - PMHx: 22:58 ADD/ADHD; Blood Clot on R arm; Endometrosis; epilepsy; GERD; Hypothyroidism; Leukemia; as6 Lupus erythematosus; Pancreatitis; - PSHx: 22:58 Cholecystectomy; Appendectomy; Ligation of fallopian tube; as6 - Immunization history:: Client reports having NOT received the Covid vaccine. - Social history:: Smoking status: Patient denies any tobacco usage or history of. ROS: 23:15 Constitutional: Negative for body aches, chills, fever, poor PO intake. cp 23:15 Cardiovascular: Positive for chest pain, of the left lower lateral chest. cp 23:15 Respiratory: Negative for cough, shortness of breath, wheezing. 23:15 Abdomen/GI: Positive for abdominal pain, nausea, diarrhea, of the posterior aspect of left lateral abdomen and anterior aspect of left lateral abdomen, Negative for vomiting, constipation, black/tarry stool, rectal bleeding. 23:15 : Negative for urinary symptoms, vaginal bleeding, vaginal discharge. 23:15 Skin: Negative for rash. 23:15 Neuro: Positive for dizziness, Negative for altered mental status, headache, loss of consciousness, syncope, weakness. 23:15 All other systems are negative. Exam: 23:20 Constitutional: The patient appears in no acute distress, alert, awake, cp non-diaphoretic, non-toxic, well developed, well nourished, uncomfortable. 23:20 Head/Face: Normocephalic, atraumatic. cp 23:20 Eyes: Periorbital structures: appear normal, Conjunctiva: normal, no exudate, no injection, Sclera: no appreciated abnormality, Lids and lashes: appear normal, bilaterally. 23:20 ENT: External ear(s): are unremarkable, Nose: is normal, Mouth: Lips: moist, Oral mucosa: moist, Posterior pharynx: Airway: no evidence of obstruction, patent. 23:20 Chest/axilla: Inspection: normal, Palpation: crepitus, is not appreciated, tenderness, that is moderate, of the lateral lower chest below breast. 23:20 Cardiovascular: Rate: normal, Rhythm: regular. 23:20 Respiratory: the patient does not display signs of respiratory distress, Respirations: normal, no use of accessory muscles, no retractions, labored breathing, is not present, Breath sounds: are clear throughout, no decreased breath sounds, no stridor, no wheezing. 23:20 Abdomen/GI: Inspection: abdomen appears normal, Bowel sounds: active, all quadrants, Palpation: moderate abdominal tenderness, in the lateral upper abdomen, rebound tenderness, is not appreciated, involuntary guarding, is not appreciated. 23:20 Back: CVA tenderness, is absent. 23:20 Skin: cellulitis, is not appreciated, no rash present. 23:20 Neuro: Orientation: to person, place \T\ time. Mentation: is normal, Motor: moves all fours, strength is normal, Sensation: is normal. 23:30 ECG was reviewed by the Attending Physician. cp Vital Signs: 22:45 BP 116 / 85; Pulse 78; Resp 16; Pulse Ox 99% on R/A; st1 22:55 BP 139 / 91; Pulse 88; Resp 13 S; Temp 98.7(O); Pulse Ox 99% on R/A; Weight 76.2 kg; as6 Height 5 ft. 6 in. (167.64 cm) (R); Pain 10/10; 23:15 Pain 10/10; st1 23:40 BP 102 / 72; Pulse 81; Resp 16; Temp 98.6; Pulse Ox 100% on R/A; Pain 10/10; st1 05/11 01:03 BP 106 / 68; Pulse 72; Resp 18; Pulse Ox 99% on R/A; st1 01:51 BP 103 / 67; Pulse 72; Resp 16; Pulse Ox 99% on R/A; st1 02:39 BP 105 / 68; Pulse 73; Resp 16; Pulse Ox 100% on R/A; Pain 2/10; st1 05/10 22:55 Body Mass Index 27.12 (76.20 kg, 167.64 cm) as6 Kameron Coma Score: 05/10 23:40 Eye Response: spontaneous(4). Verbal Response: oriented(5). Motor Response: obeys st1 commands(6). Total: 15. MDM: 22:52 Patient medically screened. cp 23:30 Differential diagnosis: acute pericarditis, chest wall pain, costochondritis, cp pericarditis, pleurisy, pneumonia, pneumothorax, pulmonary embolus. 05/11 02:18 Data reviewed: vital signs, nurses notes, lab test result(s), EKG, radiologic studies, cp CT scan, plain films. 02:18 Test interpretation: by ED physician or midlevel provider: ECG, plain radiologic cp studies. 02:18 Counseling: I had a detailed discussion with the patient and/or guardian regarding: the cp historical points, exam findings, and any diagnostic results supporting the discharge/admit diagnosis, lab results, radiology results, to return to the emergency department if symptoms worsen or persist or if there are any questions or concerns that arise at home. 02:18 Response to treatment: the patient's symptoms have markedly improved after treatment, cp and as a result, I will discharge patient. 05/10 23:01 Order name: Basic Metabolic Panel 05/10 23: Order name: CBC with Diff; Complete Time: 00:04 cp 05/11 00:05 Interpretation: Normal except: HGB 11.1; HCT 33.4. cp 05/10 23:01 Order name: LFT's; Complete Time: 00:04 cp 05/10 23: Order name: Magnesium; Complete Time: 00:04 cp 05/10 23:01 Order name: NT PRO-BNP; Complete Time: 00:04 cp 05/10 23:01 Order name: PT-INR; Complete Time: 00:04 cp 05/10 23: Order name: Troponin HS; Complete Time: 00:04 cp 05/10 23:01 Order name: XRAY Chest (1 view) 05/10 23:01 Order name: Lipase; Complete Time: 00:04 05/10 23:01 Order name: Urine Microscopic Only; Complete Time: 00:04 cp 05/11 00:05 Interpretation: Normal except: UBACT >50; SQEPI 5-10. 05/10 23:01 Order name: Basic Metabolic Panel; Complete Time: 00:04 EDOK 05/10 23:13 Order name: Urine Dipstick-Ancillary; Complete Time: 00:04 EDOK 05/10 23:14 Order name: Urine --Ancillary (enter results); Complete Time: 00:04 mw2 05/10 23:32 Order name: Urine Culture EDOK 05/10 23:01 Order name: EKG; Complete Time: 23:01 cp 05/10 23:01 Order name: Cardiac monitoring; Complete Time: 23:05 cp 05/10 23:01 Order name: EKG - Nurse/Tech; Complete Time: 23:27 cp 05/10 23:01 Order name: IV Saline Lock; Complete Time: 23:05 cp 05/10 23:01 Order name: Labs collected and sent; Complete Time: 23:05 cp 05/10 23:01 Order name: O2 Per Protocol; Complete Time: 23:05 cp 05/10 23:01 Order name: O2 Sat Monitoring; Complete Time: 23:05 cp 05/10 23:01 Order name: Urine Dipstick-Ancillary (obtain specimen); Complete Time: 23:13 cp 05/10 23:01 Order name: Urine Test (obtain specimen); Complete Time: 23:13 cp 05/11 00:06 Order name: CT Chest For PE Angio cp 05/11 00:06 Order name: CT Abd/Pelvis - IV Contrast Only cp 05/11 02:03 Order name: PO challenge; Complete Time: 02:38 cp EC/20 23:30 Rate is 88 beats/min. Rhythm is regular. TX interval is normal. QRS interval is normal. cp T waves are Inverted in lead aVR. Interpreted by me. Reviewed by me. Administered Medications: 23:18 Drug: morphine 4 mg Route: IVP; Site: left antecubital; st1 23:18 Drug: NS 0.9% 1000 ml Route: IV; Rate: 1 bolus; Site: left antecubital; st1 23:18 Drug: Phenergan (promethazine) 12.5 mg Route: IVP; Site: left antecubital; st1 Disposition: 05/11 02:30 Chart complete. cp 05:11 Co-signature as Attending Physician, Darion Anthony MD. [email or web address] Disposition Summary: 05/11/21 02:19 Discharge Ordered Location: Home cp Problem: new cp Symptoms: have improved cp Condition: Stable cp Diagnosis - Abdominal pain, unspecified cp - Chest pain, unspecified cp Followup: cp - With: Private Physician - When: 2 - 3 days - Reason: Recheck today's complaints Discharge Instructions: - Discharge Summary Sheet cp - Abdominal Pain, Adult cp - Nonspecific Chest Pain, Adult cp Forms: - Medication Reconciliation Form cp - Thank You Letter cp - Antibiotic Education cp - Prescription Opioid Use cp Prescriptions: - Diclofenac Sodium 75 mg Oral Tablet Sustained Release - take 1 tablet by ORAL route 2 times per day; 30 tablet; Refills: 0, Product cp Selection Permitted - Macrobid 100 mg Oral Capsule - take 1 capsule by ORAL route every 12 hours for 7 days; 14 capsule; Refills: 0, cp Product Selection Permitted - promethazine 25 mg Oral Tablet - take 1 tablet by ORAL route every 6 hours As needed; 20 tablet; Refills: 0, cp Product Selection Permitted Signatures: Dispatcher [employer] EDOK Rustam Eden PA PA cp Darion Anthony MD MD 7 Chan Veras, RN RN as6 Teresa Lopez, RN RN st1 Corrections: (The following items were deleted from the chart) 05/12 00:30 05/10 23:15 This 35 yrs old Female presents to ER via Wheelchair with cp complaints of Chest Pain, Abdominal Pain, Dizziness. cp 05/12 01:37 05/10 23:10 Associated signs and symptoms: Pertinent positives: dizziness, Pertinent cp negatives: anorexia, constipation, diarrhea, dysuria, fever, hematuria, vaginal discharge, vomiting, cp 05/12 01:38 05/10 23:15 Abdomen/GI: Positive for abdominal pain, of the posterior aspect of left cp lateral abdomen and anterior aspect of left lateral abdomen, Negative for vomiting, diarrhea, constipation, cp
[2021-05-11 03:14] VITALS: TEMP 98.6
[2021-05-11 03:23] VITALS: BP 105/68; O2SAT 100
--- NOTE | 2021-05-11 08:33 | RAD REPORT ---
EXAM DESCRIPTION: Mariusz Single View05/10/2021 11:17 pm CLINICAL HISTORY: Chest pain COMPARISON: 2020 FINDINGS: The lungs appear clear of acute infiltrate. The heart is normal size IMPRESSION: No acute abnormalities displayed
--- NOTE | 2021-05-12 15:08 | RAD REPORT ---
EXAM DESCRIPTION: CT - Chest For Pe Angio - 05/11/2021 4:13 am CLINICAL HISTORY: CHEST PAIN COMPARISON: None. TECHNIQUE: CT CHEST ANGIOGRAPHY WITH IV CONTRAST on 05/11/2021 12:06 AM DRAWING HAND. MIPS reconstructions wer e generated. This exam was performed according to our departmental dose-optimization program, which includes autom ated exposure control, adjustment of the mA and/or kV according to patient size and/or use of iterati ve reconstruction technique. MIP images were generated. FINDINGS: Thoracic aorta is normal in course and caliber without aneurysm or dissection. Pulmonary a rteries are adequately opacified without acute or chronic filling defects. The heart is normal in size. There is no pericardial effusion. Intrathoracic lymph nodes are not enla rged. There is no pleural effusion, pleural thickening or pneumothorax. Central airways are patent. Lungs a re clear with no consolidation, mass or interstitial lung disease. There are no acute abnormalities within the limited images of the upper abdomen. There are no acute osseous findings. No suspicious bony lesions. IMPRESSION: No aortic dissection or aneurysm. No pulmonary embolus. No pneumonia. Electronically signed by: Florentino Causey MD 05/11/2021 1:18 AM DRAWING HAND Due to temporary technical issues with the PACS/Fluency reporting system, reports are being signed by the in house radiologists without review as a courtesy to insure prompt reporting. The interpreting radiologist is fully responsible for the content of the report.
--- NOTE | 2021-05-12 15:16 | EKG ---
Test Date: 2021-05-10 Test Time: 23:23:38 Rim Roller Setter: RANJIT MEASUREMENT RESULTS: Intervals: Rate: 88 PA: 144 QRSD: 84 QT: 366 QTc: 442 [place]: P: 61 PA: 144 QRS: 63 T: 56 INTERPRETIVE STATEMENTS: Normal sinus rhythm Normal ECG Compared to ECG 10/11/2020 13:53:47 No significant changes Electronically Signed On 05-12-21 15:14:48 PUBLICATIONS MANAGER by Bryant Dickerson
--- NOTE | 2021-05-12 15:39 | RAD REPORT ---
EXAM DESCRIPTION: CT - Abdomen Pelvis W Contrast - 05/11/2021 4:12 am CLINICAL HISTORY: ABD PAIN COMPARISON: None. TECHNIQUE: CT ABDOMEN PELVIS WITH IV CONTRAST on 05/11/2021 12:06 AM WHEELCHAIR VAN OPERATOR FIRST RESPONDER This exam was performed according to our departmental dose-optimization program, which includes autom ated exposure control, adjustment of the mA and/or kV according to patient size and/or use of iterati ve reconstruction technique. FINDINGS: Lower lungs are clear. Abdomen: The liver is normal in appearance. There is no biliary dilatation. The gallbladder is absent . The pancreas and spleen are normal in appearance. The adrenal glands and kidneys are unremarkable. Abdominal aorta is normal in course and caliber without aneurysm. There is no free air. There is no r etroperitoneal adenopathy. Pelvis: There is no bowel obstruction. Urinary bladder is unremarkable. There is moderate free pelvic fluid. Uterus is normal in size. Probable appendectomy was performed. Skeleton: There are no acute osseous findings. No suspicious bony lesions. IMPRESSION: No definite acute inflammatory process. Electronically signed by: Florentino Causey MD 05/11/2021 1:18 AM WHEELCHAIR VAN OPERATOR FIRST RESPONDER Due to temporary technical issues with the PACS/Fluency reporting system, reports are being signed by the in house radiologists without review as a courtesy to insure prompt reporting. The interpreting radiologist is fully responsible for the content of the report.
== END 2021-05-11 02:40 | disposition home or self-care (01) ==
LOC: ER 22:37
DX: R07.9 Chest pain, unspecified (principal); E03.9 Hypothyroidism, unspecified; Z88.1 Allergy status to other antibiotic agents; Z88.8 Allergy status to other drugs, medicaments and biological substances; Z91.040 Latex allergy status; Z91.048 Other nonmedicinal substance allergy status
CPT/HCPCS: 36415; 71045; 71275; 74177; 80048; 80076; 81003; 81015; 81025; 83690; 83735; 83880; 84484; 85025; 85610; 87086; 87088; 93005; 96374; 96375; 99285; J2550; J7030; Q9967

== ENCOUNTER 2021-05-15 17:41 | Emergency (ER) | payer BC, SELFPAY ==
--- OUTSIDE RECORDS SUMMARY | 2021-05-15 17:45 | XMS REPORT | Clinical Summary ---
:1985 Author Organization [facility] Toño [facility] Address [address] [place] [address] Care Team Providers Name Role Phone MD [...] lupus erythematosus, not otherwise specified (Primary Dx); MATH PROFESSOR Acute promyelocytic leukemia, in remissi on Nicki Staley PA 03/30/2021 Hospital Encounter Lab Jori Long, Acute pro myelocytic MATH PROFESSOR leukemia, in re mission 03/30/2021 Orders Only Leukemia Rebeka, Acute promyeloc ytic GERARD Caceres leukemia, in r emission (Primary Dx) 03/30/2021 Travel 03/30/2021 Orders Only Leukemia Jori Long, Acute promyeloc ytic MATH PROFESSOR leukemia, in re mission (Primary Dx) 07/29/2020 Orders Only Infectious Diseases Nisa, SARS-CoV -2 vaccination MD Geo after 05/15/2020 Immunizations Name Administration Dates Next Due Influenza [...] ts for this ANTIBODY SCREEN NEGATIVE AM HARVESTING CONTRACTOR pro cedure are in the results section. CLOT EXPIRATION DATE Routine 03/30/2021 11:04 Res ults for this AM HARVESTING CONTRACTOR procedure are i n the results section. HP T(15;17) PML-LEN Routine 03/30/2021 11:04 QUANTITATIVE PCR AM HARVESTING CONTRACTOR INTERPRETATION AND REPORT .GLOMERULAR FILTRATION Routine 03/30/2021 11:04 Acute promyelo cytic Results for this RATE AM HARVESTING CONTRACTOR leukemia, in procedure are i n remission the results section. SERUM CREATININE Routine 03/30/2021 11:04 Acute promyelocytic Results for this AM HARVESTING CONTRACTOR leukemia, in procedure are i n remission the results section. MANUAL DIFFERENTIAL STAT 03/30/2021 11:04 Acute promyelocyt ic Results for this AM HARVESTING CONTRACTOR leukemia, in procedure are i n remission the results section. Results CBC STAT 03/30/2021 11:04 Acute promyelocytic Resu lts for this AM HARVESTING CONTRACTOR leukemia, in procedure are i n remission the results section. ANTIBODY SCREEN Routine 03/30/2021 11:04 Acute promyelocytic R esults for this AM HARVESTING CONTRACTOR leukemia, in procedure are i n remission the results section. ABORH Routine 03/30/2021 11:04 Acute promyelocytic Resu lts for this AM HARVESTING CONTRACTOR leukemia, in procedure are i n remission the results section. HP T(15;17) PML-LEN Routine 03/30/2021 11:04 Acute promyel ocytic Results for this QUANTITATIVE PCR AM HARVESTING CONTRACTOR leukemia, in procedure a re in COLLECTION, BLOOD remission the result s section. MAGNESIUM LEVEL Routine 03/30/2021 11:04 Acute promyelocytic R esults for this AM HARVESTING CONTRACTOR leukemia, in procedure are i n remission the results section. ELECTROLYTE PANEL Routine 03/30/2021 11:04 Acute promyelocytic Results for this AM HARVESTING CONTRACTOR leukemia, in procedure are i n remission the results section. ALANINE AMINOTRANSFERASE Routine 03/30/2021 11:04 Acute promye locytic Results for this AM HARVESTING CONTRACTOR leukemia, in procedure are i n remission the results section. LACTATE DEHYDROGENASE Routine 03/30/2021 11:04 Acute promyeloc ytic Results for this AM HARVESTING CONTRACTOR leukemia, in procedure are i n remission the results section. ALKALINE PHOSPHATASE Routine 03/30/2021 11:04 Acute promyelocy tic Results for this AM HARVESTING CONTRACTOR leukemia, in procedure are i n remission the results section. FRACTIONATED BILIRUBIN Routine 03/30/2021 11:04 Acute promyelo cytic Results for this AM HARVESTING CONTRACTOR leukemia, in procedure are i n remission the results section. URIC ACID Routine 03/30/2021 11:04 Acute promyelocytic Resu lts for this AM HARVESTING CONTRACTOR leukemia, in procedure are i n remission the results section. SERUM CREATININE Routine 03/30/2021 11:04 Acute promyelocytic AM HARVESTING CONTRACTOR leukemia, in remission BLOOD UREA NITROGEN Routine 03/30/2021 11:04 Acute promyelocyt ic Results for this AM HARVESTING CONTRACTOR leukemia, in procedure are i n remission the results section. GLUCOSE, RANDOM Routine 03/30/2021 11:04 Acute promyelocytic R esults for this AM HARVESTING CONTRACTOR leukemia, in procedure are i n remission the results section. PHOSPHORUS LEVEL Routine 03/30/2021 11:04 Acute promyelocytic Results for this AM HARVESTING CONTRACTOR leukemia, in procedure are i n remission the results section. CALCIUM LEVEL TOTAL Routine 03/30/2021 11:04 Acute promyelocyt ic Results for this AM HARVESTING CONTRACTOR leukemia, in procedure are i n remission the results section. ALBUMIN LEVEL Routine 03/30/2021 11:04 Acute promyelocytic Res ults for this AM HARVESTING CONTRACTOR leukemia, in procedure are i n remission the results section. TOTAL PROTEIN Routine 03/30/2021 11:04 Acute promyelocytic Res ults for this AM HARVESTING CONTRACTOR leukemia, in procedure are i n remission the results section. COMPLETE BLOOD COUNT W/ Routine 03/30/2021 11:04 Acute promyel ocytic DIFFERENTIAL AM HARVESTING CONTRACTOR leukemia, in remission TYPE AND SCREEN Routine 03/30/2021 11:04 Acute promyelocytic AM HARVESTING CONTRACTOR leukemia, in remission after 05/15/2020 Results t(15;17) PML-LEN Quantitative PCR Collection, Blood (03/30/2021 11:04 AM HARVESTING CONTRACTOR) Pathologist Sig nature Molecular Diagnostics Yes [facility] CAN ER (Received) CENTER Specimen Blood Performing Organization Address City/[facility] Code Phon e Number [facility] Unless otherwise noted, [address] all lab tests performed by: Division of Pathology and Laboratory Medicine [place] [place] (ABNORMAL) Glucose, Random (03/30/2021 11:04 AM HARVESTING CONTRACTOR) Glucose Random 62 (L) 70 - 199 mg/dL [facility] Comment: CANCER CENTER Effective 11/15/15, the gluco se reference intervals have been updated based on [place] [employer] guidelines (Standards of Medical Care in Diabetes 2016. Diabetes Care 2016; 39: S13-S22). Fasting blood glucose: Normal: 70-99 mg/dL Impaired fasting glucose (in creased risk for diabetes or pre-diabetes): 100- 125 mg/dL Diabetes mellitus: >/=126 mg/dL Random blood glucose: Normal: 70-199 mg/dL Note: Random glucose >100 mg/dL is assoc iated with increased risk for diabetes Specimen Blood Narrative [facility] - 12:26 PM HARVESTING CONTRACTOR Schedule in Fast Track Performing Organization Address City/[facility]/ZIP Code Phon e Number [facility] CANCER Unless otherwise noted, [address] all lab tests performed by: Division of Pathology and Laboratory Medicine [address] .Serum Creatinine (03/30/2021 11:04 AM HARVESTING CONTRACTOR) Pathologist Sig nature Creatinine 0.95 0.51 - 0.95 mg/dL [facility] CANCER C ENTER Specimen Blood Narrative [facility] - 12:26 PM HARVESTING CONTRACTOR Schedule in Fast Track Performing Organization Address City/State/ZIP Code Phon e Number [facility] CANCER Unless otherwise noted, [place] [address] CENTER all lab tests performed by: Division of Pathology and Laboratory Medicine [address] (ABNORMAL) .CBC (03/30/2021 11:04 AM HARVESTING CONTRACTOR) WBC 9.4 4.0 - 11.0 [facility] K/uL DIAGNOSTIC CENTER RBC 4.53 4.00 - 5.50 [facility] M/uL DIAGNOSTIC CENTER Hgb 13.0 12.0 - 16.0 [facility] gm/dL DIAGNOSTIC CENTER Hct 40.0 37.0 - 47.0 % [facility] DIAGNOSTIC [place] MCV 88 82 - 98 fL [facility] DIAGNOSTIC [place] MCH 28.7 27.0 - 31.0 [facility] pg DIAGNOSTIC CENTER MCHC 32.5 31.0 - 36.0 [facility] gm/dL DIAGNOSTIC CENTER RDW-SD 40.1 35.1 - 46.3 [facility] fL DIAGNOSTIC CENTER RDW-CV 12.3 12.0 - 15.5 % [facility] Platelet count 252 140 - 440 [facility] K/uL DIAGNOSTIC CENTER MPV 12.2 (H) 4.0 - 10.4 fL [facility] DIAGNOSTIC [place] INRBC 0.0 <=0.0 % [facility] Comment: DIAGNOSTIC CENTER The INRBC (instrument NRBC) value reflects the enumera tion of nucleated red blood cells contained in a 200uL samp le of whole blood analyzed by the instrument. This value may differ from the NRBC value reported in a manual differ ential, which is based on a 100 cell differential. Specimen Blood Narrative [facility] - 03/30 11:28 AM HARVESTING CONTRACTOR Schedule in Fast Track Performing Organization Address City/State/ZIP Code Phon e Number [facility] DIAGNOSTIC Unless otherwise noted, [place] [address] CENTER all lab tests performed by: Division of Pathology and Laboratory Medicine Vince Lawtoncomlizandro Sapp Clot Expiration Date (03/30/2021 11:04 AM HARVESTING CONTRACTOR) Pathologist Sig nature T & S Expiration 04/02/2021 [facility] Specimen Blood Performing Organization Address City/State/ZIP Code Phon e Number [facility] CANCER Unless otherwise noted, [place] [address] CENTER all lab tests performed by: Division of Pathology and Laboratory Medicine [address] [place] Glomerular Filtration Rate (03/30/2021 11:04 AM HARVESTING CONTRACTOR) eGFR-AA 90 >=60 [facility] Comment: mL/min/1.73 [facility] Normal eGFR: >= 60 mL/min/1.73 m2 [...] 5 Kidney failure <15 eGFR-SARI 78 >=60 [facility] Comment: mL/min/1.73 [facility] Normal eGFR: >= 60 mL/min/1.73 m2 [...] 5 Kidney failure <15 Specimen Blood Narrative [facility] - 12:26 PM HARVESTING CONTRACTOR Schedule in Fast Track Performing Organization Address City/State/ZIP Code Phon e Number [facility] CANCER Unless otherwise noted, [place], [place] [id number] [place] [address] all lab tests performed by: Division of Pathology and Laboratory Medicine [facility]5 [place] Fractionated Bilirubin (03/30/2021 11:04 AM HARVESTING CONTRACTOR) Pathologist [facility] Bili Total 0.4 <=1.2 mg/dL [facility] Comment: [facility] Indocyanine Green (ICG) may cause falsely elevated bilirubin results. Total and direct bilirubin must not be measured from samples containing indocyanine green. False elevation of total bing irubin can be seen in patients with IgG concentrations above 28 g/L. Bili Direct <0.2Comment: <=0.3 mg/dL [facility] Indocyanine Green [facility] (ICG) may cause falsely elevated bilirubin results. Total and direct bilirubin must not be measured from samples containing indocyanine green. Bili Indirect See NoteComment: 0.0 - 0.9 [facility] Unable to calculate mg/dL [facility] Indirect Bilirubin result due to some parameters are outside reportable range Specimen Blood Performing Organization Address [facility] Phon e Number [facility] CANCER Unless otherwise noted, [address] all lab tests performed by: Division of Pathology and Laboratory Medicine Vince saucedo(15;17) PML-LEN Quantitative PCR Interpretation and Report (03/30/2021 11:04 AM HARVESTING CONTRACTOR) Specimen Narrative This result has an attachment that is no t available. TMP Interpretation Antibody Screen Negative (03/30/2021 11:04 AM HARVESTING CONTRACTOR) Pathologist [facility] TMP Auto Neg ABSC At the present time, hilda t plasma shows no evidence of RBC alloantibodies. [facility] Interp Comment: [facility] VALERIE FREDERICK, Dictated by: VALERIE FREDERICK, Dictated Date/Time: 03.30.20 20:35 PM HARVESTING CONTRACTOR Transcribed Date/Time: 03.30.2021 20:35 PM HARVESTING CONTRACTOR Electronically Signed By: VALERIE FREDERICK, on 03.21 20:35 PM Specimen Blood Performing Organization Address City/[facility] Phon e Number [facility] Unless otherwise noted, [address] all lab tests performed by: Division of Pathology and Laboratory Medicine Vince Van (03/30/2021 11:04 AM HARVESTING CONTRACTOR) Pathologist Sig nature ABORh. A POS [facility] CANCER [place] Specimen Blood Performing Organization Address City/State/ZIP Code Phon e Number [facility] CANCER Unless otherwise noted, [place] [address] [place] all lab tests performed by: Division of Pathology and Laboratory Medicine [address] (ABNORMAL) Differential (03/30/2021 11:04 AM HARVESTING CONTRACTOR) Neutrophil % 75.3 (H) 42.0 - 66.0 % [facility] DIAGNOSTIC [place] Lymphocyte % 16.8 (L) 24.0 - 44.0 % [facility] Monocyte % 6.3 2.0 - 7.0 % [facility] Eosinophil % 0.8 (L) 1.0 - 4.0 % [facility] DIAGNOSTIC [place] Basophil % 0.5 0.0 - 1.0 % [facility] IGRE % 0.3Comment: IGRE 0.0 - 0.4 % [facility] % count includes DIAGNOSTIC CENTER Metamyelocytes, Myelocytes, and Promyelocytes. Neutrophil Abs 7.10 1.70 - 7.30 [facility] K/ DIAGNOSTIC CENTER Lymphocyte Abs 1.59 1.00 - 4.80 [facility] K/ DIAGNOSTIC [place] Monocyte Abs 0.59 0.08 - 0.70 [facility] DIAGNOSTIC [place] Eosinophil Abs 0.08 0.04 - 0.40 [facility] DIAGNOSTIC [place] Basophil Abs 0.05 0.00 - 0.10 [facility] DIAGNOSTIC [place] IG Abs 0.03 0.00 - 0.04 [facility] DIAGNOSTIC [place] Specimen Blood Narrative [facility] - 03/30 11:28 AM HARVESTING CONTRACTOR Schedule in Fast Track Performing Organization Address City/State/ZIP Code Phon e Number [facility] DIAGNOSTIC Unless otherwise noted, [place] [address] [place] all lab tests performed by: Division of Pathology and Laboratory Medicine [address] Antibody Screen (03/30/2021 11:04 AM HARVESTING CONTRACTOR) Pathologist Sig nature ABSC. Negative ABSC [facility] CANCER CENTE R Specimen Blood Performing Organization Address City/State/ZIP Code Phon e Number [facility] CANCER Unless otherwise noted, [place] all lab tests performed by: Division of Pathology and Laboratory Medicine [address] Uric Acid (03/30/2021 11:04 AM HARVESTING CONTRACTOR) Pathologist Sig nature Uric Acid 3.4 2.4 - 5.7 mg/dL [facility] TER Specimen Blood Narrative [facility] - 12:26 PM HARVESTING CONTRACTOR Schedule in Fast Track Performing Organization Address City/[facility]/ZIP [facility] Phon e Number [facility] Unless otherwise noted, [address] all lab tests performed by: Division of Pathology and Laboratory Medicine [address] BUN (03/30/2021 11:04 AM HARVESTING CONTRACTOR) Pathologist Sig nature BUN 12 6 - 23 mg/dL [facility] Specimen Blood Performing Organization Address [facility] Phon e Number [facility] CANCER Unless otherwise noted, [address] all lab tests performed by: Division of Pathology and Laboratory Medicine [address] Alanine Aminotransferase (03/30/2021 11:04 AM HARVESTING CONTRACTOR) Pathologist Sig nature ALT 17 <=33 U/L [facility] Specimen Blood Narrative [facility] - 12:26 PM HARVESTING CONTRACTOR Schedule in Fast Track Performing Organization Address [facility] Phon e Number [facility] CANCER Unless otherwise noted, [address] all lab tests performed by: Division of Pathology and Laboratory Medicine [address] Total Protein (03/30/2021 11:04 AM HARVESTING CONTRACTOR) Pathologist Sig nature Total Protein 6.8 6.4 - 8.3 g/dL [facility] [address] Specimen Blood Narrative [facility] - 12:26 PM HARVESTING CONTRACTOR Schedule in Fast Track Performing Organization Address City/[facility]/ZIP [facility] Phon e Number [facility] CANCER Unless otherwise noted, [address] all lab tests performed by: Division of Pathology and Laboratory Medicine [address] [place] Phosphorus Level (03/30/2021 11:04 AM HARVESTING CONTRACTOR) Pathologist Sig nature Phosphorus 3.8 2.5 - 4.5 mg/dL [facility] [address] Specimen Blood Narrative [facility] - 12:26 PM HARVESTING CONTRACTOR Schedule in Fast Track Performing Organization Address City/[facility]/ZIP [facility] Phon e Number [facility] CANCER Unless otherwise noted, [address] all lab tests performed by: Division of Pathology and Laboratory Medicine [address] Alkaline Phosphatase (03/30/2021 11:04 AM HARVESTING CONTRACTOR) Pathologist Sig nature Alk Phos 69 35 - 104 U/L [facility] Specimen Blood Narrative [facility] - 12:26 PM HARVESTING CONTRACTOR Schedule in Fast Track Performing Organization Address [facility] Phon e Number [facility] CANCER Unless otherwise noted, [address] all lab tests performed by: Division of Pathology and Laboratory Medicine [address] Magnesium Level (03/30/2021 11:04 AM HARVESTING CONTRACTOR) Pathologist Sig nature Magnesium 2.2 1.6 - 2.6 mg/dL [facility] Specimen Blood Narrative [facility] - 12:26 PM HARVESTING CONTRACTOR Schedule in Fast Track Performing Organization Address [facility] Phon e Number [facility] CANCER Unless otherwise noted, [address] all lab tests performed by: Division of Pathology and Laboratory Medicine [address] LDH (03/30/2021 11:04 AM HARVESTING CONTRACTOR) LDH 162Comment: Results 135 - 214 U/L [facility] greater than 1651 U/L [facility] may not be reliable due to matrix effect with extended dilution as it exceeds the senior consultant s recommended limit. Caution should be exercised when interpreting such values and done in conjunction with clinical context. Specimen Blood Narrative [facility] - 12:26 PM HARVESTING CONTRACTOR Schedule in Fast Track Performing Organization Address [facility] Phon e Number [facility] CANCER Unless otherwise noted, [address] all lab tests performed by: Division of Pathology and Laboratory Medicine [address] Calcium Level (03/30/2021 11:04 AM HARVESTING CONTRACTOR) Pathologist Sig nature Calcium Lvl 8.8 8.4 - 10.2 mg/dL [facility] CE NTER Specimen Blood Narrative [facility] - 12/10/202 1 12:26 PM HARVESTING CONTRACTOR Schedule in Fast Track Performing Organization Address City/[facility]/ZIP Code Phon e Number [facility] CANCER Unless otherwise noted, [address] all lab tests performed by: Division of Pathology and Laboratory Medicine [facility] [place] Albumin Level (03/30/2021 11:04 AM HARVESTING CONTRACTOR) Pathologist Sig nature Albumin Lvl 4.5 3.5 - 5.2 gm/dL [facility] TER Specimen Blood Narrative [facility] - 1 12:26 PM HARVESTING CONTRACTOR Schedule in Fast Track Performing Organization Address City/[facility]/ZIP Code Phon e Number [facility] CANCER Unless otherwise noted, [address] all lab tests performed by: Division of Pathology and Laboratory Medicine [address] [place] [address] [place] Electrolyte Panel (03/30/2021 11:04 AM HARVESTING CONTRACTOR) Pathologist Sig nature Sodium Lvl 141 136 - 145 mEq/L [facility] Potassium Lvl 4.0 3.5 - 5.1 mEq/L [facility] Chloride 104 98 - 107 mEq/L [facility] CO2 27 22 - 29 mEq/L [facility] Anion Gap 10 4 - 14 mEq/L [facility] Specimen Blood Narrative [facility] - 1 12:26 PM HARVESTING CONTRACTOR Schedule in Fast Track Performing Organization Address City/[facility]/ZIP [facility] Phon e Number [facility] CANCER Unless otherwise noted, [address] all lab tests performed by: Division of Pathology and Laboratory Medicine [address] [place] [address] [place] after 05/15/2020 Care Teams Clinical Safety Manager Relationship Specialty Start Date End Date Marck Greenberg MD PCP - General 06/21/[address] [place] [phone] Jag Schmidt MD Physician 06/28/[address] [place] [address] [phone] Niharika Peraza MD Physician 06/28/[address] [place] [phone] Anita Yancey MD Physician 06/28/15 [address] [place] [address] Fab Pena MD Physician 06/28/15 [address] [place] [address] Juan Hammonds MD Physician 06/28/15 Gurpreet Hernandez MD Physician 06/28/15 Heydi Dunlap PA Physician Mortgage Loan Processing Clerk 06/28/[address] [place] [address] [phone] Patsy Etienne PA Physician Mortgage Loan Processing Clerk 06/28/[address] [place] [phone] oTpher Johnson FNP Nurse Practitioner 06/28/15 Kori Allison, John Precision Assembler Bench 06/28/[address] [place] [address] [address] [place] [address] Michael Flowers MD Physician 06/28/[address] [place] [phone] Maddy Winchester MATH PROFESSOR Nurse Practitioner 06/28/15 Pedro Luis Meza MD Physician 06/28/15 [address] [facility] [address] [place] [address] Yuli Milligan, XOCHITL Nurse Practitioner 06/28/[address] [place] [address] [phone] Kathi Lorenzo MD Physician 06/28/[address] [place] [phone] Adria Alfaro MD Physician 06/28/[address] [place] [id number] Marck Greenberg MD Physician 06/28/[address] [place] [phone] Nina Graham MATH PROFESSOR Nurse Practitioner 06/28/[address] [place] [address] [phone] Rin Wren, XOCHITL Nurse Practitioner 06/28/[address] [place] [address] [phone] Suly Ochoa, GERARD Physician Mortgage Loan Processing Clerk 06/28/[address] [place] [phone] Lee العلي, XOCHITL Nurse Practitioner 06/28/[address] [place] [phone] Christianne Chaidez MD Physician 06/28/[address] [place] [address] [phone] Tommie Yanez PA Physician Mortgage Loan Processing Clerk 06/28/[address] [place] [address]. [place] [address] Marie Jung PA Physician Mortgage Loan Processing Clerk 06/28/[address] [place] [address] [phone] Alexandra Villegas, XOCIHTL Nurse Practitioner 06/28/[address] [place] [address] [phone] Graeme Damico MD Physician 06/28/[address] [place] [place] [id number] Chico Damico MD Physician 06/28/[address] [place] [id number] Kristy Florez MD Physician 06/28/[address] [place] [address] [id number] Sony Rich MD Physician 06/28/[address] [place] [address] [id number] Sony Watson MD Physician 06/28/[address] [place] [address] [id number] Santino Alvarenga MD Physician 06/28/[address] [place] [id number] Aurora Busby MD Physician 06/28/[address] [place] [address] [id number] Domenic Gordon MD Physician 06/28/15 Otis Busby MD Physician 06/28/[address] [place] [id number]
--- OUTSIDE RECORDS SUMMARY | 2021-05-15 17:49 | XMS REPORT | Continuity of Care Document ---
:1985 Author Organization [facility] t Address [address] [place] [address] Care Team Providers Name Role Phone [phone] Primary Care Physician Unavailable ETHAN Attending Clinician [...] Clinician Alhaji HAMILTON, Yamil Attending Clinician Anival [facility] Attending Clinician Unavailable Lyndsay HAMILTON Attending Clinician Nasreen HAMILTON Attending Clinician Eulalio HAMILTON, Ashok Attending Clinician Tung HAMILTON, Jae Attending Clinician Marichuy HAMILTON Attending Clinician Erica HAMILTON, Toni Attending Clinician Barber Attending Clinician Unavailable Paola HAMILTON, Janice Attending Clinician Edwin HAMILTON Attending Clinician Varsha HAMILTON, [facility] Attending Clinician Ricky HOBSON Attending Clinician Unavailable NASREEN Admitting Clinician Unavailable MARICHUY Admitting Clinician Unavailable EDWIN Admitting Clinician Unavailable Payers Payer Name Policy Type Policy Number Effective Date Expiration Date Frances LARA II [id number] 2020 00:00:00 [place] POS [id number] 2018 00:00:00 Problems Condition Condition Condition Status [...] Active 2020-12-03 M emoria (disorder) 21:41:00 l [place] Hemiplegia (disorder) Active Problem 12/03/2020 [facility] [...] rs active active ity of problems problems [facility] Allergies, Adverse Reactions, Alerts Allergy Allergy Status Severity Reaction(s) Onset Inactive Treating Comm ents Source Name Type Date Date Clinician CEPHALEX DRUG Active High Hives Univers IN INGREDI 8-15 ity of 00:00: 00 Medical Branch ONDANSET DRUG Active High Other-Cmnt Univ ers CLEO HCL INGREDI 8-15 ity of 00:00: [place] 00 Medical Branch Cephalex Drug Active Hives Univers in Allergy 815 ity of 00:00: 00 Medical Branch Ondanset Drug Active Other - See migraines Univers cleo Hcl Allergy comments 815 ity of 00:00: [place] 00 Medical Branch Zofran Propensi Active Other (See Bayl or Odt ty to Comments) 7-09 [place] adverse 00:00: of reaction 00 Medicin s to e drug Ferumoxy Propensi Active Anaphylaxis B aylor gilberto ty to 6-15 [place] adverse 00:00: of reaction 00 Medicin s to e drug FERUMOXY DRUG Active Anaphylaxis Uni vers GILBERTO INGREDI 4-26 ity of 00:00: [place] 00 Medical Branch Ferumoxy Propensi Active Anaphylaxis [...] given. Gadobutr Propensi Active Other (See Vomiting1 [facility] ol ty to Comments) 06-12 Colleg e [...] prior to MRI Latex Propensi Active Swelling [facility] ty to 06-12 [place] adverse 00:00: of reaction 00 Medicin s to e substanc e GADOBUTR DRUG Active High Other-Cmnt Univ ers OL INGREDI 06-12 ity of 00:00: [place] 00 [facility] Branch CEFPODOX DRUG Active Med Hives Univers NANNETTE INGREDI 06-12 ity of 00:00: Medical Branch Cefpodox Drug Active Hives Univers nannette Allergy 06-12 ity of 00:00: [place] 00 [facility] Branch Gadobutr Drug Active Other - [...] LATEX DRUG Active High Rash Univers INGREDI 3- ity of 00:00: [address] Latex Drug Active Swelling Univers Allergy 07-03 ity of 00:00: [address] Zofran Zofran Active Memoria l [place] Feraheme Feraheme Active Memori a l [place] Cephalex Adverse Active Info Not [facility] in Reaction Available [facility] Zofran Adverse Active Info Not [facility] Reaction Available [facility] Memoria [facility] NO KNOWN Drug Active Univers ALLERGIE Class ity of S [facility] cephalex cephalex Active Memori a in in l [place] Latex Latex Active Memoria l [place] Gadavist Gadavist Active Memori a l [place] Family History Family Member Diagnosis Comments Start Date Stop Date Source Paternal grandfather Kidney cancer M Alyssa Timothy Social History Social Habit Start Date Stop Date Quantity Comments Source Exposure to Not sure [facility]-CoV-2 [facility] (event) Branch Alcohol intake 2020-10-27 2020-10-27 Current drinker of [facility] of 00:00:00 00:00:00 alcohol (finding) Medicin e Tobacco use and 2020-02-21 2020-02-21 Never used [facility] llege of exposure 00:00:00 00:00:00 Medicine Alcohol Comment 2020-02-21 2020-02-21 occasionally [facility] of 00:00:00 00:00:00 Medicine Social History 2018-10-01 2018-10-01 [facility] crystal 13:53:53 13:53:53 Sex Ass[birth year] At [birth year] MD Charles on 00:00:00 00:00:00 Smoking Status Start Date Stop Date Source Never smoker [facility] [place] [facility] Medications Ordered Filled Start Stop Current Ordering Indication Dosage Frequency Signature Comments Components Source Medication Medication Date Date Medication? Clinician (SIG) Name Name brannon 2020-04 Yes [id number] 5mL Take 5 mL Univers mine-pseudo 05-16 by mouth 4 it y of ephedrine-D 00:00: ([place] (BROMFED 00 times Medical DM) 2-30-10 daily as Bran ch mg/5 mL needed for syrup Congestion /Allergies or Cough. hydrOXYchlo 2020-04 Yes 200mg Take 200 U nivers roQUINE 200 0-12 mg by ity of mg tablet 00:00: mouth 2 (two) Medical times [place] daily. hydrOXYchlo 2020-04 Yes 200mg Take 200 U nivers roQUINE 200 0-12 mg by ity of mg tablet 00:00: mouth 2 (two) [facility] daily. ELIQUIS 5 Yes Univers mg tablet -17 ity of 00:00: 00 Medical Branch ELIQUIS 5 Yes Univers mg tablet 9-17 ity of 00:00: 00 [facility] Branch VYVANSE 50 Yes 50mg Take 50 mg U nivers mg capsule 9-13 by mouth ity o f 00:00: every 00 morning. Medical Branch VYVANSE 50 Yes 50mg Take 50 mg U nivers mg capsule 9-13 by mouth ity o f 00:00: every [place] 00 morning. Medical Branch levothyroxi Yes TAKE 1 Univ ers ne 75 mcg 9-10 TABLET BY ity o f tablet 00:00: MOUTH [place] 00 EVERY DAY Medical IN THE Branch MORNING ON AN EMPTY STOMACH levothyroxi Yes TAKE 1 Univ ers ne 75 mcg 9-10 TABLET BY ity o f tablet 00:00: MOUTH [place] 00 EVERY DAY Medical IN THE Branch MORNING ON AN EMPTY STOMACH morpHINE 2020- No 4mg 4 mg, Slow Un pau injection 4 12-05 IV Push, ity of mg 02:30: 01:45 ONCE, 1 [place] 00 :00 dose, Mon Medical 12/04/20 at [place] 2130, STAT proMETHazin 2020- No 25mg 25 mg, IV Univers e 12-05 Piggyback, ity of (PHENERGAN) 02:30: 02:30 [place] 25 [place] in 00 :00 dose, Mon Medica l NaCl 0.9% 12/04/20 at [facility] ch (NS) 50 mL 2130, 50 piggyback mL NaCl 0.9% 2020- No 500mL at 999 Univ ers (NS) bolus 12-05 mL/hr, 500 it y of infusion 02:30: 04:34 mL, IV [place] 500 mL 00 :00 Piggyback, Medical ONCE, 1 Branch dose, 12/04/20 at 2130, STAT iopamidol 2020- No [id number] 120mL 120 mL, Univers (ISOVUE 12-05 Intravenou ity o f 370-500 mL) 02:02: 02:05 s, ONCE, 1 [place] injection 00 :00 dose, Mon Medic al 120 mL 12/04/20 at [place] 2115, Routine proMETHazin 2020- No [id number] 25mg Univers e 12-04 ity of (PHENERGAN) 01:00: 01:03 [place] injection 00 :00 Medical 25 mg Branch proMETHazin 0 2020- No [id number] 25mg 25 mg, Univers e 12-04 Intramuscu ity of (PHENERGAN) 01:00: 01:03 lar, ONCE, [place] injection 00 :00 1 dose, Medical 25 mg [facility] 12/03/20 at 1999, Routine proMETHazin 2020- No [id number] 25mg Univers e 12-04 ity of (PHENERGAN) 01:00: 01:03 [place] injection 00 :00 Medical 25 mg Branch proMETHazin 2020- No [id number] 25mg 25 mg, Univers e 12-04 Intramuscu ity of (PHENERGAN) 01:00: 01:03 lar, ONCE, [place] injection 00 :00 1 dose, Medical 25 mg [facility] 12/03/20 at 1999, Routine Bacillus Yes [facility] Coagulans-I 7 [facility] 11:49: of (ALIGN 52 Medicin [...] 180 cap, 2 Release Refill(s), [id number], 167.64, cm, 10/12/20 14:33:00 CDT, Height, 86.818, kg, 10/12/20 14:33:00 CDT, Weight 24 HR Yes 400 mg = 2 Memori a topiramate 6-24 cap, PO, l 200 MG 20:06: Bedtime, # Rupal nn Extended 00 180 cap, 2 Release Refill(s), Capsule Pharmacy: [[facility] #[id number], 167.64, cm, 10/12/20 14:33:00 CDT, Height, 86.818, kg, 10/12/20 14:33:00 CDT, Weight 24 HR Yes 400 mg = 2 Memori a topiramate 6-24 cap, PO, l 200 MG 20:06: Bedtime, # Rupal nn Extended 00 180 cap, 2 Release Refill(s), [facility]ule [facility][id number], 167.64, cm, 10/12/20 14:33:00 CDT, Height, 86.818, kg, 10/12/20 14:33:00 CDT, Weight 24 HR Yes 400 mg = 2 Memori a topiramate 6-24 cap, PO, l 200 MG 20:06: Bedtime, # Rupal nn Extended 00 180 cap, 2 Release Refill(s), [id number], 167.64, cm, 10/12/20 14:33:00 CDT, Height, 86.818, kg, 10/12/20 14:33:00 CDT, Weight 24 HR Yes 400 mg = 2 Memori a topiramate 6-24 cap, PO, l 200 MG 20:06: Bedtime, # Rupal nn Extended 00 180 cap, 2 Release Refill(s), [id number], 167.64, cm, 10/12/20 14:33:00 CDT, Height, 86.818, kg, 10/12/20 14:33:00 CDT, Weight omeprazole 2020-0 Yes TAKE ONE Mem oria 40 mg oral 6-24 CAPSULE BY l delayed 19:42: MOUTH [place] release 00 EVERY capsule MORNING mesalamine 0 Yes TAKE 2 Memor ia 500 MG 6-24 CAPSULES l Extended 19:42: BY MOUTH Rupal nn Release 00 TWICE Capsule DAILY [Pentasa] omeprazole 2020-0 Yes TAKE ONE Mem oria 40 mg oral 6-24 CAPSULE BY l delayed 19:42: MOUTH [place] release 00 EVERY capsule MORNING mesalamine 2020-0 Yes TAKE 2 Memor ia 500 MG 6-24 CAPSULES l Extended 19:42: BY MOUTH Rupal nn Release 00 TWICE Capsule DAILY [Pentasa] omeprazole 2020-0 Yes TAKE ONE Mem oria 40 mg oral 6-24 CAPSULE BY l delayed 19:42: MOUTH [place] release 00 EVERY capsule MORNING mesalamine 2020-0 Yes TAKE 2 Memor ia 500 MG 6-24 CAPSULES l Extended 19:42: BY MOUTH Rupal nn Release 00 TWICE Capsule DAILY [Pentasa] omeprazole 2021-0 Yes TAKE ONE Mem oria 40 mg oral 6-24 CAPSULE BY l delayed 19:42: MOUTH [place] release 00 EVERY capsule MORNING mesalamine Yes TAKE 2 Memor ia 500 MG 6-24 CAPSULES l Extended 19:42: BY MOUTH Rupal nn Release 00 TWICE Capsule DAILY [Pentasa] omeprazole Yes TAKE ONE Mem oria 40 mg oral 6-24 CAPSULE BY l delayed 19:42: MOUTH [place] release 00 EVERY capsule MORNING mesalamine Yes TAKE 2 Memor ia 500 MG 6-24 CAPSULES l Extended 19:42: BY MOUTH Rupal nn Release 00 TWICE Capsule DAILY [Pentasa] Famotidine No 0 Memoria 40 MG Oral 6-24 Refill(s) l Tablet 19:41: [place] 00 linaclotide Yes 145 Memori a 0.145 MG 6-24 microgram l Oral 19:41: = 1 cap, [place] Capsule 00 PO, Daily, [Linzess] 30 minutes prior to the first meal of the day, # 30 cap, 0 Refill(s) Famotidine 0 No 0 Memoria 40 MG Oral 6-24 Refill(s) l Tablet 19:41: [place] 00 linaclotide Yes 145 Memori a 0.145 MG 6-24 microgram l Oral 19:41: = 1 cap, [place] Capsule 00 PO, Daily, [Linzess] 30 minutes prior to the first meal of the day, # 30 cap, 0 Refill(s) Famotidine 0 No 0 Memoria 40 MG Oral 6-24 Refill(s) l Tablet 19:41: [place] 00 linaclotide 2020-0 Yes 145 Memori a 0.145 MG 6-24 microgram l Oral 19:41: = 1 cap, [place] Capsule 00 PO, Daily, [Linzess] 30 minutes prior to the first meal of the day, # 30 cap, 0 Refill(s) Famotidine 2020-0 No 0 Memoria 40 MG Oral 6-24 Refill(s) l Tablet 19:41: [place] 00 linaclotide 2020-0 Yes 145 Memori a 0.145 MG 6-24 microgram l Oral 19:41: = 1 cap, [place] Capsule 00 PO, Daily, [Linzess] 30 minutes [...] # 30 cap, 0 Refill(s) hydroxychlo Yes [id number] 200mg Take 1 [facility] roquine 5-28 Tablet by [place] (PLAQUINIL) 00:00: mouth two o f 200 MG 00 times Medicin tablet daily. 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, Height, 87.273, kg, 08/29/20 16:36:00 CDT, Weight 24 HR 2021-0 Yes 200 mg = 1 Memori a topiramate 5-11 cap, PO, l 200 MG 21:45: Daily, # [place] Extended 00 90 cap, 2 Release Refill(s), Capsule Pharmacy: [[facility]] [employer] [facility], 167.64, cm, 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/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, Height, 87.273, kg, 08/29/20 16:36:00 CDT, Weight 24 HR 2020-0 Yes 200 mg = 1 Memori a topiramate 5-11 cap, PO, l 200 MG 21:45: Daily, # [place] Extended 00 90 cap, 2 Release Refill(s), Capsule Pharmacy: [[facility]] [facility], 167.64, cm, 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/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, Height, 87.273, kg, 08/29/20 16:36:00 CDT, Weight 24 HR 2020-0 Yes 200 mg = 1 Memori a topiramate 5-11 cap, PO, l 200 MG 21:45: Daily, # [place] Extended 00 90 cap, 2 Release Refill(s), Capsule Pharmacy: [[facility]] [facility], 167.64, cm, 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/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, Height, 87.273, kg, 08/29/20 16:36:00 CDT, Weight apixaban 5 2020-0 Yes 5 mg, PO, Me moria MG Oral 5-11 Q12H, # 60 l Tablet 21:43: tab, 0 [place] [Eliquis] 00 Refill(s), Pharmacy: [facility], 167.64, cm, 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/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, Height, 87.273, kg, 08/29/20 16:36:00 CDT, Weight apixaban 5 1-0 Yes 5 mg, PO, Me moria MG Oral 5-11 Q12H, # 60 l Tablet 21:43: tab, 0 [place] [Eliquis] 00 Refill(s), Pharmacy: [facility], 167.64, cm, 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/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, Height, 87.273, kg, 08/29/20 16:36:00 CDT, Weight apixaban 5 2021-0 Yes 5 mg, PO, Me moria MG Oral 5-11 Q12H, # 60 l Tablet 21:43: tab, 0 [place] [Eliquis] 00 Refill(s), Pharmacy: [facility], 167.64, cm, 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/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, Height, 87.273, kg, 08/29/20 16:36:00 CDT, Weight apixaban 5 2020-0 Yes 5 mg, PO, Me moria MG Oral 5-11 Q12H, # 60 l Tablet 21:43: tab, 0 [place] [Eliquis] 00 Refill(s), Pharmacy: [facility], 167.64, cm, 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/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, Height, 87.273, kg, 08/29/20 16:36:00 CDT, Weight apixaban 5 2020-0 Yes 5 mg, PO, Me moria MG Oral 5-11 Q12H, # 60 l Tablet 21:43: tab, 0 [place] [Eliquis] 00 Refill(s), Pharmacy: [facility], 167.64, cm, 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/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, Height, 87.273, kg, 08/29/20 16:36:00 CDT, Weight [...] 30 tab, 0 Refill(s) linaCLOtide 0 Yes [facility] (LINZESS) 4-30 [place] 145 MCG 00:00: of CAPS Medicin e linaCLOtide 2020-0 Yes [facility] (LINZESS) 4-30 [place] 145 MCG 00:00: of CAPS Medicin e Mesalamine 0 Yes [facility] (PENTASA) 4-28 [place] 500 MG CPCR 00:00: of Medicin e Mesalamine 2020-0 Yes [facility] (PENTASA) 4-28 [place] 500 MG CPCR 00:00: of Medicin e ELIQUIS 5 2020-0 Yes [facility] MG TABS 4-22 [place] 00:00: of 00 Medicin e ELIQUIS 5 2020-0 Yes Arya MG TABS 4-22 [place] 00:00: of Medicin e levothyroxi 0 Yes TAKE 1 [facility]l or ne 4-07 TABLET BY [place] (SYNTHROID) 00:00: MOUTH of 50 MCG 00 EVERY DAY Medicin tablet IN THE e MORNING ON AN EMPTY STOMACH levothyroxi 2020-0 Yes TAKE 1 Bayl or ne 4-07 TABLET BY [place] (SYNTHROID) 00:00: MOUTH of 50 MCG 00 EVERY DAY Medicin tablet IN THE e MORNING ON AN EMPTY STOMACH TROKENDI XR 2020-0 Yes 200mg 200 mg. Ba ylor 100 MG 24 3-16 [place] 00:00: of 00 Medicin e TROKENDI XR 2020-0 Yes 400mg 400 mg. Ba ylor 100 MG CP24 3-16 [place] 00:00: of 00 Medicin e topiramate 2020-0 Yes 400mg 400 mg. Uni vers (TROKENDI 3-16 ity of XR) 100 mg 00:00: [place] [address] Medical Branch topiramate 2020-0 Yes 400mg 400 mg. 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, Height, 104.545, kg, 04/19/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, Weight 24 HR 2019-04 Yes 100 mg = 1 Memori a topiramate 2-30 cap, PO, l 100 MG 21:09: Bedtime, # Rupal nn Extended 00 90 cap, 2 Release Refill(s), Capsule Pharmacy: [[facility] #[id number], 167.64, cm, 04/19/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, Height, 104.545, kg, 04/19/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, Weight 24 HR 2019-04 Yes 100 mg = 1 Memori a topiramate 2-30 cap, PO, l 100 MG 21:09: Bedtime, # [place]upal nn Extended 00 90 cap, 2 Release Refill(s), Capsule Pharmacy: [[facility] #[id number], 167.64, cm, 04/19/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, Height, 104.545, kg, 04/19/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, Weight 24 HR 2019-04 Yes 100 mg = 1 Memori a topiramate 2-30 cap, PO, l 100 MG 21:09: Bedtime, # Rupal nn Extended 00 90 cap, 2 Release Refill(s), Capsule Pharmacy: [[facility] #[id number], 167.64, cm, 04/19/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 l esomeprazol 2019-04 Yes [facility] e (NEXIUM) 0-30 College 40 MG 00:00: of capsule 00 Medicin e esomeprazol 2019-04 Yes Arya e (NEXIUM) 0-30 College 40 MG 00:00: of capsule 00 Medicin e esomeprazol 2019-04 Yes Univer s e 40 mg 0-30 ity of capsule 00:00: [address] esomeprazol 2019-04 Yes Univer s e 40 mg 0-30 ity of capsule 00:00: [address] omeprazole 2019-04- No 20mg QD Take 1 Meth tanvi OTC 0-28 11-28 tablet (20 st (PriLOSEC 00:00: 05:59 mg total) Ho spita OTC) 20 MG 00 :00 by mouth l EC tablet daily for 30 days. metoclopram 2019-04- No 5mg [id number] Take 1 Methodi dung 0-28 11-03 [id number] tablet (5 st (Reglan) 5 00:00: 05:59 [...] ONCE A e DAY. metoclopram 2019-04 Yes [facility] dung 0-21 College (REGLAN) 10 00:00: of [...] - per patient) metoclopram 2019-04- No 5mg [id number] Take 1 Methodi dung 0-20 02-15 [id number] tablet (5 st (Reglan) 5 00:00: 00:00 [...] Ricardo [Trileptal] 19 tab, 3 Refill(s), Pharmacy: [facility] #[id number] oxcarbazepi 2018- Yes 300 mg = 1 Memoria ne 300 MG 9-06 tab, PO, l Oral Tablet 16:04: BID, # 180 [place] [Trileptal] 19 tab, 3 Refill(s), Pharmacy: [facility] #[id number] oxcarbazepi 2018- Yes 300 mg = 1 Memoria ne 300 MG 9-06 tab, PO, l Oral Tablet 16:04: BID, # 180 [place] [Trileptal] 19 tab, 3 Refill(s), Pharmacy: [facility] #[id number] oxcarbazepi 2019-0 Yes 300 mg = 1 Memoria ne 300 MG 9-06 tab, PO, l Oral Tablet 16:04: BID, # 180 [place] [Trileptal] 19 tab, 3 Refill(s), Pharmacy: [facility] #[id number] oxcarbazepi 2019-0 Yes 300 mg = 1 Memoria ne 300 MG 9-06 tab, PO, l Oral Tablet 16:04: BID, # 180 [place] [Trileptal] 19 tab, 3 Refill(s), Pharmacy: [facility] #[id number] HR 2018-0 Yes 100 mg = 1 Memori a topiramate 9-06 cap, PO, l 100 MG 16:04: Daily, # [place] Extended 10 90 cap, 3 Release Refill(s), Capsule Pharmacy: [[facility] #[id number] HR 2018-0 Yes 100 mg = 1 Memori a topiramate 9-06 cap, PO, l 100 MG 16:04: Daily, # [place] Extended 10 90 cap, 3 Release Refill(s), Capsule Pharmacy: [[facility] #[id number] HR 2018-0 Yes 100 mg = 1 Memori a topiramate 9-06 cap, PO, l 100 MG 16:04: Daily, # [place] Extended 10 90 cap, 3 Release Refill(s), Capsule Pharmacy: [[facility] #[id number] HR 2019-0 Yes 100 mg = 1 Memori a topiramate 9-06 cap, PO, l 100 MG 16:04: Daily, # [place] Extended 10 90 cap, 3 Release Refill(s), Capsule Pharmacy: [[facility] #[id number] HR 2018-0 Yes 100 mg = 1 Memori a topiramate 9-06 cap, PO, l 100 MG 16:04: Daily, # [place] Extended 10 90 cap, 3 Release Refill(s), Capsule Pharmacy: [[facility] #[id number] HR 2018-0 No 100 mg = 1 Memori a topiramate 9-04 cap, PO, l 100 MG 18:31: Daily, X [place] Extended 30 day, # Release 30 cap, 3 Capsule Refill(s), [[facility]] Pharmacy: [facility] No 100 mg = 1 Memori a topiramate 9-04 cap, PO, l 100 MG 18:31: Daily, X [place] Extended 30 day, # Release 30 cap, 3 Capsule Refill(s), [[facility]] Pharmacy: [facility] No 100 mg = 1 Memori a topiramate 9-04 cap, PO, l 100 MG 18:31: Daily, X [place] Extended 30 day, # Release 30 cap, 3 Capsule Refill(s), [[facility]] Pharmacy: [facility] No 100 mg = 1 Memori a topiramate 9-04 cap, PO, l 100 MG 18:31: Daily, X [place] Extended 30 day, # Release 30 cap, 3 Capsule Refill(s), [[facility]] Pharmacy: [facility] No 100 mg = 1 Memori a topiramate 9-04 cap, PO, l 100 MG 18:31: Daily, X [place] Extended 30 day, # Release 30 cap, 3 Capsule Refill(s), [[facility]] Pharmacy: [facility] No 300 mg = 1 Memoria ne 300 MG 9-04 tab, PO, l Oral Tablet 18:31: BID, X 30 [place] [Trileptal] 02 day, # 60 tab, 3 Refill(s), Pharmacy: [facility] No 300 mg = 1 Memoria ne 300 MG 9-04 tab, PO, l Oral Tablet 18:31: BID, X 30 [place] [Trileptal] 02 day, # 60 tab, 3 Refill(s), Pharmacy: [facility] No 300 mg = 1 Memoria ne 300 MG 9-04 tab, PO, l Oral Tablet 18:31: BID, X 30 [place] [Trileptal] 02 day, # 60 tab, 3 Refill(s), Pharmacy: [facility] No 300 mg = 1 Memoria ne 300 MG 9-04 tab, PO, l Oral Tablet 18:31: BID, X 30 [place] [Trileptal] 02 day, # 60 tab, 3 Refill(s), Pharmacy: [facility] oxcarbazepi No 300 mg = 1 Memoria ne 300 MG 9-04 tab, PO, l Oral Tablet 18:31: BID, X 30 [place] [Trileptal] 02 day, # 60 tab, 3 Refill(s), Pharmacy: [facility] lisdexamfet Yes 30 mg = [...] 00 30 cap, 2 capsule Refill(s), Pharmacy: [facility] [place] omeprazole Yes 20 mg = 1 Me moria 20 mg oral 7-17 cap, PO, l delayed 00:27: Daily, # [place] release 00 30 cap, 2 capsule Refill(s), Pharmacy: [facility] omeprazole Yes 20 mg = 1 Me moria 20 mg oral 7-17 cap, PO, l delayed 00:27: Daily, # [place] n release 00 30 cap, 2 capsule Refill(s), Pharmacy: [facility] omeprazole Yes 20 mg = 1 Me moria 20 mg oral 7-17 cap, PO, l delayed 00:27: Daily, # [place] release 00 30 cap, 2 capsule Refill(s), Pharmacy: [facility] omeprazole Yes 20 mg = 1 Me moria 20 mg oral 7-17 cap, PO, l delayed 00:27: Daily, # [place] release 00 30 cap, 2 capsule Refill(s), Pharmacy: [facility] oxcarbazepi Yes 300 mg = 1 Memoria ne 300 MG 7-03 tab, PO, l Oral Tablet 18:01: BID, # 60 [place] [Trileptal] 00 tab, 2 Refill(s), Pharmacy: [facility] oxcarbazepi Yes 300 mg = 1 Memoria ne 300 MG 7-03 tab, PO, l Oral Tablet 18:01: BID, # 60 [place] [Trileptal] 00 tab, 2 Refill(s), Pharmacy: [facility] oxcarbazepi Yes 300 mg = 1 Memoria ne 300 MG 7-03 tab, PO, l Oral Tablet 18:01: BID, # 60 H ermann [Trileptal] 00 tab, 2 Refill(s), Pharmacy: [facility] oxcarbazepi Yes 300 mg = 1 Memoria ne 300 MG 7-03 tab, PO, l Oral Tablet 18:01: BID, # 60 H ermann [Trileptal] 00 tab, 2 Refill(s), Pharmacy: [facility] oxcarbazepi Yes 300 mg = 1 Memoria ne 300 MG 7-03 tab, PO, l Oral Tablet 18:01: BID, # 60 H ermann [Trileptal] 00 tab, 2 Refill(s), Pharmacy: [facility] HR Yes 100 mg = 1 Memori a topiramate 6-28 cap, PO, l 100 MG 14:50: Daily, # [place] Extended 00 30 cap, 3 Release Refill(s), Capsule Pharmacy: [[facility]] [facility] Yes 100 mg = 1 Memori a topiramate 6-28 cap, PO, l 100 MG 14:50: Daily, # Ricardo Extended 00 30 cap, 3 Release Refill(s), Capsule Pharmacy: [[facility]] [facility] Yes 100 mg = 1 Memori a topiramate 6-28 cap, PO, l 100 MG 14:50: Daily, # [place] Extended 00 30 cap, 3 Release Refill(s), Capsule Pharmacy: [[facility]] [facility] Yes 100 mg = 1 Memori a topiramate 6-28 cap, PO, l 100 MG 14:50: Daily, # [place] Extended 00 30 cap, 3 Release Refill(s), Capsule Pharmacy: [[facility]] [facility] Yes 100 mg = 1 Memori a topiramate 6-28 cap, PO, l 100 MG 14:50: Daily, # [place] Extended 00 30 cap, 3 Release Refill(s), Capsule Pharmacy: [[facility]] [facility] Yes 25 mg = 1 Me moria 25 MG Oral 6-14 tab, PO, l Tablet 23:33: BID, # 60 Murray n [Topamax] 00 tab, 2 Refill(s), Pharmacy: [facility] Yes 25 mg = 1 Me moria 25 MG Oral 6-14 tab, PO, l Tablet 23:33: BID, # 60 Murray n [Topamax] 00 tab, 2 Refill(s), Pharmacy: [facility] Yes 25 mg = 1 Me moria 25 MG Oral 6-14 tab, PO, l Tablet 23:33: BID, # 60 Murray n [Topamax] 00 tab, 2 Refill(s), Pharmacy: [facility] Yes 25 mg = 1 Me moria 25 MG Oral 6-14 tab, PO, l Tablet 23:33: BID, # 60 Murray n [Topamax] 00 tab, 2 Refill(s), Pharmacy: [facility] topiramate Yes 25 mg = 1 Me moria 25 MG Oral 6-14 tab, PO, l Tablet 23:33: BID, # 60 Murray n [Topamax] 00 tab, 2 Refill(s), Pharmacy: [facility] Phenytoin Yes 200 mg = 2 Me moria sodium 100 6-13 cap, PO, l MG Extended 13:57: BID, # 120 [place] Release 00 cap, 3 Capsule Refill(s), [Dilantin] Pharmacy: [facility] Phenytoin Yes 200 mg = 2 Me moria sodium 100 6-13 cap, PO, l MG Extended 13:57: BID, # 120 [place] Release 00 cap, 3 Capsule Refill(s), [Dilantin] Pharmacy: [facility] Phenytoin Yes 200 mg = 2 Me moria sodium 100 6-13 cap, PO, l MG Extended 13:57: BID, # 120 [place] Release 00 cap, 3 Capsule Refill(s), [Dilantin] Pharmacy: [facility] Phenytoin Yes 200 mg = 2 Me moria sodium 100 6-13 cap, PO, l MG Extended 13:57: BID, # 120 [place] Release 00 cap, 3 Capsule Refill(s), [Dilantin] Pharmacy: [facility] Phenytoin Yes 200 mg = 2 Me moria sodium 100 6-13 cap, PO, l MG Extended 13:57: BID, # 120 [place] Release 00 cap, 3 Capsule Refill(s), [Dilantin] Pharmacy: [facility] Alprazolam Yes 0.5 mg = 1 M emoria 0.5 MG Oral 6-13 tab, PO, l Tablet 13:28: TID, 0 [place] [Xanax] 00 Refill(s) Zyrtec Yes Daily, 0 Memoria 6-13 Refill(s) l 13:28: [place] 00 Alprazolam 2019-0 Yes 0.5 mg = 1 M emoria 0.5 MG Oral 6-13 tab, PO, l Tablet 13:28: TID, 0 [place]ardo [Xanax] 00 Refill(s) Zyrtec 2019-0 Yes Daily, 0 Memoria 6-13 Refill(s) l 13:28: Alprazolam 2019-0 Yes 0.5 mg = 1 M emoria 0.5 MG Oral 6-13 tab, PO, l Tablet 13:28: TID, 0 [place] [Xanax] 00 Refill(s) Zyrtec 0 Yes Daily, [...] tab, PO, l Tablet 13:28: TID, 0 [place] [Xanax] 00 Refill(s) Zyrtec 0 Yes Daily, [...] 1-15 by mouth. ity of tablet 00:00: [address] montelukast Yes 10mg Take 10 mg Univers 10 mg 1-15 by mouth. ity of tablet 00:00: [address] VYVANSE 40 Yes 1{tbl} Take 1 MD mg capsule 9-19 tablet by Andrea rso 00:00: mouth n 00 daily. No known No Univers medications [facility] No known No Univers medications [facility] Immunizations Ordered Immunization Filled Immunization Date Status Commen ts Source Name Name Bamitaloimab 2020-06-10 Completed Yarsanism 00:00:00 [facility] FLUCELVAX QUAD PF 2020-02-[address] 00:00:00 [facility] Influenza Split Completed MD Charles on 00:00:00 Vital Signs Vital Name Observation Time Observation Value Comments Source Systolic blood 2021-03-16 15:58:00 114 mm[Hg] Univer sity [facility] Diastolic blood 2021-03-16 15:58:00 75 mm[Hg[facility] 2021-03-16 15:58:00 76 /min [facility] Body temperature 2021-03-16 15:58:00 36.78 Staci [facility] Respiratory rate 2021-03-16 15:58:00 17 /min [facility] Body height 2021-03-16 15:58:00 167.6 cm [facility] Body weight 2021-03-16 15:58:00 78.926 kg [facility] BMI 2021-03-16 15:58:00 28.08 kg/m2 [facility] Oxygen saturation in 2021-03-16 15:58:00 96 /min University of Arterial blood by [facility] Pulse oximetry Branch Systolic blood 2021-02-20 14:14:00 120 mm[Hg] Univer sity of pressure [facility] Diastolic blood 2021-02-20 14:14:00 79 mm[Hg] Unive rsity of pressure [facility] Heart rate 2021-02-20 14:14:00 74 /min [facility] Body temperature 2021-02-20 14:14:00 36.78 Staci [facility] Respiratory rate 2021-02-20 14:14:00 16 /min [facility] Body weight 2021-02-20 14:14:00 79.833 kg [facility] BMI 2021-02-20 14:14:00 30.21 kg/m2 [facility] Oxygen saturation in 2021-02-20 14:14:00 99 /min [facility] Arterial blood by [facility] Pulse oximetry Branch Systolic blood 2020-12-05 03:35:00 121 mm[Hg] Univer sity of pressure [facility] Diastolic blood 2020-12-05 03:35:00 83 mm[Hg] Unive rsity of pressure [facility] Heart rate 2020-12-05 03:35:00 79 /min [facility] Oxygen saturation in 2020-12-05 03:35:00 100 /min [facility] Arterial blood by [facility] Pulse oximetry Branch Body temperature 2020-12-05 01:16:00 37.11 Staci Univ [facility] Respiratory rate 2020-12-05 01:16:00 18 /min Univ [facility] Body height 2020-12-05 01:16:00 167.6 cm [facility] Body weight 2020-12-05 01:16:00 81.647 kg [facility] BMI 2020-12-05 01:16:00 29.05 kg/m2 [facility] Systolic blood 2020-12-04 00:19:00 114 mm[Hg] Univer sity of pressure [facility] Diastolic blood 2020-12-04 00:19:00 79 mm[Hg] Unive rsity of pressure [facility] Heart rate 2020-12-04 00:19:00 92 /min Universi ty of [facility] Body temperature 2020-12-04 00:19:00 37.17 Staci Univ ersity of [facility] Respiratory rate 2020-12-04 00:19:00 18 /min Univ ersity of [facility] Body height 2020-12-04 00:19:00 167.6 cm Universi ty [facility] Body weight 2020-12-04 00:19:00 81.647 kg Universi ty of [facility] BMI 2020-12-04 00:19:00 29.05 kg/m2 [facility] ty [facility] Oxygen saturation in 2020-12-04 00:19:00 99 /min [facility] Arterial blood by [facility] Pulse oximetry Branch Systolic blood 2020-10-27 16:50:00 125 mm[Hg] [facility] Medicine Diastolic blood 2020-10-27 16:50:00 85 mm[Hg] [facility] Medicine Heart rate 2020-10-27 16:50:00 96 /min [facility] Respiratory rate 2020-10-27 16:50:00 16 /min [facility] Body height 2020-10-27 16:50:00 167.6 cm [facility] Body weight 2020-10-27 16:50:00 86.637 kg [facility] BMI 2020-10-27 16:50:00 30.83 kg/m2 [facility] Oxygen saturation in 2020-10-27 16:50:00 100 /min [facility] Arterial blood by [facility] Pulse oximetry Systolic blood 2020-10-27 16:50:00 125 mm[Hg] [facility] Medicine Diastolic blood 2020-10-27 16:50:00 85 mm[Hg] [facility] Medicine Heart rate 2020-10-27 16:50:00 96 /min [facility] Respiratory rate 2020-10-27 16:50:00 16 /min [facility] Body height 2020-10-27 16:50:00 167.6 cm [facility] ollege of Medicine Body weight 2020-10-27 16:50:00 86.637 kg [facility] ol[facility] of Medicine BMI 2020-10-27 16:50:00 30.83 kg/m2 [facility] ol[facility] of Medicine Oxygen saturation in 2020-10-27 16:50:00 100 /min [facility] College of Arterial blood by Medicine Pulse oximetry Systolic blood 2020-09-08 15:15:00 118 mm[Hg] [facility] of pressure Medicine Diastolic blood 2020-09-08 15:15:00 79 mm[Hg] [facility] of pressure Medicine Heart rate 2020-09-08 15:15:00 84 /min [facility] ollege of Medicine Respiratory rate 2020-09-08 15:15:00 16 /min [facility] Body height 2020-09-08 15:15:00 167.6 cm [facility] ollege of [facility] Body weight 2020-09-08 15:15:00 88.179 kg [facility] of Medicine BMI 2020-09-08 15:15:00 31.38 kg/m2 [facility] ol[facility] of Medicine Oxygen saturation in 2020-09-08 15:15:00 99 /min [facility] of Arterial blood by Medicine Pulse oximetry Systolic blood 2020-09-08 15:15:00 118 mm[Hg] [facility] pressure Medicine Diastolic blood 2020-09-08 15:15:00 79 mm[Hg] [facility] Medicine Heart rate 2020-09-08 15:15:00 84 /min [facility] ol[facility] of Medicine Respiratory rate 2020-09-08 15:15:00 16 /min [facility] Body height 2020-09-08 15:15:00 167.6 cm [facility] of Medicine Body weight 2020-09-08 15:15:00 88.179 kg [facility] of Medicine BMI 2020-09-08 15:15:00 31.38 kg/m2 [facility] ol[facility] of Medicine Oxygen saturation in 2020-09-08 15:15:00 99 /min [facility] of Arterial blood by Medicine Pulse oximetry Height 2020-10-12 19:27:00 167.64 cm [facility] [place] Weight 2020-10-12 19:27:00 [facility] [place] BMI Calculated 2020-10-12 19:27:00 Memori al [place] Systolic (mm Hg) 2020-10-12 19:27:00 Unruly rial [place] Diastolic (mm Hg) 2020-10-12 19:27:00 Mem orial [place] Heart Rate 2020-10-12 19:27:00 [facility] [place] Respitory Rate 2020-10-12 19:27:00 Memori al [place] Weight 2020-08-29 21:36:00 [facility] Systolic blood 2020-06-10 20:17:19 128 mm[Hg] [facility] pressure Diastolic blood 2020-06-10 20:17:19 68 mm[Hg] [facility] pressure Heart rate 2020-06-10 20:17:19 88 /min [facility] Body temperature 2020-06-10 20:17:[address] [facility] [place] Respiratory rate 2020-06-10 20:17:19 16 /min [facility] [place] Oxygen saturation in 2020-06-10 20:17:19 98 /min [facility] Arterial blood by Pulse oximetry Body height 2020-06-10 18:48:00 167.6 cm [facility] Body weight 2020-06-10 18:48:00 94.802 kg [facility] BMI 2020-06-10 18:48:00 33.73 kg/m2 [facility] Systolic (mm Hg) 2020-04-19 20:08:00 Unruly rial [place] Diastolic (mm Hg) 2020-04-19 20:08:00 Mem orial [place] Heart Rate 2020-04-19 20:08:00 [facility] Ricardo Respitory Rate 2020-04-19 20:08:00 Memori al [place] Height 2020-04-19 20:08:00 167.64 cm [facility] [place] Weight 2020-04-19 20:08:00 [facility] [place] BMI Calculated 2020-04-19 20:08:00 Memori al [place] Systolic (mm Hg) 2020-03-29 20:19:00 Unruly rial [place] Diastolic (mm Hg) 2020-03-29 20:19:00 Mem orial [place] Heart Rate 2020-03-29 20:19:00 [facility] [place] Respitory Rate 2020-03-29 20:19:00 Memori al [place] Height 2020-03-29 20:19:00 167.64 cm [facility] [place] Weight 2020-03-29 20:19:00 [facility] [place] BMI Calculated 2020-03-29 20:19:00 Memori al [place] Systolic (mm Hg) 2020-02-29 17:31:00 Unruly rial [place] Diastolic (mm Hg) 2020-02-29 17:31:00 Mem orial [place] Heart Rate 2020-02-29 17:31:00 [facility] [place] Respitory Rate 2020-02-29 17:31:00 Memori al [place] Height 2020-02-29 17:31:00 167.64 cm [facility] [place] Weight 2020-02-29 17:31:00 [facility] [place] BMI Calculated 2020-02-29 17:31:00 Memori al [place] Systolic (mm Hg) 2018-12-23 18:03:00 Unruly rial [place] Diastolic (mm Hg) 2018-12-23 18:03:00 Mem orial [place] Heart Rate 2018-12-23 18:03:00 [facility] [place] Respitory Rate 2018-12-23 18:03:00 Memori al [place] Height 2018-12-23 18:03:00 167.64 cm [facility] [place] Weight 2018-12-23 18:03:00 [facility] [place] BMI Calculated 2018-12-23 18:03:00 Memori al [place] BMI Calculated 2018-11-27 15:59:00 Memori al [place] Weight 2018-11-27 15:59:00 [facility] [place] Height 2018-11-27 15:59:00 167.64 cm [facility] [place] Heart Rate 2018-11-27 15:59:00 [facility] [place] Respitory Rate 2018-11-27 15:59:00 Memori al [place] Systolic (mm Hg) 2018-11-27 15:59:00 Unruly rial [place] Diastolic (mm Hg) 2018-11-27 15:59:00 Mem orial [place] BMI Calculated 2018-10-16 14:19:00 Memori al [place] Weight 2018-10-16 14:19:00 [facility] [place] Height 2018-10-16 14:19:00 167.64 cm [facility] [place] Heart Rate 2018-10-16 14:19:00 [facility] [place] Respitory Rate 2018-10-16 14:19:00 Avery hdz [place] Systolic (mm Hg) 2018-10-16 14:19:00 Unruly vang [place] Diastolic (mm Hg) 2018-10-16 14:19:00 Mem orial [place] BMI Calculated 2018-10-01 13:18:00 Avery Alejandreann Weight 2018-10-01 13:18:00 Cassie [place] Height 2018-10-01 13:18:00 167.64 cm [facility] [place] Respitory Rate 2018-10-01 13:18:00 Avery hdz [place] [...] QUANTITATIVE PCR COLLECTION, BLOOD ABORH 2021-03-30 17:04:00 Jori Long MD ANTIBODY SCREEN 2021-03-30 17:04:00 Jori [...] POCT GRP A STREP 2021-03-16 16:11:00 Zayra [facility] XR CHEST 1 VW 2020-12-05 02:15:29 Ester [facility] CT ABDOMEN PELVIS W 2020-12-05 02:09:58 Ester [facility] CONTRAST [facility] POCT TEST 2020-12-05 01:31:00 Ester [facility] Medical [place] LIPASE 2020-12-05 01:29:00 Ester [facility] TROPONIN I 2020-12-05 01:29:00 Ester [facility] COMP. METABOLIC PANEL 2020-12-05 01:29:00 Truong Norman [facility] ([id number]) [facility] CBC WITH DIFF 2020-12-05 01:29:00 Ester [facility] URINALYSIS 2020-12-05 01:29:00 [facility] NOTICE OF PRIVACY 2020-12-05 01:06:38 Doctor Unassigned, No Univ [facility] PRACTICES Name Medical Branch CONSENT/REFUSAL FOR 2020-12-05 01:05:01 [facility], [facility] Name [facility] Branch POCT GRP A STREP 2020-12-04 00:42:00 Tessa Mendoza [facility] (MOLECULAR) [facility] MRI THORACIC SPINE W 2020-06-06 22:01:00 [facility] CONTRAST MRI CERVICAL SPINE W 2020-06-06 22:01:00 [facility] CONTRAST MRI BRAIN W WO CONTRAST 2020-06-06 22:00:00 [facility] PROTEIN 2020-06-06 18:12:00 [facility] Natvarla INTERLEUKIN 6 2020-06-06 18:12:00 [facility] Natvarlal FERRITIN LEVEL 2020-06-06 18:12:00 [facility] ospital Natvarlal D-DIMER 2020-06-06 18:12:00 [facility] ospital Natvarlal LDH 2020-06-06 18:12:00 TsaiJen [facility] ospital Natvarlal FIBRINOGEN 2020-06-06 18:12:00 [facility] ospital Natvarlal CT CHEST WO CONTRAST 2020-06-06 18:03:12 Eloise Dorsey [facility] URINE CULTURE 2020-06-04 13:58:00 Kanchan Downey spital URINALYSIS SCREEN AND 2020-06-04 13:58:00 [address]oise Dorsey Gin [facility] [place] MICROSCOPY, WITH REFLEX TO CULTURE HCG QUALITATIVE, URINE 2020-06-04 13:58:00 [facility] SCREEN COVID-19 QUALITATIVE 2020-06-04 13:45:00 [facility] RT-PCR HC COMPLETE BLD COUNT 2020-06-04 08:45:00 [facility] W/AUTO DIFF Imarendenewe COMPREHENSIVE METABOLIC 2020-06-04 07:56:00 [facility] PANEL Imarendenewe ESTIMATED GFR 2020-06-04 07:56:00 [facility] Imarendene OCT, OPTIC NERVE - OU - 2020-03-08 19:34[facility] VISUAL FIELD, 2020-03-08 19:34[facility] - [facility]U - BOTH EYES DURABLE MEDICAL EQUIPMENT 2020-02-16 15:31:42 [facility] BASIC METABOLIC PANEL 2020-02-16 10:10:00 Sharlene [facility] [place] ESTIMATED GFR 2020-02-16 10:10:00 [facility] DURABLE MEDICAL EQUIPMENT 2020-02-15 20:56:49 Caleb Roque [facility] EMG 2020-02-15 17:46:48 [facility] 2020-02-15 10:00[facility] BASIC METABOLIC PANEL 2020-02-15 10:00:00 [facility] EST[facility] GFR 2020-02-15 10:00:00 Shira Benedict spital VISUAL EVOKED POTENTIALS 2020-02-14 16:52:23 Dora Montalvo [facility] (VEP) HC COMPLETE BLD COUNT 2020-02-14 09:15:00 [facility] W/AUTO DIFF BASIC METABOLIC PANEL 2020-02-14 09:15:00 [facility] ESTIMATED GFR 2020-02-14 09:15:00 Shira Benedict Ho spital MRI LUMBAR SPINE W WO 2020-02-13 15:28:12 [facility] BRAIN VENOGRAM 2020-02-13 14:47:24 [facility] COMPLETE BLD COUNT 2020-02-13 09:05:00 [facility] W/AUTO DIFF BASIC METABOLIC PANEL 2020-02-13 09:00:00 [facility] EST[facility] GFR 2020-02-13 09:00:00 Yesiwu Shira Worley Ho spital HC COMPLETE BLD COUNT 2020-02-12 15:18:00 [facility] W/AUTO DIFF BASIC METABOLIC PANEL 2020-02-12 13:00:00 [facility] ESTIMATED GFR 2020-02-12 13:00:00 OnShira smith Ho spital VENIPUNC NEED PHYS 2020-02-08 15:39:11 Familia Colon [facility] SKILL,DX OR RX MISCELLANEOUS REFERRAL 2020-02-08 14:00:00 Ozzie [facility] TEST Marck US DUPLEX VENOUS UPPER 2020-02-07 22:26:50 [facility] EXTREMITY RIGHT VENIPUNC NEED PHYS 2020-02-07 14:18:07 Javier Kolb [facility] SKILL,DX OR RX HC COMPLETE BLD COUNT 2020-02-07 10:00:00 [facility] W/AUTO DIFF BASIC METABOLIC PANEL 2020-02-07 10:00:00 [facility] ESTIMATED GFR 2020-02-07 10:00:00 [facility] HC COMPLETE BLD COUNT 2020-02-06 11:18:00 [facility] W/AUTO DIFF BASIC METABOLIC PANEL 2020-02-06 11:18:00 [facility] ESTIMATED GFR 2020-02-06 11:18:00 [facility] XR CHEST 1 VW PORTABLE 2020-02-06 02:27:51 Lock, [facility] ECG 12-LEAD 2020-02-06 02:12:53 Varsha [facility] HC COMPLETE BLD COUNT 2020-02-05 11:00:00 Varsha [facility] W/AUTO DIFF BASIC METABOLIC PANEL 2020-02-05 09:00:00 Varsha [facility] ESTIMATED GFR 2020-02-05 09:00:00 Varsha [facility] IGG SYNTHESIS RATE STUDY 2020-02-04 16:00:00 Varsha [facility] FUNGUS CULTURE 2020-02-04 15:56:00 [facility] AFB CULTURE 2020-02-04 15:56:00 [facility] IR LUMBAR PUNCTURE 2020-02-04 15:00:00 [facility] CSF CULTURE 2020-02-04 14:56:00 [facility] CRYPTOCOCCAL ANTIGEN 2020-02-04 14:56:00 [facility] SCREEN GRAM STAIN 2020-02-04 14:56:00 Paola [facility] CSF CELL COUNT WITH 2020-02-04 14:56:00 [facility] DIFFERENTIAL GLUCOSE LEVEL, CSF 2020-02-04 14:56:00 [facility] IGG SYNTHESIS RATE STUDY 2020-02-04 14:56:00 [facility] VDRL, CSF 2020-02-04 14:56:00 [facility] LYME DISEASE REFLEXIVE 2020-02-04 14:56:00 [facility] PANEL, CSF CYTOMEGALOVIRUS BY PCR 2020-02-04 14:56:00 [facility] MISCELLANEOUS REFERRAL 2020-02-04 14:56:00 Paola [facility] TEST ENTEROVIRUS BY PCR 2020-02-04 14:56:00 [facility] HERPES SIMPLEX VIRUS BY 2020-02-04 14:56:00 [facility] PCR FLOW CYTOMETRY EVALUATION 2020-02-04 14:56:00 [facility] [place] VIRUS ANTIBODY 2020-02-04 14:56:00 Tosha [facility] PANEL, CSF ANGIOTENSIN CONVERTING 2020-02-04 14:56:00 Tosha [facility] ENZYME, CSF OLIGOCLONAL BANDING, CSF 2020-02-04 14:56:00 Paola [facility] MISCELLANEOUS REFERRAL 2020-02-04 14:56:00 Paola [facility] TEST EEG AWAKE/ASLEEP LESS THAN 2020-02-04 12:19:32 Tosha [facility] 41 MIN ECG 12-LEAD 2020-02-04 09:50:41 Edgar Manan [facility] BLOOD CULTURE, AEROBIC & 2020-02-04 06:50:00 [facility] ANAEROBIC BLOOD CULTURE, AEROBIC & 2020-02-04 06:40:00 [facility] ANAEROBIC MISCELLANEOUS REFERRAL 2020-02-04 06:40:00 Manan Hernández [facility] TEST HC COMPLETE BLD COUNT 2020-02-04 06:40:00 [facility] W/AUTO DIFF BASIC METABOLIC PANEL 2020-02-04 06:40:00 [facility] ESTIMATED GFR 2020-02-04 06:40:00 Paola [facility] URINE CULTURE 2020-02-04 05:56:00 Paola [facility] URINALYSIS SCREEN AND 2020-02-04 05:56:00 Manan Hernández [facility] MICROSCOPY, WITH REFLEX TO CULTURE URINE DRUGS OF ABUSE 2020-02-04 05:56:00 Manan Hernández [facility] SCREEN COVID-19 QUALITATIVE 2020-02-04 04:41:00 Kim Guevara [facility] RT-PCR MRI BRAIN & ORBIT W WO 2020-02-04 03:12:[address] [facility] MRI CERVICAL SPINE W 2020-02-04 03:12:00 Manan Hernández [facility] CONTRAST MRI THORACIC SPINE W 2020-02-04 03:12:00 Manan Hernández [facility] CONTRAST CYTOLOGY 2020-02-04 01:17:00 [facility] REQUEST COMPREHENSIVE METABOLIC 2020-02-03 23:35:00 [place] [facility] PANEL ESTIMATED GFR 2020-02-03 23:35:00 Kim Guevara [facility] HC COMPLETE BLD COUNT 2020-02-03 23:25:00 [facility] W/AUTO DIFF ELMER 2020-02-03 23:25:00 [place] [facility] FOLATE LEVEL 2020-02-03 23:25:00 [place] [facility] VITAMIN B12 LEVEL 2020-02-03 23:25:00 [place] [facility] C-REACTIVE PROTEIN 2020-02-03 23:25:00 [place] [facility] HOMOCYSTINE, PLASMA 2020-02-03 23:25:00 [facility] CORTISOL LEVEL, RANDOM 2020-02-03 23:25:00 [facility] SEDIMENTATION RATE 2020-02-03 23:25:00 [facility] RHEUMATOID FACTOR 2020-02-03 23:25:00 [facility] THYROID STIMULATING 2020-02-03 23:25:00 [facility] HORMONE T4, FREE 2020-02-03 23:25:00 [facility] T3 2020-02-03 23:25:00 [facility] SYPHILIS TREPONEMA SCREEN 2020-02-03 23:25:00 [facility] WITH RPR CONFIRMATION (REVERSE ALGORITHM) HIV AG/AB COMBINATION 2020-02-03 23:25:00 [facility] VITAMIN D 25 HYDROXY LEVEL 2020-02-03 23:25:00 [facility] B. BURGDORFERI ABS TOTAL, 2020-02-03 23:25:00 [facility] SERUM CT HEAD WO CONTRAST 2020-02-03 21:14:55 [facility] HCG QUANTITATIVE, SERUM 2020-02-03 19:27:00 [facility] Tubal ligation [facility] Plan of Care Planned Activity Planned Date Details Comments Source Future Scheduled 2020-10-27 DIRECT ANTIGLOBULIN Ordered: [employer] [facility] 12:31:11 TEST [code = 44930] 10/27/2020 of Medic ine Future Scheduled 2020-10-27 COMPREHENSIVE METABOLIC Ordered: [facility] [employer] Test 12:31:11 PANEL [code = 31603-0] 10/27/2020 of Me dicine Future Scheduled 2020-10-27 CBC W/AUTO DIFF WITH Ordered: [employer] [facility] 12:31:11 PLATELETS [code = 10/27/2020 of Medicin e 35530-5] Future Scheduled 2020-10-27 SEDIMENTATION RATE Ordered: [employer] Test 12:31:11 MODIFIED WESTERGREN 10/27/2020 of Medic ine [code = 4537-7] Future Scheduled 2020-10-27 RANDOM URINE Ordered: [facility] Janet [employer] Test 12:31:11 PROTEIN/CREATININE 10/27/2020 of Medici ne [code = 2890-2] Future Scheduled 2020-10-27 URINALYSIS, COMPLETE Ordered: [employer] [facility] 12:31:11 W/REFLEX TO CULTURE 10/27/2020 of Medic ine [code = 35055-9] Future Scheduled 2020-10-27 COMPLEMENT C3 AND C4 Ordered: [employer] [facility] 12:31:11 [code = NOCPT] 10/27/2020 of Medicine Future Scheduled 2020-10-27 DNA (DS) ANTIBODY, Ordered: [employer] [facility] 12:31:11 CRITHIDIA IFA W/RX 10/27/2020 of Medici ne TITER [code = 6457-6] Future Scheduled 2020-10-27 C-REACTIVE PROTEIN Ordered: [employer] [employer] [facility] 12:31:11 [code = 1988-5] 10/27/2020 of Medicine Future Scheduled 2020-10-27 HAPTOGLOBIN [code = Ordered: [employer] [facility] 12:31:11 50601-5] 10/27/2020 of Medicine Future Scheduled 2020-10-27 LACTATE DEHYDROGENASE Ordered: [facility] Test 12:31:11 [code = 2532-0] 10/27/2020 of Medicine Future Scheduled 2020-10-27 RETICULOCYTE WITH Ordered: [facility] Test 12:31:11 ABSOLUTE [code = NOCPT] 10/27/2020 of M edicine Future Scheduled 2020-10-27 PATH REVIEW, SMEAR Ordered: [facility] [employer] Test 12:31:11 [code = 20844-8] 10/27/2020 of Medicine Future Scheduled 2020-10-27 COVID-19 Vaccine (1) [facility] Test 11:49:19 [code = COVID-19 of Medicine Vaccine (1)] Future Scheduled 2020-10-27 TETANUS SHOT (ADULT) [facility] Test 11:49:19 [code = TETANUS SHOT of Medi cine (ADULT)] Future Scheduled 2020-10-27 BMI FOLLOW UP PLAN [facility] [place] Test 11:49:19 [code = BMI FOLLOW UP of Med icine PLAN] Future Scheduled 2020-10-27 Hepatitis C screening [facility] Test 11:49:19 (procedure) [code = of Medic ine 475338861] Future Scheduled 2020-10-27 Human immunodeficiency B [facility] Test 11:49:19 virus screening of Medicine (procedure) [code = 740663576] Future Scheduled 2020-10-27 Screening for malignant [facility] Test 11:49:19 neoplasm of cervix of Medici ne (procedure) [code = 518002882] Future Scheduled 2020-10-27 FLU VACCINE > 6 MONTHS B [facility] [employer] Test 11:49:19 [code = FLU VACCINE > 6 of M edicine MONTHS] Future Scheduled 2020-09-08 COVID-19 Vaccine (1) [facility] Test 13:06:03 [code = COVID-19 of Medicine Vaccine (1)] Future Scheduled 2020-09-08 TETANUS SHOT (ADULT) [employer] [facility] [employer] Test 13:06:03 [code = TETANUS SHOT of Medi cine (ADULT)] Future Scheduled 2020-09-08 BMI FOLLOW UP PLAN [facility] r [employer] Test 13:06:03 [code = BMI FOLLOW UP of Med icine PLAN] Future Scheduled 2020-09-08 Hepatitis C screening [facility] Test 13:06:03 (procedure) [code = of Medic ine 688145227] Future Scheduled 2020-09-08 [facility] 13[facility]03 virus screening of Medicine (procedure) [code = 632436448] Future Scheduled 2020-09-08 Screening for malignant [facility] Test 13:06:03 neoplasm of cervix of Medici ne (procedure) [code = 473051075] Future Scheduled 2020-09-08 FLU VACCINE > 6 MONTHS B [facility] Test 13:06:03 [code = FLU VACCINE > 6 of M edicine MONTHS] Future Scheduled 1998 COVID-19 Vaccination [facility] Test 00:00:00 (1) [code = COVID-19 Vaccination (1)] Future Scheduled COVID-19 VACCINE (1) [facility] [code = COVID-19 Hospital VACCINE (1)] Future Scheduled Hepatitis C screening [facility] (procedure) [code = Hospital 423777845] Future Scheduled INFLUENZA VACCINE [code [facility] = INFLUENZA VACCINE] Hospita l Future Scheduled Screening for malignant [facility] neoplasm of cervix Hospital (procedure) [code = 432717497] Encounters Start End Encounter Admission Attending Care Care Encounter Source Date/Time Date/Time Type Type Clinicians Facility Department ID 2021-02-19 Emergency [facility] [id number] [facility] 15:57:52 ity [facility] 2021-04-27 2021-04-27 ambulatory [facility] [id number] [facility]00 [facility] gutierrez [facility]pat[facility] Clinics 2021-03-30 2021-03-30 Outpatient JORI GREENE MDA, MDA [id number] 07:00:00 23:59:00 Melvin mitchell 2021-03-30 2021-03-30 Outpatient JORI GREENE MDA, MDA [id number] 10:55:42 10:55:42 Melvinjude mitchell 2021-03-16 2021-03-16 Outpatient Rola IVERSON [facility] [id number] Univers 10:20:00 10:27:28 EARLE cueva [facility] 2021-03-16 2021-03-16 Urgent Earle Iverson [facility] 1.2.840. 114 [id number] Univers 09:54:29 10:27:28 Care [facility] 350.1.13.10 ity of [place] 4.2.7.2.686 Raj as NINO?BLEA [id number] [address] MEDICAL OFFICE [facility] 2021-03-16 2021-03-16 Outpatient R [facility] [id number] Univers 10:20:00 10:20:00 [id number] [facility] 2021-03-13 2021-03-13 ambulatory [facility] [id number] [facility] 2021-03-12 2021-03-12 ambulatory [facility] [id number] [facility] 2021-02-20 2021-02-[address] [facility] [id number] Univers 09:20:00 09:38:06 [facility] o f [facility] 2021-02-20 2021-02-[address] [facility] 1.2.840.114 [id number] Univers 09:11:11 09:38:06 Care [facility] 350.1.13.10 i ty cynthia [place] 4.2.7.2.686 Raj as NINO?BLEA [phone] [address] MEDICAL OFFICE [facility] 2021-02-20 2021-02-20 Outpatient R [facility] [id number] Univers 09:20:00 09:20:00 [id number] ity [facility] 2021-01-24 2021-01-24 Outpatient [facility] [id number] [facility] 2021-01-06 2021-01-06 Outpatient [facility] [id number] [facility] 2021-01-05 2021-01-05 Outpatient [facility] [id number] [facility] 2021-01-05 2021-01-05 Outpatient [facility] [id number] [facility] 2020-12-29 2020-12-29 Outpatient [facility] [id number] [facility] 2020-12-28 2020-12-28 Outpatient [facility] [id number] Univers 17:20:00 17:20:00 [id number] [facility] 2020-12-28 2020-12-28 Outpatient [facility] [id number] [facility] 2020-12-26 2020-12-26 Outpatient [facility] [id number] [facility] 2020-12-08 2020-12-08 Telephone Harsh 1.2.840.1 [id number] Methodi 00:00:00 00:00:[address] 3.430.2.7 Hospit a .3.140612 l .8 2020-12-07 2020-12-07 Orders Soco Savage 1.2.840.1 [id number] Methodi 00:00:00 00:00:[address] 3.430.2.7 Hospit a .3.574939 l .8 2020-12-06 2020-12-06 Outpatient R [facility] [id number] Univers 12:30:00 12:30:00 [id number] [facility] 2020-12-06 2020-12-06 Outpatient R MAGALIE, [facility] [id number] Univers 12:30:00 12:30:00 INOCENTE [facility] 2020-12-05 2020-12-05 Telephone NATI Mason 1.2.464.218 [id number] Univers 00:00:00 00:00:00 Shilpa AGUIRRE 350.1.13.10 it y of [facility] 4.2.7.2.686 Raj as [id number] [facility] [address] 2020-12-04 2020-12-04 Emergency [facility] 1.2.840.114 [id number] Univers 20:55:00 23:38:00 Truong [place] 350.1.13.10 i ty [facility] 4.2.7.2.686 [place] [phone] [facility] [address] 2020-12-04 2020-12-04 Outpatient [facility] [id number] [facility] 00[facility]:00 Ayanna gutierrez Outpati ent Clinics 2020-12-03 2020-12-03 Urgent Provider, [facility] 1.2.840.114 [id number] Univers 18:59:54 19:19:54 Care Tessa Mendoza [facility] 350.1.13.10 ity [facility] 4.2.7.2.686 Raj as Professio [phone] [address] Office [address] 2020-12-03 2020-12-03 Outpatient [facility] [id number] Univers 18:40:00 18:40:00 [id number] ity of [facility] 2020-12-03 2020-12-03 Outpatient R REJI [facility] [id number] Univers 18:40:00 18:40:00 TESSA shearer o f [facility] 2020-12-01 2020-12-01 Ambulatory nullFlavo MNA [id number] [facility] 16:30:00 16:30:00 Pre-Reg r Neurology 16 l Ean Silva 2020-10-27 2020-10-27 Office ROMULO Walters 1.2.840.[id number] [place] [address] 11:43:47 12:34:19 Visit Chika AMBULATOR 350.1.13.21 College Y 0.2.7.2.686 of [phone] [facility] 370 e 2020-10-27 2020-10-27 Office ROMULO Walters 1.2.840.114 [id number] 11:43:47 12:34:19 Visit Chika AMBULATOR 350.1.13.21 Y 0.2.7.2.686 [id number] 370 2020-10-18 2020-10-18 Outpatient [facility] [id number] [facility] 2020-10-13 2020-10-13 Outpatient GILDA VO [id number] Memoria 10:30:00 10:30:00 14 l Ricardo 2020-10-12 2020-10-13 Outpatient nullFlavo MNA [id number] Memoria 19:15:00 04:59:59 r Neurology 15 l [place] 2020-10-11 2020-10-11 Outpatient [facility] [id number] [facility] 2020-09-08 2020-09-08 Office ROMULO Walters 1.2.840.114 [id number] [facility] 10:12:53 13:09:00 Visit Chika AMBULATOR 350.1.13.21 [place] Suresh Y 0.2.7.2.686 of [phone] [facility] 370 e 2020-09-08 2020-09-08 Office ROMULO Walters 1.2.840.114 [id number] 10:12:53 13:09:00 Visit Chika AMBULATOR 350.1.13.21 Suresh Y 0.2.7.2.686 [id number] 370 2020-09-08 2020-09-08 Outpatient [facility] [id number] [facility] 2020-09-07 2020-09-07 Outpatient [facility] [id number] [facility] 2020-09-01 2020-09-01 Outpatient [facility] [id number] [facility] 2020-08-29 2020-08-30 Outpatient nullFlavo MNA [id number] Memoria 20:45:00 04:59:59 r Neurology 13 l [place] Ricardo 2020-08-28 2020-08-28 Outpatient [facility] [id number] [facility] 2020-08-15 2020-08-15 Outpatient [facility] [id number] [facility] 2020-08-08 2020-08-08 Outpatient [facility] [id number] [facility] 2020-08-08 2020-08-08 Outpatient [facility] [id number] [facility] 2020-08-07 2020-08-07 Outpatient [facility] [id number] [facility] 2020-07-26 2020-07-26 Outpatient [facility] [id number] [facility] 2020-07-20 2020-07-20 Outpatient [facility] [id number] [facility] 2020-07-10 2020-07-10 Outpatient [facility] [id number] [facility] 2020-07-10 2020-07-10 Outpatient [facility] [id number] [facility] 2020-07-06 2020-07-06 Outpatient [facility] [id number] [facility] 2020-07-04 2020-07-04 Outpatient [facility] [id number] [facility] 2020-06-30 2020-06-30 Outpatient [facility] [id number] [facility] 2020-06-27 2020-06-27 Outpatient [facility] [id number] [facility] 2020-06-20 2020-06-20 Outpatient [facility] [id number] [facility] 2020-06-19 2020-06-19 Outpatient [facility] [id number] [facility] 2020-06-14 2020-06-16 Outside nullFlavo MNA [id number] Memoria 21:54:19 05:59:59 Medical r Neurology 01 l Records [place] 2020-06-12 2020-06-12 Outpatient [facility] [id number] [facility] 2020-06-12 2020-06-12 Outpatient [facility] [id number] [facility] 2020-06-10 2020-06-10 Infusion Alhaji, 1.2.840.1 [id number] Methodi 11:41:17 14:59:06 Marques Lobo 81876.1.[address] 3.430.2.7 Hospit a .3.050309 l .8 2020-06-10 2020-06-10 Travel 1.2.840.1 1.2.386.008 [id number] Methodi 00:00:00 00:00:[address] 3.430.2.7 0.2.7.3.698 Ho spita .3.276321 084.8 l .8 2020-06-10 2020-06-10 Orders Anival, 1.2.840.1 [id number] Methodi 00:00:00 00:00:00 Only Sue 62520.1.[address] 3.430.2.7 Hospit a .3.579332 l .8 2020-06-10 2020-06-10 Telephone Anival, 1.2.840.1 [id number] Methodi 00:00:00 00:00:[address] 3.430.2.7 Hospit a .3.188407 l .8 2020-06-10 2020-06-10 Orders Anival, 1.2.840.1 [id number] 0142 Methodi 00:00:00 00:00:00 Only Sue 59558.1.[address] 3.430.2.7 Hospit a .3.734504 l .8 2020-06-09 2020-06-09 Outpatient [facility] [id number] [facility] 2020-06-09 2020-06-09 Outpatient [facility] [id number] [facility] 2020-06-04 2020-06-07 [facility] 1.2.840.1 [id number] Methodi 00:56:00 14:30:00 Kanchan Wilkinson 81576.1.1 47 3 [facility] 3.430.2.7 Hospita .3.638402 l .8 2020-05-31 2020-06-01 Outpatient nullFlavo MNA [id number] Memoria 17:30:00 05:59:59 r Neurology 12 l Ean Silva 2020-05-31 2020-05-31 Ambulatory nullFlavo MNA [id number] Memoria 21:30:00 21:30:00 Pre-Reg r Neurology 11 l Ean Silva 2020-04-19 2020-04-20 Outpatient nullFlavo MNA [id number] Memoria 20:00:00 05:59:59 r Neurology 10 l [place] 2020-04-18 2020-04-18 Outpatient [facility] [id number] [facility] 2020-04-11 2020-04-12 Outpatient nullFlavo MNA [id number] [facility]oria 16:00:00 05:59:59 r Neurology 09 l [place] 2020-03-29 2020-03-30 Outpatient nullFlavo MNA [id number] Memoria 20:00:00 05:59:59 r Neurology 08 l [place] 2020-03-22 2020-03-22 Outpatient [facility] [id number] [facility] 2020-03-16 2020-03-16 Outpatient [facility] [id number] [facility] 2020-03-08 2020-03-08 Office Isidro Ruby 1.2.840.1 [id number] Methodi 12:36:03 16:19:47 Visit Go 72997.1.[address] 3.430.2.7 Hospit a .3.973878 l .8 2020-03-08 2020-03-08 Travel 1.2.840.1 1.2.491.329 [id number] Methodi 00:00:00 00:00:[address] 3.430.2.7 0.2.7.3.698 Ho spita .3.932969 084.8 l .8 2020-03-07 2020-03-07 Outpatient [facility] [id number] [facility] 2020-02-29 2020-03-01 Outpatient nullFlavo MNA [id number] Memoria 17:15:00 05:59:59 r Neurology 07 l [place] Ricardo 2020-02-21 2020-02-21 Outpatient [facility] [id number] [facility] 00[facility]:00 [facility] 2020-02-17 2020-02-17 Outpatient [facility] [id number] [facility] 00[facility]:00 [facility] Outpati ent Clinics 2020-02-12 2020-02-16 [facility] Shira Benedict 1.2.840.1 [id number] Methodi 07:45:00 12:40:00 Encounter Yesi Maldonado 42380.1.[address] 3.430.2.7 Hospit a .3.323361 l .8 2020-02-15 2020-02-15 Ambulatory nullFlavo MNA [id number] Memoria 14:15:00 14:15:00 Pre-Reg r Neurology 06 l [place] 2020-02-15 2020-02-15 Telephone Isidro Ruby 1.2.840.1 [id number] Methodi 00:00:00 00:00:[address] 3.430.2.7 Hospit a .3.897043 l .8 2020-02-13 2020-02-13 Orders Diogo Blandon 1.2.840.1 [id number] Methodi 00:00:00 00:00:[address] 3.430.2.7 Hospit a .3.554068 l .8 2020-02-11 2020-02-11 Telephone Isidro Ruby 1.2.840.1 [id number] Methodi 00:00:00 00:00:[address] 3.430.2.7 Hospit a .3.289083 l .8 2020-02-09 2020-02-09 Outpatient [facility] [id number] [facility] 00:[facility]:00 [facility] 2020-02-03 2020-02-08 [facility] Kim Guevara 1.2.840.1 [id number] Methodi 14:30:00 18:40:00 Encounter Aldo Pineda 20739.1.1 3 15 Michael Maddoxh 3.430.2.7 Hospita .3.645708 l .8 2020-02-07 2020-02-07 Telephone Ricky, 1.2.840.1 [id number] Methodi 00:00:00 00:00:[address] 3.430.2.7 Hospit a .3.355056 l .8 2020-02-03 2020-02-03 Telephone Ricky, 1.2.840.1 [id number] Methodi 00:00:00 00:00:[address] 3.430.2.7 Hospit a .3.402339 l .8 2020-01-17 2020-01-17 Outpatient [facility] [id number] [facility] 00:00:00 [facility] Outpati ent Clinics 2019-12-14 2019-12-14 [facility] [id number] 10:48:00 10:48:00 t [employer] [facility] Medicine l Medicine Outpati ent Clinics 2019-11-23 2019-11-23 [facility] [id number] 09:00:00 09:00:00 [employer] [facility] Medicine l Medicine Outpati ent Clinics 2019-11-23 2019-11-23 [facility] [id number] 08:05:00 08:05:00 t [facility] [employer] [facility] Medicine l Medicine Outpati ent Clinics 2019-10-15 2019-10-15 [facility] [id number] 08:44:00 08:44:00 t [facility] [facility] l Medicine Outpati ent Clinics 2019-09-07 2019-09-07 [facility] [id number] 11:56:00 11:56:00 [facility] Immunome Dole Tian [employer] [facility] Medicine Outpati ent Clinics 2019-08-13 2019-08-13 [facility] [id number] 10:20:00 10:20:00 t [employer] s - [facility] Medicine Medicine Outpati ent Clinics 2019-08-12 2019-08-12 [facility] [id number] 09:49:00 09:49:00 t [employer] s - Drive [facility] Medicine Outpati ent Clinics 2019-06-15 2019-06-15 [facility] [id number] 15:24:00 15:24:00 t [employer] s - Drive [facility] Medicine Outpati ent Clinics 2019-06-09 2019-06-09 [facility] [id number] 08:40:00 08:40:[address] [facility] [address] Elance s Be Here [facility] Medicine Outpati ent Clinics 2019-06-03 2019-06-03 [facility] [id number] 10:52:00 10:52:00 t [employer] [facility] Medicine Outpati ent Clinics 2019-05-28 2019-05-28 [facility] [id number] 16:20:00 16:20:00 t [employer] s [employer] [facility] Medicine Outpati ent Clinics 2019-05-21 2019-05-23 Outside nullFlavo MNA [id number] [facility] 20:44:00 05:59:59 Medical r Neurology 00 l Records Ean Silva 2019-04-28 2019-04-28 Ambulatory nullFlavo MNA [id number] [facility] 19:00:00 19:00:00 Pre-Reg r Neurology 05 l Ean Silva 2019-01-01 2019-01-01 [facility] [id number] 15:32:00 15:32:00 t [employer] - Drive [facility] Medicine Outpati ent Clinics 2018-12-31 2018-12-31 [facility] [id number] 09:55:00 09:55:00 t [employer] - Drive [facility] Medicine Outpati ent Clinics 2018-12-30 2018-12-30 [facility] [id number] 13:25:00 13:25:00 t [employer] [facility] Medicine Outpati ent Clinics 2018-12-30 2018-12-30 [facility] [id number] 08:00:00 08:00:00 t [employer] [facility] Medicine Outpati ent Clinics 2018-12-29 2018-12-29 [facility] [id number] 09:42:00 09:42:00 t [employer] [facility] Medicine Outpati ent Clinics 2018-12-23 2018-12-24 Outpatient nullFlavo MNA [id number] Memoria 18:15:00 04:59:59 r Neurology 04 l Ean Silva 2018-12-04 2018-12-04 [facility] [id number] 16:20:00 16:20:00 t [employer] [facility] Clin[facility] 2018-11-30 2018-11-30 [facility] [id number] [facility] 10:08:00 10:08:00 t Urgent Urgent Care L [facility] Out[facility] Clinics 2018-11-27 2018-11-28 Outpatient nullFlavo MNA [id number] [facility] 15:45:00 04:59:59 r Neurology 03 l Ean Silva 2018-11-27 2018-11-27 [facility] [id number] [facility] 13:00:00 13:00:00 t [employer] [facility] Clin[facility] 2018-10-29 2018-10-29 [facility] [id number] [facility] 10:40:00 10:40:00 t [place] [employer] [facility] Medicine Out[facility] ent Clinics 2018-10-16 2018-10-17 Outpatient nullFlavo MNA [id number] [facility] 14:00:00 04:59:59 r Neurology 02 l Ean Silva 2018-10-02 2018-10-03 Outpatient nullFlavo MNA [id number] [facility] 20:00:00 04:59:59 r Neurology 01 l Ean Silva 2018-10-01 2018-10-02 [id number] 04:59:59 r Neurology 00 [place] 2018-09-30 2018-09-30 [facility] [id number] [facility] 13:00:00 13:00:00 t [employer] [facility] Clin[facility] 2018-08-31 2018-08-31 [facility] [id number] [facility] 11:00:00 11:00:00 t [employer] [facility] Medicine Outpati ent Clinics 2018-07-27 2018-07-27 [facility] [id number] [facility] 13:54:00 13:54:00 t [employer] [facility] Medicine Outpati ent Clinics 2018-07-23 2018-07-23 [facility] [id number] 08:53:00 08:53:00 t [employer]rid[employer] [facility] Medicine Outpati ent Clinics 2018-07-23 2018-07-23 [facility] [id number] 08:15:00 08:15:00 t [employer] [facility] Medicine Outpati ent Clinics 2018-06-22 2018-06-22 [facility] [id number] 10:30:00 10:30:00 t [employer] [facility] Medicine Outpati ent Clinics 2018-05-04 2018-05-04 [facility] [id number] 12:00:00 12:00:00 t [employer] [facility] Medicine Outpati ent Clinics 2018-04-02 2018-04-02 [facility] [id number] 09:00:00 09:00:00 t [employer] [facility] Medicine Outpati ent Clinics Results Test Description Test Time Test Comments Results Result Comments Source TMP Interpretation Antibody Screen Negative 2021-03-31 02:35 :52 Test Item Value Reference Range Interpretation Comme nts TMP At the present VALERIE Auto time, patient OTONIELRosauraa leon by: VALERIE FREDERICK,Dictated Date/Time: Neg plasma shows no 03.30.2021 2 0:35 PM ADDRESSOGRAPH OPERATOR Transcribed Date/Time: 03.30.2021 ABSC evidence of RBC 20:35 PM ADDRESSOGRAPH OPERATOR Electronically Signed By: VALERIE FREDERICK, on Interp alloantibodies. 03.30.2021 2 0:35 PM (test code = 7535) MD AguirreAntibody Qkzisp0064-14-87 21:46:12 Test Item Value Reference Range Interpretation Comments ABSC. (test code = 890-4) Negative ABSC MD AguirreSvqcoupmQGFCs6054-23-30 21:46:11 Test Item Value Reference Range Interpretation Comments ABORh. (test code = 882-1) A POS MD AguirreClot Expiration Honl4434-98-95 21:45:59 Test Item Value Reference Range Interpretation Comments T & S Expiration (test code = 04/02/2021 5318) MD AguirreMD t(15;17) PML-LEN Quantitative PCR Collection, Rovio7185-46-33 19:40:53 Test Item Value Reference Range Interpretation Comments Molecular Diagnostics (Received) (test Yes code = 8400) MD AguirreFractionated Ihdaypzme9420-26-04 18:26:21 Test Item Value Reference Range Interpretation [...] 28 g/L. [Automate d message] The system [employer] generated this result transmitted ref erence range: [...] are outside rep ortable range MD AguirreGlucose, Bggprh7966-99-32 18:26:19 Test Item Value Reference Range Interpretation Comments Glucose Random (test 62 mg/dL 70-199 L Effecti ve 11/15/15, code = 9360) the glucose reference intervals have been updated ba sed on [place] Diabetes Association guidelines (Standards of Medical Care [...] Track Lab Interpretation Abnormal (test code = 38702-1) MD AguirrePhosphorus Npzrx3982-15-68 18:26:17 Test Item Value Reference Range Interpretation Comments Phosphorus (test code = 3.8 mg/dL 2.5-4.5 6817) HAL (test code = HAL) Schedule in Fast Track MD AguirreGlomerular Filtration Gjjd3713-56-35 18:26:16 Test Item Value Reference Range Interpretation [...] interpr et this result as normal/abnormal . HAL (test code Schedule in Fast = HAL) Track MD AguirreRnknmjgpGXE0565-14-99 18:26:15 Test Item Value Reference Range Interpretation [...] in Fast = HAL) Track MD AguirreUric Qtep3516-35-48 18:26:14 Test Item Value Reference Range Interpretation Comments Uric Acid (test code = 3.4 mg/dL 2.4-5.7 7955) HAL (test code = HAL) Schedule in Fast Track MD AguirreCalcium Cvmwp3784-84-43 18:26:13 Test Item Value Reference Range Interpretation Comments Calcium Lvl (test code 8.8 mg/dL 8.4-10.2 = 5258) HAL (test code = HAL) Schedule in Fast Track MD AguirreTotal Htkhtoj6724-02-09 18:26:12 Test Item Value Reference Range Interpretation Comments Total Protein (test 6.8 g/dL 6.4-8.3 code = 7649) HAL (test code = HAL) Schedule in Fast Track MD AguirreAlbumin Nnlrv0824-21-41 18:26:11 Test Item Value Reference Range Interpretation Comments Albumin Lvl (test 4.5 See_Comment [Automate d message] code = 4763) The system [employer] h generated this result transmit leon reference range : 3.5 - 5.2 gm/dL. Th e reference range was not used to interpret this result as normal/abnormal . HAL (test code = Schedule in Fast HAL) Track MD AguirreMagnesium Yyksp8979-19-78 18:26:10 Test Item Value Reference Range Interpretation Comments Magnesium (test code = 2.2 mg/dL 1.6-2.6 6359) HAL (test code = HAL) Schedule in Fast Track MD AguirreElectrolyte Mambw6110-21-12 18:26:09 Test Item Value Reference Range Interpretation [...] Chloride (test 104 See_Comment [Automated code = 4819) message] The sy stem which generated this result transmitted reference range : 98 - 107 mEq/L. Th e reference range was not used to interpret this result as normal/abnormal . CO2 (test code = 27 See_Comment [Automated 9325) message] The sy stem which generated [...] Schedule in Fast HAL) Track MD AguirreAlkaline Chwyhdoeqya4067-68-30 18:26:08 Test Item Value Reference Range Interpretation Comments Alk Phos (test code = 69 U/L 35-104 4768) HAL (test code = HAL) Schedule in Fast Track MD AguirreAlanine Zecsmaamydcqcano0617-08-76 18:26:07 Test Item Value Reference Range Interpretation Comments ALT (test code 17 U/L See_Comment [Automated m essage] = 9315) The system [employer] h generated this result transmitted ref erence range: <=33. Th e reference range was not used to int erpret this result as normal/abnormal . HAL (test code Schedule in Fast = HAL) Track MD Aguirre.Serum Yukgapcywm0679-69-66 18:26:06 Test Item Value Reference Range Interpretation Comments Creatinine (test code = 0.95 mg/dL 0.51-0.95 5399) HAL (test code = HAL) Schedule in Fast Track MD AguirreLcpbfcajFJC7370-38-70 18:26:04 Test Item Value Reference Range Interpretation Comments BUN (test code = 5055) 12 mg/dL 6-23 MD AguirreMmfqowvzWvqcrbwyzdii6842-42-61 17:28:47 Test Item Value Reference Range Interpretation Comments Neutrophil % (test 75.3 % 42.0-66.0 H code = 64990-1) Lymphocyte % (test 16.8 % 24.0-44.0 L code = 737-7) Monocyte % (test code 6.3 % 2.0-7.0 = 744-3) Eosinophil % (test 0.8 % 1.0-4.0 L code = 713-8) Basophil % (test code 0.5 % 0.0-1.0 = 707-0) IGRE % (test code = 0.3 % 0.0-0.4 IGRE % c ount 34993-3) includes Metamyelocytes, Myelocytes, and Promyelocytes. Neutrophil Abs (test 7.10 K/uL 1.70-7.30 code = 753-4) Lymphocyte Abs (test 1.59 K/uL 1.00-4.80 code = 732-8) Monocyte Abs (test 0.59 K/uL 0.08-0.70 code = 743-5) Eosinophil Abs (test 0.08 K/uL 0.04-0.40 code = 712-0) Basophil Abs (test 0.05 K/uL 0.00-0.10 code = 705-4) IG Abs (test code = 0.03 K/uL 0.00-0.04 95072-3) HAL (test code = HAL) Schedule in Fast Track Lab Interpretation Abnormal (test code = 41036-7) MD Aguirre.HQC4889-95-29 17:28:40 Test Item Value Reference Range Interpretation Comments WBC (test code = 9.4 K/uL 4.0-11.0 6690-2) RBC (test code = 4.53 See_Comment [Automated 789-8) message] The sy stem which generated this result transmitted reference range : 4.00 - 5.50 M/u L. The reference r gee was not used to interpret this result as normal/abnormal . Hgb (test code = 13.0 See_Comment [Automated 348-7) message] The sy stem which generated this [...] RDW-SD (test code = 40.1 fL 35.1-46.3 62248-1) RDW-CV (test code = 12.3 % 12.0-15.5 [...] differenti al. [Automated mess age] The system [employer] h generated this result transmit leon reference range : <=0.0. The reference range was not used to interpret this result as normal/abnormal . HAL (test code = HAL) Schedule in Fast Track Lab Interpretation Abnormal (test code = 89518-6) MD AguirrePOCT GRP A STREP (MOLECULAR)2021-03-16 16:11:00 Test Item Value Reference Range Interpretation Comments POCT GP A STREP (test negative Negative - code = 01875-4) Negative HAL (test code = HAL) accurate development and interpretation of all internal controls Lab Interpretation Normal (test code = 70114-8) [facility] OGUGYUOB9986-93-25 02:55:38 No acute abdominopelvic process. Preliminary Report [...] reviewed this study and agree with theabove report.[facility] CHEST 1 [id number] 02:48:05 No radiographic evidence of acute cardiopulmonary [...] reviewed this study and agree with theabove report.[facility] AllenTROPONIN L9215-81-33 02:05:12 Test Item Value Reference Interpretation Comments Range TROPONIN I (test 0.014 ng/mL See_Comment [Automated code = 8037276399) message] The system which generated this result [...] biotin. Lab Interpretation Normal (test code = 03028-6) [facility]. METABOLIC PANEL (87157)2020-12-05 01:53:53 Test Item Value Reference Range Interpretation Comments NA (test code = 139 mmol/L 135-145 9037286271) K (test code = 3.7 mmol/L 3.5-5.0 1748449746) CL (test code = 109 mmol/L 98-108 H 0246993532) CO2 TOTAL (test code = 22 mmol/L 23-31 L 3997008021) AGAP (test code = 2-16 2238579888) BUN (test code = 17 mg/dL 7-23 4124887604) GLUCOSE (test code = 99 mg/dL 70-110 7076530158) CREATININE (test code = 1.14 mg/dL 0.50-1.04 H 8838228412) TOTAL BILI (test code = 0.3 mg/dL 0.1-1.9 9389102002) CALCIUM (test code = 8.7 mg/dL 8.6-10.6 3346412710) T PROTEIN (test code = 7.4 g/dL 6.3-8.2 2510474433) ALBUMIN (test code = 4.7 g/dL 3.5-5.0 3992429124) ALK PHOS (test code = 62 U/L 34-122 7946291329) ALTv (test code = 16 U/L 5-35 1742-6) AST(SGOT) (test code = 18 U/L 13-40 8702979898) eGFR (test code = mL/min/1.73m2 4205619234) HAL (test code = HAL) Association of [...] tests). Lab Interpretation Abnormal (test code = 98870-4) [facility] 01:53:12 Test Item Value Reference Range Interpretation Comments LIPASE (test code = 5628529191) 101 U/L 0-220 Lab Interpretation (test code = Normal 15289-1) [facility]INALYSIS2021-08-17 01:52:17 Test Item Value Reference Range Interpretation Comments APPEARANCE (test code = Cloudy Clear A 1340255722) COLOR (test code = Yellow Yellow 7815883500) PH (test code = 4.8-8.0 2140024114) SP GRAVITY (test code = 1.003-1.030 0246018781) GLU U QUAL (test code = Normal Normal 1366396814) BLOOD (test code = Negative Negative 9357468122) KETONES (test code = Negative Negative 0875288420) PROTEIN (test code = Negative Negative 2887-8) UROBILIN (test code = 4.0 mg/dL Normal A 9585812838) BILIRUBIN (test code = Negative Negative 1003592967) NITRITE (test code = Negative Negative 9291611953) LEUK REKHA (test code = Negative Negative 5434928487) RBC/HPF (test code = See_Comment [Autom ated message] 6588836577) The system [employer] generated this result transmit leon reference range : 0 - 3 HPF. The refe rence range was not u sed to interpret th is result as normal/abnormal . WBC/HPF (test code = <1 See_Comment [Autom ated message] 5721236015) The system whic h generated this result transmit leon reference range : 0 - 5 HPF. The refe rence range was not u sed to interpret th is result as normal/abnormal . BACTERIA (test code = Many Negative A 5142283372) MUCOUS (test code = Slight Negative LPF A 0915458308) AMORPHOUS (test code = Moderate Rare HPF A 2525199692) SQ EPITH (test code = HPF 2620765367) Lab Interpretation (test Abnormal code = 83737-8) [facility] WITH YEIH3982-25-32 01:42:11 Test Item Value Reference Range Interpretation [...] RDW-SD (test code = 41.1 fL 39.0-49.9 84090-2) RDW-CV (test code = 13.5 % 12.0-15.5 788-0) PLT (test code = See_Comment [Automated 777-3) message] The sy stem which generated this result transmitted reference range : 166 - 358 10*3/ ?L. The reference r gee was not used to interpret this result as normal/abnormal . MPV (test code = 12.3 fL 9.5-12.9 98932-4) NRBC/100 WBC (test See_Comment [Automat ed code = 6493053584) message] The system which generated this result transmitted reference range : 0.0 - 10.0 /100 WBCs. The refer ence range was not u sed to interpret th is result as normal/abnormal . NRBC x10^3 (test code <0.01 See_Comment [Auto mated = 0981094084) message] The s ystem which generated this result transmitted reference range : 10*3/?L. The reference range was not used to interpret this result as normal/abnormal . GRAN MAT (NEUT) % 54.5 % (test code = 770-8) IMM GRAN % (test code 0.40 % = 5871947893) LYMPH % (test code = 33.6 % 736-9) MONO % (test code = 8.5 % 5905-5) EOS % (test code = 2.4 % 713-8) BASO % (test code = 0.6 % 706-2) GRAN MAT x10^3(ANC) 2.69 10*3/uL 1.88-7.09 (test code = 8977946757) IMM GRAN x10^3 (test <0.03 0.00-0.06 code = 8726243280) LYMPH x10^3 (test code 1.66 10*3/uL 1.32-3.29 = 731-0) MONO x10^3 (test code 0.42 10*3/uL 0.33-0.92 = 742-7) EOS x10^3 (test code = 0.12 10*3/uL 0.03-0.39 711-2) BASO x10^3 (test code 0.03 10*3/uL 0.01-0.07 = 704-7) Lab Interpretation Abnormal (test code = 06007-4) [facility] UVNP1324-95-90 01:31:00 Test Item Value Reference Range Interpretation Comments POCT PREG (test code = 1605) negative On board controls acceptable with present C Line (test code = 3574) POCT PREG LOT # (test code = 3575) [id number] POCT PREG TEST DATE (test 04/20/22 code = 3576) Lab Interpretation (test code = Normal 94415-1) [facility] GRP A STREP (MOLECULAR)2020-12-04 00:43:00 Test Item Value Reference Range Interpretation Comments POCT GP A STREP (test code = Negative Negative - Negative 44875-7) Lab Interpretation (test code = Normal 63875-3) [facility] GRP A STREP (MOLECULAR)2020-12-04 00:43:00 Test Item Value Reference Range Interpretation Comments POCT GP A STREP (test code = Negative Negative - Negative 75345-6) Lab Interpretation (test code = Normal 84475-3) [facility] Thoracic Spine W Pnjmdsla9429-96-38 23:13:41EXAMINATION: MRI THORACIC SPINE W CONTRAST CLINICAL [...] significant spinal canal or neural foraminal stenosis.[id number]_PS02 [facility] Cervical Spine W Khhrquxj8278-67-70 23:08:17EXAMINATION: MRI CERVICAL SPINE W CONTRAST CLINICAL [...] spine abnormality identified. No enhancing lesion identified. [facility]-[id number] Interface, Radiology Results 06/06/2020 5:11 PM CST [...] cervical spine abnormality identified. No enhancing lesion identified.[facility]-[id number] Hermann [facility]land Hospital Brain W Wo Bmlrtitf6367-62-77 22:41:58EXAMINATION: MRI BRAIN W WO CONTRAST CLINICAL [...] other acute intracranial abnormality.[id number]_PS02[facility]CT [facility] Wo Qoqqxjji6647-44-22 18:08:03EXAMINATION: CT CHEST WO CONTRAST HISTORY: COVID-19 [...] this is compatible with mild Covid pneumonia. [facility]-[id number] Interface, Radiology Results - 06/06/2020 12:11 PM [...] findings, this is compatible with mild Covid pneumonia.[facility]3PA17652PVDdflffqguDallas Regional Medical CenterUrine yxmbiae4919-34-55 18:51:05 Test Item Value Reference Range Interpretation Comments Urine culture (test SEE COMMENT Bacteriu kieran screen code = 2673042) negative. [facility] CampusOCT, Optic Nerve - NQ8259-81-14 19:34:42Isidro Ruby MD - 05/24/2020 5:54 PM CSTFormatting of this note might be different from the origi nal.[facility] CampusAutomated Visual Field, Extended - LH7777-55-75 19:34:39 Isidro Ruby MD - 05/24/2020 5:54 PM CST [facility] in 1 Mcqlafm1359-19-51 16:07:52 Test Item Value Reference Range Interpretation Comments SUPPLIER NAME (test XMED Oxygen and code = 6415) Medical SUPPLIER PHONE (test [phone] code = 6416) ORDER STATUS (test code Delivery Successful = 6417) DELIVERY NOTE (test code = 6419) REQUESTED DELIVEY DATE 02/16/2020 (test code = 6420) ITEM DESCRIPTION (test 3 in 1 Commode Qty : 1 code = 6423) ACTUAL DELIVERY DATE 02/16/2020 (test code = 6422) [facility] General Osqbsnt1748-84-62 18:23:11Electromyogram and NCS ReportFIRSTHEALTH [facility] Neurological Actzaruwv[address]Jyx[address],[place], [place]T: F : Patient: Snow Argueta Physician: [...] Site: Wrist Pk Lat (ms) Amp (uV)Stim Kvlj2lw dig 2.5 21.0 Sensory Nerve Study Right [...] independent left and right full field monocularstimulation. MciR407 absolute latencies were 99.8 msec and 102.6 msec following independent left andright eye stimulation. All interpeak latencies and waveform morphologies were normal. ImpressionThisis a normal study. ICD10 Code/Diagnosis: P60Otvrgxbrl HospitalMRI Lumbar Spine W Wo Xegkccsm4722-99-10 16:16:59EXAMINATION: MRI LUMBAR SPINE W WO CONTRAST [...] on the right.Recommend correlation to radiculopathy distribution. [facility] [place]-[id number] Interface, Radiology Results Incoming - 02/13/2020 11:20 [...] right. Recommend correlation to radiculopathy distribution.[facility]-[id number] Hermann Pearland Hospital Brain Venogram 2020-02-13 14:57:03EXAM: MRI BRAIN VENOGRAM CLINICAL HISTORY: Headache chronic normal neuro exam TECHNIQUE: Head MRvenogram using 2D ostl-ea-uetzbp technique with multi-planar MIP and 3D reconstruction. [...] neuro examTECHNIQUE: Head MR venogram using 2D anis-rj-xsiapu technique with multi-planar MIP and 3D reconstruction.COMPARISON: [...] definite evidence of dural sinus venous thrombosis.[id number]_PS01[facility] HospitalVENIPNOVANT [facility] NEED PHYS SKILL,DX [place] EV7328-87-51 15:39:11CFamilia hickey RN 02/08/2020 10:40 AMMidline Date/Time: [...] Flat Vessel Size (mm): 5 Indication: Known skilled nursing IV therapy Location: Left basilic Device Type:Non-valved Catheter Lumen(s): Single lumen Catheter size: 3 Fr Catheter to vein ratio: 24%MidLine Characteristics: Catheter Brand: THOMAS POST MIDLINE Internal Catheter Length (cm): 12 TotalCatheter Length (cm): 12 Catheter Lot Number: [id number] Catheter Expiration Date: 2Procedure details: Landmarks identified: [...] tolerance of procedure: Tolerated well, no immediate complicationsMount Sinai Health SystemodiBrigham City Community Hospital duplex venous upper xxqwckyql7006-32-81 03:03:00 Vascular Ultrasound Laboratory Upper Extremity Venous Report [address] [place] [address] Pat.Name: SNOW ARGUETA Pat.ID: [id number] .Date: 02/07/2020 Refer.MD: MICHAEL MADDOX MD Exam Time: 4:33:00 PM Frances betancur Type:UE Venous Height: 66in Weight: 220lb BSA: 2.08 m2 Age: 7 1985,34Y Sex: FEMALE Sonogrphr: Ryan Torres, RVT Pat. Stat.:Inpatient Room: YQ60-4695-R Tape Vol: HV, CPT - 4: 99305 Echo Event ID:[id number] Order ID: [id number] Reason for Study:Right arm pain and swelling. [...] Si gned 02/07/2020 10:03 PMChaz Obrien MD, RPVIInterlegacy health, Radiology Results In - 02/07/2020 10:03 PM CDTFormatting of thisnote might be different from the original. [facility]ascular Ultrasound Laboratory Upper Extremity Venous Report [address] [place] [address] Pat.Name: SNOW ARGUETA Pat.ID: [id number] .Date: 02/07/2020 Refer.MD: MICHAEL MADDOX MD Exam Time: 4:33:00 PM Study Type:UE Venous Height: 66in Weight: 220lb BSA: 2.08 m2 Age: 7 1985,34Y Sex: FEMALE Sonogrphr: Ryan Torres RVT Pat. Stat.:Inpatient Room: [address] Tape Vol: , [facility] - 4: [address]23 Echo Event ID:[id number] Order ID: [id number] Reason for Study:Right arm pain and swelling. [...] FINDINGS: Signed 02/07/2020 10:03 Yessi Obrien MD, KAMRYNVIYarsanism HospitalFlow cytometry azkgecnuhw4977-65-63 14:52:18 Test Item Value Reference Range Interpretation Comments Case number (test code = [id number]) Flow cytometry evaluation See link below for (test code = 0634661) PDF Lab Report [facility] HospitalVENIPUNC NEED PHYS SKILL,DX OR [id number] 14:18:07Javier Borjas RN 02/07/2020 9:21 AMMidline Date/Time: [...] Catheter Length (cm): 12 Catheter Lot Number: [id number] Catheter Expiration Date: 1Procedure details: Landmarks identified: [...] tolerance of procedure: Tolerated well, no immediate complicationsThe Hospitals Of Providence [facility] City CampusEC 12 vgzy7294-20-51 17:49:19 Test Item Value Reference Range Interpretation Comments Ventricular rate (test code = 253) Atrial rate (test code = 255) CA interval (test code = 266) QRSD interval [...] of 04-FEB-2020 04:50,-No significant change was found- [facility] CampusXR Chest 1 Vw Knciwtzb1378-34-43 03:09:52EXAMINATION: XR CHEST 1 VW PORTABLE CLINICAL HISTORY: 34 years Female chest pressure on exertion COMPARISON: None. IMPRESSION: No acute cardiopulmonary disease. FINDINGS: The cardiomediastinal silhouette, lungs, and regional skeletal structures are within normal limits for age. [facility] [place]-[id number] Interface, Radiology Results Incoming - 02/05/2020 10:12 PM CDT EXAMINATION: XR CHEST 1 VW PORTABLECLINICAL HISTORY: 34 years Female chest pressure on exertionCOMPARISON: None.IMPRESSION:No acute cardiopulmonary disease.FINDINGS:The cardiomediastinal silhouette, lungs, and regional skeletal structures are within normal limits for age. [facility]-[id number] HospitalCytology (non-gynecological) request 2020-02-04 23:15:16 Test Item Value Reference Range Interpretation Comments Case number (test code = [id number]) Cytology See link below for (non-gynecological) PDF Lab Report report (test code = 1178) Result status (test code This is Final Report = [id number]) for [id number] [facility] CampusEE (routine)2020-02-04 15:51:25EEG AWAKE AND ASLEEP Date of Service: 02/04/2020 Awake Recording: The occipital dominant rhythm is 10-11 Hz. 18-22 Hz activity is present in all regions. Sleep Recording: No epileptiform activity was recorded. Hyperventilation: No abnormality elicited. Photic Stimulation: No abnormality elicited. Impression The background activity is within the range of normal variation. No lateralized or epileptiform activity was recorded. ICD-10 Code: N723Fnctcykzl HospitalIR Lumbar Puncture by Radiology 2020-02-04 15:23:15EXAMINATION: [...] Opening pressure was 21 cm of water. [facility]-[id number] [facility], Radiology Results - 02/04/2020 10:26 AM [...] pressure was 21 cm of water.[facility]-[id number] Hermann [facility]land Hospital Brain & Orbit W Wo Ikjadqku1484-12-90 03:36:27EXAMINATION: MRI BRAIN & ORBIT W WO [...] Unremarkable MRI of the brain and orbits. [facility]- [id number] Interface, Radiology Results 02/03/2020 10:39 PM CDT [...] MRI of the brain and orbits.[facility]-[id number] Health [facility] Head Wo Vrhslowg2596-77-66 21:17:18 EXAM: CT HEAD WO CONTRAST CLINICAL [...] structures are intact.IMPRESSION:No CT evidencefor acute intracranial abnormality.[id number]_PS01[facility]
[2021-05-15 18:59] LABS: Urine Blood Trace-lysed (Negative); Urine Glucose Negative (Negative); Urine Protein Negative (Negative); Urine Specific Gravity >=1.030 (1.005-1.030); Urine pH 5.5 (5.0-7.0)
[2021-05-15] MEDS ORDERED: KETOROLAC 30 MG/ML INJ ONE (19:35)
[2021-05-15 19:42] LABS: Hematocrit 36.4 % (36.0-45.0); MPV 9.9 fL (7.6-11.3); RBC Red Blood Cell Count 4.32 M/uL (3.86-4.86)
[2021-05-15 19:46] LABS: Urine Specific Gravity/Preg >1.030 (1.005-1.030)
[2021-05-15 20:02] LABS: Urine Bacteria 20-50 /HPF (<20); Urine RBC <5 /HPF (NONE SEEN); Urine Urothelial Cells <5 /HPF (NONE SEEN)
--- NOTE | 2021-05-15 21:07 | RAD REPORT ---
EXAM DESCRIPTION: CTAbdomen Pelvis W Contrast - 05/15/2021 8:52 pm CLINICAL HISTORY: Abdominal pain. ABD PAIN COMPARISON: Abdomen Pelvis W Contrast dated 05/11/2021; Abdomen Pelvis W Contrast dated 10/11/2020 ; Abdomen Pelvis W Contrast dated 08/15/2020; Abdomen Pelvis W Contrast dated 07/05/2020 TECHNIQUE: Biphasic CT imaging of the abdomen and pelvis was performed with 100 ml non-ionic IV cont rast. All CT scans are performed using dose optimization technique as appropriate and may include automated exposure control or mA/KV adjustment according to patient size. FINDINGS: The lung bases are clear.Cholecystectomy. The liver, spleen, pancreas, adrenal glands and kidneys are within normal limits. No bowel obstruction, free air, intra-abdominal free fluid or abscess. Appendectomy. No evidence of significant lymphadenopathy. No suspicious bony findings. Trace pelvic free fluid. IMPRESSION: No acute intra-abdominal or pelvic finding.
[2021-05-15] MEDS ORDERED: MORPHINE 4 MG/ML SYR ONE (21:24)
[2021-05-15 21:55] LABS: Albumin 3.9 g/dL (3.4-5.0); Bilirubin Direct 0.1 mg/dL (0-0.2); Bilirubin Total 0.5 mg/dL (0.2-1.0); Potassium 3.9 mmol/L (3.5-5.1); Protein, Total 7.3 g/dL (6.4-8.2)
--- NOTE | 2021-05-15 22:22 | ER ---
Nurse's Notes [facility] [place] Name: Snow Argueta Age: 35 yrs Sex: Female : 1985 Arrival Date: 05/15/2021 Time: 17:44 Bed 6 Private MD: Soco Savage Diagnosis: Lower abdominal pain, unspecified;Bilateral flank pain Presentation: 05/15 17:51 Chief complaint: Patient states: Pt presents to ed for c/o flank pain, abdominal pain ab2 and fever. Pt was here and diagnosed with uti and given 2 abx with no relief so her doctor told her to come to the ED to be re-evaluated. Coronavirus screen: Vaccine status: Patient reports being unvaccinated. Client denies travel out of the [place] in the last 14 days. At this time, the client does not indicate any symptoms associated with coronavirus-19. Ebola Screen: Patient negative for fever greater than or equal to 101.5 degrees Fahrenheit, and additional compatible Ebola Virus Disease symptoms Patient denies exposure to infectious person. Patient denies travel to an Ebola-affected area in the 21 days before illness onset. No symptoms or risks identified at this time. Initial Sepsis Screen: Does the patient meet any 2 criteria? No. Patient's initial sepsis screen is negative. Does the patient have a suspected source of infection? No. Patient's initial sepsis screen is negative. Risk Assessment: Do you want to hurt yourself or someone else? Patient reports no desire to harm self or others. Onset of symptoms is unknown. 17:51 Method Of Arrival: Ambulatory ab2 17:51 Acuity: LEONEL 3 ab2 Triage Assessment: 17:55 General: Appears in no apparent distress. uncomfortable, Behavior is calm, cooperative, ab2 appropriate for age. Pain: Complains of pain in back and abdomen. Historical: - Allergies: 17:54 Cephalexin; ab2 17:54 Zofran; ab2 17:54 Latex, Natural Rubber; ab2 17:54 Gadavist; ab2 17:54 Feraheme (Anaphylaxis); ab2 - Home Meds: 17:54 Eliquis 5 mg Oral tab 1 tab 2 times per day [Active]; hydroxychloroquine 100 mg Oral 1 ab2 tab 2 times per day [Active]; omeprazole 40 mg Oral cpDR 1 cap once daily [Active]; Vyvanse 50 mg Oral tab 1 cap once daily [Active]; levothyroxine 75 mcg tab 1 cap once daily [Active]; Trokendi XR 200 mg Oral cp24 1 cap twice a day [Active]; - PMHx: 17:54 ADD/ADHD; Blood Clot on R arm; Endometrosis; epilepsy; GERD; Hypothyroidism; Leukemia; ab2 Lupus erythematosus; Pancreatitis; - PSHx: 17:54 Appendectomy; Cholecystectomy; Ligation of fallopian tube; ab2 - Immunization history:: Adult Immunizations up to date. - Social history:: Smoking status: Patient denies any tobacco usage or history of. Screenin:55 Abuse screen: Denies threats or abuse. Denies injuries from another. Nutritional ab2 screening: No deficits noted. Tuberculosis screening: No symptoms or risk factors identified. Fall Risk None identified. Assessment: 19:28 General: Appears uncomfortable, Behavior is calm, cooperative. Pain: Complains of pain as6 in left flank and right flank. Neuro: Level of Consciousness is awake, alert, obeys commands, Oriented to person, place, time, situation. Cardiovascular: Capillary refill < 3 seconds Patient's skin is warm and dry. Respiratory: Airway is patent Trachea midline Respiratory effort is even, unlabored, Respiratory pattern is regular, symmetrical. GI: Reports lower abdominal pain. : Reports urinary frequency. 22:41 General: Reports " My pain is still there, but I guess I just need to continue the tw5 meds". 22:42 Pain: Complains of pain in low back area. tw5 Vital Signs: 17:51 BP 135 / 83; Pulse 101; Resp 17; Temp 99.0(T); Pulse Ox 98% on R/A; Weight 76.2 kg; ab2 Height 5 ft. 6 in. (167.64 cm); Pain 10/10; 19:27 BP 101 / 75; Pulse 85; Resp 18 S; Pulse Ox 100% on R/A; as6 20:36 BP 117 / 80; Pulse 79; Resp 18 S; Pulse Ox 100% on R/A; as6 21:25 BP 112 / 77; Pulse 82; Resp 16 S; Pulse Ox 99% on R/A; as6 22:41 BP 117 / 87; Pulse 71; Resp 14; Pulse Ox 98% on R/A; Pain 7/10; tw5 17:51 Body Mass Index 27.12 (76.20 kg, 167.64 cm) ab2 ED Course: 17:44 Patient arrived in ED. am2 17:44 Soco Savage MD is Private Physician. am2 17:49 Sudha Hinkle FNP-C is [facility]. kb 17:49 Roxie Tsai MD is Attending Physician. kb 17:54 Triage completed. ab2 17:55 Arm band placed on right wrist. ab2 18:58 Urine Microscopic Only Sent. jh6 19:17 Chan Veras, RN is Primary Nurse. as6 19:29 Placed in gown. Bed in low position. Call light in reach. Side rails up X 1. Pulse ox as6 on. NIBP on. Warm blanket given. 19:29 Inserted saline lock: 20 gauge in right antecubital area, using aseptic technique. as6 Blood collected. 20:16 Urine Culture Sent. tw5 20:53 CT Abd/Pelvis - IV Contrast Only In Process Unspecified. EDMS 22:42 No provider procedures requiring assistance completed. IV discontinued, intact, tw5 bleeding controlled, No redness/swelling at site. Pressure dressing applied. Administered Medications: 19:37 Drug: Ketorolac 15 mg Route: IVP; Site: right antecubital; as6 22:43 Follow up: Response: No adverse reaction; Pain is decreased; RASS: Alert and Calm (0) tw5 21:25 Drug: morphine 4 mg Route: IVP; Site: right antecubital; as6 22:43 Follow up: Response: No adverse reaction; Pain is decreased; RASS: Alert and Calm (0) tw5 Outcome: 22:21 Discharge ordered by . kb 22:44 Discharged to home ambulatory. tw5 22:44 Condition: good 22:44 Discharge instructions given to patient, Instructed on discharge instructions, follow up and referral plans. Demonstrated understanding of instructions, follow-up care. 22:44 Patient left the ED. tw5 Signatures: Dispatcher [employer] EDMS Sudha Hinkle FNP-C FNP-Ckb Moreno, Amanda am2 Maisha Johnson tw5 Chan Veras RN RN as6 Liz Arana RN RN 6 Yomi Galindo ab2 Corrections: (The following items were deleted from the chart) 22:42 22:41 BP 117 / 87; Pulse 71bpm; Resp 14bpm; Pulse Ox 98% RA; tw5 tw5
--- NOTE | 2021-05-15 22:22 | EDPHYS ---
Physician Documentation [facility] Name: Snow Argueta Age: 35 yrs Sex: Female : 1985 Arrival Date: 05/15/2021 Time: 17:44 Bed 6 Private MD: Soco Savage ED Physician Roxie Tsai HPI: 05/15 18:59 This 35 yrs old Female presents to ER via Ambulatory with complaints of Flank kb Pain, Dizziness, Fever. 18:59 The patient complains of pain in the left flank. The pain radiates to the abdomen. kb Onset: The symptoms/episode began/occurred 6 day(s) ago. Modifying factors: The symptoms are alleviated by nothing. the symptoms are aggravated by nothing. Associated signs and symptoms: Pertinent positives: nausea, Pertinent negatives: diarrhea, dizziness, dysuria, fever, urinary frequency, headache, hematuria, pain radiating to the lower extremities, vomiting. Severity of pain: At its worst the pain was moderate severe in the emergency department the pain is unchanged. The patient has not experienced similar symptoms in the past. The patient has not recently seen a physician. Historical: - Allergies: 17:54 Cephalexin; ab2 17:54 Zofran; ab2 17:54 Latex, Natural Rubber; ab2 17:54 Gadavist; ab2 17:54 Feraheme (Anaphylaxis); ab2 - Home Meds: 17:54 Eliquis 5 mg Oral tab 1 tab 2 times per day [Active]; hydroxychloroquine 100 mg Oral 1 ab2 tab 2 times per day [Active]; omeprazole 40 mg Oral cpDR 1 cap once daily [Active]; Vyvanse 50 mg Oral tab 1 cap once daily [Active]; levothyroxine 75 mcg tab 1 cap once daily [Active]; Trokendi XR 200 mg Oral cp24 1 cap twice a day [Active]; - PMHx: 17:54 ADD/ADHD; Blood Clot on R arm; Endometrosis; epilepsy; GERD; Hypothyroidism; Leukemia; ab2 Lupus erythematosus; Pancreatitis; - PSHx: 17:54 Appendectomy; Cholecystectomy; Ligation of fallopian tube; ab2 - Immunization history:: Adult Immunizations up to date. - Social history:: Smoking status: Patient denies any tobacco usage or history of. ROS: 18:58 Respiratory: Negative for shortness of breath, cough, wheezing, and pleuritic chest kb pain. 18:58 Back: Positive for flank pain, bilaterally. 18:58 All other systems are negative. 21:05 Constitutional: Positive for fever. kb 21:05 Abdomen/GI: Positive for abdominal pain. Exam: 18:58 Constitutional: This is a well developed, well nourished patient who is awake, alert, kb and in no acute distress. Head/Face: Normocephalic, atraumatic. ENT: Moist Mucous membranes Respiratory: Respirations even and unlabored. No increased work of breathing. Talking in full sentences Skin: Warm, dry with normal turgor. Normal color. MS/ Extremity: Pulses equal, no cyanosis. Neurovascular intact. Full, normal range of motion. Neuro: Awake and alert, GCS 15, oriented to person, place, time, and situation. Moves all extremities. Normal gait. Psych: Awake, alert, with orientation to person, place and time. Behavior, mood, and affect are within normal limits. 18:58 Back: CVA tenderness, that is mild, that is moderate, is noted bilaterally. 21:04 Abdomen/GI: Inspection: abdomen appears normal, Bowel sounds: normal, in all quadrants, kb Palpation: soft, in all quadrants, moderate abdominal tenderness, in the right lower quadrant and left lower quadrant. Vital Signs: 17:51 BP 135 / 83; Pulse 101; Resp 17; Temp 99.0(T); Pulse Ox 98% on R/A; Weight 76.2 kg; ab2 Height 5 ft. 6 in. (167.64 cm); Pain 10/10; 19:27 BP 101 / 75; Pulse 85; Resp 18 S; Pulse Ox 100% on R/A; as6 20:36 BP 117 / 80; Pulse 79; Resp 18 S; Pulse Ox 100% on R/A; as6 21:25 BP 112 / 77; Pulse 82; Resp 16 S; Pulse Ox 99% on R/A; as6 22:41 BP 117 / 87; Pulse 71; Resp 14; Pulse Ox 98% on R/A; Pain 7/10; tw5 17:51 Body Mass Index 27.12 (76.20 kg, 167.64 cm) ab2 MDM: 17:55 Patient medically screened. kb 18:58 Data reviewed: vital signs, nurses notes. Data interpreted: Pulse oximetry: on room air kb is 98 %. Interpretation: normal. 21:26 Counseling: I had a detailed discussion with the patient and/or guardian regarding: the kb historical points, exam findings, and any diagnostic results supporting the discharge/admit diagnosis, lab results, radiology results, the need for outpatient follow up, a family practitioner, to return to the emergency department if symptoms worsen or persist or if there are any questions or concerns that arise at home. 05/15 17:50 Order name: Urine Microscopic Only kb 05/15 17:50 Order name: Urine Microscopic Only; Complete Time: 20:03 EDMS 05/15 17:56 Order name: Basic Metabolic Panel; Complete Time: 22:00 kb 05/15 17:56 Order name: CBC with Diff; Complete Time: 19:43 kb 05/15 17:56 Order name: Hepatic Function; Complete Time: 22:00 kb 05/15 17:56 Order name: Lipase; Complete Time: 22:00 kb 05/15 17:50 Order name: Urine Dipstick-Ancillary (obtain specimen); Complete Time: 18:58 kb 05/15 17:50 Order name: Urine Test (obtain specimen); Complete Time: 18:58 kb 05/15 17:56 Order name: CT Abd/Pelvis - IV Contrast Only; Complete Time: 21:08 kb 05/15 18:58 Order name: Urine Dipstick-Ancillary; Complete Time: 19:00 EDTN 05/15 18:58 Order name: Urine --Ancillary (enter results); Complete Time: 19:52 bd 05/15 20:06 Order name: Urine Culture [facility] 05/15 17:56 Order name: IV Saline Lock; Complete Time: 19:29 kb 05/15 17:56 Order name: Labs collected and sent; Complete Time: 19:29 kb 05/15 18:56 Order name: Labs - recollect needed: recollect urine in a yellow top tube; Complete bd Time: 19:32 Administered Medications: 19:37 Drug: Ketorolac 15 mg Route: IVP; Site: right antecubital; as6 22:43 Follow up: Response: No adverse reaction; Pain is decreased; RASS: Alert and Calm (0) tw5 21:25 Drug: morphine 4 mg Route: IVP; Site: right antecubital; as6 22:43 Follow up: Response: No adverse reaction; Pain is decreased; RASS: Alert and Calm (0) tw5 Disposition: 05/16 04:41 Co-signature as Attending Physician, Roxie Tsai MD I agree with the assessment and sp3 plan of care. Disposition Summary: 05/15/21 22:21 Discharge Ordered Location: Home kb Condition: Stable kb Diagnosis - Lower abdominal pain, unspecified kb - Bilateral flank pain kb Followup: kb - With: Emergency Department - When: As needed - Reason: Worsening of condition Followup: kb - With: Private Physician - When: 2 - 3 days - Reason: Recheck today's complaints, Continuance of care, Re-evaluation by your physician Discharge Instructions: - Discharge Summary Sheet kb - Flank Pain, Adult kb - Abdominal Pain, Adult, [id number] kb Forms: - Medication Reconciliation Form kb - Thank You Letter kb - Antibiotic Education kb - Prescription Opioid Use kb Signatures: Dispatcher [employer] EDMS Sudha Hinkle, [employer]-[place] Schneider Setul, MD MD sp3 Chan Veras, EBONIE RN as6 Yomi Galindo2 Maisha Johnson tw5 Corrections: (The following items were deleted from the chart) 05/15 21:03 18:59 Onset: The symptoms/episode began/occurred 1 hour(s) ago, kb : 18:58 Constitutional: This is a well developed, well nourished patient who is awake, kb alert, and in no acute distress. Head/Face: Normocephalic, atraumatic. ENT: Moist Mucous membranes Respiratory: Respirations even and unlabored. No increased work of breathing. Talking in full sentences Abdomen/GI: Soft, non-tender. No distention Skin: Warm, dry with normal turgor. Normal color. MS/ Extremity: Pulses equal, no cyanosis. Neurovascular intact. Full, normal range of motion. Neuro: Awake and alert, GCS 15, oriented to person, place, time, and situation. Moves all extremities. Normal gait. Psych: Awake, alert, with orientation to person, place and time. Behavior, mood, and affect are within normal limits. kb 21:04 18:58 Back: CVA tenderness, that is moderate, is noted on the left, kb kb 21:05 18:58 Constitutional: Negative for fever, chills, and weight loss, kb kb 21:05 18:58 Back: Positive for flank pain, on the left, kb kb
[2021-05-15 23:14] VITALS: TEMP 99
[2021-05-15 23:34] VITALS: BP 117/87; O2SAT 98
== END 2021-05-15 22:44 | disposition home or self-care (01) ==
LOC: ER 17:41
DX: R10.30 Lower abdominal pain, unspecified (principal); R10.9 Unspecified abdominal pain; E03.9 Hypothyroidism, unspecified; F90.9 Attention-deficit hyperactivity disorder, unspecified type; Z79.01 Long term (current) use of anticoagulants; Z88.1 Allergy status to other antibiotic agents; Z88.8 Allergy status to other drugs, medicaments and biological substances; Z91.040 Latex allergy status; Z91.048 Other nonmedicinal substance allergy status
CPT/HCPCS: 87088; 85025; 87086; 80048; 36415; 81025; 80076; 83690; 74177; Q9967; 81003; 81015; 96374; 96375; 99284

== ENCOUNTER 2021-10-14 10:59 | Emergency (ER) | payer BC ==
--- OUTSIDE RECORDS SUMMARY | 2021-10-14 11:03 | XMS REPORT | Clinical Summary ---
:1985 Author Organization [facility] Toño [facility] Address [address] [place] [address] Care Team Providers Name Role Phone MD Yari Primary Care Provider MD Brayan Unavailable MD Karmen Unavailable Rose Marie Yancey MD Unavailable MD Becky Unavailable MD Cassius Unavailable Unavailable MD Mary Unavailable Unavailable Yuri Dunlap Unavailable GERARD Etienne Unavailable ALEXA Johnson Unavailable John Allison Unavailable MD Lionel Unavailable Anna Winchester NP Unavailable Unavailable MD Susana Unavailable XOCHITL Milligan Unavailable MD Maura Unavailable So Alfaro MD Unavailable MD Yari Unavailable Christopher Graham NP Unavailable Baldovino, APPIAN DEVELOPER Unavailable Gabriela, PA Unavailable Severiano, XOCHITL Unavailable Yamil Chaidez MD Unavailable WaijuanMike Unavailable Jennifer Jung [facility]available [facility] Unavailable Marcela Damico MD Unavailable Anna Damico [...] Team Description 03/30/2021 Office Visit Leukemia Jori Long NP Systemic lupus erythematosus, not otherw ise specified (Primary Dx); Rebeka, Acute promyeloc ytic leukemia, in remission GERARD Caceres 03/30/2021 Hospital Encounter Lab Jori Long NP Acute promyelocytic leukemia, in re mission 03/30/2021 Orders Only Leukemia Rebeka, Acute promyeloc ytic GERARD Caceres leukemia, in r emission (Primary Dx) 03/30/2021 Travel 03/30/2021 Orders Only Leukemia Jori Long, APPIAN DEVELOPER Acute promye locytic leukemia, in re mission (Primary Dx) after 10/14/2020 Immunizations Name Administration Dates Next Due Influenza [...] Due Date Last Done Comments COVID-19 Vaccination (#1) 11/08/1991 Procedures Procedure Name Priority Date/Time Associated Diagnosis Comme nts TMP INTERPRETATION Routine 03/30/2021 11:04 Resul ts for this ANTIBODY SCREEN NEGATIVE AM SNUFF DRIER pro cedure are in the results section. CLOT EXPIRATION DATE Routine 03/30/2021 11:04 Res ults for this AM SNUFF DRIER procedure are i n the results section. HP T(15;17) PML-LEN Routine 03/30/2021 11:04 QUANTITATIVE PCR AM SNUFF DRIER INTERPRETATION AND REPORT .GLOMERULAR FILTRATION Routine 03/30/2021 11:04 Acute promyelo cytic Results for this RATE AM SNUFF DRIER leukemia, in procedure are i n remission the results section. SERUM CREATININE Routine 03/30/2021 11:04 Acute promyelocytic Results for this AM SNUFF DRIER leukemia, in procedure are i n remission the results section. MANUAL DIFFERENTIAL STAT 03/30/2021 11:04 Acute promyelocyt ic Results for this AM SNUFF DRIER leukemia, in procedure are i n remission the results section. Results CBC STAT 03/30/2021 11:04 Acute promyelocytic Resu lts for this AM SNUFF DRIER leukemia, in procedure are i n remission the results section. ANTIBODY SCREEN Routine 03/30/2021 11:04 Acute promyelocytic R esults for this AM SNUFF DRIER leukemia, in procedure are i n remission the results section. ABORH Routine 03/30/2021 11:04 Acute promyelocytic Resu lts for this AM SNUFF DRIER leukemia, in procedure are i n remission the results section. HP T(15;17) PML-LEN Routine 03/30/2021 11:04 Acute promyel ocytic Results for this QUANTITATIVE PCR AM SNUFF DRIER leukemia, in procedure a re in COLLECTION, BLOOD remission the result s section. MAGNESIUM LEVEL Routine 03/30/2021 11:04 Acute promyelocytic R esults for this AM SNUFF DRIER leukemia, in procedure are i n remission the results section. ELECTROLYTE PANEL Routine 03/30/2021 11:04 Acute promyelocytic Results for this AM SNUFF DRIER leukemia, in procedure are i n remission the results section. ALANINE AMINOTRANSFERASE Routine 03/30/2021 11:04 Acute promye locytic Results for this AM SNUFF DRIER leukemia, in procedure are i n remission the results section. LACTATE DEHYDROGENASE Routine 03/30/2021 11:04 Acute promyeloc ytic Results for this AM SNUFF DRIER leukemia, in procedure are i n remission the results section. ALKALINE PHOSPHATASE Routine 03/30/2021 11:04 Acute promyelocy tic Results for this AM SNUFF DRIER leukemia, in procedure are i n remission the results section. FRACTIONATED BILIRUBIN Routine 03/30/2021 11:04 Acute promyelo cytic Results for this AM SNUFF DRIER leukemia, in procedure are i n remission the results section. URIC ACID Routine 03/30/2021 11:04 Acute promyelocytic Resu lts for this AM SNUFF DRIER leukemia, in procedure are i n remission the results section. SERUM CREATININE Routine 03/30/2021 11:04 Acute promyelocytic AM SNUFF DRIER leukemia, in remission BLOOD UREA NITROGEN Routine 03/30/2021 11:04 Acute promyelocyt ic Results for this AM SNUFF DRIER leukemia, in procedure are i n remission the results section. GLUCOSE, RANDOM Routine 03/30/2021 11:04 Acute promyelocytic R esults for this AM SNUFF DRIER leukemia, in procedure are i n remission the results section. PHOSPHORUS LEVEL Routine 03/30/2021 11:04 Acute promyelocytic Results for this AM SNUFF DRIER leukemia, in procedure are i n remission the results section. CALCIUM LEVEL TOTAL Routine 03/30/2021 11:04 Acute promyelocyt ic Results for this AM SNUFF DRIER leukemia, in procedure are i n remission the results section. ALBUMIN LEVEL Routine 03/30/2021 11:04 Acute promyelocytic Res ults for this AM SNUFF DRIER leukemia, in procedure are i n remission the results section. TOTAL PROTEIN Routine 03/30/2021 11:04 Acute promyelocytic Res ults for this AM SNUFF DRIER leukemia, in procedure are i n remission the results section. COMPLETE BLOOD COUNT W/ Routine 03/30/2021 11:04 Acute promyel ocytic DIFFERENTIAL AM SNUFF DRIER leukemia, in remission TYPE AND SCREEN Routine 03/30/2021 11:04 Acute promyelocytic AM SNUFF DRIER leukemia, in remission after 10/14/2020 Results t(15;17) PML-LEN Quantitative PCR Collection, Blood (03/30/2021 11:04 AM SNUFF DRIER) athologist [facility] Molecular Yes [facility] (Received) Specimen Anatomical Collection Method Collection Time Receive d Time (Source) Location / / Volume Laterality Blood 03/30/2021 11:04 03/30/2021 AM SNUFF DRIER 1:39 PM SNUFF DRIER Jori Long NP, MDA MD BLOOD COLLECTIONS Performing Organization Address [facility] Phon e Number [facility] Unless otherwise noted, [place], [place] [id number] [place] [address] all lab tests performed by: Division of Pathology and Laboratory Medicine Vince Sapp (ABNORMAL) Glucose, Random (03/30/2021 11:04 AM SNUFF DRIER) athologist [facility] Glucose Random 62 (L) 70 - 199 [facility] mg/dL [facility] Comment: Effective 11/15/15, the glucose reference intervals have been updated based on [place] Diabetes [employer] guidelines (Standards of Medical Care in Diabetes 2016. Diabetes Care 2016; 39: S13-S22). Fasting blood glucose: Normal: 70-99 mg/dL Impaired fasting glucose (increased risk for diabetes or pre-diabetes): 100- 125 mg/dL Diabetes mellitus: >/=126 mg/dL Random blood glucose: Normal: 70-199 mg/dL Note: Random glucose >100 mg/dL is assoc iated with increased risk for diabetes Specimen Anatomical Collection Method Collection Time Receive d Time (Source) Location / / Volume Laterality Blood 03/30/2021 11:04 03/30/2021 AM SNUFF DRIER 11:53 AM SNUFF DRIER Narrative [facility] - 12:26 PM SNUFF DRIER Schedule in Fast Track Jori Long NP LAB BLOOD ORDERABLES Performing Organization Address City/State/ZIP Code Phon e Number [facility] Unless otherwise noted, [address] all lab tests performed by: Division of Pathology and Laboratory Medicine [address] [place] [address] .Serum Creatinine (03/30/2021 11:04 AM SNUFF DRIER) P athologist Signature Creatinine 0.95 0.51 - 0.95 [facility] mg/dL [facility] Specimen Anatomical Collection Method Collection Time Receive d Time (Source) Location / / Volume Laterality Blood 03/30/2021 11:04 03/30/2021 AM SNUFF DRIER 11:53 AM SNUFF DRIER Narrative [facility] - 12:26 PM SNUFF DRIER Schedule in Fast Track Jori Long NP LAB BLOOD ORDERABLES Performing Organization Address City/State/ZIP Code Phon e Number [facility] Unless otherwise noted, [address] all lab tests performed by: Division of Pathology and Laboratory Medicine [facility]5 [facility] (ABNORMAL) .CBC (03/30/2021 11:04 AM SNUFF DRIER) Analysis Performed At Patho logist Time Signature WBC 9.4 4.0 - 11.0 [facility] K/uL [facility] RBC 4.53 4.00 - [facility] 5.50 M/uL [facility] Hgb 13.0 12.0 - [facility] 16.0 gm/dL DI[facility]ENTER Hct 40.0 37.0 - [facility] 47.0 % [facility] MCV 88 82 - 98 [facility]ST[facility] CENTER MCH 28.7 27.0 - [facility] 31.0 pg DIAGNO[facility] CENTER MCHC 32.5 31.0 - [facility] 36.0 gm/dL DIAG[facility]STIC CENTER RDW-SD 40.1 35.1 - [facility] 46.3 MA [facility] RDW-CV 12.3 12.0 - [facility] 15.5 % [facility] Platelet count 252 140 - 440 [facility] K/uL [facility] MPV 12.2 (H) 4.0 - 10.4 [facility] INRBC 0.0 <=0.0 % [facility] Comment: The INRBC (instrument NRBC) value reflec ts the enumeration of nucleated red blood cells contained i n a 200uL sample of whole blood analyzed by the instrumen t. This value may differ from the NRBC value reported in a manual differential, which is based on a 100 cell differentia l. Specimen Anatomical Collection Method Collection Time Receive d Time (Source) Location / / Volume Laterality Blood 03/30/2021 11:04 03/30/2021 AM SNUFF DRIER 11:15 AM SNUFF DRIER Narrative [facility] - 03/30 11:28 AM SNUFF DRIER Schedule in Fast Track Jori Long NP LAB BLOOD ORDERABLES Performing Organization Address City/State/ZIP Code Phon e Number [facility] Unless otherwise noted, [place], [place] [address] [place] all lab tests performed by: Division of Pathology and Laboratory Medicine [address] [facility] Clot Expiration Date (03/30/2021 11:04 AM SNUFF DRIER) Patholo gist Method Time Signature T & S 04/02/2021 [facility] Specimen Anatomical Collection Method Collection Time Receive d Time (Source) Location / / Volume Laterality Blood 03/30/2021 11:04 03/30/2021 AM SNUFF DRIER 11:54 AM SNUFF DRIER Jori Long NP BLOOD BANK TEST ORDERABLES Performing Organization Address City/State/ZIP Code Phon e Number [facility] Unless otherwise noted, [place] [address] [place] all lab tests performed by: Division of Pathology and Laboratory Medicine [address] Glomerular Filtration Rate (03/30/2021 11:04 AM SNUFF DRIER) P athologist Signature eGFR-AA 90 >=60 [facility] mL/min/1.73 [facility] sq. m Comment: Normal eGFR: >= 60 mL/min/1.73 m2 Note: The eGFR is calculated using the C KD-EPI equation. The eGFR declines with age. eGFR <60 mL/min/1.73 m2 is considered as "decreased". This equation should only be used for patients 18 and older. According to the National Kidney Foundat ion's Kidney Disease Outcome Quality Initiative (KDOQI) classification and 2012 Kidney Disease Improving Global Outcomes (KDIGO) Clinical Practice Guideline, the stage of CKD should be categorized based on estimated GFR. Stage Description GFR mL/min/1. 73 m2 1 Normal or high GFR >=90 2 Mildly decreased GFR 60-89 3a Mildly to moderately decreased GFR 45-59 3b Moderately to severely decreased GFR 30-44 4 Severely decreased GFR 15-29 5 Kidney failure <15 eGFR-SARI 78 >=60 mL/min/1.73 sq. m CO MD Santana [facility] Comment: Normal eGFR: >= 60 mL/min/1.73 m2 Note: The eGFR is calculated using the C KD-EPI equation. The eGFR declines with age. eGFR <60 mL/min/1.73 m2 is considered as "decreased". This equation should only be used for patients 18 and older. According to the National Kidney Foundat ion's Kidney Disease Outcome Quality Initiative (KDOQI) classification and 2012 Kidney Disease Improving Global Outcomes (KDIGO) Clinical Practice Guideline, the stage of CKD should be categorized based on estimated GFR. Stage Description GFR mL/min/1. 73 m2 1 Normal or high GFR >=90 2 Mildly decreased GFR 60-89 3a Mildly to moderately decreased GFR 45-59 3b Moderately to severely decreased GFR 30-44 4 Severely decreased GFR 15-29 5 Kidney failure <15 Specimen Anatomical Collection Method Collection Time Receive d Time (Source) Location / / Volume Laterality Blood 03/30/2021 11:04 03/30/2021 AM SNUFF DRIER 11:53 AM SNUFF DRIER Narrative [facility] - 12:26 PM SNUFF DRIER Schedule in Fast Track Jori Long NP LAB BLOOD ORDERABLES Performing Organization Address City/State/ZIP Code Phon e Number [facility] Unless otherwise noted, [place] [address] [place] all lab tests performed by: Division of Pathology and Laboratory Medicine [address] [place] [address] [place] Fractionated Bilirubin (03/30/2021 11:04 AM SNUFF DRIER) athologist Signature Bili Total 0.4 <=1.2 mg/dL [facility] Comment: Indocyanine Green (ICG) may cause falsel y elevated bilirubin results. Total and direct bilirubin must not be measured from samples containing indocyanine green. False elevation of total bilirubin can b e seen in patients with IgG concentrations above 28 g/L. Bili Direct <0.2 <=0.3 mg/dL [facility] Comment: Indocyanine Green (ICG) may cau se falsely elevated bilirubin results. Total and direct bilirubin must not be measure d from samples containing indocyanine green. Bili Indirect See Note 0.0 - 0.9 mg/dL [facility] Comment: Unable to calculate Indirect Bi lirubin result due to some parameters are outside reportable range Specimen Anatomical Collection Method Collection Time Receive d Time (Source) Location / / Volume Laterality Blood 03/30/2021 11:04 03/30/2021 AM SNUFF DRIER 11:53 AM SNUFF DRIER Jori Long NP LAB BLOOD ORDERABLES Performing Organization Address City/[facility] Phon e Number [facility] Unless otherwise noted, [address] all lab tests performed by: Division of Pathology and Laboratory Medicine Vince Sapp MD t(15;17) PML-LEN Quantitative PCR Interpretation and Report (03/30/2021 11:04 AM SNUFF DRIER) Specimen (Source) Anatomical Collection Method Collection Time Re ceived Time Location / / Volume Laterality 03/30/2021 11:04 AM SNUFF DRIER Narrative This result has an attachment that is no t available. Jori Long NP, MDA [facility]) TMP Interpretation Antibody Screen Negative (03/30/2021 11:04 AM SNUFF DRIER) [facility] Method Time Signature TMP Auto Neg At the CO ABSC [facility] patient plasma shows no evidence of RBC alloantibodi es. Comment: VALERIE FREDERICK, Dictated by: VALERIE FREDERICK, Dictated Date/Time: 03.30.2021 20:35 PM SNUFF DRIER Transcribed Date/Time: 03.30.2021 20:35 PM SNUFF DRIER Electronically Signed By: VALERIE LIRIANO, on 03.30.2021 20:35 PM Specimen Anatomical Collection Method Collection Time Receive d Time (Source) Location / / Volume Laterality Blood 03/30/2021 11:04 03/30/2021 AM SNUFF DRIER 11:54 AM SNUFF DRIER Jori Long NP BLOOD BANK TEST ORDERABLES Performing Organization Address City/[facility] Phon e Number [facility] Unless otherwise noted, [address] all lab tests performed by: Division of Pathology and Laboratory Medicine Vince Sapp ABORh (03/30/2021 11:04 AM SNUFF DRIER) athologist Signature ABORh. A POS [facility] Specimen Anatomical Collection Method Collection Time Receive d Time (Source) Location / / Volume Laterality Blood 03/30/2021 11:04 03/30/2021 AM SNUFF DRIER 11:54 AM SNUFF DRIER Jori Long NP BLOOD BANK TEST ORDERABLES Performing Organization Address City/State/ZIP Code Phon e Number [facility] Unless otherwise noted, [place] [address] [place] all lab tests performed by: Division of Pathology and Laboratory Medicine [address] [facility] (ABNORMAL) Differential (03/30/2021 11:04 AM SNUFF DRIER) athologist [facility] Neutrophil % 75.3 (H) 42.0 - [facility] 66.0 % [facility] Lymphocyte % 16.8 (L) 24.0 - [facility] 44.0 % [facility] Monocyte % 6.3 2.0 - 7.0 [facility] % [facility] Eosinophil % 0.8 (L) 1.0 - 4.0 [facility] % [facility] Basophil % 0.5 0.0 - 1.0 [facility] % [facility] IGRE % 0.3 0.0 - 0.4 [facility] % [facility] Comment: IGRE % count includes Metamyelo cytes, Myelocytes, and Promyelocytes. Neutrophil Abs 7.10 1.70 - 7.30 K/uL CO MD GONZALEZ [facility] Lymphocyte Abs 1.59 1.00 - 4.80 K/uL CO MD LISA [facility] Monocyte Abs 0.59 0.08 - 0.70 K/uL CO MD MCDONNELL [facility] Eosinophil Abs 0.08 0.04 - 0.40 K/uL CO MD LISA [facility] Basophil Abs 0.05 0.00 - 0.10 K/uL CO MD MCDONNELL ON [facility] IG Abs 0.03 0.00 - 0.04 K/uL CO MD LULI Nicolas [facility] Specimen Anatomical Collection Method Collection Time Receive d Time (Source) Location / / Volume Laterality Blood 03/30/2021 11:04 03/30/2021 AM SNUFF DRIER 11:15 AM SNUFF DRIER Narrative [facility] - 03/30 11:28 AM SNUFF DRIER Schedule in Fast Track Jori Long NP LAB BLOOD ORDERABLES Performing Organization Address City/State/ZIP Code Phon e Number [facility] Unless otherwise noted, [place], [place] [address] [place] all lab tests performed by: Division of Pathology and Laboratory Medicine [facility] Antibody Screen (03/30/2021 11:04 AM SNUFF DRIER) P athologist Signature ABSC. Negative ABSC [facility] Specimen Anatomical Collection Method Collection Time Receive d Time (Source) Location / / Volume Laterality Blood 03/30/2021 11:04 03/30/2021 AM SNUFF DRIER 11:54 AM SNUFF DRIER Jori Long NP BLOOD BANK TEST ORDERABLES Performing Organization Address City/[facility]/ZIP Code Phon e Number [facility] Unless otherwise noted, [place] [address] [place] all lab tests performed by: Division of Pathology and Laboratory Medicine [facility] [place] Uric Acid (03/30/2021 11:04 AM SNUFF DRIER) athologist Signature Uric Acid 3.4 2.4 - 5.7 [facility] mg/dL [facility] Specimen Anatomical Collection Method Collection Time Receive d Time (Source) Location / / Volume Laterality Blood 03/30/2021 11:04 03/30/2021 AM SNUFF DRIER 11:53 AM SNUFF DRIER Narrative [facility] - 12:26 PM SNUFF DRIER Schedule in Fast Track Jori Long NP LAB BLOOD ORDERABLES Performing Organization Address City/[facility]/ZIP Code Phon e Number [facility] Unless otherwise noted, [place], [place] [id number] [place] [address] all lab tests performed by: Division of Pathology and Laboratory Medicine [facility] [place] BUN (03/30/2021 11:04 AM SNUFF DRIER) athologist Signature BUN 12 6 - 23 [facility] mg/dL [facility] Specimen Anatomical Collection Method Collection Time Receive d Time (Source) Location / / Volume Laterality Blood 03/30/2021 11:04 03/30/2021 AM SNUFF DRIER 11:53 AM SNUFF DRIER Jori Long NP LAB BLOOD ORDERABLES Performing Organization Address City/[facility]/ZIP Code Phon e Number [facility] Unless otherwise noted, [address] all lab tests performed by: Division of Pathology and Laboratory Medicine [address] Alanine Aminotransferase (03/30/2021 11:04 AM SNUFF DRIER) P athologist Signature ALT 17 <=33 U/L [facility] Specimen Anatomical Collection Method Collection Time Receive d Time (Source) Location / / Volume Laterality Blood 03/30/2021 11:04 03/30/2021 AM SNUFF DRIER 11:53 AM SNUFF DRIER Narrative [facility] - 12:26 PM SNUFF DRIER Schedule in Fast Track Jori Long NP LAB BLOOD ORDERABLES Performing Organization Address City/[facility]/ZIP Code Phon e Number [facility] Unless otherwise noted, [address] all lab tests performed by: Division of Pathology and Laboratory Medicine [address] Total Protein (03/30/2021 11:04 AM SNUFF DRIER) athologist Signature Total Protein 6.8 6.4 - 8.3 [facility] g/dL [facility] Specimen Anatomical Collection Method Collection Time Receive d Time (Source) Location / / Volume Laterality Blood 03/30/2021 11:04 03/30/2021 AM SNUFF DRIER 11:53 AM SNUFF DRIER Narrative [facility] - 12:26 PM SNUFF DRIER Schedule in Fast Track Jori Long NP LAB BLOOD ORDERABLES Performing Organization Address City/[facility]/ZIP Code Phon e Number [facility] Unless otherwise noted, [address] all lab tests performed by: Division of Pathology and Laboratory Medicine [address] Phosphorus Level (03/30/2021 11:04 AM SNUFF DRIER) athologist Signature Phosphorus 3.8 2.5 - 4.5 [facility] mg/dL [facility] Specimen Anatomical Collection Method Collection Time Receive d Time (Source) Location / / Volume Laterality Blood 03/30/2021 11:04 03/30/2021 AM SNUFF DRIER 11:53 AM SNUFF DRIER Narrative [facility] - 12:26 PM SNUFF DRIER Schedule in Fast Track Jori Long NP LAB BLOOD ORDERABLES Performing Organization Address City/State/ZIP Code Phon e Number [facility] Unless otherwise noted, [address] all lab tests performed by: Division of Pathology and Laboratory Medicine [address] Alkaline Phosphatase (03/30/2021 11:04 AM SNUFF DRIER) athologist [facility] Alk Phos 69 35 - 104 [facility] U/L [facility] Specimen Anatomical Collection Method Collection Time Receive d Time (Source) Location / / Volume Laterality Blood 03/30/2021 11:04 03/30/2021 AM SNUFF DRIER 11:53 AM SNUFF DRIER Narrative [facility] - 12:26 PM SNUFF DRIER Schedule in Fast Track Jori Long NP LAB BLOOD ORDERABLES Performing Organization Address City/State/ZIP Code Phon e Number [facility] Unless otherwise noted, [address] all lab tests performed by: Division of Pathology and Laboratory Medicine [address] Magnesium Level (03/30/2021 11:04 AM SNUFF DRIER) [facility] Magnesium 2.2 1.6 - 2.6 [facility] mg/dL [facility] Specimen Anatomical Collection Method Collection Time Receive d Time (Source) Location / / Volume Laterality Blood 03/30/2021 11:04 03/30/2021 AM SNUFF DRIER 11:53 AM SNUFF DRIER Narrative [facility] - 12:26 PM SNUFF DRIER Schedule in Fast Track Jori Long NP LAB BLOOD ORDERABLES Performing Organization Address City/State/ZIP Code Phon e Number [facility] Unless otherwise noted, [address] all lab tests performed by: Division of Pathology and Laboratory Medicine [address] LDH (03/30/2021 11:04 AM SNUFF DRIER) athologist [facility] LDH [phone] [facility] U/L [facility] Comment: Results greater than 1651 U/L m ay not be reliable due to matrix effect with extended dilution as it exceeds the manu facturer s recommended limit. Caution should be e xercised when interpreting such values and done in conjunction with clinical contex t. Specimen Anatomical Collection Method Collection Time Receive d Time (Source) Location / / Volume Laterality Blood 03/30/2021 11:04 03/30/2021 AM SNUFF DRIER 11:53 AM SNUFF DRIER Narrative [facility] - 12:26 PM SNUFF DRIER Schedule in Fast Track Jori Long NP LAB BLOOD ORDERABLES Performing Organization Address City/[facility]/ZIP Code Phon e Number [facility] Unless otherwise noted, [address] all lab tests performed by: Division of Pathology and Laboratory Medicine [id number] Calcium Level (03/30/2021 11:04 AM SNUFF DRIER) P athologist Signature Calcium Lvl 8.8 8.4 - 10.2 [facility] mg/dL [facility] Specimen Anatomical Collection Method Collection Time Receive d Time (Source) Location / / Volume Laterality Blood 03/30/2021 11:04 03/30/2021 AM SNUFF DRIER 11:53 AM SNUFF DRIER Narrative [facility] - 12:26 PM SNUFF DRIER Schedule in Fast Track Jori Long NP LAB BLOOD ORDERABLES Performing Organization Address City/[facility]/ZIP Code Phon e Number [facility] Unless otherwise noted, [address] all lab tests performed by: Division of Pathology and Laboratory Medicine [address] Albumin Level (03/30/2021 11:04 AM SNUFF DRIER) P athologist Signature Albumin Lvl 4.5 3.5 - 5.2 [facility] gm/dL [facility] Specimen Anatomical Collection Method Collection Time Receive d Time (Source) Location / / Volume Laterality Blood 03/30/2021 11:04 03/30/2021 AM SNUFF DRIER 11:53 AM SNUFF DRIER Narrative [facility] - 12:26 PM SNUFF DRIER Schedule in Fast Track Jori Long NP LAB BLOOD ORDERABLES Performing Organization Address City/[facility]/ZIP [facility] Phon e Number [facility] Unless otherwise noted, [address] all lab tests performed by: Division of Pathology and Laboratory Medicine [address] Electrolyte Panel (03/30/2021 11:04 AM SNUFF DRIER) P athologist Signature Sodium Lvl 141 136 - 145 [facility] mEq/L [facility] Potassium Lvl 4.0 3.5 - 5.1 [facility] mEq/L [facility] Chloride 104 98 - 107 [facility] mEq/L [facility] CO2 27 22 - 29 [facility] mEq/L [facility] Anion Gap 10 4 - 14 [facility] mEq/L [facility] Specimen Anatomical Collection Method Collection Time Receive d Time (Source) Location / / Volume Laterality Blood 03/30/2021 11:04 03/30/2021 AM SNUFF DRIER 11:53 AM SNUFF DRIER Narrative [facility] - 12:26 PM SNUFF DRIER Schedule in Fast Track Jori Long NP LAB BLOOD ORDERABLES Performing Organization Address City/State/ZIP Code Phon e Number [facility] Unless otherwise noted, [place] [address] [place] all lab tests performed by: Division of Pathology and Laboratory Medicine [address] [place] [address] after 10/14/2020 Care Teams 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 Relationship Specialty Start Date End Date Marck Greenberg MD PCP - General 06/21/[address] [place] [address] [id number] Jag Schmidt MD Physician 06/28/[address] [place] [id number] Niharika Peraza MD Physician 06/28/[address] [place] [address] [id number] Anita Yancey MD Physician 06/28/15 [address] [facility] [address] [place] [address] Fab Pena MD Physician 06/28/[address] [place] [address] [id number] Juan Hammonds MD Physician 06/28/15 Gurpreet Hernandez MD Physician 06/28/15 Heydi Dunlap PA Physician Degreasing Wheel Operator 06/28/[address] [place] [address] [id number] Patsy Etienne PA Physician Degreasing Wheel Operator 06/28/[address] [place] [address] [id number] Topher Johnson APN Nurse Practitioner 06/28/[address] [place] [address] [id number] Kori Allison AuD Woodworker Helper 06/28/[address] [place] [address] [address] [place] [address] Michael Flowers MD Physician 06/28/[address] [place] [address] [id number] Maddy Winchester APPIAN DEVELOPER Nurse Practitioner 06/28/15 Pedro Luis Meza MD Physician 06/28/[address] [id number] Yuli Milligan NP Nurse Practitioner 06/28/[address] [place] [id number] Kathi Lorenzo MD Physician 06/28/[address] [place] [address] [id number] Adria Alfaro MD Physician 06/28/[address] [place] [address] [id number] Marck Greenberg MD Physician 06/28/[address] [place] [address] [id number] Nina Graham APPIAN DEVELOPER Nurse Practitioner 06/28/[address] [place] [address] [id number] Rin Wren, APPIAN DEVELOPER Nurse Practitioner 06/28/[address] [place] [address] [id number] Suly Ochoa PA Physician Degreasing Wheel Operator 06/28/[address] [place] [address] [phone] Lee العلي, XOCHITL Nurse Practitioner 06/28/[address] [place] [id number] Christianne Chaidez MD Physician 06/28/[address] [place] [address] [id number] Tommie Yanez PA Physician Degreasing Wheel Operator 06/28/[address] [place] [address]. [place] [address] Marie Jung PA Physician Degreasing Wheel Operator 06/28/[address] [place] [address] [id number] Alexandra Villegas NP Nurse Practitioner 06/28/[address] [place] [address] [id number] Graeme Damico MD Physician 06/28/[address] [place] [address] [id number] Chico Damico MD Physician 06/28/[address] [place] [address] [id number] Kristy Florez MD Physician 06/28/[address] [place] [address] [id number] Sony Rich MD Physician 06/28/[address] [place] [address] [id number] Sony Watson MD Physician 06/28/[address] [place] [address] [id number] Santino Alvarenga MD Physician 06/28/[address] [place] [address] [id number] Aurora Busby MD Physician 06/28/[address] [place] [address] [id number] Domenic Gordon MD Physician 06/28/15 Otis Busby MD Physician 06/28/[address] [place] [address] [id number]
--- OUTSIDE RECORDS SUMMARY | 2021-10-14 11:08 | XMS REPORT | Continuity of Care Document ---
:1985 Author Organization [facility] t Address [address] [place] [address] Care Team Providers Name Role Phone [phone] Primary Care Physician Unavailable Christopher Savage Attending Clinician Unavailable MENDEZ Attending Clinician Unavailable Mendez HAMILTON Attending Clinician Vandana LOOMIS, M Attending Clinician Unavailable Ethan LEUNG Attending Clinician ETHAN Attending Clinician Unavailable Rebeka GEE Attending Clinician ZAYRA Attending Clinician Unavailable Zayracarola MORENO Attending Clinician Harsh Attending Clinician Unavailable Andres MJEIAS Attending Clinician Unavailable Marlon LOOMIS Attending Clinician Unavailable Ester MORENO Attending Clinician ESTER Attending Clinician Unavailable Provider, Urgent Care Attending Clinician Unavailable Jennifer Mancuso Attending Clinician Jennifer MENDOZA Attending Clinician Unavailable Selena HAMILTON Attending Clinician Alhaji HAMILTON, Jennifer. Attending Clinician [facility] Attending Clinician Unavailable Lyndsay HAMILTON Attending Clinician Nasreen HAMILTON Attending Clinician Ashok Tsai MD Attending Clinician MD Jennifer DOWNEY Attending Clinician Unavailable Tung HAMILTON, Jae Attending Clinician Marichuy HAMILTON Attending Clinician Toni Maldonado MD Attending Clinician Barber Attending Clinician Unavailable Paola HAMILTON, Janice Attending Clinician Edwin HAMILTON Attending Clinician Varsha HAMILTON, [facility] Attending Clinician Ricky HOBSON Attending Clinician Unavailable MD EDWIN Attending Clinician Unavailable NASREEN Admitting Clinician Unavailable MD Jennifer DOWNEY Admitting Clinician Unavailable MARICHUY Admitting Clinician Unavailable EDWIN Admitting Clinician Unavailable MD EDWIN Admitting Clinician Unavailable Payers Payer Name Policy Type Policy Number Effective Date Expiration Date S aren [facility] [place] [facility] [id number] 2021 00:00:00 [facility] [place] POS [id number] 2018 00:00:00 Problems Condition Condition Condition Status [...] di 0-26 st 00:00: Hospita 00 l 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 M ethodi al al 0-24 st dysfunctio dysfunctio 00:00: Ho spita n n 00 l Weakness Weakness Disease Active 2019-04 Metho di 0-24 st 00:00: Hospita 00 l 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 M ethodi al al 0-24 st dysfunctio dysfunctio 00:00: Ho spita n n 00 l 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 Methodi neuritis neuritis 0-15 st 00:00: Hospita 00 l 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, leukemia, 00 MD in in [facility] remission remission [facility] Backache Problem Active 2020-12-03 Mem oria (finding) [...] 2020-12-03 M emoria leon 21:41:00 l (finding) [place] Disorienta leon (finding) Active Problem 12/03/2020 [facility] Hemiplegia Problem Active 2020-12-03 M emoria (disorder) 21:41:00 l [place] Hemiplegia (disorder) Active Problem 12/03/2020 [facility] Hypothyroi Problem Active 2020-12-03 M emoria dism 21:41:00 l (disorder) [place] n Hypothyroi dism (disorder) Active Problem 12/03/2020 [facility] Seizure Problem Active 2020-12-03 Unruly kieran disorder 21:41:00 l (disorder) Seizure Her sesay disorder (disorder) Active Problem 12/03/2020 [facility] Visual Problem Active 2020-12-03 Memor ia disturbanc 21:41:00 l e Visual [place] (disorder) disturbanc e (disorder) Active Problem 12/03/2020 [facility] No known No known Disease Unive rs active active ity of problems problems [facility] Allergies, Adverse Reactions, Alerts Allergy Allergy Status Severity Reaction(s) Onset Inactive Treating Comm ents Source Name Type Date Date Clinician CEPHALEX DRUG Active High Hives Univers IN INGREDI 8-15 ity of 00:00: [place] 00 [facility] ONDANSET DRUG Active High Other-Cmnt Univ ers CLEO HCL INGREDI 8-15 ity of 00:00: [place] 00 [facility] Branch Cephalex Drug Active Hives Univers in Allergy 8-15 ity of 00:00: [place] 00 Medical Branch Ondanset Drug Active Other - See migraines Univers cleo Hcl Allergy comments 8-15 ity of 00:00: [place] 00 [facility] Zofran Propensi Active Other (See [place]l or Odt ty to Comments) 7-09 [place] adverse 00:00: of reaction 00 Medicin s to e drug Ferumoxy Propensi Active Anaphylaxis B aylor gilberto ty to 6-15 College adverse 00:00: of reaction 00 Medicin s to e drug FERUMOXY DRUG Active Anaphylaxis 0 Uni vers GILBERTO INGREDI 4-26 ity of 00:00: [place] 00 Medical Branch Ferumoxy Propensi Active Anaphylaxis 0 U nivers gilberto ty to 4-26 ity [...] Vomiting noted after MRI Contrast given. Cephalex Propensi Active Hives 2015-04 Univer s in ty to 0-12 ity of adverse 00:00: [place] reaction 00 MD la [facility] Latex Drug Active Dermatitis Univer s Allergy - ity of 00:00: [place] 00 MD Taryn mitchell [facility] Cefpodox Drug Active Hives Univers nannette Allergy 2-22 ity of 00:00: [place] 00 MD [facility] Gadobutr Drug Active Other (See Nausea / Un pau ol Intolera Comments) 06-12 Vomiting- it y of nce 00:00: iodine [place] 00 prior to [facility] Gadobutr Propensi Active Other (See Vomiting1 [facility] ol ty to Comments) 06-12 [...] prior to MRI Latex Propensi Active Swelling [facility] ty to - College adverse 00:00: of reaction 00 Medicin s to e substanc e GADOBUTR DRUG Active High Other-Cmnt Univ ers OL INGREDI 06-12 ity of 00:00: [place] 00 Medical Branch CEFPODOX DRUG Active Med Hives Univers NANNETTE INGREDI 06-12 ity of 00:00: [place] 00 Medical Branch Cephalex Propensi Active Itching 2012-04 [place] r in ty to 13 College adverse 00:00: of reaction 00 Medicin s to e drug LATEX DRUG Active High Rash Univers INGREDI 07-03 ity of 00:00: [place] 00 Medical Branch Latex Drug Active Swelling Univers Allergy 07-03 ity of 00:00: [place] 00 [facility] Cephalex Adverse Active Info Not Commo n in Reaction Available [facility] Zofran Adverse Active Info Not Common Reaction Available [facility] NO KNOWN Drug Active Univers ALLERGIE Class ity of S [facility] cephalex cephalex Active Memori a in in l [place] Latex Latex Active Memoria l [place] Gadavist Gadavist Active Memori a l [place] Zofran Zofran Active Memoria l [place] Feraheme Feraheme Active Memori a l [place] Family History Family Member Diagnosis Comments Start Date Stop Date Source Paternal [facility] Social History Social Habit Start Date Stop Date Quantity Comments Source History SDOH University o f Alcohol Frequency [place] M edical Branch History [facility] University o f Alcohol Std [place] Medical Drinks Branch History Counts include 234 beds at the [facility] o f Alcohol Binge [place] Medic al Branch Exposure to Not sure University of SARS-CoV-2 [place] Medical (event) Branch Alcohol Comment 2021-06-09 2021-06-09 social Universit y of 00:00:00 00:00:00 [facility] Alcohol intake 2020-10-27 2020-10-27 Current drinker [facility] of 00:00:00 00:00:00 of alcohol Medicine (finding) Tobacco use and 2020-02-21 2020-02-21 Never used [facility] llege of exposure 00:00:00 00:00:00 Medicine Social History 2018-10-01 2018-10-01 [facility] 13:53:53 13:53:53 Sex [birth year] Universit y of 00:00:00 00:00:00 [place] MD [facility] Smoking Status Start Date Stop Date Source Never smoker [facility] Medical Branch Medications Ordered Filled Start Stop Current Ordering Indication Dosage Frequency Signature Comments Components Source Medication Medication Date Date Medication? Clinician (SIG) Name Name brannon Yes [id number] 5mL Take 5 mL Univers mine-pseudo 2-19 by mouth 4 it y of ephedrine-D 00:00[place] ([place] (BROMFED 00 times Medical DM) 2-30-10 daily as Bran ch mg/5 mL needed for syrup Congestion /Allergies . benzonatate Yes [id number] 200mg Take 2 Univers 100 mg 2-19 capsules ity of capsule 00:00: by mouth [place] 00 every 8 Medical (eight) Branch hours as needed for Cough. methylPREDN Yes [id number] Take by Univers ISolone 2-19 mouth ity of (MEDROL, 00:00: SEE-INSTRU Raj as JUANI,) 4 mg 00 CTIONS. Medica l tablets follow Branch package directions bromphenira Yes [id number] 5mL Take 5 mL Univers mine-pseudo 2-19 by mouth 4 it y of ephedrine-D 00:00[place] (four[place] (BROMFED 00 times Medical DM) 2-30-10 daily as Bran ch mg/5 mL needed for syrup Congestion /Allergies . benzonatate Yes [id number] 200mg Take 2 Univers 100 mg 2-19 capsules ity of capsule 00:00: by mouth [place] 00 every 8 Medical (eight) Branch hours as needed for Cough. methylPREDN 2021-0 Yes [id number] Take by Univers ISolone 2-19 mouth ity of (MEDROL, 00:00: SEE-INSTRU Raj as JUANI,) 4 mg 00 CTIONS. Medica l tablets follow Branch package directions bromphenira 2020-04 Yes [id number] 5mL Take 5 mL Univers mine-pseudo 1-26 by mouth 4 it y of ephedrine-D 00:00: (four[place] (BROMFED 00 times Medical DM) 2-30-10 daily as Bran ch mg/5 mL needed for syrup Congestion /Allergies or Cough. bromphenira 2020-04- No [id number] 5mL Take 5 mL Univers mine-pseudo 05-16 by mouth 4 i ty of ephedrine-D 00:00: 00:00 (four) Raj as M (BROMFED 00 :00 times Medical DM) 2-30-10 daily as Bran ch mg/5 mL needed for syrup Congestion /Allergies or Cough. hydrOXYchlo 2020-04 Yes 200mg Take 200 U nivers roQUINE 200 0-12 mg by ity of mg tablet 00:00: mouth 2 [place] (two) Medical times Branch daily. hydrOXYchlo 2020-04 Yes 200mg Take 200 U nivers roQUINE 200 0-12 mg by ity of mg tablet 00:00: mouth 2 (two) Medical times Branch daily. hydrOXYchlo 2020-04 Yes 200mg Take 200 U nivers roQUINE 200 0-12 mg by ity of mg tablet 00:00: mouth 2 (two) Medical times Branch daily. hydrOXYchlo 2020-04 Yes 200mg Take 200 U nivers roQUINE 200 0-12 mg by ity of mg tablet 00:00: mouth 2 [place] (two) Medical times Branch daily. ELIQUIS 5 2020-0 Yes Univers mg tablet 9-17 ity of 00:00: 00 Medical Branch ELIQUIS 5 2020-0 Yes Univers mg tablet 9-17 ity of 00:00: 00 Medical Branch ELIQUIS 5 2020-0 Yes Univers mg tablet 9-17 ity of 00:00: [place] 00 Medical Branch ELIQUIS 5 2020-0 Yes Univers mg tablet 9-17 ity of 00:00: [place] 00 Medical Branch VYVANSE 50 2020-0 Yes 50mg Take 50 mg U nivers mg capsule 9-13 by mouth ity o f 00:00: every [place] 00 morning. Medical Branch VYVANSE 50 2020-0 Yes 50mg Take 50 mg U nivers mg capsule 9-13 by mouth ity o f 00:00: every [place] 00 morning. Medical Branch VYVANSE 50 2020-0 Yes 50mg Take 50 mg U nivers mg capsule 9-13 by mouth ity o f 00:00: every [place] 00 morning. Medical Branch VYVANSE 50 2020-0 Yes 50mg Take 50 mg U nivers mg capsule 9-13 by mouth ity o f 00:00: every [place] 00 [facility]. [facility] levothyroxi Yes TAKE 1 Univ ers ne 75 mcg 9-10 TABLET BY ity o f tablet 00:00: MOUTH [place] 00 EVERY DAY Medical IN THE [place] MORNING ON AN EMPTY STOMACH levothyroxi Yes TAKE 1 Univ ers ne 75 mcg 9-10 TABLET BY ity o f tablet 00:00: MOUTH [place] 00 EVERY DAY Medical IN THE [place] MORNING ON AN EMPTY STOMACH levothyroxi Yes TAKE 1 Univ ers ne 75 mcg 9-10 TABLET BY ity o f tablet 00:00: MOUTH [place] 00 EVERY DAY Medical IN THE [place] MORNING ON AN EMPTY STOMACH levothyroxi Yes TAKE 1 Univ ers ne 75 mcg 9-10 TABLET BY ity o f tablet 00:00: MOUTH [place] 00 EVERY DAY Medical IN THE [place] MORNING ON AN EMPTY STOMACH morpHINE 2020- No 4mg 4 mg, Slow Un pau injection 4 12-05 IV Push, ity of mg 02:30: 01:45 ONCE, 1 [place] 00 :00 dose, [facility] Medical 12/04/20 at [place] 2130, STAT proMETHazin No 25mg 25 mg, IV Univers e 12-05 Piggyback, ity of (PHENERGAN) 02:30: 02:30 [place]CE[place] 1 [place] 25 mg in 00 :00 dose, Mon Medica l NaCl 0.9% 12/04/20 at [facility] (NS) 50 mL 0, 50 piggyback mL NaCl 0.9% 2020- No 500mL at [address] [place] [id number] ers (NS) bolus 12-05 mL/hr, 500 it y of infusion 02:30: 04:34 mL, IV [place] 500 mL 00 :00 Piggyback, Medical ONCE, 1 [place] dose, [facility] 12/04/20 at 2130, STAT iopamidol 2020- No [id number] 120mL 120 mL, Univers (ISOVUE 12-05 Intravenou ity o f 370-500 mL) 02:02: 02:05 s, ONCE, 1 [place] injection 00 :00 dose, Mon Medic al 120 mL 12/04/20 at Branch 2115, Routine proMETHazin 2020- No [id number] 25mg Univers e 12-04 ity of (PHENERGAN) 01:00: 01:03 [place] injection 00 :00 Medical 25 mg [place] proMETHazin 2020- No [id number] 25mg 25 mg, Univers e 12-04 Intramuscu ity of (PHENERGAN) 01:00: 01:03 lar, ONCE, [place] injection 00 :00 1 dose, Medical 25 mg [facility] 12/03/20 at 1999, Routine proMETHazin 2020- No [id number] 25mg Univers e 12-04 ity of (PHENERGAN) 01:00: 01:03 [place] injection 00 :00 Medical 25 mg [place] proMETHazin 2020- No [id number] 25mg 25 mg, Univers e 12-04 Intramuscu ity of (PHENERGAN) 01:00: 01:03 lar, ONCE, [place] injection 00 :00 1 dose, Medical 25 mg [facility] 12/03/20 at 1999, Routine Bacillus Yes [facility] Coagulans-I 7-09 [facility] 11:49: of (ALIGN 52 Medicin PREBIOTIC-P e ROBIOTIC OR) Hydroxychlo Yes 200 mg = 1 Memoria roquine 6-24 tab, PO, l Sulfate 200 20:11: Daily, 0 He rmann MG Oral 00 Refill(s) Tablet 24 HR Yes 400 mg = 2 Memori a topiramate 6-24 cap, PO, l 200 MG 20:06: Bedtime, # Rupal nn Extended 00 180 cap, 2 Release Refill(s), Capsule Pharmacy: [[facility]] [id number], 167.64, cm, 10/12/20 14:33:00 CDT, Height, 86.818, kg, 10/12/20 14:33:00 CDT, Weight omeprazole Yes TAKE ONE Mem oria 40 mg oral 6-24 CAPSULE BY l delayed 19:42: MOUTH [place] release 00 EVERY capsule MORNING mesalamine Yes TAKE 2 Memor ia 500 MG 6-24 CAPSULES l Extended 19:42: BY MOUTH Rupal nn Release 00 TWICE Capsule DAILY [Pentasa] Famotidine No 0 Memoria 40 MG Oral 6-24 Refill(s) l Tablet 19:41: [place] 00 linaclotide Yes 145 Memori a 0.145 MG 6-24 microgram l Oral 19:41: = 1 cap, Ricardo Capsule 00 PO, Daily, [Linzess] 30 minutes prior to the first meal of the day, # 30 cap, 0 Refill(s) hydroxychlo Yes [id number] 200mg Take 1 [facility] roquine 5-28 Tablet by [place] (PLAQUINIL) 00:00: mouth two o f 200 MG 00 times Medicin tablet daily. 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, Height, 87.273, kg, 08/29/20 16:36:00 CDT, Weight levothyroxi Yes 50 Memori a ne 50 mcg 5-11 microgram l (0.05 mg) 21:41: = 1 tab, Herm zay oral tablet 00 PO, Daily, # 30 tab, 0 Refill(s) linaCLOtide 2020-0 Yes [facility] (LINZESS) 4-30 [place] 145 MCG 00:00: of CAPS 00 Medicin e linaCLOtide 2020-0 Yes [facility] (LINZESS) 4-30 [place] 145 MCG 00:00: of CAPS Medicin e Mesalamine 2020-0 Yes [facility] (PENTASA) 4-28 [place] 500 MG CPCR 00:00: of 00 Medicin e Mesalamine 2020-0 Yes [facility] (PENTASA) 4-28 [place] 500 MG CPCR 00:00: of 00 Medicin e ELIQUIS 5 2020-0 Yes [facility] MG TABS 4-22 [place] 00:00: of 00 Medicin e ELIQUIS 5 2020-0 Yes [facility] MG TABS 4-22 [place] 00:00: of 00 Medicin e levothyroxi 2020-0 Yes TAKE 1 [facility] or ne 4-07 TABLET BY [place] (SYNTHROID) 00:00: MOUTH of 50 MCG 00 EVERY DAY Medicin tablet IN THE e MORNING ON AN EMPTY STOMACH levothyroxi 2020-0 Yes TAKE 1 [facility]l or ne 4-07 TABLET BY [place] (SYNTHROID) 00:00: MOUTH of 50 MCG 00 EVERY DAY Medicin tablet IN THE e MORNING ON AN EMPTY STOMACH TROKENDI XR 2020-0 Yes 200mg 200 mg. Ba ylor 100 MG CP24 3-16 [place] 00:00: of 00 Medicin e TROKENDI XR 2020-0 Yes 400mg 400 mg. Ba ylor 100 MG CP24 3-16 [place] 00:00: of 00 Medicin e topiramate 2020-0 Yes 400mg 400 mg. Uni vers (TROKENDI 3-16 ity of XR) 100 mg 00:00: [place] [address] Medical Branch topiramate 2020-0 Yes 400mg 400 mg. Uni vers (TROKENDI 3-16 ity of XR) 100 mg 00:00: [place] [id number] 00 Medical Branch topiramate 2020-0 Yes 400mg 400 mg. Uni vers (TROKENDI 3-16 ity of XR) 100 mg 00:00: [place] [address] Medical Branch topiramate 2020-0 Yes 400mg 400 mg. Uni vers (TROKENDI 3-16 ity of XR) 100 mg 00:00: [address] Branch famotidine 2020-0 Yes 40mg 40 mg. [place] (PEPCID) 20 2-25 College MG tablet 00:00: Medicin e famotidine 2020-0 Yes 40mg 40 mg. [place] (PEPCID) 20 2-25 College MG tablet 00:00: Medicin e acetaminoph 2020-0 Yes 500mg Q6H Take 500 M ethodi en (Tylenol 2-[address] Extra 18:53: mouth Hospita Strength) 53 every 6 l 500 MG (six) tablet hours as needed for mild pain. topiramate 1-0 Yes 100mg QD Take 100 Me thodi (Trokendi 2-[address] XR) 100 mg 18:53: mouth Hospit a capsule,ext 53 nightly. l ended release 24hr lisdexamfet 1-0 Yes 50mg QD Take 50 mg Methodi amine 2-[address] (Vyvanse) 18:53: every Hospita 50 MG 53 morning. l capsule famotidine 2020-0 Yes 20mg QD Take 20 mg M ethodi (PEPCID) 20 2-[address] MG tablet 18:53: daily. Hospit a 53 l montelukast 2020-0 Yes 10mg QD Take 10 mg Methodi (SINGULAIR) 2-[address] 10 mg 18:53: daily. Hospita tablet 53 l acetaminoph 2020-0 Yes 500mg Q6H Take 500 M ethodi en (Tylenol 2-[address] Extra 18:53: mouth Hospita Strength) 53 every 6 l 500 MG (six) tablet hours as needed for mild pain. topiramate 2021-0 Yes 100mg QD Take 100 Me thodi [...] 18:53: daily. Hospita tablet 53 l acetaminoph 0 Yes 500mg Q6H Take 500 M ethodi en (Tylenol 2-[address] Extra 12:53: mouth Hospita Strength) 53 every 6 l 500 MG (six) tablet hours as needed for mild pain. topiramate 0 Yes 100mg QD Take 100 Me thodi (Trokendi 2-[address] XR) 100 mg 12:53: mouth Hospit a capsule,ext 53 nightly. l ended release 24hr lisdexamfet 0 Yes 50mg QD Take 50 mg Methodi amine 2-[address] (Vyvanse) 12:53: every Hospita 50 MG 53 morning. l capsule famotidine 0 Yes 20mg QD Take 20 mg M ethodi (PEPCID) 20 2-[address] MG tablet 12:53: daily. Hospit a 53 l montelukast 0 Yes 10mg QD Take 10 mg Methodi (SINGULAIR) 2-[address] 10 mg 12:53: daily. 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 l metoclopram 2019-04- No 1{tbl} Take 1 M ethodi dung HCl 04-30- tablet by st (REGLAN 00:00: 00:00 mouth as Hospi ta ORAL) 00 :00 needed. l metoclopram 2019-04- No 1{tbl} Take 1 M ethodi dung HCl 04-30- tablet by st (REGLAN 00:00: 00:00 mouth as Hospi ta ORAL) 00 :00 needed. l esomeprazol 2019-04 Yes [facility] e (NEXIUM) 0-30 College 40 MG 00:00: of capsule 00 Medicin e esomeprazol 2019-04 Yes Arya e (NEXIUM) 0-30 College 40 MG 00:00: of capsule 00 Medicin e esomeprazol 2019-04 Yes Univer s e 40 mg 0-30 ity of capsule 00:00: [address] esomeprazol 2019- Yes Univer s e 40 mg 0-30 ity of capsule 00:00: [address] esomeprazol 2019- Yes Univer s e 40 mg 0-30 ity of capsule 00:00: [address] esomeprazol 2019- Yes Univer s e 40 mg 0-30 ity of capsule 00:00: [address] Branch omeprazole 2019-04- No 20mg QD Take 1 Meth tanvi OTC 0-28 - tablet (20 st (PriLOSEC 00:00: 05:59 mg total) Ho spita OTC) 20 MG 00 :00 by mouth l EC tablet daily for 30 days. omeprazole 2019-04- No 20mg QD Take 1 Meth tanvi OTC 0-28 -28 tablet (20 st (PriLOSEC 00:00: 05:59 mg total) Ho spita OTC) 20 MG 00 :00 by mouth l EC tablet daily for 30 days. metoclopram 2019-04- No 5mg [id number] Take 1 Methodi dung 0-28 11- [id number] tablet (5 st (Reglan) 5 00:00: 05:59 3D mg total) H ospita MG tablet 00 :00 by mouth 3 l (three) times a day as needed (nausea, vomiting) for up to 5 days. metoclopram 2019-04- No 5mg [id number] Take 1 Methodi dung 0-28 - [id number] tablet (5 st (Reglan) 5 00:00: 05:59 3D mg total) H ospita MG tablet 00 :00 by mouth 3 l (three) times a day as needed (nausea, vomiting) for up to 5 days. lisdexamfet 2019-04 2020- No 40mg QD Take 40 mg Methodi amine 0-26 10-[address] (VYVANSE) 18:16: 00:00 daily. Hospi ta 40 MG 29 :00 (per l capsule patient, stopped taking it last week - unknown reason); (per [place] [facility] Drug Monitoring [facility], last filled 12/18/19, quantity: 30, day supply: 30) lisdexamfet 2019-04- No 40mg QD Take 40 mg Methodi amine 0-26 10-[address] (VYVANSE) 18:16: 00:00 daily. Hospi ta 40 MG 29 :00 (per l capsule patient, stopped taking it last week - unknown reason); (per [place] Prescript[facility] on Drug Monitoring [facility], last filled [...] ONCE A e DAY. metoclopram 2019-04 Yes [facility] dung 0-21 College (REGLAN) 10 [...] 00 HOURS Medicin inhaler e metoclopram 2019-04 [place] 0-21 07-09 [place] ([facility]) 10 00:00: 00:00 of MG tablet 00 :00 Medicin e topiramate 2019-04 1{capsu QD Take 1 M ethodi (Trokendi [...] ~3 weeks ago - per patient) topiramate 2019-04 1{capsu QD Take 1 M ethodi (Trokendi 0-20 10-20 le} capsule by st XR) 100 mg 23:40: 00:00 mouth Hospi ta capsule,ext 28 :00 daily. l ended (Patient release stopped 24hr taking this medication in the summer because she ran out of it) OXCARBAZEPI 2019-04 No (Patient M ethodi NE ORAL 0-20 [...] - per patient) metoclopram 2019-04 No 5mg [id number] Take 1 Methodi dung 0-20 - [id number] tablet (5 st (Reglan) 5 00:00: 00:00 3D mg total) H ospita MG tablet 00 :00 by mouth 3 l (three) times a day as needed (nausea, vomiting) for up to 5 days. metoclopram 2019-04- No 5mg [id number] Take 1 Methodi dung 0-20 02-15 [id number] tablet (5 st (Reglan) 5 00:00: 00:00 3D mg total) H ospita MG tablet 00 :00 by mouth 3 l (three) times a day as needed (nausea, vomiting) for up to 5 days. Vyvanse Vyvanse Yes Na Savage 1 capsule Common 25 in the Spirit 00:00: morning - [facility] 00 [facility] oxcarbazepi Yes 300 mg = 1 Memoria ne 300 MG 9-06 tab, PO, l Oral Tablet 16:04: BID, # 180 [place] [Trileptal] 19 tab, 3 Refill(s), Pharmacy: [facility] #[id number] Yes 100 mg = 1 Memori a topiramate 9-06 cap, PO, l 100 MG 16:04: Daily, # Ricardo Extended 10 90 cap, 3 Release Refill(s), Capsule Pharmacy: [[facility]] [facility] #[id number] HR No 100 mg = 1 Memori a topiramate 9-04 cap, PO, l 100 MG 18:31: Daily, X Ricardo Extended 05 30 day, # Release 30 cap, 3 Capsule Refill(s), [Trokendi] Pharmacy: [facility] [place] oxcarbazepi No 300 mg = 1 Memoria ne 300 MG 9-04 tab, PO, l Oral Tablet 18:31: BID, X 30 H ermann [Trileptal] 02 day, # 60 tab, 3 Refill(s), Pharmacy: [facility] [place] lisdexamfet Yes 30 mg = 1 M emoria amine 8-09 cap, PO, l dimesylate 16:20: QAM, # 30 He rmann 30 MG Oral 00 cap, 0 Capsule Refill(s) [Vyvanse] omeprazole Yes 20 mg = 1 Me moria 20 mg oral 7-17 cap, PO, l delayed 00:27: Daily, # Murray n release 00 30 cap, 2 capsule Refill(s), Pharmacy: [facility] [place] oxcarbazepi Yes 300 mg = 1 Memoria ne 300 MG 7-03 tab, PO, l Oral Tablet 18:01: BID, # 60 H ermann [Trileptal] 00 tab, 2 Refill(s), Pharmacy: [facility] 24 HR Yes 100 mg = 1 Memori a topiramate 6-28 cap, PO, l 100 MG 14:50: Daily, # [place] Extended 00 30 cap, 3 Release Refill(s), Capsule Pharmacy: [Trokendi] [facility] [place] topiramate Yes 25 mg = 1 Me moria 25 MG Oral 6-14 tab, PO, l Tablet 23:33: BID, # 60 Murray n [Topamax] 00 tab, 2 Refill(s), Pharmacy: [facility] Phenytoin Yes 200 mg = 2 Me moria sodium 100 6-13 cap, PO, l MG Extended 13:57: BID, # 120 [place] Release 00 cap, 3 Capsule Refill(s), [Dilantin] Pharmacy: [facility] Alprazolam Yes 0.5 mg = 1 M emoria 0.5 MG Oral 6-13 tab, PO, l Tablet 13:28: TID, 0 [place] [Xanax] 00 Refill(s) Zyrtec 0 Yes Daily, 0 Memoria 6-13 Refill(s) l 13:28: [place] 00 Phenytoin No 100 mg = 1 Me moria sodium 100 6-13 cap, PO, l MG Extended 13:26: TID, # 90 H ermann Release 00 cap, 1 Capsule Refill(s) [Dilantin] montelukast Yes 10mg Take 10 mg Univers 10 mg 1-15 by mouth. ity of tablet 00:00: [address] montelukast Yes 10mg Take 10 mg Univers 10 mg 1-15 by mouth. [facility]ast Yes 10mg Take 10 mg Univers 10 mg 1-15 by mouth. ity of tablet 00:00: [facility] montelukast Yes 10mg Take 10 mg Univers 10 mg 1-15 by mouth. ity of tablet 00:00: [facility] VYVANSE 40 Yes 1{tbl}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 Na STLMLC STLMLC [id number] Common 14:08:33 [id number] [facility] 2021-05-16 Outpatient Savage, Na STLMLC STLMLC [id number] 2 Common 13:55:22 [id number] [facility] 2021-05-16 Outpatient Savage, Na STLMLC STLMLC [id number] 2 Common 13:50:31 00708 [facility] 2021-05-16 Outpatient Savage, Na STLMLC STLMLC [id number] 2 Common 13:20:21 00997 [facility] 2021-05-16 Outpatient Savage, Na STLMLC STLMLC [id number] 2 Common 13:00:40 [id number] [facility] 2021-05-16 Outpatient Savage, Na STLMLC STLMLC [id number] 2 Common 12:46:28 74769 [facility] 2021-05-16 Outpatient Savage, Na STLMLC STLMLC [id number] 2 Common 12:38:13 [id number] [facility] 2021-05-16 Outpatient Savage, Na STLMLC STLMLC [id number] 2 Common 12:35:30 [id number] [facility] 2021-05-16 Outpatient Savage, Na STLMLC STLMLC [id number] 2 Common 12:34:43 94575 [facility] 2021-05-16 Outpatient Savage, Na STLMLC STLMLC [id number] 2 Common 12:31:51 67943 [facility] 2021-05-16 Outpatient Savage, Na STLMLC STLMLC [id number] 2 Common 12:06:00 19616 [facility] 2021-05-16 Outpatient Savage, Na STLMLC STLMLC [id number] 2 Common 12:01:01 50700 [facility] 2021-05-16 Outpatient Savage, Na STLMLC STLMLC [id number] 2 Common 11:58:36 [id number] [facility] 2021-05-16 Outpatient Savage, Na STLMLC STLMLC [id number] 2 Common 11:57:24 84209 [facility] 2021-05-16 Outpatient Savage, Na STLMLC STLMLC [id number] 2 Common 11:34:36 96330 [facility] 2021-05-16 Outpatient Savaeg, Na STLMLC STLMLC [id number] 2 Common 11:08:41 05849 [facility] 2021-05-16 Outpatient Savage, Na STLMLC STLMLC [id number] 2 Common 11:06:29 [id number] [facility] 2021-05-16 Outpatient Savage, Na STLMLC STLMLC [id number] 2 Common 11:05:46 [id number] [facility] 2021-06-12 2021-06-12 ambulatory STLMLC STLMLC [id number] Common 00:00:00 00:00:00 [facility] 2021-06-12 2021-06-12 ambulatory STLMLC STLMLC [id number] Common 00:00:00 00:00:00 [facility] 2021-06-09 2021-06-09 Outpatient R MENDEZ [facility] [id number] Univers 10:40:00 [facility]06:[facility] 2021-06-09 2021-06-09 Urgent Mendez RISHANI 1.2.840.114 [id number] Univers 10:40:00 11:06:50 Care [facility] 350.1.13.10 it y of [place] 4.2.7.2.686 Raj as NINO?BLEA [phone] [address] MEDICAL OFFICE BUILDING 2021-06-09 2021-06-09 Outpatient R [facility] [id number] Univers 10:40:00 10:40:00 [id number] ity of [facility] 2021-06-09 2021-06-09 Telephone Shaylee Ross 1.2.840.114 [id number] Univers 00:00:00 00:00:00 TIMOTHY 350.1.13.10 it y of [facility] 4.2.7.2.686 Raj as [id number] [address] 2021-06-02 2021-06-02 ambulatory STLMLC STLMLC [id number] Common 00:00:00 00:00:00 [facility] 2021-05-21 2021-05-21 ambulatory STLMLC STLMLC [id number] Common 00:00:00 00:00:00 [facility] 2021-05-16 2021-05-16 ambulatory STLMLC STLMLC [id number] Common 00:00:00 00:00:00 [facility] 2021-05-15 2021-05-15 ambulatory STLMLC STLMLC [id number] Common 00:00:00 00:00:00 [facility] 2021-04-27 2021-04-27 ambulatory STLMLC STLMLC [id number] Common 00:00:00 00:00:00 [facility] 2021-03-30 2021-03-30 [facility] Jori Long 1.2.840.1 [id number] [facility] 07:00:00 23:59:00 Encounter 13983.1.1 it y of 3.412.2.7 [place] .3.024112 .8 [facility] 2021-03-30 2021-03-30 Outpatient JORI GREENE MDA, MDA [id number] 07:00:00 23:59:00 Melvin mitchell 2021-03-30 2021-03-30 Outpatient JORI GREENE MDA, MDA [id number] 10:55:42 10:55:42 Melvinjude mitchell 2021-03-30 2021-03-30 Office Jori Long2.840.1 [id number] Univers 09:30:00 09:45:00 Visit StaleyMyrna bartlettne 04377.1.1 ity of 3.412.2.7 [place] .3.332137 MD Geronimo8 [facility] 2021-03-30 2021-03-30 Valentina Staley 1.2.840.1 [id number] Univers 00:00:00 00:00:00 Only Nicki 33897.1.1 it y of 3.412.2.7 [place] .3.989419 MD Geronimo8 [facility] 2021-03-30 2021-03-30 Travel 1.2.840.1 1.2.625.028 [id number] Univers 00:00:00 00:00:00 29192.1.1 350.1.13.41 ity of 3.412.2.7 2.[place]7.3.698 [place] .3.630493 084.8 MD Geronimo8 [facility] 2021-03-30 2021-03-30 Valentina Jori Long 1.2.840.1 [id number] Univers 00:00:00 00:00:00 Only 04007.1.1 ity of 3.412.2.7 [place] .3.188716 MD Geronimo8 [facility] 2021-03-16 2021-03-16 Outpatient R ZAYRA [facility] [id number] Univers 10:20:00 10:27:28 EARLE shearer o f [facility] 2021-03-16 2021-03-16 Urgent Earle Iverson [facility] 1.2.840. 114 [id number] Univers 09:54:29 10:27:28 [facility] 350.1.13.10 ity of [place]ERTO [place]LO[place] 4.2.7.2.686 Raj as NINO?BLEA [id number] [address] MEDICAL OFFICE BUILDING 2021-03-16 2021-03-16 Outpatient R [facility] [id number] Univers 10:20:00 10:20:00 [id number] [facility] 2021-03-13 2021-03-13 ambulatory STLMLC STLMLC [id number] Common 00:00:00 00:00:00 [facility] 2021-03-12 2021-03-12 ambulatory STLMLC STLMLC [id number] Common 00:00:00 00:00:00 [facility] 2021-02-20 2021-02-20 Outpatient R [facility] [id number] Univers 09:20:00 09:38:06 [facility] o f [facility] 2021-02-20 2021-02-20 Urgent [facility] 1.2.840.114 [id number] Univers 09:11:11 09:38:06 Care [facility] 350.1.13.10 i ty of [place] 4.2.7.2.686 Raj as NINO?BLEA [id number] [address] MEDICAL OFFICE BUILDING 2021-02-20 2021-02-20 Outpatient R [facility] [id number] Univers 09:20:00 09:20:00 [id number] [facility] 2021-01-24 2021-01-24 Outpatient STLMLC STLMLC [id number] Common 00:00:00 00:00:00 [facility] 2021-01-06 2021-01-06 Outpatient STLMLC STLMLC [id number] Common 00:00:00 00:00:00 [facility] 2021-01-05 2021-01-05 Outpatient STLMLC STLMLC [id number] Common 00:00:00 00:00:00 [facility] 2021-01-05 2021-01-05 Outpatient STLMLC STLMLC [id number] Common 00:00:00 00:00:00 [facility] 2020-12-29 2020-12-29 Outpatient STLMLC STLMLC [id number] Common 00:00:00 00:00:00 [facility] 2020-12-28 2020-12-28 Outpatient [facility] [id number] Univers 17:20:00 17:20:00 [id number] [facility] 2020-12-28 2020-12-28 Outpatient STLMLC STLMLC [id number] Common 00:00:00 00:00:00 [facility] 2020-12-26 2020-12-26 Outpatient STLMLC STLMLC [id number] Common 00:00:00 00:00:00 [facility] 2020-12-08 2020-12-08 Telephone Harsh 1.2.840.1 [id number] Methodi 00:00:00 00:00:[address] 3.430.2.7 Hospit a .3.759012 l .8 2020-12-07 2020-12-07 Orders Soco Savage 1.2.840.1 [id number] Methodi 00:00:00 00:00:[address] 3.430.2.7 Hospit a .3.748166 l .8 2020-12-06 2020-12-06 Outpatient R [facility] [id number] Univers 12:30:00 12:30:00 [id number] [facility] 2020-12-06 2020-12-06 Outpatient R [facility] [id number] Univers 12:30:00 12:30:00 INOCENTE [facility] 2020-12-05 2020-12-05 Telephone NATI Mason 1.2.810.904 [id number] Univers 00:00:00 00:00:00 Shilpa AGUIRRE 350.1.13.10 it [facility] 4.2.7.2.686 Raj [id number] [address] 2020-12-04 2020-12-04 Emergency [facility] 1.2.840.114 [id number] Univers 20:55:00 23:38:00 Truong Cornelius 350.1.13.10 i ty [facility] 4.2.7.2.686 [facility] [id number] [facility] 084 [place] 2020-12-04 2020-12-04 Outpatient R SHIRAJULIANJuan [facility] [id number] Univers 20:51:53 20:51:53 TRUONG ity [facility] 2020-12-04 2020-12-04 Outpatient STLMLC STLMLC [id number] Common 00:00:00 00:00:00 [facility] 2020-12-03 2020-12-03 Urgent Provider, [facility] 1.2.840.114 [id number] Univers 18:59:54 19:19:54 Care Tessa Mendoza [facility] 350.1.13.10 [facility] 4.2.7.2.686 Raj as Profmarcialio [id number] [facility] 044 [place] Office [facility] 2020-12-03 2020-12-03 Outpatient [facility] [id number] Univers 18:40:00 18:40:00 [id number] ity [facility] 2020-12-03 2020-12-03 Outpatient R REJI [facility] [id number] Univers 18:40:00 18:40:00 TESSA shearer o f [facility] 2020-12-01 2020-12-01 Ambulatory nullFlavo [facility]NA [id number] 16:30:00 Pre-Reg r Neurology 16 l Parkerrosa Silva 2020-10-27 2020-10-27 Office ROMULO Walters 1.2.840.114 [id number] 11:43:47 12:34:19 Visit Chika AMBULATOR 350.1.13.21 Y 0.2.7.2.686 [id number] 370 2020-10-27 2020-10-27 Office ROMULO Walters 1.2.840.[id number] [place] [address] 11:43:47 12:34:19 Visit Chika AMBULATOR 350.1.13.21 College Y 0.2.7.2.686 of [id number] [facility] 370 e 2020-10-18 2020-10-18 Outpatient STLMLC STLMLC [id number] Common 00:00:00 00:00:00 [facility] 2020-10-13 2020-10-13 Outpatient MHIE MHIE [id number] Memoria 10:30:00 10:30:00 14 l Ricardo 2020-10-12 2020-10-13 Outpatient nullFlavo MNA [id number] Memoria 19:15:00 04:59:59 r Neurology 15 l Ean Garfield 2020-10-11 2020-10-11 Outpatient STLMLC STLMLC [id number] Common 00:00:00 00:00:00 [facility] 2020-09-08 2020-09-[address] [facility], [facility] 1.2.840.114 [id number] 10:12:53 13:09:00 Visit Chika AMBULATOR 350.1.13.21 Suresh Y 0.2.7.2.686 [id number] 370 2020-09-08 2020-09-08 Office Selena, [facility] 1.2.840.[id number] [place] [address] 10:12:53 13:09:00 Visit Chika AMBULATOR 350.1.13.21 College Suresh Y 0.2.7.2.686 of [id number] Medi юлия 370 e 2020-09-08 2020-09-08 Outpatient STLMLC STLMLC [id number] Common 00:00:00 00:00:00 [facility] 2020-09-07 2020-09-07 Outpatient STLMLC STLMLC [id number] Common 00:00:00 00:00:00 [facility] 2020-09-01 2020-09-01 Outpatient STLMLC STLMLC [id number] Common 00:00:00 00:00:00 [facility] 2020-08-29 2020-08-30 Outpatient nullFlavo MNA [id number] Memoria 20:45:00 04:59:59 r Neurology 13 l Parkerrosa Lrann 2020-08-28 2020-08-28 Outpatient STLMLC STLMLC [id number] Common 00:00:00 00:00:00 [facility] 2020-08-15 2020-08-15 Outpatient STLMLC STLMLC [id number] Common 00:00:00 00:00:00 [facility] 2020-08-08 2020-08-08 Outpatient STLMLC STLMLC [id number] Common 00:00:00 00:00:00 [facility] 2020-08-08 2020-08-08 Outpatient STLMLC STLMLC [id number] Common 00:00:00 00:00:00 [facility] 2020-08-07 2020-08-07 Outpatient STLMLC STLMLC [id number] Common 00:00:00 00:00:00 [facility] 2020-07-26 2020-07-26 Outpatient STLMLC STLMLC [id number] Common 00:00:00 00:00:00 [facility] 2020-07-20 2020-07-20 Outpatient STLMLC STLMLC [id number] Common 00:00:00 00:00:00 [facility] 2020-07-10 2020-07-10 Outpatient STLMLC STLMLC [id number] Common 00:00:00 00:00:00 [facility] 2020-07-10 2020-07-10 Outpatient STLMLC STLMLC [id number] Common 00:00:00 00:00:00 [facility] 2020-07-06 2020-07-06 Outpatient STLMLC STLMLC [id number] Common 00:00:00 00:00:00 [facility] 2020-07-04 2020-07-04 Outpatient STLMLC STLMLC [id number] Common 00:00:00 00:00:00 [facility] 2020-06-30 2020-06-30 Outpatient STLMLC STLMLC [id number] Common 00:00:00 00:00:00 [facility] 2020-06-27 2020-06-27 Outpatient STLMLC STLMLC [id number] Common 00:00:00 00:00:00 [facility] 2020-06-20 2020-06-20 Outpatient STLMLC STLMLC [id number] Common 00:00:00 00:00:00 [facility] 2020-06-19 2020-06-19 Outpatient STLMLC STLMLC [id number] Common 00:00:00 00:00:00 [facility] 2020-06-14 2020-06-[address] [facility] [id number] Memoria 21:54:19 05:59:59 Medical r Neurology 01 l [facility] Ean Silva 2020-06-12 2020-06-12 Outpatient STLMLC STLMLC [id number] Common 00:00:00 00:00:00 [facility] 2020-06-12 2020-06-12 Outpatient STLMLC STLMLC [id number] Common 00:00:00 00:00:00 [facility] 2020-06-10 2020-06-10 Infusion Alhaji, 1.2.840.1 [id number] Methodi 11:41:17 14:59:06 Marques Lobo 68108.1.[address] 3.430.2.7 Hospit a .3.642534 l .8 2020-06-10 2020-06-10 Travel 1.2.840.1 1.2.997.613 [id number] Methodi 00:00:00 00:00:[address] 3.430.2.7 0.2.7.3.698 Ho spita .3.592943 084.8 l .8 2020-06-10 2020-06-10 Orders Anival 1.2.840.1 [id number] Methodi 00:00:00 00:00:00 Only Sue 59319.1.[address] 3.430.2.7 Hospit a .3.528669 l .8 2020-06-10 2020-06-10 Chandrakant Florian 1.2.840.1 [id number] Methodi 00:00:00 00:00:[address] 3.430.2.7 Hospit a .3.440457 l .8 2020-06-10 2020-06-10 Orders Anival, 1.2.840.1 [id number] Methodi 00:00:00 00:00:00 Only Sue 92121.1.[address] 3.430.2.7 Hospit a .3.269964 l .8 2020-06-09 2020-06-09 Outpatient STLMLC STLMLC [id number] Common 00:00:00 00:00:00 [facility] 2020-06-09 2020-06-09 Outpatient STLMLC STLMLC [id number] Common 00:00:00 00:00:00 [facility] 2020-06-04 2020-06-07 [facility] Lyndsay Caleb 1.2.840.1 [id number] Methodi 00:56:00 14:30:00 Encounter Kanchan Downey 37024.1.1 47 3 Jen Tsai [id number] [facility]ospita [id number] l .8 2020-05-31 2020-06-01 Outpatient nullFlavo MNA [id number] Memoria 17:30:00 05:59:59 r Neurology 12 l Parker Garfield 2020-05-31 2020-05-31 Ambulatory nullFlavo MNA [id number] Memoria 21:30:00 21:30:00 Pre-Reg r Neurology 11 l Parker Garfield 2020-04-19 2020-04-20 Outpatient nullFlavo MNA [id number] Memoria 20:00:00 05:59:59 r Neurology 10 l Parker Ricardo 2020-04-18 2020-04-18 Outpatient STLMLC STLMLC [id number] Common 00:00:00 00:00:00 [facility] 2020-04-11 2020-04-12 Outpatient nullFlavo MNA [id number] Memoria 16:00:00 05:59:59 r Neurology 09 l Parker Ricardo 2020-03-29 2020-03-30 Outpatient nullFlavo MNA [id number] Memoria 20:00:00 05:59:59 r Neurology 08 l Parker Garfield 2020-03-22 2020-03-22 Outpatient STLMLC STLMLC [id number] Common 00:00:00 00:00:00 [facility] 2020-03-16 2020-03-16 Outpatient STLMLC STLMLC [id number] Common 00:00:00 00:00:00 [facility] 2020-03-08 2020-03-08 Office Isidro Ruby 1.2.840.1 [id number] Methodi 12:36:03 16:19:47 Visit Go 25438.1.[address] 3.430.2.7 Hospit a .3.592757 l .8 2020-03-08 2020-03-08 Travel 1.2.840.1 1.2.364.697 [id number] Methodi 00:00:00 00:00:[address] 3.430.2.7 0.2.7.3.698 Ho spita .3.360918 084.8 l .8 2020-03-07 2020-03-07 Outpatient STLMLC STLMLC [id number] Common 00:00:00 00:00:00 [facility] 2020-02-29 2020-03-01 Outpatient nullFlavo MNA [id number] Memoria 17:15:00 05:59:59 r Neurology 07 l Ean Silva 2020-02-21 2020-02-21 Outpatient STLMLC STLMLC [id number] Common 00:00:00 00:00:00 [facility] 2020-02-17 2020-02-17 Outpatient STLMLC STLMLC [id number] Common 00:00:00 00:00:00 [facility] 2020-02-12 2020-02-16 [facility] Shira Benedict 1.2.840.1 [id number] Methodi 07:45:00 12:40:00 Encounter Yesi Maldonado 36044.1.[address] 3.430.2.7 Hospit a .3.943244 l .8 2020-02-15 2020-02-15 Ambulatory nullFlavo MNA [id number] Memoria 14:15:00 14:15:00 Pre-Reg r Neurology 06 l Parkerrosa Silva 2020-02-15 2020-02-15 Telephone TungHenokw 1.2.840.1 [id number] Methodi 00:00:00 00:00:[address] 3.430.2.7 Hospit a .3.557382 l .8 2020-02-13 2020-02-13 Orders Diogo Blandon 1.2.840.1 [id number] Methodi 00:00:00 00:00:[address] 3.430.2.7 Hospit a .3.432200 l .8 2020-02-11 2020-02-11 Telephone TungHenokw 1.2.840.1 [id number] Methodi 00:00:00 00:00:[address] 3.430.2.7 Hospit a .3.998171 l .8 2020-02-09 2020-02-09 Outpatient STLMLC STLMLC [id number] Common 00:00:00 00:00:00 [facility] 2020-02-03 2020-02-08 [facility] Kim Guevara 1.2.840.1 [id number] Methodi 14:30:00 18:40:00 Encounter Aldo Pineda 73714.1.[address] [facility] 3.430.2.7 Hospita .3.891194 l .8 2020-02-07 2020-02-07 Telephone García, 1.2.840.1 [id number] Methodi 00:00:00 00:00:[address] 3.430.2.7 Hospit a .3.825177 l .8 2020-02-03 2020-02-03 Telephone Ricky, 1.2.840.1 [id number] Methodi 00:00:00 00:00:[address] 3.430.2.7 Hospit a .3.727810 l .8 2020-01-17 2020-01-17 Outpatient [facility] [id number] Common 00:00:00 00:00:00 [facility] 2019-12-14 2019-12-14 [facility] [id number] Common 10:48:00 10:48:[address] [facility] 2019-11-23 2019-11-23 [facility] [id number] Common 09:00:00 09:00:[address] [facility] 2019-11-23 2019-11-23 [facility] [id number] Common 08:05:00 08:05:[address] [facility] 2019-10-15 2019-10-15 [facility] [id number] Common 08:44:00 08:44:[address] [facility] 2019-09-07 2019-09-07 [facility] [id number] Common 11:56:00 11:56:[address] [facility] 2019-08-13 2019-08-13 [facility] [id number] Common 10:20:00 10:20:[address] [facility] 2019-08-12 2019-08-12 [facility] [id number] Common 09:49:00 09:49:[address] [facility] 2019-06-15 2019-06-15 [facility] 29 [id number] Common 15:24:00 15:24:[address] [facility] 2019-06-09 2019-06-09 [facility] [id number] Common 08:40:00 08:40:[address] [facility] 2019-06-03 2019-06-03 [facility] 29 [id number] Common 10:52:00 10:52:[address] [facility] 2019-05-28 2019-05-28 [facility] [id number] Common 16:20:00 16:20:[address] [facility] 2019-05-21 2019-05-23 Outside nullFlavo MNA [id number] Memoria 20:44:00 05:59:59 Medical r Neurology 00 l Records Ean Silva 2019-04-28 2019-04-28 Ambulatory nullFlavo MNA [id number] Memoria 19:00:00 19:00:00 Pre-Reg r Neurology 05 l Ean Silva 2019-01-01 2019-01-01 [facility] [id number] Common 15:32:00 15:32:[address] [facility] 2018-12-31 2018-12-31 [facility] 27 [id number] Common 09:55:00 09:55:[address] [facility] 2018-12-30 2018-12-30 [facility] [id number] Common 13:25:00 13:25:[address] [facility] 2018-12-30 2018-12-30 [facility] [id number] Common 08:00:00 08:00:[address] [facility] 2018-12-29 2018-12-29 [facility] [id number] Common 09:42:00 09:42:[address] [facility] 2018-12-23 2018-12-24 Outpatient nullFlavo MNA [id number] Memoria 18:15:00 04:59:59 r Neurology 04 l Ean Silva 2018-12-04 2018-12-04 [facility] [id number] Common 16:20:00 16:20:[address] [facility] 2018-11-30 2018-11-30 [facility] [id number] Common 10:08:00 10:08:00 t [facility] 2018-11-27 2018-11-28 Outpatient nullFlavo MNA [id number] Memoria 15:45:00 04:59:59 r Neurology 03 l Parker Ricardo 2018-11-27 2018-11-27 [facility] [id number] Common 13:00:00 13:00:[address] [facility] 2018-10-29 2018-10-29 [facility] [id number] Common 10:40:00 10:40:[address] [facility] 2018-10-16 2018-10-17 Outpatient nullFlavo MNA [id number] Memoria 14:00:00 04:59:59 r Neurology 02 l Ean Silva 2018-10-02 2018-10-03 Outpatient nullFlavo MNA [id number] Memoria 20:00:00 04:59:59 r Neurology 01 l Parker Ricardo 2018-10-01 2018-10-02 Outpatient nullFlavo MNA [id number] Memoria 13:15:00 04:59:59 r Neurology 00 l Parker Ricardo 2018-09-30 2018-09-30 [facility] [id number] Common 13:00:00 13:00:[address] [facility] 2018-08-31 2018-08-31 [facility] [id number] Common 11:00:00 11:00:[address] [facility] 2018-07-27 2018-07-27 [facility] [id number] Common 13:54:00 13:54:[address] [facility] 2018-07-23 2018-07-23 [facility] 25 [id number] Common 08:53:00 08:53:[address] [facility] 2018-07-23 2018-07-23 [facility] [id number] Common 08:15:00 08:15:[address] [facility] 2018-06-22 2018-06-22 [facility] 24 [id number] Common 10:30:00 10:30:[address] [facility] 2018-05-04 2018-05-04 [facility] 23 [id number] Common 12:00:00 12:00:[address] [facility] 2018-04-02 2018-04-02 [facility] [id number] Common 09:00:00 09:00:[address] [facility] Results Test Description Test Time Test Comments Results Result Comments Source POCT MOLECULAR FLU 2021-06-09 17:13:56 Test Item Value Reference Range Interpretation Comme nts POCT Molecular FluA (test code = 61580-4) Negative Negative POCT Molecular FluB (test code = 53436-3) Negative Negative Lab Interpretation (test code = 85850-9) Normal [facility] [id number] 17:04:30 Test Item Value Reference Range Interpretation Comments POCT Molecular Strep (test code = Negative Negative 04353-1) Lab Interpretation (test code = Normal 77040-8) [facility] Interpretation Antibody Screen Negative 2021-03-31 02:35:52 Test Item Value Reference Range Interpretation Comments TMP Auto Neg At the present ABSC Interp time, patient (test code = plasma shows no FE RNANDO 7535) evidence of RBC OTONIELDic tated by: zaida. VALERIE FREDERICK,Dictat ed Date/Time: 03.21 20:35 PM EDUCATION GENERAL MANAGER Transcribed Date/Time: 03.21 20:35 PM CSTElectronical ly Signed By: JUDE FREDERICK, on 03.30.2021 20:3 5 PM [facility]Antibody [id number] 21:46:12 Test Item Value Reference Range Interpretation Comments ABSC. (test code = 890-4) Negative ABSC [facility]ABORh2021-12-10 21:46:11 Test Item Value Reference Range Interpretation Comments ABORh. (test code = 882-1) A POS [facility] CenterClot Expiration [id number] 21:45:59 Test Item Value Reference Range Interpretation Comments T & S Expiration (test code = 04/02/2021 5318) [facility] CenterMD t(15;17) PML-LEN Quantitative PCR Collection, [id number] 19:40:53 Test Item Value Reference Range Interpretation Comments Molecular Diagnostics (Received) (test Yes code = 8400) [facility] CenterFractionated [id number] 18:26:21 Test Item Value Reference Range Interpretation [...] 28 g/L. [Automate d message] The system [employer] generated this result transmitted ref erence range: [...] par ameters are outside rep ortable range [facility] CenterGlucose, [id number] 18:26:19 Test Item Value Reference Range Interpretation Comments Glucose Random (test 62 mg/dL 70-199 L Effecti ve 11/15/15, code = 9360) the glucose reference intervals have been updated ba sed on [place] [employer] guidelines (Standards of Medical Care [...] Track Lab Interpretation Abnormal (test code = 72703-8) [facility] CenterPhosphorus [id number] 18:26:17 Test Item Value Reference Range Interpretation Comments Phosphorus (test code = 3.8 mg/dL 2.5-4.5 6817) HAL (test code = HAL) Schedule in Fast Track [facility] CenterGlomerular Filtration Rate 2021-03-30 18:26:16 Test Item Value Reference Range Interpretation [...] code Schedule in Fast = HAL) Track [facility] CenterLDH2021-12-10 18:26:15 Test Item Value Reference Range Interpretation [...] code Schedule in Fast = HAL) Track [facility] CenterUric [id number] 18:26:14 Test Item Value Reference Range Interpretation Comments Uric Acid (test code = 3.4 mg/dL 2.4-5.7 7955) HAL (test code = HAL) Schedule in Fast Track [facility] CenterCalcium [id number] 18:26:13 Test Item Value Reference Range Interpretation Comments Calcium Lvl (test code 8.8 mg/dL 8.4-10.2 = 5258) HAL (test code = HAL) Schedule in Fast Track [facility] CenterTotal [id number] 18:26:12 Test Item Value Reference Range Interpretation Comments Total Protein (test 6.8 g/dL 6.4-8.3 code = 7649) HAL (test code = HAL) Schedule in Fast Track [facility] CenterAlbumin [id number] 18:26:11 Test Item Value Reference Range Interpretation Comments Albumin Lvl (test 4.5 See_Comment [Automate d message] code = 4763) The system whic h generated this result transmit leon reference range : 3.5 - 5.2 gm/dL. Th e reference range was not used to interpret this result as normal/abnormal . HAL (test code = Schedule in Fast HAL) Track [facility] CenterMagnesium [id number] 18:26:10 Test Item Value Reference Range Interpretation Comments Magnesium (test code = 2.2 mg/dL 1.6-2.6 6359) HAL (test code = HAL) Schedule in Fast Track [facility] CenterElectrolyte [id number] 18:26:09 Test Item Value Reference Range Interpretation [...] Chloride (test 104 See_Comment [Automated code = 5279) message] The sy stem which generated this result transmitted reference range : 98 - 107 mEq/L. Th e reference range was not used to interpret this result as normal/abnormal . CO2 (test code = 27 See_Comment [Automated 1721) message] The sy stem which generated this [...] code = Schedule in Fast HAL) Track [facility] CenterAlkaline Qezmjqkpuoi1016-11-96 18:26:08 Test Item Value Reference Range Interpretation Comments Alk Phos (test code = 69 U/L 35-104 4768) HAL (test code = HAL) Schedule in Fast Track [facility] CenterAlanine Rbvzodykwfxqzdnn2755-76-57 18:26:07 Test Item Value Reference Range Interpretation Comments ALT (test code 17 U/L See_Comment [Automated m essage] = 4705) The system avox h generated this result transmitted ref erence range: <=33. Th e reference range was not used to int erpret this result as normal/abnormal . HAL (test code Schedule in Fast = HAL) Track [facility].Serum Scxvvqegkr4059-94-73 18:26:06 Test Item Value Reference Range Interpretation Comments Creatinine (test code = 0.95 mg/dL 0.51-0.95 5399) HAL (test code = HAL) Schedule in Fast Track [facility] CenterBUN2021-12-10 18:26:04 Test Item Value Reference Range Interpretation Comments BUN (test code = 5055) 12 mg/dL 6-23 [facility] CenterDifferential2021-12-10 17:28:47 Test Item Value Reference Range Interpretation Comments Neutrophil % (test 75.3 % 42.0-66.0 H code = 85271-5) Lymphocyte % (test 16.8 % 24.0-44.0 L code = 737-7) Monocyte % (test code 6.3 % 2.0-7.0 = 744-3) Eosinophil % (test 0.8 % 1.0-4.0 L code = 713-8) Basophil % (test code 0.5 % 0.0-1.0 = 707-0) IGRE % (test code = 0.3 % 0.0-0.4 IGRE % c ount 43068-5) includes Metamyelocytes, Myelocytes, and Promyelocytes. Neutrophil Abs (test 7.10 K/uL 1.70-7.30 code = 753-4) Lymphocyte Abs (test 1.59 K/uL 1.00-4.80 code = 732-8) Monocyte Abs (test 0.59 K/uL 0.08-0.70 code = 743-5) Eosinophil Abs (test 0.08 K/uL 0.04-0.40 code = 712-0) Basophil Abs (test 0.05 K/uL 0.00-0.10 code = 705-4) IG Abs (test code = 0.03 K/uL 0.00-0.04 38212-8) HAL (test code = HAL) Schedule in Fast Track Lab Interpretation Abnormal (test code = 59609-4) [facility].[id number] 17:28:40 Test Item Value Reference Range Interpretation Comments WBC (test code = 9.4 K/uL 4.0-11.0 6690-2) RBC (test code = 4.53 See_Comment [Automated 789-8) message] The sy stem which generated this result transmitted reference range : 4.00 - 5.50 M/u L. The reference r gee was not used to interpret this result as normal/abnormal . Hgb (test code = 13.0 See_Comment [Automated 748-7) message] The sy stem which generated this [...] RDW-SD (test code = 40.1 fL 35.1-46.3 09763-8) RDW-CV (test code = 12.3 % 12.0-15.5 [...] differenti al. [Automated mess age] The system whic h generated this result transmit leon reference range : <=0.0. The reference range was not used to interpret this result as normal/abnormal . HAL (test code = HAL) Schedule in Fast Track Lab Interpretation Abnormal (test code = 61893-9) [facility] MorrisPOCT GRP A STREP (MOLECULAR) 2021-03-16 16:11:00 Test Item Value Reference Range Interpretation Comments POCT GP A STREP (test negative Negative - code = 80011-3) Negative HAL (test code = HAL) accurate development and interpretation of all internal controls Lab Interpretation Normal (test code = 47637-9) [facility] Hospital[facility] ABDOMEN PELVIS W [id number] 02:55:38 No acute abdominopelvic process. Preliminary Report [...] process.Preliminary Report Dictated by Resident: Maico Mcintosh, Ntai Florence MD., have reviewed this study and agree with theabove report.[facility] HospitalXR CHEST 1 [id number] 02:48:05 No radiographic evidence of acute cardiopulmonary [...] reviewed this study and agree with theabove report.[facility] HospitalDEVONPRISMA HEALTH HILLCREST HOSPITALDRAKE [id number] 02:05:12 Test Item Value Reference Interpretation Comments Range TROPONIN I (test 0.014 ng/mL See_Comment [Automated code = 0557246196) message] The system which generated this result [...] biotin. Lab Interpretation Normal (test code = 02548-8) [facility]. METABOLIC PANEL (71926)2020-12-05 01:53:53 Test Item Value Reference Range Interpretation Comments NA (test code = 139 mmol/L 135-145 8171665455) K (test code = 3.7 mmol/L 3.5-5.0 1853347947) CL (test code = 109 mmol/L 98-108 H 7791137045) CO2 TOTAL (test code = 22 mmol/L 23-31 L 9587716883) AGAP (test code = 2-16 8795027354) BUN (test code = 17 mg/dL 7-23 2061723790) GLUCOSE (test code = 99 mg/dL 70-110 5525912229) CREATININE (test code = 1.14 mg/dL 0.50-1.04 H 2274151672) TOTAL BILI (test code = 0.3 mg/dL 0.1-1.0 5283874805) CALCIUM (test code = 8.7 mg/dL 8.6-10.6 1754739968) T PROTEIN (test code = 7.4 g/dL 6.3-8.2 3003684600) ALBUMIN (test code = 4.7 g/dL 3.5-5.0 3687724601) ALK PHOS (test code = 62 U/L 34-122 6639663025) ALTv (test code = 16 U/L 5-35 1742-6) AST(SGOT) (test code = 18 U/L 13-40 1090446569) eGFR (test code = mL/min/1.73m2 5196387367) HAL (test code = HAL) Association of [...] tests). Lab Interpretation Abnormal (test code = 25699-0) [facility] HospitalLIPASE2021-08-17 01:53:12 Test Item Value Reference Range Interpretation Comments LIPASE (test code = 6548656590) 101 U/L 0-220 Lab Interpretation (test code = Normal 14619-7) [facility] HospitalURINALYSIS2021-08-17 01:52:17 Test Item Value Reference Range Interpretation Comments APPEARANCE (test code = Cloudy Clear A 3028960158) COLOR (test code = Yellow Yellow 9557807096) PH (test code = 4.8-8.0 7363984015) SP GRAVITY (test code = 1.003-1.030 4546151634) GLU U QUAL (test code = Normal Normal 6909601263) BLOOD (test code = Negative Negative 9488263455) KETONES (test code = Negative Negative 1229315467) PROTEIN (test code = Negative Negative 2887-8) UROBILIN (test code = 4.0 mg/dL Normal A 9886139702) BILIRUBIN (test code = Negative Negative 2306769464) NITRITE (test code = Negative Negative 7280585053) LEUK REKHA (test code = Negative Negative 7504385480) RBC/HPF (test code = See_Comment [Autom ated message] 2381963641) The system [employer] generated this result transmit leon reference range : 0 - 3 HPF. The refe rence range was not u sed to interpret th is result as normal/abnormal . WBC/HPF (test code = <1 See_Comment [Autom ated message] 3893908383) The system whic h generated this result transmit leon reference range : 0 - 5 HPF. The refe rence range was not u sed to interpret th is result as normal/abnormal . BACTERIA (test code = Many Negative A 0534281825) MUCOUS (test code = Slight Negative LPF A 9067306583) AMORPHOUS (test code = Moderate Rare HPF A 8791317335) SQ EPITH (test code = HPF 9993634951) Lab Interpretation (test Abnormal code = 67739-5) [facility] WITH [id number] 01:42:11 Test Item Value Reference Range Interpretation [...] RDW-SD (test code = 41.1 fL 39.0-49.9 78001-1) RDW-CV (test code = 13.5 % 12.0-15.5 788-0) PLT (test code = See_Comment [Automated 777-3) message] The sy stem which generated this result transmitted reference range : 166 - 358 10*3/ ?L. The reference r gee was not used to interpret this result as normal/abnormal . MPV (test code = 12.3 fL 9.5-12.9 63476-0) NRBC/100 WBC (test See_Comment [Automat ed code = 0452666201) message] The system which generated this result transmitted reference range : 0.0 - 10.0 /100 WBCs. The refer ence range was not u sed to interpret th is result as normal/abnormal . NRBC x10^3 (test code <0.01 See_Comment [Auto mated = 0248535643) message] The s ystem which generated this result transmitted reference range : 10*3/?L. The reference range was not used to interpret this result as normal/abnormal . GRAN MAT (NEUT) % 54.5 % (test code = 770-8) IMM GRAN % (test code 0.40 % = 3480467249) LYMPH % (test code = 33.6 % 736-9) MONO % (test code = 8.5 % 5905-5) EOS % (test code = 2.4 % 713-8) BASO % (test code = 0.6 % 706-2) GRAN MAT x10^3(ANC) 2.69 10*3/uL 1.88-7.09 (test code = 0000621838) IMM GRAN x10^3 (test <0.03 0.00-0.06 code = 6532827200) LYMPH x10^3 (test code 1.66 10*3/uL 1.32-3.29 = 731-0) MONO x10^3 (test code 0.42 10*3/uL 0.33-0.92 = 742-7) EOS x10^3 (test code = 0.12 10*3/uL 0.03-0.39 711-2) BASO x10^3 (test code 0.03 10*3/uL 0.01-0.07 = 704-7) Lab Interpretation Abnormal (test code = 28150-8) [facility] [id number] 01:31:00 Test Item Value Reference Range Interpretation Comments POCT PREG (test code = 1605) negative On board controls acceptable with present C Line (test code = 3574) POCT PREG LOT # (test code = 3575) [id number] POCT PREG TEST DATE (test 12/31/22 code = 3576) Lab Interpretation (test code = Normal 79817-3) [facility] GRP A STREP (MOLECULAR)2020-12-04 00:43:00 Test Item Value Reference Range Interpretation Comments POCT GP A STREP (test code = Negative Negative - Negative 67266-3) Lab Interpretation (test code = Normal 42874-3) [facility] GRP A STREP (MOLECULAR)2020-12-04 00:43:00 Test Item Value Reference Range Interpretation Comments POCT GP A STREP (test code = Negative Negative - Negative 05725-6) Lab Interpretation (test code = Normal 06763-6) [facility] Thoracic Spine W [id number] 23:13:41EXAMINATION: MRI THORACIC SPINE W CONTRAST CLINICAL [...] neural foraminal stenosis. [id number] Interface, Radiology Results - 06/06/2020 5:16 PM CSTFormatting of this [...] significant spinal canal or neural foraminal stenosis.[id number]_[id number] [facility] [place] [place] Thoracic Spine W [id number] 23:13:41EXAMINATION: MRI THORACIC SPINE W CONTRAST CLINICAL [...] [id number]_PS02 Interface, Radiology Results 06/06/2020 5:16 PM CSTFormatting of this note [...] heights are preserved. Bone marrow signal is unre markable with no evidence of acute fracture or suspicious marrow-replacing lesion. T8-9: Again notedis chronic Schmorl's node along T8 inferior endplate, moderate disc height loss, and shallow broad-based left paracentral disc protrusion without significant spinal canal stenosis.No significant neural foraminal stenosis.Visualized paraspinal soft tissues are unremarkable.IMPRESSION:Stable thoracic spinal MRI with unremarkable spinal cord, no evidence of demyelinating lesion. Stable mild spondylosis at T8-9 without significant spinal canal or neural foraminal stenosis.1M2RAD_PS02 [facility] [place] [place] Cervical Spine W [id number] 23:08:17EXAMINATION: MRI CERVICAL SPINE W CONTRAST CLINICAL [...] spine abnormality identified. No enhancing lesion identified. [facility][id number] Interface, Radiology Results 06/06/2020 5:11 PM CST [...] cervical spine abnormality identified. No enhancing lesion identified.[facility]-[id number] HospitalMRI Cervical Spine W Contrast 2020-06-06 23:08:17EXAMINATION: MRI CERVICAL SPINE W CONTRAST CLINICAL [...] tissues. No enhancing lesion identified on the p ostcontrast images. Cervical alignment is preserved with normal [...] spine abnormality identified. No enhancing lesion identified. [facility] [id number] Interface, Radiology Results 06/06/2020 5:11 PM CST [...] spondylolisthesis. Axial images through the disc spaces demonstratethe following:C1-C2: The atlantoaxial interval is intact with [...] significant posterior disc disease, spinal canal or neuralforaminal stenosis.No significant posterior disc disease, spinal canal or neural foraminal stenosis at other visualized levels.IMPRESSION: No significant cervical spine abnormality identified. No enhancing lesion identified.[facility]-[id number] [place] [place] Brain W Wo [id number] 22:41:58EXAMINATION: MRI BRAIN W WO CONTRAST CLINICAL [...] demyelinating lesion or other acute intracranial abnormality.1M2RAD_PS02[facility] Brain W Wo Gtvbmyhj0204-52-06 22:41:58EXAMINATION: MRI BRAIN W WO CONTRAST CLINICAL [...] intracranial abnormality. 1M2RAD_PS02Hm Interface, Radiology Results Incoming - 06/06/2020 4 :45 PM CST EXAMINATION: MRI BRAIN W WO [...] of demyelinating lesion or other acute intracranial abnormality.1M2RAD _PS02[facility] HospitalCT Chest Wo Qkjuylod9512-31-95 18:08:03EXAMINATION: CT CHEST WO CONTRAST HISTORY: COVID-19 [...] this is compatible with mild Covid pneumonia. [facility]-[id number] Interface, Radiology Results Incoming - 06/06/2020 12:11 PM CST EXAMINATION: [...] findings, this is compatible with mild Covid pneumonia.[facility]-[id number] HospitalNC Chest Wo Drvadyxi9959-04-10 18:08:03EXAMINATION: CT CHEST WO CONTRAST HISTORY: COVID-19 [...] this is compatible with mild Covid pneumonia. [facility]-[id number] Interface, Radiology Results 06/06/2020 12:11 PM CST [...] findings, this is compatible with mild Covid pneumonia.[facility]-[id number]. [facility] xwbnkec3802-39-55 18:51:05 Test Item Value Reference Range Interpretation Comments Urine culture (test SEE COMMENT Bacteriu kieran screen code = 6654572) negative. [facility] zmqpmlx4922-61-65 18:51:05 Test Item Value Reference Range Interpretation Comments Urine culture (test SEE COMMENT Bacteriu kieran screen code = 3032533) negative. [facility] jpxxtsi0405-80-98 18:51:05 Test Item Value Reference Range Interpretation Comments Urine culture (test SEE COMMENT Bacteriu kieran screen code = 2137192) negative. [facility] ([facility]-19) RNA [Presence] in Respiratory specimen by SARI with probe ikjllhsge0918-42-51 18:31:32 Test Item Value Reference Range Interpretation Comments SARS-CoV-2 (COVID-19) RNA [Presence] Detected Not-Detected in Respiratory specimen by SARI with probe detection (test code = 47449-8) OCT, Optic Nerve - [id number] 19:34:42Isidro Ruby MD - 05/24/2020 5:54 PM CST [facility] Nerve - [id number] 19:34:42Isidro Ruby MD - 05/24/2020 5:54 PM CST [facility], Extended - [id number] 19:34:39Isidro Ruby MD - 05/24/2020 5:54 PM CST [facility] HospitalAutomated Visual Field, Extended - [id number] 19:34:39Isidro Ruby MD - 05/24/2020 5:54 PM CST [facility]3 in 1 Commode 2020-02-16 16:07:52 Test Item Value Reference Range Interpretation Comments SUPPLIER NAME (test XMED Oxygen and code = 6415) Medical SUPPLIER PHONE (test [phone] code = 6416) ORDER STATUS (test code Delivery Successful = 6417) DELIVERY NOTE (test code = 6419) REQUESTED DELIVEY DATE 02/16/2020 (test code = 6420) ITEM DESCRIPTION (test 3 in 1 Commode Qty : 1 code = 6423) ACTUAL DELIVERY DATE 02/16/2020 (test code = 6422) [facility]3 in 1 Qmmylxo0500-48-75 16:07:52 Test Item Value Reference Range Interpretation Comments SUPPLIER NAME (test XMED Oxygen and code = 6415) Medical SUPPLIER PHONE (test [phone] code = 6416) ORDER STATUS (test code Delivery Successful = 6417) DELIVERY NOTE (test code = 6419) REQUESTED DELIVEY DATE 02/16/2020 (test code = 6420) ITEM DESCRIPTION (test 3 in 1 Commode Qty : 1 code = 6423) ACTUAL DELIVERY DATE 02/16/2020 (test code = 6422) [facility] General Dqanpvn7910-95-44 18:23:11Electromyogram and NCS ReportNOR[facility]OL[facility] Neurological Pjqroullp5238Qell,[facility],[place], [place]: F : Patient: Snow Argueta Physician: [...] Site: Wrist Pk Lat (ms) Amp (uV)Stim Fnha8mz dig 2.5 21.0 Sensory Nerve Study Right [...] Tibial Nerve Left Tibial Nerve Right Tibial NerveCovenant Health Levelland Hqatixw7304-97-74 18:23:11Electromyogram and NCS ReportNORTH CAROLINA SPECIALTY [facility]OSPITAL Neurological Mfnkqnwia1798Tjuo,[facility],[place]X: F: Patient: Snow Argueta Physician: Nicolasa Walters [...] Site: Wrist Pk Lat (ms) Amp (uV)Stim Crte9ml dig 2.5 21.0 Sensory Nerve Study Right [...] norm none none none Notes: NO EFFORTS C onclusion:There is no electrophysiologic evidence of neuropathy or [...] Tibial Nerve Right Tibial NerveMethodist HospitalVisual evoked acpmnpqrnh2203-94-01 15:07:24 PATTERN REVERSAL VISUAL EVOKED POTENTIAL REPORT Patient Name: Snow Argueta Date of : 1985 Gender: female Date of Procedure: 02/14/2020 IndicationVision loss FindingsPattern reversal visual evoked potentials were obtained following independent left and right full field monocularstimulation. YzqY018 absolute latencies were 99.8 msec and 102.6 msec following independent left andright eye stimulation. All interpeak latencies and waveform morphologies were normal. ImpressionThisis a normal study. ICD10 Code/Diagnosis: G35 [facility] HospitalVisual evoked xwbqtzjhlc1369-12-29 15:07:24 PATTERN REVERSAL VISUAL EVOKED POTENTIAL REPORT Patient Name: Snow Argueta Date of : 1985 Gender: female Date of Procedure: 02/14/2020 IndicationVision loss FindingsPattern reversal visual evoked potentials were obtained following independent left and right full field monocularstimulation. PesN858 absolute latencies were 99.8 msec and 102.6 msec following independent left andright eye stimulation. All interpeak latencies and waveform morphologies were normal. ImpressionThisis a normal study. ICD10 Code/Diagnosis: C20Qyyxjlxpo [facility] CenterMRI Lumbar Spine W Wo Uwazjnmh4464-19-47 16:16:59EXAMINATION: MRI LUMBAR SPINE W WO CONTRAST [...] on the right.Recommend correlation to radiculopathy distribution. [facility]-[id number] Interface, Radiology Results 02/13/2020 11:20 AM CDT [...] on the right. Recommend correlation to radiculopathy distribution.[facility]-[id number] Methodist The Woodlands HospitalI Lumbar Spine W Wo Contrast 2020-02-13 16:16:59EXAMINATION: [...] on the right.Recommend correlation to radiculopathy distribution. [facility]- [id number] Interface, Radiology Results 02/13/2020 11:20 AM CDT [...] on the right. Recommend correlation to radiculopathy distribution.[facility]-[id number] St[facility] [place] Brain Kuyxjxzm6926-17-60 14:57:03EXAM: MRI BRAIN VENOGRAM CLINICAL HISTORY: Headache chronic normal neuro exam TECHNIQUE: Head MRvenogram using 2D mcga-ln-lgwoau technique with multi-planar MIP and 3D reconstruction. 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 [...] sinus venous thrombosis. 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 Location: Left basilic Device Type:Non-valved Catheter Lumen(s): Single lumen Catheter size: 3 Fr Catheter to vein ratio: 24%MidLine Characteristics: Catheter Brand: SL PROVENA MIDLINE Internal Catheter Length (cm): 12 TotalCatheter Length (cm): 12 Catheter Lot Number: [id number] Catheter Expiration Date: 2Procedure details: Landmarks identified: [...] immediate complicationsMethodist HospitalVENIPUNC NEED PHYS SKILL,DX OR [id number] 15:39:11CFamilia hickey RN 02/08/2020 10:40 AMMidline Date/Time: [...] Flat Vessel Size (mm): 5 Indication: Known correction IV therapy Location: Left basilic Device Type:Non-valved Catheter Lumen(s): Single lumen Catheter size: 3 Fr Catheter to vein ratio: 24%MidLi ne Characteristics: Catheter Brand: SL PROVENA MIDLINE Internal Catheter Length (cm): 12 TotalCatheter Length (cm): 12 Catheter Lot Number: [id number] Catheter Expiration Date: 2Procedure details: Landmarks identified: [...] tolerance of procedure: Tolerated well, no immediate complicationsNewyork-Presbyterian Lower Manhattan Hospitalodist HospitalUs duplex venous upper rajeacjav8172-68-27 03:03:00 Vascular Ultrasound Laboratory Upper Extremity Venous Report [address] [address] Pat.Name: SNOW ARGUETA.ID: [id number] .Date: 02/07/2020 Refer.MD: MICHAEL MADDOX MD Exam Time: 4:33:00 PM [place] Type:UE Venous Height: 66in Weight: 220lb BSA: 2.08 m2 Age: 7 1985,34Y Sex: FEMALE Sonogrphr: Ryan TorresANGELIQUE Pat. Stat.:Inpatient Room: [address] Tape Vol: HV, CPT - 4: 61278 Echo Event ID:[id number] Order ID: [id number] Reason for Study:Right arm pain and swelling. [...] Si gned 02/07/2020 10:03 PMChaz Obrien MD, VIInterface, Radiology Results In - 02/07/2020 10:03 PM CDTFormatting of thisnote might be different from the original. Vascular Ultrasound Laboratory Upper Extremity Venous Report [address] [address] Pat.Name: SNOW ARGUETA.ID: [id number] St.Date: 02/07/2020 Refer.MD: MICHAEL MADDOX MD Exam Time: 4:33:00 PM Study Type:UE Venous Height: 66in Weight: 220lb BSA: 2.08 m2 Age: 7 1985,34Y Sex: FEMALE Sonogrphr: Ryan Torres RVT Pat. Stat.:Inpatient Room: [address] Tape Vol: HV, CPT - 4: 42909 Echo Event ID:[id number] Order ID: [id number] Reason for Study:Right arm pain and swelling. [...] FINDINGS: Signed 02/07/2020 10:03 PMChaz Obrien MD, RPVIMethodist [facility] duplex venous upper brngypwbb0678-62-38 03:03:00 Vascular Ultrasound Laboratory Upper Extremity Venous Report [address] [place] [address] Pat.Name: SNOW ARGUETA Pat.ID: [id number] .Date: 02/07/2020 Refer.MD: MICHAEL MADDOX MD Exam Time: 4:33:00 PM Study Type:UE Venous Height: 66in Weight: 220lb BSA: 2.08 m2 Age: 7 1985,34Y Sex: FEMALE Sonogrphr: Ryan Torres RVT Pat. Stat.:Inpatient Room: [address] Tape Vol: HV, CPT - 4: 32827 Echo Event ID:[id number] Order ID: [id number] Reason for Study:Right arm pain and swelling. [...] Vascular Ultrasound Laboratory Upper Extremity Venous Report [address] [place] [address] Pat.Name: SNOW ARGUETA Pat.ID: [id number] .Date: 02/07/2020 Refer.MD: MICHAEL MADDOX MD Exam Time: 4:33:00 PM Study Type:UE Venous Height: 66in Weight: 220lb BSA: 2.08 m2 Age: 7 1985,34Y Sex: FEMALE Sonogrphr: Ryan Torres RVT Pat. Stat.:Inpatient Room: [address] Tape Vol: , [facility] - 4: 63485 Echo Event ID:[id number] Order ID: [id number] Reason for Study:Right arm pain and swelling. [...] FINDINGS: Signed 02/07/2020 10:03 PMChaz Obrien MD, RPVIMethodist HospitalFlow cytometry lngxniobis2767-67-63 14:52:18 Test Item Value Reference Range Interpretation Comments Case number (test code = [id number]) Flow cytometry evaluation See link below for (test code = 1413275) PDF Lab Report [facility] HospitalFlow cytometry skdzwgnxml0741-57-88 14:52:18 Test Item Value Reference Range Interpretation Comments Case number (test code = [id number]) Flow cytometry evaluation See link below for (test code = 8356856) PDF Lab Report [facility] HospitalVENIPUNC NEED PHYS SKILL,DX OR [id number] 14:18:07Javier Borjas RN 02/07/2020 9:21 AMMidline Date/Time: [...] to vein ratio: 41%MidLine Characteristics: Catheter Brand: [employer] External Catheter Length (cm): 0 Internal Catheter Length (cm): 12 Total Catheter Length (cm): 12 Catheter Lot Number: [id number] Catheter Expiration Date: 1Procedure details: Landmarks identified: [...] immediate complicationsMethodist HospitalVENIPUNC NEED PHYS SKILL,DX OR [id number] 14:18:07Javier Kolb RN 02/07/2020 9:21 AMMidline Date/Time: [...] Arm band and hospital-assigned identification numberPre-procedure details: [place] hygiene: Hand hygiene performed prior to insertion [...] Catheter Length (cm): 12 Catheter Lot Number: [id number] Catheter Expiration Date: 1Procedure details: Landmarks identified: yes Ultrasound guidance: yes Sterile ultrasound techniques: Sterile gel and sterile probecovers were used Number of attempts: 1 Number [...] of procedure: Tolerated well, no immediate complicationsMethodist HospitalECG 12 hnai5368-51-20 17:49:19 Test Item Value Reference Range Interpretation Comments Ventricular rate (test code = 253) Atrial rate (test code = 255) MT interval (test code = 266) QRSD interval [...] of 04-FEB-2020 04:50,-No significant change was found- [place] [address] zgrl2122-09-93 17:49:19 Test Item Value Reference Range Interpretation Comments Ventricular rate (test code = 253) Atrial rate (test code = 255) MT interval (test code = 266) QRSD interval [...] of 04-FEB-2020 04:50,-No significant change was found- [facility] HospitalXR Chest 1 Qrhlmswk3932-48-20 03:09:52EXAMINATION: XR CHEST 1 VW PORTABLE CLINICAL HISTORY: 34 years Female chest pressure on exertion COMPARISON: None. IMPRESSION: No acute cardiopulmonary disease. FINDINGS: The cardiomediastinal silhouette, lungs, and regional skeletal structures are within normal limits for age. [address] Interface, Radiology Results Incoming - 02/05/2020 10:12 PM CDT EXAMINATION: XR CHEST 1 VW PORTABLECLINICAL HISTORY: 34 years Female chest pressure on exertionCOMPARISON: None.IMPRESSION:No acute cardiopulmonary disease.FINDINGS:The cardiomedia stinal silhouette, lungs, and regional skeletal structures are within normal limits for age. [facility]OSPITALNP74VIECVfkzhuwxtTexas Health KaufmanXR Chest 1 Vw Upaytsil5467-07-76 03:09:52EXAMINATION: XR CHEST 1 VW PORTABLE CLINICAL HISTORY: 34 years Female chest pressure on exertion COMPARISON: None. IMPRESSION: No acute cardiopulmonary disease. FINDINGS: The cardiomediastinal silhouette, lungs, and regional skeletal structures are within normal limits for age. [facility]-[id number] Interface, Radiology Results 02/05/2020 10:12 PM CDT EXAMINATION: XR CHEST 1 VW PORTABLECLINICAL HISTORY: 34 years Female chest pressure on exertionCOMPARISON: None.IMPRESSION:No acute cardiopulmonary disease.FINDINGS:The cardiomedia stinal silhouette, lungs, and regional skeletal structures are within normal limits for age. [facility]-BS56SCHLGvcwxkdtt HospitalCytology (non-gynecological) asgoiqc9839-91-21 23:15:16 Test Item Value Reference Range Interpretation Comments Case number (test code = [id number]) Cytology See link below for (non-gynecological) PDF Lab Report report (test code = 1178) Result status (test code This is Final Report = [id number]) for [id number] [facility] CenterCytology (non-gynecological) lpsfmly5905-47-57 23:15:16 Test Item Value Reference Range Interpretation Comments Case number (test code = [id number]) Cytology See link below for (non-gynecological) PDF Lab Report report (test code = 1178) Result status (test code This is Final Report = [id number]) for [id number] [facility] HospitalEEG (routine)2020-02-04 15:51:25EEG AWAKE AND ASLEEP Date of Service: 02/04/2020 Awake Recording: The occipital dominant rhythm is 10-11 Hz. 18-22 Hz activity is present in all regions. Sleep Recording: No epileptiform activity was recorded. Hyperventilation: No abnormality elicited. Photic Stimulation: No abnormality elicited. Impression The background activity is within the range of normal variation. No lateralized or epileptiform activity was recorded. ICD-10 Code: G101Gltkivdvu HospitalEEG (routine)2020-02-04 15:51:25EEG AWAKE AND ASLEEP Date of Service: 02/04/2020 Awake Recording: The occipital dominant rhythm is 10-11 Hz. 18-22 Hz activity is present in all regions. Sleep Recording: No epileptiform activity was recorded. Hyperventilation: No abnormality elicited. Photic Stimulation: No abnormality elicited. Impression The background activity is within the range of normal variation. No lateralized or epileptiform activity was recorded. ICD-10 Code: V709EpwotuzyhTexas Health Harris Medical Hospital AllianceIR Lumbar Puncture by Jowhxrpqx7539-10-86 15:23:15 EXAMINATION: IR LUMBAR PUNCTURE CLINICAL HISTORY: [...] Opening pressure was 21 cm of water. [facility]-[id number] [facility], Radiology Results Incoming - 02/04/2020 10:26 AM [...] guided lumbarpuncture.Opening pressure was 21 cm of water.[facility]-[id number] HospitalIR Lumbar Puncture by Njzivotue0410-28-34 15:23:15EXAMINATION: IR LUMBAR PUNCTURE CLINICAL HISTORY: meningitis [...] Opening pressure was 21 cm of water. [facility]-[id number] [facility], Radiology Results Incoming - 02/04/2020 10:26 AM [...] lumbar puncture.Opening pressure was 21 cm of water.[facility]-[id number] Hospital SARS-CoV-2 (COVID-19) RNA [Presence] in Respiratory specimen by SARI with probe iseauxdoy0481-11-04 05:23:12 Test Item Value Reference Range Interpretation Comments SARS-CoV-2 (COVID-19) RNA Not detected Not-Detected [Presence] in Respiratory specimen by SARI with probe detection (test code = 41203-5) MRI Brain & Orbit W Wo Kvfcjhjp2930-04-26 03:36:27EXAMINATION: MRI BRAIN & ORBIT W WO [...] Unremarkable MRI of the brain and orbits. [facility]- [id number] Interface, Radiology Results 02/03/2020 10:39 PM CDT [...] are preserved.IMPRESSION:Unremarkable MRI of the brain and orbits.[facility]-[id number] St[facility] [place], [place] Brain & Orbit W Wo Contrast 2020-02-04 [...] Unremarkable MRI of the brain and orbits. [facility]-[id number] Interface, Radi ology Results 02/03/2020 10:39 PM [...] are preserved.IMPRESSION:Unremarkable MRI of the brain and orbits.[facility]-[id number] [facility] HospitalCT Head Wo Mxyedpon4297-54-75 21:17:18EXAM: CT HEAD WO CONTRAST CLINICAL HISTORY: [...] acute intracranial abnormality. 1M2RAD_PS01Hm Interface, Radiology Results - 02/03/2020 4:20 PM CDT EXAM: CT [...] quality image.COMPARISON: None.FINDINGS:The chun-white matter differentiation is pres erved and without [...] evidencefor acute intracranial abnormality.1M2RAD_PS01[facility] HospitalCT Head Wo Mfvbyxcx8055-71-42 21:17:18 EXAM: CT HEAD WO CONTRAST CLINICAL [...] are intact.IMPRESSION:No CT evidencefor acute intracranial abnormality.1M2RAD_PS01[facility]
[2021-10-14 12:24] LABS: Absolute Lymphocytes (CBC) 1.7 K/uL (0.7-4.9); Hematocrit 34.4 % (36.0-45.0); Lymphocytes % 23.5 % (15.3-44.8)
[2021-10-14 12:26] LABS: Urine Blood Trace-lysed (Negative); Urine Glucose Negative (Negative); Urine Specific Gravity >=1.030 (1.005-1.030)
[2021-10-14 12:27] LABS: Urine Protein Negative (Negative); Urine pH 5.5 (5.0-7.0)
[2021-10-14] MEDS ORDERED: NA CHLORIDE 0.9% 1,000 ML ONE (12:34)
[2021-10-14] MEDS ORDERED: MORPHINE 4 MG/ML SYR ONE (12:34)
[2021-10-14] MEDS ORDERED: PROMETHAZINE INJ 25 MG/ML AMP ONE (12:34)
[2021-10-14 12:35] LABS: Albumin 3.5 g/dL (3.4-5.0); Bilirubin Total 0.3 mg/dL (0.2-1.0); Potassium 3.7 mmol/L (3.5-5.1); Protein, Total 6.5 g/dL (6.4-8.2)
--- NOTE | 2021-10-14 13:32 | RAD REPORT ---
EXAM DESCRIPTION: CT - Abdomen Pelvis W Contrast - 10/14/2021 12:56 pm CLINICAL HISTORY: Lower abdominal pain COMPARISON: Abdomen Pelvis W Contrast dated 05/15/2021 TECHNIQUE: Biphasic, helical CT imaging of the abdomen and pelvis was performed following 100 ml non -ionic IV contrast. No oral contrast administered. All CT scans are performed using dose optimization technique as appropriate and may include automated exposure control or mA/KV adjustment according to patient size. FINDINGS: No suspicious findings in the lung bases. The liver, spleen, and pancreas show no suspicious findings. Cholecystectomy clips are present. No ab normal biliary tree dilatation. Symmetric renal function is seen with no hydronephrosis or suspicious renal mass. No pyelonephritis o r acute parenchymal process. Small benign cyst present anterior mid left kidney. No adrenal abnormali ties. Urinary bladder is contracted. No gross bladder abnormality seen. Tampon is in place. No gross uterine abnormality seen. Ovaries are unremarkable. Trace amount of adnexal free fluid is present wit hin physiologic limits. No abnormal adnexal mass lesions seen. No dilated bowel loops or bowel wall thickening. Appendectomy clips are present matching the provided history. No free air, abnormal free fluid or inflammatory stranding. No hernia, mass or bulky lymph adenopathy. No suspicious bony findings. IMPRESSION: Contrast enhanced CT abdomen and pelvis showing no acute or emergent finding.
--- NOTE | 2021-10-14 15:09 | ER ---
Nurse's Notes [facility] Name: Snow Argueta Age: 35 yrs Sex: Female : 1985 Arrival Date: 10/14/2021 Time: 11:01 Bed 12 Private MD: Diagnosis: Acute upper respiratory infection, unspecified;Abdominal pain, unspecified Presentation: 10/14 11:36 Chief complaint: Patient states: cough, SOB, sore throat, ABD/Back pain x 3 days; as6 states [place] since last night. Coronavirus screen: Vaccine status: Patient reports being unvaccinated. Client denies travel out of the [place] in the last 14 days. Ebola Screen: Patient denies exposure to infectious person. Patient denies travel to an Ebola-affected area in the 21 days before illness onset. Initial Sepsis Screen: Does the patient meet any 2 criteria? No. Patient's initial sepsis screen is negative. Does the patient have a suspected source of infection? No. Patient's initial sepsis screen is negative. Risk Assessment: Do you want to hurt yourself or someone else? Patient reports no desire to harm self or others. Onset of symptoms was October 12, 2021. 11:36 Method Of Arrival: Ambulatory as6 11:36 Acuity: LEONEL 3 as6 Triage Assessment: 11:38 General: Appears uncomfortable, Behavior is calm, cooperative. Pain: Complains of pain as6 in back and abdomen Pain currently is 10 out of 10 on a pain scale. Respiratory: Reports shortness of breath cough that is dry, Onset: The symptoms/episode began/occurred x 3 days, the patient has mild shortness of breath. GI: Parent/caregiver reports the patient having nausea, vomiting. 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 as6 Historical: - Allergies: 11:38 Cephalexin; as6 11:38 Gadavist; as6 11:38 Latex, Natural Rubber; as6 11:38 Zofran; as6 11:38 Feraheme (Anaphylaxis); as6 - Home Meds: 11:38 Eliquis 5 mg Oral tab 1 tab 2 times per day [Active]; hydroxychloroquine 100 mg Oral 1 as6 tab 2 times per day [Active]; levothyroxine 75 mcg tab 1 cap once daily [Active]; omeprazole 40 mg Oral cpDR 1 cap once daily [Active]; Vyvanse 50 mg Oral tab 1 cap once daily [Active]; Trokendi XR 200 mg Oral cp24 1 cap twice a day [Active]; - PMHx: 11:38 ADD/ADHD; Blood Clot on R arm; Endometrosis; epilepsy; GERD; Hypothyroidism; Leukemia; as6 Lupus erythematosus; Pancreatitis; - PSHx: 11:38 Appendectomy; Cholecystectomy; Ligation of fallopian tube; as6 - Immunization history:: Client reports having NOT received the Covid vaccine. - Social history:: Smoking status: Reported history of juuling and/or vaping. Screenin:00 Abuse screen: Denies threats or abuse. Nutritional screening: No deficits noted. aa5 Tuberculosis screening: No symptoms or risk factors identified. Fall Risk Secondary diagnosis (15 points) seizures, IV access (20 points). Total Arteaga Fall Scale indicates Low Risk Score (25-44 pts). Fall prevention measures have been instituted. Assessment: 12:00 General: Appears uncomfortable, Behavior is calm, cooperative, Reports feeling ill for aa5 2-3 days. Pain: Complains of pain in back and abdomen Pain does not radiate. Pain currently is 10 out of 10 on a pain scale. Pain began 2-3 days ago. Neuro: Level of Consciousness is awake, alert, obeys commands, Oriented to person, place, time, situation. Cardiovascular: Heart tones S1 S2 present Rhythm is regular. Respiratory: Reports SOB and cough Airway is patent Respiratory effort is even, unlabored, Respiratory pattern is regular, symmetrical, Breath sounds are clear bilaterally. GI: Abdomen is round non-distended, Bowel sounds present X 4 quads. Abd is soft and non tender X 4 quads. Reports nausea. : No signs and/or symptoms were reported regarding the genitourinary system. EENT: No signs and/or symptoms were reported regarding the EENT system. Derm: Skin is pink, warm \\T\\ dry. Musculoskeletal: Range of motion: intact in all extremities. 12:30 Reassessment: Patient is alert, oriented x 3, equal unlabored respirations, skin aa5 warm/dry/pink. Extra warm blankets provided for comfort. . 12:38 Reassessment: Awaiting CT scan. aa5 12:45 Reassessment: Patient is alert, oriented x 3, equal unlabored respirations, skin aa5 warm/dry/pink. 13:16 Reassessment: Patient appears in no apparent distress at this time. Patient and/or jd3 family updated on plan of care and expected duration. Pain level reassessed. Patient is alert, oriented x 3, equal unlabored respirations, skin warm/dry/pink. pt returned from CT. 14:07 Reassessment: Patient appears in no apparent distress at this time. Patient and/or jd3 family updated on plan of care and expected duration. Pain level reassessed. Patient is alert, oriented x 3, equal unlabored respirations, skin warm/dry/pink. Patient states feeling better. 15:02 Reassessment: Patient appears in no apparent distress at this time. No changes from jd3 previously documented assessment. Patient and/or family updated on plan of care and expected duration. Pain level reassessed. Patient is alert, oriented x 3, equal unlabored respirations, skin warm/dry/pink. 15:19 Reassessment: Patient appears in no apparent distress at this time. Patient and/or jd3 family updated on plan of care and expected duration. Pain level reassessed. Patient is alert, oriented x 3, equal unlabored respirations, skin warm/dry/pink. Vital Signs: 11:36 BP 119 / 73; Pulse 80; Resp 16; Temp 97.9; Pulse Ox 100% on R/A; Weight 72.57 kg; as6 Height 5 ft. 6 in. (167.64 cm); Pain 10/10; 12:45 BP 106 / 78; Pulse 63; Resp 14 S; Pulse Ox 100% on R/A; aa5 14:07 BP 105 / 70; Pulse 62; Resp 16 S; Pulse Ox 100% on R/A; jd3 11:36 Body Mass Index 25.82 (72.57 kg, 167.64 cm) as6 ED Course: 11:01 Patient arrived in ED. as 11:38 Triage completed. as6 11:38 Arm band placed on. as6 11:43 COVID swab sent to lab. Flu and/or RSV swab sent to lab. Strep swab sent to lab. as6 11:46 Michael Whitt NP is PHCP. pm1 11:46 Garo Gaviria MD is Attending Physician. pm1 11:47 Strep Sent. zm 11:47 Flu Sent. zm 11:47 SARS-COV-2 RT PCR (Document "Date of Onset" if Symptomatic) Sent. zm 12:00 Patient has correct armband on for positive identification. Bed in low position. Call aa5 light in reach. Side rails up X2. Pulse ox on. NIBP on. 12:10 Initial lab(s) drawn, by me, sent to lab. Inserted saline lock: 20 gauge in right aa5 antecubital area, using aseptic technique. Blood collected. 12:20 Urine collected: clean catch specimen. aa5 12:26 Laurita Rothman, RN is Primary Nurse. aa5 12:57 CT Abd/Pelvis - IV Contrast Only In Process Unspecified. EDMS 13:18 Primary Nurse role handed off by Laurita Rothman, EBONIE jd3 13:18 Rosas Platt, RN is Primary Nurse. jd3 15:19 No provider procedures requiring assistance completed. IV discontinued, intact, jd3 bleeding controlled, No redness/swelling at site. Pressure dressing applied. Administered Medications: 12:30 Drug: NS 0.9% 1000 ml Route: IV; Rate: 1 bolus; Site: right antecubital; aa5 15:20 Follow up: Response: No adverse reaction; IV Status: Completed infusion jd3 12:30 Drug: Phenergan (promethazine) 12.5 mg Route: IVP; Site: right antecubital; aa5 13:18 Follow up: Response: No adverse reaction jd3 12:32 Drug: morphine 4 mg Route: IVP; Infused Over: 4 mins; Site: right antecubital; aa5 13:19 Follow up: Response: No adverse reaction; RASS: Alert and Calm (0) jd3 Medication: 13:16 VIS not applicable for this client. jd3 Outcome: 15:09 Discharge ordered by . pm1 15:19 Discharged to home ambulatory, with family. jd3 15:19 Condition: stable 15:19 Discharge instructions given to patient, Instructed on discharge instructions, follow up and referral plans. medication usage, Demonstrated understanding of instructions, follow-up care, medications, Prescriptions given X 1. 15:20 Patient left the ED. jd3 Signatures: Dispatcher [employer] EDMS Dee Dee Dodson as Laurita Rothman, RN RN aa5 Michael Whitt NP ELECTROMECHANICAL EQUIPMENT TESTER pm1 Rosas Platt, RN RN jd3 Chan Veras RN RN as6 Siri Dodson Corrections: (The following items were deleted from the chart) 11:43 11:36 Acuity: LEONEL 4 as6 as6
--- NOTE | 2021-10-14 15:10 | EDPHYS ---
Physician Documentation [facility] Name: Snow Argueta Age: 35 yrs Sex: Female : 1985 Arrival Date: 10/14/2021 Time: 11:01 Bed 12 Private MD: ED Physician Garo Gaviria HPI: 10/14 11:42 This 35 yrs old Female presents to ER via Ambulatory with complaints of Cough, pm1 Shortness Of Breath, Sore Throat, Abdominal Pain, Back Pain. 11:42 The patient or guardian reports cough, with no sputum. Onset: The symptoms/episode pm1 began/occurred 3 day(s) ago. Severity of symptoms: in the emergency department the symptoms are actually worse. Modifying factors: The symptoms are alleviated by nothing, the symptoms are aggravated by nothing. Associated signs and symptoms: Pertinent positives: sore throat, SOB, abdominal pain, back pain, Pertinent negatives: diarrhea, fever, vomiting. The patient has not recently seen a physician. 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 as6 Historical: - Allergies: 11:38 Cephalexin; as6 11:38 Gadavist; as6 11:38 Latex, Natural Rubber; as6 11:38 Zofran; as6 11:38 Feraheme (Anaphylaxis); as6 - Home Meds: 11:38 Eliquis 5 mg Oral tab 1 tab 2 times per day [Active]; hydroxychloroquine 100 mg Oral 1 as6 tab 2 times per day [Active]; levothyroxine 75 mcg tab 1 cap once daily [Active]; omeprazole 40 mg Oral cpDR 1 cap once daily [Active]; Vyvanse 50 mg Oral tab 1 cap once daily [Active]; Trokendi XR 200 mg Oral cp24 1 cap twice a day [Active]; - PMHx: 11:38 ADD/ADHD; Blood Clot on R arm; Endometrosis; epilepsy; GERD; Hypothyroidism; Leukemia; as6 Lupus erythematosus; Pancreatitis; - PSHx: 11:38 Appendectomy; Cholecystectomy; Ligation of fallopian tube; as6 - Immunization history:: Client reports having NOT received the Covid vaccine. - Social history:: Smoking status: Reported history of juuling and/or vaping. ROS: 11:42 Constitutional: Negative for fever, chills, and weight loss, Cardiovascular: Negative pm1 for chest pain, palpitations, and edema. 11:42 MS/Extremity: Negative for injury and deformity, Skin: Negative for injury, rash, and discoloration, Neuro: Negative for headache, weakness, numbness, tingling, and seizure. 11:42 Respiratory: Positive for cough, Negative for shortness of breath. 11:42 Abdomen/GI: Positive for abdominal pain, Negative for nausea, vomiting, and diarrhea. 11:42 Back: Positive for of the low back area, pain. 11:42 All other systems are negative. Exam: 11:42 Constitutional: This is a well developed, well nourished patient who is awake, alert, pm1 and in no acute distress. Head/Face: Normocephalic, atraumatic. 11:42 Back: No spinal tenderness. No costovertebral tenderness. Full range of motion. Skin: Warm, dry with normal turgor. Normal color with no rashes, no lesions, and no evidence of cellulitis. MS/ Extremity: Pulses equal, no cyanosis. Neurovascular intact. Full, normal range of motion. 11:42 Cardiovascular: Exam negative for acute changes, Rate: normal, Rhythm: regular, Pulses: no pulse deficits are appreciated, Heart sounds: normal, normal S1and S2. 11:42 Respiratory: Exam negative for acute changes, respiratory distress, shortness of breath, Breath sounds: are clear throughout. 11:42 Abdomen/GI: Inspection: abdomen appears normal, Palpation: soft, in all quadrants, mild abdominal tenderness, in the left upper quadrant. 11:42 Neuro: Exam negative for acute changes, Orientation: is normal, Mentation: is normal, Motor: moves all fours. Vital Signs: 11:36 BP 119 / 73; Pulse 80; Resp 16; Temp 97.9; Pulse Ox 100% on R/A; Weight 72.57 kg; as6 Height 5 ft. 6 in. (167.64 cm); Pain 10/10; 12:45 BP 106 / 78; Pulse 63; Resp 14 S; Pulse Ox 100% on R/A; aa5 14:07 BP 105 / 70; Pulse 62; Resp 16 S; Pulse Ox 100% on R/A; jd3 11:36 Body Mass Index 25.82 (72.57 kg, 167.64 cm) as6 MDM: 11:48 Patient medically screened. pm1 14:54 Data reviewed: vital signs. Data interpreted: Pulse oximetry: on room air is 100 %. pm1 Interpretation: normal. Counseling: I had a detailed discussion with the patient and/or guardian regarding: the historical points, exam findings, and any diagnostic results supporting the discharge/admit diagnosis, lab results, radiology results, the need for outpatient follow up, to return to the emergency department if symptoms worsen or persist or if there are any questions or concerns that arise at home. 15:15 ED course: [place]MP[place] reviewed. pm1 10/14 11:41 Order name: SARS-COV-2 RT PCR (Document "Date of Onset" if Symptomatic); Complete Time: as6 13:14 10/14 11:41 Order name: Flu; Complete Time: 12:38 as10/14 11:41 Order name: Strep; Complete Time: 12:38 as10/14 11:56 Order name: CBC with Diff; Complete Time: 12:38 pm10/14 11:56 Order name: CMP; Complete Time: 12:38 pm10/14 11:56 Order name: Lipase; Complete Time: 12:38 pm10/14 11:56 Order name: CT Abd/Pelvis - IV Contrast Only; Complete Time: 13:46 pm10/14 11:56 Order name: IV Saline Lock; Complete Time: 12:14 pm10/14 12:12 Order name: Throat Culture EDDE 10/14 12:27 Order name: Urine Dipstick-Ancillary; Complete Time: 12:38 EDDE 10/14 11:56 Order name: Labs collected and sent; Complete Time: 12:14 pm10/14 11:56 Order name: Urine Dipstick-Ancillary (obtain specimen); Complete Time: 12:26 pm10/14 11:56 Order name: Urine Test (obtain specimen); Complete Time: 12:26 pm Administered Medications: 12:30 Drug: NS 0.9% 1000 ml Route: IV; Rate: 1 bolus; Site: right antecubital; aa5 15:20 Follow up: Response: No adverse reaction; IV Status: Completed infusion jd3 12:30 Drug: Phenergan (promethazine) 12.5 mg Route: IVP; Site: right antecubital; aa5 13:18 Follow up: Response: No adverse reaction jd3 12:32 Drug: morphine 4 mg Route: IVP; Infused Over: 4 mins; Site: right antecubital; aa5 13:19 Follow up: Response: No adverse reaction; RASS: Alert and Calm (0) jd3 Disposition: 18:04 Co-signature as Attending Physician, Garo Gaviria MD. ma2 Disposition Summary: 10/14/21 15:09 Discharge Ordered Location: Home pm1 Problem: new pm1 Symptoms: have improved pm1 Condition: Stable pm1 Diagnosis - Acute upper respiratory infection, unspecified pm1 - Abdominal pain, unspecified pm1 Followup: pm1 - With: Emergency Department - When: As needed - Reason: Worsening of condition Followup: pm1 - With: Private Physician - When: 2 - 3 days - Reason: Recheck today's complaints, Continuance of care, Re-evaluation by your physician Discharge Instructions: - Discharge Summary Sheet pm1 - Abdominal Pain, Adult pm1 - Upper Respiratory Infection, Adult pm1 Forms: - Medication Reconciliation Form pm1 - Thank You Letter pm1 - Antibiotic Education pm1 - Prescription Opioid Use pm1 Prescriptions: - Guaifenesin AC 10-100 mg/5 mL Oral Liquid - take 10 milliliters by ORAL route every 4 hours As needed; 240 milliliter; pm1 Refills: 0, Product Selection Permitted Signatures: Dispatcher [employer] Laurita Mendoza, RN RN aa5 Michael Whitt NP CO DIRECTOR pm1 Garo Gaviria MD MD ma2 Chan Veras RN RN as6 Rosas Platt RN jd3 Corrections: (The following items were deleted from the chart) 10/15 14:15 11:42 This 35 yrs old Female presents to ER via Ambulatory with complaints of pm1 Cough, Shortness Of Breath, Sore Throat, Abdominal Pain, Back Pain. pm1
[2021-10-14 16:07] VITALS: TEMP 97.9; O2SAT 100
[2021-10-14 16:09] VITALS: BP 105/70
== END 2021-10-14 15:20 | disposition home or self-care (01) ==
LOC: ER 10:59
DX: J06.9 Acute upper respiratory infection, unspecified (principal); R05.9 Cough, unspecified; R06.02 Shortness of breath; J02.9 Acute pharyngitis, unspecified; R10.12 Left upper quadrant pain; Z88.8 Allergy status to other drugs, medicaments and biological substances; Z91.040 Latex allergy status; Z20.822 Contact with and (suspected) exposure to COVID-19
CPT/HCPCS: 96361; 87070; 85025; 36415; 87081; 81003; 83690; 80053; 87804 ×2; 74177; 96375; 96374; 99284; U0003; Q9967; J2550; J7030

== ENCOUNTER 2021-12-14 23:16 | Emergency (ER) | payer BC ==
--- OUTSIDE RECORDS SUMMARY | 2021-12-14 23:21 | XMS REPORT | Clinical Summary ---
:1985 Author Organization [facility] Address [address] [place] [address] Care Team Providers Name Role Phone Marck Greenberg MD Primary Care Provider Jag Schmidt MD Unavailable Niharika Peraza MD Unavailable Anita Yancey MD Unavailable Fab Pena MD Unavailable Juan Hammonds MD Unavailable Unavailable Gurpreet Hernandez MD Unavailable Unavailable Heydi Dunlap Unavailable Patsy Etienne Unavailable Topher Johnson APN Unavailable Kori Allison Unavailable Michael Flowers MD Unavailable Maddy Winchester NP Unavailable Unavailable Pedro Luis Meza MD Unavailable Yuli Milligan NP Unavailable Kathi Lorenzo MD Unavailable Adria Alfaro MD Unavailable Marck Greenberg MD Unavailable Nina Graham DRAFTER HEATING AND VENTILATING Unavailable [phone] Rin Wren DRAFTER HEATING AND VENTILATING Unavailable Gabriela Suly PA Unavailable Severiano Erlinjaylin DRAFTER HEATING AND VENTILATING Unavailable Christianne Chaidez MD Unavailable [phone] Tommie Yanez Mike PA Unavailable Marie Jung PA Unavailable [phone] DayanaAlexandra Kingston DRAFTER HEATING AND VENTILATING Unavailable [phone] Graeme Damico MD Unavailable Chico Damico MD Unavailable Kristy Florez MD Unavailable [phone] Sony Rich MD Unavailable Sony Watson MD Unavailable [phone] Santino Alvarenga MD Unavailable Aurora Busby MD Unavailable Domenic Gordon MD Unavailable Unavailable Otis Busby MD Unavailable [phone] Allergies Active Allergy Reactions Severity Noted Date [...] Description 03/30/2021 Office Visit Leukemia Jori Long, [employer]RAFTER HEATING [employer] VENTILATING Systemic lupus erythematosus, not otherw ise specified (Primary Dx); Rebeka, Acute promyeloc ytic leukemia, in remission GERARD Caceres 03/30/2021 Hospital Encounter Lab Jori Long, XOCHITL Acute promyelocytic leukemia, in re mission 03/30/2021 Orders Only Leukemia Staley, Acute promyeloc ytic GERARD Caceres leukemia, in r emission (Primary Dx) 03/30/2021 Travel 03/30/2021 Orders Only Leukemia Jori Long, XOCHITL Acute promye locytic leukemia, in re mission (Primary Dx) after 12/14/2020 Immunizations Name Administration Dates Next Due Influenza [...] Date Last Done Comments COVID-19 Vaccination (#1) 05/10/1987 Procedures Procedure Name Priority Date/Time Associated Diagnosis Comme nts TMP INTERPRETATION Routine 03/30/2021 11:04 Resul ts for this ANTIBODY SCREEN NEGATIVE AM HUMAN DEVELOPMENT PROFESSOR pro cedure are in the results section. CLOT EXPIRATION DATE Routine 03/30/2021 11:04 Res ults for this AM HUMAN DEVELOPMENT PROFESSOR procedure are i n the results section. SHANTELLE HAMILTON T(15;17) PML-LEN Routine 03/30/2021 11:04 QUANTITATIVE PCR AM HUMAN DEVELOPMENT PROFESSOR INTERPRETATION AND REPORT .GLOMERULAR FILTRATION Routine 03/30/2021 11:04 Acute promyelo cytic Results for this RATE AM HUMAN DEVELOPMENT PROFESSOR leukemia, in procedure are i n remission the results section. SERUM CREATININE Routine 03/30/2021 11:04 Acute promyelocytic Results for this AM HUMAN DEVELOPMENT PROFESSOR leukemia, in procedure are i n remission the results section. MANUAL DIFFERENTIAL STAT 03/30/2021 11:04 Acute promyelocyt ic Results for this AM HUMAN DEVELOPMENT PROFESSOR leukemia, in procedure are i n remission the results section. Results CBC STAT 03/30/2021 11:04 Acute promyelocytic Resu lts for this AM HUMAN DEVELOPMENT PROFESSOR leukemia, in procedure are i n remission the results section. ANTIBODY SCREEN Routine 03/30/2021 11:04 Acute promyelocytic R esults for this AM HUMAN DEVELOPMENT PROFESSOR leukemia, in procedure are i n remission the results section. ABORH Routine 03/30/2021 11:04 Acute promyelocytic Resu lts for this AM HUMAN DEVELOPMENT PROFESSOR leukemia, in procedure are i n remission the results section. HP T(15;17) PML-LEN Routine 03/30/2021 11:04 Acute promyel ocytic Results for this QUANTITATIVE PCR AM HUMAN DEVELOPMENT PROFESSOR leukemia, in procedure a re in COLLECTION, BLOOD remission the result s section. MAGNESIUM LEVEL Routine 03/30/2021 11:04 Acute promyelocytic R esults for this AM HUMAN DEVELOPMENT PROFESSOR leukemia, in procedure are i n remission the results section. ELECTROLYTE PANEL Routine 03/30/2021 11:04 Acute promyelocytic Results for this AM HUMAN DEVELOPMENT PROFESSOR leukemia, in procedure are i n remission the results section. ALANINE AMINOTRANSFERASE Routine 03/30/2021 11:04 Acute promye locytic Results for this AM HUMAN DEVELOPMENT PROFESSOR leukemia, in procedure are i n remission the results section. LACTATE DEHYDROGENASE Routine 03/30/2021 11:04 Acute promyeloc ytic Results for this AM HUMAN DEVELOPMENT PROFESSOR leukemia, in procedure are i n remission the results section. ALKALINE PHOSPHATASE Routine 03/30/2021 11:04 Acute promyelocy tic Results for this AM HUMAN DEVELOPMENT PROFESSOR leukemia, in procedure are i n remission the results section. FRACTIONATED BILIRUBIN Routine 03/30/2021 11:04 Acute promyelo cytic Results for this AM HUMAN DEVELOPMENT PROFESSOR leukemia, in procedure are i n remission the results section. URIC ACID Routine 03/30/2021 11:04 Acute promyelocytic Resu lts for this AM HUMAN DEVELOPMENT PROFESSOR leukemia, in procedure are i n remission the results section. SERUM CREATININE Routine 03/30/2021 11:04 Acute promyelocytic AM HUMAN DEVELOPMENT PROFESSOR leukemia, in remission BLOOD UREA NITROGEN Routine 03/30/2021 11:04 Acute promyelocyt ic Results for this AM HUMAN DEVELOPMENT PROFESSOR leukemia, in procedure are i n remission the results section. GLUCOSE, RANDOM Routine 03/30/2021 11:04 Acute promyelocytic R esults for this AM HUMAN DEVELOPMENT PROFESSOR leukemia, in procedure are i n remission the results section. PHOSPHORUS LEVEL Routine 03/30/2021 11:04 Acute promyelocytic Results for this AM HUMAN DEVELOPMENT PROFESSOR leukemia, in procedure are i n remission the results section. CALCIUM LEVEL TOTAL Routine 03/30/2021 11:04 Acute promyelocyt ic Results for this AM HUMAN DEVELOPMENT PROFESSOR leukemia, in procedure are i n remission the results section. ALBUMIN LEVEL Routine 03/30/2021 11:04 Acute promyelocytic Res ults for this AM HUMAN DEVELOPMENT PROFESSOR leukemia, in procedure are i n remission the results section. TOTAL PROTEIN Routine 03/30/2021 11:04 Acute promyelocytic Res ults for this AM HUMAN DEVELOPMENT PROFESSOR leukemia, in procedure are i n remission the results section. COMPLETE BLOOD COUNT W/ Routine 03/30/2021 11:04 Acute promyel ocytic DIFFERENTIAL AM HUMAN DEVELOPMENT PROFESSOR leukemia, in remission TYPE AND SCREEN Routine 03/30/2021 11:04 Acute promyelocytic AM HUMAN DEVELOPMENT PROFESSOR leukemia, in remission after 12/14/2020 Results t(15;17) PML-LEN Quantitative PCR Collection, Blood (03/30/2021 11:04 AM HUMAN DEVELOPMENT PROFESSOR) athologist [facility] Molecular Yes [facility] Diagnostics CANCER CENTER (Received) Specimen Anatomical Collection Method Collection Time Receive d Time (Source) Location / / Volume Laterality Blood 03/30/2021 11:04 03/30/2021 1:39 AM HUMAN DEVELOPMENT PROFESSOR PM HUMAN DEVELOPMENT PROFESSOR Jori PEPPER MD BLOOD COLLECTIONS Performing Organization Address City/State/ZIP Code Phon e Number [facility] CANCER Unless otherwise noted, [place] [address] CENTER all lab tests performed by: Division of Pathology and Laboratory Medicine [address] (ABNORMAL) Glucose, Random (03/30/2021 11:04 AM HUMAN DEVELOPMENT PROFESSOR) athologist Signature Glucose Random 62 (L) 70 - 199 [facility] mg/dL CANCER CENTER Comment: Effective 11/15/15, the glucose reference intervals have been updated based on [place] [employer] guidelines (Standards of Medical Care [...] Volume Laterality Blood 03/30/2021 11:04 03/30/2021 AM HUMAN DEVELOPMENT PROFESSOR 11:53 AM HUMAN DEVELOPMENT PROFESSOR Narrative [facility] - 12:26 PM HUMAN DEVELOPMENT PROFESSOR Schedule in Fast Track Jori Long NP LAB BLOOD ORDERABLES Performing Organization Address City/[facility]/ZIP Code Phon e Number [facility] CANCER Unless otherwise noted, [address] all lab tests performed by: Division of Pathology and Laboratory Medicine [place] .Serum Creatinine (03/30/2021 11:04 AM HUMAN DEVELOPMENT PROFESSOR) P athologist Signature Creatinine 0.95 0.51 - 0.95 [facility] mg/dL CANCER CENTER Specimen Anatomical Collection Method Collection Time Receive d Time (Source) Location / / Volume Laterality Blood 03/30/2021 11:04 03/30/2021 AM HUMAN DEVELOPMENT PROFESSOR 11:53 AM HUMAN DEVELOPMENT PROFESSOR Narrative [facility] - 12:26 PM HUMAN DEVELOPMENT PROFESSOR Schedule in Fast Track Jori Long NP LAB BLOOD ORDERABLES Performing Organization Address City/State/ZIP Code Phon e Number [facility] CANCER Unless otherwise noted, [address] all lab tests performed by: Division of Pathology and Laboratory Medicine [facility] [address] (ABNORMAL) .CBC (03/30/2021 11:04 AM HUMAN DEVELOPMENT PROFESSOR) Analysis Performed At Patho logist Time Signature WBC 9.4 4.0 - 11.0 [facility] K/uL DIAGNOSTIC CENTER RBC 4.53 4.00 - [facility] 5.50 M/uL DIAGNOSTIC CENTER Hgb 13.0 12.0 - [facility] 16.0 gm/dL DIAGNOSTIC CENTER Hct 40.0 37.0 - [facility] 47.0 % DIAGNOSTIC CENTER MCV 88 82 - 98 fL [facility] DIAGNOSTIC CENTER MCH 28.7 27.0 - [facility] 31.0 pg DIAGNOSTIC CENTER MCHC 32.5 31.0 - [facility] 36.0 gm/dL DIAGNOSTIC CENTER RDW-SD 40.1 35.1 - [facility] 46.3 fL DIAGNOSTIC CENTER RDW-CV 12.3 12.0 - [facility] 15.5 % DIAGNOSTIC CENTER Platelet count 252 140 - 440 [facility] K/uL DIAGNOSTIC CENTER MPV 12.2 (H) 4.0 - 10.4 [facility] fL DIAGNOSTIC CENTER INRBC 0.0 <=0.0 % [facility] DIAGNOSTIC CENTER Comment: The INRBC (instrument NRBC) [...] Volume Laterality Blood 03/30/2021 11:04 03/30/2021 AM HUMAN DEVELOPMENT PROFESSOR 11:15 AM HUMAN DEVELOPMENT PROFESSOR Narrative [facility] DIAGNOSTIC CENTER - 03/30 11:28 AM HUMAN DEVELOPMENT PROFESSOR Schedule in Fast Track Jori Long NP LAB BLOOD ORDERABLES Performing Organization Address City/State/ZIP Code Phon e Number [facility] DIAGNOSTIC Unless otherwise noted, [place], [place] [address] CENTER all lab tests performed by: Division of Pathology and Laboratory Medicine [facility]5 [facility] Clot Expiration Date (03/30/2021 11:04 AM HUMAN DEVELOPMENT PROFESSOR) Patholo gist Method Time Signature T & S 04/02/2021 [facility] CANCER CENTER Specimen Anatomical Collection Method Collection Time Receive d Time (Source) Location / / Volume Laterality Blood 03/30/2021 11:04 03/30/2021 AM HUMAN DEVELOPMENT PROFESSOR 11:54 AM HUMAN DEVELOPMENT PROFESSOR Jori Long NP BLOOD BANK TEST ORDERABLES Performing Organization Address City/State/ZIP Code Phon e Number [facility] CANCER Unless otherwise noted, [place] [address] [place] all lab tests performed by: Division of Pathology and Laboratory Medicine [address] Glomerular Filtration Rate (03/30/2021 11:04 AM HUMAN DEVELOPMENT PROFESSOR) P athologist Signature eGFR-AA 90 >=60 [facility] mL/min/1.73 CANCER CENTER sq. m Comment: Normal eGFR: >= 60 [...] <15 eGFR-SARI 78 >=60 mL/min/1.73 sq. m ND MD Santana [facility] Comment: Normal eGFR: >= 60 mL/min/1.73 m2 [...] Volume Laterality Blood 03/30/2021 11:04 03/30/2021 AM HUMAN DEVELOPMENT PROFESSOR 11:53 AM HUMAN DEVELOPMENT PROFESSOR Narrative [facility] - 12:26 PM HUMAN DEVELOPMENT PROFESSOR Schedule in Fast Track Jori Long NP LAB BLOOD ORDERABLES Performing Organization Address City/State/ZIP Code Phon e Number [facility] CANCER Unless otherwise noted, [place] [address] [place] all lab tests performed by: Division of Pathology and Laboratory Medicine [facility] Fractionated Bilirubin (03/30/2021 11:04 AM HUMAN DEVELOPMENT PROFESSOR) athologist Signature Bili Total 0.4 <=1.2 mg/dL [facility] Comment: Indocyanine Green (ICG) may cause falsel y elevated bilirubin results. Total and direct bilirubin must not be measured from samples containing indocyanine green. False elevation of total bilirubin can b e seen in patients with IgG concentrations above 28 g/L. Bili Direct <0.2 <=0.3 mg/dL ND MD SARABIA [facility] Comment: Indocyanine Green (ICG) may cau se falsely elevated bilirubin results. Total and direct bilirubin must not be measure d from samples containing indocyanine green. Bili Indirect See Note 0.0 - 0.9 mg/dL ND MD [facility] Comment: Unable to calculate Indirect Bi lirubin result due to some parameters are outside reportable range Specimen Anatomical Collection Method Collection Time Receive d Time (Source) Location / / Volume Laterality Blood 03/30/2021 11:04 03/30/2021 AM HUMAN DEVELOPMENT PROFESSOR 11:53 AM HUMAN DEVELOPMENT PROFESSOR Jori Long NP LAB BLOOD ORDERABLES Performing Organization Address City/State/ZIP Code Phon e Number [facility] CANCER Unless otherwise noted, [address] all lab tests performed by: Division of Pathology and Laboratory Medicine [address] MD t(15;17) PML-LEN Quantitative PCR Interpretation and Report (03/30/2021 11:04 AM HUMAN DEVELOPMENT PROFESSOR) Specimen (Source) Anatomical Collection Method Collection Time Re ceived Time Location / / Volume Laterality 03/30/2021 11:04 AM HUMAN DEVELOPMENT PROFESSOR Narrative This result has an attachment that is no t available. Jori Long NP, [facility] (SHANTELLE HAMILTON) TMP Interpretation Antibody Screen Negative (03/30/2021 11:04 AM HUMAN DEVELOPMENT PROFESSOR) [facility] Method Time Signature TMP Auto Neg At the ND [facility] Interp [facility] patient plasma shows no evidence of RBC alloantibodi es. Comment: VALERIE FREDERICK, Dictated by: VALERIE FREDERICK, Dictated Date/Time: 03.30.2021 20:35 PM HUMAN DEVELOPMENT PROFESSOR Transcribed Date/Time: 03.30.2021 20:35 PM HUMAN DEVELOPMENT PROFESSOR Electronically Signed By: VALERIE LIRIANO, on 03.30.2021 20:35 PM Specimen Anatomical Collection Method Collection Time Receive d Time (Source) Location / / Volume Laterality Blood 03/30/2021 11:04 03/30/2021 AM HUMAN DEVELOPMENT PROFESSOR 11:54 AM HUMAN DEVELOPMENT PROFESSOR Jori Long NP BLOOD BANK TEST ORDERABLES Performing Organization Address City/State/ZIP Code Phon e Number [facility] CANCER Unless otherwise noted, [address] all lab tests performed by: Division of Pathology and Laboratory Medicine [address] ABORh (03/30/2021 11:04 AM HUMAN DEVELOPMENT PROFESSOR) athologist [facility] ABOR. A POS [facility] CANCER CENTER Specimen Anatomical Collection Method Collection Time Receive d Time (Source) Location / / Volume Laterality Blood 03/30/2021 11:04 03/30/2021 AM HUMAN DEVELOPMENT PROFESSOR 11:54 AM HUMAN DEVELOPMENT PROFESSOR Jori Long NP BLOOD BANK TEST ORDERABLES Performing Organization Address City/[facility] Phon e Number [facility] CANCER Unless otherwise noted, [address] all lab tests performed by: Division of Pathology and Laboratory Medicine [address] (ABNORMAL) Differential (03/30/2021 11:04 AM HUMAN DEVELOPMENT PROFESSOR) athologist [facility] Neutrophil % 75.3 (H) 42.0 - [facility] 66.0 % DIAGNOSTIC CENTER Lymphocyte % 16.8 (L) 24.0 - [facility] 44.0 % DIAGNOSTIC CENTER Monocyte % 6.3 2.0 - 7.0 [facility] % DIAGNOSTIC CENTER Eosinophil % 0.8 (L) 1.0 - 4.0 [facility] % DIAGNOSTIC CENTER Basophil % 0.5 0.0 - 1.0 [facility] % DIAGNOSTIC CENTER IGRE % 0.3 0.0 - 0.4 [facility] % DIAGNOSTIC CENTER Comment: IGRE % count includes Metamyelo cytes, Myelocytes, and Promyelocytes. Neutrophil Abs 7.10 1.70 - 7.30 K/uL ND MD LISA PERDOMO [facility] [place] Lymphocyte Abs 1.59 1.00 - 4.80 K/uL ND MD LISA PERDOMO [facility] [place] Monocyte Abs 0.59 0.08 - 0.70 K/uL ND MD [facility] Eosinophil Abs 0.08 0.04 - 0.40 K/uL ND [facility] [place] Basophil Abs 0.05 0.00 - 0.10 K/uL ND MD KECIA [facility] IG Abs 0.03 0.00 - 0.04 K/uL ND MD LULI Nicolas [facility] CENTER Specimen Anatomical Collection Method Collection Time Receive d Time (Source) Location / / Volume Laterality Blood 03/30/2021 11:04 03/30/2021 AM HUMAN DEVELOPMENT PROFESSOR 11:15 AM HUMAN DEVELOPMENT PROFESSOR Narrative [facility] CENTER - 03/30 11:28 AM HUMAN DEVELOPMENT PROFESSOR Schedule in Fast Track Jori Long NP LAB BLOOD ORDERABLES Performing Organization Address City/[facility]/ZIP Code Phon e Number [facility] DIAGNOSTIC Unless otherwise noted, [place] [id number] [place] all lab tests performed by: Division of Pathology and Laboratory Medicine [address] Antibody Screen (03/30/2021 11:04 AM HUMAN DEVELOPMENT PROFESSOR) athologist Signature ABSC. Negative ABSC [facility] Specimen Anatomical Collection Method Collection Time Receive d Time (Source) Location / / Volume Laterality Blood 03/30/2021 11:04 03/30/2021 AM HUMAN DEVELOPMENT PROFESSOR 11:54 AM HUMAN DEVELOPMENT PROFESSOR Jori Long NP BLOOD BANK TEST ORDERABLES Performing Organization Address City/[facility] Phon e Number [facility] CANCER Unless otherwise noted, [address] all lab tests performed by: Division of Pathology and Laboratory Medicine [address] Uric Acid (03/30/2021 11:04 AM HUMAN DEVELOPMENT PROFESSOR) athologist Signature Uric Acid 3.4 2.4 - 5.7 [facility] mg/dL [facility] Specimen Anatomical Collection Method Collection Time Receive d Time (Source) Location / / Volume Laterality Blood 03/30/2021 11:04 03/30/2021 AM HUMAN DEVELOPMENT PROFESSOR 11:53 AM HUMAN DEVELOPMENT PROFESSOR Narrative [facility] - 12:26 PM HUMAN DEVELOPMENT PROFESSOR Schedule in Fast Track Jori Long NP LAB BLOOD ORDERABLES Performing Organization Address City/State/ZIP Code Phon e Number [facility] CANCER Unless otherwise noted, [address] all lab tests performed by: Division of Pathology and Laboratory Medicine [address] BUN (03/30/2021 11:04 AM HUMAN DEVELOPMENT PROFESSOR) athologist Signature BUN 12 6 - 23 [facility] mg/dL [facility] Specimen Anatomical Collection Method Collection Time Receive d Time (Source) Location / / Volume Laterality Blood 03/30/2021 11:04 03/30/2021 AM HUMAN DEVELOPMENT PROFESSOR 11:53 AM HUMAN DEVELOPMENT PROFESSOR Jori Long NP LAB BLOOD ORDERABLES Performing Organization Address City/State/ZIP Code Phon e Number [facility] CANCER Unless otherwise noted, [address] all lab tests performed by: Division of Pathology and Laboratory Medicine [address] Alanine Aminotransferase (03/30/2021 11:04 AM HUMAN DEVELOPMENT PROFESSOR) P athologist Signature ALT 17 <=33 U/L [facility] Specimen Anatomical Collection Method Collection Time Receive d Time (Source) Location / / Volume Laterality Blood 03/30/2021 11:04 03/30/2021 AM HUMAN DEVELOPMENT PROFESSOR 11:53 AM HUMAN DEVELOPMENT PROFESSOR Narrative [facility] - 12:26 PM HUMAN DEVELOPMENT PROFESSOR Schedule in Fast Track Jori Long NP LAB BLOOD ORDERABLES Performing Organization Address City/[facility]/ZIP Code Phon e Number [facility] CANCER Unless otherwise noted, [address] all lab tests performed by: Division of Pathology and Laboratory Medicine [address] Total Protein (03/30/2021 11:04 AM HUMAN DEVELOPMENT PROFESSOR) P athologist Signature Total Protein 6.8 6.4 - 8.3 [facility] g/dL [facility] Specimen Anatomical Collection Method Collection Time Receive d Time (Source) Location / / Volume Laterality Blood 03/30/2021 11:04 03/30/2021 AM HUMAN DEVELOPMENT PROFESSOR 11:53 AM HUMAN DEVELOPMENT PROFESSOR Narrative [facility] - 12:26 PM HUMAN DEVELOPMENT PROFESSOR Schedule in Fast Track Jori Long NP LAB BLOOD ORDERABLES Performing Organization Address City/[facility]/[place]IP [facility] Number [facility] CANCER Unless otherwise noted, [address] all lab tests performed by: Division of Pathology and Laboratory Medicine [address] Phosphorus Level (03/30/2021 11:04 AM HUMAN DEVELOPMENT PROFESSOR) P athologist Signature Phosphorus 3.8 2.5 - 4.5 [facility] mg/dL [facility] Specimen Anatomical Collection Method Collection Time Receive d Time (Source) Location / / Volume Laterality Blood 03/30/2021 11:04 03/30/2021 AM HUMAN DEVELOPMENT PROFESSOR 11:53 AM HUMAN DEVELOPMENT PROFESSOR Narrative [facility] - 12:26 PM HUMAN DEVELOPMENT PROFESSOR Schedule in Fast Track Jori Long NP LAB BLOOD ORDERABLES Performing Organization Address City/State/ZIP Code Phon e Number [facility] Unless otherwise noted, [address] all lab tests performed by: Division of Pathology and Laboratory Medicine [address] Alkaline Phosphatase (03/30/2021 11:04 AM HUMAN DEVELOPMENT PROFESSOR) athologist Signature Alk Phos 69 35 - 104 [facility] U/L [facility] Specimen Anatomical Collection Method Collection Time Receive d Time (Source) Location / / Volume Laterality Blood 03/30/2021 11:04 03/30/2021 AM HUMAN DEVELOPMENT PROFESSOR 11:53 AM HUMAN DEVELOPMENT PROFESSOR Narrative [facility] - 12:26 PM HUMAN DEVELOPMENT PROFESSOR Schedule in Fast Track Jori Long NP LAB BLOOD ORDERABLES Performing Organization Address City/[facility]/ZIP Code Phon e Number [facility] Unless otherwise noted, [address] all lab tests performed by: Division of Pathology and Laboratory Medicine [address] Magnesium Level (03/30/2021 11:04 AM HUMAN DEVELOPMENT PROFESSOR) athologist [facility] Magnesium 2.2 1.6 - 2.6 [facility] mg/dL [facility] Specimen Anatomical Collection Method Collection Time Receive d Time (Source) Location / / Volume Laterality Blood 03/30/2021 11:04 03/30/2021 AM HUMAN DEVELOPMENT PROFESSOR 11:53 AM HUMAN DEVELOPMENT PROFESSOR Narrative [facility] - 12:26 PM HUMAN DEVELOPMENT PROFESSOR Schedule in Fast Track Jori Long NP LAB BLOOD ORDERABLES Performing Organization Address City/[facility]/ZIP Code Phon e Number [facility] Unless otherwise noted, [address] all lab tests performed by: Division of Pathology and Laboratory Medicine [address] LDH (03/30/2021 11:04 AM HUMAN DEVELOPMENT PROFESSOR) athologist Signature LDH 162 135 - 214 [facility] U/L [facility] Comment: Results greater than 1651 U/L [...] Volume Laterality Blood 03/30/2021 11:04 03/30/2021 AM HUMAN DEVELOPMENT PROFESSOR 11:53 AM HUMAN DEVELOPMENT PROFESSOR Narrative [facility] - 12:26 PM HUMAN DEVELOPMENT PROFESSOR Schedule in Fast Track Jori Long NP LAB BLOOD ORDERABLES Performing Organization Address City/[facility]/[place] [facility] [place] [facility] CANCER Unless otherwise noted, [address] all lab tests performed by: Division of Pathology and Laboratory Medicine [address] Calcium Level (03/30/2021 11:04 AM HUMAN DEVELOPMENT PROFESSOR) P athologist Signature Calcium Lvl 8.8 8.4 - 10.2 [facility] mg/dL [facility] Specimen Anatomical Collection Method Collection Time Receive d Time (Source) Location / / Volume Laterality Blood 03/30/2021 11:04 03/30/2021 AM HUMAN DEVELOPMENT PROFESSOR 11:53 AM HUMAN DEVELOPMENT PROFESSOR Narrative [facility] - 12:26 PM HUMAN DEVELOPMENT PROFESSOR Schedule in Fast Track Jori Long NP LAB BLOOD ORDERABLES Performing Organization Address City/[facility]/ZIP [facility] [place] Phon [place] Number [facility] Unless otherwise noted, [address] all lab tests performed by: Division of Pathology and Laboratory Medicine [address] Albumin Level (03/30/2021 11:04 AM HUMAN DEVELOPMENT PROFESSOR) P athologist Signature Albumin Lvl 4.5 3.5 - 5.2 [facility] gm/dL [facility] Specimen Anatomical Collection Method Collection Time Receive d Time (Source) Location / / Volume Laterality Blood 03/30/2021 11:04 03/30/2021 AM HUMAN DEVELOPMENT PROFESSOR 11:53 AM HUMAN DEVELOPMENT PROFESSOR Narrative [facility] - 12:26 PM HUMAN DEVELOPMENT PROFESSOR Schedule in Fast Track Jori Long NP LAB BLOOD ORDERABLES Performing Organization Address City/[facility]/ZIP [facility] Phon [place] Number [facility] Unless otherwise noted, [address] all lab tests performed by: Division of Pathology and Laboratory Medicine [address] [place] [address] Electrolyte Panel (03/30/2021 11:04 AM HUMAN DEVELOPMENT PROFESSOR) P athologist Signature Sodium Lvl 141 136 - 145 [facility] mEq/L [facility] Potassium Lvl 4.0 3.5 - 5.1 [facility] mEq/L [facility] Chloride 104 98 - 107 [facility] mEq/L [facility] CO2 27 22 - 29 [facility] mEq/L [facility] Anion Gap 10 4 - 14 [facility] mEq/L [facility] Specimen Anatomical Collection Method Collection Time Receive d Time (Source) Location / / Volume Laterality Blood 03/30/2021 11:04 03/30/2021 AM HUMAN DEVELOPMENT PROFESSOR 11:53 AM HUMAN DEVELOPMENT PROFESSOR Narrative [facility] - 12:26 PM HUMAN DEVELOPMENT PROFESSOR Schedule in Fast Track Jori Long NP LAB BLOOD ORDERABLES Performing Organization Address City/State/ZIP Code Phon e Number [facility] CANCER Unless otherwise noted, [address] all lab tests performed by: Division of Pathology and Laboratory Medicine [address] [place] [address] after 12/14/2020 Care Teams 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 Relationship Specialty Start Date End Date Marck Greenberg MD PCP - General 06/21/[address] [place] [phone] Jag Schmidt MD Physician 06/28/[address] [place] [address] [phone] Niharika Peraza MD Physician 06/28/[address] [place] [address] [phone] Anita Yancey MD Physician 06/28/15 [address] [place] [address] [place] [address] Fab Pena MD Physician 06/28/[address] [place] [phone] Juan Hammonds MD Physician 06/28/15 Gurpreet Hernandez MD Physician 06/28/15 Heydi Dunlap PA Physician Helicopter Mechanic 06/28/[address] [place] [address] [phone] Patsy Etienne PA Physician Helicopter Mechanic 06/28/[address] [place] [address] [id number] Topher Johnson APN Nurse Practitioner 06/28/[address] [place] [address] [phone] Kori Allison AuD Stretcher [employer] Drier 06/28/[address] [place] [phone] Michael Flowers MD Physician 06/28/[address] [place] [address] [phone] Maddy Winchester [employer] Nurse Practitioner 06/28/15 Pedro Luis Meza MD Physician 06/28/[address] [address] Yuli Milligan NP Nurse Practitioner 06/28/[address] [place] [address] [phone] Kathi Lorenzo MD Physician 06/28/[address] [place] [address] [id number] Adria Alfaro MD Physician 06/28/[address] [place] [address] [phone] Marck Greneberg MD Physician 06/28/[address] [place] [phone] Nina Graham, [employer] Nurse Practitioner 06/28/[address] [place] [address] [phone] Rin Wren, XOCHITL Nurse Practitioner 06/28/[address] [place] [address] [phone] Suly Ochoa PA Physician Helicopter Mechanic 06/28/[address] [place] [address] [phone] Lee العلي NP Nurse Practitioner 06/28/[address] [place] [phone] Christianne Chaidez MD Physician 06/28/[address] [place] [address] [phone] Tommie Yanez PA Physician Helicopter Mechanic 06/28/[address] [place] [address]. [place] [address] Marie Jung PA Physician Helicopter Mechanic 06/28/[address] [place] [address] [phone] Alexandra Villegas NP Nurse Practitioner 06/28/[address] [place] [address] [phone] Graeme Damico MD Physician 06/28/[address] [place] [address] [phone] Chico Damico MD Physician 06/28/[address] [place] [address] [id number] Kristy Florez MD Physician 06/28/[address] [place] [address] [phone] Sony Rich MD Physician 06/28/[address] [place] [address] [phone] Sony Watson MD Physician 06/28/[address] [place] [address] [phone] Santino Alvarenga MD Physician 06/28/[address] [place] [address] [phone] Aurora Busby MD Physician 06/28/[address] [place] [address] [phone] Domenic Gordon MD Physician 06/28/15 Otis Busby MD Physician 06/28/[address] [place] [address] [phone]
--- OUTSIDE RECORDS SUMMARY | 2021-12-14 23:27 | XMS REPORT | Continuity of Care Document ---
:1985 Author Organization [facility] t Address [address] [place] [address] Care Team Providers Name Role Phone Marck Greenberg MD Primary Care Physician Soco Savage Attending Clinician Unavailable MADDY SIMMS Attending Clinician Unavailable Maddy Simms MD Attending Clinician Shaylee Ross RN Attending Clinician Unavailable Ethan LEUNG, Jori Attending Clinician Nicki Scott Attending Clinician EARLE IVERSON Attending Clinician Unavailable Earle Walters Attending Clinician Silvina House Attending Clinician Unavailable INOCENTE MEJIAS Attending Clinician Unavailable Shilpa Mason RN Attending Clinician Unavailable Truong Hutchinson Attending Clinician TRUONG NORMAN Attending Clinician Unavailable Provider, [facility] Attending Clinician Unavailable Reji MORENO, Tessa Rodriguez Attending Clinician TESSA MENDOZA Attending Clinician Unavailable David Chung Attending Clinician Selena HAMILTON, Chika Attending Clinician Marques Mane MD Attending Clinician [facility] Attending Clinician Unavailable Lyndsay HAMILTON, Caleb Attending Clinician Kanchan Downey MD Attending Clinician Eulalio HAMILTON, Jen Pulido Attending Clinician MD KANCHAN DOWNEY Attending Clinician Unavailable Tung HAMILTON, Isidro Rowe Attending Clinician Jasmeet Benedict MD Attending Clinician Erica HAMILTON, Yesi Muñoz Attending Clinician [phone] Diogo Blandon Attending Clinician Unavailable Kim Guevara MD Attending Clinician Karen Pineda MD Attending Clinician Varsha H[facility]ILTON, [facility]ending Clinician Gabby García MA Attending Clinician Unavailable MD KAREN PINEDA Attending Clinician Unavailable KANCHAN DOWNEY Admitting Clinician Unavailable MD KANCHAN DOWNEY Admitting Clinician Unavailable JASMEET BENEDICT Admitting Clinician Unavailable KAREN PINEDA Admitting Clinician Unavailable MD KAREN PINEDA Admitting Clinician Unavailable Payers Payer Name Policy Type Policy Number Effective Date Expiration Date S ource 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) (disorder) Active Problem 09/01/2020 [facility] History of History Problem Active 2020-12-03 Memoria - * of - * 21:41:00 l leukemia leukemia Murray n (context-d (context-d ependent ependent category) category) Active Problem 12/03/2020 [facility] Headache Headache Problem Active 2020-12-03 Memoria (finding) (finding) 21:41:00 l Active Ricardo Problem 12/03/2020 [facility] Simple Simple Problem Active 2020-12-03 Unruly kieran obesity obesity 21:41:00 l (disorder) (disorder) He rmann Active Problem 12/03/2020 [facility] 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 21:41:00 l thy thy Ricardo (disorder) (disorder) Active Problem 12/03/2020 [facility] Disease Disease Problem Active 2020-12-03 M emoria caused by caused by 21:41:00 l 2019-nCoV 2018-nCoV Be collazo Active Problem 12/03/2020 [facility] Disorienta Disorient Problem Active 2020-12-03 Memoria leon ated 21:41:00 l (finding) (finding) Be collazo Active Problem 12/03/2020 [facility] Hemiplegia Hemiplegi Problem Active 2020-12-03 Memoria (disorder) a 21:41:00 l (disorder) Murray n Active Problem 12/03/2020 [facility] Hypothyroi Problem Active 2020-12-03 M emoria dism Hypothyroi 21:41:00 l (disorder) dism Murray n (disorder) Active Problem 12/03/2020 [facility] Seizure Seizure Problem Active 2020-12-03 Me moria disorder disorder 21:41:00 l (disorder) (disorder) Milad rmann Active Problem 12/03/2020 [facility] Visual Visual Problem Active 2020-12-03 Unruly kieran disturbanc disturbanc 21:41:00 l cleve poon Ricardo (disorder) (disorder) Active Problem 12/03/2020 [facility] No known No known Disease Unive rs active active ity of problems problems [facility] Allergies, Adverse Reactions, Alerts Allergy Allergy Status Severity Reaction(s) Onset Inactive Treating Comm ents Source Name Type Date Date Clinician CEPHALEX DRUG Active High Hives Univers IN INGREDI 8-15 ity of 00:00: Medical Branch ONDANSET DRUG Active High Other-Cmnt Univ ers CLEO HCL INGREDI 8-15 ity of 00:00: [facility] Cephalex Drug Active Hives Univers in Allergy 8-15 ity of 00:00: [facility] Ondanset Drug Active Other - See migraines Univers cleo Hcl Allergy comments 8-15 ity of 00:00: [facility] Zofran Propensi Active Other (See Bayl or Odt ty to Comments) 709 College adverse 00:00: of reaction 00 Medicin s to e drug Ferumoxy Propensi Active Anaphylaxis B aylor gilberto ty to 615 College adverse 00:00: of reaction 00 Medicin s to e drug FERUMOXY DRUG Active Anaphylaxis Uni vers GILBERTO INGREDI 08-14 ity of 00:00: [place] 00 Medical Branch Ferumoxy Propensi Active Anaphylaxis U nivers gilberto ty to 4-26 ity of adverse 00:00: [place] reaction 00 Medical s Branch Cephalex Propensi Active Hives 2019-04 Method i in ty to [facility] adverse 00:00: Hospita reaction 00 l s to drug Latex Propensi Active Hives 2019-[address] Methodi [address] adverse 00:00: Hospita reaction 00 l s to drug Ondanset Propensi Active Headache 2019-04 Meth tanvi cleo Hcl ty to 0[address] adverse 00:00: Hospita reaction 00 l [...] 00:00: [place] reaction 00 MD [facility] Latex Drug Active Dermatitis Univer s Allergy 2-22 ity of 00:00: [place] 00 MD [facility] Cefpodox Drug Active Hives Univers nannette Allergy 2-22 ity of 00:00: [place] 00 MD [facility] Gadobutr Drug Active Other (See Nausea / Un pau ol Intolera Comments) 06-12 Vomiting- it y of nce 00:00: iodine [place] 00 prior to MD MYRNA [facility] GADOBUTR DRUG Active High Other-Cmnt Univ ers OL INGREDI 06-12 ity of 00:00: [place] [facility] CEFPODOX DRUG Active Med Hives Univers NANNETTE INGREDI 06-12 ity of 00:00: [place] [facility] Gadobutr Propensi Active Other (See Vomiting1 [facility] ol ty to Comments) 06-12 Colleg [...] prior to MRI Latex Propensi Active Swelling [facility] ty to 06-12 [place] adverse 00:00: of reaction 00 Medicin s to e substanc e Cephalex Propensi Active Itching 2012-04 [facility] r in ty to 06-03 [place] adverse 00:00: of reaction 00 Medicin s to e drug LATEX DRUG Active High Rash Univers INGREDI 07-03 ity of 00:00: [place] [facility] Latex Drug Active Swelling Univers Allergy 07-03 ity of 00:00: [address] cephalex cephalex Active Memori a in in l [place] Latex Latex Active Memoria l [place] Gadavist Gadavist Active Memori a l Ricardo Zofran Zofran Active Memoria l [place] Feraheme Feraheme Active Memori a l Ricardo Cephalex Adverse Active Info Not Commo n in Reaction Available [facility] Zofran Adverse Active Info Not Common Reaction Available [facility] NO KNOWN Drug Active Univers ALLERGIE Class ity of S [facility] Family History Family Member Diagnosis Comments Start Date Stop Date Source Paternal grandfather [facility] [place] MD [facility] Social History Social Habit Start Date Stop Date Quantity Comments Source History SDOH University o f Alcohol Frequency [place] M edical Branch History SDOH University o f Alcohol Std [place] Medical Drinks Branch History SDOH University o f Alcohol Binge [place] Medic al Branch Exposure to Not sure University of SARS-CoV-2 [place] Medical (event) Branch Alcohol intake 2020-06-10 2020-06-10 Current drinker [facility] 00:00:00 00:00:00 of alcohol (finding) Tobacco use and 2020-02-21 2020-02-21 Never used [employer] of exposure 00:00:00 00:00:00 Medicine Alcohol Comment 2020-02-03 2020-02-03 occ drinker [facility] [place] [facility] 00:00:00 00:00:00 Social History 2018-10-01 2018-10-01 [facility] 13:53:53 13:53:53 Sex Assigned At [birth year] [facility] 00:00:00 00:00:00 Smoking Status Start Date Stop Date Source Never smoker [facility] Medications Ordered Filled Start Stop Current Ordering Indication Dosage Frequency Signature Comments Components Source Medication Medication Date Date Medication? Clinician (SIG) Name Name monsterlialesha Yes [id number] 5mL Take 5 mL Univers mine-pseudo 2-19 by mouth 4 it y of ephedrine-D 00:00[place] ([place] (BROMFED 00 times Medical DM) 2-30-10 daily as Bran ch mg/5 mL needed for syrup Congestion /Allergies . benzonatate Yes [id number] 200mg Take 2 Univers 100 mg 2-19 capsules ity of capsule 00:00: by mouth [place] 00 every 8 Medical (eight) Branch hours as needed for Cough. methylPREDN Yes [id number] Take by Univers ISolone 2-19 mouth ity of (MEDROL, 00:00: SEE-INSTRU Raj as JUANI,) 4 mg 00 CTIONS. Medica l tablets follow Branch package directions bromphenira Yes [id number] 5mL Take 5 mL Univers mine-pseudo 2-19 by mouth 4 it y of ephedrine-D 00:00: (four[place] (BROMFED 00 times Medical DM) 2-30-10 daily as Bran ch mg/5 mL needed for syrup Congestion /Allergies . benzonatate Yes [id number] 200mg Take 2 Univers 100 mg 2-19 capsules ity of capsule 00:00: by mouth [place] 00 every 8 Medical (eight) Branch hours as needed for Cough. methylPREDN 2021-0 Yes [id number] Take by Univers ISolone -19 mouth ity of (MEDROL, 00:00: SEE-INSTRU Raj as JUANI,) 4 mg 00 CTIONS. Medica l tablets follow Branch package directions bromphenira 2020-04 Yes [id number] 5mL Take 5 mL Univers mine-pseudo 05-16 by mouth 4 it y of ephedrine-D 00:00: (four[place] (BROMFED 00 times Medical DM) 2-30-10 daily as Bran ch mg/5 mL needed for syrup Congestion /Allergies or Cough. bromphenira 2020-04- No [id number] 5mL Take 5 mL Univers mine-pseudo 05-16 by mouth 4 i ty of ephedrine-D 00:00: 00:00 (four) Raj as M (BROMFED 00 :00 times Medical DM) 2-30-10 daily as Bran ch mg/5 mL needed for syrup Congestion /Allergies or Cough. hydrOXYchlo 2020-04 Yes 200mg Take 200 U nivers roQUINE 200 0-12 mg by ity of mg tablet 00:00: mouth (two) Medical times Branch daily. hydrOXYchlo 2020-04 Yes 200mg Take 200 U nivers roQUINE 200 0-12 mg by ity of mg tablet 00:00: mouth 2 [place] (two) Medical times Branch daily. hydrOXYchlo 2020-04 Yes 200mg Take 200 U nivers roQUINE 200 0-12 mg by ity of mg tablet 00:00: mouth [place] (two) Medical times Branch daily. hydrOXYchlo 2020-04 Yes 200mg Take 200 U nivers roQUINE 200 0-12 mg by ity of mg tablet 00:00: mouth 2 [place] (two) Medical times Branch daily. ELIQUIS 5 2020- Yes Univers mg tablet 9-17 ity of 00:00: Medical Branch ELIQUIS 5 2020-0 Yes Univers mg tablet 9-17 ity of 00:00: Medical Branch ELIQUIS 5 2020-0 Yes Univers mg tablet -17 ity of 00:00: Medical Branch ELIQUIS 5 2021-0 Yes Univers mg tablet -17 ity of 00:00: [place] 00 [facility] 50 0 Yes 50mg Take 50 mg U nivers mg capsule 9-13 by mouth ity o f 00:00: every [place] 00 morning. [facility] 50 0 Yes 50mg Take 50 mg U nivers mg capsule 9-13 by mouth ity o f 00:00: every [place] 00 morning. [facility] 50 0 Yes 50mg Take 50 mg U nivers mg capsule 9-13 by mouth ity o f 00:00: every [place] 00 morning. [facility] 50 Yes 50mg Take 50 mg U nivers mg capsule 9-13 by mouth ity o f 00:00: every [place] 00 morning. [facility] levothyroxi Yes TAKE 1 Univ ers ne 75 mcg 9-10 TABLET BY ity o f tablet 00:00: MOUTH [place] 00 EVERY DAY Medical IN [facility] MORNING ON AN EMPTY STOMACH levothyroxi Yes TAKE 1 Univ ers ne 75 mcg 9-10 TABLET BY ity o f tablet 00:00: MOUTH [place] 00 EVERY DAY Medical IN THE [place] MORNING ON AN EMPTY STOMACH levothyroxi Yes TAKE 1 Univ ers ne 75 mcg 9-10 TABLET BY ity o f tablet 00:00: MOUTH [place] 00 EVERY DAY Medical IN THE [place] MORNING ON AN EMPTY STOMACH levothyroxi Yes TAKE 1 Univ ers ne 75 mcg 9-10 TABLET BY ity o f tablet 00:00: MOUTH [place] 00 EVERY DAY Medical IN THE [place] MORNING ON AN EMPTY STOMACH morpHINE 2020- No 4mg 4 mg, Slow Un pau injection 4 12-05 IV Push, ity of mg 02:30: 01:45 ONCE, 1 [place] 00 :00 dose, Mon Medical 12/04/20 at [place] 2130, STAT proMETHazin 2020- No 25mg 25 mg, IV Univers e 12-05 Piggyback, ity of (PHENERGAN) 02:30: 02:30 [place]CE[place] 1 [place] 25 mg in 00 :00 dose, Mon Medica l NaCl 0.9% 12/04/20 at [facility] (NS) 50 mL 2130, 50 piggyback mL NaCl 0.9% 2020- No 500mL at 999 Univ ers (NS) bolus 12-05 mL/hr, 500 it y of infusion 02:30: 04:34 mL, IV [place] 500 mL 00 :00 Piggyback, Medical ONCE, 1 Branch dose, 12/04/20 at 2130, STAT iopamidol 2020- No [id number] 120mL 120 mL, Univers (ISOVUE 12-05 Intravenou ity o f 370-500 mL) 02:02: 02:05 s, ONCE, 1 [place] injection 00 :00 dose, Mon Medic al 120 mL 12/04/20 at Branch 2115, Routine proMETHazin 2020- No [id number] 25mg Univers e 12-04 ity of (PHENERGAN) 01:00: 01:03 [place] injection 00 :00 Medical 25 mg [place] proMETHazin 2020- No [id number] 25mg 25 mg, Univers e 12-04 Intramuscu ity of (PHENERGAN) 01:00: 01:03 lar, ONCE, [place] injection 00 :00 1 dose, Medical 25 mg [facility] 12/03/20 at 1999, Routine proMETHazin 2020- No [id number] 25mg Univers e 12-04 ity of (PHENERGAN) 01:00: 01:03 [place] injection 00 :00 Medical 25 mg [place] proMETHazin 2020- No [id number] 25mg 25 mg, Univers e 12-04 Intramuscu ity of (PHENERGAN) 01:00: 01:03 lar, ONCE, [place] injection 00 :00 1 dose, Medical 25 mg [facility] 12/03/20 at 1999, Routine Bacillus Yes [facility] Coagulans-I 10-27 [facility] 11:49: of (ALIGN 52 Medicin PREBIOTIC-P e ROBIOTIC OR) Hydroxychlo Yes 200 mg = 1 Memoria roquine 6-24 tab, PO, l Sulfate 200 20:11: Daily, 0 He rmann MG Oral 00 Refill(s) Tablet Hydroxychlo Yes 200 mg = 1 Memoria roquine 6-24 tab, PO, l Sulfate 200 20:11: Daily, 0 He rmann MG Oral 00 Refill(s) Tablet 24 HR Yes 400 mg = 2 Memori a topiramate 6-24 cap, PO, l 200 MG 20:06: Bedtime, # Rupal nn Extended 00 180 cap, 2 Release Refill(s), Capsule Pharmacy: [[facility] #[id number], 167.64, cm, 10/12/20 14:33:00 CDT, Height, 86.818, kg, 10/12/20 14:33:00 CDT, Weight 24 HR Yes 400 mg = 2 Memori a topiramate 6-24 cap, PO, l 200 MG 20:06: Bedtime, # Rupal nn Extended 00 180 cap, 2 Release Refill(s), Capsule Pharmacy: [[facility] #[id number], 167.64, cm, 10/12/20 14:33:00 CDT, Height, 86.818, kg, 10/12/20 14:33:00 CDT, Weight omeprazole Yes TAKE ONE Mem oria 40 mg oral 6-24 CAPSULE BY l delayed 19:42: MOUTH [place] release 00 EVERY capsule MORNING mesalamine Yes [...] MG Oral 6-24 Refill(s) l Tablet 19:41: [place] 00 linaclotide Yes 145 Memori a 0.145 MG 6-24 microgram l Oral 19:41: = 1 cap, Ricardo Capsule 00 PO, Daily, [Linzess] 30 minutes prior to the first meal of the day, # 30 cap, 0 Refill(s) Famotidine No 0 Memoria 40 MG Oral 6-24 Refill(s) l Tablet 19:41: [place] 00 linaclotide Yes 145 Memori a 0.145 MG 6-24 microgram l Oral 19:41: = 1 cap, Ricardo Capsule 00 PO, Daily, [Linzess] 30 minutes prior to the first meal of the day, # 30 cap, 0 Refill(s) hydroxychlo Yes [id number] 200mg Take 1 [facility] roquine 5-28 Tablet by [place] (PLAQUINIL) 00:00: mouth two o f 200 MG 00 times Medicin tablet daily. e Bacillus Yes [facility] Coagulans-I 5-21 [place] nulin 10:19: of (ALIGN 56 Medicin PREBIOTIC-P [...] 90 cap, 2 Release Refill(s), Capsule Pharmacy: [[facility]] [facility], 167.64, cm, 04/19/20 14:37:00 COMBUSTION ANALYST, Height, 87.273, kg, 08/29/20 16:36:00 CDT, Weight 24 HR Yes 200 mg = 1 Memori a topiramate 5-11 cap, PO, l 200 MG 21:45: Daily, # Ricardo Extended 00 90 cap, 2 Release Refill(s), [facility], 167.64, cm, 04/19/20 14:37:00 COMBUSTION ANALYST, Height, 87.273, kg, 08/29/20 16:36:00 CDT, Weight apixaban 5 Yes 5 mg, PO, Me moria MG Oral 5-11 Q12H, # 60 l Tablet 21:43: tab, 0 Ricardo [Eliquis] 00 Refill(s), Pharmacy: [facility], 167.64, cm, 04/19/20 14:37:00 COMBUSTION ANALYST, Height, 87.273, kg, 08/29/20 16:36:00 CDT, Weight apixaban 5 2020-0 Yes 5 mg, PO, Me moria MG Oral 5-11 Q12H, # 60 l Tablet 21:43: tab, 0 Ricardo [Eliquis] 00 Refill(s), Pharmacy: [facility], 167.64, cm, 04/19/20 14:37:00 COMBUSTION ANALYST, Height, 87.273, kg, 08/29/20 16:36:00 CDT, Weight levothyroxi 2020-0 Yes 50 Memori a ne 50 mcg 5-11 microgram l (0.05 mg) 21:41: = 1 tab, Herm zay oral tablet 00 PO, Daily, # 30 tab, 0 Refill(s) levothyroxi 0 Yes 50 Memori a ne 50 mcg 5-11 microgram l (0.05 mg) 21:41: = 1 tab, Herm zay oral tablet 00 PO, Daily, # 30 tab, 0 Refill(s) linaCLOtide 2020-0 Yes [facility] (LINZESS) 4-30 [place] 145 MCG 00:00: of CAPS 00 Medicin e linaCLOtide 2020-0 Yes [facility] (LINZESS) 4-30 [place] 145 MCG 00:00: of CAPS 00 Medicin e Mesalamine 2020-0 Yes [facility] (PENTASA) 4-28 [place] 500 MG CPCR 00:00: of 00 Medicin e Mesalamine 2020-0 Yes [facility] ([place]) 4-28 [place] 500 MG CPCR 00:00: of 00 Medicin e ELIQUIS 5 2020-0 Yes Arya MG TABS 4-22 [place] 00:00: of 00 Medicin e ELIQUIS 5 2020-0 Yes Arya MG TABS 4-22 [place] 00:00: of 00 Medicin e levothyroxi 2020-0 Yes TAKE 1 Bayl or ne 4-07 TABLET BY [place] (SYNTHROID) 00:00: MOUTH of 50 MCG 00 EVERY DAY Medicin tablet IN THE e MORNING ON AN EMPTY STOMACH levothyroxi 2021-0 Yes TAKE 1 Bayl or ne 4-07 TABLET BY [place] (SYNTHROID) 00:00: MOUTH of 50 MCG 00 EVERY DAY Medicin tablet IN THE e MORNING ON AN EMPTY STOMACH TROKENDI XR 2020-0 Yes 200mg 200 mg. Ba ylor 100 MG [facility] 3-16 [place] 00:00: Medicin e TROKENDI XR 2020-0 Yes 400mg 400 mg. Ba ylor 100 MG [facility] 3-16 [place] 00:00: Medicin e topiramate 2020-0 Yes 400mg 400 mg. Uni vers (TROKENDI 3-16 ity of XR) 100 mg 00:00: [address] topiramate 2020-0 Yes 400mg 400 mg. Uni vers (TROKENDI 3-16 ity of XR) 100 mg 00:00: [address] topiramate 2020-0 Yes 400mg 400 mg. Uni vers (TROKENDI 3-16 ity of XR) 100 mg 00:00: [address] topiramate 2020-0 Yes 400mg 400 mg. Uni vers (TROKENDI 3-16 ity of XR) 100 mg 00:00: [address] famotidine 2020-0 Yes 40mg 40 mg. Bay[place] [...] 12:53: daily. Hospit a 53 l montelukast 2021-0 Yes 10mg QD Take 10 mg Methodi (SINGULAIR) 2-[address] 10 mg 12:53: daily. Hospita tablet 53 l acetaminoph 0 [...] 90 cap, 2 Release Refill(s), Capsule Pharmacy: [[facility] #[id number], 167.64, cm, 04/19/20 14:37:00 COMBUSTION ANALYST, Height, 104.545, kg, 04/19/20 14:37:00 COMBUSTION ANALYST, Weight 24 HR 2019-04 Yes 100 mg = 1 Memori a topiramate 2-30 cap, PO, l 100 MG 21:09: Bedtime, # Rupal nn Extended 00 90 cap, 2 Release Refill(s), Capsule Pharmacy: [[facility] #[id number], 167.64, cm, 04/19/20 14:37:00 COMBUSTION ANALYST, Height, 104.545, kg, 04/19/20 14:37:00 COMBUSTION ANALYST, Weight Famotidine 2019-04 Yes 40 mg, PO, [...] Take 1 M ethodi dung HCl 1-10 -[address] (REGLAN 00:00: 00:00 mouth as Hospi ta ORAL) 00 :00 needed. l metoclopram 2019-04- No 1{tbl} Take 1 M ethodi dung HCl 1-10 -[address] (REGLAN 00:00: 00:00 mouth as Hospi ta ORAL) 00 :00 needed. l metoclopram 2019-04- No 1{tbl} Take 1 M ethodi dung HCl 1-10 -[address] (REGLAN 00:00: 00:00 mouth as Hospi ta ORAL) 00 :00 needed. l esomeprazol 2019-04 Yes Arya e (NEXIUM) 0-30 College 40 MG 00:00: of capsule 00 Medicin e esomeprazol 2019-04 Yes Univer s e 40 mg 0-30 ity of capsule 00:00: [place] [facility] esomeprazol 2019-04 Yes Univer s e 40 mg 0-30 ity of capsule 00:00: [place] [facility] esomeprazol 2019-04 Yes Univer s e 40 mg 0-30 ity of capsule 00:00: [place] [facility] esomeprazol 2019-04 Yes Univer s e 40 mg 0-30 ity of capsule 00:00: [place] [facility] esomeprazol 2019-04 Yes Arya e (NEXIUM) 0-30 College 40 MG 00:00: of capsule 00 Medicin e omeprazole 2019-04- No 20mg QD Take 1 [...] for 30 days. metoclopram 2019-04- No 5mg [id number] Take 1 Methodi dung 0-28 11-03 [id number] tablet (5 st (Reglan) 5 00:00: 05:59 3D mg total) H ospita MG tablet 00 :00 by mouth 3 l (three) times a day as needed (nausea, vomiting) for up to 5 days. metoclopram 2019-04- No 5mg [id number] Take 1 Methodi dung 0-28 11-03 [id number] tablet (5 st (Reglan) 5 00:00: 05:59 [...] it last week - unknown reason); (per [place] [facility], last filled 12/18/19, quantity: 30, day supply: 30) lisdexamfet 2019-04- No 40mg QD Take 40 mg Methodi amine 0-26 10-[address] (VYVANSE) 18:16: 00:00 daily. Hospi ta 40 MG 29 :00 (per l capsule patient, stopped taking it last week - unknown reason); (per [place] [facility], last filled [...] ONCE A e DAY. metoclopram 2019-04 Yes [facility] dung 0-21 College (REGLAN) 10 00:00: [...] HOURS Medicin inhaler e metoclopram 2019-04 No [facility] r dung 0-21 07-09 College (REGLAN) 10 00:00: 00:00 of MG tablet 00 :00 Medicin e topiramate 2019-04 2020- No 1{capsu QD Take 1 M ethodi [...] out of it) OXCARBAZEPI 2019-04- No (Patient Victor Manuel arias NE ORAL 0-20 10-[address] 23:40: 00:00 taking Hospita 28 :00 this l medication in the summer because she ran out of it) atropine 1 2019-04- No 1[drp] Q.5D Administer Methodi % 0-20 [address] ophthalmic 23:40: 00:00 the right H ospita solution 28 :00 eye 2 l (two) times a day. (start date: ~3 weeks ago - per patient) metoclopram 2019-04 No 5mg [id number] Take 1 Methodi dung 0-20 10- [id number] tablet (5 st (Reglan) 5 00:00: 00:00 3D mg total) H ospita MG tablet 00 :00 by mouth 3 l (three) times a day as needed (nausea, vomiting) for up to 5 days. metoclopram 2019-04- No 5mg [id number] Take 1 Methodi dung 0-20 - [id number] tablet (5 st (Reglan) 5 00:00: 00:00 3D mg total) H ospita MG tablet 00 :00 by mouth 3 l (three) times a day as needed (nausea, vomiting) for up to 5 days. Vyvanse Vyvanse Yes Na Savage 1 capsule Common 8-25 in the Spirit 00:00: morning - [facility] 00 [facility] oxcarbazepi 2019- Yes 300 mg = 1 Memoria ne 300 MG 9-06 tab, PO, l Oral Tablet 16:04: BID, # 180 Ricardo [Trileptal] 19 tab, 3 Refill(s), Pharmacy: [facility] #[id number] oxcarbazepi 2019-0 Yes 300 mg = 1 Memoria ne 300 MG 9-06 tab, PO, l Oral Tablet 16:04: BID, # 180 Ricardo [Trileptal] 19 tab, 3 Refill(s), Pharmacy: [facility] [employer] [facility] #[id number] 24 HR 2018- Yes 100 mg = 1 Memori a topiramate 9-06 cap, PO, l 100 MG 16:04: Daily, # [place] Extended 10 90 cap, 3 Release Refill(s), Capsule Pharmacy: [[facility] [employer] [facility] #[id number] 24 HR 2018- Yes 100 mg = 1 Memori a topiramate 9-06 cap, PO, l 100 MG 16:04: Daily, # [place] Extended 10 90 cap, 3 Release Refill(s), Capsule Pharmacy: [[facility] [employer] STORE #[id number] 24 HR No 100 mg = 1 Memori a topiramate 9-04 cap, PO, l 100 MG 18:31: Daily, X Ricardo Extended 30 day, # Release 30 cap, 3 Capsule Refill(s), [Trokendi] Pharmacy: [facility] No 100 mg = 1 Memori a topiramate 9-04 cap, PO, l 100 MG 18:31: Daily, X Ricardo Extended 30 day, # Release 30 cap, 3 Capsule Refill(s), [Trokendi] Pharmacy: [facility] oxcarbazepi No 300 mg = 1 Memoria ne 300 MG 9-04 tab, PO, l Oral Tablet 18:31: BID, X 30 H ermann [Trileptal] 02 day, # 60 tab, 3 Refill(s), Pharmacy: [facility] oxcarbazepi No 300 mg = 1 Memoria ne 300 MG 9-04 tab, PO, l Oral Tablet 18:31: BID, X 30 H ermann [Trileptal] 02 day, # 60 tab, 3 Refill(s), Pharmacy: [facility] lisdexamfet Yes 30 mg = [...] cap, 2 capsule Refill(s), Pharmacy: [facility] omeprazole Yes 20 mg = 1 Me moria 20 mg oral 7-17 cap, PO, l delayed 00:27: Daily, # Murray n release 00 30 cap, 2 capsule Refill(s), Pharmacy: [facility] oxcarbazepi Yes 300 mg = 1 Memoria ne 300 MG 7-03 tab, PO, l Oral Tablet 18:01: BID, # 60 H ermann [Trileptal] 00 tab, 2 Refill(s), Pharmacy: [facility] oxcarbazepi Yes 300 mg = 1 Memoria ne 300 MG 7-03 tab, PO, l Oral Tablet 18:01: BID, # 60 H ermann [Trileptal] 00 tab, 2 Refill(s), Pharmacy: [facility] Yes 100 mg = 1 Memori a topiramate 6-28 cap, PO, l 100 MG 14:50: Daily, # [place] Extended 00 30 cap, 3 Release Refill(s), Capsule Pharmacy: [[facility]] [facility] Yes 100 mg = 1 Memori a topiramate 6-28 cap, PO, l 100 MG 14:50: Daily, # Ricardo Extended 00 30 cap, 3 Release Refill(s), Capsule Pharmacy: [[facility]] [facility] topiramate Yes 25 mg = 1 Me moria 25 MG Oral 6-14 tab, PO, l Tablet 23:33: BID, # 60 Murray n [Topamax] 00 tab, 2 Refill(s), Pharmacy: [facility] topiramate Yes 25 mg = 1 Me moria 25 MG Oral 6-14 tab, PO, l Tablet 23:33: BID, # 60 Murray n [Topamax] 00 tab, 2 Refill(s), Pharmacy: [facility] Phenytoin Yes 200 mg = 2 Me moria sodium 100 6-13 cap, PO, l MG Extended 13:57: BID, # 120 [place] Release 00 cap, 3 Capsule Refill(s), [Dilantin] Pharmacy: [facility] Pharm[facility] [place] Phenytoin Yes 200 mg = 2 Me moria sodium 100 6-13 cap, PO, l MG Extended 13:57: BID, # 120 [place] Release 00 cap, 3 Capsule Refill(s), [Dilantin] Pharmacy: [facility] Pharm[facility] [place] Alprazolam Yes 0.5 mg = 1 M emoria 0.5 MG Oral 6-13 tab, PO, l Tablet 13:28: TID, 0 Ricardo [Xanax] 00 Refill(s) Zyrtec 0 Yes Daily, 0 Memoria 6-13 Refill(s) l 13:28: [place] 00 Alprazolam Yes 0.5 mg = 1 [...] 1-15 by mouth. ity of tablet 00:00: [address] montelukast Yes 10mg Take 10 mg Univers 10 mg 1-15 by mouth. ity of tablet 00:00: [address] montelukast Yes 10mg Take 10 mg Univers 10 mg 1-15 by mouth. ity of tablet 00:00: [address] montelukast Yes 10mg Take 10 mg Univers 10 mg 1-15 by mouth. ity of tablet 00:00: [place] 00 [facility] Yes 1{tbl} Take 1 Uni vers mg capsule 9-19 tablet by ity of 00:00: mouth 00 daily. MD Taryn mitchell [facility] Yes 1{tbl} Take 1 Uni vers mg capsule 9-19 tablet by ity of 00:00: mouth 00 daily. MD Taryn mitchell [facility] No known No Univers medications [facility] No known No Univers medications [facility] Immunizations Ordered Filled Immunization Date Status Comments [facility] e Immunization Name Name Fozia 2020-06-10 Completed Christianity 00:00:00 [facility] Fozia 2020-06-10 Completed Christianity 00:00:00 [facility] Fozia 2020-06-10 Completed Christianity 00:00:00 [facility] Fozia 2020-06-10 Completed Christianity 00:00:00 [facility] FLUCELVAX QUAD PF 2020-02-[address] 00:00:00 [facility] FLUCELVAX QUAD PF 2020-02-[address] 00:00:00 [facility] FLUCELVAX QUAD PF 2020-02-[address] 00:00:00 Hospital FLUCELVAX QUAD PF 2020-02-[address] 00:00:00 [facility] Influenza Split Completed Universit y of 00:00:00 [place] MD Toño bryan [facility] Influenza Split Completed Universit y of 00:00:00 [place] MD Toño bryan [facility] Vital Signs Vital Name Observation Time Observation Value Comments Source Systolic blood 2021-06-09 16:44:00 122 mm[Hg] [facility] sity [facility] Diastolic blood 2021-06-09 16:44:00 83 mm[Hg] [facility] Heart rate 2021-06-09 16:44:00 82 /min [facility] Body temperature 2021-06-09 16:44:00 36.83 Staci [facility] Respiratory rate 2021-06-09 16:44:00 18 /min [facility] Body height 2021-06-09 16:44:00 167.6 cm [facility] Body weight 2021-06-09 16:44:00 78.608 kg [facility] BMI 2021-06-09 16:44:00 27.97 kg/m2 [facility] Oxygen saturation in 2021-06-09 16:44:00 98 /min University of Arterial blood by [facility] conrad Pulse oximetry Branch Systolic blood 2021-03-16 15:58:00 114 mm[Hg] Univer sity of [facility] Diastolic blood 2021-03-16 15:58:00 75 mm[Hg] Unive rsity of pressure [place] [facility] Heart rate 2021-03-16 15:58:00 76 /min [facility] Body temperature 2021-03-16 15:58:00 36.78 Staci [facility] [place] [facility] Respiratory rate 2021-03-16 15:58:00 17 /min [facility] [place] [facility] Body height 2021-03-16 15:58:00 167.6 cm [facility] Body weight 2021-03-16 15:58:00 78.926 kg [facility] BMI 2021-03-16 15:58:00 28.08 kg/m2 [facility] Oxygen saturation in 2021-03-16 15:58:00 96 /min [facility] of Arterial blood by [facility] Pulse oximetry Branch Systolic blood 2021-02-20 14:14:00 120 mm[Hg] Univer sity of pressure [place] [facility] Diastolic blood 2021-02-20 14:14:00 79 mm[Hg] Unive rsity of pressure [place] [facility] Heart rate 2021-02-20 14:14:00 74 /min [facility] Body temperature 2021-02-20 14:14:00 36.78 Staci [facility] [place] [facility] Respiratory rate 2021-02-20 14:14:00 16 /min [facility] Body weight 2021-02-20 14:14:00 79.833 kg [facility] [place] [facility] BMI 2021-02-20 14:14:00 30.21 kg/m2 [facility] [place] [facility] Oxygen saturation in 2021-02-20 14:14:00 99 /min [facility] Arterial blood by [facility] Pulse oximetry Branch Systolic blood 2020-12-05 03:35:00 121 mm[Hg] [facility]iver [facility] Diastolic blood 2020-12-05 03:35:00 83 mm[Hg] Unive rsity of pressure [place] [facility] Heart rate 2020-12-05 03:35:00 79 /min [facility] [place] [facility] Oxygen saturation in 2020-12-05 03:35:00 100 /min [facility] Arterial blood by [facility] Pulse oximetry Branch Body temperature 2020-12-05 01:16:00 37.11 Staci Univ [facility] [place] [facility] Respiratory rate 2020-12-05 01:16:00 18 /min Univ [facility] [place] [facility] Body height 2020-12-05 01:16:00 167.6 cm [facility] [place] [facility] Body weight 2020-12-05 01:16:00 81.647 kg [facility] BMI 2020-12-05 01:16:00 29.05 kg/m2 [facility] Systolic blood 2020-12-04 00:19:00 114 mm[Hg] [facility] Diastolic blood 2020-12-04 00:19:00 79 mm[Hg] Unive rsity of pressure [place] [facility] Heart rate 2020-12-04 00:19:00 92 /min [facility] Body temperature 2020-12-04 00:19:00 37.17 Staci [facility] Respiratory rate 2020-12-04 00:19:00 18 /min [facility] [place] [facility] Body height 2020-12-04 00:19:00 167.6 cm [facility] Body weight 2020-12-04 00:19:00 81.647 kg [facility] BMI 2020-12-04 00:19:00 29.05 kg/m2 [facility] [place] [facility] Oxygen saturation in 2020-12-04 00:19:00 99 /min [facility] Arterial blood by [facility] Pulse oximetry Branch Systolic blood 2020-10-27 16:50:00 125 mm[Hg] [facility] Medicine Diastolic blood 2020-10-27 16:50:00 85 mm[Hg] [facility] Medicine Heart rate 2020-10-27 16:50:00 96 /min [facility] Medicine Respiratory rate 2020-10-27 16:50:00 16 /min [facility] Body height 2020-10-27 16:50:00 167.6 cm [facility] Body weight 2020-10-27 16:50:00 86.637 [facility] BMI 2020-10-27 16:50:00 30.83 kg/m2 [facility] Oxygen saturation in 2020-10-27 16:50:00 100 /min [facility] of Arterial blood by Medicine Pulse oximetry Systolic blood 2020-10-27 16:50:00 125 mm[Hg] [facility] Medicine Diastolic blood 2020-10-27 16:50:00 85 mm[Hg] [facility] Medicine Heart rate 2020-10-27 16:50:00 96 /min [facility] Respiratory rate 2020-10-27 16:50:00 16 /min [facility] Body height 2020-10-27 16:50:00 167.6 cm [facility] Body weight 2020-10-27 16:50:00 86.637 kg [facility] BMI 2020-10-27 16:50:00 30.83 kg/m2 [facility] Oxygen saturation in 2020-10-27 16:50:00 100 /min [facility] of Arterial blood by Medicine Pulse oximetry Respiratory rate 2020-09-08 15:15:00 16 /min [facility] Body height 2020-09-08 15:15:00 167.6 cm [facility] Body weight 2020-09-08 15:15:00 88.179 kg [facility] BMI 2020-09-08 15:15:00 31.38 kg/m2 [facility] Oxygen saturation in 2020-09-08 15:15:00 99 /min [facility] of Arterial blood by Medicine Pulse oximetry Systolic blood 2020-09-08 15:15:00 118 mm[Hg] [facility] Medicine Diastolic blood 2020-09-08 15:15:00 79 mm[Hg] [facility] Medicine Heart rate 2020-09-08 15:15:00 84 /min [facility] Respiratory rate 2020-09-08 15:15:00 16 /min [facility] Body height 2020-09-08 15:15:00 167.6 cm [facility] Body weight 2020-09-08 15:15:00 88.179 kg [facility] BMI 2020-09-08 15:15:00 31.38 kg/m2 [facility] Oxygen saturation in 2020-09-08 15:15:00 99 /min [facility] blood by Medicine Pulse oximetry Systolic blood 2020-09-08 15:15:00 118 mm[Hg] [facility] Medicine Diastolic blood 2020-09-08 15:15:00 79 mm[Hg] [facility] Medicine Heart rate 2020-09-08 15:15:00 84 /min [facility] Height 2020-10-12 19:27:00 167.64 cm [facility] Weight 2020-10-12 19:27:00 [facility] Calculated 2020-10-12 19:27:00 Memori al Ricardo Systolic (mm Hg) 2020-10-12 19:27:00 Unruly rial Ricardo Diastolic (mm Hg) 2020-10-12 19:27:00 Mem orial [place] Heart Rate 2020-10-12 19:27:00 [facility] Respitory Rate 2020-10-12 19:27:00 Memori al [place] Weight 2020-08-29 21:36:00 [facility] Systolic blood 2020-06-10 20:17:19 128 mm[Hg] [facility] pressure Diastolic blood 2020-06-10 20:17:19 68 mm[Hg] [facility] pressure Heart rate 2020-06-10 20:17:19 88 /min [facility] Body temperature 2020-06-10 20:17:19 36.11 Staci [facility] Respiratory rate 2020-06-10 20:17:19 16 /min [facility] Oxygen saturation in 2020-06-10 20:17:19 98 /min [facility] Arterial blood by Pulse oximetry Body height 2020-06-10 18:48:00 167.6 cm [facility] Body weight 2020-06-10 18:48:00 94.802 kg [facility] BMI 2020-06-10 18:48:00 33.73 kg/m2 [facility] Systolic (mm Hg) 2020-04-19 20:08:00 Unruly rial Ricardo Diastolic (mm Hg) 2020-04-19 20:08:00 Mem orial Ricardo Heart Rate 2020-04-19 20:08:00 [facility] Ricardo Respitory Rate 2020-04-19 20:08:00 Memori al [place] Height 2020-04-19 20:08:00 167.64 cm [facility] Weight 2020-04-19 20:08:00 [facility] Ric[facility] BMI Calculated 2020-04-19 20:08:00 Memori al [place] Systolic (mm Hg) 2020-03-29 20:19:00 Unruly rial [place] Diastolic (mm Hg) 2020-03-29 20:19:00 Mem orial Ricardo Heart Rate 2020-03-29 20:19:00 [facility] Respitory Rate 2020-03-29 20:19:00 Memori al Ricardo Height 2020-03-29 20:19:00 167.64 cm [facility] Weight 2020-03-29 20:19:00 [facility] [place] BMI Calculated 2020-03-29 20:19:00 Memori al [place] Systolic (mm Hg) 2020-02-29 17:31:00 Unruly rial [place] Diastolic (mm Hg) 2020-02-29 17:31:00 Mem orial [place] Heart Rate 2020-02-29 17:31:00 [facility] [place] Respitory Rate 2020-02-29 17:31:00 Memori al [place] Height 2020-02-29 17:31:00 167.64 cm [facility]ardo Weight 2020-02-29 17:31:00 [facility] BMI Calculated 2020-02-29 17:31:00 Memori al [place] Systolic (mm Hg) 2018-12-23 18:03:00 Unruly rial [place] Diastolic (mm Hg) 2018-12-23 18:03:00 Mem orial [place] Heart Rate 2018-12-23 18:03:00 [facility] [place] Respitory Rate 2018-12-23 18:03:00 Memori al Ricardo Height 2018-12-23 18:03:00 167.64 cm [facility] [place] Weight 2018-12-23 18:03:00 [facility] Ric[facility] BMI Calculated 2018-12-23 18:03:00 Memori al Ricardo BMI Calculated 2018-11-27 15:59:00 Memori al [place] Weight 2018-11-27 15:59:00 [facility] Height 2018-11-27 15:59:00 167.64 cm [facility] [place] Heart Rate 2018-11-27 15:59:00 [facility] Respitory Rate 2018-11-27 15:59:00 Memori al [place] Systolic (mm Hg) 2018-11-27 15:59:00 Unruly rial Ricardo Diastolic (mm Hg) 2018-11-27 15:59:00 Mem orial Ricardo BMI Calculated 2018-10-16 14:19:00 Memori al [place] Weight 2018-10-16 14:19:00 [facility] Height 2018-10-16 14:19:00 167.64 cm [facility] Heart Rate 2018-10-16 14:19:00 [facility] Respitory Rate 2018-10-16 14:19:00 Memori al [place] Systolic (mm Hg) 2018-10-16 14:19:00 Unruly rial Ricardo Diastolic (mm Hg) 2018-10-16 14:19:00 Mem orial Ricardo BMI Calculated 2018-10-01 13:18:00 Memori al [place] Weight 2018-10-01 13:18:00 [facility] [place] Height 2018-10-01 13:18:00 167.64 cm [facility] Respitory Rate 2018-10-01 13:18:00 Memori al [place] Heart Rate 2018-10-01 13:18:00 [facility] Systolic (mm Hg) 2018-10-01 13:18:00 Unruly rial Ricardo Diastolic (mm Hg) 2018-10-01 13:18:00 Mem orial Ricardo Procedures Procedure Date / Time Performing Clinician Source Performed POCT MOLECULAR FLU 2021-06-09 17:02:00 Maddy Simms [facility] POCT MOLECULAR STREP 2021-06-09 16:56:00 Maddy Simms [facility] TYPE AND SCREEN 2021-03-30 17:04:00 Jori Long [facility] COMPLETE BLOOD COUNT W/ 2021-03-30 17:04:00 Jori Long [facility] TOTAL PROTEIN 2021-03-30 17:04:00 [facility] ALBUM[facility] L[facility] 2021-03-30 17:04:00 [facility] CALCIUM LEVEL TOTAL 2021-03-30 17:04:00 Jori Long [facility] PHOSPHORUS LEVEL 2021-03-30 17:04:00 [facility]SE, RANDOM 2021-03-30 17:04:00 [facility] BLOOD UREA NITROGEN 2021-03-30 17:04:00 Jori Long [facility] SERUM CREATININE 2021-03-30 17:04:00 [facility]IC ACID 2021-03-30 17:04:00 Jori Long [facility] FRACTIONATED BILIRUBIN 2021-03-30 17:04:00 [facility] ALKALINE PHOSPHATASE 2021-03-30 17:04:00 Jori Long [facility] LACTATE DEHYDROGENASE 2021-03-30 17:04:00 Jori [facility] ALANINE AMINOTRANSFERASE 2021-03-30 17:04:00 [facility] ELECTROLYTE PANEL 2021-03-30 17:04:00 [facility] MAGNESIUM LEVEL 2021-03-30 17:04:00 Jori Long [facility] HP MD T(15;17) PML-LEN 2021-03-30 17:04:00 Jori Long [facility] QUANTITATIVE PCR MD Timothy Amaro cer COLLECTION, BLOOD Center ABORH 2021-03-30 17:04:00 Jori Long [facility] ANTIBODY SCREEN 2021-03-30 17:04:00 Ethan [facility] Results CBC 2021-03-30 17:04:00 Ethan [facility] MANUAL DIFFERENTIAL 2021-03-30 17:04:00 Jori Long [facility] SERUM CREATININE 2021-03-30 17:04:00 [facility] .GLOMERULAR FILTRATION 2021-03-30 17:04:00 Jori Long [facility] RATE [facility] HP T(15;17) PML-LEN 2021-03-30 17:04:00 Jori Long [facility] QUANTITATIVE PCR [facility] cer INTERPRETATION AND REPORT Center CLOT EXPIRATION DATE 2021-03-30 17:04:[address] [facility] TMP INTERPRETATION 2021-03-30 17:04:00 Jori Long [facility] ANTIBODY SCREEN NEGATIVE MD Mendez [facility] POCT GRP A STREP 2021-03-16 16:11:00 Earle Iverson [facility] (MOLECULAR) Medical Branch XR CHEST 1 VW 2020-12-05 02:15:29 [facility] PELVIS W 2020-12-05 02:09:58 Ester [facility] CONTRAST [facility] Branch POCT TEST 2020-12-05 01:31:00 Truong Norman [facility] [place] LIPASE 2020-12-05 01:29:00 Ester [facility] TROPONIN I 2020-12-05 01:29:00 Ester [facility] COMP. METABOLIC PANEL 2020-12-05 01:29:00 Truong Norman [facility] ([id number]) Medical Branch CBC WITH DIFF 2020-12-05 01:29:00 [facility] URIN[facility]IS 2020-12-05 01:29:00 Ester [facility] NOTICE OF PRIVACY 2020-12-05 01:06:38 Doctor Unassigned, No [facility] PRACTICES Name Medical Branch CONSENT/REFUSAL FOR 2020-12-05 01:05:01 [facility], [facility] Name Medical Branch POCT GRP A STREP 2020-12-04 00:42:00 Tessa Mendoza [facility] (MOLECULAR) Medical Branch MRI THORACIC SPINE W 2020-06-06 22:01:[address] [facility] CONTRAST MRI CERVICAL SPINE W 2020-06-06 22:01:[address] [facility] CONTRAST MRI BRAIN W WO CONTRAST 2020-06-06 22:00:00 Caleb Kent [facility] C-REACTIVE PROTEIN 2020-06-06 18:12:00 [facility] Natvarlal INTERLEUKIN 6 2020-06-06 18:12:00 Jen Tsai ospital Natvarlal FERRITIN LEVEL 2020-06-06 18:12:00 Jen Tsai ospital Natvarlal D-DIMER 2020-06-06 18:12:00 Jen Tsai ospital Natvarlal LDH 2020-06-06 18:12:00 Jen Tsai H ospital Natvarlal FIBRINOGEN 2020-06-06 18:12:00 [facility] CHEST WO CONTRAST 2020-06-06 18:03:[address] [facility] URINE CULTURE 2020-06-04 13:58:00 Kanchan Downey spital URINALYSIS SCREEN AND 2020-06-04 13:58:00 [facility] MICROSCOPY, WITH REFLEX TO CULTURE HCG QUALITATIVE, URINE 2020-06-04 13:58:00 [facility] SCREEN COVID-19 QUALITATIVE 2020-06-04 13:45:00 [facility] RT-PCR HC COMPLETE BLD COUNT 2020-06-04 08:45:00 [facility] W/AUTO DIFF Imarendene COMPREHENSIVE METABOLIC 2020-06-04 07:56:00 [facility] PANEL Imarendenewe ESTIMATED GFR 2020-06-04 07:56:00 [facility] OCT, OPTIC NERVE - OU - 2020-03-08 19:34:[address] [facility] AUTOMATED VISUAL FIELD, 2020-03-08 19:34:38 [facility] EXTENDED - OU - BOTH EYES DURABLE MEDICAL EQUIPMENT 2020-02-16 15:31:42 [facility] BASIC METABOLIC PANEL 2020-02-16 10:10:00 NwoguSharlene [facility] [place] ESTIMATED GFR 2020-02-16 10:10:00 [facility] DURABLE MEDICAL EQUIPMENT 2020-02-15 20:56:49 Caleb Roque [facility] EMG 2020-02-15 17:46:48 [facility] HC COMPLETE BLD COUNT 2020-02-15 10:00:00 [facility]FF BASIC METABOLIC PANEL 2020-02-15 10:00:00 [facility] ESTIMATED GFR 2020-02-15 10:00:00 Jasmeet Benedict [facility] spital VISUAL EVOKED POTENTIALS 2020-02-14 16:52:23 Dora Montalvo [facility] (VEP) HC COMPLETE BLD COUNT 2020-02-14 09:15:[address] [facility]FF BASIC METABOLIC PANEL 2020-02-14 09:15:[address] [facility] ESTIMATED GFR 2020-02-14 09:15:00 Jasmeet Benedict Ho spital MRI LUMBAR SPINE W WO 2020-02-13 15:28:12 [facility] CONTRAST MRI BRAIN VENOGRAM 2020-02-13 14:47:24 [facility] HC COMPLETE BLD COUNT 2020-02-13 09:05:00 [facility] W/AUTO DIFF BASIC METABOLIC PANEL 2020-02-13 09:00:00 [facility] ESTIMATED GFR 2020-02-13 09:00:00 Jasmeet Benedict [facility] spital HC COMPLETE BLD COUNT 2020-02-12 15:18:00 [facility] W/AUTO DIFF BASIC METABOLIC PANEL 2020-02-12 13:00:00 [facility] ESTIMATED GFR 2020-02-12 13:00:00 Rennysarah Silva [facility] Ho spital VENIPUNC NEED PHYS 2020-02-08 15:39:11 ColonFamilia [facility] SKILL,DX OR RX MISCELLANEOUS REFERRAL 2020-02-08 14:00:00 [facility] Marck US DUPLEX VENOUS UPPER 2020-02-07 22:26:50 [facility] EXTREMITY RIGHT VENIPUNC NEED PHYS 2020-02-07 14:18:07 Javier Kolb [facility] SKILL,DX OR RX HC COMPLETE BLD COUNT 2020-02-07 10:00:00 [facility] W/AUTO DIFF BASIC METABOLIC PANEL 2020-02-07 10:00:00 [facility] ESTIMATED GFR 2020-02-07 10:00:00 [facility] HC COMPLETE BLD COUNT 2020-02-06 11:18:00 [facility] W/AUTO DIFF BASIC METABOLIC PANEL 2020-02-06 11:18:00 [facility] ESTIMATED GFR 2020-02-06 11:18:00 Lock, [facility] XR CHEST 1 VW PORTABLE 2020-02-06 02:27:51 Varsha, [facility] ECG 12-LEAD 2020-02-06 02:12:53 Varsha, [facility] HC COMPLETE BLD COUNT 2020-02-05 11:00:00 Varsha [facility] W/AUTO DIFF BASIC METABOLIC PANEL 2020-02-05 09:00:00 Varsha [facility] ESTIMATED GFR 2020-02-05 09:00:00 Varsha [facility] IGG SYNTHESIS RATE STUDY 2020-02-04 16:00:00 [facility] FUNGUS CULTURE 2020-02-04 15:56:00 [facility] AFB CULTURE 2020-02-04 15:56:00 [facility] IR LUMBAR PUNCTURE 2020-02-04 15:00:00 [facility] CSF CULTURE 2020-02-04 14:56:00 [facility] CRYPTOCOCCAL ANTIGEN 2020-02-04 14:56:00 [facility] SCREEN GRAM STAIN 2020-02-04 14:56:00 [facility] CSF CELL COUNT WITH 2020-02-04 14:56:00 [facility] DIFFERENTIAL GLUCOSE LEVEL, CSF 2020-02-04 14:56:00 [facility] IGG SYNTHESIS RATE STUDY 2020-02-04 14:56:00 [facility] VDRL, CSF 2020-02-04 14:56:00 [facility] LYME DISEASE REFLEXIVE 2020-02-04 14:56:00 [facility] PANEL, CSF CYTOMEGALOVIRUS BY PCR 2020-02-04 14:56:00 [facility] MISCELLANEOUS REFERRAL 2020-02-04 14:56:00 [facility] TEST ENTEROVIRUS BY PCR 2020-02-04 14:56:00 [facility] HERPES SIMPLEX VIRUS BY 2020-02-04 14:56:00 [facility] PCR FLOW CYTOMETRY EVALUATION 2020-02-04 14:56:00 [facility] [place] VIRUS ANTIBODY 2020-02-04 14:56:00 [facility] PANEL, CSF ANGIOTENSIN CONVERTING 2020-02-04 14:56:00 [facility] ENZYME, CSF OLIGOCLONAL BANDING, CSF 2020-02-04 14:56:00 [facility] MISCELLANEOUS REFERRAL 2020-02-04 14:56:00 [facility] TEST EEG AWAKE/ASLEEP LESS THAN 2020-02-04 12:19:32 [facility] 41 MIN ECG 12-LEAD 2020-02-04 09:50:41 [facility] AEROBIC & 2020-02-04 06:50:00 [facility] ANAEROBIC BLOOD CULTURE, AEROBIC & 2020-02-04 06:40:00 [facility] ANAEROBIC MISCELLANEOUS REFERRAL 2020-02-04 06:40:00 [facility] COMPLETE BLD COUNT 2020-02-04 06:40:00 [facility] W/AUTO DIFF BASIC METABOLIC PANEL 2020-02-04 06:40:00 [facility] ESTIMATED GFR 2020-02-04 06:40:00 [facility] URINE CULTURE 2020-02-04 05:56:00 [facility] URINALYSIS SCREEN AND 2020-02-04 05:56:00 [facility], WITH REFLEX TO CULTURE URINE DRUGS OF ABUSE 2020-02-04 05:56:00 Edgar Manan [facility] SCREEN COVID-19 QUALITATIVE 2020-02-04 04:41:00 Kim Guevara [facility] RT-PCR MRI BRAIN & ORBIT W WO 2020-02-04 03:12:00 Manan Hernández [facility] CONTRAST MRI CERVICAL SPINE W 2020-02-04 03:12:00 [facility] THORACIC SPINE W 2020-02-04 03:12:00 [facility] CYTOLOGY 2020-02-04 01:17:00 [facility] REQUEST COMPREHENSIVE METABOLIC 2020-02-03 23:35:00 [facility] [place] PANEL ESTIMATED GFR 2020-02-03 23:35:00 Kim Guevara [facility] HC COMPLETE BLD COUNT 2020-02-03 23:25:00 [facility] W/AUTO DIFF ELMER 2020-02-03 23:25:00 [facility] FOLATE LEVEL 2020-02-03 23:25:00 [facility] VITAMIN B12 LEVEL 2020-02-03 23:25:00 [facility] C-REACTIVE PROTEIN 2020-02-03 23:25:00 [facility] HOMOCYSTINE, PLASMA 2020-02-03 23:25:00 [facility] CORTISOL LEVEL, RANDOM 2020-02-03 23:25:00 [facility] SEDIMENTATION RATE 2020-02-03 23:25:00 [facility] RHEUMATOID FACTOR 2020-02-03 23:25:00 [facility] THYROID STIMULATING 2020-02-03 23:25:00 [facility] HORMONE T4, FREE 2020-02-03 23:25:00 [facility] T3 2020-02-03 23:25:00 [facility] SYPHILIS TREPONEMA SCREEN 2020-02-03 23:25:00 [facility] WITH RPR CONFIRMATION (REVERSE ALGORITHM) HIV AG/AB COMBINATION 2020-02-03 23:25:00 [facility] VITAMIN D 25 HYDROXY LEVEL 2020-02-03 23:25:00 [facility] B. BURGDORFERI ABS TOTAL, 2020-02-03 23:25:00 [facility] Manan Yvon [facility] SERUM CT HEAD WO CONTRAST 2020-02-03 21:14:55 [facility] HCG QUANTITATIVE, SERUM 2020-02-03 19:27:00 [facility] [place] Tubal ligation [facility] Plan of Care Planned Activity Planned Date Details Comments Source Future Scheduled 2021-12-08 HEPATITIS B VACCINES (1 [facility] Test 22:34:45 of 3 - 3-dose series) Hospit al [code = HEPATITIS B VACCINES (1 of 3 - 3-dose series)] Future Scheduled 2021-12-08 COVID-19 VACCINE (#1) [facility] 22:34:45 [code = COVID-19 Hospital VACCINE (#1)] Future Scheduled 2021-12-08 Pneumococcal Vaccine: [facility] Test 22:34:45 Pediatrics (0 to 5 Hospital Years) and At-Risk Patients (6 to 64 Years) (1 - PCV) [code = Pneumococcal Vaccine: Pediatrics (0 to 5 Years) and At-Risk Patients (6 to 64 Years) (1 - PCV)] Future Scheduled 2021-12-08 Hepatitis C screening [facility] Test 22:34:45 (procedure) [code = Hospital 030115167] Future Scheduled 2021-12-08 Screening for malignant [facility] Test 22:34:45 neoplasm of cervix [facility] (procedure) [code = 759652958] Future Scheduled 2021-12-08 INFLUENZA VACCINE [code [facility] Test 22:34:45 = INFLUENZA VACCINE] Hospita l Future Scheduled 2021-11-19 COVID-19 Vaccination Uni versity of Test 14:10:01 (#1) [code = COVID-19 [facility] Vaccination (#1)] Cancer [facility] Future Scheduled 2021-10-12 COVID-19 Vaccination Uni versity of Test 03:31:54 (#1) [code = COVID-19 [facility] Vaccination (#1)] Cancer [facility] Future Scheduled 2021-05-22 COVID-19 VACCINE (1) [facility] 13:11:02 [code = COVID-19 Hospital VACCINE (1)] Future Scheduled 2021-05-22 Hepatitis C screening [facility] Test 13:11:02 (procedure) [code = Hospital 702658298] Future Scheduled 2021-05-22 INFLUENZA VACCINE [code [facility] 13:11:02 = INFLUENZA VACCINE] Hospita l Future Scheduled 2021-05-22 Screening for malignant [facility] Test 13:11:02 neoplasm of cervix Hospital (procedure) [code = 810499436] Future Scheduled 2020-10-27 COMPREHENSIVE METABOLIC Ordered: [facility] Test 12:31:11 PANEL [code = 73437-4] 10/27/2020 Medic ine Future Scheduled 2020-10-27 CBC W/AUTO DIFF WITH Ordered: [facility] Test 12:31:11 PLATELETS [code = 10/27/2020 Medicine 76200-0] Future Scheduled 2020-10-27 SEDIMENTATION RATE Ordered: [facility] Test 12:31:11 MODIFIED WESTERGREN 10/27/2020 Medicine [code = 4537-7] Future Scheduled 2020-10-27 RANDOM URINE Ordered: [facility] Janet ege of Test 12:31:11 PROTEIN/CREATININE 10/27/2020 Medicine [code = 2890-2] Future Scheduled 2020-10-27 URINALYSIS, COMPLETE Ordered: [facility] Test 12:31:11 W/REFLEX TO CULTURE 10/27/2020 Medicine [code = 26583-8] Future Scheduled 2020-10-27 COMPLEMENT C3 AND C4 Ordered: [facility] Test 12:31:11 [code = NOCPT] 10/27/2020 Medicine Future Scheduled 2020-10-27 DNA (DS) ANTIBODY, Ordered: [facility] Test 12:31:11 CRITHIDIA IFA W/RX 10/27/2020 Medicine TITER [code = 6457-6] Future Scheduled 2020-10-27 C-REACTIVE PROTEIN Ordered: [facility] of Test 12:31:11 [code = 1988-5] 10/27/2020 Medicine Future Scheduled 2020-10-27 HAPTOGLOBIN [code = Ordered: [facility] of Test 12:31:11 01042-0] 10/27/2020 Medicine Future Scheduled 2020-10-27 LACTATE DEHYDROGENASE Ordered: [facility] Test 12:31:11 [code = 2532-0] 10/27/2020 Medicine Future Scheduled 2020-10-27 RETICULOCYTE WITH Ordered: [facility] of Test 12:31:11 ABSOLUTE [code = NOCPT] 10/27/2020 Medi cine Future Scheduled 2020-10-27 PATH REVIEW, SMEAR Ordered: [facility] Test 12:31:11 [code = 25550-1] 10/27/2020 Medicine Future Scheduled 2020-10-27 DIRECT ANTIGLOBULIN Ordered: [facility] Test 12:31:11 TEST [code = 30942] 10/27/2020 Medicine Future Scheduled 2020-10-27 COVID-19 Vaccine (1) [facility] of Test 11:49:19 [code = COVID-19 Medicine Vaccine (1)] Future Scheduled 2020-10-27 TETANUS SHOT (ADULT) [facility] Test 11:49:19 [code = TETANUS SHOT Medicin e (ADULT)] Future Scheduled 2020-10-27 BMI FOLLOW UP PLAN [facility] Test 11:49:19 [code = BMI FOLLOW UP Medici ne PLAN] Future Scheduled 2020-10-27 Hepatitis C screening [facility] Test 11:49:19 (procedure) [code = Medicine 760528992] Future Scheduled 2020-10-27 Human immunodeficiency B [facility] Test 11:49:19 virus screening Medicine (procedure) [code = 504975301] Future Scheduled 2020-10-27 Screening for malignant [facility] Test 11:49:19 neoplasm of cervix Medicine (procedure) [code = 090755573] Future Scheduled 2020-10-27 FLU VACCINE > 6 MONTHS B [facility] of Test 11:49:19 [code = FLU VACCINE > 6 Medi cine MONTHS] Future Scheduled 2020-09-08 COVID-19 Vaccine (1) [facility] of Test 13:06:03 [code = COVID-19 Medicine Vaccine (1)] Future Scheduled 2020-09-08 TETANUS SHOT (ADULT) [facility] of Test 13:06:03 [code = TETANUS SHOT Medicin e (ADULT)] Future Scheduled 2020-09-08 BMI FOLLOW UP PLAN [facility] of Test 13:06:03 [code = BMI FOLLOW UP Medici ne PLAN] Future Scheduled 2020-09-08 Hepatitis C screening [employer] of Test 13:06:03 (procedure) [code = Medicine 779060704] Future Scheduled 2020-09-08 Human immunodeficiency B [facility] of Test 13:06:03 virus screening Medicine (procedure) [code = 388255854] Future Scheduled 2020-09-08 Screening for malignant [facility] of Test 13:06:03 neoplasm of cervix Medicine (procedure) [code = 493413702] Future Scheduled 2020-09-08 FLU VACCINE > 6 MONTHS B [facility] of Test 13:06:03 [code = FLU VACCINE > 6 Medi cine MONTHS] Future Scheduled COVID-19 VACCINE (1) [facility] [code = COVID-19 Hospital VACCINE (1)] Future Scheduled Hepatitis C screening [facility] (procedure) [code = Hospital 991597893] Future Scheduled INFLUENZA VACCINE [code [facility] = INFLUENZA VACCINE] Hospita l Future Scheduled Screening for malignant [facility] neoplasm of cervix Hospital (procedure) [code = 166778045] Future Scheduled COVID-19 VACCINE (1) [facility] [code = COVID-19 Hospital VACCINE (1)] Future Scheduled Hepatitis C screening [facility] Test (procedure) [code = Hospital 924259564] Future Scheduled INFLUENZA VACCINE [code [facility] = INFLUENZA VACCINE] Hospita l Future Scheduled Screening for malignant [facility] Test neoplasm of cervix Hospital (procedure) [code = 183097574] Encounters Start End Encounter Admission Attending Care Care Encounter Source Date/Time Date/Time Type Type Clinicians Facility Department ID 2021-11-21 Outpatient Savage, Na [facility] [id number] 2 Common 13:25:00 [facility] 2021-05-25 Outpatient Savage, Na [facility] [id number] 2 Common 09:21:01 [facility] 2021-05-16 [facility] [id number] 2 Common 14:39:54 [facility] 2021-05-16 Outpatient Savage, Soco [facility] [id number] 2 Common 14:39:03 [facility] 2021-05-16 Outpatient Janette Na [facility] [id number] 2 Common 14:08:33 [facility] 2021-05-16 Outpatient Savage, Na STLMLC STLMLC [id number] 2 Common 13:55:22 [id number] [facility] 2021-05-16 Outpatient Savage, Na STLMLC STLMLC [id number] 2 Common 13:50:31 [id number] [facility] 2021-05-16 Outpatient Savage, Na STLMLC STLMLC [id number] 2 Common 13:20:21 [id number] [facility] 2021-05-16 Outpatient Savage, Na STLMLC STLMLC [id number] 2 Common 13:00:40 [id number] [facility] 2021-05-16 Outpatient Savage, Na STLMLC STLMLC [id number] 2 Common 12:46:28 [id number] [facility] 2021-05-16 Outpatient Svaage, Na STLMLC STLMLC [id number] 2 Common 12:38:13 [id number] [facility] 2021-05-16 Outpatient Savage, Na STLMLC STLMLC [id number] 2 Common 12:35:30 [id number] [facility] 2021-05-16 Outpatient Savage, Na STLMLC STLMLC [id number] 2 Common 12:34:43 [id number] [facility] 2021-05-16 Outpatient Savage, Na STLMLC STLMLC [id number] 2 Common 12:31:51 [id number] [facility] 2021-05-16 Outpatient Savage, Na STLMLC STLMLC [id number] 2 Common 12:06:00 [id number] [facility] 2021-05-16 Outpatient Savage, Na STLMLC STLMLC [id number] 2 Common 12:01:01 [id number] [facility] 2021-05-16 Outpatient Savage, Na STLMLC STLMLC [id number] 2 Common 11:58:36 [id number] [facility] 2021-05-16 Outpatient Savage, Na STLMLC STLMLC [id number] 2 Common 11:57:24 [id number] [facility] 2021-05-16 Outpatient Savage, Na STLMLC STLMLC [id number] 2 Common 11:34:36 [id number] [facility] 2021-05-16 Outpatient Savage, Na STLMLC STLMLC [id number] 2 Common 11:08:41 [id number] [facility] 2021-05-16 Outpatient Savage, Na STLMLC STLMLC [id number] 2 Common 11:06:29 [id number] [facility] 2021-05-16 Outpatient Savage, Na STLMLC STLMLC [id number] 2 Common 11:05:46 [id number] [facility] 2021-10-29 2021-10-29 ambulatory STLMLC STLMLC [id number] Common 00:00:00 00:00:00 [facility] 2021-10-24 2021-10-24 ambulatory STLMLC STLMLC [id number] Common 00:00:00 00:00:00 [facility] 2021-06-12 2021-06-12 ambulatory STLMLC STLMLC [id number] Common 00:00:00 00:00:00 [facility] 2021-06-12 2021-06-12 ambulatory STLMLC STLMLC [id number] Common 00:00:00 00:00:00 [facility] 2021-06-09 2021-06-09 [facility] [id number] Univers 10:40:00 11:06:50 MADDY ity [facility] 2021-06-09 2021-06-09 [facility] 1.2.840.114 [id number] Univers 10:40:00 11:06:50 Care [facility] 350.1.13.10 it y [facility] 4.2.7.2.686 Raj as NINO?BLEA [phone] Me [address] MEDICAL OFFICE BUILDING 2021-06-09 2021-06-09 Outpatient R [facility] [id number] Univers 10:40:00 10:40:00 [id number] ity of [facility] 2021-06-09 2021-06-09 Telephone Shaylee Ross 1.2.840.114 [id number] Univers 00:00:00 00:00:00 TIMOTHY 350.1.13.10 it y of [facility] 4.2.7.2.686 Raj as [phone] [address] 2021-06-02 2021-06-02 ambulatory STLMLC STLMLC [id number] Common 00:00:00 00:00:00 [facility] 2021-05-21 2021-05-21 ambulatory STLMLC STLMLC [id number] Common 00:00:00 00:00:00 [facility] 2021-05-16 2021-05-16 ambulatory STLMLC STLMLC [id number] Common 00:00:00 00:00:00 [facility] 2021-05-15 2021-05-15 ambulatory STLMLC STLMLC [id number] Common 00:00:00 00:00:00 [facility] 2021-04-27 2021-04-27 ambulatory STLMLC STLMLC [id number] Common 00:00:00 00:00:00 [facility] 2021-03-30 2021-03-30 [facility] Jori Long 1.2.840.1 [id number] Univers 07:00:00 23:59:00 Encounter 26246.1.1 it y of 3.412.2.7 [place] .3Grazyna791906 MD [facility] 2021-03-30 2021-03-30 [facility] 1.2.840.1 [id number] Univers 07:00:00 23:59:00 Encounter 55048.1.1 it y of 3.412.2.7 [place] .3Grazyna620250 MD [facility] 2021-03-30 2021-03-30 [facility] 1.2.840.1 [id number] Univers 09:30:00 09:45:00 Visit Nicki Staley 38782.1.1 ity of 3.412.2.7 [place] .3.371767 MD [facility] 2021-03-30 2021-03-30 Office Jori Mclaughlin 1.2.840.1 [id number] Univers 09:30:00 09:45:00 Loreto GaoquezBrittanyNicki 56329.1.1 ity of 3.412.2.7 [place] .3.222071 [facility] 2021-03-30 2021-03-30 Valentina Staley, 1.2.840.1 [id number] Univers 00:00:00 00:00:00 Only Nicki 27381.1.1 it y of 3.412.2.7 [place] .3.776099 [facility] 2021-03-30 2021-03-30 Travel 1.2.840.1 1.2.269.520 [id number] Univers 00:00:00 00:00:00 13093.1.1 350.1.13.41 ity of 3.412.2.7 2.[place]7.3.698 [place] .3.131269 084.8 [facility] 2021-03-30 2021-03-30 Jori Nicholson 1.2.840.1 [id number] Univers 00:00:00 00:00:00 Only 62924.1.1 ity of 3.412.2.7 [place] .3.017366 [facility] 2021-03-30 2021-03-30 Valentina Staley, 1.2.840.1 [id number] Univers 00:00:00 00:00:00 Only Nicki 09885.1.1 it y of 3.412.2.7 [place] .3.459821 [facility] 2021-03-30 2021-03-30 Travel 1.2.840.1 1.2.950.450 [id number] Univers 00:00:00 00:00:00 40650.1.1 350.1.13.41 ity of 3.412.2.7 [place]7.3.698 [place] .3.606568 084.8 .8 [facility] 2021-03-30 2021-03-30 Jori Nicholson 1.2.840.1 [id number] Univers 00:00:00 00:00:00 Only 46654.1.1 ity of 3.412.2.7 [place] .3.993598 .8 [facility] 2021-03-16 2021-03-16 Outpatient [facility] [id number] Univers 10:20:00 10:27:28 EARLE shearer [facility] 2021-03-16 2021-03-16 [facility] 1.2.840. 114 [id number] Univers 09:54:29 10:27:28 Care [facility] 350.1.13.10 ity of [place] 4.2.7.2.686 Raj as NINO?BLEA [phone] [address] MEDICAL OFFICE BUILDING 2021-03-16 2021-03-16 Outpatient R [facility] [id number] Univers 10:20:00 10:20:00 [id number] ity of [facility] 2021-03-13 2021-03-13 ambulatory STLMLC STLMLC [id number] Common 00:00:00 00:00:00 [facility] 2021-03-12 2021-03-12 ambulatory STLMLC STLMLC [id number] Common 00:00:00 00:00:00 [facility] 2021-02-20 2021-02-20 Outpatient R [facility] [id number] Univers 09:20:00 09:38:06 EARLE dukes [facility] 2021-02-20 2021-02-20 Urgent [facility] 1.2.840.114 [id number] Univers 09:11:11 09:38:06 Care [facility] 350.1.13.10 i verena marie [place] 4.2.7.2.686 Raj as NINO?BLEA [phone] [place] [address] MEDICAL OFFICE BUILDING 2021-02-20 2021-02-20 Outpatient R [facility] [id number] Univers 09:20:00 09:20:00 [id number] [facility] 2021-01-24 2021-01-24 Outpatient STLMLC STLMLC [id number] Common 00:00:00 00:00:00 [facility] 2021-01-06 2021-01-06 Outpatient STLMLC STLMLC [id number] Common 00:00:00 00:00:00 [facility] 2021-01-05 2021-01-05 Outpatient STLMLC STLMLC [id number] Common 00:00:00 00:00:00 [facility] 2021-01-05 2021-01-05 Outpatient STLMLC STLMLC [id number] Common 00:00:00 00:00:00 [facility] 2020-12-29 2020-12-29 Outpatient STLMLC STLMLC [id number] Common 00:00:00 00:00:00 [facility] 2020-12-28 2020-12-28 Outpatient [facility] [id number] Univers 17:20:00 17:20:00 [id number] [facility] 2020-12-28 2020-12-28 Outpatient STLMLC STLMLC [id number] Common 00:00:00 00:00:00 [facility] 2020-12-26 2020-12-26 Outpatient STLMLC STLMLC [id number] Common 00:00:00 00:00:00 [facility] 2020-12-08 2020-12-08 Telephone Harsh 1.2.840.1 [id number] Methodi 00:00:00 00:00:[address] 3.430.2.7 Hospit a .3.138967 l .8 2020-12-07 2020-12-07 Orders Soco Savage Ly 1.2.840.1 [id number] Methodi 00:00:00 00:00:[address] 3.430.2.7 Hospit a .3.570242 l .8 2020-12-06 2020-12-06 Outpatient R [facility] [id number] Univers 12:30:00 12:30:00 [id number] y [facility] 2020-12-06 2020-12-06 Outpatient [facility] [id number] Univers 12:30:00 12:30:00 INOCENTE [facility] 2020-12-05 2020-12-05 Telephone NATI Mason 1.2.908.525 [id number] Univers 00:00:00 00:00:00 Shilpa AGUIRRE 350.1.13.10 it y of [facility] 4.2.7.2.686 Raj as [phone] [facility] [address] [place] 2020-12-04 2020-12-04 Emergency [facility] 1.2.840.114 [id number] Univers 20:55:00 23:38:00 Truong Cornelius 350.1.13.10 i ty [facility] 4.2.7.2.686 [place] [facility] [id number] [address] 2020-12-04 2020-12-04 Outpatient R [facility] [id number] Univers 20:51:53 20:51:53 TRUONG [facility] 2020-12-04 2020-12-04 Outpatient STLMLC STLMLC [id number] Common 00:00:00 00:00:00 [facility] 2020-12-03 2020-12-03 Urgent Provider, [facility] 1.2.840.114 [id number] Univers 18:59:54 19:19:54 Care Tessa Mendoza [facility] 350.1.13.10 ity [facility] 4.2.7.2.686 Raj as Professio [phone] [address] Office Building One 2020-12-03 2020-12-03 Outpatient [facility] [id number] Univers 18:40:00 18:40:00 [id number] ity [facility] 2020-12-03 2020-12-03 Outpatient R REJI, [facility] [id number] Univers 18:40:00 18:40:00 TESSA cueva [facility] 2020-12-01 2020-12-01 Ambulatory nullFlavo MNA [id number] Memoria 16:30:00 16:30:00 Pre-Reg r Neurology 16 l Ean Lrann 2020-12-01 2020-12-01 Ambulatory nullFlavo MNA [id number] Memoria 16:30:00 16:30:00 Pre-Reg r Neurology 16 l Ean Silva 2020-12-01 2020-12-01 Outpatient MHIE MHIE [id number] Memoria 11:30:00 11:30:00 16 l Ricardo 2020-12-01 2020-12-01 Outpatient ASIF Chung [id number] [id number] 11:30:00 11:30:00 David 16 Marck 2020-10-27 2020-10-27 Office ROMULO Walters 1.2.840.[id number] [place] [address] 11:43:47 12:34:19 Visit Chika AMBULATOR 350.1.13.21 College Y 0.2.7.2.686 of [id number] [facility] 370 e 2020-10-27 2020-10-27 Office ROMULO Walters 1.2.840.114 [id number] 11:43:47 12:34:19 Visit Chika AMBULATOR 350.1.13.21 Y 0.2.7.2.686 [id number] 370 2020-10-18 2020-10-18 [facility] [id number] Common 00:00:00 00:00:00 [facility] 2020-10-13 2020-10-13 Outpatient MHIE MHIE [id number] Memoria 10:30:00 10:30:00 14 l Ricardo 2020-10-13 2020-10-13 Outpatient MHIE MHIE [id number] Memoria 10:30:00 10:30:00 14 matt Silva 2020-10-12 2020-10-13 Outpatient nullFlavo MNA [id number] Memoria 19:15:00 04:59:59 r Neurology 15 matt Silva 2020-10-12 2020-10-13 Outpatient nullFlavo MNA [id number] Memoria 19:15:00 04:59:59 r Neurology 15 matt Silva 2020-10-12 2020-10-12 Outpatient DEDE ChungSCHBINU [facility] [id number] 14:15:00 23:59:59 David 15 Marck 2020-10-12 2020-10-12 Outpatient MHIE IE [id number] Memoria 14:15:00 14:15:00 15 matt Silva 2020-10-11 2020-10-11 Ambulatory nullFlavo MNA [id number] Memoria 18:30:00 18:30:00 Pre-Reg r Neurology 14 matt Silva 2020-10-11 2020-10-11 Outpatient ASIF Chung [facility] [id number] 13:30:00 13:30:00 David 14 Marck 2020-10-11 2020-10-11 Outpatient STLMLC STLC [id number] Common 00:00:00 00:00:00 [facility] 2020-09-08 2020-09-08 Office ROMULO Walters 1.2.840.114 [id number] [facility] 10:12:53 13:09:00 Visit Chika AMBULATOR 350.1.13.21 [place] Y 0.2.7.2.686 of [id number] [facility] юлия 370 e 2020-09-08 2020-09-08 Office ROMULO Walters 1.2.840.114 [id number] 10:12:53 13:09:00 Visit Chika AMBULATOR 350.1.13.21 Suresh Y 0.2.7.2.686 [id number] 2020-09-08 2020-09-08 Outpatient STLMLC STLMLC [id number] Common 00:00:00 00:00:00 [facility] 2020-09-07 2020-09-07 Outpatient STLMLC STLMLC [id number] Common 00:00:00 00:00:00 [facility] 2020-09-01 2020-09-01 Outpatient STLMLC STLMLC [id number] Common 00:00:00 00:00:00 [facility] 2020-08-29 2020-08-30 Outpatient nullFlavo MNA [id number] Memoria 20:45:00 04:59:59 r Neurology 13 l Avery [place] 2020-08-29 2020-08-30 Outpatient nullFlavo MNA [id number] Memoria 20:45:00 04:59:59 r Neurology 13 l Avery [place] 2020-08-29 2020-08-29 Outpatient Juliet, MHMISCHER MHMISCHER [id number] 15:45:00 23:59:59 David 13 Marck 2020-08-29 2020-08-29 Outpatient MHIE FAYEIE [id number] Memoria 15:45:00 15:45:00 13 l Ricardo 2020-08-28 2020-08-28 Outpatient STLMLC STLMLC [id number] Common 00:00:00 00:00:00 [facility] 2020-08-15 2020-08-15 Outpatient STLMLC STLMLC [id number] Common 00:00:00 00:00:00 [facility] 2020-08-08 2020-08-08 Outpatient STLMLC STLMLC [id number] Common 00:00:00 00:00:00 [facility] 2020-08-08 2020-08-08 Outpatient STLMLC STLMLC [id number] Common 00:00:00 00:00:00 [facility] 2020-08-07 2020-08-07 Outpatient STLMLC STLMLC [id number] Common 00:00:00 00:00:00 [facility] 2020-07-26 2020-07-26 Outpatient STLMLC STLMLC [id number] Common 00:00:00 00:00:00 [facility] 2020-07-20 2020-07-20 Outpatient STLMLC STLMLC [id number] Common 00:00:00 00:00:00 [facility] 2020-07-10 2020-07-10 Outpatient STLMLC STLMLC [id number] Common 00:00:00 00:00:00 [facility] 2020-07-10 2020-07-10 Outpatient STLMLC STLMLC [id number] Common 00:00:00 00:00:00 [facility] 2020-07-06 2020-07-06 Outpatient STLMLC STLMLC [id number] Common 00:00:00 00:00:00 [facility] 2020-07-04 2020-07-04 Outpatient STLMLC STLMLC [id number] Common 00:00:00 00:00:00 [facility] 2020-06-30 2020-06-30 Outpatient STLMLC STLMLC [id number] Common 00:00:00 00:00:00 [facility] 2020-06-27 2020-06-27 Outpatient STLMLC STLMLC [id number] Common 00:00:00 00:00:00 [facility] 2020-06-20 2020-06-20 Outpatient STLMLC STLMLC [id number] Common 00:00:00 00:00:00 [facility] 2020-06-19 2020-06-19 Outpatient STLMLC STLMLC [id number] Common 00:00:00 00:00:00 [facility] 2020-06-14 2020-06-16 Outside nullFlavo MNA [id number] Memoria 21:54:19 05:59:59 Medical r Neurology 01 l Records Ean Silva 2020-06-14 2020-06-16 Outside nullFlavo MNA [id number] Memoria 21:54:19 05:59:59 Medical r Neurology 01 l Records Ean Silva 2020-06-14 2020-06-15 Outpatient MHMISCHER MHMISCHER [id number] 15:54:19 23:59:59 2020-06-12 2020-06-12 Outpatient STLMLC STLMLC [id number] Common 00:00:00 00:00:00 [facility] 2020-06-12 2020-06-12 Outpatient STLMLC STLMLC [id number] Common 00:00:00 00:00:00 [facility] 2020-06-10 2020-06-10 Infusion Alhaji, 1.2.840.1 [id number] Methodi 11:41:17 14:59:06 Marques Lobo [address]209.1.[address] 3.430.2.7 Hospit a .3.718753 l .8 2020-06-10 2020-06-10 Travel 1.2.840.1 1.2.368.590 [id number] Methodi 00:00:00 00:00:[address] 3.430.2.7 0.2.7.3.698 Ho spita .3.097473 084.8 l .8 2020-06-10 2020-06-10 Orders Anival, 1.2.840.1 [id number] Methodi 00:00:00 00:00:00 Only Sue 34365.1.[address] 3.430.2.7 Hospit a .3.809128 l .8 2020-06-10 2020-06-10 Telephone Anival, 1.2.840.1 [id number] Methodi 00:00:00 00:00:[address] 3.430.2.7 Hospit a .3.799219 l .8 2020-06-10 2020-06-10 Orders Anival, 1.2.840.1 [id number] Methodi 00:00:00 00:00:00 Only Sue 50019.1.[address] 3.430.2.7 Hospit a .3.740125 l .8 2020-06-09 2020-06-09 Outpatient STLMLC STLMLC [id number] Common 00:00:00 00:00:00 [facility] 2020-06-09 2020-06-09 Outpatient STLMLC STLC [id number] Common 00:00:00 00:00:00 [facility] 2020-06-04 2020-06-07 [facility] Caleb Umana 1.2.840.1 [id number] Methodi 00:56:00 14:30:00 Encounter Kanchan Downey 03267.1.1 47 3 Jen Tsaimatt 3.430.2.7 Hospita .3.724563 l .8 2020-05-31 2020-06-01 Outpatient nullFlavo MNA [id number] Memoria 17:30:00 05:59:59 r Neurology 12 l Avery Ricardo 2020-05-31 2020-06-01 Outpatient nullFlavo MNA [id number] Memoria 17:30:00 05:59:59 r Neurology 12 l Ean Silva 2020-05-31 2020-05-31 Outpatient DEDE ChungSCHER MHMISCHER [id number] 11:30:00 23:59:59 David 12 Marck 2020-05-31 2020-05-31 Ambulatory nullFlavo MNA [id number] Memoria 21:30:00 21:30:00 Pre-Reg r Neurology 11 l Avery Ricardo 2020-05-31 2020-05-31 Ambulatory nullFlavo MNA [id number] Memoria 21:30:00 21:30:00 Pre-Reg r Neurology 11 l Ean Silva 2020-05-31 2020-05-31 Outpatient MHIE MHIE [id number] Memoria 15:30:00 15:30:00 11 matt Ricardo 2020-05-31 2020-05-31 Outpatient DEDE ChungSCHER MHMISCHER [id number] 15:30:00 15:30:00 David 11 Marck 2020-05-31 2020-05-31 Outpatient MHIE MHIE [id number] Memoria 11:30:00 11:30:00 12 matt Ricardo 2020-04-19 2020-04-20 Outpatient nullFlavo MNA [id number] Memoria 20:00:00 05:59:59 r Neurology 10 l Ean Silva 2020-04-19 2020-04-20 Outpatient nullFlavo MNA [id number] Memoria 20:00:00 05:59:59 r Neurology 10 l Ean Silva 2020-04-19 2020-04-19 Outpatient Annettemaxime, MHMISCHER MHMISCHER [id number] 14:00:00 23:59:59 David 10 Marck 2020-04-19 2020-04-19 Outpatient MHIE MHIE [id number] Memoria 14:00:00 14:00:00 10 l [place] 2020-04-18 2020-04-18 Outpatient STLMLC STLMLC [id number] Common 00:00:00 00:00:00 [facility] 2020-04-11 2020-04-12 Outpatient nullFlavo MNA [id number] Memoria 16:00:00 05:59:59 r Neurology 09 l Ean Silva 2020-04-11 2020-04-12 Outpatient nullFlavo MNA [id number] Memoria 16:00:00 05:59:59 r Neurology 09 l Ean Silva 2020-04-11 2020-04-11 Outpatient Juliet, MHMISCHER MHMISCHER [id number] 10:00:00 23:59:59 David 09 Marck 2020-04-11 2020-04-11 Outpatient MHIE MHIE [id number] Memoria 10:00:00 10:00:00 09 matt Silva 2020-03-29 2020-03-30 Outpatient nullFlavo MNA [id number] Memoria 20:00:00 05:59:59 r Neurology 08 l Ean Ricardo 2020-03-29 2020-03-30 Outpatient nullFlavo MNA [id number] Memoria 20:00:00 05:59:59 r Neurology 08 l Ean [place] 2020-03-29 2020-03-29 Outpatient Juliet, MHMISCHER MHMISCHER [id number] 14:00:00 23:59:59 David 08 Marck 2020-03-29 2020-03-29 Outpatient MHIE MHIE [id number] Memoria 14:00:00 14:00:00 08 l Ricardo 2020-03-22 2020-03-22 Outpatient STLMLC STLMLC [id number] Common 00:00:00 00:00:00 [facility] 2020-03-16 2020-03-16 Outpatient STLMLC STLMLC [id number] Common 00:00:00 00:00:00 [facility] 2020-03-08 2020-03-08 Office Isidro Ruby 1.2.840.1 [id number] Methodi 12:36:03 16:19:47 Visit Go 93046.1.[address] 3.430.2.7 Hospit a .3.187938 l .8 2020-03-08 2020-03-08 Travel 1.2.840.1 1.2.725.836 [id number] Methodi 00:00:00 00:00:[address] 3.430.2.7 0.2.7.3.698 Ho spita .3.206323 084.8 l .8 2020-03-07 2020-03-07 Outpatient STLMLC STLMLC [id number] Common 00:00:00 00:00:00 [facility] 2020-02-29 2020-03-01 Outpatient nullFlavo MNA [id number] Memoria 17:15:00 05:59:59 r Neurology 07 l Ean Silva 2020-02-29 2020-03-01 Outpatient nullFlavo MNA [id number] Memoria 17:15:00 05:59:59 r Neurology 07 l Ean Silva 2020-02-29 2020-02-29 Outpatient ASIF Chung [id number] 11:15:00 23:59:59 David 07 Marck 2020-02-29 2020-02-29 Outpatient MHIE FAYEIE [id number] Memoria 11:15:00 11:15:00 07 l Ricardo 2020-02-21 2020-02-21 Outpatient STLMLC STLMLC [id number] Common 00:00:00 00:00:00 [facility] 2020-02-17 2020-02-17 Outpatient STLMLC STLMLC [id number] Common 00:00:00 00:00:00 [facility] 2020-02-12 2020-02-16 [facility] Jasmeet Benedict 1.2.840.1 [id number] Methodi 07:45:00 12:40:00 Encounter Yesi Maldonado 63306.1.[address] 3.430.2.7 Hospit a .3.314499 l .8 2020-02-15 2020-02-15 Ambulatory nullFlavo MNA [id number] Memoria 14:15:00 14:15:00 Pre-Reg r Neurology 06 l Avery [place] 2020-02-15 2020-02-15 Ambulatory nullFlavo MNA [id number] Memoria 14:15:00 14:15:00 Pre-Reg r Neurology 06 l Avery Ricardo 2020-02-15 2020-02-15 Outpatient MHIE LAURENCE [id number] Memoria 09:15:00 09:15:00 06 l Ricardo 2020-02-15 2020-02-15 [id number] 09:15:00 09:15:00 David Natanael Acharya 2020-02-15 2020-02-15 Telephone Isidro Ruby 1.2.840.1 [id number] Methodi 00:00:00 00:00:[address] 3.430.2.7 Hospit a .3.114604 l .8 2020-02-13 2020-02-13 Orders Diogo Blandon 1.2.840.1 [id number] Methodi 00:00:00 00:00:[address] 3.430.2.7 Hospit a .3.948857 l .8 2020-02-11 2020-02-11 Telephone Isidro Ruby 1.2.840.1 [id number] Methodi 00:00:00 00:00:[address] 3.430.2.7 Hospit a .3.347983 l .8 2020-02-09 2020-02-09 Outpatient STLMLC STLMLC [id number] Common 00:00:00 00:00:00 [facility] 2020-02-03 2020-02-08 [facility] Kim Guevara 1.2.840.1 [id number] Methodi 14:30:00 18:40:00 Encounter Karen Pineda 37684.1.[address] Michael Maddoxh 3.430.2.7 Hospita .3.432850 l .8 2020-02-07 2020-02-07 Telephone Ricky, 1.2.840.1 [id number] Methodi 00:00:00 00:00:[address] 3.430.2.7 Hospit a .3.658998 l .8 2020-02-03 2020-02-03 Telephone Ricky, 1.2.840.1 [id number] Methodi 00:00:00 00:00:[address] 3.430.2.7 Hospit a .3.002758 l .8 2020-01-17 2020-01-17 Outpatient STLMLC STLMLC [id number] Common 00:00:00 00:00:00 [facility] 2019-12-14 2019-12-14 [facility] [id number] Common 10:48:00 10:48:[address] [facility] 2019-11-23 2019-11-23 [facility] [id number] Common 09:00:00 09:00:00 [address] [facility] 2019-11-23 2019-11-23 [facility] [id number] Common 08:05:00 08:05:[address] [facility] 2019-10-15 2019-10-15 [facility] [id number] Common 08:44:00 08:44:00 t Studio [address] [facility] 2019-09-07 2019-09-07 [facility] [id number] Common 11:56:00 11:56:[address] [facility] 2019-08-13 2019-08-13 [facility] [id number] Common 10:20:00 10:20:[address] [facility] 2019-08-12 2019-08-12 [facility] [id number] Common 09:49:00 09:49:[address] [facility] 2019-06-15 2019-06-15 [facility] [id number] Common 15:24:00 15:24:[address] [facility] 2019-06-09 2019-06-09 [facility] [id number] Common 08:40:00 08:40:[address] [facility] [address] [facility] 2019-06-03 2019-06-03 [facility] [id number] Common 10:52:00 10:52:[address] [facility] 2019-05-28 2019-05-28 [facility] [id number] Common 16:20:00 16:20:[address] [facility] 2019-05-21 2019-05-23 Outside nullFlavo MNA [id number] Memoria 20:44:00 05:59:59 Medical r Neurology 00 l Records Averyrosa Lrann 2019-05-21 2019-05-23 Outside nullFlavo MNA [id number] Memoria 20:44:00 05:59:59 Medical r Neurology 00 l Records Avery Ricardo 2019-05-21 2019-05-22 Outpatient MHMISCHER MHMISCHER [id number] 14:44:00 23:59:59 00 2019-04-28 2019-04-28 Ambulatory nullFlavo MNA [id number] Memoria 19:00:00 19:00:00 Pre-Reg r Neurology 05 l Avery Ricardo 2019-04-28 2019-04-28 Ambulatory nullFlavo MNA [id number] Memoria 19:00:00 19:00:00 Pre-Reg r Neurology 05 l Avery [place] 2019-04-28 2019-04-28 Outpatient MHIE MHIE [id number] Memoria 13:00:00 13:00:00 05 matt Silva 2019-04-28 2019-04-28 Outpatient FAYE ChungMISCHER MHMISCHER [id number] 13:00:00 13:00:00 Davidgrayson Acharya 2019-01-01 2019-01-01 [facility] [id number] Common 15:32:00 15:32:[address] [facility] 2018-12-31 2018-12-31 [facility] [id number] Common 09:55:00 09:55:[address] [facility] 2018-12-30 2018-12-30 [facility] [id number] Common 13:25:00 13:25:[address] [facility] 2018-12-30 2018-12-30 [facility] [id number] Common 08:00:00 08:00:[address] [facility] 2018-12-29 2018-12-29 [facility] [id number] Common 09:42:00 09:42:[address] [facility] 2018-12-23 2018-12-24 Outpatient nullFlavo MNA [id number] Memoria 18:15:00 04:59:59 r Neurology 04 l Avery Ricardo 2018-12-23 2018-12-24 Outpatient nullFlavo MNA [id number] Memoria 18:15:00 04:59:59 r Neurology 04 l Avery Ricardo 2018-12-23 2018-12-23 Outpatient FAYE ChungCOSCHER MISCHER [id number] 13:15:00 23:59:59 David Catrina Marck 2018-12-23 2018-12-23 Outpatient MHIE MHIE [id number] Memoria 13:15:00 13:15:00 04 matt Ricardo 2018-12-04 2018-12-04 [facility] [id number] Common 16:20:00 16:20:[address] Sp[address] [facility] 2018-11-30 2018-11-30 [facility] [id number] Common 10:08:00 10:08:00 t [facility] 2018-11-27 2018-11-28 Outpatient nullFlavo MNA [id number] Memoria 15:45:00 04:59:59 r Neurology 03 l Avery Ricardo 2018-11-27 2018-11-28 Outpatient nullFlavo MNA [id number] Memoria 15:45:00 04:59:59 r Neurology 03 l Avery Ricardo 2018-11-27 2018-11-27 Outpatient Juliet MHMISCHER MHMISCHER [id number] 10:45:00 23:59:59 David 03 Marck 2018-11-27 2018-11-27 [facility] [id number] Common 13:00:00 13:00:00 t Studio S[facility] 2018-11-27 2018-11-27 Outpatient MHIE MHIE [id number] Memoria 10:45:00 10:45:00 03 matt Ricardo 2018-10-29 2018-10-29 [facility] [id number] Common 10:40:00 10:40:00 Studio [facility] 2018-10-16 2018-10-17 Outpatient nullFlavo MNA [id number] Memoria 14:00:00 04:59:59 r Neurology 02 l Avery Ricardo 2018-10-16 2018-10-17 Outpatient nullFlavo MNA [id number] Memoria 14:00:00 04:59:59 r Neurology 02 l Avery Ricardo 2018-10-16 2018-10-16 Outpatient FAYE ChungMISCHER MHMISCHER [id number] 09:00:00 23:59:59 David Ara Marck 2018-10-16 2018-10-16 Outpatient MHIE MHIE [id number] Memoria 09:00:00 09:00:00 02 matt Silva 2018-10-02 2018-10-03 Outpatient nullFlavo MNA [id number] Memoria 20:00:00 04:59:59 r Neurology 01 l Ean Silva 2018-10-02 2018-10-03 Outpatient nullFlavo MNA [id number] Memoria 20:00:00 04:59:59 r Neurology 01 l Ean Silva 2018-10-02 2018-10-02 Outpatient FAYE ChungMISCHER MISCHER [id number] 15:00:00 23:59:59 David 01 Marck 2018-10-02 2018-10-02 Outpatient MHIE MHIE [id number] Memoria 15:00:00 15:00:00 01 matt Silva 2018-10-01 2018-10-02 Outpatient nullFlavo MNA [id number] Memoria 13:15:00 04:59:59 r Neurology 00 l Ean Silva 2018-10-01 2018-10-02 Outpatient nullFlavo MNA [id number] Memoria 13:15:00 04:59:59 r Neurology 00 l Ean Silva 2018-10-01 2018-10-01 Outpatient FAYE ChungCOSCHER MISCHER [id number] 08:15:00 23:59:59 David 00 Marck 2018-10-01 2018-10-01 Outpatient MHIE MHIE [id number] Memoria 08:15:00 08:15:00 00 matt Silva 2018-09-30 2018-09-30 [facility] [id number] Common 13:00:00 13:00:[address] [facility] 2018-08-31 2018-08-31 [facility] [id number] Common 11:00:00 11:00:[address] [facility] 2018-07-27 2018-07-27 [facility] [id number] Common 13:54:00 13:54:[address] [facility] 2018-07-23 2018-07-23 [facility] [id number] Common 08:53:00 08:53:[address] [facility] 2018-07-23 2018-07-23 [facility] [id number] Common 08:15:00 08:15:[address] [facility] 2018-06-22 2018-06-22 [facility] [id number] Common 10:30:00 10:30:[address] [facility] 2018-05-04 2018-05-04 [facility] [id number] Common 12:00:00 12:00:[address] [facility] 2018-04-02 2018-04-02 [facility] [id number] Common 09:00:00 09:00:[address] [facility] Results Test Description Test Time Test Comments Results Result Comments Source POCT MOLECULAR FLU 2021-06-09 17:13:56 Test Item Value Reference Range Interpretation Comme nts POCT Molecular FluA (test code = 53787-1) Negative Negative POCT Molecular FluB (test code = 98387-5) Negative Negative Lab Interpretation (test code = 81368-0) [facility] [id number] 17:04:30 Test Item Value Reference Range Interpretation Comments POCT Molecular Strep (test code = Negative Negative 93363-3) Lab Interpretation (test code = Normal 78211-7) [facility] Interpretation Antibody Screen Negative 2021-03-31 02:35:52 Test Item Value Reference Range Interpretation Comments TMP Auto Neg At the present ABSC Interp time, patient (test code = plasma shows no JUDE MILLER 7535) evidence of RBC OTONIELDic tated by: alloantibodies. VALERIE FREDERICK,Dictat ed Date/Time: 03.21 20:35 PM COMBUSTION ANALYST Transcribed Henrik e/Time: 03.30.2021 20:3 5 PM CSTElectronical ly Signed By: JUDE FREDERICK, on 03.30.2021 20:3 5 PM [facility] Interpretation Antibody Screen [id number] 02:35:52 Test Item Value Reference Range Interpretation Comments TMP Auto Neg At the present ABSC Interp time, patient (test code = plasma shows no JUDE RENTERIAMike 7535) evidence of RBC OTONIEL,Dic tated by: alloantibodies. VALERIE FREDERICK,Dictat ed Date/Time: 03.21 20:35 PM COMBUSTION ANALYST Transcribed Henrik e/Time: 03.30.2021 20:3 5 PM CSTElectronical ly Signed By: JUDE FREDERICK, on 03.30.2021 20:3 5 PM [facility] [id number] 21:46:12 Test Item Value Reference Range Interpretation Comments ABSC. (test code = 890-4) Negative ABSC [facility] [id number] 21:46:12 Test Item Value Reference Range Interpretation Comments ABSC. (test code = 890-4) Negative ABSC [facility]ABORh2021-12-10 21:46:11 Test Item Value Reference Range Interpretation Comments ABORh. (test code = 882-1) A POS [facility]ABORh2021-12-10 21:46:11 Test Item Value Reference Range Interpretation Comments ABORh. (test code = 882-1) A POS [facility]ressCl[facility] Expiration [id number] 21:45:59 Test Item Value Reference Range Interpretation Comments T & S Expiration (test code = 04/02/2021 5318) [facility] Expiration [id number] 21:45:59 Test Item Value Reference Range Interpretation Comments T & S Expiration (test code = 04/02/2021 5318) [facility] CypressMD t(15;17) PML-LEN Quantitative PCR Collection, [id number] 19:40:53 Test Item Value Reference Range Interpretation Comments Molecular Diagnostics (Received) (test Yes code = 8400) [facility] t(15;17) PML-LEN Quantitative PCR Collection, [id number] 19:40:53 Test Item Value Reference Range Interpretation Comments Molecular Diagnostics (Received) (test Yes code = 8400) [facility] CypressFractionated [id number] 18:26:21 Test Item Value Reference Range Interpretation Comments Bili Total (test 0.4 mg/dL See_Comment Indocyanine Green (ICG) code = 5096) may cause false ly elevated biliru bin results. Total and direct bilirubin must not be measured from s amples containing indo cyanine green. False el evation of total bilirubin can be seen in patient s with IgG concentrations above 28 g/L. [Automated message] The system HCDC generated this result transmitted ref erence range: [...] par ameters are outside rep ortable range [facility] CypressFractionated [id number] 18:26:21 Test Item Value Reference Range Interpretation Comments Bili Total (test 0.4 mg/dL See_Comment Indocyanine Green (ICG) code = 5096) may cause false ly elevated biliru bin results. Total and direct bilirubin must not be measured from s amples containing indo cyanine green. False el evation of total bilirubin can be seen in patient s with IgG concentrations above 28 g/L. [Automated message] The system HCDC generated this result transmitted ref erence range: [...] par ameters are outside rep ortable range [facility] CypressGlucose, [id number] 18:26:19 Test Item Value Reference Range Interpretation Comments Glucose Random (test 62 mg/dL 70-199 L Effecti ve 11/15/15, code = 9360) the glucose reference intervals have been updated ba sed on [place] [employer] guidelines (Standards of Medical Care in Diabetes 2016. Diabetes Care 2016; 39: S13-S22).Fastin g blood glucose:Normal: 70-99 mg/dLImpaired fasting glucose (increased risk for diabetes or pre-diabetes): 100-125 mg/dLDiabetes mellitus: >/=12 6 mg/dL Random bl ood glucose:Normal: 70-199 mg/dLNot e: Random glucose >100 mg/dL is associated with increased risk for diabetes HAL (test code = HAL) Schedule in Fast Track Lab Interpretation Abnormal (test code = 69285-9) [facility]ressGl[facility], [id number] 18:26:19 Test Item Value Reference Range Interpretation Comments Glucose Random (test 62 mg/dL 70-199 L Effecti ve 11/15/15, code = 9360) the glucose reference intervals have been updated ba sed on [place] [employer] guidelines (Standards of Medical Care in Diabetes 2016. Diabetes Care 2016; 39: S13-S22).Fastin g blood glucose:Normal: 70-99 mg/dLImpaired fasting glucose (increased risk for diabetes or pre-diabetes): 100-125 mg/dLDiabetes mellitus: >/=12 6 mg/dL Random bl ood glucose:Normal: 70-199 mg/dLNot e: Random glucose >100 mg/dL is associated with increased risk for diabetes HAL (test code = HAL) Schedule in Fast Track Lab Interpretation Abnormal (test code = 49852-4) [facility] CypressPhosphorus [id number] 18:26:17 Test Item Value Reference Range Interpretation Comments Phosphorus (test code = 3.8 mg/dL 2.5-4.5 6817) HAL (test code = HAL) Schedule in Fast Track [facility]ressPhosphorus [id number] 18:26:17 Test Item Value Reference Range Interpretation Comments Phosphorus (test code = 3.8 mg/dL 2.5-4.5 6817) HAL (test code = HAL) Schedule in Fast Track [facility] CypressGlomerular Filtration Rate 2021-03-30 18:26:16 Test Item Value Reference Range Interpretation Comments eGFR-AA (test 90 See_Comment Normal eGFR: > = 60 code = 8062) mL/min/1.73 m2N ote: [...] GFR mL/min/1.73 m21 Normal or high GFR >=9 02 Mildly decrease d GFR 60-893a Mildly to moderately decr eased GFR 45-593b Mod erately to severely dec reased GFR 30-444 Silvia rely decreased GFR 1 5-295 Kidney failure <15 [Automated mess age] The system which ge nerated this result tra nsmitted reference range : >=60 mL/min/1.73 sq. m. [...] GFR mL/min/1.73 m21 Normal or high GFR >=9 02 Mildly decrease d GFR 60-893a Mildly to moderately decr eased GFR 45-593b Mod erately to severely dec reased GFR 30-444 Silvia rely decreased GFR 1 5-295 Kidney failure <15 [Automated mess age] The system which ge nerated this result tra nsmitted reference range : >=60 mL/min/1.73 sq. m. The reference range was not used to interpr et this result as normal/abnormal . HAL (test code Schedule in Fast = HAL) [facility]omer[facility] Fil[facility] Rate 2021-03-30 18:26:16 Test Item Value Reference Range Interpretation Comments eGFR-AA (test 90 See_Comment Normal eGFR: > = 60 code = 8062) mL/min/1.73 m2N ote: The eGFR is calcula leon using the CKD-E PI equation. The e GFR declines with a ge. eGFR <60 mL/min/1.73 m2 is considered as "decreased". Th is equation should only be used for patien ts 18 and older. Acco rding to the National dney Foundation's Ki dney Disease Outcome Quality Initiative (KDO QI) classification and 2012 Kidney Disease Improving Globa l Outcomes (KDIGO ) Clinical Practi ce Guideline, the stage of CKD should be categorized bas ed on estimated GFR. Stage Description GFR mL/min/1.73 m21 Normal or high GFR >=9 02 Mildly decrease d GFR 60-893a Mildly to moderately decr eased GFR 45-593b Mod erately to severely dec reased GFR 30-444 Silvia rely decreased GFR 1 5-295 Kidney failure <15 [Automated mess age] The system which ge nerated this result tra nsmitted reference range : >=60 mL/min/1.73 sq. m. [...] and older. Acco rding to the National dney Foundation's dney Disease Outcome Quality Initiative (KDO QI) classification and 2012 Kidney Disease Improving Globa l Outcomes (KDIGO ) Clinical Practi ce Guideline, the stage of CKD should be categorized bas ed on estimated GFR. Stage Description GFR mL/min/1.73 m21 Normal or high GFR >=9 02 Mildly decrease d GFR 60-893a Mildly to moderately decr eased GFR 45-593b Mod erately to severely dec reased GFR 30-444 Silvia rely decreased GFR 1 5-295 Kidney failure <15 [Automated mess age] The system which ge nerated this result tra nsmitted reference range : >=60 mL/min/1.73 sq. m. The reference range was not used to interpr et this result as normal/abnormal . HAL (test code Schedule in Fast = HAL) Track [facility]ressLDH2021-12-10 18:26:15 Test Item Value Reference Range Interpretation [...] code Schedule in Fast = HAL) Track [facility]ressLDH2021-12-10 18:26:15 Test Item Value Reference Range Interpretation Comments LDH (test code 162 U/L 135-214 Results great er than = 6111) 1651 U/L may no t be reliable due to matrix effect with ext ended dilution as it exceeds the manufacture r s recommended l imit. Caution should be exercised when interpreting grant ch values and done in conjunction [facility] h clinical contex t. HAL (test code Schedule in Fast = HAL) Track [facility] CypressUric [id number] 18:26:14 Test Item Value Reference Range Interpretation Comments Uric Acid (test code = 3.4 mg/dL 2.4-5.7 7955) HAL (test code = HAL) Schedule in Fast Track [facility] CypressUric [id number] 18:26:14 Test Item Value Reference Range Interpretation Comments Uric Acid (test code = 3.4 mg/dL 2.4-5.7 7955) HAL (test code = HAL) Schedule in Fast Track [facility]ressCalcium Ealav6728-20-70 18:26:13 Test Item Value Reference Range Interpretation Comments Calcium Lvl (test code 8.8 mg/dL 8.4-10.2 = 5258) HAL (test code = HAL) Schedule in Fast Track [facility]ressCalcium [id number] 18:26:13 Test Item Value Reference Range Interpretation Comments Calcium Lvl (test code 8.8 mg/dL 8.4-10.2 = 5258) HAL (test code = HAL) Schedule in Fast Track [facility] CypressTotal [id number] 18:26:12 Test Item Value Reference Range Interpretation Comments Total Protein (test 6.8 g/dL 6.4-8.3 code = 7649) HAL (test code = HAL) Schedule in Fast Track [facility] CypressTotal Tbzmvll6793-74-17 18:26:12 Test Item Value Reference Range Interpretation Comments Total Protein (test 6.8 g/dL 6.4-8.3 code = 7649) HAL (test code = HAL) Schedule in Fast Track [facility] CypressAlbumin [id number] 18:26:11 Test Item Value Reference Range Interpretation Comments Albumin Lvl (test 4.5 See_Comment [Automate d message] code = 4763) The system HCDC generated this result transmit leon reference range : 3.5 - 5.2 gm/dL. Th e reference range was not used to interpret this result as normal/abnormal . HAL (test code = Schedule in Fast HAL) Track [facility] CypressAlbumin [id number] 18:26:11 Test Item Value Reference Range Interpretation Comments Albumin Lvl (test 4.5 See_Comment [Automate d message] code = 4763) The system HCDC generated this result transmit leon reference range : 3.5 - 5.2 gm/dL. Th e reference range was not used to interpret this result as normal/abnormal . HAL (test code = Schedule in Fast HAL) Track [facility] CypressMagnesium Ldugc2859-10-14 18:26:10 Test Item Value Reference Range Interpretation Comments Magnesium (test code = 2.2 mg/dL 1.6-2.6 6359) HAL (test code = HAL) Schedule in Fast Track [facility] CypressMagnesium Wlhkb5551-03-44 18:26:10 Test Item Value Reference Range Interpretation Comments Magnesium (test code = 2.2 mg/dL 1.6-2.6 6359) HAL (test code = HAL) Schedule in Fast Track [facility] CypressElectrolyte [id number] 18:26:09 Test Item Value Reference Range Interpretation [...] CO2 (test code = 27 See_Comment [Automated 5227) message] The sy stem which generated this [...] code = Schedule in Fast HAL) Track [facility] CypressElectrolyte Nuyrf5368-04-96 18:26:09 Test Item Value Reference Range Interpretation [...] CO2 (test code = 27 See_Comment [Automated 0840) message] The sy stem which generated this [...] code = Schedule in Fast HAL) Track [facility] CypressAlkaline Qjqmciplwbx5686-47-71 18:26:08 Test Item Value Reference Range Interpretation Comments Alk Phos (test code = 69 U/L 35-104 4768) HAL (test code = HAL) Schedule in Fast Track [facility] CypressAlkaline Uvzgjpfupuf7314-85-67 18:26:08 Test Item Value Reference Range Interpretation Comments Alk Phos (test code = 69 U/L 35-104 4768) HAL (test code = HAL) Schedule in Fast Track [facility] CypressAlanine Pwgcjgqfxvtlyfrm4716-43-76 18:26:07 Test Item Value Reference Range Interpretation Comments ALT (test code 17 U/L See_Comment [Automated m essage] = 5427) The system whic h generated this result transmitted ref erence range: <=33. Th e reference range was not used to int erpret this result as normal/abnormal . HAL (test code Schedule in Fast = HAL) Track [facility] CypressAlanine Tmduqwhvxznebgqo8409-23-66 18:26:07 Test Item Value Reference Range Interpretation Comments ALT (test code 17 U/L See_Comment [Automated m essage] = 4705) The system HCDC generated this result transmitted ref erence range: <=33. Th e reference range was not used to int erpret this result as normal/abnormal . HAL (test code Schedule in Fast = HAL) Track [facility].Serum Rqcpbjancr1809-28-78 18:26:06 Test Item Value Reference Range Interpretation Comments Creatinine (test code = 0.95 mg/dL 0.51-0.95 5399) HAL (test code = HAL) Schedule in Fast Track [facility].Serum Mbutarpvqr4910-84-29 18:26:06 Test Item Value Reference Range Interpretation Comments Creatinine (test code = 0.95 mg/dL 0.51-0.95 5399) HAL (test code = HAL) Schedule in Fast Track [facility] CypressBUN2021-12-10 18:26:04 Test Item Value Reference Range Interpretation Comments BUN (test code = 5055) 12 mg/dL 6- [facility]ressBUN2021-12-10 18:26:04 Test Item Value Reference Range Interpretation Comments BUN (test code = 5055) 12 mg/dL 6- [facility] CypressDifferential2021-12-10 17:28:47 Test Item Value Reference Range Interpretation Comments Neutrophil % (test 75.3 % 42.0-66.0 H code = 26049-6) Lymphocyte % (test 16.8 % 24.0-44.0 L code = 737-7) Monocyte % (test code 6.3 % 2.0-7.0 = 744-3) Eosinophil % (test 0.8 % 1.0-4.0 L code = 713-8) Basophil % (test code 0.5 % 0.0-1.0 = 707-0) IGRE % (test code = 0.3 % 0.0-0.4 IGRE % c ount 18542-4) includes Metamyelocytes, Myelocytes, and Promyelocytes. Neutrophil Abs (test 7.10 K/uL 1.70-7.30 code = 753-4) Lymphocyte Abs (test 1.59 K/uL 1.00-4.80 code = 732-8) Monocyte Abs (test 0.59 K/uL 0.08-0.70 code = 743-5) Eosinophil Abs (test 0.08 K/uL 0.04-0.40 code = 712-0) Basophil Abs (test 0.05 K/uL 0.00-0.10 code = 705-4) IG Abs (test code = 0.03 K/uL 0.00-0.04 07770-6) HAL (test code = HAL) Schedule in Fast Track Lab Interpretation Abnormal (test code = 38430-0) [facility] CypressDifferential2021-12-10 17:28:47 Test Item Value Reference Range Interpretation Comments Neutrophil % (test 75.3 % 42.0-66.0 H code = 81309-3) Lymphocyte % (test 16.8 % 24.0-44.0 L code = 737-7) Monocyte % (test code 6.3 % 2.0-7.0 = 744-3) Eosinophil % (test 0.8 % 1.0-4.0 L code = 713-8) Basophil % (test code 0.5 % 0.0-1.0 = 707-0) IGRE % (test code = 0.3 % 0.0-0.4 IGRE % c ount 47681-1) includes Metamyelocytes, Myelocytes, and Promyelocytes. Neutrophil Abs (test 7.10 K/uL 1.70-7.30 code = 753-4) Lymphocyte Abs (test 1.59 K/uL 1.00-4.80 code = 732-8) Monocyte Abs (test 0.59 K/uL 0.08-0.70 code = 743-5) Eosinophil Abs (test 0.08 K/uL 0.04-0.40 code = 712-0) Basophil Abs (test 0.05 K/uL 0.00-0.10 code = 705-4) IG Abs (test code = 0.03 K/uL 0.00-0.04 92490-1) HAL (test code = HAL) Schedule in Fast Track Lab Interpretation Abnormal (test code = 75219-1) [facility].[id number] 17:28:40 Test Item Value Reference Range Interpretation Comments WBC (test code = 9.4 K/uL 4.0-11.0 6690-2) RBC (test code = 4.53 See_Comment [Automated 789-8) message] The sy stem which generated this result transmitted reference range : 4.00 - 5.50 M/u L. The reference r gee was not used to interpret this result as normal/abnormal . Hgb (test code = 13.0 See_Comment [Automated 718-7) message] The sy stem which generated this [...] RDW-SD (test code = 40.1 fL 35.1-46.3 72627-6) RDW-CV (test code = 12.3 % 12.0-15.5 [...] Track Lab Interpretation Abnormal (test code = 83146-4) [facility].[id number] 17:28:40 Test Item Value Reference Range Interpretation Comments WBC (test code = 9.4 K/uL 4.0-11.0 6690-2) RBC (test code = 4.53 See_Comment [Automated 789-8) message] The sy stem which generated this result transmitted reference range : 4.00 - 5.50 M/u L. The reference r gee was not used to interpret this result as normal/abnormal . Hgb (test code = 13.0 See_Comment [Automated 718-7) message] The sy stem which generated this [...] RDW-SD (test code = 40.1 fL 35.1-46.3 53371-8) RDW-CV (test code = 12.3 % 12.0-15.5 [...] Track Lab Interpretation Abnormal (test code = 38853-7) [facility] (MOLECULAR) 2021-03-16 16:11:00 Test Item Value Reference Range Interpretation Comments POCT GP A STREP (test negative Negative - code = 61266-1) Negative HAL (test code = HAL) accurate development and interpretation of all internal controls Lab Interpretation Normal (test code = 18824-6) [facility] [id number] 02:55:38 No acute abdominopelvic process. Preliminary Report [...] No cardiomegaly. LIVER: No focal hepatic lesions. ?Normal contour. GALLBLADDER AND BILIARY TREE: [...] Results Inft User - 12/04/2020 9:56 PM CDT EXAM: CT ABDOMEN AND PELVIS WITH CONTRASTHISTORY: Patient has a historyof Lupus, patient children had COVID patientis having [...] LIVER: No focal hepatic lesions. Normal contour.GALLBLADDER AND BILIARY TREE: No biliary ductal dilation. Postcholecystectomy.SPLEEN: No [...] Theurinary bladder is nondistended..VESSELS: Unremarkable.BONES AND SOFT TISSU ES: No suspicious lytic or sclerotic bony lesions.IMPRESSIONNo acute abdominopelvic process.Preliminary Report Dictated by Resident: Nati Snow MD., have reviewed this study and agree with theabove report.[facility] CHE[facility] 1 [id number] 02:48:05 No radiographic evidence of acute cardiopulmonary process. Preliminary Report Dictated by Resident:Nati Mcbride MD., have reviewed this study and agree with theabove report.EXAM: XR CHEST 1 VW COMPARISON: Same day CT abdomen pelvis HISTORY: chest pain, SOB FINDINGS: Lungs: The lungs are clear. and well-expanded No [...] Florence MD., have reviewed this study and agreewith theabove report.[facility] [id number] 02:05:12 Test Item Value Reference Interpretation Comments Range TROPONIN I (test 0.014 ng/mL See_Comment [Automated code = 5400920836) message] The system which generated this result [...] biotin. Lab Interpretation Normal (test code = 39089-5) [facility]. METABOLIC PANEL (52297)2020-12-05 01:53:53 Test Item Value Reference Range Interpretation Comments NA (test code = 139 mmol/L 135-145 6910622227) K (test code = 3.7 mmol/L 3.5-5.0 8889436127) CL (test code = 109 mmol/L 98-108 H 0724016547) CO2 TOTAL (test code = 22 mmol/L 23-31 L 7797603070) AGAP (test code = 2-16 3972457876) BUN (test code = 17 mg/dL 7-23 1934225484) GLUCOSE (test code = 99 mg/dL 70-110 8870827871) CREATININE (test code = 1.14 mg/dL 0.50-1.04 H 4844914774) TOTAL BILI (test code = 0.3 mg/dL 0.1-1.1 8410478385) CALCIUM (test code = 8.7 mg/dL 8.6-10.6 5968244585) T PROTEIN (test code = 7.4 g/dL 6.3-8.2 9286726769) ALBUMIN (test code = 4.7 g/dL 3.5-5.0 1655179364) ALK PHOS (test code = 62 U/L 34-122 9770900536) ALTv (test code = 16 U/L 5-35 1742-6) AST(SGOT) (test code = 18 U/L 13-40 5297393444) eGFR (test code = mL/min/1.73m2 8653968974) HAL (test code = HAL) Association of [...] tests). Lab Interpretation Abnormal (test code = 59051-0) [facility]2021-[facility]-17 01:53:12 Test Item Value Reference Range Interpretation Comments LIPASE (test code = 6350449134) 101 U/L 0-220 Lab Interpretation (test code = Normal 49071-0) [facility]2021-08-17 01:52:17 Test Item Value Reference Range Interpretation Comments APPEARANCE (test code = Cloudy Clear A 4486342083) COLOR (test code = Yellow Yellow 4426674519) PH (test code = 4.8-8.0 1718103407) SP GRAVITY (test code = 1.003-1.030 3556830828) GLU U QUAL (test code = Normal Normal 3915674895) BLOOD (test code = Negative Negative 2993814814) KETONES (test code = Negative Negative 0999149228) PROTEIN (test code = Negative Negative 2887-8) UROBILIN (test code = 4.0 mg/dL Normal A 3723101274) BILIRUBIN (test code = Negative Negative 8193588150) NITRITE (test code = Negative Negative 2889433650) LEUK REKHA (test code = Negative Negative 6450440618) RBC/HPF (test code = See_Comment [Autom ated message] 1775959570) The system HCDC generated this result transmit leon reference range : 0 - 3 HPF. The refe rence range was not u sed to interpret th is result as normal/abnormal . WBC/HPF (test code = <1 See_Comment [Autom ated message] 0098775756) The system HCDC generated this result transmit leon reference range : 0 - 5 HPF. The refe rence range was not u sed to interpret th is result as normal/abnormal . BACTERIA (test code = Many Negative A 1666113139) MUCOUS (test code = Slight Negative LPF A 1635089059) AMORPHOUS (test code = Moderate Rare HPF A 8899463291) SQ EPITH (test code = HPF 8114158653) Lab Interpretation (test Abnormal code = 91067-5) [facility] WITH [id number] 01:42:11 Test Item Value Reference Range Interpretation Comments WBC (test code = See_Comment [Automated 90-2) message] The sy stem which generated this [...] RDW-SD (test code = 41.1 fL 39.0-49.9 91699-3) RDW-CV (test code = 13.5 % 12.0-15.5 788-0) PLT (test code = See_Comment [Automated 777-3) message] The sy stem which generated this result transmitted reference range : 166 - 358 10*3/ ?L. The reference r gee was not used to interpret this result as normal/abnormal . MPV (test code = 12.3 fL 9.5-12.9 17446-9) NRBC/100 WBC (test See_Comment [Automat ed code = 8049661852) message] The system which generated this result transmitted reference range : 0.0 - 10.0 /100 WBCs. The refer ence range was not u sed to interpret th is result as normal/abnormal . NRBC x10^3 (test code <0.01 See_Comment [Auto mated = 3705887756) message] The s ystem which generated this result transmitted reference range : 10*3/?L. The reference range was not used to interpret this result as normal/abnormal . GRAN MAT (NEUT) % 54.5 % (test code = 770-8) IMM GRAN % (test code 0.40 % = 7828043449) LYMPH % (test code = 33.6 % 736-9) MONO % (test code = 8.5 % 5905-5) EOS % (test code = 2.4 % 713-8) BASO % (test code = 0.6 % 706-2) GRAN MAT x10^3(ANC) 2.69 10*3/uL 1.88-7.09 (test code = 6751175849) IMM GRAN x10^3 (test <0.03 0.00-0.06 code = 4707568004) LYMPH x10^3 (test code 1.66 10*3/uL 1.32-3.29 = 731-0) MONO x10^3 (test code 0.42 10*3/uL 0.33-0.92 = 742-7) EOS x10^3 (test code = 0.12 10*3/uL 0.03-0.39 711-2) BASO x10^3 (test code 0.03 10*3/uL 0.01-0.07 = 704-7) Lab Interpretation Abnormal (test code = 37313-8) [facility] [id number] 01:31:00 Test Item Value Reference Range Interpretation Comments POCT PREG (test code = 1605) negative On board controls acceptable with present C Line (test code = 3574) POCT PREG LOT # (test code = 3575) [id number] POCT PREG TEST DATE (test 04/20/22 code = 3576) Lab Interpretation (test code = Normal 52083-8) [facility] GRP A STREP (MOLECULAR)2020-12-04 00:43:00 Test Item Value Reference Range Interpretation Comments POCT GP A STREP (test code = Negative Negative - Negative 69554-6) Lab Interpretation (test code = Normal 18734-8) [facility] GRP A STREP (MOLECULAR)2020-12-04 00:43:00 Test Item Value Reference Range Interpretation Comments POCT GP A STREP (test code = Negative Negative - Negative 45830-1) Lab Interpretation (test code = Normal 74547-9) [facility] W [id number] 23:13:41EXAMINATION: MRI THORACIC SPINE W CONTRAST CLINICAL [...] endplate, moderate disc height loss, and shallow broad- based left paracentral disc protrusion without significant spinal canal stenosis. No significant neural foraminal stenosis. Visualized paraspinal soft tissues are unremarkable. IMPRESSION: Stable thoracic spinal MRI with unremarkable spinal cord, no evidence of demyelinating lesion. Stable mild spondylosis atT8-9 without significant spinal canal or neural foraminal stenosis. [id number] Interface, Radiology Results 06/06/2020 5:16 PM CST EXAMINATION: MRI THORACIC SPINE W CONTRASTCLINICAL HISTORY: Evaluation of right sided hemiparesishemisensory lossCOMPARISON: Thoracic spinal MRI on 02/03/2020, concurrent cervical and lumbar spinalMRIs on 06/06/2020.TECHNIQUE: Postcontrast thoracic spine MRI after intravenous contrast administration, MS protocol.FINDINGS:The spinal cord is normal in signal with no abnormal enhancement.Normal thoracic kyphosis and alignment. Vertebral body heights are preserved. Bone marrow signal is unremarkablewith no evidence of acute fracture or suspicious marrow-replacing lesion. T8-9: Again noted is chronic Schmorl's node along T8 inferior endplate, moderate disc height loss, and shallow broad- based leftparacentral disc protrusion without significant spinal canal stenosis.No significant neural foraminal stenosis.Visualized paraspinal soft tissues are unremarkable.IMPRESSION:Stable thoracic spinal MRI with unremarkable spinal cord, no evidence of demyelinating lesion. Stable mild spondylosis at T8- 9 without significant spinal canal or neural foraminal stenosis.[id number] [facility] Thoracic Spine W [id number] 23:13:41EXAMINATION: MRI THORACIC SPINE W CONTRAST CLINICAL [...] evidence of demyelinating lesion. Stable mild spondylosis atT8-9 without significant spinal canal or neural foraminal stenosis. [id number] Interface, Radiology Results - 06/06/2020 5:16 PM CST EXAMINATION: MRI THORACIC SPINE W CONTRASTCLINICAL HISTORY: Evaluation of right sided hemiparesishemisensory lossCOMPARISON: Thoracic spinal MRI on 02/03/2020, concurrent cervical and lumbar spinalMRIs on 06/06/2020.TECHNIQUE: Postcontrast thoracic spine MRI after intravenous contrast administration, MS protocol.FINDINGS:The spinal cord is normal in signal with no abnormal enhancement.Normal thoracic kyphosis and alignment. Vertebral body heights are preserved. Bone marrow signal is unremarkablewith no evidence of acute fracture or suspicious marrow-replacing lesion. T8-9: Again noted is chronic Schmorl's node along T8 inferior endplate, moderate disc height loss, and shallow broad-based leftparacentral disc protrusion without significant spinal canal stenosis.No significant neural foraminal stenosis.Visualized paraspinal soft tissues are unremarkable.IMPRESSION:Stable thoracic spinal MRI with unremarkable spinal cord, no evidence of demyelinating lesion. Stable mild spondylosis at T8-9 wi thout significant spinal canal or neural foraminal stenosis.[id number] Cervical Spine W [id number] 23:08:17EXAMINATION: MRI CERVICAL SPINE W CONTRAST CLINICAL [...] disc spaces demonstrate the following: C1-C2: The atlantoaxialinterval is intact with no significant disease or stenosis. C2-C3: No significant posterior disc disease, spinal canal or neural foraminal stenosis. C3-C4: No significant posterior disc disease, spinalcanal or neural foraminal stenosis. C4-C5: No significant [...] spine abnormality identified. No enhancing lesion identified. [facility]-[id number] Interface, Radiology Results Incoming - 06/06/2020 5:11 PM CST EXAMINATION: MRI CERVICAL SPINE W CONTRASTCLINICAL HISTORY: Right sided hemiparesis hemisensory lossCOMPARISON: NoneTECHNIQUE: Multiplanar multisequence pre and post contrast enhanced examination was performed of the cervical spine.FINDINGS: Vertebral body heights aremaintained. The cervicomedullary junction is unremarkable. No cord signal abnormality identified. Nofocal marrow lesions. No masses are present in [...] foraminal stenosis.C5-C6: No significant posterior disc disease, spinalcanal or neural foraminal stenosis.C6-C7: No significant posterior disc disease, spinal canal or neural foraminal stenosis.C7-T1: No significant posterior disc disease, spinal canal or neural foraminalstenosis.No significant posterior disc disease, spinal canal or neural foraminal stenosis at other visualized levels.IMPRESSION: No significant cervical spine abnormality identified. No enhancing lesion identified.[id number] Regional Medical Center Cervical Spine W Contrast 2020-06-06 23:08:17EXAMINATION: MRI [...] disc spaces demonstrate the following: C1-C2: The atlantoaxialinterval is intact with no significant disease or stenosis. C2-C3: No significant posterior disc disease, spinal canal or neural foraminal stenosis. C3-C4: No significant posterior disc disease, spinalcanal or neural foraminal stenosis. C4-C5: No significant [...] spine abnormality identified. No enhancing lesion identified. [id number]-2U [id number] Interface, Radiology Results 06/06/2020 5:11 PM CST EXAMINATION: MRI CERVICAL SPINE W CONTRASTCLINICAL HISTORY: Right sided hemiparesis hemisensory lossCOMPARISON: NoneTECHNIQUE: Multiplanar multisequence pre and post contrast enhanced examination was performed of the cervical spine.FINDINGS: Vertebral body heights aremaintained. The cervicomedullary junction is unremarkable. No cord signal abnormality identified. Nofocal marrow lesions. No masses are present in [...] foraminal stenosis.C5-C6: No significant posterior disc disease, spinalcanal or neural foraminal stenosis.C6-C7: No significant posterior disc disease, spinal canal or neural foraminal stenosis.C7-T1: No significant posterior disc disease, spinal canal or neural foraminalstenosis.No significant posterior disc disease, spinal canal or neural foraminal stenosis at other visualized levels.IMPRESSION: No significant cervical spine abnormality identified. No enhancing lesion identified.[facility]-[id number] Regional Medical Center Brain W Wo [id number] 22:41:58EXAMINATION: MRI BRAIN W WO CONTRAST CLINICAL HISTORY: RIght sided hemiparesis hemisensory loss COMPARISON: Orbit and brain MRI on 02/03/2020. TECHNIQUE: Brain MRI without and with intravenous gadolinium contrast, MS protocol. FINDINGS: The brain appears stable, normal in signal and configuration withno evidence of acute infarction, hemorrhage, mass lesion, or abnormal enhancement. Ventricles, sulci, and cisterns are stable and normal in size and configuration. No extra-axial fluid collection. Flowvoids of the major intracranial vessels are intact. Mucous retention cysts are again noted along thefloor of the right maxillary sinus. Mastoid air cells are clear. Bones, orbits, and soft tissues areunremarkable. IMPRESSION: Unremarkable brain MRI with no evidence of demyelinating lesion or other acute intracranial abnormality. [id number] Interface, Radiology Results 06/06/2020 4:45 PM CST EXAMINATION: MRI BRAIN W WO CONTRASTCLINICAL HISTORY: RIght sided hemiparesis hemisensory lossCOMPARISON: Orbit and brain MRI on 020.TECHNIQUE: Brain MRI without and with intravenous gadolinium [...] of demyelinating lesion or other acute intracranial abnormality.[id number] W Wo [id number] 22:41:58EXAMINATION: MRI BRAIN W WO CONTRAST CLINICAL HISTORY: RIght sided hemiparesis hemisensory loss COMPARISON: Orbit and brain MRI on 02/03/2020. TECHNIQUE: Brain MRI without and with intravenous gadolinium contrast, MS protocol. FINDINGS: The brain appears stable, normal in signal and configuration withno evidence of acute infarction, hemorrhage, mass lesion, or abnormal enhancement. Ventricles, sulci, and cisterns are stable and normal in size and configuration. No extra-axial fluid collection. Flowvoids of the major intracranial vessels are intact. Mucous retention cysts are again noted along thefloor of the right maxillary sinus. Mastoid air cells are clear. Bones, orbits, and soft tissues areunremarkable. IMPRESSION: Unremarkable brain MRI with no evidence of demyelinating lesion or other acute intracranial abnormality. [id number] Interface, Radiology Results 06/06/2020 4:45 PM CST EXAMINATION: MRI BRAIN W WO CONTRASTCLINICAL HISTORY: RIght sided hemiparesis hemisensory lossCOMPARISON: Orbit and brain MRI on 020.TECHNIQUE: Brain MRI without and with intravenous gadolinium [...] other acute intracranial abnormality.[id number]CT [facility] Wo Zjumeejw9224-09-01 18:08:03 EXAMINATION: CT CHEST WO CONTRAST HISTORY: COVID-19 [...] upper lobe, as well as base. No co nsolidative pulmonary opacity. No suspicious pulmonary nodule. Pleural: No effusion or pneumothorax.Cardiovascular: Heart size normal. No pericardial effusion. No appreciable calcific coronary artery disease. Mediastinum/Nodes: No thoracic lymphadenopathy. Musculoskeletal: No acute or aggressive-appearing osseous lesion. Upper abdomen: Cholecystectomy clips. Upper limit of normal-size spleen. IMPRESSION: 1.Few faint peripheral groundglass opacities in both lower lobes. Together with the positive lab findings, this is compatible with mild Covid pneumonia. [facility]-[id number] Interface, Radiology Results 06/06/2020 12:11 PM CST [...] findings, this is compatible with mild Covid pneumonia.[facility]-[id number] HospitalCT Chest Wo [id number] 18:08:03EXAMINATION: CT CHEST WO CONTRAST HISTORY: COVID-19 [...] upper lobe, as well as base. No co nsolidative pulmonary opacity. No suspicious pulmonary nodule. Pleural: No effusion or pneumothorax.Cardiovascular: Heart size normal. No pericardial effusion. No appreciable calcific coronary artery disease. Mediastinum/Nodes: No thoracic lymphadenopathy. Musculoskeletal: No acute or aggressive-appearing osseous lesion. Upper abdomen: Cholecystectomy clips. Upper limit of normal-size spleen. IMPRESSION: 1.Few faint peripheral groundglass opacities in both lower lobes. Together with the positive lab findings, this is compatible with mild Covid pneumonia. [facility]-[id number] Interface, Radiology Results 06/06/2020 12:11 PM CST [...] findings, this is compatible with mild Covid pneumonia.[facility]-[id number] HospitalUrine [id number] 18:51:05 Test Item Value Reference Range Interpretation Comments Urine culture (test SEE COMMENT Bacteriu kieran screen code = 4583931) negative. [facility] [id number] 18:51:05 Test Item Value Reference Range Interpretation Comments Urine culture (test SEE COMMENT Bacteriu kieran screen code = 3779746) negative. [facility] [id number] 18:51:05 Test Item Value Reference Range Interpretation Comments Urine culture (test SEE COMMENT Bacteriu kieran screen code = 9937671) negative. [facility] RNA [Presence] in Respiratory specimen by SARI with probe [id number] 18:31:32 Test Item Value Reference Range Interpretation Comments SARS-CoV-2 (COVID-19) RNA [Presence] Detected Not-Detected in Respiratory specimen by SARI with probe detection (test code = 76045-7) OCT, Optic Nerve - [id number] 19:34:42Isidro Ruby MD - 05/24/2020 5:54 PM CST [facility] - [id number] 19:34:42Isidro Ruby MD - 05/24/2020 5:54 PM CST [facility] HospitalAutomated Visual Field, Extended - [id number] 19:34:39Isidro Ruby MD - 05/24/2020 5:54 PM CST [facility] HospitalAutomated Visual Field, Extended - OU 2020-03-08 19:34:39Isidro Ruby MD - 05/24/2020 5:54 PM CST [facility]3 in 1 Commode 2020-02-16 16:07:52 Test Item Value Reference Range Interpretation Comments SUPPLIER NAME (test XMED Oxygen and code = 6415) Medical SUPPLIER PHONE (test [phone] code = 6416) ORDER STATUS (test code Delivery Successful = 6417) DELIVERY NOTE (test code = 6419) REQUESTED DELIVEY DATE 02/16/2020 (test code = 6420) ITEM DESCRIPTION (test 3 in 1 Commode Qty : 1 code = 6423) ACTUAL DELIVERY DATE 02/16/2020 (test code = 6422) [facility] in 1 [id number] 16:07:52 Test Item Value Reference Range Interpretation Comments SUPPLIER NAME (test XMED Oxygen and code = 6415) Medical SUPPLIER PHONE (test [phone] code = 6416) ORDER STATUS (test code Delivery Successful = 6417) DELIVERY NOTE (test code = 6419) REQUESTED DELIVEY DATE 02/16/2020 (test code = 6420) ITEM DESCRIPTION (test 3 in 1 Commode Qty : 1 code = 6423) ACTUAL DELIVERY DATE 02/16/2020 (test code = 6422) [facility] [id number] 18:23:11Electromyogram and NCS ReportECU [facility] Neurological [address],[place], [place]T: F : Patient: ArguetaSnow box Physician: Nicolasa Walters MDAge: 34 Test Date: 02/15/20ex: FemaleHeight: 66 inchesWeight: 220 lbsRef. M.D.: Fior Batista, MDDob: 86 History/Comments:The patient is a 34 YO female who was referred to the EMG lab for right arm and leg numbness and weakness. Temp-RLE: 28.2 LLE: 30.1RUE: 35.4Motor Nerve Study Right Median NerveRec Site: APB Lat (ms) Amp (mV) Area (mVms) Dist (mm) C.V. (m/s)Stim SiteWrist 3.6 10.4 30.1 Elbow 7.5 9.7 29.1 213 54.4 Motor NerveStudy Right Ulnar NerveRec Site: ADM Lat (ms) Amp (mV) Area (mVms) Dist (mm) C.V. (m/s)Stim SiteWrist 2.3 9.3 17.5 B.Elbow 4.7 8.1 [...] Site: Wrist Pk Lat (ms) Amp (uV)Stim Xyzb5mb dig 2.5 21.0 Sensory Nerve Study Right [...] ms M wave 7.33H wave 33.83 EMG StudySignific antly limited due to patient's poor-none efforts in muscle activation. Name Ins Act Fibs PSW FascicsPolyph MU Amp MU Dur Config Pattern RecruitR. [...] Tibial Nerve Left Tibial Nerve Right Tibial NerveThe Hospitals of [facility] [id number] 18:23:11 Electromyogram and NCS ReportECU HEALTH ED[facility]ECOM[facility] Neurological [id number],[address],[id number]: F: Patient: Snow Argueta Physician: Nicolasa Walters MDAge: 34 Test Date: 02/15/20ex: FemaleHe ight: 66 inchesWeight: 220 lbsRef. M.D.: Fior Batista, MDDob: 86 History/Comments:The patient is a 34 YO female who was referred to the EMG lab for right arm and leg numbness and weakness. Temp-RLE: 28.2 LLE: 30.1RUE: 35.4Motor Nerve Study Right Median NerveRec Site: APB Lat (ms) Amp (mV) Area (mVms) Dist (mm) C.V. (m/s)Stim SiteWrist 3.6 10.4 30.1 Elbow 7.5 9.7 29.1 213 54.4 Motor Nerve Study Right Ulnar NerveRec Site: ADM Lat (ms) Amp (mV) Area (mVms) Dist (mm) C.V. (m/s)Stim SiteWrist2.3 9.3 17.5 B.Elbow 4.7 8.1 19.4 140 60.0 A.Elbow 7.3 7.8 18.7 138 51.8 Motor Nerve Study Left Peroneal NerveRec Site: EDB Lat (ms) Amp (mV) Area (mVms) Dist (mm) C.V. (m/s)Stim SiteAnkle 3.8 5.3 14.1Fib.Head 11.8 5.0 14.4 354 44.3 Pop.Fos. 13.7 4.9 14.1 80 41.7 Motor Nerve Study Right Peroneal NerveRec Site: EDB Lat (ms) Amp (mV) Area (mVms) Dist (mm) C.V. (m/s)Stim SiteAnkle 5.2 5.7 18.1 Fib.Head13.8 5.2 17.3 355 41.4 Pop.Fos. 15.3 5.2 16.9 70 46.7 Motor Nerve Study Left Tibial NerveRec Site: AH Lat (ms) Amp (mV) Area (mVms) Dist (mm) C.V. (m/s)Stim SiteAnkle 4.4 13.8 31.1 Pop.Fos. 13.5 11.5 30.8 370 40.7 Motor Nerve Study Right Tibial NerveRec Site: AH Lat (ms) Amp (mV) Area (mVms) Dist (mm)C.V. (m/s)Stim SiteAnkle 5.1 8.6 30.7 Pop.Fos. 14.9 7.7 31.9 375 41.2 Sensory Nerve Study Right Median NerveRec Site: Wrist Pk Lat (ms) Amp (uV)Stim SiteThumb 2.8 26.0 Sensory Nerve Study Right Ulnar NerveRec Site: Wrist Pk Lat (ms) Amp (uV)Stim Emoo7og dig 2.5 21.0 Sensory Nerve Study Right [...] ms F wave 55.67F-M NRH Reflex Study LeftTibial NerveRec Site: Soleus LatencyStim Site: Pop.Fos. ms M wave 6.83H wave 31.00 H Reflex Study Right Tibial NerveRec Site: Soleus LatencyStim Site: Pop.Fos. ms M wave 7.33H wave 33.83 EMG StudySignificantly limited due to patient's poor-none efforts in muscle activation. Name Ins Act Fibs [...] Deltoid norm none none none Notes: POOR EFFORTSR.Gluteus Med. norm none none none none norm norm norm norm normR. Peroneus Ln. norm none none none Notes: NO EFFORTS Conclusion:There is no electrophysiologic evidence of neuropathy or myopathy. Right Median Nerve Right Ulnar Nerve Left Peroneal Nerve Right Peroneal Nerve Left Tibial Nerve Right TibialNerve Right Median Nerve Right Ulnar Nerve Right Radial Nerve Left Sural Nerve Right Sural Nerve Right [place] Nerve Right Median Nerve Right Ulnar Nerve Left Peroneal Nerve Right Peroneal Nerve Left Tibial Nerve Right Tibial Nerve Left Tibial Nerve Right Tibial NerveChristianity HospitalVisual evoked [id number] 15:07:24 PATTERN REVERSAL VISUAL EVOKED POTENTIAL REPORT Patient Name: Snow Argueta Date of : 1985 G amando: female Date of Procedure: 02/14/2020 IndicationVision loss FindingsPattern reversal visual evoked potentials were obtained following independent left and right full field monocular stimulation. [id number] absolute latencies were 99.8 msec and 102.6 msec following independent left and right eye stimulation. All interpeak latencies and waveform morphologies were normal. ImpressionThis is a normal study. ICD10 Code/Diagnosis: P10LlsithiskMemorial Hermann Pearland Hospital Visual evoked [id number] 15:07:24 PATTERN REVERSAL VISUAL EVOKED POTENTIAL REPORT Patient Name: Snow Argueta Date of : 1985 Gender: female Date of Procedure: 02/14/2020 IndicationVision loss FindingsPattern reversal visual evoked potentials were obtained following independent left and right full field monocular stimulation. [id number] absolute latencies were 99.8 msec and 102.6 msec following independent left and right eye stimulation. All interpeak latencies and waveform morphologies were normal. ImpressionThis is a normal study. ICD10 Code/Diagnosis: B73Yzqzrndmm [facility] Lumbar Spine W Wo [id number] 16:16:59EXAMINATION: MRI LUMBAR SPINE W WO CONTRAST [...] the visualized soft tissues demonstrates no mass, adenopathyor aneurysm. Axial images through the disc spaces demonstrate the following: L1-L2: No significant posterior disc disease, spinal canal, subarticular zone, or neural foraminal stenosis. L2-L3: No signif icant posterior disc disease, spinal canal, subarticular zone, or neural foraminal stenosis. L3-L4: No significant posterior disc disease, spinal canal, subarticular zone, or neural foraminal stenosis.Mild facet arthrosis is noted bilaterally. L4-L5: Mild right neural foraminal stenosis secondary to foraminal disc protrusion measuring 3 x 9 mm in axial dimensions. There is questionable contact of the exiting L4 nerve root on the right, image 11 of series 6. No significant posterior disc disease, spinal canal, subarticular zone, or left neural foraminal stenosis. Mild to moderate facet arthrosis isnoted bilaterally. L5-S1: No significant posterior disc disease, spinal canal, subarticular zone, orneural foraminal stenosis. Moderate facet arthrosis is noted bilaterally. Evaluation of other visualized levels demonstrates no significant posterior disc disease, spinal canal, subarticular zone, or neural foraminal stenosis. IMPRESSION: Mild right neural foraminal stenosis at L4-L5 secondary to foraminal disc protrusion, including questionable contact of the exiting L4 nerve root on the right. Recommend correlation to radiculopathy distribution. [facility]- [id number] Interface, Radiology Results Incoming - 02/13/2020 11:20 AM CDT EXAMINATION:MRI LUMBAR SPINE W WO CONTRASTCLINICAL HISTORY: New lower extremity weaknessCOMPARISON: NoneTECHNIQUE: Multiplanar multisequence nonenhanced and contrast enhanced MRI examination was performed of the lumbar spine.FINDINGS:There are 5 non-rib bearing lumbar type vertebrae, the lowest labeled L5 in thisreport as identified by the lumbosacral angle and iliolumbar ligaments. The alignment of the lumbar spine is within normal limits. No subluxation. No abnormal marrow edema or enhancement identified. Nosuspicious osseous lesions. No degenerative marrow signal abnormality is present. Vertebral body andintervertebral disc heights are preserved.Conus medullaris terminates appropriately at the level level. No abnormal T2 hyperintense intramedullary signal or enhancement identified. The cauda equina nerve roots are symmetric and normal in appearance. No abnormal thickening, clumping or enhancement ident ified.Evaluation of the visualized soft tissues demonstrates no mass, adenopathy or aneurysm. Axial images through the disc spaces demonstrate the following:L1- L2: No significant posterior disc disease, spinal canal, [...] No significant posterior disc disease, spinal canal, subarticularzone, or left neural foraminal stenosis. Mild to [...] on the right. Recommend correlation to radiculopathy distribution.[facility]-[id number] Regional Medical Center Lumbar Spine W Wo [id number] 16:16:59EXAMINATION: MRI LUMBAR SPINE W WO CONTRAST [...] the visualized soft tissues demonstrates no mass, adenopathyor aneurysm. Axial images through the disc spaces demonstrate the following: L1-L2: No significant posterior disc disease, spinal canal, subarticular zone, or neural foraminal stenosis. L2-L3: No signif icant posterior disc disease, spinal canal, subarticular zone, or neural foraminal stenosis. L3-L4: No significant posterior disc disease, spinal canal, subarticular zone, or neural foraminal stenosis.Mild facet arthrosis is noted bilaterally. L4-L5: Mild right neural foraminal stenosis secondary to foraminal disc protrusion measuring 3 x 9 mm in axial dimensions. There is questionable contact of the exiting L4 nerve root on the right, image 11 of series 6. No significant posterior disc disease, spinal canal, subarticular zone, or left neural foraminal stenosis. Mild to moderate facet arthrosis isnoted bilaterally. L5-S1: No significant posterior disc disease, spinal canal, subarticular zone, orneural foraminal stenosis. Moderate facet arthrosis is noted bilaterally. Evaluation of other visualized levels demonstrates no significant posterior disc disease, spinal canal, subarticular zone, or neural foraminal stenosis. IMPRESSION: Mild right neural foraminal stenosis at L4-L5 secondary to foraminal disc protrusion, including questionable contact of the exiting L4 nerve root on the right. Recommend correlation to radiculopathy distribution. [facility]- [id number] Interface, Radiology Results Incoming - 02/13/2020 11:20 AM CDT EXAMINATION:MRI LUMBAR SPINE W WO CONTRASTCLINICAL HISTORY: New lower extremity weaknessCOMPARISON: NoneTECHNIQUE: Multiplanar multisequence nonenhanced and contrast enhanced MRI examination was performed of the lumbar spine.FINDINGS:There are 5 non-rib bearing lumbar type vertebrae, the lowest labeled L5 in thisreport as identified by the lumbosacral angle and iliolumbar ligaments. The alignment of the lumbar spine is within normal limits. No subluxation. No abnormal marrow edema or enhancement identified. Nosuspicious osseous lesions. No degenerative marrow signal abnormality is present. Vertebral body andintervertebral disc heights are preserved.Conus medullaris terminates appropriately at the level level. No abnormal T2 hyperintense intramedullary signal or enhancement identified. The cauda equina nerve roots are symmetric and normal in appearance. No abnormal thickening, clumping or enhancement ident ified.Evaluation of the visualized soft tissues demonstrates no mass, adenopathy or aneurysm. Axial images through the disc spaces demonstrate the following:L1- L2: No significant posterior disc disease, spinal canal, [...] No significant posterior disc disease, spinal canal, subarticularzone, or left neural foraminal stenosis. Mild to [...] on the right. Recommend correlation to radiculopathy distribution.[facility]-[id number] Regional Medical Center Brain Venogram 2020-02-13 14:57:03EXAM: MRI BRAIN VENOGRAM CLINICAL HISTORY: Headache chronic normal neuro exam TECHNIQUE: Head MR venogram using 2D pbgi-bv-mnjnzm technique with multi-planar MIP and 3D reconstruction. [...] neuro examTECHNIQUE: Head MR venogram using 2D cfzn-me-qswoba technique with multi- planar MIP and 3D reconstruction.COMPARISON: MRI brain, 02/03/2020FINDINGS:The superior sagittal sinus, transverse and sigmoid sinuses as well as the straight sinus are all patent with no evidence of dural venous sinus thrombosis. The visualized internal cerebral veins, basal veins of Rosenthaland the vein of [place] are all patent. The major cortical veins are patent.IMPRESSION:1.Unremarkable head MR venogram with no definite evidence of dural sinus venous thrombosis.[id number] Brain Venogram 2020-02-13 14:57:03EXAM: MRI BRAIN VENOGRAM CLINICAL HISTORY: Headache chronic normal neuro exam TECHNIQUE: Head MR venogram using 2D lbaj-ia-idtozu technique with multi-planar MIP and 3D reconstruction. [...] neuro examTECHNIQUE: Head MR venogram using 2D zcyo-cz-korccs technique with multi- planar MIP and 3D reconstruction.COMPARISON: MRI brain, 02/03/2020FINDINGS:The superior sagittal sinus, transverse and sigmoid sinuses as well as the straight sinus are all patent with no evidence of dural venous sinus thrombosis. The visualized internal cerebral veins, basal veins of Rosenthaland the vein of [place] are all patent. The major cortical veins are patent.IMPRESSION:1.Unremarkable head MR venogram with no definite evidence of dural sinus venous thrombosis.[id number]_PS01[facility] HospitalVENIPFORMERLY [facility],DX [place] [id number] 15:39:11CFamilia hickey RN 02/08/2020 10:40 AMMidline Date/Time: 02/08/2020 10:39 AMPerformed by: Familia Colon RNAuthorized by: Michael Maddox MD Consent: Consent obtained: Verbal Consent given by: Patient Risks discussed: Arterial puncture, incorrect placement, nerve damage, infection, bleeding, superficial thrombus and deep vein thrombus Alternatives discussed: Delayed treatment and alternative treatmentUniversal protocol: Procedure explained and questions answered to patient or proxy's satisfaction: y es Relevant documents present and verified: yes Test [...] Flat Vessel Size (mm): 5 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 IV therapy Location: Left basilic Device Type: Non-valved Catheter Lumen(s): Single lumen Catheter size: 3 Fr Catheter to vein ratio: 24%MidLine Characteristics: Catheter Brand: THOMAS POST MIDLINE Internal CatheterLength (cm): 12 Total Catheter Length (cm): 12 Catheter Lot Number: [id number] Catheter Expiration Date: 2Procedure details: Landmarks identified: yes Ultrasound guidance: yes Sterile ultrasound t echniques: Sterile gel and sterile probe covers were [...] tolerance of procedure: Tolerated well, no immediate complications [facility] SKILL,DX OR [id number] 15:39:11CFamilia hickey RN 02/08/2020 10:40 AMMidline Date/Time: 02/08/2020 10:39 AMPerformed by: Familia Colon RNAuthorized by: Michael Maddox MD Consent: Consent obtained: Verbal Consent given by: PatientRisks discussed: Arterial puncture, incorrect placement, nerve damage, [...] yes Patient identity confirmed: Verbally with patient, hospital- assigned identification number and arm bandPre-procedure details: Hand hygiene: Hand hygiene performed prior to insertion Sterile barrier technique: All e lements of maximal sterile technique followed Skin preparation: ChloraPrep Skin preparation agent: Dried prior to procedure Anesthesia (see MAR for exact dosages): Anesthesia method: Local infiltrationLocal anesthetic: Lidocaine 1% w/o epi Route administered: SubcutaneousMidLine Placement Details (Will create an LDA): Patient position: Flat Vessel Size (mm): 5 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 Location: Left basilic Device Type: Non-valved Catheter Lumen(s): Single lumen Catheter size: 3 Fr Catheter to vein ratio: 24%MidLine Characteristics: Catheter Brand: SL PROVENA MIDLINE Internal Catheter Length (cm): 12 Total Catheter Length (cm): 12 Catheter Lot Number: [id number] Catheter Expiration Date: 2Procedure details: Landmarks identified: yes Ultrasound guidance: yes Sterile ultrasoundtechniques: Sterile gel and sterile probe covers were [...] no immediate complicationsMethodist HospitalUs duplex venous upper [id number] 03:03:00 Vascular Ultrasound Laboratory Upper Extremity Venous Report [address] [place] [address] Pat.Name: SNOW ARGUETA Pat.ID: [id number] .Date: 02/07/2020 Refer.MD: MICHAEL MADDOX MD Exam Time: 4:33:00 PM Study Type:UE Venous Height: 66in Weight: 220lb BSA: 2.08 m2 Age: 7 1985,34Y Sex: FEMALE Sonogrphr: Davis Vi, RVT Pat. Stat.:Inpatient Room: [address] Vol: HV, CPT -4: 14897 Echo Event ID:[id number] Order ID: [id number] Reason for Study:Right arm pain and swelling. S/P midline removal on02/07/2020.Procedures: Colorflow, Grayscale/2D, Pulsed wave DopplerRace: D ---- SUMMARY: DUPL EX SCAN OBSERVATIONSRight LeftIJ Normal Subclavian Normal NormalAxillary Normal Brachial Normal Basilic Obstructed Cephalic(FA) Normal RIGHT: The upper arm basilic vein is non-compressible with mixedechogenic material within the lumen. Colorflow and Doppler signals areabsent. All other remaining veins are patetnt. LEFT:There is normal compressibility and no evidence of echogenicmaterial noted within the lumen of the subclavian vein. Colorflow andDoppler signals are normal. PRELIMINARY FINDINGS1. Obstructed superficial venous thrombosis of right upper arm basilicvein.2. No evidence of deep venous thrombosis of the vis ualized veins.Result given to EBONIE Husain at 17:30 PM on 02/07/2020.PHYSICIAN INTERPRETATION Venous examination of the right upper extremity and neck demonstratedno evidence of deep venous thrombosis.Obstructed superficial venous thrombosis of right upper arm basilicvein. --FINDINGS: Signed 02/07/2020 10:03 PMChaz Obrien MD, RPVIInterst. joseph medical center, Radiology Results In - 02/07/2020 10:03 PM CDT Vascular Ultrasound Laboratory Upper Extremity Venous Report [id number] [place] [address] Pat.Name: SNOW ARGUETA Namrata.ID: [id number] .Date: 02/07/2020 Refer.MD: MICHAEL MADDOX MD Exam Time: 4:33:00 PM Study Type:UE Venous Height: 66in Weight: 220lb BSA: 2.08 m2 Age: 7 1985,34Y Sex: FEMALE Sonogrphr: Ryan Torres RVT Pat. Stat.:Inpatient Room: BA10-0375-U Tape Vol:GELY, [facility] - 4: [address]1911 Echo Event ID:[id number] Order ID: [id number] Reason for Study:Right arm pain and swelling. [...] FINDINGS: Signed 02/07/2020 10:03 Yessi Obrien MD, RPVIMethodist [facility] duplex [facility] upper extremity 2020-02-08 03:03:00 Vascular Ultrasound Laboratory Upper Extremity Venous Report [id number] [address] Pat.Name: AIDA SNOWKRISTAL Ott.ID: [id number] .Date: 02/07/2020 Refer.MD: MICHAEL MADDOX MDExam Time: 4:33:00 PM Study Type:UE Venous Height: 66in Weight: 220lb BSA: 2.08 m2 Age: 7 1985,34Y Sex: FEMALE Sonogrphr: Ryan Torres RVT Pat. Stat.:Inpatient Room: [address] Vol: HV, [facility] - 4:03819 Echo Event ID:[id number] Order ID: [id number] Reason for Study:Right arm pain and swelling. S/Pmidline removal on02/07/2020.Procedures: Colorflow, Grayscale/2D, Pulsed wave DopplerRace: D -------- SUMMARY: DUPLEX SCAN OBSERVATIONS Right LeftIJ Normal [...] evidence of deep venous thrombosis of the visualiz ed veins.Result given to EBONIE Husain at 17:30 PM on 02/07/2020.PHYSICIAN INTERPRETATION Venous examination of the right upper extremity and neck demonstratedno evidence of deep venous thrombosis.Obstructed superficial venous thrombosis of right upper arm basilicvein. TENISHA CHAVEZS: Signed 02/07/2020 10:03 PMChaz Obrien MD, RPVIInterface,Radiology Results In - 02/07/2020 10:03 PM CDT Vascular Ultrasound Laboratory Upper Extremity Venous Report [id number] [address] Pat.Name: SNOW ARGUETA.ID: [id number] .Date: 02/07/2020 Refer.MD: MICHAEL MADDOX MD Exam Time: 4:33:00 PM Study Type:UE Venous Height: 66in Weight: 220lb BSA: 2.08 m2 Age: 7 1985,34Y Sex: FEMALE Sonogrphr: Ryan Torres RVT Pat. Stat.:Inpatient Room: YQ36-0308-U Tape Vol: HV, CPT - 4: 87963 Echo Event ID:[id number] Order ID: [id number] Reason for Study:Right arm pain and swelling. S/P midline removal on02/07/2020.Procedures: Colorflow, Grayscale/2D, Pulsed wave DopplerRace: D SUMMARY: DUPLEX SCAN OBSERVATIONS Right LeftIJ Normal Subclavian Normal NormalAxillary Normal Brachial Normal Basilic Obstructed Cephalic(FA) Normal RIGHT: The upper arm basilic vein is non-compressible with mixedechogenic materialwithin the lumen. Colorflow and Doppler signals areabsent. All other remaining veins are patetnt. LEFT: There is normal compressibility and no evidence of echogenicmaterial noted within the lumen of the subclavian vein. Colorflow andDoppler signals are normal. PRELIMINARY FINDINGS1. Obstructed superficial venous thrombosis of right upper arm basilicvein.2. No evidence of deep venous thrombosis of thevisualized veins.Result given to EBONIE Husain at 17:30 PM on 02/07/2020.PHYSICIAN INTERPRETATION Venous examination of the right upper extremity and neck demonstratedno evidence of deep venous thrombosis.Obstructed superficial venous thrombosis of right upper arm basilicvein. -----FINDINGS: Signed 02/07/2020 10:03 Yessi Obrien MD, RPVIMethchi st[facility] HospitalFlow cytometry [id number] 14:52:18 Test Item Value Reference Range Interpretation Comments Case number (test code = [id number]) Flow cytometry evaluation See link below for (test code = 2105135) PDF Lab Report [facility] HospitalFlow [facility] [id number] 14:52:18 Test Item Value Reference Range Interpretation Comments Case number (test code = [id number]) Flow cytometry evaluation See link below for (test code = 7469362) PDF Lab Report [facility],DX OR [id number] 14:18:07Javier Borjas RN 02/07/2020 9:21 AMMidline Date/Time: 02/07/2020 9:18 AMPerformed by: Javier Kolb, RNAuthorized by: Michael Maddox MD Consent: Consent obtained: Verbal Consentgiven by: Patient Risks discussed: Arterial puncture, incorrect [...] numberPre-procedure details: Hand hygiene: Hand hygiene performed priorto insertion Sterile barrier technique: All elements of [...] to vein ratio: 41%MidLine Characteristics: Catheter Brand: [employer] External Catheter Length (cm): 0 Internal Catheter Length (cm): 12 Total Catheter Length (cm): 12 Catheter Lot Number: [id number] Catheter Expiration Date: 1Procedure details: Landmarks identified: yes Ultrasound guidance: yes Sterile ultrasound techniques: Sterile gel and sterileprobe covers were used Number of attempts: 1 [...] immediate complicationsMethod[facility] HospitalVENIP[facility] NEED PHYS SKILL,DX OR [id number] 14:18:07Javier Kolb RN 02/07/2020 9:21 AMMidline Date/Time: 02/07/2020 9:18 AMPerformed by: Javier Kolb, RNAuthorized by: Michael Maddox MD Consent: Consent obtained: Verbal Consentgiven by: Patient Risks discussed: Arterial puncture, incorrect placement, nerve damage, bleeding, infection, pneumothorax, superficial thrombus and deep vein thrombus Alternatives discussed: No treatment, delayed treatment, alternative treatment, observation and referralUniversal protocol: Procedure e xplained and questions answered to patient or proxy's [...] numberPre-procedure details: Hand hygiene: Hand hygiene performed priorto insertion Sterile barrier technique: All elements of [...] to vein ratio: 41%MidLine Characteristics: Catheter Brand: ANGI[employer]ver External Catheter Length (cm): 0 Internal Catheter Length (cm): 12 Total Catheter Length (cm): 12 Catheter Lot Number: [id number] Catheter Expiration Date: 1Procedure details: Landmarks identified: [...] ultrasound-guided Modified Seldinger Technique: Yes Dressing/Securement: Dressing dryand intact, antimicrobial dressing dry and intact, antimicrobial dressing applied and catheter securement device Blood Loss Amount: Less than 20 mLPost-procedure details: Post-procedure: Dressing applied Patient tolerance of procedure: Tolerated well, no immediate complications [place] [address] [id number] 17:49:19 Test Item Value Reference Range Interpretation Comments Ventricular rate (test code = 253) Atrial rate (test code = 255) IL interval (test code = 266) QRSD interval [...] of 04-FEB-2020 04:50,-No significant change was found- [place] [address] [id number] 17:49:19 Test Item Value Reference Range Interpretation Comments Ventricular rate (test code = 253) Atrial rate (test code = 255) IL interval (test code = 266) QRSD interval [...] of 04-FEB-2020 04:50,-No significant change was found- [facility] Chest 1 [id number] 03:09:52EXAMINATION: XR CHEST 1 PORTABLE CLINICAL HISTORY: 34 years Female chest pressure on exertion COMP ARISON: None. IMPRESSION: No acute cardiopulmonary disease. FINDINGS: The cardiomediastinal silhouette, lungs, and regional skeletal structures are within normal limits for age. [facility]-[id number] Interface, Radiology Results Incoming - 02/05/2020 10:12 PM CDT EXAMINATION: XR CHEST 1 VW PORTABLECLINICAL HISTORY: 34 years Female chest pressure onexertionCOMPARISON: None.IMPRESSION:No acute cardiopulmonary disease.FINDINGS:The cardiomediastinal silhouette, lungs, and regional skeletal structures are within normal limits for age. [facility]-[id number] [facility] Chest 1 [id number] 03:09:52EXAMINATION: XR CHEST 1 PORTABLE CLINICAL HISTORY: 34 years Female chest pressure on exertion COMPARISON: None. IMPRESSION: No acute cardiopulmonary disease. FINDINGS: The cardiomediastinal silhouette, lungs, and regional skeletal structures are within normal limits for age. [facility]-[id number] Interface, Radiology Results 02/05/2020 10:12 PM CDT EXAMINATION: XR CHEST 1 VW PORTABLECLINICAL HISTORY: 34 years Female chest pressure on exertionCOMPARISON: None.IMPRESSION:No acute cardiopulmonary disease.FINDINGS:The cardiomediastinal silhouette, lungs, and regional skeletal structures are within normal limits for age. [facility]-[id number] [facility] Hospital Cytology (non-gynecological) [id number] 23:15:16 Test Item Value Reference Range Interpretation Comments Case number (test code = [id number]) Cytology See link below for (non-gynecological) PDF Lab Report report (test code = 1178) Result status (test code This is Final Report = [id number]) for [id number] [facility] HospitalCytology (non-gynecological) [id number] 23:15:16 Test Item Value Reference Range Interpretation Comments Case number (test code = [id number]) Cytology See link below for (non-gynecological) PDF Lab Report report (test code = 1178) Result status (test code This is Final Report = [id number]) for [id number] [facility] HospitalEEG (routine)2020-02-04 15:51:25EEG AWAKE AND ASLEEP Date of Service: 02/04/2020 Awake Recording: The occipital dominant rhythm is 10-11 Hz. 18-22 Hz activity is present in all regions. Sleep Recording: No epileptiform activity was recorded. Hyperventilation: No abnormality elicited. Photic Stimulation: No abnormality elicited. Impression The background activity is within the range of normal variation. No lateralized or epileptiform activity was recorded. ICD-10 Code: Z227Fezbzevox [facility] HospitalEEG (routine)2020-02-04 15:51:25EEG AWAKE AND ASLEEP Date of Service: 02/04/2020 Awake Recording: The occipital dominant rhythm is 10-11 Hz. 18-22 Hz activity is present in all regions. Sleep Recording: No epileptiform activity was recorded. Hyperventilation: No abnormality elicited. Photic Stimulation: No abnormality elicited. Impression The background activity is within the range of normal variation. No lateralized or epileptiform activity was recorded. ICD-10 Code: J245Uisaufcoe HospitalIR Lumbar Puncture by [id number] 15:23:15 EXAMINATION: IR LUMBAR PUNCTURE CLINICAL HISTORY: meningitis versus leukemia versus demyelination COMPARISON: None. Findings: Informed consent was obtained. Lower back was prepped and draped in usual sterile fashion. 1% lidocaine was used for local anesthesia. A 22-gauge 5 inch needle was advanced into spinal canal at the L2-3 level under intermittent fluoroscopic guidance. Opening pressure was 21 cmof water. 12 cc of clear CSF fluid was withdrawn. Patient complained of radiculopathy after 12 cc offluid was withdrawn. No complications. Total fluoroscopic time was 0.2 minutes. Total air kerma was 5 mGy. IMPRESSION: Successful fluoroscopic guided lumbar puncture. Opening pressure was 21 cm of water. [facility]-[id number] Interface, Radiology Results 02/04/2020 10:26 AM CDT EXAMINATION: IR LUMBAR PUNCTURECLINICAL HISTORY: meningitis versus leukemia versus demyelinationCOMPARISON: None.Findings:Informed consent was obtained. Lowerback was prepped and draped in usual sterile [...] lumbar puncture.Opening pressure was 21 cm of water.[facility]-[id number] [facility] Medical Center Lumbar Puncture by [id number] 15:23:15EXAMINATION: IR LUMBAR PUNCTURE CLINICAL HISTORY: meningitis versus leukemia versus demyelination COMPARISON: None. Findings: Informed consent was obtained. Lower back was prepped and draped in usual st erile fashion. 1% lidocaine was used for local anesthesia. A 22-gauge 5 inch needle was advanced into spinal canal at the L2-3 level under intermittent fluoroscopic guidance. Opening pressure was 21 cmof water. 12 cc of clear CSF fluid was withdrawn. Patient complained of radiculopathy after 12 cc offluid was withdrawn. No complications. Total fluoroscopic time was 0.2 minutes. Total air kerma was 5 mGy. IMPRESSION: Successful fluoroscopic guided lumbar puncture. Opening pressure was 21 cm of water. [facility]-[id number] Interface, Radiology Results Incoming 02/04/2020 10:26 AM CDT EXAMINATION: IR LUMBAR PUNCTURECLINICAL HISTORY: meningitis versus leukemia versus demyelinationCOMPARISON: None.Findings:Informed consent was obtained. Lowerback was prepped and draped in usual sterile [...] kerma was 5 mGy.IMPRESSION:Successful fluoroscopic guided lumbar puncture.Op ening pressure was 21 cm of water.[facility]-[id number] KzsvhnkbKBBX-EcB-7 (COVID-19) RNA [Presence] in Respiratory specimen by SARI with probe detection 2020-02-04 05:23:12 Test Item Value Reference Range Interpretation Comments SARS-CoV-2 (COVID-19) RNA Not detected Not-Detected [Presence] in Respiratory specimen by SARI with probe detection (test code = 37363-4) MRI Brain & Orbit W Wo [id number] 03:36:27EXAMINATION: MRI BRAIN & ORBIT W WO CONTRAST CLINICAL HISTORY: Vision loss COMPARISON: CT brain d ated 02/03/2020. FINDINGS: Pre and postcontrast MRI of [...] Unremarkable MRI of the brain and orbits. [facility]- [id number] Interface, RadiologyResults Incoming - 02/03/2020 10:39 PM CDT EXAMINATION: MRI BRAIN & ORBIT W WO CONTRASTCLINICAL HISTORY: Vision lossCOMPARISON: CT brain dated 02/03/2020.FINDINGS:Pre and postcontrast MRI of the brain and orbits is interpreted.The optic nerves, optic chiasm, and optic tracts are normal in size and signal intensity. There is no abnormal enhancement.The brain is normal in morphology and in signal intensity.There is no abnormal restricted d iffusion.No extra-axial collection or mass effect is seen.The major vascular flow-voids are preserved.IMPRESSION:Unremarkable MRI of the brain and orbits.[facility]-[id number] Brain & Orbit W Wo Contrast 2020-02-04 [...] Unremarkable MRI of the brain and orbits. [facility]-[id number] Interface, Radiology Results 02/03/2020 10:39 PM CDT [...] are preserved.IMPRESSION:Unremarkable MRI of the brain and orbits.[facility]-[id number] [facility] Head Wo [id number] 21:17:18EXAM: CT HEAD WO CONTRAST CLINICAL HISTORY: headache loss of vision concern for ICP TECHNIQUE: Noncontrast enhanced images of the brain were obtained from the skull base to the vertex. Both soft tissueand bone reconstruction algorithms were performed. CT scans are performed using radiation dose reduction techniques (iterative reconstruction and/or automated exposure control). Technical factors are ev aluated and adjusted to ensure appropriate moderation of [...] are clear. Mastoid air cells are normally pneumatize d. Osseous structures are intact. IMPRESSION: No CT evidence for acute intracranial abnormality. [id number] Interface, Radiology Results 02/03/2020 4:20 PM CDT EXAM: CT HEAD WO CONTRASTCLINICAL HISTORY: headache loss of vision co ncern for ICPTECHNIQUE: Noncontrast enhanced images of the [...] There is no evidence for acute intracranial hemorrhage,mass, mass effect, hydrocephalus, or extra-axial fluid collection.Crowding of the foramen magnum secondary to mild cerebellar tonsillar ectopia.Orbits are unremarkable. Mild mucosal thickening identified in fairly within the right maxillary sinus. Remaining paranasal sinuses are clear. Mastoid air cells are normally pneumatized. Osseous structures are intact.IMPRESSION:No CT evidence for acute intracranial abnormality.[id number]_[id number] HospitalodiPrimary [facility] Hospital Head Wo [id number] 21:17:18EXAM: CT HEAD WO CONTRAST CLINICAL HISTORY: [...] the foramen magnum secondary to mild cerebellar t onsillar ectopia. Orbits are unremarkable. Mild mucosal thickening [...] There is no evidence for acute intracranial hemorrhage,mass, mass effect, hydrocephalus, or extra-axial fluid collection.Crowding of the foramen magnum secondary to mild cerebellar tonsillar ectopia.Orbits are unremarkable. Mild mucosal thickening identified in fairly within the right maxillary sinus. Remaining paranasal sinuses are clear. Mastoid air cells are normally pneumatized. Osseous structures are intact.IMPRESSION:No CT evidence for acute intracranial abnormality.[id number]
[2021-12-15 00:37] LABS: Absolute Lymphocytes (CBC) 1.5 K/uL (0.7-4.9); Hematocrit 32.8 % (36.0-45.0); Lymphocytes % 18.1 % (15.3-44.8); MCV 80.8 fL (80-100); RBC Red Blood Cell Count 4.06 M/uL (3.86-4.86)
[2021-12-15 00:44] LABS: Protime INR 1.06
[2021-12-15 00:59] LABS: ALT/SGPT 16 U/L (12-78); AST/SGOT 7 U/L (15-37); Albumin 3.8 g/dL (3.4-5.0); Alkaline Phosphatase 60 U/L (45-117); BUN Blood Urea Nitrogen 14 mg/dL (7-18); Bicarbonate 24 mmol/L (21-32); Bilirubin Direct < 0.1 mg/dL (0-0.2); Bilirubin Total 0.3 mg/dL (0.2-1.0); Glomerular Filtration Rate 94 ml/min (=/>90); Glucose Level 88 mg/dL (74-106); Magnesium 2.2 mg/dL (1.8-2.4); Protein, Total 6.9 g/dL (6.4-8.2); Sodium Level 136 mmol/L (136-145)
[2021-12-15 01:00] LABS: Potassium 2.9 mmol/L (3.5-5.1)
[2021-12-15 01:41] LABS: Urine Blood Negative (Negative); Urine Glucose Negative (Negative); Urine Protein Negative (Negative)
[2021-12-15] MEDS ORDERED: POTASSIUM CL SA 10 MEQ TAB PO ONE (01:44)
--- NOTE | 2021-12-15 02:48 | EDPHYS ---
Physician Documentation [facility] Name: Snow Argueta Age: 36 yrs Sex: Female : 1985 Arrival Date: 12/14/2021 Time: 23:19 Bed 19 Private MD: ED Physician Noe Juarez HPI: 12/15 02:47 This 36 yrs old Female presents to ER via Wheelchair with complaints of ms3 Fainting, Fever, Blurred Vision, Foot Injury. 02:47 The patient has experienced syncope, became unresponsive. Onset: The symptoms/episode ms3 began/occurred just prior to arrival. Duration: This was a single episode, that lasted an unknown period of time. Context: the episode(s) was witnessed, by a friend. Associated injury: The patient did not suffer any apparent associated injury. Associated signs and symptoms: The patient has no apparent associated signs or symptoms. 36-year-old female with past medical history of ADD/ADHD, epilepsy, GERD, endometriosis, hypothyroidism, leukemia, lupus presents with her friend after falling 1 hour prior to a syncopal episode. Patient states she was talking with friends and began feeling dizzy and then went to stand up and passed out. Patient does endorse drinking 2 beers during the night. Patient states she is on Eliquis.. STRIPPER PRELIMINARY: 12/14 23:32 LMP 11/30/2021 ld1 Historical: - Allergies: 23:30 Cephalexin; ld1 23:30 Feraheme (Anaphylaxis); ld1 23:30 Gadavist; ld1 23:30 Latex, Natural Rubber; ld1 23:30 Zofran; ld1 - PMHx: 23:30 ADD/ADHD; epilepsy; GERD; Endometrosis; Hypothyroidism; Leukemia; Lupus erythematosus; ld1 Blood Clot on R arm; Pancreatitis; - PSHx: 23:30 Cholecystectomy; Appendectomy; Ligation of fallopian tube; ld1 - Immunization history:: Adult Immunizations up to date, Client reports having NOT received the Covid vaccine. - Social history:: Smoking status: Reported history of juuling and/or vaping. Patient uses alcohol, occasionally. ROS: 12/15 02:47 Constitutional: Negative for fever, and chills. Neck: Negative for injury, pain, and ms3 swelling, Cardiovascular: Negative for chest pain, and palpitations. Respiratory: Negative for shortness of breath, cough, wheezing, and pleuritic chest pain, Abdomen/GI: Negative for abdominal pain, nausea, vomiting, diarrhea, and constipation, Skin: Negative for injury, rash, and discoloration. Neuro: Positive for syncope. All other systems are negative. Exam: 12/14 23:49 ECG was reviewed by the Attending Physician. ms3 12/15 02:47 Constitutional: This is a well developed, well nourished patient who is awake, alert, ms3 and in no acute distress. Head/Face: Normocephalic, atraumatic. Neck: Trachea midline, no cervical lymphadenopathy. Supple, full range of motion without nuchal rigidity, or vertebral point tenderness. No Meningismus. Chest/axilla: Normal chest wall appearance and motion. Nontender with no deformity. Cardiovascular: Regular rate and rhythm with a normal S1 and S2. No gallops, murmurs, or rubs. Normal PMI, no JVD. No pulse deficits. Respiratory: Lungs have equal breath sounds bilaterally, clear to auscultation and percussion. No rales, rhonchi or wheezes noted. No increased work of breathing, no retractions or nasal flaring. Abdomen/GI: Soft, non-tender, with normal bowel sounds. No distension or tympany. No guarding or rebound. No evidence of tenderness throughout. Skin: Warm, dry with normal turgor. Normal color with no rashes, no lesions, and no evidence of cellulitis. Psych: Awake, alert, with orientation to person, place and time. Behavior, mood, and affect are within normal limits. Musculoskeletal/extremity: Extremities: noted in the right foot: pain, tenderness. Vital Signs: 12/14 23:27 BP 130 / 72; Pulse 82; Resp 18; Temp 98.2(O); Pulse Ox 100% on R/A; Weight 76.2 kg; ld1 Height 5 ft. 6 in. (167.64 cm); Pain 5/10; 12/15 00:00 BP 124 / 81; Pulse 84; Resp 18; Pulse Ox 100% on R/A; Pain 10/10; fu 01:00 BP 111 / 75; Pulse 81; Resp 18; Pulse Ox 100% ; fu 03:00 BP 116 / 76; Pulse 83; Resp 16; Pulse Ox 100% on R/A; fu 12/14 23:27 Body Mass Index 27.11 (76.20 kg, 167.64 cm) ld1 MDM: 12/14 23:47 Patient medically screened. ms3 12/15 02:47 Differential Diagnosis: idiopathic syncope, seizure, vasovagal episode, PE. Data ms3 reviewed: vital signs, nurses notes, lab test result(s), EKG, radiologic studies, and as a result, I will discharge patient. Data interpreted: threat monitoring analyst: rate is 82 beats/min, rhythm is normal sinus rhythm, regular, with no ectopy, Interpretation: normal rate, normal rhythm. Counseling: I had a detailed discussion with the patient and/or guardian regarding: the historical points, exam findings, and any diagnostic results supporting the discharge/admit diagnosis, lab results, radiology results, the need for outpatient follow up, to return to the emergency department if symptoms worsen or persist or if there are any questions or concerns that arise at home. ED course: On reevaluation patient improved, alert and oriented x4, no apparent distress, nontoxic, ambulatory in emergency department, speaking full sentences. Patient to follow-up as instructed. Patient understands agrees with plan. Return precautions discussed include worsening symptoms, or any other concerns. 12/15 00:19 Order name: Basic Metabolic Panel; Complete Time: 01:3 12/15 00:19 Order name: CBC with Diff; Complete Time: 01:3 12/15 00:19 Order name: Hepatic Function; Complete Time: 01:12 12/15 00:19 Order name: Magnesium; Complete Time: 01:12/15 00:19 Order name: Protime (+inr); Complete Time: 01:3 12/15 00:19 Order name: Ptt, Activated; Complete Time: 01:12 ms3 12/15 00:19 Order name: CT Head C Spine 3 12/15 00:19 Order name: EKG; Complete Time: 00:20 ms3 12/15 00:19 Order name: Cardiac monitoring; Complete Time: 00:23 ms3 12/15 01:24 Order name: D-Dimer; Complete Time: 01:50 ms3 12/15 01:29 Order name: Foot Right 3 View XRAY ms3 12/15 01:42 Order name: Urine Dipstick-Ancillary; Complete Time: 01:50 EDMS 12/15 01:42 Order name: Urine --Ancillary (enter results); Complete Time: 01:50 ds4 12/15 00:19 Order name: EKG - Nurse/Tech; Complete Time: 00:24 ms3 12/15 00:19 Order name: IV Saline Lock; Complete Time: 00:23 ms3 12/15 00:19 Order name: Labs collected and sent; Complete Time: 00:24 ms3 12/15 00:19 Order name: NPO; Complete Time: 00:58 ms3 12/15 00:19 Order name: O2 Per Protocol; Complete Time: 00:23 ms3 12/15 00:19 Order name: O2 Sat Monitoring; Complete Time: 00:23 ms3 12/15 00:19 Order name: Urine Dipstick-Ancillary (obtain specimen); Complete Time: 01:41 ms3 EC/26 23:49 Rate is 77 beats/min. Rhythm is regular. QRS [place] is Normal. QRS interval is normal. ms3 Clinical impression: Normal ECG. Interpreted by me. Reviewed by me. Administered Medications: 12/15 01:38 Drug: Potassium Chloride 40 mEq Route: PO; fu 02:53 Follow up: Response: No adverse reaction fu Disposition: 09:05 Chart complete. ms3 Disposition Summary: 12/15/21 02:47 Discharge Ordered Location: Home ms3 Condition: Stable ms3 Diagnosis - Syncope ms3 - Right foot pain ms3 - Fall ms3 Followup: ms3 - With: Private Physician - When: 2 - 3 days - Reason: Recheck today's complaints Discharge Instructions: - Discharge Summary Sheet ms3 - Syncope ms3 - Foot Pain ms3 Forms: - Medication Reconciliation Form ms3 - Thank You Letter ms3 - Antibiotic Education ms3 - Prescription Opioid Use ms3 Signatures: Dispatcher [employer] EDMS Galdino Self RN RN fu Noe Juarez DO DO ms3 Malgorzata Christensen RN RN ld1 Latesha Birch PA PA sb3 Corrections: (The following items were deleted from the chart) 08:57 08:54 This 36 yrs old Female presents to ER via Wheelchair with complaints of ms3 Fainting, Fever, Blurred Vision, Foot Injury. ms3
--- NOTE | 2021-12-15 02:48 | ER ---
Nurse's Notes [facility] Name: Snow Argueta Age: 36 yrs Sex: Female : 1985 Arrival Date: 12/14/2021 Time: 23:19 Bed 19 Private MD: Diagnosis: Syncope;Right foot pain;Fall Presentation: 12/14 23:27 Chief complaint: Patient states: Slipped on rug and fell really hard - c/o severe pain ld1 in right foot. 1 hour after fall I began to feel clammy and dizzy, disoriented. Pt reports standing up to leave friends house and ears started ringing, vision became blurry, started sweating and passed out - reports hitting head. Reports vomiting immediately. Coronavirus screen: At this time, the client does not indicate any symptoms associated with coronavirus-19. Ebola Screen: No symptoms or risks identified at this time. Initial Sepsis Screen: Does the patient meet any 2 criteria? No. Patient's initial sepsis screen is negative. Does the patient have a suspected source of infection? No. Patient's initial sepsis screen is negative. Risk Assessment: Do you want to hurt yourself or someone else? Patient reports no desire to harm self or others. Onset of symptoms was December 14, 2021. 23:27 Method Of Arrival: Wheelchair ld1 23:27 Acuity: LEONEL 3 ld1 Triage Assessment: 23:30 General: Appears in no apparent distress. comfortable, Behavior is calm, cooperative, ld1 appropriate for age. Pain: Complains of pain in right foot Pain does not radiate. Pain currently is 5 out of 10 on a pain scale. Quality of pain is described as throbbing, Pain began suddenly. EENT: Reports blurred vision. Neuro: Level of Consciousness is awake, alert, obeys commands, Oriented to person, place, time, situation. Neuro: Reports blurred vision dizziness, a syncopal episode weakness. Cardiovascular: Capillary refill < 3 seconds Patient's skin is warm and dry. Respiratory: Airway is patent Respiratory effort is even, unlabored. GI: Abdomen is flat, non-distended. : No signs and/or symptoms were reported regarding the genitourinary system. Derm: No signs and/or symptoms reported regarding the dermatologic system. Musculoskeletal: No signs and/or symptoms reported regarding the musculoskeletal system. ASSOCIATE J[employer] JUDGE: 23:32 LMP 11/30/2021 ld1 Historical: - Allergies: 23:30 Cephalexin; ld1 23:30 Feraheme (Anaphylaxis); ld1 23:30 Gadavist; ld1 23:30 Latex, Natural Rubber; ld1 23:30 Zofran; ld1 - PMHx: 23:30 ADD/ADHD; epilepsy; GERD; Endometrosis; Hypothyroidism; Leukemia; Lupus erythematosus; ld1 Blood Clot on R arm; Pancreatitis; - PSHx: 23:30 Cholecystectomy; Appendectomy; Ligation of fallopian tube; ld1 - Immunization history:: Adult Immunizations up to date, Client reports having NOT received the Covid vaccine. - Social history:: Smoking status: Reported history of juuling and/or vaping. Patient uses alcohol, occasionally. Screenin/27 00:31 Abuse screen: Denies threats or abuse. Nutritional screening: No deficits noted. fu Tuberculosis screening: No symptoms or risk factors identified. Fall Risk Fall in past 12 months (25 points). No secondary diagnosis (0 pts). IV access (20 points). Ambulatory Aid- None/Bed Rest/Nurse Assist (0 pts). Gait- Normal/Bed Rest/Wheelchair (0 pts) Mental Status- Oriented to own ability (0 pts). Assessment: 00:00 General: Appears in no apparent distress. Pain: Complains of pain in right foot Pain fu does not radiate. Pain currently is 10 out of 10 on a pain scale. Aggravated by weight bearing. Neuro: Level of Consciousness is awake, alert, obeys commands, Oriented to person, place, time, situation, Labor Expediter are equal bilaterally Speech is normal, Facial symmetry appears normal, Reports blurred vision. Respiratory: Respiratory effort is even, unlabored, Respiratory pattern is regular. GI: Reports nausea. Derm: Skin is intact. 01:10 Reassessment: Patient and/or family updated on plan of care and expected duration. Pain fu level reassessed. Patient complaining of right foot pain, MD notified. 02:00 Reassessment: Patient and/or family updated on plan of care and expected duration. Pain fu level reassessed. Patient is alert, oriented x 3, equal unlabored respirations, skin warm/dry/pink. Vital Signs: 12/14 23:27 BP 130 / 72; Pulse 82; Resp 18; Temp 98.2(O); Pulse Ox 100% on R/A; Weight 76.2 kg; ld1 Height 5 ft. 6 in. (167.64 cm); Pain 5/10; 12/15 00:00 BP 124 / 81; Pulse 84; Resp 18; Pulse Ox 100% on R/A; Pain 10/10; fu 01:00 BP 111 / 75; Pulse 81; Resp 18; Pulse Ox 100% ; fu 03:00 BP 116 / 76; Pulse 83; Resp 16; Pulse Ox 100% on R/A; fu 12/14 23:27 Body Mass Index 27.11 (76.20 kg, 167.64 cm) ld1 ED Course: 12/14 23:19 Patient arrived in ED. ja2 23:30 Triage completed. ld1 23:30 Inserted saline lock: 20 gauge in right antecubital area, using aseptic technique. fu Blood collected. 23:32 Arm band placed on right wrist. ld1 23:38 Noe Juarez DO is Attending Physician. ms3 23:59 Galdino Self, EBONIE is Primary Nurse. fu 12/15 00:23 Ptt, Activated Sent. fu 00:23 Protime (+inr) Sent. fu 00:23 Magnesium Sent. fu 00:23 Hepatic Function Sent. fu 00:23 CBC with Diff Sent. fu 00:23 Basic Metabolic Panel Sent. fu 00:31 Patient has correct armband on for positive identification. Placed in gown. Bed in low fu position. Call light in reach. Side rails up X2. night monitor on. Pulse ox on. NIBP on. Warm blanket given. 00:50 CT Head C Spine In Process Unspecified. EDMS 01:00 Notified ED physician of a critical lab result(s). potassium of 2.9 Dr Juarez notified. bb 02:09 Foot Right 3 View XRAY In Process Unspecified. EDMS 03:42 No provider procedures requiring assistance completed. IV discontinued, bleeding fu controlled, Pressure dressing applied. Administered Medications: 01:38 Drug: Potassium Chloride 40 mEq Route: PO; fu 02:53 Follow up: Response: No adverse reaction fu Medication: 03:00 VIS not applicable for this client. fu Outcome: 02:47 Discharge ordered by . ms3 03:43 Discharged to home via wheelchair, with crutches. fu 03:43 Condition: stable 03:43 Discharge instructions given to patient, Instructed on crutch walking, Demonstrated understanding of instructions, follow-up care, Prescriptions given X 0 03:44 Patient left the ED. fu Signatures: Dispatcher [employer] EDOphelia Ye, RN EBONIE Galdino Self RN RN fu Noe Juarez DO DO ms3 Malgorzata Christensen RN RN ld1 Ruth Arellano2 Corrections: (The following items were deleted from the chart) 12/14 23:33 23:27 Chief complaint: Patient states: Slipped on rug and fell really hard - c/o severe ld1 pain in right foot. 1 hour after fall I began to feel clammy and dizzy, disoriented. Pt reports standing up to leave friends house and ears started ringing, vision became blurry, started sweating and passed out. Reports vomiting immediately. ld1 12/15 03:44 03:25 Patient left the ED. fu fu
[2021-12-15 05:52] VITALS: TEMP 98.2; O2SAT 100
[2021-12-15 05:57] VITALS: BP 111/75
--- NOTE | 2021-12-15 15:18 | EKG ---
Test Date: 2021-12-14 Test Time: 23:49:24 Parts Counter Sales Person: ELIANE MEASUREMENT RESULTS: Intervals: Rate: 77 ME: 148 QRSD: 80 QT: 368 QTc: 416 [place]: P: 59 ME: 148 QRS: 65 T: 51 INTERPRETIVE STATEMENTS: Normal sinus rhythm Normal ECG Compared to ECG 05/10/2021 23:23:38 No significant changes Electronically Signed On 12-15-21 15:18:03 CDT by Abner Steen
--- NOTE | 2021-12-15 17:38 | RAD REPORT ---
EXAM DESCRIPTION: CT - Head C Spine Mpr Wo Con - 12/15/2021 6:17 am CLINICAL HISTORY: Fall TECHNIQUE: Axial computed tomography images of the head/brain and cervical spine without intravenous contrast. Sagittal and coronal reformatted images were created and reviewed. This CT exam was pe rformed using one or more of the following dose reduction techniques: automated exposure control, a djustment of the mA and/or kV according to patient size, and/or use of iterative reconstruction techn ique. COMPARISON: Head CT dated 06/03/2020 FINDINGS: Brain: Unremarkable. No hemorrhage. No significant white matter disease. No edema. Ventricles: Unremarkable. No ventriculomegaly. Skull: No acute fracture. Sinuses: Right maxillary sinus mucous retention cyst/polyp. Mild left maxillary sinus mucosal thi ckening. Mastoid air cells: Unremarkable as visualized. No mastoid effusion. Vertebrae: Loss of normal lordosis which can be seen secondary to patient positioning, pain or musc le spasm. No acute fracture. Discs/spinal canal/neural foramina: No acute findings. No spinal canal stenosis. Soft tissues: Unremarkable. IMPRESSION: 1. No acute intracranial or extra-axial abnormality. 2. No acute cervical spine injury. Electronically signed by: Selma Wen MD 12/15/2021 1:04 AM CDT Due to temporary technical issues with the PACS/Fluency reporting system, reports are being signed by the in house radiologists without review as a courtesy to insure prompt reporting. The interpreting radiologist is fully responsible for the content of the report.
--- NOTE | 2021-12-15 17:44 | RAD REPORT ---
EXAM DESCRIPTION: RAD - Foot Right 3 View - 12/15/2021 2:07 am CLINICAL HISTORY: PAIN TECHNIQUE: Frontal, lateral and oblique views of the right foot. COMPARISON: No relevant prior studies available. 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 No acute fracture. N o dislocation. Soft tissues: Unremarkable. No radiopaque foreign body. IMPRESSION: No acute injury. Electronically signed by: Selma Wen MD 12/15/2021 2:36 AM CDT Due to temporary technical issues with the PACS/Fluency reporting system, reports are being signed by the in house radiologists without review as a courtesy to insure prompt reporting. The interpreting radiologist is fully responsible for the content of the report.
== END 2021-12-15 03:25 | disposition home or self-care (01) ==
LOC: ER 23:16
DX: R55 Syncope and collapse (principal); M79.671 Pain in right foot; W19.XXXA Unspecified fall, initial encounter; Z85.6 Personal history of leukemia; Z88.8 Allergy status to other drugs, medicaments and biological substances; Z88.1 Allergy status to other antibiotic agents; Z91.040 Latex allergy status; Z91.048 Other nonmedicinal substance allergy status
CPT/HCPCS: 36415; 70450; 72125; 80048; 80076; 81003; 81025; 83735; 85025; 85379; 85610; 85730; 93005; 99285

== ENCOUNTER 2022-02-10 02:39 | Emergency (ER) | payer BC ==
--- OUTSIDE RECORDS SUMMARY | 2022-02-10 02:42 | XMS REPORT | Clinical Summary ---
:1985 Author Organization [facility] Address [address] [place] [address] Care Team Providers Name Role Phone Marck [...] Unavailable Marck Greenberg MD Unavailable Nina Graham ENAMEL CRACKER Unavailable [phone] Rin Wren ENAMEL CRACKER Unavailable Gabriela Suly PA Unavailable Severiano Erlinjaylin ENAMEL CRACKER Unavailable Christianne Chaidez MD Unavailable [phone] Tommie Yanez Mike PA Unavailable Marie Jung PA Unavailable [phone] DayanaAlexandra Kingston ENAMEL CRACKER Unavailable [phone] Graeme Damico MD Unavailable Chico Damico MD Unavailable Kristy Florez MD Unavailable [phone] Sony Rich MD Unavailable Sony Watson MD Unavailable [phone] Santino Alvarenga MD Unavailable Aurora Busby MD Unavailable Domenic Gordon MD Unavailable Unavailable Otis Busby MD Unavailable [phone] Allergies Active Allergy Reactions Severity Noted [...] Description 03/30/2021 Office Visit Leukemia Jori Long, ENAMEL CRACKER Systemic lupus erythematosus, not otherw ise specified [...] leukemia, in re mission (Primary Dx) after 02/10/2021 Immunizations Name Administration Dates Next Due Influenza [...] ts for this ANTIBODY SCREEN NEGATIVE AM [employer] pro cedure are in the results section. CLOT EXPIRATION DATE Routine 03/30/2021 11:04 Res ults for this AM [employer] procedure are i n the results section. 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 MANUAL DIFFERENTIAL STAT 03/30/2021 11:04 Acute promyelocyt ic Results for this AM [employer] leukemia, in procedure are i n remission the results section. Results CBC STAT 03/30/2021 11:04 Acute promyelocytic Resu lts for this AM [employer] leukemia, in procedure are i n remission the results section. ANTIBODY SCREEN Routine 03/30/2021 11:04 Acute promyelocytic R esults for this AM [employer] leukemia, in procedure are i n remission the results section. ABORH Routine 03/30/2021 11:04 Acute promyelocytic Resu lts for this AM [employer] leukemia, in procedure are i n remission the results section. HP T(15;17) PML-LEN Routine 03/30/2021 11:04 Acute promyel ocytic Results for this QUANTITATIVE PCR AM [employer]ECT leukemia, in procedure a re in COLLECTION, BLOOD remission the result s section. MAGNESIUM LEVEL Routine 03/30/2021 11:04 Acute promyelocytic R esults for this AM [employer] leukemia, in procedure are i n remission the results section. 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 ALANINE AMINOTRANSFERASE Routine 03/30/2021 11:04 Acute promye locytic Results for this AM [employer] leukemia, in procedure are i n remission the results section. LACTATE DEHYDROGENASE Routine 03/30/2021 11:04 Acute promyeloc ytic Results for this AM [employer] leukemia, in procedure are i n remission the results section. ALKALINE PHOSPHATASE Routine 03/30/2021 11:04 Acute promyelocy tic Results for this AM [employer] leukemia, in procedure are i n remission the results section. 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 URIC ACID Routine 03/30/2021 11:04 Acute promyelocytic Resu lts for this AM [employer] leukemia, in procedure are i n remission the results section. 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 GLUCOSE, RANDOM Routine 03/30/2021 11:04 Acute promyelocytic R esults for this AM [employer] leukemia, in procedure are i n remission the results section. 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 CALCIUM LEVEL TOTAL Routine 03/30/2021 11:04 Acute promyelocyt ic Results for this AM [employer] leukemia, in procedure are i n remission the results section. ALBUMIN LEVEL Routine 03/30/2021 11:04 Acute promyelocytic Res ults for this AM [employer] leukemia, in procedure are i n remission the results section. TOTAL PROTEIN Routine 03/30/2021 11:04 Acute promyelocytic Res ults for this AM [employer] leukemia, in procedure are i n remission the results section. 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, in remission after 02/10/2021 Results t(15;17) PML-LEN Quantitative PCR Collection, Blood (03/30/2021 11:04 AM [employer]) athologist [facility] Molecular Yes [facility] Diagnostics [facility]ENTER (Received) Specimen Anatomical Collection Method Collection Time Receive d Time (Source) Location / / Volume Laterality Blood 03/30/2021 11:04 03/30/2021 1:39 AM [employer] PM [employer] Jori PEPPER MD BLOOD COLLECTIONS Performing Organization Address City/State/ZIP Code Phon e Number [facility] CANCER Unless otherwise noted, [place] [address] CENTER all lab tests performed by: Division of Pathology and Laboratory Medicine [address] (ABNORMAL) Glucose, Random (03/30/2021 11:04 AM [employer]) athologist Signature Glucose Random 62 (L) 70 - 199 [facility] mg/dL CANCER CENTER Comment: Effective 11/15/15, the glucose reference intervals have been updated based on [place] [employer] guidelines (Standards of Medical Care [...] Volume Laterality Blood 03/30/2021 11:04 03/30/2021 AM [employer]CH[employer]ECT 11:53 AM [employer] ARCHITECT Narrative [facility] - 12:26 PM [employer] ARCHITECT Schedule in Fast Track Jori Long NP LAB BLOOD ORDERABLES Performing Organization Address City/[facility]/ZIP Code Phon e Number [facility] CANCER Unless otherwise noted, [address] all lab tests performed by: Division of Pathology and Laboratory Medicine [place] .Serum Creatinine (03/30/2021 11:04 AM [employer]) P athologist Signature Creatinine 0.95 0.51 - 0.95 [facility] mg/dL CAN[facility]ER CENTER Specimen Anatomical Collection Method Collection Time Receive d Time (Source) Location / / Volume Laterality Blood 03/30/2021 11:04 03/30/2021 AM [employer] 11:53 AM [employer] ARCHITECT Narrative [facility] - 12:26 PM [employer]CH[employer] Schedule in Fast Track Jori Long NP LAB BLOOD ORDERABLES Performing Organization Address City/State/ZIP Code Phon e Number [facility] CANCER Unless otherwise noted, [address] all lab tests performed by: Division of Pathology and Laboratory Medicine [facility] [place] (ABNORMAL) .CBC (03/30/2021 11:04 AM [employer]) Analysis Performed At Patho logist Time Signature WBC 9.4 4.0 - 11.0 [facility] K/uL DIAGNOSTIC CENTER RBC 4.53 4.00 - [facility] 5.50 M/uL DIAGNOSTIC CENTER Hgb 13.0 12.0 - [facility] 16.0 gm/dL DIAGNOSTIC CENTER Hct 40.0 37.0 - [facility] 47.0 % DIAGNOSTIC CENTER MCV 88 82 - 98 fL [facility] DIAGNOSTIC CENTER MCH 28.7 27.0 - [facility] 31.0 pg DIAGNOSTIC CENTER MCHC 32.5 31.0 - [facility] 36.0 gm/dL DIAGNOSTIC CENTER RDW-SD 40.1 35.1 - [facility] 46.3 fL DIAGNOSTIC CENTER RDW-CV 12.3 12.0 - [facility] 15.5 % DIAGNOSTIC CENTER Platelet count 252 140 - 440 [facility] K/uL DIAGNOSTIC CENTER MPV 12.2 (H) 4.0 - 10.4 [facility] fL DIAGNOSTIC CENTER INRBC 0.0 <=0.0 % [facility] DIAGNOSTIC CENTER Comment: The INRBC (instrument NRBC) [...] Volume Laterality Blood 03/30/2021 11:04 03/30/2021 AM [employer] ARCHITECT 11:15 AM [employer] ARCHITECT Narrative [facility] DIAGNOSTIC CENTER - 03/30 11:28 AM [employer] ARCHITECT Schedule in Fast Track Jori Long NP LAB BLOOD ORDERABLES Performing Organization Address City/State/ZIP Code Phon e Number [facility] DIAGNOSTIC Unless otherwise noted, [place] [address] CENTER all lab tests performed by: Division of Pathology and Laboratory Medicine [facility]5 [facility] Clot Expiration Date (03/30/2021 11:04 AM [employer]) Patholo gist Method Time Signature T & S 04/02/2021 [facility] [place] CANCER CENTER Specimen Anatomical Collection Method Collection Time Receive d Time (Source) Location / / Volume Laterality Blood 03/30/2021 11:04 03/30/2021 AM [employer] ARCHITECT 11:54 AM [employer] ARCHITECT Jori Long NP BLOOD BANK TEST ORDERABLES Performing Organization Address City/State/ZIP Code Phon e Number [facility] CANCER Unless otherwise noted, [place] [address] [place] all lab tests performed by: Division of Pathology and Laboratory Medicine [address] Glomerular Filtration Rate (03/30/2021 11:04 AM [employer]) P athologist Signature eGFR-AA 90 >=60 [facility] mL/min/1.73 CANCER CENTER sq. m Comment: Normal [...] <15 eGFR-SARI 78 >=60 mL/min/1.73 sq. m ID MD Santana [facility] Comment: Normal eGFR: >= 60 mL/min/1.73 m2 [...] Volume Laterality Blood 03/30/2021 11:04 03/30/2021 AM [employer] ARCHITECT 11:53 AM [employer] ARCHITECT Narrative [facility] - 12:26 PM [employer] ARCH[employer]ECT Schedule in Fast Track Jori Long NP LAB BLOOD ORDERABLES Performing Organization Address City/State/ZIP Code Phon e Number [facility] CANCER Unless otherwise noted, [place] [address] [place] all lab tests performed by: Division of Pathology and Laboratory Medicine [facility]5 [place] Fractionated Bilirubin (03/30/2021 11:04 AM [employer]ECT) athologist Signature Bili Total 0.4 <=1.2 mg/dL [facility] Comment: Indocyanine Green (ICG) may cause falsel y elevated bilirubin results. Total and direct bilirubin must not be measured from samples containing indocyanine green. False elevation of total bilirubin can b e seen in patients with IgG concentrations above 28 g/L. Bili Direct <0.2 <=0.3 mg/dL ID MD [facility] Comment: Indocyanine Green (ICG) may cau se falsely elevated bilirubin results. Total and direct bilirubin must not be measure d from samples containing indocyanine green. Bili Indirect See Note 0.0 - 0.9 mg/dL ID MD [facility] Comment: Unable to calculate Indirect Bi lirubin result due to some parameters are outside reportable range Specimen Anatomical Collection Method Collection Time Receive d Time (Source) Location / / Volume Laterality Blood 03/30/2021 11:04 03/30/2021 AM [employer] ARCHITECT 11:53 AM [employer] ARCHITECT Jori Long NP LAB BLOOD ORDERABLES Performing Organization Address City/State/ZIP Code Phon e Number [facility] CANCER Unless otherwise noted, [address] all lab tests performed by: Division of Pathology and Laboratory Medicine [address] MD t(15;17) PML-LEN Quantitative PCR Interpretation and Report (03/30/2021 11:04 AM [employer]CH[employer]ECT) Specimen (Source) Anatomical Collection Method Collection Time Re ceived Time Location / / Volume Laterality 03/30/2021 11:04 AM [employer]ECT Narrative This result has an attachment that is no t available. Jori Long NP, [facility] (SHANTELLE HAMILTON) TMP Interpretation Antibody Screen Negative (03/30/2021 11:04 AM [employer]CHITECT) [facility] Method Time Signature TMP Auto Neg At the ID [facility] patient plasma shows no evidence of RBC alloantibodi es. Comment: VALERIE FREDERICK, Dictated by: VALERIE FREDERICK, Dictated Date/Time: 03.30.2021 20:35 PM [employer] Transcribed Date/Time: 03.30.2021 20:35 PM [employer] Electronically Signed By: VALERIE LIRIANO, on 03.30.2021 20:35 PM Specimen Anatomical Collection Method Collection Time Receive d Time (Source) Location / / Volume Laterality Blood 03/30/2021 11:04 03/30/2021 AM [employer] ARCHITECT 11:54 AM [employer] ARCHITECT Jori Long NP BLOOD BANK TEST ORDERABLES Performing Organization Address City/State/ZIP Code Phon e Number [facility] CANCER Unless otherwise noted, [address] all lab tests performed by: Division of Pathology and Laboratory Medicine [address] ABORh (03/30/2021 11:04 AM [employer] ARCHITECT) athologist [facility] ABOR. A POS [facility] CANCER CENTER Specimen Anatomical Collection Method Collection Time Receive d Time (Source) Location / / Volume Laterality Blood 03/30/2021 11:04 03/30/2021 AM [employer] ARCHITECT 11:54 AM [employer] ARCHITECT Jori Long NP BLOOD BANK TEST ORDERABLES Performing Organization Address City/[facility] Phon e Number [facility] CANCER Unless otherwise noted, [address] all lab tests performed by: Division of Pathology and Laboratory Medicine [address] (ABNORMAL) Differential (03/30/2021 11:04 AM [employer] ARCHITECT) athologist [facility] Neutrophil % 75.3 (H) 42.0 - [facility] 66.0 % DIAGNOSTIC CENTER Lymphocyte % 16.8 (L) 24.0 - [facility] 44.0 % DIAGNOSTIC CENTER Monocyte % 6.3 2.0 - 7.0 [facility] % DIAGNOSTIC CENTER Eosinophil % 0.8 (L) 1.0 - 4.0 [facility] % DIAGNOSTIC CENTER Basophil % 0.5 0.0 - 1.0 [facility] % DIAGNOSTIC CENTER IGRE % 0.3 0.0 - 0.4 [facility] % DIAGNOSTIC CENTER Comment: IGRE % count includes Metamyelo cytes, Myelocytes, and Promyelocytes. Neutrophil Abs 7.10 1.70 - 7.30 K/uL ID MD LISA PER[facility]O [facility] [place] Lymphocyte Abs 1.59 1.00 - 4.80 K/uL ID MD LISA PER[facility] [place] Monocyte Abs 0.59 0.08 - 0.70 K/uL ID MD [facility] Eosinophil Abs 0.08 0.04 - 0.40 K/uL ID MD [facility] [place] Basophil Abs 0.05 0.00 - 0.10 K/uL ID MD [facility] IG Abs 0.03 0.00 - 0.04 K/uL ID MD LULI [facility] Specimen Anatomical Collection Method Collection Time Receive d Time (Source) Location / / Volume Laterality Blood 03/30/2021 11:04 03/30/2021 AM [employer] ARCHITECT 11:15 AM [employer] ARCHITECT Narrative [facility] - 03/30 11:28 AM [employer] ARCHITECT Schedule in Fast Track Jori Long NP LAB BLOOD ORDERABLES Performing Organization Address City/[facility]/ZIP Code Phon e Number [facility] DIAGNOSTIC Unless otherwise noted, [place] [address] [place] all lab tests performed by: Division of Pathology and Laboratory Medicine [address] Antibody Screen (03/30/2021 11:04 AM [employer]CHITECT) athologist Signature ABSC. Negative ABSC [facility] Specimen Anatomical Collection Method Collection Time Receive d Time (Source) Location / / Volume Laterality Blood 03/30/2021 11:04 03/30/2021 AM [employer] ARCHITECT 11:54 AM [employer] ARCHITECT Jori Long NP BLOOD BANK TEST ORDERABLES Performing Organization Address City/[facility] Phon e Number [facility] CANCER Unless otherwise noted, [address] all lab tests performed by: Division of Pathology and Laboratory Medicine [address] Uric Acid (03/30/2021 11:04 AM [employer]CHITECT) athologist Signature Uric Acid 3.4 2.4 - 5.7 [facility] mg/dL [facility] Specimen Anatomical Collection Method Collection Time Receive d Time (Source) Location / / Volume Laterality Blood 03/30/2021 11:04 03/30/2021 AM [employer] ARCHITECT 11:53 AM [employer] ARCHITECT Narrative [facility] - 12:26 PM [employer] ARCHITECT Schedule in Fast Track Jori Long NP LAB BLOOD ORDERABLES Performing Organization Address City/State/ZIP Code Phon e Number [facility] CANCER Unless otherwise noted, [address] all lab tests performed by: Division of Pathology and Laboratory Medicine [address] BUN (03/30/2021 11:04 AM [employer] ARCHITECT) athologist Signature BUN 12 6 - 23 [facility] mg/dL [facility] Specimen Anatomical Collection Method Collection Time Receive d Time (Source) Location / / Volume Laterality Blood 03/30/2021 11:04 03/30/2021 AM [employer] ARCHITECT 11:53 AM [employer] ARCHITECT Jori Long NP LAB BLOOD ORDERABLES Performing Organization Address City/State/ZIP Code Phon e Number [facility] CANCER Unless otherwise noted, [address] all lab tests performed by: Division of Pathology and Laboratory Medicine [address] Alanine Aminotransferase (03/30/2021 11:04 AM [employer] ARCHITECT) P athologist Signature ALT 17 <=33 U/L [facility] Specimen Anatomical Collection Method Collection Time Receive d Time (Source) Location / / Volume Laterality Blood 03/30/2021 11:04 03/30/2021 AM [employer] ARCHITECT 11:53 AM [employer] ARCHITECT Narrative [facility] - 12:26 PM [employer] ARCHITECT Schedule in Fast Track Jori Long NP LAB BLOOD ORDERABLES Performing Organization Address City/[facility]/ZIP Code Phon e Number [facility] CANCER Unless otherwise noted, [address] all lab tests performed by: Division of Pathology and Laboratory Medicine [address] Total Protein (03/30/2021 11:04 AM [employer] ARCHITECT) P athologist Signature Total Protein 6.8 6.4 - 8.3 [facility] g/dL [facility] Specimen Anatomical Collection Method Collection Time Receive d Time (Source) Location / / Volume Laterality Blood 03/30/2021 11:04 03/30/2021 AM [employer] ARCHITECT 11:53 AM [employer] ARCHITECT Narrative [facility] - 12:26 PM [employer] ARCHITECT Schedule in Fast Track Jori Long NP LAB BLOOD ORDERABLES Performing Organization Address City/[facility]/ZIP [facility] Phon e Number [facility] CANCER Unless otherwise noted, [address] all lab tests performed by: Division of Pathology and Laboratory Medicine [address] Phosphorus Level (03/30/2021 11:04 AM [employer] ARCHITECT) P athologist Signature Phosphorus 3.8 2.5 - 4.5 [facility] mg/dL [facility] Specimen Anatomical Collection Method Collection Time Receive d Time (Source) Location / / Volume Laterality Blood 03/30/2021 11:04 03/30/2021 AM [employer] ARCHITECT 11:53 AM [employer] ARCHITECT Narrative [facility] - 12:26 PM [employer] ARCHITECT Schedule in Fast Track Jori Long NP LAB BLOOD ORDERABLES Performing Organization Address City/State/ZIP Code Phon e Number [facility] Unless otherwise noted, [address] all lab tests performed by: Division of Pathology and Laboratory Medicine [address] Alkaline Phosphatase (03/30/2021 11:04 AM [employer] ARCHITECT) athologist Signature Alk Phos 69 35 - 104 [facility] U/L [facility] Specimen Anatomical Collection Method Collection Time Receive d Time (Source) Location / / Volume Laterality Blood 03/30/2021 11:04 03/30/2021 AM [employer] ARCHITECT 11:53 AM [employer] ARCHITECT Narrative [facility] - 12:26 PM [employer] ARCHITECT Schedule in Fast Track Jori Long NP LAB BLOOD ORDERABLES Performing Organization Address City/[facility]/ZIP Code Phon e Number [facility] Unless otherwise noted, [address] all lab tests performed by: Division of Pathology and Laboratory Medicine [address] Magnesium Level (03/30/2021 11:04 AM [employer] ARCHITECT) athologist [facility] Magnesium 2.2 1.6 - 2.6 [facility] mg/dL [facility] Specimen Anatomical Collection Method Collection Time Receive d Time (Source) Location / / Volume Laterality Blood 03/30/2021 11:04 03/30/2021 AM [employer] ARCHITECT 11:53 AM [employer] ARCHITECT Narrative [facility] - 12:26 PM [employer] ARCHITECT Schedule in Fast Track Jori Long NP LAB BLOOD ORDERABLES Performing Organization Address City/[facility]/ZIP Code Phon e Number [facility] Unless otherwise noted, [address] all lab tests performed by: Division of Pathology and Laboratory Medicine [address] LDH (03/30/2021 11:04 AM [employer] ARCHITECT) athologist Signature LDH 162 135 - 214 [facility] U/L [facility] Comment: Results greater than 1651 U/L m [...] Volume Laterality Blood 03/30/2021 11:04 03/30/2021 AM [employer] ARCHITECT 11:53 AM [employer] ARCHITECT Narrative [facility] - 12:26 PM [employer] ARCHITECT Schedule in Fast Track Jori Long NP LAB BLOOD ORDERABLES Performing Organization Address City/[facility]/ZIP [facility] Phon e Number [facility] CANCER Unless otherwise noted, [address] all lab tests performed by: Division of Pathology and Laboratory Medicine [address] Calcium Level (03/30/2021 11:04 AM [employer] ARCHITECT) P athologist Signature Calcium Lvl 8.8 8.4 - 10.2 [facility] mg/dL [facility] Specimen Anatomical Collection Method Collection Time Receive d Time (Source) Location / / Volume Laterality Blood 03/30/2021 11:04 03/30/2021 AM [employer] ARCHITECT 11:53 AM [employer] Narrative [facility] - 12:26 PM [employer] Schedule in Fast Track Jori Long NP LAB BLOOD ORDERABLES Performing Organization Address City/[facility]/ZIP [facility] [place] Number [facility] Unless otherwise noted, [address] all lab tests performed by: Division of Pathology and Laboratory Medicine [id number] Albumin Level (03/30/2021 11:04 AM [employer]) P athologist Signature Albumin Lvl 4.5 3.5 - 5.2 [facility] gm/dL [facility] Specimen Anatomical Collection Method Collection Time Receive d Time (Source) Location / / Volume Laterality Blood 03/30/2021 11:04 03/30/2021 AM [employer] 11:53 AM [employer] Narrative [facility] - 12:26 PM [employer] Schedule in Fast Track Jori Long NP LAB BLOOD ORDERABLES Performing Organization Address City/[facility]/ZIP [facility] [place] Phon [place] Number [facility] Unless otherwise noted, [address] all lab tests performed by: Division of Pathology and Laboratory Medicine [address] [place] [address] Electrolyte Panel (03/30/2021 11:04 AM [employer]) P athologist Signature Sodium Lvl 141 136 - 145 [facility] mEq/L [facility] Potassium Lvl 4.0 3.5 - 5.1 [facility] mEq/L [facility] Chloride 104 98 - 107 [facility] mEq/L [facility] CO2 27 22 - 29 [facility] mEq/L [facility] Anion Gap 10 4 - 14 [facility] mEq/L [facility] Specimen Anatomical Collection Method Collection Time Receive d Time (Source) Location / / Volume Laterality Blood 03/30/2021 11:04 03/30/2021 AM [employer] 11:53 AM [employer] Narrative [facility] - 12:26 PM [employer] Schedule in Fast Track Jori Long NP LAB BLOOD ORDERABLES Performing Organization Address City/State/ZIP Code Phon e Number [facility] CANCER Unless otherwise noted, [address] all lab tests performed by: Division of Pathology and Laboratory Medicine [address] [place] [address] after 02/10/2021 Care Teams Steward/Stewardess Third Relationship Specialty Start Date End Date Marck Greenberg MD PCP - General 06/21/[address] [place] [address] [id number] Jag Schmidt MD Physician 06/28/[address] [place] [address] [id number] Niharika Peraza MD Physician 06/28/[address] [place] [address] [id number] Anita Yancey MD Physician 06/28/15 [address] [facility] [phone] Fab Pena MD Physician 06/28/[address] [place] [address] [id number] Juan Hammonds MD Physician 06/28/15 Gurpreet Hernandez MD Physician 06/28/15 Heydi Dunlap PA Physician Behavioral Health Specialist 06/28/[address] [place] [address] [id number] Patsy Etienne PA Physician Behavioral Health Specialist 06/28/[address] [place] [address] [phone] Topher Johnson APN Nurse Practitioner 06/28/[address] [place] [address] [phone] Kori Allison AuD [employer] 06/28/[address] [place] [address] [phone] Michael Flowers MD Physician 06/28/[address] [place] [address] [phone] Maddy Winchester ENAMEL CRACKER Nurse Practitioner 06/28/15 Pedro Luis Meza MD Physician 06/28/[address] [address] Yuli Milligan NP Nurse Practitioner 06/28/[address] [place] [address] [phone] Kathi Lorenzo MD Physician 06/28/[address] [place] [address] [phone] Adria Alfaro MD Physician 06/28/[address] [place] [address] [id number] Marck Greenberg MD Physician 06/28/[address] [place] [address] [phone] Nina Graham, ENAMEL CRACKER Nurse Practitioner 06/28/[address] [place] [address] [phone] Rin Wren, XOCHITL Nurse Practitioner 06/28/[address] [place] [address] [phone] Suly Ochoa PA Physician Behavioral Health Specialist 06/28/[address] [place] [address] [id number] Lee العلي NP Nurse Practitioner 06/28/[address] [place] [address] [phone] Christianne Chaidez MD Physician 06/28/[address] [place] [address] [phone] Tommie Yanez PA Physician Behavioral Health Specialist 06/28/[address] [place] [address]. [place] [address] Marie Jung PA Physician Behavioral Health Specialist 06/28/[address] [place] [address] [phone] Alexandra Villegas NP Nurse Practitioner 06/28/[address] [place] [address] [phone] Graeme Damico MD Physician 06/28/[address] [place] [address] [phone] Chico Damico MD Physician 06/28/[address] [place] [address] [id number] Kristy Florez MD Physician 06/28/[address] [place] [address] [phone] Sony Rich MD Physician 06/28/[address] [place] [address] [phone] Sony Watson MD Physician 06/28/[address] [place] [address] [id number] Santino Alvarenga MD Physician 06/28/[address] [place] [address] [phone] Aurora Busby MD Physician 06/28/[address] [place] [address] [phone] Domenic Gordon MD Physician 06/28/15 Otis Busby MD Physician 06/28/[address] [place] [address] [phone]
--- OUTSIDE RECORDS SUMMARY | 2022-02-10 02:51 | XMS REPORT | Continuity of Care Document ---
:1985 Author Organization [facility] t Address [address] [place] [address] Care Team Providers Name Role Phone Marck Greenberg MD Primary Care Physician Soco Savage Attending Clinician Unavailable David Chung Attending Clinician MADDY SIMMS Attending Clinician Unavailable Maddy Simms MD Attending Clinician Shaylee Ross RN Attending Clinician Unavailable Jori Long NP Attending Clinician Nicki Scott Attending Clinician EARLE IVERSON Attending Clinician Unavailable Zayra MANAGER SOCIAL, Earle Attending Clinician Silvina House Attending Clinician Unavailable INOCENTE MEJIAS Attending Clinician Unavailable Shilpa Mason RN Attending Clinician Unavailable Ebrahim MANAGER SOCIAL, Truong Attending Clinician EBTRUONG MOHR Attending Clinician Unavailable Provider, [facility] Attending Clinician Unavailable Reji FNP, Tessa Rodriguez Attending Clinician TESSA MENDOZA Attending Clinician Unavailable Selena HAMILTON, Chika Attending Clinician Marques Mane MD Attending Clinician [facility]ending Clinician Unavailable Caleb Umana MD Attending Clinician Kanchan Downey MD Attending Clinician Jen Tsai MD Attending Clinician [phone] MD KANCHAN DOWNEY Attending Clinician Unavailable Tung HAMILTON, Isidro Rowe Attending Clinician Jasmeet Benedict MD Attending Clinician Erica HAMILTON, Yesi Muñoz Attending Clinician [phone] Diogo Blandon Attending Clinician Unavailable Kim Guevara MD Attending Clinician Karen Pineda MD Attending Clinician [facility] Attending Clinician Gabby García MA Attending Clinician Unavailable MD KAREN PINEDA Attending Clinician Unavailable KANCHAN DOWNEY Admitting Clinician Unavailable MD KANCHAN DOWNEY Admitting Clinician Unavailable JASMEET BENEDICT Admitting Clinician Unavailable KAREN PINEDA Admitting Clinician Unavailable MD KAREN PINEDA Admitting Clinician Unavailable Payers Payer Name Policy Type Policy Number Effective Date Expiration Date S aren Blue Cross 6 [id number] 2021 Common Spiri t Blue Shield of 00:00:00 [facility] [id number] 2021 00:00:00 [place] [id number] POS 00:00:00 JANE Walker [id number] 2020 [facility] 00:00:00 - [facility] Problems Condition Condition Condition Status Onset Resolution [...] in Anderso remission remission [facility] 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 (disorder) (disorder) Active Problem 09/01/2020 [facility] Stressful Stressful Problem Com mon life life Spirit events events - [facility] affecting affecting [facility] family and family and Ann Marie kes household household [facility] [id number] History of Problem Co mmon colon Spirit polyps - [facility] [id number] Right Problem Common anterior Spirit knee pain - [facility] 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 [id number] Elevated Problem Comm on blood Spirit pressure - [facility] reading [facility] diagnosis [facility] [place] hypertensi on Tinnitus Tinnitus Problem Commo n Spirit [facility] Hiatal Hiatal Problem Common hernia hernia [facility] [id number] Fatty Problem Common liver [facility] Palpitatio Palpitatio Problem C ommon ns ns [facility] [id number] Urgency-fr Problem Com mon equency [facility] syndrome [facility] [id number] Stress Problem Common incontinen Spirit ce [facility] [id number] Viral Problem Common illness [facility] [id number] Laryngitis Problem Com mon Spirit [facility] Gastritis Gastritis Problem Com mon 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 [id number] Autoimmune Problem Com mon disorder [facility] Essential Benign Problem Common hypertensi essential Spi rit on HTN [facility] [id number] Gait Problem Common instabilit Spirit y [facility] Gastroesop GERD Problem Commo n hageal (gastroeso Spirit reflux phageal - [facility] disease reflux St disease) [facility] Anxiety Anxiety Problem Common [facility] [id number] Mild Problem Common intermitte Spirit nt asthma - [facility] without complicati [facility] Dizziness Dizziness Problem Com mon [facility] [id number] Seasonal Problem Comm on allergies [facility] [id number] Neck pain Problem Comm on [facility] [id number] Constipati Problem Com mon on, Spirit unspecifie - CHI d [facility] constipati [facility] [id number] Attention Problem Comm on deficit Spirit hyperactiv - [facility] ity [facility] (ADHD), Medical combined Center type [id number] Adult Problem Common general [facility] medical - [facility] exam [facility] Rectal Rectal Problem Common bleeding bleeding [facility] [id number] Depression Problem Co mmon with [facility] anxiety [facility] [id number] Cough Problem Common [facility] Leukemia Leukemia Problem Commo n Spirit [facility] [id number] Acquired Problem Comm on hypothyroi [facility] dism [facility] [id number] Swelling Problem Commo n Spirit [facility] Allergic Allergic Problem Commo n rhinitis rhinitis [facility] [id number] Abnormal Problem Comm on ultrasound [facility] [id number] Iron Problem Common deficiency [facility] anemia, - [facility] unspecifie [facility] iron [facility] deficiency Medica l anemia Center type [id number] Lupus Problem Common [facility] [id number] Restless Problem Commo n legs 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 Murray mitchell (context-d (context-d ependent ependent category) category) Active Problem 02/04/2022 [facility] Headache Headache Problem Active 2022-02-04 Memoria (finding) (finding) 03:59:09 l Active Ricardo Problem 02/04/2022 [facility] Simple Simple Problem Active 2022-02-04 Unruly kieran obesity obesity 03:59:09 l (disorder) (disorder) He rmann Active Problem 02/04/2022 [facility] Backache Backache Problem Active 2022-02-04 Memoria (finding) (finding) 03:59:09 l Active Ricardo Problem 02/04/2022 [facility] Hemiplegia Hemiplegi Problem Active 2022-02-04 Memoria (disorder) a 03:59:09 l (disorder) [facility]chell Active Problem 02/04/2022 [facility] Visual Visual Problem Active 2022-02-04 Unruly kieran disturbanc disturbanc 03:59:09 l e e Ricardo (disorder) (disorder) Active Problem 02/04/2022 [facility] 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 03:59:09 l thy thy Ricardo (disorder) (disorder) Active Problem 02/04/2022 [facility] Disease Disease Problem Active 2022-02-04 Me moria caused by caused by 03:59:09 l 2018-nCoV nCo Herm zay Active Problem 02/04/2022 [facility] Disorienta Disorient Problem Active 2022-02-04 Memoria leon ated 03:59:09 l (finding) (finding) Herm zay Active Problem 02/04/2022 [facility] Hypothyroi Problem Active 2022-02-04 M emoria dism Hypothyroi 03:59:09 l (disorder) dism Murray n (disorder) Active Problem 02/04/2022 [facility] Seizure Seizure Problem Active 2022-02-04 Me moria disorder disorder 03:59:09 l (disorder) (disorder) He rmann Active Problem 02/04/2022 [facility] Syncope Syncope Problem Active 2022-02-04 Me moria (disorder) (disorder) 03:59:09 l Active [place] Problem 02/04/2022 [facility] Tremor Tremor Problem Active 2022-02-04 Mem oria (finding) (finding) 03:59:09 l Active [employer] [place] Problem 02/04/2022 [facility] No known No known Disease Unive rs active active ity of problems problems [facility] [place] [facility] Allergies, Adverse Reactions, Alerts Allergy Allergy Status Severity Reaction(s) Onset Inactive Treating Comm ents Source Name Type Date Date Clinician CEPHALEX DRUG Active High Hives Univers IN INGREDI 12-03 ity of 00:00: [place] 00 Medical Branch ONDANSET DRUG Active High Other-Cmnt Univ ers CLEO HCL INGREDI 12-03 ity of 00:00: [place] 00 Medical Branch Ondanset Drug Active Other - See migraines Univers cleo Hcl Allergy comments 12-03 ity of 00:00: 00 Medical Branch Zofran Propensi Active Other (See Bayl or Odt ty to Comments) 10-27 Philip adverse 00:00: of reaction 00 Medicin s to e drug Ferumoxy Propensi Active Anaphylaxis B aylor gilberto ty to 10-03 Philip adverse 00:00: of reaction 00 Medicin s [...] 2019-04 Vomiting1 Methodi ol ty to Comments) 0-15 st adverse 00:00: 8:30pm- Hospita reaction 00 [...] nce 00:00: iodine [place] 00 prior to MRI [facility] GADOBUTR DRUG Active High Other-Cmnt Univ ers OL INGREDI 2-22 ity of 00:00: [place] 00 Medical Branch CEFPODOX DRUG Active Med Hives Univers NANNETTE INGREDI 2-22 ity of 00:00: [place] 00 Medical Branch Gadobutr Propensi Active Other (See Vomiting1 [facility] ol ty to Comments) 06-12 Colleg [...] prior to MRI Latex Propensi Active Swelling [facility] ty to 06-12 Philip adverse 00:00: of reaction 00 Medicin s to e substanc e Cephalex Propensi Active Itching 2012-04 [facility] r in ty to 06-03 Philip adverse 00:00: of reaction 00 Medicin s to e drug LATEX DRUG Active High Rash Univers INGREDI 3-15 ity of 00:00: [address] Latex Drug Active Swelling Univers Allergy 3-15 ity of 00:00: [place] [facility] cephalex cephalex Active Memori a in in l Ricardo Latex Latex Active Memoria l [employer] [place] Gadavist Gadavist Active Memori a l Ricardo Zofran Zofran Active Memoria l Ricardo Feraheme Feraheme Active Memori a l Ricardo NO KNOWN Drug Active Univers ALLERGIE Class ity of S [facility] [place] [facility] cephalex cephalex Active Unknown Commo n in in [facility] 30 Drug Active Unknown Common allergy [facility] Family History Family Member Diagnosis Comments Start Date Stop Date Source Paternal grandfather [facility] [place] [facility] Social History Social Habit Start Date Stop Date Quantity Comments Source History of Common Spirit - Tobacco Use [facility] History SDOH University o f Alcohol Frequency [facility] edical Branch History SDOH University o f Alcohol Std [place] Medical Drinks Branch History SDOH University o f Alcohol Binge [place] Medic al Branch Exposure to Not sure University of SARS-CoV-2 [place] Medical (event) Branch Alcohol intake 2020-06-10 2020-06-10 Current drinker [facility] 00:00:00 00:00:00 of alcohol (finding) Tobacco use and 2020-02-21 2020-02-21 Never used [facility] Co llege of exposure 00:00:00 00:00:00 Medicine Alcohol Comment 2020-02-03 2020-02-[address] [facility] 00:00:00 00:00:00 Social History 2018-10-01 2018-10-01 [facility] 13:53:53 13:53:53 Sex Ass[birth year] At [birth year] [facility] [place] 00:00:00 00:00:00 Smoking Status Start Date Stop Date Source Tobacco smoking status [facility] Medications Ordered Filled Start Stop Current Ordering Indication Dosage Frequency Signature Comments Components Source Medication Medication Date Date Medication? Clinician (SIG) Name Name primidone 2021-04 Yes 50 mg = 1 Mem oria 50 mg oral 0-14 tab, PO, l tablet 15:22: Bedtime, # Rupal nn 00 30 tab, 3 Refill(s), [facility]acy: [facility] #[id number], 165.1, cm, 02/01/22 9:38:00 CDT, Height, 78.182, kg, 02/01/22 9:38:00 CDT, Weight Vyvanse 50 Vyvanse 50 2021-0 No 1{capsu QD Vyvanse 50 MG MG 9-21 le_in_t MG 00:00: he_morn 00 ing} rOPINIRole rOPINIRole No 1{table rOPINIRole HCl 0.5 MG HCl 0.5 MG 9-21 t} HCl 0.5 MG 00:00: 00 Vyvanse 50 Vyvanse 50 2021-0 No 1{capsu QD Vyvanse 50 MG MG 9-21 le_in_t MG 00:00: he_morn 00 ing} rOPINIRole rOPINIRole No 1{table rOPINIRole HCl 0.5 MG HCl 0.5 MG 9-21 t} HCl 0.5 MG 00:00: 00 Trokendi XR 2021- Yes 400 mg = 2 Memoria 200 mg oral 9-01 cap, PO, l capsule, 14:54: Daily, # Rupal nn extended 00 180 cap, 1 release Refill(s), Pharmacy: [facility] #[id number], 167.64, cm, 12/20/21 9:45:00 CDT, Height, 77.955, kg, 12/20/21 9:45:00 CDT, Weight Vyvanse 50 Vyvanse 50 2021-0 No 1{capsu QD Vyvanse 50 MG MG 7-06 le_in_t MG 00:00: he_morn 00 ing} Vyvanse 50 Vyvanse 50 2021-0 No 1{capsu QD Vyvanse 50 MG MG 7-06 le_in_t MG 00:00: he_morn 00 ing} Vyvanse 50 Vyvanse 50 2021-0 No 1{capsu QD Vyvanse 50 MG MG 7-06 le_in_t MG 00:00: he_morn 00 ing} Cheratussin Cheratussin 2-0 No 5{ml} Cheratussi AC 100-10 AC 100-10 2-22 n AC MG/5ML MG/5ML 00:00: 100-10 00 MG/5ML Cheratussin Cheratussin 2022-0 No 5{ml} Cheratussi AC 100-10 AC 100-10 2-22 n AC MG/5ML MG/5ML 00:00: 100-10 00 MG/5ML Cheratussin Cheratussin 2022-0 No 5{ml} Cheratussi AC 100-10 AC 100-10 2-22 n AC MG/5ML MG/5ML 00:00: 100-10 00 MG/5ML Cheratussin Cheratussin 2022-0 No 5{ml} Cheratussi AC 100-10 AC 100-10 2-22 n AC MG/5ML MG/5ML 00:00: 100-10 00 MG/5ML Cheratussin Cheratussin 2022-0 No 5{ml} Cheratussi AC 100-10 AC 100-10 2-22 n AC MG/5ML MG/5ML 00:00: 100-10 00 MG/5ML Cheratussin Cheratussin 2022-0 No 5{ml} Cheratussi AC 100-10 AC 100-10 2-22 n AC MG/5ML MG/5ML 00:00: 100-10 00 MG/5ML Cheratussin Cheratussin 2022-0 No 5{ml} Cheratussi AC 100-10 AC 100-10 2-22 n AC MG/5ML MG/5ML 00:00: 100-10 00 MG/5ML Cheratussin Cheratussin 2021-0 No 5{ml} Cheratussi AC 100-10 AC 100-10 2-22 n AC MG/5ML MG/5ML 00:00: 100-10 00 MG/5ML Azithromyci Azithromyci 2021-0 2022- No QD Azithromyc n 250 MG n 250 MG 06-12- in 250 MG 00:00: 00:00 00 :00 bromphenira 2021-0 Yes [id number] 5mL Take 5 mL Univers mine-pseudo 2-19 by mouth 4 it y of ephedrine-D 00:00[place] ([place] (BROMFED 00 times Medical DM) 230-10 daily as Bran ch mg/5 mL needed for syrup Congestion /Allergies . benzonatate Yes [id number] 200mg Take 2 Univers 100 mg 2-19 capsules ity of capsule 00:00: by mouth [place] 00 every 8 Medical (eight) Branch hours as needed for Cough. methylPREDN 0 Yes [id number] Take by Univers ISolone 2-19 mouth ity of (MEDROL, 00:00: SEE-INSTRU Raj as JUANI,) 4 mg 00 CTIONS. Medica l tablets follow Branch package directions bromphenira 2021-0 Yes [id number] 5mL Take 5 mL Univers mine-pseudo 2-19 by mouth 4 it y of ephedrine-D 00:00: (four[place] (BROMFED 00 times Medical DM) 230-10 daily as Bran ch mg/5 mL needed for syrup Congestion /Allergies . benzonatate 2021-0 Yes [id number] 200mg Take 2 Univers 100 mg 2-19 capsules ity of capsule 00:00: by mouth [place] 00 every 8 Medical (eight) Branch hours as needed for Cough. methylPREDN 2021-0 Yes [id number] Take by Univers ISolone 2-19 mouth ity of (MEDROL, 00:00: SEE-INSTRU Raj as JUANI,) 4 mg 00 CTIONS. Medica l tablets follow Branch package directions Bactrim DS Bactrim DS 2021- No 1{table BID Bactrim DS 800-160 MG 800-160 MG 05-16 t} 800-160 MG 00:00: 00:00 00 :00 Bactrim DS Bactrim DS 2021- No 1{table BID 800-160 MG 800-160 MG 05-16 t} 00:00: 00:00 00 :00 bromphenira 2020-04 Yes [id number] 5mL Take 5 mL Univers mine-pseudo 05-16 by mouth 4 it y of ephedrine-D 00:00: (four[place] (BROMFED 00 times Medical DM) 2-30-10 daily as Bran ch mg/5 mL needed for syrup Congestion /Allergies or Cough. bromphenira 2020-04- No [id number] 5mL Take 5 mL Univers mine-pseudo 05-16 by mouth 4 i ty of ephedrine-D 00:00: 00:00 (four) Raj as M (BROMFED 00 :00 times Medical DM) 2-30-10 daily as Bran ch mg/5 mL needed for syrup Congestion /Allergies or Cough. Vyvanse 50 Vyvanse 50 2020-04 No 1{capsu QD Vyvanse 50 MG MG 1-22 le_in_t MG 00:00: he_morn 00 ing} Vyvanse 50 Vyvanse 50 2020-04 No 1{capsu QD Vyvanse 50 MG MG 1-22 le_in_t MG 00:00: he_morn 00 ing} Vyvanse 50 Vyvanse 50 2020-04 No 1{capsu QD Vyvanse 50 MG MG 1-22 le_in_t MG 00:00: he_morn 00 ing} Vyvanse 50 Vyvanse 50 2020-04 No 1{capsu QD Vyvanse 50 MG MG 1-22 le_in_t MG 00:00: he_morn 00 ing} hydrOXYchlo 2020-04 Yes 200mg Take 200 U nivers roQUINE 200 0-12 mg by ity of mg tablet 00:00: mouth 2 [place] 00 (two) Medical times Branch daily. hydrOXYchlo 2020-04 [...] mouth 2 (two) Medical times Branch daily. ELIQUIS 5 0 Yes Univers mg tablet 01-05 ity of 00:00: [place] 00 Medical Branch ELIQUIS 5 2020-0 Yes Univers mg tablet 01-05 ity of 00:00: [place] [facility] ELIQUIS 5 2020-0 Yes Univers mg tablet 01-05 ity of 00:00: [place] 00 Medical Branch ELIQUIS 5 2020-0 Yes Univers mg tablet 01-05 ity of 00:00: [place] 00 Medical Branch VYVANSE 50 0 Yes 50mg Take 50 mg U nivers mg capsule 9-13 by mouth ity o f 00:00: every [place] 00 morning. Medical Branch VYVANSE 50 0 Yes 50mg Take 50 mg U nivers mg capsule 9-13 by mouth ity o f 00:00: every [place] morning. Medical Branch VYVANSE 50 0 Yes 50mg Take 50 mg U nivers mg capsule 9-13 by mouth ity o f 00:00: every [place] morning. Medical Branch VYVANSE 50 0 Yes 50mg Take 50 mg U nivers mg capsule 9-13 by mouth ity o f 00:00: every [place] morning. Medical Branch levothyroxi Yes TAKE 1 Univ ers ne 75 mcg 9-10 TABLET BY ity o f tablet 00:00: MOUTH [place] 00 EVERY DAY Medical IN THE Branch MORNING ON AN EMPTY STOMACH levothyroxi 0 Yes TAKE 1 Univ ers ne 75 mcg 9-10 TABLET BY ity o f tablet 00:00: MOUTH [place] 00 EVERY DAY Medical IN THE Branch MORNING ON AN EMPTY STOMACH levothyroxi 0 Yes TAKE 1 Univ ers ne 75 mcg 9-10 TABLET BY ity o f tablet 00:00: MOUTH [place] 00 EVERY DAY Medical IN THE [place] MORNING ON AN EMPTY STOMACH levothyroxi Yes TAKE 1 [facility] ers ne 75 mcg 9-10 TABLET BY ity o f tablet 00:00: MOUTH EVERY DAY Medical IN THE [place] MORNING ON AN EMPTY STOMACH morpHINE 2020- No 4mg 4 mg, Slow Un pau injection 4 12-05 IV Push, ity of mg 02:30: 01:45 ONCE, 1 [place] 00 :00 dose, Mon Medical 12/04/20 at [place] 2130, STAT proMETHazin 2020- No 25mg 25 mg, IV Univers e 12-05 Piggyback, ity of (PHENERGAN) 02:30: 02:30 [place]CE, 1 [place] 25 mg in 00 :00 dose, Mon Medica l NaCl 0.9% 12/04/20 at [facility] (NS) 50 mL 213, 50 piggyback mL NaCl 0.9% 2020- No 500mL at [address] [place] [address] ers (NS) bolus 12-05 mL/hr, 500 it y of infusion 02:30: 04:34 mL, IV [place] 500 mL 00 :00 Piggyback, Medical ONCE, 1 [place] dose, [facility] 12/04/20 at 2130, STAT iopamidol 2020- No [id number] 120mL 120 mL, Univers (ISOVUE 12-05 Intravenou ity o f 370-500 mL) 02:02: 02:05 s, ONCE, 1 [place] injection 00 :00 dose, Mon Medic al 120 mL 12/04/20 at [place] 2115, Routine proMETHazin 2020- No [id number] 25mg Univers e 12-04 ity of (PHENERGAN) 01:00: 01:03 [place] injection 00 :00 Medical 25 mg [place] proMETHazin 2020- No [id number] 25mg 25 mg, Univers e 12-04 Intramuscu ity of (PHENERGAN) 01:00: 01:03 lar, ONCE, [place] injection 00 :00 1 dose, Medical 25 mg [facility] 12/03/20 at 2000, Routine proMETHazin 2020- No [id number] 25mg Univers e 12-04 ity of (PHENERGAN) 01:00: 01:03 [place] injection 00 :00 Medical 25 mg Branch proMETHazin 0 2020- No [id number] 25mg 25 mg, Univers e 12-04 Intramuscu ity of (PHENERGAN) 01:00: 01:03 lar, ONCE, [place] injection 00 :00 1 dose, Medical 25 mg [place] 12/03/20 at 2000, Routine Bacillus 2020- Yes [facility] Coagulans-I 10-27 [facility] 11:49: of (ALIGN 52 Medicin PREBIOTIC-P e ROBIOTIC OR) EpiPen EpiPen 2020-0 No EpiPen 2-Juani 0.3 2-Juani 0.3 6-30 2-Juani 0.3 MG/0.3ML MG/0.3ML 00:00: MG/0.3ML 00 EpiPen EpiPen 2020-0 No EpiPen 2-Juani 0.3 2-Juani 0.3 6-30 2-Juani 0.3 MG/0.3ML MG/0.3ML 00:00: MG/0.3ML 00 EpiPen EpiPen 2020-0 No EpiPen 2-Juani 0.3 2-Juani 0.3 6-30 2-Juani 0.3 MG/0.3ML MG/0.3ML 00:00: MG/0.3ML 00 EpiPen EpiPen 2020-0 No EpiPen 2-Juani 0.3 2-Juani 0.3 6-30 2-Juani 0.3 MG/0.3ML MG/0.3ML 00:00: MG/0.3ML 00 EpiPen EpiPen 2020-0 No EpiPen 2-Juani 0.3 2-Juani 0.3 6-30 2-Juani 0.3 MG/0.3ML MG/0.3ML 00:00: MG/0.3ML 00 EpiPen EpiPen 2020-0 No EpiPen 2-Juani 0.3 2-Juani 0.3 6-30 2-Juani 0.3 MG/0.3ML MG/0.3ML 00:00: MG/0.3ML 00 EpiPen EpiPen 2020-0 No EpiPen 2-Juani 0.3 2-Juani 0.3 6-30 2-Juani 0.3 MG/0.3ML MG/0.3ML 00:00: MG/0.3ML 00 EpiPen EpiPen 1-0 No 2-Juani 0.3 2-Juani 0.3 6-30 MG/0.3ML MG/0.3ML 00:00: 00 EpiPen EpiPen 2021-0 No EpiPen 2-Juani 0.3 2-Juani 0.3 6-30 2-Juani 0.3 MG/0.3ML MG/0.3ML 00:00: MG/0.3ML 00 EpiPen EpiPen 1-0 No EpiPen 2-Juani 0.3 2-Juani 0.3 6-30 2-Juani 0.3 MG/0.3ML MG/0.3ML 00:00: MG/0.3ML 00 EpiPen EpiPen 1-0 No EpiPen 2-Juani 0.3 2-Juani 0.3 6-30 2-Juani 0.3 MG/0.3ML MG/0.3ML 00:00: MG/0.3ML 00 EpiPen EpiPen 1-0 No EpiPen 2-Juani 0.3 2-Juani 0.3 6-30 2-Juani 0.3 MG/0.3ML MG/0.3ML 00:00: MG/0.3ML 00 EpiPen EpiPen 1-0 No EpiPen 2-Juani 0.3 2-Juani 0.3 6-30 2-Juani 0.3 MG/0.3ML MG/0.3ML 00:00: MG/0.3ML 00 EpiPen EpiPen 1-0 No EpiPen 2-Juani 0.3 2-Juani 0.3 6-30 2-Juani 0.3 MG/0.3ML MG/0.3ML 00:00: MG/0.3ML 00 EpiPen EpiPen 2021-0 No EpiPen 2-Juani 0.3 2-Juani 0.3 6-30 2-Juani 0.3 MG/0.3ML MG/0.3ML 00:00: MG/0.3ML 00 EpiPen EpiPen 2021-0 No EpiPen 2-Juani 0.3 2-Juani 0.3 6-30 2-Juani 0.3 MG/0.3ML MG/0.3ML 00:00: MG/0.3ML 00 Levocetiriz Levocetiriz 2021- No 1{table QD Levocetiri ine ine 10-18 t} zine Dihydrochlo Dihydrochlo 00:00: 00:00 Dihydrochl ride 5 MG ride 5 MG 00 :00 oride 5 MG Levocetiriz Levocetiriz 2021- No 1{table QD Levocetiri ine ine 10-18 t} zine Dihydrochlo Dihydrochlo 00:00: 00:00 Dihydrochl ride 5 MG ride 5 MG 00 :00 oride 5 MG Levocetiriz Levocetiriz 202- No 1{table QD Levocetiri ine ine 10-18 t} zine Dihydrochlo Dihydrochlo 00:00: 00:00 Dihydrochl ride 5 MG ride 5 MG 00 :00 oride 5 MG Hydroxychlo Yes 200 mg = 1 Memoria roquine 6-24 tab, PO, l Sulfate 200 20:11: Daily, 0 He rmann MG Oral 00 Refill(s) Tablet hydroxychlo Yes 200 mg = 1 Memoria roquine 6-24 tab, PO, l sulfate 200 20:11: Daily, 0 He rmann mg oral 00 Refill(s) tablet Hydroxychlo 2020-0 Yes 200 mg = 1 Memoria roquine 6-24 tab, PO, l Sulfate 200 20:11: Daily, 0 He rmann MG Oral 00 Refill(s) Tablet 24 HR Yes 400 mg = 2 Memori a topiramate 6-24 cap, PO, l 200 MG 20:06: Bedtime, # Rupal nn Extended 00 180 cap, 2 Release Refill(s), Capsule Pharmacy: [[facility] #[id number], 167.64, cm, 10/12/20 14:33:00 CDT, Height, 86.818, kg, 10/12/20 14:33:00 CDT, Weight 24 HR Yes 400 mg = 2 Memori a topiramate 6-24 cap, PO, l 200 MG 20:06: Bedtime, # Rupal nn Extended 00 180 cap, 2 Release Refill(s), Capsule Pharmacy: [[facility] #[id number], 167.64, cm, 10/12/20 14:33:00 CDT, Height, 86.818, kg, 10/12/20 14:33:00 CDT, Weight omeprazole Yes TAKE ONE Mem oria 40 mg oral 6-24 CAPSULE BY l delayed 19:42: MOUTH [place] release 00 EVERY capsule MORNING mesalamine Yes TAKE 2 Memor ia 500 MG 6-24 CAPSULES l Extended 19:42: BY MOUTH Rupal nn Release 00 TWICE Capsule DAILY [[facility]] omeprazole Yes TAKE ONE Mem oria 40 mg oral 6-24 CAPSULE BY l delayed 19:42: MOUTH [employer] [place] release 00 EVERY capsule MORNING mesalamine Yes TAKE 2 Memor ia 500 MG 6-24 CAPSULES l Extended 19:42: BY MOUTH Rupal nn Release 00 TWICE Capsule DAILY [Pentasa] Famotidine No 0 Memoria 40 MG Oral 6-24 Refill(s) l Tablet 19:41: Ricardo 00 linaclotide Yes 145 Memori a 0.145 MG 6-24 microgram l Oral 19:41: = 1 cap, [employer] [place] Capsule 00 PO, Daily, [Linzess] 30 minutes prior to the first meal of the day, # 30 cap, 0 Refill(s) Famotidine No 0 Memoria 40 MG Oral 6-24 Refill(s) l Tablet 19:41: Ricardo 00 linaclotide Yes 145 Memori a 0.145 MG 6-24 microgram l Oral 19:41: = 1 cap, [employer] [place] Capsule 00 PO, Daily, [Linzess] 30 minutes prior to the first meal of the day, # 30 cap, 0 Refill(s) hydroxychlo Yes [id number] 200mg Take 1 [facility] roquine 5-28 Tablet by Philip (PLAQUINIL) 00:00: mouth two o f 200 MG 00 times Medicin tablet daily. e Bacillus Yes Arya Coagulans-I 5-21 Philip nulin 10:19: of (ALIGN 56 Medicin PREBIOTIC-P e ROBIOTIC OR) predniSONE Yes 15mg Take 3 [facility] (DELTASONE) 5-21 Tablets by [facility] 5 MG tablet 00:00: mouth of 00 daily. Medicin e predniSONE 2020-0 Yes 15mg Take 3 [facility] (DELTASONE) 5-21 Tablets by [facility] 5 MG tablet 00:00: mouth of 00 daily. Medicin e 24 HR 2020-0 Yes 200 mg = 1 Memori a topiramate 5-11 cap, PO, l 200 MG 21:45: Daily, # [employer] [place] Extended 00 90 cap, 2 Release Refill(s), Capsule Pharmacy: [[facility]] [facility], 167.64, cm, 04/19/20 14:37:00 UX DESIGN LEAD, Height, 87.273, kg, 08/29/20 16:36:00 CDT, Weight 24 HR 2020-0 Yes 200 mg = 1 Memori a topiramate 5-11 cap, PO, l 200 MG 21:45: Daily, # [employer] [place] Extended 00 90 cap, 2 Release Refill(s), Capsule Pharmacy: [[facility]] [facility], 167.64, cm, 04/19/20 14:37:00 [employer] LEAD, Height, 87.273, kg, 08/29/20 16:36:00 CDT, Weight apixaban 5 2020-0 Yes 5 mg, PO, Me moria MG Oral 5-11 Q12H, # 60 l Tablet 21:43: tab, 0 [employer] [place] [Eliquis] 00 Refill(s), Pharmacy: [facility], 167.64, cm, 04/19/20 14:37:00 [employer]X 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, Height, 87.273, kg, 08/29/20 16:36:00 CDT, Weight Eliquis 5 2020-0 Yes 5 mg, PO, Mem oria mg oral 5-11 Q12H, # 60 l tablet 21:43: tab, 0 [employer] [place] 00 Refill(s), Pharmacy: [facility], 167.64, cm, 04/19/20 14:37:00 [employer]X DESIGN LEAD, Height, 87.273, kg, 08/29/20 16:36:00 CDT, Weight apixaban 5 2020-0 Yes 5 mg, PO, Me moria MG Oral 5-11 Q12H, # 60 l Tablet 21:43: tab, 0 [employer] [place] [Eliquis] 00 Refill(s), Pharmacy: [facility], 167.64, cm, 04/19/20 14:37:00 UX DESIGN LEAD, Height, 87.273, kg, 08/29/20 16:36:00 CDT, Weight [...] 30 tab, 0 Refill(s) linaCLOtide 0 Yes [facility] (LINZESS) 4-30 College 145 MCG 00:00: of CAPS 00 Medicin e linaCLOtide 2020-0 Yes [facility] (LINZESS) 4-30 College 145 MCG 00:00: of CAPS 00 Medicin e Mesalamine 2020-0 Yes [facility] (PENTASA) 4-28 [facility] 00 Medicin e Mesalamine 2020-0 Yes [facility] (PENTASA) 4-28 [facility] 00 Medicin e ELIQUIS 5 2020-0 Yes [facility] MG TABS 4-22 College 00:00: of 00 Medicin e ELIQUIS 5 2020-0 Yes [facility] MG TABS 4-22 College 00:00: of 00 Medicin e Levothyroxi Levothyroxi 0 No QD Levothyrox ne Sodium ne Sodium 4-07 ine Sodium 50 MCG 50 MCG 00:00: 50 MCG 00 Levothyroxi Levothyroxi 0 No QD Levothyrox ne Sodium ne Sodium 4-07 ine Sodium 50 MCG 50 MCG 00:00: 50 MCG 00 Levothyroxi Levothyroxi 0 No QD Levothyrox ne Sodium ne Sodium 4-07 ine Sodium 50 MCG 50 MCG 00:00: 50 MCG 00 Levothyroxi Levothyroxi 0 No QD Levothyrox ne Sodium ne Sodium 4-07 ine Sodium 50 MCG 50 MCG 00:00: 50 MCG 00 Levothyroxi Levothyroxi No QD Levothyrox ne Sodium ne Sodium 4-07 ine Sodium 50 MCG 50 MCG 00:00: 50 MCG 00 Levothyroxi Levothyroxi No QD Levothyrox ne Sodium ne Sodium 4-07 ine Sodium 50 MCG 50 MCG 00:00: 50 MCG 00 Levothyroxi Levothyroxi No QD Levothyrox ne Sodium ne Sodium 4-07 ine Sodium 50 MCG 50 MCG 00:00: 50 MCG 00 Levothyroxi Levothyroxi No QD ne Sodium ne Sodium 4-07 50 MCG 50 MCG 00:00: 00 Levothyroxi Levothyroxi No QD Levothyrox ne Sodium ne Sodium 4-07 ine Sodium 50 MCG 50 MCG 00:00: 50 MCG 00 Levothyroxi Levothyroxi No QD Levothyrox ne Sodium ne Sodium 4-07 ine Sodium 50 MCG 50 MCG 00:00: 50 MCG 00 Levothyroxi Levothyroxi No QD Levothyrox ne Sodium ne Sodium 4-07 ine Sodium 50 MCG 50 MCG 00:00: 50 MCG 00 Levothyroxi Levothyroxi No QD Levothyrox ne Sodium ne Sodium 4-07 ine Sodium 50 MCG 50 MCG 00:00: 50 MCG 00 Levothyroxi Levothyroxi No QD Levothyrox ne Sodium ne Sodium 4-07 ine Sodium 50 MCG 50 MCG 00:00: 50 MCG 00 Levothyroxi Levothyroxi No QD Levothyrox ne Sodium ne Sodium 4-07 ine Sodium 50 MCG 50 MCG 00:00: 50 MCG 00 Levothyroxi Levothyroxi No QD Levothyrox ne Sodium ne Sodium 4-07 ine Sodium 50 MCG 50 MCG 00:00: 50 MCG 00 Levothyroxi Levothyroxi No QD Levothyrox ne Sodium ne Sodium 4-07 ine Sodium 50 MCG 50 MCG 00:00: 50 MCG 00 levothyroxi Yes TAKE 1 [facility]l or ne 4-07 TABLET BY Philip (SYNTHROID) 00:00: MOUTH of 50 MCG 00 EVERY DAY Medicin tablet IN THE e MORNING ON AN EMPTY STOMACH levothyroxi Yes TAKE 1 Bayl or ne 4-07 TABLET BY Philip (SYNTHROID) 00:00: MOUTH of 50 MCG 00 EVERY DAY Medicin tablet IN THE e MORNING ON AN EMPTY STOMACH Gabapentin Gabapentin 2021-0 No 1{capsu QD Gabapentin 300 MG 300 MG 3-30 le} 300 MG 00:00: 00 Gabapentin Gabapentin 2021-0 No 1{capsu QD Gabapentin 300 MG 300 MG 3-30 le} 300 MG 00:00: 00 Gabapentin Gabapentin 2021-0 No 1{capsu QD Gabapentin 300 MG 300 MG 3-30 le} 300 MG 00:00: 00 Gabapentin Gabapentin 2021-0 No 1{capsu QD Gabapentin 300 MG 300 MG 3-30 le} 300 MG 00:00: 00 Gabapentin Gabapentin 2021-0 No 1{capsu QD Gabapentin 300 MG 300 MG 3-30 le} 300 MG 00:00: 00 Gabapentin Gabapentin 2021-0 No 1{capsu QD Gabapentin 300 MG 300 MG 3-30 le} 300 MG 00:00: 00 Gabapentin Gabapentin 2021-0 No 1{capsu QD Gabapentin 300 MG 300 MG 3-30 le} 300 MG 00:00: 00 Gabapentin Gabapentin 2021-0 No 1{capsu QD 300 MG 300 MG 3-30 le} 00:00: 00 Gabapentin Gabapentin 2021-0 No 1{capsu QD Gabapentin 300 MG 300 MG 3-30 le} 300 MG 00:00: 00 Gabapentin Gabapentin 2021-0 No 1{capsu QD Gabapentin 300 MG 300 MG 3-30 le} 300 MG 00:00: 00 Gabapentin Gabapentin 2021-0 No 1{capsu QD Gabapentin 300 MG 300 MG 3-30 le} 300 MG 00:00: 00 Gabapentin Gabapentin 2021-0 No 1{capsu QD Gabapentin 300 MG 300 MG 3-30 le} 300 MG 00:00: 00 Gabapentin Gabapentin 2021-0 No 1{capsu QD Gabapentin 300 MG 300 MG 3-30 le} 300 MG 00:00: 00 Gabapentin Gabapentin 2021-0 No 1{capsu QD Gabapentin 300 MG 300 MG 3-30 le} 300 MG 00:00: 00 Gabapentin Gabapentin 2021-0 No 1{capsu QD Gabapentin 300 MG 300 MG 3-30 le} 300 MG 00:00: 00 Gabapentin Gabapentin 2021-0 No 1{capsu QD Gabapentin 300 MG 300 MG 3-30 le} 300 MG 00:00: 00 TROKENDI XR 2021-0 Yes 200mg 200 mg. [facility] 100 MG [facility] 3-16 Philip 00:00: Medicin e TROKENDI XR 2020-0 Yes 400mg 400 mg. Ba ylor 100 MG [facility] 3-16 Philip 00:00: Medicin e topiramate 2020-0 Yes 400mg 400 mg. Uni vers (TROKENDI 3-16 ity of XR) 100 mg 00:00: [address] topiramate 2020-0 Yes 400mg 400 mg. Uni vers (TROKENDI 3-16 ity of XR) 100 mg 00:00: [address] topiramate 2020-0 Yes 400mg 400 mg. Uni vers (TROKENDI 3-16 ity of XR) 100 mg 00:00: [address] topiramate 2020-0 Yes 400mg 400 mg. Uni vers (TROKENDI 3-16 ity of XR) 100 mg 00:00: [address] famotidine 2020-0 Yes 40mg 40 mg. [...] 18:53: daily. Hospita tablet 53 l acetaminoph 2021-0 Yes 500mg Q6H Take 500 M ethodi [...] 50 MG 53 morning. l capsule famotidine 2021-0 Yes 20mg QD Take 20 mg M ethodi (PEPCID) 20 2-[address] MG tablet 18:53: daily. Hospit a 53 l montelukast 2021-0 Yes 10mg QD Take 10 mg [facility] (SINGULAIR) 2-[address] 10 mg 18:53: daily. Hospita tablet 53 l acetaminoph 2021-0 Yes 500mg Q6H Take 500 M ethodi [...] 50 MG 53 morning. l capsule famotidine 2021-0 Yes 20mg QD Take 20 mg M ethodi (PEPCID) 20 2-[address] MG tablet 12:53: daily. Hospit a 53 l montelukast 2021-0 Yes 10mg QD Take 10 mg [facility] (SINGULAIR) 2-[address] 10 mg 12:53: daily. Hospita tablet 53 l acetaminoph 2021-0 Yes 500mg Q6H Take 500 M ethodi [...] 12:53: daily. Hospit a 53 l montelukast 2020-0 Yes 10mg QD Take 10 mg [facility] (SINGULAIR) 2-[address] 10 mg 12:53: daily. Hospita tablet 53 l acetaminoph 2020-0 [...] 12:53: daily. Hospit a 53 l montelukast 1-0 Yes 10mg QD Take 10 mg [facility] (SINGULAIR) 2-[address] 10 mg 12:53: daily. Hospita tablet 53 l 24 HR 2020-1 Yes 100 mg = 1 Memori a topiramate 2-30 cap, PO, l 100 MG 21:09: Bedtime, # Rupal nn Extended 00 90 cap, 2 Release Refill(s), Capsule Pharmacy: [[facility] #[id number], 167.64, cm, 04/19/20 14:37:00 [employer] DES[employer] LEAD, Height, 104.545, kg, 04/19/20 14:37:00 [employer], Weight 24 HR 2019-04 Yes 100 mg = 1 Memori a topiramate 2-30 cap, PO, l 100 MG 21:09: Bedtime, # Rupal 00 90 cap, 2 Release Refill(s), Capsule Pharmacy: [[facility] #[id number], 167.64, cm, 04/19/20 14:37:00 [employer] DES[employer] LEAD, Height, 104.545, kg, 04/19/20 14:37:00 [employer], Weight Famotidine 2019-04 Yes 40 mg, PO, M emoria 2-30 Daily, # l 20:40: 60 tab, 0 [employer] [place] 00 Refill(s) Nulev 2019-04 Yes 0.125 mg, Memoria 2-30 PO, QID, 0 l 20:40: Refill(s) Famotidine 2019-04 Yes 40 mg, PO, M emoria 2-30 Daily, # l 20:40: 60 tab, 0 Ricardo 00 Refill(s) Nulev 2019-04 Yes 0.125 mg, Memoria 2-30 PO, QID, 0 l 20:40: Refill(s) [employer] [place] 00 Reglan 2019-04 Yes 0 Memoria 1-10 Refill(s) l 18:04: [employer] [place] Reglan 2019-04 Yes 0 Memoria 1-10 Refill(s) l 18:04: [employer] [place] 00 metoclopram 2019-04- No 1{tbl} Take 1 M ethodi dung HCl 1-10 -[address] (REGLAN 00:00: 00:00 mouth as Hospi ta ORAL) 00 :00 needed. l metoclopram 2019-04 No 1{tbl} Take 1 M ethodi dung HCl 1-10 -[address] (REGLAN 00:00: 00:00 mouth as Hospi ta ORAL) 00 :00 needed. l metoclopram 2019-04- No 1{tbl} Take 1 M ethodi dung HCl 1-10 02-[address] (REGLAN 00:00: 00:00 mouth as Hospi ta ORAL) 00 :00 needed. l esomeprazol 2019-04 Yes [facility] e (NEXIUM) 0-30 College 40 MG 00:00: of capsule 00 Medicin e esomeprazol 2019-04 Yes Arya e (NEXIUM) 0-30 College 40 MG 00:00: of capsule 00 Medicin e esomeprazol 2019-04 Yes [facility]iver [facility] 40 mg 0-30 ity of capsule 00:00: [address] [place] esomeprazol 2019-04 Yes Univer s e 40 mg 0-30 ity of capsule 00:00: [address] [place] esomeprazol 2019-04 Yes Univer s e 40 mg 0-30 ity of capsule 00:00: [address] [place] esomeprazol 2019-04 Yes Univer s e 40 mg 0-30 ity of capsule 00:00: [address] [place] omeprazole 2019-04- No 20mg QD Take 1 Meth tanvi OTC 0-18 03- tablet (20 st (PriLOSEC 00:00: 05:59 mg [...] for 30 days. metoclopram 2019-04- No 5mg [id number] Take 1 [facility] dung 0-28 - [id number] tablet (5 st (Reglan) 5 00:00: 05:59 3D mg total) H ospita MG tablet 00 :00 by mouth 3 l (three) times a day as needed (nausea, vomiting) for up to 5 days. metoclopram 2019-04- No 5mg [id number] Take 1 [facility] dung 0-28 - [id number] tablet (5 st (Reglan) 5 00:00: 05:59 [...] it last week - unknown reason); (per [place] [facility], last filled 12/18/19, quantity: 30, day supply: 30) lisdexamfet 2019-04- No 40mg QD Take 40 mg [facility] amine 0-26 10-[address] (VYVANSE) 18:16: 00:00 daily. Hospi ta 40 MG 29 :00 (per l capsule patient, stopped taking it last week - unknown reason); (per [place] [facility], last filled 12/18/19, [...] MOUTH Medicin tablet ONCE A e DAY. Reglan 10 Reglan 2019-04 No 1{table TID Reglan 10 MG MG 0-21 t_befor MG 00:00: e_meals 00 } Pantoprazol Pantoprazol 2019-04 No 1{table QD Pantoprazo e Sodium 40 e Sodium 40 0-21 t} le Sodium MG MG 00:00: 40 MG 00 Reglan 10 Reglan 10 2019-04 No 1{table TID Reglan 10 MG MG 0-21 t_befor MG 00:00: e_meals 00 } Pantoprazol Pantoprazol 2019-04 No 1{table QD Pantoprazo e Sodium 40 e Sodium 40 0-21 t} le Sodium MG MG 00:00: 40 MG 00 Pantoprazol Pantoprazol 2019-04 No 1{table QD Pantoprazo e Sodium 40 e Sodium 40 0-21 t} le Sodium MG MG 00:00: 40 MG 00 Reglan 10 Reglan 10 2019-04 No 1{table TID Reglan 10 MG MG 0-21 t_befor MG 00:00: e_meals 00 } Pantoprazol Pantoprazol 2019-04 No 1{table QD Pantoprazo e Sodium 40 e Sodium 40 0-21 t} le Sodium MG MG 00:00: 40 MG 00 Reglan 10 Reglan 10 2019-04 No 1{table TID Reglan 10 MG MG 0-21 t_befor MG 00:00: e_meals 00 } Reglan 10 Reglan 10 2019-04 No 1{table TID Reglan 10 MG MG 0-21 t_befor MG 00:00: e_meals 00 } Pantoprazol Pantoprazol 2019-04 No 1{table QD Pantoprazo e Sodium 40 e Sodium 40 0-21 t} le Sodium MG MG 00:00: 40 MG 00 Reglan 10 Reglan 10 2019-04 No 1{table TID Reglan 10 MG MG 0-21 t_befor MG 00:00: e_meals 00 } Pantoprazol Pantoprazol 2019-04 No 1{table QD Pantoprazo e Sodium 40 e Sodium 40 0-21 t} le Sodium MG MG 00:00: 40 MG 00 Pantoprazol Pantoprazol 2019-04 No 1{table QD Pantoprazo e Sodium 40 e Sodium 40 0-21 t} le Sodium MG MG 00:00: 40 MG 00 Reglan 10 Reglan 2019-04 No 1{table TID Reglan 10 MG MG 0-21 t_befor MG 00:00: e_meals 00 } Pantoprazol Pantoprazol 2019-04 No 1{table QD e Sodium 40 e Sodium 40 0-21 t} MG MG 00:00: 00 Reglan 10 Reglan 10 2019-04 No 1{table TID MG MG 0-21 t_befor 00:00: e_meals 00 } Pantoprazol Pantoprazol 2019-04 No 1{table QD Pantoprazo e Sodium 40 e Sodium 40 0-21 t} le Sodium MG MG 00:00: 40 MG 00 Reglan 10 Reglan 10 2019-04 No 1{table TID Reglan 10 MG MG 0-21 t_befor MG 00:00: e_meals 00 } Reglan 10 Reglan 10 2019-04 No 1{table TID Reglan 10 MG MG 0-21 t_befor MG 00:00: e_meals 00 } Pantoprazol Pantoprazol 2019-04 No 1{table QD Pantoprazo e Sodium 40 e Sodium 40 0-21 t} le Sodium MG MG 00:00: 40 MG 00 Reglan 10 Reglan 10 2019-04 No 1{table TID Reglan 10 MG MG 0-21 t_befor MG 00:00: e_meals 00 } Pantoprazol Pantoprazol 2019-04 No 1{table QD Pantoprazo e Sodium 40 e Sodium 40 0-21 t} le Sodium MG MG 00:00: 40 MG 00 Pantoprazol Pantoprazol 2019-04 No 1{table QD Pantoprazo e Sodium 40 e Sodium 40 0-21 t} le Sodium MG MG 00:00: 40 MG 00 Reglan 10 Reglan 10 2019-04 No 1{table TID Reglan 10 MG MG 0-21 t_befor MG 00:00: e_meals 00 } Pantoprazol Pantoprazol 2019-04 No 1{table QD Pantoprazo e Sodium 40 e Sodium 40 0-21 t} le Sodium MG MG 00:00: 40 MG 00 Reglan 10 Reglan 2019-04 No 1{table TID Reglan 10 MG MG 0-21 t_befor MG 00:00: e_meals 00 } Pantoprazol Pantoprazol 2019-04 No 1{table QD Pantoprazo e Sodium 40 e Sodium 40 0-21 t} le Sodium MG MG 00:00: 40 MG 00 Reglan 10 Reglan 10 2019-04 No 1{table TID Reglan 10 MG MG 0-21 t_befor MG 00:00: e_meals 00 } Reglan 10 Reglan 10 2019-04 No 1{table TID Reglan 10 MG MG 0-21 t_befor MG 00:00: e_meals 00 } Pantoprazol Pantoprazol 2019-04 No 1{table QD Pantoprazo e Sodium 40 e Sodium 40 0-21 t} le Sodium MG MG 00:00: 40 MG 00 Reglan 10 Reglan 10 2019-04 No 1{table TID Reglan 10 MG MG 0-21 t_befor MG 00:00: e_meals 00 } Pantoprazol Pantoprazol 2019-04 No 1{table QD Pantoprazo e Sodium 40 e Sodium 40 0-21 t} le Sodium MG MG 00:00: 40 MG 00 metoclopram 2019-04 Yes Arya dung 0-21 College (REGLAN) 10 00:00: of MG tablet 00 Medicin e albuterol 2019-04 Yes INHALE 1-2 Ba [facility]lor 108 (90 0-21 PUFFS PO College base) 00:00: EVERY 4-6 of mcg/act 00 HOURS Medicin inhaler e albuterol 2019-04 Yes INHALE 1-2 Ba [facility] 108 (90 0-21 PUFFS PO College base) 00:00: EVERY 4-6 of mcg/act 00 HOURS Medicin inhaler e metoclopram 2019-04- [facility] r dung 0-21 07-09 College (REGLAN) 10 00:00: 00:00 of MG tablet 00 :00 Medicin e topiramate 2019-04- 1{capsu QD Take 1 M ethodi (Trokendi [...] - per patient) metoclopram 2019-04- No 5mg [id number] Take 1 [facility] dung 0-20 10-28 [id number] tablet (5 st (Reglan) 5 00:00: 00:00 3D mg total) H ospita MG tablet 00 :00 by mouth 3 l (three) times a day as needed (nausea, vomiting) for up to 5 days. metoclopram 2019-04- No 5mg Q.[id number] Take 1 Methodi dung 0-20 10-28 [id number] tablet (5 st (Reglan) 5 00:00: 00:00 3D mg total) H ospita MG tablet 00 :00 by mouth 3 l (three) times a day as needed (nausea, vomiting) for up to 5 days. Vyvanse Vyvanse 2020-0 Yes Na [place] 1 capsule Common 8-25 in the Spirit 00:00: morning - [facility] Kenalog Kenalog 2020-0 No 40mg Common (Triamcinol (Triamcinol 2-19 S pirit one) one) 00:00: - [facility] Kenalog Kenalog 2020-0 No 40mg Common (Triamcinol (Triamcinol 2-19 S pirit one) one) 00:00: - [facility] Kenalog Kenalog 2020-0 No 40mg Common (Triamcinol (Triamcinol 2-19 S pirit one) one) 00:00: - [facility] Kenalog Kenalog 2020-0 No 40mg Common (Triamcinol (Triamcinol 2-19 S pirit one) one) 00:00: - [facility] Kenalog Kenalog 2020-0 No 40mg Common (Triamcinol (Triamcinol 2-19 S pirit one) one) 00:00: - [facility] Kenalog Kenalog 2020-0 No 40mg Common (Triamcinol (Triamcinol 2-19 S pirit one) one) 00:00: - [facility] Kenalog Kenalog 2020-0 No 40mg Common (Triamcinol (Triamcinol 2-19 S pirit one) one) 00:00: - [facility] Kenalog Kenalog 2020-0 No 40mg Common (Triamcinol (Triamcinol 2-19 S pirit one) one) 00:00: - [facility] oxcarbazepi 2019-0 Yes 300 mg = 1 Memoria ne 300 MG 9-06 tab, PO, l Oral Tablet 16:04: BID, # 180 Ricardo [Trileptal] 19 tab, 3 Refill(s), Pharmacy: [facility] #[id number] oxcarbazepi Yes 300 mg = 1 Memoria ne 300 MG 9-06 tab, PO, l Oral Tablet 16:04: BID, # 180 Ricardo [Trileptal] 19 tab, 3 Refill(s), Pharmacy: [facility] #[id number] Yes 100 mg = 1 Memori a topiramate 9-06 cap, PO, l 100 MG 16:04: Daily, # [employer] [place] Extended 10 90 cap, 3 Release Refill(s), Capsule Pharmacy: [[facility]] [facility] #[id number] Yes 100 mg = 1 Memori a topiramate 9-06 cap, PO, l 100 MG 16:04: Daily, # [employer] [place] Extended 10 90 cap, 3 Release Refill(s), Capsule Pharmacy: [[facility]] [facility] #[id number] No 100 mg = 1 Memori a topiramate 9-04 cap, PO, l 100 MG 18:31: Daily, X Ricardo Extended 30 day, # Release 30 cap, 3 Capsule Refill(s), [Trokendi] Pharmacy: [facility] No 100 mg = 1 Memori a topiramate 9-04 cap, PO, l 100 MG 18:31: Daily, X [employer] [place] Extended 30 day, # Release 30 cap, 3 Capsule Refill(s), [Trokendi] Pharmacy: [facility] oxcarbazepi No 300 mg = 1 Memoria ne 300 MG 9-04 tab, PO, l Oral Tablet 18:31: BID, X 30 H ermann [Trileptal] 02 day, # 60 tab, 3 Refill(s), Pharmacy: [facility] oxcarbazepi No 300 mg = 1 Memoria ne 300 MG 9-04 tab, PO, l Oral Tablet 18:31: BID, X 30 H ermann [Trileptal] 02 day, # 60 tab, 3 Refill(s), Pharmacy: [facility] lisdexamfet Yes 30 mg = 1 M emoria amine 8-09 cap, PO, l dimesylate 16:20: QAM, # 30 He rmann 30 MG Oral 00 cap, 0 Capsule Refill(s) [Vyvanse] Vyvanse Yes 30 mg = 1 Me moria mg oral 8-09 cap, PO, l capsule 16:20: QAM, # 30 Rupal nn 00 cap, 0 Refill(s) lisdexamfet Yes 30 mg = 1 M emoria amine 8-09 cap, PO, l dimesylate 16:20: QAM, # 30 He rmann 30 MG Oral 00 cap, 0 Capsule Refill(s) [Vyvanse] omeprazole Yes 20 mg = 1 Me moria 20 mg oral 7-17 cap, PO, l delayed 00:27: Daily, # Murray n release 00 30 cap, 2 capsule Refill(s), Pharmacy: [facility] omeprazole Yes 20 mg = 1 Me moria 20 mg oral 7-17 cap, PO, l delayed 00:27: Daily, # Murray n release 00 30 cap, 2 capsule Refill(s), Pharmacy: [facility] oxcarbazepi Yes 300 mg = 1 Memoria ne 300 MG 7-03 tab, PO, l Oral Tablet 18:01: BID, # 60 H ermann [Trileptal] 00 tab, 2 Refill(s), Pharmacy: [facility] oxcarbazepi Yes 300 mg = 1 Memoria ne 300 MG 7-03 tab, PO, l Oral Tablet 18:01: BID, # 60 H ermann [Trileptal] 00 tab, 2 Refill(s), Pharmacy: [facility] Yes 100 mg = 1 Memori a topiramate 6-28 cap, PO, l 100 MG 14:50: Daily, # Ricardo Extended 00 30 cap, 3 Release Refill(s), C[facility]ule [facility]: [facility] Yes 100 mg = 1 Memori a topiramate 6-28 cap, PO, l 100 MG 14:50: Daily, # Ricardo Extended 00 30 cap, 3 Release Refill(s), Capsule Pharmacy: [facility]] [facility] topiramate Yes 25 mg = 1 Me moria 25 MG Oral 6-14 tab, PO, l Tablet 23:33: BID, # 60 Murray n [Topamax] 00 tab, 2 Refill(s), Pharmacy: [facility] topiramate Yes 25 mg = 1 Me moria 25 MG Oral 6-14 tab, PO, l Tablet 23:33: BID, # 60 Murray n [Topamax] 00 tab, 2 Refill(s), Pharmacy: [facility] Phenytoin Yes 200 mg = 2 Me moria sodium 100 6-13 cap, PO, l MG Extended 13:57: BID, # 120 Ricardo Release 00 cap, 3 Capsule Refill(s), [Dilantin] Pharmacy: [facility] Phenytoin Yes 200 mg = 2 Me moria sodium 100 6-13 cap, PO, l MG Extended 13:57: BID, # 120 Ricardo Release 00 cap, 3 Capsule Refill(s), [Dilantin] Pharmacy: [facility] Alprazolam Yes 0.5 mg = 1 M emoria 0.5 MG Oral 6-13 tab, PO, l Tablet 13:28: TID, 0 [employer] [place] [Xanax] 00 Refill(s) Zyrtec 0 Yes Daily, 0 Memoria 6-13 Refill(s) l 13:28: Ricardo 00 Alprazolam Yes 0.5 mg = 1 M emoria 0.5 MG Oral 6-13 tab, PO, l Tablet 13:28: TID, 0 Ricardo [Xanax] 00 Refill(s) Zyrtec Yes Daily, 0 Memoria 6-13 Refill(s) l 13:28: [employer] 00 Phenytoin No 100 mg = 1 [...] 1-15 by mouth. ity of tablet 00:00: [facility] montelukast Yes 10mg Take 10 mg [facility] 10 mg 1-15 by mouth. ity of tablet 00:00: [facility] montelukast Yes 10mg Take 10 mg Univers 10 mg 1-15 by mouth. ity of tablet 00:00: [facility] montelukast Yes 10mg Take 10 mg Univers 10 mg 1-15 by mouth. ity of tablet 00:00: [place] [facility] 40 Yes 1{tbl} Take 1 Uni vers mg capsule 9-19 tablet by ity of 00:00: mouth daily. MD Taryn mitchell [facility] Yes 1{tbl} Take 1 Uni vers mg capsule 9-19 tablet by ity of 00:00: mouth 00 daily. MD Taryn mitchell [facility] 40 Yes 1{tbl} Take 1 Uni vers mg capsule 9-19 tablet by ity of 00:00: mouth 00 daily. MD Taryn mitchell [facility] Flonase 50 Flonase 50 No 2{spray QD Flonase 50 MCG/ACT MCG/ACT _in_eac MCG/ACT h_nostr il} tiZANidine tiZANidine No tiZANidine HCl 2 MG HCl 2 MG HCl 2 MG Albuterol Albuterol No 2{puffs Albuterol Sulfate HFA Sulfate HFA } Sulfate 108 (90 108 (90 HFA 108 Base) Base) (90 Base) MCG/ACT MCG/ACT MCG/ACT Sucralfate Sucralfate No 1{table Sucralfate 1 GM 1 GM t_on_an 1 GM _empty_ stomach } Eliquis 5 Eliquis 5 No Eliquis 5 mg 5 mg mg 5 mg mg 5 mg Hydroxychlo Hydroxychlo No Hydroxychl roquine roquine oroquine Sulfate 200 Sulfate 200 Sulfate MG MG 200 MG Azelastine Azelastine No 1{drop_ Azelastine HCl 0.05 % HCl 0.05 % into_af HCl 0.05 % fected_ eye} Dicyclomine Dicyclomine No 1{table QID Dicyclomin HCl 20 MG HCl 20 MG t} e HCl 20 MG Augmentin Augmentin No 1{table BID Augmentin 500-125 MG 500-125 MG t} 500-125 MG Esomeprazol Esomeprazol No 1{capsu QD Esomeprazo e Magnesium e Magnesium le} le 40 MG 40 MG Magnesium 40 MG Linzess 145 Linzess 145 No Linzess mcg mcg 145 mcg Xanax 0.5 Xanax 0.5 No 1{table Xanax 0.5 MG MG t} MG Azelastine Azelastine No Azelastine HCl 0.05 % HCl 0.05 % HCl 0.05 % Singulair Singulair No 1{table QD Singulair 10 MG 10 MG t_in_th 10 MG e_eveni ng} Loestrin Loestrin No 1{table QD Loestrin 1.5/30 (21) 1.5/30 (21) t} 1.5/30 1.5-30 1.5-30 (21) MG-MCG MG-MCG 1.5-30 MG-MCG Levothyroxi Levothyroxi No QD Levothyrox ne Sodium ne Sodium ine Sodium 75 MCG 75 MCG 75 MCG Bactrim DS Bactrim DS No 1{table BID Bactrim DS 800-160 MG 800-160 MG t} 800-160 MG Mupirocin 2 Mupirocin 2 No TID Mupirocin % % 2 % Trokendi XR Trokendi XR No Trokendi 100mg 100mg XR 100mg Trileptal Trileptal No 1{table BID Trileptal 300 MG 300 MG t} 300 MG Dicyclomine Dicyclomine No 1{table QID Dicyclomin HCl 20 MG HCl 20 MG t} e HCl 20 MG Flonase 50 Flonase 50 No 2{spray QD Flonase 50 MCG/ACT MCG/ACT _in_eac MCG/ACT h_nostr il} Sucralfate Sucralfate No 1{table Sucralfate 1 GM 1 GM t_on_an 1 GM _empty_ stomach } Loestrin Loestrin No 1{table QD Loestrin 1.5/30 (21) 1.5/30 (21) t} 1.5/30 1.5-30 1.5-30 (21) MG-MCG MG-MCG 1.5-30 MG-MCG Mupirocin 2 Mupirocin 2 No TID Mupirocin % % 2 % Trileptal Trileptal No 1{table BID Trileptal 300 MG 300 MG t} 300 MG Esomeprazol Esomeprazol No 1{capsu QD Esomeprazo e Magnesium e Magnesium le} le 40 MG 40 MG Magnesium 40 MG tiZANidine tiZANidine No tiZANidine HCl 2 MG HCl 2 MG HCl 2 MG Eliquis 5 Eliquis 5 No Eliquis 5 mg 5 mg mg 5 mg mg 5 mg Linzess 145 Linzess 145 No Linzess mcg mcg 145 mcg Bactrim DS Bactrim DS No 1{table BID Bactrim DS 800-160 MG 800-160 MG t} 800-160 MG Xanax 0.5 Xanax 0.5 No 1{table Xanax 0.5 MG MG t} MG Trokendi XR Trokendi XR No Trokendi 100mg 100mg XR 100mg Augmentin Augmentin No 1{table BID Augmentin 500-125 MG 500-125 MG t} 500-125 MG Singulair Singulair No 1{table QD Singulair 10 MG 10 MG t_in_th 10 MG e_eveni ng} Enoxaparin Enoxaparin No BID Enoxaparin Sodium 100 Sodium 100 Sodium 100 MG/ML MG/ML MG/ML Azelastine Azelastine No Azelastine HCl 0.05 % HCl 0.05 % HCl 0.05 % Albuterol Albuterol No 2{puffs Albuterol Sulfate HFA Sulfate HFA } Sulfate 108 (90 108 (90 HFA 108 Base) Base) (90 Base) MCG/ACT MCG/ACT MCG/ACT Vyvanse 50 Vyvanse 50 No 1{capsu QD Vyvanse 50 MG MG le_in_t MG he_morn ing} Levothyroxi Levothyroxi No QD Levothyrox ne Sodium ne Sodium ine Sodium 75 MCG 75 MCG 75 MCG Albuterol Albuterol No 2{puffs Albuterol Sulfate HFA Sulfate HFA } Sulfate 108 (90 108 (90 HFA 108 Base) Base) (90 Base) MCG/ACT MCG/ACT MCG/ACT Xanax 0.5 Xanax 0.5 No 1{table Xanax 0.5 MG MG t} MG Trileptal Trileptal No 1{table BID Trileptal 300 MG 300 MG t} 300 MG Dicyclomine Dicyclomine No 1{table QID Dicyclomin HCl 20 MG HCl 20 MG t} e HCl 20 MG Trokendi XR Trokendi XR No Trokendi 100mg 100mg XR 100mg Eliquis 5 Eliquis 5 No Eliquis 5 mg 5 mg mg 5 mg mg 5 mg Singulair Singulair No 1{table QD Singulair 10 MG 10 MG t_in_th 10 MG e_eveni ng} Linzess 145 Linzess 145 No Linzess mcg mcg 145 mcg Loestrin Loestrin No 1{table QD Loestrin 1.5/30 (21) 1.5/30 (21) t} 1.5/30 1.5-30 1.5-30 (21) MG-MCG MG-MCG 1.5-30 MG-MCG Flonase 50 Flonase 50 No 2{spray QD Flonase 50 MCG/ACT MCG/ACT _in_eac MCG/ACT h_nostr il} Levothyroxi Levothyroxi No QD Levothyrox ne Sodium ne Sodium ine Sodium 75 MCG 75 MCG 75 MCG Mupirocin 2 Mupirocin 2 No TID Mupirocin % % 2 % Azelastine Azelastine No Azelastine HCl 0.05 % HCl 0.05 % HCl 0.05 % Sucralfate Sucralfate No 1{table Sucralfate 1 GM 1 GM t_on_an 1 GM _empty_ stomach } tiZANidine tiZANidine No tiZANidine HCl 2 MG HCl 2 MG HCl 2 MG Bactrim DS Bactrim DS No 1{table BID Bactrim DS 800-160 MG 800-160 MG t} 800-160 MG Esomeprazol Esomeprazol No 1{capsu QD Esomeprazo e Magnesium e Magnesium le} le 40 MG 40 MG Magnesium 40 MG Augmentin Augmentin No 1{table BID Augmentin 500-125 MG 500-125 MG t} 500-125 MG Albuterol Albuterol No 2{puffs Albuterol Sulfate HFA Sulfate HFA } Sulfate 108 (90 108 (90 HFA 108 Base) Base) (90 Base) MCG/ACT MCG/ACT MCG/ACT Xanax 0.5 Xanax 0.5 No 1{table Xanax 0.5 MG MG t} MG Trileptal Trileptal No 1{table BID Trileptal 300 MG 300 MG t} 300 MG Dicyclomine Dicyclomine No 1{table QID Dicyclomin HCl 20 MG HCl 20 MG t} e HCl 20 MG Trokendi XR Trokendi XR No Trokendi 100mg 100mg XR 100mg Eliquis 5 Eliquis 5 No Eliquis 5 mg 5 mg mg 5 mg mg 5 mg Singulair Singulair No 1{table QD Singulair 10 MG 10 MG t_in_th 10 MG e_eveni ng} Linzess 145 Linzess 145 No Linzess mcg mcg 145 mcg Loestrin Loestrin No 1{table QD Loestrin 1.5/30 (21) 1.5/30 (21) t} 1.5/30 1.5-30 1.5-30 (21) MG-MCG MG-MCG 1.5-30 MG-MCG Flonase 50 Flonase 50 No 2{spray QD Flonase 50 MCG/ACT MCG/ACT _in_eac MCG/ACT h_nostr il} Levothyroxi Levothyroxi No QD Levothyrox ne Sodium ne Sodium ine Sodium 75 MCG 75 MCG 75 MCG Mupirocin 2 Mupirocin 2 No TID Mupirocin % % 2 % Azelastine Azelastine No Azelastine HCl 0.05 % HCl 0.05 % HCl 0.05 % Sucralfate Sucralfate No 1{table Sucralfate 1 GM 1 GM t_on_an 1 GM _empty_ stomach } tiZANidine tiZANidine No tiZANidine HCl 2 MG HCl 2 MG HCl 2 MG Bactrim DS Bactrim DS No 1{table BID Bactrim DS 800-160 MG 800-160 MG t} 800-160 MG Esomeprazol Esomeprazol No 1{capsu QD Esomeprazo e Magnesium e Magnesium le} le 40 MG 40 MG Magnesium 40 MG Augmentin Augmentin No 1{table BID Augmentin 500-125 MG 500-125 MG t} 500-125 MG Azelastine Azelastine No Azelastine HCl 0.05 % HCl 0.05 % HCl 0.05 % Linzess 145 Linzess 145 No Linzess mcg mcg 145 mcg Trokendi XR Trokendi XR No Trokendi 100mg 100mg XR 100mg Levothyroxi Levothyroxi No QD Levothyrox ne Sodium ne Sodium ine Sodium 75 MCG 75 MCG 75 MCG Albuterol Albuterol No 2{puffs Albuterol Sulfate HFA Sulfate HFA } Sulfate 108 (90 108 (90 HFA 108 Base) Base) (90 Base) MCG/ACT MCG/ACT MCG/ACT Flonase 50 Flonase 50 No 2{spray QD Flonase 50 MCG/ACT MCG/ACT _in_eac MCG/ACT h_nostr il} tiZANidine tiZANidine No tiZANidine HCl 2 MG HCl 2 MG HCl 2 MG Augmentin Augmentin No 1{table BID Augmentin 500-125 MG 500-125 MG t} 500-125 MG Dicyclomine Dicyclomine No 1{table QID Dicyclomin HCl 20 MG HCl 20 MG t} e HCl 20 MG Bactrim DS Bactrim DS No 1{table BID Bactrim DS 800-160 MG 800-160 MG t} 800-160 MG Sucralfate Sucralfate No 1{table Sucralfate 1 GM 1 GM t_on_an 1 GM _empty_ stomach } Trileptal Trileptal No 1{table BID Trileptal 300 MG 300 MG t} 300 MG Loestrin Loestrin No 1{table QD Loestrin 1.5/30 (21) 1.5/30 (21) t} 1.5/30 1.5-30 1.5-30 (21) MG-MCG MG-MCG 1.5-30 MG-MCG Mupirocin 2 Mupirocin 2 No TID Mupirocin % % 2 % Xanax 0.5 Xanax 0.5 No 1{table Xanax 0.5 MG MG t} MG Singulair Singulair No 1{table QD Singulair 10 MG 10 MG t_in_th 10 MG e_eveni ng} Esomeprazol Esomeprazol No 1{capsu QD Esomeprazo e Magnesium e Magnesium le} le 40 MG 40 MG Magnesium 40 MG Eliquis 5 Eliquis 5 No Eliquis 5 mg 5 mg mg 5 mg mg 5 mg Azelastine Azelastine No Azelastine HCl 0.05 % HCl 0.05 % HCl 0.05 % Linzess 145 Linzess 145 No Linzess mcg mcg 145 mcg Trokendi XR Trokendi XR No Trokendi 100mg 100mg XR 100mg Levothyroxi Levothyroxi No QD Levothyrox ne Sodium ne Sodium ine Sodium 75 MCG 75 MCG 75 MCG Albuterol Albuterol No 2{puffs Albuterol Sulfate HFA Sulfate HFA } Sulfate 108 (90 108 (90 HFA 108 Base) Base) (90 Base) MCG/ACT MCG/ACT MCG/ACT Flonase 50 Flonase 50 No 2{spray QD Flonase 50 MCG/ACT MCG/ACT _in_eac MCG/ACT h_nostr il} tiZANidine tiZANidine No tiZANidine HCl 2 MG HCl 2 MG HCl 2 MG Augmentin Augmentin No 1{table BID Augmentin 500-125 MG 500-125 MG t} 500-125 MG Dicyclomine Dicyclomine No 1{table QID Dicyclomin HCl 20 MG HCl 20 MG t} e HCl 20 MG Bactrim DS Bactrim DS No 1{table BID Bactrim DS 800-160 MG 800-160 MG t} 800-160 MG Sucralfate Sucralfate No 1{table Sucralfate 1 GM 1 GM t_on_an 1 GM _empty_ stomach } Trileptal Trileptal No 1{table BID Trileptal 300 MG 300 MG t} 300 MG Loestrin Loestrin No 1{table QD Loestrin 1.5/30 (21) 1.5/30 (21) t} 1.5/30 1.5-30 1.5-30 (21) MG-MCG MG-MCG 1.5-30 MG-MCG Mupirocin 2 Mupirocin 2 No TID Mupirocin % % 2 % Xanax 0.5 Xanax 0.5 No 1{table Xanax 0.5 MG MG t} MG Singulair Singulair No 1{table QD Singulair 10 MG 10 MG t_in_th 10 MG e_eveni ng} Esomeprazol Esomeprazol No 1{capsu QD Esomeprazo e Magnesium e Magnesium le} le 40 MG 40 MG Magnesium 40 MG Eliquis 5 Eliquis 5 No Eliquis 5 mg 5 mg mg 5 mg mg 5 mg Eliquis 5 Eliquis 5 No Eliquis 5 mg 5 mg mg 5 mg mg 5 mg Vyvanse 50 Vyvanse 50 No 1{capsu QD Vyvanse 50 MG MG le_in_t MG he_morn ing} Singulair Singulair No 1{table QD Singulair 10 MG 10 MG t_in_th 10 MG e_eveni ng} Augmentin Augmentin No 1{table BID Augmentin 500-125 MG 500-125 MG t} 500-125 MG Levothyroxi Levothyroxi No QD Levothyrox ne Sodium ne Sodium ine Sodium 75 MCG 75 MCG 75 MCG Esomeprazol Esomeprazol No 1{capsu QD Esomeprazo e Magnesium e Magnesium le} le 40 MG 40 MG Magnesium 40 MG Linzess 145 Linzess 145 No Linzess mcg mcg 145 mcg tiZANidine tiZANidine No tiZANidine HCl 2 MG HCl 2 MG HCl 2 MG Loestrin Loestrin No 1{table QD Loestrin 1.5/30 (21) 1.5/30 (21) t} 1.5/30 1.5-30 1.5-30 (21) MG-MCG MG-MCG 1.5-30 MG-MCG Dicyclomine Dicyclomine No 1{table QID Dicyclomin HCl 20 MG HCl 20 MG t} e HCl 20 MG Azelastine Azelastine No 1{drop_ Azelastine HCl 0.05 % HCl 0.05 % into_af HCl 0.05 % fected_ eye} Xanax 0.5 Xanax 0.5 No 1{table Xanax 0.5 MG MG t} MG Albuterol Albuterol No 2{puffs Albuterol Sulfate HFA Sulfate HFA } Sulfate 108 (90 108 (90 HFA 108 Base) Base) (90 Base) MCG/ACT MCG/ACT MCG/ACT Flonase 50 Flonase 50 No 2{spray QD Flonase 50 MCG/ACT MCG/ACT _in_eac MCG/ACT h_nostr il} Sucralfate Sucralfate No 1{table Sucralfate 1 GM 1 GM t_on_an 1 GM _empty_ stomach } Bactrim DS Bactrim DS No 1{table BID Bactrim DS 800-160 MG 800-160 MG t} 800-160 MG Azelastine Azelastine No Azelastine HCl 0.05 % HCl 0.05 % HCl 0.05 % Trileptal Trileptal No 1{table BID Trileptal 300 MG 300 MG t} 300 MG Trokendi XR Trokendi XR No Trokendi 100mg 100mg XR 100mg Mupirocin 2 Mupirocin 2 No TID Mupirocin % % 2 % Eliquis 5 Eliquis 5 No mg 5 mg mg 5 mg Vyvanse 50 Vyvanse 50 No 1{capsu QD MG MG le_in_t he_morn ing} Singulair Singulair No 1{table QD 10 MG 10 MG t_in_th e_eveni ng} Augmentin Augmentin No 1{table BID 500-125 MG 500-125 MG t} Levothyroxi Levothyroxi No QD ne Sodium ne Sodium 75 MCG 75 MCG Esomeprazol Esomeprazol No 1{capsu QD e Magnesium e Magnesium le} 40 MG 40 MG Linzess 145 Linzess 145 No mcg mcg tiZANidine tiZANidine No HCl 2 MG HCl 2 MG Loestrin Loestrin No 1{table QD 1.530 (21) 1.530 (21) t} 1.5-30 1.5-30 MG-MCG MG-MCG Dicyclomine Dicyclomine No 1{table QID HCl 20 MG HCl 20 MG t} Azelastine Azelastine No 1{drop_ HCl 0.05 % HCl 0.05 % into_af fected_ eye} Xanax 0.5 Xanax 0.5 No 1{table MG MG t} Albuterol Albuterol No 2{puffs Sulfate HFA Sulfate HFA } 108 (90 108 (90 Base) Base) MCG/ACT MCG/ACT Flonase 50 Flonase 50 No 2{spray QD MCG/ACT MCG/ACT _in_eac h_nostr il} Sucralfate Sucralfate No 1{table 1 GM 1 GM t_on_an _empty_ stomach } Bactrim DS Bactrim DS No 1{table BID 800-160 MG 800-160 MG t} Azelastine Azelastine No HCl 0.05 % HCl 0.05 % Trileptal Trileptal No 1{table BID 300 MG 300 MG t} Trokendi XR Trokendi XR No 100mg 100mg Mupirocin 2 Mupirocin 2 No TID % % Levothyroxi Levothyroxi No QD Levothyrox ne Sodium ne Sodium ine Sodium 75 MCG 75 MCG 75 MCG Esomeprazol Esomeprazol No 1{capsu QD Esomeprazo e Magnesium e Magnesium le} le 40 MG 40 MG Magnesium 40 MG Eliquis 5 Eliquis 5 No Eliquis 5 mg 5 mg mg 5 mg mg 5 mg Linzess 145 Linzess 145 No Linzess mcg mcg 145 mcg Augmentin Augmentin No 1{table BID Augmentin 500-125 MG 500-125 MG t} 500-125 MG Albuterol Albuterol No 2{puffs Albuterol Sulfate HFA Sulfate HFA } Sulfate 108 (90 108 (90 HFA 108 Base) Base) (90 Base) MCG/ACT MCG/ACT MCG/ACT tiZANidine tiZANidine No tiZANidine HCl 2 MG HCl 2 MG HCl 2 MG Sucralfate Sucralfate No 1{table Sucralfate 1 GM 1 GM t_on_an 1 GM _empty_ stomach } Flonase 50 Flonase 50 No 2{spray QD Flonase 50 MCG/ACT MCG/ACT _in_eac MCG/ACT h_nostr il} Bactrim DS Bactrim DS No 1{table BID Bactrim DS 800-160 MG 800-160 MG t} 800-160 MG Dicyclomine Dicyclomine No 1{table QID Dicyclomin HCl 20 MG HCl 20 MG t} e HCl 20 MG Azelastine Azelastine No 1{drop_ Azelastine HCl 0.05 % HCl 0.05 % into_af HCl 0.05 % fected_ eye} Singulair Singulair No 1{table QD Singulair 10 MG 10 MG t_in_th 10 MG e_eveni ng} Xanax 0.5 Xanax 0.5 No 1{table Xanax 0.5 MG MG t} MG Vyvanse 50 Vyvanse 50 No 1{capsu QD Vyvanse 50 MG MG le_in_t MG he_morn ing} Loestrin Loestrin No 1{table QD Loestrin 1.530 (21) 1.5/30 (21) t} 1.5/30 1.5-30 1.5-30 (21) MG-MCG MG-MCG 1.5-30 MG-MCG Azelastine Azelastine No Azelastine HCl 0.05 % HCl 0.05 % HCl 0.05 % Trileptal Trileptal No 1{table BID Trileptal 300 MG 300 MG t} 300 MG Trokendi XR Trokendi XR No Trokendi 100mg 100mg XR 100mg Mupirocin 2 Mupirocin 2 No TID Mupirocin % % 2 % Loestrin Loestrin No 1{table QD Loestrin 1.5/30 (21) 1.5/30 (21) t} 1.5/30 1.5-30 1.5-30 (21) MG-MCG MG-MCG 1.5-30 MG-MCG Levothyroxi Levothyroxi No QD Levothyrox ne Sodium ne Sodium ine Sodium 75 MCG 75 MCG 75 MCG Bactrim DS Bactrim DS No 1{table BID Bactrim DS 800-160 MG 800-160 MG t} 800-160 MG Esomeprazol Esomeprazol No 1{capsu QD Esomeprazo e Magnesium e Magnesium le} le 40 MG 40 MG Magnesium 40 MG Augmentin Augmentin No 1{table BID Augmentin 500-125 MG 500-125 MG t} 500-125 MG Azelastine Azelastine No Azelastine HCl 0.05 % HCl 0.05 % HCl 0.05 % Xanax 0.5 Xanax 0.5 No 1{table Xanax 0.5 MG MG t} MG Eliquis 5 Eliquis 5 No Eliquis 5 mg 5 mg mg 5 mg mg 5 mg Albuterol Albuterol No 2{puffs Albuterol Sulfate HFA Sulfate HFA } Sulfate 108 (90 108 (90 HFA 108 Base) Base) (90 Base) MCG/ACT MCG/ACT MCG/ACT Sucralfate Sucralfate No 1{table Sucralfate 1 GM 1 GM t_on_an 1 GM _empty_ stomach } Azelastine Azelastine No 1{drop_ Azelastine HCl 0.05 % HCl 0.05 % into_af HCl 0.05 % fected_ eye} Linzess 145 Linzess 145 No Linzess mcg mcg 145 mcg Mupirocin 2 Mupirocin 2 No TID Mupirocin % % 2 % Vyvanse 50 Vyvanse 50 No 1{capsu QD Vyvanse 50 MG MG le_in_t MG he_morn ing} Dicyclomine Dicyclomine No 1{table QID Dicyclomin HCl 20 MG HCl 20 MG t} e HCl 20 MG Singulair Singulair No 1{table QD Singulair 10 MG 10 MG t_in_th 10 MG e_eveni ng} Flonase 50 Flonase 50 No 2{spray QD Flonase 50 MCG/ACT MCG/ACT _in_eac MCG/ACT h_nostr il} Trileptal Trileptal No 1{table BID Trileptal 300 MG 300 MG t} 300 MG Trokendi XR Trokendi XR No Trokendi 100mg 100mg XR 100mg tiZANidine tiZANidine No tiZANidine HCl 2 MG HCl 2 MG HCl 2 MG Esomeprazol Esomeprazol No 1{capsu QD Esomeprazo e Magnesium e Magnesium le} le 40 MG 40 MG Magnesium 40 MG Levothyroxi Levothyroxi No QD Levothyrox ne Sodium ne Sodium ine Sodium 75 MCG 75 MCG 75 MCG Loestrin Loestrin No 1{table QD Loestrin 1.5/30 (21) 1.5/30 (21) t} 1.5/30 1.5-30 1.5-30 (21) MG-MCG MG-MCG 1.5-30 MG-MCG Augmentin Augmentin No 1{table BID Augmentin 500-125 MG 500-125 MG t} 500-125 MG Azelastine Azelastine No Azelastine HCl 0.05 % HCl 0.05 % HCl 0.05 % Linzess 145 Linzess 145 No Linzess mcg mcg 145 mcg Xanax 0.5 Xanax 0.5 No 1{table Xanax 0.5 MG MG t} MG Eliquis 5 Eliquis 5 No Eliquis 5 mg 5 mg mg 5 mg mg 5 mg Albuterol Albuterol No 2{puffs Albuterol Sulfate HFA Sulfate HFA } Sulfate 108 (90 108 (90 HFA 108 Base) Base) (90 Base) MCG/ACT MCG/ACT MCG/ACT Mupirocin 2 Mupirocin 2 No TID Mupirocin % % 2 % Sucralfate Sucralfate No 1{table Sucralfate 1 GM 1 GM t_on_an 1 GM _empty_ stomach } Azelastine Azelastine No 1{drop_ Azelastine HCl 0.05 % HCl 0.05 % into_af HCl 0.05 % fected_ eye} Bactrim DS Bactrim DS No 1{table BID Bactrim DS 800-160 MG 800-160 MG t} 800-160 MG Vyvanse 50 Vyvanse 50 No 1{capsu QD Vyvanse 50 MG MG le_in_t MG he_morn ing} Dicyclomine Dicyclomine No 1{table QID Dicyclomin HCl 20 MG HCl 20 MG t} e HCl 20 MG Singulair Singulair No 1{table QD Singulair 10 MG 10 MG t_in_th 10 MG e_eveni ng} Flonase 50 Flonase 50 No 2{spray QD Flonase 50 MCG/ACT MCG/ACT _in_eac MCG/ACT h_nostr il} Trileptal Trileptal No 1{table BID Trileptal 300 MG 300 MG t} 300 MG Trokendi XR Trokendi XR No Trokendi 100mg 100mg XR 100mg tiZANidine tiZANidine No tiZANidine HCl 2 MG HCl 2 MG HCl 2 MG Bactrim DS Bactrim DS No 1{table BID Bactrim DS 800-160 MG 800-160 MG t} 800-160 MG Linzess 145 Linzess 145 No Linzess mcg mcg 145 mcg Esomeprazol Esomeprazol No 1{capsu QD Esomeprazo e Magnesium e Magnesium le} le 40 MG 40 MG Magnesium 40 MG Azelastine Azelastine No Azelastine HCl 0.05 % HCl 0.05 % HCl 0.05 % Mupirocin 2 Mupirocin 2 No TID Mupirocin % % 2 % Augmentin Augmentin No 1{table BID Augmentin 500-125 MG 500-125 MG t} 500-125 MG Hydroxychlo Hydroxychlo No Hydroxychl roquine roquine oroquine Sulfate 200 Sulfate 200 Sulfate MG MG 200 MG Azelastine Azelastine No 1{drop_ Azelastine HCl 0.05 % HCl 0.05 % into_af HCl 0.05 % fected_ eye} Trokendi XR Trokendi XR No Trokendi 100mg 100mg XR 100mg Sucralfate Sucralfate No 1{table Sucralfate 1 GM 1 GM t_on_an 1 GM _empty_ stomach } Singulair Singulair No 1{table QD Singulair 10 MG 10 MG t_in_th 10 MG e_eveni ng} Albuterol Albuterol No 2{puffs Albuterol Sulfate HFA Sulfate HFA } Sulfate 108 (90 108 (90 HFA 108 Base) Base) (90 Base) MCG/ACT MCG/ACT MCG/ACT Flonase 50 Flonase 50 No 2{spray QD Flonase 50 MCG/ACT MCG/ACT _in_eac MCG/ACT h_nostr il} Loestrin Loestrin No 1{table QD Loestrin 1.5/30 (21) 1.5/30 (21) t} 1.5/30 1.5-30 1.5-30 (21) MG-MCG MG-MCG 1.5-30 MG-MCG tiZANidine tiZANidine No tiZANidine HCl 2 MG HCl 2 MG HCl 2 MG Dicyclomine Dicyclomine No 1{table QID Dicyclomin HCl 20 MG HCl 20 MG t} e HCl 20 MG Eliquis 5 Eliquis 5 No Eliquis 5 mg 5 mg mg 5 mg mg 5 mg Trileptal Trileptal No 1{table BID Trileptal 300 MG 300 MG t} 300 MG Xanax 0.5 Xanax 0.5 No 1{table Xanax 0.5 MG MG t} MG Levothyroxi Levothyroxi No QD Levothyrox ne Sodium ne Sodium ine Sodium 75 MCG 75 MCG 75 MCG Bactrim DS Bactrim DS No 1{table BID Bactrim DS 800-160 MG 800-160 MG t} 800-160 MG Linzess 145 Linzess 145 No Linzess mcg mcg 145 mcg Esomeprazol Esomeprazol No 1{capsu QD Esomeprazo e Magnesium e Magnesium le} le 40 MG 40 MG Magnesium 40 MG Azelastine Azelastine No Azelastine HCl 0.05 % HCl 0.05 % HCl 0.05 % Mupirocin 2 Mupirocin 2 No TID Mupirocin % % 2 % Augmentin Augmentin No 1{table BID Augmentin 500-125 MG 500-125 MG t} 500-125 MG Hydroxychlo Hydroxychlo No Hydroxychl roquine roquine oroquine Sulfate 200 Sulfate 200 Sulfate MG MG 200 MG Azelastine Azelastine No 1{drop_ Azelastine HCl 0.05 % HCl 0.05 % into_af HCl 0.05 % fected_ eye} Trokendi XR Trokendi XR No Trokendi 100mg 100mg XR 100mg Sucralfate Sucralfate No 1{table Sucralfate 1 GM 1 GM t_on_an 1 GM _empty_ stomach } Singulair Singulair No 1{table QD Singulair 10 MG 10 MG t_in_th 10 MG e_eveni ng} Albuterol Albuterol No 2{puffs Albuterol Sulfate HFA Sulfate HFA } Sulfate 108 (90 108 (90 HFA 108 Base) Base) (90 Base) MCG/ACT MCG/ACT MCG/ACT Flonase 50 Flonase 50 No 2{spray QD Flonase 50 MCG/ACT MCG/ACT _in_eac MCG/ACT h_nostr il} Loestrin Loestrin No 1{table QD Loestrin 1.5/30 (21) 1.5/30 (21) t} 1.5/30 1.5-30 1.5-30 (21) MG-MCG MG-MCG 1.5-30 MG-MCG tiZANidine tiZANidine No tiZANidine HCl 2 MG HCl 2 MG HCl 2 MG Dicyclomine Dicyclomine No 1{table QID Dicyclomin HCl 20 MG HCl 20 MG t} e HCl 20 MG Eliquis 5 Eliquis 5 No Eliquis 5 mg 5 mg mg 5 mg mg 5 mg Trileptal Trileptal No 1{table BID Trileptal 300 MG 300 MG t} 300 MG Xanax 0.5 Xanax 0.5 No 1{table Xanax 0.5 MG MG t} MG Levothyroxi Levothyroxi No QD Levothyrox ne Sodium ne Sodium ine Sodium 75 MCG 75 MCG 75 MCG Bactrim DS Bactrim DS No 1{table BID Bactrim DS 800-160 MG 800-160 MG t} 800-160 MG Augmentin Augmentin No 1{table BID Augmentin 500-125 MG 500-125 MG t} 500-125 MG Esomeprazol Esomeprazol No 1{capsu QD Esomeprazo e Magnesium e Magnesium le} le 40 MG 40 MG Magnesium 40 MG Linzess 145 Linzess 145 No Linzess mcg mcg 145 mcg Hydroxychlo Hydroxychlo No Hydroxychl roquine roquine oroquine Sulfate 200 Sulfate 200 Sulfate MG MG 200 MG Mupirocin 2 Mupirocin 2 No TID Mupirocin % % 2 % Loestrin Loestrin No 1{table QD Loestrin 1.530 (21) 1.5/30 (21) t} 1.5/30 1.5-30 1.5-30 (21) MG-MCG MG-MCG 1.5-30 MG-MCG Trokendi XR Trokendi XR No Trokendi 100mg 100mg XR 100mg Trileptal Trileptal No 1{table BID Trileptal 300 MG 300 MG t} 300 MG Sucralfate Sucralfate No 1{table Sucralfate 1 GM 1 GM t_on_an 1 GM _empty_ stomach } Singulair Singulair No 1{table QD Singulair 10 MG 10 MG t_in_th 10 MG e_eveni ng} tiZANidine tiZANidine No tiZANidine HCl 2 MG HCl 2 MG HCl 2 MG Flonase 50 Flonase 50 No 2{spray QD Flonase 50 MCG/ACT MCG/ACT _in_eac MCG/ACT h_nostr il} Albuterol Albuterol No 2{puffs Albuterol Sulfate HFA Sulfate HFA } Sulfate 108 (90 108 (90 HFA 108 Base) Base) (90 Base) MCG/ACT MCG/ACT MCG/ACT Dicyclomine Dicyclomine No 1{table QID Dicyclomin HCl 20 MG HCl 20 MG t} e HCl 20 MG Eliquis 5 Eliquis 5 No Eliquis 5 mg 5 mg mg 5 mg mg 5 mg Azelastine Azelastine No Azelastine HCl 0.05 % HCl 0.05 % HCl 0.05 % Xanax 0.5 Xanax 0.5 No 1{table Xanax 0.5 MG MG t} MG Levothyroxi Levothyroxi No QD Levothyrox ne Sodium ne Sodium ine Sodium 75 MCG 75 MCG 75 MCG Augmentin Augmentin No 1{table BID Augmentin 500-125 MG 500-125 MG t} 500-125 MG Mupirocin 2 Mupirocin 2 No TID Mupirocin % % 2 % Trokendi XR Trokendi XR No Trokendi 100mg 100mg XR 100mg Vyvanse 50 Vyvanse 50 No 1{capsu QD Vyvanse 50 MG MG le_in_t MG he_morn ing} Linzess 145 Linzess 145 No Linzess mcg mcg 145 mcg Bactrim DS Bactrim DS No 1{table BID Bactrim DS 800-160 MG 800-160 MG t} 800-160 MG Xanax 0.5 Xanax 0.5 No 1{table Xanax 0.5 MG MG t} MG tiZANidine tiZANidine No tiZANidine HCl 2 MG HCl 2 MG HCl 2 MG Loestrin Loestrin No 1{table QD Loestrin 1.5/30 (21) 1.5/30 (21) t} 1.5/30 1.5-30 1.5-30 (21) MG-MCG MG-MCG 1.5-30 MG-MCG Eliquis 5 Eliquis 5 No Eliquis 5 mg 5 mg mg 5 mg mg 5 mg Azelastine Azelastine No 1{drop_ Azelastine HCl 0.05 % HCl 0.05 % into_af HCl 0.05 % fected_ eye} Trileptal Trileptal No 1{table BID Trileptal 300 MG 300 MG t} 300 MG Levothyroxi Levothyroxi No QD Levothyrox ne Sodium ne Sodium ine Sodium 75 MCG 75 MCG 75 MCG Hydroxychlo Hydroxychlo No Hydroxychl roquine roquine oroquine Sulfate 200 Sulfate 200 Sulfate MG MG 200 MG Flonase 50 Flonase 50 No 2{spray QD Flonase 50 MCG/ACT MCG/ACT _in_eac MCG/ACT h_nostr il} Esomeprazol Esomeprazol No 1{capsu QD Esomeprazo e Magnesium e Magnesium le} le 40 MG 40 MG Magnesium 40 MG Singulair Singulair No 1{table QD Singulair 10 MG 10 MG t_in_th 10 MG e_eveni ng} Dicyclomine Dicyclomine No 1{table QID Dicyclomin HCl 20 MG HCl 20 MG t} e HCl 20 MG Albuterol Albuterol No 2{puffs Albuterol Sulfate HFA Sulfate HFA } Sulfate 108 (90 108 (90 HFA 108 Base) Base) (90 Base) MCG/ACT MCG/ACT MCG/ACT Sucralfate Sucralfate No 1{table Sucralfate 1 GM 1 GM t_on_an 1 GM _empty_ stomach } Azelastine Azelastine No Azelastine HCl 0.05 % HCl 0.05 % HCl 0.05 % Flonase 50 Flonase 50 No 2{spray QD Flonase 50 MCG/ACT MCG/ACT _in_eac MCG/ACT h_nostr il} tiZANidine tiZANidine No tiZANidine HCl 2 MG HCl 2 MG HCl 2 MG Albuterol Albuterol No 2{puffs Albuterol Sulfate HFA Sulfate HFA } Sulfate 108 (90 108 (90 HFA 108 Base) Base) (90 Base) MCG/ACT MCG/ACT MCG/ACT Sucralfate Sucralfate No 1{table Sucralfate 1 GM 1 GM t_on_an 1 GM _empty_ stomach } Eliquis 5 Eliquis 5 No Eliquis 5 mg 5 mg mg 5 mg mg 5 mg Hydroxychlo Hydroxychlo No Hydroxychl roquine roquine oroquine Sulfate 200 Sulfate 200 Sulfate MG MG 200 MG Azelastine Azelastine No 1{drop_ Azelastine HCl 0.05 % HCl 0.05 % into_af HCl 0.05 % fected_ eye} Dicyclomine Dicyclomine No 1{table QID Dicyclomin HCl 20 MG HCl 20 MG t} e HCl 20 MG Augmentin Augmentin No 1{table BID Augmentin 500-125 MG 500-125 MG t} 500-125 MG Esomeprazol Esomeprazol No 1{capsu QD Esomeprazo e Magnesium e Magnesium le} le 40 MG 40 MG Magnesium 40 MG Linzess 145 Linzess 145 No Linzess mcg mcg 145 mcg Xanax 0.5 Xanax 0.5 No 1{table Xanax 0.5 MG MG t} MG Azelastine Azelastine No Azelastine HCl 0.05 % HCl 0.05 % HCl 0.05 % Singulair Singulair No 1{table QD Singulair 10 MG 10 MG t_in_th 10 MG e_eveni ng} Loestrin Loestrin No 1{table QD Loestrin 1.5/30 (21) 1.5/30 (21) t} 1.5/30 1.5-30 1.5-30 (21) MG-MCG MG-MCG 1.5-30 MG-MCG Levothyroxi Levothyroxi No QD Levothyrox ne Sodium ne Sodium ine Sodium 75 MCG 75 MCG 75 MCG Bactrim DS Bactrim DS No 1{table BID Bactrim DS 800-160 MG 800-160 MG t} 800-160 MG Mupirocin 2 Mupirocin 2 No TID Mupirocin % % 2 % Trokendi XR Trokendi XR No Trokendi 100mg 100mg XR 100mg Trileptal Trileptal No 1{table BID Trileptal 300 MG 300 MG t} 300 MG No known No [facility] No known No [facility] Immunizations Ordered Filled Immunization Date Status Comments [facility] e Immunization Name Name Fozia 2020-06-10 Completed [facility] 00:00:00 [facility] Fozia 2020-06-10 Completed [facility] 00:00:00 [facility] Fozia 2020-06-10 Completed [facility] 00:00:00 [facility] Fozia 2020-06-10 Completed [facility] 00:00:00 [facility] Fozia 2020-06-10 Completed [facility]-Ism 00:00:00 [facility] FLUCELVAX QUAD PF 2020-02-[address] 00:00:00 [facility] FLUCELVAX QUAD PF 2020-02-[address] 00:00:00 [facility] FLUCELVAX QUAD PF 2020-02-[address] 00:00:00 [facility] FLUCELVAX QUAD PF 2020-02-[address] 00:00:00 [facility] FLUCELVAX QUAD PF 2020-02-[address] 00:00:00 [facility] Kenalog Kenalog 2019-06-09 Completed [facility] (Triamcinolone) (Triamcinolone) 09:57:00 [facility] Influenza Split Completed [facility] [place] [facility] Influenza Split Completed [facility] 00:[facility] [place] [facility] Influenza Split Completed [facility]it [facility] 00:00:00 Jessica [facility] Vital Signs Vital Name Observation Time Observation Value Comments Source height 2022-01-09 11:20:00 66 [in_i] [facility] weight 2022-01-09 11:20:00 167 [lb_av] [facility] bmi 2022-01-09 11:20:00 26.95 kg/m2 [facility] height 2021-12-19 12:20:00 66 [in_i] [facility] weight 2021-12-19 12:20:00 164 [lb_av] [facility] bmi 2021-12-19 12:20:00 26.47 kg/m2 [facility] Systolic blood 2021-06-09 16:44:00 122 mm[Hg] Univer sity [facility] Diastolic blood 2021-06-09 16:44:00 83 mm[Hg] Unive rsity [facility] Heart rate 2021-06-09 16:44:00 82 /min [facility] Body temperature 2021-06-09 16:44:00 36.83 St[facility] 2021-06-09 16:44:00 18 /min [facility] Body height 2021-06-09 16:44:00 167.6 cm [facility] Body weight 2021-06-09 16:44:00 78.608 kg [facility] BMI 2021-06-09 16:44:00 27.97 kg/m2 [facility] Oxygen saturation in 2021-06-09 16:44:00 98 /min [facility] Arterial blood by [facility] Pulse oximetry [facility] 2021-05-16 11:00:00 66.5 [in_i] [facility] weight 2021-05-16 11:00:00 169 [lb_av] [facility] bmi 2021-05-16 11:00:00 26.87 kg/m2 [facility] - [facility] Systolic blood 2021-03-16 15:58:00 114 mm[Hg] Univer sity of pressure [facility] Diastolic blood 2021-03-16 15:58:00 75 mm[Hg] Unive rsity of pressure [facility] Heart rate 2021-03-16 15:58:00 76 /min Universi ty [facility] Body temperature 2021-03-16 15:58:00 36.78 Staci Univ ersity of [facility] Respiratory rate 2021-03-16 15:58:00 17 /min Univ ersity of [facility] Body height 2021-03-16 15:58:00 167.6 cm [facility] Body weight 2021-03-16 15:58:00 78.926 kg [facility] BMI 2021-03-16 15:58:00 28.08 kg/m2 [facility] Oxygen saturation in 2021-03-16 15:58:00 96 /min University of Arterial blood by [facility] Pulse oximetry Branch Systolic blood 2021-02-20 14:14:00 120 mm[Hg] Univer sity of pressure [facility] Diastolic blood 2021-02-20 14:14:00 79 mm[Hg] Unive rsity of pressure [facility] Heart rate 2021-02-20 14:14:00 74 /min Universi [facility] Body temperature 2021-02-20 14:14:00 36.78 Staci Univ ersity of [facility] Respiratory rate 2021-02-20 14:14:00 16 /min Univ ersity of [facility] Body weight 2021-02-20 14:14:00 79.833 kg [facility] BMI 2021-02-20 14:14:00 30.21 kg/m2 [facility] Oxygen saturation in 2021-02-20 14:14:00 99 /min University of Arterial blood by [facility] Pulse oximetry Branch height 2021-01-24 10:00:00 66.5 [in_i] Common S pirit [facility] weight 2021-01-24 10:00:00 172 [lb_av] [facility] - [facility] bmi 2021-01-24 10:00:00 27.34 kg/m2 [facility] Systolic blood 2020-12-05 03:35:00 121 mm[Hg] Univer sity of pressure [facility] [place] Diastolic blood 2020-12-05 03:35:00 83 mm[Hg] Unive rsity of pressure [facility] Heart rate 2020-12-05 03:35:00 79 /min Universi ty of [facility] Branch Oxygen saturation in 2020-12-05 03:35:00 100 /min University of Arterial blood by [place] [facility] Pulse oximetry Branch Body temperature 2020-12-05 01:16:00 37.11 Staci Univ ersity of [facility] Branch Respiratory rate 2020-12-05 01:16:00 18 /min Univ ersity of [place] [facility] [place] Body height 2020-12-05 01:16:00 167.6 cm [facility] Body weight 2020-12-05 01:16:00 81.647 kg [facility] BMI 2020-12-05 01:16:00 29.05 kg/m2 [facility] Systolic blood 2020-12-04 00:19:00 114 mm[Hg] Univer sity of pressure [facility] Diastolic blood 2020-12-04 00:19:00 79 mm[Hg] Unive rsity of pressure [facility] Heart rate 2020-12-04 00:19:00 92 /min [facility] Body temperature 2020-12-04 00:19:00 37.17 Staci Univ ersity [facility] Respiratory rate 2020-12-04 00:19:00 18 /min Univ ersity [facility] Body height 2020-12-04 00:19:00 167.6 cm [facility] Body weight 2020-12-04 00:19:00 81.647 kg [facility] BMI 2020-12-04 00:19:00 29.05 kg/m2 [facility] Oxygen saturation in 2020-12-04 00:19:00 99 /min [facility] Arterial blood by [place] [facility] Pulse oximetry Branch Systolic blood 2020-10-27 16:50:00 125 mm[Hg] [facility] Medicine Diastolic blood 2020-10-27 16:50:00 85 mm[Hg] [facility] Medicine Heart rate 2020-10-27 16:50:00 96 /min [facility] Medicine Respiratory rate 2020-10-27 16:50:00 16 /min [facility] Body height 2020-10-27 16:50:00 167.6 cm [facility] weight 2020-10-27 16:50:00 86.637 kg [facility] BMI 2020-10-27 16:50:00 30.83 kg/m2 [facility] Oxygen saturation in 2020-10-27 16:50:00 100 /min [facility] of Arterial blood by Medicine Pulse oximetry Systolic blood 2020-10-27 16:50:00 125 mm[Hg] [facility] Medicine Diastolic blood 2020-10-27 16:50:00 85 mm[Hg] [facility] Medicine Heart rate 2020-10-27 16:50:00 96 /min [facility] Respiratory rate 2020-10-27 16:50:00 16 /min [facility] Body height 2020-10-27 16:50:00 167.6 cm [facility] Body weight 2020-10-27 16:50:00 86.637 kg [facility] BMI 2020-10-27 16:50:00 30.83 kg/m2 [facility] Oxygen saturation in 2020-10-27 16:50:00 100 /min [facility] of Arterial blood by Medicine Pulse oximetry Systolic blood 2020-09-08 15:15:00 118 mm[Hg] [facility] Medicine Diastolic blood 2020-09-08 15:15:00 79 mm[Hg] [facility] Medicine Heart rate 2020-09-08 15:15:00 84 /min [facility] Respiratory rate 2020-09-08 15:15:00 16 /min [facility] Body height 2020-09-08 15:15:00 167.6 cm [facility] Body weight 2020-09-08 15:15:00 88.179 kg [facility] BMI 2020-09-08 15:15:00 31.38 kg/m2 [facility] Oxygen saturation in 2020-09-08 15:15:00 99 /min [facility] of Arterial blood by Medicine Pulse oximetry Systolic blood 2020-09-08 15:15:00 118 mm[Hg] [facility] pressure Medicine Diastolic blood 2020-09-08 15:15:00 79 mm[Hg] [facility] Medicine Heart rate 2020-09-08 15:15:00 84 /min [facility] Respiratory rate 2020-09-08 15:15:00 16 /min [facility] Body height 2020-09-08 15:15:00 167.6 cm [facility] Body weight 2020-09-08 15:15:00 88.179 kg [facility] BMI 2020-09-08 15:15:00 31.38 kg/m2 [facility] Oxygen saturation in 2020-09-08 15:15:00 99 /min [facility] Arterial blood by Medicine Pulse oximetry Weight 2022-02-01 14:28:00 [facility] BMI Calculated 2022-02-01 14:28:00 Avery al Ricardo Systolic (mm Hg) 2022-02-01 14:28:00 Unruly rial Ricardo Diastolic (mm Hg) 2022-02-01 14:28:00 Mem orial [facility] Heart Rate 2022-02-01 14:28:00 [facility] Height 2022-02-01 14:28:00 5 [ft_i] [facility] Systolic (mm Hg) 2021-12-20 14:38:00 Unruly rial [facility] Diastolic (mm Hg) 2021-12-20 14:38:00 Mem orial [facility] [place] Heart Rate 2021-12-20 14:38:00 [facility] Respitory Rate 2021-12-20 14:38:00 [facility] Height 2021-12-20 14:38:00 167.64 cm [facility] Weight 2021-12-20 14:38:00 [facility] BMI Calculated 2021-12-20 14:38:00 [facility] Height 2020-10-12 19:27:00 167.64 cm [facility] Weight 2020-10-12 19:27:00 [facility] BMI Calculated 2020-10-12 19:27:00 Memori al [facility] Systolic (mm Hg) 2020-10-12 19:27:00 Unruly rial [facility] Diastolic (mm Hg) 2020-10-12 19:27:00 Mem orial [facility] Heart Rate 2020-10-12 19:27:00 [facility] Respitory Rate 2020-10-12 19:27:00 Memori al [facility] Weight 2020-08-29 21:36:00 [facility] Systolic blood 2020-06-10 20:17:19 128 mm[Hg] [facility] pressure Diastolic blood 2020-06-10 20:17:19 68 mm[Hg] [facility] pressure Heart rate 2020-06-10 20:17:19 88 /min [facility] Body temperature 2020-06-10 20:17:19 36.11 Staci [facility] Respiratory rate 2020-06-10 20:17:19 16 /min [facility] Oxygen saturation in 2020-06-10 20:17:19 98 /min [facility] Arterial blood by Pulse oximetry Body height 2020-06-10 18:48:[address] [facility] Body weight 2020-06-10 18:48:[address] [facility] BMI 2020-06-10 18:48:00 33.73 kg/m2 [facility] Systolic (mm Hg) 2020-04-19 20:08:00 Unruly rial [facility]ardo Diastolic (mm Hg) 2020-04-19 20:08:00 Mem orial [facility] [place] Heart Rate 2020-04-19 20:08:00 [facility] Respitory Rate 2020-04-19 20:08:00 [facility] Height 2020-04-19 20:08:00 167.64 cm [facility] Weight 2020-04-19 20:08:00 [facility] BMI Calculated 2020-04-19 20:08:00 Memori [facility] Systolic (mm Hg) 2020-03-29 20:19:00 Unruly rial [facility] Diastolic (mm Hg) 2020-03-29 20:19:00 Mem orial [facility] Heart Rate 2020-03-29 20:19:00 [facility] Respitory Rate 2020-03-29 20:19:00 Memori [facility] Height 2020-03-29 20:19:00 167.64 cm [facility] Weight 2020-03-29 20:19:00 [facility] BMI Calculated 2020-03-29 20:19:00 Memori [facility] Systolic (mm Hg) 2020-02-29 17:31:00 Unruly rial [facility] Diastolic (mm Hg) 2020-02-29 17:31:00 Mem orial [facility] Heart Rate 2020-02-29 17:31:00 [facility] Respitory Rate 2020-02-29 17:31:00 Memori al [facility] Height 2020-02-29 17:31:00 167.64 cm [facility] Weight 2020-02-29 17:31:00 [facility] BMI Calculated 2020-02-29 17:31:00 Memori [facility] Height 2018-12-23 18:03:00 167.64 cm [facility] Weight 2018-12-23 18:03:00 [facility] BMI Calculated 2018-12-23 18:03:00 Memori [facility] Systolic (mm Hg) 2018-12-23 18:03:00 Unruly rial [facility]ardo Diastolic (mm Hg) 2018-12-23 18:03:00 Mem orial [facility] Heart Rate 2018-12-23 18:03:00 [facility] Respitory Rate 2018-12-23 18:03:00 Memori al [facility] BMI Calculated 2018-11-27 15:59:00 Memori al [facility] Weight 2018-11-27 15:59:00 [facility] Height 2018-11-27 15:59:00 167.64 cm [facility] Heart Rate 2018-11-27 15:59:00 [facility] Respitory Rate 2018-11-27 15:59:00 Memori [facility] Systolic (mm Hg) 2018-11-27 15:59:00 Unruly rial [facility]ardo Diastolic (mm Hg) 2018-11-27 15:59:00 Mem orial [facility] BMI Calculated 2018-10-16 14:19:00 Memori [facility] Weight 2018-10-16 14:19:00 [facility] Height 2018-10-16 14:19:00 167.64 cm [facility] Heart Rate 2018-10-16 14:19:00 [facility] Respitory Rate 2018-10-16 14:19:00 [facility] Systolic (mm Hg) 2018-10-16 14:19:00 Unruly rial [facility]ardo Diastolic (mm Hg) 2018-10-16 14:19:00 Mem orial [facility] BMI Calculated 2018-10-01 13:18:00 Memori al [facility] Weight 2018-10-01 13:18:00 [facility] Height 2018-10-01 13:18:00 167.64 cm [facility] Respitory Rate 2018-10-01 13:18:00 Memori al [facility] Heart Rate 2018-10-01 13:18:00 [facility] Systolic (mm Hg) 2018-10-01 13:18:00 Unruly rial [facility]ardo Diastolic (mm Hg) 2018-10-01 13:18:00 Mem orial [facility] Procedures Procedure Date / Time Performing Clinician Source Performed POCT MOLECULAR FLU 2021-06-09 17:02:00 Maddy Simms [facility] POCT MOLECULAR STREP 2021-06-09 16:56:00 Maddy Simms [facility] TYPE AND SCREEN 2021-03-30 17:04:00 Jori Long [facility] COMPLETE BLOOD COUNT W/ 2021-03-30 17:04:00 Jori Long [facility] DIFFERENTIAL [facility] TOTAL PROTEIN 2021-03-30 17:04:00 Ethan [facility] ALBUMIN LEVEL 2021-03-30 17:04:00 Ethan [facility] CALCIUM LEVEL TOTAL 2021-03-30 17:04:00 Jori Long [facility] PHOSPHORUS LEVEL 2021-03-30 17:04:00 Ethan [facility] GLUCOSE, RANDOM 2021-03-30 17:04:00 Ethan [facility] BLOOD UREA NITROGEN 2021-03-30 17:04:00 Jori Long [facility] SERUM CREATININE 2021-03-30 17:04:00 Jori Long [facility] URIC ACID 2021-03-30 17:04:00 Jori Long [facility] FRACTIONATED BILIRUBIN 2021-03-30 17:04:00 [facility] ALKALINE PHOSPHATASE 2021-03-30 17:04:00 Jori Long [facility] LACTATE DEHYDROGENASE 2021-03-30 17:04:00 J[facility] ALANINE AMINOTRANSFERASE 2021-03-30 17:04:00 Jori Long [facility] ELECTROLYTE PANEL 2021-03-30 17:04:00 Jori Long [facility] MAGNESIUM LEVEL 2021-03-30 17:04:00 Jori Long [facility] HP MD T(15;17) PML-LEN 2021-03-30 17:04:00 Jori Long [facility] QUANTITATIVE PCR [place] Timothy [facility] COLLECTION, BLOOD Center [facility] 2021-03-30 17:04:00 Jori Long [facility] ANTIBODY SCREEN 2021-03-30 17:04:00 Jori Long [facility] Results CBC 2021-03-30 17:04:00 Jori Long [facility] MANUAL DIFFERENTIAL 2021-03-30 17:04:00 Jori Long [facility] SERUM CREATININE 2021-03-30 17:04:00 [facility]GLOMERULAR FILTRATION 2021-03-30 17:04:00 [facility] RATE [facility] HP MD T(15;17) PML-LEN 2021-03-30 17:04:00 Jori Long [facility] QUANTITATIVE PCR MD Timothy valdovinos INTERPRETATION AND REPORT Center CLOT EXPIRATION DATE 2021-03-30 17:04:00 Jori Long [facility] MD Timothy [facility] TMP INTERPRETATION 2021-03-30 17:04:00 Jori Long [facility] ANTIBODY SCREEN NEGATIVE MD Mendez [facility] POCT GRP A STREP 2021-03-16 16:11:00 Earle Iverson [facility] (MOLECULAR) Medical Branch XR CHEST 1 VW 2020-12-05 02:15:29 Ester [facility] CT ABDOMEN PELVIS W 2020-12-05 02:09:58 Ester [facility] CONTRAST Medical Branch POCT TEST 2020-12-05 01:31:00 Ester [facility] Medical Branch LIPASE 2020-12-05 01:29:00 Ester [facility] TROPONIN I 2020-12-05 01:29:00 [facility] COMP. METABOLIC PANEL 2020-12-05 01:29:00 Ester [facility] ([id number] CBC WITH DIFF 2020-12-05 01:29:00 Ester [facility] URINALYSIS 2020-12-05 01:29:00 Ester [facility] NOTICE OF PRIVACY 2020-12-05 01:06:38 Doctor Unassigned, No [facility] PRACTICES Name Medical Branch CONSENT/REFUSAL FOR 2020-12-05 01:05:01 [facility] Name Medical Branch POCT GRP A STREP 2020-12-04 00:42:00 Tessa Mendoza [facility] (MOLECULAR) Medical Branch MRI THORACIC SPINE W 2020-06-06 22:01:00 Caleb Kent [facility] CONTRAST MRI CERVICAL SPINE W 2020-06-06 22:01:00 Caleb Kent [facility] CONTRAST MRI BRAIN W WO CONTRAST 2020-06-06 22:00:00 Caleb Kent [facility] C-REACTIVE PROTEIN 2020-06-06 18:12:00 [facility] Natvarlal INTERLEUKIN 6 2020-06-06 18:12:00 [facility] ospital Natvarlal FERRITIN LEVEL 2020-06-06 18:12:00 [facility] ospital Natvarlal D-DIMER 2020-06-06 18:12:00 [facility] ospital Natvarlal LDH 2020-06-06 18:12:00 [facility] ospital Natvarlal FIBRINOGEN 2020-06-06 18:12:00 [facility] ospital Natvarlal CT CHEST WO CONTRAST 2020-06-06 18:03:12 [facility] URINE CULTURE 2020-06-04 13:58:00 Kanchan Downey [facility] spital URINALYSIS SCREEN AND 2020-06-04 13:58:00 [facility] MICROSCOPY, WITH REFLEX TO CULTURE HCG QUALITATIVE, URINE 2020-06-04 13:58:00 [facility] SCREEN COVID-19 QUALITATIVE 2020-06-04 13:45:00 [facility] RT-PCR HC COMPLETE BLD COUNT 2020-06-04 08:45:00 [facility] W/AUTO DIFF Imarendene COMPREHENSIVE METABOLIC 2020-06-04 07:56:00 [facility] PANEL Imarendenewe ESTIMATED GFR 2020-06-04 07:56:00 [facility] OCT, OPTIC NERVE - OU - 2020-03-08 19:34:42 Isidro Ruby [facility] BOTH EYES AUTOMATED VISUAL FIELD, 2020-03-08 19:34:38 Tung Isidro [facility] EXTENDED - OU - BOTH EYES DURABLE MEDICAL EQUIPMENT 2020-02-16 15:31:42 Yesi Maldonado [facility] Toni BASIC METABOLIC PANEL 2020-02-16 10:10:00 Ies[facility]Sharlene [facility] ESTIMATED GFR 2020-02-16 10:10:00 Yesi Maldonado [facility] DURABLE MEDICAL EQUIPMENT 2020-02-15 20:56:49 Caleb Roque [facility] EMG 2020-02-15 17:46:48 L[facility] HC COMPLETE BLD COUNT 2020-02-15 10:00:00 [facility]FF BASIC METABOLIC PANEL 2020-02-15 10:00:00 [facility] EST[facility]FR 2020-02-15 10:00:00 Jasmeet Benedict Ho spital VISUAL EVOKED POTENTIALS 2020-02-14 16:52:23 Dora Montalvo [facility] (VEP) HC COMPLETE BLD COUNT 2020-02-14 09:15:00 [facility] W/AUTO DIFF BASIC METABOLIC PANEL 2020-02-14 09:15:00 [facility] ESTIMATED GFR 2020-02-14 09:15:00 Jasmeet Benedict Ho spital MRI LUMBAR SPINE W WO 2020-02-13 15:28:12 [facility] BRAIN VENOGRAM 2020-02-13 14:47:[facility] COMPLETE BLD COUNT 2020-02-13 09:05:00 [facility] W/AUTO DIFF BASIC METABOLIC PANEL 2020-02-13 09:00:00 [facility] ESTIMATED GFR 2020-02-13 09:00:00 Jasmeet Benedict Ho spital HC COMPLETE BLD COUNT 2020-02-12 15:18:00 [facility] W/AUTO DIFF BASIC METABOLIC PANEL 2020-02-12 13:00:00 [facility] ESTIMATED GFR 2020-02-12 13:00:00 Jasmeet Benedict Ho spital VENIPUNC NEED PHYS 2020-02-08 15:39:11 Familia Colon [facility] SKILL,DX OR RX MISCELLANEOUS REFERRAL 2020-02-08 14:00:00 Evens Horne [facility] TEST Marck US DUPLEX VENOUS UPPER 2020-02-07 22:26:50 [facility] EXTREMITY RIGHT VENIPUNC NEED PHYS 2020-02-07 14:18:07 Javier Kolb [facility] SKILL,DX OR RX HC COMPLETE BLD COUNT 2020-02-07 10:00:00 [facility] W/AUTO DIFF BASIC METABOLIC PANEL 2020-02-07 10:00:00 [facility] ESTIMATED GFR 2020-02-07 10:00:00 [facility] HC COMPLETE BLD COUNT 2020-02-06 11:18:00 [facility] W/AUTO DIFF BASIC METABOLIC PANEL 2020-02-06 11:18:00 [facility] ESTIMATED GFR 2020-02-06 11:18:00 [facility] XR CHEST 1 VW PORTABLE 2020-02-06 02:27:51 [facility] ECG 12-LEAD 2020-02-06 02:12:53 [facility] HC COMPLETE BLD COUNT 2020-02-05 11:00:00 [facility] W/AUTO DIFF BASIC METABOLIC PANEL 2020-02-05 09:00:00 [facility] ESTIMATED GFR 2020-02-05 09:00:00 [facility] IGG SYNTHESIS RATE STUDY 2020-02-04 16:00:00 [facility] FUNGUS CULTURE 2020-02-04 15:56:00 [facility] AFB CULTURE 2020-02-04 15:56:00 [facility] IR LUMBAR PUNCTURE 2020-02-04 15:00:00 [facility] CSF CULTURE 2020-02-04 14:56:00 [facility] CRYPTOCOCCAL ANTIGEN 2020-02-04 14:56:00 Tosha [facility] SCREEN GRAM STAIN 2020-02-04 14:56:00 Paola [facility] CSF CELL COUNT WITH 2020-02-04 14:56:00 Tosha, [facility] DIFFERENTIAL GLUCOSE LEVEL, CSF 2020-02-04 14:56:00 [facility] IGG SYNTHESIS RATE STUDY 2020-02-04 14:56:00 [facility] VDRL, CSF 2020-02-04 14:56:00 [facility] LYME DISEASE REFLEXIVE 2020-02-04 14:56:00 Tosha [facility] PANEL, CSF CYTOMEGALOVIRUS BY PCR 2020-02-04 14:56:00 [facility] MISCELLANEOUS REFERRAL 2020-02-04 14:56:00 Paola [facility] TEST ENTEROVIRUS BY PCR 2020-02-04 14:56:00 [facility] HERPES SIMPLEX VIRUS BY 2020-02-04 14:56:00 [facility] PCR FLOW CYTOMETRY EVALUATION 2020-02-04 14:56:00 [facility] [place] VIRUS ANTIBODY 2020-02-04 14:56:00 [facility] PANEL, CSF ANGIOTENSIN CONVERTING 2020-02-04 14:56:00 [facility] ENZYME, CSF OLIGOCLONAL BANDING, CSF 2020-02-04 14:56:00 [facility] 14:56[facility]00 [facility] AWAKE/ASLEEP LESS THAN 2020-02-04 12:19:32 [facility] 41 MIN ECG 12-LEAD 2020-02-04 09:50:41 Foster, Manan [facility] BLOOD CULTURE, AEROBIC & 2020-02-04 06:50:00 [facility] ANAEROBIC BLOOD CULTURE, AEROBIC & 2020-02-04 06:40:[address] [facility] [facility] ANAEROBIC MISCELLANEOUS REFERRAL 2020-02-04 06:40:00 Manan Hernández [facility] TEST HC COMPLETE BLD COUNT 2020-02-04 06:40:00 [facility] W/AUTO DIFF BASIC METABOLIC PANEL 2020-02-04 06:40:00 [facility] ESTIMATED GFR 2020-02-04 06:40:[address] [facility] URINE CULTURE 2020-02-04 05:56:00 Paola [facility] URINALYSIS SCREEN AND 2020-02-04 05:56:00 Manan Hernández [facility] MICROSCOPY, WITH REFLEX TO CULTURE URINE DRUGS OF ABUSE 2020-02-04 05:56:00 Manan Hernández [facility] SCREEN COVID-19 QUALITATIVE 2020-02-04 04:41:00 Kim Guevara Janice [facility] RT-PCR MRI BRAIN & ORBIT W WO 2020-02-04 03:12:00 Manan Hernández [facility] CONTRAST MRI CERVICAL SPINE W 2020-02-04 03:12:00 Manan Hernández [facility] CONTRAST MRI THORACIC SPINE W 2020-02-04 03:12:00 Manan Hernández [facility] CONTRAST CYTOLOGY 2020-02-04 01:17:00 [facility] (NON-GYNECOLOGICAL) REQUEST COMPREHENSIVE METABOLIC 2020-02-03 23:35:00 PoolerManan [facility] PANEL ESTIMATED GFR 2020-02-03 23:35:[address] [facility] HC COMPLETE BLD COUNT 2020-02-03 23:25:00 Manan Hernández [facility] W/AUTO DIFF ELMER 2020-02-03 23:25:00 PoolerManan [facility] FOLATE LEVEL 2020-02-03 23:25:00 PoolerManan [facility] VITAMIN B12 LEVEL 2020-02-03 23:25:00 [facility] C-REACTIVE PROTEIN 2020-02-03 23:25:00 [facility] HOMOCYSTINE, PLASMA 2020-02-03 23:25:00 [facility] CORTISOL LEVEL, RANDOM 2020-02-03 23:25:00 [facility] SEDIMENTATION RATE 2020-02-03 23:25:00 [facility] RHEUMATOID FACTOR 2020-02-03 23:25:00 [facility] THYROID STIMULATING 2020-02-03 23:25:00 [facility] HORMONE T4, FREE 2020-02-03 23:25:00 [facility] T3 2020-02-03 23:25:00 [facility] SYPHILIS TREPONEMA SCREEN 2020-02-03 23:25:00 [facility] WITH RPR CONFIRMATION (REVERSE ALGORITHM) HIV AG/AB COMBINATION 2020-02-03 23:25:[address] [facility] VITAMIN D 25 HYDROXY LEVEL 2020-02-03 23:25:00 [facility] B. BURGDORFERI ABS TOTAL, 2020-02-03 23:25:00 [facility] SERUM CT HEAD WO CONTRAST 2020-02-03 21:14:55 [facility] HCG QUANTITATIVE, SERUM 2020-02-03 19:27:00 [facility] Tubal ligation [facility] Plan of Care Planned Activity Planned Date Details Comments Source Future Scheduled 2021-12-29 COVID-19 Vaccination Uni versity of Test 09:55:46 (#1) [code = COVID-19 [facility] Vaccination (#1)] [facility] Future Scheduled 2021-12-19 HEPATITIS B VACCINES (1 [facility] Test 11:56:14 of 3 - 3-dose series) Hospit al [code = HEPATITIS B VACCINES (1 of 3 - 3-dose series)] Future Scheduled 2021-12-19 COVID-19 VACCINE (#1) [facility] Test 11:56:14 [code = COVID-19 Hospital VACCINE (#1)] Future Scheduled 2021-12-19 Pneumococcal Vaccine: [facility] Test 11:56:14 Pediatrics (0 to 5 Hospital Years) and At-Risk Patients (6 to 64 Years) (1 - PCV) [code = Pneumococcal Vaccine: Pediatrics (0 to 5 Years) and At-Risk Patients (6 to 64 Years) (1 - PCV)] Future Scheduled 2021-12-19 Hepatitis C screening [facility] Test 11:56:14 (procedure) [code = Hospital 994948837] Future Scheduled 2021-12-19 Screening for malignant [facility] Test 11:56:14 neoplasm of cervix Hospital (procedure) [code = 005845007] Future Scheduled 2021-12-19 INFLUENZA VACCINE [code [facility] Test 11:56:14 = INFLUENZA VACCINE] Hospita l Future Scheduled 2021-12-08 HEPATITIS B VACCINES (1 [facility] Test 22:34:45 of 3 - 3-dose series) [...] thodist Test 22:34:45 (procedure) [code = Hospital 045919868] Future Scheduled 2021-12-08 Screening for malignant [facility] Test 22:34:45 neoplasm of cervix Hospital (procedure) [code = 574673670] Future Scheduled 2021-12-08 INFLUENZA VACCINE [code [facility] Test 22:34:45 = INFLUENZA VACCINE] Hospita l Future Scheduled 2021-11-19 COVID-19 Vaccination Uni versity of Test 14:10:01 (#1) [code = COVID-19 [facility] Vaccination (#1)] Cancer [facility] Future Scheduled 2021-10-12 COVID-19 Vaccination Uni versity of Test 03:31:54 (#1) [code = COVID-19 [facility] Vaccination (#1)] Cancer [facility] Future Scheduled 2021-05-22 COVID-19 VACCINE (1) [facility] Test 13:11:02 [code = COVID-19 Hospital VACCINE (1)] Future Scheduled 2021-05-22 Hepatitis C screening [facility] Test 13:11:02 (procedure) [code = Hospital 928164710] Future Scheduled 2021-05-22 INFLUENZA VACCINE [code [facility] Test 13:11:02 = INFLUENZA VACCINE] Hospita l Future Scheduled 2021-05-22 Screening for malignant [facility] Test 13:11:02 neoplasm of cervix Hospital (procedure) [code = 591548506] Future Scheduled 2020-10-27 COMPREHENSIVE METABOLIC Ordered: [facility] Test 12:31:11 PANEL [code = 92635-8] 10/27/2020 Medic ine Future Scheduled 2020-10-27 CBC W/AUTO DIFF WITH Ordered: [facility] Test 12:31:11 PLATELETS [code = 10/27/2020 Medicine 22008-9] Future Scheduled 2020-10-27 SEDIMENTATION RATE Ordered: [facility] Test 12:31:11 MODIFIED WESTERGREN 10/27/2020 Medicine [code = 4537-7] Future Scheduled 2020-10-27 RANDOM URINE Ordered: [facility] Janet ege of Test 12:31:11 PROTEIN/CREATININE 10/27/2020 Medicine [code = 2890-2] Future Scheduled 2020-10-27 URINALYSIS, COMPLETE Ordered: [facility] of Test 12:31:11 W/REFLEX TO CULTURE 10/27/2020 Medicine [code = 34573-4] Future Scheduled 2020-10-27 COMPLEMENT C3 AND C4 Ordered: [facility] of Test 12:31:11 [code = NOCPT] 10/27/2020 Medicine Future Scheduled 2020-10-27 DNA (DS) ANTIBODY, Ordered: [facility] Test 12:31:11 CRITHIDIA IFA W/RX 10/27/2020 Medicine TITER [code = 6457-6] Future Scheduled 2020-10-27 C-REACTIVE PROTEIN Ordered: [facility] of Test 12:31:11 [code = 1988-5] 10/27/2020 Medicine Future Scheduled 2020-10-27 HAPTOGLOBIN [code = Ordered: [facility] of Test 12:31:11 92580-1] 10/27/2020 Medicine Future Scheduled 2020-10-27 LACTATE DEHYDROGENASE Ordered: [facility] of Test 12:31:11 [code = 2532-0] 10/27/2020 Medicine Future Scheduled 2020-10-27 RETICULOCYTE WITH Ordered: [facility] of Test 12:31:11 ABSOLUTE [code = NOCPT] 10/27/2020 Medi cine Future Scheduled 2020-10-27 PATH REVIEW, SMEAR Ordered: [facility] of Test 12:31:11 [code = 56713-1] 10/27/2020 Medicine Future Scheduled 2020-10-27 DIRECT ANTIGLOBULIN Ordered: [facility] Test 12:31:11 TEST [code = 24362] 10/27/2020 Medicine Future Scheduled 2020-10-27 COVID-19 Vaccine (1) [facility] Test 11:49:19 [code = COVID-19 Medicine Vaccine (1)] Future Scheduled 2020-10-27 TETANUS SHOT (ADULT) [facility] Test 11:49:19 [code = TETANUS SHOT Medicin e (ADULT)] Future Scheduled 2020-10-27 BMI FOLLOW UP PLAN [facility] Test 11:49:19 [code = BMI FOLLOW UP Medici ne PLAN] Future Scheduled 2020-10-27 Hepatitis C screening [facility] Test 11:49:19 (procedure) [code = Medicine 297588226] Future Scheduled 2020-10-27 Human immunodeficiency B [facility] Test 11:49:19 virus screening Medicine (procedure) [code = 857160449] Future Scheduled 2020-10-27 Screening for malignant [facility] of Test 11:49:19 neoplasm of cervix Medicine (procedure) [code = 535820708] Future Scheduled 2020-10-27 FLU VACCINE > 6 MONTHS B [facility] of Test 11:49:19 [code = FLU VACCINE > 6 Medi cine MONTHS] Future Scheduled 2020-09-08 COVID-19 Vaccine (1) [facility] of Test 13:06:03 [code = COVID-19 Medicine Vaccine (1)] Future Scheduled 2020-09-08 TETANUS SHOT (ADULT) [facility] of Test 13:06:03 [code = TETANUS SHOT Medicin e (ADULT)] Future Scheduled 2020-09-08 BMI FOLLOW UP PLAN [facility] Test 13:06:03 [code = BMI FOLLOW UP Medici ne PLAN] Future Scheduled 2020-09-08 Hepatitis C screening [facility] Test 13:06:03 (procedure) [code = Medicine 882386782] Future Scheduled 2020-09-08 Human immunodeficiency B [facility] Test 13:06:03 virus screening Medicine (procedure) [code = 275211446] Future Scheduled 2020-09-08 Screening for malignant [facility] 13:06:03 neoplasm of cervix Medicine (procedure) [code = 592375903] Future Scheduled 2020-09-08 FLU VACCINE > 6 MONTHS B [facility] Test 13:06:03 [code = FLU VACCINE > 6 Medi cine MONTHS] Future Scheduled COVID-19 VACCINE (1) [facility] Test [code = COVID-19 Hospital VACCINE (1)] Future Scheduled Hepatitis C screening [facility] Test (procedure) [code = Hospital 489124149] Future Scheduled INFLUENZA VACCINE [code [facility] Test = INFLUENZA VACCINE] Hospita l Future Scheduled Screening for malignant [facility] Test neoplasm of cervix Hospital (procedure) [code = 321729291] Future Scheduled COVID-19 VACCINE (1) [facility] Test [code = COVID-19 Hospital VACCINE (1)] Future Scheduled Hepatitis C screening [facility] Test (procedure) [code = Hospital 543138840] Future Scheduled INFLUENZA VACCINE [code [facility] Test = INFLUENZA VACCINE] Hospita l Future Scheduled Screening for malignant [facility] Test neoplasm of cervix Hospital (procedure) [code = 887423883] Encounters Start End Encounter Admission Attending Care Care Encounter Source Date/Time Date/Time Type Type Clinicians Facility Department ID 2022-01-07 Outpatient Soco Savage [facility] [id number] 2 Common 08:34:01 [facility] 2021-11-21 Outpatient Soco Savage [facility] [id number] 2 Common 13:25:00 [facility] 2021-05-25 Outpatient Soco Savage [facility] [id number] 2 Common 09:21:01 [facility] 2021-05-16 Outpatient Savage, Na STLMLC STLMLC [id number] 2 Common 14:39:54 [facility] 2021-05-16 Outpatient Savage, Na STLMLC STLMLC [id number] 2 Common 14:39:03 [facility] 2021-05-16 Outpatient Savage, Na STLMLC STLMLC [id number] 2 Common 14:08:33 [id number] [facility] 2021-05-16 Outpatient Savage, Na STLMLC STLMLC [id number] 2 Common 13:55:22 [id number] [facility] 2021-05-16 Outpatient Savage, Na STLMLC STLMLC [id number] 2 Common 13:50:31 [id number] [facility] 2021-05-16 Outpatient Savage, Na STLMLC STLMLC [id number] 2 Common 13:20:21 [id number] [facility] 2021-05-16 Outpatient Savage, Na STLMLC STLMLC [id number] 2 Common 13:00:40 [id number] [facility] 2021-05-16 Outpatient Savage, Na STLMLC STLMLC [id number] 2 Common 12:46:28 [id number] [facility] 2021-05-16 Outpatient Savage, Na STLMLC STLMLC [id number] 2 Common 12:38:13 [id number] [facility] 2021-05-16 Outpatient Savage, Na STLMLC STLMLC [id number] 2 Common 12:35:30 [id number] [facility] 2021-05-16 Outpatient Savage, Na STLMLC STLMLC [id number] 2 Common 12:34:43 [id number] [facility] 2021-05-16 Outpatient Savage, Na STLMLC STLMLC [id number] 2 Common 12:31:51 [id number] [facility] 2021-05-16 Outpatient Savage, Na STLMLC STLMLC [id number] 2 Common 12:06:00 [id number] [facility] 2021-05-16 Outpatient Savage, Na STLMLC STLMLC [id number] 2 Common 12:01:01 [id number] [facility] 2021-05-16 Outpatient Savage, Na STLMLC STLMLC [id number] 2 Common 11:58:36 [id number] [facility] 2021-05-16 Outpatient Savage, Na STLMLC STLMLC [id number] 2 Common 11:57:24 [id number] [facility] 2021-05-16 Outpatient Savage, Na STLMLC STLMLC [id number] 2 Common 11:34:36 [id number] [facility] 2021-05-16 Outpatient Savage, Na STLMLC STLMLC [id number] 2 Common 11:08:41 [id number] [facility] 2021-05-16 Outpatient Savage, Na STLMLC STLMLC [id number] 2 Common 11:06:29 [id number] [facility] 2021-05-16 Outpatient Savage, Na STLMLC STLMLC [id number] 2 Common 11:05:46 [id number] [facility] 2022-04-05 2022-04-05 Outpatient MHIE MHIE [id number] Memoria 09:15:00 09:15:00 20 l Ricardo 2022-02-01 2022-02-02 Outpatient nullFlavo MNA [id number] Memoria 14:15:00 04:59:59 r Neurology 19 l Ean Silva 2022-02-01 2022-02-01 [id number] 09:15:00 23:59:59 David 19 Marck 2022-02-01 2022-02-01 Outpatient MHIE MHIE [id number] Memoria 09:15:00 09:15:00 19 l Ricardo 2022-01-09 2022-01-09 OFFICE STLMLC STLMLC [id number] Co mmon 00:00:00 00:00:00 VISIT EST Spir it PT LEVEL 3 [facility] 2021-12-28 2021-12-29 Outpatient nullFlavo MNA [id number] Memoria 18:15:00 04:59:59 r Neurology 18 l Ean Silva 2021-12-28 2021-12-28 [id number] 13:15:00 23:59:59 David 18 Marck 2021-12-28 2021-12-28 Outpatient MHIE MHIE [id number] Memoria 13:15:00 13:15:00 18 matt Silva 2021-12-20 2021-12-21 Outpatient nullFlavo MNA [id number] Memoria 14:30:00 04:59:59 r Neurology 17 l Ean Silva 2021-12-20 2021-12-20 [facility] [id number] 09:30:00 23:59:59 David 17 Marck 2021-12-20 2021-12-20 Outpatient MHIE MHIE [id number] Memoria 09:30:00 09:30:00 17 matt Silva 2021-12-19 2021-12-19 OFFICE STLMLC STLMLC [id number] Co mmon 00:00:00 00:00:00 VISIT Spirit ESTAB PT - CHI LEVEL 4 [facility] 2021-12-17 2021-12-17 (TEL) STLMLC STLMLC [id number] Co mmon 00:00:00 00:00:00 Spirit [facility] 2021-10-29 2021-10-29 (TEL) STLMLC STLMLC [id number] Co mmon 00:00:00 00:00:00 Spirit - [facility] 2021-10-24 2021-10-24 OFFICE STLMLC STLMLC [id number] Co mmon 00:00:00 00:00:00 VISIT Spirit ESTAB PT - CHI LEVEL 4 [facility] 2021-06-12 2021-06-12 (TEL) STLMLC STLMLC [id number] Co mmon 00:00:00 00:00:00 Spirit - [facility] 2021-06-12 2021-06-12 OFFICE STLMLC STLMLC [id number] Co mmon 00:00:00 00:00:00 VISIT EST Spir it PT LEVEL 3 - [facility] 2021-06-09 2021-06-09 Outpatient R MENDEZ [facility] [id number] Univers 10:40:00 11:06:50 MADDY ity of [facility] 2021-06-09 2021-06-09 Urgent Mendez [facility] 1.2.840.114 [id number] Univers 10:40:00 11:06:50 Care [facility] 350.1.13.10 it y of [place] 4.2.7.2.686 Raj as NINO?BLEA [id number] [address] MEDICAL OFFICE BUILDING 2021-06-09 2021-06-09 Telephone Shaylee Ross 1.2.840.114 [id number] Univers 00:00:00 00:00:00 TIMOTHY 350.1.13.10 it y of [facility] 4.2.7.2.686 Raj as [id number] [address] 2021-06-02 2021-06-02 (TEL) STLMLC STLMLC [id number] Co mmon 00:00:00 00:00:00 [facility] 2021-05-21 2021-05-21 (TEL) STLMLC STLMLC [id number] Co mmon 00:00:00 00:00:00 [facility] 2021-05-16 2021-05-16 OFFICE STLMLC STLMLC [id number] Co mmon 00:00:00 00:00:00 VISIT [facility] LEVEL 4 [facility] 2021-05-15 2021-05-15 (TEL) STLMLC STLMLC [id number] Co mmon 00:00:00 00:00:00 [facility] 2021-04-27 2021-04-27 (TEL) STLMLC STLMLC [id number] Co mmon 00:00:00 00:00:00 [facility] 2021-03-30 2021-03-30 [facility] Jori Long 1.2.840.1 [id number] Univers 07:00:00 23:59:00 Encounter 48118.1.1 it y of 3.412.2.7 Jessica .3.008988 MD Collins [facility] 2021-03-30 2021-03-30 Hospital JEANNIE Jori Long 1.2.840.1 [id number] Univers 07:00:00 23:59:00 Encounter 23407.1.1 it y of 3.412.2.7 [place] .3.707400 MD Geronimo8 [facility] 2021-03-30 2021-03-30 Office Jori Long 1.2.840.1 [id number] Univers 09:30:00 09:45:00 Visit Nicki Stlaey 58857.1.1 ity of 3.412.2.7 [place] .3.113655 MD Geronimo8 [facility] 2021-03-30 2021-03-30 Office JAENNIE Jori Long 1.2.840.1 [id number] Univers 09:30:00 09:45:00 Visit Nicki Staley 57365.1.1 ity of 3.412.2.7 [place] .3.467132 MD Geronimo8 [facility] 2021-03-30 2021-03-30 Valentina Staley 1.2.840.1 [id number] Univers 00:00:00 00:00:00 Only Nicki 08565.1.1 it y of 3.412.2.7 [place] .3.520152 MD Geronimo8 [facility] 2021-03-30 2021-03-30 Travel 1.2.840.1 1.2.458.234 [id number] Univers 00:00:00 00:00:00 58206.1.1 350.1.13.41 ity of 3.412.2.7 2.[place]7.3.698 [place] .3.681302 084.8 MD [facility] 2021-03-30 2021-03-30 Jori Nicholson 1.2.840.1 [id number] Univers 00:00:00 00:00:00 Only 96740.1.1 ity of 3.412.2.7 [place] .3.979113 MD Geronimo8 [facility] 2021-03-30 2021-03-30 Valentina Staley, 1.2.840.1 [id number] Univers 00:00:00 00:00:00 Only Nicki 14151.1.1 it y of 3.412.2.7 [place] .3.875972 MD Geronimo8 [facility] 2021-03-30 2021-03-30 Travel 1.2.840.1 1.2.037.778 [id number] Univers 00:00:00 00:00:00 18594.1.1 350.1.13.41 ity of 3.412.2.7 [place].3.698 [place] .3.062002 084.8 MD Geronimo8 [facility] 2021-03-30 2021-03-30 Jori Nicholson 1.2.840.1 [id number] Univers 00:00:00 00:00:00 Only 05411.1.1 ity of 3.412.2.7 [place] .3.902800 MD Geronimo8 [facility] 2021-03-16 2021-03-16 Outpatient R ZAYRA [facility] [id number] Univers 10:20:00 10:27:28 EARLE cueva [facility] 2021-03-16 2021-03-16 Urgent Earle Iverson [facility] 1.2.840. 114 [id number] Univers 09:54:29 10:27:28 [facility] 350.1.13.10 [facility] 4.2.7.2.686 Raj as NINO?BLEA [id number] [address] MEDICAL OFFICE BUILDING 2021-03-13 2021-03-13 (TEL) STLC STLMLC [id number] Co mmon 00:00:00 00:00:00 [facility] 2021-03-12 2021-03-12 (TEL) STLMLC STLMLC [id number] Co mmon 00:00:00 00:00:00 [facility] 2021-02-20 2021-02-20 Outpatient R ZAYRA [facility] [id number] Univers 09:20:00 09:38:06 EARLE cueva [facility] 2021-02-20 2021-02-20 [facility] 1.2.840.114 [id number] Univers 09:11:11 09:38:06 Care [facility] 350.1.13.10 i ty of [place] 4.2.7.2.686 Raj as NINO?BLEA [id number] Me dical [address] MEDICAL OFFICE BUILDING 2021-01-24 2021-01-24 OFFICE STLMLC STLMLC [id number] Co mmon 00:00:00 00:00:00 VISIT EST Spir it PT LEVEL 3 [facility] 2021-01-06 2021-01-06 Outpatient STLMLC STLMLC [id number] Common 00:00:00 00:00:00 [facility] 2021-01-05 2021-01-05 Outpatient STLMLC STLMLC [id number] Common 00:00:00 00:00:00 [facility] 2021-01-05 2021-01-05 Outpatient STLMLC STLMLC [id number] Common 00:00:00 00:00:00 [facility] 2020-12-29 2020-12-29 Outpatient STLMLC STLMLC [id number] Common 00:00:00 00:00:00 [facility] 2020-12-28 2020-12-28 Outpatient STLMLC STLMLC [id number] Common 00:00:00 00:00:00 [facility] 2020-12-26 2020-12-26 Outpatient STLMLC STLMLC [id number] Common 00:00:00 00:00:00 [facility] 2020-12-08 2020-12-08 Telephone Harsh 1.2.840.1 [id number] Soy 00:00:00 00:00:[address] 3.430.2.7 Hospit a .3.660535 l .8 2020-12-07 2020-12-07 Orders Soco Savage Ly 1.2.840.1 [id number] Methodi 00:00:00 00:00:[address] 3.430.2.7 Hospit a .3.811685 l .8 2020-12-06 2020-12-06 [facility] [id number] Univers 12:30:00 12:30:00 INOCENTE shearer [facility] 2020-12-05 2020-12-05 Telephone NATI Mason 1.2.919.602 [id number] Univers 00:00:00 00:00:00 Shilpa AGUIRRE 350.1.13.10 it y of [facility] 4.2.7.2.686 Raj as [id number] [facility] 019 [place] 2020-12-04 2020-12-04 Emergency [facility] 1.2.840.114 [id number] Univers 20:55:00 23:38:00 Truong Cornelius 350.1.13.10 i ty [facility] 4.2.7.2.686 [place] [facility] [id number] [place] [id number] [place] 2020-12-04 2020-12-04 Outpatient R ESTER [facility] [id number] Univers 20:51:53 20:51:53 [facility] 2020-12-04 2020-12-04 [facility] [id number] Common 00:00:00 00:00:00 [facility] 2020-12-03 2020-12-03 Urgent Provider, [facility] 1.2.840.114 [id number] Univers 18:59:54 19:19:54 Care Tessa Mendoza [facility] 350.1.13.10 ity [facility] 4.2.7.2.686 Raj as Professio [id number] [facility] [address] [place] [address] 2020-12-03 2020-12-03 Outpatient R REJI [facility] [id number] Univers 18:40:00 18:40:00 TESSA cueva [facility] [place] [facility] 2020-12-01 2020-12-01 Ambulatory nullFlavo MNA [id number] Memoria 16:30:00 16:30:00 Pre-Reg r Neurology 16 l [place] Ricardo 2020-12-01 2020-12-01 Ambulatory nullFlavo MNA [id number] Memoria 16:30:00 16:30:00 Pre-Reg r Neurology 16 l [place] Ricardo 2020-12-01 2020-12-01 Outpatient MHIE MHIE [id number] Memoria 11:30:00 11:30:00 16 l Ricardo 2020-12-01 2020-12-01 Outpatient AISF Chung MABEL [id number] 11:30:00 11:30:00 David 16 [place]ck 2020-10-27 2020-10-27 Office ROMULO Walters 1.2.840.114 [id number] 11:43:47 12:34:19 Visit Chika AMBULATOR 350.1.13.21 Y 0.2.7.2.686 [id number] 2020-10-27 2020-10-27 Office ROMULO Walters 1.2.840.[id number] [place] [address] 11:43:47 12:34:19 Visit Chika AMBULATOR 350.1.13.21 College Y 0.2.7.2.686 of [id number] [facility] 370 e 2020-10-18 2020-10-18 Outpatient STLMLC STLC [id number] Common 00:00:00 00:00:00 [facility] 2020-10-13 2020-10-13 Outpatient MHIE MHIE [id number] Memoria 10:30:00 10:30:00 14 l Ricardo 2020-10-13 2020-10-13 Outpatient MHIE MHIE [id number] Memoria 10:30:00 10:30:00 14 l Ricardo 2020-10-12 2020-10-13 Outpatient nullFlavo MNA [id number] Memoria 19:15:00 04:59:59 r Neurology 15 l [place] Ricardo 2020-10-12 2020-10-13 Outpatient nullFlavo MNA [id number] Memoria 19:15:00 04:59:59 r Neurology 15 l Ean Silva 2020-10-12 2020-10-12 Outpatient FAYE ChungMISCHER MISCHER 002 [id number] 14:15:00 23:59:59 David 15 Marck 2020-10-12 2020-10-12 Outpatient MHIE IE [id number] Memoria 14:15:00 14:15:00 15 matt Silva 2020-10-11 2020-10-11 Ambulatory nullFlavo MNA [id number] Memoria 18:30:00 18:30:00 Pre-Reg r Neurology 14 l Ean Silva 2020-10-11 2020-10-11 [id number] 13:30:00 13:30:00 David 14 Marck 2020-10-11 2020-10-11 Outpatient STLMLC STLC [id number] Common 00:00:00 00:00:00 [facility] 2020-09-08 2020-09-08 Office SelenaAIME box [id number] 10:12:53 13:09:00 Visit Chika AMBULATOR [id number] Suresh Y [id number] 2020-09-08 2020-09-08 Office Selena BCM [id number] [place] [address] 10:12:53 13:09:00 Visit Chika AMBULATOR [id number] Philip Suresh Y [id number] of [id number] [facility] 370 e 2020-09-08 2020-09-08 Outpatient STLMLC STLMLC [id number] Common 00:00:00 00:00:00 [facility] 2020-09-07 2020-09-07 Outpatient STLMLC STLMLC [id number] Common 00:00:00 00:00:00 [facility] 2020-09-01 2020-09-01 Outpatient STLMLC STLMLC [id number] Common 00:00:00 00:00:00 [facility] 2020-08-29 2020-08-30 Outpatient nullFlavo MNA [id number] Memoria 20:45:00 04:59:59 r Neurology 13 l Ean Silva 2020-08-29 2020-08-30 Outpatient nullFlavo MNA [id number] Memoria 20:45:00 04:59:59 r Neurology 13 l Ean Silva 2020-08-29 2020-08-29 Outpatient Kremaxime, MHMISCHER MHMISCHER [id number] 15:45:00 23:59:59 David 13 Marck 2020-08-29 2020-08-29 Outpatient MHIE MHIE [id number] Memoria 15:45:00 15:45:00 13 matt Silva 2020-08-28 2020-08-28 Outpatient STLMLC STLMLC [id number] Common 00:00:00 00:00:00 [facility] 2020-08-15 2020-08-15 Outpatient STLMLC STLMLC [id number] Common 00:00:00 00:00:00 [facility] 2020-08-08 2020-08-08 Outpatient STLMLC STLMLC [id number] Common 00:00:00 00:00:00 [facility] 2020-08-08 2020-08-08 Outpatient STLMLC STLMLC [id number] Common 00:00:00 00:00:00 [facility] 2020-08-07 2020-08-07 Outpatient STLMLC STLMLC [id number] Common 00:00:00 00:00:00 [facility] 2020-07-26 2020-07-26 Outpatient STLMLC STLMLC [id number] Common 00:00:00 00:00:00 [facility] 2020-07-20 2020-07-20 Outpatient STLMLC STLMLC [id number] Common 00:00:00 00:00:00 [facility] 2020-07-10 2020-07-10 Outpatient STLMLC STLMLC [id number] Common 00:00:00 00:00:00 [facility] 2020-07-10 2020-07-10 Outpatient STLMLC STLMLC [id number] Common 00:00:00 00:00:00 [facility] 2020-07-06 2020-07-06 Outpatient STLMLC STLMLC [id number] Common 00:00:00 00:00:00 [facility] 2020-07-04 2020-07-04 Outpatient STLMLC STLMLC [id number] Common 00:00:00 00:00:00 [facility] 2020-06-30 2020-06-30 Outpatient STLMLC STLMLC [id number] Common 00:00:00 00:00:00 [facility] 2020-06-27 2020-06-27 Outpatient STLMLC STLMLC [id number] Common 00:00:00 00:00:00 [facility] 2020-06-20 2020-06-20 Outpatient STLMLC STLMLC [id number] Common 00:00:00 00:00:00 [facility] 2020-06-19 2020-06-19 Outpatient STLMLC STLMLC [id number] Common 00:00:00 00:00:00 [facility] 2020-06-14 2020-06-16 Outside nullFlavo MNA [id number] Memoria 21:54:19 05:59:59 Medical r Neurology 01 l Records Ean Lrann 2020-06-14 2020-06-16 Outside nullFlavo MNA [id number] Memoria 21:54:19 05:59:59 Medical r Neurology 01 l Records [place] [facility] 2020-06-14 2020-06-15 Outpatient MHMISCHER MHMISCHER [id number] 15:54:19 23:59:59 2020-06-12 2020-06-12 Outpatient STLMLC STLMLC [id number] Common 00:00:00 00:00:00 [facility] 2020-06-12 2020-06-12 Outpatient STLMLC STLMLC [id number] Common 00:00:00 00:00:00 [facility] 2020-06-10 2020-06-10 Infusion Mane, 1.2.840.1 [id number] Methodi 11:41:17 14:59:06 Marques Lobo 69927.1.[address] 3.430.2.7 Hospit a .3.527529 l .8 2020-06-10 2020-06-10 Travel 1.2.840.1 1.2.809.961 [id number] Methodi 00:00:00 00:00:[address] 3.430.2.7 0.2.7.3.698 Ho spita .3.774775 084.8 l .8 2020-06-10 2020-06-10 Orders Anival, 1.2.840.1 [id number] Methodi 00:00:00 00:00:00 Only Sue 14255.1.[address] 3.430.2.7 Hospit a .3.150435 l .8 2020-06-10 2020-06-10 Telephone Anival, 1.2.840.1 [id number] Methodi 00:00:00 00:00:[address] 3.430.2.7 Hospit a .3.382055 l .8 2020-06-10 2020-06-10 Orders Anival, 1.2.840.1 [id number] Methodi 00:00:00 00:00:00 Only Sue 39701.1.[address] 3.430.2.7 Hospit a .3.567283 l .8 2020-06-09 2020-06-09 Outpatient STLMLC STLMLC [id number] Common 00:00:00 00:00:00 [facility] 2020-06-09 2020-06-09 Outpatient STLMLC STLMLC [id number] Common 00:00:00 00:00:00 [facility] 2020-06-04 2020-06-07 [facility] Caleb Umana 1.2.840.1 [id number] Methodi 00:56:00 14:30:00 Encounter Kanchan Downey 53632.1.1 47 3 Jen Rosa 3.430.2.7 Hospita .3.130094 l .8 2020-05-31 2020-06-01 Outpatient nullFlavo MNA [id number] Memoria 17:30:00 05:59:59 r Neurology 12 l Ean Silva 2020-05-31 2020-06-01 Outpatient nullFlavo MNA [id number] Memoria 17:30:00 05:59:59 r Neurology 12 l Ean Silva 2020-05-31 2020-05-31 Outpatient ASIF Chung [facility] [id number] 11:30:00 23:59:59 David 12 [place] 2020-05-31 2020-05-31 Ambulatory nullFlavo MNA [id number] Memoria 21:30:00 21:30:00 Pre-Reg r Neurology 11 l Ean Silva 2020-05-31 2020-05-31 Ambulatory nullFlavo MNA [id number] Memoria 21:30:00 21:30:00 Pre-Reg r Neurology 11 l Ean Silva 2020-05-31 2020-05-31 Outpatient MHIE MHIE [id number] Memoria 15:30:00 15:30:00 11 matt Silva 2020-05-31 2020-05-31 Outpatient ASIF Chung [facility] [id number] 15:30:00 15:30:00 David 11 Mar[place] 2020-05-31 2020-05-31 Outpatient MHIE MHIE [id number] Memoria 11:30:00 11:30:00 12 matt [place] [facility] [place] 2020-04-19 2020-04-20 Outpatient nullFlavo MNA [id number] Memoria 20:00:00 05:59:59 r Neurology 10 l [place] 2020-04-19 2020-04-20 Outpatient nullFlavo MNA [id number] Memoria 20:00:00 05:59:59 r Neurology 10 l [place] [facility] 2020-04-19 2020-04-19 Outpatient ASIF ChungMISCHER [id number] 14:00:00 23:59:59 David 10 [place] 2020-04-19 2020-04-19 Outpatient MHIE MHIE [id number] Memoria 14:00:00 14:00:00 10 l Ricardo 2020-04-18 2020-04-18 Outpatient STLMLC STLMLC [id number] Common 00:00:00 00:00:00 [facility] 2020-04-11 2020-04-12 Outpatient nullFlavo MNA [id number] Memoria 16:00:00 05:59:59 r Neurology 09 l [place] [facility] 2020-04-11 2020-04-12 Outpatient nullFlavo MNA [id number] Memoria 16:00:00 05:59:59 r Neurology 09 l [place] [facility] 2020-04-11 2020-04-11 Outpatient FAYE ChungTXSCHER MHMISCHER [id number] 10:00:00 23:59:59 David 09 [facility] 2020-04-11 2020-04-11 Outpatient MHIE MHIE [id number] Memoria 10:00:00 10:00:00 09 l [facility] [place] 2020-03-29 2020-03-30 Outpatient nullFlavo MNA [id number] Memoria 20:00:00 05:59:59 r Neurology 08 l [place] [facility] [place] 2020-03-29 2020-03-30 Outpatient nullFlavo MNA [id number] Memoria 20:00:00 05:59:59 r Neurology 08 l [place] [facility] [place] 2020-03-29 2020-03-29 [facility] [id number] 14:00:00 23:59:59 David 08 [facility] 2020-03-29 2020-03-29 Outpatient MHIE MHIE [id number] Memoria 14:00:00 14:00:00 08 l [facility] [place] 2020-03-22 2020-03-22 Outpatient STLMLC STLMLC [id number] Common 00:00:00 00:00:00 [facility] 2020-03-16 2020-03-16 Outpatient STLMLC STLMLC [id number] Common 00:00:00 00:00:00 [facility] 2020-03-08 2020-03-08 Office Isidro Ruby 1.2.840.1 [id number] Methodi 12:36:03 16:19:47 Visit Jae 92587.1.[address] 3.430.2.7 Hospit a .3.944013 l .8 2020-03-08 2020-03-08 Travel 1.2.840.1 1.2.409.499 [id number] Methodi 00:00:00 00:00:[address] 3.430.2.7 0.2.7.3.698 Ho spita .3.991040 084.8 l .8 2020-03-07 2020-03-07 Outpatient STLMLC STLMLC [id number] Common 00:00:00 00:00:00 [facility] 2020-02-29 2020-03-01 Outpatient nullFlavo MNA [id number] Memoria 17:15:00 05:59:59 r Neurology 07 l Ean Silva 2020-02-29 2020-03-01 Outpatient nullFlavo MNA [id number] Memoria 17:15:00 05:59:59 r Neurology 07 l Ean Sivla 2020-02-29 2020-02-29 Outpatient ASIF Chung MISCHER [id number] 11:15:00 23:59:59 David Acharya 2020-02-29 2020-02-29 Outpatient MHIE IE [id number] [facility] 11:15:00 11:15:00 07 l Ricardo 2020-02-21 2020-02-21 Outpatient STLMLC STLMLC [id number] Common 00:00:00 00:00:00 [facility] 2020-02-17 2020-02-17 Outpatient STLMLC STLMLC [id number] Common 00:00:00 00:00:00 [facility] 2020-02-12 2020-02-16 [facility] Jasmeet Benedict 1.2.840.1 [id number] Methodi 07:45:00 12:40:00 Encounter Yesi Maldonado 97105.1.[address] 3.430.2.7 Hospit a .3.145622 l .8 2020-02-15 2020-02-15 Ambulatory nullFlavo MNA [id number] Memoria 14:15:00 14:15:00 Pre-Reg r Neurology 06 l Ean Silva 2020-02-15 2020-02-15 Ambulatory nullFlavo MNA [id number] Memoria 14:15:00 14:15:00 Pre-Reg r Neurology 06 l Ean Silva 2020-02-15 2020-02-15 Outpatient MHIE IE [id number] Memoria 09:15:00 09:15:00 06 l Ricardo 2020-02-15 2020-02-15 [facility] [id number] 09:15:00 09:15:00 David Natanael Acharya 2020-02-15 2020-02-15 Telephone Isidro Ruby 1.2.840.1 [id number] Methodi 00:00:00 00:00:[address] 3.430.2.7 Hospit a .3.228673 l .8 2020-02-13 2020-02-13 Orders Diogo Blandon 1.2.840.1 [id number] Methodi 00:00:00 00:00:[address] 3.430.2.7 Hospit a .3.096588 l .8 2020-02-11 2020-02-11 Telephone Isidro Ruby 1.2.840.1 [id number] Methodi 00:00:00 00:00:[address] 3.430.2.7 Hospit a .3.867849 l .8 2020-02-09 2020-02-09 Outpatient STLMLC STLMLC [id number] Common 00:00:00 00:00:00 [facility] 2020-02-03 2020-02-08 [facility] Kim Guevara 1.2.840.1 [id number] Methodi 14:30:00 18:40:00 Encounter Karen Pineda 12071.1.[address] [facility].430[facility].7 H[facility] .3.834130 l .8 2020-02-07 2020-02-07 Telephone Ricky, 1.2.840.1 [id number] Methodi 00:00:00 00:00:[address] 3.430.2.7 Hospit a .3.900114 l .8 2020-02-03 2020-02-03 Telephone Ricky, 1.2.840.1 [id number] Methodi 00:00:00 00:00:[address] 3.430.2.7 Hospit a .3.417033 l .8 2020-01-17 2020-01-17 Outpatient STLMLC STLMLC [id number] Common 00:00:00 00:00:00 [facility] 2019-12-14 2019-12-14 [facility] [id number] Common 10:48:00 10:48:00 [facility] [address] [facility] 2019-11-23 2019-11-23 [facility] [id number] Common 09:00:00 09:00:00 [facility] [address] [facility] 2019-11-23 2019-11-23 [facility] [id number] Common 08:05:00 08:05:00 t [facility] [address] [facility] 2019-10-15 2019-10-15 [facility] [id number] Common 08:44:00 08:44:00 [address] [facility] [address] [facility] 2019-09-07 2019-09-07 [facility] [id number] Common 11:56:00 11:56:00 t [facility] [address] [facility] 2019-08-13 2019-08-13 [facility] [id number] Common 10:20:00 10:20:00 [place] [facility] [address] [facility] 2019-08-12 2019-08-12 [facility] [id number] Common 09:49:00 09:49:00 [address] [facility] [address] [facility] 2019-06-15 2019-06-15 [facility] [id number] Common 15:24:00 15:24:00 [facility] [address] [facility] 2019-06-09 2019-06-09 [facility] [id number] Common 08:40:00 08:40:00 t [facility] [address] [facility] 2019-06-03 2019-06-03 [facility] [id number] Common 10:52:00 10:52:00 [address] [facility] [address] [facility] 2019-05-28 2019-05-28 [facility] [id number] Common 16:20:00 16:20:00 [facility] [address] [facility] 2019-05-21 2019-05-23 Outside nullFlavo MNA [id number] Memoria 20:44:00 05:59:59 Medical r Neurology 00 l Records Ean Silva 2019-05-21 2019-05-23 Outside nullFlavo MNA [id number] Memoria 20:44:00 05:59:59 Medical r Neurology 00 l Records Ean Silva 2019-05-21 2019-05-22 Outpatient MHMISCHER MHMISCHER [id number] 14:44:00 23:59:59 00 2019-04-28 2019-04-28 Ambulatory nullFlavo MNA [id number] Memoria 19:00:00 19:00:00 Pre-Reg r Neurology 05 l [place] 2019-04-28 2019-04-28 Ambulatory nullFlavo MNA [id number] Memoria 19:00:00 19:00:00 Pre-Reg r Neurology 05 l [place] Silva 2019-04-28 2019-04-28 Outpatient MHIE MHLAURENCE [id number] Memoria 13:00:00 13:00:00 05 l [facility] 2019-04-28 2019-04-28 Outpatient FAYE ChungTXSCHER MHMISCHER [id number] 13:00:00 13:00:00 David Rick Acharya 2019-01-01 2019-01-01 [facility] [id number] Common 15:32:00 15:32:00 [address] [facility] [address] [facility] 2018-12-31 2018-12-31 [facility] [id number] Common 09:55:00 09:55:00 [address] [facility] [address] [facility] 2018-12-30 2018-12-30 [facility] [id number] Common 13:25:00 13:25:00 [address] [facility] [address] [facility] 2018-12-30 2018-12-30 [facility] [id number] Common 08:00:00 08:00:00 [place] [address] [facility] 2018-12-29 2018-12-29 [facility] [id number] Common 09:42:00 09:42:00 [facility] [address] [facility] 2018-12-23 2018-12-24 Outpatient nullFlavo MNA [id number] Memoria 18:15:00 04:59:59 r Neurology 04 l [place] Ricardo 2018-12-23 2018-12-24 Outpatient nullFlavo MNA [id number] Memoria 18:15:00 04:59:59 r Neurology 04 l [place] Ricardo 2018-12-23 2018-12-23 Outpatient ASIF Chung [facility] [id number] 13:15:00 23:59:59 David Catrina Acharya 2018-12-23 2018-12-23 Outpatient MHIE IE [id number] Memoria 13:15:00 13:15:00 04 matt Silva 2018-12-04 2018-12-04 [facility] [id number] Common 16:20:00 16:20:00 [place] [address] [facility] 2018-11-30 2018-11-30 [facility] [id number] Common 10:08:00 10:08:00 [facility] 2018-11-27 2018-11-28 Outpatient nullFlavo MNA [id number] Memoria 15:45:00 04:59:59 r Neurology 03 matt Silva 2018-11-27 2018-11-28 Outpatient nullFlavo MNA [id number] Memoria 15:45:00 04:59:59 r Neurology 03 matt Lrann 2018-11-27 2018-11-27 Outpatient ASIF Chung [facility] [id number] 10:45:00 23:59:59 David Cecelia Acharya 2018-11-27 2018-11-27 [facility] [id number] Common 13:00:00 13:00:[address] [employer] [address] [facility] 2018-11-27 2018-11-27 Outpatient MHIE MHIE [id number] Memoria 10:45:00 10:45:00 03 matt Ricardo 2018-10-29 2018-10-29 [facility] [id number] Common 10:40:00 10:40:[address] [employer] [address] [facility] 2018-10-16 2018-10-17 Outpatient nullFlavo MNA [id number] Memoria 14:00:00 04:59:59 r Neurology 02 matt [place]ardo 2018-10-16 2018-10-17 Outpatient nullFlavo MNA [id number] Memoria 14:00:00 04:59:59 r Neurology 02 matt [place] Ricardo 2018-10-16 2018-10-16 Outpatient ASIF Chung [facility] [id number] 09:00:00 23:59:59 David Ara Marck 2018-10-16 2018-10-16 Outpatient MHIE MHIE [id number] Memoria 09:00:00 09:00:00 02 matt Ricardo 2018-10-02 2018-10-03 Outpatient nullFlavo MNA [id number] Memoria 20:00:00 04:59:59 r Neurology 01 matt [place] Ricardo 2018-10-02 2018-10-03 Outpatient nullFlavo MNA [id number] Memoria 20:00:00 04:59:59 r Neurology 01 [place] 2018-10-02 2018-10-02 Outpatient FAY[facility] [id number] 15:00:00 23:59:59 David 01 [place] 2018-10-02 2018-10-02 Outpatient MHIE MHIE [id number] Memoria 15:00:00 15:00:00 01 matt Silva 2018-10-01 2018-10-02 Outpatient nullFlavo MNA [id number] Memoria 13:15:00 04:59:59 r Neurology 00 l Ean Silva 2018-10-01 2018-10-02 Outpatient nullFlavo MNA [id number] Memoria 13:15:00 04:59:59 r Neurology 00 l Ean Silva 2018-10-01 2018-10-01 Outpatient Juliet, [facility] [id number] 08:15:00 23:59:59 David 00 [place] 2018-10-01 2018-10-01 Outpatient MHIE MHIE [id number] Memoria 08:15:00 08:15:00 00 matt Ricardo 2018-09-30 2018-09-30 [facility] [id number] Common 13:00:00 13:00:00 [place] [facility] [address] [facility] 2018-08-31 2018-08-31 Out[facility] [id number] Common 11:00:00 11:00:00 [place] [facility] [address] [facility] 2018-07-27 2018-07-27 [facility] [id number] Common 13:54:00 13:54:00 [place] [facility] [address] [facility] 2018-07-23 2018-07-23 [facility] [id number] Common 08:53:00 08:53:00 [place] [address] [facility] 2018-07-23 2018-07-23 [facility] [id number] Common 08:15:00 08:15:00 [place] [facility] [address] [facility] 2018-06-22 2018-06-22 [facility] [id number] Common 10:30:00 10:30:00 [place] [facility] [address] [facility] 2018-05-04 2018-05-04 [facility] [id number] Common 12:00:00 12:00:[address] [facility] 2018-04-02 2018-04-02 [facility] [id number] Common 09:00:00 09:00:[address] [facility] Results Test Description Test Time Test Comments Results Result Comments Source SARS-COV-2(COVID19),NAAT 2021-06-12 00:00:00 Test Item Value Reference Range Interpretation Comme nts SARS-CoV-2 INTERPRETATION (test code = 82893-4) NEGATIVE SEE NO TE SOURCE (test code = 82673-0) NOT SPECIFIED POCT MOLECULAR [id number] 17:13:56 Test Item Value Reference Range Interpretation Comments POCT Molecular FluA (test code = Negative Negative 21603-8) POCT Molecular FluB (test code = Negative Negative 92673-1) Lab Interpretation (test code = Normal 90185-3) [facility] MOLECULAR [id number] 17:04:30 Test Item Value Reference Range Interpretation Comments POCT Molecular Strep (test code = Negative Negative 54246-2) Lab Interpretation (test code = Normal 46167-9) [facility] Interpretation Antibody Screen Negative 2021-03-31 02:35:52 Test Item Value Reference Range Interpretation Comments TMP Auto Neg At the present ABSC Interp time, patient (test code = plasma shows no JUDE MILLER 7535) evidence of RBC Daiana FREDERICK tated by: alloantibodies. VALERIE FREDERICK,Dictat ed Date/Time: 03.21 20:35 PM [employer]X DESIGN LEAD Transcribed Henrik e/Time: 03.30.2021 20:3 5 PM CSTElectronical ly Signed By: JUDE FREDERICK, on 03.30.2021 20:[address] [facility] Interpretation Antibody Screen [id number] 02:35:52 Test Item Value Reference Range Interpretation Comments TMP Auto Neg At the present ABSC Interp time, patient (test code = plasma shows no FERN ANDO 7535) evidence of RBC TOONIEL,Dic tated by: alloantibodies. VALERIE FREDERICK,Dictat ed Date/Time: 03.21 20:35 PM [employer] DES[employer]AD Transcribed Henrik e/Time: 03.30.2021 20:3 5 PM CSTElectronical ly Signed By: JUDE FREDERICK, on 03.30.2021 20:3 [facility] [id number] 02:35:52 Test Item Value Reference Range Interpretation Comments TMP Auto Neg At the present ABSC Interp time, patient (test code = plasma shows no FERN ANDO 7535) evidence of RBC OTONIEL,Dic tated by: adelineantibodies. VALERIE FREDERICKDictat ed Date/Time: 03.21 20:35 PM [employer] DESIGN LEAD Transcribed Henrik e/Time: 03.30.2021 20:3 5 PM CSTElectronical ly Signed By: JUDE FREDERICK, on 03.30.2021 20:3 5 PM [facility] [id number] 21:46:12 Test Item Value Reference Range Interpretation Comments ABSC. (test code = 890-4) Negative ABSC [facility] [id number] 21:46:12 Test Item Value Reference Range Interpretation Comments ABSC. (test code = 890-4) Negative ABSC [facility] [id number] 21:46:12 Test Item Value Reference Range Interpretation Comments ABSC. (test code = 890-4) Negative ABSC [facility]21-[facility]-10 21:46:11 Test Item Value Reference Range Interpretation Comments ABORh. (test code = 882-1) A POS [facility]2021-12-10 21:46:11 Test Item Value Reference Range Interpretation Comments ABORh. (test code = 882-1) A POS [facility]2021-12-10 21:46:11 Test Item Value Reference Range Interpretation Comments ABORh. (test code = 882-1) A POS [facility] Expiration [id number] 21:45:59 Test Item Value Reference Range Interpretation Comments T & S Expiration (test code = 04/02/2021 5318) [facility] [id number] 21:45:59 Test Item Value Reference Range Interpretation Comments T & S Expiration (test code = 04/02/2021 53) [facility] [id number] 21:45:59 Test Item Value Reference Range Interpretation Comments T & S Expiration (test code = 04/02/2021 5318) [facility] t(15;17) PML-LEN Quantitative PCR Collection, [id number] 19:40:53 Test Item Value Reference Range Interpretation Comments Molecular Diagnostics (Received) (test Yes code = 8400) [facility](15;17) PML-LEN Quantitative PCR Collection, [id number] 19:40:53 Test Item Value Reference Range Interpretation Comments Molecular Diagnostics (Received) (test Yes code = 8400) [facility](15;17) PML-LEN Quantitative PCR Collection, [id number] 19:40:53 Test Item Value Reference Range Interpretation Comments Molecular Diagnostics (Received) (test Yes code = 8400) [facility] CenterFractionated [id number] 18:26:21 Test Item Value Reference Range Interpretation [...] above 28 g/L. [Automated message] The system [employer] generated this result transmitted ref erence range: [...] par ameters are outside rep ortable range [facility] CenterFractionated [id number] 18:26:21 Test Item Value Reference Range Interpretation [...] above 28 g/L. [Automated message] The system [employer] generated this result transmitted ref erence range: [...] par ameters are outside rep ortable range [facility] CenterFraction[facility] [id number] 18:26:21 Test Item Value Reference Range Interpretation [...] above 28 g/L. [Automated message] The system [employer] generated this result transmitted ref erence range: [...] par ameters are outside rep ortable range [facility] CenterGl[facility], [id number] 18:26:19 Test Item Value Reference Range Interpretation Comments Glucose Random (test 62 mg/dL 70-199 L Effecti ve 11/15/15, code = 9360) the glucose reference intervals have been updated ba sed on [place] Diabetes [employer] guidelines (Standards of Medical Care [...] Track Lab Interpretation Abnormal (test code = 38988-3) [facility], [id number] 18:26:19 Test Item Value Reference Range Interpretation Comments Glucose Random (test 62 mg/dL 70-199 L Effecti ve 11/15/15, code = 9360) the glucose reference intervals have been updated ba sed on [place] Diabetes [employer] guidelines (Standards of Medical Care [...] Track Lab Interpretation Abnormal (test code = 06514-2) [facility], [id number] 18:26:19 Test Item Value Reference Range Interpretation Comments Glucose Random (test 62 mg/dL 70-199 L Effecti ve 11/15/15, code = 9360) the glucose reference intervals have been updated ba sed on [place] Diabetes [employer] guidelines (Standards of Medical Care [...] Track Lab Interpretation Abnormal (test code = 89194-4) [facility] CenterPhosphorus [id number] 18:26:17 Test Item Value Reference Range Interpretation Comments Phosphorus (test code = 3.8 mg/dL 2.5-4.5 6817) HAL (test code = HAL) Schedule in Fast Track [facility] CenterPhosphorus Qvagl4516-72-02 18:26:17 Test Item Value Reference Range Interpretation Comments Phosphorus (test code = 3.8 mg/dL 2.5-4.5 6817) HAL (test code = HAL) Schedule in Fast Track [facility] Opboh3121-51-14 18:26:17 Test Item Value Reference Range Interpretation Comments Phosphorus (test code = 3.8 mg/dL 2.5-4.5 6817) HAL (test code = HAL) Schedule in Fast Track [facility] [place] 2021-03-30 18:26:16 Test Item Value [...] code Schedule in Fast = HAL) Track [facility] 2021-03-30 18:26:16 Test [...] reased GFR 30-444 Silvia rely decreased GFR 15-295 Kidney failure <15 [Automated mess age] The system which ge nerated this result tra nsmitted reference range : >=60 mL/min/1.73 sq. m. The reference range was not used to interpr et this result as normal/abnormal . HAL (test code Schedule in Fast = HAL) Track [facility] 2021-03-30 18:26:16 Test [...] code Schedule in Fast = HAL) Track [facility] CenterLDH2021-12-10 18:26:15 Test Item Value Reference Range Interpretation Comments LDH (test code 162 U/L 135-214 Results great er than = 6111) 1651 U/L may no t be reliable due to matrix effect with ext ended dilution as it exceeds the manufacture r s recommended l imit. Caution should be exercised when interpreting grant ch values and done in conjunction [facility] clinical contex t. HAL (test code Schedule in Fast = HAL) Track [facility]LD[facility]21-[facility] 18:26:15 Test Item Value Reference Range Interpretation Comments LDH (test code 162 U/L 135-214 Results great er than = 6111) 1651 U/L may no t be reliable due to matrix effect with ext ended dilution as it exceeds the manufacture r s recommended l imit. Caution should be exercised when interpreting grant ch values and done in conjunction [facility] clinical contex t. HAL (test code Schedule in Fast = HAL) Track [facility]LD[facility] 18:26:15 Test Item Value Reference [...] code Schedule in Fast = HAL) Track [facility] CenterUric Mxiy8103-64-39 18:26:14 Test Item Value Reference Range Interpretation Comments Uric Acid (test code = 3.4 mg/dL 2.4-5.7 7955) HAL (test code = HAL) Schedule in Fast Track [facility] CenterU[facility] Sgvj8178-00-54 18:26:14 Test Item Value Reference Range Interpretation Comments Uric Acid (test code = 3.4 mg/dL 2.4-5.7 7955) HAL (test code = HAL) Schedule in Fast Track [facility] CenterU[facility] Lyce0581-69-98 18:26:14 Test Item Value Reference Range Interpretation Comments Uric Acid (test code = 3.4 mg/dL 2.4-5.7 7955) HAL (test code = HAL) Schedule in Fast Track [facility] CenterCalcium Fzehk5214-46-01 18:26:13 Test Item Value Reference Range Interpretation Comments Calcium Lvl (test code 8.8 mg/dL 8.4-10.2 = 5258) HAL (test code = HAL) Schedule in Fast Track [facility] CenterCal[facility] Sjila3356-65-54 18:26:13 Test Item Value Reference Range Interpretation Comments Calcium Lvl (test code 8.8 mg/dL 8.4-10.2 = 5258) HAL (test code = HAL) Schedule in Fast Track [facility] CenterCal[facility] Eajei1743-79-70 18:26:13 Test Item Value Reference Range Interpretation Comments Calcium Lvl (test code 8.8 mg/dL 8.4-10.2 = 5258) HAL (test code = HAL) Schedule in Fast Track [facility] CenterTotal Vrktuzv4477-85-25 18:26:12 Test Item Value Reference Range Interpretation Comments Total Protein (test 6.8 g/dL 6.4-8.3 code = 7649) HAL (test code = HAL) Schedule in Fast Track [facility] CenterTotal Drranhj4291-27-86 18:26:12 Test Item Value Reference Range Interpretation Comments Total Protein (test 6.8 g/dL 6.4-8.3 code = 7649) HAL (test code = HAL) Schedule in Fast Track [facility] CenterTotal Dyfsevx8734-80-46 18:26:12 Test Item Value Reference Range Interpretation Comments Total Protein (test 6.8 g/dL 6.4-8.3 code = 7649) HAL (test code = HAL) Schedule in Fast Track [facility] CenterAlbumin Ivnvt5926-73-60 18:26:11 Test Item Value Reference Range Interpretation Comments Albumin Lvl (test 4.5 See_Comment [Automate d message] code = 4763) The system [employer] generated this result transmit leon reference range : 3.5 - 5.2 gm/dL. Th e reference range was not used to interpret this result as normal/abnormal . HAL (test code = Schedule in Fast HAL) Track [facility] CenterAlbumin Mglbd3420-01-80 18:26:11 Test Item Value Reference Range Interpretation Comments Albumin Lvl (test 4.5 See_Comment [Automate d message] code = 4763) The system [employer] generated this result transmit leon reference range : 3.5 - 5.2 gm/dL. Th e reference range was not used to interpret this result as normal/abnormal . HAL (test code = Schedule in Fast HAL) Track [facility] CenterAlbumin Wqauq8470-74-00 18:26:11 Test Item Value Reference Range Interpretation Comments Albumin Lvl (test 4.5 See_Comment [Automate d message] code = 4763) The system [employer] generated this result transmit leon reference range : 3.5 - 5.2 gm/dL. Th e reference range was not used to interpret this result as normal/abnormal . HAL (test code = Schedule in Fast HAL) Track [facility] CenterMagnesium Suekb4971-71-35 18:26:10 Test Item Value Reference Range Interpretation Comments Magnesium (test code = 2.2 mg/dL 1.6-2.6 6359) HAL (test code = HAL) Schedule in Fast Track [facility] CenterMagnesium Dmvfu5289-83-04 18:26:10 Test Item Value Reference Range Interpretation Comments Magnesium (test code = 2.2 mg/dL 1.6-2.6 6359) HAL (test code = HAL) Schedule in Fast Track [facility] CenterMagnesium Cjqmb1289-99-54 18:26:10 Test Item Value Reference Range Interpretation Comments Magnesium (test code = 2.2 mg/dL 1.6-2.6 6359) HAL (test code = HAL) Schedule in Fast Track [facility] CenterElectrolyte Mlykr3417-62-51 18:26:09 Test Item Value Reference Range Interpretation [...] code = Schedule in Fast HAL) Track [facility] CenterElectrolyte Oapza9217-07-20 18:26:09 Test Item Value Reference Range Interpretation [...] code = Schedule in Fast HAL) Track [facility] CenterElectrolyte Ehlgr7980-23-68 18:26:09 Test Item Value Reference Range Interpretation [...] code = Schedule in Fast HAL) Track [facility] CenterAlkaline Nisvojqnvqa1730-03-07 18:26:08 Test Item Value Reference Range Interpretation Comments Alk Phos (test code = 69 U/L 35-104 4768) HAL (test code = HAL) Schedule in Fast Track [facility] CenterAlkaline Levkbnntqso8078-82-52 18:26:08 Test Item Value Reference Range Interpretation Comments Alk Phos (test code = 69 U/L 35-104 4768) HAL (test code = HAL) Schedule in Fast Track [facility] CenterAlkaline Udtapyagqwo8613-50-31 18:26:08 Test Item Value Reference Range Interpretation Comments Alk Phos (test code = 69 U/L 35-104 4768) HAL (test code = HAL) Schedule in Fast Track [facility] CenterAlanine Fbrlvtttsoyofjpy3165-56-31 18:26:07 Test Item Value Reference Range Interpretation Comments ALT (test code 17 U/L See_Comment [Automated m essage] = 4705) The system [employer] generated this result transmitted ref erence range: <=33. Th e reference range was not used to int erpret this result as normal/abnormal . HAL (test code Schedule in Fast = HAL) Track [facility] CenterAlanine Xeduwwigsfhlimaq7517-70-95 18:26:07 Test Item Value Reference Range Interpretation Comments ALT (test code 17 U/L See_Comment [Automated m essage] = 4705) The system [employer] generated this result transmitted ref erence range: <=33. Th e reference range was not used to int erpret this result as normal/abnormal . HAL (test code Schedule in Fast = HAL) Track [facility] CenterAlanine Wdhpgcfvyapsboon7010-92-55 18:26:07 Test Item Value Reference Range Interpretation Comments ALT (test code 17 U/L See_Comment [Automated m essage] = 4705) The system [employer] generated this result transmitted ref erence range: <=33. Th e reference range was not used to int erpret this result as normal/abnormal . HAL (test code Schedule in Fast = HAL) Track [facility].Serum Njbfmpsdlb5770-17-14 18:26:06 Test Item Value Reference Range Interpretation Comments Creatinine (test code = 0.95 mg/dL 0.51-0.95 5399) HLA (test code = HAL) Schedule in Fast Track [facility].Serum Xcmulzobih3015-77-67 18:26:06 Test Item Value Reference Range Interpretation Comments Creatinine (test code = 0.95 mg/dL 0.51-0.95 5399) HAL (test code = HAL) Schedule in Fast Track [facility].Serum Nirkohwrgz7791-10-31 18:26:06 Test Item Value Reference Range Interpretation Comments Creatinine (test code = 0.95 mg/dL 0.51-0.95 5399) HAL (test code = HAL) Schedule in Fast Track [facility] CenterBUN2021-12-10 18:26:04 Test Item Value Reference Range Interpretation Comments BUN (test code = 5055) 12 mg/dL 6- [facility] CenterBUN2021-12-10 18:26:04 Test Item Value Reference Range Interpretation Comments BUN (test code = 5055) 12 mg/dL 6- [facility] CenterBUN2021-12-10 18:26:04 Test Item Value Reference Range Interpretation Comments BUN (test code = 5055) 12 mg/dL 6- [facility] CenterDifferential2021-12-10 17:28:47 Test Item Value Reference Range Interpretation Comments Neutrophil % (test 75.3 % 42.0-66.0 H code = 79153-8) Lymphocyte % (test 16.8 % 24.0-44.0 L code = 737-7) Monocyte % (test code 6.3 % 2.0-7.0 = 744-3) Eosinophil % (test 0.8 % 1.0-4.0 L code = 713-8) Basophil % (test code 0.5 % 0.0-1.0 = 707-0) IGRE % (test code = 0.3 % 0.0-0.4 IGRE % c ount 54391-1) includes Metamyelocytes, Myelocytes, and Promyelocytes. Neutrophil Abs (test 7.10 K/uL 1.70-7.30 code = 753-4) Lymphocyte Abs (test 1.59 K/uL 1.00-4.80 code = 732-8) Monocyte Abs (test 0.59 K/uL 0.08-0.70 code = 743-5) Eosinophil Abs (test 0.08 K/uL 0.04-0.40 code = 712-0) Basophil Abs (test 0.05 K/uL 0.00-0.10 code = 705-4) IG Abs (test code = 0.03 K/uL 0.00-0.04 64650-2) HAL (test code = HAL) Schedule in Fast Track Lab Interpretation Abnormal (test code = 43271-4) [facility] CenterDifferential2021-12-10 17:28:47 Test Item Value Reference Range Interpretation Comments Neutrophil % (test 75.3 % 42.0-66.0 H code = 28173-4) Lymphocyte % (test 16.8 % 24.0-44.0 L code = 737-7) Monocyte % (test code 6.3 % 2.0-7.0 = 744-3) Eosinophil % (test 0.8 % 1.0-4.0 L code = 713-8) Basophil % (test code 0.5 % 0.0-1.0 = 707-0) IGRE % (test code = 0.3 % 0.0-0.4 IGRE % c ount 98732-5) includes Metamyelocytes, Myelocytes, and Promyelocytes. Neutrophil Abs (test 7.10 K/uL 1.70-7.30 code = 753-4) Lymphocyte Abs (test 1.59 K/uL 1.00-4.80 code = 732-8) Monocyte Abs (test 0.59 K/uL 0.08-0.70 code = 743-5) Eosinophil Abs (test 0.08 K/uL 0.04-0.40 code = 712-0) Basophil Abs (test 0.05 K/uL 0.00-0.10 code = 705-4) IG Abs (test code = 0.03 K/uL 0.00-0.04 57371-5) HAL (test code = HAL) Schedule in Fast Track Lab Interpretation Abnormal (test code = 66605-8) [facility] CenterDifferential2021-[facility]-10 17:28:47 Test Item Value Reference Range Interpretation Comments Neutrophil % (test 75.3 % 42.0-66.0 H code = 05295-2) Lymphocyte % (test 16.8 % 24.0-44.0 L code = 737-7) Monocyte % (test code 6.3 % 2.0-7.0 = 744-3) Eosinophil % (test 0.8 % 1.0-4.0 L code = 713-8) Basophil % (test code 0.5 % 0.0-1.0 = 707-0) IGRE % (test code = 0.3 % 0.0-0.4 IGRE % c ount 59432-9) includes Metamyelocytes, Myelocytes, and Promyelocytes. Neutrophil Abs (test 7.10 K/uL 1.70-7.30 code = 753-4) Lymphocyte Abs (test 1.59 K/uL 1.00-4.80 code = 732-8) Monocyte Abs (test 0.59 K/uL 0.08-0.70 code = 743-5) Eosinophil Abs (test 0.08 K/uL 0.04-0.40 code = 712-0) Basophil Abs (test 0.05 K/uL 0.00-0.10 code = 705-4) IG Abs (test code = 0.03 K/uL 0.00-0.04 93058-5) HAL (test code = HAL) Schedule in Fast Track Lab Interpretation Abnormal (test code = 03401-5) [facility] [place].SAK2272-49-30 17:28:40 Test Item Value Reference Range Interpretation Comments WBC (test code = 9.4 K/uL 4.0-11.0 6690-2) RBC (test code = 4.53 See_Comment [Automated 987-4) message] The sy stem which generated this result transmitted reference range : 4.00 - 5.50 M/u L. The reference r gee was not used to interpret this result as normal/abnormal . Hgb (test code = 13.0 See_Comment [Automated 573-6) message] The sy stem which generated this [...] RDW-SD (test code = 40.1 fL 35.1-46.3 21629-2) RDW-CV (test code = 12.3 % 12.0-15.5 [...] Track Lab Interpretation Abnormal (test code = 69427-5) [facility] [place].HXU5273-12-10 17:28:40 Test Item Value Reference Range Interpretation Comments WBC (test code = 9.4 K/uL 4.0-11.0 6690-2) RBC (test code = 4.53 See_Comment [Automated 570-8) message] The sy stem which generated this result transmitted reference range : 4.00 - 5.50 M/u L. The reference r gee was not used to interpret this result as normal/abnormal . Hgb (test code = 13.0 See_Comment [Automated 271-7) message] The sy stem which generated this [...] RDW-SD (test code = 40.1 fL 35.1-46.3 64533-9) RDW-CV (test code = 12.3 % 12.0-15.5 [...] Track Lab Interpretation Abnormal (test code = 55481-6) [facility] [place].CKT7065-71-59 17:28:40 Test Item Value Reference Range Interpretation Comments WBC (test code = 9.4 K/uL 4.0-11.0 6690-2) RBC (test code = 4.53 See_Comment [Automated 257-8) message] The sy stem which generated this result transmitted reference range : 4.00 - 5.50 M/u L. The reference r gee was not used to interpret this result as normal/abnormal . Hgb (test code = 13.0 See_Comment [Automated 339-7) message] The sy stem which generated this [...] RDW-SD (test code = 40.1 fL 35.1-46.3 26939-1) RDW-CV (test code = 12.3 % 12.0-15.5 [...] Track Lab Interpretation Abnormal (test code = 34284-2) [facility] ([facility]LECULAR) 2021-03-16 16:11:00 Test Item Value Reference Range Interpretation Comments POCT GP A STREP (test negative Negative - code = 83058-0) Negative HAL (test code = HAL) accurate development and interpretation of all internal controls Lab Interpretation Normal (test code = 36198-2) [facility] A[facility]OMEN PELVIS W HEASLEDA1552-38-47 02:55:38 No acute abdominopelvic process. Preliminary Report [...] reviewed this study and agree with theabove report.[facility] HospitalXR CHEST 1 EI5256-92-58 02:48:05 No radiographic evidence of acute cardiopulmonary [...] acute cardiopulmonary process.Preliminary Report Dictated by Resident: Nati Snow MD., have reviewed this study and agreewith theabove report.[facility] HospitalTROPONIN L0361-13-13 02:05:12 Test Item Value Reference Interpretation Comments Range TROPONIN I (test 0.014 ng/mL See_Comment [Automated code = 7314083373) message] The system which generated this result [...] biotin. Lab Interpretation Normal (test code = 93237-5) [facility]. METABOLIC PANEL (58512)2020-12-05 01:53:53 Test Item Value Reference Range Interpretation Comments NA (test code = 139 mmol/L 135-145 7687776841) K (test code = 3.7 mmol/L 3.5-5.0 3501717526) CL (test code = 109 mmol/L 98-108 H 9451724760) CO2 TOTAL (test code = 22 mmol/L 23-31 L 4626136889) AGAP (test code = 2-16 4413982824) BUN (test code = 17 mg/dL 7-23 2994452301) GLUCOSE (test code = 99 mg/dL 70-110 9835564459) CREATININE (test code = 1.14 mg/dL 0.50-1.04 H 8591266832) TOTAL BILI (test code = 0.3 mg/dL 0.1-1.1 7688228751) CALCIUM (test code = 8.7 mg/dL 8.6-10.6 5153060370) T PROTEIN (test code = 7.4 g/dL 6.3-8.2 3120896954) ALBUMIN (test code = 4.7 g/dL 3.5-5.0 9197991318) ALK PHOS (test code = 62 U/L 34-122 5089990886) ALTv (test code = 16 U/L 5-35 1742-6) AST(SGOT) (test code = 18 U/L 13-40 5356188821) eGFR (test code = mL/min/1.73m2 7402273882) HAL (test code = HAL) Association of [...] tests). Lab Interpretation Abnormal (test code = 46434-8) [facility] HospitalLIPASE2021-08-17 01:53:12 Test Item Value Reference Range Interpretation Comments LIPASE (test code = 2263488823) 101 U/L 0-220 Lab Interpretation (test code = Normal 25944-9) [facility] HospitalURINALYSIS2021-08-17 01:52:17 Test Item Value Reference Range Interpretation Comments APPEARANCE (test code = Cloudy Clear A 6070212708) COLOR (test code = Yellow Yellow 7695115841) PH (test code = 4.8-8.0 0622943219) SP GRAVITY (test code = 1.003-1.030 0209682766) GLU U QUAL (test code = Normal Normal 4063251410) BLOOD (test code = Negative Negative 6067901980) KETONES (test code = Negative Negative 1808907262) PROTEIN (test code = Negative Negative 2887-8) UROBILIN (test code = 4.0 mg/dL Normal A 9080538008) BILIRUBIN (test code = Negative Negative 6158025634) NITRITE (test code = Negative Negative 4569083868) LEUK REKHA (test code = Negative Negative 0840953219) RBC/HPF (test code = See_Comment [Autom ated message] 2485147485) The system [employer] generated this result transmit leon reference range : 0 - 3 HPF. The refe rence range was not u sed to interpret th is result as normal/abnormal . WBC/HPF (test code = <1 See_Comment [Autom ated message] 9556620959) The system [employer] generated this result transmit leon reference range : 0 - 5 HPF. The refe rence range was not u sed to interpret th is result as normal/abnormal . BACTERIA (test code = Many Negative A 8609922180) MUCOUS (test code = Slight Negative LPF A 8664409235) AMORPHOUS (test code = Moderate Rare HPF A 2718062208) SQ EPITH (test code = HPF 4284576690) Lab Interpretation (test Abnormal code = 11362-6) [facility] WITH GIBS3120-06-70 01:42:11 Test Item Value Reference Range Interpretation Comments WBC (test code = See_Comment [Automated 5990-2) message] The sy stem which generated this result transmitted reference range : 4.30 - 11.10 10*3/?L. The reference range was not used to interpret this result as normal/abnormal . RBC (test code = See_Comment [Automated 579-8) message] The sy stem which generated this [...] RDW-SD (test code = 41.1 fL 39.0-49.9 54812-4) RDW-CV (test code = 13.5 % 12.0-15.5 788-0) PLT (test code = See_Comment [Automated 777-3) message] The sy stem which generated this result transmitted reference range : 166 - 358 10*3/ ?L. The reference r gee was not used to interpret this result as normal/abnormal . MPV (test code = 12.3 fL 9.5-12.9 55052-9) NRBC/100 WBC (test See_Comment [Automat ed code = 3806027894) message] The system which generated this result transmitted reference range : 0.0 - 10.0 /100 WBCs. The refer ence range was not u sed to interpret th is result as normal/abnormal . NRBC x10^3 (test code <0.01 See_Comment [Auto mated = 3189995608) message] The s ystem which generated this result transmitted reference range : 10*3/?L. The reference range was not used to interpret this result as normal/abnormal . GRAN MAT (NEUT) % 54.5 % (test code = 770-8) IMM GRAN % (test code 0.40 % = 7796897509) LYMPH % (test code = 33.6 % 736-9) MONO % (test code = 8.5 % 5905-5) EOS % (test code = 2.4 % 713-8) BASO % (test code = 0.6 % 706-2) GRAN MAT x10^3(ANC) 2.69 10*3/uL 1.88-7.09 (test code = 3736084008) IMM GRAN x10^3 (test <0.03 0.00-0.06 code = 4312074229) LYMPH x10^3 (test code 1.66 10*3/uL 1.32-3.29 = 731-0) MONO x10^3 (test code 0.42 10*3/uL 0.33-0.92 = 742-7) EOS x10^3 (test code = 0.12 10*3/uL 0.03-0.39 711-2) BASO x10^3 (test code 0.03 10*3/uL 0.01-0.07 = 704-7) Lab Interpretation Abnormal (test code = 59472-0) [facility] [id number] 01:31:00 Test Item Value Reference Range Interpretation Comments POCT PREG (test code = 1605) negative On board controls acceptable with present C Line (test code = 3574) POCT PREG LOT # (test code = 3575) [id number] POCT PREG TEST DATE (test 04/20/22 code = 3576) Lab Interpretation (test code = Normal 78066-2) [facility] GRP A STREP (MOLECULAR)2020-12-04 00:43:00 Test Item Value Reference Range Interpretation Comments POCT GP A STREP (test code = Negative Negative - Negative 99091-1) Lab Interpretation (test code = Normal 82242-1) [facility] GRP A STREP (MOLECULAR)2020-12-04 00:43:00 Test Item Value Reference Range Interpretation Comments POCT GP A STREP (test code = Negative Negative - Negative 82238-4) Lab Interpretation (test code = Normal 78359-9) [facility] Thoracic Spine W Rrzaldon3678-03-11 23:13:41EXAMINATION: MRI THORACIC SPINE W CONTRAST CLINICAL [...] significant spinal canal or neural foraminal stenosis.[id number] [facility] Thoracic Spine W Sfrtetvh7440-00-74 23:13:41EXAMINATION: MRI THORACIC SPINE W CONTRAST CLINICAL [...] significant spinal canal or neural foraminal stenosis.[id number] Cervical Spine W Dwgpwixf6374-04-22 23:08:17EXAMINATION: MRI CERVICAL SPINE W CONTRAST CLINICAL [...] spine abnormality identified. No enhancing lesion identified. [facility]-[id number] Interface, Radiology Results 06/06/2020 5:11 PM CST [...] cervical spine abnormality identified. No enhancing lesion identified.[facility]-[id number] Regional Medical Center Cervical Spine W Contrast [...] abnormality identified. No enhancing lesion identified. HMSL-2U [id number] Interface, Radiology Results Incoming - 06/06/2020 5:11 [...] cervical spine abnormality identified. No enhancing lesion identified.[facility]-[id number] Regional Medical Center Brain W Wo Fwbemtib1009-77-71 22:41:58EXAMINATION: MRI BRAIN W WO CONTRAST CLINICAL [...] of demyelinating lesion or other acute intracranial abnormality.[id number] Wo Bxlbtylo2648-47-25 22:41:58EXAMINATION: MRI BRAIN W WO CONTRAST CLINICAL [...] other acute intracranial abnormality.[id number] Wo Rrktkpnc3489-89-82 18:08:03 EXAMINATION: CT CHEST WO CONTRAST HISTORY: [...] this is compatible with mild Covid pneumonia. [facility]-[id number] Interface, Radiology Results 06/06/2020 12:11 PM CST [...] findings, this is compatible with mild Covid pneumonia.[facility]-[id number] HospitalCT Chest Wo Qtgpmkxz7940-49-56 18:08:03EXAMINATION: CT CHEST WO CONTRAST HISTORY: COVID-19 [...] this is compatible with mild Covid pneumonia. [facility]-[id number] Interface, Radiology Results 06/06/2020 12:11 PM CST [...] findings, this is compatible with mild Covid pneumonia.[facility]-[id number] HospitalUrine ccxfqdw3360-98-05 18:51:05 Test Item Value Reference Range Interpretation Comments Urine culture (test SEE COMMENT Bacteriu kieran screen code = 2858143) negative. [facility] gxatjpu6029-36-44 18:51:05 Test Item Value Reference Range Interpretation Comments Urine culture (test SEE COMMENT Bacteriu kieran screen code = 7272804) negative. [facility] wtpaacz6290-43-64 18:51:05 Test Item Value Reference Range Interpretation Comments Urine culture (test SEE COMMENT Bacteriu kieran screen code = 4559063) negative. [facility] NfcxvoqhEQNB-IvE-9 (COVID-19) RNA [Presence] in Respiratory specimen by SARI with probe yfvabphta6732-60-49 18:31:32 Test Item Value Reference Range Interpretation Comments SARS-CoV-2 (COVID-19) RNA [Presence] Detected Not-Detected in Respiratory specimen by SARI with probe detection (test code = 13086-6) [facility] Optic Nerve - [id number] 19:34:42LeIsidro poon MD - 05/24/2020 5:54 PM CST [facility] [id number] 19:34:42LeIsidro poon MD - 05/24/2020 5:54 PM CST [facility], Extended - [id number] 19:34:39LeeIsidro MD - 05/24/2020 5:54 PM CST [facility], Extended - [id number] 19:34:39LeeIsidro MD - 05/24/2020 5:54 PM CST [facility]3 in 1 Wavqowt3106-48-62 16:07:52 Test Item Value Reference Range Interpretation Comments SUPPLIER NAME (test XMED Oxygen and code = 6415) Medical SUPPLIER PHONE (test [phone] code = 6416) ORDER STATUS (test code Delivery Successful = 6417) DELIVERY NOTE (test code = 6419) REQUESTED DELIVEY DATE 02/16/2020 (test code = 6420) ITEM DESCRIPTION (test 3 in 1 Commode Qty : 1 code = 6423) ACTUAL DELIVERY DATE 02/16/2020 (test code = 6422) [facility]3 in 1 Xzeptvd4583-40-32 16:07:52 Test Item Value Reference Range Interpretation Comments SUPPLIER NAME (test XMED Oxygen and code = 6415) Medical SUPPLIER PHONE (test [phone] code = 6416) ORDER STATUS (test code Delivery Successful = 6417) DELIVERY NOTE (test code = 6419) REQUESTED DELIVEY DATE 02/16/2020 (test code = 6420) ITEM DESCRIPTION (test 3 in 1 Commode Qty : 1 code = 6423) ACTUAL DELIVERY DATE 02/16/2020 (test code = 6422) [facility] [place] General Sdhuovf0022-69-23 18:23:11Electromyogram and NCS [facility]DOROTHE[facility] Neurological Hpvmezlgy0460Exth,WP11,[place]P: F : Patient: Snow Argueta Physician: Nicolasa Walters MDAge: 34 Test Date: 02/15/20ex: FemaleHeight: 66 inchesWeight: 220 lbsRef. M.D.: Fior Batista, CHIQUIob: [birth year] History/Comments:The patient is a 34 YO [...] Site: Wrist Pk Lat (ms) Amp (uV)Stim Niox1fm dig 2.5 21.0 Sensory Nerve Study Right Radial NerveRec Site: Wrist Pk Lat (ms) Amp (uV)Stim SiteIndex 2.1 24.0 Sensory Nerve Study Left Sural NerveRec Site: Ankle Pk Lat (ms) Amp (uV)Stim Sitemid calf 5.0 12.3 Sensory Nerve Study Right Sural NerveRecSite: Ankle Pk Lat (ms) Amp (uV)Stim Sitemid [...] EDB LatencyStim Site: Ankle ms F wave JAD-BZFA-Jtfp Study Left Tibial NerveRec Site: AH LatencyStim Site: Ankle ms F wave 50.17F-M NRF-Wave Study Right Tibial NerveRec Site: AH LatencyStim Site: Ankle ms F wave 55.67F-M NRH Reflex Study Left Tibial NerveRec Site: Soleus LatencyStim Site: Pop.Fos. ms M wave 6.83H wave 31.00 H Reflex Study RightTibial NerveRec Site: Soleus LatencyStim Site: Pop.Fos. ms M wave 7.33H wave 33.83 EMG StudySignificantly limited due to patient's poor-none efforts in muscle activation. Name Ins Act Fibs PSW Fascics Polyph MU Amp MU Dur Config Pattern RecruitR. Tibialis Ant. norm none none none Notes: POOR EFFORTSR.Gastroc.Med.H. norm none none None Notes: NO EFFORTSR. [...] Left Sural Nerve Right Sural Nerve Right S uperperon Nerve Right Median Nerve Right Ulnar Nerve Left Peroneal Nerve Right Peroneal Nerve Left Tibial Nerve Right Tibial Nerve Left Tibial Nerve Right Tibial NerveEMG General [id number] 18:23:11Electromyogram and NCS ReportDOROTHEA DIX [facility] Neurological K[address]jcmocu5949Qrvg,[address],[place], [place]T: F : Patient: Snow Argueta Physician: Anna Marie Smith: 34 Test Date: 02/15/20ex: FemaleHeight: 66 inchesWeight: [...] Site: Wrist Pk Lat (ms) Amp (uV)Stim Gcqy6ho dig 2.5 21.0 Sensory Nerve Study Right [...] Right Ulnar NerveRec Site: ADM LatencyStim Site: Wr ist ms F wave 27.33F-M NRF-Wave Study Left Peroneal NerveRec Site: EDB LatencyStim Site: Ankle ms F wave 49.50F-M NRF-Wave Study Right Peroneal NerveRec Site: EDB LatencyStim Site: Ankle ms F wave NRF-M NRF-Wave Study Left Tibial NerveRec Site: AH LatencyStim Site: Ankle ms F wave 50.17F-M NRF-Wave Heath dy Right Tibial NerveRec Site: AH LatencyStim Site: [...] norm normR. Biceps Brachi. norm none none n one none norm norm norm norm normR. Triceps [...] Nerve Left Sural Nerve Right Sural Nerve RightSuperperon Nerve Right Median Nerve Right Ulnar Nerve Left Peroneal Nerve Right Peroneal Nerve Left T ibial Nerve Right Tibial Nerve Left Tibial Nerve Right Tibial NerveVisual evoked [id number] 15:07:24 PATTERN REVERSAL VISUAL EVOKED POTENTIAL REPORT Patient Name: Snow Argueta Date of : 1985 Gender: female Date of Procedure: 02/14/2020 IndicationVision loss FindingsPattern reversal visual luis m ked potentials were obtained following independent left and right full field monocular stimulation. RqfD559 absolute latencies were 99.8 msec and 102.6 msec following independent left and right eye stimulation. All interpeak latencies and waveform morphologies were normal. ImpressionThis is a normal study. ICD10 Code/Diagnosis: D85Yaobqn evoked xjybpuhrtm3412-99-18 15:07:24 PATTERN REVERSAL VISUAL EVOKED POTENTIAL REPORT Patient Name: Snow Argueta Date of : 1985 Gender: female Date of Procedure: 02/14/2020 IndicationVision loss FindingsPattern reversal visual evoked potentials were obtained following independent left and right full field monocular stimulation. GeyA929 absolute latencies were 99.8 msec and 102.6 msec following independent left and right eye stimulation. All interpeak latencies and waveform morphologies were normal. ImpressionThis is a normal study. ICD10 Code/Diagnosis: G35MRI Lumbar Spine W Wo Zvdwpjsy2462-62-32 16:16:59EXAMINATION: MRI LUMBAR SPINE W WO CONTRAST [...] the right. Recommend correlation to radiculopathy distribution. [facility]- [id number] Interface, Radiology Results Incoming - 02/13/2020 11:20 [...] on the right. Recommend correlation to radiculopathy distribution.[facility]-[id number] Regional Medical Center Lumbar Spine W Wo Pebfnlue0924-45-05 16:16:59EXAMINATION: MRI LUMBAR SPINE W WO CONTRAST [...] the right. Recommend correlation to radiculopathy distribution. [facility]- [id number] Interface, Radiology Results Incoming - 02/13/2020 11:20 [...] on the right. Recommend correlation to radiculopathy distribution.[facility]-[id number] Regional Medical Center Brain Venogram 2020-02-13 14:57:03EXAM: MRI BRAIN VENOGRAM CLINICAL HISTORY: Headache chronic normal neuro exam TECHNIQUE: Head MR venogram using 2D ifos-zv-goddur technique with multi-planar MIP and 3D reconstruction. [...] neuro examTECHNIQUE: Head MR venogram using 2D dfoq-ta-sbrpye technique with multi- planar MIP and 3D [...] no definite evidence of dural sinus venous thrombosis.[id number]_PS01[facility] Brain Venogram 2020-02-13 14:57:03EXAM: MRI BRAIN VENOGRAM CLINICAL HISTORY: Headache chronic normal neuro exam TECHNIQUE: Head MR venogram using 2D ezrl-xv-rbghqq technique with multi-planar MIP and 3D reconstruction. [...] neuro examTECHNIQUE: Head MR venogram using 2D giis-ug-zdfrmn technique with multi- planar MIP and 3D [...] definite evidence of dural sinus venous thrombosis.[id number]_PS01[facility] NEED PHYS SKILL,DX OR [id number] 15:39:11CFamilia hickey RN 02/08/2020 10:40 AMMidline Date/Time: [...] Flat Vessel Size (mm): 5 Indication: Known assisted IV therapy Location: Left basilic Device Type: Non-valved Catheter Lumen(s): Single lumen Catheter size: 3 Fr Catheter to vein ratio: 24%MidLine Characteristics: Catheter Brand: SL PROVENA MIDLINE Internal Catheter Length (cm): 12 Total Catheter Length (cm): 12 Catheter Lot Number: [id number] Catheter Expiration Date: 2Procedure details: Landmarks identified: [...] of procedure: Tolerated well, no immediate complications VENIPUNC NEED PHYS SKILL,DX OR [id number] 15:39:11CFamilia hickey RN 02/08/2020 10:40 AMMidline Date/Time: 02/08/2020 10:39 AMPerformed by: Familia oClon R NAuthorized by: Michael Maddox MD Consent: Consent obtained: Verbal Consent given by: PatientRisks discussed: Arterial puncture, incorrect placement, nerve damage, infection, bleeding, superficial thrombus and deep vein thrombus Alternatives discussed: Delayed treatment and alternative treatmen tUniversal protocol: Procedure explained and questions answered to [...] Vessel Size (mm): 5 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 Location: Left basilic Device Type: Non-valved Catheter Lumen(s): Single lumen Catheter size: 3 Fr Catheter to vein ratio: 24%MidLine Characteristics: Catheter Brand: THOMAS PROVENA MIDLINE Internal CatheterLength (cm): 12 Total Catheter Length (cm): 12 Catheter Lot Number: [id number] Catheter Expiration Date: 2Procedure details: Landmarks identified: yes Ultrasound guidance: yes Sterile ultrasound techniques: Sterile gel and sterile probe covers were used Number of attempts: 1 Number of MidLine kits used during procedure: 2 Extra guide wire required?: Yes Purpose of procedure: Midline Placement Pa tency/Placement: Flushes without difficulty, flushed with 10 mL normal saline, positive blood return, injection cap placed and ultrasound MidLine placed utilizing ultrasound-guided Modified Seldinger Technique: Yes Dressing/Securement: Antimicrobial dressing dry and intact, antimicrobial dressing applied and catheter securement device Blood Loss Amount: Less than 20 mLPost-procedure details: Post-procedure: Dressing applied Patient tolerance of procedure: Tolerated well, no immediate complicationsUs duplex venous upper msvrubtqb8357-32-78 03:03:00 Vascular Ultrasound Laboratory Upper Extremity Venous Report [address] [place] [address] Pat.Name: SNOW ARGUETA Pat.ID: [id number] .Date: 02/07/2020 Refer.MD: MICHAEL MADDOX MDExam Time: 4:33:00 PM Study Type:UE Venous Height: 66in Weight: 220lb BSA: 2.08 m2 Age: 7 1985,34Y Sex: FEMALE Sonogrphr: Ryan Torres RVT Pat. Stat.:Inpatient Room: [address] Tape Vol: HV, CPT - 4: 66014 Echo Event ID:[id number] Order ID: [id number] Reason for Study:Right arm pain and swelling. S/P midline removal on02/07/2020.Procedures: Colorflow, Grayscale/2D, Pulsed wave DopplerRace: D ------- SUMMARY: DUPLEX SCAN OBSERVATIONS Right LeftIJ Normal Subclavian Normal NormalAxillary Normal Brachial Normal Basilic Obstructed Cephalic(FA) Normal RIGHT: The upper arm basilic vein is non-compressible with mixedechogenic material withinthe lumen. Colorflow and Doppler signals areabsent. All other remaining veins are patetnt. LEFT: There is normal compressibility and no evidence of echogenicmaterial noted within the lumen of the subclavian vein. Colorflow andDoppler signals are normal. PRELIMINARY FINDINGS1. Obstructed superficial venous thrombosis of right upper arm basilicvein.2. No evidence of deep venous thrombosis of the visuali zed veins.Result given to EBONIE Husain at 17:30 PM on 02/07/2020.PHYSICIAN INTERPRETATION Venous examination of the right upper extremity and neck demonstratedno evidence of deep venous thrombosis.Obstructed superficial venous thrombosis of right upper arm basilicvein. FI NDINGS: Signed 02/07/2020 10:03 PMChaz Obrien MD, RPVIInterce, Radiology Results In - 02/07/2020 10:03 PM CDT Vascular Ultrasound Laboratory Upper Extremity Venous Report [address] [place] [address] Pat.Name: SNOW ARGUETA Pat.ID: [id number] .Date: 02/07/2020 Refer.MD: MICHAEL MADDOX MD Exam Time: 4:33:00 PM Study Type:UE Venous Height: 66in Weight: 220lb BSA: 2.08 m2 Age:7 1985,34Y Sex: FEMALE Sonogrphr: Ryan Torres RVT Pat. Stat.:Inpatient Room: [address] Tape Vol: ,[facility] - 4: 58331 Echo Event ID:[id number] Order ID: [id number] Reason for Study:Right arm pain and swelling. [...] Husain at 17:30 PM on 02/07/2020.PHYSICIAN INTERPRETATION Venousexamination of the right upper extremity and neck demonstratedno evidence of deep venous thrombosis.Obstructed superficial venous thrombosis of right upper arm basilicvein. ------FINDINGS: Signed 02/07/2020 10:03 PMChaz Obrien MD, RPVIFranciscan Health [place] duplex venous upper extremity 2020-02-08 03:03:00 Vascular Ultrasound Laboratory Upper Extremity Venous Report [id number]Name: SNOW ARGUETA Pat.ID: [id number] .Date: 02/07/2020 Refer.MD: MICHAEL MADDOX MD Exam Time: 4:33:00 PM Study Type:UE Venous Height: 66in Weight: 220lb BSA: 2.08 m2 Age: 7 1985,34Y Sex: FEMALE Sonogrphr: Davis Vi, RVT Pat. Stat.:Inpatient Room: [address] Vol: , CPT - 4: 23839 Echo Event ID:[id number] Order ID: [id number] Reason for Study:Right arm pain and swelling. [...] andDoppler signals are normal. PRELIMINARY FINDINGS1. Obstructed superficialvenous thrombosis of right upper arm basilicvein.2. No evidence of deep venous thrombosis of the visualized veins.Result given to EBONIE Husain at 17:30 PM on 02/07/2020.PHYSICIAN INTERPRETATION Venous examination of the right upper extremity and neck demonstratedno evidence of deep venous thrombosis.Obstructed superficial venous thrombosis of right upper arm basilicvein. -FINDINGS: Signed 02/07/2020 10:03 PMChaz Obrien MD, RPVIInterwayside emergency hospital, Radiology Results In - 02/07/2020 10:03 PM CDT Vascular Ultrasound Laboratory Upper Extremity Venous Report [id number] [address] Pat.Name: SNOW ARGUETA Namrata.ID: [id number] .Date: 02/07/2020 Refer.MD: MICHAEL MADDOX MD Exam Time: 4:33:00 PM Study Type:UE Venous Height: 66in Weight: 220lb BSA: 2.08 m2 Age: 7 1985,34Y Sex: FEMALE Sonogrphr: Ryan Torres RVT Pat. Stat.:Inpatient Room: NG06-0949-H Tape Vol: GELY , [facility] - 4: 31581 Echo Event ID:[id number] Order ID: [id number] Reason for Study:Right arm pain and swelling. [...] basilicvein.2. No evidence of deep venous thrombosis ofthe visualized veins.Result given to EBONIE Husain at 17:30 PM on 02/07/2020.PHYSICIAN INTERPRETATION Venous examination of the right upper extremity and neck demonstratedno evidence of deep venous thrombosis.Obstructed superficial venous thrombosis of right upper arm basilicvein. ---------FINDINGS: Signed 02/07/2020 10:03 Yessi Obrien MD, KAMRYNVIMu-Ism HospitalFlow cytometry lcpilowzmt8570-06-82 14:52:18 Test Item Value Reference Range Interpretation Comments Case number (test code = [id number]) Flow cytometry evaluation See link below for (test code = 2778767) PDF Lab Report [facility] HospitalFlow cytometry [id number] 14:52:18 Test Item Value Reference Range Interpretation Comments Case number (test code = [id number]) Flow cytometry evaluation See link below for (test code = 2246618) PDF Lab Report [facility] Anjana NEED PHYS SKILL,DX OR [id number] 14:18:07Jaiver Borjas RN 02/07/2020 9:21 AMMidline Date/Time: 02/07/2020 [...] to vein ratio: 41%MidLine Characteristics: Catheter Brand: ANGIODYNAMReturbo External Catheter Length (cm): 0 Internal Catheter Length (cm): 12 Total Catheter Length (cm): 12 Catheter Lot Number: [id number] Catheter Expiration Date: 1Procedure details: Landmarks identified: [...] tolerance of procedure: Tolerated well, no immediate complicationsVENIPUNC NEED PHYS SKILL,DX OR [id number] 14:18:07Javier Kolb RN 02/07/2020 9:21 AMMidline Date/Time: [...] Catheter Length (cm): 12 Catheter Lot Number: [id number] Catheter Expiration Date: 1Procedure details: Landmarks identified: [...] tolerance of procedure: Tolerated well, no immediate complicationsCRITICAL ACCESS [facility]PITAL [id number] 17:49:19 Test Item Value Reference Range Interpretation Comments Ventricular rate (test code = 253) Atrial rate (test code = 255) UT interval (test code = 266) QRSD interval [...] of 04-FEB-2020 04:50,-No significant change was found- [facility] [id number] 17:49:19 Test Item Value Reference Range Interpretation Comments Ventricular rate (test code = 253) Atrial rate (test code = 255) UT interval (test code = 266) QRSD interval [...] of 04-FEB-2020 04:50,-No significant change was found- [facility] TexasXR Chest 1 [id number] 03:09:52EXAMINATION: XR CHEST 1 VW PORTABLE CLINICAL HISTORY: 34 years Female chest pressure on exertion COMP ARISON: None. IMPRESSION: No acute cardiopulmonary disease. FINDINGS: The cardiomediastinal silhouette, lungs, and regional skeletal structures are within normal limits for age. [facility]ITALYB41KJNSOp Interface, Radiology Results 02/05/2020 10:12 PM CDT EXAMINATION: XR CHEST 1 VW PORTABLECLINICAL HISTORY: 34 years Female chest pressure onexertionCOMPARISON: None.IMPRESSION:No acute cardiopulmonary disease.FINDINGS:The cardiomediastinal silhouette, lungs, and regional skeletal structures are within normal limits for age. [facility]ALTHTW35VMVUJaxrbkmwcHCA Houston Healthcare WestXR Chest 1 Vw Snbdqdrk1188-68-68 03:09:52EXAMINATION: XR CHEST 1 VW PORTABLE CLINICAL HISTORY: 34 years Female chest pressure on exertion COMPARISON: None. IMPRESSION: No acute cardiopulmonary disease. FINDINGS: The cardiomediastinal silhouette, lungs, and regional skeletal structures are within normal limits for age. [facility]PITALGU36FLONUn Interface, Radiology Results 02/05/2020 10:12 PM CDT EXAMINATION: XR CHEST 1 VW PORTABLECLINICAL HISTORY: 34 years Female chest pressure on exertionCOMPARISON: None.IMPRESSION:No acute cardiopulmonary disease.FINDINGS:The cardiomediastinal silhouette, lungs, and regional skeletal structures are within normal limits for age. [address] Cytology (non-gynecological) [id number] 23:15:16 Test Item Value Reference Range Interpretation Comments Case number (test code = [id number]) Cytology See link below for (non-gynecological) PDF Lab Report report (test code = 1178) Result status (test code This is Final Report = [id number]) for [id number] [facility] HospitalCytology (non-gynecological) [id number] 23:15:16 Test Item Value Reference Range Interpretation Comments Case number (test code = [id number]) Cytology See link below for (non-gynecological) PDF Lab Report report (test code = 1178) Result status (test code This is Final Report = [id number]) for [id number] [facility] (routine)2020-02-04 15:51:25EEG AWAKE AND ASLEEP Date of Service: 02/04/2020 Awake Recording: The occipital dominant rhythm is 10-11 Hz. 18-22 Hz activity is present in all regions. Sleep Recording: No epileptiform activity was recorded. Hyperventilation: No abnormality elicited. Photic Stimulation: No abnormality elicited. Impression The background activity is within the range of normal variation. No lateralized or epileptiform activity was recorded. ICD-10 Code: H823EHB (routine)2020-02-04 15:51:25EEG AWAKE AND ASLEEP Date of Service: 02/04/2020 Awake Recording: The occipital dominant rhythm is 10-11 Hz. 18-22 Hz activity is present in all regions. Sleep Recording: No epileptiform activity was recorded. Hyperventilation: No abnormality elicited. Photic Stimulation: No abnormality elicited. Impression The background activity is within the range of normal variation. No lateralized or epileptiform activity was recorded. ICD-10 Code: R569IR Lumbar Puncture by Lwoejjzew6341-20-86 15:23:15EXAMINATION: IR LUMBAR PUNCTURE CLINICAL HISTORY: meningitis [...] Opening pressure was 21 cm of water. [facility]-[id number] [facility], Radiology Results 02/04/2020 10:26 AM CDT EXAMINATION: [...] puncture.Op ening pressure was 21 cm of water.[facility]-[id number] HospitalIR Lumbar Puncture by Lidzklhjp9063-84-39 15:23:15EXAMINATION: IR LUMBAR PUNCTURE CLINICAL HISTORY: meningitis [...] Opening pressure was 21 cm of water. [facility]-[id number] [facility], Radiology Results 02/04/2020 10:26 AM CDT EXAMINATION: [...] puncture.Op ening pressure was 21 cm of water.[id number] FjxwiwqbPRIF-AgZ-4 (COVID-19) RNA [Presence] in Respiratory specimen by SARI with probe detection 2020-02-04 05:23:12 Test Item Value Reference Range Interpretation Comments SARS-CoV-2 (COVID-19) RNA Not detected Not-Detected [Presence] in Respiratory specimen by SARI with probe detection (test code = 81250-4) [facility] Brain & Orbit W Wo Vbcalsio3767-79-10 03:36:27 EXAMINATION: MRI BRAIN & ORBIT W WO [...] Unremarkable MRI of the brain and orbits. [facility]-[id number] Interface, RadiologyResults Incoming - 02/03/2020 10:39 PM CDT EXAMINATION: MRI BRAIN & ORBIT W WO CONTRASTCLINICAL HISTORY: Vision lossCOMPARISON: CT brain dated 02/03/2020.FINDINGS:Pre and postcontrast MRI of the brain and orbits is interpreted.The optic nerves, optic chiasm, and optic tracts are normal in size and signal intensity. There is no abnormal en hancement.The brain is normal in morphology and in signal intensity.There is no abnormal restricted diffusion.No extra-axial collection or mass effect is seen.The major vascular flow-voids are preserved.IMPRESSION:Unremarkable MRI of the brain and orbits.[facility]-[id number] Regional Medical Center Brain & Orbit W Wo Mnkowkhd5287-07-22 03:36:27EXAMINATION: MRI BRAIN & ORBIT W WO [...] Unremarkable MRI of the brain and orbits. [facility]-[id number] Interface, RadiologyResults Incoming - 02/03/2020 10:39 PM [...] are preserved.IMPRESSION:Unremarkable MRI of the brain and orbits.[facility]-[id number] [facility] Head Wo [id number] 21:17:18EXAM: CT HEAD WO CONTRAST CLINICAL HISTORY: [...] acute intracranial abnormality. 1M2RAD_PS01Hm Interface, Radiology Results Incoming - 02/03/2020 4:20 [...] are intact.IMPRESSION:No CT evidence for acute intracranial abnormality.1M2RAD_PS01[facility] HospitalCT Head Wo Fsqodwwk9685-10-42 21:17:18EXAM: CT HEAD WO CONTRAST CLINICAL HISTORY: [...] are intact.IMPRESSION:No CT evidence for acute intracranial abnormality.1M2RAD_PS01[facility]
[2022-02-10 03:21] LABS: Hematocrit 33.2 % (36.0-45.0); Lymphocytes % 36.1 % (15.3-44.8); MCV 80.1 fL (80-100); MPV 9.8 fL (7.6-11.3); RBC Red Blood Cell Count 4.15 M/uL (3.86-4.86)
[2022-02-10] MEDS ORDERED: NA CHLORIDE 0.9% 500 ML ONE (03:34)
[2022-02-10 03:40] LABS: Potassium 3.2 mmol/L (3.5-5.1); Troponin High Sensitivity 4.6 pg/mL (<58.9)
[2022-02-10] MEDS ORDERED: ACETAMINOPHEN 500 MG TAB ONE (04:35)
--- NOTE | 2022-02-10 05:05 | ER ---
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 Coronavirus screen: At this time, the client does not indicate any symptoms associated with coronavirus-19. Ebola Screen: No symptoms or risks identified at this time. Initial Sepsis Screen: Does the patient meet any 2 criteria? No. Patient's initial sepsis screen is negative. Does the patient have a suspected source of infection? No. Patient's initial sepsis screen is negative. Risk Assessment: Do you want to hurt yourself or someone else? Patient reports no desire to harm self or others. Onset of symptoms was February 10, 2022. 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 - Social history:: Smoking status: Patient denies any tobacco usage or history of. Patient uses alcohol, occasionally. Patient/guardian denies using street drugs. - Family history:: not pertinent. Screenin:20 Abuse screen: Denies threats or abuse. Denies injuries from another. Nutritional aa9 screening: No deficits noted. Tuberculosis screening: No symptoms or risk factors identified. Fall Risk None identified. Assessment: 02:59 General: Appears in no apparent distress. uncomfortable, Behavior is calm, cooperative, jb4 appropriate for age. Pain: Complains of pain in head, neck, chest. Pain does not radiate. Pain currently is 10 out of 10 on a pain scale. Pain began 2-3 days ago. Neuro: Level of Consciousness is awake, alert, obeys commands, Oriented to person, place, time, situation. Cardiovascular: Patient's skin is warm and dry. Respiratory: Airway is patent Respiratory effort is even, unlabored, Respiratory pattern is regular, symmetrical. GI: No signs and/or symptoms were reported involving the gastrointestinal system. : No signs and/or symptoms were reported regarding the genitourinary system. EENT: No signs and/or symptoms were reported regarding the EENT system. Derm: Skin is intact, Skin is pink, warm \\T\\ dry. Musculoskeletal: Circulation, motion, and sensation intact. Range of motion: intact in all extremities. 04:00 Reassessment: Patient appears in no apparent distress at this time. Patient and/or jb4 family updated on plan of care and expected duration. Pain level reassessed. Patient is alert, oriented x 3, equal unlabored respirations, skin warm/dry/pink. Vital Signs: 02:53 BP 120 / 83; Pulse 72; Resp 16 S; Temp 97.7(O); Pulse Ox 99% on R/A; Weight 77.11 kg bb (R); Height 5 ft. 6 in. (167.64 cm) (R); Pain 10/10; 04:15 BP 111 / 80; Pulse 66; Resp 16; Pulse Ox 100% on R/A; jb4 04:30 BP 122 / 77; Pulse 77; Resp 17 S; Pulse Ox 99% on R/A; aa9 05:20 BP 100 / 72; Pulse 63; Resp 17 S; Pulse Ox 99% on R/A; aa9 02:53 Body Mass Index 27.44 (77.11 kg, 167.64 cm) bb ED Course: 02:43 Patient arrived in ED. ja2 02:54 Rustam Aguirre MD is Attending Physician. lisandra 02:55 Triage completed. bb 02:55 Arm band placed on Patient placed in an exam room, on a stretcher, on pulse oximetry. bb 02:58 Bienvenido Delarosa, RN is Primary Nurse. jb4 03:19 XRAY Chest (1 view) In Process Unspecified. EDMS 03:29 Lipase Sent. jb4 04:06 CT Traumagram (Head C Spine CAP W Con) In Process Unspecified. EDMS 04:37 Patient has correct armband on for positive identification. Placed in gown. Bed in low aa9 position. Call light in reach. Side rails up X2. Pulse ox on. NIBP on. Warm blanket given. 05:04 Xavier Mehta MD is Referral Physician. lisandra 05:20 IV discontinued, intact, bleeding controlled, No redness/swelling at site. Pressure aa9 dressing applied. 05:24 No provider procedures requiring assistance completed. jb4 Administered Medications: 03:34 Drug: NS 0.9% 500 ml Route: IV; Rate: bolus; Site: right antecubital; jb4 04:31 Follow up: IV Status: Completed infusion; IV Intake: 500ml aa9 04:31 Follow up: Response: No adverse reaction aa9 04:37 Drug: Tylenol 500 mg Route: PO; aa9 05:24 Follow up: Response: No adverse reaction; Marked relief of symptoms jb4 05:24 Drug: Potassium Effervescent Tablet 25 mEq Route: PO; jb4 05:24 Follow up: Response: Medication administered at discharge. jb4 Medication: 05:20 VIS not applicable for this client. aa9 Intake: 04:31 IV: 500ml; Total: 500ml. aa9 Outcome: 05:05 Discharge ordered by . [facility] 05:25 Discharged to home ambulatory. jb4 05:25 Condition: stable 05:25 Discharge instructions given to patient, Instructed on discharge instructions, follow up and referral plans. medication usage, Demonstrated understanding of instructions, follow-up care, medications, Prescriptions given X 2. 05:25 Patient left the ED. jb4 Signatures: Dispatcher [employer] EDTN Rustam Aguirre MD MD cha Ballard, Brenda, RN RN bb Bienvenido Delarosa RN RN jb4 Ruth Arellano Aylin, RN RN aa9
--- NOTE | 2022-02-10 05:05 | EDPHYS ---
Physician Documentation [facility] Name: Snow Argueta Age: 36 yrs Sex: Female : 1985 Arrival Date: 02/10/2022 Time: 02:43 Bed 2 Private MD: ED Physician Rustam Aguirre HPI: 02/10 03:30 This 36 yrs old Female presents to ER via Ambulatory with complaints of Chest lisandra Pain, Headache. 03:30 The patient or guardian reports chest pain that is located primarily in the substernal lisandra area, anterior chest wall, bilaterally. The pain does not radiate. Associated signs and symptoms: The patient has no apparent associated signs or symptoms. The chest pain is described as sharp. Duration: The patient or guardian reports a single episode. Severity of pain: At its worst the pain was mild in the emergency department the pain is unchanged. The patient has not experienced similar symptoms in the past. 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 - Social history:: Smoking status: Patient denies any tobacco usage or history of. Patient uses alcohol, occasionally. Patient/guardian denies using street drugs. - Family history:: not pertinent. ROS: 03:30 Constitutional: Negative for fever, chills, and weight loss, Eyes: Negative for injury, lisandra pain, redness, and discharge, ENT: Negative for injury, pain, and discharge, Neck: Negative for injury, pain, and swelling, Cardiovascular: Negative for chest pain, palpitations, and edema, Respiratory: Negative for shortness of breath, cough, wheezing, and pleuritic chest pain, Abdomen/GI: Negative for abdominal pain, nausea, vomiting, diarrhea, and constipation, Back: Negative for injury and pain, : Negative for injury, bleeding, discharge, and swelling, MS/Extremity: Negative for injury and deformity, Skin: Negative for injury, rash, and discoloration, Neuro: Negative for headache, weakness, numbness, tingling, and seizure, Psych: Negative for depression, anxiety, suicide ideation, homicidal ideation, and hallucinations, Allergy/Immunology: Negative for hives, rash, and allergies, Endocrine: Negative for neck swelling, polydipsia, polyuria, polyphagia, and marked weight changes, Hematologic/Lymphatic: Negative for swollen nodes, abnormal bleeding, and unusual bruising. Exam: 03:30 Constitutional: This is a well developed, well nourished patient who is awake, alert, lisandra and in no acute distress. Head/Face: Normocephalic, atraumatic. Eyes: Pupils equal round and reactive to light, extra-ocular motions intact. Lids and lashes normal. Conjunctiva and sclera are non-icteric and not injected. Cornea within normal limits. Periorbital areas with no swelling, redness, or edema. ENT: Nares patent. No nasal discharge, no septal abnormalities noted. Tympanic membranes are normal and external auditory canals are clear. Oropharynx with no redness, swelling, or masses, exudates, or evidence of obstruction, uvula midline. Mucous membranes moist. Neck: Trachea midline, no thyromegaly or masses palpated, and no cervical lymphadenopathy. Supple, full range of motion without nuchal rigidity, or vertebral point tenderness. No Meningismus. Chest/axilla: Normal chest wall appearance and motion. Nontender with no deformity. No lesions are appreciated. Cardiovascular: Regular rate and rhythm with a normal S1 and S2. No gallops, murmurs, or rubs. Normal PMI, no JVD. No pulse deficits. Abdomen/GI: Soft, non-tender, with normal bowel sounds. No distension or tympany. No guarding or rebound. No evidence of tenderness throughout. Back: No spinal tenderness. No costovertebral tenderness. Full range of motion. Female : Normal external genitalia. Skin: Warm, dry with normal turgor. Normal color with no rashes, no lesions, and no evidence of cellulitis. MS/ Extremity: Pulses equal, no cyanosis. Neurovascular intact. Full, normal range of motion. Neuro: Awake and alert, GCS 15, oriented to person, place, time, and situation. Cranial nerves II-XII grossly intact. Motor strength 5/5 in all extremities. Sensory grossly intact. Cerebellar exam normal. Normal gait. 03:30 ECG was reviewed by the Attending Physician. 03:30 Respiratory: mild respiratory distress is noted, Respirations: normal, Breath sounds: are clear throughout, no bronchial sounds, no decreased breath sounds, no rales, rhonchi, no stridor, no wheezing, Respiratory rate: 72 Vital Signs: 02:53 BP 120 / 83; Pulse 72; Resp 16 S; Temp 97.7(O); Pulse Ox 99% on R/A; Weight 77.11 kg bb (R); Height 5 ft. 6 in. (167.64 cm) (R); Pain 10/10; 04:15 BP 111 / 80; Pulse 66; Resp 16; Pulse Ox 100% on R/A; jb4 04:30 BP 122 / 77; Pulse 77; Resp 17 S; Pulse Ox 99% on R/A; aa9 05:20 BP 100 / 72; Pulse 63; Resp 17 S; Pulse Ox 99% on R/A; aa9 02:53 Body Mass Index 27.44 (77.11 kg, 167.64 cm) bb MDM: 02:54 Patient medically screened. lisandra 03:33 Differential diagnosis: abnormal EKG, anxiety, chest wall pain, Cholelithiasis lisandra costochondritis, esophagitis, hiatal hernia, pneumothorax, pulmonary embolus, unstable angina. HEART Score: History: Slightly Suspicious (0), ECG: Normal (0), Age: < or = 45 years (0), Risk Factors: No Risk Factors Known (0), Troponin: < or = 1 x Normal Limit (0). The patient's deep vein thrombosis risk score was calculated as follows: Total Score: 0. This patient was found to be at low risk for a deep vein thrombosis by using the Well's assessment criteria. The patient's pulmonary embolism risk score was calculated as follows: suspected deep vein thrombosis (3 Pts) the patient has a history of a previous deep vein thrombosis or pulmonary embolism (1.5 Pts) Total Score: 0-2 points. This patient was found to be at low risk for a pulmonary embolism by using the Well's assessment criteria. ANUPAMA Risk Score: TOTAL SCORE = 0. Data reviewed: vital signs, nurses notes, lab test result(s), EKG, radiologic studies, CT scan, plain films. Data interpreted: residential monitor: rate is 72 beats/min, rhythm is regular, Pulse oximetry: on room air is 99 %. Test interpretation: by ED physician or midlevel provider: ECG, plain radiologic studies. 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 02/10 02:59 Order name: Basic Metabolic Panel; Complete Time: 05:02 4 02/10 02:59 Order name: CBC with Diff; Complete Time: 05:02 [facility] 02/10 02:59 Order name: Troponin HS; Complete Time: 05:02 [facility] 02/10 02:59 Order name: XRAY Chest (1 view) [facility] 02/10 03:16 Order name: Lipase; Complete Time: 05:02 lisandra 02/10 05:05 Order name: CREATININE WHOLE BLOOD; Complete Time: 05:17 EDMS 02/10 02:59 Order name: EKG; Complete Time: 03:00 4 02/10 02:59 Order name: Cardiac monitoring; Complete Time: 02:59 [facility] 02/10 02:59 Order name: EKG - Nurse/Tech; Complete Time: 03:10 4 02/10 02:59 Order name: IV Saline Lock; Complete Time: 02:59 [facility] 02/10 03:16 Order name: CT Traumagram (Head C Spine CAP W Con) lisandra 02/10 02:59 Order name: Labs collected and sent; Complete Time: 02:59 [facility] 02/10 02:59 Order name: O2 Per Protocol; Complete Time: 02:59 [facility] 02/10 02:59 Order name: O2 Sat Monitoring; Complete Time: 02:59 jb EC:30 Rate is 71 beats/min. Rhythm is regular. QRS [place] is Normal. [place] interval is normal. QRS lisandra interval is normal. QT interval is normal. No Q waves. T waves are Normal. No ST changes noted. Clinical impression: Normal ECG and No evidence of ischemia. Interpreted by me. Reviewed by me. Administered Medications: 03:34 Drug: NS 0.9% 500 ml Route: IV; Rate: bolus; Site: right antecubital; jb4 04:31 Follow up: IV Status: Completed infusion; IV Intake: 500ml aa9 04:31 Follow up: Response: No adverse reaction aa9 04:37 Drug: Tylenol 500 mg Route: PO; aa9 05:24 Follow up: Response: No adverse reaction; Marked relief of symptoms jb4 05:24 Drug: Potassium Effervescent Tablet 25 mEq Route: PO; jb4 05:24 Follow up: Response: Medication administered at discharge. 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 lisandra - Other specified noninfective gastroenteritis and colitis lisandra - Hypokalemia lisandra Followup: lisandra - With: Private Physician - When: 2 - 3 days - Reason: Recheck today's complaints, Continuance of care, Re-evaluation by your physician Followup: lisandra - With: - When: 2 - 3 days - Reason: Recheck today's complaints, Continuance of care, Re-evaluation by your physician Discharge Instructions: - Discharge Summary Sheet lisandra - Potassium Content of Foods lisandra - Head Injury, Adult lisandra - Fall Prevention in the Home, Adult lisandra - Head Injury, Adult, [id number] lisandra - Hypokalemia lisandra Forms: - Medication Reconciliation Form lisandra - Thank You Letter lisandra - Antibiotic Education lisandra - Prescription Opioid Use lisandra - Work release form aa9 Prescriptions: - Tylenol 325 mg Oral Tablet - take 2 tablets by ORAL route every 6 hours as needed; 1 bottle; Refills: 0, lisandra Product Selection Permitted - promethazine 25 mg Oral Tablet - take 1 tablet by ORAL route every 6 hours As needed; 20 tablet; Refills: 0, lisandra Product Selection Permitted Signatures: Dispatcher [employer] EDRustam Chew MD MD cha Ballard, Brenda, RN RN Bienvenido Doe RN RN jb4 Leanne Lucio RN RN aa9 Corrections: (The following items were deleted from the chart) 05:24 03:16 Urine Dipstick-Ancillary ordered. lisandra guthrie 05:24 03:16 Urine Test ordered. lisandra [email or web address]
[2022-02-10] MEDS ORDERED: POTASSIUM 25 MEQ EFFERV TAB ONE (05:18)
[2022-02-10 05:35] VITALS: TEMP 97.7
[2022-02-10 05:36] VITALS: O2SAT 99
[2022-02-10 05:38] VITALS: BP 100/72
--- NOTE | 2022-02-11 15:32 | RAD REPORT ---
EXAM DESCRIPTION: CT - Head C Spine Cap Stefano Rascon - 02/10/2022 4:05 am CLINICAL HISTORY: The patient is 36 years old and is Female; FALL TECHNIQUE: Axial computed tomography images of the head/brain and cervical spine without intravenous contrast. Sagittal and coronal reformatted images were created and reviewed. This CT exam was pe rformed using one or more of the following dose reduction techniques: automated exposure control, a djustment of the mA and/or kV according to patient size, and/or use of iterative reconstruction techn ique. COMPARISON: No relevant prior studies available. FINDINGS: Brain: Unremarkable. No hemorrhage. No significant white matter disease. No edema. Ventricles: Unremarkable. No ventriculomegaly. Skull: No acute fracture. Sinuses: Unremarkable as visualized. No acute sinusitis. Mastoid air cells: Unremarkable as visualized. No mastoid effusion. Vertebrae: Unremarkable. No acute fracture. Normal alignment. Discs/spinal canal/neural foramina: No acute findings. No spinal canal stenosis. Soft tissues: Unremarkable. * A single impression for all exams can be found at the end of this report EXAM DESCRIPTION: CT Chest, Abdomen and Pelvis With Intravenous Contrast CLINICAL HISTORY: The patient is 36 years old and is Female; FALL TECHNIQUE: Axial computed tomography images of the chest, abdomen and pelvis with intravenous contra st. Sagittal and coronal reformatted images were created and reviewed. This CT exam was performed using one or more of the following dose reduction techniques: automated exposure control, adjustme nt of the mA and/or kV according to patient size, and/or use of iterative reconstruction technique. COMPARISON: No relevant prior studies available. FINDINGS: CHEST: Lungs: Unremarkable. No mass. No consolidation. Pleural space: Unremarkable. No significant effusion. No pneumothorax. Heart: Unremarkable. No cardiomegaly. No significant pericardial effusion. No significant c oronary artery calcifications. ABDOMEN: Liver: Unremarkable. No mass. Gallbladder and bile ducts: Gallbladder is surgically absent. No ductal dilation. Pancreas: Unremarkable. No ductal dilation. No mass. Spleen: Unremarkable. No splenomegaly. Adrenals: Unremarkable. No mass. Kidneys and ureters: Simple cyst in the left kidney. ACR White Paper guidelines (Andrea, et al. JA CR 2018; 15(2):264-273) suggest no follow-up is necessary. No hydronephrosis. No solid mass. Stomach and bowel: Mild mesenteric stranding around the small bowel in the right lower quadrant. No mucosal thickening. No obstruction. PELVIS: Appendix: Suggestion of prior appendectomy. Bladder: Unremarkable. No mass. Reproductive: Unremarkable as visualized. CHEST, ABDOMEN and PELVIS: Intraperitoneal space: Small amount of free fluid in the dependent pelvis which may be physiologi c. No free air. Bones/joints: Unremarkable. No acute fracture. No dislocation. Soft tissues: Unremarkable. Vasculature: Unremarkable. No aortic aneurysm. Lymph nodes: Unremarkable. No enlarged lymph nodes. * A single impression for all exams can be found at the end of this report IMPRESSION: CT Head and Cervical Spine Without Intravenous Contrast: No acute intracranial abnormality. No acute findings in the cervical spine. CT Chest, Abdomen and Pelvis With Intravenous Contrast: 1. Mild mesenteric stranding around the small bowel in the right lower quadrant. No mucosal thicken ing. 2. Additional non-emergent findings as above. Electronically signed by: Aldo Shah MD 02/10/2022 4:51 AM CDT Due to temporary technical issues with the PACS/Fluency reporting system, reports are being signed by the in house radiologists without review as a courtesy to insure prompt reporting. The interpreting radiologist is fully responsible for the content of the report.
--- NOTE | 2022-02-11 15:34 | RAD REPORT ---
EXAM DESCRIPTION: RAD - Chest Single View - 02/10/2022 3:17 am CLINICAL HISTORY: The patient is 36 years old and is Female; CHEST PAIN TECHNIQUE: Frontal view of the chest. COMPARISON: No relevant prior studies available. FINDINGS: Lungs: Unremarkable. No consolidation. Pleural space: Unremarkable. No pneumothorax. Heart: Unremarkable. Mediastinum: Unremarkable. Bones/joints: Unremarkable. IMPRESSION: No acute findings in the chest. Electronically signed by: Aldo Shah MD 02/10/2022 3:30 AM CDT Due to temporary technical issues with the PACS/Fluency reporting system, reports are being signed by the in house radiologists without review as a courtesy to insure prompt reporting. The interpreting radiologist is fully responsible for the content of the report.
--- NOTE | 2022-02-11 18:41 | EKG ---
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
== END 2022-02-10 05:25 | disposition home or self-care (01) ==
LOC: ER 02:39
DX: S20.229A Contusion of unspecified back wall of thorax, initial encounter (principal); S20.219A Contusion of unspecified front wall of thorax, initial encounter; S09.90XA Unspecified injury of head, initial encounter; R51.9 Headache, unspecified; E87.6 Hypokalemia; K52.89 Other specified noninfective gastroenteritis and colitis; W18.30XA Fall on same level, unspecified, initial encounter; Z79.01 Long term (current) use of anticoagulants; E03.9 Hypothyroidism, unspecified; Z85.6 Personal history of leukemia; Z88.8 Allergy status to other drugs, medicaments and biological substances; Z91.040 Latex allergy status; Z91.048 Other nonmedicinal substance allergy status
CPT/HCPCS: 93005; 85025; 80048; 36415; 82565; 84484; 83690; 70450; 72125; 71260; 74177; 71045; 96360; 99284; Q9967; J7040

== ENCOUNTER 2022-05-09 11:06 | Emergency (ER) | payer BC ==
--- OUTSIDE RECORDS SUMMARY | 2022-05-09 11:09 | XMS REPORT | Clinical Summary ---
:1985 Author Organization [facility] Address [address] [place] [address] Care Team Providers Name Role Phone Marck Greenberg MD Primary Care Provider Jag Schmidt MD Unavailable Niharika Peraza MD Unavailable Anita Yancey MD Unavailable Fab Pena MD Unavailable Juan Hammonds MD Unavailable Unavailable Gurpreet Hernandez MD Unavailable Unavailable Heydi Dunlap Unavailable Patsy Etienne Unavailable Topher Johnson APN Unavailable Kori Allison Unavailable Unavailable Michael Flowers MD Unavailable Maddy Winchester NP Unavailable Unavailable Pedro Luis Meza MD Unavailable Yuli Milligan NP Unavailable Kathi Lorenzo MD Unavailable Adria Alfaro MD Unavailable Marck Greenberg MD Unavailable SantosNina PENSION ADVISER Unavailable [phone] Billjose carlosRin PENSION ADVISER Unavailable Suly Ochoa PA Unavailable Lee العلي PENSION ADVISER Unavailable Christianne Chaidez MD Unavailable [phone] WaiTommie martinez Mike PA Unavailable Marie Jung PA Unavailable [phone] GraylingVashti Alexandra PENSION ADVISER Unavailable [phone] Graeme Damico MD Unavailable Chico Damico MD Unavailable Kristy Florez MD Unavailable [phone] Sony Rich MD Unavailable Sony Watson MD Unavailable [phone] Santino Alvarenga MD Unavailable Aurora Busby MD Unavailable Unavailable Domenic Gordon MD Unavailable Unavailable Otis Busby MD Unavailable [phone] Allergies Active Allergy Reactions Severity Noted [...] Date Acute promyelocytic leukemia, 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 Immunizations Name Administration Dates Next Due Influenza [...] Tobacco Use Types Packs/Day Years Used Date Smoking Tobacco: Never Assessed Sex Assigned at Date Recorded Not on file Obstetrics History Last Filed Vital Signs Not on file Plan of Treatment Health Maintenance Due Date Last Done Comments COVID-19 Vaccination (#1) 05/10/1987 Results Not on fileafter 05/09/2021 Care Teams Supply Chain Development Manager Relationship Specialty Start Date End Date Marck Greenberg MD PCP - General 06/21/[address] [place] [phone] Jag Schmidt MD Physician 06/28/[address] [place] [address] [phone] Niharika Peraza MD Physician 06/28/[address] [place] [phone] Anita Yancey MD Physician 06/28/15 [address] [facility] [address] [place] [address] Fab Pena MD Physician 06/28/[address] [place] [phone] Juan Hammonds MD Physician 06/28/15 Gurpreet Hernandez MD Physician 06/28/15 Heydi Dunlap PA Physician Developer Advocate 06/28/[address] [place] [address] [phone] Patsy Etienne PA Physician Developer Advocate 06/28/[address] [place] [address] [phone] Topher Johnson APN Nurse Practitioner 06/28/[address] [place] [address] 13734 Kori Allison AuD Manager Provider Relations 06/28/15 Michael Flowers MD Physician 06/28/[address] [place] [address] [phone] Maddy Winchester PENSION ADVISER Nurse Practitioner 06/28/15 Pedro Luis Meza MD Physician 06/28/[address] [address] Yuli Milligan, XOCHITL Nurse Practitioner 06/28/[address] [place] [phone] Kathi Lorenzo MD Physician 06/28/[address] [place] [phone] Adria Alfaro MD Physician 06/28/[address] [place] [phone] Marck Greenberg MD Physician 06/28/[address] [place] [address] [phone] Nina Graham NP Nurse Practitioner 06/28/[address] [place] [address] [phone] Rin Wren NP Nurse Practitioner 06/28/[address] [place] [address] 16682 Suly Ochoa PA Physician Developer Advocate 06/28/[address] [place] [phone] Lee العلي, PENSION ADVISER Nurse Practitioner 06/28/[address] [place] [phone] Christianne Chaidez MD Physician 06/28/[address] [place] [address] [phone] Tommie Yanez PA Physician Developer Advocate 06/28/[address] [place] [address]. [place] [address] Marie Jung PA Physician Developer Advocate 06/28/[address] [place] [address] Alexandra Villegas NP Nurse Practitioner 06/28/[address] [place] [address] [phone] Graeme Damico MD Physician 06/28/[address] [place] [address] [phone] Chico Damico MD Physician 06/28/[address] [place] [address] [phone] Kristy Florez MD Physician 06/28/[address] [place] [phone] Sony Rich MD Physician 06/28/[address] [place] [address] [phone] Sony Watson MD Physician 06/28/[address] [place] [address] [phone] Santino Alvarenga MD Physician 06/28/[address] [place] [phone] Aurora Busby MD Physician 06/28/15 Domenic Gordon MD Physician 06/28/15 Otis Busby MD Physician 06/28/[address] [place] [id number]
--- OUTSIDE RECORDS SUMMARY | 2022-05-09 11:19 | XMS REPORT | Continuity of Care Document ---
:1985 Author Organization [facility] t Address [address] [place] [address] Care Team Providers Name Role Phone Marck Greenberg MD Primary Care Physician Soco Savage Attending Clinician Unavailable David Chung Attending Clinician MADDY SIMMS Attending Clinician Unavailable Maddy Simms MD Attending Clinician Shaylee Ross RN Attending Clinician Unavailable Jori Long NP Attending Clinician Nicki Scott Attending Clinician EARLE IVERSON Attending Clinician Unavailable Zayra MORENO, Earle Attending Clinician Silvina House Attending Clinician Unavailable INOCENTE MEJIAS Attending Clinician Unavailable Shilpa Mason RN Attending Clinician Unavailable Ebrahim MEASUREMENT ANALYST, Truong Attending Clinician EBTRUONG MOHR Attending Clinician Unavailable Provider, [facility] Attending Clinician Unavailable Reji FNP, Tessa Rodriguez Attending Clinician TESSA MENDOZA Attending Clinician Unavailable Selena HAMILTON, Chika Attending Clinician Marques Mane MD Attending Clinician [facility] Attending Clinician Unavailable Caleb Umana MD Attending Clinician Kanchan Downey MD Attending Clinician Jen Tsai MD Attending Clinician [phone] MD KANCHAN DOWNEY Attending Clinician Unavailable Tung HAMILTON, Isidro Rowe Attending Clinician Jasmeet Benedict MD Attending Clinician Erica HAMILTON, Yesi Muñoz Attending Clinician [phone] Diogo Blandon Attending Clinician Unavailable Kim Guevara MD Attending Clinician Karen Pineda MD Attending Clinician [facility] Attending Clinician Gabby García MA Attending Clinician Unavailable MD KAREN PINEDA Attending Clinician Unavailable Soco Savage Admitting Clinician Unavailable KANCHAN DOWNEY Admitting Clinician Unavailable MD KANCHAN DOWNEY Admitting Clinician Unavailable JASMEET BENEDICT Admitting Clinician Unavailable KAREN PINEDA Admitting Clinician Unavailable MD KAREN PINEDA Admitting Clinician Unavailable Payers Payer Name Policy Type Policy Number Effective Date Expiration Date [facility] Blue Cross 6 [id number] 2021 [facility] t Blue Shield of 00:00:[address] - [facility] [place] [id number] 2021 00:00:00 [place] [id number] 2018 POS 00:00:00 JANE Walker [id number] 2020 [facility] 00:00:00 - [facility] Problems Condition Condition Condition Status Onset Resolution [...] 2-22 it y of tic tic 00:00: [place] leukemia, leukemia, 00 MD in in [facility] remission remission [facility] Stressful Stressful Problem Com mon life life Spirit events events - [facility] affecting affecting [facility] family and family and Ann Marie kes household household [facility] [id number] History of Problem Co mmon colon Spirit polyps - [facility] [id number] Right Problem Common anterior Spirit knee pain - [facility] 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 with [facility] consciousn Medica l ess at Center onset Incontinen Incontinen Problem C ommon ce ce [place] [id number] Elevated Problem Comm on blood Spirit pressure - [facility] reading without [facility] diagnosis Medical of [place] hypertensi on Tinnitus Tinnitus Problem Commo n Spirit [facility] Hiatal Hiatal Problem Common hernia hernia [place] [id number] Fatty Problem Common liver [place] Palpitatio Palpitatio Problem C ommon ns ns [place] [id number] Urgency-fr Problem Com mon equency [facility] syndrome [facility] [id number] Stress Problem Common incontinen Spirit ce [facility] [id number] Viral Problem Common illness [place] [id number] Laryngitis Problem Com mon [place] Gastritis Gastritis Problem Com mon [place] [id number] 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 disease reflux St disease) [facility] Anxiety Anxiety Problem Common [place] [id number] Mild Problem Common intermitte Spirit nt asthma - [facility] Center Dizziness Dizziness Problem Com mon Spirit [facility] [id number] Seasonal Problem Comm on allergies Spirit [facility] [id number] Neck pain Problem Comm on Spirit [facility] [id number] Constipati Problem Com mon on, Spirit unspecifie - CHI d St constipati [facility] on [facility] Medical [place] [id number] Attention Problem Comm on deficit Spirit hyperactiv - CHI ity [facility] (ADHD), Medical combined Center type [id number] Adult Problem Common general Spirit medical - CH[facility] exam [facility] Rectal Rectal Problem Common bleeding bleeding [place] [id number] Depression Problem Co mmon with Spirit anxiety [facility] [id number] Cough Problem Common [place] Leukemia Leukemia Problem Commo n [place] [id number] Acquired Problem Comm on hypothyroi [facility] [id number] Swelling Problem Commo n [place] Allergic Allergic Problem Commo n rhinitis rhinitis [place] [id number] Abnormal Problem Comm on ultrasound [place] [id number] Iron Problem Common deficiency [facility] anemia, - [facility] unspecifie [facility] deficiency Medica l anemia Center type [id number] Lupus Problem Common [place] [id number] Restless Problem Commo n legs [place] [id number] [place] [address] tunnel Spirit syndrome, - CHI left [facility] History of History Problem Active 2022-04-19 Memoria - * of - * 09:59:53 l leukemia leukemia Murray n (context-d (context-d ependent ependent category) category) Active Problem 04/19/2022 [facility] Headache Headache Problem Active 2022-04-19 Memoria (finding) (finding) 09:59:53 l Active [place]ardo Problem 04/19/2022 [facility] Simple Simple Problem Active 2022-04-19 Unruly kieran obesity obesity 09:59:53 l (disorder) (disorder) [place] [facility] Active Problem 04/19/2022 [facility] Backache Backache Problem Active 2022-04-19 Memoria (finding) (finding) 09:59:53 l Active [place] Problem 04/19/2022 [facility] Hemiplegia Hemiplegi Problem Active 2022-04-19 Memoria (disorder) a 09:59:53 l (disorder) [facility]chell Active Problem 04/19/2022 [facility] Visual Visual Problem Active 2022-04-19 Unruly kieran disturbanc disturbanc 09:59:53 l e e Ricardo (disorder) (disorder) Active Problem 04/19/2022 [facility] 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 09:59:53 l thy thy [place] (disorder) (disorder) Active Problem 04/19/2022 [facility] Disease Disease Problem Active 2022-04-19 Me moria caused by caused by 09:59:53 l 2018-nCoV nCoV Herm zay Active Problem 04/19/2022 [facility] Disorienta Disorient Problem Active 2022-04-19 Memoria leon ated 09:59:53 l (finding) (finding) Herm zay Active Problem 04/19/2022 [facility] Hypothyroi Hypothyro Problem Active 2022-04-19 Memoria dism idism 09:59:53 l (disorder) (disorder) [place] r[place] Active Problem 04/19/2022 [facility] Seizure Seizure Problem Active 2022-04-19 Me moria disorder disorder 09:59:53 l (disorder) (disorder) He rmann Active Problem 04/19/2022 [facility] Syncope Syncope Problem Active 2022-04-19 Me moria (disorder) (disorder) 09:59:53 l Active [place]ardo Problem 04/19/2022 [facility] Tremor Tremor Problem Active 2022-04-19 Unruly kieran (finding) (finding) 09:59:53 l Active [place] Problem 04/19/2022 [facility] 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 (disorder) (disorder) Active Problem 09/01/2020 [facility] No known No known Disease Unive rs active active ity of problems problems [facility] Allergies, Adverse Reactions, Alerts Allergy Allergy Status Severity Reaction(s) Onset Inactive Treating Comm ents Source Name Type Date Date Clinician CEPHALEX DRUG Active High Hives Univers IN INGREDI 12-03 ity of 00:00: [facility] ONDANSET DRUG Active High Other-Cmnt Univ ers CLEO HCL INGREDI 12-03 ity of 00:: Medical Branch Ondanset Drug Active Other - See migraines Univers cleo Hcl Allergy comments 12-03 ity of 00:00: [facility] Zofran Propensi Active Other (See Bayl or Odt ty to Comments) 7-09 College adverse 00:00: of reaction 00 Medicin [...] reaction 00 MD [facility] Cefpodox Drug Active Hives Univers nannette Allergy 2-22 ity of 00:00: [place] 00 MD [facility] Gadobutr Drug Active Other (See Nausea / Un pau ol Intolera Comments) - Vomiting- it y of nce 00:00: iodine [place] 00 prior to MD [facility] Latex Drug Active Dermatitis Univer s Allergy 2-22 ity of 00:00: [place] 00 MD [facility] GADOBUTR DRUG Active High Other-Cmnt Univ ers OL INGREDI 2-22 ity of 00:00: [place] 00 Medical Branch CEFPODOX DRUG Active Med Hives Univers NANNETTE INGREDI 06-12 ity of 00:00: Medical Branch Gadobutr Propensi Active Other (See Vomiting1 [facility] ol ty to Comments) 06-12 [...] MRI Latex Propensi Active Swelling [facility] ty to 06-12 [place] adverse 00:00: of reaction 00 Medicin s to e substanc e Cephalex Propensi Active Itching 2012-04 [facility] r in ty to 06-03 [place] adverse 00:00: of reaction 00 Medicin s to e drug LATEX DRUG Active High Rash Univers INGREDI -15 ity of 00:00: [place] [facility] Latex Drug Active Swelling Univers Allergy 3-15 ity of 00:00: [address] [place] [address] cephalex cephalex Active Memori a in in l [place] Latex Latex Active Memoria l [place]ardo Gadavist Gadavist Active Memori a l [place] Zofran Zofran Active Memoria l [place]ardo Feraheme Feraheme Active Memori a l Ricardo NO KNOWN Drug Active Univers ALLERGIE Class ity of S [facility] cephalex cephalex Active Unknown Commo n in in Spirit - [facility] 30 Drug Active Unknown Common allergy [place] Family History Family Member Diagnosis Comments Start Date Stop Date Source Paternal grandfather [facility] [place] [facility] Social History Social Habit Start Date Stop Date Quantity Comments Source History of Common Spirit - Tobacco Use [facility] History [employer] o f Alcohol Frequency [place] M edical Branch History [employer] o f Alcohol Std [place] Medical Drinks Branch History [employer] o f Alcohol Binge [place] Medic al Branch Exposure to Not sure University of SARS-CoV-2 [place] Medical (event) Branch Alcohol intake 2020-06-10 2020-06-10 Current drinker [facility] 00:00:00 00:00:00 of alcohol (finding) Tobacco use and 2020-02-21 2020-02-21 Never used [facility] llege of exposure 00:00:00 00:00:00 Medicine Alcohol Comment 2020-02-03 2020-02-03 occ drinker [facility] 00:00:00 00:00:00 Sex [birth year] At [birth year] [facility] [place] [facility] 00:00:00 00:00:00 Smoking Status Start Date Stop Date Source Tobacco smoking status [facility] Medications Ordered Filled Start Stop Current Ordering Indication Dosage Frequency Signature Comments Components Source Medication Medication Date Date Medication? Clinician (SIG) Name Name Potassium 2021-04 Yes 0 Memoria Alum 2-27 Refill(s) l 20:08: [place] Iron 100 2021-04 Yes PO, Daily, Mem oria Plus 2-27 0 l 20:08: Refill(s) Vyvanse 50 Vyvanse 50 2021-04 No 1{capsu QD Vyvanse 50 MG MG 2-19 le_in_t MG 00:00: he_morn 00 ing} primidone 2021-04 Yes 50 mg = 1 Mem oria 50 mg oral 0-14 tab, PO, l tablet 15:22: Bedtime, # Rupal nn 00 30 tab, 3 Refill(s), Pharmacy: [facility] #[id number], 165.1, cm, 02/01/22 9:38:00 CDT, Height, 78.182, kg, 02/01/22 9:38:00 CDT, Weight primidone 2021-04 Yes 50 mg = 1 Mem oria 50 mg oral 0-14 tab, PO, l tablet 15:22: Bedtime, # Rupal nn 00 30 tab, 3 Refill(s), Pharmacy: [facility] #[id number], 165.1, cm, 02/01/22 9:38:00 CDT, Height, 78.182, kg, 02/01/22 9:38:00 CDT, Weight Vyvanse 50 Vyvanse 50 No 1{capsu QD Vyvanse 50 MG MG 9-21 le_in_t MG 00:00: he_morn 00 ing} rOPINIRole rOPINIRole 2022-0 No 1{table rOPINIRole HCl 0.5 MG HCl 0.5 MG 9-21 t} HCl 0.5 MG 00:00: 00 Vyvanse 50 Vyvanse 50 2022-0 No 1{capsu QD Vyvanse 50 MG MG 9-21 le_in_t MG 00:00: he_morn 00 ing} rOPINIRole rOPINIRole 2022-0 No 1{table rOPINIRole HCl 0.5 MG HCl 0.5 MG 9-21 t} HCl 0.5 MG 00:00: 00 Vyvanse 50 Vyvanse 50 2022-0 No 1{capsu QD Vyvanse 50 MG MG 9-21 le_in_t MG 00:00: he_morn 00 ing} rOPINIRole rOPINIRole 2022-0 No 1{table rOPINIRole HCl 0.5 MG HCl 0.5 MG 9-21 t} HCl 0.5 MG 00:00: 00 Vyvanse 50 Vyvanse 50 2022-0 No 1{capsu QD Vyvanse 50 MG MG 9-21 le_in_t MG 00:00: he_morn 00 ing} rOPINIRole rOPINIRole 2022-0 No 1{table rOPINIRole HCl 0.5 MG HCl 0.5 MG 9-21 t} HCl 0.5 MG 00:00: 00 rOPINIRole rOPINIRole 2022-0 No 1{table rOPINIRole HCl 0.5 MG HCl 0.5 MG 9-21 t} HCl 0.5 MG 00:00: 00 Vyvanse 50 Vyvanse 50 2022-0 No 1{capsu QD Vyvanse 50 MG MG 9-21 le_in_t MG 00:00: he_morn 00 ing} rOPINIRole rOPINIRole 2022-0 No 1{table rOPINIRole HCl 0.5 MG HCl 0.5 MG 9-21 t} HCl 0.5 MG 00:00: 00 Vyvanse 50 Vyvanse 50 2022-0 No 1{capsu QD Vyvanse 50 MG MG 9-21 le_in_t MG 00:00: he_morn 00 ing} rOPINIRole rOPINIRole No 1{table rOPINIRole HCl 0.5 MG HCl 0.5 MG 9-21 t} HCl 0.5 MG 00:00: 00 Trokendi XR 2021-0 Yes 400 mg = 2 Memoria 200 mg oral - cap, PO, l capsule, 14:54: Daily, # Rupal nn extended 00 180 cap, 1 release Refill(s), Pharmacy: [facility] #[id number], 167.64, cm, 12/20/21 9:45:00 CDT, Height, 77.955, kg, 12/20/21 9:45:00 CDT, Weight Trokendi XR 2021-0 Yes 400 mg = 2 Memoria 200 mg oral 12-20 cap, PO, l capsule, 14:54: Daily, # Rupal nn extended 00 180 cap, 1 release Refill(s), Pharmacy: [facility] #[id number], 167.64, cm, 12/20/21 9:45:00 CDT, Height, 77.955, [...] MG 00:00: he_morn 00 ing} Cheratussin Cheratussin No 5{ml} Cheratussi AC 100-10 AC 100-10 [...] MG/5ML 00:00: 100-10 00 MG/5ML Cheratussin Cheratussin No 5{ml} Cheratussi AC 100-10 AC 100-10 2-22 n AC MG/5ML MG/5ML 00:00: 100-10 00 MG/5ML Azithromyci Azithromyci 2- No QD Azithromyc n 250 MG n 250 MG 06-12 in 250 MG 00:00: 00:00 00 :00 bromphenira 2021-0 Yes [id number] 5mL Take 5 mL Univers mine-pseudo 2-19 by mouth 4 it y of ephedrine-D 00:00: (four[place] (BROMFED 00 times Medical DM) 2-30-10 daily as Bran ch mg/5 mL needed for syrup Congestion /Allergies . benzonatate Yes [id number] 200mg Take 2 Univers 100 mg 2-19 capsules ity of capsule 00:00: by mouth [place] 00 every 8 Medical (eight) Branch hours as needed for Cough. methylPREDN 2021-0 Yes [id number] Take by Univers ISolone 2-19 mouth ity of (MEDROL, 00:00: SEE-INSTRU Raj as JUANI,) 4 mg 00 CTIONS. Medica l tablets follow Branch package directions bromphenira 2021-0 Yes [id number] 5mL Take 5 mL Univers mine-pseudo 2-19 by mouth 4 it y of ephedrine-D 00:00: (four[place] M (BROMFED 00 times Medical DM) 2-30-10 daily as Bran ch mg/5 mL needed for syrup Congestion /Allergies . benzonatate 2021-0 Yes [id number] 200mg Take 2 Univers 100 mg 2-19 capsules ity of capsule 00:00: by mouth [place] 00 every 8 Medical (eight) Branch hours as needed for Cough. methylPREDN 2021-0 Yes [id number] Take by Univers ISolone 2-19 mouth ity [...] 00:00: 00:00 00 :00 bromphenira 2020-04 Yes [id number] 5mL Take 5 mL Univers mine-pseudo 05-16 by mouth 4 it y of ephedrine-D 00:00: (four[place] (BROMFED 00 times Medical DM) 2-30-10 daily as Bran ch mg/5 mL needed for syrup Congestion /Allergies or Cough. bromphenira 2020-04- No [id number] 5mL Take 5 mL Univers mine-pseudo 05-16 [...] (two) Medical times Branch daily. ELIQUIS 5 Yes Univers mg tablet 01-05 ity of 00:00: [place] 00 Medical Branch ELIQUIS 5 0 Yes Univers mg tablet 01-05 ity of 00:00: [place] [facility] ELIQUIS 5 0 Yes Univers mg tablet 01-05 ity of 00:00: [place] [facility] ELIQUIS 5 0 Yes Univers mg tablet 01-05 ity of 00:00: [place] 00 Medical Branch VYVANSE 50 Yes 50mg Take 50 mg U nivers mg capsule 9-13 by mouth ity o f 00:00: every [place] morning. Medical Branch VYVANSE 50 0 Yes 50mg Take 50 mg U nivers mg capsule 9-13 by mouth ity o f 00:00: every [place] morning. Medical Branch VYVANSE 50 0 Yes 50mg Take 50 mg U nivers mg capsule 9-13 by mouth ity o f 00:00: every [place] morning. Medical Branch VYVANSE 50 0 Yes 50mg Take 50 mg U nivers mg capsule 9-13 by mouth ity o f 00:00: every [place] morning. Medical Branch levothyroxi Yes TAKE 1 Univ ers ne 75 mcg 9-10 TABLET BY ity o f tablet 00:00: MOUTH [place] 00 EVERY DAY Medical IN THE Branch MORNING ON AN EMPTY STOMACH levothyroxi Yes TAKE 1 Univ ers ne 75 mcg 9-10 TABLET BY ity o f tablet 00:00: MOUTH [place] EVERY DAY Medical IN THE Branch MORNING ON AN EMPTY STOMACH levothyroxi Yes TAKE 1 Univ ers ne 75 mcg 9-10 TABLET BY ity o f tablet 00:00: MOUTH [place] EVERY DAY Medical IN THE Branch MORNING ON AN EMPTY STOMACH levothyroxi Yes TAKE 1 Univ ers ne 75 mcg 9-10 TABLET BY ity o f tablet 00:00: MOUTH [place] 00 EVERY DAY Medical IN THE [place] MORNING ON AN EMPTY STOMACH morpHINE No 4mg 4 mg, Slow Un pau injection 4 12-05 IV Push, ity of mg 02:30: 01:45 ONCE, 1 [place] 00 :00 dose, Mon Medical 12/04/20 at Branch 2130, STAT proMETHazin 2020- No 25mg 25 mg, IV Univers e 12-05 Piggyback, ity of (PHENERGAN) 02:30: 02:30 ONCE, 1 [place] 25 mg in 00 :00 dose, Mon Medica l NaCl 0.9% 12/04/[address] [facility] ch (NS) 50 mL 2130, 50 piggyback mL NaCl 0.9% 2020- No 500mL at [address] [place] [address] ers (NS) bolus 12-05 mL/hr, 500 it y of infusion 02:30: 04:34 mL, IV [place] 500 mL 00 :00 Piggyback, Medical ONCE, 1 [place] dose, [facility] 12/04/20 at 2130, STAT iopamidol 2020- No [id number] 120mL 120 mL, Univers (ISOVUE 12-05 Intravenou ity o f 370-500 mL) 02:02: 02:05 s, ONCE, 1 [place] injection 00 :00 dose, Mon Medic al 120 mL 12/04/20 at Branch 2115, Routine proMETHazin 2020- No [id number] 25mg Univers e 12-04 ity of (PHENERGAN) 01:00: 01:03 [place] injection 00 :00 Medical 25 mg [place] proMETHazin 0 2020- No [id number] 25mg 25 mg, Univers e 12-04 Intramuscu ity of (PHENERGAN) 01:00: 01:03 lar, ONCE, [place] injection 00 :00 1 dose, Medical 25 mg [facility] 12/03/20 at 2000, Routine proMETHazin 2020-0 2020- No [id number] 25mg Univers e 12-04 ity of (PHENERGAN) 01:00: 01:03 [place] injection 00 :00 Medical 25 mg [place] proMETHazin 0 2020- No [id number] 25mg 25 mg, Univers e 12-04 Intramuscu ity of (PHENERGAN) 01:00: 01:03 lar, ONCE, [place] injection 00 :00 1 dose, Medical 25 mg [facility] 12/03/20 at 2000, Routine Bacillus 2020-0 Yes [facility] Coagulans-I 10-27 [facility] 11:49: of (ALIGN 52 Medicin PREBIOTIC-P e ROBIOTIC OR) EpiPen EpiPen 0 No EpiPen 2-Juani 0.3 2-Juani 0.3 6-30 [...] 00:00: MG/0.3ML 00 EpiPen EpiPen 2021-0 No 2-Juani 0.3 2-Juani 0.3 6-30 MG/0.3ML MG/0.3ML 00:00: 00 EpiPen EpiPen 1-0 No EpiPen 2-Juani [...] 2020-0 No EpiPen 2-Juani 0.3 2-Juani 0.3 30 2-Juani 0.3 MG/0.3ML MG/0.3ML 00:00: MG/0.3ML 00 EpiPen EpiPen 2020-0 No EpiPen 2-Juani 0.3 2-Juani 0.3 30 2-Juani 0.3 MG/0.3ML MG/0.3ML 00:00: MG/0.3ML 00 EpiPen EpiPen 2020-0 No EpiPen 2-Juani 0.3 2-Juani 0.3 -30 2-Juani 0.3 MG/0.3ML MG/0.3ML 00:00: MG/0.3ML 00 EpiPen EpiPen 2020-0 No EpiPen 2-Juani 0.3 2-Juani 0.3 30 2-Juani 0.3 MG/0.3ML MG/0.3ML 00:00: MG/0.3ML 00 Levocetiriz Levocetiriz 2020-0 2021- No 1{table QD Levocetiri ine ine 10-18 t} zine Dihydrochlo Dihydrochlo 00:00: 00:00 Dihydrochl ride 5 MG ride 5 MG 00 :00 oride 5 MG Levocetiriz Levocetiriz 2020-0 2021- No 1{table QD Levocetiri ine ine 10-18 t} zine Dihydrochlo Dihydrochlo 00:00: 00:00 Dihydrochl ride 5 MG ride 5 MG 00 :00 oride 5 MG Levocetiriz Levocetiriz 2020-0 2021- No 1{table QD Levocetiri ine ine 10-18 t} zine Dihydrochlo Dihydrochlo 00:00: 00:00 Dihydrochl ride 5 MG ride 5 MG 00 :00 oride 5 MG Hydroxychlo 2020-0 Yes 200 mg = 1 Memoria roquine 10-12 tab, PO, l Sulfate 200 20:11: Daily, 0 He rmann MG Oral 00 Refill(s) Tablet hydroxychlo 2021-0 Yes 200 mg = 1 Memoria roquine 6-24 tab, PO, l sulfate 200 20:11: Daily, 0 He r[place] mg oral 00 Refill(s) tablet Hydroxychlo Yes 200 mg = 1 Memoria roquine 6-24 tab, PO, l Sulfate 200 20:11: Daily, 0 He rmann MG Oral 00 Refill(s) Tablet hydroxychlo Yes 200 mg = 1 Memoria roquine 6-24 tab, PO, l sulfate 200 20:11: Daily, 0 He rmann mg oral 00 Refill(s) tablet 24 HR Yes 400 mg = 2 Memori a topiramate 6-24 cap, PO, l 200 MG 20:06: Bedtime, # Rupal nn Extended 00 180 cap, 2 Release Refill(s), Capsule Pharmacy: [[facility] #[id number], 167.64, cm, 10/12/20 14:33:00 CDT, Height, 86.818, kg, 10/12/20 14:33:00 CDT, Weight 24 HR Yes 400 mg = 2 Memori a topiramate 6-24 cap, PO, l 200 MG 20:06: Bedtime, # Rupal nn Extended 00 180 cap, 2 Release Refill(s), Capsule Pharmacy: [[facility][id number], 167.64, cm, 10/12/20 14:33:00 CDT, Height, 86.818, [...] 6-24 CAPSULE BY l delayed 19:42: MOUTH [place] release 00 EVERY capsule MORNING mesalamine Yes [...] # 30 cap, 0 Refill(s) hydroxychlo Yes [id number] 200mg Take 1 [facility] roquine 5-28 Tablet by [place] (PLAQUINIL) 00:00: mouth two o f 200 MG 00 times Medicin tablet daily. e Bacillus Yes [facility] Coagulans-I 5-21 [place] nulin 10:19: of (ALIGN 56 Medicin PREBIOTIC-P [...] PO, l 200 MG 21:45: Daily, # [place] Extended 00 90 cap, 2 Release Refill(s), Capsule Pharmacy: [Tonja] [facility], 167.64, cm, 04/19/20 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, Height, 87.273, kg, 08/29/20 16:36:00 CDT, Weight 24 HR Yes 200 mg = 1 Memori a topiramate 5-11 cap, PO, l 200 MG 21:45: Daily, # [place] Extended 00 90 cap, 2 Release Refill(s), Capsule Pharmacy: [Isidrodi] [facility], 167.64, cm, 04/19/20 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, Height, 87.273, kg, 08/29/20 16:36:00 CDT, Weight apixaban 5 2020-0 Yes 5 mg, PO, Me moria MG Oral 5-11 Q12H, # 60 l Tablet 21:43: tab, 0 [place] [Eliquis] 00 Refill(s), Pharmacy: [facility], 167.64, cm, 04/19/20 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, Height, 87.273, kg, 08/29/20 16:36:00 CDT, Weight Eliquis 5 2020-0 Yes 5 mg, PO, Mem oria mg oral 5-11 Q12H, # 60 l tablet 21:43: tab, 0 [place] 00 Refill(s), Pharmacy: [facility], 167.64, cm, 04/19/20 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, Height, 87.273, kg, 08/29/20 16:36:00 CDT, Weight apixaban 5 2020-0 Yes 5 mg, PO, Me moria MG Oral 5-11 Q12H, # 60 l Tablet 21:43: tab, 0 [place] [Eliquis] 00 Refill(s), Pharmacy: [facility], 167.64, cm, 04/19/20 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, Height, 87.273, kg, 08/29/20 16:36:00 CDT, Weight Eliquis 5 2020-0 Yes 5 mg, PO, Mem oria mg oral 5-11 Q12H, # 60 l tablet 21:43: tab, 0 [place] 00 Refill(s), Pharmacy: [facility], 167.64, cm, 04/19/20 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, Height, 87.273, kg, 08/29/20 16:36:00 CDT, Weight levothyroxi 2020-0 Yes 50 Memori a ne 50 mcg 5-11 microgram l (0.05 mg) 21:41: = 1 tab, Herm zay oral tablet 00 PO, Daily, # 30 tab, 0 Refill(s) levothyroxi Yes 50 Memori a ne 50 mcg 5-11 microgram l (0.05 mg) 21:41: = 1 tab, Herm zay oral tablet 00 PO, Daily, # 30 tab, 0 Refill(s) linaCLOtide Yes [facility] (LINZESS) 4-30 [place] 145 MCG 00:00: of CAPS 00 Medicin e linaCLOtide Yes [facility] (LINZESS) 4-30 [place] 145 MCG 00:00: of CAPS 00 Medicin e Mesalamine Yes [facility] (PENTASA) 4-28 [place] 500 MG CPCR 00:00: of 00 Medicin e Mesalamine Yes [facility] ([place]ASA) 4-28 [place] 500 [facility] Medicin e ELIQUIS 5 0 Yes [facility] MG TABS 4-22 College 00:00: of 00 Medicin e ELIQUIS 5 0 Yes [facility] MG TABS 4-22 [place] 00:00: of 00 Medicin e Levothyroxi Levothyroxi No QD Levothyrox ne Sodium [...] MCG 00 Levothyroxi Levothyroxi 0 No QD ne Sodium ne Sodium 4-07 50 MCG 50 MCG 00:00: 00 Levothyroxi Levothyroxi 0 No QD Levothyrox [...] 50 MCG 00:00: 50 MCG 00 levothyroxi 2021-0 Yes TAKE 1 [facility] or ne 4-07 TABLET BY College (SYNTHROID) 00:00: MOUTH of 50 MCG 00 EVERY DAY Medicin tablet IN THE e MORNING ON AN EMPTY STOMACH levothyroxi 2021-0 Yes TAKE 1 Bayl or ne 4-07 TABLET BY [place] (SYNTHROID) 00:00: MOUTH of 50 MCG 00 [...] MG 3-30 le} 300 MG 00:00: 00 topiramate 2021-0 Yes 400mg 400 mg. Uni vers (TROKENDI 3-16 ity of XR) 100 mg 00:00: [address] topiramate 2021-0 Yes 400mg 400 mg. Uni vers (TROKENDI 3-16 ity of XR) 100 mg 00:00: [address] topiramate 2021-0 Yes 400mg 400 mg. Uni vers (TROKENDI 3-16 ity of XR) 100 mg 00:00: [address] topiramate 2021-0 Yes 400mg 400 mg. Uni vers (TROKENDI 3-16 ity of XR) 100 mg 00:00: [address] Branch TROKENDI XR 2021-0 Yes 200mg 200 mg. Ba ylor 100 MG CP24 16 [place] 00:00: Medicin e TROKENDI XR 2021-0 Yes 400mg 400 mg. Ba ylor 100 MG CP24 -16 [place] 00:00: 00 Medicin e famotidine 2021-0 Yes 40mg 40 mg. [facility] (PEPCID) 20 2-25 [facility] MG tablet 00:00: Medicin e famotidine 2021-0 Yes 40mg 40 mg. [facility] (PEPCID) 20 2-25 College MG tablet 00:00: Medicin e acetaminoph 2021-0 Yes 500mg Q6H Take 500 [...] mg 18:53: daily. [facility]osp[facility] tablet 53 l famotidine 2021-0 Yes 20mg QD Take 20 [...] 12:53: daily. Hospita tablet 53 l acetaminoph 1-0 [...] Hospita 50 MG 53 morning. 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 24 HR 2019-04 Yes 100 mg = 1 Memori a topiramate 2-30 cap, PO, l 100 MG 21:09: Bedtime, # Rupal 90 cap, 2 Release Refill(s), Capsule Pharmacy: [[facility]] [facility] #[id number], 167.64, cm, 04/19/20 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 l esomeprazol 2019-04 Yes Univer s e 40 mg 0-30 ity of capsule 00:00: [address] esomeprazol 2019-04 Yes Univer s e 40 mg 0-30 ity of capsule 00:00: [facility] esomeprazol 2019-04 Yes Univer s e 40 mg 0-30 ity of capsule 00:00: [facility] esomeprazol 2019-04 Yes Univer s e 40 mg 0-30 ity of capsule 00:00: [facility] esomeprazol 2019-04 Yes Arya e (NEXIUM) [...] for 30 days. metoclopram 2019-04- No 5mg [id number] Take 1 Methodi dung 0-28 - [id number] tablet (5 st (Reglan) 5 00:00: 05:59 3D mg total) H ospita MG tablet 00 :00 by mouth 3 l (three) times a day as needed (nausea, vomiting) for up to 5 days. metoclopram 2019-04- No 5mg [id number] Take 1 Methodi dung 0-28 11- [id number] tablet (5 st (Reglan) 5 00:00: 05:59 [...] it last week - unknown reason); (per [place] [facility], last filled 12/18/19, quantity: 30, day supply: 30) lisdexamfet 2019-04 2020- No 40mg QD Take 40 mg Methodi amine 0-26 10-[address] (VYVANSE) 18:16: 00:00 daily. Hospi ta 40 MG 29 :00 (per l capsule patient, stopped taking it last week - unknown reason); (per [place] [facility], last filled [...] ONCE A e DAY. Reglan 10 Reglan 10 2019-04 No 1{table [...] MG MG 00:00: 40 MG 00 Reglan Reglan 2019-04 No 1{table TID Reglan 10 MG MG 0-21 t_befor MG 00:00: e_meals 00 } Pantoprazol Pantoprazol 2019-04 No 1{table QD e Sodium 40 e Sodium 40 0-21 t} MG MG 00:00: 00 Reglan 10 Reglan 2019-04 No 1{table TID MG MG 0-21 [...] 0-21 t_befor MG 00:00: e_meals 00 } metoclopram 2019-04 Yes [facility] dung 0-21 College (REGLAN) 10 [...] 00 HOURS Medicin inhaler e metoclopram 2019-04- No [facility] r dung 0-21 07-09 College (REGLAN) 10 [...] of it) OXCARBAZEPI 2019-04- No (Patient M ethtanvi NE ORAL 0-20 10-[address] 23:40: [...] - per patient) metoclopram 2019-04- No 5mg [id number] Take 1 Methodi dung 0-20 10-28 [id number] tablet (5 st (Reglan) 5 00:00: 00:00 3D mg total) H ospita MG tablet 00 :00 by mouth 3 l (three) times a day as needed (nausea, vomiting) for up to 5 days. metoclopram 2019-04- No 5mg [id number] Take 1 Methodi dung 0-20 10-28 [id number] tablet (5 st (Reglan) 5 00:00: 00:00 3D mg total) H ospita MG tablet 00 :00 by mouth 3 l (three) times a day as needed (nausea, vomiting) for up to 5 days. Vyvanse Vyvanse 2020-0 Yes Na Savage 1 capsule Common 8-25 in the Spirit 00:00: morning - [facility] 00 [facility] Kenalog Kenalog 2020-0 No 40mg Common (Triamcinol (Triamcinol 2-19 S pirit one) one) 00:00: - [facility] 00 [facility] Kenalog Kenalog 2020-0 No 40mg Common (Triamcinol (Triamcinol 2-19 S pirit one) one) 00:00: - [facility] 00 [facility] Kenalog Kenalog 2020-0 No 40mg Common (Triamcinol (Triamcinol 2-19 S pirit one) one) 00:00: - [facility] 00 [facility] Kenalog Kenalog 2020-0 No 40mg Common (Triamcinol (Triamcinol 2-19 S pirit one) one) 00:00: - [facility] 00 [facility] Kenalog Kenalog 2020-0 No 40mg Common (Triamcinol (Triamcinol 2-19 S pirit one) one) 00:00: - [facility] 00 [facility] Kenalog Kenalog 2020-0 No 40mg Common (Triamcinol (Triamcinol 2-19 S pirit one) one) 00:00: - [facility] 00 [facility] Kenalog Kenalog 2020-0 No 40mg Common (Triamcinol (Triamcinol 2-19 S pirit one) one) 00:00: - [facility] 00 [facility] Kenalog Kenalog 2020-0 No 40mg Common (Triamcinol (Triamcinol 2-19 S pirit one) one) 00:00: - [facility] 00 [facility] Kenalog Kenalog 2020-0 No 40mg Common (Triamcinol (Triamcinol 2-19 S pirit one) one) 00:00: - [facility] 00 [facility] Kenalog Kenalog 2020-0 No 40mg Common (Triamcinol (Triamcinol 2-19 S pirit one) one) 00:00: - [facility] 00 [facility] Kenalog Kenalog 2020-0 No 40mg Common (Triamcinol (Triamcinol 2-19 S pirit one) one) 00:00: - [facility] 00 [facility] Kenalog Kenalog 2020-0 No 40mg Common (Triamcinol (Triamcinol 2-19 S pirit one) one) 00:00: - [facility] 00 [facility] Kenalog Kenalog 2020-0 No 40mg Common (Triamcinol (Triamcinol 2-19 S pirit one) one) 00:00: - [facility] 00 [facility] oxcarbazepi 2019-0 Yes 300 mg = 1 Memoria ne 300 MG 9-06 tab, PO, l Oral Tablet 16:04: BID, # 180 [place] [Trileptal] 19 tab, 3 Refill(s), [id number] oxcarbazepi 2018-0 Yes 300 mg = 1 Memoria ne 300 MG 9-06 tab, PO, l Oral Tablet 16:04: BID, # 180 [place] [Trileptal] 19 tab, 3 Refill(s), [id number] HR Yes 100 mg = 1 Memori a topiramate 9-06 cap, PO, l 100 MG 16:04: Daily, # Ricardo Extended 10 90 cap, 3 Release Refill(s), Capsule [id number] Yes 100 mg = 1 Memori a topiramate 9-06 cap, PO, l 100 MG 16:04: Daily, # [place] Extended 10 90 cap, 3 Release Refill(s), Capsule [facility]: [id number] HR No 100 mg = 1 Memori a topiramate 9-04 cap, PO, l 100 MG 18:31: Daily, X [place] Extended 30 day, # Release 30 cap, 3 Capsule Refill(s), [Trokendi] Pharmacy: [facility] 24 HR No 100 mg = 1 Memori a topiramate 9-04 cap, PO, l 100 MG 18:31: Daily, X [place] Extended 05 30 day, # Release 30 cap, 3 Capsule Refill(s), [Trokendi] Pharmacy: [facility] oxcarbazepi No 300 mg = 1 Memoria ne 300 MG 9-04 tab, PO, l Oral Tablet 18:31: BID, X 30 H ermann [Trileptal] 02 day, # 60 tab, 3 Refill(s), Pharmacy: [facility] oxcarbazepi No 300 mg = 1 Memoria ne 300 MG 9-04 tab, PO, l Oral Tablet 18:31: BID, X 30 H ermann [Trileptal] 02 day, # 60 tab, 3 Refill(s), Pharmacy: [facility] lisdexamfet Yes 30 mg = 1 [...] 30 Rupal nn 00 cap, 0 Refill(s) omeprazole Yes 20 mg = 1 Me moria 20 mg oral 7-17 cap, PO, l delayed 00:27: Daily, # [place] n release 00 30 cap, 2 capsule Refill(s), Pharmacy: [facility] omeprazole Yes 20 mg = 1 Me moria 20 mg oral 7-17 cap, PO, l delayed 00:27: Daily, # [place] n release 00 30 cap, 2 capsule [facility] mg = 1 Memoria ne 300 MG 7-03 tab, PO, l Oral Tablet 18:01: BID, # 60 H ermann [Trileptal] 00 tab, 2 Refill(s), Pharmacy: [facility] oxcarbazepi Yes 300 mg = 1 Memoria ne 300 MG 7-03 tab, PO, l Oral Tablet 18:01: BID, # 60 H ermann [Trileptal] 00 tab, 2 Refill(s), Pharmacy: [facility] Yes 100 mg = 1 Memori a topiramate 6-28 cap, PO, l 100 MG 14:50: Daily, # [place] Extended 00 30 cap, 3 Release Refill(s), Capsule Pharmacy: [[facility]] [facility] Yes 100 mg = 1 Memori a topiramate 6-28 cap, PO, l 100 MG 14:50: Daily, # [place] Extended 00 30 cap, 3 Release Refill(s), Capsule Pharmacy: [[facility]] [facility] topiramate Yes 25 mg = 1 Me moria 25 MG Oral 6-14 tab, PO, l Tablet 23:33: BID, # 60 [place] n [Topamax] 00 tab, 2 Refill(s), Pharmacy: [facility] topiramate Yes 25 mg = 1 Me moria 25 MG Oral 6-14 tab, PO, l Tablet 23:33: BID, # 60 Murray n [Topamax] 00 tab, 2 Refill(s), Pharmacy: [facility] Phenytoin Yes 200 mg = 2 Me moria sodium 100 6-13 cap, PO, l MG Extended 13:57: BID, # 120 Ricardo Release 00 cap, 3 Capsule Refill(s), [Dilantin] Pharmacy: [facility] Phenytoin Yes 200 mg = 2 Me moria sodium 100 6-13 cap, PO, l MG Extended 13:57: BID, # 120 [place] Release 00 cap, 3 Capsule Refill(s), [Dilantin] Pharmacy: [facility] Alprazolam Yes 0.5 mg = 1 M emoria 0.5 MG Oral 6-13 tab, PO, l Tablet 13:28: TID, 0 [place] [Xanax] 00 Refill(s) Zyrtec [id number] Yes Daily, 0 Memoria 6-13 Refill(s) l 13:28: [place] 00 Alprazolam Yes 0.5 mg = 1 M emoria 0.5 MG Oral 6-13 tab, PO, l Tablet 13:28: TID, 0 [place] [Xanax] 00 Refill(s) Zyrtec 0 Yes Daily, [...] 1-15 by mouth. ity of tablet 00:00: [address] Yes 10mg Take 10 mg Univers 10 mg 1-15 by mouth. ity of tablet 00:00: [address] [place] Yes 10mg Take 10 mg Univers 10 mg 1-15 by mouth. ity of tablet 00:00: [address] Yes 10mg Take 10 mg Univers 10 mg 1-15 by mouth. ity of tablet 00:00: [address] 40 Yes 1{tbl} Take 1 Uni vers mg capsule 9-19 tablet by ity of 00:00: mouth 00 daily. MD Taryn mitchell [facility] Yes 1{tbl} Take 1 Uni vers mg capsule 9-19 tablet by ity of 00:00: mouth 00 daily. [facility] Take 1 Uni vers mg capsule 9-19 tablet by ity of 00:00: mouth 00 daily. MD Taryn [facility] VYVANSE 40 2017-0 Yes 1{tbl} Take 1 Uni vers mg capsule 9-19 tablet by ity of 00:00: mouth 00 daily. MD Taryn mitchell [facility] Center Flonase 50 Flonase 50 No 2{spray [...] } Loestrin Loestrin No 1{table QD Loestrin 1.5 (21) 1.530 (21) t} 1.5 1.5-30 1.5-30 (21) MG-MCG MG-MCG 1.5-30 MG-MCG [...] mcg Loestrin Loestrin No 1{table QD Loestrin 1.5 (21) 1.530 (21) t} 1.5 1.5-30 1.5-30 (21) MG-MCG MG-MCG 1.5-30 MG-MCG [...] 1{table QD Singulair 10 MG 10 MG t_in_ 10 MG e_eveni ng} Esomeprazol Esomeprazol No [...] Loestrin Loestrin No 1{table QD 1.530 (21) 1.5/30 (21) t} 1.5-30 1.5-30 MG-MCG MG-MCG Dicyclomine [...] ing} Loestrin Loestrin No 1{table QD Loestrin 1.5/30 [...] 1{table QD Singulair 10 MG 10 MG t_in_ 10 MG e_eveni ng} Loestrin Loestrin No [...] 300 MG 300 MG t} 300 MG Flonase 50 Flonase 50 No 2{spray [...] 300 MG 300 MG t} 300 MG Flonase 50 Flonase 50 No 2{spray [...] 300 MG 300 MG t} 300 MG Azelastine Azelastine No 1{drop_ Azelastine HCl 0.05 % HCl 0.05 % into_af HCl 0.05 % fected_ eye} Linzess 145 Linzess 145 No Linzess mcg mcg 145 mcg Mupirocin 2 Mupirocin 2 No TID Mupirocin % % 2 % Hydroxychlo Hydroxychlo No Hydroxychl roquine roquine oroquine Sulfate 200 Sulfate 200 Sulfate MG MG 200 MG Bactrim DS Bactrim DS No 1{table BID Bactrim DS 800-160 MG 800-160 MG t} 800-160 MG Esomeprazol Esomeprazol No 1{capsu QD Esomeprazo e Magnesium e Magnesium le} le 40 MG 40 MG Magnesium 40 MG Eliquis 5 Eliquis 5 No Eliquis 5 mg 5 mg mg 5 mg mg 5 mg Augmentin Augmentin No 1{table BID Augmentin 500-125 MG 500-125 MG t} 500-125 MG Trokendi XR Trokendi XR No Trokendi 100mg 100mg XR 100mg Hydroxychlo Hydroxychlo No Hydroxychl roquine roquine oroquine Sulfate 200 Sulfate 200 Sulfate MG MG 200 MG Levothyroxi Levothyroxi No QD Levothyrox ne Sodium ne Sodium ine Sodium 75 MCG 75 MCG 75 MCG Xanax 0.5 Xanax 0.5 No 1{table Xanax [...] 10 MG t_in_th 10 MG e_eveni ng} Trileptal Trileptal No 1{table BID Trileptal 300 MG 300 MG t} 300 MG Azelastine Azelastine No 1{drop_ Azelastine HCl 0.05 % HCl 0.05 % into_af HCl 0.05 % fected_ eye} Linzess 145 Linzess 145 No Linzess mcg mcg 145 mcg Mupirocin 2 Mupirocin 2 No TID Mupirocin % % 2 % Hydroxychlo Hydroxychlo No Hydroxychl roquine roquine oroquine Sulfate 200 Sulfate 200 Sulfate MG MG 200 MG Bactrim DS Bactrim DS No 1{table BID Bactrim DS 800-160 MG 800-160 MG t} 800-160 MG Esomeprazol Esomeprazol No 1{capsu QD Esomeprazo e Magnesium e Magnesium le} le 40 MG 40 MG Magnesium 40 MG Eliquis 5 Eliquis 5 No Eliquis 5 mg 5 mg mg 5 mg mg 5 mg Augmentin Augmentin No 1{table BID Augmentin 500-125 MG 500-125 MG t} 500-125 MG Trokendi XR Trokendi XR No Trokendi 100mg 100mg XR 100mg Hydroxychlo Hydroxychlo No Hydroxychl roquine roquine oroquine Sulfate 200 Sulfate 200 Sulfate MG MG 200 MG Levothyroxi Levothyroxi No QD Levothyrox ne Sodium ne Sodium ine Sodium 75 MCG 75 MCG 75 MCG Xanax 0.5 Xanax 0.5 No 1{table Xanax [...] 10 MG t_in_th 10 MG e_eveni ng} Trileptal Trileptal No 1{table BID Trileptal 300 MG 300 MG t} 300 MG Hydroxychlo Hydroxychlo No Hydroxychl roquine roquine oroquine Sulfate 200 Sulfate 200 Sulfate MG MG 200 MG Bactrim DS Bactrim DS No 1{table BID Bactrim DS 800-160 MG 800-160 MG t} 800-160 MG Eliquis 5 Eliquis 5 No Eliquis [...] Base) Base) (90 Base) MCG/ACT MCG/ACT MCG/ACT Esomeprazol Esomeprazol No 1{capsu QD Esomeprazo e Magnesium e Magnesium le} le 40 MG 40 MG Magnesium 40 MG Sucralfate Sucralfate No 1{table Sucralfate 1 GM 1 GM t_on_an 1 GM _empty_ stomach } Xanax 0.5 Xanax 0.5 No 1{table Xanax [...] 50 MCG/ACT MCG/ACT _in_eac MCG/ACT h_nostr il} Azelastine Azelastine No Azelastine HCl 0.05 % HCl 0.05 % HCl 0.05 % Singulair Singulair No 1{table QD Singulair 10 MG 10 MG t_in_th 10 MG e_eveni ng} Loestrin Loestrin No 1{table QD Loestrin 1.5/30 (21) 1.5/30 (21) t} 1.5/30 1.5-30 1.5-30 (21) MG-MCG MG-MCG 1.5-30 MG-MCG Trileptal Trileptal No 1{table BID Trileptal 300 MG 300 MG t} 300 MG No known No Univers medications [facility] No known No Univers medications [facility] Immunizations Ordered Filled Immunization Date Status Comments [facility] e Immunization Name Name Fozia 2020-06-10 Completed [facility] 00:00:00 [facility] Fozia 2020-06-10 Completed [facility] 00:00:00 [facility] Fozia 2020-06-10 Completed [facility] 00:00:00 [facility] Fozia 2020-06-10 Completed [facility] 00:00:00 [facility] Fozia 2020-06-10 Completed [facility] 00:00:00 [facility] Fozia 2020-06-10 Completed [facility] 00:00:00 [facility] FLUCELVAX [...] st 00:00:00 [facility] Kenalog Kenalog 2019-06-09 Completed [facility] - (Triamcinolone) (Triamcinolone) 09:57:00 [facility] Influenza Split Completed Universit y of 00:00:[address] [place] [facility] Influenza Split Completed Universit y of 00:00:[address] [place] [facility] Influenza Split Completed Universit y of 00:00:00 [place] [facility] Influenza Split Completed Universit y of 00:00:[address] [place] [facility] Vital Signs Vital Name Observation Time Observation Value Comments Source height 2022-01-09 11:20:00 66 [in_i] [facility] weight 2022-01-09 11:20:00 167 [lb_av] [facility] bmi 2022-01-09 11:20:00 26.95 kg/m2 [facility] height 2021-12-19 12:20:00 66 [in_i] [facility] weight 2021-12-19 12:20:00 164 [lb_av] [facility] bmi 2021-12-19 12:20:00 26.47 kg/m2 [facility] Systolic blood 2021-06-09 16:44:00 122 mm[Hg] Univer sity of [facility] Diastolic blood 2021-06-09 16:44:00 83 mm[Hg] Unive rsity of [facility] Heart rate 2021-06-09 16:44:00 82 /min [facility] [place] [facility] Body temperature 2021-06-09 16:44:00 36.83 Staci Univ [facility] Respiratory rate 2021-06-09 16:44:00 18 /min Univ ersity of [facility] Body height 2021-06-09 16:44:00 167.6 cm [facility] Body weight 2021-06-09 16:44:00 78.608 kg [facility] BMI 2021-06-09 16:44:00 27.97 kg/m2 [facility]i ty [facility] Oxygen saturation in 2021-06-09 16:44:00 98 /min University of Arterial blood by [place] [facility] Pulse oximetry Branch height 2021-05-16 11:00:00 66.5 [in_i] [facility] weight 2021-05-16 11:00:00 169 [lb_av] [facility] bmi 2021-05-16 11:00:00 26.87 kg/m2 [facility] Systolic blood 2021-03-16 15:58:00 114 mm[Hg] Univer sity of pressure [facility] Diastolic blood 2021-03-16 15:58:00 75 mm[Hg] Unive rsity of [facility] Heart rate 2021-03-16 15:58:00 76 /min Universi ty of [facility] Body temperature 2021-03-16 15:58:00 36.78 Stc[facility] ersity of [facility] Respiratory rate 2021-03-16 15:58:00 17 /min Univ ersity of [facility] Body height 2021-03-16 15:58:00 167.6 cm [facility] Body weight 2021-03-16 15:58:00 78.926 kg [facility]i [facility] BMI 2021-03-16 15:58:00 28.08 kg/m2 [facility] Oxygen saturation in 2021-03-16 15:58:00 96 /min University of Arterial blood by [place] [facility] Pulse oximetry Branch Systolic blood 2021-02-20 14:14:00 120 mm[Hg] Univer sity of pressure [facility] Diastolic blood 2021-02-20 14:14:00 79 mm[Hg] Unive rsity of pressure [facility] Heart rate 2021-02-20 14:14:00 74 /min [facility]i ty [facility] Body temperature 2021-02-20 14:14:00 36.78 Staci Univ ersity of [facility] Respiratory rate 2021-02-20 14:14:00 16 /min Univ ersity of [facility] Body weight 2021-02-20 14:14:00 79.833 kg [facility] BMI 2021-02-20 14:14:00 30.21 kg/m2 [facility] Oxygen saturation in 2021-02-20 14:14:00 99 /min University of Arterial blood by [facility] Pulse oximetry Branch height 2021-01-24 10:00:00 66.5 [in_i] [facility] weight 2021-01-24 10:00:00 172 [lb_av] [facility] bmi 2021-01-24 10:00:00 27.34 kg/m2 [facility] Systolic blood 2020-12-05 03:35:00 121 mm[Hg] Univer sity of pressure [facility] Diastolic blood 2020-12-05 03:35:00 83 mm[Hg] Unive rsity of pressure [facility] Heart rate 2020-12-05 03:35:00 79 /min Universi ty [facility] Oxygen saturation in 2020-12-05 03:35:00 100 /min University of Arterial blood by [facility] Pulse oximetry [place] Body temperature 2020-12-05 01:16:00 37.11 Staci Univ ersity of [facility] Respiratory rate 2020-12-05 01:16:00 18 /min Univ ersity of [facility] Body height 2020-12-05 01:16:00 167.6 cm [facility] Body weight 2020-12-05 01:16:00 81.647 kg [facility] BMI 2020-12-05 01:16:00 29.05 kg/m2 [facility] ty [facility] Systolic blood 2020-12-04 00:19:00 114 mm[Hg] Univer sity of pressure [facility] Diastolic blood 2020-12-04 00:19:00 79 mm[Hg] Unive rsity of pressure [facility] Heart rate 2020-12-04 00:19:00 92 /min [facility]i [facility] Body temperature 2020-12-04 00:19:00 37.17 Staci Univ ersity of [facility] Respiratory rate 2020-12-04 00:19:00 18 /min Univ ersity of [facility] Body height 2020-12-04 00:19:00 167.6 cm [facility]i [facility] Body weight 2020-12-04 00:19:00 81.647 kg [facility] BMI 2020-12-04 00:19:00 29.05 kg/m2 [facility] Oxygen saturation in 2020-12-04 00:19:00 99 /min University Arterial blood by [facility] Pulse oximetry Branch Systolic blood 2020-10-27 16:50:00 125 mm[Hg] [facility] pressure Medicine Diastolic blood 2020-10-27 16:50:00 85 mm[Hg] [facility] Medicine Heart rate 2020-10-27 16:50:00 96 /min [facility] Respiratory rate 2020-10-27 16:50:00 16 /min [facility] Body height 2020-10-27 16:50:00 167.6 cm [facility] Body weight 2020-10-27 16:50:00 86.637 kg [facility] BMI 2020-10-27 16:50:00 30.83 kg/m2 [facility] Oxygen saturation in 2020-10-27 16:50:00 100 /min [facility] Arterial blood by [facility] Pulse oximetry Systolic blood 2020-10-27 16:50:00 125 mm[Hg] [facility] Medicine Diastolic blood 2020-10-27 16:50:00 85 mm[Hg] [facility] Medicine Heart rate 2020-10-27 16:50:00 96 /min [facility] [facility] Res[facility] rate 2020-10-27 16:50:00 16 /min [facility] Body height 2020-10-27 16:50:00 167.6 cm [facility] ol[facility] of [facility] Body weight 2020-10-27 16:50:00 86.637 kg [facility] ollege of Medicine BMI 2020-10-27 16:50:00 30.83 kg/m2 [facility] Oxygen saturation in 2020-10-27 16:50:00 100 /min [facility] Arterial blood by Medicine Pulse oximetry Systolic blood 2020-09-08 15:15:00 118 mm[Hg] [facility] pressure Medicine Diastolic blood 2020-09-08 15:15:00 79 mm[Hg] [facility] Medicine Heart rate 2020-09-08 15:15:00 84 /min [facility] of Medicine Respiratory rate 2020-09-08 15:15:00 16 /min [facility] Body height 2020-09-08 15:15:00 167.6 cm [facility] Body weight 2020-09-08 15:15:00 88.179 kg [facility] of Medicine BMI 2020-09-08 15:15:00 31.38 kg/m2 [facility] Oxygen saturation in 2020-09-08 15:15:00 99 /min [facility] Arterial blood by Medicine Pulse oximetry Systolic blood 2020-09-08 15:15:00 118 mm[Hg] [facility] Medicine Diastolic blood 2020-09-08 15:15:00 79 mm[Hg] [facility] Medicine Heart rate 2020-09-08 15:15:00 84 /min [facility] of Medicine Respiratory rate 2020-09-08 15:15:00 16 /min [facility] Body height 2020-09-08 15:15:00 167.6 cm [facility] of Medicine Body weight 2020-09-08 15:15:00 88.179 kg [facility] of Medicine BMI 2020-09-08 15:15:00 31.38 kg/m2 [facility] of Medicine Oxygen saturation in 2020-09-08 15:15:00 99 /min [facility] Arterial blood by Medicine Pulse oximetry Systolic (mm Hg) 2022-04-16 19:52:00 Unruly [facility] [place] Diastolic (mm Hg) 2022-04-16 19:52:00 Mem [facility] Heart Rate 2022-04-16 19:52:00 [facility] [place] Height 2022-04-16 19:52:00 5 [ft_i] [facility] [place] Weight 2022-04-16 19:52:00 [facility] BMI Calculated 2022-04-16 19:52:00 Memori al [place] Systolic (mm Hg) 2022-02-01 14:28:00 Unruly [facility] [place] Diastolic (mm Hg) 2022-02-01 14:28:00 Mem o[facility] [place] Heart Rate 2022-02-01 14:28:00 [facility] [place] Height 2022-02-01 14:28:00 5 [ft_i] [facility] [place] Weight 2022-02-01 14:28:00 [facility] [place] BMI Calculated 2022-02-01 14:28:00 Mem[facility] [place] Systolic (mm Hg) 2021-12-20 14:38:00 Unruly rial [place] Diastolic (mm Hg) 2021-12-20 14:38:00 Mem o[facility] [place] Heart Rate 2021-12-20 14:38:00 [facility] [place] Respitory Rate 2021-12-20 14:38:00 [facility] Height 2021-12-20 14:38:00 167.64 cm [facility] Weight 2021-12-20 14:38:00 [facility] [place] BMI Calculated 2021-12-20 14:38:00 [facility] [place] Height 2020-10-12 19:27:00 167.64 cm [facility] [place] Weight 2020-10-12 19:27:00 [facility] BMI Calculated 2020-10-12 19:27:00 [facility] [place] Systolic (mm Hg) 2020-10-12 19:27:00 Unruly rial [place] Diastolic (mm Hg) 2020-10-12 19:27:00 Mem [facility] [place] Heart Rate 2020-10-12 19:27:00 [facility] Respitory Rate 2020-10-12 19:27:00 [facility] [place] Weight 2020-08-29 21:36:00 [facility] Systolic blood 2020-06-10 20:17:19 128 mm[Hg] [facility] pressure Diastolic blood 2020-06-10 20:17:19 68 mm[Hg] [facility] pressure Heart rate 2020-06-10 20:17:19 88 /min [facility] Body temperature 2020-06-10 20:17:19 36.11 Staci [facility] Respiratory rate 2020-06-10 20:17:19 16 /min [facility] Oxygen saturation in 2020-06-10 20:17:19 98 /min [facility] Arterial blood by Pulse oximetry Body height 2020-06-10 18:48:00 167.6 cm [facility] Body weight 2020-06-10 18:48:00 94.802 kg [facility] BMI 2020-06-10 18:48:00 33.73 kg/m2 [facility] Systolic (mm Hg) 2020-04-19 20:08:00 [facility] [place] Diastolic (mm Hg) 2020-04-19 20:08:00 [facility] [place] Heart Rate 2020-04-19 20:08:00 [facility] [place] Respitory Rate 2020-04-19 20:08:00 [facility] [place] Height 2020-04-19 20:08:00 167.64 cm [facility] [place] Weight 2020-04-19 20:08:00 [facility] [place] BMI Calculated 2020-04-19 20:08:00 [facility] [place] Systolic (mm Hg) 2020-03-29 20:19:00 Unruly [facility] [place] Diastolic (mm Hg) 2020-03-29 20:19:00 Mem o[facility] [place] Heart Rate 2020-03-29 20:19:00 [facility] [place] Respitory Rate 2020-03-29 20:19:00 [facility] [place] Height 2020-03-29 20:19:00 167.64 cm [facility] Weight 2020-03-29 20:19:00 [facility] [place] BMI Calculated 2020-03-29 20:19:00 [facility] [place] Systolic (mm Hg) 2020-02-29 17:31:00 Unruly rial [place] Diastolic (mm Hg) 2020-02-29 17:31:00 [facility] [place] Heart Rate 2020-02-29 17:31:00 [facility] [place] Respitory Rate 2020-02-29 17:31:00 [facility] [place] Height 2020-02-29 17:31:00 167.64 cm [facility] [place] Weight 2020-02-29 17:31:00 [facility] [place] BMI Calculated 2020-02-29 17:31:00 [facility] [place] Systolic (mm Hg) 2018-12-23 18:03:00 Unruly [facility] [place] Diastolic (mm Hg) 2018-12-23 18:03:00 Mem [facility] [place] Heart Rate 2018-12-23 18:03:00 [facility] [place] Respitory Rate 2018-12-23 18:03:00 [facility] [place] Height 2018-12-23 18:03:00 167.64 cm [facility] [place] Weight 2018-12-23 18:03:00 [facility] BMI Calculated 2018-12-23 18:03:00 [facility] [place] BMI Calculated 2018-11-27 15:59:00 [facility] [place] Weight 2018-11-27 15:59:00 [facility] [place] Height 2018-11-27 15:59:00 167.64 cm [facility] [place] Heart Rate 2018-11-27 15:59:00 [facility] Respitory Rate 2018-11-27 15:59:00 [facility] [place] Systolic (mm Hg) 2018-11-27 15:59:00 Unruly [facility] [place] Diastolic (mm Hg) 2018-11-27 15:59:00 Mem [facility] [place] BMI Calculated 2018-10-16 14:19:00 [facility] [place] Weight 2018-10-16 14:19:00 [facility] [place] Height 2018-10-16 14:19:00 167.64 cm [facility] [place] Heart Rate 2018-10-16 14:19:00 [facility] [place] Respitory Rate 2018-10-16 14:19:00 [facility] [place] Systolic (mm Hg) 2018-10-16 14:19:00 Unruly [facility] [place] Diastolic (mm Hg) 2018-10-16 14:19:00 Mem [facility]rial [place] BMI Calculated 2018-10-01 13:18:00 [facility] [place] Weight 2018-10-01 13:18:00 [facility] [place] Height 2018-10-01 13:18:00 167.64 cm [facility] [place] Respitory Rate 2018-10-01 13:18:00 Avery hdz [place] Heart Rate 2018-10-01 13:18:00 [facility] [place] Systolic (mm Hg) 2018-10-01 13:18:00 Unruly vang [place] Diastolic (mm Hg) 2018-10-01 13:18:00 Jc blackman [place] Procedures Procedure Date / Time Performing Clinician Source Performed POCT MOLECULAR FLU 2021-06-09 17:02:00 Maddy Simms [facility] POCT MOLECULAR STREP 2021-06-09 16:56:00 [facility] TYPE AND SCREEN 2021-03-30 17:04:00 Jori Long [facility] COMPLETE BLOOD COUNT W/ 2021-03-30 17:04:00 Jori Long [facility] DIFFERENTIAL [facility] [place] TOTAL PROTEIN 2021-03-30 17:04:00 Jori Long [facility] ALBUMIN LEVEL 2021-03-30 17:04:00 Jori Long [facility] CALCIUM LEVEL TOTAL 2021-03-30 17:04:00 Jori Long [facility] PHOSPHORUS LEVEL 2021-03-30 17:04:00 Jori Long [facility] GLUCOSE, RANDOM 2021-03-30 17:04:00 Jori Long [facility] BLOOD UREA NITROGEN 2021-03-30 17:04:00 Jori Long [facility] SERUM CREATININE 2021-03-30 17:04:00 Jori Long [facility] URIC ACID 2021-03-30 17:04:00 Jori Long [facility] FRACTIONATED BILIRUBIN 2021-03-30 17:04:00 Jori Long [facility] ALKALINE PHOSPHATASE 2021-03-30 17:04:00 Jori Long [facility] LACTATE DEHYDROGENASE 2021-03-30 17:04:00 Jori Long [facility] ALANINE AMINOTRANSFERASE 2021-03-30 17:04:00 Jori Long [facility] ELECTROLYTE PANEL 2021-03-30 17:04:00 Jori Long [facility] MAGNESIUM LEVEL 2021-03-30 17:04:00 Jori Long [facility] HP T(15;17) PML-LEN 2021-03-30 17:04:00 Jori Long [facility] QUANTITATIVE PCR [facility] cer COLLECTION, BLOOD Center ABORH 2021-03-30 17:04:00 Jori Long [facility] ANTIBODY SCREEN 2021-03-30 17:04:00 Jori Long [facility] Results CBC 2021-03-30 17:04:00 Jori Long [facility] MANUAL DIFFERENTIAL 2021-03-30 17:04:00 Jori Long [facility] SERUM CREATININE 2021-03-30 17:04:00 Jori Long [facility] .GLOMERULAR FILTRATION 2021-03-30 17:04:00 Jori Long [facility] HP MD T(15;17) PML-LEN 2021-03-30 17:04:00 Jori Long [facility] QUANTITATIVE PCR [facility] cer INTERPRETATION AND REPORT Center CLOT EXPIRATION DATE 2021-03-30 17:04:[address] [facility] TMP INTERPRETATION 2021-03-30 17:04:[address] [facility] ANTIBODY SCREEN NEGATIVE MD Mendez g[facility] POCT GRP A STREP 2021-03-16 16:11:[address] [facility] (MOLECULAR) Medical Branch XR CHEST 1 VW 2020-12-05 02:15:29 Truong Norman Beulah o [facility] CT ABDOMEN PELVIS W 2020-12-05 02:09:58 Truong Norman [facility] CONTRAST [facility] POCT TEST 2020-12-05 01:31:00 Truong Norman [facility] LIPASE 2020-12-05 01:29:00 [facility] 2020-12-05 01:29:00 Ester [facility] COMP. METABOLIC PANEL 2020-12-05 01:29:00 Truong Norman [facility] ([id number]) [facility] CBC WITH DIFF 2020-12-05 01:29:00 Ester [facility] URINALYSIS 2020-12-05 01:29:00 Ester [facility] NOTICE OF PRIVACY 2020-12-05 01:06:38 Doctor Unassigned, No [facility] PRACTICES Name Medical Branch CONSENT/REFUSAL FOR 2020-12-05 01:05:01 Doctor Unassigned, No [facility] DIAGNOSIS AND TREATMENT Name [facility] POCT GRP A STREP 2020-12-04 00:42:00 Tessa Mendoza [facility] (MOLECULAR) [facility] MRI THORACIC SPINE W 2020-06-06 22:01:00 Caleb Kent [facility] CONTRAST MRI CERVICAL SPINE W 2020-06-06 22:01:00 Caleb Kent [facility] CONTRAST MRI BRAIN W WO CONTRAST 2020-06-06 22:00:00 Caleb Kent [facility] C-REACTIVE PROTEIN 2020-06-06 18:12:00 [facility] INTERLEUKIN 6 2020-06-06 18:12:00 Jen Tsai [facility] FERRITIN LEVEL 2020-06-06 18:12:00 Jen Tsai [facility] D-DIMER 2020-06-06 18:12:00 Jen Tsai [facility] LDH 2020-06-06 18:12:00 Jen Tsai [facility] FIBRINOGEN 2020-06-06 18:12:00 [facility] CHEST WO CONTRAST 2020-06-06 18:03:12 [facility] URINE CULTURE 2020-06-04 13:58:00 Kanchan Downey spital URINALYSIS SCREEN AND 2020-06-04 13:58:00 [facility] MICROSCOPY, WITH REFLEX TO CULTURE HCG QUALITATIVE, URINE 2020-06-04 13:58:00 [facility] SCREEN COVID-19 QUALITATIVE 2020-06-04 13:45:00 [facility] RT-PCR HC COMPLETE BLD COUNT 2020-06-04 08:45:00 [facility] W/AUTO DIFF [facility] COMPREHENSIVE METABOLIC 2020-06-04 07:56:00 [facility] PANEL Imarendenewe ESTIMATED GFR 2020-06-04 07:56:00 [facility] OCT, OPTIC NERVE - OU - 2020-03-08 19:34:[facility] AUTOMATED VISUAL FIELD, 2020-03-08 19:34:38 Tung [facility] EXTENDED - OU - BOTH EYES DURABLE MEDICAL EQUIPMENT 2020-02-16 15:31:42 [facility] BASIC METABOLIC PANEL 2020-02-16 10:10:00 Sharlene Julian [facility] [place] ESTIMATED GFR 2020-02-16 10:10:00 [facility] DURABLE MEDICAL EQUIPMENT 2020-02-15 20:56:49 Caleb [facility] EMG 2020-02-15 17:46:48 Lester car[place]ina [facility] HC COMPLETE BLD COUNT 2020-02-15 10:00:00 Matthew [facility] W/AUTO DIFF BASIC METABOLIC PANEL 2020-02-15 10:00:00 Matthew [facility] ESTIMATED GFR 2020-02-15 10:00:00 Jasmeet Benedict Ho spital VISUAL EVOKED POTENTIALS 2020-02-14 16:52:23 Dora Montalvo [facility] (VEP) HC COMPLETE BLD COUNT 2020-02-14 09:15:00 [facility] W/AUTO DIFF BASIC METABOLIC PANEL 2020-02-14 09:15:00 [facility] ESTIMATED GFR 2020-02-14 09:15:00 Jasmeet Benedict Ho spital MRI LUMBAR SPINE W WO 2020-02-13 15:28:12 [facility] CONTRAST MRI BRAIN VENOGRAM 2020-02-13 14:47:24 [facility] HC COMPLETE BLD COUNT 2020-02-13 09:05:00 [facility] W/AUTO DIFF BASIC METABOLIC PANEL 2020-02-13 09:00:00 [facility] ESTIMATED GFR 2020-02-13 09:00:00 Jasmeet Benedict Ho spital HC COMPLETE BLD COUNT 2020-02-12 15:18:00 [facility] W/AUTO DIFF BASIC METABOLIC PANEL 2020-02-12 13:00:00 [facility] ESTIMATED GFR 2020-02-12 13:00:00 Jasmeet Benedict Ho spital VENIPUNC NEED PHYS 2020-02-08 15:39:11 Familia Colon [facility] SKILL,DX OR RX MISCELLANEOUS REFERRAL 2020-02-08 14:00:00 Ozzie [facility] TEST Marck US DUPLEX VENOUS UPPER 2020-02-07 22:26:50 [facility] EXTREMITY RIGHT VENIPUNC NEED PHYS 2020-02-07 14:18:07 Javier Kolb [facility] SKILL,DX OR RX HC COMPLETE BLD COUNT 2020-02-07 10:00:00 [facility]/AUTO DIFF BASIC METABOLIC PANEL 2020-02-07 10:00:00 [facility] ESTIMATED GFR 2020-02-07 10:00:00 Lock, [facility] HC COMPLETE BLD COUNT 2020-02-06 11:18:00 Lock, [facility] W/AUTO DIFF BASIC METABOLIC PANEL 2020-02-06 11:18:00 Lock, [facility] ESTIMATED GFR 2020-02-06 11:18:00 Lock, [facility] XR CHEST 1 VW PORTABLE 2020-02-06 02:27:51 Lock, [facility] ECG 12-LEAD 2020-02-06 02:12:53 Lock, [facility] HC COMPLETE BLD COUNT 2020-02-05 11:00:00 Lock, [facility] W/AUTO DIFF BASIC METABOLIC PANEL 2020-02-05 09:00:00 Lock, [facility] ESTIMATED GFR 2020-02-05 09:00:00 Lock, [facility] IGG SYNTHESIS RATE STUDY 2020-02-04 16:00:00 [facility] FUNGUS CULTURE 2020-02-04 15:56:00 [facility] AFB CULTURE 2020-02-04 15:56:00 [facility] IR LUMBAR PUNCTURE 2020-02-04 15:00:00 [facility] CSF CULTURE 2020-02-04 14:56:00 [facility] CRYPTOCOCCAL ANTIGEN 2020-02-04 14:56:00 [facility] SCREEN GRAM STAIN 2020-02-04 14:56:00 Kim Guevara [facility] CSF CELL COUNT WITH 2020-02-04 14:56:00 [facility] DIFFERENTIAL GLUCOSE LEVEL, CSF 2020-02-04 14:56:00 [facility] IGG SYNTHESIS RATE STUDY 2020-02-04 14:56:00 [facility] VDRL, CSF 2020-02-04 14:56:00 [facility] LYME DISEASE REFLEXIVE 2020-02-04 14:56:00 [facility] PANEL, CSF CYTOMEGALOVIRUS BY PCR 2020-02-04 14:56:00 [facility] MISCELLANEOUS REFERRAL 2020-02-04 14:56:00 Paola [facility] TEST ENTEROVIRUS BY PCR 2020-02-04 14:56:00 [facility] HERPES SIMPLEX VIRUS BY 2020-02-04 14:56:00 [facility] PCR FLOW CYTOMETRY EVALUATION 2020-02-04 14:56:00 [facility] [place] VIRUS ANTIBODY 2020-02-04 14:56:00 [facility] PANEL, CSF ANGIOTENSIN CONVERTING 2020-02-04 14:56:00 [facility] ENZYME, CSF OLIGOCLONAL BANDING, CSF 2020-02-04 14:56:00 Paola [facility] MISCELLANEOUS REFERRAL 2020-02-04 14:56:00 Paola [facility] TEST EEG AWAKE/ASLEEP LESS THAN 2020-02-04 12:19:32 [facility] 41 MIN ECG 12-LEAD 2020-02-04 09:50:[facility] & 2020-02-04 06:50:00 [facility] ANAEROBIC BLOOD CULTURE, AEROBIC & 2020-02-04 06:40:00 [facility] ANAEROBIC MISCELLANEOUS REFERRAL 2020-02-04 06:40:00 [facility] TEST HC COMPLETE BLD COUNT 2020-02-04 06:40:00 [facility] W/AUTO DIFF BASIC METABOLIC PANEL 2020-02-04 06:40:00 [facility] ESTIMATED GFR 2020-02-04 06:40:00 Paola [facility] URINE CULTURE 2020-02-04 05:56:00 Kim Guevara [facility] URINALYSIS SCREEN AND 2020-02-04 05:56:00 Manan [facility] MICROSCOPY, WITH REFLEX TO CULTURE URINE DRUGS OF ABUSE 2020-02-04 05:56:[address] [facility] SCREEN COVID-19 QUALITATIVE 2020-02-04 04:41:00 Kim Guevara [facility] RT-PCR MRI BRAIN & ORBIT W WO 2020-02-04 03:12:00 [facility] CERVICAL SPINE W 2020-02-04 03:12:00 Manan Hernández [facility] CONTRAST MRI THORACIC SPINE W 2020-02-04 03:12:[address] [facility] CONTRAST CYTOLOGY 2020-02-04 01:17:00 Michael Madd[facility] (NON-GYNECOLOGICAL) REQUEST COMPREHENSIVE METABOLIC 2020-02-03 23:35:00 [facility] PANEL ESTIMATED GFR 2020-02-03 23:35:00 Kim Guevara [facility] HC COMPLETE BLD COUNT 2020-02-03 23:25:00 Manan Hernández [facility] W/AUTO DIFF ELMER 2020-02-03 23:25:00 [facility] FOLATE LEVEL 2020-02-03 23:25:00 [facility] VITAMIN B12 LEVEL 2020-02-03 23:25:00 Manan Hernández [facility] C-REACTIVE PROTEIN 2020-02-03 23:25:00 Edgar Manan [facility] HOMOCYSTINE, PLASMA 2020-02-03 23:25:00 [facility] CORTISOL LEVEL, RANDOM 2020-02-03 23:25:00 [facility] SEDIMENTATION RATE 2020-02-03 23:25:00 [facility] RHEUMATOID FACTOR 2020-02-03 23:25:00 [facility] THYROID STIMULATING 2020-02-03 23:25:[address] [facility] HORMONE T4, FREE 2020-02-03 23:25:00 [facility] T3 2020-02-03 23:25:00 [facility] SYPHILIS TREPONEMA SCREEN 2020-02-03 23:25:00 [facility] WITH RPR CONFIRMATION (REVERSE ALGORITHM) HIV AG/AB COMBINATION 2020-02-03 23:25:00 [facility] VITAMIN D 25 HYDROXY LEVEL 2020-02-03 23:25:00 [facility] B. BURGDORFERI ABS TOTAL, 2020-02-03 23:25:00 [facility] SERUM CT HEAD WO CONTRAST 2020-02-03 21:14:55 [facility] HCG QUANTITATIVE, SERUM 2020-02-03 19:27:00 [facility] Tubal ligation [facility] Plan of Care Planned Activity Planned Date Details Comments Source Future Scheduled 2022-05-09 COVID-19 VACCINE (#1) [facility] 08:52:12 [code = COVID-19 [facility] VACCINE (#1)] Future Scheduled 2022-05-09 Pneumococcal Vaccine: [facility] 08:52:12 Pediatrics (0 to 5 Hospital Years) and At-Risk Patients (6 to 64 Years) (1 - PCV) [code = Pneumococcal Vaccine: Pediatrics (0 to 5 Years) and At-Risk Patients (6 to 64 Years) (1 - PCV)] Future Scheduled 2022-05-09 Hepatitis C screening [facility] 08:52:12 (procedure) [code = Hospital 946294788] Future Scheduled 2022-05-09 Screening for malignant [facility] 08:52:12 neoplasm of cervix Hospital (procedure) [code = 461878531] Future Scheduled 2022-05-09 INFLUENZA VACCINE [code [facility] 08:52:12 = INFLUENZA VACCINE] Hospita l Future Scheduled 2021-12-29 COVID-19 Vaccination Uni versity of Test 09:55:46 (#1) [code = COVID-19 [place] [facility] Vaccination (#1)] [facility] Future Scheduled 2021-12-29 COVID-19 Vaccination Uni vers[facility] of Test 09:55:46 (#1) [code = COVID-19 [facility] Vaccination (#1)] [facility] Future Scheduled 2021-12-19 HEPATITIS B VACCINES (1 [facility] Test 11:56:14 of 3 - 3-dose series) Hospit al [code = HEPATITIS B VACCINES (1 of 3 - 3-dose series)] Future Scheduled 2021-12-19 COVID-19 VACCINE (#1) [facility] 11:56:14 [code = COVID-19 Hospital VACCINE [...] thodist Test 11:56:14 (procedure) [code = Hospital 121986928] Future Scheduled 2021-12-19 Screening for malignant [facility] 11:56:14 neoplasm of cervix Hospital (procedure) [code = 241929735] Future Scheduled 2021-12-19 INFLUENZA VACCINE [code [facility] 11:56:14 = INFLUENZA VACCINE] Hospita l Future Scheduled 2021-12-08 HEPATITIS B VACCINES (1 [facility] 22:34:45 of 3 - 3-dose series) [...] thodist Test 22:34:45 (procedure) [code = Hospital 481973135] Future Scheduled 2021-12-08 Screening for malignant [facility] 22:34:45 neoplasm of cervix Hospital (procedure) [code = 653395132] Future Scheduled 2021-12-08 INFLUENZA VACCINE [code [facility] 22:34:45 = INFLUENZA VACCINE] Hospita l Future Scheduled 2021-11-19 COVID-19 Vaccination [facility] of Test 14:10:01 (#1) [code = COVID-19 [facility] Vaccination (#1)] [facility] Future Scheduled 2021-10-12 COVID-19 Vaccination Uni vers[facility] of Test 03:31:54 (#1) [code = COVID-19 [facility] Vaccination (#1)] [facility] Future Scheduled 2021-05-22 COVID-19 VACCINE (1) [facility] 13:11:02 [code = COVID-19 Hospital VACCINE (1)] Future Scheduled 2021-05-22 Hepatitis C screening [facility] 13:11:02 (procedure) [code = Hospital 964578662] Future Scheduled 2021-05-22 INFLUENZA VACCINE [code [facility] 13:11:02 = INFLUENZA VACCINE] Hospita l Future Scheduled 2021-05-22 Screening for malignant [facility] Test 13:11:02 neoplasm of cervix [facility] (procedure) [code = 033283115] Future Scheduled 2020-10-27 SEDIMENTATION RATE Ordered: [facility] [employer] of Test 12:31:11 MODIFIED WESTERGREN 10/27/2020 Medicine [code = 4537-7] Future Scheduled 2020-10-27 RANDOM URINE Ordered: [facility] ege of Test 12:31:11 PROTEIN/CREATININE 10/27/2020 Medicine [code = 2890-2] Future Scheduled 2020-10-27 URINALYSIS, COMPLETE Ordered: [facility] [employer] [facility] Test 12:31:11 W/REFLEX TO CULTURE 10/27/2020 Medicine [code = 24861-5] Future Scheduled 2020-10-27 COMPLEMENT C3 AND C4 Ordered: [facility] [employer] [facility] Test 12:31:11 [code = NOCPT] 10/27/2020 Medicine Future Scheduled 2020-10-27 DNA (DS) ANTIBODY, Ordered: [facility] [employer] [facility] Test 12:31:11 CRITHIDIA IFA W/RX 10/27/2020 Medicine TITER [code = 6457-6] Future Scheduled 2020-10-27 C-REACTIVE PROTEIN Ordered: [facility] of Test 12:31:11 [code = 1988-5] 10/27/2020 Medicine Future Scheduled 2020-10-27 HAPTOGLOBIN [code = Ordered: [facility] Test 12:31:11 96272-7] 10/27/2020 Medicine Future Scheduled 2020-10-27 LACTATE DEHYDROGENASE Ordered: [facility] Test 12:31:11 [code = 2532-0] 10/27/2020 Medicine Future Scheduled 2020-10-27 RETICULOCYTE WITH Ordered: [facility] Test 12:31:11 ABSOLUTE [code = NOCPT] 10/27/2020 Medi cine Future Scheduled 2020-10-27 PATH REVIEW, SMEAR Ordered: [facility] Test 12:31:11 [code = 34218-2] 10/27/2020 Medicine Future Scheduled 2020-10-27 DIRECT ANTIGLOBULIN Ordered: [facility] Test 12:31:11 TEST [code = 91522] 10/27/2020 Medicine Future Scheduled 2020-10-27 COMPREHENSIVE METABOLIC Ordered: [facility] Test 12:31:11 PANEL [code = 13072-3] 10/27/2020 Medic ine Future Scheduled 2020-10-27 CBC W/AUTO DIFF WITH Ordered: [facility] Test 12:31:11 PLATELETS [code = 10/27/2020 Medicine 48653-9] Future Scheduled 2020-10-27 COVID-19 Vaccine (1) [facility] Test 11:49:19 [code = COVID-19 Medicine Vaccine (1)] Future Scheduled 2020-10-27 TETANUS SHOT (ADULT) [facility] Test 11:49:19 [code = TETANUS SHOT Medicin e (ADULT)] Future Scheduled 2020-10-27 BMI FOLLOW UP PLAN [facility] Test 11:49:19 [code = BMI FOLLOW UP Medici ne PLAN] Future Scheduled 2020-10-27 Hepatitis C screening [facility] Test 11:49:19 (procedure) [code = Medicine 409865062] Future Scheduled 2020-10-27 Human immunodeficiency [facility] Test 11:49:19 virus screening Medicine (procedure) [code = 151643932] Future Scheduled 2020-10-27 Screening for malignant [facility] Test 11:49:19 neoplasm of cervix Medicine (procedure) [code = 957613237] Future Scheduled 2020-10-27 FLU VACCINE > 6 MONTHS B [facility] Test 11:49:19 [code = FLU VACCINE > 6 Medi cine MONTHS] Future Scheduled 2020-09-08 COVID-19 Vaccine (1) [facility] Test 13:06:03 [code = COVID-19 Medicine Vaccine (1)] Future Scheduled 2020-09-08 TETANUS SHOT (ADULT) [facility] Test 13:06:03 [code = TETANUS SHOT Medicin e (ADULT)] Future Scheduled 2020-09-08 BMI FOLLOW UP PLAN [facility] Test 13:06:03 [code = BMI FOLLOW UP Medici ne PLAN] Future Scheduled 2020-09-08 Hepatitis C screening [facility] Test 13:06:03 (procedure) [code = Medicine 627979615] Future Scheduled 2020-09-08 Human immunodeficiency [facility] Test 13:06:03 virus screening Medicine (procedure) [code = 105462446] Future Scheduled 2020-09-08 Screening for malignant [facility] Test 13:06:03 neoplasm of cervix Medicine (procedure) [code = 221046016] Future Scheduled 2020-09-08 FLU VACCINE > 6 MONTHS B [facility] Test 13:06:03 [code = FLU VACCINE > 6 Medi cine MONTHS] Future Scheduled COVID-19 VACCINE (1) [facility] [code = COVID-19 Hospital VACCINE (1)] Future Scheduled Hepatitis C screening [facility] (procedure[facility] [code = Hospital 299501484] Future Scheduled INFLUENZA VACCINE [code [facility]] Hospita l Future Scheduled Screening for malignant [facility] ne[facility] cervix Hospital (procedure) [code = 337361168] Future Scheduled COVID-19 VACCINE (1) [facility] [code = COVID-19 Hospital VACCINE (1)] Future Scheduled Hepatitis C screening [facility] (procedure) [code = Hospital 200385051] Future Scheduled INFLUENZA VACCINE [code [facility] = INFLU[facility] VACCINE] Hospita l Future Scheduled Screening for malignant [facility] neoplasm of cervix Hospital (procedure) [code = 832830691] Encounters Start End Encounter Admission Attending Care Care Encounter Source Date/Time Date/Time Type Type Clinicians Facility Department ID 2022-03-05 [id number] 2 Common 16:01:01 [id number] [place] 2022-02-18 Outpatient Savage, Na STLMLC STLMLC [id number] 2 Common 16:47:00 [place] 2022-01-07 Outpatient Savage, Na STLMLC STLMLC [id number] 2 Common 08:34:01 [place] 2021-11-21 Outpatient Savage, Na STLMLC STLMLC [id number] 2 Common 13:25:00 [place] 2021-05-25 Outpatient Savage, Na STLMLC STLMLC [id number] 2 Common 09:21:01 [place] 2021-05-16 Outpatient Savage, Na STLMLC STLMLC [id number] 2 Common 14:39:54 [place] 2021-05-16 Outpatient Savage, Na STLMLC STLMLC [id number] 2 Common 14:39:03 [place] 2021-05-16 Outpatient Savage, Na STLMLC STLMLC [id number] 2 Common 14:08:33 [id number] [place] 2021-05-16 Outpatient Savage, Na STLMLC STLMLC [id number] 2 Common 13:55:22 [id number] [place] 2021-05-16 Outpatient Savage, Na STLMLC STLMLC [id number] 2 Common 13:50:31 [id number] [place] 2021-05-16 Outpatient Savage, Na STLMLC STLMLC [id number] 2 Common 13:20:21 [id number] [place] 2021-05-16 Outpatient Savage, Na STLMLC STLMLC [id number] 2 Common 13:00:40 [id number] [place] 2021-05-16 Outpatient Savage, Na STLMLC STLMLC [id number] 2 Common 12:46:28 [id number] [place] 2021-05-16 Outpatient Savage, Na STLMLC STLMLC [id number] 2 Common 12:38:13 [id number] [place] 2021-05-16 Outpatient Savage, Na STLMLC STLMLC [id number] 2 Common 12:35:30 [id number] [place] 2021-05-16 Outpatient Savage, Na STLMLC STLMLC [id number] 2 Common 12:34:43 [id number] [place] 2021-05-16 Outpatient Savage, Na STLMLC STLMLC [id number] 2 Common 12:31:51 [id number] [place] 2021-05-16 Outpatient Savage, Na STLMLC STLMLC [id number] 2 Common 12:06:00 [id number] [place] 2021-05-16 Outpatient Savage, Na STLMLC STLMLC [id number] 2 Common 12:01:01 [id number] [place] 2021-05-16 Outpatient Savage, Na STLMLC STLMLC [id number] 2 Common 11:58:36 [id number] [place] 2021-05-16 Outpatient Savage, Na STLMLC STLMLC [id number] 2 Common 11:57:24 [id number] [place] 2021-05-16 Outpatient Savage, Na STLMLC STLMLC [id number] 2 Common 11:34:36 [id number] [place] 2021-05-16 Outpatient Savage, Na STLMLC STLMLC [id number] 2 Common 11:08:41 [id number] [place] 2021-05-16 Outpatient Savage, Na STLMLC STLMLC [id number] 2 Common 11:06:29 [id number] [place] 2021-05-16 Outpatient Savage, Na STLMLC STLMLC [id number] 2 Common 11:05:46 [id number] [place] 2022-10-11 2022-10-11 Outpatient MHIE FAYEIE [id number] Memoria 13:30:00 13:30:00 22 matt Silva 2022-04-16 2022-04-17 Outpatient MHIE MNA [id number] Memoria 19:45:00 05:59:59 Neurology 21 l Ean Silva 2022-04-16 2022-04-16 [id number] 13:45:00 23:59:59 David 21 Marck 2022-04-16 2022-04-16 Ambulatory MHIE MNA [id number] Memoria 19:00:00 19:00:00 Pre-Reg Neurology 20 matt Silva 2022-04-16 2022-04-16 Outpatient MHIE MHIE [id number] Memoria 13:45:00 13:45:00 21 matt Silva 2022-04-16 2022-04-16 [facility] [id number] 13:00:00 13:00:00 David 20 Marck 2022-04-06 2022-04-06 (TEL) STLMLC STLMLC [id number] Co mmon 00:00:00 00:00:00 [place] 2022-04-05 2022-04-05 Outpatient MHIE MHIE [id number] Memoria 09:15:00 09:15:00 20 matt Silva 2022-04-05 2022-04-05 Outpatient MHIE MHIE [id number] Memoria 09:15:00 09:15:00 20 matt Silva 2022-03-05 2022-03-05 (TEL) STLMLC STLMLC [id number] Co mmon 00:00:00 00:00:00 [place] 2022-02-20 2022-02-20 OFFICE STLMLC STLMLC [id number] Co mmon 00:00:00 00:00:00 VISIT [facility] - CHI LEVEL 4 [facility] 2022-02-14 2022-02-14 (TEL) STLMLC STLMLC [id number] Co mmon 00:00:00 00:00:00 [place] 2022-02-14 2022-02-14 (TEL) STLMLC STLMLC [id number] Co mmon 00:00:00 00:00:00 [place] 2022-02-01 2022-02-02 Outpatient nullFlavo MNA [id number] Memoria 14:15:00 04:59:59 r Neurology 19 l Ean Silva 2022-02-01 2022-02-02 Outpatient nullFlavo MNA [id number] Memoria 14:15:00 04:59:59 r Neurology 19 l Ean Silva 2022-02-01 2022-02-01 [id number] 09:15:00 23:59:59 David 19 Marck 2022-02-01 2022-02-01 Outpatient MHIE MHIE [id number] Memoria 09:15:00 09:15:00 19 matt Silva 2022-01-09 2022-01-09 [facility] [id number] Co mmon 00:00:00 00:00:00 VISIT EST Spir it PT LEVEL 3 - CHI [facility] 2021-12-28 2021-12-29 Outpatient nullFlavo MNA [id number] Memoria 18:15:00 04:59:59 r Neurology 18 l Ean Silva 2021-12-28 2021-12-29 Outpatient nullFlavo MNA [id number] Memoria 18:15:00 04:59:59 r Neurology 18 l Ean Silva 2021-12-28 2021-12-28 Outpatient [facility] [id number] 13:15:00 23:59:59 David 18 Marck 2021-12-28 2021-12-28 Outpatient MHIE MHIE [id number] Memoria 13:15:00 13:15:00 18 matt Silva 2021-12-20 2021-12-21 Outpatient nullFlavo MNA [id number] Memoria 14:30:00 04:59:59 r Neurology 17 l Ean Silva 2021-12-20 2021-12-21 Outpatient nullFlavo MNA [id number] Memoria 14:30:00 04:59:59 r Neurology 17 matt Silva 2021-12-20 2021-12-20 Outpatient FAYE [facility]ASCHER [facility] [id number] 09:30:00 23:59:59 David 17 Marck 2021-12-20 2021-12-20 Outpatient MHIE MHIE [id number] Memoria 09:30:00 09:30:00 17 matt Silva 2021-12-19 2021-12-19 OFFICE STLMLC STLMLC [id number] Co mmon 00:00:00 00:00:00 VISIT [facility] ESTAB PT - CHI LEVEL 4 [facility] 2021-12-17 2021-12-17 (TEL) STLMLC STLMLC [id number] Co mmon 00:00:00 00:00:00 Spirit [facility] 2021-10-29 2021-10-29 (TEL) STLMLC STLMLC [id number] Co mmon 00:00:00 00:00:00 [place] 2021-10-24 2021-10-24 OFFICE STLMLC STLMLC [id number] Co mmon 00:00:00 00:00:00 VISIT [facility] ESTAB PT - CHI LEVEL 4 [facility] 2021-06-12 2021-06-12 (TEL) STLMLC STLMLC [id number] Co mmon 00:00:00 00:00:00 [place] 2021-06-12 2021-06-12 OFFICE STLMLC STLMLC [id number] Co mmon 00:00:00 00:00:00 VISIT EST Spir it PT LEVEL 3 - CHI [facility] 2021-06-09 2021-06-09 Outpatient R MENDEZ [facility] [id number] Univers 10:40:00 11:06:50 MADDY ity [facility] 2021-06-09 2021-06-09 Urgent Mendez [facility] 1.2.840.114 [id number] Univers 10:40:00 11:06:[address] [facility] 350.1.13.10 it y of [place] 4.2.7.2.686 Raj as NINO?BLEA [phone] [address] MEDICAL OFFICE BUILDING 2021-06-09 2021-06-09 Telephone Shaylee Ross 1.2.840.114 [id number] Univers 00:00:00 00:00:00 TIMOTHY 350.1.13.10 it y of [facility] 4.2.7.2.686 Raj as [phone] [place] [id number] [place] 2021-06-02 2021-06-02 (TEL) STLMLC STLMLC [id number] Co mmon 00:00:00 00:00:00 [place] 2021-05-21 2021-05-21 (TEL) STLMLC STLMLC [id number] Co mmon 00:00:00 00:00:00 [place] 2021-05-16 2021-05-16 OFFICE STLMLC STLMLC [id number] Co mmon 00:00:00 00:00:00 VISIT [facility] LEVEL 4 [facility] 2021-05-15 2021-05-15 (TEL) STLMLC STLMLC [id number] Co mmon 00:00:00 00:00:00 [place] 2021-04-27 2021-04-27 (TEL) STLMLC STLMLC [id number] Co mmon 00:00:00 00:00:00 [place] 2021-03-30 2021-03-30 [facility] Jori Mclaughlin 1.2.840.1 [id number] Univers 07:00:00 23:59:00 Encounter 61679.1.1 it y of 3.412.2.7 [place] .3.391559 [facility] 2021-03-30 2021-03-30 Office Jori Mclaughlin 1.2.840.1 [id number] [facility] 09:30:00 09:45:00 Visit Nicki Staley 48752.1.1 ity of 3.412.2.7 [place] .3.052380 MD [facility] 2021-03-30 2021-03-30 Orders Rebeka 1Grazyna2.840.1 [id number] Univers 00:00:00 00:00:00 Only Nicki 55288.1.1 it y of 3.412.2.7 [place] .3Grazyna317233 MD [facility] 2021-03-30 2021-03-30 Travel 1.2.840.1 1.2.143.965 [id number] Univers 00:00:00 00:00:00 40957.1.1 350.1.13.41 ity of 3.412.2.[place]3.698 [place] .3.132533 084.8 .8 [facility] 2021-03-30 2021-03-30 Jori Nicholson 1.2.840.1 [id number] Univers 00:00:00 00:00:00 Only 33473.1.1 ity of 3.412.2.7 [place] .3.238955 .8 [facility] 2021-03-16 2021-03-[address] [facility] [id number] Univers 10:20:00 10:27:28 [facility] 2021-03-16 2021-03-16 [facility] 1.2.840. 114 [id number] Univers 09:54:29 10:27:28 [facility] 350.1.13.10 ity of [place] 4.2.7.2.686 Raj as NINO?BLEA [phone] [address] MEDICAL OFFICE BUILDING 2021-03-13 2021-03-13 (TEL) [facility] [id number] Co mmon 00:00:00 00:00:00 [place] 2021-03-12 2021-03-12 (TEL) [facility] [id number] Co mmon 00:00:00 00:00:00 [place] 2021-02-20 2021-02-[address] [facility] [id number] Univers 09:20:00 09:38:06 [facility] 2021-02-20 2021-02-20 Urgent [facility] 1.2.840.114 [id number] Univers 09:11:11 09:38:06 Care [facility] 350.1.13.10 i ty of [place] 4.2.7.2.686 Raj as NINO?BLEA [id number] Me payton TAMEZ [facility] MEDICAL OFFICE BUILDING 2021-01-24 2021-01-24 OFFICE STLMLC STLMLC [id number] Co mmon 00:00:00 00:00:00 VISIT EST Spir it PT LEVEL 3 [facility] 2021-01-06 2021-01-06 Outpatient STLMLC STLMLC [id number] Common 00:00:00 00:00:00 [place] 2021-01-05 2021-01-05 Outpatient STLMLC STLMLC [id number] Common 00:00:00 00:00:00 [place] 2021-01-05 2021-01-05 Outpatient STLMLC STLMLC [id number] Common 00:00:00 00:00:00 [place] 2020-12-29 2020-12-29 Outpatient STLMLC STLMLC [id number] Common 00:00:00 00:00:00 [place] 2020-12-28 2020-12-28 Outpatient STLMLC STLMLC [id number] Common 00:00:00 00:00:00 [place] 2020-12-26 2020-12-26 Outpatient STLMLC STLMLC [id number] Common 00:00:00 00:00:00 [facility] 2020-12-08 2020-12-08 Telephone Harsh, 1.2.840.1 [id number] Methodi 00:00:00 00:00:[address] 3.430.2.7 Hospit a .3.655843 l .8 2020-12-07 2020-12-07 Orders Soco Savage 1.2.840.1 [id number] Methodi 00:00:00 00:00:[address] 3.430.2.7 Hospit a .3.337516 l .8 2020-12-06 2020-12-06 [facility] [id number] Univers 12:30:00 12:30:00 INOCENTE ity of [facility] 2020-12-05 2020-12-05 Telephone NATI Mason 1.2.570.518 [id number] Univers 00:00:00 00:00:00 Shilpa AGUIRRE 350.1.13.10 it y of [facility] 4.2.7.2.686 Raj as [phone] [facility] 019 [place] 2020-12-04 2020-12-04 Emergency [facility] 1.2.840.114 [id number] Univers 20:55:00 23:38:00 Truong Odem 350.1.13.10 i ty [facility] 4.2.7.2.686 [place] [facility] [phone] [place]0054 [place] 2020-12-04 2020-12-04 [facility] [id number] Univers 20:51:53 20:51:53 TRUONG [facility] 2020-12-04 2020-12-04 Outpatient STLMLC STLMLC [id number] Common 00:00:00 00:00:00 [place] 2020-12-03 2020-12-03 Urgent Provider, [facility] 1.2.840.114 [id number] Univers 18:59:54 19:19:54 Care Tessa Mendoza [facility] 350.1.13.10 ity [facility] 4.2.7.2.686 Raj as Professio [phone] [address] Office Building [address] 2020-12-03 2020-12-03 [facility] [id number] Univers 18:40:00 18:40:00 TESSA shearer o f [facility] 2020-12-01 2020-12-01 Ambulatory nullFlavo MNA [id number] Memoria 16:30:00 16:30:00 Pre-Reg r Neurology 16 l Ean Silva 2020-12-01 2020-12-01 Ambulatory nullFlavo MNA [id number] Memoria 16:30:00 16:30:00 Pre-Reg r Neurology 16 l Ean Silva 2020-12-01 2020-12-01 Outpatient MHIE MHIE [id number] Memoria 11:30:00 11:30:00 16 matt Silva 2020-12-01 2020-12-01 Outpatient [facility] [id number] 11:30:00 11:30:00 David 16 Marck 2020-10-27 2020-10-27 Office SelenaAMIE 1.2.840.114 [id number] 11:43:47 12:34:19 Visit Chika AMBULATOR 350.1.13.21 Y 0.2.7.2.686 [id number] [facility] 2020-10-27 2020-10-27 Office AMIE Walters 1.2.840.[id number] [place] [address] 11:43:47 12:34:19 Visit Chika AMBULATOR 350.1.13.21 College Y 0.2.7.2.686 of [id number] [facility] 370 e 2020-10-18 2020-10-18 Outpatient STLMLC STLMLC [id number] Common 00:00:00 00:00:00 [place] 2020-10-13 2020-10-13 Outpatient MHIE MHIE [id number] Memoria 10:30:00 10:30:00 14 matt Silva 2020-10-13 2020-10-13 Outpatient MHIE MHIE [id number] Memoria 10:30:00 10:30:00 14 matt Silva 2020-10-12 2020-10-13 Outpatient nullFlavo MNA [id number] Memoria 19:15:00 04:59:59 r Neurology 15 l Ean Lrann 2020-10-12 2020-10-13 Outpatient nullFlavo MNA [id number] Memoria 19:15:00 04:59:59 r Neurology 15 l Ean Lrann 2020-10-12 2020-10-12 Outpatient ASIF [facility] [id number] 14:15:00 23:59:59 David Arsenio Acharya 2020-10-12 2020-10-12 Outpatient MHIE MHIE [id number] Memoria 14:15:00 14:15:00 15 l [place] 2020-10-11 2020-10-11 Ambulatory nullFlavo MNA [id number] Memoria 18:30:00 18:30:00 Pre-Reg r Neurology 14 l [place] 2020-10-11 2020-10-[address] [facility] [id number] 13:30:00 13:30:00 David 14 Marck 2020-10-11 2020-10-11 Outpatient STLMLC STLMLC [id number] Common 00:00:00 00:00:00 [place] 2020-09-08 2020-09-08 Office ROMULO Walters 1.2.840.114 [id number] 10:12:53 13:09:00 Visit Chika AMBULATOR 350.1.13.21 Suresh Y 0.2.7.2.686 [id number] 370 2020-09-08 2020-09-08 Office ROMULO Walters 1.2.840.114 [id number] [facility] 10:12:53 13:09:00 Visit Chika AMBULATOR 350.1.13.21 College Suresh Y 0.2.7.2.686 of [id number] [facility] юлия 370 e 2020-09-08 2020-09-08 Outpatient STLMLC STLMLC [id number] Common 00:00:00 00:00:00 [place] 2020-09-07 2020-09-07 Outpatient STLMLC STLMLC [id number] Common 00:00:00 00:00:00 [place] 2020-09-01 2020-09-01 Outpatient STLMLC STLMLC [id number] Common 00:00:00 00:00:00 [place] 2020-08-29 2020-08-30 Outpatient nullFlavo MNA [id number] Memoria 20:45:00 04:59:59 r Neurology 13 l Ean Silva 2020-08-29 2020-08-30 Outpatient nullFlavo MNA [id number] Memoria 20:45:00 04:59:59 r Neurology 13 l Ean Lrann 2020-08-29 2020-08-29 Outpatient Juliet, FAYEMISCHER DEDESCHER [id number] 15:45:00 23:59:59 Davidgrayson Acharya 2020-08-29 2020-08-29 Outpatient MHIE FAYELAURENCE [id number] Memoria 15:45:00 15:45:00 13 matt Silva 2020-08-28 2020-08-28 Outpatient STLMLC STLMLC [id number] Common 00:00:00 00:00:00 [place] 2020-08-15 2020-08-15 Outpatient STLMLC STLMLC [id number] Common 00:00:00 00:00:00 [place] 2020-08-08 2020-08-08 Outpatient STLMLC STLMLC [id number] Common 00:00:00 00:00:00 [place] 2020-08-08 2020-08-08 Outpatient STLMLC STLMLC [id number] Common 00:00:00 00:00:00 [place] 2020-08-07 2020-08-07 Outpatient STLMLC STLMLC [id number] Common 00:00:00 00:00:00 [place] 2020-07-26 2020-07-26 Outpatient STLMLC STLMLC [id number] Common 00:00:00 00:00:00 [place] 2020-07-20 2020-07-20 Outpatient STLMLC STLMLC [id number] Common 00:00:00 00:00:00 [place] 2020-07-10 2020-07-10 Outpatient STLMLC STLMLC [id number] Common 00:00:00 00:00:00 [place] 2020-07-10 2020-07-10 Outpatient STLMLC STLMLC [id number] Common 00:00:00 00:00:00 [place] 2020-07-06 2020-07-06 Outpatient STLMLC STLMLC [id number] Common 00:00:00 00:00:00 [place] 2020-07-04 2020-07-04 Outpatient STLMLC STLMLC [id number] Common 00:00:00 00:00:00 [place] 2020-06-30 2020-06-30 Outpatient STLMLC STLMLC [id number] Common 00:00:00 00:00:00 [place] 2020-06-27 2020-06-27 Outpatient STLMLC STLMLC [id number] Common 00:00:00 00:00:00 [place] 2020-06-20 2020-06-20 Outpatient STLMLC STLMLC [id number] Common 00:00:00 00:00:00 [place] 2020-06-19 2020-06-19 Outpatient STLMLC STLMLC [id number] Common 00:00:00 00:00:00 [place] 2020-06-14 2020-06-16 Outside nullFlavo MNA [id number] Memoria 21:54:19 05:59:59 Medical r Neurology 01 l Records [place] 2020-06-14 2020-06-16 Outside nullFlavo MNA [id number] Memoria 21:54:19 05:59:59 Medical r Neurology 01 l Records [place] 2020-06-14 2020-06-15 Outpatient MHMISCHER MHMISCHER [id number] 15:54:19 23:59:59 2020-06-12 2020-06-12 Outpatient STLMLC STLMLC [id number] Common 00:00:00 00:00:00 [place] 2020-06-12 2020-06-12 Outpatient STLMLC STLMLC [id number] Common 00:00:00 00:00:00 [place] 2020-06-10 2020-06-10 Infusion Alhaji, 1.2.840.1 [id number] Methodi 11:41:17 14:59:06 Marques Lobo 25256.1.[address] 3.430.2.7 Hospit a .3.812298 l .8 2020-06-10 2020-06-10 Travel 1.2.840.1 1.2.235.147 [id number] Methodi 00:00:00 00:00:[address] 3.430.2.7 0.2.7.3.698 Ho spita .3.582863 084.8 l .8 2020-06-10 2020-06-10 Orders Anival, 1.2.840.1 [id number] Methodi 00:00:00 00:00:00 Only Sue 27450.1.[address] 3.430.2.7 Hospit a .3.759358 l .8 2020-06-10 2020-06-10 Telephone Anival, 1.2.840.1 [id number] Methodi 00:00:00 00:00:[address] 3.430.2.7 Hospit a .3.083417 l .8 2020-06-10 2020-06-10 Orders Anival, 1.2.840.1 [id number] 1952 Methodi 00:00:00 00:00:00 Only Sue 23354.1.[address] 3.430.2.7 Hospit a .3.313978 l .8 2020-06-09 2020-06-09 Outpatient STLMLC STLMLC [id number] Common 00:00:00 00:00:00 [place] 2020-06-09 2020-06-09 Outpatient STLMLC STLMLC [id number] Common 00:00:00 00:00:00 [place] 2020-06-04 2020-06-07 [facility] Caleb Umana 1.2.840.1 [id number] Methodi 00:56:00 14:30:00 Encounter Kanchan Downey 11201.1.[address] Jen Tsai Jefflal 3.430.2.7 Hospita .3.219399 l .8 2020-05-31 2020-06-01 Outpatient nullFlavo MNA [id number] Memoria 17:30:00 05:59:59 r Neurology 12 l [place] Ricardo 2020-05-31 2020-06-01 Outpatient nullFlavo MNA [id number] Memoria 17:30:00 05:59:59 r Neurology 12 matt Silva 2020-05-31 2020-05-31 Outpatient FAYE ChungWASCHER MISCHER [id number] 11:30:00 23:59:59 David 12 [place] 2020-05-31 2020-05-31 Ambulatory nullFlavo MNA [id number] Memoria 21:30:00 21:30:00 Pre-Reg r Neurology 11 l Ean Silva 2020-05-31 2020-05-31 Ambulatory nullFlavo MNA [id number] Memoria 21:30:00 21:30:00 Pre-Reg r Neurology 11 l Ean Silva 2020-05-31 2020-05-31 Outpatient MHIE MHIE [id number] Memoria 15:30:00 15:30:00 11 matt Silva 2020-05-31 2020-05-31 [facility] [id number] 15:30:00 15:30:00 David 11 [place] 2020-05-31 2020-05-31 Outpatient MHIE MHIE [id number] Memoria 11:30:00 11:30:00 12 matt Silva 2020-04-19 2020-04-20 Outpatient nullFlavo MNA [id number] Memoria 20:00:00 05:59:59 r Neurology 10 l Ean Silva 2020-04-19 2020-04-20 Outpatient nullFlavo MNA [id number] Memoria 20:00:00 05:59:59 r Neurology 10 matt Silva 2020-04-19 2020-04-19 [facility] [id number] 14:00:00 23:59:59 David 10 [place] 2020-04-19 2020-04-19 Outpatient MHIE MHIE [id number] Memoria 14:00:00 14:00:00 10 matt Silva 2020-04-18 2020-04-18 Outpatient STLMLC STLMLC [id number] Common 00:00:00 00:00:00 [place] 2020-04-11 2020-04-12 Outpatient nullFlavo MNA [id number] Memoria 16:00:00 05:59:59 r Neurology 09 l Ean Silva 2020-04-11 2020-04-12 Outpatient nullFlavo MNA [id number] Memoria 16:00:00 05:59:59 r Neurology 09 l Ean Silva 2020-04-11 2020-04-11 [facility] [id number] 10:00:00 23:59:59 David 09 [place] 2020-04-11 2020-04-11 Outpatient MHIE MHIE [id number] Memoria 10:00:00 10:00:00 09 l Ricardo 2020-03-29 2020-03-30 Outpatient nullFlavo MNA [id number] Memoria 20:00:00 05:59:59 r Neurology 08 l Ean Silva 2020-03-29 2020-03-30 Outpatient nullFlavo MNA [id number] Memoria 20:00:00 05:59:59 r Neurology 08 l Ean Silva 2020-03-29 2020-03-29 [facility] [id number] 14:00:00 23:59:59 David 08 [place] 2020-03-29 2020-03-29 Outpatient MHIE MHIE [id number] Memoria 14:00:00 14:00:00 08 l Ricardo 2020-03-22 2020-03-22 Outpatient STLMLC STLC [id number] Common 00:00:00 00:00:00 [place] 2020-03-16 2020-03-16 Outpatient STLMLC STLC [id number] Common 00:00:00 00:00:00 [place] 2020-03-08 2020-03-08 Office Tung Isidro 1.2.840.1 [id number] Methodi 12:36:03 16:19:47 Visit Go 57429.1.[address] 3.430.2.7 Hospit a .3.909218 l .8 2020-03-08 2020-03-08 Travel 1.2.840.1 1.2.029.204 [id number] Methodi 00:00:00 00:00:[address] 3.430.2.7 0.2.7.3.698 [facility] .3.871553 084.8 l .8 2020-03-07 2020-03-07 Outpatient STLMLC STLMLC [id number] Common 00:00:00 00:00:00 [place] 2020-02-29 2020-03-01 Outpatient nullFlavo MNA [id number] Memoria 17:15:00 05:59:59 r Neurology 07 l [place] 2020-02-29 2020-03-01 Outpatient nullFlavo MNA [id number] Memoria 17:15:00 05:59:59 r Neurology 07 l [place] 2020-02-29 2020-02-29 [id number] 11:15:00 23:59:59 Davidgrayson Acharya 2020-02-29 2020-02-29 Outpatient MHIE MHIE [id number] Memoria 11:15:00 11:15:00 07 [place] 2020-02-21 2020-02-21 Outpatient STLMLC STLMLC [id number] Common 00:00:00 00:00:00 [place] 2020-02-17 2020-02-17 Outpatient STLMLC STLMLC [id number] Common 00:00:00 00:00:00 [place] 2020-02-12 2020-02-16 [facility] 1.2.840.1 [id number] Methodi 07:45:00 12:40:00 Encounter Yesi Maldonado 61537.1.1 695 3.430.2.7 Hospit a .3.701409 l .8 2020-02-15 2020-02-15 Ambulatory nullFlavo MNA [id number] Memoria 14:15:00 14:15:00 Pre-Reg r Neurology 06 l [place] 2020-02-15 2020-02-15 Ambulatory nullFlavo MNA [id number] Memoria 14:15:00 14:15:00 Pre-Reg r Neurology 06 l [place] 2020-02-15 2020-02-15 Outpatient MHIE MHIE [id number] Memoria 09:15:00 09:15:00 Natanael Silva 2020-02-15 2020-02-15 [facility] [id number] 09:15:00 09:15:00 David Acharya 2020-02-15 2020-02-15 Telephone Isidro Ruby 1.2.840.1 [id number] Methodi 00:00:00 00:00:[address] 3.430.2.7 Hospit a .3.997603 l .8 2020-02-13 2020-02-13 Orders Diogo Blandon 1.2.840.1 [id number] Methodi 00:00:00 00:00:[address] 3.430.2.7 Hospit a .3.399666 l .8 2020-02-11 2020-02-11 Telephone Isidro Ruby 1.2.840.1 [id number] Methodi 00:00:00 00:00:[address] 3.430.2.7 Hospit a .3.717578 l .8 2020-02-09 2020-02-09 Outpatient STLMLC STLMLC [id number] Common 00:00:00 00:00:00 [place] 2020-02-03 2020-02-08 [facility] Kim Guevara 1.2.840.1 [id number] Methodi 14:30:00 18:40:00 Encounter Karen Pineda 62071.1.[address] [facility] 3.430.2.7 Hospita .3.992751 l .8 2020-02-07 2020-02-07 Telephone Ricky 1.2.840.1 [id number] Methodi 00:00:00 00:00:[address] 3.430.2.7 Hospit a .3.612332 l .8 2020-02-03 2020-02-03 Telephone Ricky 1.2.840.1 [id number] Methodi 00:00:00 00:00:[address] 3.430.2.7 Hospit a .3.582865 l .8 2020-01-17 2020-01-17 [facility] [id number] Common 00:00:00 00:00:00 [place] 2019-12-14 2019-12-14 [facility] [id number] Common 10:48:00 10:48:[address] [facility] 2019-11-23 2019-11-23 [facility] [id number] Common 09:00:00 09:00:[address] [facility] 2019-11-23 2019-11-23 [facility] [id number] Common 08:05:00 08:05:00 t [facility] [address] [facility] 2019-10-15 2019-10-15 [facility] [id number] Common 08:44:00 08:44:[address] [facility] 2019-09-07 2019-09-07 [facility] [id number] Common 11:56:00 11:56:00 t [facility] [address] [facility] 2019-08-13 2019-08-13 [facility] [id number] Common 10:20:00 10:20:[address] [facility] 2019-08-12 2019-08-12 [facility] [id number] Common 09:49:00 09:49:[address] [facility] 2019-06-15 2019-06-15 [facility] [id number] Common 15:24:00 15:24:[address] [facility] 2019-06-09 2019-06-09 [facility] [id number] Common 08:40:00 08:40:[address] [facility] 2019-06-03 2019-06-03 [facility] [id number] Common 10:52:00 10:52:[address] [facility] 2019-05-28 2019-05-28 [facility] [id number] Common 16:20:00 16:20:[address] [facility] 2019-05-21 2019-05-23 Outside nullFlavo MNA [id number] Memoria 20:44:00 05:59:59 Medical r Neurology 00 l Records [place] 2019-05-21 2019-05-23 Outside nullFlavo MNA [id number] Memoria 20:44:00 05:59:59 Medical r Neurology 00 l Records Ean Lrann 2019-05-21 2019-05-22 Outpatient MHMISCHER MHMISCHER [id number] 14:44:00 23:59:59 00 2019-04-28 2019-04-28 Ambulatory nullFlavo MNA [id number] Memoria 19:00:00 19:00:00 Pre-Reg r Neurology 05 l [place] 2019-04-28 2019-04-28 Ambulatory nullFlavo MNA [id number] Memoria 19:00:00 19:00:00 Pre-Reg r Neurology 05 l [place] 2019-04-28 2019-04-28 Outpatient MHIE MHIE [id number] Memoria 13:00:00 13:00:00 05 l [place] 2019-04-28 2019-04-28 Outpatient FAYE ChungMISCHER MHMISCHER [id number] 13:00:00 13:00:00 David Rick Marck 2019-01-01 2019-01-01 Out[facility] [id number] Common 15:32:00 15:32:[address] [facility] 2018-12-31 2018-12-31 Out[facility] [id number] Common 09:55:00 09:55:[address] [facility] 2018-12-30 2018-12-30 Out[facility] [id number] Common 13:25:00 13:25:[address] [facility] 2018-12-30 2018-12-30 Out[facility] [id number] Common 08:00:00 08:00:[address] [facility] 2018-12-29 2018-12-29 Out[facility] [id number] Common 09:42:00 09:42:[address] [facility] 2018-12-23 2018-12-24 Outpatient nullFlavo MNA [id number] Memoria 18:15:00 04:59:59 r Neurology 04 l Ean Silva 2018-12-23 2018-12-24 Outpatient nullFlavo MNA [id number] Memoria 18:15:00 04:59:59 r Neurology 04 l Ean Silva 2018-12-23 2018-12-23 [id number] 13:15:00 23:59:59 David Catrina Acharya 2018-12-23 2018-12-23 Outpatient MHIE MHIE [id number] Memoria 13:15:00 13:15:00 Catrina Silva 2018-12-04 2018-12-04 Out[facility] [id number] Common 16:20:00 16:20:[address] [facility] 2018-11-30 2018-11-30 [facility] [id number] Common 10:08:00 10:08:00 t [facility]gent [facility] 2018-11-27 2018-11-28 Outpatient nullFlavo MNA [id number] Memoria 15:45:00 04:59:59 r Neurology 03 l Ean Silva 2018-11-27 2018-11-28 Outpatient nullFlavo MNA [id number] Memoria 15:45:00 04:59:59 r Neurology 03 l Ean Silva 2018-11-27 2018-11-27 [facility] [id number] 10:45:00 23:59:59 David Cecelia Acharya 2018-11-27 2018-11-27 [facility] [id number] Common 13:00:00 13:00:[address] [facility] 2018-11-27 2018-11-27 Outpatient MHIE MHIE [id number] Memoria 10:45:00 10:45:00 03 matt [place] 2018-10-29 2018-10-29 [facility] [id number] Common 10:40:00 10:40:[address] [facility] 2018-10-16 2018-10-17 Outpatient nullFlavo MNA [id number] Memoria 14:00:00 04:59:59 r Neurology 02 matt [place] 2018-10-16 2018-10-17 Outpatient nullFlavo MNA [id number] Memoria 14:00:00 04:59:59 r Neurology 02 matt [place] 2018-10-16 2018-10-16 Outpatient DEDE ChungSCHER MHMISCHER [id number] 09:00:00 23:59:59 David 02 [place] 2018-10-16 2018-10-16 Outpatient MHIE MHIE [id number] Memoria 09:00:00 09:00:00 02 [place] 2018-10-02 2018-10-03 Outpatient nullFlavo MNA [id number] Memoria 20:00:00 04:59:59 r Neurology 01 matt [place] 2018-10-02 2018-10-03 Outpatient nullFlavo MNA [id number] Memoria 20:00:00 04:59:59 r Neurology 01 l [place] 2018-10-02 2018-10-02 Outpatient FAYE ChungMISCHER MHMISCHER [id number] 15:00:00 23:59:59 David 01 Marck 2018-10-02 2018-10-02 Outpatient MHIE MHIE [id number] Memoria 15:00:00 15:00:00 01 matt [place] 2018-10-01 2018-10-02 Outpatient nullFlavo MNA [id number] Memoria 13:15:00 04:59:59 r Neurology 00 [place] 2018-10-01 2018-10-02 Outpatient nullFlavo MNA [id number] Memoria 13:15:00 04:59:59 r Neurology 00 l Ean [place] 2018-10-01 2018-10-[address] [facility] [id number] 08:15:00 23:59:59 David Jessica Acharya 2018-10-01 2018-10-01 Outpatient FAYEIE FAYELAURENCE [id number] Memoria 08:15:00 08:15:00 00 l [place] 2018-09-30 2018-09-30 Out[facility] [id number] Common 13:00:00 13:00:[address] [facility] 2018-08-31 2018-08-31 Out[facility] [id number] Common 11:00:00 11:00:[address] [facility] 2018-07-27 2018-07-27 Out[facility] [id number] Common 13:54:00 13:54:[address] [facility] 2018-07-23 2018-07-23 Out[facility] [id number] Common 08:53:00 08:53:[address] [facility] 2018-07-23 2018-07-23 Out[facility] [id number] Common 08:15:00 08:15:[address] [facility] 2018-06-22 2018-06-22 Out[facility] [id number] Common 10:30:00 10:30:[address] [facility] 2018-05-04 2018-05-04 Out[facility] [id number] Common 12:00:00 12:00:[address] [facility] 2018-04-02 2018-04-02 Out[facility] [id number] Common 09:00:00 09:00:[address] [facility] Results Test Description Test Time Test Comments Results Result Comments Source SARS-COV-2(COVID19),NAAT 2021-06-12 00:00:00 Test Item Value Reference Range Interpretation Comme nts SARS-CoV-2 INTERPRETATION (test code = 44609-1) NEGATIVE SEE NO TE SOURCE (test code = 60999-1) NOT SPECIFIED POCT MOLECULAR [id number] 17:13:56 Test Item Value Reference Range Interpretation Comments POCT Molecular FluA (test code = Negative Negative 51345-9) POCT Molecular FluB (test code = Negative Negative 97696-9) Lab Interpretation (test code = Normal 84514-1) [facility] [id number] 17:04:30 Test Item Value Reference Range Interpretation Comments POCT Molecular Strep (test code = Negative Negative 97254-5) Lab Interpretation (test code = Normal 54787-6) [facility] Interpretation Antibody Screen Negative 2021-03-31 02:35:52 Test Item Value Reference Range Interpretation Comments TMP Auto Neg At the present ABSC Interp time, patient (test code = plasma shows no JUDE ANDO 7535) evidence of RBC OTONIEL,Dic tated by: Dom Yip ed Date/Time: 03.21 20:35 PM [employer]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 Interpretation Antibody Screen [id number] 02:35:52 Test Item Value Reference Range Interpretation Comments TMP Auto Neg At the present ABSC Interp time, patient (test code = plasma shows no JUDE MILLER 7535) evidence of RBC OTONIEL,Dic tated by: alloantibodies. VALERIE FREDERICK,Dictat ed Date/Time: 03.21 20:35 PM AUTOMOBILE SERVICE WRITER Transcribed Henrik e/Time: 03.30.2021 20:3 5 PM CSTElectronical ly Signed By: JUDE FREDERICK, on 03.30.2021 20:3 5 PM [facility] CenterAntibody [id number] 21:46:12 Test Item Value Reference Range Interpretation Comments ABSC. (test code = 890-4) Negative ABSC [facility] CenterAntibody [id number] 21:46:12 Test Item Value Reference Range Interpretation Comments ABSC. (test code = 890-4) Negative ABSC [facility] CenterAntibody [id number] 21:46:12 Test Item Value Reference Range Interpretation Comments ABSC. (test code = 890-4) Negative ABSC [facility] CenterABORh2021-12-10 21:46:11 Test Item Value Reference Range Interpretation Comments ABORh. (test code = 882-1) A POS [facility] CenterABORh2021-12-10 21:46:11 Test Item Value Reference Range Interpretation Comments ABORh. (test code = 882-1) A POS [facility] CenterABORh2021-12-10 21:46:11 Test Item Value Reference Range Interpretation Comments ABORh. (test code = 882-1) A POS [facility] CenterClot Expiration [id number] 21:45:59 Test Item Value Reference Range Interpretation Comments T & S Expiration (test code = 04/02/2021 53) [facility] CenterClot Expiration [id number] 21:45:59 Test Item Value Reference Range Interpretation Comments T & S Expiration (test code = 04/02/20215317) [facility] CenterClot Expiration [id number] 21:45:59 Test Item Value Reference Range Interpretation Comments T & S Expiration (test code = 04/02/2021 53) [facility] t(15;17) PML-LEN Quantitative PCR Collection, [id number] 19:40:53 Test Item Value Reference Range Interpretation Comments Molecular Diagnostics (Received) (test Yes code = 8400) [facility] t(15;17) PML-LEN Quantitative PCR Collection, [id number] 19:40:53 Test Item Value Reference Range Interpretation Comments Molecular Diagnostics (Received) (test Yes code = 8400) [facility] t(15;17) PML-LEN Quantitative PCR Collection, [id number] 19:40:53 Test Item Value Reference Range Interpretation Comments Molecular Diagnostics (Received) (test Yes code = 8400) [facility] CenterFractionated [id number] 18:26:21 Test Item Value Reference Range Interpretation [...] above 28 g/L. [Automated message] The system [employer] generated this result transmitted ref erence range: [...] par ameters are outside rep ortable range [facility] CenterFractionated [id number] 18:26:21 Test Item Value Reference Range Interpretation [...] above 28 g/L. [Automated message] The system [employer] generated this result transmitted ref erence range: [...] par ameters are outside rep ortable range [facility] CenterFractionated [id number] 18:26:21 Test Item Value Reference Range Interpretation [...] above 28 g/L. [Automated message] The system whic h generated this result [...] par ameters are outside rep ortable range [facility] CenterGlucose, [id number] 18:26:19 Test Item Value Reference Range Interpretation Comments Glucose Random (test 62 mg/dL 70-199 L Effecti ve 11/15/15, code = 9360) the glucose reference intervals have been updated ba sed on [place] [employer] guidelines (Standards of Medical Care [...] Track Lab Interpretation Abnormal (test code = 45383-2) [facility] CenterGlucose, [id number] 18:26:19 Test Item Value Reference Range Interpretation Comments Glucose Random (test 62 mg/dL 70-199 L Effecti ve 11/15/15, code = 9360) the glucose reference intervals have been updated ba sed on [place] [employer] guidelines (Standards of Medical Care [...] Track Lab Interpretation Abnormal (test code = 36108-2) [facility] CenterGlucose, [id number] 18:26:19 Test Item Value Reference Range Interpretation Comments Glucose Random (test 62 mg/dL 70-199 L Effecti ve 11/15/15, code = 9360) the glucose reference intervals have been updated ba sed on [place] [employer] guidelines (Standards of Medical Care [...] Track Lab Interpretation Abnormal (test code = 20382-9) [facility] CenterPhosphorus [id number] 18:26:17 Test Item Value Reference Range Interpretation Comments Phosphorus (test code = 3.8 mg/dL 2.5-4.5 6817) HAL (test code = HAL) Schedule in Fast Track [facility] CenterPhosphorus [id number] 18:26:17 Test Item Value Reference Range Interpretation Comments Phosphorus (test code = 3.8 mg/dL 2.5-4.5 6817) HAL (test code = HAL) Schedule in Fast Track [facility] CenterPhosphorus [id number] 18:26:17 Test Item Value Reference Range Interpretation Comments Phosphorus (test code = 3.8 mg/dL 2.5-4.5 6817) HAL (test code = HAL) Schedule in Fast Track [facility] CenterGlomerular Filtration Rate 2021-03-30 18:26:16 Test Item [...] code Schedule in Fast = HAL) Track [facility] CenterGlomerular Filtration Rate 2021-03-30 18:26:16 Test Item [...] GFR mL/min/1.73 m21 Normal or high GFR >= 902 Mildly decrease d GFR 60-893a Mildly to [...] code Schedule in Fast = HAL) Track [facility] CenterGlomerular Filtration Rate 2021-03-30 18:26:16 Test Item [...] and older. Acco rding to the [employer]'s Ki dney Disease Outcome Quality [...] and older. Acco rding to the [employer]'s Ki dney Disease Outcome Quality [...] code Schedule in Fast = HAL) Track [facility] CenterLDH2021-12-10 18:26:15 Test Item Value Reference Range Interpretation Comments LDH (test code 162 U/L 135-214 Results great er than = 6111) 1651 U/L may no t be reliable due to matrix effect with ext ended dilution as it exceeds the manufacture r s recommended l imit. Caution should be exercised when interpreting grant ch values and done in conjunction [facility] clinical contex t. HAL (test code Schedule in Fast = HAL) Track [facility] CenterLDH2021-12-10 18:26:15 Test Item Value Reference Range Interpretation Comments LDH (test code 162 U/L 135-214 Results great er than = 6111) 1651 U/L may no t be reliable due to matrix effect with ext ended dilution as it exceeds the manufacture r s recommended l imit. Caution should be exercised when interpreting grant ch values and done in conjunction [facility] clinical contex t. HAL (test code Schedule in Fast = HAL) Track [facility] CenterLDH2021-12-10 18:26:15 Test Item Value Reference Range Interpretation Comments LDH (test code 162 U/L 135-214 Results great er than = 6111) 1651 U/L may no t be reliable due to matrix effect with ext ended dilution as it exceeds the manufacture r s recommended l imit. Caution should be exercised when interpreting grant ch values and done in conjunction [facility] clinical contex t. HAL (test code Schedule in Fast = HAL) [facility] [id number] 18:26:14 Test Item Value Reference Range Interpretation Comments Uric Acid (test code = 3.4 mg/dL 2.4-5.7 7955) HAL (test code = HAL) Schedule in Fast Track [facility] CenterUric [id number] 18:26:14 Test Item Value Reference Range Interpretation Comments Uric Acid (test code = 3.4 mg/dL 2.4-5.7 7955) HAL (test code = HAL) Schedule in Fast Track [facility] CenterUric [id number] 18:26:14 Test Item Value Reference Range Interpretation Comments Uric Acid (test code = 3.4 mg/dL 2.4-5.7 7955) HAL (test code = HAL) Schedule in Fast Track [facility] CenterCalcium [id number] 18:26:13 Test Item Value Reference Range Interpretation Comments Calcium Lvl (test code 8.8 mg/dL 8.4-10.2 = 5258) HAL (test code = HAL) Schedule in Fast Track [facility] CenterCalcium [id number] 18:26:13 Test Item Value Reference Range Interpretation Comments Calcium Lvl (test code 8.8 mg/dL 8.4-10.2 = 5258) HAL (test code = HAL) Schedule in Fast Track [facility] CenterCalcium [id number] 18:26:13 Test Item Value Reference Range Interpretation Comments Calcium Lvl (test code 8.8 mg/dL 8.4-10.2 = 5258) HAL (test code = HAL) Schedule in Fast Track [facility] CenterTotal [id number] 18:26:12 Test Item Value Reference Range Interpretation Comments Total Protein (test 6.8 g/dL 6.4-8.3 code = 7649) HAL (test code = HAL) Schedule in Fast Track [facility] CenterTotal [id number] 18:26:12 Test Item Value Reference Range Interpretation Comments Total Protein (test 6.8 g/dL 6.4-8.3 code = 7649) HAL (test code = HAL) Schedule in Fast Track [facility] CenterTotal [id number] 18:26:12 Test Item Value Reference Range Interpretation Comments Total Protein (test 6.8 g/dL 6.4-8.3 code = 7649) HAL (test code = HAL) Schedule in Fast Track [facility] CenterAlbumin [id number] 18:26:11 Test Item Value Reference Range Interpretation Comments Albumin Lvl (test 4.5 See_Comment [Automate d message] code = 4763) The system NOWBOXic h generated this result transmit leon reference range : 3.5 - 5.2 gm/dL. Th e reference range was not used to interpret this result as normal/abnormal . HAL (test code = Schedule in Fast HAL) Track [facility] CenterAlbumin [id number] 18:26:11 Test Item Value Reference Range Interpretation Comments Albumin Lvl (test 4.5 See_Comment [Automate d message] code = 4763) The system [employer] generated this result transmit leon reference range : 3.5 - 5.2 gm/dL. Th e reference range was not used to interpret this result as normal/abnormal . HAL (test code = Schedule in Fast HAL) Track [facility] CenterAlbumin [id number] 18:26:11 Test Item Value Reference Range Interpretation Comments Albumin Lvl (test 4.5 See_Comment [Automate d message] code = 4763) The system [employer] generated this result transmit leon reference range : 3.5 - 5.2 gm/dL. Th e reference range was not used to interpret this result as normal/abnormal . HAL (test code = Schedule in Fast HAL) Track [facility] CenterMagnesium [id number] 18:26:10 Test Item Value Reference Range Interpretation Comments Magnesium (test code = 2.2 mg/dL 1.6-2.6 6359) HAL (test code = HAL) Schedule in Fast Track [facility] CenterMagnesium [id number] 18:26:10 Test Item Value Reference Range Interpretation Comments Magnesium (test code = 2.2 mg/dL 1.6-2.6 6359) HAL (test code = HAL) Schedule in Fast Track [facility] CenterMagnesium [id number] 18:26:10 Test Item Value Reference Range Interpretation Comments Magnesium (test code = 2.2 mg/dL 1.6-2.6 6359) HAL (test code = HAL) Schedule in Fast Track The [facility] CenterElectrolyte Zfcgj1811-53-87 18:26:09 Test Item Value Reference Range Interpretation [...] code = Schedule in Fast HAL) Track [facility] [place] Hnpbq0019-80-17 18:26:09 Test Item Value Reference Range Interpretation [...] Gap (test 10 See_Comment [Automated code = 6425) message] The sy stem which generated this result transmitted reference range : 4 - 14 mEq/L. The reference range was not used to interpret this result as normal/abnormal . HAL (test code = Schedule in Fast HAL) Track [facility] CenterElectrolyte Qanjr1968-45-82 18:26:09 Test Item Value Reference Range Interpretation [...] CO2 (test code = 27 See_Comment [Automated 1852) message] The sy stem which generated this [...] code = Schedule in Fast HAL) Track [facility] CenterAlkaline Acrvvgqfvzd5798-16-40 18:26:08 Test Item Value Reference Range Interpretation Comments Alk Phos (test code = 69 U/L 35-104 4768) HAL (test code = HAL) Schedule in Fast Track [facility] CenterAlkaline Kbzulgabsxk6549-96-72 18:26:08 Test Item Value Reference Range Interpretation Comments Alk Phos (test code = 69 U/L 35-104 4768) HAL (test code = HAL) Schedule in Fast Track [facility] CenterAlkaline Lqgfumdbmwt2368-32-52 18:26:08 Test Item Value Reference Range Interpretation Comments Alk Phos (test code = 69 U/L 35-104 4768) HAL (test code = HAL) Schedule in Fast Track [facility] CenterAlanine Uexmwazypajgvegl9122-24-76 18:26:07 Test Item Value Reference Range Interpretation Comments ALT (test code 17 U/L See_Comment [Automated m essage] = 4705) The system [employer] generated this result transmitted ref erence range: <=33. Th e reference range was not used to int erpret this result as normal/abnormal . HAL (test code Schedule in Fast = HAL) Track [facility] CenterAlanine Rwjkxthogxwtarpt8650-05-11 18:26:07 Test Item Value Reference Range Interpretation Comments ALT (test code 17 U/L See_Comment [Automated m essage] = 4705) The system [employer] generated this result transmitted ref erence range: <=33. Th e reference range was not used to int erpret this result as normal/abnormal . HAL (test code Schedule in Fast = HAL) Track [facility] CenterAlanine Haqnzultjibsbmwv1809-37-11 18:26:07 Test Item Value Reference Range Interpretation Comments ALT (test code 17 U/L See_Comment [Automated m essage] = 4705) The system [employer] generated this result transmitted ref erence range: <=33. Th e reference range was not used to int erpret this result as normal/abnormal . HAL (test code Schedule in Fast = HAL) Track [facility].Serum Hdoufaxlvb9803-05-16 18:26:06 Test Item Value Reference Range Interpretation Comments Creatinine (test code = 0.95 mg/dL 0.51-0.95 5399) HAL (test code = HAL) Schedule in Fast Track [facility].Serum Akfbukfnqf8369-21-36 18:26:06 Test Item Value Reference Range Interpretation Comments Creatinine (test code = 0.95 mg/dL 0.51-0.95 5399) HAL (test code = HAL) Schedule in Fast Track [facility].Serum Htxkllinth0144-52-57 18:26:06 Test Item Value Reference Range Interpretation Comments Creatinine (test code = 0.95 mg/dL 0.51-0.95 5399) HAL (test code = HAL) Schedule in Fast Track [facility] CenterBUN2021-12-10 18:26:04 Test Item Value Reference Range Interpretation Comments BUN (test code = 5055) 12 mg/dL 6- [facility] CenterBUN2021-12-10 18:26:04 Test Item Value Reference Range Interpretation Comments BUN (test code = 5055) 12 mg/dL 6- [facility] CenterBUN2021-12-10 18:26:04 Test Item Value Reference Range Interpretation Comments BUN (test code = 5055) 12 mg/dL 6- [facility] CenterDifferential2021-12-10 17:28:47 Test Item Value Reference Range Interpretation Comments Neutrophil % (test 75.3 % 42.0-66.0 H code = 40090-4) Lymphocyte % (test 16.8 % 24.0-44.0 L code = 737-7) Monocyte % (test code 6.3 % 2.0-7.0 = 744-3) Eosinophil % (test 0.8 % 1.0-4.0 L code = 713-8) Basophil % (test code 0.5 % 0.0-1.0 = 707-0) IGRE % (test code = 0.3 % 0.0-0.4 IGRE % c ount 67422-2) includes Metamyelocytes, Myelocytes, and Promyelocytes. Neutrophil Abs (test 7.10 K/uL 1.70-7.30 code = 753-4) Lymphocyte Abs (test 1.59 K/uL 1.00-4.80 code = 732-8) Monocyte Abs (test 0.59 K/uL 0.08-0.70 code = 743-5) Eosinophil Abs (test 0.08 K/uL 0.04-0.40 code = 712-0) Basophil Abs (test 0.05 K/uL 0.00-0.10 code = 705-4) IG Abs (test code = 0.03 K/uL 0.00-0.04 59448-8) HAL (test code = HAL) Schedule in Fast Track Lab Interpretation Abnormal (test code = 37026-2) [facility] CenterDifferential2021-12-10 17:28:47 Test Item Value Reference Range Interpretation Comments Neutrophil % (test 75.3 % 42.0-66.0 H code = 69956-7) Lymphocyte % (test 16.8 % 24.0-44.0 L code = 737-7) Monocyte % (test code 6.3 % 2.0-7.0 = 744-3) Eosinophil % (test 0.8 % 1.0-4.0 L code = 713-8) Basophil % (test code 0.5 % 0.0-1.0 = 707-0) IGRE % (test code = 0.3 % 0.0-0.4 IGRE % c ount 94053-4) includes Metamyelocytes, Myelocytes, and Promyelocytes. Neutrophil Abs (test 7.10 K/uL 1.70-7.30 code = 753-4) Lymphocyte Abs (test 1.59 K/uL 1.00-4.80 code = 732-8) Monocyte Abs (test 0.59 K/uL 0.08-0.70 code = 743-5) Eosinophil Abs (test 0.08 K/uL 0.04-0.40 code = 712-0) Basophil Abs (test 0.05 K/uL 0.00-0.10 code = 705-4) IG Abs (test code = 0.03 K/uL 0.00-0.04 95922-3) HAL (test code = HAL) Schedule in Fast Track Lab Interpretation Abnormal (test code = 78204-9) [facility] CsjhxqTwwmsuzymntl4261-83-38 17:28:47 Test Item Value Reference Range Interpretation Comments Neutrophil % (test 75.3 % 42.0-66.0 H code = 37299-4) Lymphocyte % (test 16.8 % 24.0-44.0 L code = 737-7) Monocyte % (test code 6.3 % 2.0-7.0 = 744-3) Eosinophil % (test 0.8 % 1.0-4.0 L code = 713-8) Basophil % (test code 0.5 % 0.0-1.0 = 707-0) IGRE % (test code = 0.3 % 0.0-0.4 IGRE % c ount 76063-0) includes Metamyelocytes, Myelocytes, and Promyelocytes. Neutrophil Abs (test 7.10 K/uL 1.70-7.30 code = 753-4) Lymphocyte Abs (test 1.59 K/uL 1.00-4.80 code = 732-8) Monocyte Abs (test 0.59 K/uL 0.08-0.70 code = 743-5) Eosinophil Abs (test 0.08 K/uL 0.04-0.40 code = 712-0) Basophil Abs (test 0.05 K/uL 0.00-0.10 code = 705-4) IG Abs (test code = 0.03 K/uL 0.00-0.04 71244-5) HAL (test code = HAL) Schedule in Fast Track Lab Interpretation Abnormal (test code = 31730-3) [facility] [place].LMX9021-25-02 17:28:40 Test Item Value Reference Range Interpretation Comments WBC (test code = 9.4 K/uL 4.0-11.0 6690-2) RBC (test code = 4.53 See_Comment [Automated 739-8) message] The sy stem which generated this result transmitted reference range : 4.00 - 5.50 M/u L. The reference r gee was not used to interpret this result as normal/abnormal . Hgb (test code = 13.0 See_Comment [Automated 288-7) message] The sy stem which generated this [...] RDW-SD (test code = 40.1 fL 35.1-46.3 56598-3) RDW-CV (test code = 12.3 % 12.0-15.5 [...] Track Lab Interpretation Abnormal (test code = 40640-0) [facility] [place].QYY5024-32-57 17:28:40 Test Item Value Reference Range Interpretation Comments WBC (test code = 9.4 K/uL 4.0-11.0 6690-2) RBC (test code = 4.53 See_Comment [Automated 789-8) message] The sy stem which generated this result transmitted reference range : 4.00 - 5.50 M/u L. The reference r gee was not used to interpret this result as normal/abnormal . Hgb (test code = 13.0 See_Comment [Automated 328-7) message] The sy stem which generated this [...] RDW-SD (test code = 40.1 fL 35.1-46.3 31334-5) RDW-CV (test code = 12.3 % 12.0-15.5 [...] Track Lab Interpretation Abnormal (test code = 98557-8) [facility] [place].DIM9674-22-73 17:28:40 Test Item Value Reference Range Interpretation Comments WBC (test code = 9.4 K/uL 4.0-11.0 6690-2) RBC (test code = 4.53 See_Comment [Automated 959-8) message] The sy stem which generated this [...] (test code = 32.5 See_Comment [Automate d 404-4) message] The sy stem which generated this result transmitted reference range : 31.0 - 36.0 gm/ dL. The reference r gee was not used to interpret this result as normal/abnormal . RDW-SD (test code = 40.1 fL 35.1-46.3 11904-7) RDW-CV (test code = 12.3 % 12.0-15.5 [...] Track Lab Interpretation Abnormal (test code = 59633-2) [facility] [place] GRP A STREP (MOLECULAR) 2021-03-16 16:11:00 Test Item Value Reference Range Interpretation Comments POCT GP A STREP (test negative Negative - code = 01545-0) Negative HAL (test code = HAL) accurate development and interpretation of all internal controls Lab Interpretation Normal (test code = 72893-8) [facility] W KUHUHZGK5203-95-92 02:55:38 No acute abdominopelvic process. Preliminary Report [...] reviewed this study and agree with theabove report.[facility] CenterXR CHEST 1 QU4144-13-02 02:48:05 No radiographic evidence of acute cardiopulmonary [...] have reviewed this study and agreewith theabove report.[facility] CenterTROPONIN [id number] 02:05:12 Test Item Value Reference Interpretation Comments Range TROPONIN I (test 0.014 ng/mL See_Comment [Automated code = 6974417258) message] The system which generated this result [...] biotin. Lab Interpretation Normal (test code = 29138-2) [facility]. METABOLIC PANEL (08787)2020-12-05 01:53:53 Test Item Value Reference Range Interpretation Comments NA (test code = 139 mmol/L 135-145 8583929430) K (test code = 3.7 mmol/L 3.5-5.0 0559884138) CL (test code = 109 mmol/L 98-108 H 5360740969) CO2 TOTAL (test code = 22 mmol/L 23-31 L 1100947252) AGAP (test code = 2-16 4627698126) BUN (test code = 17 mg/dL 7-23 9183732358) GLUCOSE (test code = 99 mg/dL 70-110 3276914122) CREATININE (test code = 1.14 mg/dL 0.50-1.04 H 5811723107) TOTAL BILI (test code = 0.3 mg/dL 0.1-1.3 8104631946) CALCIUM (test code = 8.7 mg/dL 8.6-10.6 1537839582) T PROTEIN (test code = 7.4 g/dL 6.3-8.2 1020007884) ALBUMIN (test code = 4.7 g/dL 3.5-5.0 4714699351) ALK PHOS (test code = 62 U/L 34-122 7842495261) ALTv (test code = 16 U/L 5-35 1742-6) AST(SGOT) (test code = 18 U/L 13-40 6257690942) eGFR (test code = mL/min/1.73m2 5845435964) HAL (test code = HAL) Association of [...] tests). Lab Interpretation Abnormal (test code = 47934-3) [facility] CenterLIPASE2021-08-17 01:53:12 Test Item Value Reference Range Interpretation Comments LIPASE (test code = 7862408237) 101 U/L 0-220 Lab Interpretation (test code = Normal 50150-8) [facility] CenterURINALYSIS2021-08-17 01:52:17 Test Item Value Reference Range Interpretation Comments APPEARANCE (test code = Cloudy Clear A 5070971413) COLOR (test code = Yellow Yellow 6408045186) PH (test code = 4.8-8.0 2762288659) SP GRAVITY (test code = 1.003-1.030 9252915966) GLU U QUAL (test code = Normal Normal 9818223291) BLOOD (test code = Negative Negative 7805502105) KETONES (test code = Negative Negative 2468845382) PROTEIN (test code = Negative Negative 2887-8) UROBILIN (test code = 4.0 mg/dL Normal A 1286005809) BILIRUBIN (test code = Negative Negative 1394540079) NITRITE (test code = Negative Negative 4444649091) LEUK REKHA (test code = Negative Negative 5798853851) RBC/HPF (test code = See_Comment [Autom ated message] 8907728043) The system [employer] generated this result transmit leno reference range : 0 - 3 HPF. The refe rence range was not u sed to interpret th is result as normal/abnormal . WBC/HPF (test code = <1 See_Comment [Autom ated message] 5722435015) The system [employer] generated this result transmit leon reference range : 0 - 5 HPF. The refe rence range was not u sed to interpret th is result as normal/abnormal . BACTERIA (test code = Many Negative A 0560447922) MUCOUS (test code = Slight Negative LPF A 8118283457) AMORPHOUS (test code = Moderate Rare HPF A 3819351990) SQ EPITH (test code = HPF 5576103746) Lab Interpretation (test Abnormal code = 62514-5) [facility] WITH YTMN4955-24-30 01:42:11 Test Item Value Reference Range Interpretation [...] RDW-SD (test code = 41.1 fL 39.0-49.9 42125-1) RDW-CV (test code = 13.5 % 12.0-15.5 788-0) PLT (test code = See_Comment [Automated 777-3) message] The sy stem which generated this result transmitted reference range : 166 - 358 10*3/ ?L. The reference r gee was not used to interpret this result as normal/abnormal . MPV (test code = 12.3 fL 9.5-12.9 23620-9) NRBC/100 WBC (test See_Comment [Automat ed code = 8188242169) message] The system which generated this result transmitted reference range : 0.0 - 10.0 /100 WBCs. The refer ence range was not u sed to interpret th is result as normal/abnormal . NRBC x10^3 (test code <0.01 See_Comment [Auto mated = 2909182920) message] The s ystem which generated this result transmitted reference range : 10*3/?L. The reference range was not used to interpret this result as normal/abnormal . GRAN MAT (NEUT) % 54.5 % (test code = 770-8) IMM GRAN % (test code 0.40 % = 0510610962) LYMPH % (test code = 33.6 % 736-9) MONO % (test code = 8.5 % 5905-5) EOS % (test code = 2.4 % 713-8) BASO % (test code = 0.6 % 706-2) GRAN MAT x10^3(ANC) 2.69 10*3/uL 1.88-7.09 (test code = 6399865533) IMM GRAN x10^3 (test <0.03 0.00-0.06 code = 1759305029) LYMPH x10^3 (test code 1.66 10*3/uL 1.32-3.29 = 731-0) MONO x10^3 (test code 0.42 10*3/uL 0.33-0.92 = 742-7) EOS x10^3 (test code = 0.12 10*3/uL 0.03-0.39 711-2) BASO x10^3 (test code 0.03 10*3/uL 0.01-0.07 = 704-7) Lab Interpretation Abnormal (test code = 27966-2) [facility] CenterPOCT NMYB0986-77-70 01:31:00 Test Item Value Reference Range Interpretation Comments POCT PREG (test code = 1605) negative On board controls acceptable with present C Line (test code = 3574) POCT PREG LOT # (test code = 3575) [id number] POCT PREG TEST DATE (test 04/20/22 code = 3576) Lab Interpretation (test code = Normal 26741-6) [facility] GRP A STREP (MOLECULAR)2020-12-04 00:43:00 Test Item Value Reference Range Interpretation Comments POCT GP A STREP (test code = Negative Negative - Negative 33952-1) Lab Interpretation (test code = Normal 95762-8) [facility] GRP A STREP (MOLECULAR)2020-12-04 00:43:00 Test Item Value Reference Range Interpretation Comments POCT GP A STREP (test code = Negative Negative - Negative 54053-8) Lab Interpretation (test code = Normal 88690-3) [facility] Thoracic Spine W Drlnmrpa8649-38-22 23:13:41EXAMINATION: MRI THORACIC SPINE W CONTRAST CLINICAL [...] significant spinal canal or neural foraminal stenosis.[id number]_PS02 [facility] Thoracic Spine W Ndemqysz7002-76-22 23:13:41EXAMINATION: MRI THORACIC SPINE W CONTRAST CLINICAL [...] neural foraminal stenosis. [id number]_PS02 Interface, Radiology Results - 06/06/2020 5:16 PM [...] [facility] Cervical Spine W Dnyhdhiw6219-83-08 23:08:17EXAMINATION: MRI CERVICAL SPINE W CONTRAST CLINICAL [...] No enhancing lesion identified. [facility]-[id number] Interface, Radiology Results 06/06/2020 5:11 PM CST [...] cervical spine abnormality identified. No enhancing lesion identified.[facility]-[id number] HospitalMRI Cervical Spine W Contrast 2020-06-06 23:08:17EXAMINATION: [...] No enhancing lesion identified. [facility]-2U [id number] Interface, Radiology Results - 06/06/2020 5:11 PM [...] cervical spine abnormality identified. No enhancing lesion identified.[facility]-[id number] [facility] Brain W Wo Fbwgxody6290-05-99 22:41:58EXAMINATION: MRI BRAIN W WO CONTRAST CLINICAL [...] of demyelinating lesion or other acute intracranial abnormality.1M2RAD_PS02[facility] Brain W Wo Dzjfftcr1254-50-80 22:41:58EXAMINATION: MRI BRAIN W WO CONTRAST CLINICAL [...] other acute intracranial abnormality.[id number]_PS02[facility]CT [facility] Wo Pmjjmzbm6877-63-85 18:08:03 EXAMINATION: CT CHEST WO CONTRAST HISTORY: [...] this is compatible with mild Covid pneumonia. [facility]-[id number] Interface, Radiology Results 06/06/2020 12:11 PM CST [...] findings, this is compatible with mild Covid pneumonia.[facility]3LR92192RDCbsdhxgfkChildress Regional [facility] Center Chest Wo Tlahhnuh2464-15-30 18:08:03EXAMINATION: CT CHEST WO CONTRAST HISTORY: COVID-19 [...] this is compatible with mild Covid pneumonia. [id number] Interface, Radiology Results Incoming - 06/06/2020 12:11 [...] compatible with mild Covid pneumonia.[facility]-[id number] [facility] jmkdpnt7157-19-26 18:51:05 Test Item Value Reference Range Interpretation Comments Urine culture (test SEE COMMENT Bacteriu kieran screen code = 7949724) negative. [facility] mnenfai0737-88-00 18:51:05 Test Item Value Reference Range Interpretation Comments Urine culture (test SEE COMMENT Bacteriu kieran screen code = 1124657) negative. [facility] vwkdole2853-49-80 18:51:05 Test Item Value Reference Range Interpretation Comments Urine culture (test SEE COMMENT Bacteriu kieran screen code = 9484535) negative. [facility] RNA [Presence] in Respiratory specimen by SARI with probe bvdivzvdk4089-35-84 18:31:32 Test Item Value Reference Range Interpretation Comments SARS-CoV-2 (COVID-19) RNA [Presence] Detected Not-Detected in Respiratory specimen by SARI with probe detection (test code = 08075-0) [facility], Optic Nerve - SY9485-63-34 19:34:42Isidro Ruby MD - 05/24/2020 5:54 PM [facility]ST [facility] - ES1912-51-27 19:34:42LeIsidro poon MD - 05/24/2020 5:54 PM CST [facility], Extended - HN9411-46-86 19:34:39LeIsidro poon MD - 05/24/2020 5:54 PM CST [facility], Extended - ZC0522-51-01 19:34:39LeIsidro poon MD - 05/24/2020 5:54 PM CST [facility]3 in 1 Ehwymai9641-66-19 16:07:52 Test Item Value Reference Range Interpretation Comments SUPPLIER NAME (test XMED Oxygen and code = 6415) Medical SUPPLIER PHONE (test [phone] code = 6416) ORDER STATUS (test code Delivery Successful = 6417) DELIVERY NOTE (test code = 6419) REQUESTED DELIVEY DATE 02/16/2020 (test code = 6420) ITEM DESCRIPTION (test 3 in 1 Commode Qty : 1 code = 6423) ACTUAL DELIVERY DATE 02/16/2020 (test code = 6422) [facility]3 in 1 Lnsijvf0867-65-49 16:07:52 Test Item Value Reference Range Interpretation Comments SUPPLIER NAME (test [employer]MED [employer] and code = 6415) Medical SUPPLIER PHONE (test [phone] code = 6416) ORDER STATUS (test code Delivery Successful = 6417) DELIVERY NOTE (test code = 6419) REQUESTED DELIVEY DATE 02/16/2020 (test code = 6420) ITEM DESCRIPTION (test 3 in 1 Commode Qty : 1 code = 6423) ACTUAL DELIVERY DATE 02/16/2020 (test code = 6422) [facility] General Gbhywcs4046-43-83 18:23:11Electromyogram and NCS ReportFORMERLY [facility] Neurological Doqbeiwbl3154Xrmx,WP11,[place],[id number]: F : Patient: Snow Argueta Physician: Nicolasa [...] Site: Wrist Pk Lat (ms) Amp (uV)Stim Nxho1gi dig 2.5 21.0 Sensory Nerve Study Right [...] Left Tibial Nerve Right Tibial NerveEMG General Zkpmfpe7747-54-54 18:23:11Electromyogram and NCS ReportFORMERLY [facility] Neurological Dhsewqrhy2542Umbq,11,[place], [place]: F: Patient: Snow Argueta Physician: Nicolasa Walters [...] Site: Wrist Pk Lat (ms) Amp (uV)Stim Koyz5yv dig 2.5 21.0 Sensory Nerve Study Right [...] Lat (ms) Amp (uV)Stim Site 4.3 7.3 F- Wave Study Right Median NerveRec Site: APB LatencyStim [...] Left Tibial Nerve Right Tibial NerveVisual evoked zdedmfvwqc3358-50-37 15:07:24 PATTERN REVERSAL VISUAL EVOKED POTENTIAL REPORT Patient Name: Snow Argueta Date of : 1985Gender: female Date of Procedure: 02/14/2020 IndicationVision loss FindingsPattern reversal visual ev oked potentials were obtained following independent left and right full field monocular stimulation.YjzE368 absolute latencies were 99.8 msec and 102.6 msec following independent left and right eye stimulation. All interpeak latencies and waveform morphologies were normal. ImpressionThis is a normal study. ICD10 Code/Diagnosis: Z80Sqyxct evoked fbukhzkczh9455-90-71 15:07:24 PATTERN REVERSAL VISUAL EVOKED POTENTIAL REPORT Patient Name: Snow Argueta Date of : 1985 Gender: female Date of Procedure: 02/14/2020 IndicationVision loss FindingsPattern reversal visual evoked potentials were obtained following independent left and right full field monocular stimulation. NgbA218 absolute latencies were 99.8 msec and 102.6 msec following independent left and right eye stimulation. All interpeak latencies and waveform morphologies were normal. ImpressionThis is a normal study. ICD10 Code/Diagnosis: G35MRI Lumbar Spine W Wo Qrpjftse7166-53-51 16:16:59EXAMINATION: MRI LUMBAR SPINE W WO CONTRAST [...] the right. Recommend correlation to radiculopathy distribution. [facility]- [id number] Interface, Radiology Results - 02/13/2020 11:20 AM CDT EXAMINATION:MRI LUMBAR [...] Recommend correlation to radiculopathy distribution.[facility]-[id number] [facility] Lumbar Spine W Wo Puswxmat3733-20-60 16:16:59EXAMINATION: MRI LUMBAR SPINE W WO CONTRAST [...] the right. Recommend correlation to radiculopathy distribution. [facility]- [id number] Interface, Radiology Results - 02/13/2020 11:20 AM CDT EXAMINATION:MRI LUMBAR [...] Recommend correlation to radiculopathy distribution.[facility]-[id number] [facility] Brain Venogram 2020-02-13 14:57:03EXAM: MRI BRAIN VENOGRAM CLINICAL HISTORY: Headache chronic normal neuro exam TECHNIQUE: Head MR venogram using 2D rmwy-ag-iceegv technique with multi-planar MIP and 3D reconstruction. [...] sinus venous thrombosis. 1M2RAD_PS01Hm Interface, Radiology Results 02/13/2020 10:00 AM CDT EXAM: MRI BRAIN VENOGRAMCLINICAL HISTORY: Headache chronic normal neuro examTECHNIQUE: Head MR venogram using 2D hjzb-dy-rrohpi technique with multi- planar MIP and 3D [...] no definite evidence of dural sinus venous thrombosis.1M2RAD_PS01[facility] 2020-02-13 14:57:03EXAM: MRI BRAIN VENOGRAM CLINICAL HISTORY: Headache chronic normal neuro exam TECHNIQUE: Head MR venogram using 2D xnjg-ph-mobqjh technique with multi-planar MIP and 3D reconstruction. [...] sinus venous thrombosis. 1M2RAD_PS01Hm Interface, Radiology Results 02/13/2020 10:00 AM CDT EXAM: MRI BRAIN VENOGRAMCLINICAL HISTORY: Headache chronic normal neuro examTECHNIQUE: Head MR venogram using 2D jdkn-sd-xhltvq technique with multi- planar MIP and 3D [...] no definite evidence of dural sinus venous thrombosis.1M2RAD_PS01Methodi HospitalVENIPUNC NEED PHYS SKILL,DX OR NZ6649-65-71 15:39:11CFamilia hickey RN 02/08/2020 10:40 AMMidline Date/Time: [...] Flat Vessel Size (mm): 5 Indication: Known roasterman IV therapy Location: Left basilic Device Type: Non-valved Catheter Lumen(s): Single lumen Catheter size: 3 Fr Catheter to vein ratio: 24%MidLine Characteristics: Catheter Brand: SL PROVENA MIDLINE Internal CatheterLength (cm): 12 Total Catheter Length (cm): 12 Catheter Lot Number: [id number] Catheter Expiration Date: 2Procedure details: Landmarks identified: [...] immediate complications VENIPUNC NEED PHYS SKILL,DX OR [id number] 15:39:11CFamilia hickey RN 02/08/2020 10:40 AMMidline Date/Time: 02/08/2020 10:39 AMPerformed by: Familia Colon R NAuthorized by: Michael Maddox MD Consent: [...] Flat Vessel Size (mm): 5 Indication: Known roasterman IV therapy Location: Left basilic Device Type: Non-valved Catheter Lumen(s): Single lumen Catheter size: 3 Fr Catheter to vein ratio: 24%MidLine Characteristics: Catheter Brand: SL PROVENA MIDLINE Internal CatheterLength (cm): 12 Total Catheter Length (cm): 12 Catheter Lot Number: [id number] Catheter Expiration Date: 2Procedure details: Landmarks identified: yes Ultrasound guidance: yes Sterile ultrasoundtechniques: Sterile gel and sterile probe covers were used Number of attempts: 1 Number of MidLine kits used during procedure: 2 Extra guide wire required?: Yes Purpose of procedure: Midline Placement P atency/Placement: Flushes without difficulty, flushed with 10 mL normal saline, positive blood return, injection cap placed and ultrasound MidLine placed utilizing ultrasound-guided Modified Seldinger Technique: Yes Dressing/Securement: Antimicrobial dressing dry and intact, antimicrobial dressing applied and catheter securement device Blood Loss Amount: Less than 20 mLPost-procedure details: Post-procedure: Dressing applied Patient tolerance of procedure: Tolerated well, no immediate complicationsUs duplex venous upper [id number] 03:03:00 Vascular Ultrasound Laboratory Upper Extremity Venous Report [id number] [address] Pat.Name: SNOW ARGUETA Pat.ID: [id number] .Date: 02/07/2020 Refer.MD: MICHAEL MADDOX MD Exam Time: 4:33:00 PM Study Type:UE Venous Height: 66in Weight: 220lb BSA: 2.08 m2 Age: 7 1985,34Y Sex: FEMALE Sonogrphr: Ryan Torres RVT Pat. Stat.:Inpatient Room: [id number] Tape Vol: HV, CPT - 4: 48752 Echo Event ID:[id number] Order ID: [id number] Reason for Study:Right arm pain and swelling. [...] Vascular Ultrasound Laboratory Upper Extremity Venous Report [address] [place] [address] Pat.Name: SNOW ARGUETA Pat.ID: [id number] St.Date: 02/07/2020 Refer.MD: MICHAEL MADDOX MD Exam Time: 4:33:00 PM Study Type:UE Venous Height: 66in Weight: 220lb BSA: 2.08 m2 Age:8 1985,34Y Sex: FEMALE Sonogrphr: Ryan Torres RVT Pat. Stat.:Inpatient Room: [address] Tape Vol: , CPT - 4: 93941 Echo Event ID:[id number] Order ID: [id number] Reason for Study:Right arm pain and swelling. S/P midline removal on02/07/2020.Procedures: Colorflow, Grayscale/2D, Pulsed wave DopplerRace: D SUMMARY: DUPLEX SCAN OBSERVATIONS Right LeftIJ Normal Subclavian Normal NormalAxillary Normal Brachial Normal Basilic Obstructed Cephalic(FA) Normal RIGHT: The upper arm basilic vein is non-compressible with mixedechogenic material within the lumen. Colorflow and Doppler signals areabsent. All other remaining veins are patetnt.LEFT: There is normal compressibility and no evidence of echogenicmaterial noted within the lumen ofthe subclavian vein. Colorflow andDoppler signals are normal. PRELIMINARY FINDINGS1. Obstructed superficial venous thrombosis of right upper arm basilicvein.2. No evidence of deep venous thrombosis of the visualized veins.Result given to EBONIE Husain at 17:30 PM on 02/07/2020.PHYSICIAN INTERPRETATION Venous examination of the right upper extremity and neck demonstratedno evidence of deep venous thrombosis.Obstructed superficial venous thrombosis of right upper arm basilicvein. --------FINDINGS: Signed 02/07/2020 10:03 PMChaz Obrien MD, RPVIWashington County Memorial Hospital duplex venous upper extremity 2020-02-08 03:03:00 Vascular Ultrasound Laboratory Upper Extremity Venous Report [address] [place] [address] Pat.Name: SNOW ARGUETA Pat.ID: [id number] .Date: 02/07/2020 Refer.MD: MICHAEL MADDOX MD Exam Time: 4:33:00 PM Study Type:UE Venous Height: 66in Weight: 220lb BSA: 2.08 m2 Age: 8 1985,34Y Sex: FEMALE Sonogrphr: Ryan Torres RVT Pat. Stat.:Inpatient Room: [address] Tape Vol: HV, CPT -4: 20370 Echo Event ID:[id number] Order ID: [id number] Reason for Study:Right arm pain and swelling. S/P midline removal on02/07/2020.Procedures: Colorflow, Grayscale/2D, Pulsed wave DopplerRace: D ----- SUMMARY: DUPLE X SCAN OBSERVATIONS Right LeftIJ Normal Subclavian Normal [...] evidence of deep venous thrombosis of the visua lized veins.Result given to EBONIE Husain at 17:30 PM on 02/07/2020.PHYSICIAN INTERPRETATION Venous examination of the right upper extremity and neck demonstratedno evidence of deep venous thrombosis.Obstructed superficial venous thrombosis of right upper arm basilicvein. FINDINGS: Signed 02/07/2020 10:03 PMEstrellasolt Camille MD, RPVIInterface, Radiology Results In - 02/07/2020 10:03 PM CDTFormatting of this note might be different from theoriginal. Vascular Ultrasound Laboratory Upper Extremity Venous Report [address] [place] [address] Pat.Name: SNOW ARGUETA Pat.ID: [id number] .Date: 02/07/2020 Refer.MD: MICHAEL MADDOX MD Exam Time: 4:33:00 PM Study Type:UE Venous Height: 66in Weight: 220lb BSA: 2.08 m2 Age: 8 1985,34Y Sex: FEMALE Sonogrphr: Ryan Torres RVT Pat. Stat.:Inpatient Room: [address] Tape Vol: , CPT - 4: 13636 Echo Event ID:[id number] Order ID: [id number] Reason for Study:Right arm pain and swelling. S/P midline removal on02/07/2020.Procedures: Colorflow, Grayscale/2D, Pulsed wave DopplerRace:D SUMMARY: DUPLEX SCAN OBSERVATIONS Right LeftIJ Normal Subclavian Normal NormalAxillary Normal Brachial Normal Basilic ObstructedCephalic(FA) Normal RIGHT: The upper arm basilic vein [...] venous thrombosis of right upper arm basilicvein. -------FINDINGS: Signed 02/07/2020 10:03 Yessi Obrien MD, RPVIEpiscopalian HospitalFlow cytometry [id number] 14:52:18 Test Item Value Reference Range Interpretation Comments Case number (test code = [id number]) Flow cytometry evaluation See link below for (test code = 6552087) PDF Lab Report [facility] [id number] 14:52:18 Test Item Value Reference Range Interpretation Comments Case number (test code = [id number]) Flow cytometry evaluation See link below for (test code = 1234399) PDF Lab Report [facility] HospitalVENIPUNC NEED PHYS SKILL,DX OR [id number] 14:18:07Javier Borjas RN 02/07/2020 9:21 AMMidline Date/Time: [...] to vein ratio: 41%MidLine Characteristics: Catheter Brand: AN[employer] External Catheter Length (cm): 0 Internal Catheter Length (cm): 12 Total Catheter Length (cm): 12 Catheter Lot Number: [id number] Catheter Expiration Date: 01/18/2021rocedure details: Landmarks identified: [...] no immediate complicationsVENIPUNC NEED PHYS SKILL,DX OR [id number] 14:18:07Javier Kolb RN 02/07/2020 9:21 AMMidline Date/Time: [...] Catheter Length (cm): 12 Catheter Lot Number: [id number] Catheter Expiration Date: 1Procedure details: Landmarks identified: [...] tolerance of procedure: Tolerated well, no immediate complicationsECHelen [facility] [id number] 17:49:19 Test Item Value Reference Range Interpretation Comments Ventricular rate (test code = 253) Atrial rate (test code = 255) MN interval (test code = 266) QRSD interval [...] of 04-FEB-2020 04:50,-No significant change was found- [facility] HospitalEC 12 [id number] 17:49:19 Test Item Value Reference Range Interpretation Comments Ventricular rate (test code = 253) Atrial rate (test code = 255) MN interval (test code = 266) QRSD interval [...] of 04-FEB-2020 04:50,-No significant change was found- [facility] HospitalXR Chest 1 Vw [id number] 03:09:52EXAMINATION: XR CHEST 1 VW PORTABLE CLINICAL HISTORY: 34 years Female chest pressure on exertion COMP ARISON: None. IMPRESSION: No acute cardiopulmonary disease. FINDINGS: The cardiomediastinal silhouette, lungs, and regional skeletal structures are within normal limits for age. [facility]-[id number] Interface, Radiology Results Incoming - 02/05/2020 10:12 PM CDT EXAMINATION: XR CHEST 1 VW PORTABLECLINICAL HISTORY: 34 years Female chest pressure onexertionCOMPARISON: None.IMPRESSION:No acute cardiopulmonary disease.FINDINGS:The cardiomediastinal silhouette, lungs, and regional skeletal structures are within normal limits for age. [id number] Memorial HospitalXR Chest 1 Vw [id number] 03:09:52EXAMINATION: XR CHEST 1 VW PORTABLE CLINICAL HISTORY: 34 years Female chest pressure on exertion COMPARISON: None. IMPRESSION: No acute cardiopulmonary disease. FINDINGS: The cardiomediastinal silhouette, lungs, and regional skeletal structures are within normal limits for age. [id number] Interface, Radiology Results - 02/05/2020 10:12 PM CDT EXAMINATION: XR CHEST 1 VW PORTABLECLINICAL HISTORY: 34 years Female chest pressure on exertionCOMPARISON: None.IMPRESSION:No acute cardiopulmonary disease.FINDINGS:The cardiomediastinal silhouette, lungs, and regional skeletal structures are within normal limits for age. [address] Cytology (non-gynecological) [id number] 23:15:16 Test Item Value Reference Range Interpretation Comments Case number (test code = [id number]) Cytology See link below for (non-gynecological) PDF Lab Report report (test code = 1178) Result status (test code This is Final Report = [id number]) for [id number] [facility] HospitalCytology (non-gynecological) [id number] 23:15:16 Test Item Value Reference Range Interpretation Comments Case number (test code = [id number]) Cytology See link below for (non-gynecological) PDF Lab Report report (test code = 1178) Result status (test code This is Final Report = [id number]) for [id number] [facility] HospitalEEG (routine)2020-02-04 15:51:25EEG AWAKE AND ASLEEP Date of Service: 02/04/2020 Awake Recording: The occipital dominant rhythm is 10-11 Hz. 18-22 Hz activity is present in all regions. Sleep Recording: No epileptiform activity was recorded. Hyperventilation: No abnormality elicited. Photic Stimulation: No abnormality elicited. Impression The background activity is within the range of normal variation. No lateralized or epileptiform activity was recorded. ICD-10 Code: V491LYW (routine)2020-02-04 15:51:25EEG AWAKE AND ASLEEP Date of [...] recorded. ICD-10 Code: R569IR Lumbar Puncture by [id number] 15:23:15EXAMINATION: IR LUMBAR PUNCTURE CLINICAL HISTORY: meningitis [...] Opening pressure was 21 cm of water. [facility]-[id number] [facility], Radiology Results - 02/04/2020 10:26 AM [...] puncture.Op ening pressure was 21 cm of water.[facility]-[id number] HospitalIR Lumbar Puncture by [id number] 15:23:15EXAMINATION: IR LUMBAR PUNCTURE CLINICAL HISTORY: meningitis [...] Opening pressure was 21 cm of water. [facility]-[id number] [facility], Radiology Results - 02/04/2020 10:26 AM [...] puncture.Op ening pressure was 21 cm of water.[facility]-[id number] ZwaspfmfJMFO-TnI-9 (COVID-19) RNA [Presence] in Respiratory specimen by SARI with probe detection 2020-02-04 05:23:12 Test Item Value Reference Range Interpretation Comments SARS-CoV-2 (COVID-19) RNA Not detected Not-Detected [Presence] in Respiratory specimen by SARI with probe detection (test code = 38045-3) NEL CHAVEZ [facility] Brain & Orbit W Wo [id number] 03:36:27 EXAMINATION: MRI BRAIN & ORBIT W [...] Unremarkable MRI of the brain and orbits. [facility]-[id number] Interface, RadiologyResults - 02/03/2020 10:39 PM CDT EXAMINATION: MRI [...] of the brain and orbits.[facility]-[id number] Hospitals of [facility] Brain & Orbit W Wo [id number] 03:36:27EXAMINATION: MRI BRAIN & ORBIT W WO [...] Unremarkable MRI of the brain and orbits. [facility]-[id number] [facility], RadiologyResults 02/03/2020 10:39 PM CDT EXAMINATION: MRI BRAIN [...] of the brain and orbits.[facility]-[id number] [facility] HospitalCT Head Wo [id number] 21:17:18EXAM: CT HEAD WO CONTRAST CLINICAL HISTORY: [...] intact.IMPRESSION:No CT evidence for acute intracranial abnormality.[id number] HospitalOK Head Wo [id number] 21:17:18EXAM: CT HEAD WO CONTRAST CLINICAL HISTORY: [...] are intact.IMPRESSION:No CT evidence for acute intracranial abnormality.[id number]
[2022-05-09 11:35] LABS: Urine Blood Negative (Negative); Urine Glucose Negative (Negative); Urine Protein Negative (Negative); Urine Specific Gravity 1.025 (1.005-1.030); Urine pH 5.5 (5.0-7.0)
[2022-05-09 12:10] LABS: Urine Specific Gravity/Preg 1.025 (1.005-1.030)
[2022-05-09] MEDS ORDERED: MORPHINE 4 MG/ML SYR ONE (12:15)
[2022-05-09] MEDS ORDERED: FAMOTIDINE 20 MG/2 ML VIAL IV ONE (12:15)
[2022-05-09] MEDS ORDERED: NA CHLORIDE 0.9% 1,000 ML ONE (12:15)
[2022-05-09 12:34] LABS: Absolute Lymphocytes (CBC) 1.8 K/uL (0.7-4.9); Hematocrit 32.1 % (36.0-45.0); Lymphocytes % 25.3 % (15.3-44.8); MCV 76.7 fL (80-100); MPV 9.6 fL (7.6-11.3); RBC Red Blood Cell Count 4.19 M/uL (3.86-4.86)
[2022-05-09 12:55] LABS: Albumin 4.1 g/dL (3.4-5.0); Bilirubin Total 0.6 mg/dL (0.2-1.0); Potassium 3.5 mmol/L (3.5-5.1); Protein, Total 7.1 g/dL (6.4-8.2)
--- NOTE | 2022-05-09 13:15 | RAD REPORT ---
EXAM DESCRIPTION: US - Extrem Venous W Compress Kings - 05/09/2022 1:08 pm CLINICAL HISTORY: PAIN Bilateral leg edema and swelling. COMPARISON: Extremity Nonvascular Complete dated 08/31/2020 TECHNIQUE: Real-time sonographic interrogation of the left and right lower extremity deep venous sys tems was performed. FINDINGS: Normal compressibility, flow augmentation, phasic flow and spontaneous flow is identified in both the left and right lower extremity deep venous systems. IMPRESSION: No sonographic evidence of left or right lower extremity deep venous thrombosis.
--- NOTE | 2022-05-09 13:25 | RAD REPORT ---
EXAM DESCRIPTION: CTAbdomen Pelvis W Contrast - 05/09/2022 1:15 pm CLINICAL HISTORY: Abdominal pain. Right flank pain COMPARISON: Abdomen Pelvis W Contrast dated 10/14/2021; Abdomen Pelvis W Contrast dated 05/15/2021 ; Abdomen Pelvis W Contrast dated 05/11/2021; Abdomen Pelvis W Contrast dated 10/11/2020 TECHNIQUE: Biphasic CT imaging of the abdomen and pelvis was performed with 100 ml non-ionic IV cont rast. All CT scans are performed using dose optimization technique as appropriate and may include automated exposure control or mA/KV adjustment according to patient size. FINDINGS: The lung bases are clear.Cholecystectomy clips. The liver, spleen, pancreas, adrenal glands and kidneys are within normal limits. No bowel obstruction, free air, free fluid or abscess. Appendectomy. No evidence of significant lym phadenopathy. No suspicious bony findings. IMPRESSION: No acute intra-abdominal or pelvic finding.
[2022-05-09] MEDS ORDERED: PROMETHAZINE INJ 25 MG/ML AMP ONE (14:15)
[2022-05-09] MEDS ORDERED: KETOROLAC 30 MG/ML INJ ONE (14:15)
--- NOTE | 2022-05-09 15:11 | ER ---
Nurse's Notes [facility] Name: Snow Argueta Age: 36 yrs Sex: Female : 1985 Arrival Date: 05/09/2022 Time: 11:09 Bed 7 Private MD: Diagnosis: Abdominal pain, Generalized;Nausea with vomiting, unspecified Presentation: 05/09 11:22 Chief complaint: Patient states: went to my kidney specialist this morning, was sen iw here for eval, just finished meds for a UTI and symptoms returned two days ago and got worse over nught, having really bad low back pain, pelvic pain, diarrhea, nausea, my legs have been hurting , behind my left leg feels tender and I have a hx of blood clots. Coronavirus screen: At this time, the client does not indicate any symptoms associated with coronavirus-19. Ebola Screen: Patient negative for fever greater than or equal to 101.5 degrees Fahrenheit, and additional compatible Ebola Virus Disease symptoms Patient denies exposure to infectious person. Patient denies travel to an Ebola-affected area in the 21 days before illness onset. No symptoms or risks identified at this time. Initial Sepsis Screen: Does the patient meet any 2 criteria? No. Patient's initial sepsis screen is negative. Does the patient have a suspected source of infection? No. Patient's initial sepsis screen is negative. Risk Assessment: Do you want to hurt yourself or someone else? Patient reports no desire to harm self or others. Onset of symptoms was May 09, 2022. 11:22 Method Of Arrival: Ambulatory iw 11:22 Acuity: LEONEL 3 iw Historical: - Allergies: 11:25 Cephalexin; iw 11:25 Feraheme (Anaphylaxis); iw 11:25 Gadavist; iw 11:25 Latex, Natural Rubber; iw 11:25 Zofran; iw - PMHx: 11:25 ADD/ADHD; Blood Clot on R arm; Endometrosis; epilepsy; GERD; Hypothyroidism; Leukemia; iw Lupus erythematosus; Pancreatitis; - PSHx: 11:25 Appendectomy; Cholecystectomy; Ligation of fallopian tube; iw Screenin:27 [facility] ED Fall Risk Assessment (Adult) Score/Fall Risk Level 0 - 2 = Low Risk ll1 Oriented to surroundings, Maintained a safe environment, Educated pt \\T\\ family on fall prevention, incl call for assistance when getting out of bed, Hourly rounding (assess needs \\T\\ fall precautionary measures) done. Abuse screen: Denies threats or abuse. Nutritional screening: No deficits noted. Tuberculosis screening: No symptoms or risk factors identified. Assessment: 12:00 General: Appears in no apparent distress. comfortable, Behavior is cooperative. Pain: mb9 Complains of pain in back and abdomen Pain does not radiate. Pain currently is 10 out of 10 on a pain scale. Quality of pain is described as sharp, shooting, Pain began 1 day ago. Is intermittent. Neuro: [place]is Agitation-Sedation Scale (RASS): 0 - Alert and Calm Level of Consciousness is awake, alert, obeys commands, Oriented to person, place, time, situation, Appropriate for age. Cardiovascular: Heart tones S1 S2 present Rhythm is regular. 12:00 Respiratory: Airway is patent Respiratory effort is even, unlabored, Respiratory mb9 pattern is regular, symmetrical, Breath sounds are clear bilaterally. GI: Abdomen is flat, non-distended, Bowel sounds present X 4 quads. Abd is soft Abdomen is tender to palpation in right lower quadrant and left lower quadrant Reports diarrhea, nausea, vomiting. : Urine is cloudy. EENT: No signs and/or symptoms were reported regarding the EENT system. Derm: Skin is pink, warm \\T\\ dry. Musculoskeletal: Capillary refill < 3 seconds, is brisk, Range of motion: intact in all extremities. 12:34 Reassessment: pt taken to ultrasound via wheelchair. mb9 13:29 Reassessment: No changes from previously documented assessment. Patient and/or family mb9 updated on plan of care and expected duration. Pain level reassessed. Patient is alert, oriented x 3, equal unlabored respirations, skin warm/dry/pink. 13:55 Reassessment: pt states "I feel nauseous and like I'm going to throw up." MD notified. mb9 14:38 Reassessment: Patient states feeling better. Patient states symptoms have improved. mb9 15:20 Reassessment: No changes from previously documented assessment. Patient and/or family mb9 updated on plan of care and expected duration. Pain level reassessed. Patient is alert, oriented x 3, equal unlabored respirations, skin warm/dry/pink. Patient states feeling better. Patient states symptoms have improved. Vital Signs: 11:25 BP 117 / 78; Pulse 82; Resp 16; Temp 97.9; Pulse Ox 99% on R/A; Weight 78.47 kg; Height iw 5 ft. 6 in. (167.64 cm); 12:36 BP 115 / 72; Pulse 74; Resp 18; Pulse Ox 100% on R/A; mb9 13:33 BP 127 / 92; Pulse 76; Resp 16; Pulse Ox 100% ; mb9 14:37 BP 115 / 73; Pulse 67; Resp 18; Pulse Ox 100% on R/A; ph 15:20 BP 124 / 85; Pulse 72; Resp 16; Pulse Ox 100% on R/A; mb9 11:25 Body Mass Index 27.92 (78.47 kg, 167.64 cm) iw ED Course: 11:09 Patient arrived in ED. mr 11:25 Triage completed. iw 11:25 Arm band placed on. iw 11:27 Duy Bautista, RN is Primary Nurse. ll1 11:27 Patient placed in an exam room, on a stretcher. ll1 11:27 Patient has correct armband on for positive identification. Bed in low position. Call ll1 light in reach. Client placed on continuous cardiac and pulse oximetry monitoring. NIBP monitoring applied. 11:32 Zach Shahid MD is Attending Physician. kdr 11:38 Urine collected: clean catch specimen, clear, Amount Voided: 150mL. ll1 11:55 Primary Nurse role handed off by Duy Bautista, RN mb9 11:55 Love Jauregui, EBONIE is Primary Nurse. mb9 12:20 Inserted saline lock: 20 gauge in right forearm, using aseptic technique. Blood mb9 collected. 12:29 CBC with Diff Sent. mb9 12:29 CMP Sent. mb9 13:10 US Extremity Venous W Compression Kings In Process Unspecified. EDMS 13:17 CT Abd/Pelvis - IV Contrast Only In Process Unspecified. EDMS 13:33 No provider procedures requiring assistance completed. mb9 15:21 IV discontinued, intact, bleeding controlled, No redness/swelling at site. Pressure mb9 dressing applied. Administered Medications: 12:20 Drug: morphine 4 mg Route: IVP; Infused Over: 4 mins; Site: right forearm; mb9 13:04 Follow up: Response: No adverse reaction mb9 12:29 Drug: Pepcid (famotidine) 20 mg Route: IVP; Site: right forearm; mb9 13:04 Follow up: Response: No adverse reaction mb9 12:30 Drug: NS 0.9% 1000 ml Route: IV; Rate: 125 ml/hr; Site: right forearm; mb9 14:20 Drug: Phenergan (promethazine) 25 mg Route: IVP; Site: right forearm; mb9 14:39 Follow up: Response: Nausea is decreased mb9 14:20 Drug: Ketorolac 15 mg Route: IVP; Site: right forearm; mb9 14:27 Follow up: Response: No adverse reaction mb9 Medication: 11:27 VIS not applicable for this client. ll1 Outcome: 15:11 Discharge ordered by . kdr 15:21 Discharged to home ambulatory. mb9 15:21 Condition: stable 15:21 Discharge instructions given to patient, Instructed on discharge instructions, follow up and referral plans. Demonstrated understanding of instructions, follow-up care, medications, Prescriptions given X 2. 15:31 Patient left the ED. mb9 Signatures: Dispatcher [employer] EDMS Zach Shahid MD MD kdr Rivera, Mary mr Williams, Irene, RN EBONIE Sierra Hernandez RN RN ph Lewis, Lynsay, RN RN 1 Juventino, Love Tam RN RN mb9
--- NOTE | 2022-05-09 15:11 | EDPHYS ---
Physician Documentation [facility] Name: Snow Argueta Age: 36 yrs Sex: Female : 1985 Arrival Date: 05/09/2022 Time: 11:09 Bed 7 Private MD: ED Physician Zach Shahid HPI: 05/09 16:33 This 36 yrs old Female presents to ER via Ambulatory with complaints of kdr Abnormal Lab Results, Pelvic Pain, Back Pain. 16:30 The patient presents today with multiple complaints. She states that she was with her [facility] kidney specialist this morning and after being seen there was sent here for further evaluation specifically to look for blood clots in her legs. She also has just finished antibiotics for UTI and 2 days ago her symptoms returned and were worse overnight. She also complains of low back pain pelvic pain diarrhea nausea and leg pain. She feels it behind her left knee she has a tender area and is concerned because she has a history of blood clots in her legs. The patient looks mildly uncomfortable but does not appear toxic or in need of emergent intervention. Onset: The symptoms/episode began/occurred Last 3 or 4 days. Severity of symptoms: At their worst the symptoms were mild moderate just prior to arrival, in the emergency department the symptoms are unchanged. The patient has experienced similar episodes in the past, multiple times, today's symptoms are similar. The patient has been recently seen by a physician: the patient's primary care provider. Historical: - Allergies: 11:25 Cephalexin; iw 11:25 Feraheme (Anaphylaxis); iw 11:25 Gadavist; iw 11:25 Latex, Natural Rubber; iw 11:25 Zofran; iw - PMHx: 11:25 ADD/ADHD; Blood Clot on R arm; Endometrosis; epilepsy; GERD; Hypothyroidism; Leukemia; iw Lupus erythematosus; Pancreatitis; - PSHx: 11:25 Appendectomy; Cholecystectomy; Ligation of fallopian tube; iw ROS: 16:30 Constitutional: Negative for fever, chills, and weight loss, Eyes: Negative for injury, kdr pain, redness, and discharge, Neck: Negative for injury, pain, and swelling, Cardiovascular: Negative for chest pain, palpitations, and edema, Respiratory: Negative for shortness of breath, cough, wheezing, and pleuritic chest pain, MS/Extremity: Negative for injury and deformity, Skin: Negative for injury, rash, and discoloration, Neuro: Negative for headache, weakness, numbness, tingling, and seizure activity. Psych: Negative for depression, anxiety, suicide ideation, homicidal ideation, and hallucinations, Allergy/Immunology: Negative for hives, rash, and allergies, Endocrine: Negative for neck swelling, polydipsia, polyuria, polyphagia, and marked weight changes, Hematologic/Lymphatic: Negative for swollen nodes, abnormal bleeding, and unusual bruising. 16:30 Abdomen/GI: Positive for abdominal pain, nausea, vomiting, abdominal cramps, Negative for black/tarry stool, rectal pain, rectal bleeding, bowel incontinence. Exam: 16:30 Constitutional: This is a well developed, well nourished patient who is awake, alert, kdr and in no acute distress. Head/Face: Normocephalic, atraumatic. Eyes: Pupils equal round and reactive to light, extra-ocular motions intact. Lids and lashes normal. Conjunctiva and sclera are non-icteric and not injected. Cornea within normal limits. Periorbital areas with no swelling, redness, or edema. Neck: Trachea midline, no thyromegaly or masses palpated, and no cervical lymphadenopathy. Supple, full range of motion without nuchal rigidity, or vertebral point tenderness. No Meningismus. Chest/axilla: Normal chest wall appearance and motion. Nontender with no deformity. No lesions are appreciated. Cardiovascular: Regular rate and rhythm with a normal S1 and S2. No gallops, murmurs, or rubs. Normal PMI, no JVD. No pulse deficits. Respiratory: Lungs have equal breath sounds bilaterally, clear to auscultation and percussion. No rales, rhonchi or wheezes noted. No increased work of breathing, no retractions or nasal flaring. Skin: Warm, dry with normal turgor. Normal color with no rashes, no lesions, and no evidence of cellulitis. MS/ Extremity: Pulses equal, no cyanosis. Neurovascular intact. Full, normal range of motion. Neuro: Awake and alert, GCS 15, oriented to person, place, time, and situation. Cranial nerves II-XII grossly intact. Motor strength 5/5 in all extremities. Sensory grossly intact. Cerebellar exam normal. Normal gait. Psych: Awake, alert, with orientation to person, place and time. Behavior, mood, and affect are within normal limits. 16:30 Abdomen/GI: Inspection: abdomen appears normal, Bowel sounds: diminished, Palpation: soft, mild abdominal tenderness, in the posterior aspect of right lateral abdomen, anterior aspect of right lateral abdomen, right upper quadrant and right lower quadrant. Vital Signs: 11:25 BP 117 / 78; Pulse 82; Resp 16; Temp 97.9; Pulse Ox 99% on R/A; Weight 78.47 kg; Height iw 5 ft. 6 in. (167.64 cm); 12:36 BP 115 / 72; Pulse 74; Resp 18; Pulse Ox 100% on R/A; mb9 13:33 BP 127 / 92; Pulse 76; Resp 16; Pulse Ox 100% ; mb9 14:37 BP 115 / 73; Pulse 67; Resp 18; Pulse Ox 100% on R/A; ph 15:20 BP 124 / 85; Pulse 72; Resp 16; Pulse Ox 100% on R/A; mb9 11:25 Body Mass Index 27.92 (78.47 kg, 167.64 cm) iw MDM: 15:11 Patient medically screened. kdr 16:30 Data reviewed: vital signs, nurses notes, lab test result(s), radiologic studies. [facility] 05/09 11:35 Order name: Urine Dipstick-Ancillary; Complete Time: 13:50 [facility] 05/09 11:38 Order name: Urine --Ancillary (enter results); Complete Time: 13:50 [facility] 05/09 12:01 Order name: CBC with Diff; Complete Time: 13:50 [facility] 05/09 12:01 Order name: CMP; Complete Time: 13:50 [facility] 05/09 12:01 Order name: CT Abd/Pelvis - IV Contrast Only; Complete Time: 13:50 [facility] 05/09 12:01 Order name: US Extremity Venous W Compression Kings; Complete Time: 13:50 [facility] 05/09 11:38 Order name: Urine Dipstick-Ancillary (obtain specimen); Complete Time: 11:38 1 05/09 11:38 Order name: Urine Test (obtain specimen); Complete Time: 11:38 1 05/09 12:01 Order name: IV Saline Lock; Complete Time: 12:29 [facility] 05/09 12:01 Order name: Labs collected and sent; Complete Time: 12:29 [facility] 05/09 14:39 Order name: PO challenge; Complete Time: 14:48 mb9 Administered Medications: 12:20 Drug: morphine 4 mg Route: IVP; Infused Over: 4 mins; Site: right forearm; mb9 13:04 Follow up: Response: No adverse reaction mb9 12:29 Drug: Pepcid (famotidine) 20 mg Route: IVP; Site: right forearm; mb9 13:04 Follow up: Response: No adverse reaction mb9 12:30 Drug: NS 0.9% 1000 ml Route: IV; Rate: 125 ml/hr; Site: right forearm; mb9 14:20 Drug: Phenergan (promethazine) 25 mg Route: IVP; Site: right forearm; mb9 14:39 Follow up: Response: Nausea is decreased mb9 14:20 Drug: Ketorolac 15 mg Route: IVP; Site: right forearm; mb9 14:27 Follow up: Response: No adverse reaction mb9 Disposition Summary: 05/09/22 15:11 Discharge Ordered Location: Home kdr Problem: new kdr Symptoms: have improved kdr Condition: Stable kdr Diagnosis - Abdominal pain, Generalized kdr - Nausea with vomiting, unspecified kdr Followup: kdr - With: Private Physician - When: 2 - 3 days - Reason: If symptoms return, Further diagnostic work-up, Recheck today's complaints, Continuance of care, Re-evaluation by your physician Discharge Instructions: - Discharge Summary Sheet kdr - Nausea and Vomiting, Adult kdr - Abdominal Pain, Adult, [id number] kdr Forms: - Medication Reconciliation Form kdr - Thank You Letter kdr - Prescription Opioid Use kdr Prescriptions: - Tramadol 50 mg Oral Tablet - take 1 tablet by ORAL route every 8 hours as needed; 12 tablet; Refills: 0, kdr Product Selection Permitted - promethazine 25 mg Oral Tablet - take 1 tablet by ORAL route every 6 hours As needed; 20 tablet; Refills: 0, kdr Product Selection Permitted Signatures: Dispatcher [employer] Zach Schwarz MD MD kdr Clara Black RN RN iw Duy Bautista RN RN ll1 Love Jauregui RN RN mb9
[2022-05-09 16:09] VITALS: O2SAT 100
[2022-05-09 16:12] VITALS: BP 124/85
[2022-05-09 16:16] VITALS: TEMP 98.9
== END 2022-05-09 15:31 | disposition home or self-care (01) ==
LOC: ER 11:06
DX: R10.84 Generalized abdominal pain (principal); R11.2 Nausea with vomiting, unspecified; E03.9 Hypothyroidism, unspecified; K21.9 Gastro-esophageal reflux disease without esophagitis; L93.0 Discoid lupus erythematosus; K85.90 Acute pancreatitis without necrosis or infection, unspecified; C95.90 Leukemia, unspecified not having achieved remission; Z88.8 Allergy status to other drugs, medicaments and biological substances; Z91.09 Other allergy status, other than to drugs and biological substances
CPT/HCPCS: 85025; 36415; 81025; 81003; 80053; 74177; 93970; Q9967; J2550; J7030

== ENCOUNTER 2022-10-28 07:48 | Emergency (ER) | payer BC ==
--- OUTSIDE RECORDS SUMMARY | 2022-10-28 07:51 | XMS REPORT | Clinical Summary ---
:1985 Author Organization [facility] Address [address] [place] [address] Care Team Providers Name Role Phone Marck Greenberg MD Primary Care Provider Jag Schmidt MD Unavailable Niharika Peraza MD Unavailable Anita Yancey MD Unavailable Fab Pena MD Unavailable Juan Hammonds MD Unavailable Unavailable Gurpreet Hernandez MD Unavailable Unavailable Heydi Dunlap Unavailable Patsy Etienne Unavailable Unavailable Topher Johnson APRN Unavailable Kori Allison Unavailable Michael Flowesr MD Unavailable Maddy Winchester NP Unavailable Unavailable Pedro Luis Meza MD Unavailable Yuli Milligan APRN Unavailable Kathi Lorenzo MD Unavailable Adria Alfaro MD Unavailable Marck Greenberg MD Unavailable LeahyTeddyNina FILAMENT SHAPER Unavailable Rin Wren FILAMENT SHAPER Unavailable Suly Ochoa PA Unavailable SeverianoLee ELECTRIC TAPE SLITTER Unavailable Christianne Chaidez MD Unavailable [phone] BeauTommie Mike PA Unavailable Marie Jung PA Unavailable [phone] [facility] FILAMENT SH[facility] Unavailable Graeme Damico MD Unavailable Chico Damico MD Unavailable Kristy Florez MD Unavailable [phone] Sony Rich MD Unavailable Sony Watson MD Unavailable [phone] Santino Alvarenga MD Unavailable Aurora Busby MD Unavailable Unavailable Domenic Gordon MD Unavailable Unavailable Otis Busby MD Unavailable [phone] Allergies Active Allergy Reactions Severity Noted [...] Vaccination (#1) 05/10/1987 Results Not on fileafter 10/28/2021 Care Teams Service Unit Operator Relationship Specialty Start Date End Date Marck Greenberg MD PCP - General 06/21/[address] [place] [id number] Jag Schmidt MD Physician 06/28/[address] [place] [address] [id number] Niharika Peraza MD Physician 06/28/[address] [place] [address] [phone] Anita Yancey MD Physician 06/28/15 [address] [facility] [address] [place] [address] Fab Pena MD Physician 06/28/[address] [place] [address] [id number] Juan Hammonds MD Physician 06/28/15 Gurpreet Hernandez MD Physician 06/28/15 Heydi Dunlap PA Physician Social Work Instructor 06/28/[address] [place] [id number] Patsy Etienne PA Physician Social Work Instructor 06/28/15 Topher Johnson APRN Nurse Practitioner 06/28/[address] [place] [address] [id number] Kori Allison AuD Bow Rehairer 06/28/15 [address] [facility], [address] [place] [address] Michael Flowers MD Physician 06/28/[address] [place] [address] [id number] Maddy Winchester NP Nurse Practitioner 06/28/15 Pedro Luis Meza MD Physician 06/28/[address] [address] Yuli Milligan APRN Nurse Practitioner 06/28/[address] [place] [address] [id number] Kathi Lorenzo MD Physician 06/28/[address] [place] [address] [id number] Adria Alfaro MD Physician 06/28/[address] [place] [address] [id number] Marck Greenberg MD Physician 06/28/[address] [place] [address] [id number] Nina Graham APRN Nurse Practitioner 06/28/[address] [place] [address] [id number] Rin Wren APRN Nurse Practitioner 06/28/[address] [place] [address] [phone] Suly Ochoa PA Physician Social Work Instructor 06/28/[address] [place] [address] [id number] Lee العلي NP Nurse Practitioner 06/28/[address] [place] [address] [id number] Christianne Chaidez MD Physician 06/28/[address] [place] [id number] Tommie Yanez PA Physician Social Work Instructor 06/28/[address] [place] [address] [id number] Marie Jung PA Physician Social Work Instructor 06/28/[address] [place] [address] [id number] Alexandra Villegas APRN Nurse Practitioner 06/28/[address] [place] [address] [phone] Graeme Damico MD Physician 06/28/[address] [place] [address] [id number] Chico Damico MD Physician 06/28/[address] [place] [address] [id number] Kristy Florez MD Physician 06/28/[address] [place] [address] [id number] Sony Rich MD Physician 06/28/[address] [place] [address] [id number] Sony Watson MD Physician 06/28/[address] [place] [address] [id number] Santino Alvarenga MD Physician 06/28/[address] [place] [address] [id number] Aurora Busby MD Physician 06/28/15 Domenic Gordon MD Physician 06/28/15 Otis Busby MD Physician 06/28/[address] [place] [id number]
--- OUTSIDE RECORDS SUMMARY | 2022-10-28 08:02 | XMS REPORT | Continuity of Care Document ---
:1985 Author Organization [facility] t Address [address] [place] [address] [id number] Care Team Providers Name Role Phone SOCO ARRIAGA Primary Care Physician Unavailable Tiff Hunter Attending Clinician Unavailable Soco Arriaga Attending Clinician Unavailable David Chung Attending Clinician MADDY SIMMS Attending Clinician Unavailable Maddy Simms MD Attending Clinician Shaylee Ross RN Attending Clinician Unavailable Jori Long NP Attending Clinician Nicki Scott Attending Clinician EARLE IVERSON Attending Clinician Unavailable Zayra MORENO Earle Attending Clinician Silvina House Attending Clinician Unavailable INOCENTE MEJIAS Attending Clinician Unavailable Shilpa Mason RN Attending Clinician Unavailable Ebrahijuan RESEARCH CENTER DIRECTOR, Truong Attending Clinician TRUONG NORMAN Attending Clinician Unavailable Provider, [facility] Attending Clinician Unavailable Reji MORENO, Tessa Rodriguez Attending Clinician TESSA MENDOZA Attending Clinician Unavailable Selena HAMILTON, Chika Attending Clinician Marques Mane MD Attending Clinician [facility] Attending Clinician Unavailable Caleb Umana MD Attending Clinician Kanchan Downey MD Attending Clinician Eulalio HAMILTON, Jen Pulido Attending Clinician [phone] MD KANCHAN DOWNEY Attending Clinician Unavailable Tung HAMILTON, Isidro Rowe Attending Clinician Jasmeet Benedict MD Attending Clinician Erica HAMILTON, Yesi Muñoz Attending Clinician [phone] Diogo Blandon Attending Clinician Unavailable Kim Guevara MD Attending Clinician Karen Pineda MD Attending Clinician Michael Maddox MD [facility] Attending Clinician Gabby García MA Attending Clinician Unavailable MD KAREN PINEDA Attending Clinician Unavailable Arriaga, Na L Admitting Clinician Unavailable KANCHAN DOWNEY Admitting Clinician Unavailable MD KANCHAN DOWNEY Admitting Clinician Unavailable JASMEET BENEDICT Admitting Clinician Unavailable KAREN PINEDA Admitting Clinician Unavailable MD KAREN PINEDA Admitting Clinician Unavailable Payers Payer Name Policy Type Policy Number Effective Date Expiration Date [facility] Blue Cross 6 [id number] 2021 [facility] t Blue Shield of 00:00:00 - [facility] [place] [id number] 2021 00:00:00 [place] [id number] POS 00:00:00 JANE Walker [id number] 2020 [facility] 00:00:00 - [facility] Problems Condition Condition Condition Status Onset Resolution Last Treating Co mments Source Name Details Category Date Date Treatment Clinician Date Weakness Weakness Disease Active [facility] di of right of right 2-14 st arm arm 00:00: Hospita 00 l Weakness Weakness Disease Active [facility] di of [...] 2-22 it y of tic tic 00:00: [place] leukemia, leukemia, 00 MD in in [facility] remission [facility] Stressful Stressful Problem Com mon life life Spirit events events - [facility] affecting affecting [facility] family and family and Ann Marie kes household household [facility] [id number] History of Problem Co mmon colon Spirit polyps - [facility] [id number] Right Problem Common anterior Spirit knee pain - [facility] 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 s, Medical unspecifie Center d epilepsy type [id number] Complex Problem Common partial Spirit seizures - [facility] with [facility] consciousn Medica l ess at Center onset Incontinen Incontinen Problem C ommon ce ce [facility] [id number] Elevated Problem Comm on blood Spirit pressure - [facility] reading without [facility] diagnosis [facility] [place] hypertensi on Tinnitus Tinnitus Problem Commo n Spirit [facility] Hiatal Hiatal Problem Common hernia hernia [facility] [id number] Fatty Problem Common liver [facility] Palpitatio Palpitatio Problem C ommon ns ns [facility] [id number] Urgency-fr Problem Com mon equency [facility] syndrome [facility] [id number] Stress Problem Common incontinen Spirit ce [facility] [id number] Viral Problem Common illness [facility] [id number] Laryngitis Problem Com mon Spirit [facility] Gastritis Gastritis Problem Com mon [facility] [id number] 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 [facility] Hyperlipid Hyperlipid Problem C ommon emia emia [facility] [id number] Autoimmune Problem Com mon disorder [facility] Essential Benign Problem Common hypertensi essential Spi rit on HTN [facility] [id number] Gait Problem Common instabilit [facility] y [facility] Gastroesop GERD Problem Commo n hageal (gastroeso Spirit reflux phageal - CHI disease reflux St disease) [facility] Anxiety Anxiety Problem Common [facility] [id number] Mild Problem Common intermitte Spirit nt asthma - [facility] without St complicati [facility] Dizziness Dizziness Problem Com mon [facility] [id number] Seasonal Problem Comm on allergies [facility] [id number] Neck pain Problem Comm on Spirit [facility] [id number] Constipati Problem Com mon on, Spirit unspecifie - CHI d St constipati [facility] [id number] Attention Problem Comm on deficit Spirit hyperactiv - CHI ity [facility] disorder [facility] ([facility] combined Center type [id number] Adult Problem Common general [facility] medical [facility] Rectal Rectal Problem Common bleeding bleeding [facility] [id number] Depression Problem Co mmon with [facility] anxiety [facility] [id number] Cough Problem Common [facility] Leukemia Leukemia Problem Commo n [facility] [id number] Acquired Problem Comm on hypothyroi Spirit dism [facility] [id number] Swelling Problem Commo n [facility] Allergic Allergic Problem Commo n rhinitis rhinitis [facility] [id number] Abnormal Problem Comm on ultrasound [facility] [id number] Iron Problem Common deficiency [facility] anemia, [facility] unspecifie [facility] deficiency Medica l anemia Center type [id number] Lupus Problem Common [facility] [id number] Restless Problem Commo n legs [facility] [id number] [place] [address] tunnel Spirit syndrome, - [facility] Backache Backache Problem Active 2022-10-14 Memoria (finding) (finding) 00:30:50 l Active Ricardo Problem 10/14/2022 [facility] Cervical Cervical Problem Active 2022-10-14 Memoria radiculopa radiculopa 00:30:50 l thy thy [place] (disorder) (disorder) Active Problem 10/14/2022 [facility] Disease Disease Problem Active 2022-10-14 Me moria caused by caused by 00:30:50 l 2019-nCoV 2019-nCoV Herm zay Active Problem 10/14/2022 [facility] Disorienta Disorient Problem Active 2022-10-14 Memoria leon ated 00:30:50 l (finding) (finding) Herm zay Active Problem 10/14/2022 [facility] History of History Problem Active 2022-10-14 Memoria - * of - * 00:30:50 l leukemia leukemia Murray n (context-d (context-d ependent ependent category) category) Active Problem 10/14/2022 [facility] Headache Headache Problem Active 2022-10-14 Memoria (finding) (finding) 00:30:50 l Active Ricardo Problem 10/14/2022 [facility] Hemiplegia Hemiplegi Problem Active 2022-10-14 Memoria (disorder) a 00:30:50 l (disorder) Murray n Active Problem 10/14/2022 [facility] Hypothyroi Hypothyro Problem Active 2022-10-14 Memoria dism idism 00:30:50 l (disorder) (disorder) He rmann Active Problem 10/14/2022 [facility] Seizure Seizure Problem Active 2022-10-14 Me moria disorder disorder 00:30:50 l (disorder) (disorder) He rmann Active Problem 10/14/2022 [facility] Simple Simple Problem Active 2022-10-14 Unruly kieran obesity obesity 00:30:50 l (disorder) (disorder) He rmann Active Problem 10/14/2022 [facility] Syncope Syncope Problem Active 2022-10-14 Me moria (disorder) (disorder) 00:30:50 l Active Ricardo Problem 10/14/2022 [facility] Tremor Tremor Problem Active 2022-10-14 Unruly kieran (finding) (finding) 00:30:50 l Active [place] Problem 10/14/2022 [facility] Visual Visual Problem Active 2022-10-14 Unruly kieran disturbanc disturbanc 00:30:50 l e e Ricardo (disorder) (disorder) Active Problem 10/14/2022 [facility] 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 (disorder) (disorder) Active Problem 09/01/2020 [facility] No known No known Disease Unive rs active active ity of problems problems [place] [facility] Allergies, Adverse Reactions, Alerts Allergy Allergy Status Severity Reaction(s) Onset Inactive Treating Comm ents Source Name Type Date Date Clinician CEPHALEX DRUG Active High Hives Univers IN INGREDI 8-15 ity of 00:00: [place] 00 Medical Branch ONDANSET DRUG Active High Other-Cmnt Univ ers CLEO HCL INGREDI 8-15 ity of 00:00: [place] 00 Medical Branch Ondanset Drug Active Other - See migraines Univers cleo Hcl Allergy comments 8-15 ity of 00:00: 00 Medical Branch FERUMOXY DRUG Active Anaphylaxis Uni vers GILBERTO INGREDI 4- ity of 00:00: 00 Medical Branch Ferumoxy Propensi Active Anaphylaxis [...] Nausea / Un pau ol Intolera Comments) 2-22 Vomiting- it y of nce 00:00: iodine [place] 00 prior to MD MYRNA [facility] Latex Drug Active Dermatitis 2016-0 Univer s Allergy 2-22 ity of 00:00: [place] 00 MD Taryn [facility] GADOBUTR DRUG Active High Other-Cmnt 0 Univ ers OL INGREDI - ity of 00:00: [place] 00 [facility] CEFPODOX DRUG Active Med Hives Univers NANNETTE INGREDI 06-12 ity of 00:00: [place] 00 [facility] LATEX DRUG Active High Rash Univers INGREDI 3-15 ity of 00:00: [place] 00 [facility] Latex Drug Active Swelling Univers Allergy 3-15 ity of 00:00: [place] 00 [facility] cephalex cephalex Active Memori a in in l [place] Latex Latex Active Memoria l [place] Gadavist Gadavist Active Memori a l [place] Zofran Zofran Active Memoria l [place] Feraheme Feraheme Active Memori a l Ricardo NO KNOWN Drug Active Univers ALLERGIE Class ity of S [facility] cephalex cephalex Active Unknown Commo n in in [facility] 30 Drug Active Unknown Common allergy [facility] Family History Family Member Diagnosis Comments Start Date Stop Date Source Paternal grandfather [facility] Social History Social Habit Start Date Stop Date Quantity Comments Source History of Tobacco [facility] - Use [facility] Gender identity [facility] Sexual orientation [facility] Hospital History SDOH University o f Alcohol Frequency [facility] [place] [facility] edical Branch History SDOH University o f Alcohol Std Drinks [facility] History SDOH University o f Alcohol Binge [place] Medic al [facility] Exposure to Not sure University of SARS-CoV-2 (event) [facility] Tobacco use and 2020-12-03 2020-12-03 Never used Universit y of exposure 00:00:00 00:00:00 [facility] Alcohol intake 2020-06-10 2020-06-10 Current drinker [facility]o dist 00:00:00 00:00:00 of alcohol Hospital (finding) History of Social 2020-06-10 2020-06-[address] function 00:00:00 00:00:00 Hospital Alcohol Comment 2020-02-03 2020-02-03 occ drinker Methodis t 00:00:00 00:00:00 Hospital Sex Ass[birth year] At [birth year] Universit y of 00:00:00 00:00:00 [place] MD [facility] Smoking Status Start Date Stop Date Source Tobacco smoking status [facility] Medications Ordered Filled Start Stop Current Ordering Indication Dosage Frequency Signature Comments Components Source Medication Medication Date Date Medication? Clinician (SIG) Name Name Potassium 2021-04 Yes 0 Memoria Alum 2-27 Refill(s) l 20:08: Iron 100 2021-04 Yes PO, Daily, Mem oria Plus 2-27 0 l 20:08: Refill(s) Potassium 2021-04 Yes 0 Memoria Alum 2-27 Refill(s) l 20:08: Iron 100 2021-04 Yes PO, Daily, Mem oria Plus 2-27 0 l 20:08: Refill(s) Vyvanse 50 Vyvanse 50 2021-04 No 1{capsu QD Vyvanse 50 MG MG 2-19 le_in_t MG 00:00: he_morn 00 ing} primidone 2021-04 Yes 50 mg = 1 Mem oria 50 mg oral 0-14 tab, PO, l tablet 15:22: Bedtime, # Rupal nn 00 30 tab, 3 Refill(s), Pharmacy: [facility] #[id number], 165.1, cm, 02/01/22 9:38:00 CDT, Height, 78.182, kg, 02/01/22 9:38:00 CDT, Weight primidone 2021-04 Yes 50 mg = 1 Mem oria 50 mg oral 0-14 tab, PO, l tablet 15:22: Bedtime, # Rupal nn 00 30 tab, 3 Refill(s), Pharmacy: [facility] #[id number], 165.1, cm, 02/01/22 9:38:00 CDT, Height, 78.182, kg, 02/01/22 9:38:00 CDT, Weight primidone 2021-04 Yes 50 mg = 1 Mem oria 50 mg oral 0-14 tab, PO, l tablet 15:22: Bedtime, # Rupal nn 00 30 tab, 3 Refill(s), Pharmacy: [facility] #[id number], 165.1, cm, 02/01/22 9:38:00 CDT, Height, 78.182, kg, 02/01/22 9:38:00 CDT, Weight Vyvanse 50 Vyvanse 50 2022-0 No 1{capsu [...] HCl 0.5 MG 00:00: 00 Trokendi XR 2-0 Yes 400 mg = 2 Memoria 200 mg oral - cap, PO, l capsule, 14:54: Daily, # Rupal nn extended 00 180 cap, 1 release Refill(s), Pharmacy: [facility] #[id number], 167.64, cm, 12/20/21 9:45:00 CDT, Height, 77.955, kg, 12/20/21 9:45:00 CDT, Weight Trokendi XR 2021-0 Yes 400 mg = 2 Memoria 200 mg oral - cap, PO, l capsule, 14:54: Daily, # Rupal nn extended 00 180 cap, 1 release Refill(s), Pharmacy: [facility] #[id number], 167.64, cm, 12/20/21 9:45:00 CDT, Height, 77.955, kg, 12/20/21 9:45:00 CDT, Weight Trokendi XR 2021-0 Yes 400 mg = 2 Memoria 200 mg oral - cap, PO, l capsule, 14:54: Daily, # Rupal nn extended 00 180 cap, 1 release Refill(s), Pharmacy: [facility] #[id number], 167.64, cm, 12/20/21 9:45:00 CDT, Height, 77.955, kg, 12/20/21 9:45:00 CDT, Weight Vyvanse 50 Vyvanse 50 No 1{capsu QD Vyvanse 50 MG MG 7-06 le_in_t MG 00:00: he_morn 00 ing} Vyvanse 50 Vyvanse 50 0 No 1{capsu QD Vyvanse 50 MG MG 7-06 le_in_t MG 00:00: he_morn 00 ing} Vyvanse 50 Vyvanse 50 2022-0 No 1{capsu QD Vyvanse 50 MG MG 7-06 le_in_t MG 00:00: he_morn 00 ing} Cheratussin Cheratussin 2022-0 No 5{ml} Cheratussi AC [...] 00:00: 100-10 00 MG/5ML Azithromyci Azithromyci 2021-0 2021- No QD Azithromyc n 250 MG n 250 MG 2-22 -27 in 250 MG 00:00: 00:00 00 :00 bromphenira 2021-0 Yes [id number] 5mL Take 5 mL Univers mine-pseudo 2-19 by mouth 4 it y of ephedrine-D 00:00: (four[place] (BROMFED 00 times Medical DM) 2-30-10 daily as Bran ch mg/5 mL needed for syrup Congestion /Allergies . benzonatate 0 Yes [id number] 200mg Take 2 Univers 100 mg 2-19 capsules ity of capsule 00:00: by mouth [place] 00 every 8 Medical (eight) Branch hours as needed for Cough. methylPREDN 2021-0 Yes [id number] Take by Univers ISolone 2-19 mouth ity of (MEDROL, 00:00: SEE-INSTRU Raj as JUANI,) 4 mg 00 CTIONS. Medica l tablets follow Branch package directions bromphenira 0 Yes [id number] 5mL Take 5 mL Univers mine-pseudo 2-19 by mouth 4 it y of ephedrine-D 00:00: (four[place] (BROMFED 00 times Medical DM) 2-30-10 daily as Bran ch mg/5 mL needed for syrup Congestion /Allergies . benzonatate Yes [id number] 200mg Take 2 Univers 100 mg 2-19 capsules ity of capsule 00:00: by mouth [place] 00 every 8 Medical (eight) Branch hours as needed for Cough. methylPREDN Yes [id number] Take by Univers ISolone 2-19 mouth ity [...] 00:00: 00:00 00 :00 bromphenira 2020-04 Yes [id number] 5mL Take 5 mL Univers mine-pseudo 05-16 by mouth 4 it y of ephedrine-D 00:00: (four[place] (BROMFED 00 times Medical DM) 2-30-10 daily as Bran ch mg/5 mL needed for syrup Congestion /Allergies or Cough. bromphenira 2020-04- No [id number] 5mL Take 5 mL Univers mine-pseudo 05-16 [...] ELIQUIS 5 0 Yes Univers mg tablet 9-17 ity of 00:00: 00 Medical Branch ELIQUIS 5 2020-0 Yes Univers mg tablet 9-17 ity of 00:00: 00 Medical Branch ELIQUIS 5 2020-0 Yes Univers mg tablet 9-17 ity of 00:00: 00 Medical Branch ELIQUIS 5 2020-0 Yes Univers mg tablet 9-17 ity of 00:00: 00 Medical Branch VYVANSE 50 2020-0 Yes 50mg Take 50 mg U nivers mg capsule 9-13 by mouth ity o f 00:00: every [place] 00 morning. Medical Branch VYVANSE 50 2020-0 Yes 50mg Take 50 mg U nivers mg capsule 9-13 by mouth ity o f 00:00: every [place] 00 morning. Medical Branch VYVANSE 50 2020-0 Yes 50mg Take 50 mg U nivers mg capsule 9-13 by mouth ity o f 00:00: every [place] 00 morning. Medical Branch VYVANSE 50 2020-0 Yes 50mg Take 50 mg U nivers mg capsule 9-13 by mouth ity o f 00:00: every [place] 00 morning. [facility] levothyroxi Yes TAKE 1 Univ ers ne [...] ity of mg 02:30: 01:45 ONCE, 1 [place] 00 :00 dose, [facility] Medical 12/04/20 at [place] 2130, STAT proMETHazin 2020- No 25mg 25 mg, IV Univers e 12-05 Piggyback, ity of (PHENERGAN) 02:30: 02:30 [place]CE[place] 1 [place] 25 [place] in 00 :00 dose, Mon Medica l NaCl 0.9% 12/04/20 at [facility] (NS) 50 mL 0, 50 piggyback mL NaCl 0.9% 2020- No 500mL at [address] [place] [address] ers (NS) bolus 12-05 mL/hr, 500 it y of infusion 02:30: 04:34 mL, IV [place] 500 mL 00 :00 Piggyback, Medical ONCE, 1 [place] dose, [facility] 12/04/20 at 2130, STAT iopamidol 2020- No [id number] 120mL 120 mL, Univers (ISOVUE 12-05 Intravenou ity o f 370-500 mL) 02:02: 02:05 s, ONCE, 1 [place] injection 00 :00 dose, Mon Medic al 120 mL 12/04/20 at [place] 2115, Routine proMETHazin 2020- No [id number] 25mg Univers e 12-04 ity of (PHENERGAN) 01:00: 01:03 [place] injection 00 :00 Medical 25 mg Branch proMETHazin 2020- No [id number] 25mg 25 mg, Univers e 12-04 Intramuscu ity of (PHENERGAN) 01:00: 01:03 lar, ONCE, [place] injection 00 :00 1 dose, Medical 25 mg [facility] 12/03/20 at 1999, Routine proMETHazin 2020-2020- No [id number] 25mg Univers e 12-04 ity of (PHENERGAN) 01:00: 01:03 [place] injection 00 :00 Medical 25 mg Branch proMETHazin 2020- No [id number] 25mg 25 mg, Univers e 12-04 Intramuscu ity of (PHENERGAN) 01:00: 01:03 lar, ONCE, [place] injection 00 :00 1 dose, Medical 25 mg [facility] 12/03/20 at 1999, Routine EpiPen EpiPen 0 No EpiPen 2-Juani 0.3 [...] MG/0.3ML 00:00: MG/0.3ML 00 Levocetiriz Levocetiriz 2020-0 1- No 1{table QD Levocetiri ine ine 10-18 t} zine Dihydrochlo Dihydrochlo 00:00: 00:00 Dihydrochl ride 5 MG ride 5 MG 00 :00 oride 5 MG Levocetiriz Levocetiriz 2020-0 2021- No 1{table QD Levocetiri ine ine 10-18 t} zine Dihydrochlo Dihydrochlo 00:00: 00:00 Dihydrochl ride 5 MG ride 5 MG 00 :00 oride 5 MG Levocetiriz Levocetiriz 2020- No 1{table QD Levocetiri ine ine 10-18 12-26 t} zine Dihydrochlo Dihydrochlo 00:00: 00:00 Dihydrochl ride 5 MG ride 5 MG 00 :00 oride 5 MG Hydroxychlo 0 Yes 200 mg = 1 Memoria roquine 6-24 tab, PO, l Sulfate 200 20:11: Daily, 0 He rmann MG Oral 00 Refill(s) Tablet hydroxychlo 2020-0 Yes 200 mg = 1 Memoria roquine 6-24 tab, PO, l sulfate 200 20:11: Daily, 0 He rmann mg oral 00 Refill(s) tablet Hydroxychlo 2020-0 Yes 200 mg = 1 Memoria roquine 6-24 tab, PO, l Sulfate 200 20:11: Daily, 0 He rmann MG Oral 00 Refill(s) Tablet hydroxychlo 2020-0 Yes 200 mg = 1 Memoria roquine 6-24 tab, PO, l sulfate 200 20:11: Daily, 0 He rmann mg oral 00 Refill(s) tablet Hydroxychlo 2020-0 Yes 200 mg = 1 Memoria roquine 6-24 tab, PO, l Sulfate 200 20:11: Daily, 0 He rmann MG Oral 00 Refill(s) Tablet hydroxychlo 2020-0 Yes 200 mg = 1 Memoria roquine 6-24 tab, PO, l sulfate 200 20:11: Daily, 0 He rmann mg oral 00 Refill(s) tablet 24 HR Yes 400 mg = 2 Memori a topiramate 6-24 cap, PO, l 200 MG 20:06: Bedtime, # Rupal nn Extended 00 180 cap, 2 Release Refill(s), Capsule Pharmacy: [[facility]] [facility][id number], 167.64, cm, 10/12/20 14:33:00 CDT, Height, 86.818, kg, 10/12/20 14:33:00 CDT, Weight 24 HR Yes 400 mg = 2 Memori a topiramate 6-24 cap, PO, l 200 MG 20:06: Bedtime, # Rupal nn Extended 00 180 cap, 2 Release Refill(s), [id number], 167.64, cm, 10/12/20 14:33:00 CDT, Height, 86.818, kg, 10/12/20 14:33:00 CDT, Weight 24 HR Yes 400 mg = 2 Memori a topiramate 6-24 cap, PO, l 200 MG 20:06: Bedtime, # Rupal nn Extended 00 180 cap, 2 Release Refill(s), Capsule Pharmacy: [[facility] #[id number], 167.64, cm, 10/12/20 14:33:00 CDT, Height, 86.818, kg, 10/12/20 14:33:00 CDT, Weight omeprazole 0 Yes TAKE ONE Mem oria 40 mg oral 6-24 CAPSULE BY l delayed 19:42: MOUTH [place] release 00 EVERY capsule MORNING mesalamine 0 Yes TAKE 2 Memor ia 500 MG 6-24 CAPSULES l Extended 19:42: BY MOUTH Rupal nn Release 00 TWICE Capsule DAILY [[facility]] omeprazole 0 Yes TAKE ONE Mem oria 40 mg oral 6-24 CAPSULE BY l delayed 19:42: MOUTH [place] release 00 EVERY capsule MORNING mesalamine 0 Yes TAKE 2 Memor ia 500 MG 6-24 CAPSULES l Extended 19:42: BY MOUTH Rupal nn Release 00 TWICE Capsule DAILY [Pentasa] omeprazole 2020-0 Yes TAKE ONE Mem oria 40 mg oral 6-24 CAPSULE BY l delayed 19:42: MOUTH [place] release 00 EVERY capsule MORNING mesalamine 0 Yes TAKE 2 Memor ia 500 MG 6-24 CAPSULES l Extended 19:42: BY MOUTH Rupal nn Release 00 TWICE Capsule DAILY [Pentasa] Famotidine 0 No 0 Memoria 40 MG Oral 6-24 Refill(s) l Tablet 19:41: [place] 00 linaclotide 0 Yes 145 Memori a 0.145 MG 6-24 microgram l Oral 19:41: = 1 cap, Ricardo Capsule 00 PO, Daily, [Linzess] 30 minutes prior to the first meal of the day, # 30 cap, 0 Refill(s) Famotidine 2021-0 No 0 Memoria 40 MG Oral 6-24 Refill(s) l Tablet 19:41: [place] 00 linaclotide Yes 145 Memori a 0.145 MG 6-24 microgram l Oral 19:41: = 1 cap, [place] Capsule 00 PO, Daily, [Linzess] 30 minutes prior to the first meal of the day, # 30 cap, 0 Refill(s) Famotidine No 0 Memoria 40 MG Oral 6-24 Refill(s) l Tablet 19:41: [place] 00 linaclotide Yes 145 Memori a 0.145 [...] 90 cap, 2 Release Refill(s), Capsule Pharmacy: [[facility]] [facility], 167.64, cm, 04/19/20 14:37:00 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, Height, 87.273, kg, 08/29/20 16:36:00 CDT, Weight 24 HR Yes 200 mg = 1 Memori a topiramate 5-11 cap, PO, l 200 MG 21:45: Daily, # Ricardo Extended 00 90 cap, 2 Release Refill(s), Capsule Pharmacy: [[facility]] [facility], 167.64, cm, 04/19/20 14:37:00 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, Height, 87.273, kg, 08/29/20 16:36:00 CDT, Weight 24 HR Yes 200 mg = 1 Memori a topiramate 5-11 cap, PO, l 200 MG 21:45: Daily, # [place] Extended 00 90 cap, 2 Release Refill(s), [facility], 167.64, cm, 04/19/20 14:37:00 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, Height, 87.273, kg, 08/29/20 16:36:00 CDT, Weight Eliquis 5 2021-0 Yes 5 mg, PO, Mem oria mg oral 5-11 Q12H, # 60 l tablet 21:43: tab, 0 Ricardo 00 Refill(s), Pharmacy: [facility], 167.64, cm, 04/19/20 14:37:00 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, Height, 87.273, kg, 08/29/20 16:36:00 CDT, Weight apixaban 5 2021-0 Yes 5 mg, PO, Me moria MG Oral 5-11 Q12H, # 60 l Tablet 21:43: tab, 0 Ricardo [Eliquis] 00 Refill(s), Pharmacy: [facility], 167.64, cm, 04/19/20 14:37:00 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, Height, 87.273, kg, 08/29/20 16:36:00 CDT, Weight apixaban 5 2021-0 Yes 5 mg, PO, Me moria MG Oral 5-11 Q12H, # 60 l Tablet 21:43: tab, 0 [place] [Eliquis] 00 Refill(s), [facility]: [facility], 167.64, cm, 04/19/20 14:37:00 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, Height, 87.273, kg, 08/29/20 16:36:00 CDT, Weight Eliquis 5 2021-0 Yes 5 mg, PO, Mem oria mg oral 5-11 Q12H, # 60 l tablet 21:43: tab, 0 Ricardo 00 Refill(s), [facility]: [facility], 167.64, cm, 04/19/20 14:37:00 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, Height, 87.273, kg, 08/29/20 16:36:00 CDT, Weight apixaban 5 2021-0 Yes 5 mg, PO, Me moria MG Oral 5-11 Q12H, # 60 l Tablet 21:43: tab, 0 Ricardo [Eliquis] 00 Refill(s), Pharmacy: [facility], 167.64, cm, 04/19/20 14:37:00 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, Height, 87.273, kg, 08/29/20 16:36:00 CDT, Weight Eliquis 5 2021-0 Yes 5 mg, PO, Mem oria mg oral 5-11 Q12H, # 60 l tablet 21:43: tab, 0 [place] 00 Refill(s), Pharmacy: [facility], 167.64, cm, 04/19/20 14:37:00 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, Height, 87.273, kg, 08/29/20 16:36:00 CDT, Weight [...] PO, Daily, # 30 tab, 0 Refill(s) Levothyroxi Levothyroxi 0 No QD Levothyrox ne [...] MCG 00:00: 50 MCG 00 Levothyroxi Levothyroxi 2021-0 No QD ne Sodium ne Sodium 4-07 [...] MCG 50 MCG 00:00: 50 MCG 00 Gabapentin Gabapentin 2021-0 No 1{capsu QD [...] le} 300 MG 00:00: 00 Gabapentin Gabapentin 2020-0 No 1{capsu QD Gabapentin 300 MG 300 MG 3-30 le} 300 MG 00:00: 00 Gabapentin Gabapentin 2020-0 No 1{capsu QD Gabapentin 300 MG 300 MG 3-30 le} 300 MG 00:00: 00 Gabapentin Gabapentin 2020-0 No 1{capsu QD Gabapentin 300 MG 300 MG 3-30 le} 300 MG 00:00: 00 topiramate 0 Yes 400mg 400 mg. Uni vers (TROKENDI 3-16 ity of XR) 100 mg 00:00: [address] topiramate 2020-0 Yes 400mg 400 mg. Uni vers (TROKENDI 3-16 ity of XR) 100 mg 00:00: [address] topiramate 2020-0 Yes 400mg 400 mg. Uni vers (TROKENDI 3-16 ity of XR) 100 mg 00:00: [address] topiramate 0 Yes 400mg 400 mg. Uni vers (TROKENDI 3-16 ity of XR) 100 mg 00:00: [address] lisdexamfet 0 Yes 50mg QD Take 50 [...] capsule,ext 53 nightly. l ended release 24hr acetaminoph 1-0 Yes 500mg Q6H Take 500 [...] daily. 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, Weight 24 HR 2019-04 Yes 100 mg = 1 Memori a topiramate 2-30 cap, PO, l 100 MG 21:09: Bedtime, # Rupal nn Extended 00 90 cap, 2 Release Refill(s), Capsule Pharmacy: [[facility] [address] [facility][id number], 167.64, cm, 04/19/20 14:37:00 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, Height, 104.545, kg, 04/19/20 14:37:00 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, Weight 24 HR 2019-04 Yes 100 mg = 1 Memori a topiramate 2-30 cap, PO, l 100 MG 21:09: Bedtime, # Rupal nn Extended 00 90 cap, 2 Release Refill(s), Capsule [facility]: [id number], 167.64, cm, 04/19/20 14:37:00 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, Height, 104.545, kg, 04/19/20 14:37:00 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, Weight Famotidine 2019-04 Yes 40 mg, PO, M emoria 2-30 Daily, # l 20:40: 60 tab, 0 [place] 00 Refill(s) Nulev 2019-04 Yes 0.125 mg, Memoria 2-30 PO, QID, 0 l 20:40: Refill(s) Famotidine 2019-04 Yes 40 mg, PO, M emoria 2-30 Daily, # l 20:40: 60 tab, 0 Ricardo 00 Refill(s) Nulev 2019-04 Yes 0.125 mg, Memoria 2-30 PO, QID, 0 l 20:40: Refill(s) Famotidine 2019-04 Yes 40 mg, PO, M emoria 2-30 Daily, # l 20:40: 60 tab, 0 [place] 00 Refill(s) Nulev 2019-04 Yes 0.125 mg, Memoria 2-30 PO, QID, 0 l 20:40: Refill(s) Reglan 2019-04 Yes 0 Memoria 1-10 Refill(s) l 18:04: [place] Reglan 2019-04 Yes 0 Memoria 1-10 Refill(s) l 18:04: [place] Reglan 2019-04 Yes 0 Memoria 1-10 Refill(s) l 18:04: [place] 00 metoclopram 2019-04- No 1{tbl} Take 1 [...] 40 mg 0-30 ity of capsule 00:00: [address] esomeprazol 2019-04 Yes Univer s e 40 mg 0-30 ity of capsule 00:00: [address] esomeprazol 2019-04 Yes Univer s e 40 mg 0-30 ity of capsule 00:00: [address] esomeprazol 2019- Yes Univer s e 40 mg 0-30 ity of capsule 00:00: [address] omeprazole 2019-04- No 20mg QD Take [...] for 30 days. metoclopram 2019-04- No 5mg [id number] Take 1 Methodi dung 0-28 11-03 [id number] tablet (5 st (Reglan) 5 00:00: 05:59 3D mg total) H ospita MG tablet 00 :00 by mouth 3 l (three) times a day as needed (nausea, vomiting) for up to 5 days. metoclopram 2019-04- No 5mg Q.[id number] Take 1 Methodi dung 0-28 11-03 [id number] tablet (5 st (Reglan) 5 00:00: 05:59 [...] it last week - unknown reason); (per [place] [facility], last filled 12/18/19, quantity: 30, day supply: 30) lisdexamfet 2019-04 No 40mg QD Take 40 mg Methodi amine 0-26 10-[address] (VYVANSE) 18:16: 00:00 daily. Hospi ta 40 MG 29 :00 (per l capsule patient, stopped taking it last week - unknown reason); (per [facility] on Drug Monitoring Program, last filled 12/18/19, quantity: 30, day supply: 30) Reglan 10 Reglan 10 2019-04 No 1{table [...] 00:00: e_meals 00 } Reglan 10 Reglan 2019-04 No 1{table TID [...] 0-21 t_befor MG 00:00: e_meals 00 } topiramate 2019-04 No 1{capsu QD Take 1 [...] she ran out of it) atropine 1 2020-1 2020- No 1[drp] Q.5D Administer Methodi % 0-20 [...] of it) OXCARBAZEPI 2019-04- No (Patient M juana NE ORAL 0-20 10-[address] 23:40: [...] - per patient) metoclopram 2019-04- No 5mg [id number] Take 1 Methodi dung 0-20 10-28 [id number] tablet (5 st (Reglan) 5 00:00: 00:00 3D mg total) H ospita MG tablet 00 :00 by mouth 3 l (three) times a day as needed (nausea, vomiting) for up to 5 days. metoclopram 2019-04- No 5mg Q.[id number] Take 1 Methodi dung 0-20 10-28 [id number] tablet (5 st (Reglan) 5 00:00: 00:00 3D mg total) H ospita MG tablet 00 :00 by mouth 3 l (three) times a day as needed (nausea, vomiting) for up to 5 days. Vyvanse Vyvanse 2019-0 Yes Na Arriaga 1 capsule Common 8-25 in the Spirit 00:00: [facility] Kenalog Kenalog 2019-0 No 40mg Common (Triamcinol (Triamcinol 2-19 S pirit one) one) 00:00: - [facility] Kenalog Kenalog 2020-0 No 40mg Common (Triamcinol (Triamcinol 2-19 S pirit one) one) 00:00: - [facility] Kenalog Kenalog 2020-0 No 40mg Common (Triamcinol (Triamcinol 2-19 S pirit one) one) 00:00: - [facility] Kenalog Kenalog 2020-0 No 40mg Common (Triamcinol (Triamcinol 2-19 S pirit one) one) 00:00: - [facility] Kenalog Kenalog 2020-0 No 40mg Common (Triamcinol (Triamcinol 2-19 S pirit one) one) 00:00: - [facility] Kenalog Kenalog 2020-0 No 40mg Common (Triamcinol (Triamcinol 2-19 S pirit one) one) 00:00: - [facility] Kenalog Kenalog 2020-0 No 40mg Common (Triamcinol (Triamcinol 2-19 S pirit one) one) 00:00: - [facility] Kenalog Kenalog 2020-0 No 40mg Common (Triamcinol (Triamcinol 2-19 S pirit one) one) 00:00: - [facility] Kenalog Kenalog 2020-0 No 40mg Common (Triamcinol (Triamcinol 2-19 S pirit one) one) 00:00: - [facility] Kenalog Kenalog 2020-0 No 40mg Common (Triamcinol (Triamcinol 2-19 S pirit one) one) 00:00: - [facility] Kenalog Kenalog 2020-0 No 40mg Common (Triamcinol (Triamcinol 2-19 S pirit one) one) 00:00: - [facility] Kenalog Kenalog 2020-0 No 40mg Common (Triamcinol (Triamcinol 2-19 S pirit one) one) 00:00: - [facility] Kenalog Kenalog 2020-0 No 40mg Common (Triamcinol (Triamcinol 2-19 S pirit one) one) 00:00: - [facility] oxcarbazepi 2018- Yes 300 mg = 1 Memoria ne 300 MG 9-06 tab, PO, l Oral Tablet 16:04: BID, # 180 Ricardo [Trileptal] 19 tab, 3 Refill(s), [id number] oxcarbazepi Yes 300 mg = 1 Memoria ne 300 MG 9-06 tab, PO, l Oral Tablet 16:04: BID, # 180 Ricardo [Trileptal] 19 tab, 3 Refill(s), [id number] oxcarbazepi Yes 300 mg = 1 Memoria ne 300 MG 9-06 tab, PO, l Oral Tablet 16:04: BID, # 180 Ricardo [Trileptal] 19 tab, 3 Refill(s), [id number] Yes 100 mg = 1 Memori a topiramate 9-06 cap, PO, l 100 MG 16:04: Daily, # Ricardo Extended 10 90 cap, 3 Release Refill(s), Capsule Pharmacy: [[facility]] [id number] Yes 100 mg = 1 Memori a topiramate 9-06 cap, PO, l 100 MG 16:04: Daily, # [place] Extended 10 90 cap, 3 Release Refill(s), Capsule Pharmacy: [[facility]] [id number] Yes 100 mg = 1 Memori a topiramate 9-06 cap, PO, l 100 MG 16:04: Daily, # Ricardo Extended 10 90 cap, 3 Release Refill(s), [id number] No 100 mg = 1 Memori a topiramate 9-04 cap, PO, l 100 MG 18:31: Daily, X [place] Extended 05 30 day, # Release 30 cap, 3 Capsule Refill(s), [[facility]] Pharmacy: [facility] No 100 mg = 1 Memori a topiramate 9-04 cap, PO, l 100 MG 18:31: Daily, X [place] Extended 30 day, # Release 30 cap, 3 Capsule Refill(s), [[facility]] Pharmacy: [facility] 24 No 100 mg = 1 Memori a topiramate 9-04 cap, PO, l 100 MG 18:31: Daily, X Ricardo Extended 30 day, # Release 30 cap, 3 Capsule Refill(s), [[facility]] Pharmacy: [facility] No 300 mg = 1 Memoria ne 300 MG 9-04 tab, PO, l Oral Tablet 18:31: BID, X 30 H ermann [Trileptal] 02 day, # 60 tab, 3 Refill(s), Pharmacy: [facility] No 300 mg = 1 Memoria ne 300 MG 9-04 tab, PO, l Oral Tablet 18:31: BID, X 30 H ermann [Trileptal] 02 day, # 60 tab, 3 Refill(s), Pharmacy: [facility] No 300 mg = 1 Memoria ne 300 MG 9-04 tab, PO, l Oral Tablet 18:31: BID, X 30 H ermann [Trileptal] 02 day, # 60 tab, 3 Refill(s), Pharmacy: [facility] lisdexamfet Yes 30 mg = 1 M [...] 00 cap, 0 Capsule Refill(s) [Vyvanse] Vyvanse 30 Yes 30 mg = 1 Me moria mg oral 8-09 cap, PO, l capsule 16:20: QAM, # 30 Rupal nn 00 cap, 0 Refill(s) omeprazole Yes 20 mg = 1 Me moria 20 mg oral 7-17 cap, PO, l delayed 00:27: Daily, # Murray n release 00 30 cap, 2 capsule Refill(s), Pharmacy: [facility] omeprazole Yes 20 mg = 1 Me moria 20 mg oral 7-17 cap, PO, l delayed 00:27: Daily, # Murray n release 00 30 cap, 2 capsule Refill(s), Pharmacy: [facility] omeprazole Yes 20 mg = 1 Me moria 20 mg oral 7-17 cap, PO, l delayed 00:27: Daily, # Murray n release 00 30 cap, 2 capsule Refill(s), Pharmacy: [facility] oxcarbazepi Yes 300 mg = 1 Memoria ne 300 MG 7-03 tab, PO, l Oral Tablet 18:01: BID, # 60 H ermann [Trileptal] 00 tab, 2 Refill(s), Pharmacy: [facility] oxcarbazepi Yes 300 mg = 1 Memoria ne 300 MG 7-03 tab, PO, l Oral Tablet 18:01: BID, # 60 H ermann [Trileptal] 00 tab, 2 Refill(s), [facility] mg = 1 Memoria ne 300 MG 7-03 tab, PO, l Oral Tablet 18:01: BID, # 60 H ermann [Trileptal] 00 tab, 2 Refill(s), Pharmacy: [facility] Yes 100 mg = 1 Memori a topiramate 6-28 cap, PO, l 100 MG 14:50: Daily, # Ricardo Extended 00 30 cap, 3 Release Refill(s), Capsule Pharmacy: [[facility]] [facility] Yes 100 mg = 1 Memori a topiramate 6-28 cap, PO, l 100 MG 14:50: Daily, # Ricardo Extended 00 30 cap, 3 Release Refill(s), Capsule Pharmacy: [[facility]] [facility] Yes 100 mg = 1 Memori a topiramate 6-28 cap, PO, l 100 MG 14:50: Daily, # [place] Extended 00 30 cap, 3 Release Refill(s), Capsule Pharmacy: [[facility]] [facility] topiramate Yes 25 mg = 1 Me moria 25 MG Oral 6-14 tab, PO, l Tablet 23:33: BID, # 60 Murray n [Topamax] 00 tab, 2 Refill(s), Pharmacy: [facility] topiramate Yes 25 mg = 1 Me moria 25 MG Oral 6-14 tab, PO, l Tablet 23:33: BID, # 60 Murray n [Topamax] 00 tab, 2 Refill(s), Pharmacy: [facility] topiramate Yes 25 mg = 1 Me moria 25 MG Oral 6-14 tab, PO, l Tablet 23:33: BID, # 60 Murray n [Topamax] 00 tab, 2 Refill(s), Pharmacy: [facility] Phenytoin Yes 200 mg = 2 Me moria sodium 100 6-13 cap, PO, l MG Extended 13:57: BID, # 120 [place] Release 00 cap, 3 Capsule Refill(s), [Dilantin] Pharmacy: [facility] Phenytoin Yes 200 mg = 2 Me moria sodium 100 6-13 cap, PO, l MG Extended 13:57: BID, # 120 [place] Release 00 cap, 3 Capsule Refill(s), [Dilantin] Pharmacy: [facility] Phenytoin Yes 200 mg = 2 Me moria sodium 100 6-13 cap, PO, l MG Extended 13:57: BID, # 120 [place] Release 00 cap, 3 Capsule Refill(s), [Dilantin] Pharmacy: [facility] [place] Alprazolam Yes 0.5 mg = 1 M emoria 0.5 MG Oral 6-13 tab, PO, l Tablet 13:28: TID, 0 [place] [Xanax] 00 Refill(s) Zyrtec 20190 Yes Daily, 0 Memoria 6-13 Refill(s) l 13:28: Ricardo Alprazolam 2019-0 Yes 0.5 mg = 1 M emoria 0.5 MG Oral 6-13 tab, PO, l Tablet 13:28: TID, 0 [place] [Xanax] 00 Refill(s) Zyrtec 0 Yes Daily, [...] 1-15 by mouth. ity of tablet 00:00: [address] montelukast Yes 10mg Take 10 mg Univers 10 mg 1-15 by mouth. ity of tablet 00:00: [place] 00 [facility] Yes 10mg Take 10 mg Univers 10 mg 1-15 by mouth. ity of tablet 00:00: [facility] Yes 10mg Take 10 mg Univers 10 mg 1-15 by mouth. ity of tablet 00:00: [place] [id number] Yes 1{tbl} Take 1 Uni vers mg capsule 9-19 tablet by ity of 00:00: mouth [place] 00 daily. MD Taryn mitchell [place] [address] Yes 1{tbl} Take 1 Uni vers mg capsule 9-19 tablet by ity of 00:00: mouth [place] 00 daily. MD Taryn mitchell [place] [address] Yes 1{tbl} Take 1 Uni vers mg capsule 9-19 tablet by ity of 00:00: mouth [place] 00 daily. MD Taryn mitchell [place] [address] Yes 1{tbl} Take 1 Uni vers mg capsule 9-19 tablet by ity of 00:00: mouth [place] 00 daily. MD Taryn mitchell [place] [address] Yes 1{tbl} Take 1 Uni vers mg capsule 9-19 tablet by ity of 00:00: mouth [place] 00 daily. MD Taryn mitchell [facility] Flonase 50 Flonase 50 No 2{spray [...] 10 MG t_in_ 10 MG e_eveni ng} Linzess 145 Linzess [...] 10 MG t_in_ 10 MG e_eveni ng} Linzess 145 Linzess [...] MCG Loestrin Loestrin No 1{table QD Loestrin 1.5 (21) 1.5/30 (21) t} 1.5/30 1.5-30 1.5-30 [...] il} Loestrin Loestrin No 1{table QD Loestrin 1.5 [...] % Loestrin Loestrin No 1{table QD Loestrin 1.5 [...] QD Loestrin 1.5/30 (21) 1.5/30 (21) t} 1.530 1.5-30 1.5-30 (21) MG-MCG MG-MCG 1.5-30 MG-MCG [...] 10 MG t_in_ 10 MG e_eveni ng} Dicyclomine Dicyclomine No [...] ng} Loestrin Loestrin No 1{table QD Loestrin 1.5 (21) 1.5/30 (21) t} 1.5/30 1.5-30 1.5-30 (21) MG-MCG MG-MCG 1.5-30 MG-MCG Trileptal Trileptal No 1{table BID Trileptal 300 MG 300 MG t} 300 MG No known No Univers medications [facility] No known No Univers medications [facility] Immunizations Ordered Filled Immunization Date Status Comments [facility] e Immunization Name Name Fozia 2020-06-10 Completed [facility] 00:00:00 [facility] Fozia 2020-06-10 Completed [facility] 00:00:00 [facility] Fozia 2020-06-10 Completed [facility] 00:00:00 [facility] Fozia 2020-06-10 Completed [facility] 00:00:00 [facility] Fozia 2020-06-10 Completed [facility] 00:00:00 [facility] Fozia 2020-06-10 Completed [facility] 00:00:00 [facility] Fozia 2020-06-10 Completed [facility] 00:00:00 [facility] FLUCELVAX QUAD PF 2020-02-[address] 00:00:00 [facility] FLUCELVAX QUAD PF 2020-02-[address] 00:00:00 [facility] FLUCELVAX QUAD PF 2020-02-[address] 00:00:00 Hospital FLUCELVAX QUAD PF 2020-02-[address] 00:00:00 [facility] FLUCELVAX QUAD PF 2020-02-[address] 00:00:00 [facility] FLUCELVAX QUAD PF 2020-02-[address] 00:00:00 Hospital FLUCELVAX QUAD PF 2020-02-[address] 00:00:00 [facility] Kenalog Kenalog 2019-06-09 Completed [facility] - (Triamcinolone) (Triamcinolone) 09:57:00 [facility] Influenza Split Completed Universit y of 00:00:00 Jessica bryan [facility] Influenza Split Completed Universit y of 00:00:00 Jessica bryan [facility] Influenza Split Completed Universit y of 00:00:00 Jessica bryan [facility] Influenza Split Completed Universit y of 00:00:00 [facility] Influenza Split Completed Universit y of 00:00:00 Jessica bryan [facility] Vital Signs Vital Name Observation Time Observation Value Comments Source height 2022-01-09 11:20:00 66 [in_i] [facility] weight 2022-01-09 11:20:00 167 [lb_av] [facility] bmi 2022-01-09 11:20:00 26.95 kg/m2 [facility] height 2021-12-19 12:20:00 66 [in_i] [facility] weight 2021-12-19 12:20:00 164 [lb_av] [facility] bmi 2021-12-19 12:20:00 26.47 kg/m2 [facility] Systolic blood 2021-06-09 16:44:00 122 mm[Hg] Univer sity [facility] Diastolic blood 2021-06-09 16:44:00 83 [facility]Hg[facility] 2021-06-09 16:44:00 82 /min [facility] Body temperature 2021-06-09 16:44:00 36.83 [facility] Respiratory rate 2021-06-09 16:44:00 18 /min [facility] Body height 2021-06-09 16:44:00 167.6 cm [facility] Body weight 2021-06-09 16:44:00 78.608 kg [facility] BMI 2021-06-09 16:44:00 27.97 kg/m2 [facility] Oxygen saturation in 2021-06-09 16:44:00 98 /min [facility] Arterial blood by [facility] Pulse oximetry Branch [facility] 2021-05-16 11:00:00 66.5 [in_i] [facility] weight 2021-05-16 11:00:00 169 [lb_av] Common S pirit [facility] bmi 2021-05-16 11:00:00 26.87 kg/m2 Common [facility] Systolic blood 2021-03-16 15:58:00 114 mm[Hg] Univer sity of pressure [facility] Diastolic blood 2021-03-16 15:58:00 75 mm[Hg] Unive rsity of pressure [facility] Heart rate 2021-03-16 15:58:00 76 /min Universi ty of [facility] Body temperature 2021-03-16 15:58:00 36.78 Staci Univ ersity of [facility] Respiratory rate 2021-03-16 15:58:00 17 /min Univ ersity of [facility] Body height 2021-03-16 15:58:00 167.6 cm Universi ty of [facility] Body weight 2021-03-16 15:58:00 78.926 kg Universi ty of [facility] BMI 2021-03-16 15:58:00 28.08 kg/m2 Universi ty of [facility] Oxygen saturation in 2021-03-16 15:58:00 96 /min University of Arterial blood by [employer] Pulse oximetry Branch Systolic blood 2021-02-20 14:14:00 120 mm[Hg] Univer sity of pressure [facility] Diastolic blood 2021-02-20 14:14:00 79 mm[Hg] Unive rsity of pressure [facility] Heart rate 2021-02-20 14:14:00 74 /min Universi ty of [facility] Body temperature 2021-02-20 14:14:00 36.78 Staci Univ ersity of [facility] Respiratory rate 2021-02-20 14:14:00 16 /min Univ ersity of [facility] Body weight 2021-02-20 14:14:00 79.833 kg Universi ty of [facility] BMI 2021-02-20 14:14:00 30.21 kg/m2 Universi ty of [facility] Oxygen saturation in 2021-02-20 14:14:00 99 /min University of Arterial blood by Memorop conrad Pulse oximetry Branch height 2021-01-24 10:00:00 66.5 [in_i] Common [facility] weight 2021-01-24 10:00:00 172 [lb_av] Common S pirit [facility] bmi 2021-01-24 10:00:00 27.34 kg/m2 Common S [facility] Systolic blood 2020-12-05 03:35:00 121 mm[Hg] Univer sity of pressure [facility] Diastolic blood 2020-12-05 03:35:00 83 mm[Hg] Unive rsity of pressure [facility] Heart rate 2020-12-05 03:35:00 79 /min Universi ty of [facility] Oxygen saturation in 2020-12-05 03:35:00 100 /min University of Arterial blood by [facility] [place] [facility] Pulse oximetry Branch Body temperature 2020-12-05 01:16:00 37.11 Staci Univ ersity of [facility] Respiratory rate 2020-12-05 01:16:00 18 /min Univ ersity of [facility] Body height 2020-12-05 01:16:00 167.6 cm Universi ty of [facility] Body weight 2020-12-05 01:16:00 81.647 kg Universi ty of [facility] BMI 2020-12-05 01:16:00 29.05 kg/m2 Universi ty of [facility] Branch Systolic blood 2020-12-04 00:19:00 114 mm[Hg] Univer sity of [facility] Diastolic blood 2020-12-04 00:19:00 79 mm[Hg] Unive rsity of pressure [facility] Heart rate 2020-12-04 00:19:00 92 /min Universi ty of [facility] Body temperature 2020-12-04 00:19:00 37.17 Staci Univ ersity of [facility] Branch Respiratory rate 2020-12-04 00:19:00 18 /min Univ ersity of [facility] Body height 2020-12-04 00:19:00 167.6 cm Universi ty of [facility] Branch Body weight 2020-12-04 00:19:00 81.647 kg Universi ty [facility] BMI 2020-12-04 00:19:00 29.05 kg/m2 Universi ty [facility] Oxygen saturation in 2020-12-04 00:19:00 99 /min University of Arterial blood by [facility] [place] [facility] Pulse oximetry Branch Systolic (mm Hg) 2022-04-16 19:52:00 Unruly rial [place]ardo Diastolic (mm Hg) 2022-04-16 19:52:00 Mem orial [place] Heart Rate 2022-04-16 19:52:00 [facility]ardo Height 2022-04-16 19:52:00 5 [ft_i] [facility] Weight 2022-04-16 19:52:00 [facility] [place] BMI Calculated 2022-04-16 19:52:00 Memori al [place] Systolic (mm Hg) 2022-02-01 14:28:00 Unruly rial [place]ardo Diastolic (mm Hg) 2022-02-01 14:28:00 Mem orial [place] Heart Rate 2022-02-01 14:28:00 [facility] [place] Height 2022-02-01 14:28:00 5 [ft_i] [facility] [place] Weight 2022-02-01 14:28:00 [facility] [place]ardo BMI Calculated 2022-02-01 14:28:00 Memori al [place] Systolic (mm Hg) 2021-12-20 14:38:00 Unruly rial [place]ardo Diastolic (mm Hg) 2021-12-20 14:38:00 Mem orial [place] Heart Rate 2021-12-20 14:38:00 [facility] [place] Respitory Rate 2021-12-20 14:38:00 Memori al [place] Height 2021-12-20 14:38:00 167.64 cm Memorial [place] Weight 2021-12-20 14:38:00 [facility] [place] BMI Calculated 2021-12-20 14:38:00 Memori al [place] Height 2020-10-12 19:27:00 167.64 cm [facility] [place] Weight 2020-10-12 19:27:00 Memorial [place]ardo BMI Calculated 2020-10-12 19:27:00 Memori al [place] Systolic (mm Hg) 2020-10-12 19:27:00 Unruly rial Ricardo Diastolic (mm Hg) 2020-10-12 19:27:00 Mem orial [place] Heart Rate 2020-10-12 19:27:00 [facility] [place] Respitory Rate 2020-10-12 19:27:00 Memori al [place] Weight 2020-08-29 21:36:00 [facility] Systolic blood 2020-06-10 20:17:19 128 mm[Hg] [facility] pressure Diastolic blood 2020-06-10 20:17:19 68 mm[Hg] [facility] pressure Heart rate 2020-06-10 20:17:19 88 /min [facility] Body temperature 2020-06-10 20:17:19 36.11 Staci [facility] Respiratory rate 2020-06-10 20:17:19 16 /min [facility] Oxygen saturation in 2020-06-10 20:17:19 98 /min [facility] Arterial blood by Pulse oximetry Body height 2020-06-10 18:48:00 167.6 cm [facility] Body weight 2020-06-10 18:48:00 94.802 kg [facility] BMI 2020-06-10 18:48:00 33.73 kg/m2 [facility] Systolic (mm Hg) 2020-04-19 20:08:00 Unruly rial [facility]ardo Diastolic (mm Hg) 2020-04-19 20:08:00 [facility] [place] Heart Rate 2020-04-19 20:08:00 [facility] Respitory Rate 2020-04-19 20:08:00 [facility] [place] Height 2020-04-19 20:08:00 167.64 [facility] Weight 2020-04-19 20:08:00 [facility] [place] BMI Calculated 2020-04-19 20:08:00 Mem[facility] Systolic (mm Hg) 2020-03-29 20:19:00 Unruly rial [place] Diastolic (mm Hg) 2020-03-29 20:19:00 Mem [facility] Heart Rate 2020-03-29 20:19:00 [facility] Respitory Rate 2020-03-29 20:19:00 [facility] Height 2020-03-29 20:19:00 167.64 cm [facility] [place] Weight 2020-03-29 20:19:00 [facility] BMI Calculated 2020-03-29 20:19:00 [facility] Systolic (mm Hg) 2020-02-29 17:31:00 Unruly rial Ricardo Diastolic (mm Hg) 2020-02-29 17:31:00 Mem [facility] [place] Heart Rate 2020-02-29 17:31:00 [facility] [place] Respitory Rate 2020-02-29 17:31:00 [facility] [place] Height 2020-02-29 17:31:00 167.64 cm [facility] Weight 2020-02-29 17:31:00 [facility] [place] BMI Calculated 2020-02-29 17:31:00 [facility] Systolic (mm Hg) 2018-12-23 18:03:00 Unruly rial Ricardo Diastolic (mm Hg) 2018-12-23 18:03:00 Mem [facility] Heart Rate 2018-12-23 18:03:00 [facility] [place] Respitory Rate 2018-12-23 18:03:00 [facility] Height 2018-12-23 18:03:00 167.64 cm [facility] Weight 2018-12-23 18:03:00 [facility] [place] BMI Calculated 2018-12-23 18:03:00 [facility] BMI Calculated 2018-11-27 15:59:00 [facility] [place] Weight 2018-11-27 15:59:00 [facility] Height 2018-11-27 15:59:00 167.64 cm [facility] Heart Rate 2018-11-27 15:59:00 [facility] Respitory Rate 2018-11-27 15:59:00 [facility] [place] Systolic (mm Hg) 2018-11-27 15:59:00 Unruly rial Ricardo Diastolic (mm Hg) 2018-11-27 15:59:00 Mem [facility] [place] BMI Calculated 2018-10-16 14:19:00 [facility] Weight 2018-10-16 14:19:00 [facility] [place] Height 2018-10-16 14:19:00 167.64 cm [facility] Heart Rate 2018-10-16 14:19:00 [facility] [place] Respitory Rate 2018-10-16 14:19:00 Mem[facility] Systolic (mm Hg) 2018-10-16 14:19:00 Unruly rial [facility]ardo Diastolic (mm Hg) 2018-10-16 14:19:00 Mem [facility] [place] BMI Calculated 2018-10-01 13:18:00 [facility] [place] Weight 2018-10-01 13:18:00 [facility] Height 2018-10-01 13:18:00 167.64 cm [facility] Respitory Rate 2018-10-01 13:18:00 Avery hdz [place] Heart Rate 2018-10-01 13:18:00 Cassie [facility] Systolic (mm Hg) 2018-10-01 13:18:00 Unruly vang [place] Diastolic (mm Hg) 2018-10-01 13:18:00 Jc chicaswilder [place] Procedures Procedure Date / Time Performing Clinician Source Performed POCT MOLECULAR FLU 2021-06-09 17:02:00 Maddy Simms [facility] POCT MOLECULAR STREP 2021-06-09 16:56:00 Maddy Simms [facility] TYPE AND SCREEN 2021-03-30 17:04:00 Jori Long [facility] COMPLETE BLOOD COUNT W/ 2021-03-30 17:04:00 Jori Long [facility] DIFFERENTIAL [facility] TOTAL PROTEIN 2021-03-30 17:04:00 Jori Long [facility] ALBUMIN LEVEL 2021-03-30 17:04:00 [facility] 2021-03-30 17:04:00 Jori Long [facility] PHOSPHORUS LEVEL 2021-03-30 17:04:00 Ethan [facility] GLUCOSE, RANDOM 2021-03-30 17:04:00 Jori Long [facility] BLOOD UREA NITROGEN 2021-03-30 17:04:00 Jori Long [facility] SERUM CREATININE 2021-03-30 17:04:00 [facility]ID 2021-03-30 17:04:00 Jori Long [facility] FRACTIONATED BILIRUBIN 2021-03-30 17:04:00 Jori Long [facility] ALKALINE PHOSPHATASE 2021-03-30 17:04:[address] [facility] LACTATE DEHYDROGENASE 2021-03-30 17:04:00 Jori Long [facility] ALANINE AMINOTRANSFERASE 2021-03-30 17:04:00 Jori Long [facility] ELECTROLYTE PANEL 2021-03-30 17:04:00 Jori Long [facility] MAGNESIUM LEVEL 2021-03-30 17:04:00 Jori Long [facility] HP MD T(15;17) PML-LEN 2021-03-30 17:04:00 Jori Long [facility] QUANTITATIVE PCR [facility] cer COLLECTION, BLOOD Center ABORH 2021-03-30 17:04:00 Jori Long [facility] ANTIBODY SCREEN 2021-03-30 17:04:00 Jori Long [facility] Results CBC 2021-03-30 17:04:00 [facility] MANUAL DIFFERENTIAL 2021-03-30 17:04:00 Jori Long [facility] SERUM CREATININE 2021-03-30 17:04:00 Ethan [facility] .GLOMERULAR FILTRATION 2021-03-30 17:04:00 [facility] HP MD T(15;17) PML-LEN 2021-03-30 17:04:00 Jori Long [facility] QUANTITATIVE PCR [facility] cer INTERPRETATION AND REPORT Center CLOT EXPIRATION DATE 2021-03-30 17:04:[address] [facility] TMP INTERPRETATION 2021-03-30 17:04:00 Jori Long [facility] ANTIBODY SCREEN NEGATIVE MD [facility] POCT GRP A STREP 2021-03-16 16:11:00 Earle Iverson [facility] (MOLECULAR) Medical Branch XR CHEST 1 VW 2020-12-05 02:15:29 Ester [facility] CT ABDOMEN PELVIS W 2020-12-05 02:09:58 Ester [facility] CONTRAST [facility] POCT TEST 2020-12-05 01:31:00 Truong Norman [facility] LIPASE 2020-12-05 01:29:00 [facility] 2020-12-05 01:29:00 Ester [facility] COMP. METABOLIC PANEL 2020-12-05 01:29:00 Truong Norman [facility] ([id number]) [facility] CBC WITH DIFF 2020-12-05 01:29:00 Ester [facility] URINALYSIS 2020-12-05 01:29:00 Ester [facility] NOTICE OF PRIVACY 2020-12-05 01:06:38 Doctor Unassigned, No [facility] PRACTICES Name [facility] CONSENT/REFUSAL FOR 2020-12-05 01:05:01 Doctor Unassigned, No [facility] DIAGNOSIS AND TREATMENT Name [facility] POCT GRP A STREP 2020-12-04 00:42:00 Tessa Mendoza [facility] (MOLECULAR) [facility] MRI THORACIC SPINE W 2020-06-06 22:01:[address] [facility]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 2020-09-08 2020-09-08 Outpatient STLMLC STLMLC [id number] Common 00:00:00 00:00:00 [facility] 2020-09-07 2020-09-07 Outpatient STLMLC STLMLC [id number] Common 00:00:00 00:00:00 [facility] 2020-09-01 2020-09-01 Outpatient STLMLC STLMLC [id number] Common 00:00:00 00:00:00 [facility] 2020-08-29 2020-08-30 Outpatient nullFlavo MNA [id number] Memoria 20:45:00 04:59:59 r Neurology 13 l Ean Silva 2020-08-29 2020-08-30 Outpatient nullFlavo MNA [id number] Memoria 20:45:00 04:59:59 r Neurology 13 l Ean Silva 2020-08-29 2020-08-29 Outpatient [facility] Ch[facility] [id number] 15:45:00 23:59:59 David 13 Marck 2020-08-29 2020-08-29 Outpatient MHIE FAYEIE [id number] Memoria 15:45:00 15:45:00 13 matt Silva 2020-08-28 2020-08-28 Outpatient STLMLC STLMLC [id number] Common 00:00:00 00:00:00 [facility] 2020-08-15 2020-08-15 Outpatient STLMLC STLMLC [id number] Common 00:00:00 00:00:00 [facility] 2020-08-08 2020-08-08 Outpatient STLMLC STLMLC [id number] Common 00:00:00 00:00:00 [facility] 2020-08-08 2020-08-08 Outpatient STLMLC STLMLC [id number] Common 00:00:00 00:00:00 [facility] 2020-08-07 2020-08-07 Outpatient STLMLC STLMLC [id number] Common 00:00:00 00:00:00 [facility] 2020-07-26 2020-07-26 Outpatient STLMLC STLMLC [id number] Common 00:00:00 00:00:00 [facility] 2020-07-20 2020-07-20 Outpatient STLMLC STLMLC [id number] Common 00:00:00 00:00:00 [facility] 2020-07-10 2020-07-10 Outpatient STLMLC STLMLC [id number] Common 00:00:00 00:00:00 [facility] 2020-07-10 2020-07-10 Outpatient STLMLC STLMLC [id number] Common 00:00:00 00:00:00 [facility] 2020-07-06 2020-07-06 Outpatient STLMLC STLMLC [id number] Common 00:00:00 00:00:00 [facility] 2020-07-04 2020-07-04 Outpatient STLMLC STLMLC [id number] Common 00:00:00 00:00:00 [facility] 2020-06-30 2020-06-30 Outpatient STLMLC STLMLC [id number] Common 00:00:00 00:00:00 [facility] 2020-06-27 2020-06-27 Outpatient STLMLC STLMLC [id number] Common 00:00:00 00:00:00 [facility] 2020-06-20 2020-06-20 Outpatient STLMLC STLMLC [id number] Common 00:00:00 00:00:00 [facility] 2020-06-19 2020-06-19 Outpatient STLMLC STLMLC [id number] Common 00:00:00 00:00:00 [facility] 2020-06-14 2020-06-16 Outside nullFlavo MNA [id number] Memoria 21:54:19 05:59:59 Medical r Neurology 01 l Records Ean Silva 2020-06-14 2020-06-16 Outside nullFlavo MNA [id number] Memoria 21:54:19 05:59:59 Medical r Neurology 01 l Records Ean Silva 2020-06-14 2020-06-15 Outpatient MHMISCHER MHMISCHER [id number] 15:54:19 23:59:59 2020-06-12 2020-06-12 Outpatient STLMLC STLMLC [id number] Common 00:00:00 00:00:00 [facility] 2020-06-12 2020-06-12 Outpatient STLMLC STLMLC [id number] Common 00:00:00 00:00:00 [facility] 2020-06-10 2020-06-10 Mony Mane 1.2.840.1 [id number] Methodi 11:41:17 14:59:06 Marques Lobo 20548.1.[address] 3.430.2.7 Hospit a .3.353170 l .8 2020-06-10 2020-06-10 Travel 1.2.840.1 1.2.923.301 [id number] Methodi 00:00:00 00:00:[address] 3.430.2.7 0.2.7.3.698 Ho spita .3.753227 084.8 l .8 2020-06-10 2020-06-10 Valentina Florian 1.2.840.1 [id number] 0283 Methodi 00:00:00 00:00:00 Only Sue 34985.1.[address] 3.430.2.7 Hospit a .3.836647 l .8 2020-06-10 2020-06-10 Nely Farooq.2.840.1 [id number] Methodi 00:00:00 00:00:[address] 3.430.2.7 Hospit a .3.494021 l .8 2020-06-10 2020-06-10 Nely Maurer.2.840.1 [id number] 3415 Methodi 00:00:00 00:00:00 Only Sue 44393.1.[address] 3.430.2.7 Hospit a .3.840972 l .8 2020-06-09 2020-06-09 Outpatient STLMLC STLMLC [id number] Common 00:00:00 00:00:00 [facility] 2020-06-09 2020-06-09 Outpatient STLMLC STLC [id number] Common 00:00:00 00:00:00 [facility] 2020-06-04 2020-06-07 [facility] Caleb Umana 1.2.840.1 [id number] Methodi 00:56:00 14:30:00 Encounter Kanchan Downey 96512.1.[address] [facility] 3.430.2.7 Hospita .3.129423 l .8 2020-05-31 2020-06-01 Outpatient nullFlavo MNA [id number] Memoria 17:30:00 05:59:59 r Neurology 12 l Thurston Ricardo 2020-05-31 2020-06-01 Outpatient nullFlavo MNA [id number] Memoria 17:30:00 05:59:59 r Neurology 12 l Ean Ricardo 2020-05-31 2020-05-[address] [facility] [id number] 11:30:00 23:59:59 David Sharan Acharya 2020-05-31 2020-05-31 Ambulatory nullFlavo MNA [id number] Memoria 21:30:00 21:30:00 Pre-Reg r Neurology 11 l Ean Ricardo 2020-05-31 2020-05-31 Ambulatory nullFlavo MNA [id number] Memoria 21:30:00 21:30:00 Pre-Reg r Neurology 11 l Thurston Ricardo 2020-05-31 2020-05-31 Outpatient GILDA VO [id number] Memoria 15:30:00 15:30:00 11 l Ricardo 2020-05-31 2020-05-31 Outpatient ASIF Chung [facility] [id number] 15:30:00 15:30:00 David 11 Marck 2020-05-31 2020-05-31 Outpatient MHIE MHIE [id number] Memoria 11:30:00 11:30:00 12 l Ricardo 2020-04-19 2020-04-20 Outpatient nullFlavo MNA [id number] Memoria 20:00:00 05:59:59 r Neurology 10 l Thurston Ricardo 2020-04-19 2020-04-20 Outpatient nullFlavo MNA [id number] Memoria 20:00:00 05:59:59 r Neurology 10 l Thurston [place] 2020-04-19 2020-04-[address] [facility] [id number] 14:00:00 23:59:59 David 10 Marck 2020-04-19 2020-04-19 Outpatient MHIE MHIE [id number] Memoria 14:00:00 14:00:00 10 l Ricardo 2020-04-18 2020-04-18 Outpatient [facility] [id number] Common 00:00:00 00:00:00 [facility] 2020-04-11 2020-04-12 Outpatient nullFlavo MNA [id number] Memoria 16:00:00 05:59:59 r Neurology 09 l Thurston Ricardo 2020-04-11 2020-04-12 Outpatient nullFlavo MNA [id number] Memoria 16:00:00 05:59:59 r Neurology 09 l Thurston [place] 2020-04-11 2020-04-11 Outpatient DEDE ChungSCHER MISCHER [id number] 10:00:00 23:59:59 David 09 Marck 2020-04-11 2020-04-11 Outpatient MHIE MHIE [id number] Memoria 10:00:00 10:00:00 09 l Ricardo 2020-03-29 2020-03-30 Outpatient nullFlavo MNA [id number] Memoria 20:00:00 05:59:59 r Neurology 08 l Thurston [place] 2020-03-29 2020-03-30 Outpatient nullFlavo MNA [id number] Memoria 20:00:00 05:59:59 r Neurology 08 l Thurston [place] 2020-03-29 2020-03-29 Outpatient DEDE ChungSCHER M[facility]ISCHER [id number] 14:00:00 23:59:59 David 08 Marck 2020-03-29 2020-03-29 Outpatient MHIE GILDA [id number] Memoria 14:00:00 14:00:00 08 matt Ricardo 2020-03-22 2020-03-22 Outpatient STLMLC STLC [id number] Common 00:00:00 00:00:00 [facility] 2020-03-16 2020-03-16 Outpatient STLC STLC [id number] Common 00:00:00 00:00:00 [facility] 2020-03-08 2020-03-08 Office Isidro Ruby 1.2.840.1 [id number] Methodi 12:36:03 16:19:47 Visit Go 28049.1.[address] 3.430.2.7 Hospit a .3.298688 l .8 2020-03-08 2020-03-08 Travel 1.2.840.1 1.2.036.817 [id number] Methodi 00:00:00 00:00:[address] 3.430.2.7 0.2.7.3.698 Ho spita .3.342379 084.8 l .8 2020-03-07 2020-03-07 Outpatient STLMLC STLC [id number] Common 00:00:00 00:00:00 [facility] 2020-02-29 2020-03-01 Outpatient nullFlavo MNA [id number] Memoria 17:15:00 05:59:59 r Neurology 07 l Thurstonrosa Silva 2020-02-29 2020-03-01 Outpatient nullFlavo MNA [id number] Memoria 17:15:00 05:59:59 r Neurology 07 l Ean Silva 2020-02-29 2020-02-29 Outpatient FAYE ChungMISCHER MHMISCHER [id number] 11:15:00 23:59:59 David Ema Acharya 2020-02-29 2020-02-29 Outpatient GILDA VO [id number] Memoria 11:15:00 11:15:00 07 matt Silva 2020-02-21 2020-02-21 Outpatient STLMLC STLMLC [id number] Common 00:00:00 00:00:00 [facility] 2020-02-17 2020-02-17 Outpatient STLMLC STLMLC [id number] Common 00:00:00 00:00:00 [facility] 2020-02-12 2020-02-16 [facility] Jasmeet Benedict 1.2.840.1 [id number] Methodi 07:45:00 12:40:00 Encounter Yesi Maldonado 80960.1.[address] 3.430.2.7 Hospit a .3.706920 l .8 2020-02-15 2020-02-15 Ambulatory nullFlavo MNA [id number] Memoria 14:15:00 14:15:00 Pre-Reg r Neurology 06 l Thurston Ricardo 2020-02-15 2020-02-15 Ambulatory nullFlavo MNA [id number] Memoria 14:15:00 14:15:00 Pre-Reg r Neurology 06 l Thurston Ricardo 2020-02-15 2020-02-15 Outpatient MHIE IE [id number] Memoria 09:15:00 09:15:00 06 l Ricardo 2020-02-15 2020-02-15 Outpatient ASIF Chung [facility] [id number] 09:15:00 09:15:00 David Marck 2020-02-15 2020-02-15 Telephone Isidro Ruby 1.2.840.1 [id number] Methodi 00:00:00 00:00:[address] 3.430.2.7 Hospit a .3.029021 l .8 2020-02-13 2020-02-13 Orders Diogo Blandon 1.2.840.1 [id number] [id number] Methodi 00:00:00 00:00:[address] 3.430.2.7 Hospit a .3.592847 l .8 2020-02-11 2020-02-11 Telephone Isidro Ruby 1.2.840.1 [id number] Methodi 00:00:00 00:00:[address] 3.430.2.7 Hospit a .3.089155 l .8 2020-02-09 2020-02-09 Outpatient [facility] [id number] Common 00:00:00 00:00:00 [facility] 2020-02-03 2020-02-08 [facility] Kim Guevara 1.2.840.1 [id number] Methodi 14:30:00 18:40:00 Encounter Karen Pineda 86131.1.1 3 15 [facility] 3.430.2.7 Hospita .3.469266 l .8 2020-02-07 2020-02-07 Telephone Ricky, 1.2.840.1 [id number] Methodi 00:00:00 00:00:[address] 3.430.2.7 Hospit a .3.971914 l .8 2020-02-03 2020-02-03 Telephone García, 1.2.840.1 [id number] Methodi 00:00:00 00:00:[address] 3.430.2.7 Hospit a .3.605038 l .8 2020-01-17 2020-01-17 Outpatient [facility] [id number] Common 00:00:00 00:00:00 [facility] 2019-12-14 2019-12-14 [facility] [id number] Common 10:48:00 10:48:[address] [facility] 2019-11-23 2019-11-23 [facility] [id number] Common 09:00:00 09:00:[address] [facility] 2019-11-23 2019-11-23 [facility] [id number] Common 08:05:00 08:05:00 t [facility] [address] [facility] 2019-10-15 2019-10-15 [facility] [id number] Common 08:44:00 08:44:[address] [facility] 2019-09-07 2019-09-07 [facility] [id number] Common 11:56:00 11:56:00 t [facility] [address] [facility] 2019-08-13 2019-08-13 [facility] [id number] Common 10:20:00 10:20:[address] [facility] 2019-08-12 2019-08-12 [facility] [id number] Common 09:49:00 09:49:[address] [facility] 2019-06-15 2019-06-15 [facility] [id number] Common 15:24:00 15:24:[address] [facility] 2019-06-09 2019-06-09 [facility] [id number] Common 08:40:00 08:40:00 t [facility] [address] [facility] 2019-06-03 2019-06-03 [facility] [id number] Common 10:52:00 10:52:[address] [facility] 2019-05-28 2019-05-28 [facility] [id number] Common 16:20:00 16:20:[address] [facility] 2019-05-21 2019-05-23 Outside nullFlavo MNA [id number] Memoria 20:44:00 05:59:59 Medical r Neurology 00 l Records Ean Silva 2019-05-21 2019-05-23 Outside nullFlavo MNA [id number] Memoria 20:44:00 05:59:59 Medical r Neurology 00 l Records Ean Silva 2019-05-21 2019-05-22 Outpatient MHMISCHER MISCHER [id number] 14:44:00 23:59:59 00 2019-04-28 2019-04-28 Ambulatory nullFlavo MNA [id number] Memoria 19:00:00 19:00:00 Pre-Reg r Neurology 05 l Ean Silva 2019-04-28 2019-04-28 Ambulatory nullFlavo MNA [id number] Memoria 19:00:00 19:00:00 Pre-Reg r Neurology 05 l Thurston Ricardo 2019-04-28 2019-04-28 Outpatient FAYEIE LAURENCE [id number] Memoria 13:00:00 13:00:00 05 matt Silva 2019-04-28 2019-04-[address] [facility] [id number] 13:00:00 13:00:00 David Rick Marck 2019-01-01 2019-01-01 Out[facility] [id number] Common 15:32:00 15:32:[address] [facility] 2018-12-31 2018-12-31 [facility] [id number] Common 09:55:00 09:55:[address] [facility] 2018-12-30 2018-12-30 [facility] [id number] Common 13:25:00 13:25:[address] [facility] 2018-12-30 2018-12-30 Out[facility] [id number] Common 08:00:00 08:00:[address] [facility] 2018-12-29 2018-12-29 [facility] [id number] Common 09:42:00 09:42:[address] [facility] 2018-12-23 2018-12-24 Outpatient nullFlavo MNA [id number] Memoria 18:15:00 04:59:59 r Neurology 04 l Ean Silva 2018-12-23 2018-12-24 Outpatient nullFlavo MNA [id number] Memoria 18:15:00 04:59:59 r Neurology 04 l Ean Silva 2018-12-23 2018-12-23 Outpatient ASIF Chung MISCHER [id number] 13:15:00 23:59:59 David Catrina Acharya 2018-12-23 2018-12-23 Outpatient MHIE MHIE [id number] Memoria 13:15:00 13:15:00 04 matt Ricardo 2018-12-04 2018-12-04 Out[facility] [id number] Common 16:20:00 16:20:[address] [facility] 2018-11-30 2018-11-30 [facility] [id number] Common 10:08:00 10:08:00 [facility] 2018-11-27 2018-11-28 Outpatient nullFlavo MNA [id number] Memoria 15:45:00 04:59:59 r Neurology 03 l Ean Silva 2018-11-27 2018-11-28 Outpatient nullFlavo MNA [id number] Memoria 15:45:00 04:59:59 r Neurology 03 l Ean Silva 2018-11-27 2018-11-27 Outpatient Juliet MISCHER MISCHER [id number] 10:45:00 23:59:59 David Cecelia Acharya 2018-11-27 2018-11-27 Out[facility] [id number] Common 13:00:00 13:00:[address] [facility] 2018-11-27 2018-11-27 Outpatient MHIE MHIE [id number] Memoria 10:45:00 10:45:00 03 matt Silva 2018-10-29 2018-10-29 Out[facility] [id number] Common 10:40:00 10:40:[address] [facility] 2018-10-16 2018-10-17 Outpatient nullFlavo MNA [id number] Memoria 14:00:00 04:59:59 r Neurology 02 l Ean Silva 2018-10-16 2018-10-17 Outpatient nullFlavo MNA [id number] Memoria 14:00:00 04:59:59 r Neurology 02 l Ean Silva 2018-10-16 2018-10-[address] [facility] [id number] 09:00:00 23:59:59 David 02 Marck 2018-10-16 2018-10-16 Outpatient MHIE MHIE [id number] Memoria 09:00:00 09:00:00 02 matt Silva 2018-10-02 2018-10-03 Outpatient nullFlavo MNA [id number] Memoria 20:00:00 04:59:59 r Neurology 01 l Ean Silva 2018-10-02 2018-10-03 Outpatient nullFlavo MNA [id number] Memoria 20:00:00 04:59:59 r Neurology 01 matt Silva 2018-10-02 2018-10-02 Outpatient Annettemaxime MHMISCHER MISCHER [id number] 15:00:00 23:59:59 David 01 Marck 2018-10-02 2018-10-02 Outpatient MHIE MHIE [id number] Memoria 15:00:00 15:00:00 01 matt Ricardo 2018-10-01 2018-10-02 Outpatient nullFlavo MNA [id number] Memoria 13:15:00 04:59:59 r Neurology 00 l Ean Silva 2018-10-01 2018-10-02 Outpatient nullFlavo MNA [id number] Memoria 13:15:00 04:59:59 r Neurology 00 l Ean Silva 2018-10-01 2018-10-01 Outpatient DEDE ChungSCHER MISCHER [id number] 08:15:00 23:59:59 David 00 Marck 2018-10-01 2018-10-01 Outpatient MHIE MHIE [id number] Memoria 08:15:00 08:15:00 00 matt Silva 2018-09-30 2018-09-30 [facility] [id number] Common 13:00:00 13:00:00 t [employer] [address] [facility] 2018-08-31 2018-08-31 [facility] [id number] Common 11:00:00 11:00:00 t [employer] [address] [facility] 2018-07-27 2018-07-27 Out[facility] [id number] Common 13:54:00 13:54:[address] [facility] 2018-07-23 2018-07-23 Out[facility] [id number] Common 08:53:00 08:53:[address] [facility] 2018-07-23 2018-07-23 Out[facility] [id number] Common 08:15:00 08:15:[address] [facility] 2018-06-22 2018-06-22 [facility] [id number] Common 10:30:00 10:30:[address] [facility] 2018-05-04 2018-05-04 Out[facility] [id number] Common 12:00:00 12:00:[address] [facility] 2018-04-02 2018-04-02 [facility] [id number] Common 09:00:00 09:00:[address] [facility] Results Test Description Test Time Test Comments Results Result Comments Source SARS-COV-2(COVID19),NAAT 2021-06-12 00:00:00 Test Item Value Reference Range Interpretation Comme nts SARS-CoV-2 INTERPRETATION (test code = 68221-2) NEGATIVE SEE NO TE SOURCE (test code = 50606-6) NOT SPECIFIED POCT MOLECULAR [id number] 17:13:56 Test Item Value Reference Range Interpretation Comments POCT Molecular FluA (test code = Negative Negative 40094-6) POCT Molecular FluB (test code = Negative Negative 07114-1) Lab Interpretation (test code = Normal 31028-1) [facility] [id number] 17:04:30 Test Item Value Reference Range Interpretation Comments POCT Molecular Strep (test code = Negative Negative 37728-9) Lab Interpretation (test code = Normal 53967-3) [facility] Antibody Screen Negative 2021-03-31 02:35:52 Test Item Value Reference Range Interpretation Comments TMP Auto Neg At the present ABSC Interp time, patient (test code = plasma shows no FERN ANDO 7535) evidence of RBC OTONIEL,Dic tated by: alloantibodies. VALERIE FREDERICK,Dictat ed Date/Time: 03.21 20:35 PM 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 Transcribed Henrik e/Time: 03.30.2021 20:3 5 PM CSTElectronical ly Signed By: JUDE FREDERICK, on 03.30.2021 20:3 5 PM [facility] [id number] 02:35:52 Test Item Value Reference Range Interpretation Comments TMP Auto Neg At the present ABSC Interp time, patient (test code = plasma shows no FERN ANDO 7535) evidence of RBC OTONIEL,Dic tated by: alloantibodiheidi. VALERIE FREDERICK,Dictat ed Date/Time: 03.21 20:35 PM 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 Transcribed Henrik e/Time: 03.30.2021 20:3 5 PM CSTElectronical ly Signed By: JUDE FREDERICK, on 03.30.2021 20:3 5 PM [facility]ville[facility] Interpretation Antibody Screen [id number] 02:35:52 Test Item Value Reference Range Interpretation Comments TMP Auto Neg At the present ABSC Interp time, patient (test code = plasma shows no FERN ANDO 7535) evidence of RBC OTONIEL,Dic tated by: alloantibodies. VALERIE FREDERICK,Dictat ed Date/Time: 03.21 20:35 PM 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 Transcribed Henrik e/Time: 03.30.2021 20:3 5 PM CSTElectronical ly Signed By: JUDE FREDERICK on 03.30.2021 20:3 5 PM [facility]villeAntibody [id number] 21:46:12 Test Item Value Reference Range Interpretation Comments ABSC. (test code = 890-4) Negative ABSC [facility]villeAntib[facility] [id number] 21:46:12 Test Item Value Reference Range Interpretation Comments ABSC. (test code = 890-4) Negative ABSC [facility]villeAntibody [id number] 21:46:12 Test Item Value Reference Range Interpretation Comments ABSC. (test code = 890-4) Negative ABSC [facility]villeABORh2021-12-10 21:46:11 Test Item Value Reference Range Interpretation Comments ABORh. (test code = 882-1) A POS [facility]villeABORh2021-12-10 21:46:11 Test Item Value Reference Range Interpretation Comments ABORh. (test code = 882-1) A POS [facility]villeABORh2021-12-10 21:46:11 Test Item Value Reference Range Interpretation Comments ABORh. (test code = 882-1) A POS [facility] GreenvilleClot Expiration [id number] 21:45:59 Test Item Value Reference Range Interpretation Comments T & S Expiration (test code = 04/02/2021 5318) [facility]villeClot Expiration [id number] 21:45:59 Test Item Value Reference Range Interpretation Comments T & S Expiration (test code = 04/02/2021 5318) [facility]villeClot Expiration [id number] 21:45:59 Test Item Value Reference Range Interpretation Comments T & S Expiration (test code = 04/02/2021 5318) [facility] t(15;17) PML-LEN Quantitative PCR Collection, [id number] 19:40:53 Test Item Value Reference Range Interpretation Comments Molecular Diagnostics (Received) (test Yes code = 8400) [facility] t(15;17) PML-LEN Quantitative PCR Collection, [id number] 19:40:53 Test Item Value Reference Range Interpretation Comments Molecular Diagnostics (Received) (test Yes code = 8400) [facility]villeMD t(15;17) PML-LEN Quantitative PCR Collection, [id number] 19:40:53 Test Item Value Reference Range Interpretation Comments Molecular Diagnostics (Received) (test Yes code = 8400) [facility] GreenvilleFractionated [id number] 18:26:21 Test Item Value Reference Range Interpretation [...] above 28 g/L. [Automated message] The system AGNITiO generated this result transmitted ref erence range: <=1.2. T he reference range was not used to interpr et this result as normal/abnormal . Bili Direct (test <0.2 See_Comment Indocyanin e Green (ICG) code = 5094) may cause false ly elevated biliru bin results. Total and direct bilirubin must not be measured from s amples containing indo cyanine green. [Automat ed message] The Kudan stem which generated this result transmitted ref erence range: <=0.3 mg /dL. The reference range was not used to interpr et this result as normal/abnormal . Bili Indirect (test See Note 0.0-0.9 Unable t o calculate code = 5095) Indirect Biliru bin result due to some par ameters are outside rep ortable range [facility] GreenvilleFractionated [id number] 18:26:21 Test Item Value Reference Range Interpretation [...] above 28 g/L. [Automated message] The system AGNITiO generated this result transmitted ref erence range: [...] par ameters are outside rep ortable range [facility] GreenvilleFractionated [id number] 18:26:21 Test Item Value Reference Range Interpretation [...] above 28 g/L. [Automated message] The system AGNITiO generated this result transmitted ref erence range: [...] par ameters are outside rep ortable range [facility] GreenvilleGlucose, [id number] 18:26:19 Test Item Value Reference Range Interpretation Comments Glucose Random (test 62 mg/dL 70-199 L Effecti ve 11/15/15, code = 9360) the glucose reference intervals have been updated ba sed on [place] [employer] guidelines (Standards of Medical Care [...] Track Lab Interpretation Abnormal (test code = 29211-5) [facility]villeGlucose, [id number] 18:26:19 Test Item Value Reference Range Interpretation Comments Glucose Random (test 62 mg/dL 70-199 L Effecti ve 11/15/15, code = 9360) the glucose reference intervals have been updated ba sed on [place] [employer] guidelines (Standards of Medical Care [...] Track Lab Interpretation Abnormal (test code = 83655-8) [facility]villeGlucose, [id number] 18:26:19 Test Item Value Reference Range Interpretation Comments Glucose Random (test 62 mg/dL 70-199 L Effecti ve 11/15/15, code = 9360) the glucose reference intervals have been updated ba sed on [place] [employer] guidelines (Standards of Medical Care [...] Track Lab Interpretation Abnormal (test code = 97753-8) [facility] GreenvillePhosphorus [id number] 18:26:17 Test Item Value Reference Range Interpretation Comments Phosphorus (test code = 3.8 mg/dL 2.5-4.5 6817) HAL (test code = HAL) Schedule in Fast Track [facility] GreenvillePhosphorus [id number] 18:26:17 Test Item Value Reference Range Interpretation Comments Phosphorus (test code = 3.8 mg/dL 2.5-4.5 6817) HAL (test code = HAL) Schedule in Fast Track [facility] GreenvillePhosphorus [id number] 18:26:17 Test Item Value Reference Range Interpretation Comments Phosphorus (test code = 3.8 mg/dL 2.5-4.5 6817) HAL (test code = HAL) Schedule in Fast Track [facility] GreenvilleGlomerular Filtration Rate 2021-03-30 18:26:16 Test Item Value [...] Mildly to moderately decr eased GFR 45-593b Mo derately to severely dec reased GFR 30-444 Silvia rely decreased GFR 1 5-295 Kidney failure <15 [Automated mess age] The system which ge nerated this result tra nsmitted reference range : >=60 mL/min/1.73 sq. m. The reference range was not used to interpr et this result as normal/abnormal . HAL (test code Schedule in Fast = HAL) [facility] GlencoeGlomerular Filtration Rate 2021-03-30 18:26:16 Test Item Value [...] <15 [Automated mess age] The system which [employer] nerated this result tra nsmitted reference range : >=60 mL/min/1.73 sq. m. The reference range was not used to interpr et this result as normal/abnormal . HAL (test code Schedule in Fast = HAL) Track [facility] GlencoeGlomerular Filtration Rate 2021-03-30 18:26:16 Test Item Value [...] <15 [Automated mess age] The system which [employer] nerated this result tra nsmitted reference range : >=60 mL/min/1.73 sq. m. The reference range was not used to interpr et this result as normal/abnormal . HAL (test code Schedule in Fast = HAL) Track [facility] [id number] 18:26:15 Test Item Value Reference Range Interpretation [...] code Schedule in Fast = HAL) Track [facility] GreenvilleLDH2021-12-10 18:26:15 Test Item Value Reference Range Interpretation [...] code Schedule in Fast = HAL) Track [facility] GreenvilleLDH2021-12-10 18:26:15 Test Item Value Reference Range Interpretation [...] code Schedule in Fast = HAL) Track [facility] GreenvilleUric [id number] 18:26:14 Test Item Value Reference Range Interpretation Comments Uric Acid (test code = 3.4 mg/dL 2.4-5.7 7955) HAL (test code = HAL) Schedule in Fast Track [facility] GreenvilleUric [id number] 18:26:14 Test Item Value Reference Range Interpretation Comments Uric Acid (test code = 3.4 mg/dL 2.4-5.7 7955) HAL (test code = HAL) Schedule in Fast Track [facility] GreenvilleUric [id number] 18:26:14 Test Item Value Reference Range Interpretation Comments Uric Acid (test code = 3.4 mg/dL 2.4-5.7 7955) HAL (test code = HAL) Schedule in Fast Track [facility] GreenvilleCalcium [id number] 18:26:13 Test Item Value Reference Range Interpretation Comments Calcium Lvl (test code 8.8 mg/dL 8.4-10.2 = 5258) HAL (test code = HAL) Schedule in Fast Track [facility] GreenvilleCalcium [id number] 18:26:13 Test Item Value Reference Range Interpretation Comments Calcium Lvl (test code 8.8 mg/dL 8.4-10.2 = 5258) HAL (test code = HAL) Schedule in Fast Track [facility] GreenvilleCalcium [id number] 18:26:13 Test Item Value Reference Range Interpretation Comments Calcium Lvl (test code 8.8 mg/dL 8.4-10.2 = 5258) HAL (test code = HAL) Schedule in Fast Track [facility] GreenvilleTotal [id number] 18:26:12 Test Item Value Reference Range Interpretation Comments Total Protein (test 6.8 g/dL 6.4-8.3 code = 7649) HAL (test code = HAL) Schedule in Fast Track [facility] GreenvilleTotal [id number] 18:26:12 Test Item Value Reference Range Interpretation Comments Total Protein (test 6.8 g/dL 6.4-8.3 code = 7649) HAL (test code = HAL) Schedule in Fast Track [facility] GreenvilleTotal [id number] 18:26:12 Test Item Value Reference Range Interpretation Comments Total Protein (test 6.8 g/dL 6.4-8.3 code = 7649) HAL (test code = HAL) Schedule in Fast Track [facility] GreenvilleAlbumin [id number] 18:26:11 Test Item Value Reference Range Interpretation Comments Albumin Lvl (test 4.5 See_Comment [Automate d message] code = 4763) The system AGNITiO generated this result transmit leon reference range : 3.5 - 5.2 gm/dL. Th e reference range was not used to interpret this result as normal/abnormal . HAL (test code = Schedule in Fast HAL) Track [facility] GreenvilleAlbumin [id number] 18:26:11 Test Item Value Reference Range Interpretation Comments Albumin Lvl (test 4.5 See_Comment [Automate d message] code = 4763) The system AGNITiO generated this result transmit leon reference range : 3.5 - 5.2 gm/dL. Th e reference range was not used to interpret this result as normal/abnormal . HAL (test code = Schedule in Fast HAL) Track [facility] GreenvilleAlbumin [id number] 18:26:11 Test Item Value Reference Range Interpretation Comments Albumin Lvl (test 4.5 See_Comment [Automate d message] code = 4763) The system whic h generated this result transmit leon reference range : 3.5 - 5.2 gm/dL. Th e reference range was not used to interpret this result as normal/abnormal . HAL (test code = Schedule in Fast HAL) Track [facility] GreenvilleMagnesium [id number] 18:26:10 Test Item Value Reference Range Interpretation Comments Magnesium (test code = 2.2 mg/dL 1.6-2.6 6359) HAL (test code = HAL) Schedule in Fast Track [facility] GreenvilleMagnesium [id number] 18:26:10 Test Item Value Reference Range Interpretation Comments Magnesium (test code = 2.2 mg/dL 1.6-2.6 6359) HAL (test code = HAL) Schedule in Fast Track [facility] GreenvilleMagnesium [id number] 18:26:10 Test Item Value Reference Range Interpretation Comments Magnesium (test code = 2.2 mg/dL 1.6-2.6 6359) HAL (test code = HAL) Schedule in Fast Track [facility] GreenvilleElectrolyte [id number] 18:26:09 Test Item Value Reference Range Interpretation [...] CO2 (test code = 27 See_Comment [Automated 9844) message] The sy stem which generated this [...] code = Schedule in Fast HAL) Track [facility] GreenvilleElectrolyte [id number] 18:26:09 Test Item Value Reference Range Interpretation [...] code = Schedule in Fast HAL) Track [facility] GreenvilleElectrolyte [id number] 18:26:09 Test Item Value Reference Range Interpretation [...] CO2 (test code = 27 See_Comment [Automated 0943) message] The sy stem which generated this [...] code = Schedule in Fast HAL) Track [facility] GreenvilleAlkaline [id number] 18:26:08 Test Item Value Reference Range Interpretation Comments Alk Phos (test code = 69 U/L 35-104 4768) HAL (test code = HAL) Schedule in Fast Track [facility] GreenvilleAlkaline [id number] 18:26:08 Test Item Value Reference Range Interpretation Comments Alk Phos (test code = 69 U/L 35-104 4768) HAL (test code = HAL) Schedule in Fast Track [facility] GreenvilleAlkaline [id number] 18:26:08 Test Item Value Reference Range Interpretation Comments Alk Phos (test code = 69 U/L 35-104 4768) HAL (test code = HAL) Schedule in Fast Track [facility] GreenvilleAlanine [id number] 18:26:07 Test Item Value Reference Range Interpretation Comments ALT (test code 17 U/L See_Comment [Automated m essage] = 4705) The system [employer] generated this result transmitted ref erence range: <=33. Th e reference range was not used to int erpret this result as normal/abnormal . HAL (test code Schedule in Fast = HAL) Track [facility] GreenvilleAlanine [id number] 18:26:07 Test Item Value Reference Range Interpretation Comments ALT (test code 17 U/L See_Comment [Automated m essage] = 4705) The system [employer] generated this result transmitted ref erence range: <=33. Th e reference range was not used to int erpret this result as normal/abnormal . HAL (test code Schedule in Fast = HAL) Track [facility] GreenvilleAlanine Vvlryvplhyytgmqx1612-56-27 18:26:07 Test Item Value Reference Range Interpretation Comments ALT (test code 17 U/L See_Comment [Automated m essage] = 4705) The system AGNITiO generated this result transmitted ref erence range: <=33. Th e reference range was not used to int erpret this result as normal/abnormal . HAL (test code Schedule in Fast = HAL) Track [facility].Serum [id number] 18:26:06 Test Item Value Reference Range Interpretation Comments Creatinine (test code = 0.95 mg/dL 0.51-0.95 5399) HAL (test code = HAL) Schedule in Fast Track [facility].Serum Ukawggwpjn0831-06-20 18:26:06 Test Item Value Reference Range Interpretation Comments Creatinine (test code = 0.95 mg/dL 0.51-0.95 5399) HAL (test code = HAL) Schedule in Fast Track [facility].Serum [id number] 18:26:06 Test Item Value Reference Range Interpretation Comments Creatinine (test code = 0.95 mg/dL 0.51-0.95 5399) HAL (test code = HAL) Schedule in Fast Track [facility] GreenvilleBUN2021-12-10 18:26:04 Test Item Value Reference Range Interpretation Comments BUN (test code = 5055) 12 mg/dL - [facility] GreenvilleBUN2021-12-10 18:26:04 Test Item Value Reference Range Interpretation Comments BUN (test code = 5055) 12 mg/dL - [facility] GreenvilleBUN2021-12-10 18:26:04 Test Item Value Reference Range Interpretation Comments BUN (test code = 5055) 12 mg/dL - [facility] GreenvilleDifferential2021-12-10 17:28:47 Test Item Value Reference Range Interpretation Comments Neutrophil % (test 75.3 % 42.0-66.0 H code = 34290-0) Lymphocyte % (test 16.8 % 24.0-44.0 L code = 737-7) Monocyte % (test code 6.3 % 2.0-7.0 = 744-3) Eosinophil % (test 0.8 % 1.0-4.0 L code = 713-8) Basophil % (test code 0.5 % 0.0-1.0 = 707-0) IGRE % (test code = 0.3 % 0.0-0.4 IGRE % c ount 25786-5) includes Metamyelocytes, Myelocytes, and Promyelocytes. Neutrophil Abs (test 7.10 K/uL 1.70-7.30 code = 753-4) Lymphocyte Abs (test 1.59 K/uL 1.00-4.80 code = 732-8) Monocyte Abs (test 0.59 K/uL 0.08-0.70 code = 743-5) Eosinophil Abs (test 0.08 K/uL 0.04-0.40 code = 712-0) Basophil Abs (test 0.05 K/uL 0.00-0.10 code = 705-4) IG Abs (test code = 0.03 K/uL 0.00-0.04 23342-2) HAL (test code = HAL) Schedule in Fast Track Lab Interpretation Abnormal (test code = 30432-0) [facility] [id number] 17:28:47 Test Item Value Reference Range Interpretation Comments Neutrophil % (test 75.3 % 42.0-66.0 H code = 75301-2) Lymphocyte % (test 16.8 % 24.0-44.0 L code = 737-7) Monocyte % (test code 6.3 % 2.0-7.0 = 744-3) Eosinophil % (test 0.8 % 1.0-4.0 L code = 713-8) Basophil % (test code 0.5 % 0.0-1.0 = 707-0) IGRE % (test code = 0.3 % 0.0-0.4 IGRE % c ount 96959-7) includes Metamyelocytes, Myelocytes, and Promyelocytes. Neutrophil Abs (test 7.10 K/uL 1.70-7.30 code = 753-4) Lymphocyte Abs (test 1.59 K/uL 1.00-4.80 code = 732-8) Monocyte Abs (test 0.59 K/uL 0.08-0.70 code = 743-5) Eosinophil Abs (test 0.08 K/uL 0.04-0.40 code = 712-0) Basophil Abs (test 0.05 K/uL 0.00-0.10 code = 705-4) IG Abs (test code = 0.03 K/uL 0.00-0.04 21723-5) HAL (test code = HAL) Schedule in Fast Track Lab Interpretation Abnormal (test code = 80991-8) [facility] 17:28[facility]47 Test Item Value Reference Range Interpretation Comments Neutrophil % (test 75.3 % 42.0-66.0 H code = 25926-2) Lymphocyte % (test 16.8 % 24.0-44.0 L code = 737-7) Monocyte % (test code 6.3 % 2.0-7.0 = 744-3) Eosinophil % (test 0.8 % 1.0-4.0 L code = 713-8) Basophil % (test code 0.5 % 0.0-1.0 = 707-0) IGRE % (test code = 0.3 % 0.0-0.4 IGRE % c ount 66476-0) includes Metamyelocytes, Myelocytes, and Promyelocytes. Neutrophil Abs (test 7.10 K/uL 1.70-7.30 code = 753-4) Lymphocyte Abs (test 1.59 K/uL 1.00-4.80 code = 732-8) Monocyte Abs (test 0.59 K/uL 0.08-0.70 code = 743-5) Eosinophil Abs (test 0.08 K/uL 0.04-0.40 code = 712-0) Basophil Abs (test 0.05 K/uL 0.00-0.10 code = 705-4) IG Abs (test code = 0.03 K/uL 0.00-0.04 02098-7) HAL (test code = HAL) Schedule in Fast Track Lab Interpretation Abnormal (test code = 81215-5) [facility].KVW6270-86-38 17:28:40 Test Item Value Reference Range Interpretation [...] RDW-SD (test code = 40.1 fL 35.1-46.3 76584-2) RDW-CV (test code = 12.3 % 12.0-15.5 [...] Track Lab Interpretation Abnormal (test code = 33378-1) [facility].MVA9525-48-28 17:28:40 Test Item Value Reference Range Interpretation [...] RDW-SD (test code = 40.1 fL 35.1-46.3 20132-4) RDW-CV (test code = 12.3 % 12.0-15.5 [...] Track Lab Interpretation Abnormal (test code = 93210-5) [facility].EOL2038-39-12 17:28:40 Test Item Value Reference Range Interpretation [...] RDW-SD (test code = 40.1 fL 35.1-46.3 96399-6) RDW-CV (test code = 12.3 % 12.0-15.5 [...] Track Lab Interpretation Abnormal (test code = 57077-3) [facility] (MOLECULAR) 2021-03-16 16:11:00 Test Item Value Reference Range Interpretation Comments POCT GP A STREP (test negative Negative - code = 61936-9) Negative HAL (test code = HAL) accurate development and interpretation of all internal controls Lab Interpretation Normal (test code = 81003-3) [facility] W SJGQSTVJ4577-70-63 02:55:38 No acute abdominopelvic process. Preliminary Report [...] reviewed this study and agree with theabove report.[facility]ST 1 XY2236-10-42 02:48:05 No radiographic evidence of acute cardiopulmonary process. Preliminary Report Dictated by Resident:Maico Bonilla I, Nati Florence MD., have reviewed [...] have reviewed this study and agreewith theabove report.[facility] W0949-11-03 02:05:12 Test Item Value Reference Interpretation Comments Range TROPONIN I (test 0.014 ng/mL See_Comment [Automated code = 1424244559) message] The system which generated this result [...] biotin. Lab Interpretation Normal (test code = 26395-1) [facility]. METABOLIC PANEL (90431)2020-12-05 01:53:53 Test Item Value Reference Range Interpretation Comments NA (test code = 139 mmol/L 135-145 3277586781) K (test code = 3.7 mmol/L 3.5-5.0 4115095030) CL (test code = 109 mmol/L 98-108 H 8491358822) CO2 TOTAL (test code = 22 mmol/L 23-31 L 5089328906) AGAP (test code = 2-16 8097916121) BUN (test code = 17 mg/dL 7-23 9141535891) GLUCOSE (test code = 99 mg/dL 70-110 9255672584) CREATININE (test code = 1.14 mg/dL 0.50-1.04 H 2532070333) TOTAL BILI (test code = 0.3 mg/dL 0.1-1.5 2681897135) CALCIUM (test code = 8.7 mg/dL 8.6-10.6 4221161778) T PROTEIN (test code = 7.4 g/dL 6.3-8.2 3498897561) ALBUMIN (test code = 4.7 g/dL 3.5-5.0 3462042373) ALK PHOS (test code = 62 U/L 34-122 4988973068) ALTv (test code = 16 U/L 5-35 1742-6) AST(SGOT) (test code = 18 U/L 13-40 0226193597) eGFR (test code = mL/min/1.73m2 5858267172) HAL (test code = HAL) Association of [...] tests). Lab Interpretation Abnormal (test code = 51168-8) [facility] 01:53:12 Test Item Value Reference Range Interpretation Comments LIPASE (test code = 6851594000) 101 U/L 0-220 Lab Interpretation (test code = Normal 26510-4) [facility]IS2021-[facility]-17 01:52:17 Test Item Value Reference Range Interpretation Comments APPEARANCE (test code = Cloudy Clear A 1456529749) COLOR (test code = Yellow Yellow 1870891698) PH (test code = 4.8-8.0 2467325285) SP GRAVITY (test code = 1.003-1.030 0872806005) GLU U QUAL (test code = Normal Normal 6539427471) BLOOD (test code = Negative Negative 7014016927) KETONES (test code = Negative Negative 1117315101) PROTEIN (test code = Negative Negative 2887-8) UROBILIN (test code = 4.0 mg/dL Normal A 6353051335) BILIRUBIN (test code = Negative Negative 3810939938) NITRITE (test code = Negative Negative 2735295622) LEUK REKHA (test code = Negative Negative 4608030076) RBC/HPF (test code = See_Comment [Autom ated message] 7009945392) The system AGNITiO generated this result transmit leon reference range : 0 - 3 HPF. The refe rence range was not u sed to interpret th is result as normal/abnormal . WBC/HPF (test code = <1 See_Comment [Autom ated message] 8161491075) The system AGNITiO generated this result transmit leon reference range : 0 - 5 HPF. The refe rence range was not u sed to interpret th is result as normal/abnormal . BACTERIA (test code = Many Negative A 4266301876) MUCOUS (test code = Slight Negative LPF A 2834444346) AMORPHOUS (test code = Moderate Rare HPF A 7634918505) SQ EPITH (test code = HPF 5101523012) Lab Interpretation (test Abnormal code = 81693-9) [facility] WITH QZDV7335-19-84 01:42:11 Test Item Value Reference Range Interpretation Comments WBC (test code = See_Comment [Automated 2790-2) message] The sy stem which generated this [...] RDW-SD (test code = 41.1 fL 39.0-49.9 03520-5) RDW-CV (test code = 13.5 % 12.0-15.5 788-0) PLT (test code = See_Comment [Automated 777-3) message] The sy stem which generated this result transmitted reference range : 166 - 358 10*3/ ?L. The reference r gee was not used to interpret this result as normal/abnormal . MPV (test code = 12.3 fL 9.5-12.9 24843-7) NRBC/100 WBC (test See_Comment [Automat ed code = 5233164098) message] The system which generated this result transmitted reference range : 0.0 - 10.0 /100 WBCs. The refer ence range was not u sed to interpret th is result as normal/abnormal . NRBC x10^3 (test code <0.01 See_Comment [Auto mated = 4418404431) message] The s ystem which generated this result transmitted reference range : 10*3/?L. The reference range was not used to interpret this result as normal/abnormal . GRAN MAT (NEUT) % 54.5 % (test code = 770-8) IMM GRAN % (test code 0.40 % = 7506426028) LYMPH % (test code = 33.6 % 736-9) MONO % (test code = 8.5 % 5905-5) EOS % (test code = 2.4 % 713-8) BASO % (test code = 0.6 % 706-2) GRAN MAT x10^3(ANC) 2.69 10*3/uL 1.88-7.09 (test code = 2280979459) IMM GRAN x10^3 (test <0.03 0.00-0.06 code = 1256399943) LYMPH x10^3 (test code 1.66 10*3/uL 1.32-3.29 = 731-0) MONO x10^3 (test code 0.42 10*3/uL 0.33-0.92 = 742-7) EOS x10^3 (test code = 0.12 10*3/uL 0.03-0.39 711-2) BASO x10^3 (test code 0.03 10*3/uL 0.01-0.07 = 704-7) Lab Interpretation Abnormal (test code = 43324-9) [facility] QQZT2666-74-99 01:31:00 Test Item Value Reference Range Interpretation Comments POCT PREG (test code = 1605) negative On board controls acceptable with present C Line (test code = 3574) POCT PREG LOT # (test code = 3575) [id number] POCT PREG TEST DATE (test 04/20/22 code = 3576) Lab Interpretation (test code = Normal 19515-3) [facility] GRP A STREP (MOLECULAR)2020-12-04 00:43:00 Test Item Value Reference Range Interpretation Comments POCT GP A STREP (test code = Negative Negative - Negative 59424-4) Lab Interpretation (test code = Normal 26777-8) [facility] GRP A STREP (MOLECULAR)2020-12-04 00:43:00 Test Item Value Reference Range Interpretation Comments POCT GP A STREP (test code = Negative Negative - Negative 28474-2) Lab Interpretation (test code = Normal 92343-6) [facility] W Uswxcmlp4875-65-90 23:13:41EXAMINATION: MRI THORACIC SPINE W CONTRAST CLINICAL [...] significant spinal canal or neural foraminal stenosis.1M2RAD_PS02 [facility] Thoracic Spine W Lhqlfvrg7539-77-16 23:13:41EXAMINATION: MRI THORACIC SPINE W CONTRAST CLINICAL [...] significant spinal canal or neural foraminal stenosis.1M2RAD_PS02[facility] Cervical Spine W Phgcgmpl9523-00-33 23:08:17EXAMINATION: MRI CERVICAL SPINE W CONTRAST CLINICAL [...] spine abnormality identified. No enhancing lesion identified. [facility]-[id number] Interface, Radiology Results Incoming - 06/06/2020 5:11 [...] cervical spine abnormality identified. No enhancing lesion identified.HMSL-2TB2698V3UWodkrurjuHCA [facility] Healthcare [facility] Cervical Spine W Contrast 2020-06-06 23:08:17EXAMINATION: MRI [...] spine abnormality identified. No enhancing lesion identified. [facility] [id number] Interface, Radiology Results 06/06/2020 5:11 PM CST [...] cervical spine abnormality identified. No enhancing lesion identified.[facility]-[id number] [facility] Brain W Wo Vubbsxlh8882-79-12 22:41:58EXAMINATION: MRI BRAIN W WO CONTRAST CLINICAL [...] of demyelinating lesion or other acute intracranial abnormality.1M2RAD_PS02[facility] Brain W Wo Pczerghv4683-76-52 22:41:58EXAMINATION: MRI BRAIN W WO CONTRAST CLINICAL [...] other acute intracranial abnormality.1M2RAD_PS02[facility]CT Chest Wo Jqlhkqoh8745-66-22 18:08:03 EXAMINATION: CT CHEST WO CONTRAST HISTORY: [...] this is compatible with mild Covid pneumonia. [facility]-[id number] Interface, Radiology Results 06/06/2020 12:11 PM CST [...] findings, this is compatible with mild Covid pneumonia.[facility]-[id number] HospitalCT Chest Wo Fhqqxers7331-38-40 18:08:03EXAMINATION: CT CHEST WO CONTRAST HISTORY: COVID-19 [...] this is compatible with mild Covid pneumonia. [facility]-[id number] Interface, Radiology Results 06/06/2020 12:11 PM CST [...] findings, this is compatible with mild Covid pneumonia.[facility]1DS45717AUHrogutacvFreestone Medical Center dvcypto9215-54-82 18:51:05 Test Item Value Reference Range Interpretation Comments Urine culture (test SEE COMMENT Bacteriu kieran screen code = 5482120) negative. [facility] cehrcye5721-29-49 18:51:05 Test Item Value Reference Range Interpretation Comments Urine culture (test SEE COMMENT Bacteriu kieran screen code = 6049553) negative. [facility] bgutgvk4208-39-19 18:51:05 Test Item Value Reference Range Interpretation Comments Urine culture (test SEE COMMENT Bacteriu kieran screen code = 8177085) negative. [facility] RNA [Presence] in Respiratory specimen by SARI with probe caxcdhphx2098-20-76 18:31:32 Test Item Value Reference Range Interpretation Comments SARS-CoV-2 (COVID-19) RNA [Presence] Detected Not-Detected in Respiratory specimen by SARI with probe detection (test code = 14209-4) [facility] - YL4797-52-18 19:34:42Isidro Ruby MD - 05/24/2020 5:54 PM CST [facility] - DN0716-53-35 19:34:42LeIsidro poon MD - 05/24/2020 5:54 PM CST [facility] CenterAutomated Visual Field, Extended - ZB4635-57-43 19:34:39Isidro Ruby MD - 05/24/2020 5:54 PM CST [facility] CenterAutomated Visual Field, Extended - HY4860-60-41 19:34:39Isidro Ruby MD - 05/24/2020 5:54 PM CST [place] [address] [place] 1 Rtlboay4270-41-52 16:07:52 Test Item Value Reference Range Interpretation Comments SUPPLIER NAME (test XMED Oxygen and code = 6415) Medical SUPPLIER PHONE (test [phone] code = 6416) ORDER STATUS (test code Delivery Successful = 6417) DELIVERY NOTE (test code = 6419) REQUESTED DELIVEY DATE 02/16/2020 (test code = 6420) ITEM DESCRIPTION (test 3 in 1 Commode Qty : 1 code = 6423) ACTUAL DELIVERY DATE 02/16/2020 (test code = 6422) [facility]3 in 1 Ycvcktr7820-09-46 16:07:52 Test Item Value Reference Range Interpretation Comments SUPPLIER NAME (test XMED Oxygen and code = 6415) Medical SUPPLIER PHONE (test [phone] code = 6416) ORDER STATUS (test code Delivery Successful = 6417) DELIVERY NOTE (test code = 6419) REQUESTED DELIVEY DATE 02/16/2020 (test code = 6420) ITEM DESCRIPTION (test 3 in 1 Commode Qty : 1 code = 6423) ACTUAL DELIVERY DATE 02/16/2020 (test code = 6422) [facility] Mtpgzch6941-54-46 18:23:11Electromyogram and NCS ReportATRIUM [facility]INGS [facility] Neurological [address],[place], [place]: F : Patient: Snow Argueta Physician: [...] Site: Wrist Pk Lat (ms) Amp (uV)Stim Zfrd2bg dig 2.5 21.0 Sensory Nerve Study Right [...] EDB LatencyStim Site: Ankle ms F wave KAQ-JFQR-Sand Study Left Tibial NerveRec Site: AH LatencyStim [...] Left Tibial Nerve Right Tibial NerveEMG General Ihppfkw2842-93-57 18:23:11Electromyogram and NCS ReportATRIUM HEALTH KINGS [facility]OUNTAIN Neurological Frllcchno[address]Bsc[address],[place]: F : Patient: Snow Argueta Physician: Nicolasa [...] Site: Wrist Pk Lat (ms) Amp (uV)Stim Xeuv7wu dig 2.5 21.0 Sensory Nerve Study Right [...] Left Tibial Nerve Right Tibial NerveVisual evoked sbpzglzuqc0537-54-78 15:07:24 PATTERN REVERSAL VISUAL EVOKED POTENTIAL REPORT Patient Name: Snow Argueta Date of : 1985 Gender: female Date of Procedure: 02/14/2020 IndicationVision loss FindingsPattern reversal visual luis m ked potentials were obtained following independent left and right full field monocular stimulation. UmsG129 absolute latencies were 99.8 msec and 102.6 msec following independent left and right eye stimulation. All interpeak latencies and waveform morphologies were normal. ImpressionThis is a normal study. ICD10 Code/Diagnosis: R12Iqcgix evoked iwoikiejwi0582-36-59 15:07:24 PATTERN REVERSAL VISUAL EVOKED POTENTIAL REPORT Patient Name: Snow Argueta Date of : 1985 Gender: female Date of Procedure: 02/14/2020 IndicationVision loss FindingsPattern reversal visual evoked potentials were obtained following independent left and right full field monocular stimulation. JoiU710 absolute latencies were 99.8 msec and 102.6 msec following independent left and right eye stimulation. All interpeak latencies and waveform morphologies were normal. ImpressionThis is a normal study. ICD10 Code/Diagnosis: G35MRI Lumbar Spine W Wo Quwsxdld9009-37-24 16:16:59EXAMINATION: MRI LUMBAR SPINE W WO CONTRAST [...] the right. Recommend correlation to radiculopathy distribution. [facility]- [id number] Interface, Radiology Results Incoming - 02/13/2020 11:20 [...] on the right. Recommend correlation to radiculopathy distribution.[facility]-[id number] [facility] Healthcare Northwest Lumbar Spine W Wo Kwffvrsy3888-65-62 16:16:59EXAMINATION: MRI LUMBAR SPINE W WO CONTRAST [...] the right. Recommend correlation to radiculopathy distribution. [facility]- [id number] Interface, Radiology Results - 02/13/2020 11:20 AM [...] on the right. Recommend correlation to radiculopathy distribution.[facility]-[id number] [facility] Healthcare [facility] Brain Venogram 2020-02-13 14:57:03EXAM: MRI BRAIN VENOGRAM CLINICAL HISTORY: Headache chronic normal neuro exam TECHNIQUE: Head MR venogram using 2D tdvc-tk-evubmc technique with multi-planar MIP and 3D reconstruction. [...] neuro examTECHNIQUE: Head MR venogram using 2D yflf-dc-bkfpqo technique with multi- planar MIP and 3D [...] no definite evidence of dural sinus venous thrombosis.1M2RAD_PS01[facility] Brain Venogram 2020-02-13 14:57:03EXAM: MRI BRAIN VENOGRAM CLINICAL HISTORY: Headache chronic normal neuro exam TECHNIQUE: Head MR venogram using 2D clmm-bu-pucqol technique with multi-planar MIP and 3D reconstruction. 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 IV therapy Location: Left basilic Device Type: Non-valved Catheter Lumen(s): Single lumen Catheter size: 3 Fr Catheter to vein ratio: 24%MidLine Characteristics: Catheter Brand: THOMAS POST MIDLINE Internal Catheter Length (cm): 12 Total Catheter Length (cm): 12 Catheter Lot Number: [id number] Catheter Expiration Date: 2Procedure details: Landmarks identified: [...] immediate complications VENIPUNC NEED PHYS SKILL,DX [place] IL8002-09-33 15:39:11CFamilia hickey RN 02/08/2020 10:40 AMMidline Date/Time: [...] Vessel Size (mm): 5 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 IV therapy Location: Left basilic Device Type: Non-valved Catheter Lumen(s): Single lumen Catheter size: 3 Fr Catheter to vein ratio: 24%MidLine Characteristics: Catheter Brand: SL PROVENA MIDLINE Internal CatheterLength (cm): 12 Total Catheter Length (cm): 12 Catheter Lot Number: [id number] Catheter Expiration Date: 2Procedure details: Landmarks identified: [...] well, no immediate complicationsUs duplex venous upper pwaqjzqpt8334-82-92 03:03:00 Vascular Ultrasound Laboratory Upper Extremity Venous Report [address] [place] [address] Pat.Name: SNOW ARGUETA Pat.ID: [id number] .Date: 02/07/2020 Refer.MD: MICHAEL MADDOX MD Exam Time: 4:33:00 PM Study Type:UE Venous Height: 66in Weight: 220lb BSA: 2.08 m2 Age: 7 1985,34Y Sex: FEMALE Sonogrphr: Davis Vi, RVT Pat. Stat.:Inpatient Room: [address] Tape Vol: HV, CPT -4: 83009 Echo Event ID:[id number] Order ID: [id number] Reason for Study:Right arm pain and swelling. [...] FINDINGS: Signed 02/07/2020 10:03 PMChaz Obrien MD, RPVIInterface, Radiology Results In - 02/07/2020 10:03 PM CDTFormatting of this note might be different from theoriginal. [facility] Upper Extremity Venous Report [address] [place] [address] Pat.Name: SNOW ARGUETA Pat.ID: [id number] St.Date: 02/07/2020 Refer.: MICHAEL MADDOX MD Exam Time: 4:33:00 PM Study Type:UE Venous Height: 66in Weight: 220lb BSA: 2.08 m2 Age: 7 1985,34Y Sex: FEMALE Sonogrphr: Ryna Torres, GRECIAT Pat. Stat.:Inpatient Room: [address] Tape Vol: , CPT - 4: 53097 Echo Event ID:[id number] Order ID: [id number] Reason for Study:Right arm pain and swelling. [...] -------FINDINGS: Signed 02/07/2020 10:03 Yessi Obrien MD, RPVIOur [facility] of Peace Hospital duplex venous upper extremity 2020-02-08 03:03:00 Vascular Ultrasound Laboratory Upper Extremity Venous Report [id number] [address] Pat.Name: SNOW ARGUETA.ID: [id number] .Date: 02/07/2020 Refer.: MICHAEL MADDOX MDExstewart Time: 4:33:00 PM Study Type:UE Venous Height: 66in Weight: 220lb BSA: 2.08 m2 Age: 7 1985,34Y Sex: FEMALE Sonogrphr: Ryan TorresANGELIQUE Pat. Stat.:Inpatient Room: ZI60-4788-X Tape Vol: HV, CPT - 4:36097 Echo Event ID:[id number] Order ID: [id number] Reason for Study:Right arm pain and swelling. [...] NDINGS: Signed 02/07/2020 10:03 PMChaz Obrien MD, RPVIInterface, Radiology Results In - 02/07/2020 10:03 PM CDT Vascular Ultrasound Laboratory Upper Extremity Venous Report [address] [address] Pat.Name: SNOW ARGUETA.ID: [id number] St.Date: 02/07/2020 Refer.MD: MICHAEL MADDOX MD Exam Time: 4:33:00 PM Study Type:UE Venous Height: 66in Weight: 220lb BSA: 2.08 m2 Age: 7 1985,34Y Sex: FEMALE Sonogrphr: Davis Melissa, RVT Pat. Stat.:Inpatient Room: [address] Vol: ,CPT - 4: 33711 Echo Event ID:[id number] Order ID: [id number] Reason for Study:Right arm pain and swelling. [...] upper arm basilicvein. ------FINDINGS: Signed 02/07/2020 10:03 Yessi Obrien MD, RPVIMethodi HospitalFlow cytometry igmjgagxxr6004-71-46 14:52:18 Test Item Value Reference Range Interpretation Comments Case number (test code = [id number]) Flow cytometry evaluation See link below for (test code = 3169713) PDF Lab Report [facility] AllianceFlow cytometry zsmhflswho0512-32-00 14:52:18 Test Item Value Reference Range Interpretation Comments Case number (test code = [id number]) Flow cytometry evaluation See link below for (test code = 2048761) PDF Lab Report [facility] AllianceVENIPUNC NEED PHYS SKILL,DX [place] [id number] 14:18:07Javier Borjas RN 02/07/2020 9:21 AMMidline Date/Time: [...] Catheter Length (cm): 12 Catheter Lot Number: [id number] Catheter Expiration Date: 1Procedure details: Landmarks identified: [...] no immediate complicationsVENIPUNC NEED PHYS SKILL,DX [place] RG8722-16-64 14:18:07Javier Kolb RN 02/07/2020 9:21 AMMidline Date/Time: [...] to vein ratio: 41%MidLine Characteristics: Catheter Brand: SemiNex External Catheter Length (cm): 0 Internal Catheter Length (cm): 12 Total Catheter Length (cm): 12 Catheter Lot Number: [id number] Catheter Expiration Date: 1Procedure details: Landmarks identified: [...] tolerance of procedure: Tolerated well, no immediate complicationsECG 12 hihe7488-97-97 17:49:19 Test Item Value Reference Range Interpretation Comments Ventricular rate (test code = 253) Atrial rate (test code = 255) AK interval (test code = 266) QRSD interval [...] of 04-FEB-2020 04:50,-No significant change was found- [facility] HospitalECG 12 nmud1486-16-56 17:49:19 Test Item Value Reference Range Interpretation Comments Ventricular rate (test code = 253) Atrial rate (test code = 255) AK interval (test code = 266) QRSD interval [...] significant change was found- [facility] AllianceXR Chest 1 Xnpmwklv6245-46-01 03:09:52EXAMINATION: XR CHEST 1 VW PORTABLE CLINICAL HISTORY: 34 years Female chest pressure on exertion COMP ARISON: None. IMPRESSION: No acute cardiopulmonary disease. FINDINGS: The cardiomediastinal silhouette, lungs, and regional skeletal structures are within normal limits for age. [facility]ITALLR49UXDUFd Interface, Radiology Results Incoming 02/05/2020 10:12 PM CDT EXAMINATION: XR CHEST 1 PORTABLECLINICAL HISTORY: 34 years Female chest pressure onexertionCOMPARISON: None.IMPRESSION:No acute cardiopulmonary disease.FINDINGS:The cardiomediastinal silhouette, lungs, and regional skeletal structures are within normal limits for age. [facility]OSPITALOZ53AQQHQasvszoskSouth [facility] Chest 1 Vw Wspaxomi9155-28-64 03:09:52EXAMINATION: XR CHEST 1 PORTABLE CLINICAL HISTORY: 34 years Female chest pressure on exertion COMPARISON: None. IMPRESSION: No acute cardiopulmonary disease. FINDINGS: The cardiomediastinal silhouette, lungs, and regional skeletal structures are within normal limits for age. [facility]ITALXM80HMCQAt Interface, Radiology Results Incoming 02/05/2020 10:12 PM CDT EXAMINATION: XR CHEST 1 VW PORTABLECLINICAL HISTORY: 34 years Female chest pressure on exertionCOMPARISON: None.IMPRESSION:No acute cardiopulmonary disease.FINDINGS:The cardiomediastinal silhouette, lungs, and regional skeletal structures are within normal limits for age. [facility]ITALNG24PHLKGrsohmyvrWilbarger General Hospital Cytology (non-gynecological) byqqktg1276-82-84 23:15:16 Test Item Value Reference Range Interpretation Comments Case number (test code = [id number]) Cytology See link below for (non-gynecological) PDF Lab Report report (test code = 1178) Result status (test code This is Final Report = [id number]) for [id number] [facility] [facility] (non-gynecological) [id number] 23:15:16 Test Item Value Reference Range Interpretation Comments Case number (test code = [id number]) Cytology See link below for (non-gynecological) PDF Lab Report report (test code = 1178) Result status (test code This is Final Report = [id number]) for [id number] [facility] (routine)2020-02-04 15:51:25EEG AWAKE AND ASLEEP Date of Service: 02/04/2020 Awake Recording: The occipital dominant rhythm is 10-11 Hz. 18-22 Hz activity is present in all regions. Sleep Recording: No epileptiform activity was recorded. Hyperventilation: No abnormality elicited. Photic Stimulation: No abnormality elicited. Impression The background activity is within the range of normal variation. No lateralized or epileptiform activity was recorded. ICD-10 Code: J697CGA (routine)2020-02-04 15:51:25EEG AWAKE AND ASLEEP Date of [...] recorded. ICD-10 Code: R569IR Lumbar Puncture by [id number] 15:23:15EXAMINATION: IR LUMBAR PUNCTURE CLINICAL HISTORY: meningitis [...] Opening pressure was 21 cm of water. [facility]-[id number] Interface, Radiology Results 02/04/2020 10:26 AM CDT [...] puncture.Op ening pressure was 21 cm of water.[facility]-[id number] [facility] Lumbar Puncture by [id number] 15:23:15EXAMINATION: IR LUMBAR PUNCTURE CLINICAL HISTORY: meningitis [...] Opening pressure was 21 cm of water. [facility]-[id number] Interface, Radiology Results Incoming - 02/04/2020 10:26 [...] puncture.Op ening pressure was 21 cm of water.[facility]-[id number] [id number]-[id number] (COVID-19) RNA [Presence] in Respiratory specimen by SARI with probe detection 2020-02-04 05:23:12 Test Item Value Reference Range Interpretation Comments SARS-CoV-2 (COVID-19) RNA Not detected Not-Detected [Presence] in Respiratory specimen by SARI with probe detection (test code = 38545-1) [facility] Brain & Orbit W Wo [id number] 03:36:27 EXAMINATION: MRI BRAIN & ORBIT W [...] Unremarkable MRI of the brain and orbits. [facility]-[id number] Interface, RadiologyResults [facility] - 02/03/2020 10:39 PM CDT EXAMINATION: MRI [...] are preserved.IMPRESSION:Unremarkable MRI of the brain and orbits.[facility]-[id number] [facility] Brain & Orbit W Wo [id number] 03:36:27EXAMINATION: MRI BRAIN & ORBIT W WO [...] Unremarkable MRI of the brain and orbits. [facility]-[id number] Interface, RadiologyResults Incoming - 02/03/2020 10:39 PM [...] are preserved.IMPRESSION:Unremarkable MRI of the brain and orbits.[facility]-[id number] [facility] AllianceCT Head Wo [id number] 21:17:18EXAM: CT HEAD WO CONTRAST CLINICAL HISTORY: [...] intact.IMPRESSION:No CT evidence for acute intracranial abnormality.[id number] Head Wo [id number] 21:17:18EXAM: CT HEAD WO CONTRAST CLINICAL HISTORY: [...] are intact.IMPRESSION:No CT evidence for acute intracranial abnormality.[id number]
[2022-10-28 08:31] LABS: Absolute Lymphocytes (CBC) 0.6 K/uL (0.7-4.9); Hematocrit 32.3 % (36.0-45.0); Lymphocytes % 10.1 % (15.3-44.8); MCV 74.6 fL (80-100); MPV 9.9 fL (7.6-11.3); RBC Red Blood Cell Count 4.33 M/uL (3.86-4.86)
[2022-10-28 08:37] LABS: Specific Gravity 1.022 (1.005-1.030)
[2022-10-28 08:39] LABS: Specific Gravity 1.022 (1.005-1.030); Transitional Epithelial <5 /HPF (None Seen); Urine Bacteria None Seen /HPF (<20); Urine Bilirubin NEGATIVE (Negative); Urine Blood Negative (Negative); Urine Clarity Extremely Turbid (Clear); Urine Color Light-Yellow (Yellow); Urine Glucose NEGATIVE (Negative); Urine Mucus 2+ /HPF (None Seen); Urine Protein NEGATIVE (Negative); Urine RBC <5 /HPF (None Seen); Urine Urobilinogen Normal (Normal)
[2022-10-28] MEDS ORDERED: KETOROLAC 30 MG/ML INJ ONE (08:39)
[2022-10-28] MEDS ORDERED: NA CHLORIDE 0.9% 1,000 ML ONE (08:39)
[2022-10-28 08:45] LABS: ALT/SGPT 16 U/L (13-56); AST/SGOT 6 U/L (15-37); Albumin 3.6 g/dL (3.4-5.0); Alkaline Phosphatase 55 U/L (45-117); BUN Blood Urea Nitrogen 10 mg/dL (7-18); Bicarbonate 24 mEq/L (21-32); Bilirubin Total 0.3 mg/dL (0.2-1.0); Glomerular Filtration Rate 94 ml/min (=/>90); Glucose Level 108 mg/dL (74-106); Lipase 30 U/L (13-75); Protein, Total 6.9 g/dL (6.4-8.2); Sodium Level 136 mEq/L (136-145)
[2022-10-28 08:46] LABS: Troponin High Sensitivity < 3.0 pg/mL (<58.9)
[2022-10-28] MEDS ORDERED: PROMETHAZINE INJ 25 MG/ML AMP ONE (09:01)
[2022-10-28 09:05] LABS: SARS-CoV-2 Antigen Rapid Res Negative (Negative)
--- NOTE | 2022-10-28 09:19 | RAD REPORT ---
EXAM DESCRIPTION: RAD - Chest Pa And Lat (2 Views) - 10/28/2022 8:45 am CLINICAL HISTORY: CHEST PAIN COMPARISON: Chest Single View dated 02/10/2022; Chest Single View dated 05/10/2021; Chest Single View dated 06/19/2020; Chest Single View dated 06/15/2020 TECHNIQUE: PA and lateral views of the chest were obtained. FINDINGS: The lungs are clear. Heart size is normal and central vasculature is within normal limits. No pleural effusion or pneumothorax seen. No acute bony finding noted. IMPRESSION: No acute cardiopulmonary process.
--- NOTE | 2022-10-28 09:19 | RAD REPORT ---
EXAM DESCRIPTION: CT - Abdomen Pelvis W Contrast - 10/28/2022 8:40 am CLINICAL HISTORY: ABD PAIN COMPARISON: Abdomen Pelvis W Contrast dated 05/09/2022; Abdomen Pelvis W Contrast dated 10/14/2021 ; Abdomen Pelvis W Contrast dated 05/15/2021; Abdomen Pelvis W Contrast dated 05/11/2021 TECHNIQUE: Thin cut axial CT imaging of the abdomen and pelvis was performed following intravenous a dministration of 100 mL Isovue 300. Multiplanar reformats were generated and reviewed. All CT scans are performed using dose optimization technique as appropriate and may include automated exposure control or mA/KV adjustment according to patient size. FINDINGS: No suspicious findings in the lung bases. The liver, spleen, and pancreas show no suspicious findings. Status post cholecystectomy. Symmetric renal function is seen with no hydronephrosis or suspicious renal mass. Sub centimeter left lower pole cyst. No dilated bowel loops or bowel wall thickening. No free air, fluid collections, or inflammatory stra nding. No hernia, mass or bulky lymphadenopathy. The urinary bladder is without significant finding. Retroverted uterus. Trace free pelvic fluid. Marginally enhancing collapsed ovoid cystic lesion in th e left aspect of the pelvis measuring 2.2 centimeter. No suspicious bony findings. IMPRESSION: No acute intra-abdominal process. Marginally enhancing left adnexal 2.2 centimeter cystic lesion may represent a ruptured follicle. Tra ce pelvic fluid. Findings are likely physiologic. Please correlate clinically.
--- NOTE | 2022-10-28 09:34 | ER ---
Nurse's Notes [facility] Name: Snow Argueta Age: 36 yrs Sex: Female : 1985 Arrival Date: 10/28/2022 Time: 07:48 Bed 6 Private MD: Diagnosis: Dorsalgia, unspecified;Noninfective gastroenteritis and colitis, unspecified Presentation: 10/28 08:01 Chief complaint: Patient states: Low back pain, fells bloated , N/V/D, chills since ll1 Friday. In contact with covid . Slight nasal drainage, body aches, chills. Coronavirus screen: Vaccine status: Patient reports being unvaccinated. Client denies travel out of the [place] in the last 14 days. chills, congestion, fatigue, headache, nausea, vomiting. Client presents with at least one sign or symptom that may indicate coronavirus-19. Standard/surgical mask placed on the client. Ebola Screen: Patient denies travel to an Ebola-affected area in the 21 days before illness onset. Initial Sepsis Screen: Does the patient meet any 2 criteria? No. Patient's initial sepsis screen is negative. Does the patient have a suspected source of infection? Yes: Productive cough/pneumonia. Risk Assessment: Do you want to hurt yourself or someone else? Patient reports no desire to harm self or others. Onset of symptoms was October 26, 2022. 08:01 Method Of Arrival: Ambulatory ll1 08:01 Acuity: LEONEL 3 ll1 Triage Assessment: 08:06 General: Appears in no apparent distress. Behavior is calm, cooperative, appropriate ll1 for age. Pain: Complains of pain in low back Pain currently is 10 out of 10 on a pain scale. Quality of pain is described as aching. Neuro: Reports headache weakness. Cardiovascular: Reports fatigue, nausea. Respiratory: Reports pain with respiration. GI: Reports bloating, cramping, diarrhea, nausea, vomiting. Musculoskeletal: Reports pain in low back. Historical: - Allergies: 08:01 Cephalexin; ll1 08:01 Feraheme (Anaphylaxis); ll1 08:01 Gadavist; ll1 08:01 Latex, Natural Rubber; ll1 08:01 Zofran; ll1 - PMHx: 08:01 ADD/ADHD; Blood Clot on R arm; Endometrosis; epilepsy; GERD; Hypothyroidism; Leukemia; ll1 Lupus erythematosus; Pancreatitis; - PSHx: 08:01 Appendectomy; Cholecystectomy; Ligation of fallopian tube; ll1 - Immunization history:: Client reports having NOT received the Covid vaccine. - Social history:: Smoking status: Reported history of juuling and/or vaping. Screenin:00 [facility] ED Fall Risk Assessment (Adult) History of falling in the last 3 months, aa5 including since admission No falls in past 3 months (0 pts) Confusion or Disorientation No (0 pts) Intoxicated or Sedated No (0 pts) Impaired Gait No (0 pts) Mobility Assist Device Used No (0 pt) Altered Elimination No (0 pt) Score/Fall Risk Level 0 - 2 = Low Risk. Abuse screen: Denies threats or abuse. Nutritional screening: No deficits noted. Tuberculosis screening: No symptoms or risk factors identified. Assessment: 08:00 General: Appears uncomfortable, Behavior is calm, cooperative. Pain: Complains of pain aa5 in chest pain with inspiration and lower back pain (greater to right low back) Pain currently is 10 out of 10 on a pain scale. Quality of pain is described as aching. Neuro: Level of Consciousness is awake, alert, obeys commands, Oriented to person, place, time, situation. Cardiovascular: Heart tones S1 S2 present Rhythm is regular. Respiratory: Airway is patent Respiratory effort is even, unlabored, Respiratory pattern is regular, symmetrical, Breath sounds are clear bilaterally. GI: Abdomen is flat, non-distended, Bowel sounds present X 4 quads. Abd is soft and non tender X 4 quads. Reports diarrhea, nausea, vomiting. : Reports pain in lower back Denies burning with urination. EENT: No signs and/or symptoms were reported regarding the EENT system. Derm: Skin is pink, warm \T\ dry. Musculoskeletal: Range of motion: intact in all extremities. 10:22 Reassessment: Patient appears in no apparent distress at this time. No changes from ld1 previously documented assessment. Patient and/or family updated on plan of care and expected duration. Pain level reassessed. Patient is alert, oriented x 3, equal unlabored respirations, skin warm/dry/pink. Patient states feeling better. Vital Signs: 08:01 BP 115 / 77; Pulse 70; Resp 16; Temp 99.1; Pulse Ox 95% on R/A; Weight 77.11 kg; Height ll1 5 ft. 6 in. ; Pain 10/10; 09:00 BP 111 / 73; Pulse 70; Resp 16 S; Pulse Ox 100% on R/A; aa5 10:22 BP 115 / 76; Pulse 72; Resp 18; Pulse Ox 100% on R/A; Pain 2/10; ld1 08:01 Body Mass Index 27.44 (77.11 kg, 167.64 cm) ll1 08:01 Pain Scale: Adult ll1 10:22 Pain Scale: Adult ld1 ED Course: 07:50 Patient arrived in ED. mr 07:55 Arm band placed on Patient placed in an exam room, on a stretcher. ll1 07:56 Laurita Rothman, RN is Primary Nurse. aa5 08:00 Patient has correct armband on for positive identification. Placed in gown. Bed in low aa5 position. Call light in reach. Side rails up X2. Client placed on continuous cardiac and pulse oximetry monitoring. NIBP monitoring applied. 08:04 Latesha Birch PA-C is PHCP. sb4 08:04 Matthew Ramirez MD is Attending Physician. sb4 08:06 Triage completed. ll1 08:23 Inserted saline lock: 20 gauge in right antecubital area, using aseptic technique. ds4 Blood collected. 08:28 Test, Urine Sent. ds4 08:28 Urinalysis w/ reflexes Sent. ds4 08:28 CBC with Diff Sent. ds4 08:28 CMP Sent. ds4 08:28 Lipase Sent. ds4 08:29 Troponin High Sensitivity Sent. ds4 08:41 SARS-COV-2 Antigen Rapid Sent. ld1 08:41 Flu Sent. ld1 08:42 CT Abd/Pelvis - IV Contrast Only In Process Unspecified. EDMS 08:46 Chest Pa And Lat (2 Views) XRAY In Process Unspecified. EDMS 09:29 No provider procedures requiring assistance completed. Patient maintains SpO2 aa5 saturation greater than 95% on room air. 10:22 IV discontinued, intact, bleeding controlled, No redness/swelling at site. ld1 Administered Medications: 08:48 Drug: NS 0.9% IV 1000 ml Route: IV; Rate: 1 bolus; Site: right antecubital; aa5 08:48 Drug: TORadol - Ketorolac IVP 15 mg Route: IVP; Site: right antecubital; aa5 08:58 Drug: Promethazine IVP 12.5 mg Route: IVP; Site: right antecubital; aa5 09:43 Drug: fentaNYL (PF) IVP 25 mcg Route: IVP; Site: right antecubital; ld1 09:43 Drug: Decadron - Dexamethasone IVP 10 mg Route: IVP; Site: right antecubital; ld1 Medication: 09:29 VIS not applicable for this client. aa5 Outcome: 09:33 Discharge ordered by . sb4 10:22 Discharged to home ambulatory. ld1 10:22 Condition: stable 10:22 Discharge instructions given to patient, Instructed on discharge instructions, follow up and referral plans. medication usage, Demonstrated understanding of instructions, follow-up care, medications, Prescriptions given X 2. 10:22 Patient left the ED. ld1 Signatures: Dispatcher [employer] EDDC Love Kearney StephanLaurita, RN RN aa5 Jaime Oliva ds4 Duy Bautista RN RN ll1 Malgorzata Juarez RN RN ld1 Latesha Birch, PA-C PA-C sb4
--- NOTE | 2022-10-28 09:35 | EDPHYS ---
Physician Documentation [facility] Name: Snow Argueta Age: 36 yrs Sex: Female : 1985 Arrival Date: 10/28/2022 Time: 07:48 Bed 6 Private MD: ED Physician Matthew Ramirez HPI: 10/28 08:13 This 36 yrs old Female presents to ER via Ambulatory with complaints of Chest sb4 Pain, Back Pain, Vomiting. 08:13 36-year-old female with past medical history of leukemia in remission, lupus, epilepsy, sb4 GERD presents with complaints of nausea, vomiting, diarrhea, abdominal bloating, low back pain, body aches, generalized weakness, chest pain. She states that she was exposed to someone with COVID on and started feeling badly on Friday but everything got worse this morning. She denies fever, difficulty breathing, abdominal pain. Historical: - Allergies: 08:01 Cephalexin; ll1 08:01 Feraheme (Anaphylaxis); ll1 08:01 Gadavist; ll1 08:01 Latex, Natural Rubber; ll1 08:01 Zofran; ll1 - PMHx: 08:01 ADD/ADHD; Blood Clot on R arm; Endometrosis; epilepsy; GERD; Hypothyroidism; Leukemia; ll1 Lupus erythematosus; Pancreatitis; - PSHx: 08:01 Appendectomy; Cholecystectomy; Ligation of fallopian tube; ll1 - Immunization history:: Client reports having NOT received the Covid vaccine. - Social history:: Smoking status: Reported history of juuling and/or vaping. ROS: 08:13 : Negative for injury, bleeding, discharge, and swelling, Skin: Negative for injury, sb4 rash, and discoloration. 08:13 Constitutional: Positive for body aches, fatigue, malaise, Negative for fever. 08:13 Cardiovascular: Positive for chest pain, Negative for palpitations. 08:13 Respiratory: Positive for cough, Negative for shortness of breath. 08:13 All other systems are negative. Exam: 08:13 Constitutional: This is a well developed, well nourished patient who is awake, alert, sb4 and in no acute distress. Head/Face: Normocephalic, atraumatic. Eyes: Extra-ocular motions intact. Periorbital areas with no swelling, redness, or edema. Cardiovascular: Regular rate and rhythm with a normal S1 and S2. Respiratory: Lungs have equal breath sounds bilaterally, clear to auscultation and percussion. No rales, rhonchi or wheezes noted. No increased work of breathing, no retractions or nasal flaring. Abdomen/GI: Soft, non-tender, no distension. Back: No spinal tenderness. No costovertebral tenderness. Full range of motion. Skin: Warm, dry with normal turgor. Normal color with no rashes, no lesions, and no evidence of cellulitis. MS/ Extremity: Pulses equal, no cyanosis. Neurovascular intact. Full, normal range of motion. Neuro: Awake and alert, GCS 15, oriented to person, place, time, and situation. Cranial nerves II-XII grossly intact. Motor strength 5/5 in all extremities. Sensory grossly intact. Cerebellar exam normal. Normal gait. Vital Signs: 08:01 BP 115 / 77; Pulse 70; Resp 16; Temp 99.1; Pulse Ox 95% on R/A; Weight 77.11 kg; Height ll1 5 ft. 6 in. ; Pain 10/10; 09:00 BP 111 / 73; Pulse 70; Resp 16 S; Pulse Ox 100% on R/A; aa5 10:22 BP 115 / 76; Pulse 72; Resp 18; Pulse Ox 100% on R/A; Pain 2/10; ld1 08:01 Body Mass Index 27.44 (77.11 kg, 167.64 cm) ll1 08:01 Pain Scale: Adult ll1 10:22 Pain Scale: Adult ld1 MDM: 08:04 Patient medically screened. sb4 08:13 Differential diagnosis: viral Infection, bacterial infection, URI, bronchitis, sb4 pneumonia UTI, gastroenteritis. 09:32 Data reviewed: vital signs, nurses notes, lab test result(s), radiologic studies, CT sb4 scan, and as a result, I will discharge patient. I considered the following discharge prescriptions or medication management in the emergency department Antibiotics: At this time antibiotics are not recommended, Antivirals: At this time, antivirals are not recommended. Counseling: I had a detailed discussion with the patient and/or guardian regarding: the historical points, exam findings, and any diagnostic results supporting the discharge/admit diagnosis, lab results, radiology results, to return to the emergency department if symptoms worsen or persist or if there are any questions or concerns that arise at home. Medication response: Toradol partially relieved the patient's pain. 10/28 08:12 Order name: CBC with Diff; Complete Time: 08:51 sb4 10/28 08:12 Order name: CMP; Complete Time: 08:51 sb4 10/28 08:12 Order name: Lipase; Complete Time: 08:51 sb4 10/28 08:12 Order name: Test, Urine; Complete Time: 08:51 sb4 10/28 08:12 Order name: Urinalysis w/ reflexes; Complete Time: 08:51 sb4 10/28 08:12 Order name: Troponin High Sensitivity; Complete Time: 08:51 sb4 10/28 08:12 Order name: SARS-COV-2 Antigen Rapid; Complete Time: 09:16 sb4 10/28 08:12 Order name: Flu; Complete Time: 09:16 sb4 10/28 08:12 Order name: CT Abd/Pelvis - IV Contrast Only; Complete Time: 09:29 sb4 10/28 08:12 Order name: Chest Pa And Lat (2 Views) XRAY; Complete Time: 09:29 sb4 10/28 08:12 Order name: IV Saline Lock; Complete Time: 08:23 sb4 10/28 08:12 Order name: Labs collected and sent; Complete Time: 08:23 sb4 Administered Medications: 08:48 Drug: NS 0.9% IV 1000 ml Route: IV; Rate: 1 bolus; Site: right antecubital; aa5 08:48 Drug: TORadol - Ketorolac IVP 15 mg Route: IVP; Site: right antecubital; aa5 08:58 Drug: Promethazine IVP 12.5 mg Route: IVP; Site: right antecubital; aa5 09:43 Drug: fentaNYL (PF) IVP 25 mcg Route: IVP; Site: right antecubital; ld1 09:43 Drug: Decadron - Dexamethasone IVP 10 mg Route: IVP; Site: right antecubital; ld1 Disposition: 10:48 Co-signature as Attending Physician, Matthew Ramirez MD I reviewed the patient's care rn provided by the Advanced Practice Provider and agree with the diagnosis and treatment plan. Disposition Summary: 10/28/22 09:33 Discharge Ordered Location: Home sb4 Problem: new sb4 Symptoms: have improved sb4 Condition: Stable sb4 Diagnosis - Dorsalgia, unspecified sb4 - Noninfective gastroenteritis and colitis, unspecified sb4 Followup: sb4 - With: Emergency Department - When: - Reason: Fever > 102 F, Trouble breathing, Worsening of condition Discharge Instructions: - Discharge Summary Sheet sb4 - Acute Back Pain, Adult sb4 - Viral Gastroenteritis, Adult sb4 Forms: - Medication Reconciliation Form sb4 - Thank You Letter sb4 - Antibiotic Education sb4 - Prescription Opioid Use sb4 - [email or web address] sb4 Prescriptions: - Medrol (Joby) 4 mg Oral Tablets, Dose Pack - take 1 tablet by ORAL route as directed - follow package instructions; 1 sb4 packet; Refills: 0, Product Selection Permitted - promethazine 25 mg Oral Tablet - take 1 tablet by ORAL route every 6 hours As needed; 20 tablet; Refills: 0, sb4 Product Selection Permitted Signatures: Dispatcher [employer] Matthew Weston MD MD rn Calderon, Audri RN RN aa5 Duy Bautista RN RN ll1 Malgorzata Juarez RN RN ld1 Latesha Birch, PA-C PA-C sb4
[2022-10-28] MEDS ORDERED: dexAMETHasone 10 MG/ML VIAL ONE (09:49)
[2022-10-28] MEDS ORDERED: FENTANYL CITR 100 MCG/2 ML ONE (09:49)
[2022-10-28 10:34] VITALS: TEMP 99.1
[2022-10-28 10:35] VITALS: O2SAT 100
[2022-10-28 10:36] VITALS: BP 115/76
== END 2022-10-28 10:22 | disposition home or self-care (01) ==
LOC: ER 07:48
DX: M54.9 Dorsalgia, unspecified (principal); K52.9 Noninfective gastroenteritis and colitis, unspecified; R07.9 Chest pain, unspecified; Z20.822 Contact with and (suspected) exposure to COVID-19; Z85.6 Personal history of leukemia; Z88.1 Allergy status to other antibiotic agents; Z88.8 Allergy status to other drugs, medicaments and biological substances; Z91.040 Latex allergy status; Z91.048 Other nonmedicinal substance allergy status
CPT/HCPCS: 85025; 81001; 36415; 81025; 84484; 83690; 80053; 87804 ×2; 74177; 71046; 96375; 96374; 99285; 87811; Q9967; J2550; J3010; J1100; J7030